=== PATIENT | male | born 1960 | race Caucasian/White ===

== ENCOUNTER 2022-06-30 08:18 | Outpatient (CLI) | payer MEDICARE, BC, SELFPAY ==
--- OUTSIDE RECORDS SUMMARY | 2022-06-30 08:23 | XMS_ITS | Clinical Summary ---
:1960 Author Organization [facility] [place] [address] Care Team Providers Name Role Phone Hang Carpenter Primary Care Provider Allergies Active Allergy Reactions Severity Noted Date Comments Venom-Honey Bee Angioedema High 02/28/2018 Penicillins *Unknown - Pt Doesn't Remember Medium 02/12/2018 Medications Medication Sig Dispensed Refills Start Date End Date Status lactulose 10 Take 10 g by mouth 0 02/12/2018 Active gram/15 mL once daily. Patient solutionIndications taking 1/2 doses 3-4 : constipation times per day Indications: constipation Catheter USE DIRECTED 0 07/22/2019 Act cecilio (SELF-CATHETER, FEMALE) 14 Fr multivitamin (MVI) Take 1 Tab by mouth. 0 Active tablet warfarin (COUMADIN) Take 1 tablet (5 mg) 0 9 Active 5 mg tablet PO daily on Mon, Wed, Fri; take 1/2 tablet (2.5 mg) on all other days and as directed by Anticoagulation clinic warfarin (COUMADIN) Take 2.5 mg by mouth. 0 Active 2.5 mg tablet oxyCODONE Take 1 tablet by 12 tablet 0 08/01/2019 Ac tive (ROXICODONE) 5 mg mouth every 6 hours immediate release if needed for Pain tabletIndications: Kidney stone oxybutynin Take 1 tablet by 30 tablet 0 08/01/2019 A ctive (DITROPAN) 5 mg mouth 3 times daily tabletIndications: if needed. Kidney stone citalopram (CELEXA) daily. Take 1/2 a day 0 08/11/20 19 Active 20 mg tablet for the first ten days and then one a day thereafter for depression Active Problems Not on file Social History Tobacco Use Types Packs/Day Years Used Date Former Smoker Quit: 07/31/19 89 Smokeless Tobacco: Current User Alcohol Use Standard Drinks/Week Comments No 0 (1 standard drink = 0.6 oz pure alcoho l) Sex Assigned at Date Recorded Not on file Obstetrics History Last Filed Vital Signs Vital Sign Reading Time Taken Comments Blood Pressure 110/70 09/11/2019 3:11 PM PIPE OR STEAM FITTER FURNACE INSTALLER Pulse 90 09/11/2019 3:11 PM PIPE OR STEAM FITTER FURNACE INSTALLER Temperature 36.1 ??C (97 ??F) 08/01/2019 2:02 PM CDT Respiratory Rate 15 09/11/2019 3:11 PM PIPE OR STEAM FITTER FURNACE INSTALLER Oxygen Saturation 95% 09/11/2019 3:11 PM PIPE OR STEAM FITTER FURNACE INSTALLER Inhaled Oxygen Concentration - - Weight 84.8 kg (187 lb) 09/11/2019 3:11 PM PIPE OR STEAM FITTER FURNACE INSTALLER hospital weight Height 180.3 cm (5' 11) 08/01/2019 9:30 AM CDT Body Mass Index 26.08 08/01/2019 9:30 AM CDT Plan of Treatment Health Maintenance Due Date Last Done Comments COVID-19 vaccine series (#1) 1960 Tdap 1969 Depression screening for age 12+ 1970 Hepatitis C screening for age 18-79 1976 Tetanus booster 1978 Colonoscopy through age 75 2003 Lipids for age 45-75 2003 Zoster (shingles) series for age 50+ (1 of 2) 2008 BMI (ht and wt on same day) for age 18+ 02/12/2019 02/13/20 18 Influenza for age 50-64 06/01/2022 Medical Devices Implanted Type Area Journal Clerk Device Shelf Model / Identifier Expiration Date Ser ial / Lot Stent Uret [id number] Percuflex Hydroplus - [id number] Right : [facility] 07/29/2020 [id number] / Implanted: Qty: 1 on 03/04/2018 by Jordi Piedra MD at [facility] Ureter / [id number] Stent Uret [id number] Percuflex Hydroplus - [id number] Right : [facility] 02/23/2022 [id number] / Implanted: Qty: 1 on 08/01/2019 by Jordi Piedra MD at [facility] / [id number] Results Not on filefrom Last 3 Months Insurance Payer Benefit Plan / Subscriber ID Effective Dates Phone Addre ss Type Group MEDICARE PART B MEDICARE PART B [id number] 2009-Present ATTN: CLAIMS - HB USE ONLY HB ONLY [address] [facility] [place] [address] MEDICARE PART A MEDICARE PART A [id number] 2009-Present ATTN: CLAIMS - HB USE ONLY HB ONLY [address] [facility] [place] [address] MEDICARE - PB MEDICARE PB ONLY [id number] 2018-Present ATTN: CLAIMS USE ONLY [address] [facility] [place] [address] BLUE CROSS BLUE CROSS OF [id number] 2020-Presen [address] [facility] [place] [address] Advance Directives Latest Code Status on File Code Status Date Activated Date Inactivated Comments Full Code 08/01/2019 9:15 AM 08/01/2019 5:21 PM Full Code 03/04/2018 5:50 AM 03/04/2018 1:54 PM Care Teams Press Operator Relationship Specialty Start Date End Date Hang Carpenter PCP - General Family Practice 09/01/[address] [place] [address]
--- OUTSIDE RECORDS SUMMARY | 2022-06-30 08:23 | XMS_ITS | Encounter Summary ---
:1960 Author Organization [facility] Address [address] [place] [address] Care Team Providers Name Role Phone Adarsh Carpenter MD Primary Care Provider Encounter Details Date Type Department Care Team Description 05/29/2022 Telephone SE Antico/Internal Medicine Adarsh Francis MD - Third Floor [address] [facility] [address] [address], [place] [address] [phone] (Wo rk) Social History Tobacco Use Types Packs/Day Years Used Date Never Smoker Smokeless Tobacco: Former User Alcohol Use Standard Drinks/Week Comments No 0 (1 standard drink = 0.6 oz pure alcoho l) Alcohol Habits Answer Date Recorded How often do you have a drink containing Never 04/24/2022 alcohol? How many drinks containing alcohol do you have Patient does not drink 04/24/2022 on a typical day when you are drinking? How often do you have six or more drinks on one Never 04/24/2022 occasion? Comment: Not asked Social Isolation Answer Date Recorded In a typical week, how many times do you More than three vianey es a week 04/24/2022 talk on the phone with family, friends, or neighbors? How often do you get together with friends Twice a week 04/24/2022 or relatives? How often do you attend jewish or 1 to 4 times per year 04/01 holiness services? Do you belong to any clubs or No 04/24/2022 organizations such as jewish groups, unions, fraternal or athletic groups, or school groups? How often do you attend meetings of the Never 04/24/2022 clubs or organizations you belong to? Are you now , , , 04/24/2022 , never or living with a partner? Physical Activity Answer Date Recorded On average, how many days per week do you engage in moderate to 0 days 04/24/2022 strenuous exercise (like walking fast, running, jogging, dancing, swimming, biking, or other activities that cause a light or heavy sweat)? On average, how many minutes do you engage in exercise at th is 0 min 04/24/2022 level? Stress Answer Date Recorded Do you feel stress - tense, restless, nervous, or anxious, N ot at all 04/24/2022 or unable to sleep at night because your mind is troubled all the time - these days? Financial Resource Strain Answer Date Recorded How hard is it for you to pay for the very basics like Not h brian at all 04/24/2022 food, housing, medical care, and heating? Intimate Partner Violence Answer Date Recorded Within the last year, have you been afraid of your partner o r No 04/24/2022 ex-partner? Within the last year, have you been humiliated or emotionall y No 04/24/2022 abused in other ways by your partner or ex-partner? Within the last year, have you been kicked, hit, slapped, or No 04/24/2022 otherwise physically hurt by your partner or ex-partner? Within the last year, have you been raped or forced to have any No 04/24/2022 kind of sexual activity by your partner or ex-partner? Food Insecurity Answer Date Recorded Within the past 12 months, you worried that your food would Never true 04/24/2022 run out before you got money to buy more. Within the past 12 months, the food you bought just didn't N ever true 04/24/2022 last and you didn't have money to get more. Transportation Needs Answer Date Recorded In the past 12 months, has lack of transportation kept you f rom No 04/24/2022 medical appointments or from getting medications? In the past 12 months, has lack of transportation kept you f rom No 04/24/2022 meetings, work, or getting things needed for daily living? Housing Stability Answer Date Recorded In the last 12 months, was there a time when you were not ab le No 04/24/2022 to pay the mortgage or rent on time? In the last 12 months, how many places have you lived? 1 04/24/2022 In the last 12 months, was there a time when you did not hav e a No 04/24/[address] or slept in a custodial (including now)? Sex Assigned at Date Recorded Not on file documented as of this encounter Miscellaneous Notes Telephone Encounter - Elli Campbell PA-C - 05/29/2022 2:57 PM CDT I agree with your plan including NOT bridging. Telephone Encounter - Esteban Plasencia RN - 05/29/2022 2:25 PM CDT Grace-procedural recommendations: Patient is anticoagulated with warfarin for, hx of PE (2018.) Patient is scheduled for a colonoscopyon 06/16/22 at [facility] which is considered a moderate to unknown bleed risk depending on the need for biopsy. 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 Anticoagulation can be resumed the evening of the procedure unless otherwise directed by surgeon. ACC will instruct patient to check INR day before or day of procedure. Last INR was 2.5 on 05/24/2022 Please approve/amend. Thank you. documented in this encounter Plan of Treatment Not on filedocumented as of this encounter Visit Diagnoses Not on filedocumented in this encounter Additional Health Concerns Infection Onset Date Last Indicated Resolved Time MSSA 10/04/2018 10/04/2018 06/28/2022 8:27 AM CDT documented as of this encounter Care Teams Food Service Worker Hospital Relationship Specialty Start Date End Date Adarsh Carpenter MD PCP - General 05/07/[address] [place] [address] documented as of this encounter
--- OUTSIDE RECORDS SUMMARY | 2022-06-30 08:23 | XMS_ITS | Encounter Summary ---
:1960 Author Organization [facility] Address [address] [place] [address] Care Team Providers Name Role Phone Adarsh Carpenter MD Primary Care Provider Reason for Visit Reason Comments Med Refill Encounter Details Date Type Department Care Team Description 05/08/2022 Refill [place] Adarsh Carpenter, Multiple sclerosis (HCC) [address] [place], [place] [address] [phone] [place] [address] Social History Tobacco Use Types Packs/Day Years [...] or relatives? How often do you attend restorationism or 1 to 4 times per year 04/01 islam services? Do you belong to any clubs or No 04/24/2022 organizations such as restorationism groups, unions, fraternal or athletic groups, or [...] place to sleep or slept in a fdc (including now)? Sex Assigned at Date Recorded Not on file documented as of this encounter Miscellaneous Notes Telephone Encounter - Alison Packer MA - 05/10/2022 6:13 AM CDT Last visit in provider department: 04/24/22 Last visit requested medication was discussed: 04/24/22 Last Rx: 12/01/20, #270, 3 refills Requested Prescriptions Pending Prescriptions Disp Refills ??? baclofen (LIORESAL) 10 MG tablet [Pharmacy Med Name: BACLOFEN 10MG TABS] 270 tablet 3 Sig: TAKE ONE TABLET BY MOUTH THREE TIMES A DAY FOR MULTIPLE SCLEROSIS Vitals: BP Readings from Last 2 Encounters: 04/24/22 114/78 04/24/22 114/78 Upcoming appointment with provider: Visit date not found documented in this encounter Plan of Treatment Not on filedocumented as of this encounter Visit Diagnoses Diagnosis Multiple sclerosis (HCC) Multiple sclerosis documented in this encounter Additional Health Concerns Infection Onset Date Last Indicated Resolved Time MSSA 10/04/2018 10/04/2018 06/28/2022 8:27 AM CDT documented as of this encounter Care Teams Trench Digger Helper Relationship Specialty Start Date End Date Adarsh Carpenter MD PCP - General 05/07/[address] [place] [address] documented as of this encounter
--- OUTSIDE RECORDS SUMMARY | 2022-06-30 08:23 | XMS_ITS | Encounter Summary ---
:1960 Author Organization [facility] Address [address] [place] [address] Care Team Providers Name Role Phone Adarsh Carpenter MD Primary Care Provider Reason for Visit Reason Onset Date Comments coumadin questions prior to colonoscopy 05/11/2022 Encounter Details Date Type Department Care Team Description 05/11/2022 Telephone [place] Adarsh Carpenter coumadin questions prior [address] MD Hang to colonoscopy [place], [place] [address] [address] [address] [place] [phone] [place] [address] Social History Tobacco Use Types Packs/Day Years [...] or relatives? How often do you attend congregational or 1 to 4 times per year 04/01 quaker services? Do you belong to any clubs or No 04/24/2022 organizations such as congregational groups, unions, fraternal or athletic groups, or [...] place to sleep or slept in a halfway (including now)? Sex Assigned at Date Recorded Not on file documented as of this encounter Miscellaneous Notes Telephone Encounter - Anna Betts RN - 05/12/2022 9:35 AM CDT ACC noted and thank you for the update. We will call with instructions closer to the hold date and have noted this in our procedure calendar. ANGEL Castillo RN Telephone Encounter - Sofia Densno RN - 05/12/2022 9:34 AM CDT Please see patient questions. Telephone Encounter - Adarsh Carpenter MD - 05/12/2022 7:57 AM CDT The patient is managed by [facility] should be managing his Coumadin. Please forward this message to them and let the patient's know that someone from [facility] should be contacting them or discussing with Coumadin management at the time of his colonoscopy. If they do not reach the patient then the should contact them for advice. Telephone Encounter - Sofia Denson RN - 05/11/2022 3:53 PM CDT Please advise on coumadin use for colonoscopy. Telephone Encounter - Lalitha Pathak - 05/11/2022 1:36 PM CDT , Nelia, stated pt has upcoming colonoscopy in Jun. Instructed to be off Coumadin x5 days prior to procedure, but to check w/PCP also for advice. [phone]. documented in this encounter Plan of Treatment Not on filedocumented as of this encounter Visit Diagnoses Not on filedocumented in this encounter Additional Health Concerns Infection Onset Date Last Indicated Resolved Time MSSA 10/04/2018 10/04/2018 06/28/2022 8:27 AM CDT documented as of this encounter Care Teams Moving Worker Relationship Specialty Start Date End Date Adarsh Carpenter MD PCP - General 05/07/[address] [place] [address] documented as of this encounter
--- OUTSIDE RECORDS SUMMARY | 2022-06-30 08:23 | XMS_ITS | Encounter Summary ---
:1960 Author Organization [facility] Address [address] [place] [address] Care Team Providers Name Role Phone Adarsh Carpenter MD Primary Care Provider Reason for Visit Reason Onset Date Comments Neurology Referral 05/25/2022 Encounter Details Date Type Department Care Team Description 05/25/2022 [place], Neurology Referral [address] [place], [place] [address] [phone] [place] [address] (Wo rk) Social History Tobacco Use Types [...] or relatives? How often do you attend baptist or 1 to 4 times per year 04/01 lutheran services? Do you belong to any clubs or No 04/24/2022 organizations such as baptist groups, unions, fraternal or athletic groups, or [...] place to sleep or slept in a care home (including now)? Sex Assigned at Date Recorded Not on file documented as of this encounter Miscellaneous Notes Telephone Encounter - Adarsh Carpenter MD - 05/29/2022 5:15 PM CDT I called and talked to the physical medicine department at [facility]. They are going to call the patient and schedule him. Hopefully this will move forward. Telephone Encounter - Corina Graham RN - 05/26/2022 3:40 PM CDT Nurse spoke with spouse, Nelia. Nelia was wondering why she hasn't heard from neurology so when she was getting something fixed on patient's wheelchair at [facility], they advised this: (PCP already knows this maybe?): [facility] has agreement with [facility] that [facility] PCP can directly order from [facility] PhysicalMedicine Department (not neurology) for power chair using diagnosis of Multiple Sclerosis and comments of Seating Clinic Only. Please advise. Telephone Encounter - Veronica Glez - 05/26/2022 12:02 PM CDT Pt's Nelia called back as she had not from anyone yet. Nelia wanted to correct the initial message. This a referral done through [facility] to [facility], Physical Medicine Dept. (not Neurology). The diagnosis is MS, and in the comment section she was told to say for seating clinic only. Nelia said thegal she talked with at [facility] was very specific about this. Pleas call Nelia at [phone] to advise. Telephone Encounter - Lalitha Pathak - 05/25/2022 10:47 AM CDT Spouse, Nelia, , inquiring about referral to [facility] regarding power chair. She made some calls to someone in [facility] and stated there is a [facility] in [facility] to create a referral, etc., and had some instructions; letter? Please advise. documented in this encounter Plan of Treatment Not on filedocumented as of this encounter Visit Diagnoses Not on filedocumented in this encounter Additional Health Concerns Infection Onset Date Last Indicated Resolved Time MSSA 10/04/2018 10/04/2018 06/28/2022 8:27 AM CDT documented as of this encounter Care Teams Machine Whitener Relationship Specialty Start Date End Date Adarsh Carpenter MD PCP - General 05/07/[address] [place] [address] documented as of this encounter
--- OUTSIDE RECORDS SUMMARY | 2022-06-30 08:23 | XMS_ITS | Encounter Summary ---
:1960 Author Organization [facility] Address [address] [place] [address] Care Team Providers Name Role Phone Adarsh Carpenter MD Primary Care Provider Encounter Details Date Type Department Care Team Description 05/24/2022 Anticoagulation - SE Esteban Plasencia, skilled nursing current use of anticoagulant (Primary Dx); Warfarin Visit Anticoag/Internal RN Other pulmonary embolism without acute c or pulmonale, unspecified chronicity (HCC) Medicine - Third [address] [place] [address] Social History Tobacco Use Types Packs/Day Years [...] or relatives? How often do you attend rastafari or 1 to 4 times per year 04/01 hindu services? Do you belong to any clubs or No 04/24/2022 organizations such as rastafari groups, unions, fraternal or athletic groups, or [...] place to sleep or slept in a mcc (including now)? Sex Assigned at Date Recorded Not on file documented as of this encounter Progress Notes Esteban Plasencia RN - 05/24/2022 11:56 AM CDT Anticoagulation Clinic INR RESULTS: INR (no units) Date Value 05/24/2022 2.50 (A) DOSE PLAN: 2 mg tuesdays and saturdays. 4 mg all other days DOSE CHANGE: No change NEXT INR: 06/07/22 INR results not reviewed with patient. INR is within patient's goal range and dosing instructions have not been changed. Pt is a home liz. documented in this encounter Plan of Treatment Not on filedocumented as of this encounter Procedures Procedure Name Priority Date/Time Associated Diagnosis Comme nts PROTIME-INR Routine 05/24/2022 Results for thi s procedure are in the resu lts section. documented in this encounter Results (ABNORMAL) Protime-INR (05/24/2022) P athologist Signature INR 2.50 (A) 0.9 - 1.1 [facility] [employer] Protime [facility] [employer] Specimen (Source) Anatomical Location Collection Method / Collectio n Time Received Time / Laterality Volume Blood (Blood, Venous) Historical Provider LAB BLOOD ORDERABLES Performing Organization Address City/State/ZIP Code Phon e Number [facility] [employer] [address] [place] [address] documented in this encounter Visit Diagnoses Diagnosis skilled nursing current use of anticoagulant - Primary Other pulmonary embolism without acute c or pulmonale, unspecified chronicity (HCC) documented in this encounter Additional Health Concerns Infection Onset Date Last Indicated Resolved Time MSSA 10/04/2018 10/04/2018 06/28/2022 8:27 AM CDT documented as of this encounter Care Teams Bilingual Office Assistant Relationship Specialty Start Date End Date Adarsh Carpenter MD PCP - General 05/07/[address] [place] [address] documented as of this encounter
--- OUTSIDE RECORDS SUMMARY | 2022-06-30 08:23 | XMS_ITS | Encounter Summary ---
:[address] [facility] Address [address] [place] [address] Care Team Providers Name Role Phone Adarsh Carpenter MD Primary Care Provider Encounter Details Date Type Department Care Team Description 06/27/2022 Orders Only [place] Adarsh Carpenter Multiple sclerosis [address] [place] ([facility]) (Primary Dx) [place], [place] [address] [facility] [address] [place] [address] Social History Tobacco Use Types Packs/Day Years [...] or relatives? How often do you attend synagogue or 1 to 4 times per year 04/01 christian services? Do you belong to any clubs or No 04/24/2022 organizations such as synagogue groups, unions, fraternal or athletic groups, or [...] place to sleep or slept in a long-term (including now)? Sex Assigned at Date Recorded Not on file documented as of this encounter Plan of Treatment Not on filedocumented as of this encounter Visit Diagnoses Diagnosis Multiple sclerosis (HCC) - Primary Multiple sclerosis documented in this encounter Additional Health Concerns Infection Onset Date Last Indicated Resolved Time MSSA 10/04/2018 10/04/2018 06/28/2022 8:27 AM CDT documented as of this encounter Care Teams Territory Sales Consultant Relationship Specialty Start Date End Date Adarsh Carpenter MD PCP - General 05/07/[address] [place] [address] documented as of this encounter
--- OUTSIDE RECORDS SUMMARY | 2022-06-30 08:23 | XMS_ITS | Encounter Summary ---
:[address] [facility] Address [address] [place] [address] Care Team Providers Name Role Phone Adarsh Carpenter MD Primary Care Provider Encounter Details Date Type Department Care Team Description 05/10/2022 Anticoagulation - [place], custodial current use of anticoagulant (Primary Dx); Warfarin Visit Anticoag/Gilberto Castillo RN Other pulmonary embolism without acute c or pulmonale, unspecified chronicity (HCC) Medicine - Third [address] [place] [id number] Social History Tobacco Use [...] or relatives? How often do you attend mandaeism or 1 to 4 times per year 04/01 denominational services? Do you belong to any clubs or No 04/24/2022 organizations such as mandaeism groups, unions, fraternal or athletic groups, or [...] documented as of this encounter Progress Notes Anna Betts RN - 05/10/2022 12:09 PM CDT Anticoagulation Clinic INR RESULTS: INR (no units) Date Value 05/10/2022 2.70 (A) DOSE PLAN: 2mg every Tue, Sat; 4mg all other days DOSE CHANGE: No change NEXT INR: 05/24/22 INR results not reviewed with patient. INR is within patient's goal range and dosing instructions have not been changed. Patient is a home liz. documented in this encounter Plan of Treatment Not on filedocumented as of this encounter Procedures Procedure Name Priority Date/Time Associated Diagnosis Comme nts PROTIME-INR Routine 05/10/2022 Results for thi s procedure are in the resu lts section. documented in this encounter Results (ABNORMAL) Protime-INR (05/10/2022) P athologist Signature INR 2.70 (A) 0.9 - 1.1 HOME HEALTH POINT OF CARE TESTING Protime HOME HEALTH POINT OF CARE TESTING Specimen (Source) Anatomical Location Collection Method / Collectio n Time Received Time / Laterality Volume Blood (Blood, Venous) Historical Provider LAB BLOOD ORDERABLES Performing Organization Address City/State/ZIP Code Phon e Number HOME HEALTH POINT OF CARE TESTING documented in this encounter Visit Diagnoses Diagnosis custodial current use of anticoagulant - Primary Other pulmonary embolism without acute c or pulmonale, unspecified chronicity (HCC) documented in this encounter Additional Health Concerns Infection Onset Date Last Indicated Resolved Time MSSA 10/04/2018 10/04/2018 06/28/2022 8:27 AM CDT documented as of this encounter Care Teams Audit Machine Operator Relationship Specialty Start Date End Date Adarsh Carpenter MD PCP - General 05/07/[address] [place] [address] documented as of this encounter
--- OUTSIDE RECORDS SUMMARY | 2022-06-30 08:23 | XMS_ITS | Encounter Summary ---
:1960 Author Organization [facility] Address [address] [place] [address] Care Team Providers Name Role Phone Adarsh Carpenter MD Primary Care Provider Encounter Details Date Type Department Care Team Description 06/27/2022 Orders Only [place] Adarsh Carpenter MD [address] [place], [place] [address] [place], [place] [phone] (Wo rk) Social History Tobacco Use Types [...] or relatives? How often do you attend anabaptism or 1 to 4 times per year 04/01 congregational services? Do you belong to any clubs or No 04/24/2022 organizations such as anabaptism groups, unions, fraternal or athletic groups, or [...] documented as of this encounter Care Teams Ski Edge Painter Relationship Specialty Start Date End Date Adarsh Carpenter MD PCP - General 05/07/[address] [place] [address] documented as of this encounter
--- OUTSIDE RECORDS SUMMARY | 2022-06-30 08:23 | XMS_ITS | Encounter Summary ---
:1960 Author Organization [facility] Address [address] [place] [address] Care Team Providers Name Role Phone Adarsh Carpneter MD Primary Care Provider Reason for Visit Reason Comments Pre-op Exam DOS 06-16-2022 Encounter Details Date Type Department Care Team Description 05/29/2022 Consult [place] Adarsh Carpenter, Preop examination [address] [facility] [address] (Primary Dx) [place], [place] [phone] [facility] [address] [place] [phone] [place] [address] Social History Tobacco Use Types Packs/Day Years [...] or relatives? How often do you attend gnosticism or 1 to 4 times per year 04/01 muslim services? Do you belong to any clubs or No 04/24/2022 organizations such as gnosticism groups, unions, fraternal or athletic groups, or [...] on file documented as of this encounter Last Filed Vital Signs Vital Sign Reading Time Taken Comments Blood Pressure 115/72 05/29/2022 10:41 AM CDT Pulse 93 05/29/2022 10:41 AM CDT Temperature 36.5 ??C (97.7 ??F) 05/29/2022 10:41 AM CDT Respiratory Rate 19 05/29/2022 10:41 AM CDT Oxygen Saturation 98% 05/29/2022 10:41 AM CDT Inhaled Oxygen Concentration - - Weight - - Height - - Body Mass Index - - documented in this encounter Progress Notes DLatanya Carpenter MD - 05/29/2022 10:40 AM CDT Subjective Patient ID: Dwain Hinds is a 62 y.o. male. HPI the patient is here today for a PREOPERATIVE EVALUATION prior to getting scheduled for colonoscopy evaluation. COVID-19 he has not contracted COVID-19 he has received the primary immunization and 1 booster shot. The patient otherwise has had no significant accidents injuries or illnesses in the last year or so.However he has contracted at least 2 different UTIs that have been treated. SMOKING quit more than 20+ years ago ALCOHOL quit more than 40 years ago ALLERGIES to penicillin as well as to bee stings. MEDICATIONS Lipitor 20 mg once daily Baclofen 10 mg tablet 3 times a day Ditropan 5 mg tablet twice daily Coumadin as adjusted per INR. MEDICAL HISTORY MULTIPLE SCLEROSIS for greater than 20 years. He became wheelchair dependent in 2015 after losing all motor function below the waist as well as some sensory changes. He has a neurogenic bladder needs to self catheterize 4 times per day. His upper trunk muscular core strength is significantly weakened. Left upper extremity has movement but With loss of muscle strength along with loss of staging technician strength and dexterity. Right upper extremity is the strongest between the 2 and is able to eat with his right upper extremity help assist with movement and dressing changes and he can operate a joystick on a motorized wheelchair without difficulty. He does have a hospital bed that goes up and down and the head of the bed can be raised as well. He has had a couple incidences of UTIs and sepsis requiring hospitalization. He has had episodes of bladder stones that required treatment. He has not had any significant pressure sores. He has not seen a neurologist for quite some time as his disease is basically a slowly progressive and medications previously were of minimal benefit. 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 Neurogenic bladder Family history of colon cancer Wheelchair dependent History of sepsis with recurrent UTIs History of kidney stone/bladder stones Some hearing loss History of depression not on current treatment History of previous pressure sores but not the last number of years Spastic paraparesis Paraplegia Risk factors for obstructive sleep apnea SURGICAL HISTORY Tonsils and adenoidectomy Left arm fracture requiring bone grafting History of colon polyps based on colonoscopy History of kidney stone bladder stone removal He has a torito in his left femur secondary to traumatic fracture SOCIAL HISTORY he has been since 1977 4 children 11 grandchildren. 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 FAMILY HISTORY his mother at age 89 COPD and there was a history of colon cancer. His father was age 69 from heart disease. 3 brothers 1 sister living COLON CANCER SCREENING is currently scheduled IMMUNIZATIONS he is up-to-date with Covid 19 vaccine and will get the next one when it is due. He gets the flu shots yearly and is encouraged to do so this year. His tetanus status and pneumonia vaccinations are up-to-date. They have declined currently the shingles vaccine because of cost related issues. PSA SCREENING is done routinely Eye examinations/dental checkups done routinely CHRONIC ANTICOAGULATION patient has a history of a DVT plus pulmonary embolus secondary to his immobilization. He has been on chronic anticoagulant therapy therapeutic INR is as home testing and is managed by [facility] coagulation clinic. We have contacted the clinic and they will manage his Coumadin pre and post colonoscopy procedure. OBSTRUCTIVE SLEEP APNEA patient is high risk for obstructive sleep apnea though he does not tend to snore because he is generally sleeps in about a 30 degree upright position. Still recommend being checked for sleep apnea at some point in the future. RECURRENT UTIS AND SEPSIS have been noted he has had at least 2 culture proven infections that were sensitive to medications within the last 6 months. I believe is been approximately 2 years since he is been hospitalized for sepsis. MOTORIZED WHEELCHAIR the patient is dependent upon a motorized wheelchair to help more with his independence move around his home as well as outside the home. He has been operating 1 for a good 6 years. He has had no accidents or any particular issues with operation of his wheelchair. However his current wheelchair seems to be probably having a mechanical problem he has been told that because of the clicking sensation or sound that is happening from one of the motors that it will need to be replacedin a short period of time With his diagnosis of MS and with his current ability to continue to operate a motorized wheelchair safely he should be able to qualify from Medicare for replacement motorized wheelchair. We will work with the patient in getting this hopefully qualified for him. Review of Systems his current review of systems shows is not having problems with significant medical issues other than his underlying diagnosis. His hearing is decreased but not significant that requires hearing aids at this time. He should get scheduled for an eye evaluation within the next period of time. No recent fevers chills coughs or colds no shortness of breath or chest pain no nausea or throwing up no appetite disturbance Does periodically have a history of constipation that is responsive to medical management. No significant aches or pains lumps or bumps or skin changes Objective Physical Exam is alert appears comfortable answers questions appropriately. Blood pressure 115/72 Pulse 90 regular rate and rhythm Temp is 97.9 Weight was not measured today his last weight was about 186 pounds O2 sats 98% Ears were clear free of erythema cerumen Pupils equal reactive conjunctiva clear Tongue is moist throat is clear dentition okay His oral cavity is somewhat obstructed by his tongue Neck no adenopathy or thyromegaly carotid bruits or masses Lungs are clear without any wheeze rales or rhonchi Cardiac is regular rate and rhythm without heart murmur Abdomen soft nontender bowel tones present no apparent masses Extremities have minimal edema at this time No labs are needed at this time. Assessment/Plan Diagnoses and all orders for this visit: Preop examination The overall assessment is preoperative evaluation prior to elective colonoscopy procedure. His colonoscopy team in [place] other ones were prescribing his preparation and the prep sheet has been given to him previously. [facility] has been contacted and they will manage his INR's his Coumadin and his Lovenox treatmentas he will need to come off his Coumadin prior to the procedure but resume postprocedure. PHYSICAL MEDICINE[facility] at [facility] contacted and they will work with the patient to get him set up for evaluation for a new wheelchair. The patient is given SURGICAL CLEARANCE to have his colonoscopy procedure done under anesthesia of choice. Corina Graham RN - 05/29/2022 10:40 AM CDT Please fax per PCP request to [facility]. Lalitha Pathak - 05/29/2022 10:40 AM CDT Faxed to [facility] referral line, pre-op evaluation for colonoscopy documented in this encounter Plan of Treatment Not on filedocumented as of this encounter Visit Diagnoses Diagnosis Preop examination - Primary Unspecified pre-operative examination documented in this encounter Additional Health Concerns Infection Onset Date Last Indicated Resolved Time MSSA 10/04/2018 10/04/2018 06/28/2022 8:27 AM CDT documented as of this encounter Care Teams Optometric Aide Relationship Specialty Start Date End Date Adarsh Carpenter MD PCP - General 05/07/[address] [place] [address] documented as of this encounter
--- OUTSIDE RECORDS SUMMARY | 2022-06-30 08:23 | XMS_ITS | Encounter Summary ---
:1960 Author Organization [facility] Address [address] [place] [address] Care Team Providers Name Role Phone Adarsh Carpenter MD Primary Care Provider Reason for Visit Reason Onset Date Comments uti protocol 05/01/2022 Encounter Details Date Type Department Care Team Description 05/01/2022 Telephone [place] Adarsh Carpenter MD uti protocol [address] [place], [place] [address] [place], [place] [phone] (Wo rk) Social History Tobacco Use Types [...] or relatives? How often do you attend confucianism or 1 to 4 times per year 04/01 yarsani services? Do you belong to any clubs or No 04/24/2022 organizations such as confucianism groups, unions, fraternal or athletic groups, or [...] this encounter Miscellaneous Notes Telephone Encounter - Lalitha Pathak - 05/01/2022 4:47 PM CDT Spouse called back; bringing in urine sample around 9:30 on 05.02.22; on lab schedule. Telephone Encounter - Laltiha Pathak - 05/01/2022 3:27 PM CDT LMTCB to make lab appt only. Telephone Encounter - Sofia Denson RN - 05/01/2022 3:07 PM CDT Please call to schedule lab only. Dr. Carpenter will call with results. Telephone Encounter - Adarsh Carpenter MD - 05/01/2022 2:53 PM CDT Orders have been placed for both a UC and UA. Telephone Encounter - Sofia Denson RN - 05/01/2022 2:07 PM CDT Patient is male and unable to do UTI protocol, please advise on symptoms. Telephone Encounter - Mabel Loomis - 05/01/2022 12:38 PM CDT Pt's Spouse Nelia is requesting to see if the pt could bring a sample in tomorrow. Pt is having a foulorder with his urine, and cloudiness. This has been going on for a few days. Please call her back [phone]. Thanks. documented in this encounter Plan of Treatment Not on filedocumented as of this encounter Results Urine culture (05/02/2022 9:16 AM CDT) SaltStack Method Time Signature Urine Culture Mixed 05/03/2022 [place], no 7:33 AM CDT [facility] further ID. LABORATORY Specimen Anatomical Collection Method Collection Time Receive d Time (Source) Location / / Volume Laterality Urine (Urine, 05/02/2022 9:16 AM 05/02/20 22 Clean Catch) CDT 12:34 PM CDT Comment: URINE Narrative [facility] - 11/2021 7:34 AM CDT Patient does not have an Amoxicillin or PCN allergy D. Hang Carpenter MD LAB MICROBIOLOGY - GENERAL O RDERABLES Performing Organization Address City/State/ZIP Code Phon e Number [facility] [address] [place] [phone] (ABNORMAL) Urinalysis with reflex microscopic (05/02/2022 9:16 AM CDT) SaltStack Method Time Signature Type CLEAN CATCH 05/02/2022 [facility] 9:53 AM CDT [place] Color, Urine YELLOW YELLOW 05/02/2022 [facility] 9:53 AM CDT [place] Clarity, CLOUDY (A) CLEAR 05/02/2022 [facility] Urine 9:53 AM CDT [place] Glucose, NEGATIVE NEGATIVE 05/02/2022 [facility] Urine mg/dL 9:53 AM CDT [place] Bilirubin, NEGATIVE NEGATIVE 05/02/2022 [facility] Urine 9:53 AM CDT [place] Ketones, NEGATIVE NEGATIVE 05/02/2022 [facility] Urine mg/dL 9:53 AM CDT [place] Specific 1.020 1.000 05/02/2022 [facility] [place], ->=1.030 9:53 AM CDT [place] Urine Blood, Urine TRACE (A) NEGATIVE 05/02/2022 [facility] 9:53 AM CDT [place] pH, Urine 7.0 5.0 - 7.0 05/02/2022 [facility] 9:53 AM CDT [place] Protein, NEGATIVE NEGATIVE-TRA 05/02/2022 [facility] Urine CE mg/dL 9:53 AM CDT [place] Urobilinogen, 1.0 0.2 - 1.0 05/02/2022 [facility] Urine E.U./dL 9:53 AM CDT [place] Nitrite, NEGATIVE NEGATIVE 05/02/2022 [facility] Urine 9:53 AM CDT [place] Leukocytes, SMALL (A) NEGATIVE 05/02/2022 [facility] Urine 9:53 AM CDT [place] Specimen Anatomical Collection Method Collection Time Receive d Time (Source) Location / / Volume Laterality Urine (Urine, 05/02/2022 9:16 AM 05/02/20 9:28 Clean Catch) CDT AM CDT D. Hang Carpenter MD LAB URINE ORDERABLES Performing Organization Address City/State/ZIP Code Phon e Number [facility] [address] [place] [id number] documented in this encounter Visit Diagnoses Diagnosis Neurogenic bladder - Primary Neurogenic bladder, NOS Foul smelling urine Neurogenic bladder Neurogenic bladder, NOS Foul smelling urine documented in this encounter Additional Health Concerns Infection Onset Date Last Indicated Resolved Time MSSA 10/04/2018 10/04/2018 06/28/2022 8:27 AM CDT documented as of this encounter Care Teams Etiquette Teacher Relationship Specialty Start Date End Date Adarsh Carpenter MD PCP - General 05/07/[address] [place] [address] documented as of this encounter
--- OUTSIDE RECORDS SUMMARY | 2022-06-30 08:23 | XMS_ITS | Encounter Summary ---
:1960 Author Organization [facility] Address [address] [place] [address] Care Team Providers Name Role Phone Adarsh Carpenter MD Primary Care Provider Reason for Visit Reason Onset Date Comments Cipro script not working 06/20/2022 Encounter Details Date Type Department Care Team Description 06/20/2022 Telephone [place] Adarsh Carpenter Cipro script not working [address] [place], [place] [address] [phone] [place] [address] Social History Tobacco Use Types Packs/Day Years [...] or relatives? How often do you attend jainism or 1 to 4 times per year 04/01 muslim services? Do you belong to any clubs or No 04/24/2022 organizations such as jainism groups, unions, fraternal or athletic groups, or [...] Telephone Encounter - Adarsh Carpenter MD - 06/20/2022 5:06 PM CDT Noted Telephone Encounter - Corina Graham RN - 06/20/2022 4:41 PM CDT Patient states she needs a [id number] with PCP due to Seating clinic request (they were there today). Will bring in old referral notes and the details need to be super specific for this next referral. Call transferred to front desk manager and appointment was made. Telephone Encounter - Adarsh Carpenter MD - 06/20/2022 1:42 PM CDT Let Nelia know that I have sent to [facility] [place] for the nystatin powder. Telephone Encounter - Alfa Schilling LPN - 06/20/2022 1:30 PM CDT Please advise Telephone Encounter - Lalitha Pathak - 06/20/2022 1:02 PM CDT Pt's stating Cipro recently prescribed is making groin area red and irritated. Could Nystatin Powder be prescribed through [facility]. [phone] or [phone]. documented in this encounter Plan of Treatment Not on filedocumented as of this encounter Visit Diagnoses Diagnosis Yeast infection - Primary documented in this encounter Additional Health Concerns Infection Onset Date Last Indicated Resolved Time MSSA 10/04/2018 10/04/2018 06/28/2022 8:27 AM CDT documented as of this encounter Care Teams Software Validation Technician Relationship Specialty Start Date End Date Adarsh Carpenter MD PCP - General 05/07/[address] [place] [address] documented as of this encounter
--- OUTSIDE RECORDS SUMMARY | 2022-06-30 08:23 | XMS_ITS | Clinical Summary ---
:1960 Author Organization [facility] Address [address] [place] [address] Care Team Providers Name Role Phone Adarsh Carpenter MD Primary Care Provider Allergies Active Allergy Reactions Severity Noted Date Comments Bee Venom Penicillin V Potassium Penicillins Medium 11/22/2016 Other reaction( s): *Unknown - Pt Doesn't Remembe r, Other (see comments) Delirium, quest ionable anaphylactic re action Medications Medication Sig Dispensed Refills Start End Status Date Date acetaminophen Take 500 mg by 0 A ctive (TYLENOL) 500 MG mouth if needed tablet Sennosides (SENNA May take one tab 180 each 3 10/16/19 Active LAXATIVE) 25 MG 1-2 times per day 20 tabletIndications: if needed for Constipation, constipation. unspecified constipation type Catheters USE DIRECTED 120 each 11 07/25/20 Acti ve (Self-Cath 21 Straight Tip) miscIndications: Neurogenic bladder atorvastatin Take 1 tablet (20 90 tablet 3 11/08/19 Active (Lipitor) 20 MG mg total) by mouth 22 023 tabletIndications: every night Start Mixed with 0.5 tab x8 hyperlipidemia days then 1 tab nightly oxybutynin TAKE ONE TABLET BY 180 tablet 3 02/14/20 Active (DITROPAN) 5 MG MOUTH TWICE A DAY 22 tabletIndications: Detrusor instability baclofen TAKE ONE TABLET BY 270 tablet 3 05/10/20 Active (LIORESAL) 10 MG MOUTH THREE TIMES 22 tabletIndications: A DAY FOR MULTIPLE Multiple sclerosis SCLEROSIS (HCC) nystatin Apply topically 2 15 g 0 06/20/20 Ac tive (MYCOSTATIN) (two) times a day 22 023 190552 UNIT/GM powderIndications: Yeast infection warfarin Take by mouth 154 tablet 3 06/21/20 Activ e (Coumadin) 2.5 MG 2.5mg (one tablet) 22 tabletIndications: every Tue, Sat; exterminator termite current 5mg (2 tablets) use of all other days and anticoagulant, as directed by Other pulmonary Anticoagulation embolism without Clinic. acute cor pulmonale, unspecified chronicity ([facility]) CIPROFLOXACIN HCL Take by mouth 0 Active PO Lactobacillus Take by mouth 0 Ac tive (Acidophilus Probiotic) tablet warfarin Take 1 tablet (5 60 tablet 3 06/03/20 Dis continued (COUMADIN) 5 MG mg) PO daily on (Dose tabletIndications: Mon, Wed, Sun; Adjustment) Other pulmonary take 1/2 tablet embolism without (2.5 mg) on all acute cor other days and as pulmonale, directed by unspecified Anticoagulation chronicity ([facility]) clinic warfarin Take by mouth 2 mg 155 tablet 3 10/28/19 Discontinued (COUMADIN) 2 MG Tue, Sat; 4 mg all (Dose tabletIndications: other days AND as Adjustment) Other pulmonary directed by embolism without Anticoag Clinic acute cor pulmonale, unspecified chronicity ([facility]) Active Problems Problem Noted Date Hyperlipidemia LDL goal <100 11/03/2021 Overview: 10yr ASCVD risk calculator 14.4%. Dry skin dermatitis 11/03/2021 Overview: Discussed use of cerave cream on moist s kin after showering. 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 Multiple sclerosis 10/19/2004 Encounters Date Type Specialty Care Team Description 06/29/2022 Telephone [facility] Adarsh Walker Wheelchair MD Hang Evaluation 06/27/2022 Orders Only [facility] Adarsh Walker MD 06/27/2022 Orders Only [facility] Adarsh Walker Multiple scl erosis MD Hang (HCC) (Primary Dx) 06/21/2022 Office Visit [facility] Adarsh Walker Multiple scl erosis (HCC) (Primary Dx); MD Hang Mobility impair ed; Frequency of mi cturition; Urinary retenti on; Neurogenic blad ruben 06/21/2022 Anticoagulation - Internal Medicine Anna Betts, Ot er pulmonary embolism without acute cor pulmonale, unspecified chronicity (HCC) (Primary Dx); Warfarin Visit RN exterminator termite cur rent use of anticoagulant 06/20/2022 Telephone [facility] Adarsh Carpenter Cipro script diaz Mauricio MD working 06/13/2022 Telephone [facility] Adarsh Carpenter needing cath job Mauricio MD size 12 06/07/2022 Anticoagulation - Internal Medicine Esteban Plasencia, exterminator termite current use of anticoagulant (Primary Dx); Warfarin Visit RN Other pulmona ry embolism without acute cor pulmonale, unspecified chronicity (HCC) 05/29/2022 Consult [facility] Adarsh Walker Preop kt Mauricio MD (Primary Dx) 05/29/2022 Anticoagulation - Internal Medicine Esteban Plasencia, exterminator termite current use of anticoagulant (Primary Dx); Warfarin Visit RN Other pulmona ry embolism without acute cor pulmonale, unspecified chronicity (HCC) 05/29/2022 Telephone Internal Medicine Adarsh Carpenter MD 05/25/2022 Telephone [facility] Adarsh Carpenter Neurology Re mickie Mauricio MD 05/24/2022 Anticoagulation - Internal Medicine Esteban Plasencia, [facility] current use of anticoagulant (Primary Dx); Warfarin Visit RN Other pulmona ry embolism without acute cor pulmonale, unspecified chronicity (HCC) 05/11/2022 Telephone [facility] Adarsh Walker coumadin suzanne Mauricio MD prior to colono scopy 05/10/2022 Anticoagulation - Internal Medicine Anna Betts Lon g term current use of anticoagulant (Primary Dx); Warfarin Visit RN Other pulmona ry embolism without acute cor pulmonale, unspecified chronicity ([facility]) 05/08/2022 Refill [facility] Adarsh Walker Multiple scl erosis MD Hang ([facility]) 05/02/2022 Lab [facility] Medicine Neurogenic b ladder; Foul smelling u rine 05/01/2022 Telephone [facility] Adarsh Walker uti protocol MD Hang 04/26/2022 Anticoagulation - Internal Medicine Anna Betts Lon g term current use of anticoagulant (Primary Dx); Warfarin Visit RN Other pulmona ry embolism without acute cor pulmonale, unspecified chronicity ([facility]) 04/25/2022 Telephone [facility] Adarsh Walker MD 04/24/2022 Clinical Support Family Medicine Medicare annual wellness visit, subsequent; Advanced direct amanda, counseling/discussion 04/24/2022 Office Visit [facility] Adarsh Walker Colon cancer screening (Primary Dx); MD Hang Multiple sclero sis ([facility]); Wheelchair depe ndent; Neurogenic blad ruben; Family history of colon cancer; History of pulm onary embolus (PE); [facility] curre nt use of anticoagulant 04/19/2022 Telephone [facility] Adarsh Walker High Risk AC O MD Hang 04/12/2022 Anticoagulation - Internal Medicine Dolores Cleary, [facility] current Warfarin Visit RN use of antico agulant (Primary Dx) 04/04/2022 Telephone [facility] Adarsh Walker update MD Hang 04/04/2022 Orders Only [facility] Adarsh Walker MD 04/02/2022 Orders Only Family Medicine Wade Donovan Cystitis MD Manpreet 04/02/2022 Orders Only Family Medicine Wade Donovan Frequency of micturition (Primary Dx); MD Manpreet Cystitis 04/02/2022 Orders Only [facility] Adarsh Walker MD from Last 3 Months Immunizations Name Administration Dates Next Due COVID-19, mRNA, LNP-S, PF, 30mcg/0.3mL 12/29/2020, 1 dose Pfizer Flu Vaccine 50-64yrs Flublok (Egg 07/12/2020 Free) Flu Vaccine High Dose 65yrs and Older 08/01/2017 IM INFLUENZA QUADRIVALENT MDV (IM) 07/29/2015 Influenza 6mo-49yrs Quad Preservative 06/24/2021, 08/27/2017 , 07/11/2016, Free IM 07/29/2015 Influenza Split 11/03/2009 Influenza TIV (IM) 08/06/2014 Influenza, Unspecified 08/01/2017, 07/11/2016, 07/29/2015, 01/31/2013 (Deferred: Patient Refused), 11/03/2009 Pneumococcal Conjugate 13-Valent 08/27/2017 Pneumococcal Polysaccharide 08/06/2014 Tdap 02/26/2014, 11/03/2002 Family History Medical History Relation Comments defects Brother 3 Mental retardation Heart attack Father COPD Mother Colon cancer Mother Pulmonary embolism Mother Depression Son 1 Hyperlipidemia Son 1 Depression Son 2 Relation Status Comments Brother 1 Alive Brother 2 Alive Brother 3 Daughter 1 Alive Daughter 2 Alive Father (Age 74) Mother (Age 89) Sister Alive Son 1 Alive Son 2 Alive Social History Tobacco Use Types Packs/Day Years [...] or relatives? How often do you attend faith or 1 to 4 times per year 04/01 adventism services? Do you belong to any clubs or No 04/24/2022 organizations such as faith groups, unions, fraternal or athletic groups, or [...] place to sleep or slept in a usp (including now)? Sex Assigned at Date Recorded Not on file Last Filed Vital Signs Vital Sign Reading Time Taken Comments Blood Pressure 102/70 06/21/2022 1:53 PM CDT Pulse 94 06/21/2022 1:53 PM CDT Temperature 36.4 ??C (97.5 ??F) 06/21/2022 1:53 PM CDT Respiratory Rate 20 06/21/2022 1:53 PM CDT Oxygen Saturation 94% 06/21/2022 1:53 PM CDT Inhaled Oxygen Concentration - - Weight 84.8 kg (186 lb 15.2 oz) 08/11/2019 3:23 PM ANIMAL TREATMENT INVESTIGATOR Height 185.4 cm (6' 0.99) 08/11/2019 3:23 PM ANIMAL TREATMENT INVESTIGATOR Body Mass Index 24.67 08/11/2019 3:23 PM ANIMAL TREATMENT INVESTIGATOR Plan of Treatment Health Maintenance Due Date Last Done Comments CT Colonography 1960 FIT-DNA 1960 Sigmoidoscopy 1960 iFOBT 1960 Zoster Vaccines (1 of 2) 1977 Pneumococcal Vaccine: 08/06/2019 08/27/2017, Pediatrics (0 to 5 Years) and 08/06/2014 At-Risk Patients (6 to 64 Years) (3 - PPSV23 or PCV20) Colonoscopy 11/22/2021 11/22/2016 Colorectal Cancer Screening 11/22/2021 COVID-19 Vaccine (4 - Booster 01/08/2022 09/09/2021, for Pfizer series) 12/29/2020, 12/08/2020 [facility] [place] Wellness 04/24/2023 04/24/2022, 08/11/2019, 03/06/2018 HPV Vaccines Aged Out No longer eligib le based on patient's age to complete this to pic Procedures Procedure Name Priority Date/Time Associated Comments Diagnosis PROTIME-INR Routine 06/21/2022 Results for thi s procedure are i n the results section. PROTIME-INR Routine 06/07/2022 Results for thi s procedure are i n the results section. PROTIME-INR Routine 05/24/2022 Results for thi s procedure are i n the results section. PROTIME-INR Routine 05/10/2022 Results for thi s procedure are i n the results section. URINALYSIS-MICROSCOPI Routine 05/02/2022 9:16 AM Neuroge madison bladder Results for this C EXAM (REFLEXED) CDT Foul smelling urine pro cedure are in the results section. URINALYSIS WITH Routine 05/02/2022 9:16 AM Neurogenic bl adder Results for this REFLEX MICROSCOPIC CDT Foul smelling urine pr ocedure are in the results section. URINE CULTURE Routine 05/02/2022 9:16 AM Neurogenic bl adder Results for this CDT Foul smelling urine procedur e are in the results section. PROTIME-INR Routine 04/26/2022 Results for thi s procedure are i n the results section. PROTIME-INR Routine 04/12/2022 Results for thi s procedure are i n the results section. from Last 3 Months Results (ABNORMAL) Protime-INR (06/21/2022)Only the most recent of6 resultswithin the time period is included. P athologist Signature INR 2.40 (A) 0.9 - 1.1 HOME HEALTH POINT OF CARE TESTING Protime HOME HEALTH POINT OF CARE TESTING Specimen (Source) Anatomical Location Collection Method / Collectio n Time Received Time / Laterality Volume Blood (Blood, Venous) Historical Provider LAB BLOOD ORDERABLES Performing Organization Address City/State/ZIP Code Phon e Number HOME HEALTH POINT OF CARE TESTING (ABNORMAL) Urinalysis-Microscopic Exam (05/02/2022 9:16 AM CDT) Patholo gist Method Time Signature Casts, urine NONE SEEN 0-2 Hyaline 05/02/2022 [place] /lpf 1:43 PM [facility] Significant NONE SEEN None Seen 05/02/2022 [place] casts, urine /lpf 1:43 PM [facility] RBC, Urine 0-3 0 - 3 /hpf 05/02/2022 [place] 1:43 PM [facility] WBC, Urine 4-10 (A) /hpf 05/02/2022 [place] 1:43 PM [facility] Comment: Male Ref Range ? 0-3/hpf Female Ref Range ?? 0-10/hpf Squamous Epithelial, FEW Few /lpf 05/02/2022 1:43 PM [facility] Trans Epithelial, NONE SEEN 0 - 3 /hpf 05/02/2022 1:43 PM [facility] Renal Tubular Cells, NONE SEEN 0 - 1 /hpf 05/02/2022 1:43 PM [facility] Bacteria, Urine 1+ (A) None Seen 05/02/2022 1:43 PM [facility] Miscellaneous, urine SEE BELOW 05/02/2022 1:43 PM [facility] Comment: 1+ ??Amorphous Urates. 1+ ??Calcium Oxalate Crystals Present. Specimen Anatomical Collection Method Collection Time Receive d Time (Source) Location / / Volume Laterality 05/02/2022 9:16 AM CDT 12:34 PM CDT D. Hang Carpenter MD LAB URINE ORDERABLES Performing Organization Address City/State/ZIP Code Phon e Number [facility] [address] [place] [id number] (ABNORMAL) Urinalysis with reflex microscopic (05/02/2022 9:16 AM CDT) [facility] Method Time Signature Type CLEAN CATCH 05/02/2022 [...] [place] Specific 1.020 1.000 05/02/2022 [facility] [place], ->=1.030 9:53 AM CDT [place] Urine Blood, Urine TRACE (A) NEGATIVE 05/02/2022 [facility] 9:53 AM CDT [place] pH, Urine 7.0 5.0 - 7.0 05/02/2022 [facility] 9:53 AM CDT [place] Protein, NEGATIVE NEGATIVE-TRA 05/02/2022 [facility] Urine CE mg/dL 9:53 AM CDT [place] Urobilinogen, 1.0 0.2 - 1.0 05/02/2022 [facility] Urine E.U./dL 9:53 AM CDT [place] Nitrite, NEGATIVE NEGATIVE 05/02/2022 [facility] Urine 9:53 AM CDT [place] Leukocytes, SMALL (A) NEGATIVE 05/02/2022 [facility] Urine 9:53 AM CDT [place] Specimen Anatomical Collection Method Collection Time Receive d Time (Source) Location / / Volume Laterality Urine (Urine, 05/02/2022 9:16 AM 05/02/20 9:28 Clean Catch) CDT AM CDT Adarsh Carpenter MD LAB URINE ORDERABLES Performing Organization Address City/State/ZIP Code Phon e Number [facility] [place] [address] [place] [address] Urine culture (05/02/2022 9:16 AM CDT) [facility] Method Time Signature Urine Culture Mixed 05/03/2022 [facility], no 7:33 AM CDT [facility] further ID. LABORATORY Specimen Anatomical Collection Method Collection Time Receive d Time (Source) Location / / Volume Laterality Urine (Urine, 05/02/2022 9:16 AM 05/02/20 22 Clean Catch) CDT 12:34 PM CDT Comment: URINE Narrative [facility] - 11/2021 7:34 AM CDT Patient does not have an Amoxicillin or PCN allergy Adarsh Carpenter MD LAB MICROBIOLOGY - GENERAL O RDERABLES Performing Organization Address City/State/ZIP Code Phon e Number [facility] [address] [place] [address] from Last 3 Months Insurance Payer Benefit Plan / Subscriber ID Effective Dates Phone Addre ss Type Group BCBS OF BCBS OF [id number] 2017-Presen [address] [address] [facility] [place] [address] MEDICARE MEDICARE [id number] 2009-Presen [address] [address] [place] [address] Advance Directives For more information, please contact: [phone] Documents on File Type Date Recorded Patient Visitor Information Assistant Explanati on POLST Order Form 11/14/2019 12:00 AM Care Teams Payroll Tax Analyst Relationship Specialty Start Date End Date Adarsh Carpenter MD PCP - General 05/07/[address] [place] [address]
--- OUTSIDE RECORDS SUMMARY | 2022-06-30 08:23 | XMS_ITS | Encounter Summary ---
:1960 Author Organization [facility] Address [address] [place] [address] Care Team Providers Name Role Phone Adarsh Carpenter MD Primary Care Provider Encounter Details Date Type Department Care Team Description 06/21/2022 Anticoagulation - [place], Other pulm onary embolism without acute cor pulmonale, unspecified chronicity (HCC) (Primary Dx); Warfarin Visit Anticoag/Gilberto Castillo RN intermodal customer service current use of anticoagulant Medicine - Third [address] [place] [id number] Social History Tobacco Use [...] or relatives? How often do you attend jehovah's witness or 1 to 4 times per year 04/01 temple services? Do you belong to any clubs or No 04/24/2022 organizations such as jehovah's witness groups, unions, fraternal or athletic groups, or [...] place to sleep or slept in a long term (including now)? Sex Assigned at Date Recorded Not on file documented as of this encounter Progress Notes Anna Betts RN - 06/21/2022 12:28 PM CDT Anticoagulation Clinic - RN INR RESULTS: INR (no units) Date Value 06/21/2022 2.40 (A) DOSE PLAN: Continue 2.5mg every Tue, Sat; 5mg all other days DOSE CHANGE: No change NEXT INR: 07/05/22 ACC received a fax from [facility] home [facility] and ACC noted change to dosing. ACC called and spoke to and she reported they were advised to take 2.5mg 3x/week but have been doing 2.5mg Tue, Sat; 5mgall other days. Being that patient is off ABX and has been taking this above dosing, ACC advised to c ontinue this dosing and recheck in 2 weeks. documented in this encounter Plan of Treatment Not on filedocumented as of this encounter Procedures Procedure Name Priority Date/Time Associated Diagnosis Comme nts PROTIME-INR Routine 06/21/2022 Results for thi s procedure are in the resu lts section. documented in this encounter Results (ABNORMAL) Protime-INR (06/21/2022) P athologist Signature INR 2.40 (A) 0.9 [...] documented in this encounter Visit Diagnoses Diagnosis Other pulmonary embolism without acute c or pulmonale, unspecified chronicity (HCC) - Primary intermodal customer service current use of anticoagulant documented in this encounter Additional Health Concerns Infection Onset Date Last Indicated Resolved Time MSSA 10/04/2018 10/04/2018 06/28/2022 8:27 AM CDT documented as of this encounter Care Teams Instrument Maker Relationship Specialty Start Date End Date Adarsh Carpenter MD PCP - General 05/07/[address] [place] [address] documented as of this encounter
--- OUTSIDE RECORDS SUMMARY | 2022-06-30 08:23 | XMS_ITS | Encounter Summary ---
:1960 Author Organization [facility] Address [address] [place] [address] Care Team Providers Name Role Phone Adarsh Carpenter MD Primary Care Provider Reason for Visit Reason Onset Date Comments Wheelchair Evaluation 06/29/2022 Encounter Details Date Type Department Care Team Description 06/29/2022 [place]phone [place], Wheelchair Evaluation [address] [place], [place] [address] [facility] [address] [phone] [place] [address] Social History Tobacco Use Types Packs/Day Years [...] or relatives? How often do you attend yarsanism or 1 to 4 times per year 04/01 anabaptism services? Do you belong to any clubs or No 04/24/2022 organizations such as yarsanism groups, unions, fraternal or athletic groups, or [...] place to sleep or slept in a chcf (including now)? Sex Assigned at Date Recorded Not on file documented as of this encounter Miscellaneous Notes Telephone Encounter - Adarsh Carpenter MD - 06/30/2022 7:52 AM CDT Noted Telephone Encounter - Corina Graham RN - 06/29/2022 5:59 PM CDT Spoke with Nelia to give her this information and she said she had gotten the same yesterday, that everything was in proper order. Wanted to let you know how much she appreciates you staying on top of all the paperwork. Much appreciated. Encouraged a call if something else is needed. Telephone Encounter - Corina Graham RN - 06/29/2022 2:15 PM CDT Spoke with Miriam Bal's counterpart at [facility], seating specialist. Mally reports her channel account manager looked at paperworked faxed to them two days ago and it appears to be in proper order. Nurse questioned the 7-element and Mally believes it will not need to be completed by PCP at this clinic. Telephone Encounter - Corina Graham RN - 06/29/2022 8:56 AM CDT Left message for Miriam, Seating and Plate Mill Hand at [facility] in [place] to return call to nurse in regards to the necessity of the 7-element order for DME, wheelchair for patient. PCP wants to know if order can be processed without. Very frustrated getting this completed. All other information and forms have been completed and faxed (06/27/22). documented in this encounter Plan of Treatment Not on filedocumented as of this encounter Visit Diagnoses Not on filedocumented in this encounter Care Teams Painter Aircraft Relationship Specialty Start Date End Date Adarsh Carpenter MD PCP - General 05/07/[address] [place] [address] documented as of this encounter
--- OUTSIDE RECORDS SUMMARY | 2022-06-30 08:23 | XMS_ITS | Encounter Summary ---
:[address] [facility] Address [address] [place] [address] Care Team Providers Name Role Phone Adarsh Carpenter MD Primary Care Provider Encounter Details Date Type Department Care Team Description 06/07/2022 Anticoagulation - SE Esteban Plasencia, equipment operator intermodal yard current use of anticoagulant (Primary Dx); Warfarin Visit Anticoag/Internal RN Other pulmonary embolism without acute c or pulmonale, unspecified chronicity (HCC) Medicine - Third [address] [place] [address] Social History Tobacco Use [...] or relatives? How often do you attend episcopalian or 1 to 4 times per year 04/01 holiness services? Do you belong to any clubs or No 04/24/2022 organizations such as episcopalian groups, unions, fraternal or athletic groups, or [...] encounter Progress Notes Esteban Plasencia RN - 06/07/2022 10:20 AM CDT Anticoagulation Clinic INR RESULTS: INR (no units) Date Value 06/07/2022 2.50 (A) DOSE PLAN: 2 mg tuesdays and saturdays. 4 mg all other days. DOSE CHANGE: Warfarin hold for upcoming colonscopy 06/11/22-06/15/22 NEXT INR: 06/15/22 INR results reviewed with the patient's , verbalized understanding of anticoagulation dose plan and date of next INR. AVS mailed to the patient. Esteban Plasencia RN - 06/07/2022 10:20 AM CDT Pt's called. Pt hospitalized in [place], [place]. states colonoscopy cancelled for 06/16/22. Ptwarfarin dosing per hospital : 2.5 mg tues/th/sat, 5 mg all other days. Pt returning to [place] and will home test on 06/21/22. documented in this encounter Plan of Treatment Not on filedocumented as of this encounter Procedures Procedure Name Priority Date/Time Associated Diagnosis Comme nts PROTIME-INR Routine 06/07/2022 Results for thi s procedure are in the resu lts section. documented in this encounter Results (ABNORMAL) Protime-INR (06/07/2022) P athologist Signature INR 2.50 (A) 0.9 - 1.1 [facility] Protime [facility] Specimen (Source) Anatomical Location Collection Method / Collectio n Time Received Time / Laterality Volume Blood (Blood, Venous) Historical Provider LAB BLOOD ORDERABLES Performing Organization Address City/State/ZIP Code Phon e Number [facility] [address] [place] [address] documented in this encounter Visit Diagnoses Diagnosis care home current use of anticoagulant - Primary Other pulmonary embolism without acute c or pulmonale, unspecified chronicity (HCC) documented in this encounter Additional Health Concerns Infection Onset Date Last Indicated Resolved Time MSSA 10/04/2018 10/04/2018 06/28/2022 8:27 AM CDT documented as of this encounter Care Teams Advisor To Command In Combat Relationship Specialty Start Date End Date Adarsh Carpenter MD PCP - General 05/07/[address] [place] [address] documented as of this encounter
--- OUTSIDE RECORDS SUMMARY | 2022-06-30 08:23 | XMS_ITS | Encounter Summary ---
:1960 Author Organization [facility] Address [address] [place] [address] Care Team Providers Name Role Phone Adarsh Carpenter MD Primary Care Provider Reason for Visit Reason Onset Date Comments needing catheters size 12 06/13/2022 Encounter Details Date Type Department Care Team Description 06/13/2022 Telephone [place]Adarsh Philip needing catheters size [address] MD [address] [place], [place] [address] [facility] [address] [place] [phone] [place] [address] Social History Tobacco Use Types Packs/Day Years [...] 1 to 4 times per year 04/01 hinduism services? Do you belong to any clubs [...] place to sleep or slept in a prison (including now)? Sex Assigned at Date Recorded Not on file documented as of this encounter Miscellaneous Notes Telephone Encounter - Corina Graham RN - 06/14/2022 12:53 PM CDT Noted. Telephone Encounter - Adarsh Carpenter MD - 06/14/2022 12:38 PM CDT I called and talked to Nelia. They were able to get some catheters from the hospital so they are okay for now. They will be starting to leave for home this afternoon. He will be taking Cipro for 10 days.After has been off Cipro for 3 to 5 days she will bring in a urine sample for culture orders have been placed. Telephone Encounter - Corina Graham RN - 06/13/2022 5:03 PM CDT Please advise. Name of pharmacy is [facility]. Would like at least 5 catheters. Telephone Encounter - Lalitha Pathak - 06/13/2022 4:51 PM CDT Pt's , Nelia, called, , stating pt was hospitalized in [place] where they are currently; will be discharged this afternoon. They are out of catheters and wanting to know if we could send a script to the [facility], fax [phone], for size 12 catheters. They would like to go home tomorrow; if don't have catheters, might have to wait another day. Advise. documented in this encounter Plan of Treatment Scheduled Orders Name Type Priority Associated Diagnoses Order S chedule Urine culture Microbiology Routine History of recur rent UTIs Expected: 06/14/2022, History of sepsis Expires: 0 06/14/2023 documented as of this encounter Visit Diagnoses Diagnosis History of recurrent UTIs - Primary History of sepsis Personal history of other infectious and parasitic disease documented in this encounter Additional Health Concerns Infection Onset Date Last Indicated Resolved Time MSSA 10/04/2018 10/04/2018 06/28/2022 8:27 AM CDT documented as of this encounter Care Teams Java Web Developer Relationship Specialty Start Date End Date Adarsh Carpenter MD PCP - General 05/07/[address] [place] [address] documented as of this encounter
--- OUTSIDE RECORDS SUMMARY | 2022-06-30 08:23 | XMS_ITS | Encounter Summary ---
:1960 Author Organization [facility] Address [address] [place] [address] Care Team Providers Name Role Phone Adarsh Carpenter MD Primary Care Provider Encounter Details Date Type Department Care Team Description 05/29/2022 Anticoagulation - SE Esteban Plasencia, care home current use of anticoagulant (Primary Dx); Warfarin Visit Anticoag/Internal RN Other pulmonary embolism without acute c or pulmonale, unspecified chronicity (HCC) Medicine - Third [address] [place] [id number] Social History Tobacco Use [...] or relatives? How often do you attend sabianism or 1 to 4 times per year 04/01 zoroastrian services? Do you belong to any clubs or No 04/24/2022 organizations such as sabianism groups, unions, fraternal or athletic groups, or [...] place to sleep or slept in a senior living (including now)? Sex Assigned at Date Recorded Not on file documented as of this encounter Progress Notes Esteban Plasencia RN - 05/29/2022 4:03 PM CDT Grace-procedural Instructions: WARFARIN Patient is having colonoscopy on 06/16/22 at [facility]. 1. Hold Warfarin for 5 days from 06/11/22 to 06/15/22. 2. Check INR the morning of procedure at [facility]. 3. Resume Warfarin the evening of 06/16/22 unless otherwise directed by proceduralist. Continue on maintenance dose 2 mg tuesdays and saturdays. 4 mg all other days. 4. Recheck INR again on 06/23/22 ( one week after resuming warfarin) 5. Call Anticoagulation clinic with any questions or concerns [phone]. Patient's Nelia verbalized understanding of above instruction and above information. 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
--- OUTSIDE RECORDS SUMMARY | 2022-06-30 08:23 | XMS_ITS | Encounter Summary ---
:1960 Author Organization [facility] Address [address] [place] [address] Care Team Providers Name Role Phone Adarsh Carpenter MD Primary Care Provider Encounter Details Date Type Department Care Team Description 05/02/2022 Lab [place] Neurogenic bladder; [address] Foul smelling urine [place], [place] [address] Social History Tobacco Use Types Packs/Day Years [...] or relatives? How often do you attend yazidism or 1 to 4 times per year 04/01 jew services? Do you belong to any clubs or No 04/24/2022 organizations such as yazidism groups, unions, fraternal or athletic groups, or [...] place to sleep or slept in a detention (including now)? Sex Assigned at Date Recorded Not on file documented as of this encounter Plan of Treatment Not on filedocumented as of this encounter Procedures Procedure Name Priority Date/Time Associated Comments Diagnosis URINALYSIS-MICROSCOPI Routine 05/02/2022 9:16 AM [facility] [...] procedur e are in the results section. documented in this encounter Results (ABNORMAL) Urinalysis-Microscopic Exam (05/02/2022 9:16 AM CDT) [facility] Method Time Signature Casts, urine NONE SEEN 0-2 Hyaline 05/02/2022 VIRGIL /lpf 1:43 PM [facility] Significant NONE SEEN None Seen 05/02/2022 VIRGIL casts, urine /lpf 1:43 PM [facility] RBC, Urine 0-3 0 - 3 /hpf 05/02/2022 SLATER 1:43 PM [facility] WBC, Urine 4-10 (A) /hpf 05/02/2022 [place]ATER 1:43 PM [facility] Comment: Male Ref Range ? 0-3/hpf Female Ref Range ?? 0-10/hpf Squamous Epithelial, FEW Few /lpf 05/02/2022 1:43 [facility] Trans Epithelial, NONE SEEN 0 - 3 /hpf 05/02/2022 1:43 PM [facility] Renal Tubular Cells, NONE SEEN 0 - 1 /hpf 05/02/2022 1:43 PM [facility] Bacteria, Urine 1+ (A) None Seen 05/02/2022 1:43 PM [facility] Miscellaneous, urine SEE BELOW 05/02/2022 1:43 PM [facility] Comment: 1+ ??Amorphous Urates. 1+ ??Calcium Oxalate Crystals Present. Specimen Anatomical Collection Method Collection Time Receive d Time (Source) Location / / Volume Laterality 05/02/2022 9:16 AM CDT 12:34 PM CDT Adarsh Carpenter MD LAB URINE ORDERABLES Performing Organization Address City/[facility]/ZIP Code Phon e Number [facility] [address] [place] [phone] Urine culture (05/02/2022 9:16 AM CDT) [email or web address] Method Time Signature Urine Culture Mixed 05/03/2022 SLATER Ambar, no 7:33 AM CDT [facility] further ID. LABORATORY Specimen Anatomical Collection Method Collection Time Receive d Time (Source) Location / / Volume Laterality Urine (Urine, 05/02/2022 9:16 AM 05/02/20 22 Clean Catch) CDT 12:34 PM CDT Comment: URINE Narrative [facility] - 11/2021 7:34 AM CDT Patient does not have an Amoxicillin or PCN allergy DLatanya Carpenter MD LAB MICROBIOLOGY - GENERAL O RDERABLES Performing Organization Address City/State/ZIP Code Phon e Number [facility] [address] [place] [phone] (ABNORMAL) Urinalysis with reflex microscopic (05/02/2022 9:16 AM CDT) [email or web address] Method Time Signature Type CLEAN CATCH 05/02/2022 [...] CDT [place] Ketones, NEGATIVE NEGATIVE 05/02/2022 [facility] Urine mg/dL 9:53 AM CDT [place] Specific 1.020 1.000 05/02/2022 [facility] [place], ->=1.030 9:53 AM CDT [place] Urine Blood, Urine TRACE (A) NEGATIVE 05/02/2022 [facility] 9:53 AM CDT [place] pH, Urine 7.0 5.0 - 7.0 05/02/2022 [facility] 9:53 AM CDT [place] Protein, NEGATIVE NEGATIVE-TRA 05/02/2022 [facility] Urine CE mg/dL 9:53 AM CDT [place] Urobilinogen, 1.0 0.2 - 1.0 05/02/2022 [facility] Urine E.U./dL 9:53 AM CDT [place] Nitrite, NEGATIVE NEGATIVE 05/02/2022 [facility] Urine 9:53 AM CDT [place] Leukocytes, SMALL (A) NEGATIVE 05/02/2022 [facility] Urine 9:53 AM CDT [place] Specimen Anatomical Collection Method Collection Time Receive d Time (Source) Location / / Volume Laterality Urine (Urine, 05/02/2022 9:16 AM 05/02/20 9:28 Clean Catch) CDT AM CDT Adarsh Carpenter MD LAB URINE ORDERABLES Performing Organization Address City/State/ZIP Code Phon e Number [facility] [address] [place] [address] documented in this encounter Visit Diagnoses Diagnosis Neurogenic bladder Neurogenic bladder, NOS Foul smelling urine documented in this encounter Additional Health Concerns Infection Onset Date Last Indicated Resolved Time MSSA 10/04/2018 10/04/2018 06/28/2022 8:27 AM CDT documented as of this encounter Care Teams Division Manager Relationship Specialty Start Date End Date Adarsh Carpenter MD PCP - General 05/07/[address] [place] [address] documented as of this encounter
--- OUTSIDE RECORDS SUMMARY | 2022-06-30 08:23 | XMS_ITS | Encounter Summary ---
:1960 Author Organization [facility] Address [address] [place] [address] Care Team Providers Name Role Phone Adarsh Carpenter MD Primary Care Provider Reason for Visit Reason Comments Follow-up [id number] for [facility] Encounter Details Date Type Department Care Team Description 06/21/2022 Office Visit Adarsh Weaver Multiple sclerosis (HCC) (Pr imary Dx); [address] MD Hang Mobility impaired; [place], [place] [address] Frequency of micturition; [phone] Joseph[place] Urinary retention; [place], [place] Neurogenic bladder [phone] Social History Tobacco Use Types Packs/Day Years [...] place to sleep or slept in a residential (including now)? Sex Assigned at Date Recorded [...] - documented in this encounter Progress Notes Adarsh Carpenter MD - 06/21/2022 2:00 PM CDT Subjective Patient ID: Dwain Hinds is a 62 y.o. male. HPI the patient is here today with his for A [id number] ASSESSMENT for his mobility impairment in order to qualify him for a new motorized wheelchair. The patient is our a 62-year-old gentleman who was diagnosed with MS in 2004. It gradually and slowly impaired his overall mobility essentially such that within the last 8+ years or so the patient has been dependent upon a motorized wheelchair to more efficiently help him move from room to room place to place. His current motorized wheelchair is probably close to 8+ years old and the motor is breaking down and its functional life is pretty short. As such he has been recently evaluated by the [facility] in [place] to get a new motorized wheelchair. The patient's impairments are multitude and include the following but are not limited to the following??? 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 He has actually no ability to stand on his own, no ability to move his legs no ability to walk with the help of any other device including??? He is unable to use a CANE because he has significant upper body weakness with pretty complete nonfunctioning use of left upper extremity. His right upper extremity is weak and impaired with strength mobility and client service coordinator and so forth however fortunately he is able to use his right upper extremity for manipulation of the joystick on a motorized wheelchair. He is unable to use CRUTCHES for the same reason because of impaired upper extremities and no use oflower extremities. HE IS UNABLE TO USE A WALKER secondary to the same impairment of both upper and lower extremities. He is unable to manipulate a STANDARD WHEELCHAIR because he has minimal use of his upper extremitiesand they are too weak to help function in moving a wheelchair. He is unable to use his legs to move a wheelchair because of the paralysis. As such the only means of good efficient personal transportation to assist both he and his is amotorized wheelchair. He has been fitted for this previously, he has been shown to be able to safelyuse a motorized wheelchair, he has sufficient right upper arm strength and dexterity to operate a joystick to self mobilize once he is in his motorized wheelchair. Review of Systems Objective Physical Exam is alert he appears comfortable and is currently sitting in his current motorized wheelchair. Blood pressure 112/78 pulse of 93 regular rate and rhythm temp is 36.4 current weight is approximately 186 pounds O2 sats 94% He is able to turn his head left right up and down but even that illustrates some weakness. He is able to shrug his shoulders though minimally right greater than left Left upper extremity shows minimal movement throughout the whole arm with just a little bit of ability to flex at the elbow but almost no ability for any functional use of the hand wrist finger area. Right upper extremity has a little better shoulder shrug he has ability to pick that arm up with an approximate 50% extension flexion at the elbow and shoulder area. He has reasonable good client service coordinator strength but certainly decreased. He can roll his forearm make a fist open his fingers such that he is able to operate a joystick. He is effectively completely paralyzed from the chest down. No use of either lower extremity at all Assessment/Plan Diagnoses and all orders for this visit: Multiple sclerosis (HCC) Mobility impaired Frequency of micturition - Urine culture; Future Urinary retention - Urine culture; Future Neurogenic bladder - Urine culture; Future The assessment is as stated and the plan at this time is to hopefully get him qualified for his new motorized wheelchair. documented in this encounter Plan of Treatment Scheduled Orders Name Type Priority Associated Diagnoses Order S chedule Urine culture Microbiology Routine Frequency of moe turition Expected: 06/22/2022, Urinary retentio n Expires: 06/22/2023 Neurogenic bladder documented as of this encounter Visit Diagnoses Diagnosis Multiple sclerosis (HCC) - Primary Multiple sclerosis Mobility impaired Other ill-defined conditions Frequency of micturition Urinary frequency Urinary retention Unspecified retention of urine Neurogenic bladder Neurogenic bladder, NOS documented in this encounter Additional Health Concerns Infection Onset Date Last Indicated Resolved Time MSSA 10/04/2018 10/04/2018 06/28/2022 8:27 AM CDT documented as of this encounter Care Teams Installer Soft Top Relationship Specialty Start Date End Date Adarsh Carpenter MD PCP - General 05/07/[address] [place] [address] documented as of this encounter
--- OUTSIDE RECORDS SUMMARY | 2022-06-30 08:24 | XMS_ITS | Encounter Summary ---
:[address] [facility] Address [address] [place] [address] Care Team Providers Name Role Phone Adarsh Carpenter MD Primary Care Provider Encounter Details Date Type Department Care Team Description 04/02/2022 Orders Only Thompson Wade Donovan MD Cystitis [address] [place], [place] [address] [place], [place] [phone] [address] (Wo rk) Social History Tobacco Use Types [...] or relatives? How often do you attend evangelical or 1 to 4 times per year 04/01 gnosticism services? Do you belong to any clubs or No 04/24/2022 organizations such as evangelical groups, unions, fraternal or athletic groups, or [...] place to sleep or slept in a fpc (including now)? Sex Assigned at Date Recorded Not on file documented as of this encounter Progress Notes Wade Donovan MD - 04/02/2022 1:59 PM CDT Diagnosis Plan 1. Cystitis nitrofurantoin, macrocrystal-monohydrate, (MACROBID) 100 MG capsule Resent to [facility] [place] per patient request. documented in this encounter Plan of Treatment Not on filedocumented as of this encounter Visit Diagnoses Diagnosis Cystitis Unspecified cystitis documented in this encounter Additional Health Concerns Infection Onset Date Last Indicated Resolved Time MSSA 10/04/2018 10/04/2018 06/28/2022 8:27 AM CDT documented as of this encounter Care Teams Cash Application Clerk Relationship Specialty Start Date End Date Adarsh Carpenter MD PCP - General 05/07/[address] [place] [address] documented as of this encounter
--- OUTSIDE RECORDS SUMMARY | 2022-06-30 08:24 | XMS_ITS | Encounter Summary ---
:[address] [facility] Address [address] [place] [address] Care Team Providers Name Role Phone Adarsh Carpenter MD Primary Care Provider Encounter Details Date Type Department Care Team Description 02/17/2022 [facility] Frequency of micturition [address] [place], [place] [address] Social History Tobacco Use [...] 1 to 4 times per year 04/01 methodist services? Do you belong to any clubs [...] place to sleep or slept in a assisted (including now)? Sex Assigned at Date Recorded Not on file documented as of this encounter Plan of Treatment Not on filedocumented as of this encounter Procedures Procedure Name Priority Date/Time Associated Diagnosis Comme nts URINALYSIS-MICROSCOP Routine 02/17/2022 1:55 PM Frequency of R esults for this IC EXAM (REFLEXED) CDT micturition procedure are in the results section. URINALYSIS WITH Routine 02/17/2022 1:55 PM Frequency of Result s for this REFLEX MICROSCOPIC CDT micturition procedure are in the results section. URINE CULTURE Routine 02/17/2022 1:55 PM Frequency of Results for this CDT micturition procedure are i n the results section. documented in this encounter Results (ABNORMAL) Urinalysis-Microscopic Exam (02/17/2022 1:55 PM CDT) [facility] gist Method Time Signature Casts, urine NONE SEEN 0-2 Hyaline 02/17/2022 VIRGIL /lpf 6:48 PM [facility] Significant NONE SEEN None Seen 02/17/2022 VIRGIL casts, urine /lpf 6:48 PM [facility] RBC, Urine NONE SEEN 0 - 3 /hpf 02/17/2022 [place] 6:48 PM [facility] WBC, Urine 11-20 (A) /hpf 02/17/2022 [place] 6:48 PM [facility] Comment: Male Ref Range ? 0-3/hpf Female Ref Range ?? 0-10/hpf Squamous Epithelial, FEW Few /lpf 02/17/2022 6:48 PM [facility] Urine T [facility]ENTER [facility] Trans Epithelial, 0-3 0 - 3 /hpf 02/17/2022 6:48 PM [facility] Urine CDT CENTER LAB[facility] Renal Tubular Cells, NONE SEEN 0 - 1 /hpf 02/17/2022 6:48 PM [facility] Urine T [facility]ENTER [facility] Bacteria, Urine FEW None Seen 02/17/2022 6:48 PM [facility] Miscellaneous, urine SEE BELOW 02/17/2022 6:[address] [facility] Comment: Rare Calcium Oxalate Crystals Present. Specimen Anatomical Collection Method Collection Time Receive d Time (Source) Location / / Volume Laterality 02/17/2022 1:55 PM 2 6:17 CDT PM CDT Adarsh Carpenter MD LAB URINE ORDERABLES Performing Organization Address [facility] Code Phon e Number [facility] [address] [place] [address] (ABNORMAL) Urine culture (02/17/2022 1:55 PM CDT) [facility] Method Time Signature Urine Culture Enterococcus faecalis 02/19/2022 OLM STED >100,000 cfu/ml 8:10 AM CDT MEDICAL Vancomycin ORLY = 2.0 ucg/ml CE NTER (A) LABORATORY Specimen Anatomical Collection Method Collection Time Receive d Time (Source) Location / / Volume Laterality Urine (Saenz 02/17/2022 1:55 PM 2 6:17 Out) CDT PM CDT Comment: URINE Narrative [facility] - 01/30 9:03 AM CDT Amoxicillin and PCN allergy Organism Antibiotic Method Susceptibility Enterococcus faecalis Ampicillin <=2 mcg/mL : Susceptible Enterococcus faecalis Ciprofloxacin <=1 mcg/mL : Susceptible Enterococcus faecalis Nitrofurantoin <=32 mcg/m L: Susceptible Enterococcus faecalis Penicillin 2 mcg/mL: Susceptible Enterococcus faecalis Vancomycin 2 mcg/mL: Susceptible Adarsh Carpenter MD LAB MICROBIOLOGY - GENERAL O RDERABLES Performing Organization Address City/[facility]/ZIP Code Phon e Number [facility] [address] [place] [address] (ABNORMAL) Urinalysis with reflex microscopic (02/17/2022 1:55 PM CDT) [facility] [employer] Method Time Signature Type CATH 02/17/2022 [facility] 2:03 PM CDT [place]S Color, Urine YELLOW YELLOW 02/17/2022 [facility] 2:03 PM CDT [place] Clarity, CLEAR CLEAR 02/17/2022 [facility] Urine 2:03 PM CDT [place] Glucose, NEGATIVE NEGATIVE 02/17/2022 [facility] Urine mg/dL 2:03 PM CDT [place] Bilirubin, NEGATIVE NEGATIVE 02/17/2022 [facility] Urine 2:03 PM CDT [place] Ketones, NEGATIVE NEGATIVE 02/17/2022 [facility] Urine mg/dL 2:03 PM CDT [place] Specific 1.020 1.000 02/17/2022 [facility] [place], ->=1.030 2:03 PM CDT [place] Urine Blood, Urine NEGATIVE NEGATIVE 02/17/2022 [facility] 2:03 PM CDT [place] pH, Urine 6.0 5.0 - 7.0 02/17/2022 [facility] 2:03 PM CDT [place] Protein, NEGATIVE NEGATIVE-TRA 02/17/2022 [facility] Urine CE mg/dL 2:03 PM CDT [place] Urobilinogen, 0.2 0.2 - 1.0 02/17/2022 [facility] Urine E.U./dL 2:03 PM CDT [place] Nitrite, NEGATIVE NEGATIVE 02/17/2022 C [facility] Urine 2:03 PM CDT [place] Leukocytes, MODERATE (A) NEGATIVE 02/17/2022 [facility] Urine 2:03 PM CDT [place] Specimen Anatomical Collection Method Collection Time Receive d Time (Source) Location / / Volume Laterality Urine (Urine, 02/17/2022 1:55 PM 02/18/20 1:56 Clean Catch) CDT PM CDT Adarsh Carpenter MD LAB URINE ORDERABLES Performing Organization Address City/State/ZIP Code Phon e Number [facility] [address] [place] [address] documented in this encounter Visit Diagnoses Diagnosis Frequency of micturition Urinary frequency documented in this encounter Additional Health Concerns Infection Onset Date Last Indicated Resolved Time MSSA 10/04/2018 10/04/2018 06/28/2022 8:27 AM CDT documented as of this encounter Care Teams Sheet Metal Assembler Relationship Specialty Start Date End Date Adarsh Carpenter MD PCP - General 05/07/[address] [place], [place] [address] documented as of this encounter
--- OUTSIDE RECORDS SUMMARY | 2022-06-30 08:24 | XMS_ITS | Encounter Summary ---
:1960 Author Organization [facility] Address [address] [place] [address] Care Team Providers Name Role Phone Adarsh Carpenter MD Primary Care Provider Encounter Details Date Type Department Care Team Description 11/10/2021 Anticoagulation - SE Terri Spivey 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 card tender current Warfarin Visit Anticoag/Internal J, RN use of anticoagulant Medicine - Third [address] ([address]x ) [address] [place] [address] [phone] Social History Tobacco Use Types Packs/Day Years [...] or relatives? How often do you attend buddhist or 1 to 4 times per year 04/01 congregation services? Do you belong to any clubs or No 04/24/2022 organizations such as buddhist groups, unions, fraternal or athletic groups, or [...] for the very basics like Not h brain at all 04/24/2022 food, housing, medical care, [...] documented as of this encounter Progress Notes Terri Spivey RN - 11/10/2021 1:57 PM CST Anticoagulation Clinic - RN Protocol Screening INR RESULTS: INR (no units) Date Value 11/10/2021 3.40 (A) DOSE PLAN: 2 mg every e, Sondra, Sat; 4 mg all other days DOSE CHANGE: Decreased by 8.3% (2 mg/week) NEXT INR: 11/24/21 VERIFY PREVIOUS DOSE PLAN Verified with the patient nurse Yates MISSED/EXTRA DOSES No MEDICATION CHANGES No DIET OR ALCOHOL CHANGES No RECENT ILLNESS/ HOSPITALIZATIONS No ABNORMAL BLEEDING OR BRUISING No, nurse Yates states that the patient has no signs or symptoms of abnormal bleeding or bruising andadvised to seek medical attention as warranted for abnormal bleeding and bruising. Nurse Yates will review Safety precaution with the patient. FALLS OR INJURIES No NEW PAIN SYMPTOMS No NEW SHORTNESS OF BREATH No NEW NEUROLOGICAL SYMPTOMS No INR results reviewed with the patient nurse Yates. She verbalized understanding of anticoagulation dose plan and date of next INR. AVS faxed to [facility]. 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 documented in this encounter Results (ABNORMAL) Protime-INR (11/10/2021) athologist Signature INR 3.40 (A) 0.9 - 1.1 [facility] [place] Comment: [facility] - POC Protime [facility] Specimen (Source) Anatomical Location Collection Method / Collectio n Time Received Time / Laterality Volume Blood (Blood, 11/10/2021 Venous) Historical Provider LAB BLOOD ORDERABLES Performing Organization Address City/State/ZIP Code Phon e Number [facility] [address] [place] [address] documented in this encounter Visit Diagnoses Diagnosis 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 card tender current use of anticoagulant - Primary documented in this encounter Additional Health Concerns Infection Onset Date Last Indicated Resolved Time MSSA 10/04/2018 10/04/2018 06/28/2022 8:27 AM CDT documented as of this encounter Care Teams Light Technician Relationship Specialty Start Date End Date Adarsh Carpenter MD PCP - General 05/07/[address] [place] [address] documented as of this encounter
--- OUTSIDE RECORDS SUMMARY | 2022-06-30 08:24 | XMS_ITS | Encounter Summary ---
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 How often do you attend zoroastrianism or 1 to 4 times per year 04/01 jainism services? Do you belong to any clubs or No 04/24/2022 organizations such as zoroastrianism groups, unions, fraternal or athletic groups, or [...] documented as of this encounter Progress Notes Dolores Cleary RN - 04/12/2022 12:35 PM CDT Anticoagulation Clinic INR RESULTS: INR (no units) Date Value 04/12/2022 2.30 (A) DOSE PLAN: 2 mg Tue, Sat; 4 mg all other days DOSE CHANGE: No change NEXT INR: 04/26/2022 INR results not reviewed with patient. INR is within patient's goal range and dosing instructions have not been changed. documented in this encounter Plan of Treatment Not on filedocumented as of this encounter Procedures Procedure Name Priority Date/Time Associated Diagnosis Comme nts PROTIME-INR Routine 04/12/2022 Results for thi s procedure are in the resu lts section. 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
--- OUTSIDE RECORDS SUMMARY | 2022-06-30 08:24 | XMS_ITS | Encounter Summary ---
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 How often do you attend latter day or 1 to 4 times per year 04/01 jew services? Do you belong to any clubs or No 04/24/2022 organizations such as latter day groups, unions, fraternal or athletic groups, or [...] encounter Progress Notes Anna Betts RN - 03/29/2022 1:56 PM CDT Anticoagulation Clinic INR RESULTS: INR (no units) Date Value 03/29/2022 3.00 (A) DOSE PLAN: 2mg every Tue, Sat; 4mg all other days DOSE CHANGE: No change NEXT INR: 04/12/22 INR results not reviewed with patient. INR is within patient's goal range and dosing instructions have not been changed. 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 documented in this encounter Plan of Treatment Not on filedocumented as of this encounter Procedures Procedure Name Priority Date/Time Associated Diagnosis Comme nts PROTIME-INR Routine 03/29/2022 Results for thi s procedure are in the resu lts section. 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 - Primary Other pulmonary embolism without acute c or pulmonale, unspecified chronicity (HCC) Pulmonary embolism, unspecified chronici ty, unspecified pulmonary embolism type, unspecified whether acute cor pulmonale present (HCC) documented in this encounter Additional Health Concerns Infection Onset Date Last Indicated Resolved Time MSSA 10/04/2018 10/04/2018 06/28/2022 8:27 AM CDT documented as of this encounter Care Teams Manager Outreach Relationship Specialty Start Date End Date Adarsh Carpenter MD PCP - General 05/07/[address] [place] [address] documented as of this encounter
--- OUTSIDE RECORDS SUMMARY | 2022-06-30 08:24 | XMS_ITS | Encounter Summary ---
:1960 Author Organization [facility] Address [address] [place] [address] Care Team Providers Name Role Phone Adarsh Carpenter MD Primary Care Provider Reason for Visit Reason Onset Date Comments UTI / antibiotic 02/17/2022 Encounter Details Date Type Department Care Team Description 02/17/2022 Telephone [place]arsh Philip, UTI / antibiotic [address] [place], [place] [address] [phone] [place] [address] (Wo rk) Social History Tobacco Use Types [...] or relatives? How often do you attend presybeterian or 1 to 4 times per year 04/01 worship services? Do you belong to any clubs or No 04/24/2022 organizations such as presybeterian groups, unions, fraternal or athletic groups, or [...] place to sleep or slept in a snf (including now)? Sex Assigned at Date Recorded Not on file documented as of this encounter Miscellaneous Notes Telephone Encounter - Sofia Denson RN - 02/20/2022 1:36 PM CDT Informed of result note. Telephone Encounter - Veronica Glez - 02/20/2022 12:35 PM CDT Pt's Nelia returned call to Sofia. Telephone Encounter - Sofia Denson RN - 02/17/2022 1:29 PM CDT Nelia informed, she was going to drop off the urine sample this afternoon and will picking belt operator the antibiotic. Telephone Encounter - Adarsh Carpenter MD - 02/17/2022 1:24 PM CDT I have placed orders for a UC and UA. [facility] also [facility] that shecan picking belt operator and he can start taking tonight. Once we get culture results back we will see what it might be sensitive to. Telephone Encounter - Sofia Denson RN - 02/17/2022 11:25 AM CDT Please advise. Telephone Encounter - Veronica Amaris - 02/17/2022 10:21 AM CDT Pt's Nelia stopped in with concerns of a UTI for Pt. She asked for and was given a urine cup. Sheis planning on bringing the sample back this afternoon. She is asking if an Rx could be sent to [facility]. Please call Pt at [phone] to advise. documented in this encounter Plan of Treatment Not on filedocumented as of this encounter Results (ABNORMAL) Urine culture (02/17/2022 1:55 PM CDT) [email or web address] Method Time Signature Urine Culture Enterococcus faecalis 02/19/2022 [facility] STED >100,000 cfu/ml 8:10 AM CDT MEDICAL Vancomycin ORLY = 2.0 ucg/ml [facility] (A) LABORATORY Specimen Anatomical Collection Method Collection Time Receive d Time (Source) Location / / Volume Laterality Urine (Saenz 02/17/2022 1:55 PM 6:17 Out) CDT PM CDT Comment: URINE Narrative [facility] - 01/30 9:03 AM CDT Amoxicillin [...] Organization Address City/State/ZIP Code Phon e Number [facility] [address] [place] [address] (ABNORMAL) Urinalysis with reflex microscopic (02/17/2022 1:55 PM CDT) [email or web address] Method Time Signature Type CATH 02/17/2022 [facility] [...] [place] Specific 1.020 1.000 02/17/2022 [facility] Blue, ->=1.030 2:03 PM CDT [place] Urine Blood, Urine NEGATIVE NEGATIVE 02/17/2022 [facility] 2:03 PM CDT [place] pH, Urine 6.0 5.0 - 7.0 02/17/2022 [facility] 2:03 PM CDT [place] Protein, NEGATIVE NEGATIVE-TRA 02/17/2022 [facility] Urine CE mg/dL 2:03 PM CDT [place] Urobilinogen, 0.2 0.2 - 1.0 02/17/2022 [facility] Urine E.U./dL 2:03 PM CDT [place] Nitrite, NEGATIVE NEGATIVE 02/17/2022 [facility] Urine 2:03 PM CDT [place] Leukocytes, MODERATE (A) NEGATIVE 02/17/2022 [facility] Urine 2:03 PM CDT [place] Specimen Anatomical Collection Method Collection Time Receive d Time (Source) Location / / Volume Laterality Urine (Urine, 02/17/2022 1:55 PM 02/18/20 1:56 Clean Catch) CDT PM CDT Adarsh Carpenter MD LAB URINE ORDERABLES Performing Organization Address City/State/ZIP Code Phon e Number [facility] [place] [address] [place] [address] documented in this encounter Visit Diagnoses Diagnosis Frequency of micturition - Primary Urinary frequency Frequency of micturition Urinary frequency documented in this encounter Additional Health Concerns Infection Onset Date Last Indicated Resolved Time MSSA 10/04/2018 10/04/2018 06/28/2022 8:27 AM CDT documented as of this encounter Care Teams Yarn Weight And Strength Tester Relationship Specialty Start Date End Date Adarsh Carpenter MD PCP - General 05/07/[address] [place] [address] documented as of this encounter
--- OUTSIDE RECORDS SUMMARY | 2022-06-30 08:24 | XMS_ITS | Encounter Summary ---
:1960 Author Organization [facility] Address [address] [place] [address] Care Team Providers Name Role Phone Adarsh Carpenter MD Primary Care Provider Encounter Details Date Type Department Care Team Description 04/25/2022 Telephone [place] Adarsh Carpenter MD [address] [place], [place] [address] [place], [place] [phone] [address] (Wo rk) Social History Tobacco Use Types [...] or relatives? How often do you attend jain or 1 to 4 times per year 04/01 restorationist services? Do you belong to any clubs or No 04/24/2022 organizations such as jain groups, unions, fraternal or athletic groups, or [...] place to sleep or slept in a alf (including now)? Sex Assigned at Date Recorded Not on file documented as of this encounter Miscellaneous Notes Telephone Encounter - Lalitha Pathak - 04/25/2022 11:21 AM CDT Faxed referral to [facility] referral line Telephone Encounter - Sofia Denson RN - 04/25/2022 11:14 AM CDT Please fax referral, prep instructions mailed to patients home. Telephone Encounter - Sofia Denson RN - 04/25/2022 11:13 AM CDT ----- Message from Adarsh Carpenter MD sent at 04/25/2022 11:08 AM CDT ----- I have placed a referral for the patient to get a colonoscopy at the [facility]. Please copy this referral and fax to them. I have called and talked to his so she knows that this referralwill be placed. I have sent the GoLytely prep to her pharmacy. However please contact the go over the instruction sheet and then have her either metal pickling equipment operator or mail the instruction sheet to them. documented in this encounter Plan of Treatment Not on filedocumented as of this encounter Visit Diagnoses Not on filedocumented in this encounter Additional Health Concerns Infection Onset Date Last Indicated Resolved Time MSSA 10/04/2018 10/04/2018 06/28/2022 8:27 AM CDT documented as of this encounter Care Teams Parts Department Supervisor Relationship Specialty Start Date End Date Adarsh Carpenter MD PCP - General 05/07/[address] [place] [address] documented as of this encounter
--- OUTSIDE RECORDS SUMMARY | 2022-06-30 08:24 | XMS_ITS | Encounter Summary ---
:1960 Author Organization [facility] Address [address] [place] [address] Care Team Providers Name Role Phone Adarsh Carpenter MD Primary Care Provider Encounter Details Date Type Department Care Team Description 11/24/2021 Anticoagulation - SE Gronert, FPC current use of anticoagulant (Primary Dx); Warfarin Visit Anticoag/Gilberto Castillo RN Other pulmonary embolism without acute c or pulmonale, unspecified chronicity (HCC) Medicine - Third [address] [place] [address] Social History Tobacco Use [...] or relatives? How often do you attend congregation or 1 to 4 times per year 04/01 adventist services? Do you belong to any clubs or No 04/24/2022 organizations such as congregation groups, unions, fraternal or athletic groups, or [...] place to sleep or slept in a 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 (including now)? Sex Assigned at Date Recorded Not on file documented as of this encounter Progress Notes Anna Betts RN - 11/24/2021 1:41 PM CST Anticoagulation Clinic - RN Protocol Screening INR RESULTS: INR (no units) Date Value 11/24/2021 1.80 (A) DOSE PLAN: 2mg every Tue, Sat; 4mg all other days DOSE CHANGE: Increased by 9.1% (2 mg/week) NEXT INR: 12/08/21 VERIFY PREVIOUS DOSE PLAN Verified MISSED/EXTRA DOSES No MEDICATION CHANGES No DIET OR ALCOHOL CHANGES No RECENT ILLNESS/ HOSPITALIZATIONS No ABNORMAL BLEEDING OR BRUISING No FALLS OR INJURIES No NEW PAIN SYMPTOMS No NEW SHORTNESS OF BREATH No NEW NEUROLOGICAL SYMPTOMS No INR results reviewed with the patient. Patient verbalized understanding of anticoagulation dose planand date of next INR. AVS mailed to patient. Questions asked to nurse and she reported she was not at his house at the time of ACC questions but reported He said no changes. ACC asked if patient still has 5mg tablets, nurse expressed I am not sure as his handles the medications but he has been doing 2's and 4's for a while now. ACC will monitor and reassess maintenance dose and tablet size at next INR. ID INTERN documented in this encounter Plan of Treatment Not on filedocumented as of this encounter Procedures Procedure Name Priority Date/Time Associated Diagnosis Comme nts PROTIME-INR Routine 11/24/2021 Results for thi s procedure are in the resu lts section. documented in this encounter Results (ABNORMAL) Protime-INR (11/24/2021) P athologist Signature INR 1.80 (A) 0.9 - 1.1 [facility] Protime [facility] CARE TEST[facility] Specimen (Source) Anatomical Location Collection Method / Collectio n Time Received Time / Laterality Volume Blood (Blood, Venous) Historical Provider LAB BLOOD ORDERABLES Performing Organization Address City/State/ZIP Code Phon e Number [facility] CARE TEST[facility] documented in this encounter Visit Diagnoses Diagnosis FPC current use of anticoagulant - Primary Other pulmonary embolism without acute c or pulmonale, unspecified chronicity (HCC) documented in this encounter Additional Health Concerns Infection Onset Date Last Indicated Resolved Time MSSA 10/04/2018 10/04/2018 06/28/2022 8:27 AM CDT documented as of this encounter Care Teams Tool Radial Drill Press Set Up Operator Relationship Specialty Start Date End Date Adarsh Carpenter MD PCP - General 05/07/[address] [place] [address] documented as of this encounter
--- OUTSIDE RECORDS SUMMARY | 2022-06-30 08:24 | XMS_ITS | Encounter Summary ---
:1960 Author Organization [facility] Address [address] [place] [address] Care Team Providers Name Role Phone Adarsh Carpenter MD Primary Care Provider Encounter Details Date Type Department Care Team Description 12/08/2021 Anticoagulation - SE Terri Spivey long-term current Warfarin Visit Anticoag/Internal J, RN use of anticoagulant Medicine - Third [address] (Primary Dx ) [address] [place] [address] [phone] Social History Tobacco Use Types Packs/Day Years [...] or relatives? How often do you attend orthodoxy or 1 to 4 times per year 04/01 anglican services? Do you belong to any clubs or No 04/24/2022 organizations such as orthodoxy groups, unions, fraternal or athletic groups, or [...] place to sleep or slept in a group home (including now)? Sex Assigned at Date Recorded Not on file documented as of this encounter Progress Notes Terri Spivey RN - 12/08/2021 3:41 PM CST Anticoagulation Clinic - RN INR RESULTS: INR (no units) Date Value 12/08/2021 2.70 (A) DOSE PLAN: 2 mg every Tue, Sat; 4 mg all other days DOSE CHANGE: No change NEXT INR: 12/22/21 ACC faxed INR results, instructions, and orders to [facility]. ON PICTURE SET GRIP documented in this encounter Plan of Treatment Not on filedocumented as of this encounter Procedures Procedure Name Priority Date/Time Associated Diagnosis Comme nts PROTIME-INR Routine 12/08/2021 Results for thi s procedure are in the resu lts section. documented in this encounter Results (ABNORMAL) Protime-INR (12/08/2021) P athologist Signature INR 2.70 (A) 0.9 - 1.1 [facility] Comment: [facility] - POC Protime [facility] Specimen (Source) Anatomical Location Collection Method / Collectio n Time Received Time / Laterality Volume Blood (Blood, 12/08/2021 Venous) Historical Provider LAB BLOOD ORDERABLES Performing Organization Address City/State/ZIP Code Phon e Number [facility] [address] [place], [place] [address] documented in this encounter Visit Diagnoses Diagnosis long-term current use of anticoagulant - Primary documented in this encounter Additional Health Concerns Infection Onset Date Last Indicated Resolved Time MSSA 10/04/2018 10/04/2018 06/28/2022 8:27 AM CDT documented as of this encounter Care Teams Lay Brother Relationship Specialty Start Date End Date Adarsh Carpenter MD PCP - General 05/07/[address] [place] [address] documented as of this encounter
--- OUTSIDE RECORDS SUMMARY | 2022-06-30 08:24 | XMS_ITS | Encounter Summary ---
:1960 Author Organization [facility] Address [address] [place] [address] Care Team Providers Name Role Phone Adarsh Carpenter MD Primary Care Provider Encounter Details Date Type Department Care Team Description 04/04/2022 Orders Only Dante Adarsh Carpenter MD [address] [place], [place] [address] [place], [place] [phone] (Wo rk) Social History Tobacco Use Types [...] 1 to 4 times per year 04/01 pentecostalism services? Do you belong to any clubs [...] place to sleep or slept in a skilled nursing (including now)? Sex Assigned at Date Recorded Not on file documented as of this encounter Plan of Treatment Not on filedocumented as of this encounter Visit Diagnoses Not on filedocumented in this encounter Additional Health Concerns Infection Onset Date Last Indicated Resolved Time MSSA 10/04/2018 10/04/2018 06/28/2022 8:27 AM CDT documented as of this encounter Care Teams Mail Carrier And Clerk Relationship Specialty Start Date End Date Adarsh Carpenter MD PCP - General 05/07/[address] [place] [address] documented as of this encounter
--- OUTSIDE RECORDS SUMMARY | 2022-06-30 08:24 | XMS_ITS | Encounter Summary ---
:1960 Author Organization [facility] Address [address] [place] [address] Care Team Providers Name Role Phone Adarsh Carpenter MD Primary Care Provider Encounter Details Date Type Department Care Team Description 03/28/2022 Telephone [place] Adarsh Carpenter MD [address] [place], [place] [address] [place], [place] [phone] (Wo rk) Social History Tobacco Use Types [...] or relatives? How often do you attend voodoo or 1 to 4 times per year 04/01 zoroastrianism services? Do you belong to any clubs or No 04/24/2022 organizations such as voodoo groups, unions, fraternal or athletic groups, or [...] Telephone Encounter - Adarsh Carpenter MD - 03/28/2022 11:28 AM CDT noted Telephone Encounter - Sofia Denson RN - 03/28/2022 10:33 AM CDT Urine sample was dropped off. UA results done and will be put in the chart. Patient's culture will be done tomorrow. documented in this encounter Plan of Treatment Not on filedocumented as of this encounter Visit Diagnoses Not on filedocumented in this encounter Additional Health Concerns Infection Onset Date Last Indicated Resolved Time MSSA 10/04/2018 10/04/2018 06/28/2022 8:27 AM CDT documented as of this encounter Care Teams Candy Maker Helper Relationship Specialty Start Date End Date Adarsh Carpenter MD PCP - General 05/07/[address] [place] [address] documented as of this encounter
--- OUTSIDE RECORDS SUMMARY | 2022-06-30 08:24 | XMS_ITS | Encounter Summary ---
:1960 Author Organization [facility] Address [address] [place] [address] Care Team Providers Name Role Phone Adarsh Carpenter MD Primary Care Provider Encounter Details Date Type Department Care Team Description 03/28/2022 Lab [place] Urinary frequency [address] [place], [place] [address] Social History Tobacco Use [...] or relatives? How often do you attend samaritan or 1 to 4 times per year 04/01 amish services? Do you belong to any clubs or No 04/24/2022 organizations such as samaritan groups, unions, fraternal or athletic groups, or [...] Priority Date/Time Associated Comments Diagnosis URINALYSIS-MICROSCOPI Routine 03/28/2022 6:30 AM Urinary frequ ency Results for this C EXAM (REFLEXED) CDT procedure are in the results section. URINALYSIS WITH Routine 03/28/2022 6:30 AM Urinary frequency R esults for this REFLEX MICROSCOPIC CDT procedure are in the results section. URINE CULTURE Routine 03/28/2022 6:30 AM Urinary frequency Res ults for this CDT procedure are i n the results section. documented in this encounter Results (ABNORMAL) Urinalysis-Microscopic Exam (03/28/2022 6:30 AM CDT) [facility] gist Method Time Signature Casts, urine NONE SEEN 0-2 Hyaline 03/29/2022 [place] /lpf 1:43 PM [facility] Significant NONE SEEN None Seen 03/29/2022 [place] casts, urine /lpf 1:43 PM [facility] RBC, Urine 0-3 0 - 3 /hpf 03/29/2022 [place] 1:43 PM [facility] WBC, Urine 21-50 (A) /hpf 03/29/2022 [place] 1:43 PM [facility] Comment: Male Ref Range ? 0-3/hpf Female Ref Range ?? 0-10/hpf Squamous Epithelial, NONE SEEN Few /lpf 03/29/2022 1:43 PM [facility] Urine T [facility] Trans Epithelial, NONE SEEN 0 - 3 /hpf 03/29/2022 1:43 PM [facility] Urine T [facility] Renal Tubular Cells, NONE SEEN 0 - 1 /hpf 03/29/2022 [facility] Bacteria, Urine 1+ (A) None Seen 03/29/2022 1:43 PM [facility] Miscellaneous, urine SEE BELOW 03/29/2022 1:43 PM [facility] Comment: 1+ ??Calcium Oxalate Crystals Present. Specimen Anatomical Collection Method Collection Time Receive d Time (Source) Location / / Volume Laterality 03/28/2022 6:30 AM CDT 12:12 PM CDT Wade Donovan MD LAB URINE ORDERABLES Performing Organization Address [facility]/ZIP Code Phon e Number [facility] [address] [place] [address] (ABNORMAL) Urine culture (03/28/2022 6:30 AM CDT) [facility] Time Signature Urine Culture Enterococcus faecalis 03/31/2022 [facility] ST[facility] >100,000 cfu/ml 10:06 AM MEDICAL Vancomycin ORLY = 2.0 ucg/ml CDT [facility] (A) LABORATORY Specimen Anatomical Collection Method Collection Time Receive d Time (Source) Location / / Volume Laterality Urine (Urine, 03/28/2022 6:30 AM 03/28/20 22 Clean Catch) CDT 10:00 AM CDT Comment: URINE Narrative [facility] - 07/0 10/2021 10:07 AM CDT Patient does not have an Amoxicillin or PCN allergy Organism Antibiotic Method Susceptibility Enterococcus faecalis Ampicillin <=2 mcg/mL : Susceptible Enterococcus faecalis Ciprofloxacin <=1 mcg/mL : Susceptible Enterococcus faecalis Nitrofurantoin <=32 mcg/m L: Susceptible Enterococcus faecalis Penicillin 2 mcg/mL: Susceptible Enterococcus faecalis Vancomycin 2 mcg/mL: Susceptible Wade Donovan MD LAB MICROBIOLOGY - GENERAL O RDERABLES Performing Organization Address City/State/ZIP Code Phon e Number [facility] [address] [address] (ABNORMAL) Urinalysis with reflex microscopic (03/28/2022 6:30 AM CDT) [employer] Method Time Signature Type CATH 03/28/2022 [facility] 10:37 AM CDT [place] Color, Urine YELLOW YELLOW 03/28/2022 [facility] 10:37 AM CDT [place] Clarity, CLEAR CLEAR 03/28/2022 [facility] Urine 10:37 AM CDT [place] Glucose, NEGATIVE NEGATIVE 03/28/2022 [facility] Urine mg/dL 10:37 AM CDT [place] Bilirubin, NEGATIVE NEGATIVE 03/28/2022 [facility] Urine 10:37 AM CDT [place] Ketones, NEGATIVE NEGATIVE 03/28/2022 [facility] Urine mg/dL 10:37 AM CDT [place] Specific 1.025 1.000 03/28/2022 [facility] Unity, ->=1.030 10:37 AM CDT [place] Urine Blood, Urine TRACE (A) NEGATIVE 03/28/2022 [facility] 10:37 AM CDT [place] pH, Urine 6.0 5.0 - 7.0 03/28/2022 [facility] 10:37 AM CDT [place] Protein, NEGATIVE NEGATIVE-TRA 03/28/2022 [facility] Urine CE mg/dL 10:37 AM CDT [place] Urobilinogen, 1.0 0.2 - 1.0 03/28/2022 [facility] Urine E.U./dL 10:37 AM CDT [place] Nitrite, NEGATIVE NEGATIVE 03/28/2022 [facility] Urine 10:37 AM CDT [place] Leukocytes, SMALL (A) NEGATIVE 03/28/2022 [facility] Urine 10:37 AM CDT [place] Specimen Anatomical Collection Method Collection Time Receive d Time (Source) Location / / Volume Laterality Urine (Urine, 03/28/2022 6:30 AM 03/28/20 22 Catheter) CDT 10:00 AM CDT Wade Donovan MD LAB URINE ORDERABLES Performing Organization Address City/State/ZIP Code Phon e Number [facility] [address] [place] [address] documented in this encounter Visit Diagnoses Diagnosis Urinary frequency documented in this encounter Additional Health Concerns Infection Onset Date Last Indicated Resolved Time MSSA 10/04/2018 10/04/2018 06/28/2022 8:27 AM CDT documented as of this encounter Care Teams Pre Press Proofer Relationship Specialty Start Date End Date Adarsh Carpenter MD PCP - General 05/07/[address] [place] [address] documented as of this encounter
--- OUTSIDE RECORDS SUMMARY | 2022-06-30 08:24 | XMS_ITS | Encounter Summary ---
:1960 Author Organization [facility] Address [address] [place] [address] Care Team Providers Name Role Phone Adarsh Carpenter MD Primary Care Provider Reason for Referral Consultation (Urgent) - Closed Specialty Diagnoses / Procedures Referred By Contact Refer red To Contact Family Medicine Diagnoses Hyperlipidemia LDL goal <100 Mixed hyperlipidemia half-way current use of anticoagulant Other pulmonary embolism without acute cor pulmonale, unspecified chronicity (HCC) Adarsh Carpenter MD Care Coordination [address] [facility] [address], [place] [phone] Referral ID Status Reason Start Date Expiration Date Visits V isits Requested Authorized [id number] Closed Specialty 04/19/2022 04/19/2023 99 99 Services Required Scheduling Instructions Staff from this department will contact the patient to schedule an appointment. Reason for Visit Reason Onset Date Comments High Risk ACO 04/19/2022 Encounter Details Date Type Department Care Team Description 04/19/2022 Telephone Care Coordination Adarsh Carpenter MD High Risk ACO [address] [facility] [address] [place] [address] [place], [place] [phone] (Wo rk) Social History Tobacco Use Types [...] 1 to 4 times per year 04/01 confucianism services? Do you belong to any clubs [...] place to sleep or slept in a penitentiary (including now)? Sex Assigned at Date Recorded Not on file documented as of this encounter Miscellaneous Notes Telephone Encounter - Yaneth Serrato LPN - 04/19/2022 3:04 PM CDT High Risk ACO Chart Review The patient has been identified by the ACO as a high risk patient. A referral has been placed to Chronic Care Management per [facility] guidelines. PCP: Adarsh Carpenter MD Orders Placed This Encounter Procedures ??? Ambulatory referral to Care Coordination ACO: High risk Medicare and BCBS: Benefits pending Referral Priority: Urgent Referral Type: Consultation Referral Reason: Specialty Services Required Number of Visits Requested: 99 Expiration Date: 04/19/2023 1. Hyperlipidemia LDL goal <100 2. Mixed hyperlipidemia 3. half-way current use of anticoagulant 4. Other pulmonary embolism without acute cor pulmonale, unspecified chronicity (HCC) documented in this encounter Plan of Treatment Scheduled Referrals Name Type Priority Associated Diagnoses Order S [facility] Ambulatory referral Outpatient Routine Hyperlipidemia LDL Or dered: to Care Coordination Referral goal <100 04/19/2022 Mixed hyperlipid [facility] long term care pharmacist current use of anticoagulant Other pulmonary embolism without acute cor pulmonale, unspecified chronicity (HCC) documented as of this encounter Visit Diagnoses Diagnosis Hyperlipidemia LDL goal <100 - Primary Other and unspecified hyperlipidemia Mixed hyperlipidemia long term care pharmacist current use of anticoagulant Other pulmonary embolism without acute c or pulmonale, unspecified chronicity (HCC) documented in this encounter Additional Health Concerns Infection Onset Date Last Indicated Resolved Time [facility] 10/04/2018 10/04/2018 06/28/2022 8:27 AM CDT documented as of this encounter Care Teams Etl Programmer Relationship Specialty Start Date End Date Adarsh Carpenter MD PCP - General 05/07/[address] [place] [address] documented as of this encounter
--- OUTSIDE RECORDS SUMMARY | 2022-06-30 08:24 | XMS_ITS | Encounter Summary ---
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 How often do you attend roman catholic or 1 to 4 times per year 04/01 spiritism services? Do you belong to any clubs or No 04/24/2022 organizations such as roman catholic groups, unions, fraternal or athletic groups, or [...] encounter Progress Notes Anna Betts RN - 04/26/2022 3:19 PM CDT Anticoagulation Clinic INR RESULTS: INR (no units) Date Value 04/26/2022 3.50 (A) DOSE PLAN: One time dose decreased of 2mg on 04/26/22; Then resume 2mg every e, Sat; 4mg all other day DOSE CHANGE: one time dose decrease NEXT INR: 05/10/22 INR results reviewed with the patient's spouse per preference. She stated they have not been eating the same foods and she asked about Vitamin K foods and INR meaning. ACC and spouse talked and spouse stated she would like to resume eating vegetables and to wait to reduce maintenance dose. Spouse verbalized understanding of anticoagulation dose plan and date of next INR. The patient's spouse denied signs/symptoms of bleeding. Please monitor for bleeding, utilize safety precautions and seek medical attention as warranted. documented in this encounter Plan of Treatment Not on filedocumented as of this encounter Procedures Procedure Name Priority Date/Time Associated Diagnosis Comme nts PROTIME-INR Routine 04/26/2022 Results for thi s procedure are in the resu lts section. 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
--- OUTSIDE RECORDS SUMMARY | 2022-06-30 08:24 | XMS_ITS | Encounter Summary ---
:1960 Author Organization [facility] Address [address] [place] [address] Care Team Providers Name Role Phone Adarsh Carpenter MD Primary Care Provider Reason for Referral Consultation (Routine) - Authorized Specialty Diagnoses / Procedures Referred By Contact Refer red To Contact Diagnoses Colon cancer screening Adarsh Carpenter MD [facility] [address] [place] [address] [place] [phone] Referral ID Status Reason Start Date Expiration Date Visits V isits Requested Authorized [id number] Authorized 04/25/2022 04/25/2023 1 1 Reason for Visit Reason Comments Needing referral For new wheelchair Encounter Details Date Type Department Care Team Description 04/24/2022 Office Visit Adarsh Weaver Colon cancer screening (Prim iain Dx); [address] MD Hang Multiple sclerosis (HCC); [place], [place] [address] Wheelchair dependent; [phone] [place] Neurogenic bladder; [place], [place] history [place] cancer; [place] [address] History of pulmonary embolus (PE); [phone] [facility] curre nt use of anticoagulant (Work) Social History Tobacco Use Types Packs/Day Years [...] 1 to 4 times per year 04/01 restoration services? Do you belong to any clubs [...] place to sleep or slept in a nursing home (including now)? Sex Assigned at Date Recorded Not on file documented as of this encounter Last Filed Vital Signs Vital Sign Reading Time Taken Comments Blood Pressure 114/78 04/24/2022 1:31 PM CDT Pulse 88 04/24/2022 1:31 PM CDT Temperature 36.7 ??C (98 ??F) 04/24/2022 1:31 PM CDT Respiratory Rate 20 04/24/2022 1:31 PM CDT Oxygen Saturation 95% 04/24/2022 1:31 PM CDT Inhaled Oxygen Concentration - - Weight - - Height - - Body Mass Index - - documented in this encounter Progress Notes Adarsh Carpenter MD - 04/24/2022 1:20 PM CDT Subjective Patient ID: Dwain Hinds is a 61 y.o. male. HPI the patient is here today because of a couple different reasons. WHEELCHAIR DEPENDENT secondary to a general lower body paralysis secondary to multiple sclerosis thepatient has been wheelchair dependent since 2016. He has a Motorized wheelchair is now 6+ years old and he is due to get an updated version that will continue to work well for him and the battery is having to be charged more frequently does not last long. He will need a referral first to PMR specialist in [place] who then can refer him to a seating clinic and then can prescribe him a new motorized wheelchair via [facility] in [place]. MS the patient has been diagnosed with multiple sclerosis for greater than 20 years. He became wheelchair dependent in 2016 and since that time he has lost all use of motor function below the waist there is some sensory changes but not that great. He has a neurogenic bladder requiring frequent catheterizations 4+ times per day. He continues to see well and without any significant visual disturbance he continues to be able to use his upper extremities though he is lost some of the fine motor functionand strength of both hands and forearms. He requires a Victoriano lift that his is able to manage him with to get into his wheelchair and to change positions for him. He does have a hospital type bed that goes up and down both horizontally and the head of the bed can be raised up. He has not had minimal issues with pressure sores. He has had no particular problems with swallowing no eating difficulties no weight changes BMs are reasonably well controlled though periodic use of suppositories. NEUROLOGIST the patient has not consulted with a neurologist for quite a few years. We discussed seeing a neurologist to get updated on possible any current therapeutic options for his MS. COLON CANCER SCREENING the patient has a history of polyps based upon a previous colonoscopy that I do not have the results of we will have to request this record from the [facility]. There isalso a family history of colon cancer in his mother who developed colon cancer at age 70 but from other causes. Once we get the last colonoscopy report will then schedule his colonoscopy.. 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 He has been on Coumadin therapy and checks his INR every 2 weeks and he has been maintained and is therapeutic. OBSTRUCTIVE SLEEP APNEA patient has risk factors for this though he apparently does not snore that much I believe he has been tested at least on 1 previous occasion and was told he was kind of borderline. We will not be testing at this time we will continue to address in the future. RECURRENT UTIS/SEPSIS Patient's had a history of sepsis but has not been hospitalized for approximately 2+ years since hislast episode. Whenever he has some concerns or issues they check a urine sample. COVID-19 the patient has not had this far as he knows. He has been boosted at least 1 occasion. SMOKING quit 20+ years ago ALCOHOL quit more than 40 years ago ALLERGIES to penicillin then some to bee stings does not need an EpiPen MEDICATIONS Lipitor 20 mg daily Baclofen 10 mg 4 times daily Ditropan 5 mg tablet twice daily Coumadin that that is adjusted according to his INR MEDICAL HISTORY Multiple sclerosis as discussed with all of his intended problems Hyperlipidemia Muscular spasms Coagulation issues with history of DVT and PE Chronic anticoagulant therapy Neurogenic bladder Long-term anticoagulation Family history of colon cancer Wheelchair dependent History of sepsis with recurrent UTIs History of kidney stones and bladder stones Some hearing loss Previous history of depression not current History of pressure ulcers small in the past but not current Spastic paraparesis Paraplegia Some risk factors for INEZ SURGICAL HISTORY Patient has a torito placed in his left leg secondary to traumatic fracture Tonsils and adenoidectomy History of left arm fracture requiring bone grafting History of colon polyps colonoscopy History of kidney stone/bladder stone removal SOCIAL HISTORY he has been since 1977 and 4 children and 11 grandchildren. 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 He has 3 brothers and 1 sister living COLON CANCER SCREENING he is due to have this scheduled again IMMUNIZATIONS he is in need of the next COVID-19 shot when it becomes available who we have discussed the value of the shingles vaccination. PSA SCREENING gets on a routine basis We have discussed the value of routine eye examinations and dental checkups. Review of Systems is current review of system other than as discussed above shows that he is having no significant issues HEENT or headaches No fever chills cough cold no shortness of breath chest pain palpitations no concerns regarding GI or systems at this time no pain concerns no skin lesions lumps or bumps Objective Physical Exam is alert he appears comfortable vital signs show the following Blood pressure 148/78 Pulse 88 regular rate and rhythm Temp 98 Weight is roughly 190 pounds O2 sat 95% Ears are clear except for little cerumen Pupils equal reactive conjunctiva clear Tongue is moist throat is clear dentition okay Neck no adenopathy no thyromegaly no carotid bruits no masses Lungs are reasonably clear without wheeze rales or rhonchi Cardiac is regular rate and rhythm no heart murmur Abdomen soft not distended no apparent masses 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 Will also get his colonoscopy report from the [facility] and make referral for him to get acolonoscopy. documented in this encounter Plan of Treatment Scheduled Referrals Name Type Priority Associated Order Schedule Diagnoses Ambulatory External Outpatient Referral Routine Colon cancer O rdered: Referral screening 04/25/2022 documented as of this encounter Visit Diagnoses Diagnosis Colon cancer screening - Primary Special screening for malignant neoplasm s, colon Multiple sclerosis (HCC) Multiple sclerosis Wheelchair dependent Wheelchair dependence Neurogenic bladder Neurogenic bladder, NOS Family history of colon cancer Family history of malignant neoplasm of gastrointestinal tract History of pulmonary embolus (PE) 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
--- OUTSIDE RECORDS SUMMARY | 2022-06-30 08:24 | XMS_ITS | Encounter Summary ---
:[address] [facility] Address [address] [place] [address] Care Team Providers Name Role Phone Adarsh Carpenter MD Primary Care Provider Encounter Details Date Type Department Care Team Description 12/20/2021 Telephone [place] Adarsh Carpenter MD [address] [place], [place] [address] [place], [place] [phone] (Wo rk) Social History Tobacco Use Types [...] or relatives? How often do you attend scientologist or 1 to 4 times per year 04/01 muslim services? Do you belong to any clubs or No 04/24/2022 organizations such as scientologist groups, unions, fraternal or athletic groups, or [...] place to sleep or slept in a half-way (including now)? Sex Assigned at Date Recorded Not on file documented as of this encounter Miscellaneous Notes Telephone Encounter - Veronica Glez - 01/10/2022 4:50 PM CDT Forms faxed 12/20/21 the scanned to Pt's chart. Telephone Encounter - Sofia Denson RN - 12/20/2021 4:45 PM CDT Please fax forms. Telephone Encounter - Adarsh Carpenter MD - 12/20/2021 4:06 PM CDT Done. Telephone Encounter - Sofia Denson RN - 12/20/2021 2:08 PM CDT Forms on providers desk. Telephone Encounter - Hannah Farris - 12/20/2021 1:16 PM CDT [facility] in [place] is faxing a Certificate of Medical Neccessity to be filled out for patients catheters. Original rx was sent to different pharmacy and they are unable to get supply for patient so it was transferred to different pharmacy and [facility] is unable to fill with out signature. CanDr [place] review and sign for patient? documented in this encounter Plan of Treatment Not on filedocumented as of this encounter Visit Diagnoses Not on filedocumented in this encounter Additional Health Concerns Infection Onset Date Last Indicated Resolved Time MSSA 10/04/2018 10/04/2018 06/28/2022 8:27 AM CDT documented as of this encounter Care Teams Daycare Teacher Relationship Specialty Start Date End Date Adarsh Carpenter MD PCP - General 05/07/[address] [place] [address] documented as of this encounter
--- OUTSIDE RECORDS SUMMARY | 2022-06-30 08:24 | XMS_ITS | Encounter Summary ---
:1960 Author Organization [facility] Address [address] [place] [address] Care Team Providers Name Role Phone Adarsh Carpenter MD Primary Care Provider Encounter Details Date Type Department Care Team Description 03/01/2022 Anticoagulation - SE Dolores Cleary, prison current Warfarin Visit Anticoag/Internal RN use of anticoagulant Medicine - Third [address] ([address] Dx ) [address] [place] [address] [phone] Social History Tobacco Use Types Packs/Day Years [...] place to sleep or slept in a [place] [facility] (including now)? Sex Assigned at Date Recorded Not on file documented as of this encounter Progress Notes Dolores Cleary RN - 03/01/2022 2:42 PM CDT Anticoagulation Clinic INR RESULTS: INR (no units) Date Value 03/01/2022 2.30 (A) DOSE PLAN: 2 mg Tue, Sat; 4 mg all other days DOSE CHANGE: No change NEXT INR: 03/15/2022 INR results not reviewed with patient. INR is within patient's goal range and dosing instructions have not been changed. AVS not mailed. Patient tests INR at home. documented in this encounter Plan of Treatment Not on filedocumented as of this encounter Procedures Procedure Name Priority Date/Time Associated Diagnosis Comme nts PROTIME-INR Routine 03/01/2022 Results for thi s procedure are in the resu lts section. documented in this encounter Results (ABNORMAL) Protime-INR (03/01/2022) P athologist Signature INR 2.30 (A) 0.9 [...] documented in this encounter Visit Diagnoses Diagnosis prison current use of anticoagulant - Primary documented in this encounter Additional Health Concerns Infection Onset Date Last Indicated Resolved Time MSSA 10/04/2018 10/04/2018 06/28/2022 8:27 AM CDT documented as of this encounter Care Teams Frog Farmer Relationship Specialty Start Date End Date Adarsh Carpenter MD PCP - General 05/07/[address] [place] [address] documented as of this encounter
--- OUTSIDE RECORDS SUMMARY | 2022-06-30 08:24 | XMS_ITS | Encounter Summary ---
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 How often do you attend hoahaoism or 1 to 4 times per year 04/01 uatsdin services? Do you belong to any clubs or No 04/24/2022 organizations such as hoahaoism groups, unions, fraternal or athletic groups, or [...] encounter Progress Notes Anna Betts RN - 03/15/2022 11:35 AM CDT Anticoagulation Clinic INR RESULTS: INR (no units) Date Value 03/15/2022 2.20 (A) DOSE PLAN: 2mg every Tue, Sat; 4mg all other days DOSE CHANGE: No change NEXT INR: 03/29/22 INR results not reviewed with patient. INR is within patient's goal range and dosing instructions have not been changed. Patient is a home liz. documented in this encounter Plan of Treatment Not on filedocumented as of this encounter Procedures Procedure Name Priority Date/Time Associated Diagnosis Comme nts PROTIME-INR Routine 03/15/2022 Results for thi s procedure are in the resu lts section. documented in this encounter Results (ABNORMAL) Protime-INR (03/15/2022) P athologist Signature INR 2.20 (A) 0.9 - 1.1 [facility] [...] prison current use of anticoagulant - Primary Other pulmonary embolism without acute c or pulmonale, unspecified chronicity (HCC) documented in this encounter Additional Health Concerns Infection Onset Date Last Indicated Resolved Time MSSA 10/04/2018 10/04/2018 06/28/2022 8:27 AM CDT documented as of this encounter Care Teams Mixing And Molding Machine Operator Relationship Specialty Start Date End Date Adarsh Carpenter MD PCP - General 05/07/[address] [place] [address] documented as of this encounter
--- OUTSIDE RECORDS SUMMARY | 2022-06-30 08:24 | XMS_ITS | Encounter Summary ---
:1960 Author Organization [facility] Address [address] [place] [address] Care Team Providers Name Role Phone Adarsh Carpenter MD Primary Care Provider Reason for Visit Reason Comments Med Refill Encounter Details Date Type Department Care Team Description 02/12/2022 Refill [place] Adarsh Carpenter, Detrusor instability [address] [place], [place] [address] [phone] [place] [address] (Wo rk) Social History Tobacco Use Types [...] Telephone Encounter - Alison Packer MA - 02/13/2022 12:17 PM CDT Last visit in provider department: 11/03/21 Last visit requested medication was discussed: 07/23/20 Last Rx: 02/15/21, #180, 3 refills Requested Prescriptions Pending Prescriptions Disp Refills ??? oxybutynin (DITROPAN) 5 MG tablet [Pharmacy Med Name: OXYBUTYNIN CHLORIDE 5MG TABS] 180 tablet 3 Sig: TAKE ONE TABLET BY MOUTH TWICE A DAY Vitals: BP Readings from Last 2 Encounters: 11/03/21 132/82 07/12/20 134/90 Upcoming appointment with provider: nonr Patient is due for an appointment. PSR/Nurse: Please contact patient to assist with scheduling. 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
--- OUTSIDE RECORDS SUMMARY | 2022-06-30 08:24 | XMS_ITS | Encounter Summary ---
:1960 Author Organization [facility] Address [address] [place] [address] Care Team Providers Name Role Phone Adarsh Carpenter MD Primary Care Provider Encounter Details Date Type Department Care Team Description 04/02/2022 Orders Only [place] Adarsh Carpenter MD [address] [place], [place] [address] [place], [place] [phone] (Wo rk) Social History Tobacco Use Types [...] or relatives? How often do you attend hinduism or 1 to 4 times per year 04/01 zoroastrianism services? Do you belong to any clubs or No 04/24/2022 organizations such as hinduism groups, unions, fraternal or athletic groups, or [...] as of this encounter Care Teams Ski Topper Relationship Specialty Start Date End Date Adarsh Carpenter MD PCP - General 05/07/[address] [place] [address] documented as of this encounter
--- OUTSIDE RECORDS SUMMARY | 2022-06-30 08:24 | XMS_ITS | Encounter Summary ---
:1960 Author Organization [facility] Address [address] [place] [address] Care Team Providers Name Role Phone Adarsh Carpenter MD Primary Care Provider Encounter Details Date Type Department Care Team Description 02/20/2022 Orders Only [place] Adarsh Carpenter MD [address] [place], [place] [address] [place], [place] [phone] (Wo rk) Social History Tobacco Use Types [...] 1 to 4 times per year 04/01 jewish services? Do you belong to any clubs [...] place to sleep or slept in a jail (including now)? Sex Assigned at Date Recorded Not on file documented as of this encounter Plan of Treatment Not on filedocumented as of this encounter Visit Diagnoses Not on filedocumented in this encounter Additional Health Concerns Infection Onset Date Last Indicated Resolved Time MSSA 10/04/2018 10/04/2018 06/28/2022 8:27 AM CDT documented as of this encounter Care Teams Vascular Manager Relationship Specialty Start Date End Date Adarsh Carpenter MD PCP - General 05/07/[address] [place] [address] documented as of this encounter
--- OUTSIDE RECORDS SUMMARY | 2022-06-30 08:24 | XMS_ITS | Encounter Summary ---
:1960 Author Organization [facility] Address [address] [place] [address] Care Team Providers Name Role Phone Adarsh Carpenter MD Primary Care Provider Encounter Details Date Type Department Care Team Description 03/28/2022 Orders Only [place] Wade Donovan, Urinary frequency [address] (Primary Dx) [place], [place] [address] [address] [place] [phone] [place] [address] Social History Tobacco Use Types Packs/Day Years [...] or relatives? How often do you attend restoration or 1 to 4 times per year 04/01 taoism services? Do you belong to any clubs or No 04/24/2022 organizations such as restoration groups, unions, fraternal or athletic groups, or [...] of this encounter Results (ABNORMAL) Urine culture (03/28/2022 6:30 AM CDT) [employer] Method Time Signature Urine Culture Enterococcus faecalis 03/31/2022 [facility] STED >100,000 cfu/ml 10:06 AM MEDICAL Vancomycin ORLY = 2.0 ucg/ml CDT CE NTER (A) LABORATORY Specimen Anatomical Collection Method Collection Time Receive d Time (Source) Location / / Volume Laterality Urine (Urine, 03/28/2022 6:30 AM 03/28/20 22 Clean Catch) CDT 10:00 AM CDT Comment: URINE Narrative [facility] - 10/2021 10:07 AM CDT Patient does not [...] Organization Address City/State/ZIP Code Phon e Number [facility] [address] [place] [address] (ABNORMAL) Urinalysis with reflex microscopic (03/28/2022 6:30 AM CDT) [employer] Method Time Signature Type CATH 03/28/2022 [facility] [...] [place] Specific 1.025 1.000 03/28/2022 [facility] Sully, ->=1.030 10:37 AM CDT [place] Urine Blood, Urine TRACE (A) NEGATIVE 03/28/2022 [facility] 10:37 AM CDT [place] pH, Urine 6.0 5.0 - 7.0 03/28/2022 [facility] 10:37 AM CDT [place] Protein, NEGATIVE NEGATIVE-TRA 03/28/2022 [facility] Urine CE mg/dL 10:37 AM CDT [place] Urobilinogen, 1.0 0.2 - 1.0 03/28/2022 [facility] K[facility] Urine E.U./dL 10:37 AM CDT [place] Nitrite, NEGATIVE NEGATIVE 03/28/2022 [facility] Urine 10:37 AM CDT [place] Leukocytes, SMALL (A) NEGATIVE 03/28/2022 [facility] Urine 10:37 AM CDT [place] Specimen Anatomical Collection Method Collection Time Receive d Time (Source) Location / / Volume Laterality Urine (Urine, 03/28/2022 6:30 AM 03/28/20 22 Catheter) CDT 10:00 AM CDT Wade Donovan MD LAB URINE ORDERABLES Performing Organization Address City/State/ZIP Code Phon e Number [facility] [address] [place] [address] documented in this encounter Visit Diagnoses Diagnosis Urinary frequency - Primary Urinary frequency documented in this encounter Additional Health Concerns Infection Onset Date Last Indicated Resolved Time MSSA 10/04/2018 10/04/2018 06/28/2022 8:27 AM CDT documented as of this encounter Care Teams Elastic Yarn Twister Relationship Specialty Start Date End Date Adarsh Carpenter MD PCP - General 05/07/[address] [place] [address] documented as of this encounter
--- OUTSIDE RECORDS SUMMARY | 2022-06-30 08:24 | XMS_ITS | Encounter Summary ---
:1960 Author Organization [facility] Address [address] [place] [address] Care Team Providers Name Role Phone Adarsh Carpenter MD Primary Care Provider Reason for Visit Reason Onset Date Comments Cath prices 11/08/2021 Encounter Details Date Type Department Care Team Description 11/08/2021 Telephone [place] Adarsh Carpenter MD Cath prices [address] [place], [place] [address] [place], [place] [phone] (Wo rk) Social History Tobacco Use Types [...] or relatives? How often do you attend oriental orthodox or 1 to 4 times per year 04/01 denominational services? Do you belong to any clubs or No 04/24/2022 organizations such as oriental orthodox groups, unions, fraternal or athletic groups, or [...] Telephone Encounter - Sofia Denson RN - 11/08/2021 1:37 PM CST Spoke to Nelia, informed of cost, see duplicate note. ONING SPRAYER Telephone Encounter - Sofia Denson RN - 11/08/2021 1:23 PM CST Straight tip $266.40/ for 4 boxes ; if insurance covers anything they would be reimbursed. ONING SPRAYER Telephone Encounter - Veronica Glez - 11/08/2021 12:53 PM CST Bia with [facility] called asking to talk with Sofia about cath pricing. Please call her at [phone]. ONING SPRAYER documented in this encounter Plan of Treatment Not on filedocumented as of this encounter Visit Diagnoses Not on filedocumented in this encounter Additional Health Concerns Infection Onset Date Last Indicated Resolved Time MSSA 10/04/2018 10/04/2018 06/28/2022 8:27 AM CDT documented as of this encounter Care Teams Double Cut Off Saw Operator Relationship Specialty Start Date End Date Adarsh Carpenter MD PCP - General 05/07/[address] [place] [address] documented as of this encounter
--- OUTSIDE RECORDS SUMMARY | 2022-06-30 08:24 | XMS_ITS | Encounter Summary ---
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 How often do you attend advent or 1 to 4 times per year 04/01 islam services? Do you belong to any clubs or No 04/24/2022 organizations such as advent groups, unions, fraternal or athletic groups, or [...] encounter Progress Notes Anna Betts RN - 02/15/2022 11:38 AM CDT Anticoagulation Clinic INR RESULTS: INR (no units) Date Value 02/15/2022 3.00 (A) DOSE PLAN: 2mg every Tue, Sat; 4mg all other days DOSE CHANGE: No change NEXT INR: 03/01/22 INR results reviewed with the patient's spouse as this was the first test with home testing. She verbalized understanding of anticoagulation dose plan and date of next INR. AVS not mailed to the patient. Patient is a home liz. documented in this encounter Plan of Treatment Not on filedocumented as of this encounter Procedures Procedure Name Priority Date/Time Associated Diagnosis Comme nts PROTIME-INR Routine 02/15/2022 Results for thi s procedure are in the resu lts section. documented in this encounter Results (ABNORMAL) Protime-INR (02/15/2022) P athologist Signature INR 3.00 (A) 0.9 [...] documented in this encounter Visit Diagnoses Diagnosis [facility] current use of anticoagulant - Primary Other pulmonary embolism without acute c or pulmonale, unspecified chronicity (HCC) documented in this encounter Additional Health Concerns Infection Onset Date Last Indicated Resolved Time MSSA 10/04/2018 10/04/2018 06/28/2022 8:27 AM CDT documented as of this encounter Care Teams Professional Advisor Relationship Specialty Start Date End Date Adarsh Carpenter MD PCP - General 05/07/[address] [place] [address] documented as of this encounter
--- OUTSIDE RECORDS SUMMARY | 2022-06-30 08:24 | XMS_ITS | Encounter Summary ---
:1960 Author Organization [facility] Address [address] [place] [address] Care Team Providers Name Role Phone Adarsh Carpenter MD Primary Care Provider Reason for Visit Reason Onset Date Comments update 04/04/2022 Encounter Details Date Type Department Care Team Description 04/04/2022 Telephone [place] Adarsh Carpenter MD update [address] [place], [place] [address] [place], [place] [phone] [address] (Wo rk) Social History Tobacco Use Types [...] or relatives? How often do you attend lutheran or 1 to 4 times per year 04/01 gnosticist services? Do you belong to any clubs or No 04/24/2022 organizations such as lutheran groups, unions, fraternal or athletic groups, or [...] Telephone Encounter - Sofia Denson RN - 04/04/2022 2:04 PM CDT Nelia informed. Telephone Encounter - Wade Donovan MD - 04/04/2022 12:47 PM CDT OK sounds good. I would recommend they increase water intake and track his urine output and record it. He should be taking at least 1.5 Liters of water daily and should be making urine volume of about 1 Liter per day (in 24 hours) if taking 1.5 Liters of water. If any new symptoms of fevers, altered mental status (sleeping a lot is not as concerning as fatigue, lethargy, delirium), needs to be seen right away. Telephone Encounter - Sofia Denson RN - 04/04/2022 11:50 AM CDT bhupendrai Telephone Encounter - Veronica Glez - 04/04/2022 11:25 AM CDT Pt's Nelia called with an update for Dr. Donovan. She said Pt's urine is quite dark, has an odor but not as bad before, and he only urinates in small amounts. Pt has been sleeping quite a bit. Nelia villalta reached at [phone] as necessary. documented in this encounter Plan of Treatment Not on filedocumented as of this encounter Visit Diagnoses Not on filedocumented in this encounter Additional Health Concerns Infection Onset Date Last Indicated Resolved Time MSSA 10/04/2018 10/04/2018 06/28/2022 8:27 AM CDT documented as of this encounter Care Teams Surgery Scheduler Relationship Specialty Start Date End Date Adarsh Carpenter MD PCP - General 05/07/[address] [place] [address] documented as of this encounter
--- OUTSIDE RECORDS SUMMARY | 2022-06-30 08:24 | XMS_ITS | Encounter Summary ---
:1960 Author Organization [facility] Address [address] [place] [address] Care Team Providers Name Role Phone Adarsh Carpenter MD Primary Care Provider Encounter Details Date Type Department Care Team Description 01/19/2022 Anticoagulation - SE [place], dessert cup machine feeder current use of anticoagulant (Primary Dx); Warfarin Visit Anticoag/Gilberto Castillo RN Other pulmonary embolism without acute c or pulmonale, unspecified chronicity (HCC) Medicine - Third [address] [place] [address] Social History Tobacco Use [...] or relatives? How often do you attend worship or 1 to 4 times per year 04/01 oriental orthodox services? Do you belong to any clubs or No 04/24/2022 organizations such as worship groups, unions, fraternal or athletic groups, or [...] place to sleep or slept in a [facility] (including now)? Sex Assigned at Date Recorded Not on file documented as of this encounter Progress Notes Anna Betts RN - 01/19/2022 11:21 AM CDT Anticoagulation Clinic - RN INR RESULTS: INR (no units) Date Value 01/19/2022 3.00 (A) DOSE PLAN: 2mg every Tue, Sat; 4mg all other days DOSE CHANGE: No change NEXT INR: 02/16/22 [facility] received a call from [facility] nurse with INR and no changes noted. [facility] faxed INR results, instructions, and orders to [facility]. Anna Betts RN - 01/19/2022 11:21 AM CDT When INR was called in by Home health nurse, she verbalized that home care would be ending soon and family was inquireing about home testing. [facility] verbalized that a referral would be sent in today and that patient would need to keep testing until they received a call from the home testing agency. [facility] also verbalized that patient would need to test every 1-2 weeks, even when stable per home testing guidelines, patient and spouse verbalized understanding. documented in this encounter Plan of Treatment Not on filedocumented as of this encounter Procedures Procedure Name Priority Date/Time Associated Diagnosis Comme nts PROTIME-INR Routine 01/19/2022 Results for thi s procedure are in the resu lts section. 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
--- OUTSIDE RECORDS SUMMARY | 2022-06-30 08:24 | XMS_ITS | Encounter Summary ---
:1960 Author Organization [facility] Address [address] [place] [address] Care Team Providers Name Role Phone Adarsh Carpenter MD Primary Care Provider Reason for Visit Reason Comments Medicare Annual Wellness Visit Subsequent Encounter Details Date Type Department Care Team Description 04/24/2022 Clinical Support [place] Medicare annual wellness vis it, subsequent; [address] Advanced directives, careers counsellor ing/discussion [place] [address] Social History Tobacco Use Types [...] or relatives? How often do you attend sikhism or 1 to 4 times per year 04/01 baptist services? Do you belong to any clubs or No 04/24/2022 organizations such as sikhism groups, unions, fraternal or athletic groups, or [...] Time Taken Comments Blood Pressure 114/78 04/24/2022 3:10 PM CDT Pulse 88 04/24/2022 3:10 PM CDT Temperature 36.7 ??C (98 ??F) 04/24/2022 3:10 PM CDT Respiratory Rate 20 04/24/2022 3:10 PM CDT Oxygen Saturation 95% 04/24/2022 3:10 PM CDT Inhaled Oxygen Concentration - - Weight - - Height - - Body Mass Index - - documented in this encounter Progress Notes Corina Graham RN - 04/24/2022 1:20 PM CDT Annual Wellness Visit CARE TEAM / RESOURCES: Patient Care Team: Adarsh Carpenter MD as PCP - General Eye Care: [facility] Dental Care: 2018 Pharmacy: [facility] - [address] [address] [facility] [address] [place] [phone] [id number] - [place] [address] [place] [facility] [address] [place] [address] [facility] [address] [facility] [address] [facility] [phone] [id number] - [place], [place] - [address] [facility] [phone] [place] [address] Other: [place] Visit Vitals BP 114/78 (BP Location: Right arm, Patient Position: Sitting) Pulse 88 Temp 36.7 ??C (98 ??F) (Temporal) Resp 20 SpO2 95% Smoking Status Never Smoker Allergies Allergen Reactions ??? Penicillins Other reaction(s): *Unknown - Pt Doesn't Remember, Other (see comments) Delirium, questionable anaphylactic reaction ??? Bee Venom ??? Penicillin V Potassium Outpatient Encounter Medications as of 04/24/2022 Medication Sig Dispense Refill ??? acetaminophen (TYLENOL) 500 MG tablet Take 500 mg by mouth if needed ??? atorvastatin (Lipitor) 20 MG tablet Take 1 tablet (20 mg total) by mouth every night Start with 0.5 tab x8 days then 1 tab nightly 90 tablet 3 ??? baclofen (LIORESAL) 10 MG tablet TAKE ONE TABLET BY MOUTH THREE TIMES A DAY FOR MULTIPLE SCLEROSIS 270 tablet 3 ??? Catheters (Self-Cath Straight Tip) misc USE DIRECTED 120 each 11 ??? multivitamin (THERAGRAN) tablet Take 1 tablet by mouth 1 (one) time each day (Patient not taking: No sig reported) ??? oxybutynin (DITROPAN) 5 MG tablet TAKE ONE TABLET BY MOUTH TWICE A DAY 180 tablet 3 ??? Sennosides (SENNA LAXATIVE) 25 MG tablet May take one tab 1-2 times per day if needed for constipation. 180 each 3 ??? warfarin (COUMADIN) 2 MG tablet Take by mouth 2 mg Sun, Sun; 4 mg all other days AND as directedby Anticoag Clinic 155 tablet 3 ??? warfarin (COUMADIN) 5 MG tablet Take 1 tablet (5 mg) PO daily on Mon, Wed, Fri; take 1/2 tablet (2.5 mg) on all other days and as directed by Anticoagulation clinic 60 tablet 3 No facility-administered encounter medications on file as of 04/24/2022. Immunization History Administered Date(s) Administered ??? COVID-19, mRNA, LNP-S, PF, 30mcg/0.3mL dose Pfizer 12/08/2020, 12/29/2020 ??? Flu Vaccine 50-64yrs Flublok (Egg Free) 07/12/2020 ??? Flu Vaccine High Dose 65yrs and Older IM 08/01/2017 ??? INFLUENZA QUADRIVALENT MDV (IM) 07/29/2015 ??? Influenza 6mo-49yrs Quad Preservative Free IM 07/29/2015, 07/11/2016, 08/27/2017, 06/24/2021 ??? Influenza Split 11/03/2009 ??? Influenza TIV (IM) 08/06/2014 ??? Influenza, Unspecified 11/03/2009, 07/29/2015, 07/11/2016, 08/01/2017 ??? Pneumococcal Conjugate 13-Valent 08/27/2017 ??? Pneumococcal Polysaccharide 08/06/2014 ??? Tdap 11/03/2002, 02/26/2014 Patient Active Problem List Diagnosis ??? Anemia ??? Family history of malignant neoplasm of gastrointestinal tract ??? alf current use of anticoagulant ??? Moderate episode of recurrent major depressive disorder (HCC) ??? Multiple sclerosis (HCC) ??? Neuromuscular dysfunction of bladder ??? Pulmonary embolism (HCC) ??? Paraplegia (HCC) ??? Sensorineural hearing loss ??? Spastic paraparesis ??? Other pulmonary embolism without acute cor pulmonale (HCC) ??? Pressure injury of buttock, stage 1 ? ? Hyperlipidemia LDL goal <100 ??? Dry skin dermatitis ??? Recurrent kidney stones Past Medical History: Diagnosis Date ??? Allergic rhinitis ??? Clotting disorder (HCC) ??? Depression ??? Neuromuscular disorder (HCC) MS ??? Pneumonia THREE ??? Sepsis (HCC) 08/2019 Hospitalized from UTI ??? Urinary tract infection THREE ??? Varicella ??? Visual impairment GLASSES Past Surgical History: Procedure Laterality Date ??? ACHILLES TENDON SURGERY ??? ADENOIDECTOMY ??? BONE GRAFT 1982 ??? FRACTURE SURGERY LEFT ARM, LEFT LEG - Left arm plate, Right leg torito ??? TOE SURGERY screw left toe ??? TONSILLECTOMY with adenoidectomy Social History Socioeconomic History ??? Marital status: Spouse name: nelia ??? Number of children: 4 Occupational History ??? Occupation: Disability Tobacco Use ??? Smoking status: Never Smoker ??? Smokeless tobacco: Former User Vaping Use ??? Vaping Use: Never used Substance and Sexual Activity ??? Alcohol use: No ??? Drug use: No ??? Sexual activity: Never Social Determinants of Health Financial Resource Strain: Low Risk ??? Difficulty of Paying Living Expenses: Not hard at all Food Insecurity: No Food Insecurity ??? Worried About Running Out of Food in the Last Year: Never true ??? Ran Out of Food in the Last Year: Never true Transportation Needs: No Transportation Needs ??? Lack of Transportation (Medical): No ??? Lack of Transportation (Non-Medical): No Physical Activity: Inactive ??? Days of Exercise per Week: 0 days ??? Minutes of Exercise per Session: 0 min Stress: No Stress Concern Present ??? Feeling of Stress : Not at all Social Connections: Moderately Integrated ??? Frequency of Communication with Friends and Family: More than three times a week ??? Frequency of Social Gatherings with Friends and Family: Twice a week ??? Attends Congregational Services: 1 to 4 times per year ??? Active Member of Clubs or Organizations: No ??? Attends Club or Organization Meetings: Never ??? Marital Status: Intimate Partner Violence: Not At Risk ??? Fear of Current or Ex-Partner: No ??? Emotionally Abused: No ??? Physically Abused: No ??? Sexually Abused: No Housing Stability: Low Risk ??? Unable to Pay for Housing in the Last Year: No ??? Number of Places Lived in the Last Year: 1 ??? Unstable Housing in the Last Year: No General Care Management Assessment completed with:: Patient Enrolled in care management program:: No Living arrangement:: Spouse Support system:: Family, Friends, Spouse Family conflict:: No Type of residence:: Private residence Home care services:: No Equipment used at home:: Wheelchair Communication device:: Yes Financial problems:: No Transportation issues:: No Transportation means:: Regular car, Family Bed or wheelchair confined:: Yes Diet:: Regular Inadequate nutrition:: No Exercise:: Unable to exercise Inadequate activity/exercise:: Yes Medication adherence problem:: No Experiencing side effects from current medications:: No History of falls in last 6 months:: No Difficulty keeping appointments:: No Family aware of the patient's advance care planning wishes:: Yes Congregational or spiritual beliefs that impact treatment:: No Chronic pain:: No Pain Assessment Scored: 0-No pain and location: Utilization / Navigation of Health Care Systems: Does not overuse the [facility], Acute Care, eVisits or Emergency Room. PHQ-9 mental health screening performed. Scored: STEVE-7 anxiety screening performed. Scored: 0 / Mini-Cog test performed. Scored: 0 / CAGE-AID test performed. BMI/weight management reviewed. BMI: There is no height or weight on file to calculate BMI. BMI less than 30 referral to nutrition education not applicable. Fall Risk Assessment performed. Scored: Tug time: 35 seconds Declines referral for Physical Therapy for fall risk. Colon Cancer Screening: Last done: 2016 Due: 2021 Breast Cancer Screening: Last done: NA Osteoporosis Screening: Last done: NA Prostate Cancer Screening: Lab Results Component Value Date PSA 1.9 11/03/2021 Hepatitis C Screening: Lab Results Component Value Date HEPCAB NON-REACTIVE 11/03/2021 Glaucoma Screening: Preformed at outside facility AAA Screening: Not indicated Lung Cancer Screening: Not indicated Findings: Patient in clinic accompanied by . Does not have advanced healthcare directive and left clinic without the paperwork. Will need to discuss at next visit. Wheelchair bound and unable to walk or stand. Visit to get paperwork for new wheelchair. The following referral(s) were created: None. What is an Annual Wellness Visit? Yearly appointment performed by another provider to create or update the personalized prevention plan. This plan helps prevent illness based on your current health and risk factors. ?? Medicare part B coverage the Annual Wellness Visit 100%. ?? Keep in mind that the annual wellness visit is not head to toe physical. ?? The service is similar to but separate from a one time a Welcome to Medicare Preventative Visit. The following information is regarding different screenings that will be discussed. Colon Cancer: ?? Age 50 and up (usually done until age 75) Breast Cancer: Medicare Part B (Medical Insurance) covers a Screening mammogram once every 12 months (11 full months must have passed since the last screening) ?? Women with Part B 40 or older are covered. Provider discretion beyond age 74 ?? Women with Part B between 35-39 can get one baseline mammogram Osteoporosis: Medicare Part B (Medical Insurance) covers this test once every 24 months for people who meet the criteria below: ?? A woman whose doctor determines both of these (based on her medical history and other findings): She's estrogen deficient AND She's at risk for osteoporosis ?? A person whose X-rays show possible osteoporosis, osteopenia, or vertebral fractures ?? A person taking prednisone or steroid-type drugs or is planning to begin this treatment ?? A person who has been diagnosed with primary hyperparathyroidism ?? A person who is being monitored to see if their osteoporosis drug therapy is working Prostate Cancer: Medicare Part B (Medical Insurance) covers: ?? Digital rectal exam: Once every 12 months ?? Prostate specific antigen (PSA) test: Once every 12 months ?? All men over 50 (beginning the day after your 50th birthday) with Part B are covered. Hepatitis C: Medicare covers one Hepatitis C screening test. Medicare also covers yearly repeat screening for certain people at high risk. ?? Those at high risk because they use or used illicit injection drugs. ?? Those who had a blood transfusion before 1991. ?? Those born between 1423-1020. Glaucoma: Medicare Part B (Medical Insurance) covers a glaucoma test once every 12 months for people at high risk for glaucoma. You're at high risk if one of these applies: ?? You have diabetes. ?? You have a family history of glaucoma. ?? You're and 50 or older. ?? You're and 65 or older. AAA: Medicare Part B (Medical Insurance) covers a one-time abdominal aortic aneurysm ultrasound for people who meet the criteria below: ?? You have a family history of abdominal aortic aneurysms. ?? You???re a man age 65 to 75 and have smoked at least 100 cigarettes in your lifetime. Lung Cancer: Medicare Part B (Medical Insurance) covers a lung cancer screening with Low Dose Computed Tomography(LDCT) once per year to those who meet ALL of these conditions: ?? They're 50-77. ?? They're asymptomatic (they don???t have signs or symptoms of lung cancer). ?? They're either a current smoker or have quit smoking within the last 15 years. ?? They have a tobacco smoking history of at least 20 ???pack years?? (an average of one pack a dayfor 20 years). documented in this encounter Plan of Treatment Not on filedocumented as of this encounter Visit Diagnoses Diagnosis Medicare annual wellness visit, subseque nt Advanced directives, counseling/discussi on Other specified counseling documented in this encounter Additional Health Concerns Infection Onset Date Last Indicated Resolved Time MSSA 10/04/2018 10/04/2018 06/28/2022 8:27 AM CDT documented as of this encounter Care Teams Strike On Machine Operator Relationship Specialty Start Date End Date Adarsh Carpenter MD PCP - General 05/07/[address] [place] [address] documented as of this encounter
--- OUTSIDE RECORDS SUMMARY | 2022-06-30 08:24 | XMS_ITS | Encounter Summary ---
:1960 Author Organization [facility] Address [address] [place] [address] Care Team Providers Name Role Phone Adarsh Carpenter MD Primary Care Provider Encounter Details Date Type Department Care Team Description 12/22/2021 Anticoagulation - SE Terri Spivey custodial current Warfarin Visit Anticoag/Internal J, RN use of anticoagulant Medicine - Third [address] [place] [address] [phone] Social History Tobacco Use Types Packs/Day Years [...] 1 to 4 times per year 04/01 synagogue services? Do you belong to any clubs [...] encounter Progress Notes Terri Spivey RN - 12/22/2021 2:20 PM CDT Anticoagulation Clinic - RN Protocol Screening INR RESULTS: INR (no units) Date Value 12/22/2021 2.20 (A) DOSE PLAN: 2 mg every Tue, Sat; 4 mg all other days DOSE CHANGE: No change NEXT INR: 01/19/22 VERIFY PREVIOUS DOSE PLAN Verified with the patient nurse Trudy MISSED/EXTRA DOSES No MEDICATION CHANGES No DIET OR ALCOHOL CHANGES No RECENT ILLNESS/ HOSPITALIZATIONS No ABNORMAL BLEEDING OR BRUISING N/A FALLS OR INJURIES No NEW PAIN SYMPTOMS No NEW SHORTNESS OF BREATH No NEW NEUROLOGICAL SYMPTOMS No [facility] Trudy nurse, indicated that the INR range goal is such limited and she states that she discussed this with previous [facility] nurse to check with PCP to have his INR range change to 2-3 because every 2 week we keep adjusting his dosing to meet the 2.5 - [address]. [address] Carpenter agreed to change his INR range goal to 2-3 then [facility] need to change his INR recheck date to 01/19/22. If Dr. Carpenter does not agree to have his INR recheck date then no changes needed magali made for the recheck date. INR results reviewed with the patient nurse Trudy. She verbalized understanding of anticoagulation dose plan and date of next INR. AVS faxed to [facility] Adarsh Carpenter MD - 12/22/2021 2:20 PM CDT I am not sure why is range is 2.5-3.0 or when this may have occurred. You may change this back to 2.0-3.0. Terri Spivey RN - 12/22/2021 2:20 PM CDT Noted and [facility] will update his INR range goal. Thank you Terri Spivey RN - 12/22/2021 2:20 PM CDT [facility] called and informed Trudy that patient new INR recheck date and new range goal. Sofia Denson RN - 12/22/2021 2:20 PM CDT Please review message regarding range. documented in this encounter Plan of Treatment Not on filedocumented as of this encounter Procedures Procedure Name Priority Date/Time Associated Diagnosis Comme nts PROTIME-INR Routine 12/22/2021 Results for thi s procedure are in the resu lts section. documented in this encounter Results (ABNORMAL) Protime-INR (12/22/2021) P athologist Signature INR 2.20 (A) 0.9 - 1.1 [facility] Comment: [facility] - POC Protime [facility] Specimen (Source) Anatomical Location Collection Method / Collectio n Time Received Time / Laterality Volume Blood (Blood, 12/22/2021 Venous) Historical Provider LAB BLOOD ORDERABLES Performing Organization Address City/State/ZIP Code Phon e Number [facility] [address] [place] [address] documented in this encounter Visit Diagnoses Diagnosis custodial current use of anticoagulant - Primary documented in this encounter Additional Health Concerns Infection Onset Date Last Indicated Resolved Time MSSA 10/04/2018 10/04/2018 06/28/2022 8:27 AM CDT documented as of this encounter Care Teams Pre K Special Education Teacher Relationship Specialty Start Date End Date Adarsh Carpenter MD PCP - General 05/07/[address] [place] [address] documented as of this encounter
--- OUTSIDE RECORDS SUMMARY | 2022-06-30 08:24 | XMS_ITS | Encounter Summary ---
:[address] [facility] Address [address] [place] [address] Care Team Providers Name Role Phone Adarsh Carpenter MD Primary Care Provider Encounter Details Date Type Department Care Team Description 02/14/2022 Orders Only [place] Adarsh Carpenter MD [address] [place], [place] [address] [place], [place] [phone] (Wo rk) Social History Tobacco Use Types [...] or relatives? How often do you attend yazdanism or 1 to 4 times per year 04/01 jewish services? Do you belong to any clubs or No 04/24/2022 organizations such as yazdanism groups, unions, fraternal or athletic groups, or [...] place to sleep or slept in a fci (including now)? Sex Assigned at Date Recorded Not on file documented as of this encounter Plan of Treatment Not on filedocumented as of this encounter Visit Diagnoses Not on filedocumented in this encounter Additional Health Concerns Infection Onset Date Last Indicated Resolved Time MSSA 10/04/2018 10/04/2018 06/28/2022 8:27 AM CDT documented as of this encounter Care Teams Patient Experience Coordinator Relationship Specialty Start Date End Date Adarsh Carpenter MD PCP - General 05/07/[address] [place] [address] documented as of this encounter
--- OUTSIDE RECORDS SUMMARY | 2022-06-30 08:24 | XMS_ITS | Encounter Summary ---
:1960 Author Organization [facility] Address [address] [place] [address] Care Team Providers Name Role Phone Adarsh Carpenter MD Primary Care Provider Encounter Details Date Type Department Care Team Description 04/02/2022 Orders Only [place] Wade Donovan, Frequency of micturition (Pr imary Dx); [address] [facility] [address] [place], [place] [address] [phone] [place] [address] Social History Tobacco Use Types Packs/Day Years [...] 1 to 4 times per year 04/01 evangelical services? Do you belong to any clubs [...] Progress Notes Wade Donovan MD - 04/02/2022 12:38 PM CDT Called and spoke to patient and Nelia about positive urine culture. Patient has very foul smelling urine and bits of white chunks in it. Overall though he is doing well. Maybe a little more increased frequency of urination. Using clean catheters. No blood or discomfort. Not a clear indication for treatment right now but after discussing they would like an antibiotic sent. They will call us later this week and give an update on his condition. Diagnosis Plan 1. Frequency of micturition 2. Cystitis nitrofurantoin, macrocrystal-monohydrate, (MACROBID) 100 MG capsule documented in this encounter Plan of Treatment Not on filedocumented as of this encounter Visit Diagnoses Diagnosis Frequency of micturition - Primary Urinary frequency Cystitis Unspecified cystitis documented in this encounter Additional Health Concerns Infection Onset Date Last Indicated Resolved Time MSSA 10/04/2018 10/04/2018 06/28/2022 8:27 AM CDT documented as of this encounter Care Teams Production Quality Manager Relationship Specialty Start Date End Date Adarsh Carpenter MD PCP - General 05/07/[address] [place] [address] documented as of this encounter
--- OUTSIDE RECORDS SUMMARY | 2022-06-30 08:24 | XMS_ITS | Encounter Summary ---
:1960 Author Organization [facility] Address [address] [place] [address] Care Team Providers Name Role Phone Adarsh Carpenter MD Primary Care Provider Reason for Visit Reason Onset Date Comments results 11/17/2021 Encounter Details Date Type Department Care Team Description 11/17/2021 Telephone [place] Carolina Miller, SECURITY PATROL DRIVER, GENERAL CAR SUPERVISOR YARD results [address] [place], [place] [address] [place] [address] [phone] (Wo rk) Social History Tobacco Use Types [...] 1 to 4 times per year 04/01 sabianist services? Do you belong to any clubs [...] this encounter Miscellaneous Notes Telephone Encounter - Vidhya Bain LPN - 11/17/2021 3:11 PM CST noted ING EQUIPMENT OPERATOR Telephone Encounter - Adarsh Carpenter MD - 11/17/2021 3:08 PM CST I called and talked to Maria Fernanda regarding his CT report. He has a 6 mm stone in his kidney but nonobstructing can be just watched for now. I suspect he is having more troubles caffeine himself or being catheterized secondary to potential stricture formation of the urethra. When to get the 12-gauge catheters they will test attempt to use those if he has problems or to let us know he may have to see a urologist. ING EQUIPMENT OPERATOR Telephone Encounter - Vidhya Bain LPN - 11/17/2021 1:45 PM CST Please advise in Hak's absence. ING EQUIPMENT OPERATOR Telephone Encounter - Helena Cruz - 11/17/2021 1:14 PM CST Pt had a CT scan done last week, calling for results. ING EQUIPMENT OPERATOR documented in this encounter Plan of Treatment Not on filedocumented as of this encounter Visit Diagnoses Not on filedocumented in this encounter Additional Health Concerns Infection Onset Date Last Indicated Resolved Time MSSA 10/04/2018 10/04/2018 06/28/2022 8:27 AM CDT documented as of this encounter Care Teams Manager Social Media Relationship Specialty Start Date End Date Adarsh Carpenter MD PCP - General 05/07/[address] [place] [address] documented as of this encounter
--- OUTSIDE RECORDS SUMMARY | 2022-06-30 08:25 | XMS_ITS | Encounter Summary ---
:1960 Author Organization [facility] Address [address] [place] [address] Care Team Providers Name Role Phone Adarsh Carpenter MD Primary Care Provider Reason for Visit Reason Comments Med Refill Encounter Details Date Type Department Care Team Description 11/03/2021 Refill SE Anticoag/Internal Ti [place], Oth er pulmonary embolism Medicine - Third Tre or AUTOMATIC DRY STARCH OPERATOR, AIRFIELD SERVICES OFFICER without acute cor [address] [place] pulmonale, [place] [address] [place] chronicity ([facility]) [phone] (Wo rk) Social History Tobacco Use Types [...] or relatives? How often do you attend cheondoism or 1 to 4 times per year 04/01 worship services? Do you belong to any clubs or No 04/24/2022 organizations such as cheondoism groups, unions, fraternal or athletic groups, or [...] this encounter Miscellaneous Notes Telephone Encounter - Glenys Munoz MA - 11/03/2021 8:34 AM CST RX sent on 10/28/2021 for 155 with 3 refills E-Prescribing Status: Receipt confirmed by pharmacy (10/28/2021 3:20 PM PEANUT SHELLER) UT SHELLER documented in this encounter Plan of Treatment Not on filedocumented as of this encounter Visit Diagnoses Diagnosis Other pulmonary embolism without acute c or pulmonale, unspecified chronicity (HCC) documented in this encounter Additional Health Concerns Infection Onset Date Last Indicated Resolved Time MSSA 10/04/2018 10/04/2018 06/28/2022 8:27 AM CDT documented as of this encounter Care Teams Zanjero Relationship Specialty Start Date End Date Adarsh Carpenter MD PCP - General 05/07/[address] [place] [address] documented as of this encounter
--- OUTSIDE RECORDS SUMMARY | 2022-06-30 08:25 | XMS_ITS | Encounter Summary ---
:1960 Author Organization [facility] Address [address] [place] [address] Care Team Providers Name Role Phone Adarsh Carpenter MD Primary Care Provider Encounter Details Date Type Department Care Team Description 09/15/2021 Anticoagulation - [place], senior care current use of anticoagulant (Primary Dx); Warfarin Visit Anticoag/Gilberto Castillo RN Other pulmonary embolism without acute c or pulmonale, unspecified chronicity (HCC) Medicine - Third [address] [place] [id number] Social History Tobacco Use [...] encounter Progress Notes Anna Betts RN - 09/15/2021 3:00 PM CST Anticoagulation Clinic - RN INR RESULTS: INR (no units) Date Value 09/15/2021 2.80 (A) DOSE PLAN: 2mg every e, Thur, Sat; 4mg all other days DOSE CHANGE: No change NEXT INR: 09/29/21 [facility] faxed INR results, instructions, and orders to [facility]. NSE EXAMINER documented in this encounter Plan of Treatment Not on filedocumented as of this encounter Procedures Procedure Name Priority Date/Time Associated Diagnosis Comme nts PROTIME-INR Routine 09/15/2021 Results for thi s procedure are in the resu lts section. documented in this encounter Results (ABNORMAL) Protime-INR (09/15/2021) P athologist Signature INR 2.80 (A) 0.9 - 1.1 HOME HEALTH POINT OF CARE TESTING Protime HOME HEALTH POINT OF CARE TESTING Specimen (Source) Anatomical Location Collection Method / Collectio n Time Received Time / Laterality Volume Blood (Blood, Venous) Historical Provider LAB BLOOD ORDERABLES Performing Organization Address City/State/ZIP Code Phon e Number HOME HEALTH POINT OF CARE TESTING documented in this encounter Visit Diagnoses Diagnosis senior care current use of anticoagulant - Primary Other pulmonary embolism without acute c or pulmonale, unspecified chronicity (HCC) documented in this encounter Additional Health Concerns Infection Onset Date Last Indicated Resolved Time MSSA 10/04/2018 10/04/2018 06/28/2022 8:27 AM CDT documented as of this encounter Care Teams Electroslag Welding Machine Operator Relationship Specialty Start Date End Date Adarsh Carpenter MD PCP - General 05/07/[address] [place] [address] documented as of this encounter
--- OUTSIDE RECORDS SUMMARY | 2022-06-30 08:25 | XMS_ITS | Encounter Summary ---
:1960 Author Organization [facility] Address [address] [place] [address] Care Team Providers Name Role Phone Adarsh Carpenter MD Primary Care Provider Encounter Details Date Type Department Care Team Description 08/18/2021 Anticoagulation - [place], residential current use of anticoagulant (Primary Dx); Warfarin Visit Anticoag/Gilberto Castillo RN Other pulmonary embolism without acute c or pulmonale, unspecified chronicity (HCC) Medicine - Third [address] [place] [id number] Social History Tobacco Use [...] or relatives? How often do you attend mu-ism or 1 to 4 times per year 04/01 quaker services? Do you belong to any clubs or No 04/24/2022 organizations such as mu-ism groups, unions, fraternal or athletic groups, or [...] place to sleep or slept in a longterm (including now)? Sex Assigned at Date Recorded Not on file documented as of this encounter Progress Notes Anna Betts RN - 08/18/2021 1:37 PM CST Anticoagulation Clinic - RN Protocol Screening INR RESULTS: INR (no units) Date Value 08/18/2021 2.40 (A) DOSE PLAN: 2mg every Sun, , Sat; 4mg all other days DOSE CHANGE: No change NEXT INR: 09/01/21 VERIFY PREVIOUS DOSE PLAN Verified with nurse MISSED/EXTRA DOSES No MEDICATION CHANGES No DIET OR ALCOHOL CHANGES No RECENT ILLNESS/ HOSPITALIZATIONS No ABNORMAL BLEEDING OR BRUISING No FALLS OR INJURIES No NEW PAIN SYMPTOMS No NEW SHORTNESS OF BREATH No NEW NEUROLOGICAL SYMPTOMS No INR results reviewed with the Home Health nurse and she reported no changes that she was aware of atthis time. Nurse verbalized understanding of anticoagulation dose plan and date of next INR. AVS mailed to patient. AVS sent through [facility]. [facility] faxed INR results, instructions, and orders to [facility] . CREAM VENDOR documented in this encounter Plan of Treatment Not on filedocumented as of this encounter Procedures Procedure Name Priority Date/Time Associated Diagnosis Comme nts PROTIME-INR Routine 08/18/2021 Results for thi s procedure are in the resu lts section. documented in this encounter Results (ABNORMAL) Protime-INR (08/18/2021) P athologist Signature INR 2.40 (A) 0.9 [...] documented in this encounter Visit Diagnoses Diagnosis residential current use of anticoagulant - Primary Other pulmonary embolism without acute c or pulmonale, unspecified chronicity (HCC) documented in this encounter Additional Health Concerns Infection Onset Date Last Indicated Resolved Time MSSA 10/04/2018 10/04/2018 06/28/2022 8:27 AM CDT documented as of this encounter Care Teams Block Hacker Relationship Specialty Start Date End Date Adarsh Carpenter MD PCP - General 05/07/[address] [place] [address] documented as of this encounter
--- OUTSIDE RECORDS SUMMARY | 2022-06-30 08:25 | XMS_ITS | Encounter Summary ---
:[address] [facility] Address [address] [place] [address] Care Team Providers Name Role Phone Adarsh Carpenter MD Primary Care Provider Reason for Visit Reason Onset Date Comments Catheter information 11/03/2021 Encounter Details Date Type Department Care Team Description 11/03/2021 Telephone [place] Philip, Catheter information [address] [place], [place] [address] [facility] [address] [place] [phone] [place] [address] Social History Tobacco Use Types Packs/Day Years [...] or relatives? How often do you attend mandaen or 1 to 4 times per year 04/01 holiness services? Do you belong to any clubs or No 04/24/2022 organizations such as mandaen groups, unions, fraternal or athletic groups, or [...] this encounter Miscellaneous Notes Telephone Encounter - Vidhay Bain LPN - 11/04/2021 4:28 PM CST Noted please fax T SERVICES ASSISTANT Telephone Encounter - Carolina Miller APRN, CNP - 11/04/2021 4:17 PM CST Will change ref number and reprint. T SERVICES ASSISTANT Telephone Encounter - Vidhya Bain LPN - 11/04/2021 4:06 PM CST Since the patient does not have a enlarged prostate we will need to use reference number [id number] Can you change the referral please. Also they stated that it needs to be signed because of Medicare. Are you able to print it where you are and fax to the number below so they get it today if possible? T SERVICES ASSISTANT Telephone Encounter - Carolina Miller APRN, CNP - 11/04/2021 3:00 PM CST Psa came back normal 1.9. Cholesterol high. A1C borderline. Need to work on his diet a bit more. Recommend statin therapy for cholesterol like lipitor but can discuss in detail at follow up. Will do regular catheter colombian 18 to see if this will help. Reference number [id number] added to DME printed to 1370. Can consider doing a medication to help with sphincter relaxation/bp. See if Dr. Donovan can sign on my behalf thanks. T SERVICES ASSISTANT Telephone Encounter - Vidhya Bain LPN - 11/04/2021 12:19 PM CST Labs still in process T SERVICES ASSISTANT Telephone Encounter - Carolina Miller APRN, CNP - 11/04/2021 11:18 AM CST We don't know if he has an enlarged prostate. Will wait on psa result first. Will update once labs back. T SERVICES ASSISTANT Telephone Encounter - Vidhya Bain LPN - 11/04/2021 11:06 AM CST Called the pharmacy and they need a clarification on the order then it faxed to them It needs to state that he has an enlarged prostate unable to straight cath without coude on the letter so that they can justify using the coude catheters. It also needs to include this reference number: [id number] [facility] [phone] RUBIA T SERVICES ASSISTANT Telephone Encounter - Veronica Glez - 11/03/2021 3:31 PM CST Referral and face sheet faxed to [facility] radiology. Order, face sheet and OV notes faxed to [facility]. T SERVICES ASSISTANT Telephone Encounter - Vidhya Bain LPN - 11/03/2021 2:51 PM CST Fax to below facility, DME, Prescription, and dictation with facesheet. T SERVICES ASSISTANT Telephone Encounter - Carolina Miller APRN, CNP - 11/03/2021 2:50 PM CST Printed Dme started for cath supply kit, 18 colombian coude. 1 yr supply. T SERVICES ASSISTANT Telephone Encounter - Vidhya Bain LPN - 11/03/2021 1:56 PM CST 14 colombian straight tip cath: currently They can get at [facility] 12 [place]omb[place] Could order: 16 colombian straight tip cath 18 is a short supply Please send the new prescription to the below: [facility] [phone] The patient pays up front for catheters out of pocket and the pharmacy takes care of paperwork and reimbursement process. T SERVICES ASSISTANT documented in this encounter Plan of Treatment Not on filedocumented as of this encounter Visit Diagnoses Not on filedocumented in this encounter Additional Health Concerns Infection Onset Date Last Indicated Resolved Time MSSA 10/04/2018 10/04/2018 06/28/2022 8:27 AM CDT documented as of this encounter Care Teams Entry Level Recruiter Relationship Specialty Start Date End Date Adarsh Carpenter MD PCP - General 05/07/[address] [place] [address] documented as of this encounter
--- OUTSIDE RECORDS SUMMARY | 2022-06-30 08:25 | XMS_ITS | Encounter Summary ---
:1960 Author Organization [facility] Address [address] [place] [address] Care Team Providers Name Role Phone Adarsh Carpenter MD Primary Care Provider Reason for Referral Consultation (Routine) - Authorized Specialty Diagnoses / Procedures Referred By Contact Refer red To Contact Diagnoses Multiple sclerosis (HCC) Recurrent kidney stones Neuromuscular dysfunction of bladder Carolina Mliler APRN, CNP [facility] [address] [facility] [address] [place] [address] [place] [address] Referral ID Status Reason Start Date Expiration Date Visits V isits Requested Authorized [id number] Authorized 11/04/2021 11/04/2022 1 1 NDENCY PROGRAM DIRECTOR Reason for Visit Reason Onset Date Comments referral arthur 11/04/2021 Encounter Details Date Type Department Care Team Description 11/04/2021 Telephone [place] Seg[place], referral arthur [address] [facility] [address] [place], [place] [address] [facility] [address] [place] [phone] [place] [address] (Wo rk) Social History Tobacco Use Types [...] 1 to 4 times per year 04/01 roman catholic services? Do you belong to any clubs or No 04/24/2022 organizations such as hoahaoism groups, unions, fraQualiLife or athletic groups, or school groups? How [...] this encounter Miscellaneous Notes Telephone Encounter - Carolina Miller APRN, CNP - 11/04/2021 2:48 PM CST Redid referral. NDENCY PROGRAM DIRECTOR Telephone Encounter - Vidhya Bain LPN - 11/04/2021 12:25 PM CST [facility]u called to clarify what test you would like done. Please replace referral with test requesting as soon as you are able. Thank you NDENCY PROGRAM DIRECTOR Telephone Encounter - Delonte Jara - 11/04/2021 12:13 PM CST malu called to report referral was sent but not clear on what needs to be done(ct of abdomin and pelvis was ordered by [facility]) fax number [phone] NDENCY PROGRAM DIRECTOR documented in this encounter Plan of Treatment Scheduled Referrals Name Type Priority Associated Diagnoses Order S chedule Ambulatory External Outpatient Referral Routine Multiple scler osis Ordered: Referral (HCC) 11/04/2021 Recurrent kidney stones Neuromuscular dysfunction of bladder documented as of this encounter Visit Diagnoses Diagnosis Multiple sclerosis (HCC) - Primary Multiple sclerosis Recurrent kidney stones Neuromuscular dysfunction of bladder documented in this encounter Additional Health Concerns Infection Onset Date Last Indicated Resolved Time MSSA 10/04/2018 10/04/2018 06/28/2022 8:27 AM CDT documented as of this encounter Care Teams Naphtha Washing System Operator Relationship Specialty Start Date End Date Adarsh Carpenter MD PCP - General 05/07/[address] [place] [address] documented as of this encounter
--- OUTSIDE RECORDS SUMMARY | 2022-06-30 08:25 | XMS_ITS | Encounter Summary ---
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 Neuromuscular dysfunction of bladder; [address] [place], [place] Encounter for hepatitis C sc reening test for low risk patient; [phone] [id number] Recurrent kidney stones; [phone] Dry skin dermat itis (Work) Social History Tobacco Use Types Packs/Day [...] Sign Reading Time Taken Comments Blood Pressure 132/82 11/03/2021 10:22 AM FIELD SERVICES DIRECTOR Pulse 80 11/03/2021 10:22 AM FIELD SERVICES DIRECTOR Temperature 36.4 ??C (97.5 ??F) 11/03/2021 10:22 AM FIELD SERVICES DIRECTOR Respiratory Rate 16 11/03/2021 10:22 AM FIELD SERVICES DIRECTOR Oxygen Saturation 94% 11/03/2021 10:22 AM FIELD SERVICES DIRECTOR Inhaled Oxygen Concentration - - Weight - - Height - - Body Mass Index - - documented in this encounter Patient Instructions Patient InstructionsTdarion Garcia APRN, CNP - 11/03/2021 10:20 AM CST Help with stool: citrucel daily or twice a day, or metamucil daily. See if we can have a BM twice a week. To help with the catheter insertion. Will look into different catheter size if this is an option. May look into apple cider vinegar. Push fluids if able. CT abd/pelvis mize. D SERVICES DIRECTOR documented in this encounter Progress Notes Nahomy Garcia APRN, CNP - 11/03/2021 10:20 AM CST Subjective Patient ID: Dwain Hinds is a 61 y.o. male. Chief Complaint Patient presents with ??? Prostate Check HPI The patient presents to the [facility] with his dad for concern of enlarged prostate. He has a history of MS, neuromuscular dysfunction of bladder, and paraplegia. He does self intermittent I&O cath and lately has been having trouble with catheter insertion, obstruction alf through as something is getting caught. Currently using 14 Mohawk size. He denies any hematuria. His notes that he is not drinking enough fluids. 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 They've been since age 17. The following portions of the patient's chart were reviewed in this encounter and updated as appropriate: Allergies Meds Med Hx Surg Hx Allergies Allergen Reactions ??? Penicillins Other reaction(s): *Unknown - Pt Doesn't Remember, Other (see comments) Delirium, questionable anaphylactic reaction ??? Bee Venom ??? Penicillin V Potassium Current Outpatient Medications: ??? acetaminophen (TYLENOL) 500 MG tablet, Take 500 mg by mouth if needed, Disp: , Rfl: ??? baclofen (LIORESAL) 10 MG tablet, TAKE ONE TABLET BY MOUTH THREE TIMES A DAY FOR MULTIPLE SCLEROSIS, Disp: 270 tablet, Rfl: 3 ??? Catheters (Self-Cath Straight Tip) [facility], USE DIRECTED, Disp: 120 each, Rfl: 11 ??? oxybutynin (DITROPAN) 5 MG tablet, TAKE ONE TABLET BY MOUTH TWICE A DAY, Disp: 180 tablet, Rfl: 3 ??? Sennosides (SENNA LAXATIVE) 25 MG tablet, May take one tab 1-2 times per day if needed for constipation., Disp: 180 each, Rfl: 3 ??? warfarin (COUMADIN) 2 MG tablet, Take by mouth 2 mg Sun, Sat; 4 mg all other days AND as directed by Anticoag Clinic, Disp: 155 tablet, Rfl: 3 ??? warfarin (COUMADIN) 5 MG tablet, Take 1 tablet (5 mg) PO daily on Mon, Wed, Fri; take 1/2 tablet(2.5 mg) on all other days and as directed by Anticoagulation clinic, Disp: 60 tablet, Rfl: 3 ??? multivitamin (THERAGRAN) tablet, Take 1 tablet by mouth 1 (one) time each day (Patient not taking: Reported on 11/03/2021), Disp: , Rfl: Review of Systems Gastrointestinal: Negative for constipation (States he use senna 50 mg nightly, has weekly soft bowel movements.) and diarrhea. All other systems negative except HPI Objective Visit Vitals BP 132/82 (BP Location: Left arm, Patient Position: Sitting, BP Cuff Size: Adult) Pulse 80 Temp 36.4 ??C (97.5 ??F) (Temporal) Resp 16 SpO2 94% Smoking Status Never Smoker Physical Exam General: Very alert, pleasant gentleman in no acute distress not ill-appearing. Neuro: Sitting in powered wheelchair, able to self manipulate the wheelchair on his own. He has goodright upper extremity function. Lungs: Clear to auscultation bilaterally, slight diminished lung sounds at bilateral lower lobes no cough breathing on room air without distress and speech is without pauses. Heart: RRR, S1-S2 GI: Distended abdomen, tympany present at upper quadrants, nontender, bowel sounds hyperactive x4. Lower legs: Trace edema bilaterally. Skin of lower legs appears shiny, mild brown venous discoloration. Skin: Folliculitis-like irritation at anterior trunk without any recent open areas. It is dry. Upperbody skin appears dry as well. The left axillary appears irritated and is covered with cornstarch and baby powder per Depo his . Denies need for other treatments at this time. Assessment/Plan Problem List Items Addressed This Visit Nervous Multiple sclerosis (HCC) - Primary Relevant Orders Comprehensive metabolic panel Hemoglobin A1c Ambulatory External Referral Genitourinary Neuromuscular dysfunction of bladder Relevant Orders PSA Ambulatory External Referral Recurrent kidney stones Relevant Orders Ambulatory External Referral Musculoskeletal Dry skin dermatitis Overview Discussed use of cerave cream on moist skin after showering. Endocrine/Metabolic Hyperlipidemia LDL goal <100 Relevant Orders Lipid panel Other Visit Diagnoses Encounter for hepatitis C screening test for low risk patient Relevant Orders Hepatitis C antibody Per patient and his he uses supply from [facility] [employer], catheter size Mohawk 14, [employer] brand. History of recurrent kidney stones request repeat of CT abdomen and pelvis to reassess. Last imagingthat is viewable on care everywhere was from 2019 at [facility]. Per Nelia they have had imaging morerecent than that at the [facility] however we do not have access to this. Patient is fasting today and was agreeable to update his lab checks. Last PSA was done about 5 yearsago and result was 1.8. Last GFR was from about 3 years ago greater than 60. We will order CT abdomen and pelvis without contrast to the [facility] per patient request.We will also look into getting him a smaller catheter size with a curve to see if this will help with catheter insertion. Follow-up in approximately 2 weeks or so after his CT result. Patient Instructions Help with stool: citrucel daily or twice a day, or metamucil daily. See if we can have a BM twice a week. To help with the catheter insertion. Will look into different catheter size if this is an option. May look into apple cider vinegar. Push fluids if able. CT abd/pelvis mize. D SERVICES DIRECTOR documented in this encounter Miscellaneous Notes Addendum Note - Nahomy Garcia APRN, CNP - 11/03/2021 10:20 AM FIELD SERVICES DIRECTOR Addended by: NAHOMY GARCIA on: 11/04/2021 03:10 PM Modules accepted: Orders D SERVICES DIRECTOR Addendum Note - Nahomy Garcia APRN, CNP - 11/03/2021 10:20 AM FIELD SERVICES DIRECTOR Addended by: NAHOMY GARCIA on: 11/04/2021 04:19 PM Modules accepted: Orders D SERVICES DIRECTOR Addendum Note - Nahomy Garcia APRN, CNP - 11/03/2021 10:20 AM FIELD SERVICES DIRECTOR Addended by: NAHOMY GARCIA on: 11/08/2021 09:37 AM Modules accepted: Orders D SERVICES DIRECTOR documented in this encounter Plan of Treatment Not on filedocumented as of this encounter Results (ABNORMAL) Lipid panel (11/03/2021 11:15 AM FIELD SERVICES DIRECTOR) P athologist Signature Cholesterol 215 (H) 0 - 199 11/04/2021 [facility] mg/dL 1:36 PM FIELD SERVICES DIRECTOR [facility] Comment: Recommended by National Cholesterol Education Program (ATP III) -------- Cholesterol Ranges -------- <200 ?Desirable 200-239 ? Borderline high >=240 ? High Triglycerides 124 0 - 149 mg/dL 11/04/2021 1:36 PM [facility] Comment: -------- TRIG Ranges -------- <150 ?Normal 150-199 ? Borderline high 200-499 ? High >=500 ? Very high HDL 38 (L) 40 - 250 mg/dL 11/04/2021 1:36 PM [facility] Comment: -------- HDL Ranges -------- <40 ?Low 40-59 ?Normal >=60 ? Optimal LDL Calculated 152 (H) 0 - 99 mg/dL 11/04/2021 1:36 PM [facility] Comment: -------- LDL Ranges -------- <100 ? Optimal 100-129 ?Near optimal/above op timal 130-159 ?Borderline high 160-189 ?High >=190 ?Very high Fasting? No 11/03/2021 11:21 AM FIELD SERVICES DIRECTOR [facility] Comment: Water enhancer flavoring Specimen Anatomical Collection Method Collection Time Receive d Time (Source) Location / / Volume Laterality Blood 11/03/2021 11:15 11/04/2021 AM FIELD SERVICES DIRECTOR 12:41 PM FIELD SERVICES DIRECTOR Nahomy Garcia APRN, AIR CONDITIONING SPECIALIST LAB BLOOD ORDERABLES Performing Organization Address City/State/ZIP Code Phon e Number [facility] [address] [place] [address] Hepatitis C antibody (11/03/2021 11:15 AM FIELD SERVICES DIRECTOR) [facility] Method Time Signature Hepatitis C NON-REACTI Non-Reacti 11/04/2021 [place] Antibody VE ve 4:15 PM [facility] Comment: The results from this or any other diagn ostic test should be used and interpreted only in the context of the overall clinical picture. Heterophilic antibodies in serum or plas ma samples may cause interference in immunoassays. ??Exposure to animal antigens, either in the environment or as part of treatment or imaging procedures, may have circulating anti-an imal antibodies present. These antibodies may interfere with the assay reagents to produce unreliable results. ??Results which are inconsistent with clinical observations indicate the need for additional testing. Specimen Anatomical Collection Method Collection Time Receive d Time (Source) Location / / Volume Laterality Blood (Blood, 11/03/2021 11:15 11/04/2021 Venous) AM FIELD SERVICES DIRECTOR 12:49 PM FIELD SERVICES DIRECTOR Nahomy Garcia APRN, CNP LAB BLOOD ORDERABLES Performing Organization Address [facility] Phon e Number [facility] [address] [place] [address] (ABNORMAL) Hemoglobin A1c (11/03/2021 11:15 AM FIELD SERVICES DIRECTOR) Analysis Performed At [facility] Time Signature Hemoglobin A1C 5.8 (H) 4.0 - 5.6 11/04/2021 [place] % A1C 1:16 PM [facility] Comment: Reference Range 4.0-5.6% is for non-preg nant adults >=18 yrs <5.6% ? Non-Diabetic 5.7-6.4% ??Increased risk of Diabetes >=6.5% ?Indicative of Diabetes <7.0% ? ADA goal for glycemic contro l Methodology may not detect all hemoglobi n variants which can affect A1c results. Method certified by National Glycohemoglobin Standardization Program. Specimen Anatomical Collection Method Collection Time Receive d Time (Source) Location / / Volume Laterality Blood 11/03/2021 11:15 11/04/2021 1:15 AM FIELD SERVICES DIRECTOR PM FIELD SERVICES DIRECTOR Nahomy Garcia APRN, CNP LAB BLOOD ORDERABLES Performing Organization Address [facility] Phon e Number [facility] [address] [place] [address] Comprehensive metabolic panel (11/03/2021 11:15 AM FIELD SERVICES DIRECTOR) athologist Signature Total Protein 7.9 6.3 - 8.2 11/04/2021 [place] g/dL 1:36 PM [facility] Albumin, Serum 4.1 3.5 - 5.0 11/04/2021 [place] g/dL 1:36 PM [facility] Total Bilirubin 0.9 0.1 - 1.0 11/04/2021 [place] mg/dL 1:36 PM [facility] AST 22 8 - 48 U/L 11/04/2021 [place] 1:36 PM [facility] Alkaline 90 38 - 128 11/04/2021 [place] Phosphatase U/L 1:36 PM [facility] ALT (SGPT) 21 0 - 49 U/L 11/04/2021 [place] 1:36 PM [facility] Sodium 137 135 - 145 11/04/2021 [place] mEq/L 1:36 PM [facility] Potassium 4.1 3.5 - 5.1 11/04/2021 [place] mEq/L 1:36 PM [facility] Chloride 103 98 - 107 11/04/2021 [place] mEq/L 1:36 PM [facility] CO2 29 22 - 31 11/04/2021 [place] mmol/L 1:36 PM [facility] BUN 11 5 - 25 11/04/2021 [place] mg/dL 1:36 PM [facility] Creatinine 0.8 0.6 - 1.4 11/04/2021 [place] mg/dL 1:36 PM [facility] Glucose 90 70 - 100 11/04/2021 [place] mg/dL 1:36 PM [facility] Calcium, Total,S 8.9 8.4 - 10.2 11/04/2021 [place] mg/dL 1:36 PM [facility] Specimen Anatomical Collection Method Collection Time Receive d Time (Source) Location / / Volume Laterality Blood 11/03/2021 11:15 11/04/2021 AM FIELD SERVICES DIRECTOR 12:41 PM FIELD SERVICES DIRECTOR Nahomy Garcia APRN, AIR CONDITIONING SPECIALIST LAB BLOOD ORDERABLES Performing Organization Address City/State/ZIP Code Phon e Number [facility] [address] [place] [id number] PSA (11/03/2021 11:15 AM FIELD SERVICES DIRECTOR) P athologist Signature Total PSA 1.9 0.0 - 5.1 11/04/2021 [facility] ng/mL 2:12 PM FIELD SERVICES DIRECTOR [facility] Comment: The results from this or any other diagn ostic test should be used and interpreted only in the context of the overall clinical picture. Biotin levels in serum remain elevated f or up to 24 hours after oral or intravenous biotin adminis tration and may interfere with this assay to produce unr eliable results. Heterophilic antibodies in serum or plas ma samples may cause interference in immunoassays. ??Exposure to animal antigens, either in the environment or as part of treatment or imaging procedures, may have circulating anti-an imal antibodies present. These antibodies may interfere with the assay reagents to produce unreliable results. ??Results which are inconsistent with clinical observations indicate the need for additional testing. Specimen Anatomical Collection Method Collection Time Receive d Time (Source) Location / / Volume Laterality Blood 11/03/2021 11:15 11/04/2021 AM FIELD SERVICES DIRECTOR 12:49 PM FIELD SERVICES DIRECTOR Nahomy Garcia APRN, AIR CONDITIONING SPECIALIST LAB BLOOD ORDERABLES Performing Organization Address City/State/ZIP Code Phon e Number [facility] [address] [place] [address] documented in this encounter Visit Diagnoses Diagnosis Multiple sclerosis (HCC) - Primary Multiple sclerosis Hyperlipidemia LDL goal <100 Other and unspecified hyperlipidemia Neuromuscular dysfunction of bladder Encounter for hepatitis C screening test for low risk patient Recurrent kidney stones Dry skin dermatitis Contact dermatitis and other eczema due to other specified agent documented in this encounter Additional Health Concerns Infection Onset Date Last Indicated Resolved Time MSSA 10/04/2018 10/04/2018 06/28/2022 8:27 AM CDT documented as of this encounter Care Teams Global Marketing Specialist Relationship Specialty Start Date End Date Adarsh Carpenter MD PCP - General 05/07/[address] [place] [address] documented as of this encounter
--- OUTSIDE RECORDS SUMMARY | 2022-06-30 08:25 | XMS_ITS | Encounter Summary ---
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 CBC BRANCH OFFICE Routine 11/03/2021 11:15 Result s for this W/DIFF AM NUCLEAR RADIOLOGIST procedure are i n the results section. HEPATITIS C ANTIBODY Routine 11/03/2021 11:15 Encounter for Re sults for this AM NUCLEAR RADIOLOGIST hepatitis C screening proced ure are in test for low risk the result s patient section. PROTIME-INR Routine 11/03/2021 11:15 USP current use Re sults for this AM NUCLEAR RADIOLOGIST of anticoagulant procedure a re in the results section. PSA Routine 11/03/2021 11:15 Neuromuscular Results fo r this AM NUCLEAR RADIOLOGIST dysfunction of bladder proce dure are in the results section. HEMOGLOBIN A1C Routine 11/03/2021 11:15 Multiple sclerosis Res ults for this AM NUCLEAR RADIOLOGIST (HCC) procedure are i n the results section. LIPID PANEL Routine 11/03/2021 11:15 Hyperlipidemia LDL Resul ts for this AM NUCLEAR RADIOLOGIST goal <100 procedure are i n the results section. COMPREHENSIVE Routine 11/03/2021 11:15 Multiple sclerosis Resu lts for this METABOLIC PANEL AM NUCLEAR RADIOLOGIST (HCC) procedure ar e in the results section. documented in this encounter Results Glomerular filtration rate (GFR) (11/03/2021 11:15 AM NUCLEAR RADIOLOGIST) P athologist Signature GFR >60 11/04/2021 [facility] 1:36 PM NUCLEAR RADIOLOGIST CENTER [facility] >60 11/04/2021 [facility] [place] GFR 1:36 PM NUCLEAR RADIOLOGIST [facility] Comment: GFR calculated from serum creatinine v alue Chronic Kidney Disease less than 60 mL/m in/1.73 m2 Kidney Failure less than 15 mL/min/1.73 m2 Note: effective 02/13/07 IDMS-Traceable MDRD Study Equation used. Specimen Anatomical Collection Method Collection Time Receive d Time (Source) Location / / Volume Laterality 11/03/2021 11:15 11/03/2021 AM NUCLEAR RADIOLOGIST 11:15 AM NUCLEAR RADIOLOGIST Carolina Miller APRN LBD TEACHER LAB BLOOD ORDERABLES Performing Organization Address City/State/ZIP Code Phon e Number [facility] [address] [place] [address] (ABNORMAL) CBC Branch Off w/Diff (11/03/2021 11:15 AM NUCLEAR RADIOLOGIST) [facility] gist Method Time Signature WBC 5.1 3.5 - 10.5 11/03/2021 [facility] K/uL 11:46 AM NUCLEAR RADIOLOGIST [place] RBC 5.75 (H) 4.30 - 11/03/2021 [facility] 5.70 M/uL 11:46 AM NUCLEAR RADIOLOGIST [place] Hemoglobin 17.0 13.5 - 11/03/2021 [facility] 17.5 g/dL 11:46 AM NUCLEAR RADIOLOGIST [place] Hematocrit 52.1 (H) 38.0 - 11/03/2021 [facility] 50.0 % 11:46 AM NUCLEAR RADIOLOGIST [place] Platelets 249 150 - 450 11/03/2021 [facility] K/uL 11:46 AM NUCLEAR RADIOLOGIST [place] MCV 90.6 81.2 - 11/03/2021 [facility] 95.1 fL 11:46 AM NUCLEAR RADIOLOGIST [place] MCH 29.6 26.0 - 11/03/2021 [facility] 32.0 pg 11:46 AM NUCLEAR RADIOLOGIST [place] MCHC 32.6 32.0 - 11/03/2021 [facility] 36.0 g/dL 11:46 AM NUCLEAR RADIOLOGIST [place] RDW 15.1 11.8 - 11/03/2021 [facility] 15.6 % 11:46 AM NUCLEAR RADIOLOGIST [place] Lymphocytes % 20.7 % 11/03/2021 [facility] 11:46 AM NUCLEAR RADIOLOGIST [place] Mid-size Cells 9.8 % 11/03/2021 [facility] 11:46 AM NUCLEAR RADIOLOGIST [place] Granulocytes/Mason 69.5 % 11/03/2021 [facility] trophils 11:46 AM NUCLEAR RADIOLOGIST [place] Lymphocytes 1.1 0.9 - 2.9 11/03/2021 [facility] Absolute K/uL 11:46 AM NUCLEAR RADIOLOGIST [place] MIDS Absolute 0.5 0.4 - 1.5 11/03/2021 [facility]AN K/uL 11:46 AM NUCLEAR RADIOLOGIST [place] Granulocytes/Mason 3.5 1.7 - 7.0 11/03/2021 [facility] BILL trophils K/uL 11:46 AM NUCLEAR RADIOLOGIST [place] Absolute Specimen Anatomical Collection Method Collection Time Receive d Time (Source) Location / / Volume Laterality 11/03/2021 11:15 11/03/2021 AM NUCLEAR RADIOLOGIST 11:21 AM NUCLEAR RADIOLOGIST Carolina Miller APRN LBD TEACHER LAB BLOOD ORDERABLES Performing Organization Address City/State/ZIP Code Phon e Number [facility] BILL [facility] [address] [place] [address] (ABNORMAL) Protime-INR (11/03/2021 11:15 AM NUCLEAR RADIOLOGIST) athologist Signature Protime 32.8 (H) 10.6 - 12.4 11/04/2021 [facility] 1:08 PM [facility] Comment: Note: Normal range change effective 10/19. INR 2.9 11/04/2021 1:08 PM [facility] Comment: Suggested INR Therapeutic Ranges* Intensity ?Standard ?Higher ? 2.0-3.0 ? 2.5-3.5 *Target INR should be individualized. Occasionally, INR range 3.0-4.5 may be appropriate. Higher intensity INR: Mechanical heart valve, etc. Specimen Anatomical Collection Method Collection Time Receive d Time (Source) Location / / Volume Laterality Blood (Blood, 11/03/2021 11:15 11/04/2021 Venous) AM NUCLEAR RADIOLOGIST 12:49 PM NUCLEAR RADIOLOGIST Elli Campbell PA-C LAB BLOOD ORDERABLES Performing Organization Address [facility]/ZIP [facility] Phon e Number [facility] [address] [place] [phone] PSA (11/03/2021 11:15 AM NUCLEAR RADIOLOGIST) athologist Signature Total PSA 1.9 0.0 - 5.1 11/04/2021 [facility] ng/mL 2:12 PM NUCLEAR RADIOLOGIST [facility]ENTER [facility] Comment: The results from this [...] Volume Laterality Blood 11/03/2021 11:15 11/04/2021 AM NUCLEAR RADIOLOGIST 12:49 PM NUCLEAR RADIOLOGIST Carolina Miller APRN, BONI LAB BLOOD ORDERABLES Performing Organization Address [facility] Phon e Number [facility] [address] [place] [phone] Comprehensive metabolic panel (11/03/2021 11:15 AM NUCLEAR RADIOLOGIST) athologist Signature Total Protein 7.9 6.3 - 8.2 11/04/2021 [facility] g/dL 1:36 PM [facility] Albumin, Serum 4.1 3.5 - 5.0 11/04/2021 [facility] g/dL 1:36 PM [facility] Total Bilirubin 0.9 0.1 - 1.0 11/04/2021 [facility] mg/dL 1:36 PM [facility] AST 22 8 - 48 U/L 11/04/2021 [facility] 1:36 PM [facility] Alkaline 90 38 - 128 11/04/2021 [facility] Phosphatase U/L 1:36 PM [facility] ALT (SGPT) 21 0 - 49 U/L 11/04/2021 [facility] 1:36 PM [facility] Sodium 137 135 - 145 11/04/2021 [facility] mEq/L 1:36 PM [facility] Potassium 4.1 3.5 - 5.1 11/04/2021 [facility] mEq/L 1:36 PM [facility] Chloride 103 98 - 107 11/04/2021 [facility] mEq/L 1:36 PM [facility] CO2 29 22 - 31 11/04/2021 [facility] mmol/L 1:36 PM [facility] BUN 11 5 - 25 11/04/2021 [facility] mg/dL 1:36 PM [facility] Creatinine 0.8 0.6 - 1.4 11/04/2021 [facility] mg/dL 1:36 PM [facility] Glucose 90 70 - 100 11/04/2021 [facility] mg/dL 1:36 PM [facility] Calcium, Total,S 8.9 8.4 - 10.2 11/04/2021 [facility] mg/dL 1:36 PM [facility] Specimen Anatomical Collection Method Collection Time Receive d Time (Source) Location / / Volume Laterality Blood 11/03/2021 11:15 11/04/2021 AM NUCLEAR RADIOLOGIST 12:41 PM NUCLEAR RADIOLOGIST Carolina Miller APRN, CNP LAB BLOOD ORDERABLES Performing Organization Address City/State/ZIP Code Phon e Number [facility] [address] [place] [address] (ABNORMAL) Hemoglobin A1c (11/03/2021 11:15 AM [facility]) Analysis Performed At Patho logist Time Signature Hemoglobin A1C 5.8 (H) 4.0 - 5.6 11/04/2021 [facility] % A1C 1:16 PM [facility] Comment: Reference Range 4.0-5.6% is for [...] Laterality Blood 11/03/2021 11:15 11/04/2021 1:15 AM NUCLEAR RADIOLOGIST PM NUCLEAR RADIOLOGIST Carolina Miller APRN, CNP LAB BLOOD ORDERABLES Performing Organization Address [facility] e Number [facility] [address] [place] [phone] Hepatitis C antibody (11/03/2021 11:15 AM NUCLEAR RADIOLOGIST) Patholo gist Method Time Signature Hepatitis C NON-REACTI Non-Reacti 11/04/2021 [facility] Antibody VE ve 4:15 PM [facility] Comment: The results from [...] Blood (Blood, 11/03/2021 11:15 11/04/2021 Venous) AM NUCLEAR RADIOLOGIST 12:49 PM NUCLEAR RADIOLOGIST Carolina Miller APRN, CNP LAB BLOOD ORDERABLES Performing Organization Address [facility] e Number [facility] [address] [place] [address] (ABNORMAL) Lipid panel (11/03/2021 11:15 AM NUCLEAR RADIOLOGIST) P athologist Signature Cholesterol 215 (H) 0 - 199 11/04/2021 [facility] mg/dL 1:36 PM NUCLEAR RADIOLOGIST [facility]ENTER [facility] Comment: Recommended by National Cholesterol Education Program (ATP III) -------- Cholesterol Ranges -------- <200 ?Desirable 200-239 ? Borderline high >=240 ? High Triglycerides 124 0 - 149 mg/dL 11/04/2021 1:36 PM [facility] Comment: -------- TRIG Ranges -------- <150 ?Normal 150-199 ? Borderline high 200-499 ? High >=500 ? Very high HDL 38 (L) 40 - 250 mg/dL 11/04/2021 1:36 PM [facility] Comment: -------- HDL Ranges -------- <40 ?Low 40-59 ?Normal >=60 ? Optimal LDL Calculated 152 (H) 0 - 99 mg/dL 11/04/2021 1:36 PM [facility] Comment: -------- LDL Ranges -------- <100 ? Optimal 100-129 ?Near optimal/above op timal 130-159 ?Borderline high 160-189 ?High >=190 ?Very high Fasting? No 11/03/2021 11:21 AM [facility] Comment: Water enhancer flavoring Specimen Anatomical Collection Method Collection Time Receive d Time (Source) Location / / Volume Laterality Blood 11/03/2021 11:15 11/04/2021 AM NUCLEAR RADIOLOGIST 12:41 PM NUCLEAR RADIOLOGIST Carolina Miller APRN LBD TEACHER LAB BLOOD ORDERABLES Performing Organization Address City/State/ZIP Code Phon e Number [facility] [address] [place] [address] documented in this encounter Visit Diagnoses Diagnosis Hyperlipidemia LDL goal <100 Other and unspecified hyperlipidemia Encounter for hepatitis C screening test for low risk patient Multiple sclerosis (HCC) Multiple sclerosis Neuromuscular dysfunction of bladder USP current use of anticoagulant documented in this encounter Additional Health Concerns Infection Onset Date Last Indicated Resolved Time MSSA 10/04/2018 10/04/2018 06/28/2022 8:27 AM CDT documented as of this encounter Care Teams Photographic Processor Relationship Specialty Start Date End Date Molenaar, D. Hang, MD PCP - General 05/07/[address] [place] [address] documented as of this encounter
--- OUTSIDE RECORDS SUMMARY | 2022-06-30 08:25 | XMS_ITS | Encounter Summary ---
:1960 Author Organization [facility] Address [address] [place] [address] Care Team Providers Name Role Phone Adarsh Carpenter MD Primary Care Provider Encounter Details Date Type Department Care Team Description 11/04/2021 Anticoagulation - SE Dolores Cleary, halfway current use of anticoagulant (Primary Dx); Warfarin Visit Anticoag/Internal RN Other pulmonary embolism without acute c or pulmonale, unspecified chronicity (HCC) Medicine - Third [address] [place] [address] Social History Tobacco Use [...] encounter Progress Notes Dolores Cleary RN - 11/04/2021 1:32 PM CST Anticoagulation Clinic - RN INR RESULTS: INR (no units) Date Value 11/03/2021 2.9 DOSE PLAN: 2 mg Tue, Sat; 4 mg all other days DOSE CHANGE: No change NEXT INR: 12/01/2021 [facility] faxed INR results, instructions, and orders to [facility]. NEERING DRAWINGS CHECKER documented in this encounter Plan of Treatment Not on filedocumented as of this encounter Visit Diagnoses Diagnosis halfway current use of anticoagulant - Primary Other pulmonary embolism without acute c or pulmonale, unspecified chronicity (HCC) documented in this encounter Additional Health Concerns Infection Onset Date Last Indicated Resolved Time MSSA 10/04/2018 10/04/2018 06/28/2022 8:27 AM CDT documented as of this encounter Care Teams Route Sales Driver Relationship Specialty Start Date End Date Adarsh Carpenter MD PCP - General 05/07/[address] [place] [address] documented as of this encounter
--- OUTSIDE RECORDS SUMMARY | 2022-06-30 08:25 | XMS_ITS | Encounter Summary ---
:1960 Author Organization [facility] Address [address] [place] [address] Care Team Providers Name Role Phone Adarsh Carpenter MD Primary Care Provider Encounter Details Date Type Department Care Team Description 10/03/2021 Anticoagulation - SE Dolores Cleary, [facility] current Warfarin Visit Anticoag/Internal RN use of anticoagulant Medicine - Third [address] (Primary Dx ) [address] [place] [address] [phone] Social History Tobacco Use Types Packs/Day Years [...] or relatives? How often do you attend sikh or 1 to 4 times per year 04/01 cheondoism services? Do you belong to any clubs or No 04/24/2022 organizations such as sikh groups, unions, fraternal or athletic groups, or [...] encounter Progress Notes Dolores Cleary RN - 10/03/2021 9:10 AM CST Anticoagulation Clinic - RN INR RESULTS: INR (no units) Date Value 09/29/2021 2.60 (A) DOSE PLAN: 2 mg Tue, Sondra, Sat; 4 mg all other days DOSE CHANGE: No change NEXT INR: 10/27/2021 [facility] faxed INR results, instructions, and orders to [facility]. INE CLOTHING WORKER documented in this encounter Plan of Treatment Not on filedocumented as of this encounter Procedures Procedure Name Priority Date/Time Associated Diagnosis Comme nts PROTIME-INR Routine 09/29/2021 Results for thi s procedure are in the resu lts section. documented in this encounter Results (ABNORMAL) Protime-INR (09/29/2021) P athologist Signature INR 2.60 (A) 0.9 - 1.1 HOME HEALTH POINT [...] documented as of this encounter Care Teams Polystyrene Bead Molder Relationship Specialty Start Date End Date Adarsh Carpenter MD PCP - General 05/07/[address] [place] [address] documented as of this encounter
--- OUTSIDE RECORDS SUMMARY | 2022-06-30 08:25 | XMS_ITS | Encounter Summary ---
:1960 Author Organization Address [address] [place] [address] Care Team Providers Name Role Phone Adarsh Carpenter MD Primary Care Provider Encounter Details Date Type Department Care Team Description 09/01/2021 Anticoagulation - SE [place], exterminator termite current use of anticoagulant (Primary Dx); Warfarin Visit Anticoag/Gilberto Castillo RN Other pulmonary embolism without acute c or pulmonale, unspecified chronicity (HCC) Medicine - Third [address] [place] [address] Social History Tobacco Use [...] encounter Progress Notes Anna Betts RN - 09/01/2021 12:52 PM CST Anticoagulation Clinic - RN Protocol Screening INR RESULTS: INR (no units) Date Value 09/01/2021 3.40 (A) DOSE PLAN: 2mg on 09/02; then resume 2mg every Sun, , Sun; 4mg all other days DOSE CHANGE: One dose reduction NEXT INR: 09/15/21 VERIFY PREVIOUS DOSE PLAN Verified MISSED/EXTRA DOSES No MEDICATION CHANGES No DIET OR ALCOHOL CHANGES Yes, Eating less salad RECENT ILLNESS/ HOSPITALIZATIONS No ABNORMAL BLEEDING OR BRUISING No; The patient denied signs/symptoms of bleeding. ACC advised patientto utilize safety precautions and seek medical attention as warranted for bleeding. FALLS OR INJURIES No NEW PAIN SYMPTOMS No NEW SHORTNESS OF BREATH No NEW NEUROLOGICAL SYMPTOMS No INR results reviewed with the patient. Patient verbalized understanding of anticoagulation dose planand date of next INR. AVS mailed to patient. AVS sent through [employer]. WAY TECHNICIAN documented in this encounter Plan of Treatment Not on filedocumented as of this encounter Procedures Procedure Name Priority Date/Time Associated Diagnosis Comme nts PROTIME-INR Routine 09/01/2021 Results for thi s procedure are in the resu lts section. 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
--- OUTSIDE RECORDS SUMMARY | 2022-06-30 08:25 | XMS_ITS | Encounter Summary ---
:1960 Author Organization [facility] Address [address] [place] [address] Care Team Providers Name Role Phone Adarsh Carpenter MD Primary Care Provider Reason for Visit Reason Onset Date Comments Med Refill Med Refill 11/08/2021 Encounter Details Date Type Department Care Team Description 10/28/2021 Refill [place] Adarsh Carpenter, Other pulmonary embolism [address] MD without acute cor [place], [place] [address] pulmonale, unspecified [phone] [place], [place] chronicity ([facility] [phone] Social History Tobacco Use Types Packs/Day Years [...] this encounter Miscellaneous Notes Telephone Encounter - Madison Ewing MA - 10/28/2021 2:13 PM CST Last visit in provider department: 07/23/2020 Last visit requested medication was discussed: 01/19/2020 Upcoming appointment with provider: none Last Anticoagulation visit: 10/27/2021 Last Rx: 11/11/2020 # [id number], 3 refill Requested Prescriptions Pending Prescriptions Disp Refills ??? warfarin (COUMADIN) 2 MG tablet [Pharmacy Med Name: WARFARIN SODIUM 2MG TABS] 185 tablet 3 Sig: TAKE TWO TABLETS (4 MG ) BY MOUTH EVERY DAY AND DIRECTED BY ANTICOAG CLINIC Component Latest Ref Rng & Units 10/27/2021 INR 0.9 - 1.1 2.40 (A) RNATIONAL PROJECT MANAGER documented in this encounter Plan of Treatment Not on filedocumented as of this encounter Visit Diagnoses Diagnosis Other pulmonary embolism without acute c or pulmonale, unspecified chronicity (HCC) documented in this encounter Additional Health Concerns Infection Onset Date Last Indicated Resolved Time MSSA 10/04/2018 10/04/2018 06/28/2022 8:27 AM CDT documented as of this encounter Care Teams Life Management Teacher Relationship Specialty Start Date End Date Adarsh Carpenter MD PCP - General 05/07/[address] [place] [address] documented as of this encounter
--- OUTSIDE RECORDS SUMMARY | 2022-06-30 08:25 | XMS_ITS | Encounter Summary ---
:1960 Author Organization [facility] Address [address] [place] [address] Care Team Providers Name Role Phone Adarsh Carpenter MD Primary Care Provider Encounter Details Date Type Department Care Team Description 10/27/2021 Anticoagulation - [place], retirement current Warfarin Visit Anticoag/Internal ROBERT Garsia use of anticoagulant Medicine - [address] (Primary Dx ) [place] [address] [address] [phone] Social History Tobacco Use Types Packs/Day Years [...] 1 to 4 times per year 04/01 confucianist services? Do you belong to any clubs [...] documented as of this encounter Progress Notes Ady Levine RN - 10/27/2021 3:08 PM CST Anticoagulation Clinic INR RESULTS: INR (no units) Date Value 10/27/2021 2.40 (A) DOSE PLAN: 2 mg Tues, Sat; 4 mg all other days DOSE CHANGE: Increased by 9.1% (2 mg/week) NEXT INR: 11/10/21 INR results reviewed with the patient's , Nelia. Patient verbalized understanding of anticoagulation dose plan and date of next INR. [facility] also left a message on the home health nurse's voicemail. [facility] faxed INR results, instructions, and orders to [facility]. This dosing plan and INR recheck date was reviewed and approved by Elli Campbell PA-C. ICAL NURSE OCCUPATIONAL MEDICINE documented in this encounter Plan of Treatment Not on filedocumented as of this encounter Procedures Procedure Name Priority Date/Time Associated Diagnosis Comme nts PROTIME-INR Routine 10/27/2021 Results for thi s procedure are in the resu lts section. documented in this encounter Results (ABNORMAL) Protime-INR (11/03/2021 11:15 AM CLINICAL NURSE OCCUPATIONAL MEDICINE) P athologist Signature Protime 32.8 (H) 10.6 - 12.4 11/04/2021 [facility] 1:08 PM [facility] Comment: Note: Normal range change effective 10/19. INR 2.9 11/04/2021 1:08 PM CLINICAL NURSE OCCUPATIONAL MEDICINE [facility] Comment: Suggested INR Therapeutic Ranges* Intensity ?Standard ?Higher ? 2.0-3.0 ? 2.5-3.5 *Target INR should be individualized. Occasionally, INR range 3.0-4.5 may be appropriate. Higher intensity INR: Mechanical heart valve, etc. Specimen Anatomical Collection Method Collection Time Receive d Time (Source) Location / / Volume Laterality Blood (Blood, 11/03/2021 11:15 11/04/2021 Venous) AM CLINICAL NURSE OCCUPATIONAL MEDICINE 12:49 PM CLINICAL NURSE OCCUPATIONAL MEDICINE Elli Campbell PA-C LAB BLOOD ORDERABLES Performing Organization Address City/State/ZIP Code Phon e Number [facility] [address] [place] [phone] (ABNORMAL) Protime-INR (10/27/2021) P athologist Signature INR 2.40 (A) 0.9 [...] documented in this encounter Visit Diagnoses Diagnosis retirement current use of anticoagulant - Primary documented in this encounter Additional Health Concerns Infection Onset Date Last Indicated Resolved Time [facility] 10/04/2018 10/04/2018 06/28/2022 8:27 AM CDT documented as of this encounter Care Teams Aircraft Assembler Relationship Specialty Start Date End Date Adarsh Carpenter MD PCP - General 05/07/[address] [place] [address] documented as of this encounter
--- OUTSIDE RECORDS SUMMARY | 2022-06-30 08:25 | XMS_ITS | Encounter Summary ---
:1960 Author Organization [facility] Address [address] [place] [address] Care Team Providers Name Role Phone Adarsh Carpenter MD Primary Care Provider Reason for Visit Reason Onset Date Comments Results 11/07/2021 Encounter Details Date Type Department Care Team Description 11/07/2021 Telephone [place] Adarsh Carpenter MD Results [address] [place], [place] [address] [place], [place] [phone] (Wo rk) Social History Tobacco Use Types [...] or relatives? How often do you attend scientology or 1 to 4 times per year 04/01 taoism services? Do you belong to any clubs or No 04/24/2022 organizations such as scientology groups, unions, fraternal or athletic groups, or [...] Telephone Encounter - Vidhya Bain LPN - 11/16/2021 10:59 AM CST Verified with [facility] to fill the 12 georgian. STONE CLEANER Addendum Note - Nahomy Garcia APRN, CNP - 11/08/2021 2:04 PM MILLSTONE CLEANER Addended by: NAHOMY GARCIA on: 11/08/2021 02:04 PM Modules accepted: Orders STONE CLEANER Telephone Encounter - Sofia Denson RN - 11/08/2021 1:28 PM CST Patient's informed of cost for Catheters, they will get them from [facility]. She would like an Rx for a statin sent to [facility]. Patient's with monitor his intake for now and let us knowif they would like to see a service delivery manager in the future. STONE CLEANER Telephone Encounter - Sofia Denson RN - 11/08/2021 11:55 AM CST Cost for [facility] is $120.00 for 4 boxes. Geoffrey'ssilverlakedrugwillcallusback with a white. STONE CLEANER Telephone Encounter - Nahomy Garcia APRN, BOIN - 11/08/2021 10:27 AM CST Most labs normal/neg. Cholesterol high recommend statin therapy to decrease risk, maintenance med for cholesterol. A1c borderline high. Recommend monitoring intake, less carbs/sugar if possible. Can refer to service delivery manager if they like. STONE CLEANER Telephone Encounter - Veronica Glez - 11/08/2021 10:21 AM CST Order also faxed to [place]. STONE CLEANER Telephone Encounter - Sofia Denson RN - 11/08/2021 10:19 AM CST RN spoke to [facility], will send Rx to [facility] also to get pricing on catheters from [facility]. STONE CLEANER Telephone Encounter - Sofia Denson RN - 11/08/2021 10:18 AM CST Please review patient labs and advise. STONE CLEANER Telephone Encounter - Veronica Glez - 11/08/2021 9:55 AM CST Order faxed to [facility] Maria G. STONE CLEANER Telephone Encounter - Sofia Denson RN - 11/08/2021 9:41 AM CST Please fax to [facility] maria g. STONE CLEANER Telephone Encounter - Sofia Denson RN - 11/08/2021 9:39 AM CST Rx at desk, please sign and give to nurses. STONE CLEANER Telephone Encounter - Sofia Denson RN - 11/08/2021 8:34 AM CST Rx pended for 12fr Catheter. STONE CLEANER Telephone Encounter - Vidhya Bain LPN - 11/07/2021 4:56 PM CST Nelia called and stated that we need a 10 or 12 which would be 2 or 1 size smaller. Nelia thinks that a 12 would work well. Nurse: call [facility] and get the reference number for the order for 12fr or 10fr Hak: please review his lab results and informed nurse of any changes moving forward as Nelia is questioning results. STONE CLEANER Telephone Encounter - Veronica Glez - 11/07/2021 4:46 PM CST Pt's Nelia returned hany to clinic. STONE CLEANER Telephone Encounter - Jaclyn Schmitt - 11/07/2021 1:06 PM CST Pt called and would like a return call from a nurse to discuss Dhruv's results from the blood test and the catheters talked about last week STONE CLEANER documented in this encounter Plan of Treatment Not on filedocumented as of this encounter Visit Diagnoses Diagnosis Mixed hyperlipidemia - Primary Neurogenic bladder Neurogenic bladder, NOS documented in this encounter Additional Health Concerns Infection Onset Date Last Indicated Resolved Time MSSA 10/04/2018 10/04/2018 06/28/2022 8:27 AM CDT documented as of this encounter Care Teams Hand Glass Cutter Relationship Specialty Start Date End Date Adarsh Carpenter MD PCP - General 05/07/[address] [place] [address] documented as of this encounter
--- OUTSIDE RECORDS SUMMARY | 2022-06-30 08:26 | XMS_ITS | Encounter Summary ---
:1960 Author Organization [facility] Address [address] [place] [address] Care Team Providers Name Role Phone Adarsh Carpenter MD Primary Care Provider Encounter Details Date Type Department Care Team Description 12/07/2020 Anticoagulation - SE Josh, Other pulm onary Warfarin Visit Anticoag/Internal ROBERT Cardenas embolism without Medicine - Third [address] pulmonale, [address] [place], [place] [address] chronicity (HCC) [address] Social History Tobacco Use Types Packs/Day [...] or relatives? How often do you attend rastafarian or 1 to 4 times per year 04/01 mosque services? Do you belong to any clubs or No 04/24/2022 organizations such as rastafarian groups, unions, fraternal or athletic groups, or [...] documented as of this encounter Progress Notes Theresa Moreno RN - 12/07/2020 12:08 PM CST Anticoagulation Clinic - RN INR RESULTS: INR (no units) Date Value 12/07/2020 2.60 (A) DOSE PLAN: 4 mg every day DOSE CHANGE: No change NEXT INR: 3 weeks - 12/28/2020 Spoke with nurse Yates she stated there were no changes to health or medications for Pt. Advisedto call [facility] if there are any changes to health or medications. [facility] faxed INR results, instructions, and orders to [facility]. ARCHITECT documented in this encounter Plan of Treatment Not on filedocumented as of this encounter Procedures Procedure Name Priority Date/Time Associated Diagnosis Comme nts PROTIME-INR Routine 12/07/2020 Results for thi s procedure are in the resu lts section. documented in this encounter Results (ABNORMAL) Protime-INR (12/07/2020) P athologist Signature INR 2.60 (A) 0.9 - 1.1 [facility] POINT OF CARE TESTING Protime [facility] POINT OF CARE TESTING Specimen (Source) Anatomical Location Collection Method / Collectio n Time Received Time / Laterality Volume Blood (Blood, 12/07/2020 Venous) Resulting Agency Comment INR POC called in by Nurse Trudy martins [facility] Historical Provider LAB BLOOD ORDERABLES Performing Organization [...] documented as of this encounter Care Teams Animal Physiology Teacher Relationship Specialty Start Date End Date Adarsh Carpenter MD PCP - General 05/07/[address] [place] [address] documented as of this encounter
--- OUTSIDE RECORDS SUMMARY | 2022-06-30 08:26 | XMS_ITS | Encounter Summary ---
:[address] [facility] Address [address] [place] [address] Care Team Providers Name Role Phone Adarsh Carpenter MD Primary Care Provider Encounter Details Date Type Department Care Team Description 01/25/2021 Anticoagulation - SE Terri Spivey Other pul monary Warfarin Visit Anticoag/Internal J, RN embolism without Medicine - Third [address] pulmonale, [address] [place], [place] [address] chronicity (HCC) [address] Social History Tobacco Use [...] 1 to 4 times per year 04/01 druze services? Do you belong to any clubs [...] encounter Progress Notes Terri Spivey RN - 01/25/2021 12:52 PM CDT Anticoagulation Clinic - RN INR RESULTS: INR (no units) Date Value 01/25/2021 2.90 (A) DOSE PLAN: 4 mg every day DOSE CHANGE: No change NEXT INR: 02/22/21 [facility] faxed INR results, instructions, and orders to [facility]. documented in this encounter Plan of Treatment Not on filedocumented as of this encounter Procedures Procedure Name Priority Date/Time Associated Diagnosis Comme nts PROTIME-INR Routine 01/25/2021 Results for thi s procedure are in the resu lts section. documented in this encounter Results (ABNORMAL) Protime-INR (01/25/2021) P athologist Signature INR 2.90 (A) 0.9 - 1.1 [facility] ELIAN Protime [facility] Specimen (Source) Anatomical Location Collection Method / Collectio n Time Received Time / Laterality Volume Blood (Blood, 01/25/2021 Venous) Resulting Agency Comment [facility] - POC Historical Provider LAB BLOOD ORDERABLES Performing Organization Address City/State/ZIP Code Phon e Number [facility] [address] [place] [address] documented in this encounter Visit Diagnoses Diagnosis Other pulmonary embolism without acute c or pulmonale, unspecified chronicity (HCC) documented in this encounter Additional Health Concerns Infection Onset Date Last Indicated Resolved Time MSSA 10/04/2018 10/04/2018 06/28/2022 8:27 AM CDT documented as of this encounter Care Teams Rotating Equipment Specialist Relationship Specialty Start Date End Date Adarsh Carpenter MD PCP - General 05/07/[address] [place] [address] documented as of this encounter
--- OUTSIDE RECORDS SUMMARY | 2022-06-30 08:26 | XMS_ITS | Encounter Summary ---
:1960 Author Organization [facility] Address [address] [place] [address] Care Team Providers Name Role Phone Adarsh Carpenter MD Primary Care Provider Encounter Details Date Type Department Care Team Description 02/22/2021 Anticoagulation - Warfarin SE Anticoag/Internal Terri Spivey, Visit Medicine - Third RN Floor [address] [place] [address] [place], [place] [phone] Social History Tobacco Use Types Packs/Day Years [...] or relatives? How often do you attend caodaism or 1 to 4 times per year 04/01 lutheran services? Do you belong to any clubs or No 04/24/2022 organizations such as caodaism groups, unions, fraternal or athletic groups, or [...] encounter Progress Notes Terri Spivey RN - 02/22/2021 10:29 AM CDT Anticoagulation Clinic - RN Protocol Screening INR RESULTS: INR (no units) Date Value 02/22/2021 3.60 (A) DOSE PLAN: 2 mg every Tue; 4 mg all other days DOSE CHANGE: Decreased by 7.1% (2 mg/week) NEXT INR: 03/08/21 VERIFY PREVIOUS DOSE PLAN Verified with the nurse from [facility] MISSED/EXTRA DOSES No MEDICATION CHANGES No DIET OR ALCOHOL CHANGES No RECENT ILLNESS/ HOSPITALIZATIONS No ABNORMAL BLEEDING OR BRUISING No, The nurse denies that the patient having any signs or symptoms of abnormal bleeding or bruising. Advised nurse to inform the patient to seek medical attention as warranted for abnormal bleeding and bruising. FALLS OR INJURIES No NEW PAIN SYMPTOMS No NEW SHORTNESS OF BREATH No NEW NEUROLOGICAL SYMPTOMS No INR results reviewed with the patient nurse. She verbalized understanding of anticoagulation dose plan and date of next INR. AVS faxed to [facility]. documented in this encounter Plan of Treatment Not on filedocumented as of this encounter Procedures Procedure Name Priority Date/Time Associated Diagnosis Comme nts PROTIME-INR Routine 02/22/2021 Results for thi s procedure are in the resu lts section. documented in this encounter Results (ABNORMAL) Protime-INR (02/22/2021) P athologist Signature INR 3.60 (A) 0.9 - 1.1 [facility] Epigami Comment: [facility] - POC Protime [facility] Epigami Specimen (Source) Anatomical Location Collection Method / Collectio n Time Received Time / Laterality Volume Blood (Blood, 02/22/2021 Venous) Historical Provider LAB BLOOD ORDERABLES Performing Organization Address City/State/ZIP Code Phon e Number [facility] [address] [place] [address] documented in this encounter Visit Diagnoses Not on filedocumented in this encounter Additional Health Concerns Infection Onset Date Last Indicated Resolved Time MSSA 10/04/2018 10/04/2018 06/28/2022 8:27 AM CDT documented as of this encounter Care Teams Solar Photovoltaic Systems Engineer Relationship Specialty Start Date End Date Adarsh Carpenter MD PCP - General 05/07/[address] [place] [address] documented as of this encounter
--- OUTSIDE RECORDS SUMMARY | 2022-06-30 08:26 | XMS_ITS | Encounter Summary ---
:1960 Author Organization [facility] Address [address] [place] [address] Care Team Providers Name Role Phone Adarsh Carpenter MD Primary Care Provider Encounter Details Date Type Department Care Team Description 08/10/2020 Anticoagulation - SE Josh, Other pulm onary Warfarin Visit Anticoag/Internal ROBERT Cardenas embolism without Medicine - Third [address] pul[place], [address] [place], [place] [address] chronicity (HCC) [address] Social History Tobacco Use [...] or relatives? How often do you attend jew or 1 to 4 times per year 04/01 jain services? Do you belong to any clubs or No 04/24/2022 organizations such as jew groups, unions, fraternal or athletic groups, or [...] encounter Progress Notes Theresa Moreno RN - 08/10/2020 12:35 PM CST Anticoagulation Clinic - RN INR RESULTS: INR (no units) Date Value 08/10/2020 2.70 (A) DOSE PLAN: 2.5 mg Tue, Sondra, Sat; 5 mg all other days DOSE CHANGE: No change NEXT INR: in 2 weeks on 08/24/2020 Spoke with nurse Caicedo she reports no changes to health or medications no upcoming procedures that nurse is aware of. No bleeding and no bruising. [facility] faxed INR results, instructions, and orders to [facility]. EL DRUM CUTTER documented in this encounter Plan of Treatment Not on filedocumented as of this encounter Procedures Procedure Name Priority Date/Time Associated Diagnosis Comme nts PROTIME-INR Routine 08/10/2020 Results for thi s procedure are in the resu lts section. documented in this encounter Results (ABNORMAL) Protime-INR (08/10/2020) P athologist Signature INR 2.70 (A) 0.9 - 1.1 [facility] POINT OF CARE TESTING Protime [facility] POINT OF CARE TESTING Specimen (Source) Anatomical Location Collection Method / Collectio n Time Received Time / Laterality Volume Blood (Blood, 08/10/2020 Venous) Resulting Agency Comment INR POC Results called in by Nurse Jose Luis street [facility] Historical Provider LAB BLOOD ORDERABLES Performing Organization [...] documented as of this encounter Care Teams Luggage Maker Relationship Specialty Start Date End Date Adarsh Carpenter MD PCP - General 05/07/[address] [place] [address] documented as of this encounter
--- OUTSIDE RECORDS SUMMARY | 2022-06-30 08:26 | XMS_ITS | Encounter Summary ---
:1960 Author Organization [facility] Address [address] [place] [address] Care Team Providers Name Role Phone Adarsh Carpenter MD Primary Care Provider Reason for Referral Consultation (Routine) - Closed Specialty Diagnoses / Procedures Referred By Contact Refer red To Contact Diagnoses Multiple sclerosis (HCC) Adarsh Carpenter MD [facility] [address] [phone] Referral ID Status Reason Start Date Expiration Date Visits Requ ested Visits Authorized [id number] Closed 04/15/2021 04/15/2022 1 1 Reason for Visit Reason Onset Date Comments OT 04/14/2021 Encounter Details Date Type Department Care Team Description 04/14/2021 [place]phone [place] [address] [facility] [address] [place], [place] [address] [place], [place] [phone] (Wo rk) Social History Tobacco Use Types [...] or relatives? How often do you attend gnosticist or 1 to 4 times per year 04/01 islam services? Do you belong to any clubs or No 04/24/2022 organizations such as gnosticist groups, unions, fraAnelletti [employer] or athletic groups, or school groups? How [...] this encounter Miscellaneous Notes Telephone Encounter - Patria Freeman - 04/15/2021 2:03 PM CDT Referral faxed. Telephone Encounter - Vidhya Bain LPN - 04/15/2021 1:46 PM CDT Please fax to the below number Telephone Encounter - Adarsh Carpenter MD - 04/15/2021 11:23 AM CDT I have placed a referral for Kathi to get further OT from [facility] and home health. Pleasefax to the number given at length can or his know that this is been done. Telephone Encounter - Vidhya Bain LPN - 04/15/2021 9:52 AM CDT Please print an order as I don't have a number for the Home and Hosp[facility], we just have their fax. Telephone Encounter - Adarsh Carpenter MD - 04/15/2021 9:44 AM CDT Do they need a written order ordered just a verbal order to continue to provide services for Dhruv? Ifyou have already given them verbal orders this is good. Telephone Encounter - Vidhya Bain LPN - 04/15/2021 8:25 AM CDT [facility] Occupational therapy. Telephone Encounter - Adarsh Carpenter MD - 04/14/2021 6:54 PM CDT I am assuming that OT is standing for occupational therapy. If this is the case find out which agency had been coming to his home for OT therapy call this agency and just see what we need to do to authorize a number of visits for them to come in to work with Dhruv again. Telephone Encounter - Sofia Denson RN - 04/14/2021 1:15 PM CDT Please review request. Telephone Encounter - Lilia Kerr - 04/14/2021 11:48 AM CDT Pt would like another OT visit. Please fax to [phone] documented in this encounter Plan of Treatment Scheduled Referrals Name Type Priority Associated Order Schedule Diagnoses Ambulatory External Outpatient Referral Routine Multiple scler osis Ordered: Referral (HCC) 04/15/2021 documented as of this encounter Visit Diagnoses Diagnosis Multiple sclerosis (HCC) - Primary Multiple sclerosis documented in this encounter Additional Health Concerns Infection Onset Date Last Indicated Resolved Time [facility] 10/04/2018 10/04/2018 06/28/2022 8:27 AM CDT documented as of this encounter Care Teams Blood Bank Order Control Clerk Relationship Specialty Start Date End Date Adarsh Carpenter MD PCP - General 05/07/[address] [place] [address] documented as of this encounter
--- OUTSIDE RECORDS SUMMARY | 2022-06-30 08:26 | XMS_ITS | Encounter Summary ---
:1960 Author Organization [facility] Address [address] [place] [address] Care Team Providers Name Role Phone Adarsh Carpenter MD Primary Care Provider Encounter Details Date Type Department Care Team Description 08/24/2020 Anticoagulation - SE Ena Erwin Other pu lmonary Warfarin Visit Anticoag/Internal L., RN embolism without Medicine - Third [address] pulmonale, [address] [place], [place] [address] chronicity (HCC) [address] Social History Tobacco Use [...] 1 to 4 times per year 04/01 rastafarian services? Do you belong to any clubs [...] documented as of this encounter Progress Notes Ena Erwin RN - 08/24/2020 3:36 PM CST Anticoagulation Clinic - RN INR RESULTS: INR (no units) Date Value 08/24/2020 3.30 (A) DOSE PLAN: 5 mg every Mon, Wed, Fri; 2.5 mg all other days DOSE CHANGE: Increased by 9.1% (2.5 mg/week) NEXT INR: 2 weeks; 09/07/20 [facility] faxed INR results, instructions, and orders to [facility]. UTIVE MANAGER documented in this encounter Plan of Treatment Not on filedocumented as of this encounter Procedures Procedure Name Priority Date/Time Associated Diagnosis Comme nts PROTIME-INR Routine 08/24/2020 Results for thi s procedure are in the resu lts section. documented in this encounter Results (ABNORMAL) Protime-INR (08/24/2020) P athologist Signature INR 3.30 (A) 0.9 - 1.1 Protime Specimen (Source) Anatomical Location Collection Method / Collectio n Time Received Time / Laterality Volume Blood (Blood, 08/24/2020 Venous) Resulting Agency Comment POC telephone call [facility] Historical Provider MD LAB BLOOD ORDERABLES documented in this encounter Visit Diagnoses Diagnosis Other pulmonary embolism without acute c or pulmonale, unspecified chronicity (HCC) documented in this encounter Additional Health Concerns Infection Onset Date Last Indicated Resolved Time MSSA 10/04/2018 10/04/2018 06/28/2022 8:27 AM CDT documented as of this encounter Care Teams Cargo Mate Relationship Specialty Start Date End Date Adarsh aCrpenter MD PCP - General 05/07/[address] [place] [address] documented as of this encounter
--- OUTSIDE RECORDS SUMMARY | 2022-06-30 08:26 | XMS_ITS | Encounter Summary ---
:1960 Author Organization [facility] Address [address] [place] [address] Care Team Providers Name Role Phone Adarsh Carpenter MD Primary Care Provider Reason for Visit Reason Onset Date Comments orders 04/26/2021 Encounter Details Date Type Department Care Team Description 04/26/2021 Telephone [place] Adarsh Carpenter MD orders [address] [place], [place] [address] [place], [place] [phone] (Wo rk) Social History Tobacco Use Types [...] Telephone Encounter - Vidhya Bain LPN - 04/26/2021 4:09 PM CDT Marie Ross Dispatcher Service Or Work: He is on Cipro oral tablets twice a day. She is wondering about his INR. His INR this morning was 1.75 at the hospital. She wants to recheck it on . Verbal orders given to recheck it . Disregard P.T. request at this time. Telephone Encounter - Vidhya Bain LPN - 04/26/2021 2:29 PM CDT Phone: : P.T. department Neli Ordonez [facility] We need clarification on what ordering they are wanting for Dhruv. Is it P.T. or O.T or both? What do they want the orders to be and ask if they can accept a verbal from the nurse as the primary is gone on vacation. Telephone Encounter - Patria Freeman - 04/26/2021 12:54 PM CDT Luisa from [facility] is needing orders for PT. Orders were sent for OT. You can reach her at [phone]. documented in this encounter Plan of Treatment Not on filedocumented as of this encounter Visit Diagnoses Not on filedocumented in this encounter Additional Health Concerns Infection Onset Date Last Indicated Resolved Time MSSA 10/04/2018 10/04/2018 06/28/2022 8:27 AM CDT documented as of this encounter Care Teams Coconut Boiler Relationship Specialty Start Date End Date Adarsh Carpenter MD PCP - General 05/07/[address] [place] [address] documented as of this encounter
--- OUTSIDE RECORDS SUMMARY | 2022-06-30 08:26 | XMS_ITS | Encounter Summary ---
:1960 Author Organization [facility] Address [address] [place] [address] Care Team Providers Name Role Phone Adarsh Carpenter MD Primary Care Provider Encounter Details Date Type Department Care Team Description 12/28/2020 Anticoagulation - SE Josh, Other pulm onary Warfarin Visit Anticoag/Internal ROBERT Cardenas embolism without Medicine - Third [address] pulmonale, [address] [place], [place] [address] chronicity (HCC) [address] Social History Tobacco Use [...] or relatives? How often do you attend druze or 1 to 4 times per year 04/01 hoahaoism services? Do you belong to any clubs or No 04/24/2022 organizations such as druze groups, unions, fraternal or athletic groups, or [...] encounter Progress Notes Theresa Moreno RN - 12/28/2020 12:40 PM CDT Anticoagulation Clinic - RN INR RESULTS: INR (no units) Date Value 12/28/2020 2.70 (A) DOSE PLAN: 4 mg every day DOSE CHANGE: No change NEXT INR: 4 weeks - 01/25/2021 Spoke with nurse Kent she stated Pt has had no changes to health or medications, no bruising orbleeding noted and no upcoming invasive procedures. [facility] faxed INR results, instructions, and orders to [facility] documented in this encounter Plan of Treatment Not on filedocumented as of this encounter Procedures Procedure Name Priority Date/Time Associated Diagnosis Comme nts PROTIME-INR Routine 12/28/2020 Results for thi s procedure are in the resu lts section. documented in this encounter Results (ABNORMAL) Protime-INR (12/28/2020) P athologist Signature INR 2.70 (A) 0.9 - 1.1 [facility] POINT OF CARE TESTING Protime [facility] POINT OF CARE TESTING Specimen (Source) Anatomical Location Collection Method / Collectio n Time Received Time / Laterality Volume Blood (Blood, 12/28/2020 Venous) Resulting Agency Comment INR POC result called in by Nurse Amado macias [facility] Historical Provider LAB BLOOD ORDERABLES Performing Organization [...] documented as of this encounter Care Teams Senior Product Analyst Relationship Specialty Start Date End Date Adarsh Carpenter MD PCP - General 05/07/[address] [place] [address] documented as of this encounter
--- OUTSIDE RECORDS SUMMARY | 2022-06-30 08:26 | XMS_ITS | Encounter Summary ---
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 How often do you attend pentecostalism or 1 to 4 times per year 04/01 yazdanism services? Do you belong to any clubs or No 04/24/2022 organizations such as pentecostalism groups, unions, fraternal or athletic groups, or [...] documented as of this encounter Progress Notes Ti Ellison APRN, CNP - 05/02/2021 2:37 PM CDT Anticoagulation Clinic INR RESULTS: INR (no units) Date Value 05/02/2021 1.90 (A) DOSE PLAN: 4 mg daily NEXT INR: 05/05/21 [facility] nurse called with patient's INR result. Above dosing instructions given to nurse and faxed to home care. documented in this encounter Plan of Treatment Not on filedocumented as of this encounter Procedures Procedure Name Priority Date/Time Associated Diagnosis Comme nts PROTIME-INR Routine 05/02/2021 Results for thi s procedure are in the resu lts section. documented in this encounter Results (ABNORMAL) Protime-INR (05/02/2021) P athologist Signature INR 1.90 (A) 0.9 - 1.1 [facility] [employer] Protime [facility] Specimen (Source) Anatomical Location Collection Method / Collectio n Time Received Time / Laterality Volume Blood (Blood, Venous) Resulting Agency Comment [facility] Historical Provider LAB BLOOD ORDERABLES Performing Organization Address City/State/ZIP Code Phon e Number [facility] [address] [place] [address] documented in this encounter 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
--- OUTSIDE RECORDS SUMMARY | 2022-06-30 08:26 | XMS_ITS | Encounter Summary ---
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 How often do you attend mormon or 1 to 4 times per year 04/01 judaism services? Do you belong to any clubs or No 04/24/2022 organizations such as mormon groups, unions, fraternal or athletic groups, or [...] encounter Progress Notes Anna Betts RN - 08/04/2021 1:01 PM CDT Anticoagulation Clinic - RN INR RESULTS: INR (no units) Date Value 08/04/2021 2.60 (A) DOSE PLAN: 2mg every e, Thur, Sat; 4mg all other days DOSE CHANGE: No change NEXT INR: 08/18/21 [facility] faxed INR results, instructions, and orders to [facility]. documented in this encounter Plan of Treatment Not on filedocumented as of this encounter Procedures Procedure Name Priority Date/Time Associated Diagnosis Comme nts PROTIME-INR Routine 08/04/2021 Results for thi s procedure are in the resu lts section. documented in this encounter Results (ABNORMAL) Protime-INR (08/04/2021) P athologist Signature INR 2.60 (A) 0.9 [...] documented in this encounter Visit Diagnoses Diagnosis [facility] current use of anticoagulant - Primary Other pulmonary embolism without acute c or pulmonale, unspecified chronicity (HCC) documented in this encounter Additional Health Concerns Infection Onset Date Last Indicated Resolved Time MSSA 10/04/2018 10/04/2018 06/28/2022 8:27 AM CDT documented as of this encounter Care Teams Foundation Engineer Relationship Specialty Start Date End Date Adarsh Carpenter MD PCP - General 05/07/[address] [place] [address] documented as of this encounter
--- OUTSIDE RECORDS SUMMARY | 2022-06-30 08:26 | XMS_ITS | Encounter Summary ---
:1960 Author Organization [facility] Address [address] [place] [address] Care Team Providers Name Role Phone Adarsh Carpenter MD Primary Care Provider Encounter Details Date Type Department Care Team Description 10/19/2020 Anticoagulation - SE Terri Spivey Other pul monary Warfarin Visit Anticoag/Internal J, RN embolism without Medicine - Third [address] pulmonale, [address] [place], [place] [address] chronicity (HCC) [address] Social History Tobacco Use [...] or relatives? How often do you attend baptism or 1 to 4 times per year 04/01 pentecostalism services? Do you belong to any clubs or No 04/24/2022 organizations such as baptism groups, unions, fraternal or athletic groups, or [...] encounter Progress Notes Terri Spivey RN - 10/19/2020 3:03 PM CST Anticoagulation Clinic - RN INR RESULTS: INR (no units) Date Value 10/19/2020 2.30 (A) DOSE PLAN: 2.5 mg every Sun, Sondra, Sat; 5 mg all other days DOSE CHANGE: Increased by 10% (2.5 mg/week) NEXT INR: 11/02/20 - 2 weeks Warfarin dosing and INR recheck reviewed and approved by [facility] provider, Carlin Gee CNP Also, informed nurse that if patient INR is labile in 2 weeks that we might need to change his warfarin tablet size. [facility] also informed nurse to check patient INR early if we need to change tablet size then patient can get the medication from the pharmacy. Nurse verbalized understanding. [facility] faxed INR results, instructions, and orders to [facility]. 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 documented in this encounter Results (ABNORMAL) Protime-INR (10/19/2020) P athologist Signature INR 2.30 (A) 0.9 - 1.1 [facility] [employer] Protime [facility] [employer] Specimen (Source) Anatomical Location Collection Method / Collectio n Time Received Time / Laterality Volume Blood (Blood, 10/19/2020 Venous) Resulting Agency Comment [facility] - POC Historical Provider MD LAB BLOOD ORDERABLES Performing Organization Address City/State/ZIP Code Phon e Number [facility] [address] [place] [address] documented in this encounter Visit Diagnoses Diagnosis Other pulmonary embolism without acute c or pulmonale, unspecified chronicity (HCC) documented in this encounter Additional Health Concerns Infection Onset Date Last Indicated Resolved Time MSSA 10/04/2018 10/04/2018 06/28/2022 8:27 AM CDT documented as of this encounter Care Teams Extension Professor Relationship Specialty Start Date End Date Adarsh Carpenter MD PCP - General 05/07/[address] [place] [address] documented as of this encounter
--- OUTSIDE RECORDS SUMMARY | 2022-06-30 08:26 | XMS_ITS | Encounter Summary ---
:[address] [facility] Address [address] [place] [address] Care Team Providers Name Role Phone Adarsh Carpenter MD Primary Care Provider Encounter Details Date Type Department Care Team Description 09/21/2020 Anticoagulation - SE Josh, Other pulm onary Warfarin Visit Anticoag/Internal ROBERT Cardenas embolism without Medicine - Third [address] pulmonale, [address] [place], [place] [address] chronicity (HCC) [address] Social History Tobacco Use [...] or relatives? How often do you attend confucianist or 1 to 4 times per year 04/01 adventist services? Do you belong to any clubs or No 04/24/2022 organizations such as confucianist groups, unions, fraternal or athletic groups, or [...] encounter Progress Notes Theresa Moreno RN - 09/21/2020 3:40 PM CST Anticoagulation Clinic - RN INR RESULTS: INR (no units) Date Value 09/21/2020 2.80 (A) DOSE PLAN: 2.5 mg Tue, Sondra, Sat; 5 mg all other days DOSE CHANGE: No change NEXT INR: in 2 weeks on 10/05/2020 Spoke with nurse Kent she stated there are no missed doses and no changes with Pt's health or medications. She also stated Pt has no bleeding or bruising. [facility] faxed INR results, instructions, and orders to [facility]. RUNNER documented in this encounter Plan of Treatment Not on filedocumented as of this encounter Procedures Procedure Name Priority Date/Time Associated Diagnosis Comme nts PROTIME-INR Routine 09/21/2020 Results for thi s procedure are in the resu lts section. documented in this encounter Results (ABNORMAL) Protime-INR (09/21/2020) P athologist Signature INR 2.80 (A) 0.9 - 1.1 [facility] POINT OF CARE TESTING Protime [facility] POINT OF CARE TESTING Specimen (Source) Anatomical Location Collection Method / Collectio n Time Received Time / Laterality Volume Blood (Blood, 09/21/2020 Venous) Resulting Agency Comment INR POC result called in by Nurse Amado macias ??[facility] Historical Provider LAB BLOOD ORDERABLES Performing [...] documented as of this encounter Care Teams Electronic Tech Relationship Specialty Start Date End Date Adarsh Carpenter MD PCP - General 05/07/[address] [place] [address] documented as of this encounter
--- OUTSIDE RECORDS SUMMARY | 2022-06-30 08:26 | XMS_ITS | Encounter Summary ---
:[address] 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 How often do you attend adventism or 1 to 4 times per year 04/01 moravian services? Do you belong to any clubs or No 04/24/2022 organizations such as adventism groups, unions, fraternal or athletic groups, or [...] encounter Progress Notes Theresa Moreno RN - 04/26/2021 1:40 PM CDT Anticoagulation Clinic - RN INR RESULTS: INR (no units) Date Value 04/26/2021 1.70 (A) DOSE PLAN: 4 mg Sun, Sun; 2 mg Sondra; Per discharge orders [facility] DOSE CHANGE: No maintenance plan NEXT INR: 04/29/2021 Pt Started Cipro class C med interaction. Hospitalized in [facility] 04/24-04/26/2021 [facility] faxed INR results, instructions, and orders to [facility] documented in this encounter Plan of Treatment Not on filedocumented as of this encounter Procedures Procedure Name Priority Date/Time Associated Diagnosis Comme nts PROTIME-INR Routine 04/26/2021 Results for thi s procedure are in the resu lts section. documented in this encounter Results (ABNORMAL) Protime-INR (04/26/2021) P athologist Signature INR 1.70 (A) 0.9 - 1.1 Protime Specimen (Source) Anatomical Location Collection Method / Collectio n Time Received Time / Laterality Volume Blood (Blood, 04/26/2021 Venous) Resulting Agency Comment INR called in by Pt's Nelia she state d it was tested at [facility]. 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
--- OUTSIDE RECORDS SUMMARY | 2022-06-30 08:26 | XMS_ITS | Encounter Summary ---
:1960 Author Organization [facility] Address [address] [place] [address] Care Team Providers Name Role Phone Adarsh Carpenter MD Primary Care Provider Encounter Details Date Type Department Care Team Description 11/02/2020 Anticoagulation - SE Ena Erwin Other pu lmonary Warfarin Visit Anticoag/Internal LLatanya, RN embolism without Medicine - Third [address] pulmonale, [address] [place], [place] [address] chronicity (HCC) [address] Social History Tobacco Use [...] or relatives? How often do you attend episcopal or 1 to 4 times per year 04/01 temple services? Do you belong to any clubs or No 04/24/2022 organizations such as episcopal groups, unions, fraternal or athletic groups, or [...] encounter Progress Notes Ena Erwin RN - 11/02/2020 2:17 PM CST Anticoagulation Clinic - RN INR RESULTS: INR (no units) Date Value 11/02/2020 2.10 (A) DOSE PLAN: 2.5 mg every Tue, Sat; 5 mg all other days DOSE CHANGE: Increased by 9.1% (2.5 mg/week) NEXT INR: 11/11/20 [facility] faxed INR results, instructions, and orders to [facility]. [employer] documented in this encounter Plan of Treatment Not on filedocumented as of this encounter Procedures Procedure Name Priority Date/Time Associated Diagnosis Comme nts PROTIME-INR Routine 11/02/2020 Results for thi s procedure are in the resu lts section. documented in this encounter Results (ABNORMAL) Protime-INR (11/02/2020) P athologist Signature INR 2.10 (A) 0.9 - 1.1 Protime Specimen (Source) Anatomical Location Collection Method / Collectio n Time Received Time / Laterality Volume Blood (Blood, 11/02/2020 Venous) Resulting Agency Comment POC telephone call [facility]: Yoli Munoz Historical Provider LAB BLOOD ORDERABLES documented in this encounter Visit Diagnoses Diagnosis Other pulmonary embolism without acute c or pulmonale, unspecified chronicity (HCC) documented in this encounter Additional Health Concerns Infection Onset Date Last Indicated Resolved Time MSSA 10/04/2018 10/04/201806/28/2022 8:27 AM CDT documented as of this encounter Care Teams Brick Maker Relationship Specialty Start Date End Date Adarsh Carpenter MD PCP - General 05/07/[address] [place] [address] documented as of this encounter
--- OUTSIDE RECORDS SUMMARY | 2022-06-30 08:26 | XMS_ITS | Encounter Summary ---
:1960 Author Organization [facility] Address [address] [place] [address] Care Team Providers Name Role Phone Adarsh Carpenter MD Primary Care Provider Encounter Details Date Type Department Care Team Description 11/11/2020 Anticoagulation - SE Ena Erwin Other pu lmonary Warfarin Visit Anticoag/Internal LLatanya, RN embolism without Medicine - Third [address] pulmonale, [address] [place], [place] [address] chronicity (HCC) [address] Social History Tobacco Use [...] or relatives? How often do you attend bahai or 1 to 4 times per year 04/01 restoration services? Do you belong to any clubs or No 04/24/2022 organizations such as bahai groups, unions, fraternal or athletic groups, or [...] encounter Progress Notes Ena Erwin RN - 11/11/2020 2:32 PM CST Anticoagulation Clinic - RN INR RESULTS: INR (no units) Date Value 11/11/2020 3.60 (A) DOSE PLAN: 4 mg daily DOSE CHANGE: Decreased by 6.7% (2 mg/week) NEXT INR: 11/23/20 [facility] spoke with Trudy Nurse from [facility] in regards to pt's INR: ACC reviewed safetyprecautions for s/s of bruising/bleeding. Trudy reported that there have been no changes with medications, no sicknesses, no diet changes, no s/s of bruising or bleeding and no extra doses at this time. [facility] also spoke with Trudy in regards to pt being labile and needing to change tablet size to 2 mg size tablets. Trudy stated, I will let the family know. ACC placed Rx for [facility] in [place] ACC faxed INR results, instructions, and orders to [facility] ACC provider Renetta Gee APRN, BONI consulted [employer]ERS SUPERVISOR documented in this encounter Plan of Treatment Not on filedocumented as of this encounter Procedures Procedure Name Priority Date/Time Associated Diagnosis Comme nts PROTIME-INR Routine 11/11/2020 Results for thi s procedure are in the resu lts section. documented in this encounter Results (ABNORMAL) Protime-INR (11/11/2020) P athologist Signature INR 3.60 (A) 0.9 - 1.1 Protime Specimen (Source) Anatomical Location Collection Method / Collectio n Time Received Time / Laterality Volume Blood (Blood, 11/11/2020 Venous) Resulting Agency Comment POC telephone call [facility]: Trudy Nurse Historical Provider LAB BLOOD ORDERABLES documented in this encounter Visit Diagnoses Diagnosis Other pulmonary embolism without acute c or pulmonale, unspecified chronicity (HCC) documented in this encounter Additional Health Concerns Infection Onset Date Last Indicated Resolved Time MSSA 10/04/2018 10/04/2018 06/28/2022 8:27 AM CDT documented as of this encounter Care Teams Director Hris Relationship Specialty Start Date End Date Adarsh Carpenter MD PCP - General 05/07/[address] [place] [address] documented as of this encounter
--- OUTSIDE RECORDS SUMMARY | 2022-06-30 08:26 | XMS_ITS | Encounter Summary ---
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 How often do you attend nondenominational or 1 to 4 times per year 04/01 advent services? Do you belong to any clubs or No 04/24/2022 organizations such as nondenominational groups, unions, fraternal or athletic groups, or [...] encounter Progress Notes Terri Spivey RN - 06/23/2021 1:03 PM CDT Anticoagulation Clinic - RN INR RESULTS: INR (no units) Date Value 06/23/2021 2.80 (A) DOSE PLAN: 2 mg every Tue, Sondra, Sat; 4 mg all other days DOSE CHANGE: No change NEXT INR: 07/21/21 [facility] faxed INR results, instructions, and orders to [facility]. documented in this encounter Plan of Treatment Not on filedocumented as of this encounter Procedures Procedure Name Priority Date/Time Associated Diagnosis Comme nts PROTIME-INR Routine 06/23/2021 Results for thi s procedure are in the resu lts section. documented in this encounter Results (ABNORMAL) Protime-INR (06/23/2021) P athologist Signature INR 2.80 (A) 0.9 - 1.1 [facility] [employer] Comment: [facility] - POC Protime [facility] Specimen (Source) Anatomical Location Collection Method / Collectio n Time Received Time / Laterality Volume Blood (Blood, 06/23/2021 Venous) Historical Provider LAB BLOOD ORDERABLES Performing Organization Address City/State/ZIP Code Phon e Number [facility] [address] [place] [address] documented in this encounter 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
--- OUTSIDE RECORDS SUMMARY | 2022-06-30 08:26 | XMS_ITS | Encounter Summary ---
:1960 Author Organization [facility] Address [address] [place] [address] Care Team Providers Name Role Phone Adarsh Carpenter MD Primary Care Provider Reason for Visit Reason Comments Med Refill Encounter Details Date Type Department Care Team Description 02/15/2021 Refill [place] Adarsh Carpenter, Detrusor instability [address] [place], [place] [address] [phone] [place] [address] (Wo rk) Social History Tobacco Use Types [...] to sleep or slept in a senior care (including now)? Sex Assigned at Date Recorded Not on file documented as of this encounter Miscellaneous Notes Telephone Encounter - Glenys Munoz MA - 02/15/2021 6:53 AM CDT Last visit in provider department: 07/23/2020 Last visit requested medication was discussed: 07/23/2020 Upcoming appointment with provider: None Last Rx: 03/08/2020- 180 with 3 refills Requested Prescriptions Pending Prescriptions Disp Refills ??? 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
--- OUTSIDE RECORDS SUMMARY | 2022-06-30 08:26 | XMS_ITS | Encounter Summary ---
:1960 Author Organization [facility] Address [address] [place] [address] Care Team Providers Name Role Phone Adarsh Carpenter MD Primary Care Provider Encounter Details Date Type Department Care Team Description 03/22/2021 Anticoagulation - Warfarin SE Anticoag/Internal SeeDolores RN Visit Medicine - [facility] [address] [facility] [place] [phone] Social History Tobacco Use Types Packs/Day Years [...] or relatives? How often do you attend alevism or 1 to 4 times per year 04/01 baptist services? Do you belong to any clubs or No 04/24/2022 organizations such as alevism groups, unions, fraternal or athletic groups, or [...] encounter Progress Notes Dolores Cleary RN - 03/22/2021 10:34 AM CDT Anticoagulation Clinic - RN INR RESULTS: INR (no units) Date Value 03/22/2021 3.40 (A) DOSE PLAN: 2 mg Tue, Sondra, Sat; 4 mg all other days DOSE CHANGE: Decreased by 8.3% (2 mg/week) NEXT INR: 04/05/21 [facility] faxed INR results, instructions, and orders to [facility]. documented in this encounter Plan of Treatment Not on filedocumented as of this encounter Procedures Procedure Name Priority Date/Time Associated Diagnosis Comme nts PROTIME-INR Routine 03/22/2021 Results for thi s procedure are in the resu lts section. documented in this encounter Results (ABNORMAL) Protime-INR (03/22/2021) P athologist Signature INR 3.40 (A) 0.9 [...] TESTING documented in this encounter Visit Diagnoses Not on filedocumented in this encounter Additional Health Concerns Infection Onset Date Last Indicated Resolved Time MSSA 10/04/2018 10/04/2018 06/28/2022 8:27 AM CDT documented as of this encounter Care Teams Assistant Analyst Relationship Specialty Start Date End Date Adarsh Carpenter MD PCP - General 05/07/[address] [place] [address] documented as of this encounter
--- OUTSIDE RECORDS SUMMARY | 2022-06-30 08:26 | XMS_ITS | Encounter Summary ---
:1960 Author Organization [facility] Address [address] [place] [address] Care Team Providers Name Role Phone Adarsh Carpenter MD Primary Care Provider Encounter Details Date Type Department Care Team Description 04/05/2021 Anticoagulation - SE Josh, Other acut e Warfarin Visit Anticoag/Internal ROBERT Cardenas pulmonary embolism Medicine - Third without acu te cor [address] pulmonale (HCC) [address] [place], [place] (Primary Dx) [place] [id number] Social History Tobacco Use Types Packs/Day Years [...] 1 to 4 times per year 04/01 yazidi services? Do you belong to any clubs [...] encounter Progress Notes Theresa Moreno RN - 04/05/2021 2:35 PM CDT Anticoagulation Clinic - RN INR RESULTS: INR (no units) Date Value 04/05/2021 3.00 (A) DOSE PLAN: 2 mg Tue, Sondra, Sat; 4 mg all other days. DOSE CHANGE: No change NEXT INR: 04/19/2021 Spoke with nurse Yates she stated there are no changes with Pt's Health or medications. [facility] faxed INR results, instructions, and orders to [facility]. documented in this encounter Plan of Treatment Not on filedocumented as of this encounter Procedures Procedure Name Priority Date/Time Associated Diagnosis Comme nts PROTIME-INR Routine 04/05/2021 Results for thi s procedure are in the resu lts section. documented in this encounter Results (ABNORMAL) Protime-INR (04/05/2021) P athologist Signature INR 3.00 (A) 0.9 - 1.1 HOME HEALTH POINT OF CARE TESTING Protime ORD HEALTH POINT OF CARE TESTING Specimen (Source) Anatomical Location Collection Method / Collectio n Time Received Time / Laterality Volume Blood (Blood, 04/05/2021 Venous) Resulting Agency Comment INR POC result called in by Nurse Cristian macias with [facility] Historical Provider LAB BLOOD ORDERABLES Performing Organization Address City/State/ZIP Code Phon e Number HOME HEALTH POINT OF CARE TESTING documented in this encounter Visit Diagnoses Diagnosis Other acute pulmonary embolism without a cute cor pulmonale (HCC) - Primary documented in this encounter Additional Health Concerns Infection Onset Date Last Indicated Resolved Time MSSA 10/04/2018 10/04/2018 06/28/2022 8:27 AM CDT documented as of this encounter Care Teams Mural Artist Relationship Specialty Start Date End Date Adarsh Carpenter MD PCP - General 05/07/[address] [place] [address] documented as of this encounter
--- OUTSIDE RECORDS SUMMARY | 2022-06-30 08:26 | XMS_ITS | Encounter Summary ---
:[address] [facility] Address [address] [place] [address] Care Team Providers Name Role Phone Adarsh Carpenter MD Primary Care Provider Reason for Visit Reason Comments Med Refill Encounter Details Date Type Department Care Team Description 11/29/2020 Refill [place] Adarsh Carpenter, Multiple sclerosis (HCC) [address] [place], [place] [address] [phone] [place] [address] Social History Tobacco Use Types Packs/Day Years [...] this encounter Miscellaneous Notes Telephone Encounter - Herlinda Gomez LPN - 12/01/2020 6:32 AM CST Last visit in provider department: 07/12/2020 Last visit requested medication was discussed: 01/19/2020 Upcoming appointment with provider: Visit date not found Last Rx: #90, 3 refills 08/13/2020 Requested Prescriptions Pending Prescriptions Disp Refills ??? 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
--- OUTSIDE RECORDS SUMMARY | 2022-06-30 08:26 | XMS_ITS | Encounter Summary ---
:1960 Author Organization [facility] Address [address] [place] [address] Care Team Providers Name Role Phone Adarsh Carpenter MD Primary Care Provider Encounter Details Date Type Department Care Team Description 05/05/2021 Anticoagulation - SE Terri Spivey [facility] current Warfarin Visit Anticoag/Internal J, RN use of anticoagulant Medicine - Third [address] (Primary Dx ) [address] [place] [address] [phone] Social History Tobacco Use Types Packs/Day Years [...] encounter Progress Notes Terri Spivey RN - 05/05/2021 2:28 PM CDT Anticoagulation Clinic - RN INR RESULTS: INR (no units) Date Value 05/05/2021 2.80 (A) DOSE PLAN: 2 mg every Tue, Sondra, Sat; 4 mg all other days DOSE CHANGE: Establishing maintenance dose. NEXT INR: 05/12/21 Warfarin dosing and INR recheck discussed and reviewed with [facility] provider, Christian Ellison CNP [facility] faxed INR results, instructions, and orders to [facility]. documented in this encounter Plan of Treatment Not on filedocumented as of this encounter Procedures Procedure Name Priority Date/Time Associated Diagnosis Comme nts PROTIME-INR Routine 05/05/2021 Results for thi s procedure are in the resu lts section. documented in this encounter Results (ABNORMAL) Protime-INR (05/05/2021) P athologist Signature INR 2.80 (A) 0.9 - 1.1 [facility]ILL [facility]MER Comment: [facility] - Lab Protime [facility] Specimen (Source) Anatomical Location Collection Method / Collectio n Time Received Time / Laterality Volume Blood (Blood, 05/05/2021 Venous) Historical Provider LAB BLOOD ORDERABLES Performing Organization Address City/State/ZIP Code Phon e Number [facility] [address] [place] [address] documented in this encounter 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
--- OUTSIDE RECORDS SUMMARY | 2022-06-30 08:26 | XMS_ITS | Encounter Summary ---
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 How often do you attend taoist or 1 to 4 times per year 04/01 anabaptism services? Do you belong to any clubs or No 04/24/2022 organizations such as taoist groups, unions, fraternal or athletic groups, or [...] encounter Progress Notes Dolores Cleary RN - 04/19/2021 1:24 PM CDT Anticoagulation Clinic - RN INR RESULTS: INR (no units) Date Value 04/19/2021 2.70 (A) DOSE PLAN: 2 mg Tue, Sondra, Sat; 4 mg all other days DOSE CHANGE: No change NEXT INR: 05/10/21 [facility] faxed INR results, instructions, and orders to [facility]. documented in this encounter Plan of Treatment Not on filedocumented as of this encounter Procedures Procedure Name Priority Date/Time Associated Diagnosis Comme nts PROTIME-INR Routine 04/19/2021 Results for thi s procedure are in the resu lts section. 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
--- OUTSIDE RECORDS SUMMARY | 2022-06-30 08:26 | XMS_ITS | Encounter Summary ---
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 Do you belong to any clubs [...] encounter Progress Notes Theresa Moreno RN - 04/28/2021 3:15 PM CDT Anticoagulation Clinic - RN INR RESULTS: INR (no units) Date Value 04/28/2021 1.50 (A) DOSE PLAN: 2 mg Tue, Sondra, Sat; 4 mg all other days DOSE CHANGE: No change NEXT INR: 05/02/2021 Spoke with nurse Yates she stated Pt did not miss any doses and is taking Cipro. Have Pt seen inthe ER for chest pain, shortness of breath or pain/swelling in an extremity. [facility] faxed INR results, instructions, and orders to [facility]. documented in this encounter Plan of Treatment Not on filedocumented as of this encounter Procedures Procedure Name Priority Date/Time Associated Diagnosis Comme nts PROTIME-INR Routine 04/28/2021 Results for thi s procedure are in the resu lts section. 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
--- OUTSIDE RECORDS SUMMARY | 2022-06-30 08:26 | XMS_ITS | Encounter Summary ---
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 Dosing plan and INR recheck discussed with PCP. [facility] faxed INR results, instructions, and orders to [facility]. documented in this encounter Plan of Treatment Not on filedocumented as of this encounter Procedures Procedure Name Priority Date/Time Associated Diagnosis Comme nts PROTIME-INR Routine 07/21/2021 Results for thi s procedure are in the resu lts section. documented in this encounter Results (ABNORMAL) Protime-INR (07/21/2021) P athologist Signature INR 2.30 (A) 0.9 [...] documented as of this encounter Care Teams Grocery Shopper Relationship Specialty Start Date End Date Adarsh Carpenter MD PCP - General 05/07/[address] [place] [address] documented as of this encounter
--- OUTSIDE RECORDS SUMMARY | 2022-06-30 08:26 | XMS_ITS | Encounter Summary ---
:1960 Author Organization [facility] Address [address] [place] [address] Care Team Providers Name Role Phone Adarsh Carpenter MD Primary Care Provider Encounter Details Date Type Department Care Team Description 05/26/2021 Anticoagulation - SE Terri Spivey [facility] current Warfarin Visit Anticoag/Internal J, RN use of anticoagulant Medicine - Third [address] (Primary Dx ) [address] [place] [address] [phone] Social History Tobacco Use Types Packs/Day Years [...] or relatives? How often do you attend shinto or 1 to 4 times per year 04/01 pentecostal services? Do you belong to any clubs or No 04/24/2022 organizations such as shinto groups, unions, fraternal or athletic groups, or [...] encounter Progress Notes Terri Spivey RN - 05/26/2021 1:46 PM CDT Anticoagulation Clinic - RN INR RESULTS: INR (no units) Date Value 05/26/2021 2.80 (A) DOSE PLAN: 2 mg every Tue, Sondra, Sat; 4 mg all other days DOSE CHANGE: No change NEXT INR: 06/23/21 [facility] faxed INR results, instructions, and orders to [facility]. documented in this encounter Plan of Treatment Not on filedocumented as of this encounter Procedures Procedure Name Priority Date/Time Associated Diagnosis Comme nts PROTIME-INR Routine 05/26/2021 Results for thi s procedure are in the resu lts section. documented in this encounter Results (ABNORMAL) Protime-INR (05/26/2021) P athologist Signature INR 2.80 (A) 0.9 - 1.1 [facility]ILL [facility]ER Comment: [facility] - POC Protime [facility] Specimen (Source) Anatomical Location Collection Method / Collectio n Time Received Time / Laterality Volume Blood (Blood, 05/26/2021 Venous) Historical Provider LAB BLOOD ORDERABLES Performing Organization Address City/State/ZIP Code Phon e Number [facility] [address] [place] [address] documented in this encounter Visit Diagnoses Diagnosis [facility] current use of anticoagulant - Primary documented in this encounter Additional Health Concerns Infection Onset Date Last Indicated Resolved Time MSSA 10/04/2018 10/04/2018 06/28/2022 8:27 AM CDT documented as of this encounter Care Teams Career Placement Specialist Relationship Specialty Start Date End Date Adarsh Carpenter MD PCP - General 05/07/[address] [place] [address] documented as of this encounter
--- OUTSIDE RECORDS SUMMARY | 2022-06-30 08:26 | XMS_ITS | Encounter Summary ---
:1960 Author Organization [facility] Address [address] [place] [address] Care Team Providers Name Role Phone Adarsh Carpenter MD Primary Care Provider Encounter Details Date Type Department Care Team Description 08/13/2020 Orders Only [place] Adarsh Carpenter Multiple sclerosis [address] MD Hang ([facility]) (Primary Dx) [place], [place] [address] [address] [facility] [address] [place] [address] Social History Tobacco Use Types Packs/Day Years [...] 1 to 4 times per year 04/01 tenriism services? Do you belong to any clubs [...] documented as of this encounter Care Teams Sales And Retail Management Recruiter Relationship Specialty Start Date End Date Adarsh Carpenter MD PCP - General 05/07/[address] [place] [address] documented as of this encounter
--- OUTSIDE RECORDS SUMMARY | 2022-06-30 08:26 | XMS_ITS | Encounter Summary ---
:1960 Author Organization [facility] Address [address] [place] [address] Care Team Providers Name Role Phone Adarsh Carpenter MD Primary Care Provider Encounter Details Date Type Department Care Team Description 11/23/2020 Anticoagulation - SE Josh, Other pulm onary Warfarin Visit Anticoag/Internal ROBERT Cardenas embolism without Medicine - Third [address] pulmonale, [address] [place], [place] [address] chronicity (HCC) [address] Social History Tobacco Use [...] or relatives? How often do you attend anabaptist or 1 to 4 times per year 04/01 religion services? Do you belong to any clubs or No 04/24/2022 organizations such as anabaptist groups, unions, fraternal or athletic groups, or [...] encounter Progress Notes Theresa Moreno RN - 11/23/2020 1:42 PM CST Anticoagulation Clinic - RN INR RESULTS: INR (no units) Date Value 11/23/2020 2.60 (A) DOSE PLAN: 4 mg every day DOSE CHANGE: No change NEXT INR: 12/07/2020 Spoke with nurse Kent she states no changes to Pt's health or medications. Instructed to call [facility] with any changes to Pt's health or medications. [facility] faxed INR results, instructions, and orders to [facility]. RDS MANAGEMENT ASSOCIATE documented in this encounter Plan of Treatment Not on filedocumented as of this encounter Procedures Procedure Name Priority Date/Time Associated Diagnosis Comme nts PROTIME-INR Routine 11/23/2020 Results for thi s procedure are in the resu lts section. documented in this encounter Results (ABNORMAL) Protime-INR (11/23/2020) P athologist Signature INR 2.60 (A) 0.9 - 1.1 HOME HEALTH POINT OF CARE TESTING Protime HOME HEALTH POINT OF CARE TESTING Specimen (Source) Anatomical Location Collection Method / Collectio n Time Received Time / Laterality Volume Blood (Blood, 11/23/2020 Venous) Resulting Agency Comment INR POC result called in by nurse roosevelt macias [facility] Historical Provider LAB BLOOD ORDERABLES Performing [...] documented as of this encounter Care Teams Hatch Tender Relationship Specialty Start Date End Date Adarsh Carpenter MD PCP - General 05/07/[address] [place] [address] documented as of this encounter
--- OUTSIDE RECORDS SUMMARY | 2022-06-30 08:26 | XMS_ITS | Encounter Summary ---
:1960 Author Organization [facility] Address [address] [place] [address] Care Team Providers Name Role Phone Adarsh Carpenter MD Primary Care Provider Reason for Visit Reason Comments Med Refill Encounter Details Date Type Department Care Team Description 07/20/2021 Refill [place] Adarsh Carpenter MD Neurogenic bladder [address] [place], [place] [address] [place], [place] [phone] [phone] (Wo rk) Social History Tobacco Use Types [...] Telephone Encounter - Sofia Denson RN - 07/25/2021 8:19 AM CDT Review request. Telephone Encounter - Alison Packer MA - 07/25/2021 7:46 AM CDT Last visit in provider department: 07/12/20 Last visit requested medication was discussed: 01/19/20 Upcoming appointment with provider: none Last Rx: 06/08/20, #120, 11 refills Requested Prescriptions Pending Prescriptions Disp Refills ??? Catheters (Self-Cath Straight Tip) misc [Pharmacy Med Name: SELF-CATH STRAIGHT TIPPED CA MISC] 120 each 11 Sig: USE DIRECTED Vitals: BP Readings from Last 2 Encounters: 07/12/20 134/90 08/11/19 112/72 Patient is due for an appointment. PSR/Nurse: Please contact patient to assist with scheduling. documented in this encounter Plan of Treatment Not on filedocumented as of this encounter Visit Diagnoses Diagnosis Neurogenic bladder Neurogenic bladder, NOS documented in this encounter Additional Health Concerns Infection Onset Date Last Indicated Resolved Time MSSA 10/04/2018 10/04/2018 06/28/2022 8:27 AM CDT documented as of this encounter Care Teams Internet Ecommerce Specialist Relationship Specialty Start Date End Date Adarsh Carpenter MD PCP - General 05/07/[address] [place] [address] documented as of this encounter
--- OUTSIDE RECORDS SUMMARY | 2022-06-30 08:26 | XMS_ITS | Encounter Summary ---
:1960 Author Organization [facility] Address [address] [place] [address] Care Team Providers Name Role Phone Adarsh Carpenter MD Primary Care Provider Encounter Details Date Type Department Care Team Description 05/12/2021 Anticoagulation - SE [place], residential current use of anticoagulant (Primary Dx); Warfarin Visit Anticoag/Gilberto Castillo RN Other pulmonary embolism without acute c or pulmonale, unspecified chronicity (HCC) Medicine - Third [address] [place] [id number] Social History Tobacco Use [...] encounter Progress Notes Anna Betts RN - 05/12/2021 3:10 PM CDT Anticoagulation Clinic INR RESULTS: INR (no units) Date Value 05/12/2021 2.90 (A) DOSE PLAN: 2mg Tue, Thur, Sat; 4mg all other days DOSE CHANGE: No change NEXT INR: 05/26/21 [facility] faxed INR results, instructions, and orders to [facility]. documented in this encounter Plan of Treatment Not on filedocumented as of this encounter Procedures Procedure Name Priority Date/Time Associated Diagnosis Comme nts PROTIME-INR Routine 05/12/2021 Results for thi s procedure are in the resu lts section. documented in this encounter Results (ABNORMAL) Protime-INR (05/12/2021) athologist Signature INR 2.90 (A) 0.9 - 1.1 [facility] [place] Comment: [place]-P[place] Protime [facility] Specimen (Source) Anatomical Location Collection Method / Collectio n Time Received Time / Laterality Volume Blood (Blood, 05/12/2021 Venous) Historical Provider LAB BLOOD ORDERABLES Performing Organization Address City/State/ZIP Code Phon e Number [facility] [address] [place] [address] documented in this encounter 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
--- OUTSIDE RECORDS SUMMARY | 2022-06-30 08:26 | XMS_ITS | Encounter Summary ---
:1960 Author Organization [facility] Address [address] [place] [address] Care Team Providers Name Role Phone Adarsh Carpenter MD Primary Care Provider Encounter Details Date Type Department Care Team Description 10/05/2020 Anticoagulation - SE Ena Erwin Other pu lmonary Warfarin Visit Anticoag/Internal LLatanya, RN embolism without Medicine - Third [address] pulmonale, [address] [place], [place] [address] chronicity (HCC) [address] Social History Tobacco Use [...] encounter Progress Notes Ena Erwin RN - 10/05/2020 12:53 PM CST Anticoagulation Clinic - RN INR RESULTS: INR (no units) Date Value 10/05/2020 3.30 (A) DOSE PLAN: 5 mg every Mon, Wed, Fri; 2.5 mg all other days DOSE CHANGE: Decreased by 9.1% (2.5 mg/week) NEXT INR: 2 weeks; 10/19/20 [facility] faxed INR results, instructions, and orders to [facility]. [facility] reviewed safety precautions for s/s bruising/ bleeding with Trudy Nurse caring for the patient, any blood in places we don't normally seeAny blood in places we don't normally see it patient needs to be seen right away. Any persistent bleeding after pressure applied 10 minutes patient needs to be seen right away. Trudy denies that the patient has any s/s of bruising/bleeding at this time. [facility] provider Renetta Gee APRN, DIRECTOR BUSINESS DEVELOPMENT consulted NG REPAIRER documented in this encounter Plan of Treatment Not on filedocumented as of this encounter Procedures Procedure Name Priority Date/Time Associated Diagnosis Comme nts PROTIME-INR Routine 10/05/2020 Results for thi s procedure are in the resu lts section. documented in this encounter Results (ABNORMAL) Protime-INR (10/05/2020) P athologist Signature INR 3.30 (A) 0.9 - 1.1 Protime Specimen (Source) Anatomical Location Collection Method / Collectio n Time Received Time / Laterality Volume Blood (Blood, 10/05/2020 Venous) Resulting Agency Comment POC telephone call [facility]: Trudy nurse Historical Provider LAB BLOOD ORDERABLES documented in this encounter Visit Diagnoses Diagnosis Other pulmonary embolism without acute c or pulmonale, unspecified chronicity (HCC) documented in this encounter Additional Health Concerns Infection Onset Date Last Indicated Resolved Time MSSA 10/04/2018 10/04/2018 06/28/2022 8:27 AM CDT documented as of this encounter Care Teams Senior Loan Officer Relationship Specialty Start Date End Date Adarsh Carpenter MD PCP - General 05/07/[address] [place] [address] documented as of this encounter
--- OUTSIDE RECORDS SUMMARY | 2022-06-30 08:26 | XMS_ITS | Encounter Summary ---
:1960 Author Organization [facility] Address [address] [place] [address] Care Team Providers Name Role Phone Adarsh Carpenter MD Primary Care Provider Encounter Details Date Type Department Care Team Description 03/08/2021 Anticoagulation - Warfarin SE Anticoag/Internal Terri Spivey, Visit Medicine - Third RN Floor [address] [place] [address] [place], [place] [phone] [address] Social History Tobacco Use Types Packs/Day [...] or relatives? How often do you attend anglican or 1 to 4 times per year 04/01 amish services? Do you belong to any clubs or No 04/24/2022 organizations such as anglican groups, unions, fraternal or athletic groups, or [...] encounter Progress Notes Terri Spivey RN - 03/08/2021 12:31 PM CDT Anticoagulation Clinic - RN Protocol Screening INR RESULTS: INR (no units) Date Value 03/08/2021 3.40 (A) DOSE PLAN: 2 mg every Sun, Sondra; 4 mg all other days DOSE CHANGE: Decreased by 7.7% (2 mg/week) NEXT INR: 03/22/21 VERIFY PREVIOUS DOSE PLAN Verified with the nurse from [facility] MISSED/EXTRA DOSES No MEDICATION CHANGES No DIET OR ALCOHOL CHANGES No RECENT ILLNESS/ HOSPITALIZATIONS No ABNORMAL BLEEDING OR BRUISING No,The nurse denies that the patient having any [...] dose planand date of next INR. AVS faxed to [facility]. documented in this encounter Plan of Treatment Not on filedocumented as of this encounter Procedures Procedure Name Priority Date/Time Associated Diagnosis Comme nts PROTIME-INR Routine 03/08/2021 Results for thi s procedure are in the resu lts section. documented in this encounter Results (ABNORMAL) Protime-INR (03/08/2021) P athologist Signature INR 3.40 (A) 0.9 - 1.1 [facility] [place] Comment: [facility] - POC Protime [facility] [place] [place] Specimen (Source) Anatomical Location Collection Method / Collectio n Time Received Time / Laterality Volume Blood (Blood, 03/08/2021 Venous) Historical Provider LAB BLOOD ORDERABLES Performing Organization Address City/State/ZIP Code Phon e Number [facility] [address] [place] [address] documented in this encounter Visit Diagnoses Not on filedocumented in this encounter Additional Health Concerns Infection Onset Date Last Indicated Resolved Time MSSA 10/04/2018 10/04/2018 06/28/2022 8:27 AM CDT documented as of this encounter Care Teams Assisted Living Administrator Relationship Specialty Start Date End Date Adarsh Carpenter MD PCP - General 05/07/[address] [place] [address] documented as of this encounter
--- OUTSIDE RECORDS SUMMARY | 2022-06-30 08:26 | XMS_ITS | Encounter Summary ---
:[address] [facility] Address [address] [place] [address] Care Team Providers Name Role Phone Adarsh Carpenter MD Primary Care Provider Encounter Details Date Type Department Care Team Description 09/07/2020 Anticoagulation - SE Ena Erwin Other pu lmonary Warfarin Visit Anticoag/Internal L., RN embolism without Medicine - Third [address] pulmonale, [address] [place], [place] [address] chronicity (HCC) [address] Social History Tobacco Use [...] or relatives? How often do you attend muslim or 1 to 4 times per year 04/01 amish services? Do you belong to any clubs or No 04/24/2022 organizations such as muslim groups, unions, fraternal or athletic groups, or [...] encounter Progress Notes Ena Erwin RN - 09/07/2020 4:51 PM CST Anticoagulation Clinic - RN INR RESULTS: INR (no units) Date Value 09/07/2020 2.00 (A) DOSE PLAN: 2.5 mg every e, Sondra, Sat; 5 mg all other days DOSE CHANGE: Increased by 10% (2.5 mg/week) NEXT INR: 2 weeks; 09/21/20 [facility] faxed INR results, instructions, and orders to [facility]. TUTOR documented in this encounter Plan of Treatment Not on filedocumented as of this encounter Procedures Procedure Name Priority Date/Time Associated Diagnosis Comme nts PROTIME-INR Routine 09/07/2020 Results for thi s procedure are in the resu lts section. documented in this encounter Results (ABNORMAL) Protime-INR (09/07/2020) P athologist Signature INR 2.00 (A) 0.9 - 1.1 Protime Specimen (Source) Anatomical Location Collection Method / Collectio n Time Received Time / Laterality Volume Blood (Blood, 09/07/2020 Venous) Resulting Agency Comment POC telephone call [facility]: Marifer Historical Provider LAB BLOOD ORDERABLES documented in this encounter Visit Diagnoses Diagnosis Other pulmonary embolism without acute c or pulmonale, unspecified chronicity (HCC) documented in this encounter Additional Health Concerns Infection Onset Date Last Indicated Resolved Time MSSA 10/04/2018 10/04/2018 06/28/2022 8:27 AM CDT documented as of this encounter Care Teams Work Study Student Relationship Specialty Start Date End Date Adarsh Carpenter MD PCP - General 05/07/[address] [place] [address] documented as of this encounter
--- OUTSIDE RECORDS SUMMARY | 2022-06-30 08:27 | XMS_ITS | Encounter Summary ---
:1960 Author Organization [facility] Address [address] [place] [address] Care Team Providers Name Role Phone Adarsh Carpenter MD Primary Care Provider Encounter Details Date Type Department Care Team Description 06/30/2020 Anticoagulation - SE Josh, Other pulm onary Warfarin Visit Anticoag/Internal ROBERT Cardenas embolism without Medicine - Third [address] pulmonale, [address] [place], [place] [address] chronicity (HCC) [address] Social History Tobacco Use [...] or relatives? How often do you attend protestant or 1 to 4 times per year 04/01 mormonism services? Do you belong to any clubs or No 04/24/2022 organizations such as protestant groups, unions, fraternal or athletic groups, or [...] encounter Progress Notes Theresa Moreno RN - 06/30/2020 12:09 PM CDT Anticoagulation Clinic - RN INR RESULTS: INR (no units) Date Value 06/15/2020 1.80 (A) DOSE PLAN: 2.5 mg Wed (06/30/20), Sondra(07/01); 5 mg Fri(07/02); 2.5 Sat (07/03),5 mg Sun(07/04), Mon (07/05); Retest INR Sun07/06/2020 DOSE CHANGE: No maintenance plan NEXT INR: in 1 week on Sun07/06/2020 Voicemail Left by Nurse Marifer at 11:37am; she stated Pt has no bleeding no bruising; eating greens 3 days a week according to Pt's . Marifer called [facility] back at 12:23p was given dosing plan and next INR test date, she stated could testnext Sun07/06/20. Marifer stated she would call Pt's Nelia to give her the dosing plan and next INR check date. Monitor Pt for S/S of bleeding blood in the Urine or the stool or uncontrolled bleeding; have Pt seen in ER if any of these occur. [facility] called Nelia's cell phone but was unable to leave a message. [facility] faxed INR results, instructions, and orders to [facility]. documented in this encounter Plan of Treatment Not on filedocumented as of this encounter Procedures Procedure Name Priority Date/Time Associated Diagnosis Comme nts PROTIME-INR Routine 06/30/2020 Results for thi s procedure are in the resu lts section. documented in this encounter Results (ABNORMAL) Protime-INR (06/30/2020) P athologist Signature INR 3.70 (A) 0.9 - 1.1 [facility] POINT OF CARE TESTING Protime [facility] POINT OF CARE TESTING Specimen (Source) Anatomical Location Collection Method / Collectio n Time Received Time / Laterality Volume Blood (Blood, 06/30/2020 Venous) Resulting Agency Comment INR POC called in by Nurse Marifer [facility] Historical Provider LAB BLOOD ORDERABLES Performing [...] documented as of this encounter Care Teams Dump Operator Relationship Specialty Start Date End Date Adarsh Carpenter MD PCP - General 05/07/[address] [place] [address] documented as of this encounter
--- OUTSIDE RECORDS SUMMARY | 2022-06-30 08:27 | XMS_ITS | Encounter Summary ---
:1960 Author Organization [facility] Address [address] [place] [address] Care Team Providers Name Role Phone Adarsh Carpenter MD Primary Care Provider Encounter Details Date Type Department Care Team Description 07/16/2020 Anticoagulation - SE Terri Spivey Other pul monary Warfarin Visit Anticoag/Internal J, RN embolism without Medicine - Third [address] pulmonale, [address] [place], [place] [address] chronicity (HCC) [address] Social History Tobacco Use [...] encounter Progress Notes Terri Spivey RN - 07/16/2020 1:32 PM CDT Anticoagulation Clinic - RN INR RESULTS: INR (no units) Date Value 07/16/2020 1.70 (A) DOSE PLAN: 5 mg Fri (07/16), Sun(07/18); 2.5 mg Sat (07/17), Mon (07/19) then recheck INR DOSE CHANGE: No maintenance dose at this time NEXT INR: 07/20/2020 - 4 days Warfarin dosing and INR recheck reviewed and approved by [facility] provider, Carlin Gee CNP Per Mercedes nurse, patient did not missed any dose, no new medication, not aware of any changes on his health or diet. [facility] faxed INR results, instructions, and orders to [facility]. documented in this encounter Plan of Treatment Not on filedocumented as of this encounter Procedures Procedure Name Priority Date/Time Associated Diagnosis Comme nts PROTIME-INR Routine 07/16/2020 Results for thi s procedure are in the resu lts section. documented in this encounter Results (ABNORMAL) Protime-INR (07/16/2020) P athologist Signature INR 1.70 (A) 0.9 - 1.1 [facility] [place] Protime [facility] [employer] Specimen (Source) Anatomical Location Collection Method / Collectio n Time Received Time / Laterality Volume Blood (Blood, 07/16/2020 Venous) Resulting Agency Comment [facility] lab Historical Provider LAB BLOOD ORDERABLES Performing Organization Address City/State/ZIP Code Phon e Number [facility] [address] [place] [address] documented in this encounter Visit Diagnoses Diagnosis Other pulmonary embolism without acute c or pulmonale, unspecified chronicity (HCC) documented in this encounter Additional Health Concerns Infection Onset Date Last Indicated Resolved Time MSSA 10/04/2018 10/04/2018 06/28/2022 8:27 AM CDT documented as of this encounter Care Teams Human Resources Safety Manager Relationship Specialty Start Date End Date Adarsh Carpenter MD PCP - General 05/07/[address] [place] [address] documented as of this encounter
--- OUTSIDE RECORDS SUMMARY | 2022-06-30 08:27 | XMS_ITS | Encounter Summary ---
:1960 Author Organization [facility] Address [address] [place] [address] Care Team Providers Name Role Phone Adarsh Carpenter MD Primary Care Provider Encounter Details Date Type Department Care Team Description 07/09/2020 Anticoagulation - SE Terri Spivey Other pul monary Warfarin Visit Anticoag/Internal J, RN embolism without Medicine - Third [address] pulmonale, [address] [place], [place] [address] chronicity (HCC) [address] Social History Tobacco Use [...] 1 to 4 times per year 04/01 scientologist services? Do you belong to any clubs [...] encounter Progress Notes Terri Spivey RN - 07/09/2020 12:42 PM CDT Anticoagulation Clinic - RN Protocol Screening INR RESULTS: INR (no units) Date Value 07/09/2020 2.10 (A) DOSE PLAN: 5 mg Fri (07/09), Sun (07/10); 2.5 mg Sat (07/11) then recheck INR DOSE CHANGE: No maintenance dose at this time NEXT INR: 07/12/2020 - 3 days Warfarin dosing and INR recheck reviewed and approved by [facility] provider, Christian Ellison CNP VERIFY PREVIOUS DOSE PLAN Verified - with patient nurse Mercedes - Mercedes state that per hospital discharged note that patient did not received a dose on 07/05/2020, and received 2.5 mg on 07/06; 07/07;07/08. MISSED/EXTRA DOSES No MEDICATION CHANGES Yes, patient was recently discharged from [facility] on 07/07/2020. Patient started on Levaquin and it will be on this medication until Sunday. DIET OR ALCOHOL CHANGES No RECENT ILLNESS/ HOSPITALIZATIONS Yes, discharged from [facility] ABNORMAL BLEEDING OR BRUISING No FALLS OR INJURIES No NEW PAIN SYMPTOMS No NEW SHORTNESS OF BREATH No NEW NEUROLOGICAL SYMPTOMS No INR results reviewed with the patient nurse Mercedes. She verbalized understanding of anticoagulationdose plan and date of next INR. AVS faxed to [facility]. documented in this encounter Plan of Treatment Not on filedocumented as of this encounter Procedures Procedure Name Priority Date/Time Associated Diagnosis Comme nts PROTIME-INR Routine 07/09/2020 Results for thi s procedure are in the resu lts section. PROTIME-INR Routine 07/07/2020 Results for thi s procedure are in the resu lts section. PROTIME-INR Routine 07/06/2020 Results for thi s procedure are in the resu lts section. PROTIME-INR Routine 07/05/2020 Results for thi s procedure are in the resu lts section. documented in this encounter Results (ABNORMAL) Protime-INR (07/12/2020 9:30 AM CDT) P athologist Signature Protime 37.2 (H) 10.6 - 12.9 07/12/2020 [facility] 12:59 PM CDT [facility] Comment: . INR 3.1 07/12/2020 12:59 PM CDT [facility] Comment: Suggested INR Therapeutic Ranges* Intensity ?Standard ?Higher ? 2.0-3.0 ? 2.5-3.5 *Target INR should be individualized. Occasionally, INR range 3.0-4.5 may be appropriate. Higher intensity INR: Mechanical heart valve, etc. Specimen Anatomical Collection Method Collection Time Receive d Time (Source) Location / / Volume Laterality Blood (Blood, 07/12/2020 9:30 AM 07/12/20 20 Venous) CDT 12:30 PM CDT Ti Ellison APRN, HOSPITALIST PHYSICIAN LAB BLOOD ORDERABLES Performing Organization Address City/State/ZIP Code Phon e Number [facility] [address] [place] [address] (ABNORMAL) Protime-INR (07/09/2020) P athologist Signature INR 2.10 (A) 0.9 - 1.1 [facility] [place] Protime [facility] [place] Specimen (Source) Anatomical Location Collection Method / Collectio n Time Received Time / Laterality Volume Blood (Blood, 07/09/2020 Venous) Resulting Agency Comment [facility] Historical Provider LAB BLOOD ORDERABLES Performing Organization Address [facility]/ZIP [facility] Phon e Number [facility] [place] [address] [place] [address] (ABNORMAL) Protime-INR (07/07/2020) P athologist Signature INR 2.00 (A) 0.9 - 1.1 [facility] [place] Protime [facility] [place] Specimen (Source) Anatomical Location Collection Method / Collectio n Time Received Time / Laterality Volume Blood (Blood, 07/07/2020 Venous) Resulting Agency Comment [facility] Lab Historical Provider LAB BLOOD ORDERABLES Performing Organization Address [facility] Phon e Number [facility] [place] [address] [place] [address] (ABNORMAL) Protime-INR (07/06/2020) P athologist Signature INR 2.70 (A) 0.9 - 1.1 [facility] [place] Protime [facility] [place] Specimen (Source) Anatomical Location Collection Method / Collectio n Time Received Time / Laterality Volume Blood (Blood, 07/06/2020 Venous) Resulting Agency Comment [facility] Historical Provider LAB BLOOD ORDERABLES Performing Organization Address [facility] Code Phon e Number [facility] [place] [address] [place] [address] (ABNORMAL) Protime-INR (07/05/2020) P athologist Signature INR 4.30 (A) 0.9 - 1.1 [facility] [place] Protime [facility] [place] Specimen (Source) Anatomical Location Collection Method / Collectio n Time Received Time / Laterality Volume Blood (Blood, 07/05/2020 Venous) Resulting Agency Comment [facility] Historical Provider LAB BLOOD ORDERABLES Performing Organization Address City/[facility]/ZIP [facility] Phon e Number [facility] [place] [address] [place] [address] documented in this encounter Visit Diagnoses Diagnosis Other pulmonary embolism without acute c or pulmonale, unspecified chronicity (HCC) documented in this encounter Additional Health Concerns Infection Onset Date Last Indicated Resolved Time MSSA 10/04/2018 10/04/2018 06/28/2022 8:27 AM CDT documented as of this encounter Care Teams Net Repairer Relationship Specialty Start Date End Date Adarsh Carpenter MD PCP - General 05/07/[address] [place] [address] documented as of this encounter
--- OUTSIDE RECORDS SUMMARY | 2022-06-30 08:27 | XMS_ITS | Encounter Summary ---
:1960 Author Organization [facility] Address [address] [place] [address] Care Team Providers Name Role Phone Adarsh Carpenter MD Primary Care Provider Reason for Visit Reason Onset Date Comments Cognitive concerns 06/30/2020 Encounter Details Date Type Department Care Team Description 06/30/2020 [place]phone [place], Cognitive concerns [address] [place], [place] [address] [phone] [place] [address] (Wo rk) Social History Tobacco Use Types [...] 1 to 4 times per year 04/01 jehovah's witness services? Do you belong to any clubs [...] Telephone Encounter - Sofia Denson RN - 07/01/2020 11:55 AM CDT Noted. Telephone Encounter - Adarsh Carpenter MD - 07/01/2020 10:11 AM CDT I called and talked to Nelia about this and for now no further evaluation. Telephone Encounter - Vidhya Bain LPN - 06/30/2020 4:46 PM CDT She was there yesterday. She stated Nelia pulled her outside and Nelia has noticed some cognitive issues. Nelia is wondering if Aricept or Namenda would be of any benefit? Telephone Encounter - Patria Freeman - 06/30/2020 10:00 AM CDT Mercedes from [facility] is requesting to speak to a nurse about congnitive issues. Please call her at [phone]. documented in this encounter Plan of Treatment Not on filedocumented as of this encounter Visit Diagnoses Not on filedocumented in this encounter Additional Health Concerns Infection Onset Date Last Indicated Resolved Time MSSA 10/04/2018 10/04/2018 06/28/2022 8:27 AM CDT documented as of this encounter Care Teams Damage Prevention Coordinator Relationship Specialty Start Date End Date Adarsh Carpenter MD PCP - General 05/07/[address] [place] [address] documented as of this encounter
--- OUTSIDE RECORDS SUMMARY | 2022-06-30 08:27 | XMS_ITS | Encounter Summary ---
:1960 Author Organization [facility] Address [address] [place] [address] Care Team Providers Name Role Phone Adarsh Carpenter MD Primary Care Provider Encounter Details Date Type Department Care Team Description 07/12/2020 Anticoagulation - SE Josh, Other pulm onary Warfarin Visit Anticoag/Internal ROBERT Cardenas embolism without Medicine - Third [address] pulmonale, [address] [place], [place] [address] chronicity (HCC) [address] Social History Tobacco Use [...] or relatives? How often do you attend methodist or 1 to 4 times per year 04/01 hoahaoism services? Do you belong to any clubs or No 04/24/2022 organizations such as methodist groups, unions, fraternal or athletic groups, or [...] encounter Progress Notes Theresa Moreno RN - 07/12/2020 2:22 PM CDT Anticoagulation Clinic - RN INR RESULTS: INR (no units) Date Value 07/12/2020 3.1 DOSE PLAN: 2.5 mg Mon(07/12), Tue(07/13); 5 mg Wed(07/14); 2.5 mg Sondra(07/15/20); Retest INR on Sun07/16/2020 DOSE CHANGE: No maintenance plan NEXT INR: in 4 days on Sun07/16/2020 Left voicemail message for Nurse Mraifer with dosing and next INR retest date. Called Venus human resources office assistant and gave her the INR retest date and the warfarin dosing. [facility] faxed INR results, instructions, and orders to [facility] documented in this encounter Plan of Treatment Not on filedocumented as of this encounter Visit Diagnoses Diagnosis Other pulmonary embolism without acute c or pulmonale, unspecified chronicity (HCC) documented in this encounter Additional Health Concerns Infection Onset Date Last Indicated Resolved Time MSSA 10/04/2018 10/04/2018 06/28/2022 8:27 AM CDT documented as of this encounter Care Teams Web Marketing Assistant Relationship Specialty Start Date End Date Adarsh Carpenter MD PCP - General 05/07/[address] [place] [address] documented as of this encounter
--- OUTSIDE RECORDS SUMMARY | 2022-06-30 08:27 | XMS_ITS | Encounter Summary ---
:1960 Author Organization [facility] Address [address] [place] [address] Care Team Providers Name Role Phone Adarsh Carpenter MD Primary Care Provider Encounter Details Date Type Department Care Team Description 08/03/2020 Anticoagulation - SE Ena Erwin Other pu lmonary Warfarin Visit Anticoag/Internal L., RN embolism without Medicine - Third [address] pulmonale, [address] [place], [place] [address] chronicity (HCC) [address] Social History Tobacco Use [...] encounter Progress Notes Ena Erwin RN - 08/03/2020 4:36 PM CST Anticoagulation Clinic - RN INR RESULTS: INR (no units) Date Value 08/03/2020 2.30 (A) DOSE PLAN: DOSE CHANGE: Increased by 10% (2.5 mg/week) NEXT INR: 1 week; 08/10/20 [facility] faxed INR results, instructions, and orders to [facility]. [facility] provider Jania Ellison APRN, CONTENT ARCHITECT consulted ER TEACHER documented in this encounter Plan of Treatment Not on filedocumented as of this encounter Procedures Procedure Name Priority Date/Time Associated Diagnosis Comme nts PROTIME-INR Routine 08/03/2020 Results for thi s procedure are in the resu lts section. documented in this encounter Results (ABNORMAL) Protime-INR (08/03/2020) P athologist Signature INR 2.30 (A) 0.9 - 1.1 Protime Specimen (Source) Anatomical Location Collection Method / Collectio n Time Received Time / Laterality Volume Blood (Blood, 08/03/2020 Venous) Resulting Agency Comment POC telephone call [facility]: Mar[place] Historical Provider LAB BLOOD ORDERABLES documented in this encounter Visit Diagnoses Diagnosis Other pulmonary embolism without acute c or pulmonale, unspecified chronicity (HCC) documented in this encounter Additional Health Concerns Infection Onset Date Last Indicated Resolved Time MSSA 10/04/2018 10/04/2018 06/28/2022 8:27 AM CDT documented as of this encounter Care Teams Wheel Of Fortune Dealer Relationship Specialty Start Date End Date Adarsh Carpenter MD PCP - General 05/07/[address] [place] [address] documented as of this encounter
--- OUTSIDE RECORDS SUMMARY | 2022-06-30 08:27 | XMS_ITS | Encounter Summary ---
:1960 Author Organization [facility] Address [address] [place] [address] Care Team Providers Name Role Phone Adarsh Carpenter MD Primary Care Provider Encounter Details Date Type Department Care Team Description 07/27/2020 Anticoagulation - SE Terri Spivey Other pul monary Warfarin Visit Anticoag/Internal J, RN embolism without Medicine - Third [address] pulmonale, [address] [place], [place] [address] chronicity (HCC) [address] Social History Tobacco Use [...] 1 to 4 times per year 04/01 latter-day services? Do you belong to any clubs [...] encounter Progress Notes Terri Spivey RN - 07/27/2020 4:53 PM CDT Anticoagulation Clinic - RN Protocol Screening INR RESULTS: INR (no units) Date Value 07/27/2020 2.30 (A) DOSE PLAN: 5 mg every Mon, Wed, Fri; 2.5 mg all other days DOSE CHANGE: Increased by 11.1% (2.5 mg/week) NEXT INR: 08/03/2020 - 1 week VERIFY PREVIOUS DOSE PLAN Verified with [facility] nurse Mercedes MISSED/EXTRA DOSES No MEDICATION CHANGES No DIET OR ALCOHOL CHANGES No, per nurse patient stated that they were consistent of eating greenswith Vit. K three times per week. Nurse state that this is not a new diet for the patient. RECENT ILLNESS/ HOSPITALIZATIONS No ABNORMAL BLEEDING OR BRUISING No FALLS OR INJURIES No NEW PAIN SYMPTOMS No NEW SHORTNESS OF BREATH No NEW NEUROLOGICAL SYMPTOMS No INR results reviewed with the patient nurse Mercedes. She verbalized understanding of anticoagulationdose plan and date of next INR. AVS faxed to [facility]. documented in this encounter Plan of Treatment Not on filedocumented as of this encounter Procedures Procedure Name Priority Date/Time Associated Diagnosis Comme nts PROTIME-INR Routine 07/27/2020 Results for thi s procedure are in the resu lts section. documented in this encounter Results (ABNORMAL) Protime-INR (07/27/2020) athologist Signature INR 2.30 (A) 0.9 - 1.1 [facility] [place] Protime [facility] Specimen (Source) Anatomical Location Collection Method / Collectio n Time Received Time / Laterality Volume Blood (Blood, 07/27/2020 Venous) Resulting Agency Comment [facility] lab Historical Provider LAB BLOOD ORDERABLES Performing Organization Address City/State/ZIP Code Phon e Number [facility] [address] [place] [address] documented in this encounter Visit Diagnoses Diagnosis Other pulmonary embolism without acute c or pulmonale, unspecified chronicity (HCC) documented in this encounter Additional Health Concerns Infection Onset Date Last Indicated Resolved Time MSSA 10/04/2018 10/04/2018 06/28/2022 8:27 AM CDT documented as of this encounter Care Teams Roll Forming Machine Set Up Operator Relationship Specialty Start Date End Date Adarsh Carpenter MD PCP - General 05/07/[address] [place] [address] documented as of this encounter
--- OUTSIDE RECORDS SUMMARY | 2022-06-30 08:27 | XMS_ITS | Encounter Summary ---
:1960 Author Organization [facility] Address [address] [place] [address] Care Team Providers Name Role Phone Adarsh Carpenter MD Primary Care Provider Encounter Details Date Type Department Care Team Description 07/28/2020 Telephone [place] Adarsh Carpenter MD [address] [place], [place] [address] [place], [place] [phone] [address] (Wo rk) Social History Tobacco Use Types [...] documented as of this encounter Care Teams Vertical Punch Operator Relationship Specialty Start Date End Date Adarsh Carpenter MD PCP - General 05/07/[address] [place] [address] documented as of this encounter
--- OUTSIDE RECORDS SUMMARY | 2022-06-30 08:27 | XMS_ITS | Encounter Summary ---
:1960 Author Organization [facility] Address [address] [place] [address] Care Team Providers Name Role Phone Adarsh Carpenter MD Primary Care Provider Reason for Visit Reason Comments [facility] D/C Encounter Details Date Type Department Care Team Description 07/12/2020 Office Visit Adarsh Weaver Generalized abdominal pain ( Primary Dx); [address] MD Hang Flu; [place], [place] [address] Immunization due [phone] [place] [address] Social History Tobacco Use Types Packs/Day Years [...] Sign Reading Time Taken Comments Blood Pressure 134/90 07/12/2020 9:09 AM CDT Pulse 98 07/12/2020 9:09 AM CDT Temperature 36.5 ??C (97.7 ??F) 07/12/2020 9:09 AM CDT Respiratory Rate 18 07/12/2020 9:09 AM CDT Oxygen Saturation 93% 07/12/2020 9:09 AM CDT Inhaled Oxygen Concentration - - Weight - - Height - - Body Mass Index - - documented in this encounter Progress Notes D. Hang Carpenter MD - 07/12/2020 9:20 AM CDT Estab Patient Visit Subjective Patient ID: Dwain Hinds is a 60 y.o. male. HPI the patient is here today for follow-up of recent hospitalization. The patient is our 61-year-old gentleman who has an outstanding history of MS for the previous 20 years or so. Is also had periodic problems with fevers chills and urinary sepsis. Is all improved approximately 2 years ago when he had a bladder stone removed which was felt to be a source of recurrent infections. However approximately 5 days or so ago he started running low-grade temps he went to the [facility] and was admitted for possible urosepsis. He recovered quite well after 2 days and was discharged home he was placed on antibiotic therapy that he is completed at this time. However the actual urine sample did not grow any bacteria there is no blood cultures that were positive source of infection is in question or source of fever is in question. At this point in time he is probably 50 to 75% back to normal he feels that overall he is doing okaymaybe just a little more fatigued than usual. He is not having any headaches no fevers no chills no sore throat no sinus congestion He is not short of breath not coughing no chest pain no palpitations. His appetite is good not thrown up he is probably he is having some problems with constipation decreased bowel movement sometimes every 3rd-4th day. Is also having periodic little cramps or little abdominal discomfort that could be related to being somewhat constipated. Is also leaking little more between catheterization events where his pull- ups/diapers seem to be getting wet maybe a little more than previous. He continues to cath approximately 3-4 times per day and getting 250 cc give her tachycardia with these catheterization procedure the rest of it seems to be just leaking out. There was some concern about decreased urination though he is drinking fluids at breath sounds like a reasonable gradient of 12 to 16 ounces 3 times plus per day. Review of Systems Objective Physical Exam he is alert he appears comfortable answers questions appropriately. Blood pressure 134/90 pulse 98 regular rate and rhythm temp 97.7 O2 sats a little bit low 93% Pupils equal conjunctiva clear Tongue is moist throat is clear Lungs are clear without wheeze rales or rhonchi Cardiac is regular rate and rhythm no heart murmur Abdomen soft not tender no obvious masses or hepatosplenomegaly no guarding no rigidity no rebound no tenderness The urine sample was acquired and was normal because of his history we will do a urine culture as well. Assessment/Plan Diagnoses and all orders for this visit: Generalized abdominal pain - Urine culture (catheter); Future - Urinalysis with reflex microscopic (catheter); Future - Urinalysis with reflex microscopic (catheter); Future - Urine culture (catheter); Future Flu Immunization due - Flu Vaccine 50-64yrs IM Flublok (Egg Free) The overall assessment is nonspecific abdominal pain probably related to or possibly related to constipation. Plan is any of the [id number] medications and initiation of stool softener Colace. documented in this encounter Plan of Treatment Scheduled Orders Name Type Priority Associated Diagnoses Order S chedule Urine culture Microbiology Routine Generalized abdominal 1 Occ urrences (catheter) pain starting 2019 until 1 Urinalysis with Lab Routine Generalized abdominal 1 O ccurrences reflex microscopic pain starting 07/12/2020 (catheter) until 1 documented as of this encounter Results Urine culture (catheter) (07/12/2020 10:45 AM CDT) [facility] Method Time Signature Urine Culture No Growth 07/13/2020 [facility] 12:54 PM CDT [facility] Specimen Anatomical Collection Method Collection Time Receive d Time (Source) Location / / Volume Laterality Urine (Urine, 07/12/2020 10:45 07/13/2020 Catheter) AM CDT 12:52 PM CDT Comment: URINE Narrative [facility] - 07/01 12:54 PM CDT PCN allergy Adarsh Carpenter MD LAB MICROBIOLOGY - GENERAL O RDERABLES Performing Organization Address City/State/ZIP Code Phon e Number [facility] [address] [place] [address] (ABNORMAL) Urinalysis with reflex microscopic (catheter) (07/12/2020 10:45 AM CDT) [facility] Method Time Signature Type CATH 07/12/2020 [facility] 11:13 AM CDT [place] Color, Urine YELLOW YELLOW 07/12/2020 [facility] 11:13 AM CDT [place] Clarity, Urine CLEAR CLEAR 07/12/2020 [facility] 11:13 AM CDT [place] Glucose, Urine NEGATIVE NEGATIVE 07/12/2020 [facility] mg/dL 11:13 AM CDT [place] Bilirubin, NEGATIVE NEGATIVE 07/12/2020 [facility] Urine 11:13 AM CDT [place] Ketones, Urine NEGATIVE NEGATIVE 07/12/2020 [facility] mg/dL 11:13 AM CDT [place] Specific 1.025 1.000 07/12/2020 [facility] [place], Urine ->=1.030 11:13 AM CDT [place] Blood, Urine NEGATIVE NEGATIVE 07/12/2020 [facility] 11:13 AM CDT [place] pH, Urine 6.0 5.0 - 7.0 07/12/2020 [facility] 11:13 AM CDT [place] Protein, Urine NEGATIVE NEGATIVE-TRA 07/12/2020 [facility] mg/dL 11:13 AM CDT [place] Urobilinogen, 2.0 (A) 0.2 - 1.0 07/12/2020 [facility] Urine E.U./dL 11:13 AM CDT [place] Nitrite, Urine NEGATIVE NEGATIVE 07/12/2020 [facility]13 AM [facility] [place] Leukocytes, NEGATIVE NEGATIVE 07/12/2020 [facility] Urine 11:13 AM CDT [place] Specimen Anatomical Collection Method Collection Time Receive d Time (Source) Location / / Volume Laterality Urine (Urine, 07/12/2020 10:45 07/12/2020 Catheter) AM CDT 10:46 AM CDT Adarsh Carpenter MD LAB URINE ORDERABLES Performing Organization Address City/State/ZIP Code Phon e Number [facility] [address] [place] [address] documented in this encounter Visit Diagnoses Diagnosis Generalized abdominal pain - Primary Abdominal pain, generalized Flu Influenza with other respiratory manifes tations Immunization due Other pulmonary embolism without acute c or pulmonale, unspecified chronicity (HCC) Generalized abdominal pain Abdominal pain, generalized documented in this encounter Additional Health Concerns Infection Onset Date Last Indicated Resolved Time MSSA 10/04/2018 10/04/2018 06/28/2022 8:27 AM CDT documented as of this encounter Care Teams Tack Maker Relationship Specialty Start Date End Date Adarsh Carpenter MD PCP - General 05/07/[address] [place] [address] documented as of this encounter
--- OUTSIDE RECORDS SUMMARY | 2022-06-30 08:27 | XMS_ITS | Encounter Summary ---
:1960 Author Organization [facility] Address [address] [place] [address] Care Team Providers Name Role Phone Adarsh Carpenter MD Primary Care Provider Encounter Details Date Type Department Care Team Description 07/23/2020 Telephone [place] Adarsh Carpenter MD [address] [place], [place] [address] [place], [place] [phone] (Wo rk) Social History Tobacco Use Types [...] Notes Telephone Encounter - Patria Freeman - 07/26/2020 7:45 AM CDT Faxed. Telephone Encounter - Sofia Denson RN - 07/23/2020 4:51 PM CDT Please fax paperwork. documented in this encounter Plan of Treatment Not on filedocumented as of this encounter Visit Diagnoses Not on filedocumented in this encounter Additional Health Concerns Infection Onset Date Last Indicated Resolved Time MSSA 10/04/2018 10/04/2018 06/28/2022 8:27 AM CDT documented as of this encounter Care Teams Test Engineer Relationship Specialty Start Date End Date Adarsh Carpenter MD PCP - General 05/07/[address] [place] [address] documented as of this encounter
--- OUTSIDE RECORDS SUMMARY | 2022-06-30 08:27 | XMS_ITS | Encounter Summary ---
:1960 Author Organization [facility] Address [address] [place] [address] Care Team Providers Name Role Phone Adarsh Carpenter MD Primary Care Provider Reason for Visit Reason Onset Date Comments DME 07/21/2020 Encounter Details Date Type Department Care Team Description 07/21/2020 Telephone [place] Adarsh Carpenter MD DME [address] [place], [place] [address] [place], [place] [phone] [address] (Wo rk) Social History Tobacco Use Types [...] 1 to 4 times per year 04/01 anabaptist services? Do you belong to any clubs [...] Telephone Encounter - Sofia Denson RN - 07/28/2020 9:26 AM CDT Miriam from [facility] called back and she said they received everything and they sent it onto [facility]. She will let us know if they need further information. Telephone Encounter - Sofia Denson RN - 07/27/2020 3:33 PM CDT LMTC Telephone Encounter - Sofia Denson RN - 07/26/2020 2:08 PM CDT LMTC with Miriam in [facility]. Telephone Encounter - Patria Freeman - 07/26/2020 9:00 AM CDT Faxed. Telephone Encounter - Sofia Denson RN - 07/26/2020 8:06 AM CDT Please fax the dictation and orders to [facility]. Telephone Encounter - Adarsh Carpenter MD - 07/23/2020 5:25 PM CDT Let me know if my recent dictation via telephone consult satisfies the criteria to get the DME equipment for [facility]v Telephone Encounter - Sofia Denson RN - 07/22/2020 1:29 PM CDT Miriam stated that an addendum would not suffice but a telephone visit discussing the need for these items would. Nelia scheduled a telephone visit for tomorrow at 3:00PM to discuss the needs for DME Telephone Encounter - Adarsh Carpenter MD - 07/21/2020 2:13 PM CDT I have signed the DME form. Put with the rest of Dhruv's paperwork to send once we get confirmation from Trudy Marcaon in regard to a Face to Face or just an addendum to my last note. Thanks. Telephone Encounter - Sofai Denson RN - 07/21/2020 1:[address] Carpenter would like us to call Trudy Marcano ([phone]) at the [facility] to see if thenote from 07/12/20 will suffice if he addends it to discuss his need for the DME supplies, or do they need to schedule him an additional face to face to have this completed. I did LM for Trudy to call us back. Rxs pended for review. documented in this encounter Plan of Treatment Not on filedocumented as of this encounter Visit Diagnoses Diagnosis Multiple sclerosis (HCC) - Primary Multiple sclerosis documented in this encounter Additional Health Concerns Infection Onset Date Last Indicated Resolved Time MSSA 10/04/2018 10/04/2018 06/28/2022 8:27 AM CDT documented as of this encounter Care Teams Construction Cost Estimator Relationship Specialty Start Date End Date Adarsh Carpenter MD PCP - General 05/07/[address] [place] [address] documented as of this encounter
--- OUTSIDE RECORDS SUMMARY | 2022-06-30 08:27 | XMS_ITS | Encounter Summary ---
:1960 Author Organization [facility] Address [address] [place] [address] Care Team Providers Name Role Phone Adarsh Carpenter MD Primary Care Provider Encounter Details Date Type Department Care Team Description 07/12/2020 Lab Bill [place] Other pulmonary embolism wit hout acute cor pulmonale, unspecified chronicity (HCC); [address] Generalized abdominal pain Bill [place] [address] Social History Tobacco Use Types [...] Name Priority Date/Time Associated Diagnosis Comme nts URINALYSIS WITH Routine 07/12/2020 10:45 Generalized Results for this REFLEX MICROSCOPIC AM CDT abdominal pain procedu re are in the results section. URINE CULTURE Routine 07/12/2020 10:45 Generalized Results fo r this AM CDT abdominal pain procedure are in the results section. PROTIME-INR Routine 07/12/2020 9:30 AM Other pulmonary Result s for this CDT embolism without procedure a re in acute cor pulmonale, the res ults unspecified section. chronicity (HCC) documented in this encounter Results Urine culture (catheter) (07/12/2020 10:45 AM CDT) [facility] [employer] Reservations Method Time Signature Urine Culture No Growth 07/13/2020 [place] 12:54 PM CDT [facility] Specimen Anatomical Collection Method Collection Time Receive d Time (Source) Location / / Volume Laterality Urine (Urine, 07/12/2020 10:45 07/13/2020 Catheter) AM CDT 12:52 PM CDT Comment: URINE Narrative [facility] - 07/01 12:54 PM CDT PCN allergy DLatanya Carpenter MD LAB MICROBIOLOGY - GENERAL O RDERABLES Performing Organization Address City/State/ZIP Code Phon e Number [facility] [address] [place] [address] (ABNORMAL) Urinalysis with reflex microscopic (catheter) (07/12/2020 10:45 AM CDT) [employer] Method Time Signature Type CATH 07/12/2020 [facility] 11:13 AM CDT [place] Color, Urine YELLOW YELLOW 07/12/2020 [facility] 11:13 AM CDT [place] Clarity, Urine CLEAR CLEAR 07/12/2020 [facility] 11:13 AM CDT [place] Glucose, Urine NEGATIVE NEGATIVE 07/12/2020 [facility] mg/dL 11:13 AM CDT [place] Bilirubin, NEGATIVE NEGATIVE 07/12/2020 [facility] Urine 11:13 AM CDT [place] Ketones, Urine NEGATIVE NEGATIVE 07/12/2020 [facility] mg/dL 11:13 AM CDT [place] Specific 1.025 1.000 07/12/2020 [facility] [place], Urine ->=1.030 11:13 AM CDT [place] Blood, Urine NEGATIVE NEGATIVE 07/12/2020 [facility] 11:13 AM CDT [place] pH, Urine 6.0 5.0 - 7.0 07/12/2020 [facility] 11:13 AM CDT [place] Protein, Urine NEGATIVE NEGATIVE-TRA 07/12/2020 [facility] CE mg/dL 11:13 AM CDT [place] Urobilinogen, 2.0 (A) 0.2 - 1.0 07/12/2020 [facility] Urine E.U./dL 11:13 AM CDT [place] Nitrite, Urine NEGATIVE NEGATIVE 07/12/2020 [facility] 11:13 AM CDT [place] Leukocytes, NEGATIVE NEGATIVE 07/12/2020 [facility] Urine 11:13 AM CDT [place] Specimen Anatomical Collection Method Collection Time Receive d Time (Source) Location / / Volume Laterality Urine (Urine, 07/12/2020 10:45 07/12/2020 Catheter) AM CDT 10:46 AM CDT D. Hang Carpenter MD LAB URINE ORDERABLES Performing Organization Address City/State/ZIP Code Phon e Number [facility] [address] [place] [address] (ABNORMAL) Protime-INR (07/12/2020 9:30 AM CDT) P athologist Signature Protime 37.2 (H) 10.6 - 12.9 07/12/2020 [facility] 12:59 PM CDT [facility] Comment: . INR 3.1 07/12/2020 12:59 PM CDT [facility] Comment: Suggested INR Therapeutic Ranges* Intensity ?Standard ?Higher ? 2.0-3.0 ? 2.5-3.5 *Target INR should be individualized. Occasionally, INR range 3.0-4.5 may be appropriate. Higher intensity INR: Mechanical heart valve, etc. Specimen Anatomical Collection Method Collection Time Receive d Time (Source) Location / / Volume Laterality Blood (Blood, 07/12/2020 9:30 AM 07/12/20 20 Venous) CDT 12:30 PM CDT Ti Ellison APRN, CNP LAB BLOOD ORDERABLES Performing Organization Address City/State/ZIP Code Phon e Number [facility] [address] [place] [phone] documented in this encounter Visit Diagnoses Diagnosis Other pulmonary embolism without acute c or pulmonale, unspecified chronicity (HCC) Generalized abdominal pain Abdominal pain, generalized documented in this encounter Additional Health Concerns Infection Onset Date Last Indicated Resolved Time MSSA 10/04/2018 10/04/2018 06/28/2022 8:27 AM CDT documented as of this encounter Care Teams Technical Services Coordinator Relationship Specialty Start Date End Date Adarsh Carpenter MD PCP - General 05/07/[address] [place] [address] documented as of this encounter
--- OUTSIDE RECORDS SUMMARY | 2022-06-30 08:27 | XMS_ITS | Encounter Summary ---
:1960 Author Organization [facility] Address [address] [place] [address] Care Team Providers Name Role Phone Adarsh Carpenter MD Primary Care Provider Reason for Visit Reason Comments DME SHOWERCHAIR Encounter Details Date Type Department Care Team Description 07/23/2020 Telemedicine [place] Adarsh Carpenter Multiple sclerosis (HCC) (Pr imary Dx); [address] MD Hang Quadriparesis (HCC) [place], [place] [address] [address] [facility] [address] [place] [address] Social History Tobacco Use Types Packs/Day Years [...] or relatives? How often do you attend christian or 1 to 4 times per year 04/01 yarsanism services? Do you belong to any clubs or No 04/24/2022 organizations such as christian groups, unions, fraternal or athletic groups, or [...] documented as of this encounter Progress Notes DLatanya Carpenter MD - 07/23/2020 3:00 PM CDT Estab Patient Visit Subjective Patient ID: Dwain Hinds is a 60 y.o. male. HPI this is a telephone consultation between myself the patient and the patient's . This consultation by phone was secondary to several reasons including the current COVID-19 pandemic as well as difficulty in transporting the patient secondary to quadriparesis/quadriplegia which is secondary to mul tiple sclerosis. Both the patient and the patient's have given consent for this visit both of them are in a secure position in their home environment no one else is present and they understand that they can be billed for this telephone consultation. The reason primarily for this consultation is that the patient needs to have a akyl-[id number] conversation that deals primarily in his request to have a number of different durable medical equipment to help him function and his to help him better in his daily life. Primarily this is to get him qualified for a ROLLING SHOWER CHAIR that the will be able to use their Victoriano lift to lift him into this rolling shower chair. Once he is in this shower chair she will be able to roll him into the shower area they already have a rubber ramp up and over the ridge or the edge of the shower to get him upand over into the shower. The patient has no use of his lower extremities minimal use of his upper ex tremities does not have any ability to recreational therapy aide or grab things he will not be turning on the shower at all. His will then be able to place him into the shower provides showers and bathing for him without having to be dependent upon an aide that has currently been coming into the home twice a week. This rolling shower chair has a padded seat padded arms and leg rests. Also has the ability to function as a rolling chair to be placed over a toilet such be easier for him to be placed and positioned on the toilet and then moved afterwards. This will add better functional status to his activities of daily living without as much back breaking work as has been previously required of his . This is a win-win situation for all parties involved. Apparently there is a backlog for this type ofshower chair and it may be several months before it delivered but we have to get him approved for sothe process can be started. I can stay quite frankly that all other durable medical equipment that can be acquired to help the patient and his care for him is appropriate for their use at this time. All of the patient's and 's questions were answered. Review of Systems Objective Physical Exam Assessment/Plan Diagnoses and all orders for this visit: Multiple sclerosis (HCC) Quadriparesis (HCC) The overall assessment is multiple sclerosis with quadriparesis/quadriplegia with this being a iqbc-rs-ligg conversation to get him qualified for a rolling shower chair with padded arm rest padded seatas well as foot rest. Any other durable medical equipment that is reasonable to help the patient andhis function and activities of daily living should also be approved by this dictation. Consult time was 15 minutes and all 15 minutes was spent in consultation regarding the above issue. documented in this encounter Plan of Treatment Not on filedocumented as of this encounter Visit Diagnoses Diagnosis Multiple sclerosis (HCC) - Primary Multiple sclerosis Quadriparesis (HCC) Unspecified quadriplegia documented in this encounter Additional Health Concerns Infection Onset Date Last Indicated Resolved Time MSSA 10/04/2018 10/04/2018 06/28/2022 8:27 AM CDT documented as of this encounter Care Teams Well Shooter Relationship Specialty Start Date End Date Adarsh Carpenter MD PCP - General 05/07/[address] [place] [address] documented as of this encounter
--- OUTSIDE RECORDS SUMMARY | 2022-06-30 08:27 | XMS_ITS | Encounter Summary ---
:1960 Author Organization [facility] Address [address] [place] [address] Care Team Providers Name Role Phone Adarsh Carpenter MD Primary Care Provider Encounter Details Date Type Department Care Team Description 07/20/2020 Anticoagulation - SE Ena Erwin Other pu lmonary Warfarin Visit Anticoag/Internal L., RN embolism without Medicine - Third [address] pulmonale, [address] [place], [place] [address] chronicity (HCC) [address] Social History Tobacco Use [...] or relatives? How often do you attend mormonism or 1 to 4 times per year 04/01 church services? Do you belong to any clubs or No 04/24/2022 organizations such as mormonism groups, unions, fraternal or athletic groups, or [...] encounter Progress Notes Ena Erwin RN - 07/20/2020 4:54 PM CDT Anticoagulation Clinic - RN INR RESULTS: INR (no units) Date Value 07/20/2020 2.70 (A) DOSE PLAN: 5 mg every Mon, Fri; 2.5 mg all other days DOSE CHANGE: [facility] unable to return same this week on 07/23/20, trying to establish adosing plan NEXT INR: 1 week; 07/27/20 [facility] faxed INR results, instructions, and orders to [facility]. ACC provider Renetta Watson APRN, BIOCHEMICAL DEVELOPMENT ENGINEER consulted documented in this encounter Plan of Treatment Not on filedocumented as of this encounter Procedures Procedure Name Priority Date/Time Associated Diagnosis Comme nts PROTIME-INR Routine 07/20/2020 Results for thi s procedure are in the resu lts section. documented in this encounter Results (ABNORMAL) Protime-INR (07/20/2020) P athologist Signature INR 2.70 (A) 0.9 - 1.1 Protime Specimen (Source) Anatomical Location Collection Method / Collectio n Time Received Time / Laterality Volume Blood (Blood, 07/20/2020 Venous) Resulting Agency Comment POC telephone call [facility]: Maritza Munoz Historical Provider LAB BLOOD ORDERABLES documented in this encounter Visit Diagnoses Diagnosis Other pulmonary embolism without acute c or pulmonale, unspecified chronicity (HCC) documented in this encounter Additional Health Concerns Infection Onset Date Last Indicated Resolved Time MSSA 10/04/2018 10/04/2018 06/28/2022 8:27 AM CDT documented as of this encounter Care Teams Supervisor Aluminum Boat Assembly Relationship Specialty Start Date End Date Adarsh Carpenter MD PCP - General 05/07/[address] [place] [address] documented as of this encounter
--- OUTSIDE RECORDS SUMMARY | 2022-06-30 08:28 | XMS_ITS | Encounter Summary ---
:1960 Author Organization [facility] Address [address] [place] [address] Care Team Providers Name Role Phone Adarsh Carpenter MD Primary Care Provider Reason for Visit Reason Onset Date Comments INR results 04/28/2020 Encounter Details Date Type Department Care Team Description 04/28/2020 Telephone [place] Adarsh Carpenter MD INR results [address] [place], [place] [address] [place], [place] [phone] (Wo rk) Social History Tobacco Use Types [...] Telephone Encounter - Adarsh Carpenter MD - 04/28/2020 12:38 PM CDT I called [facility] INR clinic and they will handle. Telephone Encounter - Veronica Glez - 04/28/2020 12:21 PM CDT Vannessa with [facility] called with an INR result of 3.2. Call Vannessa at [phone] as necessary. documented in this encounter Plan of Treatment Not on filedocumented as of this encounter Visit Diagnoses Not on filedocumented in this encounter Additional Health Concerns Infection Onset Date Last Indicated Resolved Time MSSA 10/04/2018 10/04/2018 06/28/2022 8:27 AM CDT documented as of this encounter Care Teams Kettle Operator Relationship Specialty Start Date End Date Adarsh Carpenter MD PCP - General 05/07/[address] [place] [address] documented as of this encounter
--- OUTSIDE RECORDS SUMMARY | 2022-06-30 08:28 | XMS_ITS | Encounter Summary ---
:1960 Author Organization [facility] Address [address] [place] [address] Care Team Providers Name Role Phone Adarsh Carpenter MD Primary Care Provider Encounter Details Date Type Department Care Team Description 12/17/2019 Anticoagulation - SE Yuki Gudino, Other pu lmonary Warfarin Visit Anticoag/Internal RN embolism without Medicine - Third [address] pulmonale, [address] [place], [place] [address] chronicity (HCC) [address] Social History Tobacco Use [...] Assigned at Date Recorded Not on file COVID-19 Exposure Response Date Recorded In the last month, have you been in contact with No / Unsure 12/17/2019 9:15 AM CDT someone who was confirmed or suspected to have Coronavirus / COVID-19? documented as of this encounter Progress Notes Yuki Gudino RN - 12/17/2019 1:54 PM CDT Anticoagulation Clinic - RN INR RESULTS: INR (no units) Date Value 12/17/2019 3.2 DOSE PLAN: 5 mg every MWF; 2.5 mg all other days DOSE CHANGE: No change NEXT INR: 12/31/19 Left detailed phone message regarding INR results, anticoagulation dose plan, and when to recheck INR. Instructions left to call with any questions or concerns. documented in this encounter Plan of Treatment Not on filedocumented as of this encounter Results (ABNORMAL) Protime-INR (12/31/2019 9:12 AM CDT) athologist Signature Protime 26.3 (H) 10.6 - 12.9 12/31/2019 [place] [facility] 1:33 PM CDT [facility] Comment: . INR 2.2 12/31/2019 1:33 PM CDT [facility] Comment: Suggested INR Therapeutic Ranges* Intensity ?Standard ?Higher ? 2.0-3.0 ? 2.5-3.5 *Target INR should be individualized. Occasionally, INR range 3.0-4.5 may be appropriate. Higher intensity INR: Mechanical heart valve, etc. Specimen Anatomical Collection Method Collection Time Receive d Time (Source) Location / / Volume Laterality Blood (Blood, 12/31/2019 9:12 AM 12/31/19 20 Venous) CDT 12:26 PM CDT Jodi Gee APRN, B[facility] LAB BLOOD ORDERABLES Performing Organization Address City/State/ZIP Code Phon e Number [facility] [address] [place] [phone] documented in this encounter Visit Diagnoses Diagnosis Other pulmonary embolism without acute c or pulmonale, unspecified chronicity (HCC) documented in this encounter Additional Health Concerns Infection Onset Date Last Indicated Resolved Time MSSA 10/04/2018 10/04/2018 06/28/2022 8:27 AM CDT documented as of this encounter Care Teams Heading Pinner Relationship Specialty Start Date End Date Adarsh Carpenter MD PCP - General 05/07/[address] [place] [address] documented as of this encounter
--- OUTSIDE RECORDS SUMMARY | 2022-06-30 08:28 | XMS_ITS | Encounter Summary ---
:1960 Author Organization [facility] Address [address] [place] [address] Care Team Providers Name Role Phone Adarsh Carpenter MD Primary Care Provider Encounter Details Date Type Department Care Team Description 05/11/2020 Anticoagulation - SE Terri Spivey Other pul monary Warfarin Visit Anticoag/Internal J, RN embolism without Medicine - Third [address] pulmonale, [address] [place], [place] [address] chronicity (HCC) [address] Social History Tobacco Use [...] encounter Progress Notes Terri Spivey RN - 05/11/2020 11:50 AM CDT Anticoagulation Clinic - RN Protocol Screening INR RESULTS: INR (no units) Date Value 05/11/2020 1.80 (A) DOSE PLAN: 2.5 mg every Sun, Sun, Sun; 5 mg all other days DOSE CHANGE: Increased by 10% (2.5 mg/week) NEXT INR: 05/18/2020 - 1 week VERIFY PREVIOUS DOSE PLAN Verified with Marifer MISSED/EXTRA DOSES No MEDICATION CHANGES No DIET OR ALCOHOL CHANGES Yes, per Marifer, pt. told her that he ate more green beans and other vegetables last week RECENT ILLNESS/ HOSPITALIZATIONS No ABNORMAL BLEEDING OR BRUISING No FALLS OR INJURIES No NEW PAIN SYMPTOMS No NEW SHORTNESS OF BREATH No NEW NEUROLOGICAL SYMPTOMS No INR results reviewed with Marifer. Verbalized understanding of anticoagulation dose plan and next INR. AVS faxed to [facility]. documented in this encounter Plan of Treatment Not on filedocumented as of this encounter Procedures Procedure Name Priority Date/Time Associated Diagnosis Comme nts PROTIME-INR Routine 05/11/2020 Results for thi s procedure are in the resu lts section. documented in this encounter Results (ABNORMAL) Protime-INR (05/11/2020) P athologist Signature INR 1.80 (A) 0.9 - 1.1 [facility] Protime [facility] Specimen (Source) Anatomical Location Collection Method / Collectio n Time Received Time / Laterality Volume Blood (Blood, 05/11/2020 Venous) Resulting Agency Comment [facility] - POC Historical Provider MD LAB BLOOD ORDERABLES Performing Organization Address City/State/ZIP Code Phon e Number [facility] [address] [place] [address] documented in this encounter Visit Diagnoses Diagnosis Other pulmonary embolism without acute c or pulmonale, unspecified chronicity (HCC) documented in this encounter Additional Health Concerns Infection Onset Date Last Indicated Resolved Time MSSA 10/04/2018 10/04/2018 06/28/2022 8:27 AM CDT documented as of this encounter Care Teams Calender Roll Press Operator Relationship Specialty Start Date End Date Adarsh Caprenter MD PCP - General 05/07/[address] [place] [address] documented as of this encounter
--- OUTSIDE RECORDS SUMMARY | 2022-06-30 08:28 | XMS_ITS | Encounter Summary ---
:1960 Author Organization [facility] Address [address] [place] [address] Care Team Providers Name Role Phone Adarsh Carpenter MD Primary Care Provider Encounter Details Date Type Department Care Team Description 12/31/2019 Travel Social History Tobacco Use Types Packs/Day Years [...] been in contact with No / Unsure 12/31/2019 9:07 AM CDT someone who was confirmed or suspected to have Coronavirus / COVID-19? documented as of this encounter Plan of Treatment Not on filedocumented as of this encounter Visit Diagnoses Not on filedocumented in this encounter Additional Health Concerns Infection Onset Date Last Indicated Resolved Time MSSA 10/04/2018 10/04/2018 06/28/2022 8:27 AM CDT documented as of this encounter Care Teams Ferruler Relationship Specialty Start Date End Date Adarsh Carpenter MD PCP - General 05/07/[address] [place] [address] documented as of this encounter
--- OUTSIDE RECORDS SUMMARY | 2022-06-30 08:28 | XMS_ITS | Encounter Summary ---
:1960 Author Organization [facility] Address [address] [place] [address] Care Team Providers Name Role Phone Adarsh Carpenter MD Primary Care Provider Encounter Details Date Type Department Care Team Description 03/30/2020 Anticoagulation - SE Ena Erwin Other pu lmonary Warfarin Visit Anticoag/Internal L., RN embolism without Medicine - Third [address] pulmonale, [address] [place], [place] [address] chronicity (HCC) [address] Social History Tobacco Use [...] encounter Progress Notes Ena Erwin RN - 03/30/2020 11:10 AM CDT Anticoagulation Clinic - RN INR RESULTS: INR (no units) Date Value 03/30/2020 2.10 (A) DOSE PLAN: 2.5 mg every e, Sondra, Sat; 5 mg all other days DOSE CHANGE: Decreased by 10% (2.5 mg/week) NEXT INR: 2 weeks; 04/13/20 [facility] faxed INR results, instructions, and orders to [facility]. documented in this encounter Plan of Treatment Not on filedocumented as of this encounter Procedures Procedure Name Priority Date/Time Associated Diagnosis Comme nts PROTIME-INR Routine 03/30/2020 Results for thi s procedure are in the resu lts section. documented in this encounter Results (ABNORMAL) Protime-INR (03/30/2020) P athologist Signature INR 2.10 (A) 0.9 - 1.1 Protime Specimen (Source) Anatomical Location Collection Method / Collectio n Time Received Time / Laterality Volume Blood (Blood, 03/30/2020 Venous) Resulting Agency Comment Telephone call [facility]: Harsha lerner Historical Provider MD LAB BLOOD ORDERABLES documented in this encounter Visit Diagnoses Diagnosis Other pulmonary embolism without acute c or pulmonale, unspecified chronicity (HCC) documented in this encounter Additional Health Concerns Infection Onset Date Last Indicated Resolved Time MSSA 10/04/2018 10/04/2018 06/28/2022 8:27 AM CDT documented as of this encounter Care Teams Solar Pool Heating Installer Relationship Specialty Start Date End Date Adarsh Carpenter MD PCP - General 05/07/[address] [place] [address] documented as of this encounter
--- OUTSIDE RECORDS SUMMARY | 2022-06-30 08:28 | XMS_ITS | Encounter Summary ---
:1960 Author Organization [facility] Address [address] [place] [address] Care Team Providers Name Role Phone Adarsh Carpenter MD Primary Care Provider Encounter Details Date Type Department Care Team Description 06/01/2020 Anticoagulation - SE Ena Erwin Other pu lmonary Warfarin Visit Anticoag/Internal L., RN embolism without Medicine - Third [address] pulmonale, [address] [place], [place] [address] chronicity (HCC) [address] Social History Tobacco Use [...] encounter Progress Notes Ena Erwin RN - 06/01/2020 2:08 PM CDT Anticoagulation Clinic - RN INR RESULTS: INR (no units) Date Value 06/01/2020 2.70 (A) DOSE PLAN: 5 mg Mon, Wed, Fri; 2.5 mg all other days DOSE CHANGE: No change NEXT INR: 2 weeks; 06/15/20 [facility] faxed INR results, instructions, and orders to [facility]. documented in this encounter Plan of Treatment Not on filedocumented as of this encounter Procedures Procedure Name Priority Date/Time Associated Diagnosis Comme nts PROTIME-INR Routine 06/01/2020 Results for thi s procedure are in the resu lts section. documented in this encounter Results (ABNORMAL) Protime-INR (06/01/2020) P athologist Signature INR 2.70 (A) 0.9 - 1.1 Protime Specimen (Source) Anatomical Location Collection Method / Collectio n Time Received Time / Laterality Volume Blood (Blood, 06/01/2020 Venous) Resulting Agency Comment POC telephone call [facility]: Marifer eaton Historical Provider LAB BLOOD ORDERABLES documented in this encounter Visit Diagnoses Diagnosis Other pulmonary embolism without acute c or pulmonale, unspecified chronicity (HCC) documented in this encounter Additional Health Concerns Infection Onset Date Last Indicated Resolved Time MSSA 10/04/2018 10/04/2018 06/28/2022 8:27 AM CDT documented as of this encounter Care Teams Maintenance Pipefitter Relationship Specialty Start Date End Date Adarsh Carpenter MD PCP - General 05/07/[address] [place] [address] documented as of this encounter
--- OUTSIDE RECORDS SUMMARY | 2022-06-30 08:28 | XMS_ITS | Encounter Summary ---
:1960 Author Organization [facility] Address [address] [place] [address] Care Team Providers Name Role Phone Adarsh Carpenter MD Primary Care Provider Reason for Visit Reason Onset Date Comments Rx for new wheelchair cushion 03/19/2020 Encounter Details Date Type Department Care Team Description 03/19/2020 [place]phone [place] Rx for new wheelchair [address] MD Hang cushion [place], [place] [address] [address] [place] [phone] [place] [address] Social History Tobacco Use Types Packs/Day Years [...] Telephone Encounter - Sofia Denson RN - 03/22/2020 9:01 AM CDT Nelia informed. Telephone Encounter - Veronica Glez - 03/19/2020 4:56 PM CDT Rx faxed to [facility] in [place] as requested. Telephone Encounter - Sofia Denson RN - 03/19/2020 4:40 PM CDT Please fax order along with face sheet to the number provided. Telephone Encounter - Adarsh Carpenter MD - 03/19/2020 4:31 PM CDT I have printed and signed the order you may fax. Telephone Encounter - Sofia Denson RN - 03/19/2020 3:22 PM CDT [facility] stated that insurance may only pay for one every 5 years, his last cushion was in 2018. Nelia stated that this is worn. [facility] suggested that we send a new Rx and they will see if insurance will cover it. Nelia aware he may need a new face to face as his last visit was 08/2019. Please sign order and we will fax to [facility] at [phone] Telephone Encounter - Veronica Amaris - 03/19/2020 11:51 AM CDT Pt's Nelia called stating a prescription for a new wheelchair cushion needs to be faxed to [facility] in [place] at [phone]. Please call Nelia at [phone] with any questions. documented in this encounter Plan of Treatment Not on filedocumented as of this encounter Visit Diagnoses Diagnosis MS (multiple sclerosis) (HCC) - Primary Multiple sclerosis documented in this encounter Additional Health Concerns Infection Onset Date Last Indicated Resolved Time MSSA 10/04/2018 10/04/2018 06/28/2022 8:27 AM CDT documented as of this encounter Care Teams Laborer Livestock Relationship Specialty Start Date End Date Adarsh Carpenter MD PCP - General 05/07/[address] [place] [address] documented as of this encounter
--- OUTSIDE RECORDS SUMMARY | 2022-06-30 08:28 | XMS_ITS | Encounter Summary ---
:1960 Author Organization [facility] Address [address] [place] [address] Care Team Providers Name Role Phone Adarsh Carpenter MD Primary Care Provider Encounter Details Date Type Department Care Team Description 06/15/2020 Anticoagulation - SE Terri Spivey Other pul monary Warfarin Visit Anticoag/Internal J, RN embolism without Medicine - Third [address] pulmonale, [address] [place], [place] [address] chronicity (HCC) [address] Social History Tobacco Use [...] encounter Progress Notes Terri Spivey RN - 06/15/2020 1:23 PM CDT Anticoagulation Clinic - RN Protocol Screening INR RESULTS: INR (no units) Date Value 06/15/2020 1.80 (A) DOSE PLAN: DOSE CHANGE: Increased by 10% (2.5 mg/week) NEXT INR: 06/29/2020 - 2 weeks VERIFY PREVIOUS DOSE PLAN Verified with patient nurse Zak MISSED/EXTRA DOSES No MEDICATION CHANGES No DIET OR ALCOHOL CHANGES No RECENT ILLNESS/ HOSPITALIZATIONS No ABNORMAL BLEEDING OR BRUISING No FALLS OR INJURIES No NEW PAIN SYMPTOMS No NEW SHORTNESS OF BREATH No NEW NEUROLOGICAL SYMPTOMS No INR results reviewed with the patient. Patient verbalized understanding of anticoagulation dose planand date of next INR. AVS faxed to [facility]. documented in this encounter Plan of Treatment Not on filedocumented as of this encounter Procedures Procedure Name Priority Date/Time Associated Diagnosis Comme nts PROTIME-INR Routine 06/15/2020 Results for thi s procedure are in the resu lts section. documented in this encounter Results (ABNORMAL) Protime-INR (06/15/2020) P athologist Signature INR 1.80 (A) 0.9 - 1.1 [facility] adRise Protime [facility] adRise Specimen (Source) Anatomical Location Collection Method / Collectio n Time Received Time / Laterality Volume Blood (Blood, 06/15/2020 Venous) Resulting Agency Comment [facility] - POC Historical Provider LAB BLOOD ORDERABLES Performing Organization Address City/State/ZIP Code Phon e Number [facility]ILL [facility] [address] [place] [address] documented in this encounter Visit Diagnoses Diagnosis Other pulmonary embolism without acute c or pulmonale, unspecified chronicity (HCC) documented in this encounter Additional Health Concerns Infection Onset Date Last Indicated Resolved Time MSSA 10/04/2018 10/04/2018 06/28/2022 8:27 AM CDT documented as of this encounter Care Teams Rubber Engraver Relationship Specialty Start Date End Date Adarsh Carpenter MD PCP - General 05/07/[address] [place] [address] documented as of this encounter
--- OUTSIDE RECORDS SUMMARY | 2022-06-30 08:28 | XMS_ITS | Encounter Summary ---
:[address] [facility] Address [address] [place] [address] Care Team Providers Name Role Phone Adarsh Carpenter MD Primary Care Provider Encounter Details Date Type Department Care Team Description 12/05/2019 Anticoagulation - SE Jodi Gee Other p ulmonary Warfarin Visit Anticoag/Internal N., BLOCKER AND POLISHER GOLD WHEEL, BLOW TORCH BURNER embolism without Medicine - Third [address] pulmonale, [address] [place], [place] [address] chronicity ([facility]) [facility] [phone] Social History Tobacco Use Types Packs/Day Years [...] documented as of this encounter Progress Notes Jodi Gee APRN, CNP - 12/05/2019 6:39 PM CST INR: 2.0 Dose: 5 mg every Mon, Wed, Fri; 2.5 mg all other days (increase 11.1%) Recheck date: 12/16/19 ACC spoke with patient and Nelia regarding INR results. Patient denied missed doses, changes in medications, health or diet. Instructions given for patient to increase warfarin as described above and recheck INR on 12/16/19. Patient and verbalized understanding. AVS mailed. T MAKER documented in this encounter Plan of Treatment Not on filedocumented as of this encounter Results (ABNORMAL) Protime-INR (12/17/2019 9:23 AM CDT) athologist Signature Protime 38.2 (H) 10.6 - 12.9 12/17/2019 [facility] 1:37 PM CDT [facility] Comment: . INR 3.2 12/17/2019 1:37 PM CDT [facility] Comment: Suggested INR Therapeutic Ranges* Intensity ?Standard ?Higher ? 2.0-3.0 ? 2.5-3.5 *Target INR should be individualized. Occasionally, INR range 3.0-4.5 may be appropriate. Higher intensity INR: Mechanical heart valve, etc. Specimen Anatomical Collection Method Collection Time Receive d Time (Source) Location / / Volume Laterality Blood (Blood, 12/17/2019 9:23 AM 12/17/19 20 Venous) CDT 12:44 PM CDT Jodi Gee APRN, BLOW TORCH BURNER LAB BLOOD ORDERABLES Performing Organization Address City/State/ZIP Code Phon e Number [facility] [address] [place] [address] documented in this encounter Visit Diagnoses Diagnosis Other pulmonary embolism without acute c or pulmonale, unspecified chronicity (HCC) documented in this encounter Additional Health Concerns Infection Onset Date Last Indicated Resolved Time MSSA 10/04/2018 10/04/2018 06/28/2022 8:27 AM CDT documented as of this encounter Care Teams Director Metabolism Relationship Specialty Start Date End Date Adarsh Carpenter MD PCP - General 05/07/[address] [place] [address] documented as of this encounter
--- OUTSIDE RECORDS SUMMARY | 2022-06-30 08:28 | XMS_ITS | Encounter Summary ---
:1960 Author Organization [facility] Address [address] [place] [address] Care Team Providers Name Role Phone Adarsh Carpenter MD Primary Care Provider Reason for Visit Reason Comments Home Care Services Evaluation [facility] Encounter Details Date Type Department Care Team Description 01/19/2020 Telemedicine [place] Adarsh Carpenter MS (multiple sclerosis) (HCC ) (Primary Dx); [address] MD Hang Coagulation disorder (HCC) [place], [place] [phone] [facility] [address] [place] [address] Social History Tobacco Use Types Packs/Day Years [...] place to sleep or slept in a retirement (including now)? Sex Assigned at Date Recorded Not on file COVID-19 Exposure Response Date Recorded In the last month, have you been in contact with No / Unsure 12/31/2019 9:07 AM CDT someone who was confirmed or suspected to have Coronavirus / COVID-19? documented as of this encounter Progress Notes Adarsh Carpenter MD - 01/19/2020 9:20 AM CDT Telephone Visit Subjective Patient ID: Dwain Hinds is a 59 y.o. male. HPI this is a telephone consult between myself the patient and the patient's . The patient and his understand that this is a telephone consultation without direct visualization on either libertarian. There are no vital signs no direct interaction other than by voice and no [id number] testing or assessments could be done. This is all due secondary to the pandemic. Both the patient and his feel that they are in a secure location and agreed to this consultation by phone. The reason for the consultation is that the patient needs to be qualified for home health to come into basically do his INR testing during this current pandemic. The reason for the testing at home is to help decrease his risk for contacting coronavirus given this current set of circumstances. Becauseof his underlying multiple sclerosis he is at significant risk if he were to catch this virus. The patient last had home health last year after a surgical procedure done in June. Home healthcame out through the end of August and then there was nothing further for them to do. 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 To help keep him from being exposed to the coronavirus having him get INR testing in the home setting would be safer for him at this time. The reason for the INR testing is he is on long-term Coumadin therapy secondary to a history ofDVT and pulmonary embolus which is secondary to his immobility secondary to his multiple sclerosis. The appropriate contact numbers are as follows Home health agency [facility] Mercedes is the automotive parts counter person at her office number is [phone] and her cell phone number is [phone]. We will contact [facility] coagulation team and have them contact Mercedes to have them go ahead and get set up for at home INR testing. Once the pandemic has passed the patient will probably resume getting his INRs taken at our clinic but we do not know precisely when that will be. Review of Systems Objective Physical Exam Assessment/Plan Diagnoses and all orders for this visit: MS (multiple sclerosis) (HCC) Coagulation disorder (HCC) The assessment is as stated below for combination of MS anticoagulation disorder. Consult time was 15 minutes and all 15 minutes was spent in discussion with the patient and his wifethe current pandemic his current needs and coordination of cares. documented in this encounter Plan of Treatment Not on filedocumented as of this encounter Visit Diagnoses Diagnosis MS (multiple sclerosis) (HCC) - Primary Multiple sclerosis Coagulation disorder (HCC) Other and unspecified coagulation defect s documented in this encounter Additional Health Concerns Infection Onset Date Last Indicated Resolved Time MSSA 10/04/2018 10/04/2018 06/28/2022 8:27 AM CDT documented as of this encounter Care Teams Mathematics Department Chair Relationship Specialty Start Date End Date Adarsh Carpenter MD PCP - General 05/07/[address] [place] [address] documented as of this encounter
--- OUTSIDE RECORDS SUMMARY | 2022-06-30 08:28 | XMS_ITS | Encounter Summary ---
:1960 Author Organization [facility] Address [address] [place] [address] Care Team Providers Name Role Phone Adarsh Carpenter MD Primary Care Provider Encounter Details Date Type Department Care Team Description 03/02/2020 Anticoagulation - SE Agrimson, Other pulm onary Warfarin Visit Anticoag/Internal Salina Strong RN embolism without Medicine - Third [address] pulmonale, [address] [place], [place] [address] chronicity (HCC) [address] Social History Tobacco Use [...] documented as of this encounter Progress Notes Salina Pratt RN - 03/02/2020 3:53 PM CDT Anticoagulation Clinic - RN INR RESULTS: INR (no units) Date Value 03/02/2020 2.80 (A) DOSE PLAN: 5 mg every MWF, 2.5 mg all other days DOSE CHANGE: No change NEXT INR: 4 weeks, 03/30/2020 ACC faxed INR results, instructions, and orders to [facility]. documented in this encounter Plan of Treatment Not on filedocumented as of this encounter Procedures Procedure Name Priority Date/Time Associated Diagnosis Comme nts PROTIME-INR Routine 03/02/2020 Results for thi s procedure are in the resu lts section. documented in this encounter Results (ABNORMAL) Protime-INR (03/02/2020) P athologist Signature INR 2.80 (A) 0.9 - 1.1 [facility] Foodyn Protime [facility] DrinkSendo Specimen (Source) Anatomical Location Collection Method / Collectio n Time Received Time / Laterality Volume Blood (Blood, 03/02/2020 Venous) Resulting Agency Comment INR-POC results called to ACC by pt's No [facility] nurse Historical Provider LAB BLOOD ORDERABLES Performing Organization Address City/State/ZIP Code Phon e Number [facility] [employer] [address] [place] [address] documented in this encounter Visit Diagnoses Diagnosis Other pulmonary embolism without acute c or pulmonale, unspecified chronicity (HCC) documented in this encounter Additional Health Concerns Infection Onset Date Last Indicated Resolved Time MSSA 10/04/2018 10/04/2018 06/28/2022 8:27 AM CDT documented as of this encounter Care Teams Real Estate Consultant Relationship Specialty Start Date End Date Adarsh Carpenter MD PCP - General 05/07/[address] [place] [address] documented as of this encounter
--- OUTSIDE RECORDS SUMMARY | 2022-06-30 08:28 | XMS_ITS | Encounter Summary ---
:1960 Author Organization [facility] Address [address] [place] [address] Care Team Providers Name Role Phone Adarsh Carpenter MD Primary Care Provider Reason for Visit Reason Onset Date Comments dme hand grabber 12/31/2019 Encounter Details Date Type Department Care Team Description 12/31/2019 Telephone [place] Leah Mitchell dme hand grabber [address] [place], [place] [address] [place], [place] [phone] [address] Social History Tobacco Use Types Packs/Day Years [...] / COVID-19? documented as of this encounter Miscellaneous Notes Telephone Encounter - Patria Freeman - 12/31/2019 10:43 AM CDT Faxed. Telephone Encounter - Vidhya Bain LPN - 12/31/2019 10:24 AM CDT Please fax DME Telephone Encounter - Adarsh Carpenter MD - 12/31/2019 9:43 AM CDT Form printed and signed Telephone Encounter - Leah Mitchell - 12/31/2019 9:16 AM CDT DME pending for [facility] for patient to receive a reach slip sheeter, Please sign and return to nurse documented in this encounter Plan of Treatment Not on filedocumented as of this encounter Visit Diagnoses Diagnosis Paraplegia (HCC) - Primary Paraplegia Multiple sclerosis (HCC) Multiple sclerosis documented in this encounter Additional Health Concerns Infection Onset Date Last Indicated Resolved Time MSSA 10/04/2018 10/04/2018 06/28/2022 8:27 AM CDT documented as of this encounter Care Teams Electrical Timing Device Calibrator Relationship Specialty Start Date End Date Adarsh Carpenter MD PCP - General 05/07/[address] [place] [address] documented as of this encounter
--- OUTSIDE RECORDS SUMMARY | 2022-06-30 08:28 | XMS_ITS | Encounter Summary ---
:1960 Author Organization [facility] Address [address] [place] [address] Care Team Providers Name Role Phone Adarsh Carpenter MD Primary Care Provider Encounter Details Date Type Department Care Team Description 05/25/2020 Anticoagulation - SE Josh, Other pulm onary Warfarin Visit Anticoag/Internal ROBERT Cardenas embolism without Medicine - Third [address] pulmonale, [address] [place], [place] [address] chronicity (HCC) [address] Social History Tobacco Use [...] or relatives? How often do you attend holiness or 1 to 4 times per year 04/01 christian services? Do you belong to any clubs or No 04/24/2022 organizations such as holiness groups, unions, fraternal or athletic groups, or [...] encounter Progress Notes Theresa Moreno RN - 05/25/2020 11:55 AM CDT Anticoagulation Clinic - RN INR RESULTS: INR (no units) Date Value 05/18/2020 3.30 (A) DOSE PLAN: 5 mg Mon, Wed, Fri; 2.5 mg all other days DOSE CHANGE: Decreased by 9.1% (2.5 mg/week) NEXT INR: in 1 week on Sun06/01/2020 Spoke to nurse Boss instructed her to monitor Pt for bleeding/bruising and to call ACC with questions Instructed to eat greens ACC faxed INR results, instructions, and orders to [facility]. documented in this encounter Plan of Treatment Not on filedocumented as of this encounter Procedures Procedure Name Priority Date/Time Associated Diagnosis Comme nts PROTIME-INR Routine 05/25/2020 Results for thi s procedure are in the resu lts section. documented in this encounter Results (ABNORMAL) Protime-INR (05/25/2020) P athologist Signature INR 3.30 (A) 0.9 - 1.1 [facility] POINT OF CARE TESTING Protime [facility] POINT OF CARE TESTING Specimen (Source) Anatomical Location Collection Method / Collectio n Time Received Time / Laterality Volume Blood (Blood, 05/25/2020 Venous) Resulting Agency Comment INR POC [facility] Karyn Nurse called Historical Provider LAB BLOOD ORDERABLES Performing Organization [...] documented as of this encounter Care Teams Histology Teacher Relationship Specialty Start Date End Date Adarsh Carpenter MD PCP - General 05/07/[address] [place] [address] documented as of this encounter
--- OUTSIDE RECORDS SUMMARY | 2022-06-30 08:28 | XMS_ITS | Encounter Summary ---
:[address] [facility] Address [address] [place] [address] Care Team Providers Name Role Phone Adarsh Carpenter MD Primary Care Provider Reason for Visit Reason Comments Med Refill Encounter Details Date Type Department Care Team Description 03/04/2020 Refill [place] Adarsh Carepnter, Detrusor instability [address] [place], [place] [address] [phone] [place] [address] (Wo rk) Social History Tobacco Use Types [...] or relatives? How often do you attend orthodox or 1 to 4 times per year 04/01 faith services? Do you belong to any clubs or No 04/24/2022 organizations such as orthodox groups, unions, fraternal or athletic groups, [...] this encounter Miscellaneous Notes Telephone Encounter - Carmen Parry RN - 03/08/2020 4:34 PM CDT Please advise on refill Telephone Encounter - Audra Loo LPN - 03/08/2020 3:44 PM CDT Last visit in provider department: 01/19/2020 Last visit requested medication was discussed: not discussed in the last year Upcoming appointment with provider: Visit date not found Last Rx: 01/08/2019 # 180, 3 refills Requested Prescriptions Pending Prescriptions Disp Refills ??? oxybutynin (DITROPAN) 5 MG tablet [Pharmacy Med Name: OXYBUTYNIN CHLORIDE 5MG TABS] 180 tablet 3 Sig: TAKE ONE TABLET BY MOUTH TWICE A DAY Telephone Encounter - Viri Crenshaw - 03/08/2020 3:32 PM CDT Nelia () called to see if patient's Oxybutynin was sent to the pharmacy. states that patient is out of medication. Please send to [facility] pharmacy. If have questions call [phone]. 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
--- OUTSIDE RECORDS SUMMARY | 2022-06-30 08:28 | XMS_ITS | Encounter Summary ---
:1960 Author Organization [facility] Address [address] [place] [address] Care Team Providers Name Role Phone Adarsh Carpenter MD Primary Care Provider Encounter Details Date Type Department Care Team Description 05/18/2020 Anticoagulation - SE Ena Erwin Other pu lmonary Warfarin Visit Anticoag/Internal L., RN embolism without Medicine - Third [address] pulmonale, [address] [place], [place] [address] chronicity (HCC) [address] Social History Tobacco Use [...] encounter Progress Notes Ena Erwin RN - 05/18/2020 11:31 AM CDT Anticoagulation Clinic - RN INR RESULTS: INR (no units) Date Value 05/18/2020 3.30 (A) DOSE PLAN: 2.5 mg every Sun, Sun, Sun; 5 mg all other days DOSE CHANGE: No change NEXT INR: 1 week; 05/25/20 Marifer Nurse from [facility] reported that patient is not consistent in his diet with greens intake. This week he ate less greens and last week he ate more. These were the only findings that changed with the patient. [facility] recommended to increase greens this week a little bit and to be consistent on greens intake. ACCmailing a copy of Vitamin K rich food guide to patient. [facility] faxed INR results, instructions, and orders to [facility]. documented in this encounter Plan of Treatment Not on filedocumented as of this encounter Procedures Procedure Name Priority Date/Time Associated Diagnosis Comme nts PROTIME-INR Routine 05/18/2020 Results for thi s procedure are in the resu lts section. documented in this encounter Results (ABNORMAL) Protime-INR (05/18/2020) P athologist Signature INR 3.30 (A) 0.9 - 1.1 Protime Specimen (Source) Anatomical Location Collection Method / Collectio n Time Received Time / Laterality Volume Blood (Blood, 05/18/2020 Venous) Resulting Agency Comment [facility] LAB BLOOD ORDERABLES documented in this encounter Visit Diagnoses Diagnosis Other pulmonary embolism without acute c or pulmonale, unspecified chronicity (HCC) documented in this encounter Additional Health Concerns Infection Onset Date Last Indicated Resolved Time MSSA 10/04/2018 10/04/2018 06/28/2022 8:27 AM CDT documented as of this encounter Care Teams Paint Spray Inspector Relationship Specialty Start Date End Date Adarsh Carpenter MD PCP - General 05/07/[address] [place] [address] documented as of this encounter
--- OUTSIDE RECORDS SUMMARY | 2022-06-30 08:28 | XMS_ITS | Encounter Summary ---
:1960 Author Organization [facility] Address [address] [place] [address] Care Team Providers Name Role Phone Adarsh Carpenter MD Primary Care Provider Encounter Details Date Type Department Care Team Description 02/02/2020 Anticoagulation - SE [place], Other pulm onary Warfarin Visit Anticoag/Internal Salina Strong RN embolism without Medicine - Third [address] pulmonale, [address] [place], [place] [address] chronicity (HCC) [address] Social History Tobacco Use [...] 1 to 4 times per year 04/01 samaritan services? Do you belong to any clubs [...] encounter Progress Notes Salina Pratt RN - 02/02/2020 12:30 PM CDT Anticoagulation Clinic - RN INR RESULTS: INR (no units) Date Value 02/02/2020 2.70 (A) DOSE PLAN: 5 mg every MWF, 2.5 mg all other days DOSE CHANGE: No change NEXT INR: 4 weeks, 03/01/2020 ACC faxed INR results, instructions, and orders to [facility]. documented in this encounter Plan of Treatment Not on filedocumented as of this encounter Procedures Procedure Name Priority Date/Time Associated Diagnosis Comme nts PROTIME-INR Routine 02/02/2020 Results for thi s procedure are in the resu lts section. documented in this encounter Results (ABNORMAL) Protime-INR (02/02/2020) P athologist Signature INR 2.70 (A) 0.9 - 1.1 [facility] Contacts Protime [facility] Specimen (Source) Anatomical Location Collection Method / Collectio n Time Received Time / Laterality Volume Blood (Blood, 02/02/2020 Venous) Resulting Agency Comment INR-POC called to [facility] by [facility] nurse Historical Provider LAB BLOOD ORDERABLES Performing Organization Address City/State/ZIP Code Phon e Number [facility] [address] [place] [address] documented in this encounter Visit Diagnoses Diagnosis Other pulmonary embolism without acute c or pulmonale, unspecified chronicity (HCC) documented in this encounter Additional Health Concerns Infection Onset Date Last Indicated Resolved Time MSSA 10/04/2018 10/04/2018 06/28/2022 8:27 AM CDT documented as of this encounter Care Teams Packager Hand Relationship Specialty Start Date End Date Adarsh Carpenter MD PCP - General 05/07/[address] [place] [address] documented as of this encounter
--- OUTSIDE RECORDS SUMMARY | 2022-06-30 08:28 | XMS_ITS | Encounter Summary ---
:[address] [facility] Address [address] [place] [address] Care Team Providers Name Role Phone Adarsh Carpenter MD Primary Care Provider Encounter Details Date Type Department Care Team Description 12/17/2019 Lab [place] Other pulmonary embolism [address] without acute cor pulmonale, [place], [place] [address] unspecified chronicity (HCC) [phone] Social History Tobacco Use Types Packs/Day Years [...] Date/Time Associated Diagnosis Comme nts PROTIME-INR Routine 12/17/2019 9:23 AM Other pulmonary Result s for this CDT embolism without acute proce dure are in cor pulmonale, the results unspecified chronicity secti on. (HCC) documented in this encounter Results (ABNORMAL) Protime-INR (12/17/2019 9:23 AM CDT) athologist Signature Protime 38.2 (H) 10.6 - 12.9 12/17/2019 [facility] 1:37 PM CDT [facility] Comment: . INR 3.2 12/17/2019 1:37 PM CDT [facility] Comment: Suggested INR Therapeutic Ranges* Intensity ?Standard ?Higher ? 2.0-3.0 ? 2.5-3.5 *Target INR should be individualized. Occasionally, INR range 3.0-4.5 may be appropriate. Higher intensity INR: Mechanical heart valve, etc. Specimen Anatomical Collection Method Collection Time Receive d Time (Source) Location / / Volume Laterality Blood (Blood, 12/17/2019 9:23 AM 12/17/19 20 Venous) CDT 12:44 PM CDT Jodi Gee APRN, LASER/ELECTRO OPTICS TECHNICIAN LAB BLOOD ORDERABLES Performing Organization Address City/State/ZIP Code Phon e Number [facility] [address] [place] [address] documented in this encounter Visit Diagnoses Diagnosis Other pulmonary embolism without acute c or pulmonale, unspecified chronicity (HCC) documented in this encounter Additional Health Concerns Infection Onset Date Last Indicated Resolved Time MSSA 10/04/2018 10/04/2018 06/28/2022 8:27 AM CDT documented as of this encounter Care Teams Sustainability Coach Relationship Specialty Start Date End Date Adarsh Carpenter MD PCP - General 05/07/[address] [place] [address] documented as of this encounter
--- OUTSIDE RECORDS SUMMARY | 2022-06-30 08:28 | XMS_ITS | Encounter Summary ---
:1960 Author Organization [facility] Address [address] [place] [address] Care Team Providers Name Role Phone Adarsh Carpenter MD Primary Care Provider Encounter Details Date Type Department Care Team Description 12/17/2019 Travel Social History Tobacco Use Types Packs/Day [...] or relatives? How often do you attend religion or 1 to 4 times per year 04/01 jain services? Do you belong to any clubs or No 04/24/2022 organizations such as religion groups, unions, fraternal or athletic groups, or [...] documented as of this encounter Care Teams Wire Straightening Machine Operator Relationship Specialty Start Date End Date Adarsh Carpenter MD PCP - General 05/07/[address] [place] [address] documented as of this encounter
--- OUTSIDE RECORDS SUMMARY | 2022-06-30 08:28 | XMS_ITS | Encounter Summary ---
:1960 Author Organization [facility] Address [address] [place] [address] Care Team Providers Name Role Phone Adarsh Carpenter MD Primary Care Provider Reason for Visit Reason Onset Date Comments Med Refill 06/08/2020 Encounter Details Date Type Department Care Team Description 06/08/2020 Refill [place] Adarsh Carpenter MD Neurogenic bladder [address] [place], [place] [address] [place], [place] [phone] [address] (Wo rk) Social History Tobacco Use Types [...] or relatives? How often do you attend uatsdin or 1 to 4 times per year 04/01 temple services? Do you belong to any clubs or No 04/24/2022 organizations such as uatsdin groups, unions, fraternal or athletic groups, or [...] encounter Miscellaneous Notes Telephone Encounter - Carmen Ríos MA - 06/08/2020 8:02 AM CDT Last visit in provider department: 01/19/2020 Last visit requested medication was discussed: 01/19/2020 Upcoming appointment with provider: none Last Rx: 07/22/19 #120, 11 refills Requested Prescriptions Pending Prescriptions Disp Refills ??? Catheters (SELF-CATH STRAIGHT TIP) misc 120 each 11 Sig: USE DIRECTED documented in this encounter Plan of Treatment Not on filedocumented as of this encounter Visit Diagnoses Diagnosis Neurogenic bladder Neurogenic bladder, NOS documented in this encounter Additional Health Concerns Infection Onset Date Last Indicated Resolved Time MSSA 10/04/2018 10/04/2018 06/28/2022 8:27 AM CDT documented as of this encounter Care Teams Chemistry Technologist Relationship Specialty Start Date End Date Adarsh Carpenter MD PCP - General 05/07/[address] [place] [address] documented as of this encounter
--- OUTSIDE RECORDS SUMMARY | 2022-06-30 08:28 | XMS_ITS | Encounter Summary ---
:[address] [facility] Address [address] [place] [address] Care Team Providers Name Role Phone Adarsh Carpenter MD Primary Care Provider Encounter Details Date Type Department Care Team Description 12/31/2019 Anticoagulation - SE Yuki Gudino, Other pu lmonary Warfarin Visit Anticoag/Internal RN embolism without Medicine - Third [address] pul[place], [address] [place], [place] [address] chronicity (HCC) [address] Social History Tobacco Use [...] or relatives? How often do you attend judaism or 1 to 4 times per year 04/01 anabaptist services? Do you belong to any clubs or No 04/24/2022 organizations such as judaism groups, unions, fraternal or athletic groups, or [...] encounter Progress Notes Yuki Gudino RN - 12/31/2019 1:36 PM CDT Anticoagulation Clinic - RN INR RESULTS: INR (no units) Date Value 12/31/2019 2.2 DOSE PLAN: 5 mg every MWF; 2.5 mg all other days DOSE CHANGE: No change NEXT INR: 01/14/20 Left detailed phone message regarding INR results, anticoagulation dose plan, and when to recheck INR. Instructions left to call with any questions or concerns. Jodi Gee APRN, CNP - 12/31/2019 1:36 PM CDT ACC spoke to patient's Nelia regarding INR recheck date change due to COVID- 19 pandemic. Patient would like to extend INR recheck 1 additional week. Instructions given for patient to continue current warfarin dose and recheck INR on 01/21/20 (3 weeks from previous INR). Nelia verbalized understanding. documented in this encounter Plan of Treatment Not on filedocumented as of this encounter Visit Diagnoses Diagnosis Other pulmonary embolism without acute c or pulmonale, unspecified chronicity (HCC) documented in this encounter Additional Health Concerns Infection Onset Date Last Indicated Resolved Time MSSA 10/04/2018 10/04/2018 06/28/2022 8:27 AM CDT documented as of this encounter Care Teams Ornamental Plasterer Helper Relationship Specialty Start Date End Date Adarsh Carpenter MD PCP - General 05/07/[address] [place] [address] documented as of this encounter
--- OUTSIDE RECORDS SUMMARY | 2022-06-30 08:28 | XMS_ITS | Encounter Summary ---
:1960 Author Organization [facility] Address [address] [place] [address] Care Team Providers Name Role Phone Adarsh Carpenter MD Primary Care Provider Encounter Details Date Type Department Care Team Description 04/13/2020 Anticoagulation - SE Ena Erwin Other pu lmonary Warfarin Visit Anticoag/Internal L., RN embolism without Medicine - Third [address] pulmon[place], [address] [place], [place] [address] chronicity (HCC) [address] Social History Tobacco Use [...] or relatives? How often do you attend yarsani or 1 to 4 times per year 04/01 holiness services? Do you belong to any clubs or No 04/24/2022 organizations such as yarsani groups, unions, fraternal or athletic groups, or [...] encounter Progress Notes Ena Erwin RN - 04/13/2020 11:33 AM CDT Anticoagulation Clinic - RN INR RESULTS: INR (no units) Date Value 04/13/2020 3.10 (A) DOSE PLAN: 2.5 mg every e, Sondra, Sat; 5 mg all other days DOSE CHANGE: No change NEXT INR: 1 week; 04/20/20 ACC faxed INR results, instructions, and orders to [facility]. documented in this encounter Plan of Treatment Not on filedocumented as of this encounter Procedures Procedure Name Priority Date/Time Associated Diagnosis Comme nts PROTIME-INR Routine 04/13/2020 Results for thi s procedure are in the resu lts section. documented in this encounter Results (ABNORMAL) Protime-INR (04/13/2020) P athologist Signature INR 3.10 (A) 0.9 - 1.1 Protime Specimen (Source) Anatomical Location Collection Method / Collectio n Time Received Time / Laterality Volume Blood (Blood, 04/13/2020 Venous) Resulting Agency Comment Telephone call [facility]: Harsha lerner nurse Historical Provider LAB BLOOD ORDERABLES documented in this encounter Visit Diagnoses Diagnosis Other pulmonary embolism without acute c or pulmonale, unspecified chronicity (HCC) documented in this encounter Additional Health Concerns Infection Onset Date Last Indicated Resolved Time MSSA 10/04/2018 10/04/2018 06/28/2022 8:27 AM CDT documented as of this encounter Care Teams Retail Pos Specialist Relationship Specialty Start Date End Date Adarsh Carpenter MD PCP - General 05/07/[address] [place] [address] documented as of this encounter
--- OUTSIDE RECORDS SUMMARY | 2022-06-30 08:28 | XMS_ITS | Encounter Summary ---
:1960 Author Organization [facility] Address [address] [place] [address] Care Team Providers Name Role Phone Adarsh Carpenter MD Primary Care Provider Reason for Visit Reason Onset Date Comments Wheelchair cushion 06/15/2020 Encounter Details Date Type Department Care Team Description 06/15/2020 [place]phone [place], Wheelchair cushion [address] [place], [place] [address] [facility] [address] [place] [phone] [place] [address] (Wo rk) Social History Tobacco Use Types [...] 1 to 4 times per year 04/01 latter day services? Do you belong to any clubs [...] Notes Telephone Encounter - Patria Freeman - 06/15/2020 11:59 AM CDT RX faxed. Telephone Encounter - Sofia Denson RN - 06/15/2020 11:36 AM CDT Please fax. Telephone Encounter - Veronica Glez - 06/15/2020 11:20 AM CDT Pt's Nelia called stating Pt's insurance company, [employer], is needing a copy of the Rx for his wheelchair cushion for them to pay for it. Please fax copy of Rx to [phone] attn: Claims Dept. Nelia can be reached at [phone] as necessary. documented in this encounter Plan of Treatment Not on filedocumented as of this encounter Visit Diagnoses Not on filedocumented in this encounter Additional Health Concerns Infection Onset Date Last Indicated Resolved Time MSSA 10/04/2018 10/04/2018 06/28/2022 8:27 AM CDT documented as of this encounter Care Teams Provider Network Analyst Relationship Specialty Start Date End Date Adarsh Carpenter MD PCP - General 05/07/[address] [place] [phone] documented as of this encounter
--- OUTSIDE RECORDS SUMMARY | 2022-06-30 08:28 | XMS_ITS | Encounter Summary ---
:1960 Author Organization [facility] Address [address] [place] [address] Care Team Providers Name Role Phone Adarsh Carpenter MD Primary Care Provider Encounter Details Date Type Department Care Team Description 01/20/2020 Anticoagulation - SE Ena Erwin Other pu lmonary Warfarin Visit Anticoag/Internal L., RN embolism without Medicine - Third [address] pulmon[place], [address] [place], [place] [address] chronicity (HCC) [address] Social History Tobacco Use [...] 1 to 4 times per year 04/01 christianity services? Do you belong to any clubs [...] encounter Progress Notes Ena Erwin RN - 01/20/2020 4:53 PM CDT Anticoagulation Clinic - RN Protocol Screening INR RESULTS: INR (no units) Date Value 01/20/2020 2.40 (A) DOSE PLAN: 5 mg every Mon, Wed, Fri; 2.5 mg all other days DOSE CHANGE: No change NEXT INR: 2 weeks; 02/03/20 VERIFY PREVIOUS DOSE PLAN Verified MISSED/EXTRA DOSES No MEDICATION CHANGES No DIET OR ALCOHOL CHANGES No RECENT ILLNESS/ HOSPITALIZATIONS No ABNORMAL BLEEDING OR BRUISING No FALLS OR INJURIES No NEW PAIN SYMPTOMS N/A NEW SHORTNESS OF BREATH No NEW NEUROLOGICAL SYMPTOMS N/A INR results reviewed. Verbalized understanding of anticoagulation dose plan and next INR. documented in this encounter Plan of Treatment Not on filedocumented as of this encounter Procedures Procedure Name Priority Date/Time Associated Diagnosis Comme nts PROTIME-INR Routine 01/20/2020 Results for thi s procedure are in the resu lts section. documented in this encounter Results (ABNORMAL) Protime-INR (01/20/2020) P athologist Signature INR 2.40 (A) 0.9 - 1.1 [facility] POINT OF CARE TESTING Protime [facility] POINT OF CARE TESTING Specimen (Source) Anatomical Location Collection Method / Collectio n Time Received Time / Laterality Volume Blood (Blood, 01/20/2020 Venous) Resulting Agency Comment [facility]: Marifer nurse Historical Provider LAB BLOOD ORDERABLES Performing [...] as of this encounter Care Teams Manager Leasing Relationship Specialty Start Date End Date Adarsh Carpenter MD PCP - General 05/07/[address] [place] [address] documented as of this encounter
--- OUTSIDE RECORDS SUMMARY | 2022-06-30 08:28 | XMS_ITS | Encounter Summary ---
:1960 Author Organization [facility] Address [address] [place] [address] Care Team Providers Name Role Phone Adarsh Carpenter MD Primary Care Provider Reason for Visit Reason Onset Date Comments inr 01/08/2020 Encounter Details Date Type Department Care Team Description 01/08/2020 Telephone [place] Adarsh Carpenter MD inr [address] [place], [place] [address] [place], [place] [phone] [address] (Wo rk) Social History Tobacco Use Types [...] 1 to 4 times per year 04/01 episcopalian services? Do you belong to any clubs [...] Telephone Encounter - Sofia Denson RN - 01/08/2020 3:03 PM CDT Noted. Telephone Encounter - Adarsh Carpenter MD - 01/08/2020 3:01 PM CDT I talked to Dhruv and Nelia and gave them a number of different options and for now they will continue to come into the office for his INR checks. Telephone Encounter - Sofia Denson RN - 01/08/2020 2:09 PM CDT Spoke to Nelia, they are interested in getting an at home INR machine so they can do this from their home during the COVID pandemic. [facility] [place] [facility] what [facility] requirements are for ordering. Please review and advise if patient would be a candidate for at home monitoring? Telephone Encounter - Ciera Alvarez - 01/08/2020 12:00 PM CDT Marifer called about home inr testing. They are not able to go and do that but there is home testing ability maybe through [facility] [place]. documented in this encounter Plan of Treatment Not on filedocumented as of this encounter Visit Diagnoses Not on filedocumented in this encounter Additional Health Concerns Infection Onset Date Last Indicated Resolved Time MSSA 10/04/2018 10/04/2018 06/28/2022 8:27 AM CDT documented as of this encounter Care Teams Cartridge Gauger Relationship Specialty Start Date End Date Adarsh Carpenter MD PCP - General 05/07/[address] [place] [address] documented as of this encounter
--- OUTSIDE RECORDS SUMMARY | 2022-06-30 08:28 | XMS_ITS | Encounter Summary ---
:1960 Author Organization [facility] Address [address] [place] [address] Care Team Providers Name Role Phone Adarsh Carpenter MD Primary Care Provider Encounter Details Date Type Department Care Team Description 12/31/2019 Lab [place] Other pulmonary embolism [address] without acute cor pulmonale, [place], [place] [address] unspecified chronicity (HCC) [phone] Social History Tobacco Use Types Packs/Day Years [...] or relatives? How often do you attend tenriism or 1 to 4 times per year 04/01 restorationism services? Do you belong to any clubs or No 04/24/2022 organizations such as tenriism groups, unions, fraternal or athletic groups, or [...] Date/Time Associated Diagnosis Comme nts PROTIME-INR Routine 12/31/2019 9:12 AM Other pulmonary Result s for this CDT embolism without acute proce dure are in cor pulmonale, the results unspecified chronicity secti on. (HCC) documented in this encounter Results (ABNORMAL) Protime-INR (12/31/2019 9:12 AM CDT) athologist Signature Protime 26.3 (H) 10.6 - 12.9 12/31/2019 [facility] 1:33 PM CDT [facility] Comment: . INR 2.2 12/31/2019 1:33 PM CDT [facility] Comment: Suggested INR Therapeutic Ranges* Intensity ?Standard ?Higher ? 2.0-3.0 ? 2.5-3.5 *Target INR should be individualized. Occasionally, INR range 3.0-4.5 may be appropriate. Higher intensity INR: Mechanical heart valve, etc. Specimen Anatomical Collection Method Collection Time Receive d Time (Source) Location / / Volume Laterality Blood (Blood, 12/31/2019 9:12 AM 12/31/19 20 Venous) CDT 12:26 PM CDT Jodi Gee APRN, CARE ASSISTANT LAB BLOOD ORDERABLES Performing Organization Address City/State/ZIP Code Phon e Number [facility] [address] [place] [address] documented in this encounter Visit Diagnoses Diagnosis Other pulmonary embolism without acute c or pulmonale, unspecified chronicity (HCC) documented in this encounter Additional Health Concerns Infection Onset Date Last Indicated Resolved Time MSSA 10/04/2018 10/04/2018 06/28/2022 8:27 AM CDT documented as of this encounter Care Teams Recruitment Officer Relationship Specialty Start Date End Date Adarsh Carpenter MD PCP - General 05/07/[address] [place] [address] documented as of this encounter
--- OUTSIDE RECORDS SUMMARY | 2022-06-30 08:28 | XMS_ITS | Encounter Summary ---
:1960 Author Organization [facility] Address [address] [place] [address] Care Team Providers Name Role Phone Adarsh Carpenter MD Primary Care Provider Encounter Details Date Type Department Care Team Description 01/14/2020 Telephone [place] Adarsh Carpenter MD [address] [place] [address] [place], [place] [phone] (Wo rk) Social History Tobacco Use Types [...] this encounter Miscellaneous Notes Telephone Encounter - Salina Pratt RN - 01/20/2020 3:45 PM CDT ACC nurse called ROBERT Long from [facility], and left a detailed phone message to return the call regarding doing INRs in the patient's home. He is due for an INR tomorrow, 01/20/2020 Telephone Encounter - Vidhya Bain LPN - 01/19/2020 10:00 AM CDT The patient is having a telephone call visit today with Dr. Mauricio. This will be discussed at today's visit. Telephone Encounter - Carmen Parry RN - 01/15/2020 3:39 PM CDT Face to face form received via fax. I did speak with nurse and Dr Carpenter regarding this telephone visit and this is ok'd due to covid 19 situation and pt high risk factors to come in. Telephone Encounter - Carmen Parry RN - 01/15/2020 7:52 AM CDT Phone order given. Mercedes RN will need notes from Sunday, a list of current medications and allergies, and face to face form which she will be faxing to me today for mondays visit. Telephone Encounter - Adarsh Carpenter MD - 01/14/2020 6:06 PM CDT You can give Mercedes the phone order to start in home services. If she needs me to call her I can dothis or we can fax the order Sunday after the over the phone consult with Dhruv. Let me know what works best for all parties. Telephone Encounter - Caremn Parry RN - 01/14/2020 5:00 PM CDT I spoke with Mercedes from [facility]: They are wanting an order to restart home care services. Pt needs a face to face visit-due to the Covid 19 precautions and pt high risk I set up a telephone visit for Sunday at 9:20am. Mercedes is wondering if she can get an order to start home care services, she would also be doing patient's INR testing. She would do an in home assessment Sunday. If order received from you they would like list of medications and note. Please advise Telephone Encounter - Carmen Parry RN - 01/14/2020 4:43 PM CDT [email or web address] Telephone Encounter - Viri Crenshaw - 01/14/2020 8:35 AM CDT Mercedes has discussed starting home health care with patient's . Mercedes states that she can draw the patient's INR blood work but needs a face to face order from Dr. Carpenter. Would this be possible to do? Please call [phone] after 1pm today to disscuss. documented in this encounter Plan of Treatment Not on filedocumented as of this encounter Visit Diagnoses Not on filedocumented in this encounter Additional Health Concerns Infection Onset Date Last Indicated Resolved Time MSSA 10/04/2018 10/04/2018 06/28/2022 8:27 AM CDT documented as of this encounter Care Teams Heavy Forger Relationship Specialty Start Date End Date Adarsh Carpenter MD PCP - General 05/07/[address] [place] [address] documented as of this encounter
--- OUTSIDE RECORDS SUMMARY | 2022-06-30 08:28 | XMS_ITS | Encounter Summary ---
:1960 Author Organization [facility] Address [address] [place] [address] Care Team Providers Name Role Phone Adarsh Carpenter MD Primary Care Provider Encounter Details Date Type Department Care Team Description 2020 Anticoagulation - SE Terri Spivey Other pul monary Warfarin Visit Anticoag/Internal J, RN embolism without Medicine - Third [address] pulmonale, [address] [place], [place] [address] chronicity (HCC) [address] Social History Tobacco Use [...] 1 to 4 times per year 04/01 nondenominational services? Do you belong to any clubs [...] encounter Progress Notes Terri Spivey RN - 2020 11:27 AM CDT Anticoagulation Clinic - RN Protocol Screening INR RESULTS: INR (no units) Date Value 2020 2.30 (A) DOSE PLAN: 5 mg every Mon, Wed, Fri; 2.5 mg all other days DOSE CHANGE: No change; pt was just recently adjusted from 04/28 NEXT INR: 05/11/2020 - 1 week VERIFY PREVIOUS DOSE PLAN Verified - with [facility] nurse MISSED/EXTRA DOSES No MEDICATION CHANGES No DIET OR ALCOHOL CHANGES No RECENT ILLNESS/ HOSPITALIZATIONS No ABNORMAL BLEEDING OR BRUISING No FALLS OR INJURIES No NEW PAIN SYMPTOMS No NEW SHORTNESS OF BREATH No NEW NEUROLOGICAL SYMPTOMS No INR results reviewed. Verbalized understanding of anticoagulation dose plan and next INR. AVS faxed to [facility] documented in this encounter Plan of Treatment Not on filedocumented as of this encounter Procedures Procedure Name Priority Date/Time Associated Diagnosis Comme nts PROTIME-INR Routine 2020 Results for thi s procedure are in the resu lts section. documented in this encounter Results (ABNORMAL) Protime-INR (2020) P athologist Signature INR 2.30 (A) 0.9 - 1.1 [place] Protime [place] Specimen (Source) Anatomical Location Collection Method / Collectio n Time Received Time / Laterality Volume Blood (Blood, 2020 Venous) Resulting Agency Comment [facility] ??- POC Historical Provider LAB BLOOD ORDERABLES Performing Organization Address City/State/ZIP Code Phon e Number [place] [address] [place] [address] documented in this encounter Visit Diagnoses Diagnosis Other pulmonary embolism without acute c or pulmonale, unspecified chronicity (HCC) documented in this encounter Additional Health Concerns Infection Onset Date Last Indicated Resolved Time MSSA 10/04/2018 10/04/2018 06/28/2022 8:27 AM CDT documented as of this encounter Care Teams Stitching Machine Feeder Or Offbearer Relationship Specialty Start Date End Date Adarsh Carpenter MD PCP - General 05/07/[address] [place] [address] documented as of this encounter
--- OUTSIDE RECORDS SUMMARY | 2022-06-30 08:28 | XMS_ITS | Encounter Summary ---
:1960 Author Organization [facility] Address [address] [place] [address] Care Team Providers Name Role Phone Adarsh Carpenter MD Primary Care Provider Encounter Details Date Type Department Care Team Description 04/28/2020 Anticoagulation - SE Ena Erwin Other pu lmonary Warfarin Visit Anticoag/Internal L., RN embolism without Medicine - Third [address] pulmonale, [address] [place], [place] [address] chronicity (HCC) [address] Social History Tobacco Use [...] 1 to 4 times per year 04/01 rastafari services? Do you belong to any clubs [...] encounter Progress Notes Ena Erwin RN - 04/28/2020 12:39 PM CDT Anticoagulation Clinic - RN INR RESULTS: INR (no units) Date Value 04/28/2020 3.20 (A) DOSE PLAN: 5 mg every Mon, Wed, Fri; 2.5 mg all other days DOSE CHANGE: Decreased by 9.1% (2.5 mg/week) NEXT INR: 1 week; 05/04/20 [facility] faxed INR results, instructions, and orders to [facility]. documented in this encounter Plan of Treatment Not on filedocumented as of this encounter Procedures Procedure Name Priority Date/Time Associated Diagnosis Comme nts PROTIME-INR Routine 04/28/2020 Results for thi s procedure are in the resu lts section. documented in this encounter Results (ABNORMAL) Protime-INR (04/28/2020) P athologist Signature INR 3.20 (A) 0.9 - 1.1 Protime Specimen (Source) Anatomical Location Collection Method / Collectio n Time Received Time / Laterality Volume Blood (Blood, 04/28/2020 Venous) Resulting Agency Comment POC telephone call [facility]: [place] Nurse to Dr Jayden HERCULES Historical Provider LAB BLOOD ORDERABLES documented in this encounter Visit Diagnoses Diagnosis Other pulmonary embolism without acute c or pulmonale, unspecified chronicity (HCC) documented in this encounter Additional Health Concerns Infection Onset Date Last Indicated Resolved Time MSSA 10/04/2018 10/04/2018 06/28/2022 8:27 AM CDT documented as of this encounter Care Teams Page Makeup System Operator Relationship Specialty Start Date End Date Adarsh Carpenter MD PCP - General 05/07/[address] [place] [address] documented as of this encounter
--- OUTSIDE RECORDS SUMMARY | 2022-06-30 08:28 | XMS_ITS | Encounter Summary ---
:1960 Author Organization [facility] Address [address] [place] [address] Care Team Providers Name Role Phone Adarsh Carpenter MD Primary Care Provider Encounter Details Date Type Department Care Team Description 12/05/2019 Travel Social History Tobacco Use Types Packs/Day [...] documented as of this encounter Care Teams Composition Instructor Relationship Specialty Start Date End Date Adarsh Carpenter MD PCP - General 05/07/[address] [place] [address] documented as of this encounter
--- OUTSIDE RECORDS SUMMARY | 2022-06-30 08:28 | XMS_ITS | Encounter Summary ---
:1960 Author Organization [facility] Address [address] [place] [address] Care Team Providers Name Role Phone Adarsh Carpenter MD Primary Care Provider Encounter Details Date Type Department Care Team Description 04/20/2020 Anticoagulation - SE Ena Erwin Other pu lmonary Warfarin Visit Anticoag/Internal L., RN embolism without Medicine - Third [address] pulmonale, [address] [place], [place] [address] chronicity (HCC) [address] Social History Tobacco Use [...] or relatives? How often do you attend sabianist or 1 to 4 times per year 04/01 muslim services? Do you belong to any clubs or No 04/24/2022 organizations such as sabianist groups, unions, fraternal or athletic groups, or [...] encounter Progress Notes Ena Erwin RN - 04/20/2020 1:53 PM CDT Anticoagulation Clinic - RN INR RESULTS: INR (no units) Date Value 04/20/2020 2.70 (A) DOSE PLAN: 2.5 mg every e, Sondra, Sat; 5 mg all other days DOSE CHANGE: No change NEXT INR: 1 week; 04/27/20 [facility] faxed INR results, instructions, and orders to [facility] [place] [facility]. documented in this encounter Plan of Treatment Not on filedocumented as of this encounter Procedures Procedure Name Priority Date/Time Associated Diagnosis Comme nts PROTIME-INR Routine 04/20/2020 Results for thi s procedure are in the resu lts section. documented in this encounter Results (ABNORMAL) Protime-INR (04/20/2020) P athologist Signature INR 2.70 (A) 0.9 - 1.1 Protime Specimen (Source) Anatomical Location Collection Method / Collectio n Time Received Time / Laterality Volume Blood (Blood, 04/20/2020 Venous) Resulting Agency Comment POC telephone call [facility] [place] [facility]: Maritza Munoz Historical Provider LAB BLOOD ORDERABLES documented in this encounter Visit Diagnoses Diagnosis Other pulmonary embolism without acute c or pulmonale, unspecified chronicity (HCC) documented in this encounter Additional Health Concerns Infection Onset Date Last Indicated Resolved Time MSSA 10/04/2018 10/04/2018 06/28/2022 8:27 AM CDT documented as of this encounter Care Teams Roads Supervisor Relationship Specialty Start Date End Date Adarsh Carpenter MD PCP - General 05/07/[address] [place] [address] documented as of this encounter
--- OUTSIDE RECORDS SUMMARY | 2022-06-30 08:28 | XMS_ITS | Encounter Summary ---
:1960 Author Organization [facility] Address [address] [place] [address] Care Team Providers Name Role Phone Adarsh Carpenter MD Primary Care Provider Reason for Visit Reason Onset Date Comments Med Refill 06/03/2020 Encounter Details Date Type Department Care Team Description 06/03/2020 Refill [place] Adarsh Carpenter, Other pulmonary embolism [address] [place] without acute cor [place], [place] [address] pulmonale, unspecified [phone] [place], [place] chronicity ([facility]) [id number] Social History Tobacco Use Types Packs/Day Years [...] Telephone Encounter - Carmen Ríos MA - 06/03/2020 3:06 PM CDT Last visit in provider department: 01/19/2020 Last visit requested medication was discussed: 06/01/2020 anticoag Upcoming appointment with provider: none Last Rx: 04/08/19 #64, 3 refills Requested Prescriptions Pending Prescriptions Disp Refills ??? warfarin (COUMADIN) 5 MG tablet 64 tablet 3 Sig: Take 1 tablet (5 mg) PO daily on Mon, Wed, Fri; take 1/2 tablet (2.5 mg) on all other days andas directed by Anticoagulation clinic Labs: Component Latest Ref Rng & Units 06/01/2020 INR 0.9 - 1.1 2.70 (A) documented in this encounter Plan of Treatment Not on filedocumented as of this encounter Visit Diagnoses Diagnosis Other pulmonary embolism without acute c or pulmonale, unspecified chronicity (HCC) documented in this encounter Additional Health Concerns Infection Onset Date Last Indicated Resolved Time MSSA 10/04/2018 10/04/2018 06/28/2022 8:27 AM CDT documented as of this encounter Care Teams Road Boss Relationship Specialty Start Date End Date Adarsh Carpenter MD PCP - General 05/07/[address] [place] [address] documented as of this encounter
--- OUTSIDE RECORDS SUMMARY | 2022-06-30 08:28 | XMS_ITS | Encounter Summary ---
:1960 Author Organization [facility] Address [address] [place] [address] Care Team Providers Name Role Phone Adarsh Carpenter MD Primary Care Provider Encounter Details Date Type Department Care Team Description 05/25/2020 Telephone Antico/Internal Medicine Mo Adarsh conn MD - Third Floor [address] [facility] [address] [address], [place] [address] [phone] (Wo rk) Social History Tobacco Use Types [...] this encounter Miscellaneous Notes Telephone Encounter - Theresa Moreno RN - 05/25/2020 12:27 PM CDT 05/25/2020 - Nurse called in INR and Report Faxed to [facility]. documented in this encounter Plan of Treatment Not on filedocumented as of this encounter Visit Diagnoses Not on filedocumented in this encounter Additional Health Concerns Infection Onset Date Last Indicated Resolved Time MSSA 10/04/2018 10/04/2018 06/28/2022 8:27 AM CDT documented as of this encounter Care Teams Fountain Pen Turner Relationship Specialty Start Date End Date Adarsh Carpenter MD PCP - General 05/07/[address] [place] [address] documented as of this encounter
--- OUTSIDE RECORDS SUMMARY | 2022-06-30 08:29 | XMS_ITS | Encounter Summary ---
:1960 Author Organization [facility] Address [address] [place] [address] Care Team Providers Name Role Phone Adarsh Carpenter MD Primary Care Provider Encounter Details Date Type Department Care Team Description 11/28/2019 Lab [place] Other pulmonary embolism [address] without acute cor pulmonale, [place], [place] [address] unspecified chronicity (HCC) [phone] Social History Tobacco Use Types Packs/Day Years [...] 1 to 4 times per year 04/01 yazidism services? Do you belong to any clubs [...] Date/Time Associated Diagnosis Comme nts PROTIME-INR Routine 11/28/2019 9:49 AM Other pulmonary Result s for this SUPERVISOR [employer] FABRICATION embolism without acute proce dure are in cor pulmonale, the results unspecified chronicity secti on. (HCC) documented in this encounter Results (ABNORMAL) Protime-INR (11/28/2019 9:49 AM SUPERVISOR [employer]UM[employer] FABRICATION) P athologist Signature Protime 27.2 (H) 10.6 - 12.9 11/28/2019 [facility] 1:08 PM SUPERVISOR ALUMINUM FABRICATION [facility] Comment: . INR 2.3 11/28/2019 1:08 PM SUPERVISOR ALUMINUM FABRICATION [facility] Comment: Suggested INR Therapeutic Ranges* Intensity ?Standard ?Higher ? 2.0-3.0 ? 2.5-3.5 *Target INR should be individualized. Occasionally, INR range 3.0-4.5 may be appropriate. Higher intensity INR: Mechanical heart valve, etc. Specimen Anatomical Collection Method Collection Time Receive d Time (Source) Location / / Volume Laterality Blood (Blood, 11/28/2019 9:49 AM 11/28/19 20 Venous) [employer] 12:51 PM SUPERVISOR [employer]UMIN[employer] FABRICATION Ti Ellison APRN, TIMBER POISONER LAB BLOOD ORDERABLES Performing Organization Address City/State/ZIP Code Phon e Number [facility] [address] [place] [address] documented in this encounter Visit Diagnoses Diagnosis Other pulmonary embolism without acute c or pulmonale, unspecified chronicity (HCC) documented in this encounter Additional Health Concerns Infection Onset Date Last Indicated Resolved Time MSSA 10/04/2018 10/04/2018 06/28/2022 8:27 AM CDT documented as of this encounter Care Teams Housekeeping/Laundry Relationship Specialty Start Date End Date Adarsh Carpenter MD PCP - General 05/07/[address] [place] [address] documented as of this encounter
--- OUTSIDE RECORDS SUMMARY | 2022-06-30 08:29 | XMS_ITS | Encounter Summary ---
:1960 Author Organization [facility] Address [address] [place] [address] Care Team Providers Name Role Phone Adarsh Carpenter MD Primary Care Provider Encounter Details Date Type Department Care Team Description 11/18/2019 Anticoagulation - SE Yuki Gudino, Other pu lmonary Warfarin Visit Anticoag/Internal RN embolism without Medicine - Third [address] pulmonale, [address] [place], [place] [address] chronicity (HCC) [address] Social History Tobacco Use [...] 1 to 4 times per year 04/01 voodoo services? Do you belong to any clubs [...] encounter Progress Notes Yuki Gudino RN - 11/18/2019 1:00 PM CST Anticoagulation Clinic - RN INR RESULTS: INR (no units) Date Value 11/18/2019 2.2 DOSE PLAN: 5 mg Sun, Sun; 2.5 mg all other days DOSE CHANGE: Decreased by 2.5 mg a week NEXT INR: 11/25/2019 Left detailed phone message regarding INR results, anticoagulation dose plan, and when to recheck INR. Instructions left to call with any questions or concerns. TUBER HAND documented in this encounter Plan of Treatment Not on filedocumented as of this encounter Results (ABNORMAL) Protime-INR (11/25/2019 9:42 AM CELL TUBER HAND) P athologist Signature Protime 20.0 (H) 10.6 - 12.9 11/25/2019 [facility] 12:40 PM [facility] Comment: . INR 1.7 11/25/2019 12:40 PM [facility] Comment: Suggested INR Therapeutic Ranges* Intensity ?Standard ?Higher ? 2.0-3.0 ? 2.5-3.5 *Target INR should be individualized. Occasionally, INR range 3.0-4.5 may be appropriate. Higher intensity INR: Mechanical heart valve, etc. Specimen Anatomical Collection Method Collection Time Receive d Time (Source) Location / / Volume Laterality Blood (Blood, 11/25/2019 9:42 AM 11/25/19 20 Venous) CELL TUBER HAND 12:09 PM CELL TUBER HAND Chalinogwyn Scot JIMENEZ, CLINICAL SOCIAL WORK THERAPIST LAB BLOOD ORDERABLES Performing Organization Address City/State/ZIP Code Phon e Number [facility] [address] [place] [address] documented in this encounter Visit Diagnoses Diagnosis Other pulmonary embolism without acute c or pulmonale, unspecified chronicity (HCC) documented in this encounter Additional Health Concerns Infection Onset Date Last Indicated Resolved Time MSSA 10/04/2018 10/04/2018 06/28/2022 8:27 AM CDT documented as of this encounter Care Teams Saw Maker Relationship Specialty Start Date End Date Adarsh Carpenter MD PCP - General 05/07/[address] [place] [address] documented as of this encounter
--- OUTSIDE RECORDS SUMMARY | 2022-06-30 08:29 | XMS_ITS | Encounter Summary ---
:1960 Author Organization [facility] Address [address] [place] [address] Care Team Providers Name Role Phone Adarsh Carpenter MD Primary Care Provider Encounter Details Date Type Department Care Team Description 11/17/2019 Lab [place] Other pulmonary embolism [address] without acute cor pulmonale, [place], [place] [address] unspecified chronicity (HCC) [phone] Social History Tobacco Use Types Packs/Day Years [...] 1 to 4 times per year 04/01 bahai services? Do you belong to any clubs [...] Date/Time Associated Diagnosis Comme nts PROTIME-INR Routine 11/17/2019 9:15 AM Other pulmonary Result s for this DIRECTOR SOFTWARE QUALITY ASSURANCE embolism without acute proce dure are in cor pulmonale, the results unspecified chronicity secti on. (HCC) documented in this encounter Results (ABNORMAL) Protime-INR (11/17/2019 9:15 AM DIRECTOR SOFTWARE QUALITY ASSURANCE) P athologist Signature Protime 47.4 (H) 10.6 - 12.9 11/17/2019 [facility] 12:45 PM DIRECTOR SOFTWARE QUALITY ASSURANCE [facility] Comment: . INR 4.0 11/17/2019 12:45 PM DIRECTOR SOFTWARE QUALITY ASSURANCE [facility] Comment: Suggested INR Therapeutic Ranges* Intensity ?Standard ?Higher ? 2.0-3.0 ? 2.5-3.5 *Target INR should be individualized. Occasionally, INR range 3.0-4.5 may be appropriate. Higher intensity INR: Mechanical heart valve, etc. Specimen Anatomical Collection Method Collection Time Receive d Time (Source) Location / / Volume Laterality Blood (Blood, 11/17/2019 9:15 AM 11/17/19 20 Venous) [employer]AL[employer]URANCE 12:15 PM DIRECTOR SOFTWARE QUALITY ASSURANCE Ti Ellison APRN, SUPPORT SERVICE TECH LAB BLOOD ORDERABLES Performing Organization Address City/State/ZIP Code Phon e Number [facility] [address] [place] [address] documented in this encounter Visit Diagnoses Diagnosis Other pulmonary embolism without acute c or pulmonale, unspecified chronicity (HCC) documented in this encounter Additional Health Concerns Infection Onset Date Last Indicated Resolved Time MSSA 10/04/2018 10/04/2018 06/28/2022 8:27 AM CDT documented as of this encounter Care Teams Dinkey Engine Mechanic Relationship Specialty Start Date End Date Adarsh Carpenter MD PCP - General 05/07/[address] [place] [address] documented as of this encounter
--- OUTSIDE RECORDS SUMMARY | 2022-06-30 08:29 | XMS_ITS | Encounter Summary ---
:1960 Author Organization [facility] Address [address] [place] [address] Care Team Providers Name Role Phone Adarsh Carpenter MD Primary Care Provider Reason for Visit Reason Onset Date Comments [facility] 11/10/2019 Encounter Details Date Type Department Care Team Description 11/10/2019 Telephone [place] Adarsh Carpenter, [facility] [address] [place], [place] [address] [phone] [place] [address] (Wo rk) Social History Tobacco Use Types [...] Telephone Encounter - Vidhya Bain LPN - 11/10/2019 10:38 AM CST Noted [employer] Telephone Encounter - Veronica Glez - 11/10/2019 10:27 AM CST Paperwork faxed. Copy placed in hanging date file and original sent to scanning. [employer] Telephone Encounter - Vidhya Bain LPN - 11/10/2019 10:15 AM CST Please fax [employer] Telephone Encounter - Sofia Denson RN - 11/10/2019 7:47 AM CST ----- Message from Adarsh Carpenter MD sent at 11/09/2019 2:28 PM [employer] ----- Please copy my H and P from 07/23/2019 as well as an updated med list and FAX to [facility] along with my signature and date. Also call Nelia let her know this has been sent to [facility]. Also ask herwhether the Celexa anti-depressant has been of any benefit and if so should we stay on the same doseor increase it. Let me know. [employer] documented in this encounter Plan of Treatment Not on filedocumented as of this encounter Visit Diagnoses Not on filedocumented in this encounter Additional Health Concerns Infection Onset Date Last Indicated Resolved Time MSSA 10/04/2018 10/04/2018 06/28/2022 8:27 AM CDT documented as of this encounter Care Teams Cna Gna Relationship Specialty Start Date End Date Adarsh Carpenter MD PCP - General 05/07/[address] [place] [address] documented as of this encounter
--- OUTSIDE RECORDS SUMMARY | 2022-06-30 08:29 | XMS_ITS | Encounter Summary ---
:1960 Author Organization [facility] Address [address] [place] [address] Care Team Providers Name Role Phone Adarsh Carpenter MD Primary Care Provider Encounter Details Date Type Department Care Team Description 11/09/2019 Orders Only [place] Adarsh Carpenter MD [address] [place], [place] [address] [place], [place] [phone] [phone] (Wo rk) Social History Tobacco Use Types [...] as of this encounter Care Teams Composition Teacher Relationship Specialty Start Date End Date Adarsh Carpenter MD PCP - General 05/07/[address] [place] [address] documented as of this encounter
--- OUTSIDE RECORDS SUMMARY | 2022-06-30 08:29 | XMS_ITS | Encounter Summary ---
:1960 Author Organization [facility] Address [address] [place] [address] Care Team Providers Name Role Phone Adarsh Carpenter MD Primary Care Provider Reason for Visit Reason Onset Date Comments Fax number: [phone] 11/10/2019 Encounter Details Date Type Department Care Team Description 11/10/2019 Telephone [place] Fax number: [phone] [address] [address] MD [place], [place] [address] [phone] [place] [address] Social History Tobacco Use Types Packs/Day Years [...] LPN - 11/10/2019 10:38 AM CST Noted RESS TRUCKER Telephone Encounter - Veronica Glez - 11/10/2019 10:31 AM CST Paperwork faxed, copy in dated hanging file and original sent to scanning. RESS TRUCKER Telephone Encounter - Vidhya Bain LPN - 11/10/2019 10:07 AM CST Please fax the information back to [facility] per the paperwork. RESS TRUCKER documented in this encounter Plan of Treatment Not on filedocumented as of this encounter Visit Diagnoses Not on filedocumented in this encounter Additional Health Concerns Infection Onset Date Last Indicated Resolved Time MSSA 10/04/2018 10/04/2018 06/28/2022 8:27 AM CDT documented as of this encounter Care Teams Reheater Helper Relationship Specialty Start Date End Date Adarsh Carpenter MD PCP - General 05/07/[address] [place] [address] documented as of this encounter
--- OUTSIDE RECORDS SUMMARY | 2022-06-30 08:29 | XMS_ITS | Encounter Summary ---
:1960 Author Organization [facility] Address [address] [place] [address] Care Team Providers Name Role Phone Adarsh Carpenter MD Primary Care Provider Encounter Details Date Type Department Care Team Description 12/05/2019 Lab [place] Other pulmonary embolism [address] without acute cor pulmonale, [place], [place] [address] unspecified chronicity (HCC) [phone] Social History Tobacco Use Types Packs/Day Years [...] Date/Time Associated Diagnosis Comme nts PROTIME-INR Routine 12/05/2019 9:14 AM Other pulmonary Result s for this PRE PLANNING ADVISOR embolism without acute proce dure are in cor pulmonale, the results unspecified chronicity secti on. (HCC) documented in this encounter Results (ABNORMAL) Protime-INR (12/05/2019 9:14 AM PRE PLANNING ADVISOR) P athologist Signature Protime 23.0 (H) 10.6 - 12.9 12/05/2019 [facility] 1:36 PM PRE PLANNING ADVISOR [facility] Comment: . INR 2.0 12/05/2019 1:36 PM PRE PLANNING ADVISOR [facility] Comment: Suggested INR Therapeutic Ranges* Intensity ?Standard ?Higher ? 2.0-3.0 ? 2.5-3.5 *Target INR should be individualized. Occasionally, INR range 3.0-4.5 may be appropriate. Higher intensity INR: Mechanical heart valve, etc. Specimen Anatomical Collection Method Collection Time Receive d Time (Source) Location / / Volume Laterality Blood (Blood, 12/05/2019 9:14 AM 12/05/19 20 1:03 Venous) PRE PLANNING ADVISOR PM PRE PLANNING ADVISOR Jodi Gee APRN, FUR GRADER LAB BLOOD ORDERABLES Performing Organization Address City/State/ZIP Code Phon e Number [facility] [address] [place] [address] documented in this encounter Visit Diagnoses Diagnosis Other pulmonary embolism without acute c or pulmonale, unspecified chronicity (HCC) documented in this encounter Additional Health Concerns Infection Onset Date Last Indicated Resolved Time MSSA 10/04/2018 10/04/2018 06/28/2022 8:27 AM CDT documented as of this encounter Care Teams Geodetic Engineer Relationship Specialty Start Date End Date Adarsh Carpenter MD PCP - General 05/07/[address] [place] [address] documented as of this encounter
--- OUTSIDE RECORDS SUMMARY | 2022-06-30 08:29 | XMS_ITS | Encounter Summary ---
:1960 Author Organization [facility] Address [address] [place] [address] Care Team Providers Name Role Phone Adarsh Carpenter MD Primary Care Provider Encounter Details Date Type Department Care Team Description 11/18/2019 Lab [place] Other pulmonary embolism [address] without acute cor pulmonale, [place], [place] [address] unspecified chronicity (HCC) [phone] Social History Tobacco Use Types Packs/Day Years [...] Date/Time Associated Diagnosis Comme nts PROTIME-INR Routine 11/18/2019 9:23 AM Other pulmonary Result s for this COPY TECHNICIAN embolism without acute proce dure are in cor pulmonale, the results unspecified chronicity secti on. (HCC) documented in this encounter Results (ABNORMAL) Protime-INR (11/18/2019 9:23 AM COPY TECHNICIAN) P athologist Signature Protime 25.9 (H) 10.6 - 12.9 11/18/2019 [facility] 12:25 PM COPY TECHNICIAN [facility] Comment: . INR 2.2 11/18/2019 12:25 PM COPY TECHNICIAN [facility] Comment: Suggested INR Therapeutic Ranges* Intensity ?Standard ?Higher ? 2.0-3.0 ? 2.5-3.5 *Target INR should be individualized. Occasionally, INR range 3.0-4.5 may be appropriate. Higher intensity INR: Mechanical heart valve, etc. Specimen Anatomical Collection Method Collection Time Receive d Time (Source) Location / / Volume Laterality Blood (Blood, 11/18/2019 9:23 AM 11/18/19 20 Venous) COPY TECHNICIAN 12:05 PM COPY TECHNICIAN D. Hang Carpenter MD LAB BLOOD ORDERABLES Performing Organization Address City/State/ZIP Code Phon e Number [facility] [address] [place] [address] documented in this encounter Visit Diagnoses Diagnosis Other pulmonary embolism without acute c or pulmonale, unspecified chronicity (HCC) documented in this encounter Additional Health Concerns Infection Onset Date Last Indicated Resolved Time MSSA 10/04/2018 10/04/2018 06/28/2022 8:27 AM CDT documented as of this encounter Care Teams Hard Metals Engraver Hand Relationship Specialty Start Date End Date Adarsh Carpenter MD PCP - General 05/07/[address] [place] [address] documented as of this encounter
--- OUTSIDE RECORDS SUMMARY | 2022-06-30 08:29 | XMS_ITS | Encounter Summary ---
:1960 Author Organization [facility] Address [address] [place] [address] Care Team Providers Name Role Phone Adarsh Carpenter MD Primary Care Provider Reason for Visit Reason Onset Date Comments Constipation Rx 10/16/2019 Encounter Details Date Type Department Care Team Description 10/16/2019 Telephone [place] Adarsh Carpenter MD Constipation Rx [address] [place], [place] [address] [place], [place] [phone] (Wo rk) Social History Tobacco Use Types [...] Telephone Encounter - Sofia Denson RN - 10/16/2019 12:18 PM CST Patients said they are using a Senna 25mg tablet PO 1-2 times daily PRN for constipation. Rx pended for review. OR PROPERTY MANAGER Telephone Encounter - Veronica Glez - 10/16/2019 11:44 AM CST Pt's Nelia called stating an 8.6ml of the Senna was at [facility] pharmacy and he is needing the 25ml Senna for his constipation. Please call Nelia at [phone] to advise. OR PROPERTY MANAGER documented in this encounter Plan of Treatment Not on filedocumented as of this encounter Visit Diagnoses Diagnosis Constipation, unspecified constipation t ype - Primary documented in this encounter Additional Health Concerns Infection Onset Date Last Indicated Resolved Time MSSA 10/04/2018 10/04/2018 06/28/2022 8:27 AM CDT documented as of this encounter Care Teams Formstone Fitter Relationship Specialty Start Date End Date Adarsh Carpenter MD PCP - General 05/07/[address] [place] [address] documented as of this encounter
--- OUTSIDE RECORDS SUMMARY | 2022-06-30 08:29 | XMS_ITS | Encounter Summary ---
:1960 Author Organization [facility] Address [address] [place] [address] Care Team Providers Name Role Phone Adarsh Carpenter MD Primary Care Provider Encounter Details Date Type Department Care Team Description 11/17/2019 Anticoagulation - [place] Ena Erwin Other pu lmonary Warfarin Visit Anticoag/Internal L., RN embolism without Medicine - Third [address] pulmonale, [address] [place], [place] [address] chronicity (HCC) [address] Social History Tobacco Use [...] 1 to 4 times per year 04/01 sabianism services? Do you belong to any clubs [...] as of this encounter Progress Notes Ena Erwni RN - 11/17/2019 4:05 PM CST Anticoagulation Clinic - RN Protocol Screening INR RESULTS: INR (no units) Date Value 11/17/2019 4.0 DOSE PLAN: No Maintenance Plan, Hold 11/17/19, Recheck 11/18/19. DOSE CHANGE: HOLD 11/17/19 Recheck 11/18/19 NEXT INR: 1 day; 11/18/19. VERIFY PREVIOUS DOSE PLAN Verified MISSED/EXTRA DOSES No MEDICATION CHANGES Yes, taking 1 or 2 Tylenol a day over the last few days DIET OR ALCOHOL CHANGES No RECENT ILLNESS/ HOSPITALIZATIONS No ABNORMAL BLEEDING OR BRUISING No FALLS OR INJURIES No NEW PAIN SYMPTOMS No NEW SHORTNESS OF BREATH No NEW NEUROLOGICAL SYMPTOMS No INR results reviewed. Verbalized understanding of anticoagulation dose plan and next INR. Instructed to call with any questions or concerns. [facility] faxed INR results, instructions, and orders to [facility]. YSIS MANAGER documented in this encounter Plan of Treatment Not on filedocumented as of this encounter Visit Diagnoses Diagnosis Other pulmonary embolism without acute c or pulmonale, unspecified chronicity (HCC) documented in this encounter Additional Health Concerns Infection Onset Date Last Indicated Resolved Time MSSA 10/04/2018 10/04/2018 06/28/2022 8:27 AM CDT documented as of this encounter Care Teams Professor Of Theater Relationship Specialty Start Date End Date Adarsh Carpenter MD PCP - General 05/07/[address] [place] [address] documented as of this encounter
--- OUTSIDE RECORDS SUMMARY | 2022-06-30 08:29 | XMS_ITS | Encounter Summary ---
:1960 Author Organization [facility] Address [address] [place] [address] Care Team Providers Name Role Phone Adarsh Carpenter MD Primary Care Provider Encounter Details Date Type Department Care Team Description 11/28/2019 Anticoagulation - [facility] AnticoTerri Denis Other pulmonary Warfarin Visit [address] [facility] Felecia RN embolism without [place], [place] [address] [address] [facility] pulmonale, [place] unspecified [address] chronicity (HCC) Social History Tobacco Use Types Packs/Day Years [...] encounter Progress Notes Terri Spivey RN - 11/28/2019 3:14 PM CST Anticoagulation Clinic - RN Protocol Screening INR RESULTS: INR (no units) Date Value 11/28/2019 2.3 DOSE PLAN: 5 mg every Mon, Fri; 2.5 mg all other days DOSE CHANGE: Maintenance dose was not establish NEXT INR: 12/05/2019 Plan reviewed and approved by [facility] provider Carlin Gee CNP VERIFY PREVIOUS DOSE PLAN Verified MISSED/EXTRA DOSES No MEDICATION CHANGES No DIET OR ALCOHOL CHANGES No RECENT ILLNESS/ HOSPITALIZATIONS No ABNORMAL BLEEDING OR BRUISING No FALLS OR INJURIES No NEW PAIN SYMPTOMS No NEW SHORTNESS OF BREATH No NEW NEUROLOGICAL SYMPTOMS No INR results reviewed. Verbalized understanding of anticoagulation dose plan and next INR. Instructed to call with any questions or concerns. ENT PRODUCTION SPECIALIST documented in this encounter Plan of Treatment Not on filedocumented as of this encounter Results (ABNORMAL) Protime-INR (12/05/2019 9:14 AM CONTENT PRODUCTION SPECIALIST) athologist Signature Protime 23.0 (H) 10.6 - 12.9 12/05/2019 [facility] 1:36 PM [facility] Comment: . INR 2.0 12/05/2019 1:36 PM CONTENT PRODUCTION SPECIALIST [facility] Comment: Suggested INR Therapeutic Ranges* Intensity ?Standard ?Higher ? 2.0-3.0 ? 2.5-3.5 *Target INR should be individualized. Occasionally, INR range 3.0-4.5 may be appropriate. Higher intensity INR: Mechanical heart valve, etc. Specimen Anatomical Collection Method Collection Time Receive d Time (Source) Location / / Volume Laterality Blood (Blood, 12/05/2019 9:14 AM 12/05/19 20 1:03 Venous) CONTENT PRODUCTION SPECIALIST PM CONTENT PRODUCTION SPECIALIST Jodi Gee APRN, CUPOLA TENDER HELPER LAB BLOOD ORDERABLES Performing Organization Address City/State/ZIP Code Phon e Number [facility] [address] [place] [phone] documented in this encounter Visit Diagnoses Diagnosis Other pulmonary embolism without acute c or pulmonale, unspecified chronicity (HCC) documented in this encounter Additional Health Concerns Infection Onset Date Last Indicated Resolved Time MSSA 10/04/2018 10/04/2018 06/28/2022 8:27 AM CDT documented as of this encounter Care Teams Food Operations Manager Relationship Specialty Start Date End Date Adarsh Carpenter MD PCP - General 05/07/[address] [place] [address] documented as of this encounter
--- OUTSIDE RECORDS SUMMARY | 2022-06-30 08:29 | XMS_ITS | Encounter Summary ---
:1960 Author Organization [facility] Address [address] [place] [address] Care Team Providers Name Role Phone Adarsh Carpenter MD Primary Care Provider Encounter Details Date Type Department Care Team Description 11/04/2019 Anticoagulation - SE Ena Erwin Other pu lmonary Warfarin Visit Anticoag/Internal L., RN embolism without Medicine - Third [address] pulmonale, [address] [place], [place] [address] chronicity (HCC) [address] Social History Tobacco Use [...] encounter Progress Notes Ena Erwin RN - 11/04/2019 3:31 PM CST Anticoagulation Clinic - RN Protocol Screening INR RESULTS: INR (no units) Date Value 11/04/2019 3.10 (A) DOSE PLAN: Unchanged; 5 mg every Mon, Wed, Fri; 2.,5 mg all other days. NEXT INR: 2 weeks; 11/18/2019. VERIFY PREVIOUS DOSE PLAN Verified MISSED DOSES No MEDICATION CHANGES No DIET OR ALCOHOL CHANGES No RECENT ILLNESS No ABNORMAL BLEEDING OR BRUISING No FALLS OR INJURIES No NEW PAIN SYMPTOMS No NEW SHORTNESS OF BREATH No NEW NEUROLOGICAL SYMPTOMS No INR results reviewed. Verbalized understanding of anticoagulation dose plan and next INR. NCING MACHINE SET UP WORKER documented in this encounter Plan of Treatment Not on filedocumented as of this encounter Procedures Procedure Name Priority Date/Time Associated Diagnosis Comme nts PROTIME-INR Routine 11/04/2019 Results for thi s procedure are in the resu lts section. documented in this encounter Results (ABNORMAL) Protime-INR (11/17/2019 9:15 AM BALANCING MACHINE SET UP WORKER) P athologist Signature Protime 47.4 (H) 10.6 - 12.9 11/17/2019 [facility] 12:45 PM [facility] Comment: . INR 4.0 11/17/2019 12:45 PM [facility] Comment: Suggested INR Therapeutic Ranges* Intensity ?Standard ?Higher ? 2.0-3.0 ? 2.5-3.5 *Target INR should be individualized. Occasionally, INR range 3.0-4.5 may be appropriate. Higher intensity INR: Mechanical heart valve, etc. Specimen Anatomical Collection Method Collection Time Receive d Time (Source) Location / / Volume Laterality Blood (Blood, 11/17/2019 9:15 AM 11/17/19 20 Venous) BALANCING MACHINE SET UP WORKER 12:15 PM BALANCING MACHINE SET UP WORKER Ti Ellison APRN, CNP LAB BLOOD ORDERABLES Performing Organization Address City/[facility]/ZIP Code Phon e Number [facility] [address] [place] [address] (ABNORMAL) Protime-INR (11/04/2019) athologist Signature INR 3.10 (A) 0.9 - 1.1 [facility] K[facility]AN [employer] Protime [facility] BILL F[facility]CHER Specimen (Source) Anatomical Location Collection Method / Collectio n Time Received Time / Laterality Volume Blood (Blood, Venous) Resulting Agency Comment [facility] nurse Adarsh Carpenter MD LAB BLOOD ORDERABLES Performing Organization Address City/[facility]/ZIP Code Phon e Number [facility] BILL F[facility]ER [address] [place] [address] documented in this encounter Visit Diagnoses Diagnosis Other pulmonary embolism without acute c or pulmonale, unspecified chronicity (HCC) documented in this encounter Additional Health Concerns Infection Onset Date Last Indicated Resolved Time MSSA 10/04/2018 10/04/2018 06/28/2022 8:27 AM CDT documented as of this encounter Care Teams Construction Rigger Relationship Specialty Start Date End Date Adarsh Carpenter MD PCP - General 05/07/[address] [place] [address] documented as of this encounter
--- OUTSIDE RECORDS SUMMARY | 2022-06-30 08:29 | XMS_ITS | Encounter Summary ---
:1960 Author Organization [facility] Address [address] [place] [address] Care Team Providers Name Role Phone Adarsh Carpenter MD Primary Care Provider Encounter Details Date Type Department Care Team Description 10/21/2019 Anticoagulation - [facility] Anticoag Ena Erwin Other pulmonary Warfarin Visit [address] [facility] Dayne RN embolism without [place], [place] [address] [address] [facility] pulmonale, [place], [place] unspecified [address] chronicity (HCC) Social History Tobacco Use Types [...] encounter Progress Notes Ena Erwin RN - 10/21/2019 11:25 AM CST INR: 3.2 per [facility] nurse call Dose: Unchanged; 5 mg every Mon, Wed, Fri; 2.5 mg all other days Recheck date: 2 weeks; 11/04/2019 Patient's nurse instructed to remain on current warfarin dose and recheck INR in 2 weeks. Patient's nurse verbalized understanding. Report FAXed.. 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 documented in this encounter Results (ABNORMAL) Protime-INR (10/21/2019) P athologist Signature INR 3.20 (A) 0.9 - 1.1 [facility] [employer] Protime [facility] BILL F[facility]CHER Specimen (Source) Anatomical Location Collection Method / Collectio n Time Received Time / Laterality Volume Blood (Blood, Venous) Resulting Agency Comment [facility] phone call Historical Provider LAB BLOOD ORDERABLES Performing Organization Address City/State/ZIP Code Phon e Number [facility]ILL [facility] [address] [place] [address] documented in this encounter Visit Diagnoses Diagnosis Other pulmonary embolism without acute c or pulmonale, unspecified chronicity (HCC) documented in this encounter Additional Health Concerns Infection Onset Date Last Indicated Resolved Time MSSA 10/04/2018 10/04/2018 06/28/2022 8:27 AM CDT documented as of this encounter Care Teams Water Leak Repairer Relationship Specialty Start Date End Date Adarsh Carpenter MD PCP - General 05/07/[address] [place] [address] documented as of this encounter
--- OUTSIDE RECORDS SUMMARY | 2022-06-30 08:29 | XMS_ITS | Encounter Summary ---
:1960 Author Organization [facility] Address [address] [place] [address] Care Team Providers Name Role Phone Adarsh Carpenter MD Primary Care Provider Encounter Details Date Type Department Care Team Description 11/25/2019 Lab [place] Other pulmonary embolism [address] without acute cor pulmonale, [place], [place] [address] unspecified chronicity (HCC) [phone] Social History Tobacco Use Types Packs/Day Years [...] Date/Time Associated Diagnosis Comme nts PROTIME-INR Routine 11/25/2019 9:42 AM Other pulmonary Result s for this QI SPECIALIST embolism without acute proce dure are in cor pulmonale, the results unspecified chronicity secti on. (HCC) documented in this encounter Results (ABNORMAL) Protime-INR (11/25/2019 9:42 AM QI SPECIALIST) P athologist Signature Protime 20.0 (H) 10.6 - 12.9 11/25/2019 [facility] 12:40 PM QI SPECIALIST [facility]ENTER [facility] Comment: . INR 1.7 11/25/2019 12:40 PM QI SPECIALIST [facility] Comment: Suggested INR Therapeutic Ranges* Intensity ?Standard ?Higher ? 2.0-3.0 ? 2.5-3.5 *Target INR should be individualized. Occasionally, INR range 3.0-4.5 may be appropriate. Higher intensity INR: Mechanical heart valve, etc. Specimen Anatomical Collection Method Collection Time Receive d Time (Source) Location / / Volume Laterality Blood (Blood, 11/25/2019 9:42 AM 11/25/19 20 Venous) QI SPECIALIST 12:09 PM QI SPECIALIST Ti Ellison APRN, PRODUCTION LINE WELDER LAB BLOOD ORDERABLES Performing Organization Address City/State/ZIP Code Phon e Number [facility] [address] [place] [address] documented in this encounter Visit Diagnoses Diagnosis Other pulmonary embolism without acute c or pulmonale, unspecified chronicity (HCC) documented in this encounter Additional Health Concerns Infection Onset Date Last Indicated Resolved Time MSSA 10/04/2018 10/04/2018 06/28/2022 8:27 AM CDT documented as of this encounter Care Teams Stave Hewer Relationship Specialty Start Date End Date Adarsh Carpenter MD PCP - General 05/07/[address] [place] [address] documented as of this encounter
--- OUTSIDE RECORDS SUMMARY | 2022-06-30 08:29 | XMS_ITS | Encounter Summary ---
:1960 Author Organization [facility] Address [address] [place] [address] Care Team Providers Name Role Phone Adarsh Carpenter MD Primary Care Provider Encounter Details Date Type Department Care Team Description 11/25/2019 Travel Social History Tobacco Use Types Packs/Day [...] or relatives? How often do you attend adventist or 1 to 4 times per year 04/01 roman catholic services? Do you belong to any clubs or No 04/24/2022 organizations such as adventist groups, unions, fraternal or athletic groups, or [...] documented as of this encounter Care Teams Telephone Directory Deliverer Relationship Specialty Start Date End Date Adarsh Carpenter MD PCP - General 05/07/[address] [place] [address] documented as of this encounter
--- OUTSIDE RECORDS SUMMARY | 2022-06-30 08:29 | XMS_ITS | Encounter Summary ---
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 Do you belong to any clubs [...] Progress Notes Ti Ellison APRN, CNP - 11/25/2019 5:52 PM CST INR: 1.7 Dose: 5 mg 11/25 and 11/26, 2.5 mg 11/27 Recheck date: 11/28/2019 Patient given above dosing instructions. His was also on the phone during conversation. Patientdenied any missed doses, but stated he only took half pill (2.5 mg) last night instead of 5 mg. Patient and verbalized understanding. BURNER documented in this encounter Plan of Treatment Not on filedocumented as of this encounter Results (ABNORMAL) Protime-INR (11/28/2019 9:49 AM CLAY BURNER) athologist Signature Protime 27.2 (H) 10.6 - 12.9 11/28/2019 [facility] 1:08 PM CLAY BURNER [facility] Comment: . INR 2.3 11/28/2019 1:08 PM CLAY BURNER [facility] Comment: Suggested INR Therapeutic Ranges* Intensity ?Standard ?Higher ? 2.0-3.0 ? 2.5-3.5 *Target INR should be individualized. Occasionally, INR range 3.0-4.5 may be appropriate. Higher intensity INR: Mechanical heart valve, etc. Specimen Anatomical Collection Method Collection Time Receive d Time (Source) Location / / Volume Laterality Blood (Blood, 11/28/2019 9:49 AM 11/28/19 20 Venous) CLAY BURNER 12:51 PM CLAY BURNER Ti Ellison APRN, BUDDER LAB BLOOD ORDERABLES Performing Organization Address City/State/ZIP Code Phon e Number [facility] [address] [place] [address] documented in this encounter Visit Diagnoses Diagnosis Other pulmonary embolism without acute c or pulmonale, unspecified chronicity (HCC) documented in this encounter Additional Health Concerns Infection Onset Date Last Indicated Resolved Time MSSA 10/04/2018 10/04/2018 06/28/2022 8:27 AM CDT documented as of this encounter Care Teams Mechanical Test Engineer Relationship Specialty Start Date End Date Adarsh Carpenter MD PCP - General 05/07/[address] [place] [address] documented as of this encounter
--- OUTSIDE RECORDS SUMMARY | 2022-06-30 08:30 | XMS_ITS | Encounter Summary ---
:1960 Author Organization [facility] Address [address] [place] [address] Care Team Providers Name Role Phone Adarsh Carpenter MD Primary Care Provider Encounter Details Date Type Department Care Team Description 09/02/2019 Telephone [place] Adarsh Carpenter MD [address] [place], [place] [address] [place], [place] [phone] [address] (Wo rk) Social History Tobacco Use Types [...] place to sleep or slept in a correction (including now)? Sex Assigned at Date Recorded Not on file documented as of this encounter Plan of Treatment Not on filedocumented as of this encounter Visit Diagnoses Not on filedocumented in this encounter Additional Health Concerns Infection Onset Date Last Indicated Resolved Time MSSA 10/04/2018 10/04/2018 06/28/2022 8:27 AM CDT documented as of this encounter Care Teams Ultrasound Tech Relationship Specialty Start Date End Date Adarsh Carpenter MD PCP - General 05/07/[address] [place] [address] documented as of this encounter
--- OUTSIDE RECORDS SUMMARY | 2022-06-30 08:30 | XMS_ITS | Encounter Summary ---
:1960 Author Organization [facility] Address [address] [place] [address] Care Team Providers Name Role Phone Adarsh Carpenter MD Primary Care Provider Encounter Details Date Type Department Care Team Description 08/08/2019 Anticoagulation - [facility] Anticoag [place], Other pulmonary Warfarin Visit [address] [facility] Salina Strong RN embolism without [place], [place] [address] acute [place] [address] [facility] pulmonale, [place], [place] unspecified [phone] chronicity ([facility]) Social History Tobacco Use Types Packs/Day Years [...] or relatives? How often do you attend islam or 1 to 4 times per year 04/01 confucianism services? Do you belong to any clubs or No 04/24/2022 organizations such as islam groups, unions, fraternal or athletic groups, or [...] documented as of this encounter Progress Notes Sailna Pratt RN - 08/08/2019 3:48 PM CST Pt's called in for pt's INR results today of 3.1. ACC gave instructions for the pt to stop Lovenox injections, take warfarin 5 mg every MWF, 2.5 mg all other days, add in greens to his diet consistently, and recheck his INR in 1 week. AVS mailed. TOP SUPPORT ASSOCIATE documented in this encounter Plan of Treatment Not on filedocumented as of this encounter Results (ABNORMAL) Protime-INR (08/15/2019 9:00 AM DESKTOP SUPPORT ASSOCIATE) P athologist Signature Protime 64.0 (H) 10.6 - 12.9 08/15/2019 [facility] 12:42 PM [facility] Comment: . INR 5.4 08/15/2019 12:42 PM [facility] Comment: Suggested INR Therapeutic Ranges* Intensity ?Standard ?Higher ? 2.0-3.0 ? 2.5-3.5 *Target INR should be individualized. Occasionally, INR range 3.0-4.5 may be appropriate. Higher intensity INR: Mechanical heart valve, etc. Specimen Anatomical Collection Method Collection Time Receive d Time (Source) Location / / Volume Laterality Blood (Blood, 08/15/2019 9:00 AM 08/15/20 19 Venous) DESKTOP SUPPORT ASSOCIATE 12:17 PM DESKTOP SUPPORT ASSOCIATE Adarsh Carpenter MD LAB BLOOD ORDERABLES Performing Organization Address City/State/ZIP Code Phon e Number [facility] [address] [place] [address] documented in this encounter Visit Diagnoses Diagnosis Other pulmonary embolism without acute c or pulmonale, unspecified chronicity (HCC) documented in this encounter Additional Health Concerns Infection Onset Date Last Indicated Resolved Time MSSA 10/04/2018 10/04/2018 06/28/2022 8:27 AM CDT documented as of this encounter Care Teams Hydrographical Technical Officer Relationship Specialty Start Date End Date Adarsh Carpenter MD PCP - General 05/07/[address] [place] [address] documented as of this encounter
--- OUTSIDE RECORDS SUMMARY | 2022-06-30 08:30 | XMS_ITS | Encounter Summary ---
:[address] [facility] Address [address] [place] [address] Care Team Providers Name Role Phone Adarsh Carpenter MD Primary Care Provider Encounter Details Date Type Department Care Team Description 08/25/2019 Lab [place] Other pulmonary embolism [address] without acute cor pulmonale, [place], [place] [address] unspecified chronicity (HCC) [phone] Social History Tobacco Use Types Packs/Day Years [...] or relatives? How often do you attend amish or 1 to 4 times per year 04/01 voodoo services? Do you belong to any clubs or No 04/24/2022 organizations such as amish groups, unions, fraternal or athletic groups, or [...] Date/Time Associated Diagnosis Comme nts PROTIME-INR Routine 08/25/2019 9:13 AM Other pulmonary Result s for this SYSTEM PROGRAMMER embolism without acute proce dure are in cor pulmonale, the results unspecified chronicity secti on. (HCC) documented in this encounter Results (ABNORMAL) Protime-INR (08/25/2019 9:13 AM SYSTEM PROGRAMMER) P athologist Signature Protime 32.1 (H) 10.6 - 12.9 08/25/2019 [facility] 12:50 PM SYSTEM PROGRAMMER [facility] Comment: . INR 2.7 08/25/2019 12:50 PM SYSTEM PROGRAMMER [facility] Comment: Suggested INR Therapeutic Ranges* Intensity ?Standard ?Higher ? 2.0-3.0 ? 2.5-3.5 *Target INR should be individualized. Occasionally, INR range 3.0-4.5 may be appropriate. Higher intensity INR: Mechanical heart valve, etc. Specimen Anatomical Collection Method Collection Time Receive d Time (Source) Location / / Volume Laterality Blood (Blood, 08/25/2019 9:13 AM 08/25/20 19 Venous) SYSTEM PROGRAMMER 12:10 PM SYSTEM PROGRAMMER D. Hang Carpenter MD LAB BLOOD ORDERABLES Performing Organization Address City/State/ZIP Code Phon e Number [facility] [address] [place] [address] documented in this encounter Visit Diagnoses Diagnosis Other pulmonary embolism without acute c or pulmonale, unspecified chronicity (HCC) documented in this encounter Additional Health Concerns Infection Onset Date Last Indicated Resolved Time MSSA 10/04/2018 10/04/2018 06/28/2022 8:27 AM CDT documented as of this encounter Care Teams Docent Coordinator Relationship Specialty Start Date End Date Adarsh Carpenter MD PCP - General 05/07/[address] [place] [address] documented as of this encounter
--- OUTSIDE RECORDS SUMMARY | 2022-06-30 08:30 | XMS_ITS | Encounter Summary ---
:1960 Author Organization [facility] Address [address] [place] [address] Care Team Providers Name Role Phone Adarsh Carpenter MD Primary Care Provider Reason for Visit Reason Onset Date Comments Status update 08/29/2019 Encounter Details Date Type Department Care Team Description 08/29/2019 Telephone [place] Adarsh Carpenter MD Status update [address] [place], [place] [address] [place], [place] [phone] (Wo rk) Social History Tobacco Use Types [...] Telephone Encounter - Sofia Denson RN - 09/03/2019 9:13 AM CST Patient informed. UCE WEIGHER Telephone Encounter - Adarsh Carpenter MD - 09/02/2019 4:58 PM CST Just a bit difficult to say what would cause all the change in his stool pattern. As long as he is currently feeling good and things are getting somewhat back to normal then I would do any thing different at the moment. UCE WEIGHER Telephone Encounter - Vidhya Bain LPN - 09/02/2019 4:30 PM CST Nelia stated that the last day that he had the cottage cheese BM was August 30. Since than he has been having liquid BM's and all weekend they have been diarrhea. Today they are stiffening up. He has not had the cottage cheese BM again. No odor during the white / cottage cheese BM's. Nelia is wondering what it could be related too. Overall he is feeling really good. His appetite has been a little less. Just had a little bit of lunch today. UCE WEIGHER Telephone Encounter - Jacqueline Rodriguez APRN, SOLAR ENERGY SPECIALIST - 08/30/2019 9:02 AM PRODUCE WEIGHER The patient reports he had a bowel movement last night with the lactulose. UCE WEIGHER Telephone Encounter - Vidhya Bain LPN - 08/29/2019 4:10 PM CST Rectal clear discharge. Its cottage cheese looking and clear water. She gave him colace last night. Lactulose 3 hours ago. Getting ready to give him Milk of Magnesium. Its been at least a week since he has had a BM. Spoke to Nelia and she is going to get a bottle of Magnesium Citrate to try on Dhruv. If anything changes or symptoms of fever, abdominal pain, abdominal distention, nausea or vomiting, they will take Dhruv straight to the nearest ER. Please advise on clear rectal fluid discharge on Sunday. UCE WEIGHER Telephone Encounter - Veronica Glez - 08/29/2019 3:39 PM CST Pt's Nelia called stating he had another passing of the same clear, white stuff she had talked with Bon Rodriguez about at her appt on Sunday (Bon told Nelia she was going to talk with Dr. Carpenter about it) and he has not had a bowel movement in about week now. Please call Nelia at [phone]. UCE WEIGHER documented in this encounter Plan of Treatment Not on filedocumented as of this encounter Visit Diagnoses Not on filedocumented in this encounter Additional Health Concerns Infection Onset Date Last Indicated Resolved Time MSSA 10/04/2018 10/04/2018 06/28/2022 8:27 AM CDT documented as of this encounter Care Teams Wastewater Technician Relationship Specialty Start Date End Date Adarsh Carpenter MD PCP - General 05/07/[address] [place] [address] documented as of this encounter
--- OUTSIDE RECORDS SUMMARY | 2022-06-30 08:30 | XMS_ITS | Encounter Summary ---
:1960 Author Organization [facility] Address [address] [place] [address] Care Team Providers Name Role Phone Adarsh Carpenter MD Primary Care Provider Encounter Details Date Type Department Care Team Description 09/16/2019 Anticoagulation - [facility] Anticoag [place], Other pulmonary Warfarin Visit [address] [facility] Beatriz Dykes RN embolism without [place], [place] [address] acute [address] pulmonale, [place], [place] unspecified [phone] chronicity (HCC) Social History Tobacco Use Types [...] 1 to 4 times per year 04/01 taoist services? Do you belong to any clubs [...] documented as of this encounter Progress Notes Beatriz Ochoa RN - 09/16/2019 1:48 PM CST INR=4.3 Warfarin dose: HOLD 09/16; 5 mg Sun; 2.5 mg the rest of the days Recheck INR on 09/22/19. Patient and his were on speaker phone and notified of INR results, warfarin dosing and INR recheck instructions per phone call. No sign of bleeding. They verbalized understanding of instructions. AVS mailed. RANCE LICENSING SUPERVISOR documented in this encounter Plan of Treatment Not on filedocumented as of this encounter Procedures Procedure Name Priority Date/Time Associated Diagnosis Comme nts PROTIME-INR Routine 09/16/2019 Results for thi s procedure are in the resu lts section. documented in this encounter Results (ABNORMAL) Protime-INR (09/16/2019) P athologist Signature INR 4.30 (A) 0.9 - 1.1 [facility] Protime [facility] Specimen (Source) Anatomical Location Collection Method / Collectio n Time Received Time / Laterality Volume Blood (Blood, Venous) Resulting Agency Comment [facility] lab fax Historical Provider LAB BLOOD ORDERABLES Performing Organization Address City/State/ZIP Code Phon e Number [facility] [address] [place] [address] documented in this encounter Visit Diagnoses Diagnosis Other pulmonary embolism without acute c or pulmonale, unspecified chronicity (HCC) documented in this encounter Additional Health Concerns Infection Onset Date Last Indicated Resolved Time MSSA 10/04/2018 10/04/2018 06/28/2022 8:27 AM CDT documented as of this encounter Care Teams Open Hearth Worker Relationship Specialty Start Date End Date Adarsh Carpenter MD PCP - General 05/07/[address] [place] [address] documented as of this encounter
--- OUTSIDE RECORDS SUMMARY | 2022-06-30 08:30 | XMS_ITS | Encounter Summary ---
:1960 Author Organization [facility] Address [address] [place] [address] Care Team Providers Name Role Phone Adarsh Alfonso MD Primary Care Provider Reason for Visit Reason Onset Date Comments RX 10/09/2019 Encounter Details Date Type Department Care Team Description 10/09/2019 Telephone [place] Adarsh Alfonso MD RX [address] [place], [place] [address] [place], [place] [phone] (Wo rk) Social History Tobacco Use Types [...] this encounter Miscellaneous Notes Telephone Encounter - Xin Main RN - 10/10/2019 1:04 PM CST Left a detailed message for mercedes. IDING JUDGE Telephone Encounter - Adarsh Alfonso MD - 10/10/2019 11:52 AM CST Done let patient know that we stopped the Rx for Sennakot and just ordered for Senna IDING JUDGE Addendum Note - Adarsh Alfonso MD - 10/10/2019 11:52 AM PRESIDING JUDGE Addended by: Adarsh ALFONSO on: 10/10/2019 11:52 AM Modules accepted: Orders IDING JUDGE Telephone Encounter - Vidhya Bain LPN - 10/10/2019 11:04 AM CST Please write for a prescription for: PER MERCEDES AND Senna 25mg once PO daily, may increase to BID PRN due to constipation. Pharmacy: [facility] [place] IDING JUDGE Telephone Encounter - Xin Main RN - 10/10/2019 10:27 AM CST LMTCB IDING JUDGE Telephone Encounter - Adarsh Alfonso MD - 10/09/2019 3:01 PM CST Let Mercedes know that I sent to [facility] for Sennakot which is both senna and colace together. The instructions are for one a day though it can be increased to twice a day if needed. If this is too much and they wish to go to just plain senna without the stool softener we could do this and she could let us know. IDING JUDGE Telephone Encounter - Sofia Denson RN - 10/09/2019 10:56 AM CST Please advise. IDING JUDGE Telephone Encounter - Patria Freeman - 10/09/2019 10:50 AM CST Mercedes from [facility] is wondering if RX for Senna 25mg can be sent to [facility]. You can reach her at [phone]. IDING JUDGE documented in this encounter Plan of Treatment Not on filedocumented as of this encounter Visit Diagnoses Diagnosis Chronic idiopathic constipation - Primar y Unspecified constipation documented in this encounter Additional Health Concerns Infection Onset Date Last Indicated Resolved Time MSSA 10/04/2018 10/04/2018 06/28/2022 8:27 AM CDT documented as of this encounter Care Teams Life Scientist Relationship Specialty Start Date End Date Adarsh Alfonso MD PCP - General 05/07/[address] [place] [address] documented as of this encounter
--- OUTSIDE RECORDS SUMMARY | 2022-06-30 08:30 | XMS_ITS | Encounter Summary ---
:1960 Author Organization [facility] Address [address] [place] [address] Care Team Providers Name Role Phone Adarsh Carpenter MD Primary Care Provider Encounter Details Date Type Department Care Team Description 09/10/2019 Orders Only [place] Adarsh Carpenter Frequency of [address] MD Hang micturition (Primary [place], [place] [address] Dx) [phone] [place] [address] Social History Tobacco Use Types Packs/Day Years [...] of this encounter Results (ABNORMAL) Urine culture (clean catch) (09/10/2019 11:[address] RECORDER) [facility] Method Time Signature Urine Culture Enterobacter cloacae 09/12/2019 [facility] >100,000 cfu/ml 9:[address] RECORDER [facility] Specimen Anatomical Collection Method Collection Time Receive d Time (Source) Location / / Volume Laterality Saenz Insert 09/10/2019 11:24 09/11/2019 2:[address] COURT RECORDER Narrative [facility] - 08/31 9:[address] RECORDER Patient does not have an Amoxicillin or PCN allergy Organism Antibiotic Method Susceptibility Enterobacter cloacae Ampicillin >16 mcg/mL: Resistant Enterobacter cloacae Ampicillin/Sulbactam >16/8 mcg/mL: Resistant Enterobacter cloacae Cefazolin >16 mcg/mL: Resistant Enterobacter cloacae Cefotaxime <=2 mcg/mL: Susceptible Enterobacter cloacae Ceftriaxone 8 mcg/mL: R esistant Enterobacter cloacae Cefuroxime 8 mcg/mL: R esistant Enterobacter cloacae Ciprofloxacin <=1 mcg/mL: Susceptible Enterobacter cloacae Gentamicin <=4 mcg/mL: Susceptible Enterobacter cloacae Levofloxacin <=2 mcg/mL: Susceptible Enterobacter cloacae Nitrofurantoin 64 mcg/mL: Intermediate Enterobacter cloacae Piperacillin/Tazobactam <=1 6 mcg/mL: Susceptible Enterobacter cloacae Tetracycline <=4 mcg/mL: Susceptible Enterobacter cloacae Trimeth/Sulfa <=2/38 mcg/ mL: Susceptible Adarsh Carpenter MD LAB MICROBIOLOGY - GENERAL O RDERABLES Performing Organization Address City/State/ZIP Code Phon e Number [facility] [address] [place] [address] (ABNORMAL) Urinalysis with reflex microscopic (09/10/2019 11:[address] RECORDER) [facility] Method Time Signature Type CLEAN CATCH 09/10/2019 [facility] 11:[address] [place] [place] Color, Urine TEE (A) YELLOW 09/10/2019 [facility] 11:[address] [place] Clarity, HAZY (A) CLEAR 09/10/2019 [facility] Urine 11:[address] [place] Glucose, NEGATIVE NEGATIVE 09/10/2019 [facility] Urine mg/dL 11:[address] [place] Bilirubin, NEGATIVE NEGATIVE 09/10/2019 [facility] Urine 11:[address] [place] Ketones, NEGATIVE NEGATIVE 09/10/2019 [facility] Urine mg/dL 11:[address] [place] Specific 1.025 1.000 09/10/2019 [facility] [place], ->=1.030 11:[address] [place] [place] Urine Blood, Urine SMALL (A) NEGATIVE 09/10/2019 [facility] 11:[address] [place] pH, Urine 6.0 5.0 - 7.0 09/10/2019 [facility] 11:[address] [place] Protein, NEGATIVE NEGATIVE-TRA 09/10/2019 [facility] Urine CE mg/dL 11:[address] [place] Urobilinogen, 0.2 0.2 - 1.0 09/10/2019 [facility] Urine E.U./dL 11:[address] [place] [place] Nitrite, POSITIVE (A) NEGATIVE 09/10/2019 [facility] Urine 11:[address] [place] Leukocytes, MODERATE (A) NEGATIVE 09/10/2019 [facility] Urine 11:[address] [place]ORDER [place] Specimen Anatomical Collection Method Collection Time Receive d Time (Source) Location / / Volume Laterality Urine (Urine, 09/10/2019 11:24 09/10/2019 Clean Catch) AM COURT RECORDER 11:[address] RECORDER DLatanya Carpenter MD LAB URINE ORDERABLES Performing Organization Address City/State/ZIP Code Phon e Number [facility] [place] [address] [place] [address] documented in this encounter Visit Diagnoses Diagnosis Frequency of micturition Urinary frequency Frequency of micturition - Primary Urinary frequency documented in this encounter Additional Health Concerns Infection Onset Date Last Indicated Resolved Time MSSA 10/04/2018 10/04/2018 06/28/2022 8:27 AM CDT documented as of this encounter Care Teams Wood Pole Treater Relationship Specialty Start Date End Date Adarsh Carpenter MD PCP - General 05/07/[address] [place] [address] documented as of this encounter
--- OUTSIDE RECORDS SUMMARY | 2022-06-30 08:30 | XMS_ITS | Encounter Summary ---
:1960 Author Organization [facility] Address [address] [place] [address] Care Team Providers Name Role Phone Adarsh Carpenter MD Primary Care Provider Reason for Visit Reason Onset Date Comments Antibiotic change 09/12/2019 Encounter Details Date Type Department Care Team Description 09/12/2019 Telephone OM Deanna Shelley RN Antibiotic change [address] [place] [address] [place] [address] Social History Tobacco Use Types Packs/Day Years [...] this encounter Miscellaneous Notes Telephone Encounter - Deanna Lincoln RN - 09/12/2019 11:[address] Carpenter called to let us know that he had to change Dwain's antibiotic from Macrobid to Cipro r/t sensitivities. He is already scheduled for an INR check on Sunday09/15/19, which is when we would have wanted one done after starting this antibiotic. IAL EDUCATION PROFESSIONAL documented in this encounter Plan of Treatment Not on filedocumented as of this encounter Visit Diagnoses Not on filedocumented in this encounter Additional Health Concerns Infection Onset Date Last Indicated Resolved Time MSSA 10/04/2018 10/04/2018 06/28/2022 8:27 AM CDT documented as of this encounter Care Teams Credentialing Assistant Relationship Specialty Start Date End Date Adarsh Carpenter MD PCP - General 05/07/[address] [place] [address] documented as of this encounter
--- OUTSIDE RECORDS SUMMARY | 2022-06-30 08:30 | XMS_ITS | Encounter Summary ---
:1960 Author Organization [facility] Address [address] [place] [address] Care Team Providers Name Role Phone Adarsh Carpenter MD Primary Care Provider Encounter Details Date Type Department Care Team Description 09/10/2019 Orders Only [place] Adarsh Carpenter Cystitis (Primary Dx) [address] MD Hang [place], [place] [address] [address] [address] [place] [phone] [place] [address] Social History Tobacco Use Types Packs/Day Years [...] 1 to 4 times per year 04/01 baptism services? Do you belong to any clubs [...] of this encounter Visit Diagnoses Diagnosis Cystitis - Primary Unspecified cystitis documented in this encounter Additional Health Concerns Infection Onset Date Last Indicated Resolved Time MSSA 10/04/2018 10/04/2018 06/28/2022 8:27 AM CDT documented as of this encounter Care Teams Head Bucker Relationship Specialty Start Date End Date Adarsh Carpenter MD PCP - General 05/07/[address] [place] [address] documented as of this encounter
--- OUTSIDE RECORDS SUMMARY | 2022-06-30 08:30 | XMS_ITS | Encounter Summary ---
:1960 Author Organization [facility] Address [address] [place] [address] Care Team Providers Name Role Phone Adarsh Carpenter MD Primary Care Provider Encounter Details Date Type Department Care Team Description 08/15/2019 Lab [place] Other pulmonary embolism [address] without acute cor pulmonale, [place], [place] [address] unspecified chronicity (HCC) [phone] Social History Tobacco Use Types Packs/Day Years [...] Date/Time Associated Diagnosis Comme nts PROTIME-INR Routine 08/15/2019 9:00 AM Other pulmonary Result s for this ENVIRONMENTAL ENGINEERING AIDE embolism without acute proce dure are in cor pulmonale, the results unspecified chronicity secti on. (HCC) documented in this encounter Results (ABNORMAL) Protime-INR (08/15/2019 9:00 AM ENVIRONMENTAL ENGINEERING AIDE) P athologist Signature Protime 64.0 (H) 10.6 - 12.9 08/15/2019 [facility] 12:42 PM ENVIRONMENTAL ENGINEERING AIDE [facility] Comment: . INR 5.4 08/15/2019 12:42 PM ENVIRONMENTAL ENGINEERING AIDE [facility] Comment: Suggested INR Therapeutic Ranges* Intensity ?Standard ?Higher ? 2.0-3.0 ? 2.5-3.5 *Target INR should be individualized. Occasionally, INR range 3.0-4.5 may be appropriate. Higher intensity INR: Mechanical heart valve, etc. Specimen Anatomical Collection Method Collection Time Receive d Time (Source) Location / / Volume Laterality Blood (Blood, 08/15/2019 9:00 AM 08/15/20 19 Venous) ENVIRONMENTAL ENGINEERING AIDE 12:17 PM ENVIRONMENTAL ENGINEERING AIDE D. Hang Carpenter MD LAB BLOOD ORDERABLES Performing Organization Address City/State/ZIP Code Phon e Number [facility] [address] [place] [address] documented in this encounter Visit Diagnoses Diagnosis Other pulmonary embolism without acute c or pulmonale, unspecified chronicity (HCC) documented in this encounter Additional Health Concerns Infection Onset Date Last Indicated Resolved Time MSSA 10/04/2018 10/04/2018 06/28/2022 8:27 AM CDT documented as of this encounter Care Teams Motorcycle Police Relationship Specialty Start Date End Date Adarsh Carpenter MD PCP - General 05/07/[address] [place] [address] documented as of this encounter
--- OUTSIDE RECORDS SUMMARY | 2022-06-30 08:30 | XMS_ITS | Encounter Summary ---
:1960 Author Organization [facility] Address [address] [place] [address] Care Team Providers Name Role Phone Adarsh Carpenter MD Primary Care Provider Reason for Visit Reason Onset Date Comments BP 08/08/2019 Encounter Details Date Type Department Care Team Description 08/08/2019 Telephone [place] Adarsh Carpenter MD BP [address] [place], [place] [address] [place], [place] [phone] (Wo rk) Social History Tobacco Use Types [...] or relatives? How often do you attend moravian or 1 to 4 times per year 04/01 restoration services? Do you belong to any clubs or No 04/24/2022 organizations such as moravian groups, unions, fraternal or athletic groups, or [...] Telephone Encounter - Sofia Denson RN - 08/08/2019 9:25 AM CST FYI ING MAN Telephone Encounter - Patria Freeman - 08/08/2019 9:22 AM CST Patients wanted to let Dr. Hang Carpenter know that [facility] blood pressure is back to normal. No return call necessary. ING MAN documented in this encounter Plan of Treatment Not on filedocumented as of this encounter Visit Diagnoses Not on filedocumented in this encounter Additional Health Concerns Infection Onset Date Last Indicated Resolved Time MSSA 10/04/2018 10/04/2018 06/28/2022 8:27 AM CDT documented as of this encounter Care Teams Public Health Informatician Relationship Specialty Start Date End Date Adarsh Carpenter MD PCP - General 05/07/[address] [place] [address] documented as of this encounter
--- OUTSIDE RECORDS SUMMARY | 2022-06-30 08:30 | XMS_ITS | Encounter Summary ---
:1960 Author Organization [facility] Address [address] [place] [address] Care Team Providers Name Role Phone Adarsh Carpenter MD Primary Care Provider Encounter Details Date Type Department Care Team Description 08/15/2019 Anticoagulation - [facility] Anticoag [place], Other pulmonary Warfarin Visit [address] [facility] Beatriz Dykes RN embolism without [place], [place] [address] pulmonale, [place], [place] unspecified [address] chronicity (HCC) Social History Tobacco Use Types [...] encounter Progress Notes Beatriz Ochoa RN - 08/15/2019 12:54 PM CST INR=5.4 Warfarin dose: HOLD 08/15-; 2.5 mg on 08/17. Recheck INR on 08/18. Patient's notified of INR results, warfarin dosing and INR recheck instructions per phone call.Patient was unavailable. She states he has had loose stools for the past few days. He is eating and staying hydrated. Safety precautions discussed. No bleeding. She verbalized understanding of instructi ons. CCO STRIPPING MACHINE OPERATOR documented in this encounter Plan of Treatment Not on filedocumented as of this encounter Results (ABNORMAL) Protime-INR (08/18/2019 9:29 AM TOBACCO STRIPPING MACHINE OPERATOR) P athologist Signature Protime 32.1 (H) 10.6 - 12.9 08/18/2019 [facility] 1:[address] [facility] Comment: . INR 2.7 08/18/2019 1:04 PM [facility] Comment: Suggested INR Therapeutic Ranges* Intensity ?Standard ?Higher ? 2.0-3.0 ? 2.5-3.5 *Target INR should be individualized. Occasionally, INR range 3.0-4.5 may be appropriate. Higher intensity INR: Mechanical heart valve, etc. Specimen Anatomical Collection Method Collection Time Receive d Time (Source) Location / / Volume Laterality Blood (Blood, 08/18/2019 9:29 AM 08/18/20 19 Venous) TOBACCO STRIPPING MACHINE OPERATOR 12:03 PM TOBACCO STRIPPING MACHINE OPERATOR D. Hang Carpenter MD LAB BLOOD ORDERABLES Performing Organization Address City/State/ZIP Code Phon e Number [facility] [address] [place] [address] documented in this encounter Visit Diagnoses Diagnosis Other pulmonary embolism without acute c or pulmonale, unspecified chronicity (HCC) documented in this encounter Additional Health Concerns Infection Onset Date Last Indicated Resolved Time MSSA 10/04/2018 10/04/2018 06/28/2022 8:27 AM CDT documented as of this encounter Care Teams Welding Machine Operator/Tender Relationship Specialty Start Date End Date Adarsh Carpenter MD PCP - General 05/07/[address] [place] [address] documented as of this encounter
--- OUTSIDE RECORDS SUMMARY | 2022-06-30 08:30 | XMS_ITS | Encounter Summary ---
:1960 Author Organization [facility] Address [address] [place] [address] Care Team Providers Name Role Phone Adarsh Carpenter MD Primary Care Provider Encounter Details Date Type Department Care Team Description 09/10/2019 [facility] Frequency of micturition [address] [place], [place] [address] Social History Tobacco Use [...] Date/Time Associated Diagnosis Comme nts URINALYSIS-MICROSCOP Routine 09/10/2019 11:24 Frequency of Res ults for this IC EXAM (REFLEXED) AM EARTHMOVING PLANT OPERATOR micturition procedure are in the results section. URINALYSIS WITH Routine 09/10/2019 11:24 Frequency of Results for this REFLEX MICROSCOPIC AM EARTHMOVING PLANT OPERATOR micturition procedure are in the results section. URINE CULTURE Routine 09/10/2019 11:24 Frequency of Results fo r this AM EARTHMOVING PLANT OPERATOR micturition procedure are i n the results section. documented in this encounter Results (ABNORMAL) Urinalysis-Microscopic Exam (09/10/2019 11:24 AM EARTHMOVING PLANT OPERATOR) Patholo gist Method Time Signature Casts, urine NONE SEEN 0-2 Hyaline 09/11/2019 VIRGIL /lpf 1:54 PM [facility] Significant NONE SEEN None Seen 09/11/2019 VIRGIL casts, urine /lpf 1:54 PM [facility] RBC, Urine 0-3 0 - 3 /hpf 09/11/2019 [facility] 1:54 PM [facility] WBC, Urine 51-100 /hpf 09/11/2019 VIR[facility] (A) 1:54 PM [facility] Comment: Male Ref Range ? 0-3/hpf Female Ref Range ?? 0-10/hpf Squamous Epithelial, NONE SEEN Few /lpf 09/11/2019 1:54 PM [facility] Urine [facility] Trans Epithelial, NONE SEEN 0 - 3 /hpf 09/11/2019 1:54 PM [facility] Urine [facility] Renal Tubular Cells, NONE SEEN 0 - 1 /hpf 09/11/2019 1:54 PM [facility] Urine [facility] Bacteria, Urine 2+ (A) None Seen 09/11/2019 1:54 PM [facility] /hpf [facility] Specimen Anatomical Collection Method Collection Time Receive d Time (Source) Location / / Volume Laterality 09/10/2019 11:24 09/11/2019 AM EARTHMOVING PLANT OPERATOR 12:09 PM EARTHMOVING PLANT OPERATOR Adarsh Carpenter MD LAB URINE ORDERABLES Performing Organization Address [facility] [place]/[facility]/ZIP Code Phon e Number [facility] [address] [place] [address] (ABNORMAL) Urine culture (clean catch) (09/10/2019 11:24 AM EARTHMOVING PLANT OPERATOR) [facility] Method Time Signature Urine Culture Enterobacter cloacae 09/12/2019 [facility] JOSE ELIAS >100,000 cfu/ml 9:12 AM EARTHMOVING PLANT OPERATOR [facility] (A) [facility] Specimen Anatomical Collection Method Collection Time Receive d Time (Source) Location / / Volume Laterality Saenz Insert 09/10/2019 11:24 09/11/2019 2:06 AM EARTHMOVING PLANT OPERATOR PM EARTHMOVING PLANT OPERATOR Narrative [facility] - 08/31 9:13 AM EARTHMOVING PLANT OPERATOR Patient does not have an Amoxicillin or [...] - GENERAL O RDERABLES Performing Organization Address City/[facility]/ZIP Code Phon e Number [facility] [address] [place] [address] (ABNORMAL) Urinalysis with reflex microscopic (09/10/2019 11:24 AM EARTHMOVING PLANT OPERATOR) [facility] Method Time Signature Type CLEAN CATCH 09/10/2019 [facility] 11:35 AM EARTHMOVING PLANT OPERATOR [place] Color, Urine TEE (A) YELLOW 09/10/2019 [facility] 11:35 AM EARTHMOVING PLANT OPERATOR [place] Clarity, HAZY (A) CLEAR 09/10/2019 [facility] Urine 11:35 AM EARTHMOVING PLANT OPERATOR [place] Glucose, NEGATIVE NEGATIVE 09/10/2019 [facility] Urine mg/dL 11:35 AM EARTHMOVING PLANT OPERATOR [place] Bilirubin, NEGATIVE NEGATIVE 09/10/2019 [facility] Urine 11:35 AM EARTHMOVING PLANT OPERATOR [place] Ketones, NEGATIVE NEGATIVE 09/10/2019 [facility] Urine mg/dL 11:35 AM EARTHMOVING PLANT OPERATOR [place] Specific 1.025 1.000 09/10/2019 [facility] [place], ->=1.030 11:35 AM EARTHMOVING PLANT OPERATOR [place] Urine Blood, Urine SMALL (A) NEGATIVE 09/10/2019 [facility] 11:35 AM EARTHMOVING PLANT OPERATOR [place] pH, Urine 6.0 5.0 - 7.0 09/10/2019 [facility] 11:35 AM EARTHMOVING PLANT OPERATOR [place] Protein, NEGATIVE NEGATIVE-TRA 09/10/2019 [facility] Urine CE mg/dL 11:35 AM EARTHMOVING PLANT OPERATOR [place] Urobilinogen, 0.2 0.2 - 1.0 09/10/2019 [facility] Urine E.U./dL 11:35 AM EARTHMOVING PLANT OPERATOR [place] Nitrite, POSITIVE (A) NEGATIVE 09/10/2019 [facility] Urine 11:35 AM EARTHMOVING PLANT OPERATOR [place] Leukocytes, MODERATE (A) NEGATIVE 09/10/2019 [facility] Urine 11:35 AM EARTHMOVING PLANT OPERATOR [place] Specimen Anatomical Collection Method Collection Time Receive d Time (Source) Location / / Volume Laterality Urine (Urine, 09/10/2019 11:24 09/10/2019 Clean Catch) AM EARTHMOVING PLANT OPERATOR 11:26 AM EARTHMOVING PLANT OPERATOR Adarsh Carpenter MD LAB URINE ORDERABLES Performing Organization Address City/State/ZIP Code Phon e Number [facility] [place] [address] [place] [address] documented in this encounter Visit Diagnoses Diagnosis Frequency of micturition Urinary frequency documented in this encounter Additional Health Concerns Infection Onset Date Last Indicated Resolved Time MSSA 10/04/2018 10/04/2018 06/28/2022 8:27 AM CDT documented as of this encounter Care Teams Help Desk Representative Relationship Specialty Start Date End Date Adarsh Carpenter MD PCP - General 05/07/[address] [place] [address] documented as of this encounter
--- OUTSIDE RECORDS SUMMARY | 2022-06-30 08:30 | XMS_ITS | Encounter Summary ---
:1960 Author Organization [facility] Address [address] [place] [address] Care Team Providers Name Role Phone Adarsh Carpenter MD Primary Care Provider Encounter Details Date Type Department Care Team Description 08/07/2019 Telephone [place] Adarsh Carpenter MD [address] [place], [place] [address] [place], [place] [phone] (Wo rk) Social History Tobacco Use Types [...] Telephone Encounter - Sofia Denson RN - 08/07/2019 3:54 PM CST Home care nurse called patient is 80/60. Not dizzy, skin warm and dry. He has been eating at drinking as usualTachycardic but she said this is not unusual for him. He has a mitchell catheter in with 1000cc output at 0900, 500cc output at 1100 and 100cc output now. Nurse reports that his urine is a dark marlene color, reports more yellow urine this am. Nurse said he said he doesn't feel quite like himselfyet. Patient was discharged from the hospital yesterday, he was in for sepsis and cystitis. Patient is currently on Ceftdinir 300mg BID. [phone] -[place] [facility] nurse. D RADIO TECHNICIAN documented in this encounter Plan of Treatment Not on filedocumented as of this encounter Visit Diagnoses Not on filedocumented in this encounter Additional Health Concerns Infection Onset Date Last Indicated Resolved Time MSSA 10/04/2018 10/04/2018 06/28/2022 8:27 AM CDT documented as of this encounter Care Teams Quarry Boss Relationship Specialty Start Date End Date Adarsh Carpenter MD PCP - General 05/07/[address] [place] [address] documented as of this encounter
--- OUTSIDE RECORDS SUMMARY | 2022-06-30 08:30 | XMS_ITS | Encounter Summary ---
:1960 Author Organization [facility] Address [address] [place] [address] Care Team Providers Name Role Phone Adarsh Carpenter MD Primary Care Provider Encounter Details Date Type Department Care Team Description 08/25/2019 Anticoagulation - [facility] AnticoTerri Denis Other pulmonary Warfarin Visit [address] [facility] Felecia RN embolism without [place], [place] [address] [address] [facility] pulmonale, [place], [place] unspecified [phone] chronicity (HCC) Social History Tobacco Use Types [...] 04/24/2022 organizations such as gnosticist groups, unions, fraternal or athletic groups, or [...] encounter Progress Notes Terri Spivey RN - 08/25/2019 2:23 PM CST Today's INR = 2.7 No change on dosing; 5 mg Mon, Wed, Fri; 2.5 mg all the other days Next INR recheck on 09/01/19 91 week) Spoke with patient, given his INR results, detailed instructions of his dosing, and next INR recheck. Patient verbalized understanding and AVS mailed to patient. ER SECURITY ADMINISTRATOR documented in this encounter Plan of Treatment Not on filedocumented as of this encounter Results (ABNORMAL) Protime-INR (11/18/2019 9:23 AM SERVER SECURITY ADMINISTRATOR) P athologist Signature Protime 25.9 (H) 10.6 - 12.9 11/18/2019 [facility] 12:25 PM [facility] Comment: . INR 2.2 11/18/2019 12:25 PM [facility] Comment: Suggested INR Therapeutic Ranges* Intensity ?Standard ?Higher ? 2.0-3.0 ? 2.5-3.5 *Target INR should be individualized. Occasionally, INR range 3.0-4.5 may be appropriate. Higher intensity INR: Mechanical heart valve, etc. Specimen Anatomical Collection Method Collection Time Receive d Time (Source) Location / / Volume Laterality Blood (Blood, 11/18/2019 9:23 AM 11/18/19 20 Venous) SERVER SECURITY ADMINISTRATOR 12:05 PM SERVER SECURITY ADMINISTRATOR DLatanya Carpenter MD LAB BLOOD ORDERABLES Performing Organization Address City/State/ZIP Code Phon e Number [facility] [address] [place] [address] documented in this encounter Visit Diagnoses Diagnosis Other pulmonary embolism without acute c or pulmonale, unspecified chronicity (HCC) documented in this encounter Additional Health Concerns Infection Onset Date Last Indicated Resolved Time MSSA 10/04/2018 10/04/2018 06/28/2022 8:27 AM CDT documented as of this encounter Care Teams Sieve Maker Relationship Specialty Start Date End Date Adarsh Carpenter MD PCP - General 05/07/[address] [place] [address] documented as of this encounter
--- OUTSIDE RECORDS SUMMARY | 2022-06-30 08:30 | XMS_ITS | Encounter Summary ---
:1960 Author Organization [facility] Address [address] [place] [address] Care Team Providers Name Role Phone Adarsh Carpenter MD Primary Care Provider Encounter Details Date Type Department Care Team Description 09/15/2019 Anticoagulation - [facility] Anticoag [place], Other pulmonary Warfarin Visit [address] [facility] Beatriz Dykes RN embolism without [place], [place] [address] pulmonale, [place], [place] unspecified [address] chronicity (HCC) Social History Tobacco Use Types [...] encounter Progress Notes Beatriz Ochoa RN - 09/15/2019 2:14 PM CST INR =7.3/ [facility] nurse Kathi call/POC. Agency faxed with warfarin dosing and INR recheck instructions. Warfarin dose: HOLD 09/15. Recheck 09/16. Nurse called and stated pt started Cipro bid x 7 days on 09/12. No signs of bleeding or bruising. Safety precautions discussed. She will do a venous draw tomorrow, 09/16 for results. COORDINATOR documented in this encounter Plan of Treatment Not on filedocumented as of this encounter Procedures Procedure Name Priority Date/Time Associated Diagnosis Comme nts PROTIME-INR Routine 09/15/2019 Results for thi s procedure are in the resu lts section. documented in this encounter Results (ABNORMAL) Protime-INR (09/15/2019) P athologist Signature INR 7.30 (A) 0.9 - 1.1 [facility] Protime [facility] Specimen (Source) Anatomical Location Collection Method / Collectio n Time Received Time / Laterality Volume Blood (Blood, Venous) Resulting Agency Comment [facility] nurse call Historical Provider LAB BLOOD ORDERABLES Performing Organization Address City/State/ZIP Code Phon e Number [facility] [address] [place] [address] documented in this encounter Visit Diagnoses Diagnosis Other pulmonary embolism without acute c or pulmonale, unspecified chronicity (HCC) documented in this encounter Additional Health Concerns Infection Onset Date Last Indicated Resolved Time MSSA 10/04/2018 10/04/2018 06/28/2022 8:27 AM CDT documented as of this encounter Care Teams Masonry Teacher Relationship Specialty Start Date End Date Adarsh Carpenter MD PCP - General 05/07/[address] [place] [address] documented as of this encounter
--- OUTSIDE RECORDS SUMMARY | 2022-06-30 08:30 | XMS_ITS | Encounter Summary ---
:1960 Author Organization [facility] Address [address] [place] [address] Care Team Providers Name Role Phone Adarsh Carpenter MD Primary Care Provider Encounter Details Date Type Department Care Team Description 09/29/2019 Anticoagulation - [facility] Anticoag [place], Other pulmonary Warfarin Visit [address] [facility] Salina Strong RN embolism without [place], [place] [address] [address] [facility] pulmonale, [place], [place] unspecified [phone] chronicity ([facility]) Social History Tobacco Use Types Packs/Day Years [...] 1 to 4 times per year 04/01 presybeterian services? Do you belong to any clubs [...] encounter Progress Notes Salina Pratt RN - 09/29/2019 2:55 PM CST INR: 3.2 Date: 09/29/19 Dose: 5 mg every MWF, 2.5 mg all other days Warfarin dose to remain the same Recheck date: 2 weeks, 10/13/19 [facility] faxed orders to [facility] with instructions for the patient to take warfarin as aboveand recheck an INR in 2 weeks. Pt's nurse was instructed to tell the patient to add in more greens to his diet consistently. BBER OPERATOR documented in this encounter Plan of Treatment Not on filedocumented as of this encounter Procedures Procedure Name Priority Date/Time Associated Diagnosis Comme nts PROTIME-INR Routine 09/29/2019 Results for thi s procedure are in the resu lts section. documented in this encounter Results (ABNORMAL) Protime-INR (09/29/2019) P athologist Signature INR 3.20 (A) 0.9 - 1.1 [facility] Protime [facility] Specimen (Source) Anatomical Location Collection Method / Collectio n Time Received Time / Laterality Volume Blood (Blood, 09/29/2019 Venous) Resulting Agency Comment INR-POC results called to [facility] by pt's No [facility] RN Historical Provider LAB BLOOD ORDERABLES Performing Organization Address City/State/ZIP Code Phon e Number [facility] [address] [place] [address] documented in this encounter Visit Diagnoses Diagnosis Other pulmonary embolism without acute c or pulmonale, unspecified chronicity (HCC) documented in this encounter Additional Health Concerns Infection Onset Date Last Indicated Resolved Time MSSA 10/04/2018 10/04/2018 06/28/2022 8:27 AM CDT documented as of this encounter Care Teams Telecom Sales Consultant Relationship Specialty Start Date End Date Adarsh Carpenter MD PCP - General 05/07/[address] [place] [address] documented as of this encounter
--- OUTSIDE RECORDS SUMMARY | 2022-06-30 08:30 | XMS_ITS | Encounter Summary ---
:1960 Author Organization [facility] Address [address] [place] [address] Care Team Providers Name Role Phone Adarsh Carpenter MD Primary Care Provider Encounter Details Date Type Department Care Team Description 09/10/2019 Telephone [place] Adarsh Carpenter MD [address] [place], [place] [address] [place], [place] [phone] (Wo rk) Social History Tobacco Use Types [...] Telephone Encounter - Sofia Denson RN - 09/10/2019 12:08 PM CST Nelia Informed. ET FLAP CREASING MACHINE OPERATOR Telephone Encounter - Sofia Denson RN - 09/10/2019 12:06 PM CST ----- Message from Adarsh Carpenter MD sent at 09/10/2019 12:06 PM POCKET FLAP CREASING MACHINE OPERATOR ----- Let Nelia know that it appears that Dhruv has another UTI infection. We will be culturing his urine but she can nut picker the antibiotic from [facility] that I have send in for him. If the culture shows anyresistent bacteria we will then need to change his meds but take the Macrobid one twice a day for now. ET FLAP CREASING MACHINE OPERATOR documented in this encounter Plan of Treatment Not on filedocumented as of this encounter Visit Diagnoses Not on filedocumented in this encounter Additional Health Concerns Infection Onset Date Last Indicated Resolved Time MSSA 10/04/2018 10/04/2018 06/28/2022 8:27 AM CDT documented as of this encounter Care Teams Assembly Machine Operator Relationship Specialty Start Date End Date Adarsh Carpenter MD PCP - General 05/07/[address] [place] [address] documented as of this encounter
--- OUTSIDE RECORDS SUMMARY | 2022-06-30 08:30 | XMS_ITS | Encounter Summary ---
:1960 Author Organization [facility] Address [address] [place] [address] Care Team Providers Name Role Phone Adarsh Carpenter MD Primary Care Provider Encounter Details Date Type Department Care Team Description 08/18/2019 Anticoagulation - [facility] Anticoag Shahid, Marley Condon, Other pulmonary Warfarin Visit [address] [facility] PharmD embolism without [place], [place] [address] [address] [facility] pulmonale, [place], [place] unspecified [address] chronicity (HCC) Social History Tobacco Use Types [...] or relatives? How often do you attend latter-day or 1 to 4 times per year 04/01 moravian services? Do you belong to any clubs or No 04/24/2022 organizations such as latter-day groups, unions, fraternal or athletic groups, or [...] documented as of this encounter Progress Notes Marley Key PharmD - 08/18/2019 1:28 PM CST INR: 2.7 Dose: Take 2.5 mg on 08/18, then resume 5 mg MWF; 2.5 mg all other days Recheck date: 08/25/19 Communicated above instructions with patient. Patient verbalized understanding. AVS mailed. ERY FACTORY WORKER documented in this encounter Plan of Treatment Not on filedocumented as of this encounter Results (ABNORMAL) Protime-INR (08/25/2019 9:13 AM JOINERY FACTORY WORKER) athologist Signature Protime 32.1 (H) 10.6 - 12.9 08/25/2019 [facility] 12:50 PM [facility] Comment: . INR 2.7 08/25/2019 12:50 PM [facility] Comment: Suggested INR Therapeutic Ranges* Intensity ?Standard ?Higher ? 2.0-3.0 ? 2.5-3.5 *Target INR should be individualized. Occasionally, INR range 3.0-4.5 may be appropriate. Higher intensity INR: Mechanical heart valve, etc. Specimen Anatomical Collection Method Collection Time Receive d Time (Source) Location / / Volume Laterality Blood (Blood, 08/25/2019 9:13 AM 08/25/20 19 Venous) JOINERY FACTORY WORKER 12:10 PM JOINERY FACTORY WORKER Adrash Carpenter MD LAB BLOOD ORDERABLES Performing Organization Address City/State/ZIP Code Phon e Number [facility] [address] [place] [address] documented in this encounter Visit Diagnoses Diagnosis Other pulmonary embolism without acute c or pulmonale, unspecified chronicity (HCC) documented in this encounter Additional Health Concerns Infection Onset Date Last Indicated Resolved Time MSSA 10/04/2018 10/04/2018 06/28/2022 8:27 AM CDT documented as of this encounter Care Teams Trim Setter Helper Relationship Specialty Start Date End Date Adarsh Carpenter MD PCP - General 05/07/[address] [place] [address] documented as of this encounter
--- OUTSIDE RECORDS SUMMARY | 2022-06-30 08:30 | XMS_ITS | Encounter Summary ---
:[address] [facility] Address [address] [place] [address] Care Team Providers Name Role Phone Adarsh Carpenter MD Primary Care Provider Reason for Visit Reason Comments Medicare Annual Wellness Visit Subsequent Encounter Details Date Type Department Care Team Description 08/11/2019 Office Visit [place] Medicare annual wellness [address] visit, subsequent (Primary [place], [place] [address] Dx) [phone] Social History Tobacco Use Types Packs/Day Years [...] Sign Reading Time Taken Comments Blood Pressure 112/72 08/11/2019 3:23 PM PLANT CONTROLLER Pulse 112 08/11/2019 3:23 PM PLANT CONTROLLER Temperature 36.8 ??C (98.2 ??F) 08/11/2019 3:23 PM PLANT CONTROLLER Respiratory Rate 16 08/11/2019 3:23 PM PLANT CONTROLLER Oxygen Saturation 94% 08/11/2019 3:23 PM PLANT CONTROLLER Inhaled Oxygen Concentration - - Weight 84.8 kg (186 lb 15.2 oz) 08/11/2019 3:23 PM PLANT CONTROLLER Height 185.4 cm (6' 0.99) 08/11/2019 3:23 PM PLANT CONTROLLER Body Mass Index 24.67 08/11/2019 3:23 PM PLANT CONTROLLER documented in this encounter Progress Notes Sandy Greco RN - 08/11/2019 2:00 PM CST Annual Wellness Visit CARE TEAM / RESOURCES: Patient Care Team: Adarsh Carpenter MD as PCP - General Eye Care: Several Years Dental Care: 2018 Pharmacy: [facility] - [place], [place] - [address] [address] [id number] - [place], [place] - [address] [facility] [address] [id number] - [address] [facility] [address] [place] [address] Other: [place] and other outside facilities as needed Visit Vitals BP 112/72 (BP Location: Left arm, Patient Position: Sitting) Pulse (!) 112 Temp 36.8 ??C (98.2 ??F) (Temporal) Resp 16 Ht 1.854 m (6' 0.99) Wt 84.8 kg (186 lb 15.2 oz) SpO2 94% BMI 24.67 kg/m?? Smoking Status Never Smoker BSA 2.09 m?? Allergies Allergen Reactions ??? Penicillins Other reaction(s): *Unknown - Pt Doesn't Remember, Other (see comments) Delirium, questionable anaphylactic reaction ??? Bee Venom ??? Penicillin V Potassium Outpatient Encounter Medications as of 08/11/2019 Medication Sig Dispense Refill ??? acetaminophen (TYLENOL) 500 MG tablet Take 500 mg by mouth if needed ??? Catheters (SELF-CATH STRAIGHT TIP) misc USE DIRECTED 120 each 11 ??? Ciprofloxacin (CIPRO PO) Take 1 tablet by mouth 2 (two) times a day ??? citalopram (CeleXA) 20 MG tablet Take 1/2 a day for the first ten days and then one a day thereafter for depression 30 tablet 2 ??? lactulose (CHRONULAC) 10 GM/15ML solution Take 15-30 ml up to three times per day or as directedor needed for constipation 1892 mL 10 ??? Menthol-Zinc Oxide (CALMOSEPTINE) 0.44-20.6 % ointment Apply to groin/buttocks daily prn rash (Patient not taking: Reported on 07/23/2019) 113 g 11 ??? multivitamin (THERAGRAN) tablet Take 1 tablet by mouth 1 (one) time each day ??? oxybutynin (DITROPAN) 5 MG tablet TAKE ONE TABLET BY MOUTH TWICE A DAY. PLEASE NOTE THE INCREASEIN DOSE 180 tablet 3 ??? warfarin (COUMADIN) 2.5 MG tablet Take 2.5 mg by mouth T, TH, S, S ??? warfarin (COUMADIN) 5 MG tablet Take 1 tablet (5 mg) PO daily on Mon, Wed, Fri; take 1/2 tablet (2.5 mg) on all other days and as directed by Anticoagulation clinic 64 tablet 3 No facility-administered encounter medications on file as of 08/11/2019. Immunization History Administered Date(s) Administered ??? Flu Vaccine High Dose 65yrs and Older IM 08/01/2017 ??? Influenza 6mo-49yrs Quad Preservative Free IM 07/29/2015, 07/11/2016, 08/27/2017 ??? Influenza Split 11/03/2009 ??? Influenza TIV (IM) 08/06/2014 ??? Influenza, Unspecified 11/03/2009, 07/29/2015, 07/11/2016, 08/01/2017 ??? Pneumococcal Conjugate 13-Valent 08/27/2017 ??? Pneumococcal Polysaccharide 08/06/2014 ??? Tdap 11/03/2002, 02/26/2014 Patient Active Problem List Diagnosis ??? Anemia ??? Family history of malignant neoplasm of gastrointestinal tract ??? 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 Moderate episode of recurrent major depressive disorder (HCC) ??? Multiple sclerosis (HCC) ??? Neuromuscular dysfunction of bladder ??? Pulmonary embolism (HCC) ??? Paraplegia (HCC) ??? Sensorineural hearing loss ??? Spastic paraparesis ??? Other pulmonary embolism without acute cor pulmonale (HCC) ??? Pressure injury of buttock, stage 1 Past Medical History: Diagnosis Date ??? Allergic [...] name: nelia ??? Number of children: 4 ??? Years of education: None ??? Highest education level: None Occupational History ??? Occupation: Disability Social Needs ??? Financial resource strain: Not hard at all ??? Food insecurity: Worry: Never true Inability: Never true ??? Transportation needs: Medical: No Non-medical: No Tobacco Use ??? Smoking status: Never Smoker ??? Smokeless tobacco: Former User Substance and Sexual Activity ??? Alcohol use: No Frequency: Never ??? Drug use: No ??? Sexual activity: Never Lifestyle ??? Physical activity: Days per week: 0 days Minutes per session: 0 min ??? Stress: To some extent Relationships ??? Social connections: Talks on phone: Three times a week Gets together: Three times a week Attends yarsani service: Never Active member of club or organization: No Attends meetings of clubs or organizations: Never Relationship status: ??? Intimate partner violence: Fear of current or ex partner: No Emotionally abused: No Physically abused: No Forced sexual activity: No Other Topics Concern ??? None Social History Narrative ??? None General Care Management Assessment completed with:: Patient, Spouse or significant other Enrolled in care management program:: No Living arrangement:: Spouse Support system:: Family, Friends, Neighbors, Spouse Family conflict:: No Type of residence:: Private residence Home care services:: Yes(Weekly Home Health Nurse Visits ) Equipment used at home:: Wheelchair Communication device:: No Financial problems:: No Transportation issues:: No Transportation means:: Accessible car Diet:: Regular Inadequate nutrition:: No Exercise:: Currently not exercising Inadequate activity/exercise:: Yes Medication adherence problem:: No Experiencing side effects from current medications:: No History of falls in last 6 months:: No Difficulty keeping appointments:: No Family aware of the patient's advance care planning wishes:: No Episcopalian or spiritual beliefs that impact treatment:: No Chronic pain:: No Pain Assessment Scored: 0-No pain and location: Utilization / Navigation of Health Care Systems: Frequent emergency room use (3+ / year). Referral to CCM (Care coordination management). PHQ-9 mental health screening performed. Scored: STEVE-7 anxiety screening performed. Scored: Mini-Cog test performed. Scored: CAGE-AID test performed. BMI/weight management reviewed. BMI: Body mass index is 24.67 kg/m??. Declined referral to nutrition education for BMI greater than 30. Fall Risk Assessment performed. Scored: Tug time: Unable to perform Fall Risk; Patient is wheelchair bound Declines referral for Physical Therapy for fall risk. Colon Cancer Screening: Last done: 2016 Due: 2021 Breast Cancer Screening: Last done: NA Osteoporosis Screening: Last done: NA/Patient declined Prostate Cancer Screening: Last done: Lab Results Component Value Date PSA 1.8 10/17/2016 Hepatitis C Screening: No results found for: HEPCAB Glaucoma Screening: Indicated AAA Screening: Not indicated Lung Cancer Screening: Not indicated Findings: Patient presents to clinic, accompanied by his , for subsequent Medicare Annual Wellness Visit. Patient was recently hospitalized for sepsis related to UTI. Patient is wheelchair bound and unable to walk. He has a home health care nurse visit his home each week to monitor vital signs. Patient doesin/out catheterizations which are managed well. At this time the patient declines referrals as he isdeconditioned from recent hospitalization and illness. Patient aware he can contact the clinic as needed for referrals. The following referral(s) were created: None. What [...] transfusion before 1991. ?? Those born between 1478-0950. Glaucoma: Medicare Part B (Medical Insurance) covers [...] meet ALL of these conditions: ?? They're 55-77. ?? They're asymptomatic (they don???t have signs or symptoms of lung cancer). ?? They're either a current smoker or have quit smoking within the last 15 years. ?? They have a tobacco smoking history of at least 30 ???pack years?? (an average of one pack a dayfor 30 years). T CONTROLLER documented in this encounter Plan of Treatment Not on filedocumented as of this encounter Visit Diagnoses Diagnosis Medicare annual wellness visit, subseque nt - Primary documented in this encounter Additional Health Concerns Infection Onset Date Last Indicated Resolved Time MSSA 10/04/2018 10/04/2018 06/28/2022 8:27 AM CDT documented as of this encounter Care Teams Pain Medicine Physician Relationship Specialty Start Date End Date Adarsh Carpenter MD PCP - General 05/07/[address] [place] [address] documented as of this encounter
--- OUTSIDE RECORDS SUMMARY | 2022-06-30 08:30 | XMS_ITS | Encounter Summary ---
:1960 Author Organization [facility] Address [address] [place] [address] Care Team Providers Name Role Phone Adarsh Carpenter MD Primary Care Provider Reason for Visit Reason Comments Follow-up Hospital follow up for latoya s Encounter Details Date Type Department Care Team Description 08/11/2019 [place] (multiple [place]) (HCC ) (Primary Dx); [address] MD Hang Kidney stones; [place], [place] [address] Depression, unspecified depr ession type [phone] [place] [address] Social History Tobacco Use Types Packs/Day Years [...] or relatives? How often do you attend catholic or 1 to 4 times per year 04/01 taoist services? Do you belong to any clubs or No 04/24/2022 organizations such as catholic groups, unions, fraternal or athletic groups, [...] Time Taken Comments Blood Pressure 112/72 08/11/2019 1:54 PM BABBITTER Pulse 112 08/11/2019 1:54 PM BABBITTER Temperature 36.8 ??C (98.2 ??F) 08/11/2019 1:54 PM BABBITTER Respiratory Rate 16 08/11/2019 1:54 PM BABBITTER Oxygen Saturation 94% 08/11/2019 1:54 PM BABBITTER Inhaled Oxygen Concentration - - Weight 84.8 kg (187 lb) 08/11/2019 1:54 PM BABBITTER Height 185.4 cm (6' 0.99) 08/11/2019 1:54 PM BABBITTER Body Mass Index 24.68 08/11/2019 1:54 PM BABBITTER documented in this encounter Progress Notes Adarsh Carpenter MD - 08/11/2019 2:00 PM CST Estab Patient Visit Subjective Patient ID: Dwain Hinds is a 59 y.o. male. HPI the patient is here today for follow-up of recent procedure and events in the last couple weeks plus a couple of new issues. The patient is our a 59-year-old individual who has had multiple sclerosis for greater than 15 years. In the last couple weeks he has had a couple of issues. Patient had a urosepsis event that was secondary to retained kidney stones. He was subsequently seen by his urologist and he had a procedure with the kidney stones being removed. Apparently there was a multitude of many many tiny and larger stones in his right kidney pelvis. The stones have been removed he still has a stent up in place that his will remove in a few days. Postprocedure he did have a febrile event but was short-lived lasted for maybe 24 hours and then hasnot returned. The patient and his brought up out if there is anything he could do to help prevent recurrent urinary tract infections and we stated that this is something that could be considered but would be best discussed with his urologist. The patient has had MS for 15+ years is not been seen by neurology for probably for 5 years because his disease course has been relatively stable. However there are potential new developments that could have taken place in the last couple years and as such they did bring up the thought that they wouldlike to reestablish a relationship with a neurologist. He was originally diagnosed and treated at [facility] in [place] as such he will be referred back there for that and to evaluate and consider for MRI scans of his head and neck and compared to previous ones to look for disease progression. All of this has been quite hard on the patient. He has not been on antidepressants previously or if he has this been many many years. But he does seem to have had some progression of his disease he is a little weaker in his upper body strength his mentation is just not quite back to where he was before this last episode of sepsis he is feeling more down and then more lethargic and just a little more depressed about everything and he like to be started on an antidepressant. We discussed regarding antidepressants which ones that he is we discussed having to titrate up slowly over time we discussed the fact that may take a couple of months to get a stable dose for him and we discussed the fact we may have to switch to a different categories to find some that works best forhim. Therefore we did elect to start him on Celexa 20 mg pill he will take half a pill once a day for 10 days and a full pill thereafter he has any problems he will let us know 1 month was given 2 refills and during that time either he or his will have to call to let us know how he is doing and whether we will move him up to the next higher dose. Ideally would like to go all the way up to 40 mg dailyif needed if there is positive response but titration up as indicated. If this 1 does not work I would then switch him to another SSRI within the same category of medications if that does not work thenwill try Wellbutrin. Review of Systems Objective Physical Exam Assessment/Plan Diagnoses and all orders for this visit: MS (multiple sclerosis) (HCC) Kidney stones Depression, unspecified depression type - citalopram (CeleXA) 20 MG tablet; Take 1/2 a day for the first ten days and then one a day thereafter for depression The assessment is as stated above and the plan is referral to [facility] neurology department for MS and to initiate on antidepressant therapy Consult time was 25 minutes and all 25 minutes was spent in review of his history review of his medications discussion of depression treatment of depression and coordination of cares. We will treat ITTER documented in this encounter Plan of Treatment Not on filedocumented as of this encounter Visit Diagnoses Diagnosis MS (multiple sclerosis) (HCC) - Primary Multiple sclerosis Kidney stones Calculus of kidney Depression, unspecified depression type documented in this encounter Additional Health Concerns Infection Onset Date Last Indicated Resolved Time [facility] 10/04/2018 10/04/2018 06/28/2022 8:27 AM CDT documented as of this encounter Care Teams Circuit Court Magistrate Relationship Specialty Start Date End Date Adarsh Carpenter MD PCP - General 05/07/[address] [place] [address] documented as of this encounter
--- OUTSIDE RECORDS SUMMARY | 2022-06-30 08:30 | XMS_ITS | Encounter Summary ---
:[address] [facility] Address [address] [place] [address] Care Team Providers Name Role Phone Adarsh Carpenter MD Primary Care Provider Reason for Visit Reason Onset Date Comments advanced analytics associate with questions 08/26/2019 Encounter Details Date Type Department Care Team Description [facility] advanced analytics associate with [address] [place] [address] [place] [address] [place] [phone] [place] [address] Social History Tobacco Use Types Packs/Day Years [...] Telephone Encounter - Salina Pratt RN - 08/26/2019 3:31 PM CST [facility] returned Mercedes's call regarding providing home INR-POC testing with this patient. [facility] called Mercedes's phone at [phone] and left a message for her to call [facility] back. HOP documented in this encounter Plan of Treatment Not on filedocumented as of this encounter Visit Diagnoses Not on filedocumented in this encounter Additional Health Concerns Infection Onset Date Last Indicated Resolved Time MSSA 10/04/2018 10/04/2018 06/28/2022 8:27 AM CDT documented as of this encounter Care Teams Director Smb Sales Relationship Specialty Start Date End Date Adasrh Carpenter MD PCP - General 05/07/[address] [place] [address] documented as of this encounter
--- OUTSIDE RECORDS SUMMARY | 2022-06-30 08:30 | XMS_ITS | Encounter Summary ---
:1960 Author Organization [facility] Address [address] [place] [address] Care Team Providers Name Role Phone Adarsh Carpenter MD Primary Care Provider Encounter Details Date Type Department Care Team Description 10/07/2019 Anticoagulation - [facility] Anticoag [place], Other pulmonary Warfarin Visit [address] [facility] Salina Strong RN embolism without [place], [place] [address] [address] [facility] pulmonale, [place] unspecified [address] chronicity ([facility]) Social History Tobacco Use Types [...] 1 to 4 times per year 04/01 mu-ism services? Do you belong to any clubs [...] encounter Progress Notes Salina Pratt RN - 10/07/2019 11:12 AM CST INR: 3.0 Date: 10/07/2019 Dose: 5 mg every MWF, 2.5 mg all other days Warfarin dose to remain the same Recheck date: 10/20/2019 Pt's sales and in home delivery specialist called [facility] with pt's INR today as above; dosing and next recheck date given to pt's nurse over the phone, and faxed to [facility]. ET RESEARCH CONSULTANT Beatriz Ochoa RN - 10/07/2019 11:12 AM CST Mercedes [facility]heeraj [facility] called and stated that she will not be able to go to patient's home today, but will check INR tomorrow, 10/21/2019 ET RESEARCH CONSULTANT documented in this encounter Plan of Treatment Not on filedocumented as of this encounter Procedures Procedure Name Priority Date/Time Associated Diagnosis Comme nts PROTIME-INR Routine 10/06/2019 Results for thi s procedure are in the resu lts section. documented in this encounter Results (ABNORMAL) Protime-INR (10/06/2019) P athologist Signature INR 3.00 (A) 0.9 - 1.1 [facility] amiando Protime [facility] amiando Specimen (Source) Anatomical Location Collection Method / Collectio n Time Received Time / Laterality Volume Blood (Blood, 10/06/2019 Venous) Resulting Agency Comment INR called to [facility] by pt's [facility] Historical Provider LAB BLOOD ORDERABLES Performing Organization Address City/State/ZIP Code Phon e Number [facility] [address] [place] [address] documented in this encounter Visit Diagnoses Diagnosis Other pulmonary embolism without acute c or pulmonale, unspecified chronicity (HCC) documented in this encounter Additional Health Concerns Infection Onset Date Last Indicated Resolved Time MSSA 10/04/2018 10/04/2018 06/28/2022 8:27 AM CDT documented as of this encounter Care Teams Algebraist Relationship Specialty Start Date End Date Adarsh Carpenter MD PCP - General 05/07/[address] [place] [address] documented as of this encounter
--- OUTSIDE RECORDS SUMMARY | 2022-06-30 08:30 | XMS_ITS | Encounter Summary ---
:1960 Author Organization [facility] Address [address] [place] [address] Care Team Providers Name Role Phone Adarsh Carpenter MD Primary Care Provider Encounter Details Date Type Department Care Team Description 09/22/2019 Anticoagulation - [facility] Anticoag Deanna Lincoln, Other pulmonary Warfarin Visit [address] [facility] RN embolism without [place], [place] [address] pulmonale, [place], [place] unspecified [id number] chronicity (HCC ) Social History Tobacco Use Types Packs/Day Years [...] documented as of this encounter Progress Notes Deanna Lincoln RN - 09/22/2019 4:36 PM CST INR: 2.3 DOSE: Change dosing to 5mg every Mon, Wed, Fri; 2.5mg all other days RECHECK DATE: 1 week 09/29/19 Communicated above instructions and faxed orders to [facility]. E LINER HELPER documented in this encounter Plan of Treatment Not on filedocumented as of this encounter Procedures Procedure Name Priority Date/Time Associated Diagnosis Comme nts PROTIME-INR Routine 09/22/2019 Results for thi s procedure are in the resu lts section. documented in this encounter Results (ABNORMAL) Protime-INR (09/22/2019) P athologist Signature INR 2.30 (A) 0.9 - 1.1 [facility] [place] Protime [facility] KHAN ELIAN Specimen (Source) Anatomical Location Collection Method / Collectio n Time Received Time / Laterality Volume Blood (Blood, 09/22/2019 Venous) Resulting Agency Comment [facility] (peripheral draw) p lissy call Historical Provider LAB BLOOD ORDERABLES Performing Organization Address City/State/ZIP Code Phon e Number [facility] [address] [place] [address] documented in this encounter Visit Diagnoses Diagnosis Other pulmonary embolism without acute c or pulmonale, unspecified chronicity (HCC) documented in this encounter Additional Health Concerns Infection Onset Date Last Indicated Resolved Time MSSA 10/04/2018 10/04/2018 06/28/2022 8:27 AM CDT documented as of this encounter Care Teams Manager Career Relationship Specialty Start Date End Date Adarsh Carpenter MD PCP - General 05/07/[address] [place] [address] documented as of this encounter
--- OUTSIDE RECORDS SUMMARY | 2022-06-30 08:30 | XMS_ITS | Encounter Summary ---
:1960 Author Organization [facility] Address [address] [place] [address] Care Team Providers Name Role Phone Adarsh Carpenter MD Primary Care Provider Reason for Referral Consultation (Routine) - Closed Specialty Diagnoses / Procedures Referred By Contact Refer red To Contact Diagnoses MS (multiple sclerosis) ([facility]) Adarsh Carpenter MD [facility] - Referrals [address] [place] [address], [place] [phone] Referral ID Status Reason Start Date Expiration Date Visits Requ ested Visits Authorized [id number] Closed 08/12/2019 08/12/2020 1 1 TY FIRE BOSS Encounter Details Date Type Department Care Team Description 08/12/2019 Telephone Adarsh Weaver MD [address] [place], [place] [address] [place], [place] [phone] (Wo rk) Social History Tobacco Use Types [...] 04/24/2022 organizations such as religion groups, unions, fraHoozOn or athletic groups, or school groups? How [...] Telephone Encounter - Sofia Denson RN - 08/15/2019 9:05 AM CST Spoke to patient, he was contacted by the neurology department to start the triage process. They should be contacting them to set up an appointment if able. TY FIRE BOSS Telephone Encounter - Sofia Denson RN - 08/13/2019 9:30 AM CST Hold. Will contact patient in a few days to ensure they have heard from [facility]. TY FIRE BOSS Telephone Encounter - Adarsh Carpenter MD - 08/12/2019 5:42 PM CST I have called Nelia to let her know the expect a phone call from [facility]. TY FIRE BOSS Telephone Encounter - Sofia Denson RN - 08/12/2019 11:38 AM CST Spoke to the neurology department scheduling and gave them your name for the referral. They will contact the patient to complete their triage process and then send this to their providers for review tosee if they can offer him an appointment. They do not require testing to be done prior to evaluationby their providers. They will contact the patient. Nothing further for us to at this time. Please place referral into epic for [facility] neurology for documentation purposes. TY FIRE BOSS Telephone Encounter - Sofia Denson RN - 08/12/2019 8:27 AM CST ----- Message from Adarsh Carpenter MD sent at 08/12/2019 8:24 AM SAFETY FIRE BOSS ----- Dhruv has previously been seen by [facility] Neurology Department for his MS. He hasn't been seen for manyyears and would like to be referred back to re- establish cares. First contact [facility] Neurology department and see if they would be willing to accept him as a patient again. If so, then ask them if theywould like him to have an MRI scan of his Brain and Cervical spine or just the first one. Then ask are they OK with his having the MRI scans done in either [facility] or would they want them done in [facility]. Then, do they want me to order these MRI scans or would they want to order these tests or have him see the Neurologist first. Let me know. TY FIRE BOSS documented in this encounter Plan of Treatment Scheduled Referrals Name Type Priority Associated Order Schedule Diagnoses Ambulatory External Outpatient Referral Routine MS (multiple O rdered: Referral sclerosis) (HCC) 08/12/2019 documented as of this encounter Visit Diagnoses Diagnosis MS (multiple sclerosis) (HCC) - Primary Multiple sclerosis documented in this encounter Additional Health Concerns Infection Onset Date Last Indicated Resolved Time MSSA 10/04/2018 10/04/2018 06/28/2022 8:27 AM CDT documented as of this encounter Care Teams Copyright Clerk Relationship Specialty Start Date End Date Adarsh Carpenter MD PCP - General 05/07/[address] [place] [address] documented as of this encounter
--- OUTSIDE RECORDS SUMMARY | 2022-06-30 08:30 | XMS_ITS | Encounter Summary ---
:1960 Author Organization [facility] Address [address] [place] [address] Care Team Providers Name Role Phone Adarsh Carpenter MD Primary Care Provider Encounter Details Date Type Department Care Team Description 08/18/2019 Lab [place] Other pulmonary embolism [address] without acute cor pulmonale, [place], [place] [address] unspecified chronicity (HCC) [phone] Social History Tobacco Use Types Packs/Day Years [...] Date/Time Associated Diagnosis Comme nts PROTIME-INR Routine 08/18/2019 9:29 AM Other pulmonary Result s for this STRATEGY DIRECTOR embolism without acute proce dure are in cor pulmonale, the results unspecified chronicity secti on. (HCC) documented in this encounter Results (ABNORMAL) Protime-INR (08/18/2019 9:29 AM STRATEGY DIRECTOR) P athologist Signature Protime 32.1 (H) 10.6 - 12.9 08/18/2019 [facility] 1:04 PM STRATEGY DIRECTOR CENTER LABORATORY Comment: . INR 2.7 08/18/2019 1:04 PM STRATEGY DIRECTOR [facility] Comment: Suggested INR Therapeutic Ranges* Intensity ?Standard ?Higher ? 2.0-3.0 ? 2.5-3.5 *Target INR should be individualized. Occasionally, INR range 3.0-4.5 may be appropriate. Higher intensity INR: Mechanical heart valve, etc. Specimen Anatomical Collection Method Collection Time Receive d Time (Source) Location / / Volume Laterality Blood (Blood, 08/18/2019 9:29 AM 08/18/20 19 Venous) STRATEGY DIRECTOR 12:03 PM STRATEGY DIRECTOR D. Hang Carpenter MD LAB BLOOD ORDERABLES Performing Organization Address City/State/ZIP Code Phon e Number [facility] [address] [place] [phone] documented in this encounter Visit Diagnoses Diagnosis Other pulmonary embolism without acute c or pulmonale, unspecified chronicity (HCC) documented in this encounter Additional Health Concerns Infection Onset Date Last Indicated Resolved Time MSSA 10/04/2018 10/04/2018 06/28/2022 8:27 AM CDT documented as of this encounter Care Teams Golf Manager Relationship Specialty Start Date End Date Adarsh Carpenter MD PCP - General 05/07/[address] [place] [address] documented as of this encounter
--- OUTSIDE RECORDS SUMMARY | 2022-06-30 08:30 | XMS_ITS | Encounter Summary ---
:1960 Author Organization [facility] Address [address] [place] [address] Care Team Providers Name Role Phone Adarsh Carpenter MD Primary Care Provider Encounter Details Date Type Department Care Team Description 09/12/2019 Orders Only [place] Urinary tract infection [address] [place] associated [place] [address] catheteriza tion of urinary [address] [place] tract, unspecified [phone] Rudy Fischer, [place] [address] catheter type, initial [phone] encounter ([facility]) (Primary (Work) Dx) Social History Tobacco Use Types Packs/Day Years [...] 1 to 4 times per year 04/01 sikh services? Do you belong to any clubs [...] as of this encounter Visit Diagnoses Diagnosis Urinary tract infection associated with catheterization of urinary tract, unspecified indwelling urinary catheter type, initia l encounter (HCC) - Primary documented in this encounter Additional Health Concerns Infection Onset Date Last Indicated Resolved Time MSSA 10/04/2018 10/04/2018 06/28/2022 8:27 AM CDT documented as of this encounter Care Teams Training Technician Relationship Specialty Start Date End Date Adarsh Carpenter MD PCP - General 05/07/[address] [place] [address] documented as of this encounter
--- OUTSIDE RECORDS SUMMARY | 2022-06-30 08:30 | XMS_ITS | Encounter Summary ---
:1960 Author Organization [facility] Address [address] [place] [address] Care Team Providers Name Role Phone Adarsh Carpenter MD Primary Care Provider Encounter Details Date Type Department Care Team Description 09/01/2019 Anticoagulation - [facility] Anticoag Deanna Lincoln, Other pulmonary Warfarin Visit [address] [facility] RN embolism without [place], [place] [address] [place] [address] pul[address], [place], [place] unspecified [address] chronicity (HCC ) Social History Tobacco Use [...] or relatives? How often do you attend pentecostal or 1 to 4 times per year 04/01 temple services? Do you belong to any clubs or No 04/24/2022 organizations such as pentecostal groups, unions, fraternal or athletic groups, or [...] encounter Progress Notes Deanna Lincoln RN - 09/01/2019 4:53 PM CST INR: 2.7 per phone call Marifer [facility] DOSE: Continue 5mg every Mon, Wed, Fri; 2.5mg all other days RECHECK DATE: 09/15/19 Communicated above instructions with Marifer from [facility] she verbalized understanding. FAXED orders to [facility]. [facility] took over Dhruv's INR draws on 08/26/19 and have been contacting Dr Carpenter directly for orders. Will FAX orders from [facility] to [facility] office FAX [phone] starting today. Office [phone], Marifer [phone]. NDING SUPERVISOR documented in this encounter Plan of Treatment Not on filedocumented as of this encounter Procedures Procedure Name Priority Date/Time Associated Diagnosis Comme nts PROTIME-INR Routine 09/01/2019 Results for thi s procedure are in the resu lts section. documented in this encounter Results (ABNORMAL) Protime-INR (09/01/2019) P athologist Signature INR 2.70 (A) 0.9 - 1.1 BuildMyMove Protime [email or web address] [facility] Specimen (Source) Anatomical Location Collection Method / Collectio n Time Received Time / Laterality Volume Blood (Blood, 09/01/2019 Venous) Resulting Agency Comment [facility] Phone Call Marifer Historical Provider LAB BLOOD ORDERABLES Performing Organization Address City/State/ZIP Code Phon e Number [email or web address] [address] [place] [address] documented in this encounter Visit Diagnoses Diagnosis Other pulmonary embolism without acute c or pulmonale, unspecified chronicity (HCC) documented in this encounter Additional Health Concerns Infection Onset Date Last Indicated Resolved Time MSSA 10/04/2018 10/04/2018 06/28/2022 8:27 AM CDT documented as of this encounter Care Teams Sharepoint Net Developer Relationship Specialty Start Date End Date Adarsh Carpenter MD PCP - General 05/07/[address] [place] [address] documented as of this encounter
--- OUTSIDE RECORDS SUMMARY | 2022-06-30 08:30 | XMS_ITS | Encounter Summary ---
:1960 Author Organization [facility] Address [address] [place] [address] Care Team Providers Name Role Phone Adarsh Carpenter MD Primary Care Provider Encounter Details Date Type Department Care Team Description 08/08/2019 Lab [place] Other pulmonary embolism [address] without acute cor pulmonale, [place], [place] [address] unspecified chronicity (HCC) [phone] Social History Tobacco Use Types Packs/Day Years [...] Date/Time Associated Diagnosis Comme nts PROTIME-INR Routine 08/08/2019 9:18 AM Other pulmonary Result s for this ORACLE WEBCENTER CONSULTANT embolism without acute proce dure are in cor pulmonale, the results unspecified chronicity secti on. (HCC) documented in this encounter Results (ABNORMAL) Protime-INR (08/08/2019 9:18 AM ORACLE WEBCENTER CONSULTANT) P athologist Signature Protime 37.2 (H) 10.6 - 12.9 08/08/2019 [facility] 1:58 PM ORACLE WEBCENTER CONSULTANT CENTER LABORATORY Comment: . INR 3.1 08/08/2019 1:58 [address] ORACLE WEBCENTER CONSULTANT [facility] Comment: Suggested INR Therapeutic Ranges* Intensity ?Standard ?Higher ? 2.0-3.0 ? 2.5-3.5 *Target INR should be individualized. Occasionally, INR range 3.0-4.5 may be appropriate. Higher intensity INR: Mechanical heart valve, etc. Specimen Anatomical Collection Method Collection Time Receive d Time (Source) Location / / Volume Laterality Blood (Blood, 08/08/2019 9:18 AM 08/08/20 19 Venous) ORACLE WEBCENTER CONSULTANT 12:18 PM ORACLE WEBCENTER CONSULTANT Ti Ellison APRN, [employer] LAB BLOOD ORDERABLES Performing Organization Address City/State/ZIP Code Phon e Number [facility] [address] [place] [address] documented in this encounter Visit Diagnoses Diagnosis Other pulmonary embolism without acute c or pulmonale, unspecified chronicity (HCC) documented in this encounter Additional Health Concerns Infection Onset Date Last Indicated Resolved Time MSSA 10/04/2018 10/04/2018 06/28/2022 8:27 AM CDT documented as of this encounter Care Teams Health Education Coordinator Relationship Specialty Start Date End Date Adarsh Carpenter MD PCP - General 05/07/[address] [place] [address] documented as of this encounter
--- OUTSIDE RECORDS SUMMARY | 2022-06-30 08:30 | XMS_ITS | Encounter Summary ---
:[address] [facility] Address [address] [place] [address] Care Team Providers Name Role Phone Adarsh Carpenter MD Primary Care Provider Reason for Visit Reason Onset Date Comments Return call 10/10/2019 Encounter Details Date Type Department Care Team Description 10/10/2019 Telephone [place] Adarsh Carpenter MD Return call [address] [place], [place] [address] [place], [place] [phone] (Wo rk) Social History Tobacco Use Types [...] or relatives? How often do you attend yazidi or 1 to 4 times per year 04/01 mormon services? Do you belong to any clubs or No 04/24/2022 organizations such as yazidi groups, unions, fraternal or athletic groups, or [...] Encounter - Vidhya Bain LPN - 10/10/2019 11:05 AM CST See other note RECONDITIONER Telephone Encounter - Patria Freeman - 10/10/2019 8:05 AM CST Mercedes from [facility] is returning call to nurse from yesterday. You can reach her at [phone]. RECONDITIONER documented in this encounter Plan of Treatment Not on filedocumented as of this encounter Visit Diagnoses Not on filedocumented in this encounter Additional Health Concerns Infection Onset Date Last Indicated Resolved Time MSSA 10/04/2018 10/04/2018 06/28/2022 8:27 AM CDT documented as of this encounter Care Teams Assessor Relationship Specialty Start Date End Date Adarsh Carpenter MD PCP - General 05/07/[address] [place] [address] documented as of this encounter
--- OUTSIDE RECORDS SUMMARY | 2022-06-30 08:31 | XMS_ITS | Encounter Summary ---
:[address] [facility] Address [address] [place] [address] Care Team Providers Name Role Phone Adarsh Carpenter MD Primary Care Provider Reason for Visit Reason Comments Med Refill Encounter Details Date Type Department Care Team Description 06/04/2019 Refill [place] Adarsh Carpenter, Neurogenic bladder [address] (Primary Dx) [place], [place] [address] [phone] [place] [address] Social History Tobacco Use Types Packs/Day Years Used Date Never Smoker Smokeless Tobacco: Current User Alcohol Use Standard [...] this encounter Miscellaneous Notes Telephone Encounter - Camryn Paul MA - 06/06/2019 1:55 PM CDT Last visit in Provider Department: 05/07/2019 Upcoming appointment with Provider: Visit date not found Last Rx: Requested Prescriptions Pending Prescriptions Disp Refills ??? Catheters (SELF-CATH STRAIGHT TIP) misc [Pharmacy Med Name: SELF-CATH STRAIGHT TIPPED CA MISC] 120 each 11 Sig: USE DIRECTED documented in this encounter Plan of Treatment Not on filedocumented as of this encounter Visit Diagnoses Diagnosis Neurogenic bladder - Primary Neurogenic bladder, NOS documented in this encounter Additional Health Concerns Infection Onset Date Last Indicated Resolved Time MSSA 10/04/2018 10/04/2018 06/28/2022 8:27 AM CDT documented as of this encounter Care Teams Scientific Informatics Project Leader Relationship Specialty Start Date End Date Adarsh Carpenter MD PCP - General 05/07/[address] [place] [address] documented as of this encounter
--- OUTSIDE RECORDS SUMMARY | 2022-06-30 08:31 | XMS_ITS | Encounter Summary ---
:1960 Author Organization [facility] Address [address] [place] [address] Care Team Providers Name Role Phone Adarsh Carpenter MD Primary Care Provider Reason for Visit Reason Onset Date Comments Overnight oximetry 07/25/2019 Encounter Details Date Type Department Care Team Description 07/25/2019 Telephone [place] Adarsh Carpenter, Overnight oximetry [address] [place], [place] [address] [facility] 20 [place] [phone] [place] [address] (Wo rk) Social History Tobacco Use Types [...] Notes Telephone Encounter - Veronica Glez - 08/06/2019 8:27 AM CST Paperwork and face sheet faxed to [facility]. Original sent to scanning, copy kept in dated file drawerper Sofia guidry. ACCOUNTING MANAGER Telephone Encounter - Sofia Denson RN - 08/06/2019 8:17 AM CST Please fax paperwork to [facility] and send to scanning. ACCOUNTING MANAGER Telephone Encounter - Adarsh Carpenter MD - 08/05/2019 4:19 PM CST Paper work filled out and signed and in your box. ACCOUNTING MANAGER Telephone Encounter - Sofia Denson RN - 08/05/2019 3:19 PM CST Do you still have this paperwork? ACCOUNTING MANAGER Telephone Encounter - Vidhya Bain LPN - 08/01/2019 2:13 PM CDT Paperwork at providers desk again. Telephone Encounter - Patria Freeman - 07/30/2019 8:35 AM CDT Paperwork not at the front office attendant. Has this been taken care of? Telephone Encounter - Vidhya Bain LPN - 07/25/2019 3:10 PM CDT Please fax overnight documented in this encounter Plan of Treatment Not on filedocumented as of this encounter Visit Diagnoses Not on filedocumented in this encounter Additional Health Concerns Infection Onset Date Last Indicated Resolved Time MSSA 10/04/2018 10/04/2018 06/28/2022 8:27 AM CDT documented as of this encounter Care Teams Analytical Data Miner Relationship Specialty Start Date End Date Adarsh Carpenter MD PCP - General 05/07/[address] [place] [address] documented as of this encounter
--- OUTSIDE RECORDS SUMMARY | 2022-06-30 08:31 | XMS_ITS | Encounter Summary ---
:1960 Author Organization [facility] Address [address] [place] [address] Care Team Providers Name Role Phone Adarsh Carpenter MD Primary Care Provider Encounter Details Date Type Department Care Team Description 07/31/2019 Lab [place] Other pulmonary embolism [address] without acute cor pulmonale, [place], [place] [address] unspecified chronicity (HCC) [phone] Social History Tobacco Use Types Packs/Day Years [...] 1 to 4 times per year 04/01 orthodoxy services? Do you belong to any clubs [...] Date/Time Associated Diagnosis Comme nts PROTIME-INR Routine 07/31/2019 9:12 AM Other pulmonary Result s for this CDT embolism without acute proce dure are in cor pulmonale, the results unspecified chronicity secti on. (HCC) documented in this encounter Results (ABNORMAL) Protime-INR (07/31/2019 9:12 AM CDT) P athologist Signature Protime 13.3 (H) 10.6 - 12.9 07/31/2019 [facility] 12:52 PM CDT CENTER LABORATORY Comment: . INR 1.1 07/31/2019 12:52 PM CDT [facility] Comment: Suggested INR Therapeutic Ranges* Intensity ?Standard ?Higher ? 2.0-3.0 ? 2.5-3.5 *Target INR should be individualized. Occasionally, INR range 3.0-4.5 may be appropriate. Higher intensity INR: Mechanical heart valve, etc. Specimen Anatomical Collection Method Collection Time Receive d Time (Source) Location / / Volume Laterality Blood (Blood, 07/31/2019 9:12 AM 07/31/20 19 Venous) CDT 12:17 PM CDT Jodi Gee APRN, FOREIGN DIPLOMAT LAB BLOOD ORDERABLES Performing Organization Address City/State/ZIP Code Phon e Number [facility] [address] [place] [address] documented in this encounter Visit Diagnoses Diagnosis Other pulmonary embolism without acute c or pulmonale, unspecified chronicity (HCC) documented in this encounter Additional Health Concerns Infection Onset Date Last Indicated Resolved Time MSSA 10/04/2018 10/04/2018 06/28/2022 8:27 AM CDT documented as of this encounter Care Teams Sharepoint Application Architect Relationship Specialty Start Date End Date Adarsh Carpenter MD PCP - General 05/07/[address] [place] [address] documented as of this encounter
--- OUTSIDE RECORDS SUMMARY | 2022-06-30 08:31 | XMS_ITS | Encounter Summary ---
:1960 Author Organization [facility] Address [address] [place] [address] Care Team Providers Name Role Phone Adarsh Carpenter MD Primary Care Provider Encounter Details Date Type Department Care Team Description 06/13/2019 Lab [place] Other pulmonary embolism [address] without acute cor pulmonale, [place], [place] [address] unspecified chronicity (HCC) [phone] Social History Tobacco Use Types Packs/Day Years [...] Date/Time Associated Diagnosis Comme nts PROTIME-INR Routine 06/13/2019 9:10 AM Other pulmonary Result s for this CDT embolism without acute proce dure are in cor pulmonale, the results unspecified chronicity secti on. (HCC) documented in this encounter Results (ABNORMAL) Protime-INR (06/13/2019 9:10 AM CDT) P athologist Signature Protime 51.8 (H) 10.6 - 12.9 06/13/2019 [facility] 6:54 PM CDT CENTER LABORATORY Comment: . INR 4.4 06/13/2019 6:54 PM CDT [facility] Comment: Suggested INR Therapeutic Ranges* Intensity ?Standard ?Higher ? 2.0-3.0 ? 2.5-3.5 *Target INR should be individualized. Occasionally, INR range 3.0-4.5 may be appropriate. Higher intensity INR: Mechanical heart valve, etc. Specimen Anatomical Collection Method Collection Time Receive d Time (Source) Location / / Volume Laterality Blood (Blood, 06/13/2019 9:10 AM 06/13/20 19 6:21 Venous) CDT PM CDT D. Hang Carpenter MD LAB BLOOD ORDERABLES Performing Organization Address City/State/ZIP Code Phon e Number [facility] [address] [place] [address] documented in this encounter Visit Diagnoses Diagnosis Other pulmonary embolism without acute c or pulmonale, unspecified chronicity (HCC) documented in this encounter Additional Health Concerns Infection Onset Date Last Indicated Resolved Time MSSA 10/04/2018 10/04/2018 06/28/2022 8:27 AM CDT documented as of this encounter Care Teams Sr Risk Management Consultant Relationship Specialty Start Date End Date Adarsh Carpenter MD PCP - General 05/07/[address] [place] [address] documented as of this encounter
--- OUTSIDE RECORDS SUMMARY | 2022-06-30 08:31 | XMS_ITS | Encounter Summary ---
:1960 Author Organization [facility] Address [address] [place] [address] Care Team Providers Name Role Phone Adarsh Carpenter MD Primary Care Provider Encounter Details Date Type Department Care Team Description 08/07/2019 Telephone [place] Adarsh Carpenter MD [address] [place], [place] [address] [place], [place] [phone] [address] (Wo rk) Social History Tobacco Use Types [...] documented as of this encounter Care Teams Hr Business Partner Consultant Relationship Specialty Start Date End Date Adarsh Carpenter MD PCP - General 05/07/[address] [place] [address] documented as of this encounter
--- OUTSIDE RECORDS SUMMARY | 2022-06-30 08:31 | XMS_ITS | Encounter Summary ---
:1960 Author Organization [facility] Address [address] [place] [address] Care Team Providers Name Role Phone Adarsh Carpenter MD Primary Care Provider Reason for Visit Reason Onset Date Comments Pre op 07/25/2019 Encounter Details Date Type Department Care Team Description 07/25/2019 Telephone [place] Adarsh Carpenter MD Pre op [address] [place], [place] [address] [place], [place] [phone] (Wo rk) Social History Tobacco Use Types [...] Encounter - Vidhya Bain LPN - 07/25/2019 1:00 PM CDT Noted Telephone Encounter - Veronica Glez - 07/25/2019 12:43 PM CDT Pre-op faxed to [place] as requested. Telephone Encounter - Vidhya Bain LPN - 07/25/2019 12:34 PM CDT Please fax Telephone Encounter - Patria Freeman - 07/25/2019 12:13 PM CDT Patients called and would like pre op faxed to [facility] at [phone] as they have notreceived it yet. documented in this encounter Plan of Treatment Not on filedocumented as of this encounter Visit Diagnoses Not on filedocumented in this encounter Additional Health Concerns Infection Onset Date Last Indicated Resolved Time MSSA 10/04/2018 10/04/2018 06/28/2022 8:27 AM CDT documented as of this encounter Care Teams Automotive Service Assistant Relationship Specialty Start Date End Date Adarsh Carpenter MD PCP - General 05/07/[address] [place] [address] documented as of this encounter
--- OUTSIDE RECORDS SUMMARY | 2022-06-30 08:31 | XMS_ITS | Encounter Summary ---
:1960 Author Organization [facility] Address [address] [place] [address] Care Team Providers Name Role Phone Adarsh Carpenter MD Primary Care Provider Encounter Details Date Type Department Care Team Description 07/27/2019 Orders Only ArthurAdarsh Philip Pre-op examination [address] MD Hang (Primary Dx) [place], [place] [address] [facility] [address] [place] [address] Social History Tobacco Use Types Packs/Day Years [...] Name Priority Date/Time Associated Diagnosis Comme nts ECG 12-LEAD Routine 07/29/2019 12:00 AM CDT Pre-op examinatio n documented in this encounter Results (ABNORMAL) Basic metabolic panel (07/29/2019 11:06 AM CDT) P athologist Signature Sodium 140 135 - 145 07/29/2019 [facility] mmol/L 11:22 AM CDT [place] Potassium 3.9 3.5 - 5.1 07/29/2019 [facility] mmol/L 11:22 AM CDT [place] Comment: . Chloride 108 (H) 98 - 107 mmol/L 07/29/2019 11:22 AM CDT [facility] [place] Comment: . CO2 28 22 - 31 mmol/L 07/29/2019 11:22 AM CDT [place] [facility] Comment: . Creatinine 0.7 0.6 - 1.4 mg/dL 07/29/2019 11:22 AM CDT [facility] [place] Comment: . BUN 10 5 - 25 mg/dL 07/29/2019 11:22 AM CDT [facility] [place] [place] Comment: . Glucose 95 70 - 100 mg/dL 07/29/2019 11:22 AM CDT [place] Calcium, Total,S 9.0 8.4 - 10.2 mg/dL 07/29/2019 11:22 AM CDT [facility] [place] Comment: . Fasting? Unknown 07/29/2019 11:06 AM CDT [facility] [place] Specimen Anatomical Collection Method Collection Time Receive d Time (Source) Location / / Volume Laterality Blood 07/29/2019 11:06 07/29/2019 AM CDT 11:06 AM CDT Adarsh Carpenter MD LAB BLOOD ORDERABLES Performing Organization Address City/State/ZIP Code Phon e Number [facility] [place] [address] [place] [address] ECG 12 lead (07/29/2019 12:00 AM CDT) Narrative This result has an attachment that is no t available. Adarsh Carpenter MD ECG ORDERABLES documented in this encounter Visit Diagnoses Diagnosis Pre-op examination - Primary documented in this encounter Additional Health Concerns Infection Onset Date Last Indicated Resolved Time MSSA 10/04/2018 10/04/2018 06/28/2022 8:27 AM CDT documented as of this encounter Care Teams Field Specialist Relationship Specialty Start Date End Date Adarsh Carpenter MD PCP - General 05/07/[address] [place] [address] documented as of this encounter
--- OUTSIDE RECORDS SUMMARY | 2022-06-30 08:31 | XMS_ITS | Encounter Summary ---
:[address] [facility] Address [address] [place] [address] Care Team Providers Name Role Phone Adarsh Carpenter MD Primary Care Provider Encounter Details Date Type Department Care Team Description 07/23/2019 Office Visit [place] Adarsh Carpenter Kidney stones (Primary Dx); [address] MD Hang Kidney infection; [place], [place] [address] Cystitis [phone] [place] [address] Social History Tobacco Use Types Packs/Day Years [...] many times do you More than three vinaey es a week 04/24/2022 talk on the [...] encounter Progress Notes Adarsh Carpenter MD - 07/23/2019 2:00 PM CDT Estab Patient Visit Subjective Patient ID: Dwain Hinds is a 59 y.o. male. HPI patient is here today for follow-up of recent hospitalization secondary to sepsis which was secondary to urosepsis which was secondary to recurrent kidney stones. Patient is our 59-year-old gentleman long outstanding history of multiple sclerosis with general paralysis from the chest down. He has a neurogenic bladder and has to be chronically catheterized 3-4 times per day. He has had a history recurrent UTI infections that has had a secondary cause of chronic k idney stones and bladder stones. Once he had the kidney and bladder stones removed about a year and a half ago he has had less problems with urinary tract infections. Unfortunately he did develop some fevers and chills within the last week was hospitalized at the [facility] for 2 or 3 days for sepsis currently is on Cipro antibiotic has recovered from the acute event and they did note that he had recurrent kidney stones and now he will be having a procedure to remove these kidney stones again with his urologist. Currently however he feels good no fevers no chills appetite is good no shortness of breath or chestpain or palpitations his bowel patterns are regular and he continues to be catheterize up to 3-4 times per day by his . Review of Systems Objective Physical Exam he is alert he appears comfortable his vital signs show stable vital signs no fever current temp 97.4 His mentation is intact and he says he feels good Pupils equal conjunctiva clear Tongue is moist throat is clear Lungs are clear without wheeze rales or rhonchi Cardiac is regular rate and rhythm without heart murmur Abdomen is soft not tender no apparent masses Extremities have some dependent edema but nothing out of the ordinary With all of his recent laboratory test we did not need to repeat anything at this time he is still on antibiotic therapy and will complete his course and then he will have his surgical procedure on August 01 at [facility] we will try to remove this kidney stone. Assessment/Plan Diagnoses and all orders for this visit: Kidney stones Kidney infection Cystitis Again the assessment he has Follow-up of recent uroseptic event secondary to kidney stones and pyelonephritis/bladder infection. Plan at this time is to continue his antibiotics currently and to have his procedure done as scheduled. documented in this encounter Plan of Treatment Not on filedocumented as of this encounter Visit Diagnoses Diagnosis Kidney stones - Primary Calculus of kidney Kidney infection Unspecified infection of kidney Cystitis Unspecified cystitis documented in this encounter Additional Health Concerns Infection Onset Date Last Indicated Resolved Time MSSA 10/04/2018 10/04/2018 06/28/2022 8:27 AM CDT documented as of this encounter Care Teams Comber Operator Relationship Specialty Start Date End Date Adarsh Carpenter MD PCP - General 05/07/[address] [place] [address] documented as of this encounter
--- OUTSIDE RECORDS SUMMARY | 2022-06-30 08:31 | XMS_ITS | Encounter Summary ---
:1960 Author Organization [facility] Address [address] [place] [address] Care Team Providers Name Role Phone Adarsh Carpenter MD Primary Care Provider Reason for Visit Reason Comments Med Refill Encounter Details Date Type Department Care Team Description 07/21/2019 Refill [place] Adarsh Carpenter MD Neurogenic bladder [address] [place], [place] [address] [place], [place] [phone] (Wo rk) Social History Tobacco Use Types [...] Telephone Encounter - Sofia Denson RN - 07/22/2019 9:15 AM CDT Please advise on refill. Telephone Encounter - Patria Freeman - 07/22/2019 9:03 AM CDT Patient is needing this today please. documented in this encounter Plan of Treatment Not on filedocumented as of this encounter Visit Diagnoses Diagnosis Neurogenic bladder Neurogenic bladder, NOS documented in this encounter Additional Health Concerns Infection Onset Date Last Indicated Resolved Time MSSA 10/04/2018 10/04/2018 06/28/2022 8:27 AM CDT documented as of this encounter Care Teams Card Table Attendant Relationship Specialty Start Date End Date Adarsh Carpenter MD PCP - General 05/07/[address] [place] [address] documented as of this encounter
--- OUTSIDE RECORDS SUMMARY | 2022-06-30 08:31 | XMS_ITS | Encounter Summary ---
:1960 Author Organization [facility] Address [address] [place] [address] Care Team Providers Name Role Phone Adarsh Carpenter MD Primary Care Provider Encounter Details Date Type Department Care Team Description 06/24/2019 Lab [place] Other pulmonary embolism [address] without acute cor pulmonale, [place], [place] [address] unspecified chronicity (HCC) [phone] Social History Tobacco Use Types Packs/Day Years [...] Date/Time Associated Diagnosis Comme nts PROTIME-INR Routine 06/24/2019 9:10 AM Other pulmonary Result s for this CDT embolism without acute proce dure are in cor pulmonale, the results unspecified chronicity secti on. (HCC) documented in this encounter Results (ABNORMAL) Protime-INR (06/24/2019 9:10 AM CDT) P athologist Signature Protime 29.2 (H) 10.6 - 12.9 06/25/2019 [facility] 1:27 PM CDT [facility] Comment: . INR 2.5 06/25/2019 1:27 PM CDT [facility] Comment: Suggested INR Therapeutic Ranges* Intensity ?Standard ?Higher ? 2.0-3.0 ? 2.5-3.5 *Target INR should be individualized. Occasionally, INR range 3.0-4.5 may be appropriate. Higher intensity INR: Mechanical heart valve, etc. Specimen Anatomical Collection Method Collection Time Receive d Time (Source) Location / / Volume Laterality Blood (Blood, 06/24/2019 9:10 AM 06/25/20 19 Venous) CDT 12:56 PM CDT D. Hang Carpenter MD LAB BLOOD ORDERABLES Performing Organization Address City/State/ZIP Code Phon e Number [facility] [address] [place], [place] [id number] documented in this encounter Visit Diagnoses Diagnosis Other pulmonary embolism without acute c or pulmonale, unspecified chronicity (HCC) documented in this encounter Additional Health Concerns Infection Onset Date Last Indicated Resolved Time MSSA 10/04/2018 10/04/2018 06/28/2022 8:27 AM CDT documented as of this encounter Care Teams Ore Charger Relationship Specialty Start Date End Date Adarsh Carpenter MD PCP - General 05/07/[address] [place] [address] documented as of this encounter
--- OUTSIDE RECORDS SUMMARY | 2022-06-30 08:31 | XMS_ITS | Encounter Summary ---
:1960 Author Organization [facility] Address [address] [place] [address] Care Team Providers Name Role Phone Adarsh Carpenter MD Primary Care Provider Reason for Visit Reason Onset Date Comments Status update. 06/23/2019 Encounter Details Date Type Department Care Team Description 06/23/2019 Telephone [place] Adarsh Carpenter MD Status update. [address] [place], [place] [address] [place], [place] [phone] (Wo rk) Social History Tobacco Use Types [...] Telephone Encounter - Vidhya Bain LPN - 06/23/2019 1:09 PM CDT Just an FYI, from Sepsis. Telephone Encounter - Veronica Glez - 06/23/2019 12:48 PM CDT Pt's Anyi called to let Dr. Mauricio know Pt is out of the hospital. Call Nelia at [phone] as necessary. documented in this encounter Plan of Treatment Not on filedocumented as of this encounter Visit Diagnoses Not on filedocumented in this encounter Additional Health Concerns Infection Onset Date Last Indicated Resolved Time MSSA 10/04/2018 10/04/2018 06/28/2022 8:27 AM CDT documented as of this encounter Care Teams Nitroglycerin Distributor Relationship Specialty Start Date End Date Adarsh Carpenter MD PCP - General 05/07/[address] [place] [address] documented as of this encounter
--- OUTSIDE RECORDS SUMMARY | 2022-06-30 08:31 | XMS_ITS | Encounter Summary ---
:1960 Author Organization [facility] Address [address] [place] [address] Care Team Providers Name Role Phone Adarsh Carpenter MD Primary Care Provider Reason for Visit Reason Onset Date Comments PRESCRIPTION 06/27/2019 Encounter Details Date Type Department Care Team Description 06/27/2019 Telephone [place] Adarsh Carpenter MD PRESCRIPTION [address] [place], [place] [address] [place], [place] [phone] (Wo rk) Social History Tobacco Use Types [...] Telephone Encounter - Sofia Denson RN - 06/27/2019 12:24 PM CDT Please verify dose and send updated Rx to Pharmacy. Telephone Encounter - Taylor Last - 06/27/2019 12:06 PM CDT PT NEEDS A RENEWAL OF THE PRESCRIPTION FOR LACTULOSE. WHEN THEY SPOKE TO THE PHARMACIST THERE WAS MENTION OF A DOSAGE CHANGE. PLEASE VERIFY documented in this encounter Plan of Treatment Not on filedocumented as of this encounter Visit Diagnoses Diagnosis Constipation, unspecified constipation t ype documented in this encounter Additional Health Concerns Infection Onset Date Last Indicated Resolved Time MSSA 10/04/2018 10/04/2018 06/28/2022 8:27 AM CDT documented as of this encounter Care Teams Network Coordinator Relationship Specialty Start Date End Date Adarsh Carpenter MD PCP - General 05/07/[address] [place] [address] documented as of this encounter
--- OUTSIDE RECORDS SUMMARY | 2022-06-30 08:31 | XMS_ITS | Encounter Summary ---
:1960 Author Organization [facility] Address [address] [place] [address] Care Team Providers Name Role Phone Adarsh Carpenter MD Primary Care Provider Encounter Details Date Type Department Care Team Description 06/19/2019 Anticoagulation - [facility] Anticoag [place], Other pulmonary Warfarin Visit [address] [facility] [place], MANAGER APPLE, embolism without [place], [place] DERMATOLOGICAL SURGEON [place] [phone] [facility] pulmonale, [facility] unspecified [place], [place] chronicity (HC C) [address] Social History Tobacco Use Types Packs/Day [...] Progress Notes Ti Ellison APRN, CNP - 06/19/2019 1:19 PM CDT Patient's daughter calls and states patient has been hospitalized at [facility] since yesterday. She will call [facility] when he is discharged. Salina Pratt RN - 06/19/2019 1:19 PM CDT Pt's called [facility] stating pt is out of the hospital; his INR was 2.8 yesterday and she resumed his warfarin 2.5 mg last night, and will give him 5 mg tonight, and will recheck an INR tomorrow. Thereis a lab order in for 06/20 that can be used. Nelia (pt's ) verbalized understanding. documented in this encounter Plan of Treatment Not on filedocumented as of this encounter Visit Diagnoses Diagnosis Other pulmonary embolism without acute c or pulmonale, unspecified chronicity (HCC) documented in this encounter Additional Health Concerns Infection Onset Date Last Indicated Resolved Time MSSA 10/04/2018 10/04/2018 06/28/2022 8:27 AM CDT documented as of this encounter Care Teams Fuller Brush Man Relationship Specialty Start Date End Date Adarsh Carpenter MD PCP - General 05/07/[address] [place] [address] documented as of this encounter
--- OUTSIDE RECORDS SUMMARY | 2022-06-30 08:31 | XMS_ITS | Encounter Summary ---
:1960 Author Organization [facility] Address [address] [place] [address] Care Team Providers Name Role Phone Adarsh Carpenter MD Primary Care Provider Reason for Visit Reason Onset Date Comments Fever 06/18/2019 Encounter Details Date Type Department Care Team Description 06/18/2019 Telephone [place] Adarsh Carpenter MD Fever [address] [place], [place] [address] [place], [place] [phone] (Wo rk) Social History Tobacco Use Types [...] Telephone Encounter - Vidhya Bain LPN - 06/19/2019 12:39 PM CDT He is in patient in [place]. Sepsis again. Assuming it is from the UTI. They are using a broad spectrum antibiotic for now till the culture is back. They will call when he gets out. Telephone Encounter - Patria Freeman - 06/19/2019 11:22 AM CDT Nelia returned call. Telephone Encounter - Vidhya Bain LPN - 06/19/2019 11:13 AM CDT Left message on Hans's phone and Nelia's phone Telephone Encounter - Vidhya Bain LPN - 06/19/2019 8:26 AM CDT Will call later this afternoon to check on Hans. Telephone Encounter - Vidhya Bain LPN - 06/18/2019 4:49 PM CDT Nelia called and stated that Hans spiked a temperature of 101.3 and she wanted to know if she should take him to the [place] ER. The nurse encouraged that due to his history. They are going to call us tomorrow with an update of what is happening. documented in this encounter Plan of Treatment Not on filedocumented as of this encounter Visit Diagnoses Not on filedocumented in this encounter Additional Health Concerns Infection Onset Date Last Indicated Resolved Time MSSA 10/04/2018 10/04/2018 06/28/2022 8:27 AM CDT documented as of this encounter Care Teams Vamp Maker Relationship Specialty Start Date End Date Adarsh Carpenter MD PCP - General 05/07/[address] [place] [address] documented as of this encounter
--- OUTSIDE RECORDS SUMMARY | 2022-06-30 08:31 | XMS_ITS | Encounter Summary ---
:[address] 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 How often do you attend zoroastrian or 1 to 4 times per year 04/01 taoist services? Do you belong to any clubs or No 04/24/2022 organizations such as zoroastrian groups, unions, fraternal or athletic groups, or [...] Progress Notes Ti Ellison APRN, CNP - 07/31/2019 1:33 PM CDT -Continue to hold warfarin tonight 07/31/19 -Resume warfarin in evening at prior maintenance dose of 5 mg every Mon, Fri; 2.5 mg all other days on 08/01/19 with provider approval - Resume Lovenox 135 mg subcutaneous every 24 hours until INR > 2.5 on 08/02/19 - Recheck INR 08/04/19 [facility] instructed patient and his Nelia to keep following the bridging schedule that was given to them. Above instructions reviewed with them on the phone. Both verbalized understanding. documented in this encounter Plan of Treatment Not on filedocumented as of this encounter Results (ABNORMAL) Protime-INR (08/08/2019 9:18 AM [facility]) athologist Signature Protime 37.2 (H) 10.6 - 12.9 08/08/2019 [facility] 1:58 PM [facility] Comment: . INR 3.1 08/08/2019 1:58 PM [facility] Comment: Suggested INR Therapeutic Ranges* Intensity ?Standard ?Higher ? 2.0-3.0 ? 2.5-3.5 *Target INR should be individualized. Occasionally, INR range 3.0-4.5 may be appropriate. Higher intensity INR: Mechanical heart valve, etc. Specimen Anatomical Collection Method Collection Time Receive d Time (Source) Location / / Volume Laterality Blood (Blood, 08/08/2019 9:18 AM 08/08/20 19 Venous) [employer] 12:18 PM [employer] Ti Ellison APRN, RADIATION ONCOLOGY NURSE LAB BLOOD ORDERABLES Performing Organization Address City/State/ZIP Code Phon e Number [facility] [address] [place] [phone] documented in this encounter Visit Diagnoses Diagnosis Other pulmonary embolism without acute c or pulmonale, unspecified chronicity (HCC) documented in this encounter Additional Health Concerns Infection Onset Date Last Indicated Resolved Time MSSA 10/04/2018 10/04/2018 06/28/2022 8:27 AM CDT documented as of this encounter Care Teams Radio Equipment Repairer Relationship Specialty Start Date End Date Adarsh Carpenter MD PCP - General 05/07/[address] [place] [address] documented as of this encounter
--- OUTSIDE RECORDS SUMMARY | 2022-06-30 08:31 | XMS_ITS | Encounter Summary ---
:1960 Author Organization [facility] Address [address] [place] [address] Care Team Providers Name Role Phone Adarsh Carpenter MD Primary Care Provider Encounter Details Date Type Department Care Team Description 07/08/2019 Lab [place] Other pulmonary embolism [address] without acute cor pulmonale, [place], [place] [address] unspecified chronicity (HCC) [phone] Social History Tobacco Use Types Packs/Day Years [...] Date/Time Associated Diagnosis Comme nts PROTIME-INR Routine 07/08/2019 9:21 AM Other pulmonary Result s for this CDT embolism without acute proce dure are in cor pulmonale, the results unspecified chronicity secti on. (HCC) documented in this encounter Results (ABNORMAL) Protime-INR (07/08/2019 9:21 AM CDT) P athologist Signature Protime 41.0 (H) 10.6 - 12.9 07/08/2019 [facility] 12:55 PM CDT [facility] Comment: . INR 3.5 07/08/2019 12:55 PM CDT [facility] Comment: Suggested INR Therapeutic Ranges* Intensity ?Standard ?Higher ? 2.0-3.0 ? 2.5-3.5 *Target INR should be individualized. Occasionally, INR range 3.0-4.5 may be appropriate. Higher intensity INR: Mechanical heart valve, etc. Specimen Anatomical Collection Method Collection Time Receive d Time (Source) Location / / Volume Laterality Blood (Blood, 07/08/2019 9:21 AM 07/08/20 19 Venous) CDT 12:30 PM CDT D. Hang Carpenter MD LAB BLOOD ORDERABLES Performing Organization Address City/State/ZIP Code Phon e Number [facility] [address] [place] [address] documented in this encounter Visit Diagnoses Diagnosis Other pulmonary embolism without acute c or pulmonale, unspecified chronicity (HCC) documented in this encounter Additional Health Concerns Infection Onset Date Last Indicated Resolved Time MSSA 10/04/2018 10/04/2018 06/28/2022 8:27 AM CDT documented as of this encounter Care Teams Aerial Applicator Pilot Relationship Specialty Start Date End Date Adarsh Carpenter MD PCP - General 05/07/[address] [place] [address] documented as of this encounter
--- OUTSIDE RECORDS SUMMARY | 2022-06-30 08:31 | XMS_ITS | Encounter Summary ---
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 How often do you attend denominational or 1 to 4 times per year 04/01 episcopalian services? Do you belong to any clubs or No 04/24/2022 organizations such as denominational groups, unions, fraternal or athletic groups, or [...] Progress Notes Jodi Gee APRN, CNP - 08/06/2019 11:03 AM CST INR: No new INR Dose: No instruction given Recheck date: 08/08/19 Patient currently admitted at [facility]. Patient stated he will likely get discharged today. Patient will have INR drawn 08/08/19. Patient verbalized understanding. AVS not mailed due to timeframe of return. 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
--- OUTSIDE RECORDS SUMMARY | 2022-06-30 08:31 | XMS_ITS | Encounter Summary ---
:1960 Author Organization [facility] Address [address] [place] [address] Care Team Providers Name Role Phone Adarsh Carpenter MD Primary Care Provider Encounter Details Date Type Department Care Team Description 07/29/2019 [facility] Pre-op examination [address] [place], [place] [address] Social History Tobacco Use [...] or relatives? How often do you attend hindu or 1 to 4 times per year 04/01 religion services? Do you belong to any clubs or No 04/24/2022 organizations such as hindu groups, unions, fraternal or athletic groups, or [...] Priority Date/Time Associated Diagnosis Comme nts GLOMERULAR Routine 07/29/2019 11:06 Pre-op examination Resul ts for this FILTRATION RATE AM CDT procedure ar e in the results section. CBC BRANCH OFFICE Routine 07/29/2019 11:06 Result s for this W/DIFF AM CDT procedure are i n the results section. BASIC METABOLIC Routine 07/29/2019 11:06 Pre-op examination Re sults for this PANEL AM CDT procedure are i n the results section. documented in this encounter Results Glomerular filtration rate (GFR) (07/29/2019 11:06 AM CDT) athologist Signature GFR >60 07/29/2019 [facility] 11:22 AM CDT [facility] >60 07/29/2019 [facility] Cameroonian GFR 11:22 AM CDT [facility] Comment: GFR calculated from serum creatinine v alue Chronic Kidney Disease less than 60 mL/m in/1.73 m2 Kidney Failure less than 15 mL/min/1.73 m2 Note: effective 02/13/07 IDMS-Traceable MDRD Study Equation used. Specimen Anatomical Collection Method Collection Time Receive d Time (Source) Location / / Volume Laterality 07/29/2019 11:06 07/29/2019 AM CDT 11:06 AM CDT D. Hang Carpenter MD LAB BLOOD ORDERABLES Performing Organization Address City/State/ZIP Code Phon e Number [facility] [address] [place] [phone] (ABNORMAL) CBC Branch Off w/Diff (07/29/2019 11:06 AM CDT) Analysis Performed At Patho logist Time Signature WBC 6.2 3.5 - 10.5 07/29/2019 [facility] K/uL 11:22 AM CDT [place] RBC 5.06 4.30 - 07/29/2019 [facility] [place] 5.70 M/uL 11:22 AM CDT [place] Hemoglobin 15.2 13.5 - 07/29/2019 [facility] [place] 17.5 g/dL 11:22 AM CDT [place] Hematocrit 46.6 38.0 - 07/29/2019 [facility] [place] [place] [facility] 50.0 % 11:22 AM CDT [place] Platelets 455 (H) 150 - 450 07/29/2019 [facility] [place] [facility] K/uL 11:22 AM CDT [place] MCV 92.1 81.2 - 07/29/2019 [facility] [place] [facility] 95.1 fL 11:22 AM CDT [place] MCH 30.0 26.0 - 07/29/2019 [facility] [place] [facility] 32.0 pg 11:22 AM CDT [place] MCHC 32.6 32.0 - 07/29/2019 [facility] [place] [facility] 36.0 g/dL 11:22 AM CDT [place] RDW 14.5 11.8 - 07/29/2019 [facility] [place] [facility] 15.6 % 11:22 AM CDT [place] Lymphocytes % 22.4 18.0 - 07/29/2019 [facility] [place] [facility] 45.0 % 11:22 AM CDT [place] Mid-size Cells 9.8 3.3 - 10.1 07/29/2019 [facility] [place] [facility] % 11:22 AM CDT [place] Granulocytes/Mason 67.8 45.8 - 07/29/2019 [facility] [place] [facility] trophils 73.7 % 11:22 AM CDT [place] Lymphocytes 1.4 0.9 - 2.9 07/29/2019 [facility] [place] [facility] Absolute K/uL 11:22 AM CDT [place] MIDS Absolute 0.6 0.2 - 0.8 07/29/2019 [facility] [place] [facility] K/uL 11:22 AM CDT [place] Granulocytes/Mason 4.2 2.1 - 8.7 07/29/2019 [facility] [place] [facility] trophils K/uL 11:22 AM CDT [place] Absolute Specimen Anatomical Collection Method Collection Time Receive d Time (Source) Location / / Volume Laterality 07/29/2019 11:06 07/29/2019 AM CDT 11:06 AM CDT DLatanya Carpenter MD LAB BLOOD ORDERABLES Performing Organization Address City/State/ZIP Code Phon e Number [facility] [place] [place] [address] [place] [address] (ABNORMAL) Basic metabolic panel (07/29/2019 11:06 AM CDT) P athologist Signature Sodium 140 135 - 145 07/29/2019 [facility] [place] [facility] mmol/L 11:22 AM CDT [place] Potassium 3.9 3.5 - 5.1 07/29/2019 [facility] [place] [facility] mmol/L 11:22 AM CDT [place] Comment: . Chloride 108 (H) 98 - 107 mmol/L 07/29/2019 11:22 AM CDT [facility] [place] [facility] Comment: . CO2 28 22 - 31 mmol/L 07/29/2019 11:22 AM CDT O BILL [facility]UMMER Comment: . Creatinine 0.7 0.6 - 1.4 mg/dL 07/29/2019 11:22 AM CDT [facility] [place] [facility] Comment: . BUN 10 5 - 25 mg/dL 07/29/2019 11:22 AM CDT [facility] [place] [facility] Comment: . Glucose 95 70 - 100 mg/dL 07/29/2019 11:22 AM CDT O BILL [facility]UM[facility] Calcium, Total,S 9.0 8.4 - 10.2 mg/dL 07/29/2019 11:22 AM CDT [facility] [place] [facility] Comment: . Fasting? Unknown 07/29/2019 11:06 AM CDT [facility] [place] [facility] PLUMMER Specimen Anatomical Collection Method Collection Time Receive d Time (Source) Location / / Volume Laterality Blood 07/29/2019 11:06 07/29/2019 AM CDT 11:06 AM CDT Adarsh Carpenter MD LAB BLOOD ORDERABLES Performing Organization Address City/State/ZIP Code Phon e Number [facility] [place] [facility] [address] [place] [address] documented in this encounter Visit Diagnoses Diagnosis Pre-op examination documented in this encounter Additional Health Concerns Infection Onset Date Last Indicated Resolved Time MSSA 10/04/2018 10/04/2018 06/28/2022 8:27 AM CDT documented as of this encounter Care Teams Wash Mill Operator Relationship Specialty Start Date End Date Adarsh Carpenter MD PCP - General 05/07/[address] [place] [address] documented as of this encounter
--- OUTSIDE RECORDS SUMMARY | 2022-06-30 08:31 | XMS_ITS | Encounter Summary ---
:[address] [facility] Address [address] [place] [address] Care Team Providers Name Role Phone Adarsh Carpenter MD Primary Care Provider Encounter Details Date Type Department Care Team Description 05/16/2019 Anticoagulation - [facility] Anticoag Shahid, Marley Condon, Other pulmonary Warfarin Visit [address] [facility] PharmD embolism without [place], [place] [address] [address] [facility] pulmonale, [place], [place] unspecified [phone] chronicity ([facility]) Social History Tobacco Use Types Packs/Day Years [...] 1 to 4 times per year 04/01 mandaen services? Do you belong to any clubs [...] encounter Progress Notes Marley Key PharmD - 05/16/2019 1:35 PM CDT INR: 2.6 Dose: 5 mg MWF, 2.5 mg all other days Recheck date: 06/13/19 Left detailed voice message with above instructions. AVS mailed. documented in this encounter Plan of Treatment Not on filedocumented as of this encounter Results (ABNORMAL) Protime-INR (06/13/2019 9:10 AM CDT) P athologist Signature Protime 51.8 (H) 10.6 - 12.9 06/13/2019 [facility] 6:54 PM CDT [facility] Comment: . INR 4.4 06/13/2019 6:54 PM CDT [facility] Comment: Suggested INR Therapeutic Ranges* Intensity ?Standard ?Higher ? 2.0-3.0 ? 2.5-3.5 *Target INR should be individualized. Occasionally, INR range 3.0-4.5 may be appropriate. Higher intensity INR: Mechanical heart valve, etc. Specimen Anatomical Collection Method Collection Time Receive d Time (Source) Location / / Volume Laterality Blood (Blood, 06/13/2019 9:10 AM 06/13/20 19 6:21 Venous) CDT PM CDT Adarsh Carpenter MD LAB BLOOD ORDERABLES Performing Organization Address City/State/ZIP Code Phon e Number [facility] [address] [place] [address] documented in this encounter Visit Diagnoses Diagnosis Other pulmonary embolism without acute c or pulmonale, unspecified chronicity (HCC) documented in this encounter Additional Health Concerns Infection Onset Date Last Indicated Resolved Time MSSA 10/04/2018 10/04/2018 06/28/2022 8:27 AM CDT documented as of this encounter Care Teams Historic Sites Supervisor Relationship Specialty Start Date End Date Adarsh Carpenter MD PCP - General 05/07/[address] [place] [address] documented as of this encounter
--- OUTSIDE RECORDS SUMMARY | 2022-06-30 08:31 | XMS_ITS | Encounter Summary ---
:1960 Author Organization [facility] Address [address] [place] [address] Care Team Providers Name Role Phone Adarsh Carpenter MD Primary Care Provider Encounter Details Date Type Department Care Team Description 07/08/2019 Orders Only Ruth Adarsh Carpenter Constipation, [address] [place] unspecified constipation [place], [place] [address] type [phone] [place] [address] Social History Tobacco Use Types Packs/Day Years [...] or relatives? How often do you attend taoism or 1 to 4 times per year 04/01 sikh services? Do you belong to any clubs or No 04/24/2022 organizations such as taoism groups, unions, fraternal or athletic groups, or [...] documented as of this encounter Care Teams Staffing Executive Relationship Specialty Start Date End Date Adarsh Carpenter MD PCP - General 05/07/[address] [place] [address] documented as of this encounter
--- OUTSIDE RECORDS SUMMARY | 2022-06-30 08:31 | XMS_ITS | Encounter Summary ---
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 [phone] [place] [address] Social History Tobacco Use Types Packs/Day [...] on file documented as of this encounter Patient Instructions Patient InstructionsJodi Petty APRN, BONI - 07/23/2019 4:48 PM CDT Date Days Before/After Anti-coagulation Management INR Blood Testing/ Notes Sunday07/26/19 6 Last day of warfarin Sunday07/27/19 5 No warfarin No Lovenox Sunday07/28/19 4 No warfarin Lovenox 135 mg (0.9 ml) at 8 am Sunday07/29/19 3 No warfarin Lovenox 135 mg (0.9 ml) at 8 am Sunday07/30/19 2 No warfarin Lovenox 135 mg (0.9 ml) at 8 am 07/31/19 1 No warfarin Lovenox 67.5 mg (0.45 ml) at 8 am Check INR today Sunday08/01/19 Day of procedure No Lovenox Warfarin 5 mg in evening per surgeon's approval Sunday08/02/19 1 Lovenox 135 mg (0.9 ml) at 8 am Warfarin 2.5 mg in evening Sunday08/03/19 2 Lovenox 135 mg (0.9 ml) at 8 am Warfarin 2.5 mg in evening Sunday08/04/19 3 Lovenox 135 mg (0.9 ml) at 8 am Warfarin dosing instructions per INR results Check INR today documented in this encounter Progress Notes Jodi Petty APRN, BONI - 07/23/2019 4:48 PM CDT INR: 3.7 Dose: Hold tonight 07/23/19 [facility] spoke with patient and Nelia regarding INR results and grace-procedural instructions. Patient denies signs/symptoms of bleeding. Patient started Cipro on 06/19/19. Patient instructed to hold warfarin tonight and await further instruction 07/24/19. Nelia verbalized understanding. AVS not mailed. Jodi Petty APRN, CNP - 07/23/2019 4:48 PM CDT Grace-Procedural Anticoagulation The following information was provided through in-depth chart review and phone conversation with patient's Nelia. Requesting Provider: Jordi Piedra MD Primary Care Provider Adarsh Carpenter MD Subjective Reason for Consult: Grace-procedural warfarin management History of Present Illness: Dwain Hinds is a 59 y.o. male who is currently anticoagulated with warfarin for history of unprovoked acute saddle and main pulmonary embolism with right heart strain in 2018. Procedure planned: Cystoscopy, right retrograde pyelogram, right ureteroscopy, Holimum laser lithrotripsy, stone basket extraction, right stent placement Date of Procedure: 08/01/19 Referring Provider preferences: Normalized INR Procedure bleeding risk: Moderate Indication for anticoagulation: Pulmonary embolism Current anticoagulant: Warfarin Past grace-procedural anticoagulation: Yes, warfarin 5 day with bridging Past major bleeding events: None Past Medical History He has a past medical history of Allergic rhinitis, Clotting disorder (HCC), Depression, Neuromuscular disorder (HCC), Pneumonia, Urinary tract infection, Varicella, and Visual impairment. Surgical History He has a past surgical history that includes Adenoidectomy; Tonsillectomy; Fracture surgery; Bone graft; Achilles tendon surgery; and Toe Surgery. Allergies Penicillins; Bee venom; and Penicillin v potassium Medications Current Outpatient Medications: ??? acetaminophen (TYLENOL) 500 MG tablet, Take 500 mg by mouth if needed, Disp: , Rfl: ??? Catheters (SELF-CATH STRAIGHT TIP) misc, USE DIRECTED, Disp: 120 each, Rfl: 11 ??? Ciprofloxacin (CIPRO PO), Take 1 tablet by mouth 2 (two) times a day, Disp: , Rfl: ??? enoxaparin (LOVENOX) 150 MG/ML injection, Inject 135 mg (0.9 ml) under skin in abdomen every 24 hours at 8 am as directed by Anticoagulation Clinic. First dose: 07/28/19, Disp: 10 mL, Rfl: 1 ??? lactulose (CHRONULAC) 10 GM/15ML solution, Take 15-30 ml up to three times per day or as directed or needed for constipation, Disp: 1892 mL, Rfl: 10 ??? Menthol-Zinc Oxide (CALMOSEPTINE) 0.44-20.6 % ointment, Apply to groin/buttocks daily prn rash (Patient not taking: Reported on 07/23/2019), Disp: 113 g, Rfl: 11 ??? multivitamin (THERAGRAN) tablet, Take 1 tablet by mouth 1 (one) time each day , Disp: , Rfl: ??? oxybutynin (DITROPAN) 5 MG tablet, TAKE ONE TABLET BY MOUTH TWICE A DAY. PLEASE NOTE THE INCREASE IN DOSE, Disp: 180 tablet, Rfl: 3 ??? warfarin (COUMADIN) 2.5 MG tablet, Take 2.5 mg by mouth T, TH, S, S, Disp: , Rfl: ??? warfarin (COUMADIN) 5 MG tablet, Take 1 tablet (5 mg) PO daily on Mon, Wed, Fri; take 1/2 tablet(2.5 mg) on all other days and as directed by Anticoagulation clinic, Disp: 64 tablet, Rfl: 3 Objective Relevant Results INR- 3.7 07/22/19 GFR- To be drawn 07/25/19 Wt- 86.2 kg Assessment/Plan 1. Other pulmonary embolism without acute cor pulmonale, unspecified chronicity (HCC) - enoxaparin (LOVENOX) 150 MG/ML injection; Inject 135 mg (0.9 ml) under skin in abdomen every 24 hours at 8 am as directed by Anticoagulation Clinic. First dose: 07/28/19 Dispense: 10 mL; Refill: 1 - Creatinine, Serum; Future - Protime-INR; Future 2. prison current use of anticoagulant Mr. Hinds is a 59 year old gentleman with medical history significant for unprovoked acute saddle and main pulmonary embolism with right heart strain (2018), multiple sclerosis, and paraplegia. Patientis scheduled for cystoscopy procedure at [facility] on 08/01/19. Recommendations from patient's PCP are to bridge with low molecular weight heparin while temporarily holding warfarin prior to invasive procedures. Discussed risks and benefits of warfarin 5 day hold with bridging with patient's Nelia.Nelia stated the patient has received Lovenox injections prior and they are comfortable with the self injections. Plan for warfarin 5 day hold with bridging. Grace-procedural recommendations: 1.) Continue warfarin 2.5 mg daily through 07/26/19 2.) Warfarin 5 day hold 07/27/19 - 07/31/19 3.) Lovenox 135 mg subcutaneous every 24 hours at 8 am 07/28/19 - 07/30/19 4.) Lovenox 67.5 mg (1/2 dose) subcutaneous at 8 am on 07/31/19 5.) Resume warfarin in evening at prior maintenance dose of 5 mg every Mon, Fri; 2.5 mg all other days on 08/01/19 with provider approval 6.) Resume Lovenox 135 mg subcutaneous every 24 hours until INR > 2.5 7.) Recheck INR 08/04/19 8.) Call [facility] with any questions or concerns at [phone] Patient's Nelia verbalized understanding. Patient and Nelia are in agreement with plan. AVS printedand [facility]ed to [facility] to be picked up on 07/25/19. Telephone encounter - 10 minutes was spent counseling regarding grace-procedural management of anticoagulant medication, medication changes, risk/benefits of prescribed medications, and answering questions to the patient's satisfaction. Jodi Petty APRN, CNP - 07/23/2019 4:48 PM CDT Recent Results Creatinine, Serum Collection Time: 07/25/19 9:00 AM Result Value Ref Range Creatinine 0.8 0.6 - 1.4 mg/dL Glomerular filtration rate (GFR) Collection Time: 07/25/19 9:00 AM Result Value Ref Range GFR >60 GFR >60 Patient and notified of results. Juliann Monsalve MD - 07/23/2019 4:48 PM CDT Thank you for your note. I have reviewed it. documented in this encounter Miscellaneous Notes Addendum Note - Jodi Petty APRN, CNP - 07/23/2019 4:48 PM CDT Addended by: JODI PETTY on: 07/24/2019 04:47 PM Modules accepted: Orders documented in this encounter Plan of Treatment Not on filedocumented as of this encounter Results (ABNORMAL) Protime-INR (07/31/2019 9:12 AM CDT) athologist Signature Protime 13.3 (H) 10.6 - 12.9 07/31/2019 [facility] 12:52 PM CDT [facility] Comment: . INR 1.1 07/31/2019 12:52 PM CDT [facility] Comment: Suggested INR Therapeutic Ranges* Intensity ?Standard ?Higher ? 2.0-3.0 ? 2.5-3.5 *Target INR should be individualized. Occasionally, INR range 3.0-4.5 may be appropriate. Higher intensity INR: Mechanical heart valve, etc. Specimen Anatomical Collection Method Collection Time Receive d Time (Source) Location / / Volume Laterality Blood (Blood, 07/31/2019 9:12 AM 07/31/20 19 Venous) CDT 12:17 PM CDT Jodi Petty APRN, CNP LAB BLOOD ORDERABLES Performing Organization Address City/State/ZIP Code Phon e Number [facility] [address] [place] [address] Creatinine, Serum (07/25/2019 9:00 AM CDT) P athologist Signature Creatinine 0.8 0.6 - 1.4 07/25/2019 [facility] 9:25 AM CDT [facility] Comment: . 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
--- OUTSIDE RECORDS SUMMARY | 2022-06-30 08:31 | XMS_ITS | Encounter Summary ---
:1960 Author Organization [facility] Address [address] [place] [address] Care Team Providers Name Role Phone Adarsh Carpenter MD Primary Care Provider Encounter Details Date Type Department Care Team Description 07/22/2019 Lab Geff Other pulmonary embolism [address] without acute cor pulmonale, [place], [place] [address] unspecified chronicity (HCC) [phone] Social History Tobacco Use Types Packs/Day Years [...] Date/Time Associated Diagnosis Comme nts PROTIME-INR Routine 07/22/2019 9:35 AM Other pulmonary Result s for this CDT embolism without acute proce dure are in cor pulmonale, the results unspecified chronicity secti on. (HCC) documented in this encounter Results (ABNORMAL) Protime-INR (07/22/2019 9:35 AM CDT) P athologist Signature Protime 44.2 (H) 10.6 - 12.9 07/23/2019 [facility] 1:41 PM CDT [facility] Comment: . INR 3.7 07/23/2019 1:41 PM CDT [facility] Comment: Suggested INR Therapeutic Ranges* Intensity ?Standard ?Higher ? 2.0-3.0 ? 2.5-3.5 *Target INR should be individualized. Occasionally, INR range 3.0-4.5 may be appropriate. Higher intensity INR: Mechanical heart valve, etc. Specimen Anatomical Collection Method Collection Time Receive d Time (Source) Location / / Volume Laterality Blood (Blood, 07/22/2019 9:35 AM 07/23/20 19 Venous) CDT 12:59 PM CDT D. Hang Carpenter MD LAB BLOOD ORDERABLES Performing Organization Address City/State/ZIP Code Phon e Number [facility] [address] [place] [phone] documented in this encounter Visit Diagnoses Diagnosis Other pulmonary embolism without acute c or pulmonale, unspecified chronicity (HCC) documented in this encounter Additional Health Concerns Infection Onset Date Last Indicated Resolved Time MSSA 10/04/2018 10/04/2018 06/28/2022 8:27 AM CDT documented as of this encounter Care Teams Peer Support Specialist Relationship Specialty Start Date End Date Adarsh Carpenter MD PCP - General 05/07/[address] [place] [address] documented as of this encounter
--- OUTSIDE RECORDS SUMMARY | 2022-06-30 08:31 | XMS_ITS | Encounter Summary ---
:[address] [facility] Address [address] [place] [address] Care Team Providers Name Role Phone Adarsh Carpenter MD Primary Care Provider Reason for Visit Reason Onset Date Comments [facility] records 07/24/2019 Encounter Details Date Type Department Care Team Description 07/24/2019 Telephone [place] Adarsh Carpenter [facility] records [address] [place], [place] [address] [facility] [address] [place] [phone] [place] [address] (Wo rk) Social History Tobacco Use Types [...] Telephone Encounter - Vidhya Bain LPN - 07/24/2019 9:42 AM CDT Requested records from [facility] Sent this message to the anticoagulation team at [facility] Overnight at the providers desk. Telephone Encounter - Sofia Denson RN - 07/24/2019 9:28 AM CDT ----- Message from Adarsh Carpenter MD sent at 07/23/2019 7:15 PM CDT ----- Dhruv was recently in the [facility]. I tried to locate labs, etc and could not. Please see if you can find CBC, chem 8, chest x-ray and any EKG and then let me know what he has had done. What ever he hasn't had done above then we will need to do. Also make sure that [facility]'s Coag team knows that Dhruv will be having surgery on Aug 01 and he will need to come of Coumadin and placed on Lovenox and then restarted on coumadin after the procedure. Also, I would like to get an overnight Oximetry on Dhruv. Jerry's form on my desk please. Also put Dhruv on our [employer] list. Also Dhruv says he had a colonoscopy at [facility] in [place]. I could not find this. Please locate and update his chart. documented in this encounter Plan of Treatment Not on filedocumented as of this encounter Visit Diagnoses Not on filedocumented in this encounter Additional Health Concerns Infection Onset Date Last Indicated Resolved Time MSSA 10/04/2018 10/04/2018 06/28/2022 8:27 AM CDT documented as of this encounter Care Teams Residential Subcontractor Relationship Specialty Start Date End Date Adarsh Carpenter MD PCP - General 05/07/[address] [place] [address] documented as of this encounter
--- OUTSIDE RECORDS SUMMARY | 2022-06-30 08:31 | XMS_ITS | Encounter Summary ---
:1960 Author Organization [facility] Address [address] [place] [address] Care Team Providers Name Role Phone Adarsh Carpenter MD Primary Care Provider Reason for Visit Reason Onset Date Comments Homebound letter status 06/09/2019 Encounter Details Date Type Department Care Team Description 06/09/2019 Telephone Adarsh Weaver Homebound letter status [address] [place], [place] [address] [phone] [place] [address] Social History Tobacco Use Types Packs/Day Years [...] Telephone Encounter - Vidhya Bain LPN - 06/09/2019 2:50 PM CDT Patient informed Telephone Encounter - Veronica Gelz - 06/09/2019 1:11 PM CDT Letter faxed to [facility] as requested. Telephone Encounter - Vidhya Bain LPN - 06/09/2019 9:51 AM CDT desk attendant, please fax again to [facility] [place] Nurse: is mailing a copy as well right now to home address. Telephone Encounter - Veronica Glez - 06/09/2019 8:47 AM CDT Pt's Nelia called wondering about the status of the homebound letter. She thought she was goingto get a copy of it, and she has not, and she has not heard anything from [facility] either. Please call Nelia at [phone] after 2:00 as she has her mother's this morning. documented in this encounter Plan of Treatment Not on filedocumented as of this encounter Visit Diagnoses Not on filedocumented in this encounter Additional Health Concerns Infection Onset Date Last Indicated Resolved Time MSSA 10/04/2018 10/04/2018 06/28/2022 8:27 AM CDT documented as of this encounter Care Teams Waterproofer Relationship Specialty Start Date End Date Adarsh Carpenter MD PCP - General 05/07/[address] [place] [address] documented as of this encounter
--- OUTSIDE RECORDS SUMMARY | 2022-06-30 08:31 | XMS_ITS | Encounter Summary ---
:[address] [facility] Address [address] [place] [address] Care Team Providers Name Role Phone Adarsh Carpenter MD Primary Care Provider Encounter Details Date Type Department Care Team Description 07/08/2019 Anticoagulation - [facility] Anticoag Shah[place], Marley Condon, Other pulmonary Warfarin Visit [address] [facility] PharmD embolism without [place], [place] [address] [place] [address] [facility] pulmonale, [place], [place] unspecified [address] chronicity ([facility]) Social History Tobacco Use Types Packs/Day Years [...] or relatives? How often do you attend restorationist or 1 to 4 times per year 04/01 buddhist services? Do you belong to any clubs or No 04/24/2022 organizations such as restorationist groups, unions, fraternal or athletic groups, or [...] of this encounter Progress Notes Marley Key PharmElizabeth - 07/08/2019 1:24 PM CDT INR: 3.5 Dose: 5 mg Mon, Sun; 2.5 mg all other days Recheck date: 07/22/19 Left detailed voice message with above instructions. AVS mailed. documented in this encounter Plan of Treatment Not on filedocumented as of this encounter Results (ABNORMAL) Protime-INR (07/22/2019 9:35 AM CDT) P athologist Signature Protime 44.2 (H) 10.6 - 12.9 07/23/2019 [facility] 1:41 PM CDT [facility] Comment: . INR 3.7 07/23/2019 1:41 PM CDT [facility] Comment: Suggested INR Therapeutic Ranges* Intensity ?Standard ?Higher ? 2.0-3.0 ? 2.5-3.5 *Target INR should be individualized. Occasionally, INR range 3.0-4.5 may be appropriate. Higher intensity INR: Mechanical heart valve, etc. Specimen Anatomical Collection Method Collection Time Receive d Time (Source) Location / / Volume Laterality Blood (Blood, 07/22/2019 9:35 AM 07/23/20 19 Venous) CDT 12:59 PM CDT Adarsh Carpenter MD LAB BLOOD ORDERABLES Performing Organization Address City/State/ZIP Code Phon e Number [facility] [address] [place] [address] documented in this encounter Visit Diagnoses Diagnosis Other pulmonary embolism without acute c or pulmonale, unspecified chronicity (HCC) documented in this encounter Additional Health Concerns Infection Onset Date Last Indicated Resolved Time MSSA 10/04/2018 10/04/2018 06/28/2022 8:27 AM CDT documented as of this encounter Care Teams Church Official Relationship Specialty Start Date End Date Adarsh Carpenter MD PCP - General 05/07/[address] [place] [address] documented as of this encounter
--- OUTSIDE RECORDS SUMMARY | 2022-06-30 08:31 | XMS_ITS | Encounter Summary ---
:1960 Author Organization [facility] Address [address] [place] [address] Care Team Providers Name Role Phone Adarsh Alfonso MD Primary Care Provider Reason for Visit Reason Onset Date Comments Update 07/28/2019 Encounter Details Date Type Department Care Team Description 07/28/2019 Telephone [place] Adarsh Alfonso MD Update [address] [place], [place] [address] [place], [place] [phone] (Wo rk) Social History Tobacco Use Types [...] Telephone Encounter - Vidhya Bain LPN - 07/28/2019 2:52 PM CDT Noted Addendum Note - Adarsh Alfonso MD - 07/28/2019 2:39 PM CDT Addended by: Adarsh ALFONSO on: 07/28/2019 02:39 PM Modules accepted: Orders Telephone Encounter - Vidhya Bain LPN - 07/28/2019 1:43 PM CDT Nelia informed Telephone Encounter - Sofia Denson RN - 07/28/2019 1:34 PM CDT Spoke to [place] [facility] for ayaz. Telephone Encounter - Sofia Denson RN - 07/28/2019 1:30 PM CDT Xray not ordered. Telephone Encounter - Adarsh Alfonso MD - 07/28/2019 1:08 PM CDT Ayaz will be coming in tomorrow for labs/EKG and I believe a chest x-ray. If x- ray hasn't been ordered let me know and I will do so. Telephone Encounter - Patria Lydia - 07/28/2019 12:47 PM CDT Mercedes with [facility] called to say that patient has crackles in his lung on RT side andno fever. You can reach Mercedes at [phone]. documented in this encounter Plan of Treatment Not on filedocumented as of this encounter Procedures Procedure Name Priority Date/Time Associated Diagnosis Comme nts XR CHEST 2 VIEWS Routine 07/29/2019 11:40 AM Pre-op examinatio n Results for this CDT procedure are i n the results section. documented in this encounter Results X-ray Chest 2 Views (07/29/2019 11:40 AM CDT) Anatomical Region Laterality Modality Body Radiographic Imaging Specimen (Source) Anatomical Collection Method Collection Time Re ceived Time Location / / Volume Laterality 07/29/2019 11:40 AM CDT Impressions 07/29/2019 11:57 AM CDT IMPRESSION: No acute abnormality. Narrative 07/29/2019 11:57 AM CDT INDICATION: pre-op evaluation COMPARISON: None available FINDINGS: CHEST 2 VIEWS No pulmonary vascular cephalization. Hea rt size is within normal limits. ?? There is mild descending aortic tortuosi ty. ??There is mild linear scarring in the right mid upper lung. ??The lungs show no acute infiltrate. ??No pneumothorax or pleural effusion. Procedure Note Kellie Valdovinso MD - 07/29/2019 INDICATION: pre-op evaluation COMPARISON: None available FINDINGS: CHEST 2 VIEWS No pulmonary vascular cephalization. Hea rt size is within normal limits. There is mild descending aortic tortuosi ty. There is mild linear scarring in the right mid upper lung. The lungs s how no acute infiltrate. No pneumothorax or pleural effusion. IMPRESSION: No acute abnormality. Adarsh Alfonso MD IMG XR PROCEDURES documented in this encounter Visit Diagnoses Diagnosis Pre-op examination - Primary documented in this encounter Additional Health Concerns Infection Onset Date Last Indicated Resolved Time MSSA 10/04/2018 10/04/2018 06/28/2022 8:27 AM CDT documented as of this encounter Care Teams Automotive Designer Relationship Specialty Start Date End Date Adarsh Alofnso MD PCP - General 05/07/[address] [place] [address] documented as of this encounter
--- OUTSIDE RECORDS SUMMARY | 2022-06-30 08:31 | XMS_ITS | Encounter Summary ---
:1960 Author Organization [facility] Address [address] [place] [address] Care Team Providers Name Role Phone Adarsh Carpenter MD Primary Care Provider Encounter Details Date Type Department Care Team Description 06/25/2019 Anticoagulation - [facility] Anticoag [place], Other pulmonary Warfarin Visit [address] [facility] Salina Strong RN embolism without [place], [place] [address] [address] [place] [address] [facility] pulmonale, [place], [place] unspecified [phone] chronicity ([facility]) Social History Tobacco Use Types Packs/Day [...] encounter Progress Notes Salina Pratt RN - 06/25/2019 2:26 PM CDT [facility] called patient and left a detailed phone message instructing the patient to continue current warfarin dose of 5 mg every MWF, 2.5 mg all other days and recheck an INR in 2 weeks. There are a few days of unknown dosing, Fri, Sat, Sun, Mon and Tu and if pt had taken dosing as current, then he doesn't have to call [facility] back. If he took different dosing, then [facility] asked that he call us back to document what he took. AVS mailed. documented in this encounter Plan of Treatment Not on filedocumented as of this encounter Results (ABNORMAL) Protime-INR (07/08/2019 9:21 AM CDT) P athologist Signature Protime 41.0 (H) 10.6 - 12.9 07/08/2019 [facility] 12:55 PM CDT [facility] Comment: . INR 3.5 07/08/2019 12:55 PM CDT [facility] Comment: Suggested INR [...] Number [facility] [address] [place] [address] documented in this encounter Visit Diagnoses Diagnosis Other pulmonary embolism without acute c or pulmonale, unspecified chronicity (HCC) documented in this encounter Additional Health Concerns Infection Onset Date Last Indicated Resolved Time MSSA 10/04/2018 10/04/2018 06/28/2022 8:27 AM CDT documented as of this encounter Care Teams Change Control Specialist Relationship Specialty Start Date End Date Adarsh Carpenter MD PCP - General 05/07/[address] [place] [address] documented as of this encounter
--- OUTSIDE RECORDS SUMMARY | 2022-06-30 08:31 | XMS_ITS | Encounter Summary ---
:1960 Author Organization [facility] Address [address] [place] [address] Care Team Providers Name Role Phone Adarsh Carpenter MD Primary Care Provider Encounter Details Date Type Department Care Team Description 07/28/2019 Telephone [place] Adarsh Carpenter MD [address] [place], [place] [address] [place], [place] [phone] [address] (Wo rk) Social History Tobacco Use Types [...] Encounter - Sofia Denson RN - 07/28/2019 8:59 AM CDT Patient scheduled to come in tomorrow at 11:00 for labs and EKG. Telephone Encounter - Sofia Denson RN - 07/28/2019 8:04 AM CDT ----- Message from Adarsh Carpenter MD sent at 07/27/2019 11:43 AM CDT ----- After reviewing Dhruv's recent hospital admission he will need the following pre- op tests. . . CBC, Chem 8 and EKG. Call Dhruv's , Nelia, let her know that the above test need to be done after I reviewedhis hospital tests. The orders are in the computer. Once he has these done then fax everything to the appropriate hospital [facility] Telephone Encounter - Sofia Denson RN - 07/28/2019 8:03 AM CDT ----- Message from Adarsh Carpenter MD sent at 07/27/2019 11:44 AM CDT ----- When the EKG is done I should look at it while Dhruv is here to review before he leaves documented in this encounter Plan of Treatment Not on filedocumented as of this encounter Visit Diagnoses Not on filedocumented in this encounter Additional Health Concerns Infection Onset Date Last Indicated Resolved Time MSSA 10/04/2018 10/04/2018 06/28/2022 8:27 AM CDT documented as of this encounter Care Teams Saloonkeeper Relationship Specialty Start Date End Date Adarsh Carpenter MD PCP - General 05/07/[address] [place] [address] documented as of this encounter
--- OUTSIDE RECORDS SUMMARY | 2022-06-30 08:31 | XMS_ITS | Encounter Summary ---
:1960 Author Organization [facility] Address [address] [place] [address] Care Team Providers Name Role Phone Adarsh Carpenter MD Primary Care Provider Encounter Details Date Type Department Care Team Description 07/25/2019 Lab [place] Other pulmonary embolism [address] without acute cor pulmonale, [place], [place] [address] unspecified chronicity (HCC) [phone] Social History Tobacco Use Types Packs/Day Years [...] Date/Time Associated Diagnosis Comme nts GLOMERULAR Routine 07/25/2019 9:00 AM Other pulmonary Result s for this FILTRATION RATE CDT embolism without procedur e are in acute cor pulmonale, the res ults unspecified section. chronicity (HCC) CREATININE, SERUM Routine 07/25/2019 9:00 AM Other pulmonary R esults for this CDT embolism without procedure a re in acute cor pulmonale, the res ults unspecified section. chronicity (HCC) documented in this encounter Results Glomerular filtration rate (GFR) (07/25/2019 9:00 AM CDT) athologist Signature GFR >60 07/25/2019 [facility] 9:25 AM CDT [facility] >60 07/25/2019 [facility] [place] GFR 9:25 AM T [facility] Comment: GFR calculated from serum creatinine v alue Chronic Kidney Disease less than 60 mL/m in/1.73 m2 Kidney Failure less than 15 mL/min/1.73 m2 Note: effective 02/13/07 IDCT-Traceable MDRD Study Equation used. Specimen Anatomical Collection Method Collection Time Receive d Time (Source) Location / / Volume Laterality 07/25/2019 9:00 AM 9 9:00 CDT AM CDT Jodi Gee APRN, CNP LAB BLOOD ORDERABLES Performing Organization Address City/State/ZIP Code Phon e Number [facility] [address] [place] [address] Creatinine, Serum (07/25/2019 9:00 AM CDT) athologist Signature Creatinine 0.8 0.6 - 1.4 07/25/2019 [facility] mg/dL 9:25 AM CDT [place] Comment: . Specimen Anatomical Collection Method Collection Time Receive d Time (Source) Location / / Volume Laterality Blood 07/25/2019 9:00 AM 9 9:00 CDT AM CDT Jodi Gee APRN, [facility] LAB BLOOD ORDERABLES Performing Organization Address City/State/ZIP Code Phon e Number [facility] [address] [place] [address] documented in this encounter Visit Diagnoses Diagnosis Other pulmonary embolism without acute c or pulmonale, unspecified chronicity (HCC) documented in this encounter Additional Health Concerns Infection Onset Date Last Indicated Resolved Time MSSA 10/04/2018 10/04/2018 06/28/2022 8:27 AM CDT documented as of this encounter Care Teams Senior Peoplesoft Developer Relationship Specialty Start Date End Date Adarsh Carpenter MD PCP - General 05/07/[address] [place] [address] documented as of this encounter
--- OUTSIDE RECORDS SUMMARY | 2022-06-30 08:31 | XMS_ITS | Encounter Summary ---
:1960 Author Organization [facility] Address [address] [place] [address] Care Team Providers Name Role Phone Adarsh Carpenter MD Primary Care Provider Encounter Details Date Type Department Care Team Description 06/16/2019 Anticoagulation - [facility] Anticoag [place], Other pulmonary Warfarin Visit [address] [facility] [place], SOCIAL MEDIA CONTENT SPECIALIST, embolism without [place], [place] MANAGER TRANSPLANT [place] [id number] [facility] pulmonale, [facility] unspecified [place], [place] chronicity (HC C) [phone] Social History [...] of this encounter Progress Notes Ti Ellison RN - 06/16/2019 9:24 AM CDT INR: 4.4 from 06/13/19 Dose: hold 06/16, 2.5 mg 06/17-06/19 Recheck date: 06/20 Patient given above dosing instructions. She states patient took his scheduled dose over the weekend. states patient has not had any changes with medications, no illness, no alcohol use. Denies any s/s of bleeding. Safety precautions reviewed. She verbalized understanding. documented in this encounter Plan of Treatment Not on filedocumented as of this encounter Results (ABNORMAL) Protime-INR (06/24/2019 9:10 AM CDT) athologist Signature Protime 29.2 (H) 10.6 - 12.9 06/25/2019 [facility] 1:27 PM CDT [facility] Comment: . INR 2.5 06/25/2019 1:[address] [facility] Comment: Suggested INR Therapeutic Ranges* [...] Address City/State/ZIP Code Phon e Number [facility] [address] [place] [address] documented in this encounter Visit Diagnoses Diagnosis Other pulmonary embolism without acute c or pulmonale, unspecified chronicity (HCC) documented in this encounter Additional Health Concerns Infection Onset Date Last Indicated Resolved Time MSSA 10/04/2018 10/04/2018 06/28/2022 8:27 AM CDT documented as of this encounter Care Teams Metal Temperer Relationship Specialty Start Date End Date Adarsh Carpenter MD PCP - General 05/07/[address] [place] [address] documented as of this encounter
--- OUTSIDE RECORDS SUMMARY | 2022-06-30 08:31 | XMS_ITS | Encounter Summary ---
:[address] [facility] Address [address] [place] [address] Care Team Providers Name Role Phone Adarsh Carpenter MD Primary Care Provider Reason for Visit Reason Comments Pre-op Exam dos 08/01/2019, [place] Encounter Details Date Type Department Care Team Description 07/23/2019 Consult [place] Adarsh Carpenter, Pre-op evaluation [address] [address] (Primary Dx) [place], [place] [address] [phone] [place] [address] Social History Tobacco Use Types Packs/Day Years [...] Sign Reading Time Taken Comments Blood Pressure 118/82 07/23/2019 1:43 PM CDT Pulse 94 07/23/2019 1:43 PM CDT Temperature 36.3 ??C (97.4 ??F) 07/23/2019 1:43 PM CDT Respiratory Rate 16 07/23/2019 1:43 PM CDT Oxygen Saturation 93% 07/23/2019 1:43 PM CDT Inhaled Oxygen Concentration - - Weight 86.2 kg (190 lb) 07/23/2019 1:43 PM patient repo rted CDT Height 185.4 cm (6' 1) 07/23/2019 1:43 PM patient repo rted CDT Body Mass Index 25.07 07/23/2019 1:43 PM CDT documented in this encounter Progress Notes Sofia Denson RN - 07/23/2019 1:40 PM CDT 16.5 neck circumference. Adarsh Carpenter MD - 07/23/2019 1:40 PM CDT Subjective Patient ID: Dwain Hinds is a 59 y.o. male. HPI the patient is here today for preoperative evaluation prior to a scheduled surgical procedure that will take place on 08/01/2019 up at [facility] in the [facility]. The procedure is to removekidney stone and bladder stone burden from the right renal tract system. The patient's pertinent medical history in regard to this upcoming procedure is that he has a history of recurrent urosepsis that is felt to be complicated from recurrent kidney stones and bladder stones. 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 Approximately 1-1/2 years ago the patient underwent a similar procedure with removal of kidney stoneand bladder stone and patient subsequently did not have any further significant uroseptic events until more recently when he was hospitalized at the [facility] for urosepsis. It has however been noted based upon CT scans dating back to October 2018 the patient has had a history of recurrent stones noted. The patient is currently taking Cipro for his recent infection. He is recovered from the hospitalization as returned home and is currently feeling well. Another complicating feature of his medical history is of pulmonary embolus that occurred more than a year ago and because of his inactivity and immobility he will be on Coumadin lifelong. The patient's other medical history is as follows SMOKING quit more than 30 years ago ALCOHOL none ALLERGIES listed to penicillin and bee stings. PAST SURGICAL HISTORY includes the following Tonsillectomy Surgical procedures to reduce fractures to left arm right leg. He had a screw placed in the fractured left big toe Achilles tendon repair on the left Prior surgical procedure to remove kidney stones and bladder stones a year and a half ago Other PAST HOSPITALIZATIONS primarily for sepsis and surgical procedures Current MEDICATIONS include the following Cipro 500 1 twice a day for I believe a total of 10 days Lactulose once or twice a day for constipation Oxybutynin 5 mg twice a day Coumadin 5 mg on Sunday and Sunday 2.5 mg all other days he is followed by [facility] clinic. 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 It should be noted that his takes careof him in their home environment. FAMILY HISTORY his mother at age 89 from Colon cancer and complications of COPD father at age 74 heart disease 3 brothers and one sister healthy He is up-to-date with a colonoscopy states he was done at [facility] in [place] I do not have the precise date we will have to look for that. Immunization status is up-to-date except he should get the new shingles vaccination. It should be noted that the patient has had a cardiac echogram that showed an ejection fraction of approximately 40% though there is no history of cardiac atherosclerotic disease or heart attacks that we are aware of or the patient is aware of. Review of Systems The patient currently states that he is having no fevers or chills No shortness of breath or chest pain or palpitations No particular GI issues appetite is good no nausea no throwing up he does have some problems with constipation but generally speaking lactulose or other means is beneficial. No blood in stool no hemorrhoids Urination urination problem is related to neurogenic bladder He is otherwise not currently having any particular issues with pain or discomfort no history of skin lesions or unusual lumps or bumps. Patient has no use of his lower extremities or from the chest down. Minimal use of upper extremities. His speech is generally good and not significantly currently affected by his MS. The patient does have some risk factors for possible obstructive sleep apnea he is never necessarilyhad a sleep study he may have had an overnight oximetry at one time and I think it is appropriate for us to recheck an overnight oximetry as he does have some risk factors in the form of obesity body habitus and somewhat enlarged tongue or partially obstructing tongue. Objective Physical Exam He is alert he appears comfortable currently sitting in his motorized wheelchair. Blood pressure 118/82 Pulse 94 regular rate and rhythm Temp 97.4 Current weight approximately 190 pounds Respirations 16 not labored O2 sats 93% on room air Ears are clear with a little bit of cerumen Pupils equal and reactive conjunctiva clear Tongue is moist throat is clear dentition could be in better shape. Neck no adenopathy no thyromegaly no carotid bruits Lungs are generally clear though little decreased and expiratory uptake. No wheeze rales or rhonchi Cardiac is regular rate and rhythm without heart murmur Abdomen is soft not tender he does have skin sensation in the chest and abdomen areas Extremities have some dependent edema and are otherwise immobile. Patient has minimal use of upper extremities. Patient was recently hospitalized I believe he had a full set of complimentary labs including CBC chemistries chest x-rays and possible EKG. We will try to find those results include them with this report if these results are not available we will have the patient return and get appropriate laboratorytesting. Assessment/Plan Diagnoses and all orders for this visit: Pre-op evaluation The overall assessment is a preoperative evaluation prior to elective surgical procedure to remove renal stone and bladder stone burden. Primary secondary diagnosis would be recurrent history of sepsis secondary to neurogenic bladder frequent catheterization and complicated by kidney and bladder stone burden. Multiple sclerosis as discussed with paralysis from the chest down him in partial paralysis of upperextremities. History of pulmonary embolus on chronic Coumadin therapy The PLAN at this time is to give him the surgical okay for his procedure to be done under anesthesiaof choice. We will acquire appropriate laboratory testing and update chest x-ray and/or EKG may havehave not been done recently. [facility] his Coumadin therapy during this transition phase he will come off Coumadin he will be placed on Lovenox therapy his last Lovenox shot before the procedure will be approximately 12 hours after the procedure he can restart the Lovenox as well as Coumadin per coagulation clinic input. documented in this encounter Plan of Treatment Not on filedocumented as of this encounter Visit Diagnoses Diagnosis Pre-op evaluation - Primary documented in this encounter Additional Health Concerns Infection Onset Date Last Indicated Resolved Time MSSA 10/04/2018 10/04/2018 06/28/2022 8:27 AM CDT documented as of this encounter Care Teams Business Services Sales Agent Relationship Specialty Start Date End Date Adarsh Carpenter MD PCP - General 05/07/[address] [place] [address] documented as of this encounter
--- OUTSIDE RECORDS SUMMARY | 2022-06-30 08:32 | XMS_ITS | Encounter Summary ---
:1960 Author Organization [facility] Address [address] [place] [address] Care Team Providers Name Role Phone Adarsh Carpenter MD Primary Care Provider Encounter Details Date Type Department Care Team Description 03/24/2019 Anticoagulation - [facility] Anticoag [place], Other pulmonary Warfarin Visit [address] [facility] Shannan Viveros PA-C embolism without [place], [place] acute [place] [id number] pulmonale, unspecified chronicity (HCC ) Social History Tobacco Use [...] documented as of this encounter Progress Notes Shannan Castro PA-C - 03/24/2019 1:36 PM CDT INR: 2.4 (goal 2.5-3.0). Patient states he might have eaten just a few more greens the past few weeks (asparagus) but he tries to watch his greens intake. He has previously been stable on current maintenance dose. Dose: No change. 5 mg on Mon, Wed, Fri; 2.5 mg all other days. Recheck date: 4 weeks, 04/18/19 Communicated above instructions with patient. Patient verbalized understanding. AVS mailed. documented in this encounter Plan of Treatment Not on filedocumented as of this encounter Results (ABNORMAL) Protime-INR (04/18/2019 9:20 AM CDT) P athologist Signature Protime 32.6 (H) 10.6 - 12.9 04/18/2019 [facility] 12:47 PM CDT [facility] Comment: . INR 2.8 04/18/2019 12:47 PM CDT [facility] Comment: Suggested INR Therapeutic Ranges* Intensity ?Standard ?Higher ? 2.0-3.0 ? 2.5-3.5 *Target INR should be individualized. Occasionally, INR range 3.0-4.5 may be appropriate. Higher intensity INR: Mechanical heart valve, etc. Specimen Anatomical Collection Method Collection Time Receive d Time (Source) Location / / Volume Laterality Blood 04/18/2019 9:20 AM 9 CDT 12:09 PM CDT Shannan Castro PA-C LAB BLOOD ORDERABLES Performing Organization Address City/State/[facility] Code Phon e Number [facility] [address] [place] [address] documented in this encounter Visit Diagnoses Diagnosis Other pulmonary embolism without acute c or pulmonale, unspecified chronicity (HCC) documented in this encounter Additional Health Concerns Infection Onset Date Last Indicated Resolved Time MSSA 10/04/2018 10/04/2018 06/28/2022 8:27 AM CDT documented as of this encounter Care Teams Freezing Room Worker Relationship Specialty Start Date End Date Adarsh Carpenter MD PCP - General 05/07/[address] [place] [address] documented as of this encounter
--- OUTSIDE RECORDS SUMMARY | 2022-06-30 08:32 | XMS_ITS | Encounter Summary ---
:1960 Author Organization [facility] Address [address] [place] [address] Care Team Providers Name Role Phone Adarsh Carpenter MD Primary Care Provider Encounter Details Date Type Department Care Team Description 02/17/2019 Lab [place] Other pulmonary embolism [address] without acute cor pulmonale, [place], [place] [address] unspecified chronicity (HCC) [phone] Social History Tobacco Use Types Packs/Day Years [...] or relatives? How often do you attend quaker or 1 to 4 times per year 04/01 episcopal services? Do you belong to any clubs or No 04/24/2022 organizations such as quaker groups, unions, fraternal or athletic groups, or [...] Date/Time Associated Diagnosis Comme nts PROTIME-INR Routine 02/17/2019 9:17 AM Other pulmonary Result s for this CDT embolism without acute proce dure are in cor pulmonale, the results unspecified chronicity secti on. (HCC) documented in this encounter Results (ABNORMAL) Protime-INR (02/17/2019 9:17 AM CDT) P athologist Signature Protime 38.7 (H) 10.6 - 12.9 02/17/2019 [facility] 1:14 PM CDT [facility] Comment: . INR 3.4 02/17/2019 1:14 PM CDT [facility] Comment: Suggested INR Therapeutic Ranges* Intensity ?Standard ?Higher ? 2.0-3.0 ? 2.5-3.5 *Target INR should be individualized. Occasionally, INR range 3.0-4.5 may be appropriate. Higher intensity INR: Mechanical heart valve, etc. Specimen Anatomical Collection Method Collection Time Receive d Time (Source) Location / / Volume Laterality Blood (Blood, 02/17/2019 9:17 AM 02/18/20 19 Venous) CDT 12:53 PM CDT Jodi Gee APRN, [employer] BLOCKMAKER LAB BLOOD ORDERABLES Performing Organization Address City/State/ZIP Code Phon e Number [facility] [address] [place] [address] documented in this encounter Visit Diagnoses Diagnosis Other pulmonary embolism without acute c or pulmonale, unspecified chronicity (HCC) documented in this encounter Additional Health Concerns Infection Onset Date Last Indicated Resolved Time MSSA 10/04/2018 10/04/2018 06/28/2022 8:27 AM CDT documented as of this encounter Care Teams Automatic Mold Sander Relationship Specialty Start Date End Date Adarsh Carpenter MD PCP - General 05/07/[address] [place] [address] documented as of this encounter
--- OUTSIDE RECORDS SUMMARY | 2022-06-30 08:32 | XMS_ITS | Encounter Summary ---
:1960 Author Organization [facility] Address [address] [place] [address] Care Team Providers Name Role Phone Adarsh Carpenter MD Primary Care Provider Encounter Details Date Type Department Care Team Description 10/02/2018 Orders Only [place] Adarsh Carpenter Frequency of [address] MD Hang micturition (Primary [place], [place] [address] Dx) [phone] [place] [address] Social History Tobacco Use Types Packs/Day Years [...] filedocumented as of this encounter Results (ABNORMAL) Urinalysis with reflex microscopic (catheter) (10/02/2018 10:00 AM LATHE SCALPER OPERATOR) [facility] Method Time Signature Type Saenz Insert 10/02/2018 [facility] 3:02 PM LATHE SCALPER OPERATOR [place] Color, Urine TEE (A) YELLOW 10/02/2018 [facility] 3:02 PM LATHE SCALPER OPERATOR [place] Clarity, CLEAR CLEAR 10/02/2018 [facility] Urine 3:02 PM LATHE SCALPER OPERATOR [place] Glucose, NEGATIVE NEGATIVE 10/02/2018 [facility] Urine mg/dL 3:02 PM LATHE SCALPER OPERATOR [place] Bilirubin, NEGATIVE NEGATIVE 10/02/2018 [facility] Urine 3:02 PM LATHE SCALPER OPERATOR [place] Ketones, NEGATIVE NEGATIVE 10/02/2018 [facility] Urine mg/dL 3:02 PM LATHE SCALPER OPERATOR [place] Specific 1.025 1.000 10/02/2018 [facility] [place], ->=1.030 3:02 PM LATHE SCALPER OPERATOR [place] Urine Blood, Urine TRACE (A) NEGATIVE 10/02/2018 [facility] 3:02 PM LATHE SCALPER OPERATOR [place] pH, Urine 7.0 5.0 - 7.0 10/02/2018 [facility] 3:02 PM LATHE SCALPER OPERATOR [place] Protein, 30 (A) NEGATIVE-TRA 10/02/2018 [facility] Urine CE mg/dL 3:02 PM LATHE SCALPER OPERATOR [place] Urobilinogen, 1.0 0.2 - 1.0 10/02/2018 [facility] Urine E.U./dL 3:02 PM LATHE SCALPER OPERATOR [place] Nitrite, POSITIVE (A) NEGATIVE 10/02/2018 [facility] Urine 3:02 PM LATHE SCALPER OPERATOR [place] Leukocytes, LARGE (A) NEGATIVE 10/02/2018 [facility] Urine 3:02 PM LATHE SCALPER OPERATOR [place] Specimen Anatomical Collection Method Collection Time Receive d Time (Source) Location / / Volume Laterality Urine (Saenz 10/02/2018 10:00 10/02/2018 2:53 Insert) AM LATHE SCALPER OPERATOR PM LATHE SCALPER OPERATOR Adarsh Carpenter MD LAB URINE ORDERABLES Performing Organization Address City/State/ZIP Code Phon e Number [facility] [address] [place] [address] documented in this encounter Visit Diagnoses Diagnosis Frequency of micturition - Primary Urinary frequency documented in this encounter Care Teams Religion Professor Relationship Specialty Start Date End Date Adarsh Carpenter MD PCP - General 05/07/[address] [place] [address] documented as of this encounter
--- OUTSIDE RECORDS SUMMARY | 2022-06-30 08:32 | XMS_ITS | Encounter Summary ---
:[address] [facility] Address [address] [place] [address] Care Team Providers Name Role Phone Adarsh Carpenter MD Primary Care Provider Encounter Details Date Type Department Care Team Description 11/14/2018 Lab [place] Other pulmonary embolism [address] without acute cor pulmonale, [place], [place] [address] unspecified chronicity (HCC) [phone] Social History Tobacco Use Types Packs/Day Years [...] Date/Time Associated Diagnosis Comme nts PROTIME-INR Routine 11/14/2018 8:58 AM Other pulmonary Result s for this GUEST SERVICE TEAM LEADER embolism without acute proce dure are in cor pulmonale, the results unspecified chronicity secti on. (HCC) documented in this encounter Results (ABNORMAL) Protime-INR (11/14/2018 8:58 AM GUEST SERVICE TEAM LEADER) P athologist Signature Protime 29.0 (H) 10.6 - 12.9 11/14/2018 [facility] 1:01 PM GUEST SERVICE TEAM LEADER [facility] Comment: . INR 2.5 11/14/2018 1:01 PM GUEST SERVICE TEAM LEADER [facility] Comment: Suggested INR Therapeutic Ranges* Intensity ?Standard ?Higher ? 2.0-3.0 ? 2.5-3.5 *Target INR should be individualized. Occasionally, INR range 3.0-4.5 may be appropriate. Higher intensity INR: Mechanical heart valve, etc. Specimen Anatomical Collection Method Collection Time Receive d Time (Source) Location / / Volume Laterality Blood (Blood, 11/14/2018 8:58 AM 11/14/19 19 Venous) GUEST SERVICE TEAM LEADER 12:14 PM GUEST SERVICE TEAM LEADER D. Hang Carpenter MD LAB BLOOD ORDERABLES Performing Organization Address City/State/ZIP Code Phon e Number [facility] [address] [place] [address] documented in this encounter Visit Diagnoses Diagnosis Other pulmonary embolism without acute c or pulmonale, unspecified chronicity (HCC) documented in this encounter Additional Health Concerns Infection Onset Date Last Indicated Resolved Time MSSA 10/04/2018 10/04/2018 06/28/2022 8:27 AM CDT documented as of this encounter Care Teams Website Programmer Relationship Specialty Start Date End Date Adarsh Carpenter MD PCP - General 05/07/[address] [place] [address] documented as of this encounter
--- OUTSIDE RECORDS SUMMARY | 2022-06-30 08:32 | XMS_ITS | Encounter Summary ---
:1960 Author Organization [facility] Address [address] [place] [address] Care Team Providers Name Role Phone Adarsh Carpenter MD Primary Care Provider Reason for Visit Reason Comments paper work Encounter Details Date Type Department Care Team Description 05/07/2019 Office Visit Adarsh Weaver Multiple sclerosis (HCC) (Pr imary Dx); [address] MD [place] Constipation, [place] [address] [place] [address] Social History Tobacco Use Types Packs/Day Years [...] 1 to 4 times per year 04/01 buddhism services? Do you belong to any clubs [...] Sign Reading Time Taken Comments Blood Pressure 104/60 05/07/2019 10:02 AM CDT Pulse 86 05/07/2019 10:02 AM CDT Temperature 36.3 ??C (97.4 ??F) 05/07/2019 10:02 AM CDT Respiratory Rate 16 05/07/2019 10:02 AM CDT Oxygen Saturation 90% 05/07/2019 10:02 AM CDT Inhaled Oxygen Concentration - - Weight - - Height - - Body Mass Index - - documented in this encounter Patient Instructions Patient InstructionsD. Hang Carpenter MD - 05/07/2019 10:00 AM CDT You can stop taking the Metoprolol at this time. Just make sure you get your blood pressure and pulse checked each time you come in for your INR blood test. We will write a letter to qualify you for HOMEBOUND STATUS. Increase your Lactulose to twice a day and this doesn't help then increase to three times per day and if this doesn't work let me know. documented in this encounter Progress Notes Adarsh Carpenter MD - 05/07/2019 10:00 AM CDT Estab Patient Visit Subjective Patient ID: Dwain Hinds is a 59 y.o. male. HPI The patient is here today to be certified as being home bound such that they can qualify for services that then would be covered for by Medicare. The patient is our 59-year-old individual who has had a diagnosis of multiple sclerosis that was first diagnosed in 2004. He probably had it for several years before the diagnosis. There was a period of time where he was in the accelerating phase of multiple sclerosis but in the last number of years he has been relatively stable. He is currently not taking any specific medications for multiple sclerosis as they were of little benefit for him in the past. His current most prominent deficit from his MS is his paralysis basically from the chest down. He has actually no motor function of either lower extremity though he does have fairly good use of both upper extremities. His vision has not been dramatically affected his mentation and mental status are stable and he has fairly good sensation from the upper part of the chest on through the shoulder arm head and neck area. However he requires the assistance of 1 occasionally 2 individuals to help with his daily needs. He is not left at home for any period of time on his own because of potential needs. However once he is up in his motorized wheelchair he is able to move and get around independently in the home environment at that time. He does require catheterizations 4 times a day which his does for him. He has had periods of frequent urinary tract infections and sepsis. However last year he had some kidney stones and/or bladder stones removed and that was beneficial for him and that he has not had recurrent infections since. He follows with a urologist for the above and he is due for another CT scan in the near future as there is apparently some stones growing again that they are watching and he may require another procedure again. He does have significant issues with constipation where he may not have a BM for 5 or 6 days and then when he has when it may not be a very good BM but just more solid pebble-like stool. A question arose as to whether or not he would be a candidate for an elective colostomy. This is usually reserved for individuals that are having chronic diarrhea uncontrolled bowel habits and/or issues with sacral decubiti and poor healing and osteomyelitis. The patient in those respects has none of those features. He is currently taking lactulose just 15 mL or half an ounce once a day and for now they are going up to twice a day and then up to 3 times a day if needed if that does not work they are to call me andwe can then make other recommendations at that time. We will also check with [facility] general surgery department to see if they know what qualifying conditions the patient needs to have to potentiallyget an elective colostomy. We also reviewed his medication list he is no longer taking any antidepressants he does not need anybarrier cream to the perirectal area as a small decubiti ulcer has healed. He was placed on metoprolol once a day a year ago when he had rapid pulse secondary to the pulmonary embolus. However his pulse and blood pressure doing very well and there is no reason to continue on this medication at this time so that would be discontinued. The patient will continue on Coumadin lifelong secondary to a pulmonary embolus that he had about a year ago. At this point in time we can certainly certify the patient for homebound status and we will send a copy of that letter to his home health agency [facility] as well as to the patient's . Review of Systems Objective Physical Exam Assessment/Plan Diagnoses and all orders for this visit: Multiple sclerosis (HCC) Constipation, unspecified constipation type - lactulose (CHRONULAC) 10 GM/15ML solution; Take 15 mL (10 g total) by mouth 3 (three) times a day Consult time was 25 minutes and all 25 minutes was spent on reviewing his medical history and reviewing his current disabilities and then coordination of cares qualifying for homebound status. documented in this encounter Plan of Treatment Not on filedocumented as of this encounter Visit Diagnoses Diagnosis Multiple sclerosis (HCC) - Primary Multiple sclerosis Constipation, unspecified constipation t ype documented in this encounter Additional Health Concerns Infection Onset Date Last Indicated Resolved Time MSSA 10/04/2018 10/04/2018 06/28/2022 8:27 AM CDT documented as of this encounter Care Teams Visitor Services Associate Relationship Specialty Start Date End Date Adarsh Carpenter MD PCP - General 05/07/[address] [place] [address] documented as of this encounter
--- OUTSIDE RECORDS SUMMARY | 2022-06-30 08:32 | XMS_ITS | Encounter Summary ---
:1960 Author Organization [facility] Address [address] [place] [address] Care Team Providers Name Role Phone Adarsh Carpenter MD Primary Care Provider Encounter Details Date Type Department Care Team Description 02/17/2019 Anticoagulation - SE Jodi Gee Other p ulmonary Warfarin Visit Anticoag/Internal N., CHOPPED STRAND OPERATOR, ACCOUNTING MACHINE SERVICER embolism without Medicine - Third [address] pulmonale, [address] [place], [place] [address] chronicity ([facility]) [facility] [phone] Social History Tobacco Use Types Packs/Day Years [...] this encounter Progress Notes Jodi Gee APRN, BONI - 02/17/2019 1:30 PM CDT INR: 3.4 Dose: 2.5 mg tonight 02/17/19; then resume 5 mg every Mon, Wed, Fri; 2.5 mg all other days Recheck date: 03/03/19 ACC spoke with patient's Nelia regarding INR results. She stated the patient has increased his Tylenol use of the past three days and he typically does not take any. Denies any other medication changes. She stated he would like to increase his green intake. Patient instructed to take warfarin 2.5 mg tonight; then resume 5 mg every Mon, Wed, Fri; 2.5 all other days and recheck in 2 weeks. Nelia verbalized understanding. AVS mailed. documented in this encounter Plan of Treatment Not on filedocumented as of this encounter Results (ABNORMAL) Protime-INR (02/28/2019 9:00 AM CDT) P athologist Signature Protime 28.4 (H) 10.6 - 12.9 02/28/2019 [facility] 1:01 PM CDT [facility] Comment: . INR 2.5 02/28/2019 1:01 PM CDT [facility] Comment: Suggested INR Therapeutic Ranges* Intensity ?Standard ?Higher ? 2.0-3.0 ? 2.5-3.5 *Target INR should be individualized. Occasionally, INR range 3.0-4.5 may be appropriate. Higher intensity INR: Mechanical heart valve, etc. Specimen Anatomical Collection Method Collection Time Receive d Time (Source) Location / / Volume Laterality Blood (Blood, 02/28/2019 9:00 AM 02/29/20 19 Venous) CDT 12:29 PM CDT Jodi Gee APRN, CNP LAB BLOOD ORDERABLES Performing Organization Address City/State/ZIP Code Phon e Number [facility] [address] [place] [phone] documented in this encounter Visit Diagnoses Diagnosis Other pulmonary embolism without acute c or pulmonale, unspecified chronicity (HCC) documented in this encounter Additional Health Concerns Infection Onset Date Last Indicated Resolved Time MSSA 10/04/2018 10/04/2018 06/28/2022 8:27 AM CDT documented as of this encounter Care Teams [place] Relationship Specialty Start Date End Date Adarsh Carpenter MD PCP - General 05/07/[address] [place] [address] documented as of this encounter
--- OUTSIDE RECORDS SUMMARY | 2022-06-30 08:32 | XMS_ITS | Encounter Summary ---
:1960 Author Organization [facility] Address [address] [place] [address] Care Team Providers Name Role Phone Adarsh Carpenter MD Primary Care Provider Encounter Details Date Type Department Care Team Description 12/27/2018 Lab [place] Other pulmonary embolism [address] without acute cor pulmonale, [place], [place] [address] unspecified chronicity (HCC) [phone] Social History Tobacco Use Types Packs/Day Years [...] Date/Time Associated Diagnosis Comme nts PROTIME-INR Routine 12/27/2018 9:10 AM Other pulmonary Result s for this CDT embolism without acute proce dure are in cor pulmonale, the results unspecified chronicity secti on. (HCC) documented in this encounter Results (ABNORMAL) Protime-INR (12/27/2018 9:10 AM CDT) P athologist Signature Protime 28.4 (H) 10.6 - 12.9 12/27/2018 [facility] 12:41 PM CDT [facility] Comment: . INR 2.5 12/27/2018 12:41 PM CDT [facility] Comment: Suggested INR Therapeutic Ranges* Intensity ?Standard ?Higher ? 2.0-3.0 ? 2.5-3.5 *Target INR should be individualized. Occasionally, INR range 3.0-4.5 may be appropriate. Higher intensity INR: Mechanical heart valve, etc. Specimen Anatomical Collection Method Collection Time Receive d Time (Source) Location / / Volume Laterality Blood (Blood, 12/27/2018 9:10 AM 12/28/19 19 Venous) CDT 12:23 PM CDT D. Hang Carpenter MD LAB BLOOD ORDERABLES Performing Organization Address City/State/ZIP Code Phon e Number [facility] [address] [place] [address] documented in this encounter Visit Diagnoses Diagnosis Other pulmonary embolism without acute c or pulmonale, unspecified chronicity (HCC) documented in this encounter Additional Health Concerns Infection Onset Date Last Indicated Resolved Time MSSA 10/04/2018 10/04/2018 06/28/2022 8:27 AM CDT documented as of this encounter Care Teams Logistics Tech Relationship Specialty Start Date End Date Adarsh Carpenter MD PCP - General 05/07/[address] [place] [address] documented as of this encounter
--- OUTSIDE RECORDS SUMMARY | 2022-06-30 08:32 | XMS_ITS | Encounter Summary ---
:1960 Author Organization [facility] Address [address] [place] [address] Care Team Providers Name Role Phone Adarsh Carpenter MD Primary Care Provider Reason for Visit Reason Comments Med Refill Encounter Details Date Type Department Care Team Description 01/07/2019 Refill [place] Adarsh Carpenter, Detrusor instability [address] (Primary Dx) [place], [place] [address] [phone] [place] [address] Social History Tobacco Use Types Packs/Day Years [...] Telephone Encounter - Carmen Ríos MA - 01/08/2019 8:27 AM CDT Oxybutynin 5mg last rx 01/23/18 #180, 3 refills Last date med(s) reviewed: 01/11/18 No Appt scheduled Please advise if patient is in need of an appointment and/or any pre-visit labs, and if necessary, please work with your nurses and PSR's to assist in this process. 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
--- OUTSIDE RECORDS SUMMARY | 2022-06-30 08:32 | XMS_ITS | Encounter Summary ---
:1960 Author Organization [facility] Address [address] [place] [address] Care Team Providers Name Role Phone Adarsh Carpenter MD Primary Care Provider Encounter Details Date Type Department Care Team Description 11/14/2018 Anticoagulation - SE Mikayla Tenorio p ulmonary Warfarin Visit Anticoag/Internal M, PharmD embolism without Medicine - Third [address] [place] [address] Street acute cor [address] pulmonale, [address] [place], [place] [address] chronicity (HCC) [address] [phone] Social History Tobacco Use Types Packs/Day Years [...] documented as of this encounter Progress Notes Mikayla Tenorio PharmD - 11/14/2018 1:55 PM CST INR: 2.5 Dose: 5mg Sun/Sun/Sun; 2.5mg all other days Recheck date: 12/12 Patient instructed to remain on current warfarin dose and recheck INR in 4 weeks. Patient verbalizedunderstanding. Report mailed. ROAD CAR CLEANER documented in this encounter Plan of Treatment Not on filedocumented as of this encounter Results (ABNORMAL) Protime-INR (12/27/2018 9:10 AM CDT) P athologist Signature Protime 28.4 (H) 10.6 - 12.9 12/27/2018 [facility] 12:41 PM T [facility] Comment: . INR 2.5 12/27/2018 12:41 PM CDT [facility] Comment: Suggested INR Therapeutic Ranges* Intensity ?Standard ?Higher ? 2.0-3.0 ? 2.5-3.5 *Target INR should be individualized. Occasionally, INR range 3.0-4.5 may be appropriate. Higher intensity INR: Mechanical heart valve, etc. Specimen Anatomical Collection Method Collection Time Receive d Time (Source) Location / / Volume Laterality Blood (Blood, 12/27/2018 9:10 AM 12/28/19 19 Venous) CDT 12:23 PM CDT Adarsh Carpenter MD LAB BLOOD ORDERABLES Performing Organization Address City/State/ZIP Code Phon e Number [facility] [address] [place] [address] documented in this encounter Visit Diagnoses Diagnosis Other pulmonary embolism without acute c or pulmonale, unspecified chronicity (HCC) documented in this encounter Additional Health Concerns Infection Onset Date Last Indicated Resolved Time MSSA 10/04/2018 10/04/2018 06/28/2022 8:27 AM CDT documented as of this encounter Care Teams Mail Processing Clerk Relationship Specialty Start Date End Date Adarsh Carpenter MD PCP - General 05/07/[address] [place] [address] documented as of this encounter
--- OUTSIDE RECORDS SUMMARY | 2022-06-30 08:32 | XMS_ITS | Encounter Summary ---
:1960 Author Organization [facility] Address [address] [place] [address] Care Team Providers Name Role Phone Adarsh Carpenter MD Primary Care Provider Encounter Details Date Type Department Care Team Description 10/06/2018 Orders Only [place] Adarsh Carpenter Acute cystitis without [address] MD Hang hematuria (Primary Dx) [place], [place] [address] [facility] [address] [place] [address] Social History Tobacco Use Types Packs/Day Years [...] as of this encounter Visit Diagnoses Diagnosis Acute cystitis without hematuria - Prima ry documented in this encounter Additional Health Concerns Infection Onset Date Last Indicated Resolved Time MSSA 10/04/2018 10/04/2018 06/28/2022 8:27 AM CDT documented as of this encounter Care Teams Oyster Worker Relationship Specialty Start Date End Date Adarsh Carpenter MD PCP - General 05/07/[address] [place] [address] documented as of this encounter
--- OUTSIDE RECORDS SUMMARY | 2022-06-30 08:32 | XMS_ITS | Encounter Summary ---
:1960 Author Organization [facility] Address [address] [place] [address] Care Team Providers Name Role Phone Adarsh Alfonso MD Primary Care Provider Reason for Visit Reason Comments Med Refill Encounter Details Date Type Department Care Team Description 02/07/2019 Refill [place] Adarsh Alfonso, Essential hypertension [address] [facility] [address] (Primary Dx) [place], [place] [address] [phone] [place] [address] Social History Tobacco Use Types Packs/Day Years [...] documented as of this encounter Miscellaneous Notes Addendum Note - Adarsh Alfonso MD - 02/10/2019 9:22 AM CDT Addended by: Adarsh ALFONSO on: 02/10/2019 09:22 AM Modules accepted: Orders Telephone Encounter - Sofia Denson RN - 02/10/2019 8:19 AM CDT Please review Rx request Telephone Encounter - Glenys Galvin MA - 02/09/2019 12:55 PM CDT METOPROLOL SUCCINATE ER 25MG TB24, #90 x 3 refills 02/28/2018 BP: 116/62 - 03/06/2018 Component Latest Ref Rng & Units 02/22/2018 Fasting? Yes Sodium 135 - 145 mmol/L 141 Potassium 3.5 - 5.1 mmol/L 3.9 Chloride 98 - 107 mmol/L 103 CO2 22 - 31 mmol/L 30 BUN 5 - 25 mg/dL 6 Creatinine 0.6 - 1.4 mg/dL 0.8 Glucose 70 - 100 mg/dL 88 Calcium, Total,S 8.4 - 10.2 mg/dL 8.8 No pending lab found. Med not reviewed within the last year. There is no upcoming appointment scheduled for pt at this time. -----Please advise if patient needs an appointment and/or any pre-visit labs, and if necessary please work with your nurses or PSRs to assist in this process. Thank you. documented in this encounter Plan of Treatment Not on filedocumented as of this encounter Visit Diagnoses Diagnosis Essential hypertension - Primary Unspecified essential hypertension documented in this encounter Additional Health Concerns Infection Onset Date Last Indicated Resolved Time MSSA 10/04/2018 10/04/2018 06/28/2022 8:27 AM CDT documented as of this encounter Care Teams Environmental Service Aide Relationship Specialty Start Date End Date Adarsh Alfonso MD PCP - General 05/07/[address] [place] [address] documented as of this encounter
--- OUTSIDE RECORDS SUMMARY | 2022-06-30 08:32 | XMS_ITS | Encounter Summary ---
:1960 Author Organization [facility] Address [address] [place] [address] Care Team Providers Name Role Phone Adarsh Carpenter MD Primary Care Provider Reason for Visit Reason Onset Date Comments Med Dose Change 10/03/2018 Encounter Details Date Type Department Care Team Description 10/03/2018 Telephone [place] Adarsh Carpenter MD Med Dose Change [address] [place], [place] [address] [place], [place] [phone] [address] (Wo rk) Social History Tobacco Use Types [...] this encounter Miscellaneous Notes Telephone Encounter - Ti Ellison RN - 10/03/2018 9:17 AM CST ACC noted. Patient coming in on 10/07/18 for an INR. Thank you. IQUE SEWER Telephone Encounter - Sofia Denson RN - 10/03/2018 7:55 AM CST UA completed. Anticoag team, please note that the patient was started on Cipro as this may change his INR value and Coumadin dosing. IQUE SEWER Telephone Encounter - Sofia Denson RN - 10/03/2018 7:54 AM CST ----- Message from Adarsh Carpenter MD sent at 10/02/2018 6:06 PM APPLIQUE SEWER ----- I have ordered a UC on Dhruv's urine brought in yesterday. If you can't do it let me know. Also, please call the Coag team and let them know that I have started Cipro 500 twice a day for Dhruv so that theycan adjust his meds or bring him back for another INR while he is on the antibiotic. IQUE SEWER documented in this encounter Plan of Treatment Not on filedocumented as of this encounter Visit Diagnoses Not on filedocumented in this encounter Additional Health Concerns Infection Onset Date Last Indicated Resolved Time MSSA 10/04/2018 10/04/2018 06/28/2022 8:27 AM CDT documented as of this encounter Care Teams Missile Facilities Repairer Relationship Specialty Start Date End Date Adarsh Carpenter MD PCP - General 05/07/[address] [place] [address] documented as of this encounter
--- OUTSIDE RECORDS SUMMARY | 2022-06-30 08:32 | XMS_ITS | Encounter Summary ---
:1960 Author Organization [facility] Address [address] [place] [address] Care Team Providers Name Role Phone Adarsh Carpenter MD Primary Care Provider Encounter Details Date Type Department Care Team Description 02/04/2019 Lab [place] Other pulmonary embolism [address] without acute cor pulmonale, [place], [place] [address] unspecified chronicity (HCC) [phone] Social History Tobacco Use Types Packs/Day Years [...] Date/Time Associated Diagnosis Comme nts PROTIME-INR Routine 02/04/2019 9:11 AM Other pulmonary Result s for this CDT embolism without acute proce dure are in cor pulmonale, the results unspecified chronicity secti on. (HCC) documented in this encounter Results (ABNORMAL) Protime-INR (02/04/2019 9:11 AM CDT) P athologist Signature Protime 26.3 (H) 10.6 - 12.9 02/04/2019 [facility] 12:36 PM CDT [facility] Comment: . INR 2.3 02/04/2019 12:36 PM CDT [facility] Comment: Suggested INR Therapeutic Ranges* Intensity ?Standard ?Higher ? 2.0-3.0 ? 2.5-3.5 *Target INR should be individualized. Occasionally, INR range 3.0-4.5 may be appropriate. Higher intensity INR: Mechanical heart valve, etc. Specimen Anatomical Collection Method Collection Time Receive d Time (Source) Location / / Volume Laterality Blood (Blood, 02/04/2019 9:11 AM 02/05/20 19 Venous) CDT 12:05 PM CDT D. Hang Carpenter MD LAB BLOOD ORDERABLES Performing Organization Address City/State/ZIP Code Phon e Number [facility] [address] [place] [address] documented in this encounter Visit Diagnoses Diagnosis Other pulmonary embolism without acute c or pulmonale, unspecified chronicity (HCC) documented in this encounter Additional Health Concerns Infection Onset Date Last Indicated Resolved Time MSSA 10/04/2018 10/04/2018 06/28/2022 8:27 AM CDT documented as of this encounter Care Teams Handy Worker Relationship Specialty Start Date End Date Adarsh Carpenter MD PCP - General 05/07/[address] [place] [address] documented as of this encounter
--- OUTSIDE RECORDS SUMMARY | 2022-06-30 08:32 | XMS_ITS | Encounter Summary ---
:1960 Author Organization [facility] Address [address] [place] [address] Care Team Providers Name Role Phone Adarsh Carpenter MD Primary Care Provider Encounter Details Date Type Department Care Team Description 10/02/2018 [facility] Frequency of micturition [address] [place], [place] [address] Social History Tobacco Use [...] Date/Time Associated Diagnosis Comme nts URINALYSIS-MICROSCOP Routine 10/02/2018 10:00 Frequency of Res ults for this IC EXAM (REFLEXED) AM MACHINE LOADER micturition procedure are in the results section. URINALYSIS WITH Routine 10/02/2018 10:00 Frequency of Results for this REFLEX MICROSCOPIC AM MACHINE LOADER micturition procedure are in the results section. documented in this encounter Results (ABNORMAL) Urinalysis-Microscopic Exam (10/02/2018 10:00 AM MACHINE LOADER) Patholo gist Method Time Signature Casts, urine NONE SEEN 0-2 Hyaline 10/03/2018 [place] /lpf 1:21 PM [facility] Significant NONE SEEN None Seen 10/03/2018 [place] casts, urine /lpf 1:21 PM [facility] RBC, Urine 0-3 0 - 3 /hpf 10/03/2018 [place] 1:21 PM [facility] WBC, Urine 21-50 (A) /hpf 10/03/2018 [place] 1:21 PM [facility] Comment: Male Ref Range ? 0-3/hpf Female Ref Range ?? 0-10/hpf Squamous Epithelial, NONE SEEN Few /lpf 10/03/2018 1:21 PM [facility] Urine [facility] Trans Epithelial, NONE SEEN 0 - 3 /hpf 10/03/2018 1:21 PM [facility] Urine [facility] Renal Tubular Cells, NONE SEEN 0 - 1 /hpf 10/03/2018 1:21 PM [facility] Urine [facility] Bacteria, Urine 3+ (A) None Seen 10/03/2018 1:[address] [facility] /hpf [facility] Miscellaneous, urine SEE BELOW 10/03/2018 1:21 PM [facility] Comment: 1+ Calcium Oxalate Crystals Present. Specimen Anatomical Collection Method Collection Time Receive d Time (Source) Location / / Volume Laterality 10/02/2018 10:00 10/03/2018 AM MACHINE LOADER 12:16 PM MACHINE LOADER Adarsh Carpenter MD LAB URINE ORDERABLES Performing Organization Address City/State/ZIP Code Phon e Number [facility] [address] [place] [address] (ABNORMAL) Urinalysis with reflex microscopic (catheter) (10/02/2018 10:00 AM MACHINE LOADER) [facility] Method Time Signature Type Saenz Insert 10/02/2018 [facility] 3:02 PM MACHINE LOAD[place] Color, Urine TEE (A) YELLOW 10/02/2018 [facility] 3:02 PM MACHINE [place] Clarity, CLEAR CLEAR 10/02/2018 [facility] Urine 3:02 PM MACHINE [place]AD[place] Glucose, NEGATIVE NEGATIVE 10/02/2018 [facility] Urine mg/dL 3:02 PM [place]ACHINE [place]AD[place] Bilirubin, NEGATIVE NEGATIVE 10/02/2018 [facility] Urine 3:02 PM [place]ACHINE [place] Ketones, NEGATIVE NEGATIVE 10/02/2018 [facility] Urine mg/dL 3:02 PM MACHINE LOAD[place] Specific 1.025 1.000 10/02/2018 [facility] [place], ->=1.030 3:02 PM MACHINE LOADER [place] Urine Blood, Urine TRACE (A) NEGATIVE 10/02/2018 [facility] 3:02 PM MACHINE LOAD[place] pH, Urine 7.0 5.0 - 7.0 10/02/2018 [facility] 3:02 PM MACHINE LOAD[place] Protein, 30 (A) NEGATIVE-TRA 10/02/2018 [facility] Urine CE mg/dL 3:02 PM MACHINE LOADER [place] Urobilinogen, 1.0 0.2 - 1.0 10/02/2018 [facility] Urine E.U./dL 3:02 PM MACHINE LOADER [place] Nitrite, POSITIVE (A) NEGATIVE 10/02/2018 [facility] Urine 3:02 PM MACHINE LOAD[place] Leukocytes, LARGE (A) NEGATIVE 10/02/2018 [facility] Urine 3:02 PM MACHINE LOAD[place] Specimen Anatomical Collection Method Collection Time Receive d Time (Source) Location / / Volume Laterality Urine (Saenz 10/02/2018 10:00 10/02/2018 2:53 Insert) AM MACHINE LOADER PM MACHINE LOADER Adarsh Carpenter MD LAB URINE ORDERABLES Performing Organization Address City/State/ZIP Code Phon e Number [facility] [place] [address] [place] [address] documented in this encounter Visit Diagnoses Diagnosis Frequency of micturition Urinary frequency documented in this encounter Care Teams Statistical Engineer Relationship Specialty Start Date End Date Adarsh Carpenter MD PCP - General 05/07/[address] [place] [address] documented as of this encounter
--- OUTSIDE RECORDS SUMMARY | 2022-06-30 08:32 | XMS_ITS | Encounter Summary ---
:1960 Author Organization [facility] Address [address] [place] [address] Care Team Providers Name Role Phone Adarsh Carpenter MD Primary Care Provider Encounter Details Date Type Department Care Team Description 02/28/2019 Anticoagulation - SE Jodi Gee Other p ulmonary Warfarin Visit Anticoag/Internal N., PETROLEUM ENGINEERING PROFESSOR, SLEEP MEDICINE PHYSICIAN embolism without Medicine - Third [address] pulmonale, [address] [place], [place] [address] chronicity ([facility]) [facility] [phone] Social History Tobacco Use Types Packs/Day Years [...] Progress Notes Jodi Gee APRN, CNP - 02/28/2019 1:20 PM CDT INR: 2.5 Dose: 5 mg every Mon, Wed, Fri; 2.5 mg all other days Recheck date: 03/21/19 [facility] spoke with patient regarding INR results. Patient instructed to remain on current warfarin dose and recheck INR in 3 weeks. Patient verbalized understanding. Report mailed. documented in this encounter Plan of Treatment Not on filedocumented as of this encounter Results (ABNORMAL) Protime-INR (03/24/2019 9:14 AM CDT) P athologist Signature Protime 28.1 (H) 10.6 - 12.9 03/24/2019 [facility] 12:56 PM CDT [facility] Comment: . INR 2.4 03/24/2019 12:56 PM CDT [facility] Comment: Suggested INR Therapeutic Ranges* Intensity ?Standard ?Higher ? 2.0-3.0 ? 2.5-3.5 *Target INR should be individualized. Occasionally, INR range 3.0-4.5 may be appropriate. Higher intensity INR: Mechanical heart valve, etc. Specimen Anatomical Collection Method Collection Time Receive d Time (Source) Location / / Volume Laterality Blood (Blood, 03/24/2019 9:14 AM 03/24/20 19 Venous) CDT 12:39 PM CDT Jodi Gee APRN, CNP LAB BLOOD ORDERABLES Performing Organization Address City/State/ZIP Code Phon e Number [facility] [address] [place] [address] documented in this encounter Visit Diagnoses Diagnosis Other pulmonary embolism without acute c or pulmonale, unspecified chronicity (HCC) documented in this encounter Additional Health Concerns Infection Onset Date Last Indicated Resolved Time MSSA 10/04/2018 10/04/2018 06/28/2022 8:27 AM CDT documented as of this encounter Care Teams Fixed Income Manager Relationship Specialty Start Date End Date Adarsh Carpenter MD PCP - General 05/07/[address] [place] [address] documented as of this encounter
--- OUTSIDE RECORDS SUMMARY | 2022-06-30 08:32 | XMS_ITS | Encounter Summary ---
:1960 Author Organization [facility] Address [address] [place] [address] Care Team Providers Name Role Phone Adarsh Carpenter MD Primary Care Provider Encounter Details Date Type Department Care Team Description 03/24/2019 Lab [place] Other pulmonary embolism [address] without acute cor pulmonale, [place], [place] [address] unspecified chronicity (HCC) [phone] Social History Tobacco Use Types Packs/Day Years [...] Date/Time Associated Diagnosis Comme nts PROTIME-INR Routine 03/24/2019 9:14 AM Other pulmonary Result s for this CDT embolism without acute proce dure are in cor pulmonale, the results unspecified chronicity secti on. (HCC) documented in this encounter Results (ABNORMAL) Protime-INR (03/24/2019 9:14 AM CDT) P athologist Signature Protime 28.1 (H) 10.6 - 12.9 03/24/2019 [facility] 12:56 PM CDT [facility] Comment: . INR 2.4 03/24/2019 12:56 PM CDT [facility] Comment: Suggested INR Therapeutic [...] CDT 12:39 PM CDT Jodi Gee APRN, DUPLEX TRIMMER LAB BLOOD ORDERABLES Performing Organization Address City/State/ZIP Code Phon e Number [facility] [address] [place] [address] documented in this encounter Visit Diagnoses Diagnosis Other pulmonary embolism without acute c or pulmonale, unspecified chronicity (HCC) documented in this encounter Additional Health Concerns Infection Onset Date Last Indicated Resolved Time MSSA 10/04/2018 10/04/2018 06/28/2022 8:27 AM CDT documented as of this encounter Care Teams Senior Field Service Engineer Relationship Specialty Start Date End Date Adarsh Carpenter MD PCP - General 05/07/[address] [place] [address] documented as of this encounter
--- OUTSIDE RECORDS SUMMARY | 2022-06-30 08:32 | XMS_ITS | Encounter Summary ---
:1960 Author Organization [facility] Address [address] [place] [address] Care Team Providers Name Role Phone Adarsh Carpenter MD Primary Care Provider Encounter Details Date Type Department Care Team Description 10/02/2018 Orders Only [place] Adarsh Carpenter Acute cystitis without [address] MD Hang hematuria (Primary Dx) [place], [place] [address] [facility] [address] [place] [address] Social History Tobacco Use Types Packs/Day Years [...] or relatives? How often do you attend mosque or 1 to 4 times per year 04/01 quaker services? Do you belong to any clubs or No 04/24/2022 organizations such as mosque groups, unions, fraternal or athletic groups, or [...] documented as of this encounter Progress Notes Raven Degroot MA - 10/02/2018 5:59 PM CST Alejandra from [facility] notified regarding antibiotic and urine plated and will be sent today. ST PRODUCTS TEACHER documented in this encounter Plan of Treatment Not on filedocumented as of this encounter Results (ABNORMAL) Urine culture (10/04/2018 3:30 PM FOREST PRODUCTS TEACHER) Component Value Ref Test Analysis Performed At [facility] Range Method Time Signature Urine Culture Staphylococcus aureus 10/06/2018 [facility] STED >100,000 cfu/ml 7:45 AM FOREST PRODUCTS TEACHER MEDICAL Oxacillin: CENTER Use oxacillin interpretation L ABORATORY to predict results for anti-staphylococcal beta-lactam antibiotics (except ceftaroline). (A) Specimen Anatomical Collection Method Collection Time Receive d Time (Source) Location / / Volume Laterality Saenz Insert 10/04/2018 3:30 PM 9 6:08 FOREST PRODUCTS TEACHER PM FOREST PRODUCTS TEACHER Narrative [facility] - 03/2019 8:28 AM FOREST PRODUCTS TEACHER Patient does not have an Amoxicillin or PCN allergy Organism Antibiotic Method Susceptibility Staphylococcus aureus Nitrofurantoin <=32 mcg/m L: Susceptible Staphylococcus aureus Oxacillin 0.5 mcg/mL : Susceptible Staphylococcus aureus Tetracycline <=4 mcg/mL : Susceptible Staphylococcus aureus Trimeth/Sulfa <=0.5/9.5 mcg/mL: Susceptible D. Hang Carpenter MD LAB MICROBIOLOGY - GENERAL O RDERABLES Performing Organization Address City/State/ZIP Code Phon e Number [facility] [address] [place] [address] documented in this encounter Visit Diagnoses Diagnosis Other pulmonary embolism without acute c or pulmonale, unspecified chronicity (HCC) Acute cystitis without hematuria Acute cystitis without hematuria - Prima ry documented in this encounter Care Teams Supply Chain Engineer Relationship Specialty Start Date End Date Adarsh Carpenter MD PCP - General 05/07/[address] [place] [address] documented as of this encounter
--- OUTSIDE RECORDS SUMMARY | 2022-06-30 08:32 | XMS_ITS | Encounter Summary ---
:1960 Author Organization [facility] Address [address] [place] [address] Care Team Providers Name Role Phone Adarsh Carpenter MD Primary Care Provider Encounter Details Date Type Department Care Team Description 02/28/2019 Lab [place] Other pulmonary embolism [address] without acute cor pulmonale, [place], [place] [address] unspecified chronicity (HCC) [phone] Social History Tobacco Use Types Packs/Day Years [...] Date/Time Associated Diagnosis Comme nts PROTIME-INR Routine 02/28/2019 9:00 AM Other pulmonary Result s for this CDT embolism without acute proce dure are in cor pulmonale, the results unspecified chronicity secti on. (HCC) documented in this encounter Results (ABNORMAL) Protime-INR (02/28/2019 9:00 AM CDT) P athologist Signature Protime 28.4 (H) 10.6 - 12.9 02/28/2019 [facility] 1:01 PM CDT [facility] Comment: . INR 2.5 02/28/2019 1:01 PM CDT [facility] Comment: Suggested [...] CDT 12:29 PM CDT Jodi Gee APRN, GIANT TIRE REPAIRER LAB BLOOD ORDERABLES Performing Organization Address City/State/ZIP Code Phon e Number [facility] [address] [place] [address] documented in this encounter Visit Diagnoses Diagnosis Other pulmonary embolism without acute c or pulmonale, unspecified chronicity (HCC) documented in this encounter Additional Health Concerns Infection Onset Date Last Indicated Resolved Time MSSA 10/04/2018 10/04/2018 06/28/2022 8:27 AM CDT documented as of this encounter Care Teams Brush Clearing Laborer Relationship Specialty Start Date End Date Adarsh Carpenter MD PCP - General 05/07/[address] [place] [address] documented as of this encounter
--- OUTSIDE RECORDS SUMMARY | 2022-06-30 08:32 | XMS_ITS | Encounter Summary ---
:1960 Author Organization [facility] Address [address] [place] [address] Care Team Providers Name Role Phone Adarsh Carpenter MD Primary Care Provider Reason for Visit Reason Onset Date Comments 2nd overdue letter sent; pt called 12/26/2018 Encounter Details Date Type Department Care Team Description 12/26/2018 Telephone SE Anticoag/Internal Adarsh Carpenter 2nd ove rdue letter sent; Medicine - Third [facility] or MD Hang pt called [phone] [facility] [address] [place] [address] [place], [place] [phone] Social History Tobacco Use Types Packs/Day Years [...] Telephone Encounter - Salina Pratt RN - 12/26/2018 8:40 AM CDT [facility] called pt in reminder of overdue INR - he thought he was due on 01/12; [facility] reviewed with him he was last drawn on 11/14 and was due in 4 weeks, on 12/12/18. Pt states he'll come in for an INR. 2nd overdue letter sent today also. documented in this encounter Plan of Treatment Not on filedocumented as of this encounter Visit Diagnoses Not on filedocumented in this encounter Additional Health Concerns Infection Onset Date Last Indicated Resolved Time MSSA 10/04/2018 10/04/2018 06/28/2022 8:27 AM CDT documented as of this encounter Care Teams Dental Laboratory Assistant Relationship Specialty Start Date End Date Adarsh Carpenter MD PCP - General 05/07/[address] [place] [address] documented as of this encounter
--- OUTSIDE RECORDS SUMMARY | 2022-06-30 08:32 | XMS_ITS | Encounter Summary ---
:1960 Author Organization [facility] Address [address] [place] [address] Care Team Providers Name Role Phone Adarsh Carpenter MD Primary Care Provider Encounter Details Date Type Department Care Team Description 04/18/2019 Lab [place] Other pulmonary embolism [address] without acute cor pulmonale, [place], [place] [address] unspecified chronicity (HCC) [phone] Social History Tobacco Use Types Packs/Day Years [...] Date/Time Associated Diagnosis Comme nts PROTIME-INR Routine 04/18/2019 9:20 AM Other pulmonary Result s for this CDT embolism without acute proce dure are in cor pulmonale, the results unspecified chronicity secti on. (HCC) documented in this encounter Results (ABNORMAL) Protime-INR (04/18/2019 9:20 AM CDT) P athologist Signature Protime 32.6 (H) 10.6 - 12.9 04/18/2019 [facility] 12:47 PM CDT [facility] Comment: . INR 2.8 04/18/2019 12:47 PM CDT [facility] Comment: Suggested INR Therapeutic Ranges* [...] Address City/State/ZIP Code Phon e Number [facility] [address] [place] [address] documented in this encounter Visit Diagnoses Diagnosis Other pulmonary embolism without acute c or pulmonale, unspecified chronicity (HCC) documented in this encounter Additional Health Concerns Infection Onset Date Last Indicated Resolved Time MSSA 10/04/2018 10/04/2018 06/28/2022 8:27 AM CDT documented as of this encounter Care Teams Sanitation Worker Cleaning Machinery Relationship Specialty Start Date End Date Adarsh Carpenter MD PCP - General 05/07/[address] [place] [address] documented as of this encounter
--- OUTSIDE RECORDS SUMMARY | 2022-06-30 08:32 | XMS_ITS | Encounter Summary ---
:1960 Author Organization [facility] Address [address] [place] [address] Care Team Providers Name Role Phone Adarsh Carpenter MD Primary Care Provider Encounter Details Date Type Department Care Team Description 05/12/2019 Telephone [place] Adarsh Carpenter MD [address] [place], [place] [address] [place], [place] [phone] (Wo rk) Social History Tobacco Use Types [...] Notes Telephone Encounter - Patria Freeman - 05/13/2019 8:37 AM CDT Faxed. Telephone Encounter - Vidhya Bain LPN - 05/12/2019 3:00 PM CDT Please fax to [facility]. Telephone Encounter - Sofia Denson RN - 05/12/2019 8:39 AM CDT ----- Message from Adarsh Carpenter MD sent at 05/10/2019 7:08 PM CDT ----- I have printed a letter that certifies that Dhruv is Homebound. Call Nelia and read it to her and be sure that she is OK with the content. If not we can modify. Then she would like a copy and I believe that she would like a copy faxed to [facility]. Confirm this with her. Also, Let Nelia know that I talked to [facility]'s General Surgeon and he would defer the issue of a colostomy to [place] or other higher institution. A consult could be arranged but he did not feel that at the present time that Dhruv would currentlyqualify for a colostomy secondary to just constipation at this time. Make sure that Nelia has increased Dhruv's Lactulose to three times per day and if needed she can double the amount given if this does not work. documented in this encounter Plan of Treatment Not on filedocumented as of this encounter Visit Diagnoses Not on filedocumented in this encounter Additional Health Concerns Infection Onset Date Last Indicated Resolved Time MSSA 10/04/2018 10/04/2018 06/28/2022 8:27 AM CDT documented as of this encounter Care Teams Electronic Die Maker Relationship Specialty Start Date End Date Adarsh Carpenter MD PCP - General 05/07/[address] [place] [address] documented as of this encounter
--- OUTSIDE RECORDS SUMMARY | 2022-06-30 08:32 | XMS_ITS | Encounter Summary ---
:1960 Author Organization [facility] Address [address] [place] [address] Care Team Providers Name Role Phone Adarsh Carpenter MD Primary Care Provider Encounter Details Date Type Department Care Team Description 10/07/2018 Anticoagulation - SE [place], Other pulm onary Warfarin Visit Anticoag/Internal Beatriz Dykes RN embolism without Medicine - Third [address] pulmonale, [address] [place], [place] [address] chronicity (HCC) [phone] Social History Tobacco Use [...] encounter Progress Notes Beatriz Ochoa RN - 10/07/2018 2:00 PM CST Patient's notified of INR results and warfarin dosing instructions per phone call. No change inwarfarin dose. Recheck INR in 3 weeks. Patient verbalized understanding of instructions. AVS mailed. DETECTION ENGINEER documented in this encounter Plan of Treatment Not on filedocumented as of this encounter Results (ABNORMAL) Protime-INR (11/14/2018 8:58 AM LEAK DETECTION ENGINEER) P athologist Signature Protime 29.0 (H) 10.6 - 12.9 11/14/2018 [facility] 1:01 PM [facility] Comment: . INR 2.5 11/14/2018 1:01 PM [facility] Comment: Suggested INR Therapeutic Ranges* Intensity ?Standard ?Higher ? 2.0-3.0 ? 2.5-3.5 *Target INR should be individualized. Occasionally, INR range 3.0-4.5 may be appropriate. Higher intensity INR: Mechanical heart valve, etc. Specimen Anatomical Collection Method Collection Time Receive d Time (Source) Location / / Volume Laterality Blood (Blood, 11/14/2018 8:58 AM 11/14/19 19 Venous) LEAK DETECTION ENGINEER 12:14 PM LEAK DETECTION ENGINEER Adarsh Carpenter MD LAB BLOOD ORDERABLES Performing Organization Address City/State/ZIP Code Phon e Number [facility] [address] [place] [address] documented in this encounter Visit Diagnoses Diagnosis Other pulmonary embolism without acute c or pulmonale, unspecified chronicity (HCC) documented in this encounter Additional Health Concerns Infection Onset Date Last Indicated Resolved Time MSSA 10/04/2018 10/04/2018 06/28/2022 8:27 AM CDT documented as of this encounter Care Teams Kindergarten Prep Teacher Relationship Specialty Start Date End Date Adarsh Carpenter MD PCP - General 05/07/[address] [place] [address] documented as of this encounter
--- OUTSIDE RECORDS SUMMARY | 2022-06-30 08:32 | XMS_ITS | Encounter Summary ---
:1960 Author Organization [facility] Address [address] [place] [address] Care Team Providers Name Role Phone Adarsh Carpenter MD Primary Care Provider Encounter Details Date Type Department Care Team Description 05/16/2019 Lab [place] Other pulmonary embolism [address] without acute cor pulmonale, [place], [place] [address] unspecified chronicity (HCC) [phone] Social History Tobacco Use Types Packs/Day Years [...] Date/Time Associated Diagnosis Comme nts PROTIME-INR Routine 05/16/2019 9:08 AM Other pulmonary Result s for this CDT embolism without acute proce dure are in cor pulmonale, the results unspecified chronicity secti on. (HCC) documented in this encounter Results (ABNORMAL) Protime-INR (05/16/2019 9:08 AM CDT) P athologist Signature Protime 29.6 (H) 10.6 - 12.9 05/16/2019 [facility] 12:52 PM CDT [facility] Comment: . INR 2.6 05/16/2019 12:52 PM CDT [facility] Comment: Suggested INR Therapeutic Ranges* Intensity ?Standard ?Higher ? 2.0-3.0 ? 2.5-3.5 *Target INR should be individualized. Occasionally, INR range 3.0-4.5 may be appropriate. Higher intensity INR: Mechanical heart valve, etc. Specimen Anatomical Collection Method Collection Time Receive d Time (Source) Location / / Volume Laterality Blood (Blood, 05/16/2019 9:08 AM 05/16/20 19 Venous) CDT 12:12 PM CDT D. Hang Carpenter MD LAB BLOOD ORDERABLES Performing Organization Address City/State/ZIP Code Phon e Number [facility] [address] [place] [address] documented in this encounter Visit Diagnoses Diagnosis Other pulmonary embolism without acute c or pulmonale, unspecified chronicity (HCC) documented in this encounter Additional Health Concerns Infection Onset Date Last Indicated Resolved Time MSSA 10/04/2018 10/04/2018 06/28/2022 8:27 AM CDT documented as of this encounter Care Teams Fire And Safety Helper Relationship Specialty Start Date End Date Adarsh Carpenter MD PCP - General 05/07/[address] [place] [address] documented as of this encounter
--- OUTSIDE RECORDS SUMMARY | 2022-06-30 08:32 | XMS_ITS | Encounter Summary ---
:1960 Author Organization [facility] Address [address] [place] [address] Care Team Providers Name Role Phone Adarsh Carpenter MD Primary Care Provider Encounter Details Date Type Department Care Team Description 10/03/2018 Anticoagulation - SE [place], Other pulm onary Warfarin Visit Anticoag/Internal [place], MANUFACTURING SUPPORT ENGINEER, emboli sm without Medicine - Third [facility] acute cor Floor [address]ale, [address] unspecified [place], [place] chronicity (H CC) [id number] Social History Tobacco Use Types Packs/Day [...] encounter Progress Notes Ti Ellison RN - 10/03/2018 9:15 AM CST Patient started on Cipro yesterday. took the message for patient to check INR on 10/07/18. She verbalized understanding. HASING ANALYST documented in this encounter Plan of Treatment Not on filedocumented as of this encounter Results (ABNORMAL) Protime-INR (10/07/2018 9:43 AM PURCHASING ANALYST) athologist Signature Protime 33.4 (H) 10.6 - 12.9 10/07/2018 [facility] 12:59 PM [facility] Comment: . INR 2.9 10/07/2018 12:59 PM [facility] Comment: Suggested INR Therapeutic Ranges* Intensity ?Standard ?Higher ? 2.0-3.0 ? 2.5-3.5 *Target INR should be individualized. Occasionally, INR range 3.0-4.5 may be appropriate. Higher intensity INR: Mechanical heart valve, etc. Specimen Anatomical Collection Method Collection Time Receive d Time (Source) Location / / Volume Laterality Blood (Blood, 10/07/2018 9:43 AM 10/07/19 19 Venous) PURCHASING ANALYST 12:26 PM PURCHASING ANALYST Adarsh Carpenter MD LAB BLOOD ORDERABLES Performing Organization Address City/State/ZIP Code Phon e Number [facility] [address] [place] [address] documented in this encounter Visit Diagnoses Diagnosis Other pulmonary embolism without acute c or pulmonale, unspecified chronicity (HCC) documented in this encounter Care Teams General Expeditor Relationship Specialty Start Date End Date Adarsh Carpenter MD PCP - General 05/07/[address] [place] [address] documented as of this encounter
--- OUTSIDE RECORDS SUMMARY | 2022-06-30 08:32 | XMS_ITS | Encounter Summary ---
:1960 Author Organization [facility] Address [address] [place] [address] Care Team Providers Name Role Phone Adarsh Carpenter MD Primary Care Provider Reason for Visit Reason Onset Date Comments 2nd overdue letter sent; pt called 11/11/2018 Encounter Details Date Type Department Care Team Description 11/11/2018 Telephone SE Anticoag/Internal Adarsh Carpenter 2nd ove rdue letter sent; Medicine - Third [facility] or MD Hang pt called [phone] [facility] [address] [place] [address] [place], [place] [phone] Social History Tobacco Use Types Packs/Day Years [...] Telephone Encounter - Salina Pratt RN - 11/11/2018 8:46 AM CST [facility] called pt and left a detailed message in regards to overdue INR and to get it checked this week. P SALES REPRESENTATIVE documented in this encounter Plan of Treatment Not on filedocumented as of this encounter Visit Diagnoses Not on filedocumented in this encounter Additional Health Concerns Infection Onset Date Last Indicated Resolved Time MSSA 10/04/2018 10/04/2018 06/28/2022 8:27 AM CDT documented as of this encounter Care Teams Rehab Trainer Relationship Specialty Start Date End Date Adarsh Carpenter MD PCP - General 05/07/[address] [place] [address] documented as of this encounter
--- OUTSIDE RECORDS SUMMARY | 2022-06-30 08:32 | XMS_ITS | Encounter Summary ---
:1960 Author Organization [facility] Address [address] [place] [address] Care Team Providers Name Role Phone Adarsh Carpenter MD Primary Care Provider Encounter Details Date Type Department Care Team Description 12/27/2018 Anticoagulation - SE [place], Other pulm onary Warfarin Visit Anticoag/Internal Salina Strong RN embolism without Medicine - Third [address] pulmonale, [address] [place], [place] [address] chronicity (HCC) [id number] Social History Tobacco Use [...] encounter Progress Notes Salina Pratt RN - 12/27/2018 3:02 PM CDT ACC called the patient with instructions to continue current warfarin dose of 5 mg MWF, 2.5 mg all other days and recheck an INR in 4 weeks. Patient verbalized understanding. AVS mailed. documented in this encounter Plan of Treatment Not on filedocumented as of this encounter Results (ABNORMAL) Protime-INR (02/04/2019 9:11 AM CDT) P athologist Signature Protime 26.3 (H) 10.6 - 12.9 02/04/2019 [facility] 12:36 PM CDT [facility] Comment: . INR 2.3 02/04/2019 12:36 PM CDT [facility] [...] 02/05/20 19 Venous) CDT 12:05 PM CDT Adarsh Carpenter MD LAB BLOOD ORDERABLES Performing Organization Address City/State/ZIP Code Phon e Number [facility] [address] [place] [address] documented in this encounter Visit Diagnoses Diagnosis Other pulmonary embolism without acute c or pulmonale, unspecified chronicity (HCC) documented in this encounter Additional Health Concerns Infection Onset Date Last Indicated Resolved Time MSSA 10/04/2018 10/04/2018 06/28/2022 8:27 AM CDT documented as of this encounter Care Teams Dental Assisting Instructor Relationship Specialty Start Date End Date Adarsh Carpenter MD PCP - General 05/07/[address] [place] [address] documented as of this encounter
--- OUTSIDE RECORDS SUMMARY | 2022-06-30 08:32 | XMS_ITS | Encounter Summary ---
:1960 Author Organization [facility] Address [address] [place] [address] Care Team Providers Name Role Phone Adarsh Carpenter MD Primary Care Provider Encounter Details Date Type Department Care Team Description 10/07/2018 Lab [place] Other pulmonary embolism [address] without acute cor pulmonale, [place], [place] [address] unspecified chronicity (HCC) [phone] Social History Tobacco Use Types Packs/Day Years [...] Date/Time Associated Diagnosis Comme nts PROTIME-INR Routine 10/07/2018 9:43 AM Other pulmonary Result s for this NURSING TEACHER embolism without acute proce dure are in cor pulmonale, the results unspecified chronicity secti on. (HCC) documented in this encounter Results (ABNORMAL) Protime-INR (10/07/2018 9:43 AM NURSING TEACHER) P athologist Signature Protime 33.4 (H) 10.6 - 12.9 10/07/2018 [facility] 12:59 PM NURSING TEACHER [facility] Comment: . INR 2.9 10/07/2018 12:59 PM NURSING TEACHER [facility] Comment: Suggested INR Therapeutic Ranges* Intensity ?Standard ?Higher ? 2.0-3.0 ? 2.5-3.5 *Target INR should be individualized. Occasionally, INR range 3.0-4.5 may be appropriate. Higher intensity INR: Mechanical heart valve, etc. Specimen Anatomical Collection Method Collection Time Receive d Time (Source) Location / / Volume Laterality Blood (Blood, 10/07/2018 9:43 AM 10/07/19 19 Venous) NURSING TEACHER 12:26 PM NURSING TEACHER D. Hang Carpenter MD LAB BLOOD ORDERABLES Performing Organization Address City/State/ZIP Code Phon e Number [facility] [address] [place] [id number] documented in this encounter Visit Diagnoses Diagnosis Other pulmonary embolism without acute c or pulmonale, unspecified chronicity (HCC) documented in this encounter Additional Health Concerns Infection Onset Date Last Indicated Resolved Time MSSA 10/04/2018 10/04/2018 06/28/2022 8:27 AM CDT documented as of this encounter Care Teams Impregnator Relationship Specialty Start Date End Date Adarsh Carpenter MD PCP - General 05/07/[address] [place] [address] documented as of this encounter
--- OUTSIDE RECORDS SUMMARY | 2022-06-30 08:32 | XMS_ITS | Encounter Summary ---
:1960 Author Organization [facility] Address [address] [place] [address] Care Team Providers Name Role Phone Adarsh Carpenter MD Primary Care Provider Reason for Visit Reason Comments Med Refill Encounter Details Date Type Department Care Team Description 04/06/2019 Refill [place] Adarsh Carpenter, Other pulmonary embolism [address] [place] without acute cor [place], [place] [address] pulmonale, unspecified [phone] [place], [place] chronicity (HCC) (Primary [id number] Dx) Social History Tobacco Use Types Packs/Day [...] Telephone Encounter - Herlinda Gomez LPN - 04/08/2019 1:25 PM CDT Last Rx warfarin (COUMADIN) 5 MG tablet Instructions: M, w, f #100, 3 refills 04/19/18 Last annual exam 03/06/18 No future appointment scheduled Patient is due for well adult exam. Please contact to schedule. Results for DWAIN HINDS ( ) as of 04/08/2019 13:31 Ref. Range 02/17/2019 09:17 02/28/2019 09:00 03/24/2019 09:14 Protime Latest Ref Range: 10.6 - 12.9 seconds 38.7 (H) 28.4 (H) 28.1 (H) INR Unknown 3.4 2.5 2.4 documented in this encounter Plan of Treatment Not on filedocumented as of this encounter Visit Diagnoses Diagnosis Other pulmonary embolism without acute c or pulmonale, unspecified chronicity (HCC) - Primary documented in this encounter Additional Health Concerns Infection Onset Date Last Indicated Resolved Time MSSA 10/04/2018 10/04/2018 06/28/2022 8:27 AM CDT documented as of this encounter Care Teams Computer Customer Support Specialist Relationship Specialty Start Date End Date Adarsh Carpenter MD PCP - General 05/07/[address] [place] [address] documented as of this encounter
--- OUTSIDE RECORDS SUMMARY | 2022-06-30 08:32 | XMS_ITS | Encounter Summary ---
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 Patient instructed to take 5 mg 02/04/19 then continue current warfarin maintenance plan of 5 mg every Mon, Wed, Fri; 2.5 mg all other days and recheck INR in 2 weeks. Patient verbalized understanding. Report mailed. documented in this encounter Plan of Treatment Not on filedocumented as of this encounter Results (ABNORMAL) Protime-INR (02/17/2019 9:17 AM CDT) P athologist Signature Protime 38.7 (H) 10.6 - 12.9 02/17/2019 [facility] 1:14 PM CDT [facility] Comment: . INR 3.4 02/17/2019 1:14 PM CDT [facility] Comment: Suggested INR Therapeutic [...] CDT 12:53 PM CDT Jodi Gee APRN, ELECTRIC WHEELCHAIR REPAIRER LAB BLOOD ORDERABLES Performing Organization Address City/State/ZIP Code Phon e Number [facility] [address] [place] [phone] documented in this encounter Visit Diagnoses Diagnosis Other pulmonary embolism without acute c or pulmonale, unspecified chronicity (HCC) documented in this encounter Additional Health Concerns Infection Onset Date Last Indicated Resolved Time MSSA 10/04/2018 10/04/2018 06/28/2022 8:27 AM CDT documented as of this encounter Care Teams Delivery Nurse Relationship Specialty Start Date End Date Adarsh Carpenter MD PCP - General 05/07/[address] [place] [address] documented as of this encounter
--- OUTSIDE RECORDS SUMMARY | 2022-06-30 08:32 | XMS_ITS | Encounter Summary ---
:[address] [facility] Address [address] [place] [address] Care Team Providers Name Role Phone Adarsh Carpenter MD Primary Care Provider Reason for Visit Reason Onset Date Comments RX CLARIFICATION 02/10/2019 Encounter Details Date Type Department Care Team Description 02/10/2019 Telephone [place], RX CLARIFICATION [address] [place], [place] [address] [phone] [place] [address] (Wo rk) Social History Tobacco Use Types [...] Encounter - Sofia Denson RN - 02/10/2019 2:03 PM CDT Pharmacy called questioning if he was supposed to be on the succinate or tartrate of Metoprolol. Shereport he's been on the Succinate. Reviewed with Dr. Carpenter who would like him to remain on the succinate. Yoly informed. Telephone Encounter - Neli Aggie - 02/10/2019 1:12 PM CDT Yoly from [facility]-questions on an Rx from Dr. Carpenter. documented in this encounter Plan of Treatment Not on filedocumented as of this encounter Visit Diagnoses Not on filedocumented in this encounter Additional Health Concerns Infection Onset Date Last Indicated Resolved Time MSSA 10/04/2018 10/04/2018 06/28/2022 8:27 AM CDT documented as of this encounter Care Teams Clinical Professor Relationship Specialty Start Date End Date Adarsh Carpenter MD PCP - General 05/07/[address] [place] [address] documented as of this encounter
--- OUTSIDE RECORDS SUMMARY | 2022-06-30 08:32 | XMS_ITS | Encounter Summary ---
:1960 Author Organization [facility] Address [address] [place] [address] Care Team Providers Name Role Phone Adarsh Carpenter MD Primary Care Provider Encounter Details Date Type Department Care Team Description 04/18/2019 Anticoagulation - [facility] Anticoag [place], Other pulmonary Warfarin Visit [address] [facility] Beatriz Dykes RN embolism without [place], [place] [address] pulmonale, [place], [place] unspecified [phone] chronicity (HCC) Social History Tobacco Use Types [...] encounter Progress Notes Beatriz Ochoa RN - 04/18/2019 1:59 PM CDT Patient notified of INR results= 2.8 and warfarin dosing instructions per phone call. No change in warfarin dose: 5 mg every Mon, Wed, Fri; 2.5 mg all other day. Recheck INR in 4 weeks, 05/16/19. Patient verbalized understanding of instructions. AVS mailed. documented in this encounter Plan of Treatment Not on filedocumented as of this encounter Results (ABNORMAL) Protime-INR (05/16/2019 9:08 AM CDT) P athologist Signature Protime 29.6 (H) 10.6 - 12.9 05/16/2019 [facility] 12:52 PM CDT [facility] Comment: . INR 2.6 05/16/2019 12:52 PM CDT [facility] Comment: Suggested INR Therapeutic Ranges* Intensity ?Standard ?Higher ? 2.0-3.0 ? 2.5-3.5 *Target INR should be individualized. Occasionally, INR range 3.0-4.5 may be appropriate. Higher intensity INR: Mechanical heart valve, etc. Specimen Anatomical Collection Method Collection Time Receive d Time (Source) Location / / Volume Laterality Blood (Blood, 05/16/2019 9:08 AM 05/16/20 19 Venous) CDT 12:12 PM CDT Adarsh Carpenter MD LAB BLOOD ORDERABLES Performing Organization Address City/State/ZIP Code Phon e Number [facility] [address] [place] [address] documented in this encounter Visit Diagnoses Diagnosis Other pulmonary embolism without acute c or pulmonale, unspecified chronicity (HCC) documented in this encounter Additional Health Concerns Infection Onset Date Last Indicated Resolved Time MSSA 10/04/2018 10/04/2018 06/28/2022 8:27 AM CDT documented as of this encounter Care Teams Product Test Specialist Relationship Specialty Start Date End Date Adarsh Carpenter MD PCP - General 05/07/[address] [place] [address] documented as of this encounter
--- OUTSIDE RECORDS SUMMARY | 2022-06-30 08:32 | XMS_ITS | Encounter Summary ---
:1960 Author Organization [facility] Address [address] [place] [address] Care Team Providers Name Role Phone Adarsh Carpenter MD Primary Care Provider Encounter Details Date Type Department Care Team Description 05/10/2019 Orders Only [place] Adarsh Carpenter MD [address] [place], [place] [address] [place], [place] [phone] (Wo rk) Social History Tobacco Use Types [...] as of this encounter Care Teams Sales Review Clerk Relationship Specialty Start Date End Date Adarsh Carpenter MD PCP - General 05/07/[address] [place] [address] documented as of this encounter
--- OUTSIDE RECORDS SUMMARY | 2022-06-30 08:33 | XMS_ITS | Encounter Summary ---
:1960 Author Organization [facility] Address [address] [place] [address] Care Team Providers Name Role Phone Adarsh Carpenter MD Primary Care Provider Encounter Details Date Type Department Care Team Description 09/30/2018 Lab [place] Other pulmonary embolism wit hout acute cor pulmonale, unspecified chronicity (HCC); [address] Acute cystitis without hemat uria [place], [place] [address] Social History Tobacco Use [...] or relatives? How often do you attend spiritism or 1 to 4 times per year 04/01 jehovah's witness services? Do you belong to any clubs or No 04/24/2022 organizations such as spiritism groups, unions, fraternal or athletic groups, or [...] this encounter Miscellaneous Notes Addendum Note - Raven Degroot MA - 09/30/2018 9:20 AM MEN'S SWIM COACH Addended by: RAVEN AGARWAL on: 10/04/2018 03:30 PM Modules accepted: Orders 'S SWIM COACH documented in this encounter Plan of Treatment Not on filedocumented as of this encounter Procedures Procedure Name Priority Date/Time Associated Diagnosis Comme nts URINE CULTURE Routine 10/04/2018 3:30 PM Acute cystitis withou t Results for this MEN'S SWIM COACH hematuria procedure are i n the results section. PROTIME-INR Routine 09/30/2018 9:36 AM Other pulmonary Result s for this MEN'S SWIM COACH embolism without acute proce dure are in cor pulmonale, the results unspecified chronicity secti on. (HCC) documented in this encounter Results (ABNORMAL) Urine culture (10/04/2018 3:30 PM MEN'S SWIM COACH) Component Value Ref Test Analysis Performed At [facility] gist Range Method Time Signature Urine Culture Staphylococcus aureus 10/06/2018 [facility] STED >100,000 cfu/ml 7:45 AM MEN'S SWIM COACH MEDICAL Oxacillin: CENTER Use oxacillin interpretation L ABORATORY to predict results for anti-staphylococcal beta-lactam antibiotics (except ceftaroline). (A) Specimen Anatomical Collection Method Collection Time Receive d Time (Source) Location / / Volume Laterality Sa[place] Insert 10/04/2018 3:30 PM 9 6:08 MEN'S SWIM COACH PM MEN'S SWIM COACH Narrative [facility] - 03/2019 8:28 AM MEN'S SWIM COACH Patient does not have an Amoxicillin or PCN allergy Organism Antibiotic Method Susceptibility Staphylococcus aureus Nitrofurantoin <=32 mcg/m L: Susceptible Staphylococcus aureus Oxacillin 0.5 mcg/mL : Susceptible Staphylococcus aureus Tetracycline <=4 mcg/mL : Susceptible Staphylococcus aureus Trimeth/Sulfa <=0.5/9.5 mcg/mL: Susceptible Adarsh Carpenter MD LAB MICROBIOLOGY - GENERAL O RDERABLES Performing Organization Address City/Va Hospital/ZIP Code Phon e Number [facility] [address] [place] [phone] (ABNORMAL) Protime-INR (09/30/2018 9:36 AM MEN'S SWIM COACH) athologist Signature Protime 35.2 (H) 10.6 - 12.9 09/30/2018 [facility] 1:18 PM MEN'S SWIM COACH [facility] Comment: . INR 3.1 09/30/2018 1:18 PM MEN'S SWIM COACH [facility] Comment: Suggested INR Therapeutic Ranges* Intensity ?Standard ?Higher ? 2.0-3.0 ? 2.5-3.5 *Target INR should be individualized. Occasionally, INR range 3.0-4.5 may be appropriate. Higher intensity INR: Mechanical heart valve, etc. Specimen Anatomical Collection Method Collection Time Receive d Time (Source) Location / / Volume Laterality Blood (Blood, 09/30/2018 9:36 AM 09/30/20 18 Venous) MEN'S SWIM COACH 12:39 PM MEN'S SWIM COACH Adarsh Carpenter MD LAB BLOOD ORDERABLES Performing Organization Address City/Va Hospital/ZIP Code Phon e Number [facility] [address] [place] [phone] documented in this encounter Visit Diagnoses Diagnosis Other pulmonary embolism without acute c or pulmonale, unspecified chronicity (HCC) Acute cystitis without hematuria documented in this encounter Care Teams Retail Security Professional Relationship Specialty Start Date End Date Adarsh Carpenter MD PCP - General 05/07/[address] [place] [address] documented as of this encounter
--- OUTSIDE RECORDS SUMMARY | 2022-06-30 08:33 | XMS_ITS | Encounter Summary ---
:1960 Author Organization [facility] Address [address] [place] [address] Care Team Providers Name Role Phone Adarsh Carpenter MD Primary Care Provider Encounter Details Date Type Department Care Team Description 07/22/2018 Lab [place] Pulmonary infarction (HCC) [address] [place], [place] [address] Social History Tobacco Use [...] Date/Time Associated Diagnosis Comme nts PROTIME-INR Routine 07/22/2018 9:06 AM Pulmonary infarction R esults for this CDT (HCC) procedure are i n the results section . documented in this encounter Results (ABNORMAL) Protime-INR (07/22/2018 9:06 AM CDT) P athologist Signature Protime 27.4 (H) 10.6 - 12.9 07/22/2018 [facility] seconds 2:54 PM CDT [facility] INR 2.4 07/22/2018 [facility] 2:54 PM CDT [facility] Comment: Suggested INR Therapeutic Ranges* Intensity ?Standard ?Higher ? 2.0-3.0 ? 2.5-3.5 *Target INR should be individualized. Occasionally, INR range 3.0-4.5 may be appropriate. Higher intensity INR: Mechanical heart valve, etc. Specimen Anatomical Collection Method Collection Time Receive d Time (Source) Location / / Volume Laterality Blood (Blood, 07/22/2018 9:06 AM 07/22/20 18 2:44 Venous) CDT PM CDT Adarsh Carpenter MD LAB BLOOD ORDERABLES Performing Organization Address City/State/ZIP Code Phon e Number [facility] [address] [place] [address] documented in this encounter Visit Diagnoses Diagnosis Pulmonary infarction (HCC) Other pulmonary embolism and infarction documented in this encounter Care Teams Food And Beverage Service Manager Relationship Specialty Start Date End Date Adarsh Carpenter MD PCP - General 05/07/[address] [place] [address] documented as of this encounter
--- OUTSIDE RECORDS SUMMARY | 2022-06-30 08:33 | XMS_ITS | Encounter Summary ---
:1960 Author Organization [facility] Address [address] [place] [address] Care Team Providers Name Role Phone Adarsh Carpenter MD Primary Care Provider Reason for Referral Consultation (Routine) - Closed Specialty Diagnoses / Procedures Referred By Contact Refer red To Contact Wound Care Diagnoses Pressure injury of buttock, stage 1, unspecified laterality Adarsh Carpenter MD [address] [place] [address] Referral ID Status Reason Start Date Expiration Date Visits V isits Requested Authorized [id number] Closed Specialty 07/16/2018 01/12/2019 1 1 Services Required Scheduling Instructions I am referring Mr. Hinds for evaluation of what appears to be Stage I pressure ulcers beginning to develop on the upper portio ns of both buttocks approximately 1 by 2 cm in size. Asking not just for evaluation but also advice in how he and his can help prevent these from getting worse. A ny and all adaptive devices including better cushions for his wheelchair, inflatable air mattress (or other?) for his bed. . . PLEASE call the patient/ Nelia to set up an appointment to come in as soon as able to assess, evaluate, and treat. Appreciate your expertise. Reason for Visit Reason Comments Abscess BED SORES Encounter Details Date Type Department Care Team Description 07/16/2018 Office Visit Adarsh Weaver Pressure injury of [address] MD Hang buttock, stage 1, [place] [address] unspecified laterality [phone] [place] (Primary Dx) [place] [address] Social History Tobacco Use Types Packs/Day Years [...] Sign Reading Time Taken Comments Blood Pressure 102/80 07/16/2018 10:50 AM CDT Pulse 87 07/16/2018 10:50 AM CDT Temperature 36.1 ??C (96.9 ??F) 07/16/2018 10:50 AM CDT Respiratory Rate 14 07/16/2018 10:50 AM CDT Oxygen Saturation 91% 07/16/2018 10:50 AM CDT Inhaled Oxygen Concentration - - Weight - - Height - - Body Mass Index - - documented in this encounter Progress Notes Adarsh Carpenter MD - 07/16/2018 11:00 AM CDT Estab Patient Visit Subjective Patient ID: Dwain Hinds is a 58 y.o. male. HPI The patient is here today to evaluate pressure ulcers on his buttock region. The patient is our 58-year-old patient has had multiple sclerosis for more than 15+ years. 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 He has some sensation from the chest down but minimal use of any muscles. The patient has had lots of problems and issues recently with urinary tract infections and sepsis and recently actually had kidney stones removed surgically and hopefully that will decrease risk for infection in the future He is also had a history of DVT and blood clot pulmonary embolus for which she will be on anticoagulant therapy indefinitely. He spends most of this time in his motorized wheelchair which actually allows him to change positionbut he usually does not. He also has a fairly reasonable good cushion on his wheelchair. When he is in bed he is not able to turn over by himself so he usually lays in one position pretty much all the time. Within the last 1 week period of time the who does all of his care has noticed that he has developed some sores on the cheeks of the upper portion of both buttocks and we had recommended today to be evaluated. He had no fevers no chills he has not felt anything there is been no specific drainage and the has been using barrier cream and dressing over this appropriately. He has never had pressure ulcers or pressure sores before and this is something that obviously should like to try to prevent in the future. Review of Systems Review of systems is as stated in the HPI Objective Physical Exam Objective he is alert he is cooperative appears to be in no acute distress or discomfort vital signsare stable showing a temp of 96.9 After we were able to position him in his wheelchair up close to the exam table with help of my nurse and the patient's were able to lean him over onto the exam table and then we were able to lookat both buttock areas. He has no obvious open areas or just some contused-looking areas little deeper bruised areas that look like certainly they may be the beginning of pressure ulcers I called about a stage I. On both buttock areas there is no surrounding redness or erythema because he does not feel tenderness but there is an area about a 1 x 2 cm area in the right cheek and a little bit smaller on the left cheek. Assessment/Plan Diagnoses and all orders for this visit: Pressure injury of buttock, stage 1, unspecified laterality The overall assessment he has pressure ulcer on the upper portion of both buttocks stage I. Plan at this time is for the to continue doing what she is doing for general cares the patient and he needs to change his position in his wheelchair much more frequently and in fact if he can moveit up and down and change it position at least every hour to try to change the weight distribution of the buttock area that this would be important. We have also discussed changing positions him movingup onto his side more when he is in bed and that should be done frequently throughout the daytime heshould get out of the wheelchair get into the bed she should position him on a little bit of one side and on the other side by prompting pillows underneath his upper chest and buttock. We also refer him down to the wound care team Liz to be evaluated him to see whether there are further devices we can use that will help minimize his risk for bedsores as time goes on. That could be basically an air mattress on his bed he can be possibly getting a trapeze is located over his head when he is in bed to allow him to shift his positions better himself he could be a better seat for his wheelchair that may offer less pressures and so forth. documented in this encounter Plan of Treatment Scheduled Referrals Name Type Priority Associated Diagnoses Order S chedule Ambulatory referral Outpatient Referral Routine Pressure Injur y Of Expected: to Wound Clinic Buttock, Stage 1, 018, Unspecified Expires: Laterality 01/14/2019 documented as of this encounter Visit Diagnoses Diagnosis Pressure injury of buttock, stage 1, uns pecified laterality - Primary documented in this encounter Care Teams Traffic Worker Relationship Specialty Start Date End Date Adarsh Carpenter MD PCP - General 05/07/[address] [place] [address] documented as of this encounter
--- OUTSIDE RECORDS SUMMARY | 2022-06-30 08:33 | XMS_ITS | Encounter Summary ---
:1960 Author Organization [facility] Address [address] [place] [address] Care Team Providers Name Role Phone Adarsh Carpenter MD Primary Care Provider Encounter Details Date Type Department Care Team Description 07/22/2018 Anticoagulation - SE Gracy Mejia, Other pu lmonary Warfarin Visit Anticoag/Internal RN embolism without Medicine - Third [address] pulmonale, [address] [place], [place] [address] chronicity (HCC) [address] Social History Tobacco Use [...] documented as of this encounter Progress Notes Gracy Mejia RN - 07/22/2018 3:03 PM CDT Patient was instructed to remain on his current dose of warfarin, routine INR recheck in 4 weeks. Report mailed. documented in this encounter Plan of Treatment Not on filedocumented as of this encounter Results (ABNORMAL) Protime-INR (08/26/2018 9:05 AM DECORATING AND ASSEMBLY SUPERVISOR) P athologist Signature Protime 32.1 (H) 10.6 - 12.9 08/26/2018 [facility] seconds 12:56 PM DECORATING AND ASSEMBLY SUPERVISOR CENTER LAB[facility]ATORY INR 2.8 08/26/2018 [facility] 12:56 PM [facility] CENTER LABORATORY Comment: Suggested INR Therapeutic Ranges* Intensity ?Standard ?Higher ? 2.0-3.0 ? 2.5-3.5 *Target INR should be individualized. Occasionally, INR range 3.0-4.5 may be appropriate. Higher intensity INR: Mechanical heart valve, etc. Specimen Anatomical Collection Method Collection Time Receive d Time (Source) Location / / Volume Laterality Blood (Blood, 08/26/2018 9:05 AM 08/26/20 18 Venous) DECORATING AND ASSEMBLY SUPERVISOR 12:41 PM DECORATING AND ASSEMBLY SUPERVISOR Adarsh Carpenter MD LAB BLOOD ORDERABLES Performing Organization Address City/State/ZIP Code Phon e Number [facility] [address] [place] [address] documented in this encounter Visit Diagnoses Diagnosis Other pulmonary embolism without acute c or pulmonale, unspecified chronicity (HCC) documented in this encounter Care Teams Senior Statistician Relationship Specialty Start Date End Date Aadrsh Carpenter MD PCP - General 05/07/[address] [place] [address] documented as of this encounter
--- OUTSIDE RECORDS SUMMARY | 2022-06-30 08:33 | XMS_ITS | Encounter Summary ---
:1960 Author Organization [facility] Address [address] [place] [address] Care Team Providers Name Role Phone Adarsh Carpenter MD Primary Care Provider Reason for Visit Reason Onset Date Comments Bed Sores 07/15/2018 Encounter Details Date Type Department Care Team Description 07/15/2018 Telephone [place] Adarsh Carpenter MD Bed Sores [address] [place], [place] [address] [place], [place] [phone] (Wo rk) Social History Tobacco Use Types Packs/Day Years Used Date Never Assessed Alcohol Habits Answer Date Recorded How often [...] Telephone Encounter - Sofia Denson RN - 07/18/2018 9:37 AM CDT Patient scheduled for wound clinic. Telephone Encounter - Jamie Lawton - 07/18/2018 9:12 AM CDT I spoke to patient the other day and he is scheduled in the wound clinic. Patient requested appointment on 07/25/2018. Telephone Encounter - Sofia Denson RN - 07/18/2018 8:54 AM CDT Patient had a referral placed to be seen by the wound clinic. The clinician wanted us to check and assure that this was received by your staff. Please let us know. Telephone Encounter - Nataly Torres - 07/17/2018 12:43 PM CDT I believe this needs to be routed to Wound clinic, not neurology. Please redirect Telephone Encounter - Sofia Denson RN - 07/17/2018 8:25 AM CDT Patient had a referral placed to be seen by the wound clinic. The clinician wanted us to check and assure that this was received by your staff. Please let us know. Telephone Encounter - Sofia Denson RN - 07/17/2018 8:24 AM CDT ----- Message from Adarsh Carpenter MD sent at 07/16/2018 8:28 PM CDT ----- I sent a referral to [facility]'s Wound Team for Dhruv to be seen. For my peace of mind can you call the Wound Team at [facility] and set if they received the referral. Telephone Encounter - Vidhya Bain LPN - 07/15/2018 3:10 PM CDT Let Nelia know Telephone Encounter - Adarsh Carpenter MD - 07/15/2018 2:39 PM CDT I believe that we can just either have him lean forward in his wheel chair or if needed place on thex-ray table when it is in the low position to just look at the wound, maybe take a photo to assess. Telephone Encounter - Sofia Denson RN - 07/15/2018 11:48 AM CDT We do not have a moon lift, are we able to properly assess his wounds or should this be done by wound care who as the necessary equipment to transfer the patient? Telephone Encounter - Veronica Glez - 07/15/2018 11:21 AM CDT Pt is scheduled to be seen tomorrow with Dr. Carpenter. Nelia just wants to make sure Pt can be transferred to the exam table. She mentioned a moon lift, but them also said his wheelchair can get up pretty high and he might be able to kind of slide over. Please let Nelia know if this appt needs to change. Telephone Encounter - Tika Sibley MA - 07/15/2018 11:01 AM CDT Please get patient scheduled for an appt this week. Telephone Encounter - Adarsh Carpenter MD - 07/15/2018 10:18 AM CDT We should look at this first in the office and then decide which direction we may need to go. Call patient and have him set up a time this week. Telephone Encounter - Tika Sibley MA - 07/15/2018 10:00 AM CDT Would you like the patient to be seen for this or have them start with the [facility] nurse? Or possibly the wound care nurse at [facility]? Telephone Encounter - Neli Marcial - 07/15/2018 8:52 AM CDT Nelia states the patient has been fighting bed sores. Sunday morning, a big one opened up overnight. This one looks different. Can he have someone here look at or should she call the nurse from [facility]? Please advise. documented in this encounter Plan of Treatment Not on filedocumented as of this encounter Visit Diagnoses Not on filedocumented in this encounter Care Teams Basketball Commentator Relationship Specialty Start Date End Date Adarsh Carpenter MD PCP - General 05/07/[address] [place] [address] documented as of this encounter
--- OUTSIDE RECORDS SUMMARY | 2022-06-30 08:33 | XMS_ITS | Encounter Summary ---
:1960 Author Organization [facility] Address [address] [place] [address] Care Team Providers Name Role Phone Adarsh Carpenter MD Primary Care Provider Encounter Details Date Type Department Care Team Description 08/26/2018 Anticoagulation - SE [place], Other pulm onary Warfarin Visit Anticoag/Internal [place], DEVULCANIZER CHARGER, emboli sm without Medicine - Third [facility] acute cor [address], [address] unspecified [place], [place] chronicity (H CC) [id number] [id number] Social History Tobacco Use Types Packs/Day [...] encounter Progress Notes Ti Ellison RN - 08/26/2018 1:14 PM CST Patient instructed to remain on current dose 5 mg Mon, Wed, Fri; 2.5 mg the other days and recheck INR in 5 weeks. Report mailed. He verbalized understanding. EL CLEANER documented in this encounter Plan of Treatment Not on filedocumented as of this encounter Results (ABNORMAL) Protime-INR (09/30/2018 9:36 AM BARREL CLEANER) athologist Signature Protime 35.2 (H) 10.6 - 12.9 09/30/2018 [facility] 1:18 PM [facility] Comment: . INR 3.1 09/30/2018 1:[address] [facility] Comment: Suggested INR Therapeutic Ranges* Intensity ?Standard ?Higher ? 2.0-3.0 ? 2.5-3.5 *Target INR should be individualized. Occasionally, INR range 3.0-4.5 may be appropriate. Higher intensity INR: Mechanical heart valve, etc. Specimen Anatomical Collection Method Collection Time Receive d Time (Source) Location / / Volume Laterality Blood (Blood, 09/30/2018 9:36 AM 09/30/20 18 Venous) BARREL CLEANER 12:39 PM BARREL CLEANER Adarsh Carpenter MD LAB BLOOD ORDERABLES Performing Organization Address City/State/ZIP Code Phon e Number [facility] [address] [place] [address] documented in this encounter Visit Diagnoses Diagnosis Other pulmonary embolism without acute c or pulmonale, unspecified chronicity (HCC) documented in this encounter Care Teams Yeast Pumper Relationship Specialty Start Date End Date Adarsh Carpenter MD PCP - General 05/07/[address] [place] [address] documented as of this encounter
--- OUTSIDE RECORDS SUMMARY | 2022-06-30 08:33 | XMS_ITS | Encounter Summary ---
:1960 Author Organization [facility] Address [address] [place] [address] Care Team Providers Name Role Phone Adarsh Carpenter MD Primary Care Provider Reason for Visit Reason Comments Wound Check Consultation (Routine) - Closed Specialty Diagnoses / Procedures Referred By Contact Refer red To Contact Wound Care Diagnoses Pressure injury of buttock, stage 1, unspecified laterality Adarsh Carpenter MD [address] [place] [address] Referral ID Status Reason Start Date Expiration Date Visits V isits Requested Authorized [id number] Closed Specialty 07/16/2018 01/12/2019 1 1 Services Required Encounter Details Date Type Department Care Team Description 07/25/2018 Office Visit [facility] Wound Garrick, Camila B, Mult iple sclerosis (HCC) (Primary Dx); Care Pressure injury of buttock, stage 1, uns pecified laterality; [address] Paraplegia (HCC) [address] [phone] [place] [address] Social History Tobacco Use Types [...] Sign Reading Time Taken Comments Blood Pressure 124/87 07/25/2018 10:30 AM CDT Pulse 79 07/25/2018 10:30 AM CDT Temperature 36.6 ??C (97.9 ??F) 07/25/2018 10:30 AM CDT Respiratory Rate 18 07/25/2018 10:30 AM CDT Oxygen Saturation - - Inhaled Oxygen Concentration - - Weight - - Height - - Body Mass Index - - documented in this encounter Patient Instructions Patient InstructionsAdelia Moreno LPN - 07/25/2018 10:00 AM CDT Keep dressing clean and dry, call wound clinic with any concerns documented in this encounter Progress Notes Camila Mccauley MD - 07/25/2018 10:00 AM CDT Advanced Wound Healing Visit Type: New Patient Subjective Dwain Hinds is a 58 y.o. male who presents today for wound check. He is being referred by Dr. Carpenter for the evaluation of a gluteal stage I pressure injury. Pt was been confined to a wheelchair for the past 5 years for advanced MS. His is his caregiver and does a wonderful job working withhim to prevent skin breakdown. They recently started him in a new gel cushion. Pt says he did not like the Roho cushion because the motion made him feel unsteady. He is otherwise doing well with self catheterizations and has no issue with bowel care on lactulose, incontinence denied. No F/C. The following portions of the patient's history were reviewed by a provider in this encounter and updated as appropriate: Allergies Meds Problems Med Hx Surg Hx Fam Hx Review of Systems Constitutional: Negative for chills, fatigue and fever. HENT: Negative. Negative for postnasal drip, sinus pressure and sinus pain. Eyes: Negative. Respiratory: Negative for shortness of breath and wheezing. PMH of PE Cardiovascular: Negative. Negative for chest pain and leg swelling. Gastrointestinal: Negative. Negative for abdominal distention, abdominal pain, constipation and diarrhea. Endocrine: Negative. Genitourinary: Negative for flank pain, hematuria and scrotal swelling. Musculoskeletal: BLE atrophy Skin: Positive for wound. Pressure injury R gluteal / sacral skin Allergic/Immunologic: Negative. Neurological: Chronic muscle spasms Paraplegia MS Hematological: Bruises/bleeds easily. Chronic anticoagulation due to PE All other systems reviewed and are negative. Objective Visit Vitals BP 124/87 (BP Location: Right arm, Patient Position: Sitting) Pulse 79 Temp 36.6 ??C (97.9 ??F) Resp 18 Smoking Status Never Smoker Wound: R gluteal skin partial skin breakdown with abdullahi wound redness, no deep tissue involvement Physical Exam Constitutional: He is oriented to person, place, and time. He appears well- developed and well-nourished. HENT: Head: Normocephalic and atraumatic. Right Ear: External ear normal. Left Ear: External ear normal. Nose: Nose normal. Mouth/Throat: Oropharynx is clear and moist. Eyes: Conjunctivae and EOM are normal. Pupils are equal, round, and reactive to light. Neck: Normal range of motion. Neck supple. Cardiovascular: Normal rate and regular rhythm. Pulmonary/Chest: Effort normal and breath sounds normal. Abdominal: Soft. Bowel sounds are normal. Musculoskeletal: BLE muscle wasting Neurological: He is alert and oriented to person, place, and time. Paraplegia BLE atrophy Skin: Skin is warm and dry. Capillary refill takes less than 2 seconds. Psychiatric: He has a normal mood and affect. Procedure Note: None Assessment/Plan Diagnoses and all orders for this visit: Multiple sclerosis Pressure injury of buttock, stage 1, unspecified laterality - Ambulatory referral to Wound Clinic - Menthol-Zinc Oxide (CALMOSEPTINE) 0.44-20.6 % ointment; Apply to groin/buttocks daily prn rash - triple butt paste; Apply to groin/buttocks daily prn rash Paraplegia Wound / Level of debridement: none Dressing: as documented in nursing notes Off-loading: long discussion regarding off-loading. Waffle cushion given for when he is not using the new gel seat Compression: n/a Antibiotics: none needed Nutritional optimization: Advised pt to increase protein intake via diet supplementation to accelerate wound healing Glucose optimization: n/a Rehab services on board? Mapping discussed however pressure points are known and pt/ will continue to work on this Special considerations: recommended he f/u with neurologist as he has not seen one is a year for MS med options which can be infused at [facility] Further testing/studies needed: none Referrals: no new referrals. Discussed possible pelvic rehab for any incontinence but pt does not have any incontinence issues at this time Regarding pressure injuries: The goal of treatment for ulcers is to properly debride (when indicated) and dress the wound cavity, create or maintain moisture for optimal healing, and protect the wound from infection. Pt was given Rx for Calmoseptine which was applied today and samples as well as Rx for triple butt paste. The goal of properly unloading pressure from the area still applies. Emphasis isplaced on proper nutrition and hydration to support wound healing. If the extent of the pressure ulcer or other factors prohibit it from healing properly, surgery may be necessary to close the wound ifthere is failure to progress. The following precautions can help minimize the risk of developing pressure ulcers in at-risk patients and to minimize complications in patients already exhibiting symptoms: Turn patients every two hours. Keep the skin clean and dry. Avoid massaging bony prominences. Provide adequate intake of protein and calories. Maintain current levels of activity, mobility and range of motion. Use positioning devices to prevent prolonged pressure bony prominences. Keep the head of the bed as low as possible to reduce risk of shearing. Keep sheets dry and wrinkle free. Details of today???s visit was discussed in detail as well as plan moving forward. The patient agrees with the proposed plan. Any and all questions and concerns regarding wound management were addressed at the conclusion of the visit. Patient was seen for 60 min, 45 min of which was spent counseling the patient on the above RTC: PRN Appreciate wound care referral and opportunity to participate in pt's wound healing. Camila Mccauley MD documented in this encounter Plan of Treatment Not on filedocumented as of this encounter Visit Diagnoses Diagnosis Multiple sclerosis (HCC) - Primary Multiple sclerosis Pressure injury of buttock, stage 1, uns pecified laterality Paraplegia (HCC) Paraplegia documented in this encounter Care Teams Tanning Consultant Relationship Specialty Start Date End Date Adarsh Carpenter MD PCP - General 05/07/[address] [place] [address] documented as of this encounter
--- OUTSIDE RECORDS SUMMARY | 2022-06-30 08:33 | XMS_ITS | Encounter Summary ---
:1960 Author Organization [facility] Address [address] [place] [address] Care Team Providers Name Role Phone Adarsh Carpenter MD Primary Care Provider Encounter Details Date Type Department Care Team Description 06/28/2018 Abstract [place] Adarsh Carpenter MD [address] [facility] [address] [place], [place] [address] [place], [place] [phone] (Wo rk) Social History Tobacco Use Types [...] on filedocumented in this encounter Care Teams Gis Administrator Relationship Specialty Start Date End Date Adarsh Carpenter MD PCP - General 05/07/[address] [place] [address] documented as of this encounter
--- OUTSIDE RECORDS SUMMARY | 2022-06-30 08:33 | XMS_ITS | Encounter Summary ---
:1960 Author Organization [facility] Address [address] [place] [address] Care Team Providers Name Role Phone Adarsh Carpenter MD Primary Care Provider Encounter Details Date Type Department Care Team Description 09/30/2018 Anticoagulation - [place], Other pulm onary Warfarin Visit Anticoag/Internal Salina Strong RN embolism without Medicine - Third [address] pulmonale, [address] [place], [place] [address] chronicity (HCC) [address] Social History Tobacco Use [...] encounter Progress Notes Salina Pratt RN - 09/30/2018 5:23 PM CST [facility] not able to call pt due to [employer] phone outage; [facility] will mail report for the patient to continue current warfarin dose of 5 mg MWF, 2.5 mg all other days and recheck an INR in 4 weeks. TRANSFER WORKER documented in this encounter Plan of Treatment Not on filedocumented as of this encounter Visit Diagnoses Diagnosis Other pulmonary embolism without acute c or pulmonale, unspecified chronicity (HCC) documented in this encounter Care Teams Equine Pharmacology Technician Relationship Specialty Start Date End Date Adarsh Carpenter MD PCP - General 05/07/[address] [place] [address] documented as of this encounter
--- OUTSIDE RECORDS SUMMARY | 2022-06-30 08:33 | XMS_ITS | Encounter Summary ---
:1960 Author Organization [facility] Address [address] [place] [address] Care Team Providers Name Role Phone Adarsh Carpenter MD Primary Care Provider Encounter Details Date Type Department Care Team Description 02/26/2018 - Hospital Encounter [facility] Adarsh Carpentert iple sclerosis 05/14/2018 Services MD Hang ([facility]) [address] [place] [address] [place] [address] Social History Tobacco Use Types Packs/Day Years [...] for the very basics like Not h biran at all 04/24/2022 food, housing, medical care, [...] on file documented as of this encounter Medications at Time of Discharge Medication Sig Dispensed Refills Start Date End Date escitalopram (LEXAPRO) 5 Take 5 mg by mouth 0 05/07/2019 MG tablet lactulose (CHRONULAC) 10 Take 10 g by mouth 0 05/07/2019 GM/15ML solution daily oxybutynin (DITROPAN) 5 MG Take 1 tablet by 0 01/07/2019 tablet mouth warfarin (COUMADIN) 5 MG M, W, F 0 04/19/2018 04/06/2019 tablet documented as of this encounter Plan of Treatment Not on filedocumented as of this encounter Visit Diagnoses Diagnosis Multiple sclerosis (HCC) Multiple sclerosis documented in this encounter Care Teams Machine Feeder Relationship Specialty Start Date End Date Adarsh Carpenter MD PCP - General 05/07/[address] [place] [address] documented as of this encounter
--- OUTSIDE RECORDS SUMMARY | 2022-06-30 08:33 | XMS_ITS | Encounter Summary ---
:[address] [facility] Address [address] [place] [address] Care Team Providers Name Role Phone Adarsh Carpenter MD Primary Care Provider Reason for Visit Reason Onset Date Comments medication prior auth. 07/31/2018 Nystatin OIntment [id number]/gm Encounter Details Date Type Department Care Team Description 07/31/2018 Telephone [facility] Wound [facility] are Camila Mccauley, medication prior auth. [address] [facility] ([place] [address] [address] [facility] [id number]/gm) [phone] [place] [phone] Social History Tobacco Use Types Packs/Day Years [...] this encounter Miscellaneous Notes Telephone Encounter - Camila Mccauley MD - 08/04/2018 4:54 PM CST Rx's for triple butt paste and Calmoseptine faxed to pharmacy--he can use either depending on coverage. Thanks AL BINDER Telephone Encounter - Leah Bustamante MA - 08/02/2018 10:16 AM CDT This is denied, this medication is not approved by FDA for dx. and therefor it is denied. Appeal form was faxed to [facility] at [phone]. Telephone Encounter - Leah Bustamante MA - 07/31/2018 1:27 PM CDT Nystatin OIntment [id number]/gm BIN: PCN: GROUP: PLAN: Michael PDF PHONE: [phone] ID: [id number] PA completed sent to ins. Along with trans. Note from 07/31/2018. documented in this encounter Plan of Treatment Not on filedocumented as of this encounter Visit Diagnoses Not on filedocumented in this encounter Care Teams Beef Cattle Specialist Relationship Specialty Start Date End Date Adarsh Carpenter MD PCP - General 05/07/[address] [place] [address] documented as of this encounter
--- OUTSIDE RECORDS SUMMARY | 2022-06-30 08:33 | XMS_ITS | Encounter Summary ---
:1960 Author Organization [facility] Address [address] [place] [address] Care Team Providers Name Role Phone Adarsh Carpenter MD Primary Care Provider Encounter Details Date Type Department Care Team Description 08/26/2018 Lab [place] Other pulmonary embolism [address] without acute cor pulmonale, [place], [place] [address] unspecified chronicity (HCC) [phone] Social History Tobacco Use Types Packs/Day Years [...] Date/Time Associated Diagnosis Comme nts PROTIME-INR Routine 08/26/2018 9:05 AM Other pulmonary Result s for this RADAR TECHNICIAN embolism without acute proce dure are in cor pulmonale, the results unspecified chronicity secti on. (HCC) documented in this encounter Results (ABNORMAL) Protime-INR (08/26/2018 9:05 AM RADAR TECHNICIAN) P athologist Signature Protime 32.1 (H) 10.6 - 12.9 08/26/2018 [facility] seconds 12:56 PM RADAR TECHNICIAN [facility] INR 2.8 08/26/2018 [facility] 12:56 PM RADAR TECHNICIAN [facility] Comment: Suggested INR Therapeutic Ranges* Intensity ?Standard ?Higher ? 2.0-3.0 ? 2.5-3.5 *Target INR should be individualized. Occasionally, INR range 3.0-4.5 may be appropriate. Higher intensity INR: Mechanical heart valve, etc. Specimen Anatomical Collection Method Collection Time Receive d Time (Source) Location / / Volume Laterality Blood (Blood, 08/26/2018 9:05 AM 08/26/20 18 Venous) RADAR TECHNICIAN 12:41 PM RADAR TECHNICIAN D. Hang Carpenter MD LAB BLOOD ORDERABLES Performing Organization Address City/State/ZIP Code Phon e Number [facility] [address] [place] [phone] documented in this encounter Visit Diagnoses Diagnosis Other pulmonary embolism without acute c or pulmonale, unspecified chronicity (HCC) documented in this encounter Care Teams Chin Strap Sewer Relationship Specialty Start Date End Date Adarsh Carpenter MD PCP - General 05/07/[address] [place] [address] documented as of this encounter
--- OUTSIDE RECORDS SUMMARY | 2022-06-30 08:33 | XMS_ITS | Encounter Summary ---
:1960 Author Organization [facility] Address [address] [place] [address] Care Team Providers Name Role Phone Adarsh Carpenter MD Primary Care Provider Encounter Details Date Type Department Care Team Description 06/23/2018 Orders Only [place] Adarsh Carpenter Pulmonary infarction [address] MD Hang ([facility]) (Primary Dx) [place], [place] [address] [facility] [address] [place] [address] Social History Tobacco Use Types Packs/Day Years [...] as of this encounter Results (ABNORMAL) Protime-INR (07/22/2018 9:06 AM CDT) athologist Signature Protime 27.4 (H) 10.6 - 12.9 07/22/2018 [facility] seconds 2:54 PM CDT CENTER LAB[facility]ATORY INR 2.4 07/22/2018 [facility] 2:54 PM CDT [facility] Comment: Suggested INR Therapeutic Ranges* Intensity [...] e Number [facility] [address] [place] [address] documented in this encounter Visit Diagnoses Diagnosis Pulmonary infarction (HCC) - Primary Other pulmonary embolism and infarction documented in this encounter Care Teams Amusement Or Recreation Card Checker Relationship Specialty Start Date End Date Adarsh Carpenter MD PCP - General 05/07/[address] [place] [address] documented as of this encounter
--- OUTSIDE RECORDS SUMMARY | 2022-06-30 08:33 | XMS_ITS | Encounter Summary ---
:1960 Author Organization [facility] Address [address] [place] [address] Care Team Providers Name Role Phone Adarsh Carpenter MD Primary Care Provider Encounter Details Date Type Department Care Team Description 07/22/2018 Anticoagulation - [place], Other pulm onary Warfarin Visit Anticoag/Internal Beatriz Dykes RN embolism without Medicine - Third [address] [place], [address] [place], [place] [address] chronicity (HCC) [address] Social History Tobacco Use [...] 1 to 4 times per year 04/01 mandaeism services? Do you belong to any clubs [...] encounter Progress Notes Beatriz Ochoa RN - 07/22/2018 9:32 AM CDT Abstraction documented in this encounter Plan of Treatment Not on filedocumented as of this encounter Visit Diagnoses Diagnosis Other pulmonary embolism without acute c or pulmonale, unspecified chronicity (HCC) documented in this encounter Care Teams Social Sciences Department Chair Relationship Specialty Start Date End Date Adarsh Carpenter MD PCP - General 05/07/[address] [place] [address] documented as of this encounter
--- OUTSIDE RECORDS SUMMARY | 2022-06-30 08:33 | XMS_ITS | Encounter Summary ---
:1960 Author Organization [facility] Address [address] [place] [address] Care Team Providers Name Role Phone Adarsh Carpenter MD Primary Care Provider Reason for Visit Reason Onset Date Comments Med Refill 08/05/2018 Encounter Details Date Type Department Care Team Description 08/05/2018 Refill [place] Adarsh Carpenter MD [address] [place], [place] [address] [place], [place] [phone] (Wo rk) Social History Tobacco Use Types [...] 1 to 4 times per year 04/01 sikhism services? Do you belong to any clubs [...] documented as of this encounter Care Teams Process Project Engineer Relationship Specialty Start Date End Date Adarsh Carpenter MD PCP - General 05/07/[address] [place] [address] documented as of this encounter
[2022-06-30 09:09] LABS: SARS PCR* Negative SARS-CoV-2 (Negative)
--- NOTE | 2022-06-30 09:58 | W.ANESCHARGE ---
Anesthesia Charges Start Date/Time Anesthesia Start Date: 06/30/22 Anesthesia Start Time: 09:16 Stop Date/Time Anesthesia Stop Date: 06/30/22 Anesthesia Stop Time: 09:55 Summary Emergency: No
--- NOTE | 2022-06-30 10:23 | W.ANESCHARGE ---
Anesthesia Charges Start Date/Time Anesthesia Start Date: 06/30/22 Anesthesia Start Time: 09:16 Stop Date/Time Anesthesia Stop Date: 06/30/22 Anesthesia Stop Time: 09:55 Summary Emergency: No
== END 2022-06-30 08:19 | disposition home or self-care (01) ==
PROVIDERS: PCP Family Medicine; Visit Provider Internal Medicine
DX: Z12.11 Encounter for screening for malignant neoplasm of colon (principal); K63.5 Polyp of colon; K64.9 Unspecified hemorrhoids; K57.30 Diverticulosis of large intestine without perforation or abscess without bleeding
CPT/HCPCS: 00811; 45380; 45385; 87635; 88305; J2704

== ENCOUNTER 2022-10-03 10:34 | Emergency (ER) | payer MEDICARE, BC, SELFPAY ==
[2022-10-03 10:39] VITALS: BP 121/88; PULSE 116; RESP 16; TEMP 36.3; O2SAT 93; BMI 24.4
--- NOTE | 2022-10-03 11:02 | CRLHL7_ITS ---
For Patients: As a result of the Cures Act, medical imaging exams and procedure reports are released immediately into your electronic medical record. You may view this report before your referring provider. If you have questions, please contact your health care provider. INDICATION: Fever; weakness. COMPARISON: Portable AP chest July 05, 2020 and April 24, 2021. TECHNIQUE: Two-view chest. FINDINGS: Normal size cardiac silhouette. Low lung volumes secondary to poor inspiratory effort. No acute pneumonic infiltrates or CHF. No pneumothorax or pleural effusion. IMPRESSION: 1. Low lung volumes secondary to poor inspiratory effort. 2. No acute pathology. Dictated by Bib Bashir MD @ 10/03/2022 11:51:06 AM (Electronically Signed)
--- NOTE | 2022-10-03 11:04 | ED_ITS ---
HPI - Weakness General Chief complaint: Weakness Stated complaint: Weakness/fever up and down Time Seen by Provider: 10/03/22 10:39 Source: patient and family Mode of arrival: wheelchair Limitations: no limitations History of Present Illness HPI Narrative: 62-year-old gentleman who suffers from MS and is wheelchair confined presents here with his ambulatory for evaluation of a fever and weakness, low-grade fever for the last couple days, up to 99 at home. The have been taking this temporally, he has some loose stools also but this is an atypical for him, he also has had some cognitive issues which again is not atypical for him their primary concern is a history of sepsis, usually from a urinary tract source. They also have been exposed to COVID in the last 2 weeks, family member who they had over for [place] did come down with COVID, he is fully immunized except for his booster and has received the influenza vaccine. No vomiting, no nausea, denies sore throat, headache, coughing, abdominal pain, rashes anywhere. I have not given him any Tylenol or any other medication MD Complaint: generalized weakness Onset (ago): day(s) Location: generalized Migration: none Severity: moderate Relieving factors: none Associated symptoms: denies other symptoms Related Data Home Medications Medication Instructions Recorded Confirmed atorvastatin 20 mg tablet 20 mg PO QHS 10/03/22 10/03/22 baclofen 10 mg oral granules in 10 mg PO BID 10/03/22 10/03/22 packet oxybutin 5 mg PO BID 10/03/22 10/03/22 sennosides 8.6 mg capsule (senna) 8.6 mg PO DAILY 10/03/22 10/03/22 warfarin 2 mg tablet 2 mg PO 2XW 10/03/22 10/03/22 warfarin 4 mg tablet 4 mg PO 5XW 10/03/22 10/03/22 Previous Rx's Medication Instructions Recorded peg 3350-electrolytes 236 240 ml PO Q10M #2 mL 06/14/22 gram-22.74 gram-6.74 gram-5.86 gram solution (Golytely) Allergies Allergy/AdvReac Type Severity Reaction Status Date / Time bee venom protein (honey bee) Allergy Verified 10/03/22 10:45 Penicillins Allergy Uncoded 06/30/22 09:47 Review of Systems Status of ROS: Reports: 10 or more systems reviewed and unremarkable except as noted in History and below [facility] Social History Smoking Status: Never smoker Do you use any of these nicotine containing products: None Second hand tobacco smoke exposure: No How often do you have a drink containing alcohol: monthly or less How many standard drinks containing alcohol do you have on a typical day: 1 or 2 How often do you have six or more drinks on one occasion: Never AUDIT-C Alcohol total score: 1 Non-prescribed substance use: denies use service: No Exam Narrative: Exam Narrative: Patient is seen in room 5 in no apparent distress, with his present, he is in a wheelchair, and examined there. Pupils are equal round reactive to light oropharynx is otherwise normal, TMs are normal bilaterally with little bit excessive amount of cerumen. Neck is supple there is no tenderness to palpation, no meningismus, chest is good air entry bilaterally with no wheezing crackles noted, heart sounds are normal, no clicks murmurs or gallops his abdomen is soft and pot belly, there is no guarding no organomegaly no tenderness noted. Skin reveals no petechiae rashes no swelling of his lower ext remities. Any moves all extremities within his normal norms. Const: Vital Signs, click to edit/add: Vital Signs - 24 hr 10/03/22 10:39 10/03/22 12:35 10/03/22 12:02 Temperature 97.4 F L Pulse Rate 105 H Pulse Rate [Right Pulse Oximeter] 116 H Respiratory Rate 16 Blood Pressure 115/79 Blood Pressure [Ri ght Upper Arm] 121/88 Pulse Oximetry 93 93 Oxygen Delivery Me thod Room Air Room Air 10/03/22 12:03 10/03/22 12:15 Temperature Pulse Rate 100 103 H Pulse Rate [Right Pulse Oximeter] Respiratory Rate Blood Pressure Blood Pressure [Ri ght Upper Arm] Pulse Oximetry 94 89 Oxygen Delivery Me thod Documenting provider has reviewed patient's vital signs: yes Course Course Hospital Course: Discussed with the patient, the testing was very reassuring, with normal procalcitonin, normal lactate, normal white blood cell count there was some e vidence of a UTI with increased number white cells on the urine, given his past history of sepsis I think treatment would be indicated, chest x-ray was otherwise normal, his pressures continue to be a little bit saw for him, but I explained to him I am not that worried about this, it probably is reflection of decreased fluids, I would recommend that back to normal eating, and normal fluids would be appropriate, he was comfortable with this plan. I discussed this with his also. Vital Signs Vital signs: Initial Vital Signs Temperature 97.4 F L 10/03/22 10:39 Temperature Source Temporal Artery Scan 10/03/22 10:39 Pulse Rate 116 H 10/03/22 10:39 Respiratory Rate 16 10/03/22 10:39 Blood Pressure 121/88 10/03/22 10:39 Blood Pressure Mean 99 10/03/22 10:39 Blood Pressure Position Sitting 10/03/22 10:39 Pulse Oximetry 93 10/03/22 10:39 Oxygen Delivery Method 10/03/22 10:39 Vital Signs Temperature 97.4 F L 10/03/22 10:39 Pulse Rate 116 H 10/03/22 10:39 Respiratory Rate 16 10/03/22 10:39 Blood Pressure 121/88 10/03/22 10:39 Pulse Oximetry 93 10/03/22 10:39 Oxygen Delivery Method 10/03/22 10:39 Temperature 97.4 F L 10/03/22 10:39 Pulse Rate 103 H 10/03/22 12:15 Respiratory Rate 16 10/03/22 10:39 Blood Pressure 115/79 10/03/22 12:02 Pulse Oximetry 89 10/03/22 12:15 Oxygen Delivery Method 10/03/22 12:35 MDM - Weakness MDM Narrative Medical decision making narrative: Life-threatening differential diagnosis considered include stroke, coronary artery disease, pneumonia, and heart failure. Other differential diagnosis include but are not limited to electrolyte imbalances, anemia, medication reactions, and urinary tract infection Differential Diagnosis Differential diagnosis: Likely acute myocardial infarction, anemia, hypoglycemia, hypothyroidism, rhabdomyolysis, sepsis and dehydration Medical Records Attestation: I reviewed the patient's medical records. Lab Data Attestation: I reviewed the patient's lab results. Labs: Lab Results 10/03/22 10/03/22 10/03/22 Range/Units 11:35 11:35 11:35 WBC 10.84 (4.50-11.00) K/uL RBC 5.82 (4.30-5.90) m/uL Hgb 17.5 (13.5-17.5) gm/dL Hct 52.7 (37.0-53.0) % MCV 91 (80-100) fL MCH 30 (26-34) pg MCHC 33 (32-36) gm/dL RDW Coeff of Nas 14.5 (11.5-15.5) % Plt Count 246 (140-440) K/uL Neut % (Auto) 75.5 H (42.0-72.0) % Lymph % (Auto) 11.0 L (20-44) % [place] % (Auto) 12.8 H (0.0-11.0) % Eos % (Auto) 0.2 (0.0-7.0) % Baso % (Auto) 0.1 (0.0-3.0) % Neut # (Auto) 8.20 H (1.7-7.0) K/uL Lymph # (Auto) 1.20 (0.90-2.90) K/uL [place] # (Auto) 1.40 H (0.00-0.90) K/UL Eos # (Auto) 0.02 (0.00-0.50) K/uL Baso # (Auto) 0.01 (0.00-0.30) K/uL Sodium 135 (135-149) mmol/L Potassium 3.5 L (3.6-5.1) mmol/L Chloride 105 (96-114) mmol/L Carbon Dioxide 21 (20-32) mmol/L BUN 16 (7-30) mg/dL Creatinine 1.0 (0.5-1.5) mg/dL Estimated Creat Clear 67.03 Estimated GFR 84 ml/min Glucose 113 (60-115) mg/dL Lactate 1.7 (0.5-1.9) mmol/L Calcium 8.6 (8.4-10.6) mg/dL C-Reactive Protein 7.7 H (0.5-1.0) mg/dL Urine Color (Yellow) Urine Appearance (Clear) Urine pH (5.0-8.5) Ur Specific [place] (1.000-1.030) Urine Protein (Negative) Urine Glucose (UA) (Negative) Urine Ketones (Negative) Urine Blood (Negative) Urine Nitrite (Negative) Urine Bilirubin (Negative) Urine Urobilinogen (0.2-1.0) Ur Leukocyte Esterase (Negative) Urine RBC (0-2) Urine WBC (0-5) Ur Squamous Epith Cells (None-Few) Other Sediment (None) Urine Bacteria (None) SARS-CoV-2 (PCR) (Negative) Influenza Type A (PCR) (Negative) Influenza Type B (PCR) (Negative) RSV (PCR) (Negative) POC Troponin I (0.01-0.04) ng/ml 10/03/22 10/03/22 10/03/22 Range/Units 11:35 11:50 12:05 WBC (4.50-11.00) K/uL RBC (4.30-5.90) m/uL Hgb (13.5-17.5) gm/dL Hct (37.0-53.0) % MCV (80-100) fL MCH (26-34) pg MCHC (32-36) gm/dL RDW Coeff of Nas (11.5-15.5) % Plt Count (140-440) K/uL Neut % (Auto) (42.0-72.0) % Lymph % (Auto) (20-44) % [place] % (Auto) (0.0-11.0) % Eos % (Auto) (0.0-7.0) % Baso % (Auto) (0.0-3.0) % Neut # (Auto) (1.7-7.0) K/uL Lymph # (Auto) (0.90-2.90) K/uL [place] # (Auto) (0.00-0.90) K/UL Eos # (Auto) (0.00-0.50) K/uL Baso # (Auto) (0.00-0.30) K/uL Sodium (135-149) mmol/L Potassium (3.6-5.1) mmol/L Chloride (96-114) mmol/L Carbon Dioxide (20-32) mmol/L BUN (7-30) mg/dL Creatinine (0.5-1.5) mg/dL Estimated Creat Clear Estimated GFR ml/min Glucose (60-115) mg/dL Lactate (0.5-1.9) mmol/L Calcium (8.4-10.6) mg/dL C-Reactive Protein (0.5-1.0) mg/dL Urine Color Yellow (Yellow) Urine Appearance Clear (Clear) Urine pH 5.5 (5.0-8.5) Ur Specific [place] >= 1.030 (1.000-1.030) Urine Protein Trace A (Negative) Urine Glucose (UA) Negative (Negative) Urine Ketones 2+ A (Negative) Urine Blood 2+ A (Negative) Urine Nitrite Negative (Negative) Urine Bilirubin Negative (Negative) Urine Urobilinogen 0.2 (0.2-1.0) Ur Leukocyte Esterase 1+ A (Negative) Urine RBC 5-10 A (0-2) Urine WBC 10-25 A (0-5) Ur Squamous Epith Cells Few (None-Few) Other Sediment Few A (None) Urine Bacteria Few A (None) SARS-CoV-2 (PCR) Negative SARS-CoV-2 (Negative) Influenza Type A (PCR) Negative PCR FLU A (Negative) Influenza Type B (PCR) Negative PCR FLU B (Negative) RSV (PCR) Negative PCR RSV (Negative) POC Troponin I 0.01 (0.01-0.04) ng/ml Imaging Data Chest x-ray: Attestation: I have reviewed the pertinent imaging results. My impression: X-ray shows no acute finding Radiologist's impression: Patient: ISA ERVIN Facility:?[facility] Patient ID:?[id number] Site Patient ID:?[id number]. Site :?[id number] Study:?XRay Chest 2v-10/03/2022 11:47:52 AM Ordering Physician:Shyanne Murphy Final Report: INDICATION: Fever; weakness. COMPARISON: Portable AP chest July 05, 2020 and April 24, 2021. TECHNIQUE: Two-view chest. FINDINGS: Normal size cardiac silhouette. Low lung volumes secondary to poor inspiratory effort. No acute pneumonic infiltrates or CHF. No pneumothorax or pleural effusion. IMPRESSION: 1. Low lung volumes secondary to poor inspiratory effort. 2. No acute pathology. Dictated by Bib Bashir MD @ 10/03/2022 11:51:06 AM (Electronic Signature) Discharge Plan Discharge Clinical Impression: Urinary tract infection, History of fever, Weakness, Hx of multiple sclerosis Patient Disposition: Home w/ Parent or Adult Condition: Stable Instructions: Weakness (ED), Urinary Tract Infection in Older Adults (ED) Additional Instructions: Home rest antibiotics as directed, return here if increasing weakness fevers chills or signs of sepsis which are well-versed with. Take the antibiotics for the full course, we talked about worsening signs and symptoms they should return if this occurs, as he is at high risk given his history. Activity Level: Activity as Tolerated Discharge Diet: Regular Prescriptions: No Action oxybutin 5 mg PO BID baclofen 10 mg granules in packet 10 mg PO BID atorvastatin 20 mg tablet 20 mg PO QHS warfarin 2 mg tablet 2 mg PO 2XW warfarin 4 mg tablet 4 mg PO 5XW senna 8.6 mg capsule 8.6 mg PO DAILY peg 3350-electrolytes [Golytely] 236-22.74-6.74 -5.86 gram recon soln 240 ml PO Q10M Qty: 2 0RF Rx Instructions: until fecal effluent is clear Follow Up/Referrals: Hang Carpenter MD [Primary Care Provider] - Stand Alone Forms: [employer] Info Instructions
[2022-10-03] MEDS: ACETAMINOPHEN 500 MG TABLET 1000 MG PO (11:22)
[2022-10-03 11:47] LABS: Lactate* 1.7 mmol/L (0.5-1.9)
[2022-10-03 11:48] LABS: Basophils Absolute Auto 0.01 K/uL (0.00-0.30); Basophils Percent Auto 0.1 % (0.0-3.0); Eosinophils Absolute Auto 0.02 K/uL (0.00-0.50); Eosinophils Percent Auto 0.2 % (0.0-7.0); Hematocrit 52.7 % (37.0-53.0); Hemoglobin* 17.5 gm/dL (13.5-17.5); Immature Granulocytes Abs Auto 0.04 K/uL (0.00-0.30); Immature Granulocytes Pct Auto 0.4 %; Mean Corpuscular HGB Conc 33 gm/dL (32-36); Mean Corpuscular Hemoglobin 30 pg (26-34); Mean Corpuscular Volume 91 fL (80-100); Monocytes Percent Auto 12.8 % (0.0-11.0); Neutrophils Percent Auto 75.5 % (42.0-72.0); Platelet Count* 246 K/uL (140-440); RDW Coefficient of Variation % 14.5 % (11.5-15.5); Red Blood Count 5.82 m/uL (4.30-5.90); White Blood Count* 10.84 K/uL (4.50-11.00)
[2022-10-03 11:53] LABS: Slide Review Reflex No
[2022-10-03 11:58] LABS: Troponin, Point-of-Care* 0.01 ng/ml (0.01-0.04)
[2022-10-03 12:02] VITALS: BP 115/79; PULSE 105; O2SAT 93
[2022-10-03 12:03] VITALS: PULSE 100; O2SAT 94
[2022-10-03 12:15] VITALS: PULSE 103; O2SAT 89
[2022-10-03 12:27] LABS: Appearance Urine Clear (Clear); Bilirubin Urine Negative (Negative); Blood Urine 2+ (Negative); Color Urine Yellow (Yellow); Glucose Urine Negative (Negative); Ketones Urine 2+ (Negative); Leukocyte Esterase Urine 1+ (Negative); Nitrite Urine Negative (Negative); Protein Urine Trace (Negative); Specific Gravity Urine >= 1.030 (1.000-1.030); Urobilinogen Urine 0.2 (0.2-1.0); pH Urine 5.5 (5.0-8.5)
[2022-10-03 12:43] LABS: PCR FLU A Negative PCR FLU A (Negative); PCR FLU B Negative PCR FLU B (Negative); PCR RSV Negative PCR RSV (Negative)
[2022-10-03 12:45] LABS: SARS PCR* Negative SARS-CoV-2 (Negative)
[2022-10-03 12:46] LABS: Chloride* 105 mmol/L (96-114); Sodium* 135 mmol/L (135-149)
[2022-10-03 12:47] LABS: Potassium* 3.5 mmol/L (3.6-5.1)
[2022-10-03 12:49] LABS: Est. Creatinine Clearance* 67.03; Estimated Glomerular Filt Rate 84 ml/min
[2022-10-03 12:50] LABS: Blood Urea Nitrogen* 16 mg/dL (7-30); Calcium* 8.6 mg/dL (8.4-10.6); Carbon Dioxide* 21 mmol/L (20-32); Glucose* 113 mg/dL (60-115)
[2022-10-03 12:53] LABS: C Reactive Protein* 7.7 mg/dL (0.5-1.0)
[2022-10-03 13:10] LABS: Bacteria Urine Few; Squamous Epithelial Cell Urine Few (None-Few)
[2022-10-03 13:13] LABS: Other Sediment Urine Few
== END 2022-10-03 14:47 | disposition home or self-care (01) ==
PROVIDERS: Emergency Provider Family Medicine; PCP Family Medicine
DX: N39.0 Urinary tract infection, site not specified (principal)
CPT/HCPCS: 36415; 71046; 80048; 81001; 83605; 84484; 85025; 86140; 87040; 87086; 87186; 87502; 87634; 87635; 99284; A9270

== ENCOUNTER 2022-10-15 05:44 | Emergency (ER) | payer MEDICARE, BC, SELFPAY ==
[2022-10-15] VITALS (82 sets, daily range): BP systolic 71–138; BP diastolic 48–88; PULSE 80–127; RESP 28; TEMP 36.4–37.3; O2SAT 89–98
--- NOTE | 2022-10-15 06:04 | ED.AMS ---
HPI - Altered Mental Status General Chief Complaint: Altered Mental Status Stated Complaint: Possible UTI Time Seen by Provider: 10/15/22 06:05 History of Present Illness HPI narrative: 62-year-old man brought by to the emergency department with concern not being himself, being out of it. This has been accompanied by fever overnight. 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 Does have a history of MS and self caths. History of urinary tract infections and sepsis. Was treated for suspected UTI through this emergency department about 2 weeks ago with Cipro. INR is remained high per spouse. Fever measured this morning over 101. No cough or cold symptoms. No pain. No diarrhea. No shortness of breath though noted to be tachypneic. Over last couple of days notes that he has been leaking urine but they are not getting much with catheterizations. No noted rashes or headache. Related Data Home Medications Medication Instructions Recorded Confirmed atorvastatin 20 mg tablet 20 mg PO QHS 10/03/22 10/03/22 baclofen 10 mg oral granules in 10 mg PO BID 10/03/22 10/03/22 packet oxybutin 5 mg PO BID 10/03/22 10/03/22 sennosides 8.6 mg capsule (senna) 8.6 mg PO DAILY 10/03/22 10/03/22 warfarin 2 mg tablet 2 mg PO 2XW 10/03/22 10/03/22 warfarin 4 mg tablet 4 mg PO 5XW 10/03/22 10/03/22 Previous Rx's Medication Instructions Recorded peg 3350-electrolytes 236 240 ml PO Q10M #2 mL 06/14/22 gram-22.74 gram-6.74 gram-5.86 gram solution (Golytely) Allergies Allergy/AdvReac Type Severity Reaction Status Date / Time bee venom protein (honey bee) Allergy Verified 10/03/22 10:45 Penicillins Allergy Uncoded 06/30/22 09:47 Review of Systems Status of ROS: Reports: 10 or more systems reviewed and unremarkable except as noted in History and below PFSH PFSH Social History Smoking Status: Never smoker Do you use any of these nicotine containing products: None Second hand tobacco smoke exposure: No How often do you have a drink containing alcohol: monthly or less How many standard drinks containing alcohol do you have on a typical day: 1 or 2 How often do you have six or more drinks on one occasion: Never AUDIT-C Alcohol total score: 1 Non-prescribed substance use: denies use service: No Exam Narrative: Exam Narrative: Looks flushed. Rolling head from side to side. Able to answer questions briefly but does appear confused. Winks at me at 1 point. Oropharynx is sticky. Thought i caught smell of ketones but that seemed to have faded. Lungs appear to be clear but again tachypneic. Cardiovascular is tachycardic. Noted blood pressure to be somewhat low on arrival. Abdomen is overweight soft and nontender. Lower extremities with trace pretibial pitting edema. Skin is warm and dry. Seems somewhat flushed in his face in particular. Cranial nerves 2-12 to be intact. Const: Vital Signs, click to edit/add: Vital Signs - 24 hr 10/15/22 05:58 10/15/22 06:26 10/15/22 06:27 Temperature 99.1 F Pulse Rate 108 H 105 H Pulse Rate [Left P ulse Oximeter] 127 H Respiratory Rate 28 H Blood Pressure 83/53 L Blood Pressure [Ri ght Upper Arm] 89/61 L Pulse Oximetry 89 94 93 Oxygen Delivery Me thod Room Air Nasal Cannula Oxygen Flow Rate 2.5 10/15/22 06:30 10/15/22 06:32 10/15/22 06:41 Temperature Pulse Rate 100 112 H Pulse Rate [Left P ulse Oximeter] Respiratory Rate Blood Pressure 81/48 L 87/50 L Blood Pressure [Ri ght Upper Arm] Pulse Oximetry 93 93 Oxygen Delivery Me thod Nasal Cannula Nasal Cannula Oxygen Flow Rate 2.5 2.5 10/15/22 06:50 10/15/22 06:51 10/15/22 07:00 Temperature Pulse Rate 106 H 93 104 H Pulse Rate [Left P ulse Oximeter] Respiratory Rate Blood Pressure 71/52 L Blood Pressure [Ri ght Upper Arm] Pulse Oximetry 94 95 95 Oxygen Delivery Me thod Nasal Cannula Oxygen Flow Rate 2.5 10/15/22 07:01 10/15/22 07:10 10/15/22 07:11 Temperature Pulse Rate 100 99 Pulse Rate [Left P ulse Oximeter] Respiratory Rate Blood Pressure 79/51 L 79/53 L Blood Pressure [Ri ght Upper Arm] Pulse Oximetry 95 96 Oxygen Delivery Me thod Oxygen Flow Rate 10/15/22 07:12 10/15/22 07:20 10/15/22 07:22 Temperature 97.5 F L Pulse Rate 91 89 93 Pulse Rate [Left P ulse Oximeter] Respiratory Rate Blood Pressure 78/56 L Blood Pressure [Ri ght Upper Arm] Pulse Oximetry 96 96 96 Oxygen Delivery Me thod Oxygen Flow Rate 10/15/22 07:30 10/15/22 07:32 10/15/22 07:40 Temperature Pulse Rate 97 93 92 Pulse Rate [Left P ulse Oximeter] Respiratory Rate Blood Pressure 79/49 L Blood Pressure [Ri ght Upper Arm] Pulse Oximetry 96 96 96 Oxygen Delivery Me thod Oxygen Flow Rate 10/15/22 07:41 Temperature Pulse Rate 94 Pulse Rate [Left P ulse Oximeter] Respiratory Rate Blood Pressure 81/49 L Blood Pressure [Ri ght Upper Arm] Pulse Oximetry 94 Oxygen Delivery Me thod Oxygen Flow Rate Documenting provider has reviewed patient's vital signs: yes Course Vital Signs Vital signs: Initial Vital Signs Temperature 99.1 F 10/15/22 05:58 Temperature Source Temporal Artery Scan 10/15/22 05:58 Pulse Rate 127 H 10/15/22 05:58 Pulse Rhythm 10/15/22 05:58 Respiratory Rate 28 H 10/15/22 05:58 Blood Pressure 89/61 L 10/15/22 05:58 Blood Pressure Mean 70 10/15/22 05:58 Blood Pressure Position Sitting 10/15/22 05:58 Pulse Oximetry 89 10/15/22 05:58 Oxygen Delivery Method 10/15/22 05:58 Vital Signs Temperature 99.1 F 10/15/22 05:58 Pulse Rate 127 H 10/15/22 05:58 Respiratory Rate 28 H 10/15/22 05:58 Blood Pressure 89/61 L 10/15/22 05:58 Pulse Oximetry 89 10/15/22 05:58 Oxygen Delivery Method 10/15/22 05:58 Temperature 97.5 F L 10/15/22 07:12 Pulse Rate 94 10/15/22 07:41 Respiratory Rate 28 H 10/15/22 05:58 Blood Pressure 81/49 L 10/15/22 07:41 Pulse Oximetry 94 10/15/22 07:41 Oxygen Delivery Method 10/15/22 06:50 Oxygen Flow Rate 2.5 10/15/22 06:50 MDM - Altered Mental Status MDM Narrative Medical decision making narrative: Will be receiving fluid boluses initially with normal saline. Primary concern is sepsis here in this picture. Labs are pending. Blood cultures. source likely urine but will look elsewhere as well. After initial L does seem to be of better energy and mentation. Map at 62 Review of record shows urine culture from 04/20 growing Enterobacter. This was with some cephalosporin resistance as well as to nitrofurantoin. Blood pressure still rather low. Map as low as 53. Has received 2 L of normal saline. Will be initiating a 3rd L of fluids. Pending urine and concern of sepsis we have initiated Zosyn dosing. Cultures have been collected. Chest x-ray by my read does not show clear infiltrate but appears to be some interstitial congestion perihilar fullness those similar to prior chest x-ray. Urine looks to be grossly positive for infection. White count is nearly 15,000. Initial lactate though is 1 Have discussed this case with our hospitalist initially unfortunately did not have any bed availability. Have been looking elsewhere. May still be able to be admitted at this facility. Pending this disposition at handoff at change of shift. Medical Records Attestation: I reviewed the patient's medical records. Lab Data Attestation: I reviewed the patient's lab results. Labs: Lab Results 10/15/22 10/15/22 10/15/22 Range/Units 06:08 06:08 06:08 WBC 14.46 H (4.50-11.00) K/uL RBC 5.51 (4.30-5.90) m/uL Hgb 16.4 (13.5-17.5) gm/dL Hct 49.6 (37.0-53.0) % MCV 90 (80-100) fL MCH 30 (26-34) pg MCHC 33 (32-36) gm/dL RDW Coeff of Nas 14.0 (11.5-15.5) % Plt Count 416 (140-440) K/uL Neut % (Auto) 89.0 H (42.0-72.0) % Lymph % (Auto) 4.1 L (20-44) % [place] % (Auto) 5.7 (0.0-11.0) % Eos % (Auto) 0.1 (0.0-7.0) % Baso % (Auto) 0.1 (0.0-3.0) % Neut # (Auto) 12.90 H (1.7-7.0) K/uL Lymph # (Auto) 0.60 L (0.90-2.90) K/uL [place] # (Auto) 0.80 (0.00-0.90) K/UL Eos # (Auto) 0.00 (0.00-0.50) K/uL Baso # (Auto) 0.00 (0.00-0.30) K/uL INR (0.91-1.10) Sodium 137 (135-149) mmol/L Potassium 4.5 (3.6-5.1) mmol/L Chloride 108 (96-114) mmol/L Carbon Dioxide 22 (20-32) mmol/L BUN 13 (7-30) mg/dL Creatinine 0.8 (0.5-1.5) mg/dL Estimated GFR 99 ml/min Glucose 125 H (60-115) mg/dL Venous Lactic Acid (Serial Order) Calcium 8.8 (8.4-10.6) mg/dL Total Bilirubin 1.4 (0.1-1.5) mg/dL Direct Bilirubin 0.4 (0.0-0.5) mg/dL AST 29 (12-35) U/L ALT 31 (4-50) U/L Alkaline Phosphatase 109 (40-150) U/L C-Reactive Protein 4.8 H (0.5-1.0) mg/dL Total Protein 8.0 (6.0-8.3) g/dL Albumin 4.0 (3.3-5.0) g/dL Procalcitonin 0.11 (<0.50) ng/mL Urine Color (Yellow) Urine Appearance (Clear) Urine pH (5.0-8.5) Ur Specific [place] (1.000-1.030) Urine Protein (Negative) Urine Glucose (UA) (Negative) Urine Ketones (Negative) Urine Blood (Negative) Urine Nitrite (Negative) Urine Bilirubin (Negative) Urine Urobilinogen (0.2-1.0) Ur Leukocyte Esterase (Negative) Urine RBC (0-2) Urine WBC (0-5) Ur Squamous Epith Cells (None-Few) Urine Bacteria (None) SARS-CoV-2 (PCR) Negative SARS-CoV-2 (Negative) Influenza Type A (PCR) Negative PCR FLU A (Negative) Influenza Type B (PCR) Negative PCR FLU B (Negative) RSV (PCR) Negative PCR RSV (Negative) 10/15/22 10/15/22 10/15/22 Range/Units 06:08 06:08 06:22 WBC (4.50-11.00) K/uL RBC (4.30-5.90) m/uL Hgb (13.5-17.5) gm/dL Hct (37.0-53.0) % MCV (80-100) fL MCH (26-34) pg MCHC (32-36) gm/dL RDW Coeff of Nas (11.5-15.5) % Plt Count (140-440) K/uL Neut % (Auto) (42.0-72.0) % Lymph % (Auto) (20-44) % [place] % (Auto) (0.0-11.0) % Eos % (Auto) (0.0-7.0) % Baso % (Auto) (0.0-3.0) % Neut # (Auto) (1.7-7.0) K/uL Lymph # (Auto) (0.90-2.90) K/uL [place] # (Auto) (0.00-0.90) K/UL Eos # (Auto) (0.00-0.50) K/uL Baso # (Auto) (0.00-0.30) K/uL INR 2.81 H (0.91-1.10) Sodium (135-149) mmol/L Potassium (3.6-5.1) mmol/L Chloride (96-114) mmol/L Carbon Dioxide (20-32) mmol/L BUN (7-30) mg/dL Creatinine (0.5-1.5) mg/dL Estimated GFR ml/min Glucose (60-115) mg/dL Venous Lactic Acid (Serial Order) Calcium (8.4-10.6) mg/dL Total Bilirubin (0.1-1.5) mg/dL Direct Bilirubin (0.0-0.5) mg/dL AST (12-35) U/L ALT (4-50) U/L Alkaline Phosphatase (40-150) U/L C-Reactive Protein (0.5-1.0) mg/dL Total Protein (6.0-8.3) g/dL Albumin (3.3-5.0) g/dL Procalcitonin (<0.50) ng/mL Urine Color Yellow (Yellow) Urine Appearance Cloudy A (Clear) Urine pH 7.0 (5.0-8.5) Ur Specific [place] 1.020 (1.000-1.030) Urine Protein Trace A (Negative) Urine Glucose (UA) Negative (Negative) Urine Ketones Negative (Negative) Urine Blood 2+ A (Negative) Urine Nitrite Positive A (Negative) Urine Bilirubin Negative (Negative) Urine Urobilinogen 0.2 (0.2-1.0) Ur Leukocyte Esterase 1+ A (Negative) Urine RBC 2-5 A (0-2) Urine WBC 25-50 A (0-5) Ur Squamous Epith Cells Few (None-Few) Urine Bacteria Many A (None) SARS-CoV-2 (PCR) (Negative) Influenza Type A (PCR) (Negative) Influenza Type B (PCR) (Negative) RSV (PCR) (Negative) Critical Care Time Critical Care Time Total Critical Care Time in Minutes: 70 Discharge Plan Discharge Clinical Impression: Urinary tract infection, Sepsis Patient Disposition: Admitted As Inpatient Condition: Stable
[2022-10-15] MEDS: 0.9 % SODIUM CHLORIDE 1000 ml 1,000 ML IV ×3 (06:28→08:39)
--- NOTE | 2022-10-15 06:31 | CRLHL7_ITS ---
For Patients: As a result of the Century Cures Act, medical imaging exams and procedure reports are released immediately into your electronic medical record. You may view this report before your referring provider. If you have questions, please contact your health care provider. Indication: Hypoxia. Technique: Chest 1 view. Comparison: 10/03/2022. Findings/Impression: Cardiovascular and mediastinum: Heart size and vasculature are normal in caliber and appearance. Lungs and pleural space: Central congestive changes and interstitial prominence are unchanged if not worsened compared to the recent prior exam. Fluid overload or CHF could have this appearance. Central bronchitis is also consideration. Remainder of the lungs and pleural spaces are clear. No pneumothorax. Bones and soft tissues: No acute findings. Dictated by Tin Maharaj MD @ 10/15/2022 7:21:36 AM (Electronically Signed)
--- NOTE | 2022-10-15 06:31 | ED.NURSE ---
Blood sugar 117.
[2022-10-15 06:34] LABS: Basophils Percent Auto 0.1 % (0.0-3.0); Eosinophils Percent Auto 0.1 % (0.0-7.0); Hematocrit 49.6 % (37.0-53.0); Hemoglobin* 16.4 gm/dL (13.5-17.5); Lymphocytes Percent Auto 4.1 % (20-44); Mean Corpuscular HGB Conc 33 gm/dL (32-36); Mean Corpuscular Hemoglobin 30 pg (26-34); Mean Corpuscular Volume 90 fL (80-100); Monocytes Percent Auto 5.7 % (0.0-11.0); Platelet Count* 416 K/uL (140-440); Red Blood Count 5.51 m/uL (4.30-5.90); Slide Review Reflex No; White Blood Count* 14.46 K/uL (4.50-11.00)
[2022-10-15 06:36] LABS: Chloride* 108 mmol/L (96-114)
[2022-10-15 06:37] LABS: Potassium* 4.5 mmol/L (3.6-5.1); Sodium* 137 mmol/L (135-149)
[2022-10-15 06:39] LABS: Creatinine* 0.8 mg/dL (0.5-1.5); Estimated Glomerular Filt Rate 99 ml/min
[2022-10-15 06:40] LABS: Alanine Aminotransferase* 31 U/L (4-50); Alkaline Phosphatase* 109 U/L (40-150); Aspartate Amino Transferase* 29 U/L (12-35); Bilirubin Direct* 0.4 mg/dL (0.0-0.5); Bilirubin Total* 1.4 mg/dL (0.1-1.5); Blood Urea Nitrogen* 13 mg/dL (7-30); Calcium* 8.8 mg/dL (8.4-10.6); Carbon Dioxide* 22 mmol/L (20-32); Glucose* 125 mg/dL (60-115)
[2022-10-15 06:43] LABS: C Reactive Protein* 4.8 mg/dL (0.5-1.0)
[2022-10-15 06:44] LABS: INR 2.81 (0.91-1.10); Prothrombin Time 30.9 Seconds
[2022-10-15 06:57] LABS: Procalcitonin* 0.11 ng/mL (<0.50)
[2022-10-15 07:13] LABS: PCR FLU A Negative PCR FLU A (Negative); PCR FLU B Negative PCR FLU B (Negative); PCR RSV Negative PCR RSV (Negative)
[2022-10-15 07:29] LABS: Appearance Urine Cloudy (Clear); Bilirubin Urine Negative (Negative); Blood Urine 2+ (Negative); Color Urine Yellow (Yellow); Glucose Urine Negative (Negative); Ketones Urine Negative (Negative); Leukocyte Esterase Urine 1+ (Negative); Nitrite Urine Positive (Negative); Protein Urine Trace (Negative); Urobilinogen Urine 0.2 (0.2-1.0)
[2022-10-15 07:29] LABS: SARS PCR* Negative SARS-CoV-2 (Negative)
[2022-10-15] MEDS: PIPERACILLIN/TAZOBACTAM 3.375 GM in 0.9 % SODIUM CHLORIDE Mini-bag 100 ML IVPB (07:43)
[2022-10-15 07:51] LABS: Bacteria Urine Many; Squamous Epithelial Cell Urine Few (None-Few); WBC Urine 25-50 (0-5)
[2022-10-15 08:37] LABS: Lactate Sepsis 2 Hour 0.5 mmol/L (0.5-1.9)
[2022-10-15] MEDS: LACTATED RINGERS 1000 ML 1,000 ML 200 ML IV (09:27)
--- NOTE | 2022-10-15 10:20 | PC.NURSE ---
pt used call light as pt had told her he needed to void, pt self caths at home, spoke to MD and verbal order for mitchell given, mitchell placed to straight drainage with assist of 2, urine straw colored
== END 2022-10-15 13:15 | disposition admitted as inpatient to this hospital (09) ==
PROVIDERS: Family Medicine; Emergency Provider Family Medicine; PCP Family Medicine
DX: N39.0 Urinary tract infection, site not specified (principal); A41.9 Sepsis, unspecified organism
CPT/HCPCS: 36415; 71045; 80048; 80076; 81001; 84145; 85025; 85610; 86140; 87040; 87086; 87186; 87502; 87634; 87635; 94761; 96365; 99285; 99291; J2543; J7030; J7120

== ENCOUNTER 2022-10-15 13:09 | Outpatient (CLI) | payer MEDICARE, BC, SELFPAY | END 2022-10-15 13:10 | disposition home or self-care (01) | LOC: AMB 10-16 00:44 | PROVIDERS: PCP Family Medicine; Visit Provider Family Medicine | DX: A41.9 Sepsis, unspecified organism (principal) | CPT/HCPCS: A0425; A0434 ==

== ENCOUNTER 2023-02-05 17:58 | Inpatient (IN) | payer MEDICARE, BC, SELFPAY ==
[2023-02-05] VITALS (20 sets, daily range): BP systolic 111–149; BP diastolic 85–104; PULSE 103–128; RESP 16–20; TEMP 36.7–37.4; O2SAT 89–97
--- NOTE | 2023-02-05 18:34 | ED_ITS ---
HPI - Altered Mental Status General Chief Complaint: Altered Mental Status Stated Complaint: Altered mental status Time Seen by Provider: 02/05/23 18:05 History of Present Illness HPI narrative: This 62-year-old male comes in with his who reports increased confusion and has suspicion for urinary tract infection. The patient has multiple sclerosis and does self-catheterize daily. His states that his urine output has been less recently. There is no report of any fevers. He does arrive with tachycardia but otherwise has normal vital signs. The patient states that he feels fine. Related Data Home Medications Medication Instructions Recorded Confirmed atorvastatin 20 mg tablet 20 mg PO QHS 10/03/22 10/03/22 baclofen 10 mg oral granules in 10 mg PO BID 10/03/22 10/03/22 packet oxybutin 5 mg PO BID 10/03/22 10/03/22 sennosides 8.6 mg capsule (senna) 8.6 mg PO DAILY 10/03/22 10/03/22 warfarin 2 mg tablet 2 mg PO 2XW 10/03/22 10/03/22 warfarin 4 mg tablet 4 mg PO 5XW 10/03/22 10/03/22 Previous Rx's Medication Instructions Recorded peg 3350-electrolytes 236 240 ml PO Q10M #2 mL 06/14/22 gram-22.74 gram-6.74 gram-5.86 gram solution (Golytely) Allergies Allergy/AdvReac Type Severity Reaction Status Date / Time bee venom protein (honey bee) Allergy Verified 10/03/22 10:45 Penicillins Allergy Uncoded 06/30/22 09:47 Review of Systems Status of ROS: Reports: 10 or more systems reviewed and unremarkable except as noted in History and below Narrative: Constitutional: No fevers, no weight gain or loss. Eyes: No discharge. No vision changes. HENT: No congestion, no sore throat, no ear pain. Cardiovascular: No chest pain, no palpitations. Respiratory: No shortness of breath, no wheezes, no cough. Gastrointestinal: No abdominal pain, no vomiting, no diarrhea. Genitourinary: Self catheterization. Decreased urine output recently. Musculoskeletal: Normal range of motion. Skin: No rashes, no pruritis. Neurological: No dizziness, weakness, sensory change, speech change. Endo/Heme/Allergies: No bruising or bleeding. No polydipsia. Pysch: no suicidality, no anxiety, no insomnia. All other systems reviewed and are negative. [facility] Social History Smoking Status: Never smoker Do you use any of these nicotine containing products: None Second hand tobacco smoke exposure: No How often do you have a drink containing alcohol: monthly or less How many standard drinks containing alcohol do you have on a typical day: 1 or 2 How often do you have six or more drinks on one occasion: Never AUDIT-C Alcohol total score: 1 Non-prescribed substance use: denies use service: No Exam Narrative: Exam Narrative: Constitutional: Well-developed, well-nourished, no acute distress. HEENT: Normocephalic, atraumatic. Neck: Normal range of motion. Nontender. Supple. Heart: Regular. No murmurs. Tachycardia. Intact distal pulses. Lungs: Clear to auscultation. No chest discomfort. No wheezes, rhonchi, or rales. Abdomen: Normal bowel sounds. Nontender. No rebound tenderness. Genitalia: Deferred. Back: No midline tenderness. Normal range of motion. Extremities: Normal range of motion. No injury. Skin: Intact. No rash. Warm. No erythema or pallor. Neurologic: No altered sensation. No weakness. Alert and oriented. Psychiatric: No suicidality. No anxiety or depression. No insomnia. Nursing notes and vitals signs are reviewed. Const: Vital Signs, click to edit/add: Vital Signs - 24 hr 02/05/23 18:18 02/05/23 18:21 02/05/23 19:39 Temperature 99 F Pulse Rate 120 H Pulse Rate [Pulse Oximeter] 128 H Respiratory Rate 20 Blood Pressure Blood Pressure [Ri ght Upper Arm] 149/104 H Pulse Oximetry 89 94 95 Oxygen Delivery Me thod Room Air Nasal Cannula Oxygen Flow Rate 3 02/05/23 19:45 02/05/23 19:46 02/05/23 20:00 Temperature Pulse Rate 118 H 118 H 117 H Pulse Rate [Pulse Oximeter] Respiratory Rate Blood Pressure 144/93 H Blood Pressure [Ri ght Upper Arm] Pulse Oximetry 95 95 95 Oxygen Delivery Me thod Oxygen Flow Rate 02/05/23 20:02 02/05/23 20:15 02/05/23 20:17 Temperature Pulse Rate 118 H 116 H 115 H Pulse Rate [Pulse Oximeter] Respiratory Rate Blood Pressure 144/91 H 133/91 H Blood Pressure [Ri ght Upper Arm] Pulse Oximetry 97 95 94 Oxygen Delivery Me thod Oxygen Flow Rate Course Vital Signs Vital signs: Initial Vital Signs Temperature 99 F 02/05/23 18:18 Temperature Source Temporal Artery Scan 02/05/23 18:18 Pulse Rate 128 H 02/05/23 18:18 Pulse Rhythm Regular 02/05/23 18:18 Respiratory Rate 20 02/05/23 18:18 Blood Pressure 149/104 H 02/05/23 18:18 Blood Pressure Mean 119 H 02/05/23 18:18 Blood Pressure Position Supine 02/05/23 18:18 Pulse Oximetry 89 02/05/23 18:18 Oxygen Delivery Method Room Air 02/05/23 18:18 Vital Signs Temperature 99 F 02/05/23 18:18 Pulse Rate 128 H 02/05/23 18:18 Respiratory Rate 20 02/05/23 18:18 Blood Pressure 149/104 H 02/05/23 18:18 Pulse Oximetry 89 02/05/23 18:18 Oxygen Delivery Method Room Air 02/05/23 18:18 Temperature 99 F 02/05/23 18:18 Pulse Rate 115 H 02/05/23 20:17 Respiratory Rate 20 02/05/23 18:18 Blood Pressure 133/91 H 02/05/23 20:17 Pulse Oximetry 94 02/05/23 20:17 Oxygen Delivery Method Nasal Cannula 02/05/23 18:21 Oxygen Flow Rate 3 02/05/23 18:21 MDM - Altered Mental Status MDM Narrative Medical decision making narrative: This patient comes in with suspicion of urinary tract infection as he regularly self catheterizes and has had such infections in the past. He has also had sepsis related to urinary tract infection in the past. He does arrive with t achycardia but is not tripping any other SIRS criteria for sepsis workup nevertheless blood cultures were drawn an IV was established and lactate level returns normal. After blood cultures were drawn the patient did receive a g of Rocephin intravenously. I did discuss these matters with the patient and his . His is concerned about his history and would feel better about him staying overnight in the hospital. I did speak with the hospitalist loan operations specialist who agrees to this plan. Lab Data Labs: Lab Results 02/05/23 02/05/23 Range/Units 18:35 19:20 WBC 13.52 H (4.50-11.00) K/uL RBC 5.81 (4.30-5.90) m/uL Hgb 17.2 (13.5-17.5) gm/dL Hct 53.0 (37.0-53.0) % MCV 91 (80-100) fL MCH 30 (26-34) pg MCHC 33 (32-36) gm/dL RDW Coeff of Nas 14.9 (11.5-15.5) % Plt Count 247 (140-440) K/uL Neut % (Auto) 87.9 H (42.0-72.0) % Lymph % (Auto) 5.0 L (20-44) % [place] % (Auto) 6.8 (0.0-11.0) % Eos % (Auto) 0.1 (0.0-7.0) % Baso % (Auto) 0.1 (0.0-3.0) % Neut # (Auto) 11.90 H (1.7-7.0) K/uL Lymph # (Auto) 0.70 L (0.90-2.90) K/uL [place] # (Auto) 0.90 (0.00-0.90) K/UL Eos # (Auto) 0.00 (0.00-0.50) K/uL Baso # (Auto) 0.00 (0.00-0.30) K/uL Sodium 138 (135-149) mmol/L Potassium 4.0 (3.6-5.1) mmol/L Chloride 106 (96-114) mmol/L Carbon Dioxide 26 (20-32) mmol/L BUN 11 (7-30) mg/dL Creatinine 0.7 (0.5-1.5) mg/dL Estimated GFR 103 ml/min Glucose 98 (60-115) mg/dL Lactate 1.6 (0.5-1.9) mmol/L Calcium 8.7 (8.4-10.6) mg/dL Urine Color Yellow (Yellow) Urine Appearance Clear (Clear) Urine pH 5.5 (5.0-8.5) Ur Specific [place] 1.025 (1.000-1.030) Urine Protein 1+ A (Negative) Urine Glucose (UA) Negative (Negative) Urine Ketones Negative (Negative) Urine Blood 2+ A (Negative) Urine Nitrite Positive A (Negative) Urine Bilirubin Negative (Negative) Urine Urobilinogen 0.2 (0.2-1.0) Ur Leukocyte Esterase 1+ A (Negative) Urine RBC 10-25 A (0-2) Urine WBC 5-10 A (0-5) Ur Squamous Epith Cells None (None-Few) Urine Bacteria Many A (None) Discharge Plan Discharge Clinical Impression: Urinary tract infection Patient Disposition: Admitted As Inpatient Condition: Unchanged Prescriptions: No Action oxybutin 5 mg PO BID baclofen 10 mg granules in packet 10 mg PO BID atorvastatin 20 mg tablet 20 mg PO QHS warfarin 2 mg tablet 2 mg PO 2XW warfarin 4 mg tablet 4 mg PO 5XW senna 8.6 mg capsule 8.6 mg PO DAILY peg 3350-electrolytes [Golytely] 236-22.74-6.74 -5.86 gram recon soln 240 ml PO Q10M Qty: 2 0RF Rx Instructions: until fecal effluent is clear Follow Up/Referrals: Hang Carpenter MD [Primary Care Provider] - Stand Alone Forms: [employer] Info Instructions
[2023-02-05 18:47] LABS: Lactate* 1.6 mmol/L (0.5-1.9)
[2023-02-05 18:50] LABS: Basophils Percent Auto 0.1 % (0.0-3.0); Eosinophils Percent Auto 0.1 % (0.0-7.0); Hemoglobin* 17.2 gm/dL (13.5-17.5); Immature Granulocytes Pct Auto 0.1 %; Mean Corpuscular HGB Conc 33 gm/dL (32-36); Mean Corpuscular Hemoglobin 30 pg (26-34); Mean Corpuscular Volume 91 fL (80-100); Monocytes Percent Auto 6.8 % (0.0-11.0); Neutrophils Percent Auto 87.9 % (42.0-72.0); Platelet Count* 247 K/uL (140-440); RDW Coefficient of Variation % 14.9 % (11.5-15.5); Red Blood Count 5.81 m/uL (4.30-5.90); White Blood Count* 13.52 K/uL (4.50-11.00)
[2023-02-05] MEDS: 0.9 % SODIUM CHLORIDE 1000 ml 1,000 ML IV (18:50)
[2023-02-05 18:51] LABS: Slide Review Reflex No
[2023-02-05 19:03] LABS: Chloride* 106 mmol/L (96-114); Sodium* 138 mmol/L (135-149)
[2023-02-05 19:06] LABS: Blood Urea Nitrogen* 11 mg/dL (7-30); Calcium* 8.7 mg/dL (8.4-10.6); Carbon Dioxide* 26 mmol/L (20-32); Creatinine* 0.7 mg/dL (0.5-1.5); Estimated Glomerular Filt Rate 103 ml/min; Glucose* 98 mg/dL (60-115)
[2023-02-05 19:28] LABS: Appearance Urine Clear (Clear); Bilirubin Urine Negative (Negative); Blood Urine 2+ (Negative); Color Urine Yellow (Yellow); Glucose Urine Negative (Negative); Ketones Urine Negative (Negative); Leukocyte Esterase Urine 1+ (Negative); Nitrite Urine Positive (Negative); Protein Urine 1+ (Negative); Specific Gravity Urine 1.025 (1.000-1.030); Urobilinogen Urine 0.2 (0.2-1.0); pH Urine 5.5 (5.0-8.5)
[2023-02-05 19:43] LABS: Bacteria Urine Many
[2023-02-05] MEDS: cefTRIAXone 1 GM in 0.9 % SODIUM CHLORIDE Mini-bag 100 ML IVPB (20:08)
--- NOTE | 2023-02-05 20:57 | ED.NURSE ---
Report to [facility] on Med Surg. Patient transport via stretcher to room 251.
--- NOTE | 2023-02-05 21:55 | P.IMHP_ITS ---
Hospitalist- H&P: HPI History of Present Illness Date Seen: 02/05/23 Chief complaint: Altered mental status Narrative: Dwain Hinds is a 62 year old male who presented to the ER with his for concerns of a UTI. provides much of the history; notes that Dhruv started having decreased urine output yesterday and today she noted malodorous, particulate urine. Dhruv did not have a fever, but is much more tired than usual. has not noticed confusion today. Patient has a history of UTIs and self catheterizes 2/2 neurogenic bladder. ER course and findings: - white blood count 13, normal lactate - UA+, blood and urine cultures collected and pending - Given ceftriaxone and IV fluid bolus - tachycardia, hypoxic requiring supplemental oxygen, normal blood pressure and afebrile Patient's history updated below, PCP is Dr. Carpenter at [facility] in [place]. Notably, patient has a history of MS and is nonambulatory. 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 Last INR was 2.5 at the outpatient clinic 5 days ago. Review of Systems Status of ROS: Reports: 10 or more systems reviewed and unremarkable except as noted in History and below Narrative: - no fevers - no skin changes; specifically denies any sacral skin breakdown or ulcers - no gross hematuria - no chest pain or dyspnea - has noted some eye dryness and itching, good relief with Pataday eyedrops [facility] Medical History (Updated 02/05/23 @ 22:21 by Aisha Merrill MD) Femur fracture ?S72.90XA - Unspecified fracture of unspecified femur, initial encounter for closed fracture (ICD-10) Nephrolithiasis ?N20.0 - Calculus of kidney (ICD-10) Multiple sclerosis ?G35 - Multiple sclerosis (ICD-10) Anticoagulated on Coumadin ?Z79.01 - [facility] (current) use of anticoagulants (ICD-10) History of pulmonary embolism ?Z86.711 - Personal history of pulmonary embolism (ICD-10) Hyperlipidemia ?E78.5 - Hyperlipidemia, unspecified (ICD-10) Neurogenic bladder ?N31.9 - Neuromuscular dysfunction of bladder, unspecified (ICD-10) Surgical History (Updated 02/05/23 @ 22:16 by Aisha Merrill MD) History of tonsillectomy and adenoidectomy ?Z90.89 - Acquired absence of other organs (ICD-10) Family History (Updated 02/05/23 @ 22:18 by Aisha Merrill MD) Mother Colon cancer COPD (chronic obstructive pulmonary disease) Father Heart disease Social History (Updated 02/05/23 @ 22:20 by Aisha Merrill MD) Narrative: Lives with Maida in [place]; 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 Adult children. 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 Former smoker. Smoking Status: Never smoker Do you use any of these nicotine containing products: None Second hand tobacco smoke exposure: No How often do you have a drink containing alcohol: monthly or less How many standard drinks containing alcohol do you have on a typical day: 1 or 2 How often do you have six or more drinks on one occasion: Never AUDIT-C Alcohol total score: 1 Non-prescribed substance use: denies use service: No Meds Home Medications and Allergies Home Medications Medication Instructions Recorded Confirmed Type atorvastatin 20 mg tablet 20 mg PO QHS 10/03/22 02/05/23 History baclofen 10 mg oral granules in 10 mg PO BID 10/03/22 02/05/23 History packet oxybutin 5 mg PO BID 10/03/22 02/05/23 History sennosides 8.6 mg capsule (senna) 8.6 mg PO DAILY 10/03/22 02/05/23 History warfarin 2 mg tablet 2 mg PO 2XW 10/03/22 02/05/23 History warfarin 4 mg tablet 4 mg PO 5XW 10/03/22 02/05/23 History olopatadine 0.2 % eye drops (Eye 2 drp ophthalmic (eye) DAILY 02/05/23 02/05/23 History Allergy Itch Relief) Allergies Allergy/AdvReac Type Severity Reaction Status Date / Time bee venom protein (honey bee) Allergy Verified 10/03/22 10:45 Exam Narrative: Exam Narrative: GEN: Alert and nontoxic, laying comfortably in bed HEENT: EOMIs bilaterally, no scleral icterus. No significant conjunctival injection, mild bilateral drainage noted CV: Sinus tachycardia with heart rate in the 100 range during my exam, no concerning murmurs R: LCTA bilaterally without concerning wheezing, air movement adequate Abdomen: Soft, nontender, nondistended Ext: wwp, no concerning edema Skin: No concerning skin lesions or rashes on exposed skin Neuro: Patient moves upper extremities spontaneously, he has no resting tremor. No focal deficits of cranial nerves Psych: Appropriate Const: Vital Signs, click to edit/add: Vital Signs - 24 hr 02/05/23 18:18 02/05/23 18:21 02/05/23 19:00 Temperature 99 F 99.3 F Pulse Rate Pulse Rate [Pulse Oximeter] 128 H 122 H Respiratory Rate 20 16 Blood Pressure Blood Pressure [Ri ght Upper Arm] 149/104 H Pulse Oximetry 89 94 94 Oxygen Delivery Me thod Room Air Nasal Cannula Nasal Cannula Oxygen Flow Rate 3 3 02/05/23 19:39 02/05/23 19:45 02/05/23 19:46 Temperature Pulse Rate 120 H 118 H 118 H Pulse Rate [Pulse Oximeter] Respiratory Rate Blood Pressure 144/93 H Blood Pressure [Ri ght Upper Arm] Pulse Oximetry 95 95 95 Oxygen Delivery Me thod Nasal Cannula Oxygen Flow Rate 3 02/05/23 20:00 02/05/23 20:02 02/05/23 20:15 Temperature Pulse Rate 117 H 118 H 116 H Pulse Rate [Pulse Oximeter] Respiratory Rate Blood Pressure 144/91 H Blood Pressure [Ri ght Upper Arm] Pulse Oximetry 95 97 95 Oxygen Delivery Me thod Oxygen Flow Rate 02/05/23 20:17 02/05/23 20:18 02/05/23 20:30 Temperature Pulse Rate 115 H 116 H 116 H Pulse Rate [Pulse Oximeter] Respiratory Rate Blood Pressure 133/91 H Blood Pressure [Ri ght Upper Arm] Pulse Oximetry 94 95 94 Oxygen Delivery Me thod Oxygen Flow Rate 02/05/23 20:32 02/05/23 20:42 02/05/23 20:45 Temperature Pulse Rate 116 H 113 H 103 H Pulse Rate [Pulse Oximeter] Respiratory Rate Blood Pressure 132/86 124/91 H Blood Pressure [Ri ght Upper Arm] Pulse Oximetry 94 95 94 Oxygen Delivery Me thod Oxygen Flow Rate 02/05/23 20:47 02/05/23 20:48 Temperature Pulse Rate 109 H 115 H Pulse Rate [Pulse Oximeter] Respiratory Rate Blood Pressure 127/85 Blood Pressure [Ri ght Upper Arm] Pulse Oximetry 94 94 Oxygen Delivery Me thod Oxygen Flow Rate Hospitalist - H&P: Result Labs Labs: Short CBC 02/05/23 Range/Units 18:35 WBC 13.52 H (4.50-11.00) K/uL Hgb 17.2 (13.5-17.5) gm/dL Hct 53.0 (37.0-53.0) % Plt Count 247 (140-440) K/uL BMP 02/05/23 18:35 Sodium 138 Potassium 4.0 Chloride 106 Carbon Dioxide 26 BUN 11 Creatinine 0.7 Glucose 98 Calcium 8.7 Urine 02/05/23 Range/Units 19:20 Urine Color Yellow (Yellow) Urine Appearance Clear (Clear) Urine pH 5.5 (5.0-8.5) Ur Specific [place] 1.025 (1.000-1.030) Urine Protein 1+ A (Negative) Urine Glucose (UA) Negative (Negative) Assessment and Plan Assessment and plan (1) Sepsis: Problem comment: - As evidenced by + UTI, leukocytosis, hypoxia, and tachycardia - continue IV fluids, broaden UTI coverage to Zosyn (02/05) Status: Acute (2) Urinary tract infection: Problem comment: - culture pending Status: Acute (3) Neurogenic bladder: Problem comment: - continue straight catheterizations Status: Acute (4) Multiple sclerosis: Problem comment: - nonambulatory, on Baclofen for symptoms Status: Acute Plan - antibiotics per above - await culture results - IVF resuscitation, follow VS closely - Coumadin for ppx - Full Code status requested - updated at bedside, questions answered
[2023-02-05] MEDS: 0.9 % SODIUM CHLORIDE 1000 ml 1,000 ML 500 ML IV (22:36)
[2023-02-05] MEDS: 0.9 % SODIUM CHLORIDE 1000 ml 1,000 ML 150 ML IV (23:25)
[2023-02-05] MEDS: PIPERACILLIN/TAZOBACTAM 3.375 GM in 0.9 % SODIUM CHLORIDE Mini-bag 100 ML IVPB (23:25)
[2023-02-05] MEDS: ATORVASTATIN 10 MG TABLET 20 MG PO (23:25)
[2023-02-06] VITALS (10 sets, daily range): BP systolic 97–141; BP diastolic 70–93; PULSE 83–114; RESP 16–28; TEMP 36.6–37.4; O2SAT 91–94
[2023-02-06] MEDS: PIPERACILLIN/TAZOBACTAM 3.375 GM in 0.9 % SODIUM CHLORIDE Mini-bag 100 ML IVPB ×4 (04:43→22:43)
[2023-02-06] MEDS: ACETAMINOPHEN 325 MG TABLET 975 MG PO (05:43)
[2023-02-06] MEDS: MORPHINE 4 MG/ML INJ IVP (05:43)
[2023-02-06] MEDS: SODIUM CHLORIDE 0.9 % (FLUSH) 10 ML SYRINGE 5 ML IVF ×2 (05:43→22:43)
--- NOTE | 2023-02-06 06:46 | PC.NURSE ---
pleasant and cooperative. Ceiling lift, T&R. Right extremity tremor noted with repos, no tremor at rest. 1x bladder scan ? 169mL.?1x large wet brief, post void bladder scan 179mL. stated that they use 12F straight caths at home when needed. No BM since 02/03, senna to begin at 0900. ? Tele ? Sinus Tach, HR 110-121. Tachypneic RR22-28. Titrated pt to 1L O2 NC.?Highest Temp 99.2, PRN Tylenol given. Pt c/o feeling miserable, PRN 2mg morphine given. ?
[2023-02-06 07:11] LABS: Lactate* 1.2 mmol/L (0.5-1.9)
[2023-02-06 07:19] LABS: Basophils Percent Auto 0.1 % (0.0-3.0); Eosinophils Percent Auto 0.1 % (0.0-7.0); Hematocrit 49.9 % (37.0-53.0); Hemoglobin* 16.1 gm/dL (13.5-17.5); Immature Granulocytes Pct Auto 0.3 %; Lymphocytes Percent Auto 3.6 % (20-44); Mean Corpuscular HGB Conc 32 gm/dL (32-36); Mean Corpuscular Hemoglobin 30 pg (26-34); Mean Corpuscular Volume 92 fL (80-100); Monocytes Percent Auto 5.3 % (0.0-11.0); Neutrophils Percent Auto 90.6 % (42.0-72.0); Platelet Count* 216 K/uL (140-440); RDW Coefficient of Variation % 14.9 % (11.5-15.5); Red Blood Count 5.42 m/uL (4.30-5.90); White Blood Count* 12.06 K/uL (4.50-11.00)
[2023-02-06 07:21] LABS: Slide Review Reflex No
[2023-02-06 07:42] LABS: Chloride* 108 mmol/L (96-114); Potassium* 4.5 mmol/L (3.6-5.1); Sodium* 137 mmol/L (135-149)
[2023-02-06 07:45] LABS: Blood Urea Nitrogen* 10 mg/dL (7-30); Carbon Dioxide* 21 mmol/L (20-32); Creatinine* 0.7 mg/dL (0.5-1.5); Est. Creatinine Clearance* 77.06; Estimated Glomerular Filt Rate 103 ml/min; Glucose* 108 mg/dL (60-115)
[2023-02-06 07:46] LABS: Calcium* 7.8 mg/dL (8.4-10.6); Magnesium* 1.7 mg/dL (1.5-2.6)
[2023-02-06] MEDS: 0.9 % SODIUM CHLORIDE 1000 ml 1,000 ML 150 ML IV (07:49)
[2023-02-06 08:16] LABS: INR 2.31 (0.91-1.10); Prothrombin Time 26.5 Seconds
[2023-02-06] MEDS: BACLOFEN 10 MG TABLET PO ×2 (09:59→20:36)
[2023-02-06] MEDS: SENNOSIDES 1 TAB TABLET PO (10:00)
[2023-02-06] MEDS: oxyBUTYnin chloride 5 MG TABLET PO ×2 (10:00→20:36)
--- NOTE | 2023-02-06 10:27 | CRLHL7_ITS ---
For Patients: As a result of the Century Cures Act, medical imaging exams and procedure reports are released immediately into your electronic medical record. You may view this report before your referring provider. If you have questions, please contact your health care provider. Indication: UTI, evaluate for bladder and kidney stones Technique: Volumetric multidetector CT images of the abdomen and pelvis were without the administration of intravenous contrast. Comparison: CT abdomen and pelvis November 14, 2021 Findings: There is bibasilar atelectasis and parenchymal scar with central bronchial thickening. The liver is normal in attenuation without intrahepatic biliary ductal dilatation. The gallbladder is unremarkable without evidence of radiopaque calculus. There is no significant common biliary ductal dilatation or abrupt cut off. The spleen is normal in attenuation and size. The stomach and duodenum are grossly unremarkable. There is mild pancreatic atrophy. The adrenal glands are unremarkable. There are cystic changes of the kidneys with nonspecific perinephric stranding. There is demonstration of a calculus in the vicinity of the right ureteral vesicular junction measuring 4 millimeters on series 2, image 133 without significant right-sided hydronephrosis or hydroureter. There are additional calculi within the bladder. There is demonstration of mild pelviectasis with a 1.3 centimeter calculus just before the ureteropelvic junction. There is moderate stool seen throughout the colon with minimal distal colonic diverticulosis. There is no evidence of diverticulitis. The appendix is unremarkable. There is no significant mesenteric, retroperitoneal, or pelvic sidewall lymph nodes. The aorta is nonaneurysmal. There is no significant atherosclerotic disease appreciated. There is demonstration of marked thickening of the bladder wall with minimal pericystic inflammatory changes. There is no free fluid or free air. The anterior abdominal wall is intact without significant hernias. The lumbar vertebral body heights are grossly maintained with minimal endplate Schmorl`s defects. There is mild straightening of the normal lumbar lordosis without evidence of significant spondylolisthesis. Impression: Demonstration of a 1.3 centimeter calculus within the right renal pelvis with mild pelviectasis. There is an additional calculus near the vicinity of the right ureterovesicular junction measuring 4 millimeters. There is no other significant hydronephrosis or hydroureter. Nonspecific thickening of the bladder and pericystic inflammatory changes are appreciated which may represent sequela of cystitis. Please note that all CT scans at this facility use dose modulation, iterative reconstruction, and/or weight-based dosing when appropriate to reduce radiation dose to as low as reasonably achievable. Dictated by Abdoulaye Chan MD @ 02/06/2023 11:41:18 AM (Electronically Signed)
--- NOTE | 2023-02-06 10:47 | P.IMPN_ITS ---
Progress Note: A&P Assessment and plan (1) Sepsis: Problem details: - As evidenced by + UTI, leukocytosis, hypoxia, and tachycardia - on Zosyn (02/05), blood and urine cultures NGTD - TTE ordered 02/06 Status: Acute (2) Urinary tract infection: Problem details: - culture pending - no hydronephrosis on CT ab/pelvis 02/06 Status: Acute (3) Neurogenic bladder: Problem details: - continue straight catheterizations Status: Acute (4) Elevated bilirubin: Problem details: - unclear source, no history of this and asymptomatic - RUQ ultrasound Status: Acute (5) Multiple sclerosis: Problem details: - nonambulatory, on Baclofen for symptoms Status: Acute (6) Left arm swelling: Problem details: - ddx: atypical DVT (unlikely given therapeutic INR), muscle spasm, positional - OT referral, CXR, continue to monitor Status: Acute Plan - continue IV abx - followup results from TTE and CXR - Coumadin for ppx - updated at bedside, questions answered Subjective Date Seen: 02/06/23 Interval history: No acute events overnight, Tmax 99.3 Transitioned off of supplemental oxygen to RA. BP stable, HR 100-110. Blood and urine cultures currently NGTD. has noted mild scleral icterus today. Patient has no concerns for hospitalist team this morning, specifically denies itching. Exam Narrative: Exam Narrative: GEN: Alert HEENT: EOMIs bilaterally, mild scleral icterus noted CV: Sinus tachycardia with heart rate 100 during my exam R: LCTA bilaterally without concerning wheezing, air movement adequate Abdomen: Soft, nontender, no masses Ext: There is nonpitting edema and firmness in LUE near deltoid, one specific area that is ttp, full ROM at L shoulder and L elbow Skin: Scattered discreet small skin lesions with eschar noted BLE (unchanged from admission), no evidence of cellulitis, no drainage Psych: Appropriate Const: Vital Signs, click to edit/add: Vital Signs - 24 hr 02/05/23 18:18 02/05/23 18:21 02/05/23 19:00 Temperature 99 F 99.3 F Pulse Rate Pulse Rate [Pulse Oximeter] 128 H 122 H Respiratory Rate 20 16 Blood Pressure Blood Pressure [Ri ght Arm] Blood Pressure [Ri ght Upper Arm] 149/104 H Pulse Oximetry 89 94 94 Oxygen Delivery Me thod Room Air Nasal Cannula Nasal Cannula Oxygen Flow Rate 3 3 02/05/23 19:39 02/05/23 19:45 02/05/23 19:46 Temperature Pulse Rate 120 H 118 H 118 H Pulse Rate [Pulse Oximeter] Respiratory Rate Blood Pressure 144/93 H Blood Pressure [Ri ght Arm] Blood Pressure [Ri ght Upper Arm] Pulse Oximetry 95 95 95 Oxygen Delivery Me thod Nasal Cannula Oxygen Flow Rate 3 02/05/23 20:00 02/05/23 20:02 02/05/23 20:15 Temperature Pulse Rate 117 H 118 H 116 H Pulse Rate [Pulse Oximeter] Respiratory Rate Blood Pressure 144/91 H Blood Pressure [Ri ght Arm] Blood Pressure [Ri ght Upper Arm] Pulse Oximetry 95 97 95 Oxygen Delivery Me thod Oxygen Flow Rate 02/05/23 20:17 02/05/23 20:18 02/05/23 20:30 Temperature Pulse Rate 115 H 116 H 116 H Pulse Rate [Pulse Oximeter] Respiratory Rate Blood Pressure 133/91 H Blood Pressure [Ri ght Arm] Blood Pressure [Ri ght Upper Arm] Pulse Oximetry 94 95 94 Oxygen Delivery Me thod Oxygen Flow Rate 02/05/23 20:32 02/05/23 20:42 02/05/23 20:45 Temperature Pulse Rate 116 H 113 H 103 H Pulse Rate [Pulse Oximeter] Respiratory Rate Blood Pressure 132/86 124/91 H Blood Pressure [Ri ght Arm] Blood Pressure [Ri ght Upper Arm] Pulse Oximetry 94 95 94 Oxygen Delivery Me thod Oxygen Flow Rate 02/05/23 20:47 02/05/23 20:48 02/05/23 21:24 Temperature 98.4 F Pulse Rate 109 H 115 H Pulse Rate [Pulse Oximeter] 111 H Respiratory Rate 20 Blood Pressure 127/85 Blood Pressure [Ri ght Arm] 118/88 Blood Pressure [Ri ght Upper Arm] Pulse Oximetry 94 94 94 Oxygen Delivery Me thod Nasal Cannula Oxygen Flow Rate 2 02/05/23 21:24 02/05/23 21:51 02/05/23 23:00 Temperature Pulse Rate 104 H Pulse Rate [Pulse Oximeter] 110 H Respiratory Rate 20 20 Blood Pressure Blood Pressure [Ri ght Arm] Blood Pressure [Ri ght Upper Arm] Pulse Oximetry 93 Oxygen Delivery Me thod Nasal Cannula Oxygen Flow Rate 2 02/05/23 23:00 02/05/23 23:00 02/06/23 03:00 Temperature 98.1 F 99.2 F Pulse Rate Pulse Rate [Pulse Oximeter] 110 H 113 H Respiratory Rate 20 20 28 H Blood Pressure Blood Pressure [Ri ght Arm] 111/91 H 141/93 H Blood Pressure [Ri ght Upper Arm] Pulse Oximetry 93 93 94 Oxygen Delivery Me thod Nasal Cannula Nasal Cannula Nasal Cannula Oxygen Flow Rate 2 2 1 02/06/23 05:43 02/06/23 06:32 02/06/23 06:45 Temperature 99.2 F 98.3 F 98.3 F Pulse Rate Pulse Rate [Pulse Oximeter] 114 H Respiratory Rate 28 H Blood Pressure Blood Pressure [Ri ght Arm] 125/82 Blood Pressure [Ri ght Upper Arm] Pulse Oximetry 91 Oxygen Delivery Me thod Nasal Cannula Oxygen Flow Rate 1 02/06/23 07:00 02/06/23 07:00 Temperature 99.3 F Pulse Rate Pulse Rate [Pulse Oximeter] 106 H Respiratory Rate 18 18 Blood Pressure Blood Pressure [Ri ght Arm] 101/70 Blood Pressure [Ri ght Upper Arm] Pulse Oximetry 92 92 Oxygen Delivery Me thod Room Air Room Air Oxygen Flow Rate Labs Labs: Laboratory Results - last 24 hr 02/05/23 02/05/23 02/06/23 18:35 19:20 06:00 WBC 13.52 H 12.06 H RBC 5.81 5.42 Hgb 17.2 16.1 Hct 53.0 49.9 MCV 91 92 MCH 30 30 MCHC 33 32 RDW Coeff of Nas 14.9 14.9 Plt Count 247 216 Neut % (Auto) 87.9 H 90.6 H Lymph % (Auto) 5.0 L 3.6 L [place] % (Auto) 6.8 5.3 Eos % (Auto) 0.1 0.1 Baso % (Auto) 0.1 0.1 Neut # (Auto) 11.90 H 10.90 H Lymph # (Auto) 0.70 L 0.40 L [place] # (Auto) 0.90 0.60 Eos # (Auto) 0.00 0.00 Baso # (Auto) 0.00 0.00 INR 2.31 H Sodium 138 137 Potassium 4.0 4.5 Chloride 106 108 Carbon Dioxide 26 21 BUN 11 10 Creatinine 0.7 0.7 Estimated Creat Clear 77.06 Estimated GFR 103 103 Glucose 98 108 Lactate 1.6 1.2 Calcium 8.7 7.8 L Magnesium 1.7 Urine Color Yellow Urine Appearance Clear Urine pH 5.5 Ur Specific [place] 1.025 Urine Protein 1+ A Urine Glucose (UA) Negative Urine Ketones Negative Urine Blood 2+ A Urine Nitrite Positive A Urine Bilirubin Negative Urine Urobilinogen 0.2 Ur Leukocyte Esterase 1+ A Urine RBC 10-25 A Urine WBC 5-10 A Ur Squamous Epith Cells None Urine Bacteria Many A
[2023-02-06 11:02] LABS: Albumin* 3.7 g/dL (3.3-5.0)
[2023-02-06 11:04] LABS: Bilirubin Direct* 0.8 mg/dL (0.0-0.5); Bilirubin Total* 2.4 mg/dL (0.1-1.5)
[2023-02-06 11:05] LABS: Alanine Aminotransferase* 19 U/L (4-50); Alkaline Phosphatase* 91 U/L (40-150); Aspartate Amino Transferase* 27 U/L (12-35); Total Protein* 7.3 g/dL (6.0-8.3)
--- NOTE | 2023-02-06 12:48 | CRLHL7_ITS ---
For Patients: As a result of the Cures Act, medical imaging exams and procedure reports are released immediately into your electronic medical record. You may view this report before your referring provider. If you have questions, please contact your health care provider. INDICATION: TACHYCARDIA / HYPOXIA TECHNIQUE: Chest 1 view COMPARISON: 10/15/2022 FINDINGS: Fullness of the central pulmonary vasculature is again noted. Mild prominence of the interstitial markings in the lower lung zones. No pleural effusion or pneumothorax. Cardiac silhouette is upper limits of normal. Similar appearance of the pulmonary arteries. IMPRESSION: Mild fluid overload suspected. There may be an underlying component of bronchiolitis. No dense infiltrate. Dictated by Osito Apodaca MD @ 02/06/2023 4:07:00 PM (Electronically Signed)
--- NOTE | 2023-02-06 15:30 | CRLHL7_ITS ---
For Patients: As a result of the Century Cures Act, medical imaging exams and procedure reports are released immediately into your electronic medical record. You may view this report before your referring provider. If you have questions, please contact your health care provider. INDICATION: Elevated bilirubin. COMPARISON: CT of the abdomen and pelvis 02/06/2023. TECHNIQUE: Real time meza scale imaging and color Doppler analysis was performed of the right upper quadrant. FINDINGS: Liver: Portions of the liver were suboptimally visualized. The liver measures approximately 16 cm in length. Normal echogenicity. No focal liver lesions identified. Gallbladder: No stones or sludge. No wall thickening or pericholecystic fluid. Negative sonographic Brito sign. Bile ducts: The common bile duct was not well seen. Pancreas: Not well seen. Right kidney: The right kidney measures 10.7 cm in length. No hydronephrosis, calculus, or mass. There is a 3.0 cm anechoic cyst in the lateral right kidney. IMPRESSION: 1. Suboptimal visualization of the liver, pancreas, and common bile duct. 2. Unremarkable sonographic appearance of the gallbladder. 3. Simple right renal cyst. Dictated by Georgie Goldberg MD @ 02/06/2023 4:42:42 PM (Electronically Signed)
[2023-02-06] MEDS: WARFARIN 2 MG TABLET PO (17:46)
--- NOTE | 2023-02-06 18:36 | PC.NURSE ---
shift note: pt up in recliner for meals by ceiling lift. No BM. vss stable. pt had slight temp 99.3 this a.m. LS clr. tele in place 90's-110's SR. Pt states this afternoon he has lt upper arm tenderness with palpation. Lt upper arm sl swollen and warm. IV x2 patent. pt cath x3 with minimal returns. pt had 2 lg incont voids.
[2023-02-06] MEDS: ATORVASTATIN 10 MG TABLET 20 MG PO (20:36)
[2023-02-07 03:20] VITALS: BP 116/78; PULSE 100; RESP 18; TEMP 36.8; O2SAT 95
[2023-02-07] MEDS: PIPERACILLIN/TAZOBACTAM 3.375 GM in 0.9 % SODIUM CHLORIDE Mini-bag 100 ML IVPB ×2 (04:40→13:32)
[2023-02-07 06:13] LABS: Lactate* 0.5 mmol/L (0.5-1.9)
--- NOTE | 2023-02-07 06:13 | PC.NURSE ---
Pt alert and oriented x3 but forgetful at times, some repetitive statements. Afebrile. Pt denies pain, SOB, chest pain, and N/V. Pt was straight cathed x3 overnight with a total of 400 output. Pt is up with ceiling lift, tolerating regular diet with assistance feeding. Pt slept throughout most of night.?
[2023-02-07 06:18] LABS: Basophils Absolute Auto 0.01 K/uL (0.00-0.30); Basophils Percent Auto 0.1 % (0.0-3.0); Eosinophils Absolute Auto 0.04 K/uL (0.00-0.50); Eosinophils Percent Auto 0.5 % (0.0-7.0); Hematocrit 43.4 % (37.0-53.0); Hemoglobin* 14.3 gm/dL (13.5-17.5); Immature Granulocytes Abs Auto 0.08 K/uL (0.00-0.30); Immature Granulocytes Pct Auto 0.9 %; Lymphocytes Percent Auto 12.3 % (20-44); Mean Corpuscular HGB Conc 33 gm/dL (32-36); Mean Corpuscular Hemoglobin 30 pg (26-34); Mean Corpuscular Volume 92 fL (80-100); Neutrophils Percent Auto 75.2 % (42.0-72.0); Platelet Count* 215 K/uL (140-440); RDW Coefficient of Variation % 14.7 % (11.5-15.5); Red Blood Count 4.74 m/uL (4.30-5.90); White Blood Count* 8.45 K/uL (4.50-11.00)
[2023-02-07 06:23] LABS: Slide Review Reflex No
[2023-02-07 06:30] LABS: Albumin* 3.2 g/dL (3.3-5.0); Chloride* 108 mmol/L (96-114); Sodium* 137 mmol/L (135-149)
[2023-02-07 06:31] LABS: Potassium* 3.6 mmol/L (3.6-5.1)
[2023-02-07 06:32] LABS: INR 1.85 (0.91-1.10); Prothrombin Time 22.3 Seconds
[2023-02-07 06:33] LABS: Alanine Aminotransferase* 23 U/L (4-50); Alkaline Phosphatase* 82 U/L (40-150); Aspartate Amino Transferase* 21 U/L (12-35); Bilirubin Direct* 0.3 mg/dL (0.0-0.5); Bilirubin Total* 1.3 mg/dL (0.1-1.5); Blood Urea Nitrogen* 11 mg/dL (7-30); Calcium* 7.9 mg/dL (8.4-10.6); Carbon Dioxide* 24 mmol/L (20-32); Creatinine* 0.7 mg/dL (0.5-1.5); Est. Creatinine Clearance* 77.06; Estimated Glomerular Filt Rate 103 ml/min; Glucose* 102 mg/dL (60-115); Total Protein* 6.4 g/dL (6.0-8.3)
[2023-02-07 07:00] VITALS: BP 113/80; PULSE 98; RESP 20; TEMP 37; O2SAT 92
[2023-02-07] MEDS: oxyBUTYnin chloride 5 MG TABLET PO (09:34)
[2023-02-07] MEDS: SODIUM CHLORIDE 0.9 % (FLUSH) 10 ML SYRINGE 5 ML IVF (09:35)
[2023-02-07] MEDS: SENNOSIDES 1 TAB TABLET PO (09:35)
--- NOTE | 2023-02-07 09:35 | P.DS_ITS ---
DS: Providers Provider Date Seen: 02/07/23 Date of admission: 02/05/23 21:51 Primary care physician: Hang Carpenter MD Admitting Clinician: Aisha Merrill MD Consults: OT Attending Physician on discharge: Aisha Merrill MD Date of Discharge: 02/07/23 DS: Diagnosis Discharge Diagnosis (1) Sepsis: Status: Acute Problem details: - As evidenced by + UTI, leukocytosis, hypoxia, and tachycardia - Zosyn initiated 02/05, urine culture + for Klebsiella, Blood cx NGTD - TTE 02/06: Final Impressions: 1. Normal LV size, normal wall thickness, normal global systolic function with an estimated EF of 65 - 70%. 2. Right ventricular cavity size is normal, global systolic RV function is norm al. 3. No significant functional valve disease detected. (2) Urinary tract infection: Status: Acute Problem details: - Klebsiella (3) Nephrolithiasis: Status: Acute Problem details: - nonobstructive (see CT results below) - reviewed by phone with Urology on 02/07; outpatient follow-up in 1-2 weeks recommended, sooner with any concerning symptoms. Patient and aware Impression: Demonstration of a 1.3 centimeter calculus within the right renal pelvis with mild pelviectasis. There is an additional calculus near the vicinity of the right ureterovesicular junction measuring 4 millimeters. There is no other significant hydronephrosis or hydroureter. Nonspecific thickening of the bladder and pericystic inflammatory changes are appreciated which may represent sequela of cystitis. Please note that all CT scans at this facility use dose modulation, iterative reconstruction, and/or weight-based dosing when appropriate to reduce radiation dose to as low as reasonably achievable. Dictated by Abdoulaye Chan MD @ 02/06/2023 11:41:18 AM (4) Neurogenic bladder: Status: Acute Problem details: - continue straight catheterizations (5) Elevated bilirubin: Status: Acute Problem details: - spontaneously resolved, no acute findings on CT A/P and RUQ ultrasound - patient remained asymptomatic (6) Multiple sclerosis: Status: Acute Problem details: - nonambulatory, on Baclofen for symptoms (7) Left arm swelling: Status: Acute Problem details: - ddx: atypical DVT (unlikely given therapeutic INR), muscle spasm, positional - OT followed during stay, no concerning findings on CXR - routine outpatient f/u DS: Summary Hospital Course Hospital Course: Dhruv is a very pleasant 62-year-old male with a history of multiple sclerosis and neurogenic bladder requiring straight catheterization, admitted 02/05 for illness and presumed UTI. On admission, patient was hypoxic and tachycardic with leukocytosis. He remained afebrile during stay and was treated with Zosyn. White blood count and inflammatory markers improved, as did heart rate. Hypoxia resolved on hospital Day 1 and patient remained stable on room air. Urine culture positive for Klebsiella, blood cultures negative. He will be discharged home on Ciprofloxacin based on sensitivities. Other notable findings during stay (elevated bilirubin, left upper extremity edema, nephrolithasis) with details above. Patient improved and medically appropriate for discharge with oral antibiotics and close PCP f/u, will see Urology in 1-2 weeks. Status at Discharge Functional status at discharge: wheelchair bound Overall status at discharge: patient is progressing back to baseline Time Spent with Patient Time attestation: Total time spent providing and/or coordinating discharge services: Time spent: Greater than 30 minutes Specific discharge activities: Medication reconciliation, care coordination with multidisciplinary team Exam Narrative: Exam Narrative: GEN: Alert and nontoxic, sitting up in bed and answering questions appropriately HEENT: EOMIs bilaterally, no scleral icterus CV: RRR, No concerning murmurs, rubs, or gallops R: LCTA bilaterally without concerning wheezing, air movement adequate Abdomen: Soft and nontender Ext: No concerning edema Neuro: Limited range of motion of left upper extremity and bilateral lower extremities per baseline, no acute focal deficits Psych: Appropriate Const: Vital Signs, click to edit/add: Vital Signs - 24 hr 02/06/23 11:00 02/06/23 15:00 02/06/23 15:00 Temperature 97.9 F 98.1 F Pulse Rate Pulse Rate [Pulse Oximeter] 102 H 83 Respiratory Rate 18 18 18 Blood Pressure [Ri ght Arm] 97/78 132/78 Pulse Oximetry 94 93 93 Oxygen Delivery Me thod Room Air Room Air Room Air Oxygen Flow Rate 02/06/23 20:25 02/06/23 23:00 02/06/23 23:00 Temperature 98.3 F Pulse Rate Pulse Rate [Pulse Oximeter] 100 100 Respiratory Rate 18 16 16 Blood Pressure [Ri ght Arm] 132/84 Pulse Oximetry 92 93 Oxygen Delivery Me thod Room Air Room Air Oxygen Flow Rate 02/06/23 23:00 02/06/23 23:12 02/06/23 23:12 Temperature 98.3 F Pulse Rate 100 100 Pulse Rate [Pulse Oximeter] 100 Respiratory Rate 16 [facility] 132/84 Pulse Oximetry 92 Oxygen Delivery Me thod Room Air Oxygen Flow Rate 02/07/23 03:20 02/07/23 07:00 02/07/23 07:00 Temperature 98.3 F 98.6 F Pulse Rate Pulse Rate [Pulse Oximeter] 100 98 Respiratory Rate 18 20 Blood Pressure [facility]] 116/78 113/80 Pulse Oximetry 95 92 92 Oxygen Delivery Me thod Nasal Cannula Room Air Room Air Oxygen Flow Rate 1 DS: Data Data Completed and Pending Labs on day of discharge: Labs from last 24 hours 02/07/23 02/06/23 05:49 06:00 WBC 8.45 RBC 4.74 Hgb 14.3 Hct 43.4 MCV 92 MCH 30 MCHC 33 RDW Coeff of Nas 14.7 Plt Count 215 Neut % (Auto) 75.2 H Lymph % (Auto) 12.3 L [place] % (Auto) 11.0 Eos % (Auto) 0.5 Baso % (Auto) 0.1 Neut # (Auto) 6.40 Lymph # (Auto) 1.00 [place] # (Auto) 0.90 Eos # (Auto) 0.04 Baso # (Auto) 0.01 INR 1.85 H Sodium 137 Potassium 3.6 Chloride 108 Carbon Dioxide 24 BUN 11 Creatinine 0.7 Estimated Creat Clear 77.06 Estimated GFR 103 Glucose 102 Lactate 0.5 Calcium 7.9 L Total Bilirubin 1.3 2.4 H Direct Bilirubin 0.3 0.8 H AST 21 27 ALT 23 19 Alkaline Phosphatase 82 91 Total Protein 6.4 7.3 Albumin 3.2 L 3.7 Preliminary micro results at discharge 02/05/23 18:50 Blood Culture - Preliminary Blood NO GROWTH AFTER 24 HOURS 02/05/23 18:35 Blood Culture - Preliminary Blood NO GROWTH AFTER 24 HOURS Discharge Plan Discharge Disposition: Home, Self-Care Date of Admission: 02/05/23 21:51 Attending Provider on Discharge: Aisha Merrill Primary Care Provider: Hang Carpenter Condition: Improved Anticipated Discharge Date/Time: 02/07/23 13:00 Discharge Medications: New ciprofloxacin HCl 500 mg tablet 500 mg PO BID 7 Days Qty: 14 0RF Continued atorvastatin 20 mg tablet 20 mg PO QHS warfarin 2 mg tablet 2 mg PO 3XW Rx Instructions: E, ALFONSO, SAT warfarin 4 mg tablet 4 mg PO 4XW Rx Instructions: SUN, MON, WED, SUN senna 8.6 mg capsule 8.6 mg PO DAILY olopatadine [Eye Allergy Itch Relief] 0.2 % drops 2 drp ophthalmic (eye) DAILY PRN oxybutynin chloride 5 mg tablet 5 mg PO BID baclofen 10 mg tablet 10 mg PO 3XD Discharge Orders: Discharge Order (Routine); Ordered 02/07/23 Ordered By: Aisha Merrill Patient Education: Ciprofloxacin (By mouth), Urinary Tract Infection in Men (DC) Additional Instructions: Antibiotics sent to pharmacy - take twice/day with food. See Dr. Mauricio Sunday or Sunday (as scheduled) with an INR. You should still see the Urologist in followup. Activity Level: Activity as Tolerated Activity Detail: Continue wearing [employer] on left upper arm Discharge Diet: Regular Follow Up Appointments: Hang Carpenter MD [Primary Care Provider] - 02/12/23 2:30 pm (at [facility] in [place] on 02/09 or 02/12 with INR) Forms: [employer] Info Instructions
[2023-02-07] MEDS: BACLOFEN 10 MG TABLET PO (09:36)
[2023-02-07 10:20] VITALS: PULSE 100
[2023-02-07 10:37] VITALS: BP 127/85; PULSE 100; RESP 20; TEMP 37
[2023-02-07 11:45] VITALS: BP 113/74; PULSE 97; RESP 18; TEMP 36.6; O2SAT 92
--- NOTE | 2023-02-07 14:52 | PC.NURSE ---
Straight cath at 1140 for 500 cc, str. cath with #12 georgian for 250 cc at 1440. No dysphagia with meds. Up in recliner. Pt and verbalized understanding of d/c diagnosis, home meds, new prescription for Ciprofloxacin, sx of UTI, f/up appt and sx to report urgently to physician. Awaiting availability of their van from the repair shop for d/c transportation. will assist with dressing patient once he is back in bed per ceiling lift. Tele discontinued. Two IV sites remain in right hand and left hand. Report will be provided to oncoming shift.
[2023-02-07 16:00] VITALS: PULSE 84; RESP 18; TEMP 36.9; O2SAT 92; O2SAT 93
--- NOTE | 2023-02-07 16:13 | PC.NURSE ---
TELEMETRY on day shift Sinus tachycardia.
== END 2023-02-07 16:15 | disposition home or self-care (01) | DRG 872 ==
LOC: ED 20:20 → MEDSURG 20:59
PROVIDERS: Admitting Provider Family Medicine; Emergency Provider Emergency Medicine Emergency Medical Services; PCP Family Medicine; Visit Provider Family Medicine
DX: A41.9 Sepsis, unspecified organism (principal); N39.0 Urinary tract infection, site not specified; B96.1 Klebsiella pneumoniae [K. pneumoniae] as the cause of diseases classified elsewhere; Z87.440 Personal history of urinary (tract) infections; N31.9 Neuromuscular dysfunction of bladder, unspecified; G35 Multiple sclerosis; R09.02 Hypoxemia; R22.32 Localized swelling, mass and lump, left upper limb; N20.0 Calculus of kidney; E78.5 Hyperlipidemia, unspecified; Z86.718 Personal history of other venous thrombosis and embolism; Z86.711 Personal history of pulmonary embolism; Z79.01 Long term (current) use of anticoagulants
CPT/HCPCS: 36415; 51702; 51798; 71045; 74176; 76705; 80048; 80076; 81001; 83605; 83735; 85025; 85610; 87040; 87086; 87186; 93306; 97165; 97530; 97535; 99284; 99285; A9270; J0696; J2270; J2543; J7030

== ENCOUNTER 2023-02-07 16:06 | Outpatient (CLI) | payer MEDICARE, BC, SELFPAY | END 2023-02-07 16:07 | disposition home or self-care (01) | PROVIDERS: PCP Family Medicine; Visit Provider Family Medicine | DX: Z99.3 Dependence on wheelchair (principal) | CPT/HCPCS: A0425; A0428 ==

== ENCOUNTER 2023-08-21 09:43 | Outpatient (CLI) | payer MEDICARE, BC, SELFPAY ==
--- NOTE | 2023-08-21 09:45 | CRLHL7_ITS ---
For Patients: As a result of the Century Cures Act, medical imaging exams and procedure reports are released immediately into your electronic medical record. You may view this report before your referring provider. If you have questions, please contact your health care provider. CLINICAL HISTORY: Right renal cyst COMPARISON: CT 02/06/2023 TECHNIQUE: Pina scale and color Doppler images were acquired of the kidneys and urinary bladder. FINDINGS: Simple cyst right kidney measures 2.3 x 2.0 x 3.4 cm. Additional simple right renal cyst measures 2.2 x 2.1 x 2.3 cm. The right kidney measures 10.6cm in length and the left kidney measures 11.8cm in length. The renal cortex appears of normal thickness. Layering stone within the bladder measures 1.1 cm. Color Doppler images reveal a normal appearance of both ureteral jets. IMPRESSION: Simple right renal cysts. No suspicious renal mass. 1.1 cm bladder stone. The known stone in the right renal pelvis is not appreciated on ultrasound. Dictated by Osito Apodaca MD @ 08/21/2023 11:13:42 AM (Electronically Signed)
--- NOTE | 2023-08-21 10:30 | CRLHL7_ITS ---
For Patients: As a result of the Century Cures Act, medical imaging exams and procedure reports are released immediately into your electronic medical record. You may view this report before your referring provider. If you have questions, please contact your health care provider. Indication: KIDNEY STONE, CYST Technique: Noncontrast CT abdomen and pelvis Please note that all CT scans at this facility use dose modulation, iterative reconstruction, and/or weight-based dosing when appropriate to reduce radiation dose to as low as reasonably achievable. Comparison: 02/06/2023 Findings: Dependent areas of atelectasis/scarring noted in the lung bases. No free intraperitoneal air. The noncontrast enhanced liver is normal. Normal gallbladder. No gallstones. Pancreatic atrophy. Calcified splenic granuloma. Adrenal glands are normal. Left kidney unremarkable. Simple exophytic right renal cysts. Ovoid stone in the right renal pelvis measuring 1.6 cm. There are 2 stones within the left posterior lateral bladder measuring up to 5 millimeters. The bladder wall is somewhat prominent. No hydroureter. Stable calcification associated with the anterior bladder wall. Increased stool is present within the distal colon. Appendix is normal. No bowel obstruction. No inflammatory changes regarding the bowel. No adenopathy. Vascular calcifications. Degenerative changes. No acute fracture. Impression: Chronic lobular/ovoid stone in the right renal pelvis measuring 1.6 cm with right renal pelviectasis, similar to the prior examination. Two stones are now present within the left posterior lateral bladder. No hydroureter. Chronic constipation with chronic atrophy of the sigmoid mucosa. Simple exophytic right renal cysts. Please note that all CT scans at this facility use dose modulation, iterative reconstruction, and/or weight-based dosing when appropriate to reduce radiation dose to as low as reasonably achievable. Dictated by Osito Apodaca MD @ 08/22/2023 11:39:25 AM (Electronically Signed)
== END 2023-08-21 09:44 | disposition home or self-care (01) ==
PROVIDERS: PCP Family Medicine; Visit Provider Urology
DX: N20.0 Calculus of kidney; N21.0 Calculus in bladder
CPT/HCPCS: 74176; 76775

== ENCOUNTER 2023-09-26 12:32 | Outpatient (CLI) | payer MEDICARE, BC, SELFPAY ==
--- NOTE | 2023-09-26 13:00 | CRLHL7_ITS ---
For Patients: As a result of the Century Cures Act, medical imaging exams and procedure reports are released immediately into your electronic medical record. You may view this report before your referring provider. If you have questions, please contact your health care provider. Indication: SCALP LUMP Technique: Skull four views IMPRESSION: There is a osseous protuberance arising from the frontal bone in the midline measuring 2.4 cm in AP dimension and 5 millimeters in craniocaudad dimension. Overlying soft tissue swelling is present. No associated cortical lucency. No fracture. Sinuses clear. Normal mastoid air cells and sella turcica. Findings could represent benign osteoma although intraosseous meningioma not excluded. CT head recommended for further evaluation. Dictated by Osito Apodaca MD @ 09/27/2023 9:40:44 AM (Electronically Signed)
== END 2023-09-26 12:33 | disposition home or self-care (01) ==
PROVIDERS: PCP Family Medicine; Visit Provider Family Medicine
DX: R22.0 Localized swelling, mass and lump, head (principal)
CPT/HCPCS: 70250

== ENCOUNTER 2023-10-28 11:47 | Inpatient (IN) | payer MEDICARE, BC, SELFPAY ==
[2023-10-28] VITALS (31 sets, daily range): BP systolic 87–148; BP diastolic 61–99; PULSE 92–133; RESP 16–28; TEMP 36.4–38.2; O2SAT 91–95; BMI 25.8; BMI 26.6
[2023-10-28 12:24] LABS: Appearance Urine Turbid (Clear); Bilirubin Urine Negative (Negative); Blood Urine 1+ (Negative); Color Urine Yellow (Yellow); Glucose Urine Negative (Negative); Ketones Urine Negative (Negative); Leukocyte Esterase Urine 3+ (Negative); Nitrite Urine Positive (Negative); Protein Urine 1+ (Negative); Urobilinogen Urine 0.2 (0.2-1.0)
[2023-10-28 12:33] LABS: Bacteria Urine Many; Squamous Epithelial Cell Urine Few (None-Few); WBC Urine >100 (0-5)
--- NOTE | 2023-10-28 13:02 | ED_ITS ---
HPI - Male Genitourinary General Time Seen by Provider: 13:02 Date Seen: 10/28/23 Chief complaint: Urogenital Problems, Male Stated complaint: UTI Time Seen by Provider: 10/28/23 12:36 Source: patient and RN notes reviewed Mode of arrival: ambulatory Limitations: no limitations History of Present Illness HPI Narrative: This 63-year-old male is brought in by his who is his primary care provider with concern of fever, weakness/sleepiness. Double his noted a low-grade temperature this morning which responded to Tylenol. He did seem more sleepy although she feels he is doing better. He is anticoagulated with Coumadin. He is straight cathed, does not have a chronic indwelling Saenz. He had recent urologic surgery to move kidney and bladder stones per dab. He has had a history of sepsis from UTIs. Looking in our records he had Klebsiella in January and E coli back in October of last year, both looked to be sensitive to Rocephin. Nelia notes that he did have a bladder infection before his surgery in the beginning of August, was given Cipro, infection came back in he was maintained on Cipro until his surgery. She thinks that he has been slurring his words a bit, maybe having some word-finding difficulty. We did review that this certainly could be associated with infection, with his presenting vitals in the urinalysis that they did bring in, he does have infected urine and think he is septic. Nelia did collect a sterile urine prior to coming in. Unfortunately due to the volume and acuity in the ED, they were not able to be brought back immediately. I was able to see is urinalysis results by the time he was roomed. He has a neurogenic bladder from his MS. He is denying any pain at this time, is obviously ill with tachycardia, hypotension and a positive urinalysis, have reviewed with them that I believe him to be septic. He has a history of nephrolithiasis, multiple sclerosis, history of pulmonary embolism on chronic anticoagulation with Coumadin, hyperlipidemia, neurogenic bladder for which they do in and out catheterization. Related Data Home Medications Medication Instructions Recorded Confirmed atorvastatin 20 mg tablet 20 mg PO QHS 10/03/22 10/28/23 sennosides 8.6 mg capsule (senna) 8.6 mg PO DAILY 10/03/22 02/05/23 warfarin 2 mg tablet 2 mg PO 3XW 10/03/22 02/06/23 warfarin 4 mg tablet 4 mg PO 4XW 10/03/22 02/06/23 olopatadine 0.2 % eye drops (Eye 2 drp ophthalmic (eye) DAILY PRN 02/05/23 02/06/23 Allergy Itch Relief) oxybutynin chloride 5 mg tablet 5 mg PO BID 02/05/23 02/05/23 baclofen 10 mg tablet 10 mg PO 3XD 02/06/23 02/06/23 Previous Rx's Medication Instructions Recorded ciprofloxacin HCl 500 mg tablet 500 mg PO BID 7 days #14 tabs 02/07/23 Allergies Allergy/AdvReac Type Severity Reaction Status Date / Time bee venom protein (honey bee) Allergy Verified 10/03/22 10:45 Review of Systems Status of ROS: Reports: unobtainable due to medical condition (ill, hypotensive) Narrative: Most of history provided by his Nelia at this time. [facility] Medical History (Updated 10/28/23 @ 16:08 by Elvira Shabazz MD) Multiple sclerosis ?G35 - Multiple sclerosis (ICD-10) Neurogenic bladder ?N31.9 - Neuromuscular dysfunction of bladder, unspecified (ICD-10) Femur fracture ?S72.90XA - Unspecified fracture of unspecified femur, initial encounter for closed fracture (ICD-10) Nephrolithiasis ?N20.0 - Calculus of kidney (ICD-10) Anticoagulated on Coumadin ?Z79.01 - knife cutter (current) use of anticoagulants (ICD-10) History of pulmonary embolism ?Z86.711 - Personal history of pulmonary embolism (ICD-10) Hyperlipidemia ?E78.5 - Hyperlipidemia, unspecified (ICD-10) Surgical History (Updated 10/28/23 @ 15:18 by Elvira Shabazz MD) S/P ORIF (open reduction internal fixation) fracture ?Z98.890 - Other specified postprocedural states (ICD-10) ?Z87.81 - Personal history of (healed) traumatic fracture (ICD-10) History of genitourinary surgery ?Z98.890 - Other specified postprocedural states (ICD-10) History of tonsillectomy and adenoidectomy ?Z90.89 - Acquired absence of other organs (ICD-10) Family History Mother Colon cancer COPD (chronic obstructive pulmonary disease) Father Heart disease Social History Narrative: Lives with Maida in [place]; she is primary mathematics instructor and would be medical decision maker if needed. Adult children. 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 Former smoker. Smoking Status: Never smoker Do you use any of these nicotine containing products: None Second hand tobacco smoke exposure: No How often do you have a drink containing alcohol: monthly or less How many standard drinks containing alcohol do you have on a typical day: 1 or 2 How often do you have six or more drinks on one occasion: Never AUDIT-C Alcohol total score: 1 Non-prescribed substance use: denies use Caffeine: No service: No Exam Const: Vital Signs, click to edit/add: Vital Signs - 24 hr 10/28/23 12:44 10/28/23 13:20 10/28/23 13:59 Temperature 97.6 F Pulse Rate 94 Pulse Rate [Pulse Oximeter] 124 H Respiratory Rate 16 Blood Pressure Blood Pressure [Ri ght Upper Arm] 87/61 L Pulse Oximetry 93 95 95 Oxygen Delivery Me thod Room Air 10/28/23 14:00 10/28/23 14:01 10/28/23 14:02 Temperature Pulse Rate 94 92 99 Pulse Rate [Pulse Oximeter] Respiratory Rate Blood Pressure 119/89 Blood Pressure [Ri ght Upper Arm] Pulse Oximetry 94 94 94 Oxygen Delivery Me thod 10/28/23 14:10 10/28/23 14:20 10/28/23 14:30 Temperature Pulse Rate Pulse Rate [Pulse Oximeter] Respiratory Rate Blood Pressure Blood Pressure [Ri ght Upper Arm] Pulse Oximetry 94 94 95 Oxygen Delivery Me thod 10/28/23 14:32 10/28/23 14:33 10/28/23 14:40 Temperature Pulse Rate 105 H Pulse Rate [Pulse Oximeter] Respiratory Rate Blood Pressure Blood Pressure [Ri ght Upper Arm] Pulse Oximetry 94 92 93 Oxygen Delivery Me thod 10/28/23 14:50 10/28/23 15:00 10/28/23 15:02 Temperature Pulse Rate 104 H 105 H 105 H Pulse Rate [Pulse Oximeter] Respiratory Rate Blood Pressure 136/88 Blood Pressure [Ri ght Upper Arm] Pulse Oximetry 92 94 93 Oxygen Delivery Me thod 10/28/23 15:10 10/28/23 15:20 10/28/23 15:30 Temperature Pulse Rate 107 H 102 H 107 H Pulse Rate [Pulse Oximeter] Respiratory Rate Blood Pressure Blood Pressure [Ri ght Upper Arm] Pulse Oximetry 94 95 94 Oxygen Delivery Me thod 10/28/23 15:32 Temperature Pulse Rate 109 H Pulse Rate [Pulse Oximeter] Respiratory Rate Blood Pressure 142/86 H Blood Pressure [Ri ght Upper Arm] Pulse Oximetry 94 Oxygen Delivery Me thod Can use currently see afebrile but cheeks are flushed. Pupils are equal round reactive, sclera clear, conjugate gaze does seem to have symmetrical facial function but at times his words do seem a little slurred. He is hypotensive, tachycardic. Neck is supple, no masses, lungs are clear anteriorly, no wheezing or crackles noted. CV fast irregular, do not hear murmur, normal S1-S2, no S3- S4. Abdomen is soft, nontender, nondistended, no organomegaly or masses noted. Documenting provider has reviewed patient's vital signs: yes Course Course ED Course: Reviewed with Nelia that he certainly is septic, will initiate IV fluids, IV antibiotics with Rocephin given his history of most recent organisms. Will get blood cultures, full complement of labs. Will do a head CT just to ensure no concomitantly brain bleed or significant acute intracranial pathology. Will see how he responds to the IV fluids and if this improves his baseline sense of being off and his verbal changes. Nelia his is here and will certainly be able to help us monitor if he is getting back to baseline or not. We will obviously get blood cultures. He is going to need hospitalization, will see how response and see if he is safe for staying at our organization, make sure that we do not find any other etiology. Will also get a portable chest x-ray as well as the triple swab. Reevaluation(s) Time of Reevaluation #1: 14:55 Reevaluation #1: Have reviewed with Nelia and Hans that his head CT showing a possible meningioma. She did complain later to me that he is developing a protuberance on the top of his head. This was x-rayed with his primary care provider with just a plain x- ray and look to just be a bony protuberance. He is not known to have a meningioma in his brain. Discussed that an MRI could be done, possibly outpatient. That can be followed up on but did want to talk about the CT finding of a possible meningioma. His white blood count is elevated in the 20,000 range. He has responded nicely to fluids with his pulse coming down and blood pressure back up. He is more alert and conversive, seems better to Nelia. She notes he just seemed off yesterday. I will talk to the hospitalist next about hospitalization for him as he does meet criteria for sepsis. Consultations Consultation #1: Did review this case with Dr. Shabazz, she will accept the patient. I do note when I was talking to her that I have not seen an EKG on him which was ordered on arrival here. Time: 14:58 Vital Signs Vital signs: Initial Vital Signs Temperature 97.6 F 10/28/23 12:44 Temperature Source Temporal Artery Scan 10/28/23 12:44 Pulse Rate 124 H 10/28/23 12:44 Respiratory Rate 16 10/28/23 12:44 Blood Pressure 87/61 L 10/28/23 12:44 Blood Pressure Mean 69 L 10/28/23 12:44 Pulse Oximetry 93 10/28/23 12:44 Oxygen Delivery Method Room Air 10/28/23 12:44 Vital Signs Temperature 97.6 F 10/28/23 12:44 Pulse Rate 124 H 10/28/23 12:44 Respiratory Rate 16 10/28/23 12:44 Blood Pressure 87/61 L 10/28/23 12:44 Pulse Oximetry 93 10/28/23 12:44 Oxygen Delivery Method Room Air 10/28/23 12:44 Temperature 98.8 F 10/28/23 15:57 Pulse Rate 108 H 10/28/23 15:57 Respiratory Rate 24 10/28/23 15:57 Blood Pressure 124/99 H 10/28/23 15:57 Pulse Oximetry 93 10/28/23 15:57 Oxygen Delivery Method Room Air 10/28/23 15:57 Medications Administered Medications: Discontinued Medications Generic Name Dose Route Start Last Admin Trade Name Freq PRN Reason Stop Dose Admin Sodium Chloride 1,000 mls @ 1,000 mls/hr 10/28/23 13:10 10/28/23 14:33 0.9 % Sodium Chloride 1000 Ml IV 10/28/23 14:09 Infused .Q1H JUAN MIGUEL Infusion Ceftriaxone Sodium 2 gm/ 100 mls @ 200 mls/hr 10/28/23 13:10 10/28/23 13:57 Sodium Chloride IVPB 10/28/23 13:11 Infused ONCE ONE Infusion Sodium Chloride 1,000 mls @ 1,000 mls/hr 10/28/23 13:35 10/28/23 14:33 0.9 % Sodium Chloride 1000 Ml IV 10/28/23 14:34 Infused .Q1H JUAN MIGUEL Infusion Sodium Chloride 500 mls @ 500 mls/hr 10/28/23 13:44 10/28/23 14:58 0.9 % Sodium Chloride 500 Ml IV 10/28/23 14:43 Infused .Q1H ONE Infusion MDM - Male Genitourinary Lab Data Attestation: I reviewed the patient's lab results. Labs: Lab Results 10/28/23 10/28/23 Range/Units 12:00 13:21 WBC 20.51 H (4.50-11.00) K/uL RBC 5.73 (4.30-5.90) m/uL Hgb 16.5 (13.5-17.5) gm/dL Hct 51.9 (37.0-53.0) % MCV 91 (80-100) fL MCH 29 (26-34) pg MCHC 32 (32-36) gm/dL RDW Coeff of Nas 14.9 (11.5-15.5) % Plt Count 299 (140-440) K/uL Neut % (Auto) 89.8 H (42.0-72.0) % Lymph % (Auto) 3.6 L (20-44) % [place] % (Auto) 6.4 (0.0-11.0) % Eos % (Auto) 0.0 (0.0-7.0) % Baso % (Auto) 0.0 (0.0-3.0) % Neut # (Auto) 18.40 H (1.7-7.0) K/uL Lymph # (Auto) 0.70 L (0.90-2.90) K/uL [place] # (Auto) 1.30 H (0.00-0.90) K/UL Eos # (Auto) 0.00 (0.00-0.50) K/uL Baso # (Auto) 0.00 (0.00-0.30) K/uL Abs Immat Gran (auto) 0.00 (0.00-0.30) K/uL Imm/Tot Granulo (auto) 0.2 % INR 1.53 H (0.91-1.10) Sodium 136 (135-149) mmol/L Potassium 4.6 (3.6-5.1) mmol/L Chloride 104 (96-114) mmol/L Carbon Dioxide 21 (20-32) mmol/L Anion Gap 11 (7-15) mEq/L BUN 14 (7-30) mg/dL Creatinine 1.0 (0.5-1.5) mg/dL Estimated Creat Clear 80.83 Estimated GFR 84 ml/min Glucose 111 (60-115) mg/dL Lactate 1.2 (0.5-1.9) mmol/L Calcium 9.1 (8.4-10.6) mg/dL Total Bilirubin 1.6 H (0.1-1.5) mg/dL AST 22 (12-35) U/L ALT 25 (4-50) U/L Alkaline Phosphatase 117 (40-150) U/L Troponin I < 0.01 L (0.01-0.04) ng/mL C-Reactive Protein 7.0 H (0.5-1.0) mg/dL NT-Pro-B Natriuret Pep 194 pg/mL Total Protein 8.4 H (6.0-8.3) g/dL Albumin 4.3 (3.3-5.0) g/dL Procalcitonin 0.15 (<0.50) ng/mL Urine Color Yellow (Yellow) Urine Appearance Turbid A (Clear) Urine pH 7.0 (5.0-8.5) Ur Specific [place] 1.020 (1.000-1.030) Urine Protein 1+ A (Negative) Urine Glucose (UA) Negative (Negative) Urine Ketones Negative (Negative) Urine Blood 1+ A (Negative) Urine Nitrite Positive A (Negative) Urine Bilirubin Negative (Negative) Urine Urobilinogen 0.2 (0.2-1.0) Ur Leukocyte Esterase 3+ A (Negative) Urine RBC 5-10 A (0-2) Urine WBC >100 A (0-5) Ur Squamous Epith Cells Few (None-Few) Urine Bacteria Many A (None) SARS-CoV-2 (PCR) Negative SARS-CoV-2 (Negative) Influenza Type A (PCR) Negative PCR FLU A (Negative) Influenza Type B (PCR) Negative PCR FLU B (Negative) RSV (PCR) Negative PCR RSV (Negative) Imaging Data CT scan - head: Attestation: I have reviewed the pertinent imaging results. Radiologist's impression: Patient: ISA ERVIN Facility:?[facility] Patient ID:?[id number] Site Patient [id number]:?[id number] Site :?[id number] Study:?CT Head WITHOUT-10/28/2023 2:12:32 PM Ordering Physician:Mark Salas Final Report: INDICATION: Altered mental status. TECHNIQUE: Noncontrast CT images of the brain. COMPARISON: None. FINDINGS: Tynd-ci-hyhtnrgh diffuse cerebral volume loss. No midline shift. The meza-white differentiation is maintained. Large encephalomalacia within the anteroinferior left frontal lobe. Patchy hypoattenuation in the supratentorial white matter, suggestive of moderate chronic microvascular ischemic changes. No acute intracranial hemorrhage or pathologic extra-axial fluid collection. Lentiform, extra-axial isoattenuation overlying the anteromedial left frontal lobe measuring up to 2.4 cm (series 2, image 39), favored to represent a meningioma. There is mild local mass effect without parenchymal edema. The globes are symmetric. The calvarium is intact. Hyperostosis frontalis interna. Edux-wu-hhokwnjv ethmoid sinus opacification. The mastoid air cells are clear. IMPRESSION: 1. No acute intracranial hemorrhage. 2. Lentiform isoattenuation overlying the anteromedial left frontal lobe, favored to represent meningioma though incompletely characterized. There is local mass effect without evidence for parenchymal edema. Contrast-enhanced MRI is offered for further evaluation on a nonemergent basis. 3. Large encephalomalacia within the anteroinferior left frontal lobe. Please note that all CT scans at this facility use dose modulation, iterative reconstruction, and/or weight-based dosing when appropriate to reduce radiation dose to as low as reasonably achievable. Dictated by Pietro Morales MD @ 10/28/2023 2:37:44 PM (Electronic Signature) Chest x-ray: Attestation: I have reviewed the pertinent imaging results. Radiologist's impression: Patient: ISA ERVIN Facility:?[facility] Patient ID:?[id number] Site Patient ID:?[id number] Site :?[id number] Study:?XRay Chest 1V XRAY-10/28/2023 2:03:26 PM Ordering Physician:Mark Salas Final Report: INDICATION: Fever and sepsis. COMPARISON: Portable AP chest February 06, 2023. TECHNIQUE: Single AP chest radiograph. FINDINGS: Normal size cardiac silhouette. Prominent interstitial pulmonary markings both lungs ;stable over a period of time. No acute pneumonic infiltrates or CHF. No pneumothorax or pleural effusion. IMPRESSION: No acute pathology. Dictated by Bib Bashir MD @ 10/28/2023 3:02:44 PM (Electronic Signature) ECG Data Attestation: I personally reviewed and interpreted this ECG as follows: (Sinus tachycardia, 107 beats per minute. Premature supraventricular contraction. QT corrected 480 millisecond. No evidence for any acute [place] or active ski me appear) ECG interpretation date: 10/28/23 ECG interpretation time: 16:00 Prior ECG tracings: not available for review Discharge Plan Discharge Clinical Impression: Urinary tract infection, Sepsis Patient Disposition: Admitted As Observation Discharge Location: [facility] Activity Level: No Restrictions Discharge Diet: Regular
--- NOTE | 2023-10-28 13:09 | CRLHL7_ITS ---
For Patients: As a result of the Cures Act, medical imaging exams and procedure reports are released immediately into your electronic medical record. You may view this report before your referring provider. If you have questions, please contact your health care provider. INDICATION: Fever and sepsis. COMPARISON: Portable AP chest February 06, 2023. TECHNIQUE: Single AP chest radiograph. FINDINGS: Normal size cardiac silhouette. Prominent interstitial pulmonary markings both lungs ;stable over a period of time. No acute pneumonic infiltrates or CHF. No pneumothorax or pleural effusion. IMPRESSION: No acute pathology. Dictated by Bib Bashir MD @ 10/28/2023 3:02:44 PM (Electronically Signed)
--- NOTE | 2023-10-28 13:20 | CRLHL7_ITS ---
For Patients: As a result of the Century Cures Act, medical imaging exams and procedure reports are released immediately into your electronic medical record. You may view this report before your referring provider. If you have questions, please contact your health care provider. INDICATION: Altered mental status. TECHNIQUE: Noncontrast CT images of the brain. COMPARISON: None. FINDINGS: Uhub-qw-fdaiczdy diffuse cerebral volume loss. No midline shift. The meza-white differentiation is maintained. Large encephalomalacia within the anteroinferior left frontal lobe. Patchy hypoattenuation in the supratentorial white matter, suggestive of moderate chronic microvascular ischemic changes. No acute intracranial hemorrhage or pathologic extra-axial fluid collection. Lentiform, extra-axial isoattenuation overlying the anteromedial left frontal lobe measuring up to 2.4 cm (series 2, image 39), favored to represent a meningioma. There is mild local mass effect without parenchymal edema. The globes are symmetric. The calvarium is intact. Hyperostosis frontalis interna. Gtqr-ce-gcmwqikb ethmoid sinus opacification. The mastoid air cells are clear. IMPRESSION: 1. No acute intracranial hemorrhage. 2. Lentiform isoattenuation overlying the anteromedial left frontal lobe, favored to represent meningioma though incompletely characterized. There is local mass effect without evidence for parenchymal edema. Contrast-enhanced MRI is offered for further evaluation on a nonemergent basis. 3. Large encephalomalacia within the anteroinferior left frontal lobe. Please note that all CT scans at this facility use dose modulation, iterative reconstruction, and/or weight-based dosing when appropriate to reduce radiation dose to as low as reasonably achievable. Dictated by Pietro Morales MD @ 10/28/2023 2:37:44 PM (Electronically Signed)
[2023-10-28 13:32] LABS: Lactate* 1.2 mmol/L (0.5-1.9)
[2023-10-28 13:35] LABS: Hematocrit 51.9 % (37.0-53.0); Hemoglobin* 16.5 gm/dL (13.5-17.5); Immature Granulocytes Pct Auto 0.2 %; Lymphocytes Percent Auto 3.6 % (20-44); Mean Corpuscular HGB Conc 32 gm/dL (32-36); Mean Corpuscular Hemoglobin 29 pg (26-34); Mean Corpuscular Volume 91 fL (80-100); Monocytes Percent Auto 6.4 % (0.0-11.0); Neutrophils Percent Auto 89.8 % (42.0-72.0); Platelet Count* 299 K/uL (140-440); RDW Coefficient of Variation % 14.9 % (11.5-15.5); Red Blood Count 5.73 m/uL (4.30-5.90); White Blood Count* 20.51 K/uL (4.50-11.00)
[2023-10-28] MEDS: 0.9 % SODIUM CHLORIDE 1000 ml 1,000 ML IV ×2 (13:38)
[2023-10-28] MEDS: cefTRIAXone 2 GM in 0.9 % SODIUM CHLORIDE Mini-bag 100 ML IVPB (13:38)
[2023-10-28 13:40] LABS: Slide Review Reflex No
--- OUTSIDE RECORDS SUMMARY | 2023-10-28 13:40 | XMS_ITS | Continuity of Care Document ---
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 Plan of Treatment Reminders Order Date Submit Date Provider Last Modified By Organization Details Last Modified Time Details Appointments ESTABLISH ED VIDEO VISIT 20 2023 01:40P M Neli Shoemaker PA-C Not available Not available Not available ESTABLISH ED 15 2023 01:45P M Osito Pate MD Not available Not available Not available Lab None recorded. Referral None recorded. Procedures None recorded. Surgeries None recorded. Imaging CT, abdomen + pelvis, w/o contrast - kidney stones, please contact pt to schedule . thanks 2022 023 [facility], [address] [place], [address], 08/22/2023 12:42:58 US, renal - right renal cyst please contact pt to schedule . thanks 2022 023 [facility], [address] [place], [address], 08/21/2023 12:15:37 Medication Orders None recorded. Patient TargetsNo targets recorded. Patient Instructions Encounter Date Encounter Id Patient Instructions Last Modified By Organization Details Last Modified Time 08/15/2023 [id number] ureteroscopy: wh at to expect at home Not available 08/15/2023 11:18:46 learning about ureteral stents Not available 08/15/2023 11:18:46 ureteral stent placement: what to expect at home Not available 08/15/2023 11:18:46 Kidney stones/bladder stones: Will repeat a CT scan at this point. I suspect he'll need surgery to remove stones but will determine this once I get the CT scan back. Likely he'll need URS ( ureteroscopy and laser lithotripsy) to treat renal/ureteral stones, and cystolithalopaxy to treat his bladder stones. Risks and benefits were discussed in detail. Ureteroscopy Risks We discussed the risks benefits and alternatives for treatment of the stone. The patient was informed the risks of bleeding, pain and infection as well as ureteral injury. The patient was told that if a ureteral stent is placed, it would likely result in urinary frequency, urgency, and dysuria, as well as flank pain with voiding. The stent would be removed at a later date as an office based procedure. In addition, there is an approximately 10% risk that I cannot get my instruments to the level of the stone. If this happens, I will leave an ureteral stent and will need to try again one to two weeks later. The patient was given the opportunity to ask any questions. Right renal cyst: Will get a renal ultrasound to assess the lesions seen on the right kidney back in October 2022. Neurogenic bladder/retention: Suggested that he pass the catheter in a timed fashion before he feels the urge to void to try to help decrease incontinence. Could consider passing the catheter every 4 hours while awake. Discussed that if straight catheterization is something that he wants to stop or is becoming burdensome, then I'd recommend placement a suprapubic catheter. Retention is permanent. Not available 08/15/2023 11:23:22 Reason for Referral None Reported. Results Created Date Observation Date Name Description Value Unit Range Abnormal Flag LastModifiedBy Organization Detail LastModifiedTime 08/21/2008/21/2023 US, renal No observ ation record ed. [facility] [address], [place], [address], 08/22/2023 09:39:35 08/22/2008/21/2023 CT, abdom en + pelvi s, w/o contr ast No observ ation record ed. [facility] [address], [place], [address], 08/27/2023 12:46:25 10/16/19 24 10/16/2023 XR, pyelo gram No observ ation record ed. [facility] [address] [facility], [place], [address], 10/16/2023 15:04:11 Result Notes None recorded. Problems Name Status Onset Date Resolution Date Notes Provider Name and Address Organization Details Recorded Time Screening for malignant neoplasm of prostate Active 019 Z12.5 : Screening for malignant neoplasm of prostate Not Available [facility] 0 23:47:30 Clinical finding Active 018 N20.0 : Staghorn calculus Not Available [facility] 0 23:47:30 Neurogenic dysfunction of the urinary bladder Active 018 N31.9 : Neurogenic dysfunction of the urinary bladder Not Available [facility] 0 23:47:30 History of urinary stone Active 018 Z87.442 : History of urinary stone Not Available [facility] 0 23:47:30 Cyst of kidney Active 023 Osito Pate MD [address] [place] [address],[address], [address], [facility] 3 11:17:54 Calculus of kidney and ureter Active 023 Osito Pate MD [address] [place] [address],[address], [address], [facility] 3 11:17:55 Urinary bladder stone Active 023 Osito Pate MD [address] [place] [address],[address], [address], [facility] 3 11:19:12 Neurogenic bladder Active 023 Osito Pate MD [address] [place] [address],[address] [place] [address], [address], [facility] 3 11:19:28 Retention of urine Active 023 Osito Pate MD [address] [place] [address],[address], [place], [address], [facility] 3 11:19:33 Kidney stone Active 024 Osito Pate MD [address] [place] [address],[address], [place], [address], [facility] 4 11:00:19 Problem Notes None recorded. Procedures Surgical History Date Name Laterality Status Provider Name and Address Organization Details Recorded Time 10/24/19 24 Cystoscopy with foreign body/stent removal completed Osito Pate MD [address] [place] [address],[facility] [address], [place], [address], [facility] 10/23/2023 10:59:43 10/05/19 24 Urine Culture completed Jonna saldivar [facility] 10/05/2023 16:23:47 08/01/20 19 Cysto/uretero w/lithotripsy completed Not Available [facility] 03/11/2020 14:45:31 03/28/20 18 Cystoscopy and treatment completed Not Available [facility] 03/11/2020 14:45:30 03/04/20 18 Remove bladder stone completed Not Available [facility] 03/11/2020 14:45:31 10/01/19 18 Colonoscopy thru stoma spx completed Not Available [facility] 03/11/2020 14:45:31 Imaging Results None recorded. Procedure Notes None recorded. Medical Equipment None Reported. Allergies Allergen ID Allergen Name Allergen Category Reaction Reaction Severity Criticality Documentation Date Start Date Code Code System Note Provider Name and Address Organization Details Recorded Time 333974 Medicinal product containin g penicilli n and acting as antibacte rial agent (product) medicatio n Not available Not available unabletoasse ss 10/08/2023 09695 05 SNOMED sympt oms or sever ity unkno wn. Updat ed per call with [facility]. This aller gy was on file with them since 2014. Rach saldivar [facility] 4 10:37:47 Medications Name Sig Start Date Stop Date Status Note LastModified by Organization Details LastModified Time warfarin 10 mg tablet Take 1 tablet every day by oral route. active Not Available Not Available No t Available doxycycline monohydrate 100 mg tablet Take 1 tablet twice a day by oral route for 10 days. 2023 active Not Available Not Available Not Avai lable amoxicillin 500 mg tablet Take 1 tablet twice a day by oral route for 10 days. 10/08 completed Not Available Not Available Not Available atorvastatin active Not Available Not Available Not Available oxybutynin active Not Available Not Av ailable Not Available Vitals Date Recorded Body height Body mass index (BMI) Body weight Provider Name and Address Organization Details Last Updated DateTime 08/15/2023 182.88 cm 25.8 kg/m2 09451.55 g Laura saldivar [facility] 08/15/2023 11:01:26 Social History Question Answer Notes LastModified by Organizat ion Details LastModified Time Tobacco Smoking Status Former Smoker Laura saldivar [facility] 08/15/2023 11:04:33 What Is Your Level Of Alcohol Consumption? None [email or web address] Information not available 08/15/2023 What Is Your Level Of Caffeine Consumption? None [email or web address] Information not available 08/15/2023 When Did You Quit Smoking? 16+yearssinc elastcigaret te [email or web address] Information not available 08/15/2023 Race White Information n ot available 03/11/2020 Marital Status Informati on not available 03/11/2020 What Was The Date Of Your Most Recent Tobacco Screening? 10/24/2023 [email or web address] Information not available 10/24/2023 Do You Use Any Illicit Or Recreational Drugs? No [email or web address] Information not available 08/15/2023 Has Tobacco Cessation Counseling Been Provided? No [email or web address] Information not available 08/15/2023 Do You Or Have You Ever Used Any Other Forms Of Tobacco Or Nicotine? No [email or web address] Information not available 08/15/2023 Sex: Male Functional Status None recorded. Mental Status None recorded. Family History Relationship Description Onset Age of this Age Resolved Age Notes Notes:Heart disease:Father Medical History Condition Response Other N High Blood Pressure Y Kidney Stones Y Depression N Lung Disease N GERD/Acid Reflux N Diabetes N Sexually Transmitted Infection N Bleeding Disorder N Cancer N High Cholesterol N Heart Disease N Past Encounters Encounter ID Performer Location Encounter Start Date Encounter Closed Date Diagnosis/Indication [id number] Osito Pate MD [facility] [address] [place] [address],[address] [place] [address] 08/15/2023 10:49:45 08/15/2023 11:27:52 Calculus of kidney and ureter Cyst of kidney Urinary bladder stone Neurogenic bladder Retention of urine Health Concerns Section Related Observation LastModified by Organization Detai ls LastModified Time None Recorded Concern Status LastModified by Organization Details LastModified Time None Recorded Payers Encounter Date Sequence Insurance Name Policy Number Policy Fiore Covered Member ID Fiore Member ID Guarantor Name 08/15/2023 2 [place] [id number] Dhruv A Gappa [id number] Dwain A Gappa 08/15/2023 1 [place] [employer] Dwain A Gappa [id number] Dwain A Gappa Notes Date Note Type Note Provider Name and Address Organization Details Recorded Time 08/15/2023 text/html HPI Notes: 08/15: Multiple sclerosis, NGB (does straight catheterization), kidney/bladder stones (history of struvite and calcium oxalate), HLD, PE. On warfarin. S/p bladder stone removal and right URS with Dr. Piedra on 08/01/19. On warfarin. PSA 11/03/21 = 1.9 ng/mL. Was at [facility] 10/15/22 to 10/17/[address] stone study 10/15/22 ([facility]) = IMPRESSION: 1. A 3 mm obstructing calculus in the left distal ureter, just above the ureterovesicular junction, with moderate left hydroureteronephrosis. 2. An 8 mm nonobstructing right intrarenal calculus. Few calcifications in/along the urinary bladder, favored to be within the lumen of the decompressed bladder. 3. A 30 mm indeterminate lesion in the right kidney is probably a simple cyst although evaluation is limited by streak artifact on CT. Nonemergent renal ultrasound can be considered to confirm its cystic nature. Cr 10/16/22 = 0.79 (GFR >60). Patient was supposed to follow shortly after discharge to discuss stone management. Here with his , Nelia. He's in a power wheelchair. Nelia provides most of the history. He's had three UTIs in the last 6 weeks. He hasn't had any imaging or seen an urologist since the hospitalization in October 2022. His does straight catheterization 4 to 5 times a day. However, there will be times that he leaks from the time he feels the need to empty his bladder to the time that the catheter can be passed. Osito Pate MD [address] [place] [address],[address], [place], [address], [facility] 08/15/2023 11:24:00
--- OUTSIDE RECORDS SUMMARY | 2023-10-28 13:40 | XMS_ITS | Continuity of Care Document ---
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 Procedures None recorded. Surgeries None recorded. Imaging None recorded. Medication Orders None recorded. Patient TargetsNo targets recorded. Patient InstructionsNo instructions recorded. Reason for Referral None Reported. Results Created Date Observation Date Name Description Value Unit Range Abnormal Flag LastModifiedBy Organization Detail LastModifiedTime 10/16/19 24 10/16/2023 XR, pyelo gram No observ ation record ed. [facility] [address] [place], [address], 10/16/2023 15:04:11 Result Notes None recorded. Problems Name Status Onset Date Resolution Date Notes Provider Name and Address Organization Details Recorded Time Screening for malignant neoplasm of prostate Active 019 Z12.5 : Screening for malignant neoplasm of prostate Not Available [facility] 0 23:47:30 Clinical finding Active 018 N20.0 : Staghorn calculus Not Available [facility] 0 23:47:30 Neurogenic dysfunction of the urinary bladder Active 018 N31.9 : Neurogenic dysfunction of the urinary bladder Not Available [facility] 0 23:47:30 History of urinary stone Active 018 Z87.442 : History of urinary stone Not Available [facility] 0 23:47:30 Cyst of kidney Active 023 Osito Pate MD [address] [place] [address],[address], [address], [facility] 3 11:17:54 Calculus of kidney and ureter Active 023 Osito Pate MD [address] [place] [address],[address], [address], [facility] 3 11:17:55 Urinary bladder stone Active 023 Osito Pate MD [address] [place] [address],[address] [place] [address], [address], [facility] 3 11:19:12 Neurogenic bladder Active 023 Osito Pate MD [address] [place] [address],[address] [place] [address], [address], [facility] 3 11:19:28 Retention of urine Active 023 Osito Pate MD [address] [place] [address],[address], [address], [facility] 3 11:19:33 Kidney stone Active 024 Osito Pate MD [address] [place] [address],[address], [address], [facility] 4 11:00:19 Problem Notes None recorded. Procedures Surgical History Date Name Laterality Status Provider Name and Address Organization Details Recorded Time 10/24/19 24 Cystoscopy with foreign body/stent removal completed Osito Pate MD [address] [place] [address],[address], [address], [facility] 10/23/2023 10:59:43 10/05/19 24 [facility]23 16:23:47 08/01/20 19 Cysto/uretero w/lithotripsy completed Not Available [facility] 03/11/2020 14:45:31 03/28/20 18 Cystoscopy and treatment completed Not Available [facility] 03/11/2020 14:45:30 03/04/20 18 Remove bladder stone completed Not Available [facility] 03/11/2020 14:45:31 10/01/19 18 Colonoscopy thru stoma spx completed Not Available [facility] 03/11/2020 14:45:31 Imaging Results None recorded. Procedure Notes None recorded. Medical Equipment None Reported. Allergies Allergen ID Allergen Name Allergen Category Reaction Reaction Severity Criticality Documentation Date Start Date Code Code System Note Provider Name and Address Organization Details Recorded Time 355718 Medicinal product containin g penicilli n and acting as antibacte rial agent (product) medicatio n Not available Not available unabletoasse ss 10/08/2023 73243 05 SNOMED sympt oms or sever ity unkno wn. Updat ed per call with [facility]y 024. This aller gy was on file with them since 2014. [facility] 10:[facility]47 Medications Name Sig Start Date Stop [...] Available Not Av ailable Not Available Vitals None Recorded Social History Question Answer Notes LastModified by Organizat ion Details LastModified Time Tobacco Smoking Status [facility] 08/15/2023 11:04:33 What Is Your Level Of Alcohol Consumption? None [email or web address] Information not available 08/15/2023 What Is Your Level Of Caffeine Consumption? None [email or web address] Information not available 08/15/2023 When Did You Quit Smoking? 16+yearssinc elastcigaret te [email or web address] Information not available 08/15/2023 Race White [email or web address] Information n ot available 03/11/2020 Marital Status [email or web address] Informati on not available 03/11/2020 What Was The Date Of Your Most Recent Tobacco Screening? 10/24/2023 [email or web address] Information not available 10/24/2023 Do You Use Any Illicit Or Recreational Drugs? No [email or web address] Information not available 08/15/2023 Has Tobacco Cessation Counseling Been Provided? No [email or web address] Information not available 08/15/2023 Do You Or Have You Ever Used Any Other Forms Of Tobacco Or Nicotine? No [email or web address] Information not available 08/15/2023 Sex: Male Functional Status None recorded. Mental Status None recorded. Family History Relationship Description Onset Age of this Age Resolved Age Notes Notes:Heart disease:Father Medical History Condition Response Sexually Transmitted Infection N Diabetes N Other N Bleeding Disorder N High Blood Pressure Y Kidney Stones Y High Cholesterol N GERD/Acid Reflux N Heart Disease N Cancer N Depression N Lung Disease N Past Encounters Encounter ID Performer Location Encounter Start Date Encounter Closed Date Diagnosis/Indication [id number] J[facility] [address] [place] [id number] 10/05/2023 15:55:15 10/05/2023 16:25:42 Slowing of urinary stream Health Concerns Section Related Observation LastModified by Organization Detai ls LastModified Time None Recorded Concern Status LastModified by Organization Details LastModified Time None Recorded Payers Encounter Date Sequence Insurance Name Policy Number Policy Fiore Covered Member ID Fiore Member ID Guarantor Name 10/05/2023 2 [place] [id number] Dhruv Condon Gappa [id number] Dwain Condon Gappa 10/05/2023 1 [place] [employer] Dwain Condon Gappa [id number] Dwain A Gappa Notes None Recorded
--- OUTSIDE RECORDS SUMMARY | 2023-10-28 13:40 | XMS_ITS | Data Portability ---
Author Name Unknown Address [address] [place] [address] Phone [phone] Organization [facility], [facility] Address [address] [place] [address] Care Team Providers Care Stapler Coil Unit Name Role Phone NATY SHARI Primary Care Provider [phone] Assessment No assessment recorded. Plan of Treatment Reminders Order Date Submit Date Provider Last Modified By Organization Details Last Modified Time Details Appointments ESTABLISH ED VIDEO VISIT 20 2023 01:40P Meir Shoemaker PA-C Not available Not available Not available ESTABLISH ED 15 2023 01:45P Meir Pate MD Not available Not available Not available Lab culture, urine 2023 024 [facility], [address], [address], [place], [address], 10/07/2023 11:40:13 Referral None recorded. Procedures None recorded. Surgeries None recorded. Imaging US, renal - kidney stones, please do 1 month from 10/24/23, thanks. 2023 024 [facility], [address] [place], [address], 10/24/2023 15:45:25 CT, abdomen + pelvis, w/o contrast - kidney stones, please contact pt to schedule . thanks 2022 023 [facility], [address] [place], [address], 08/22/2023 12:42:58 US, renal - right renal cyst please contact pt to schedule . thanks 2022 023 [facility], [address] [place], [address], 08/21/2023 12:15:37 Medication Orders None recorded. Patient TargetsNo targets recorded. Patient Instructions Encounter Date Encounter Id Patient Instructions Last Modified By Organization Details Last Modified Time 10/24/2023 [id number] Right kidney stone/bladder stones: Right ureteral stent was removed today. Renal U/S in 1 month. Stone prevention 6 weeks. Should drink enough fluids to keep the urine colorless. Stones = 80% calcium oxalate, 20% calcium phosphate (apatite). Not available 10/24/2023 15:28:27 08/15/2023 [id number] ureteroscopy: wh at to expect at home [...] Range Abnormal Flag LastModifiedBy Organization Detail LastModifiedTime 10/05/19 24 10/05/2023 URINE CULTU RE final report microb iology result s abnormal Not Available [facility] [address], [place], [address], 10/07/2023 11:40:12 08/21/20 23 08/21/2023 US, renal No observ ation record ed. [facility] [address], [place], [address], 08/22/2023 09:39:35 08/22/20 23 08/21/2023 CT, abdom en + pelvi s, w/o contr ast No observ ation record ed. [facility] [address], [place], [address], 08/27/2023 12:46:25 10/16/19 24 10/16/2023 XR, pyelo gram No observ ation record ed. [facility] [address] [place], [address], 10/16/2023 15:04:11 Result Notes None recorded. Problems Name Status Onset Date Resolution Date Notes Provider Name and Address Organization Details Recorded Time Screening for malignant neoplasm of prostate Active 019 Z12.5 : Screening for malignant neoplasm of prostate Not Available [facility] 0 23:47:30 Clinical finding Active 018 N20.0 : Staghorn calculus Not Available [facility] 0 23:47:30 Neurogenic dysfunction of the urinary bladder Active 018 N31.9 : Neurogenic dysfunction of the urinary bladder Not Available [facility] 0 23:47:30 History of urinary stone Active 018 Z87.442 : History of urinary stone Not Available [facility] 0 23:47:30 Cyst of kidney Active 023 Osito Pate MD [address] [place] [address],[address], [address], [facility] 3 11:17:54 Calculus of kidney and ureter Active 023 Osito Pate MD [address] [place] [address],[address], [address], [facility] 3 11:17:55 Urinary bladder stone Active 023 Osito Pate MD [address] [place] [address],[address] [place] [address], [address], [facility] 3 11:19:12 Neurogenic bladder Active 023 Osito Pate MD [address] [place] [address],[address], [address], [facility] 3 11:19:28 Retention of urine Active 023 Osito Pate MD [address] [place] [address],[address], [address], [facility] 3 11:19:33 Kidney stone Active 024 Osito Pate MD [address] [place] [address],[address], [address], [facility] 4 11:00:19 Problem Notes None recorded. Procedures Surgical History Date Name Laterality Status Provider Name and Address Organization Details Recorded Time 10/24/19 24 Cystoscopy with foreign body/stent removal completed Osito Pate MD [address] [place] [address],[address], [address], [facility] 10/23/2023 10:59:43 10/05/19 24 Urine Culture completed Jonna saldivar [facility] 10/05/2023 16:23:47 08/01/20 19 Cysto/uretero w/lithotripsy completed Not Available [facility] 03/11/2020 14:45:31 03/28/20 18 Cystoscopy and treatment completed Not Available [facility] 03/11/2020 14:45:30 03/04/20 18 Remove bladder stone completed Not Available [facility] 03/11/2020 14:45:31 10/01/19 18 Colonoscopy thru stoma spx completed Not Available [facility] 03/11/2020 14:45:31 Imaging Results Imaging Date Name Status LastModified by Organiz ation Details LastModified Time 08/21/2023 US, renal completed [facility] [address], [place], [address], 08/22/2023 09:39:35 08/21/2023 CT, abdomen + pelvis, w/o contrast completed [facility] [address], [place], [address], 08/27/2023 12:46:25 10/16/2023 XR, pyelogram completed [address] [place], [address], 10/16/2023 15:04:11 Procedure Notes None recorded. Medical Equipment None Reported. Allergies Allergen ID Allergen Name Allergen Category Reaction Reaction Severity Criticality Documentation Date Start Date Code Code System Note Provider Name and Address Organization Details Recorded Time 747654 Medicinal product containin g penicilli n and acting as antibacte rial agent (product) medicatio n Not available Not available unabletoasse ss 10/08/2023 00081 05 SNOMED sympt oms or sever ity unkno wn. Updat ed per call with [facility]. This aller gy was on file with them since 2014. FRANSISCO Trevino - [facility] 4 10:37:47 Medications Name Sig Start Date [...] Updated DateTime 08/15/2023 182.88 cm 25.8 kg/m2 78415.55 g Laura Santos [facility] 08/15/2023 11:01:26 Date Recorded Body height Body mass index (BMI) Body weight Provider Name and Address Organization Details Last Updated DateTime 10/24/2023 182.88 cm 24.4 kg/m2 70071.63 g Gema Roach [facility] 10/24/2023 15:00:20 Social History Question Answer Notes LastModified by Organizat ion Details LastModified Time Tobacco Smoking Status Former Smoker Laura Santos [facility] 08/15/2023 11:04:33 What Is Your Level Of Alcohol Consumption? None [email or web address] Information not available 08/15/2023 What Is Your Level Of Caffeine Consumption? None [email or web address] Information not available 08/15/2023 When Did You Quit Smoking? 16+yearssinc elastcigaret te [email or web address] Information not available 08/15/2023 Race White Information n ot available 03/11/2020 Marital Status Informati on not available 03/11/2020 What Was The Date Of Your Most Recent Tobacco Screening? 10/24/2023 [email or web address] Information not available 10/24/2023 Do You Use Any Illicit Or Recreational Drugs? No [email or web address] Information not available 08/15/2023 Has Tobacco Cessation Counseling Been Provided? No [email or web address] Information not available 08/15/2023 Do You Or Have You Ever Used Any Other Forms Of Tobacco Or Nicotine? No [email or web address] Information not available 08/15/2023 Sex: Male Functional Status None recorded. Mental Status None recorded. Family History Relationship Description Onset Age of this Age Resolved Age Notes Notes:Heart disease:Father Medical History Condition Response Diabetes N Sexually Transmitted Infection N Other N Bleeding Disorder N High Blood Pressure Y Kidney Stones Y High Cholesterol N GERD/Acid Reflux N Heart Disease N Cancer N Lung Disease N Depression N Past Encounters Encounter ID Performer Location Encounter Start Date Encounter Closed Date Diagnosis/Indication [id number] [facility] [address] [place] [address] 08/15/2023 10:49:45 08/15/2023 11:27:52 Calculus of kidney and ureter Cyst of kidney Urinary bladder stone Neurogenic bladder Retention of urine [id number] Jonna Nava [address] [address] 10/05/2023 15:55:15 10/05/2023 16:25:42 Slowing of urinary stream [id number] [facility] [address] 10/24/2023 14:54:34 10/24/2023 15:30:45 Kidney stone Urinary bladder stone Foreign body in ureter Health Concerns Section Related Observation LastModified by Organization Detai ls LastModified Time None Recorded Concern Status LastModified by Organization Details LastModified Time None Recorded Advance Directives Directive None Recorded Payers Encounter Date Sequence Insurance Name Policy Number Policy Fiore Covered Member ID Fiore Member ID Guarantor Name 10/24/2023 2 [place] [id number] Dhruv A Gappa [id number] Dwain A Gappa 10/24/2023 1 [place] [employer] [facility] Dwain A Gappa [id number] Dwain A Gappa 10/05/2023 2 [place] [id number] Dhruv A Gappa [id number] Dwain A Gappa 10/05/2023 1 [place] [employer] [facility] Dwain A Gappa [id number] Dwain A Gappa 08/15/2023 2 [place] [id number] Dhruv A Gappa [id number] Dwain A Gappa 08/15/2023 1 [place] [employer] [facility] Dwain A Gappa [id number] Dwain Condon [facility] Notes Date Note Type Note Provider Name and Address Organization Details Recorded Time 08/15/2023 text/html HPI Notes: 08/15: Multiple sclerosis, NGB (does straight catheterization), kidney/bladder stones (history of struvite and calcium oxalate), HLD, PE. On warfarin. S/p bladder stone removal and right URS with Dr. Piedra on 08/01/19. On warfarin. PSA 11/03/21 = 1.9 ng/mL. Was at [facility] 10/15/22 to 10/17/[address] stone study 10/15/22 ([place]) = IMPRESSION: 1. A 3 mm obstructing [...] catheter can be passed. Osito Pate MD [address], [place], [address], [facility] 08/15/2023 11:24:00 10/24/2023 text/html HPI Notes: 08/15: Multiple sclerosis, NGB (does straight catheterization), kidney/bladder stones (history of struvite and calcium oxalate), HLD, PE. On warfarin. S/p bladder stone removal and right URS with Dr. Piedra on 08/01/19. On warfarin. PSA 11/03/21 = 1.9 ng/mL. Was at [facility] 10/15/22 to 10/17/[address] stone study 10/15/22 ([place]) = IMPRESSION: 1. A 3 mm obstructing [...] time that the catheter can be passed. 10/24/23: Renal U/S 08/21/23 ([place]) = simple right renal cysts without masses, 1.[address] stone study 08/21/23 ([place]) = 1.6 cm right renal pelvis stone, two stones in left posterior bladder, no hydronephrosis. S/p cystolitholapaxy (two 5 mm stones removed) and right URS with HLL dusting and right ureteral stent placement 10/16/23 -> bladder neck felt tight and somewhat fixed, severe trabeculation with many cellulae, single bladder stone (V shaped so it looked like two on CT scan), vast majority of renal stone dusted and removed 6 to 7 fragments, all stones = 80% calcium oxalate, 20% calcium phosphate (apatite). Here for stent removal. Here with his . He's doing well and not having any pain. Osito Pate MD [address], [place], [address], [facility] 10/24/2023 15:29:52
--- OUTSIDE RECORDS SUMMARY | 2023-10-28 13:40 | XMS_ITS | Continuity of Care Document ---
Author Name Unknown Address [address] [place] [address] Phone [phone] Organization [facility], [facility] Address [address] [place] [address] Care Team Providers Care Finish Mender Name Role Phone SHARI ALFONSO Primary Care [...] 1 month from 10/24/23, thanks. 2023 024 [facility], [address] [place], [address], 10/24/2023 15:45:25 Medication Orders None recorded. Patient TargetsNo targets recorded. Patient Instructions Encounter Date Encounter Id Patient Instructions Last Modified By Organization Details Last Modified Time 10/24/2023 [id number] Right kidney stone/bladder stones: Right ureteral stent was removed today. Renal U/S in 1 month. Stone prevention 6 weeks. Should drink enough fluids to keep the urine colorless. Stones = 80% calcium oxalate, 20% calcium phosphate (apatite). Not available 10/24/2023 15:28:27 Reason for Referral None Reported. Results Created Date Observation Date Name Description Value Unit Range Abnormal Flag LastModifiedBy Organization Detail LastModifiedTime 10/16/1910/16/2023 XR, pyelo gram No observ ation record ed. [facility] [address], [place], [address], 10/16/2023 15:04:11 Result Notes None recorded. Problems Name Status Onset Date Resolution Date Notes Provider Name and Address Organization Details Recorded Time Screening for malignant neoplasm of prostate Active 019 Z12.5 : Screening for malignant neoplasm of prostate Not Available [facility] 0 23:47:30 Clinical finding Active 018 N20.0 : Staghorn calculus Not Available [facility] 0 23:47:30 Neurogenic dysfunction of the urinary bladder Active 018 N31.9 : Neurogenic dysfunction of the urinary bladder Not Available [facility] 0 23:47:30 History of urinary stone Active 018 Z87.442 : History of urinary stone Not Available [facility] 0 23:47:30 Cyst of kidney Active 023 Osito Pate MD [address] [place] [address],[address], [address], [facility] 3 11:17:54 Calculus of kidney and ureter Active 023 Osito Pate MD [address] [place] [address],[address], [address], [facility] 3 11:17:55 Urinary bladder stone Active 023 Osito Pate MD [address] [place] [address],[address], [address], [facility] 3 11:19:12 Neurogenic bladder Active 023 Osito Pate MD [address] [place] [address],[address], [address], [facility] 3 11:19:28 Retention of urine Active 023 Osito Pate MD [address] [place] [address],[address], [address], [facility] 3 11:19:33 Kidney stone Active 024 Osito Pate MD [address], [place], [address], [facility] 4 11:00:19 Problem Notes None recorded. Procedures Surgical History Date Name Laterality Status Provider Name and Address Organization Details Recorded Time 10/24/19 24 Cystoscopy with foreign body/stent removal completed Osito Pate MD [address] [place] [address],[address], [place], [address], [facility] 10/23/2023 10:59:43 10/05/19 24 Urine Culture completed Jonna saldivar [facility] 10/05/2023 16:23:47 08/01/20 19 Cysto/uretero w/lithotripsy completed Not Available [facility] 03/11/2020 14:45:31 03/28/20 18 Cystoscopy and treatment completed Not Available [facility] 03/11/2020 14:45:30 03/04/20 18 Remove bladder stone completed Not Available [facility] 03/11/2020 14:45:31 10/01/19 18 Colonoscopy thru stoma spx completed Not Available [facility] 03/11/2020 14:45:31 Imaging Results None recorded. Procedure Notes None recorded. Medical Equipment None Reported. Allergies Allergen ID Allergen Name Allergen Category Reaction Reaction Severity Criticality Documentation Date Start Date Code Code System Note Provider Name and Address Organization Details Recorded Time 260062 Medicinal product containin g penicilli n and acting as antibacte rial agent (product) medicatio n Not available Not available unabletoasse ss 10/08/2023 14084 05 SNOMED sympt oms or sever ity unkno wn. Updat ed per call with [facility] 024. This aller gy was on file with them since 2014. Rach saldivar [facility] 4 10:37:47 Medications Name Sig [...] Updated DateTime 10/24/2023 182.88 cm 24.4 kg/m2 08159.63 g Dewayneu Avinash Doc saldivar [facility] 10/24/2023 15:00:20 Social History Question Answer Notes LastModified by Organizat ion Details LastModified Time Tobacco Smoking Status Former Smoker Laura Felipemario saldivar [facility] 08/15/2023 11:04:33 What Is Your Level Of Alcohol Consumption? None [email or web address] Information not available 08/15/2023 What Is Your Level Of Caffeine Consumption? None Information not available 08/15/2023 When Did You Quit Smoking? 16+yearssinc elastcigaret te [email or web address] Information not available 08/15/2023 Race White Information n ot available 03/11/2020 Marital Status Informati on not available 03/11/2020 What Was The Date Of Your Most Recent Tobacco Screening? 10/24/2023 [email or web address] Information not available 10/24/2023 Do You Use Any Illicit Or Recreational Drugs? No Information not available 08/15/2023 Has Tobacco Cessation Counseling Been Provided? No [email or web address] Information not available 08/15/2023 Do You Or Have You Ever Used Any Other Forms Of Tobacco Or Nicotine? No Information not available 08/15/2023 Sex: Male Functional Status None recorded. Mental Status None recorded. Family History Relationship Description Onset Age of this Age Resolved Age Notes Notes:Heart disease:Father Medical History Condition Response Other N High Blood Pressure Y Kidney Stones Y Lung Disease N Depression N GERD/Acid Reflux N Sexually Transmitted Infection N Diabetes N Bleeding Disorder N Cancer N High Cholesterol N Heart Disease N Past Encounters Encounter ID Performer Location Encounter Start Date Encounter Closed Date Diagnosis/Indication [id number] Jonna Nava [facility] [address] [place] [address],[address] [place] [address] 10/05/2023 15:55:15 10/05/2023 16:25:42 Slowing of urinary stream [id number] Osito Pate MD [facility] ry [address] [place] [address],[address] [place] [address] 10/24/2023 14:54:34 10/24/2023 15:30:45 Kidney stone Urinary bladder stone Foreign body in ureter Health Concerns Section Related Observation LastModified by Organization Detai ls LastModified Time None Recorded Concern Status LastModified by Organization Details LastModified Time None Recorded Payers Encounter Date Sequence Insurance Name Policy Number Policy Fiore Covered Member ID Fiore Member ID Guarantor Name 10/24/2023 2 [place] [id number] Dhruv A Gappa [id number] Dwain A Gappa 10/24/2023 1 [place] [email or web address] Dwain A Gappa [id number] Dwain A Gappa Notes Date Note Type Note Provider Name and Address Organization Details Recorded Time 10/24/2023 text/html HPI Notes: 08/15: Multiple sclerosis, NGB (does straight catheterization), kidney/bladder stones (history of struvite and calcium oxalate), HLD, PE. On warfarin. S/p bladder stone removal and right URS with Dr. Piedra on 08/01/19. On warfarin. PSA 11/03/21 = 1.9 ng/mL. Was at [facility] 10/15/22 to 10/17/[address] stone study 10/15/22 ([place]) = IMPRESSION: 1. A 3 mm obstructing [...] can be passed. 10/24/23: Renal U/S 08/21/23 ([place]) = simple right renal cysts without masses, 1.[address] stone study 08/21/23 ([place]) = 1.6 cm right renal pelvis stone, [...] not having any pain. Osito Pate MD [address], [place], [address], [facility] 10/24/2023 15:29:52
--- OUTSIDE RECORDS SUMMARY | 2023-10-28 13:41 | XMS_ITS | Clinical Summary ---
Author Name Unknown Organization [facility] Address [place], [place] [address] Care Team Providers Care Auto Air Conditioning Installer Name Role Phone Hang Carpenter Primary Care Provider [phone] Allergies Active Allergy Reactions Criticality Noted Date Comments Venom-Honey Bee Angioedema High 02/28/2018 Penicillins *Unknown - Pt Doesn't Remember Medium 01/29 Medications Medication Sig Dispensed Refills Start Date End Date Status Catheter (SELF-CATHETER, FEMALE) 14 Fr USE DIRECTED 0 07/22/2019 Active doxycycline (ADOXA) 100 mg tablet Take 1 tablet twice a day by oral route for 10 days. 0 10/08/2023 Active baclofen (LIORESAL) 10 mg tablet TAKE ONE TABLET BY MOUTH THREE TIMES A DAY FOR MULTIPLE SCLEROSIS 0 04/25/2023 Active atorvastatin (LIPITOR) 20 mg tablet Take 20 mg by mouth at bedtime. 0 10/30/2022 Active warfarin (COUMADIN) 2 mg tablet Take 2 mg by mouth once daily. 0 Active sennosides (SENNA ORAL) Take by mouth once daily. 0 Active oxybutynin (DITROPAN) 5 mg tablet Take 5 mg by mouth two times daily. 0 Active olopatadine HCl (PATADAY OPHT) Place into the eye(s). 0 Active HYDROcodone-dianne taminophen (5-325 mg/tablet)Indic ations:Calculus , kidney Take 1 to 2 Tablets by mouth every 4 hours if needed for Pain. Max acetaminophen dose: 4000 mg in 24 hrs. 10 Tablet 0 10/16/2023 Active lactulose 10 gram/15 mL solutionIndicat ions:constipati on Take 10 g by mouth once daily. Patient taking 1/2 doses 3-4 times per day Indications: constipation 0 02/12/2018 4 Discontinue d(*Patient states no longer taking) multivitamin (MVI) tablet Take 1 Tab by mouth. 0 02 4 Discontinue d(*Patient states no longer taking) warfarin (COUMADIN) 5 mg tablet Take 1 tablet (5 mg) PO daily on Mon, Wed, Fri; take 1/2 tablet (2.5 mg) on all other days and as directed by Anticoagulation clinic 0 04/08/2019 4 Discontinue d(*Patient states no longer taking) warfarin (COUMADIN) 2.5 mg tablet Take 2 mg by mouth once daily. 0 4 Discontinue d(*Patient states no longer taking) oxyCODONE (ROXICODONE) 5 mg immediate release tabletIndicatio ns:Kidney stone Take 1 tablet by mouth every 6 hours if needed for Pain 12 tablet 0 08/01/2019 4 Discontinue d(*Patient states no longer taking) oxybutynin (DITROPAN) 5 mg tabletIndicatio ns:Kidney stone Take 1 tablet by mouth 3 times daily if needed. 30 tablet 0 08/01/2019 4 Discontinue d(*Patient states no longer taking) citalopram (CELEXA) 20 mg tablet daily. Take 1/2 a day for the first ten days and then one a day thereafter for depression 0 08/11/2019 4 Discontinue d(*Patient states no longer taking) NITROFURANTOIN ORAL Take 100 mg by mouth two times daily. 0 4 Discontinue d(*Patient states no longer taking) enoxaparin sodium (LOVENOX SUBQ) Inject subcutaneous two times daily. 0 4 Discontinue d(*Patient states no longer taking) Encounters Date Type Department Care Team Description 10/16/2023 12:16 PM SOFTWARE PRODUCT MANAGER - 10/16/2023 2:42 PM SOFTWARE PRODUCT MANAGER Surgery [address] [address] Osito Pate MD CYSTOSCOPY, CYSTOLITHALOPAXY, RIGHT RETROGRADE PYELOGRAM, RIGHT URETEROSCOPY WITH LASER LITHOTRIPSY, RIGHT URETERAL STENT PLACEMENT 10/16/2023 11:58 AM SOFTWARE PRODUCT MANAGER Anesthesia Event [facility] [address] [place] [address] Bhanu Delgado MD Koenig, Lisa Fredkove, MD 10/16/2023 10:40 AM SOFTWARE PRODUCT MANAGER - 10/16/2023 4:45 PM SOFTWARE PRODUCT MANAGER Hospital Encounter [address] [address] Osito Pate MD Calculus, kidney (Primary Dx) Discharge Disposition: Home Self Care 10/15/2023 Travel from Last 3 Months Social History Tobacco Use Types Packs/Day Years Used Date Smoking Tobacco: Former Cigarettes Q uit: 07/31/1989 Smokeless Tobacco: Current Chew Tobacco Cessation:Ready to Q uit: Not Asked; Counseling Given: Not Answered Alcohol Use Standard Drinks/Week Comments No 0 (1 standard drink = 0.6 oz pur e alcohol) Sex and Gender Information Value Date Recorded Sex Assigned at Not on file Gender Identity Not on file Sexual Orientation Not on file Obstetrics History Last Filed Vital Signs Vital Sign Reading Time Taken Comments Blood Pressure 119/69 10/16/2023 4:29 PM SOFTWARE PRODUCT MANAGER Pulse 93 10/16/2023 4:29 PM SOFTWARE PRODUCT MANAGER Temperature 36.3 ??C (97.3 ??F) 10/16/2023 3:50 PM CS T Respiratory Rate 16 10/16/2023 4:10 PM SOFTWARE PRODUCT MANAGER Oxygen Saturation 94% 10/16/2023 4:29 PM SOFTWARE PRODUCT MANAGER Inhaled Oxygen Concentration - - Weight 86.8 kg (191 lb 6.4 oz) 10/16/2023 11:27 AM SOFTWARE PRODUCT MANAGER Height 182.9 cm (6') 10/16/2023 11:27 AM SOFTWARE PRODUCT MANAGER Body Mass Index 25.96 10/16/2023 11:27 AM SOFTWARE PRODUCT MANAGER Plan of Treatment Health Maintenance Due Date Last Done Comments Tdap 1969 Depression screening for age 12+ 1970 HIV for age 15-65 1973 Hepatitis C screening for age 18-79 1976 Tetanus booster 1978 Colonoscopy through age 75 2003 Lipids for age 45-75 2003 Zoster (shingles) series for age 50+ (1 of 2) 2008 BMI (ht and wt on same day) for age 18+ 02/12/2019 02/12/2018 AAA screening age 65-74 2023 Pneumococcal series for age 65+ (1 of 1 - PCV) 2023 COVID-19 vaccine series (4 - 2022-24 season) 2023 09/09/2021, 12/29/2020, 12/08/2020 Influenza for age 65+ 06/01/2023 Medical Devices Implanted Type Area Filter Changing Technician Device Identifier Shelf Expiration Date Model / Serial / Lot Stent Uret [id number] Percuflex Hydroplus - [id number] Implanted:Qty: 1 on 03/04/2018 by Jordi Piedra MD at [facility] Right: Ureter [facility] 07/29/2020 [id number]# / / [id number] Stent Uret [id number] Percuflex Hydroplus - [id number] Implanted:Qty: 1 on 08/01/2019 by Jordi Piedra MD at [facility] Right: Ureter [facility] 02/23/2022 [id number]# / / [id number] Stent Uret [id number] Percuflex Hydroplus - [id number] Implanted:Qty: 1 on 10/16/2023 by Osito Pate MD at [facility] Right: Ureter [facility] 03/23/2026 [id number] / / [id number] Procedures Procedure Name Priority Date/Time Associated Diagnosis Comments XR RETROGRADE PYELOGRAM W/WO KUB GREATER 1 HOUR Routine 10/16/2023 1:39 PM SOFTWARE PRODUCT MANAGER STONE ANALYSIS Today 10/16/2023 1:28 PM SOFTWARE PRODUCT MANAGER STONE ANALYSIS Today 10/16/2023 12:38 PM SOFTWARE PRODUCT MANAGER ENDOTRACHEAL TUBE Routine 10/16/2023 12:23 PM SOFTWARE PRODUCT MANAGER ENDOTRACHEAL TUBE Routine 10/16/2023 12:23 PM SOFTWARE PRODUCT MANAGER CYSTOSCOPY URETEROSCOPY STONE ABLATION LASER 10/16/2023 11:48 AM SOFTWARE PRODUCT MANAGER RIGHT KIDNEY STONE Case Notes 120 MINS - T/FFLUOROSCOPYLASER Special Needs Ht wt neededParaplegicLift room dosWarfarin Last dose 1-10-24Self CathsDelayed EmeregnceHOH PROTIME-INR Preop 10/16/2023 11:17 AM SOFTWARE PRODUCT MANAGER SCAN-CARDIAC STRIP 10/16/2023 12:00 AM SOFTWARE PRODUCT MANAGER from Last 3 Months Results * XR RETROGRADE PYELOGRAM W/WO KUB GREATER 1 HOUR (10/16/2023 1:39 PM SOFTWARE PRODUCT MANAGER) Anatomical Region Laterality Modality KIDNEYS, Abdomen Computed Radiog tracy 10/16/2023 1:39 PM SOFTWARE PRODUCT MANAGER Narrative 10/16/2023 1:51 PM SOFTWARE PRODUCT MANAGER For Patients: As a result of the Cures Act, medical imaging exams and procedure reports are released immediately into your electronic medical record. You may view this report before your referring provider. If you have questions, please contact your health care provider. EXAM: XR RETROGRADE PYELOGRAM W/WO KUB GREATER 1 HOUR LOCATION: [facility] MEDICAL IMAGING DATE: 10/16/2023 INDICATION: Stones COMPARISON: None. TECHNIQUE: Exam performed by urologist. RADIATION DOSE: MIC 42.14 mGy FINDINGS: Intraoperative fluoroscopy demonstrates retrograde opacification of the ureter with a normal caliber. Moderate dilatation of the renal collecting system with a double-J ureteral catheter placed with the proximal and distal pigtails in appropriate position. Procedure Note Americo Ash MD - 10/16/2023 For Patients: As a result of the Cures Act, medical imagingexams and procedure reports are released immediately into your electronicmedical record. You may view this report before your referring provider.If you have questions, please contact your health care provider. EXAM: XR RETROGRADE PYELOGRAM W/WO KUB GREATER 1 HOUR LOCATION: [facility] MEDICAL IMAGING DATE: 10/16/2023 INDICATION: Stones COMPARISON: None. TECHNIQUE: Exam performed by urologist. RADIATION DOSE: MIC 42.14 mGy FINDINGS: Intraoperative fluoroscopy demonstrates retrograde opacificationof the ureter with a normal caliber. Moderate dilatation of the renalcollecting system with a double-J ureteral catheter placed with theproximal and distal pigtails in appropriate position. Osito Pate MD GENERAL IMAGING * STONE ANALYSIS (10/16/2023 1:28 PM SOFTWARE PRODUCT MANAGER) Only the most recent of2 resultswithin the time period is included. Source Comment 10/22/2023 6:07 PM [facility] Comment:Right Kidney Color Brown 10/22/2023 6:07 PM [facility] Size 4x3 mm 10/22/2023 6:[address] [facility] ([facility]) Comment: Multiple pieces received. ??Dimensions of the largest piece reported. Weight 52.0 mg 10/22/2023 6:[address] [facility] ([facility]) Composition Comment 10/22/2023 6:[address] [facility] ([facility]) Comment:Percentage (Represen ts the % composition) Calcium Oxalate Monoh 60 % 10/22/2023 6:[address] [facility] ([facility]) Calcium Oxalate Dihyd 20 % 10/22/2023 6:[address] [facility] ([facility]) Hydroxyapatite 20 % 10/22/2023 6:[address] [facility] ([facility]) Comment Comment 10/22/2023 6:[address] [facility] ([facility]) Comment: Calcium phosphate (hydroxyl form) includes hydroxyapatite, amorphous calcium phosphate, and whitlockite. Hydroxyapatite is the most common of the calcium phosphate salts found in human kidney stones. Comment Comment 10/22/2023 6:[address] [facility] ([facility]) Comment: Calculus received wet. Wet calculi must be dried before analysis, which delays reporting of results. Leaving calculi wet (such as water, saline, blood, urine) may lead to changes in composition. Photo Comment 10/22/2023 6:07 PM [facility] Comment:Photograph will foll ow under a separate cover Comment: Comment 10/22/2023 6:[address] [facility] ([facility]) Comment: Physician questions regarding Calculi Analysis contact [facility] at: [phone]. Please note: Comment 10/22/2023 6:[address] [facility] ([facility]) Comment: Calculi report will follow via computer, mail or vp global delivery. Disclaimer: Comment 10/22/2023 6:[address] [facility] ([facility]) Comment: This test was developed and [facility] ??It has not been cleared or approved by the Food and Drug Administration. Calculi (stone) (Right Kidney Stone) Non-Blood / Unknown 10/16/2023 1:28 PM SOFTWARE PRODUCT MANAGER 10/16/2023 2:00 PM SOFTWARE PRODUCT MANAGER Narrative [facility] ([facility] - 10/22/2023 6:07 PM [facility] Performed at: ??01 - [facility] [place] ??[id number] Client Support Administrator: Marvel Moses PhD, Phone: ??[phone] Osito Pate MD SEND OUTS [facility] ([facility]) [facility] [place] [address], * HCHG TUBE PR1, HCHG MOUTHPIECE PR1 (10/16/2023 12:23 PM SOFTWARE PRODUCT MANAGER) Narrative Guanakito Garrison CRNA - 10/16/2023 12:23 PM SOFTWARE PRODUCT MANAGER Guanakito Garrison CRNA ? 10/16/2023 12:23 PM Procedure: ETT Patient location during procedure: OR ETT Properties Mask Ventilation: oral airway Final Technique: direct laryngoscopy Type: straight Location: oral Cuffed: yes Tube Size: 8.0 mm Laryngoscope Blade: Torres Blade Size: 2 Cormack-Lehane Grade View: 1 Insertion Attempts: 1 Placement Verification: auscultation, end tidal CO2 and symmetrical chest wall movement Assessment: pharynx clear, atraumatic and dentition unchanged Secured at: 24 Measured From: lips Tooth guard used and removed: yes Bite Block: soft Difficulty: 0 (not difficult) Bhanu Delgado MD ANESTHESIA PX NOTE ORDERABLES * (ABNORMAL) PROTIME-INR (10/16/2023 11:17 AM SOFTWARE PRODUCT MANAGER) INR 1.2 <1.3 10/16/2023 11:44 [address] SOFTWARE PR[address] MA[address]GER [facility] PROTIME 13.1(H) 10.3 - 12.3 sec 10/16/2023 11:44 [address] [facility] Blood BLOOD SPECIMEN / Unknown Non-Lab Venipuncture / Unknown 10/16/2023 11:17 AM SOFTWARE PRODUCT MANAGER 10/16/2023 11:26 AM SOFTWARE PRODUCT MANAGER Narrative [facility] - 10/16/2023 11:44 AM SOFTWARE PRODUCT MANAGER ?Therapeutic Range 2.0-3.0 for most anticoagulated patients 2.5-3.5 or 4.0 for high risk patients The INR is only used for patients on stable oral anticoagulant therapy. It makes no significant contribution to the diagnosis or treatment of patients whose Protime is prolonged for other reasons. INR results are increased when heparin levels exceed 1.0 U/mL, which corresponds to an aPTT >125 seconds if the patient is on UFH. Osito Pate MD HEMATOLOGY [facility] SENDOUT INTERNAL [facility] [id number] [place] [id number] * SCAN-CARDIAC STRIP (10/16/2023 12:00 AM SOFTWARE PRODUCT MANAGER) Narrative 10/16/2023 12:00 AM SOFTWARE PRODUCT MANAGER Ordered by an unspecified provider. Other Clinical Staff OTHER from Last 3 Months Advance Directives Latest Code Status on File Code Status Date Activated Date Inactivated Comments Full Code 10/16/2023 10:37 AM 10/16/2023 6:57 PM Shou ld be discussed pre operatively with anesthesia or surgeon Question Answer Comments Code Status Discussion: Not Discussed Code Status History Code Status Date Activated Date Inactivated Comments Full Code 08/01/2019 9:15 AM 08/01/2019 5:21 PM Full Code 03/04/2018 5:50 AM 03/04/2018 1:54 PM Care Teams Auto Air Conditioning Installer Relationship Specialty Start Date End Date Hang Carpenter [address] [place] [address] PCP - General Family Practice 09/01/15
--- OUTSIDE RECORDS SUMMARY | 2023-10-28 13:41 | XMS_ITS ---
Author Name Unknown Organization [facility] Address [address] [place] [address] Care Team Providers Care Mobile Nurse Name Role Phone Unavailable Unavailable Unavailable Surgery Details Not on file Complications Check Surgery Details section. Procedure Estimated Blood Loss Check Surgery Details section. Procedure Findings Check Surgery Details section. Procedure Specimens Taken Check Surgery Details section.
--- OUTSIDE RECORDS SUMMARY | 2023-10-28 13:41 | XMS_ITS | Encounter Summary ---
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 No 09/19/2023 Within the last year, have y ou been humiliated or emotionally abused in other ways by your partner or ex-partner? No Within the last year, have y ou been kicked, hit, slapped, or otherwise physically hurt by your partner or ex-partner? No 09/19/2023 Within the last year, have y ou been raped or forced to have any kind of sexual activity by your partner or ex-partner? No 09/19/2023 Social Connection and Isolation Panel [NHANES] A nswer Date Recorded In a typical week, how many times do you talk on the phone with family, friends, or neighbors? Once a week 09/19/20 How often do you get togethe r with friends or relatives? Once a week 09/19/2023 How often do you attend chur ch or zoroastrianism services? 1 to 4 times per year 09/19/2023 Do you belong to any clubs o r organizations such as jain groups, unions, fraternal or athletic groups, or school groups? No 09/19/2023 How often do you attend meet ings of the clubs or organizations you belong to? Never 09/19/2023 Are you , , di vorced, , never , or living with a partner? 09/19/2023 AUDIT-C Answer Date Recorded Q1: How often do you have a drink containing alcohol? Never 09/19/2023 Q2: How many drinks containi ng alcohol do you have on a typical day when you are drinking? Patient does not drink Q3: How often do you have si x or more drinks on one occasion? Never 09/19/2023 Overall Financial Resource Strain (CARDIA) Answe r Date Recorded How hard is it for you to pa y for the very basics like food, housing, medical care, and heating? Not very hard 09/19/2023 PHQ-2 Answer Date Recorded PHQ-9 Total Score 2 09/19/2023 [facility] Occupational Stress Questionnaire Answer Date Recorded Do you feel stress - tense, restless, nervous, or anxious, or unable to sleep at night because your mind is troubled all the time - these days? Not at all 09/19/2023 Exercise Vital Sign Answer Date Recorde d On average, how many days pe r week do you engage in moderate to strenuous exercise (like a brisk walk)? 0 days 09/19/2023 On average, how many minutes do you engage in exercise at this level? 0 min 09/19/2023 Hunger Vital Sign Answer Date Recorded Within the past 12 months, y ou worried that your food would run out before you got the money to buy more. Never true 09/19/20 23 Within the past 12 months, t he food you bought just didn't last and you didn't have money to get more. Never true 09/19/2023 PRAPARE - Transportation Answer Date Re corded In the past 12 months, has l ack of transportation kept you from medical appointments or from getting medications? No 09/01 In the past 12 months, has l ack of transportation kept you from meetings, work, or from getting things needed for daily living? No 09/19/2023 Housing Stability Vital Sign Answer Jose e Recorded In the last 12 months, was t here a time when you were not able to pay the mortgage or rent on time? No 09/19/2023 In the last 12 months, how many places have you lived? 1 09/19/2023 In the last 12 months, was t here a time when you did not have a steady place to sleep or slept in a longterm (including now)? No 09/19/2023 Sex and Gender Information Value Date Recorded Sex Assigned at Not on file Gender Identity Not on file Sexual Orientation Not on file documented as of this encounter Progress Notes * Dolores Cleary RN - 10/10/2023 1:07 PM CST Anticoagulation Clinic INR RESULTS: INR (no units) Date Value 10/10/2023 2.70 (A) DOSE PLAN: 4 mg on 10/10. HOLDING 10/11-10/15. Then resume 4 mg Mon, Wed, Fri; 2 mg all other days DOSE CHANGE: No change NEXT INR: 10/23/2023 INR results not reviewed with patient. INR is within patient's goal range and dosing instructions have not been changed. AVS not mailed due to timeframe of return. ENTIONS RESERVATIONIST documented in this encounter Plan of Treatment Upcoming Encounters Date Type Department Care Team (Late st Contact Info) Description 10/31/2023 11:00 AM CONVENTIONS RESERVATIONIST Office Visit [place] [address] [place] [address] Hali Soriano, WEIGH AND CHARGE WORKER [address] [place] [address] documented as of this encounter Procedures Procedure Name Priority Date/Time Associated Diagnosis Comments PROTIME-INR Routine 10/10/2023 documented in this encounter Results * (ABNORMAL) Protime-INR (10/10/2023) INR 2.70(A) 0.9 - 1.1 HOME HEALT H POINT OF CARE TESTING Protime HOME HEALT H POINT OF CARE TESTING Blood (Blood, Venous) Narrative Resulting Agency Comment [facility] fax Historical Provider LAB BLOOD ORDERAB LES HOME HEALTH POINT OF CARE TESTING documented in this encounter Visit Diagnoses Diagnosis 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
--- OUTSIDE RECORDS SUMMARY | 2023-10-28 13:41 | XMS_ITS | Clinical Summary ---
Author Name Unknown Organization [facility] Address [address] [place] [address] Care Team Providers Care Heavy Duty Diesel Mechanic Name Role Phone Elsewhere, Pcp Primary Care Provider Unavailabl e Source Comments Patient records contain information from all sites at [facility]. For routine questions regarding patient records, call [phone] during business hours, M-F 8:00 AM - 5:00 PM Central Time. Record requests for emergency care only can be directed to [phone] at any time.[facility] Allergies Active Allergy Reactions Criticality Noted Date Comments Bee Venom Protein (Honey Bee) Other (see comments) High 10/12/2004 No reaction noted Penicillins Other (see comments) High 11/22/2016 Delirium, questionable anaphylactic reaction Other reaction(s): *Unknown - Pt Doesn't Remember, Other (see comments) Delirium, questionable anaphylactic reaction Medications Medication Sig Dispensed Refills Start Date End Date Status oxybutynin (for_DITROPAN) 5 mg tablet Take 1 tablet by mouth 3 (three) times a day. 0 11/19/2016 Active lactulose (for_CHRONULAC) 10 gram/15 mL (15 mL) solution Take 10 g by mouth 3 (three) times a day. 0 11/19/2016 Active acetaminophen (for_TYLENOL) 500 mg tablet Take 1,000 mg by mouth every 6 (six) hours as needed for pain or fever. Do not exceed acetaminophen 4000 mg per day. 0 Active metoprolol tartrate (LOPRESSOR) 25 mg tablet Take 25 mg by mouth daily. 0 Active warfarin (COUMADIN) 2.5 mg tablet Take 2.5 mg by mouth. Take as directed per After Visit Summary. 2.25-5mg 0 Active multivitamin (multivitamin) tablet Take 1 tablet by mouth daily. 0 Active citalopram (CeleXA) 20 mg tablet daily. Take 1/2 a day for the first ten days and then one a day thereafter for depression 0 08/11/2019 Active Active Problems Problem Noted Date Diagnosed Date Contusion Arm Initial Left 12/25/2017 Anemia 12/25/2017 Depression/Mindy/Bipolar NOS 12/25/2017 Confusion 12/24/2017 Pneumonia 12/24/2017 Sepsis NOS 12/24/2017 Acute Respiratory Failure With Hypoxia 8 Tachycardia Sinus 12/24/2017 Alkalosis Respiratory 12/24/2017 Hypokalemia 12/24/2017 Edema Upper Extremity 12/24/2017 Urinary Tract Infection Site Not Specified 12/23 Urinary Tract Infection Site Not Specified 12/23 Thrombosis Deep Vein Family History 12/10/2017 Thrombosis Deep Vein Family History 12/10/2017 Embolus Pulmonary 11/20/2017 Depression Major Recurrent Moderate 08/11/2015 Overview: Depression Major Recurrent Moderate Paraparesis Spastic 01/31/2013 Multiple Sclerosis 10/19/2004 Immunizations Name Administration Dates Next Due Influenza Split 11/03/2009 Influenza, Unspecified 07/11/2016,07/29/2015 SARS-COV-2 (COVID-19) - PFIZER (12 years or olde r) 12/29/2020,12/08/2020 Tdap 11/03/2002 influenza high dose (65 years or older) (PF) 10/2016 Family History Medical History Relation Name Comments Coronary artery disease Father Aaron Hinds Hypertension Mother Cornell Hinds Relation Name Status Comments Father Aaron Hinds Mother Cornell Hinds Social History Tobacco Use Types Packs/Day Years Used Date Smoking Tobacco: Former Cigarettes 0 Smokeless Tobacco: Former Chew Alcohol Use Standard Drinks/Week Comments No 0 (1 standard drink = 0.6 oz pur e alcohol) Social Connection and Isolation Panel [NHANES] A nswer Date Recorded Frequency of Communication with Friends and Fami ly Not on file 08/26/2019 Frequency of Social Gatherings with Friends and Family Once a week 08/26/2019 Attends Mosque Services Never 08/26 Active Member of Clubs or Organizations No 08/26/2019 Attends Club or Organization Meetings Not on acacia e 08/26/2019 Marital Status 08/26/2019 AUDIT-C Answer Date Recorded Frequency of Alcohol Consumption Never 08/26/2019 Average Number of Drinks Not on file 019 Frequency of Binge Drinking Not on file 08/02 Overall Financial Resource Strain (CARDIA) Answe r Date Recorded Difficulty of Paying Living Expenses Not very sc[address] 08/26/2019 [facility] - Occupational Stress Questionnaire Answer Date Recorded Feeling of Stress Only a little 08/26/2019 Hunger Vital Sign Answer Date Recorded Worried About Running Out of Food in the Last Ye ar Never true 08/26/2019 Ran Out of Food in the Last Year Never true 08/26/2019 PRAPARE - Transportation Answer Date Re corded Lack of Transportation (Medical) No 08/26/2019 Lack of Transportation (Non-Medical) No 08/26/2019 Nutrition Answer Date Recorded Nutrition: EVOO Fat Source Unknown 11/29 Nutrition: Servings of Fruits/Vegetables per Day Not on file 11/29/2020 Dental Answer Date Recorded Dental: Regular Dentist Unknown 11/30/19 21 Education Answer Date Recorded What is the highest level of school you have completed or the highest degree you have received? 12th grade 08/26/2019 Sex and Gender Information Value Date Recorded Sex Assigned at Not on file Gender Identity Not on file Sexual Orientation Not on file Last Filed Vital Signs Vital Sign Reading Time Taken Comments Blood Pressure 112/83 08/26/2019 10:06 AM FURNACE OPERATOR Pulse 90 08/26/2019 10:06 AM FURNACE OPERATOR Temperature 36.2 ??C (97.2 ??F) 01/03/2018 5:35 PM CD T Respiratory Rate 18 01/03/2018 7:37 PM CDT Oxygen Saturation 95% 01/03/2018 7:37 PM CDT Inhaled Oxygen Concentration - - Weight 85 kg (187 lb 6.3 oz) 08/26/2019 10:06 AM FURNACE OPERATOR Height 182 cm (5' 11.65) 08/26/2019 10:06 AM CS T Body Mass Index 25.66 08/26/2019 10:06 AM FURNACE OPERATOR Plan of Treatment Health Maintenance Due Date Last Done Comments CT Colonography 1960 Cologuard 1960 Depression Monitoring (PHQ-9) 1960 HIV Screening 1960 Hepatitis C Screening 1960 Zoster Vaccines (1 of 2) 2008 Colonoscopy 11/22/2021 11/22/2016, 01/2009 (Performed elsewhere) Colorectal Cancer Surveillance 11/22/2021 Pneumococcal vaccine (65+ ye ars) (3 of 3 - PPSV23 or PCV20) 2023 08/27/2017, 08/06/2014 COVID-19 Vaccine (4 - 2022-2 4 season) 2023 09/09/2021, 12/29/2020, 12/08/2020 Influenza Vaccine (#1) 2023 , 06/24/2021, 07/12/2020, Additional history exists Fall Risk Screen (Annual) 10/01/2023 DTaP,Tdap,and Td Vaccines (4 - Td or Tdap) 02/27/2024 02/26/2014, 04/21/2007, 11/03/2002 Fasting Glucose for Diabetes Screening 12/27/2025 12/27/2022, 11/03/2021, 01/03/2018, Additional history exists Medical Devices Implanted Type Area Barrel Roller Operator Device Identifier Shelf Expiration Date Model / Serial / Lot Synthes Nail-[place] Lock 4.9x 40 - [place] [id number] Implanted:Qty: 1 on 10/12/2000 Hardware e.g. pins/screws/ rods Depuy Synthes Description:Device Manufactu rer - Synthes. Device Status Text - [id number]. Biomet-Screw Luz Maria Part Thrd 4.0x46m - [place] [id number] Implanted:Qty: 1 on 06/11/2002 Hardware e.g. pins/screws/ rods BioMet Description:Device Manufactu rer - [employer] Device Status Text - [id number]. Advance Directives For more information, please contact: [phone] Latest Code Status on File Code Status Date Activated Date Inactivated Comments Full Code 12/23/2017 7:03 PM 12/27/2017 3:41 PM Question Answer Comments Full Code: Not Discussed Due to: Patient not available Care Teams Heavy Duty Diesel Mechanic Relationship Specialty Start Date End Date Elsewhere, Pcp PCP - General Family Medicine 09/06/17
--- OUTSIDE RECORDS SUMMARY | 2023-10-28 13:41 | XMS_ITS | Referral Summary ---
Author Name Unknown Organization [facility] Address [address] [place] [address] Care Team Providers Care Vp Organizational Development Name Role Phone Elsewhere, Pcp Primary Care Provider Unavailabl e Source Comments Patient records contain information from all sites at [facility]. For routine questions regarding patient records, call [phone] during business hours, M-F 8:00 AM - 5:00 PM Central Time. Record requests for emergency care only can be directed to [phone] at any time.[facility] Allergies Active Allergy Reactions Criticality Noted Date [...] dose (65 years or older) (PF) 10/2016 Social History Tobacco Use Types Packs/Day Years [...] and Family Once a week 08/26/2019 Attends [facility] Never 08/26 Active Member of Clubs [...] Living Expenses Not very sc[address] 08/26/2019 [facility] of Occupat ional Health - Occupational Stress [...] Comments Blood Pressure 112/83 08/26/2019 10:06 AM WIND TURBINE ERECTOR Pulse 90 08/26/2019 10:06 AM WIND TURBINE ERECTOR Temperature 36.2 ??C (97.2 ??F) 01/03/2018 5:35 PM CD T Respiratory Rate 18 01/03/2018 7:37 PM CDT Oxygen Saturation 95% 01/03/2018 7:37 PM CDT Inhaled Oxygen Concentration - - Weight 85 kg (187 lb 6.3 oz) 08/26/2019 10:06 AM WIND TURBINE ERECTOR Height 182 cm (5' 11.65) 08/26/2019 10:06 AM CS T Body Mass Index 25.66 08/26/2019 10:06 AM WIND TURBINE ERECTOR Plan of Treatment Not on file Medical Devices Implanted Type Area Dining Room Hostess Device Identifier Shelf Expiration Date Model / Serial / Lot Synthes Nail-[place] Lock 4.9x 40 - [place] [id number] Implanted:Qty: 1 on 10/12/2000 Hardware e.g. pins/screws/ rods Depuy [email or web address] Description:Device Manufactu rer - Synthes. Device Status Text - [id number]. Biomet-Screw Luz Maria Part Thrd 4.0x46m - [place] [id number] Implanted:Qty: 1 on 06/11/2002 Hardware e.g. pins/screws/ rods BioMet Description:Device Manufactu rer - [employer] Device Status Text - [id number]. Advance Directives For more information, please contact: [phone] Latest Code Status on File Code Status Date Activated Date Inactivated Comments Full Code 12/23/2017 7:03 PM 12/27/2017 3:41 PM Question Answer Comments Full Code: Not Discussed Due to: Patient not available Care Teams Vp Organizational Development Relationship Specialty Start Date End Date Elsewhere, Pcp PCP - General Family Medicine 09/06/17
--- OUTSIDE RECORDS SUMMARY | 2023-10-28 13:41 | XMS_ITS | Encounter Summary ---
Author Name Unknown Organization [facility] er Address [address] [place] [address] Care Team Providers Care Tanning Salon Attendant Name Role Phone Hali Soriano APRN Primary Care Provider Reason for Visit * Reason Onset Date Comments Lab orders needs 10/22/2023 Encounter Details Date Type Department Care Team (Late st Contact Info) Description 10/22/2023 Telephone [place] [address] [place] [address] Hali Soriano APRN [address] [place] [address] [id number] Lab orders needs Social History Tobacco Use Types Packs/Day Years [...] often do you attend chur ch or rastafarian services? 1 to 4 times per year 09/19/2023 Do you belong to any clubs o r organizations such as jew groups, unions, fraternal [...] Date Recorded PHQ-9 Total Score 2 09/19/2023 [facility] - [facility] Questionnaire Answer Date Recorded [...] slept in a care home (including now)? No 09/19/2023 Sex and Gender Information Value Date Recorded Sex Assigned at Not on file Gender Identity Not on file Sexual Orientation Not on file documented as of this encounter Miscellaneous Notes * Telephone Encounter - Vidhya Bain LPN - 10/22/2023 4:16 PM CST Noted [facility] * Telephone Encounter - Vidhya Bain LPN - 10/22/2023 9:27 AM CST The patient is on their way in and there are no orders for the patient. Please advise. [facility] documented in this encounter Plan of Treatment Upcoming Encounters Date Type Department Care Team (Late st Contact Info) Description 10/31/2023 11:00 AM [facility] Office Visit [place] [address] [facility] [address] [place] [address] Hali Soriano, APPLICATION ANALYST [address] [place] [address] documented as of this encounter Results * (ABNORMAL) PSA (10/23/2023 10:11 AM [facility]) Total PSA 5.9(H) 0.0 - 5.1 ng/mL 10/24/2023 3:[address] [facility] Comment: The results from this or any other diagnostic test should be used and interpreted only in the context of the overall clinical picture. Test results cannot be interpreted as absolute evidence for the presence or absence of malignant disease. Values obtained with different assay methods or kits may be different and cannot be used interchangeably. The testing method is an immunometric assay manufactured by [employer] and performed on the iPinYou0 system. Biotin levels in serum remain elevated for up to 24 hours after oral or intravenous biotin administration and may interfere with this assay to produce unreliable results. Heterophilic antibodies in serum or plasma samples may cause interference in immunoassays. ??Exposure to animal antigens, either in the environment or as part of treatment or imaging procedures, may have circulating anti-animal antibodies present. These antibodies may interfere with the assay reagents to produce unreliable results. ??Results which are inconsistent with clinical observations indicate the need for additional testing. Blood (Blood, Venous) 10/23/2023 10:11 AM [facility] 10/24/2023 12:40 PM [facility] Wade Donovan MD LAB BLOOD ORDERABLES [facility] [address] [place] [address] * Basic metabolic panel (10/23/2023 10:11 AM [facility]) Sodium 140 135 - 145 mEq/L 10/24/2023 1:[address] [facility] Potassium 4.0 3.5 - 5.1 mEq/L 10/24/2023 1:[address] [facility] Chloride 107 98 - 107 mEq/L 10/24/2023 1:[address] [facility] CO2 28 22 - 31 mmol/L 10/24/2023 1:[address] [facility] Creatinine 0.80 0.60 - 1.40 mg/dL 10/24/2023 1:[address] [facility] BUN 10 5 - 25 mg/dL 10/24/2023 1:[address] [facility] Glucose 94 70 - 100 mg/dL 10/24/2023 1:[address] [facility] Calcium, Total,S 8.9 8.4 - 10.2 mg/dL 10/24/2023 1:[address] [facility] Anion Gap 5 4 - 13 10/24/2023 1:[address] [facility] Comment: The anion gap is calculated with the following formula: AGAP = Na ? (Cl + CO2). Fasting? Yes 10/23/2023 10:11 AM [facility] Blood (Blood, Venous) 10/23/2023 10:11 AM [facility] 10/24/2023 12:40 PM [facility] Wade Donovan MD LAB BLOOD ORDERABLES Performing Organization Address City/State/[facility] Co de Phone Number [facility] [address] [place] [address] [facility] [address] [place] [id number] * (ABNORMAL) CBC ([employer]) (10/23/2023 10:11 AM [facility]) WBC 6.5 3.5 - 10.5 K/uL 10/23/2023 10:19 AM [facility] RBC 5.35 4.30 - 5.70 M/uL 10/23/2023 10:19 AM [facility] Hemoglobin 15.2 13.5 - 17.5 g/dL 10/23/2023 10:19 AM [facility] Hematocrit 48.2 38.0 - 50.0 % 10/23/2023 10:19 AM [facility] Platelets 292 150 - 450 K/uL 10/23/2023 10:19 AM [facility] MCV 90.1 81.2 - 95.1 fL 10/23/2023 10:19 AM [facility] MCH 28.4 26.0 - 32.0 pg 10/23/2023 10:19 AM [facility] MCHC 31.5(L) 32.0 - 36.0 g/dL 10/23/2023 10:19 AM [facility] RDW 15.3 11.8 - 15.6 % 10/23/2023 10:19 AM [facility] Blood (Blood, Venous) 10/23/2023 10:11 AM [facility] 10/23/2023 10:11 AM [facility] aWde Donovan MD LAB BLOOD ORDERABLES [facility] [address] [place] [address] * (ABNORMAL) Lipid panel (10/23/2023 10:11 AM [facility]) Cholesterol 135 0 - 199 mg/dL 10/24/2023 1:[address] [facility] Comment: Recommended by National Cholesterol Education Program (ATP III) -------- Cholesterol Ranges -------- <200 ?Desirable 200-239 ? Borderline high >=240 ? High Triglycerides 95 0 - 149 mg/dL 10/24/2023 1:[address] [facility] Comment: -------- TRIG Ranges -------- <150 ?Normal 150-199 ? Borderline high 200-499 ? High >=500 ? Very high HDL 30(L) 40 - 250 mg/dL 10/24/2023 1:[address] [facility] Comment: -------- HDL Ranges -------- <40 ?Low 40-59 ?Normal >=60 ? Optimal LDL Calculated 86 0 - 99 mg/dL 10/24/2023 1:[address] [facility] Comment: -------- LDL Ranges -------- <100 ? Optimal 100-129 ?Near optimal/above optimal 130-159 ?Borderline high 160-189 ?High >=190 ?Very high Blood (Blood, Venous) 10/23/2023 10:11 AM [facility] 10/24/2023 12:40 PM [facility] Wade Donovan MD LAB BLOOD ORDERABLES [facility] [address] [place] [address] documented in this encounter Visit Diagnoses Diagnosis Hyperlipidemia LDL goal <100- Primary Other and unspecified hyperlipidemia delivery director current use of anticoagulant Retention of urine Unspecified retention of urine Prostate cancer screening Special screening for malignant neoplasm of prostate documented in this encounter Additional Health Concerns Infection Onset Date Last Indicated Resolved Time MSSA 08/02/2023 08/02/2023 documented as of this encounter Care Teams Tanning Salon Attendant Relationship Specialty Start Date End Date Hali Soriano, APPLICATION ANALYST [address] [place] [address] PCP - General Family Medicine 08/02/23 documented as of this encounter
--- OUTSIDE RECORDS SUMMARY | 2023-10-28 13:41 | XMS_ITS | Clinical Summary ---
Author Name Unknown Organization [facility] er Address [address] [place] [address] Care Team Providers Care Security Chief [employer] Name Role Phone Hali Soriano APRN Primary Care Provider Allergies Active Allergy Reactions Criticality Noted Date Comments Bee Venom Penicillin V Potassium Penicillins Medium 11/22/2016 Other reaction(s): *Unknown - Pt Doesn't Remember, Other (see comments) Delirium, questionable anaphylactic reaction Medications Medication Sig Dispensed Refills Start Date End Date Status acetaminophen (TYLENOL) 500 MG tablet Take 1 tablet (500 mg total) by mouth if needed 0 Active Sennosides (SENNA LAXATIVE) 25 MG tabletIndications: Constipation, unspecified constipation type May take one tab 1-2 times per day if needed for constipation. 180 each 3 10/16/19 20 Active Catheters (Self-Cath Straight Tip) miscIndications:Ne urogenic bladder USE DIRECTED 120 each 11 07/25/20 21 Active atorvastatin (LIPITOR) 20 MG tabletIndications: Mixed hyperlipidemia TAKE ONE TABLET BY MOUTH AT BEDTIME, START WITH ONE-HALF TABLET BY MOUTH FOR 8 DAYS THEN TAKE ONE TABLET NIGHTLY 90 tablet 3 10/30/19 23 Active olopatadine (PATADAY) 0.2 % ophthalmic solution Administer 1 drop into both eyes daily 0 Active oxybutynin (DITROPAN) 5 MG tabletIndications: Detrusor instability Take 1 tablet (5 mg total) by mouth 2 (two) times a day 180 tablet 3 12/28/19 23 Active baclofen (LIORESAL) 10 MG tabletIndications: Multiple sclerosis (HCC) TAKE ONE TABLET BY MOUTH THREE TIMES A DAY FOR MULTIPLE SCLEROSIS 270 tablet 3 07/26/20 23 Active nitrofurantoin, macrocrystal-monoh ydrate, (Macrobid) 100 MG capsuleIndications :Cystitis Take one pill twice a day for ten days 20 capsule 0 08/02/20 23 Active nitrofurantoin, macrocrystal-monoh ydrate, (Macrobid) 100 MG capsuleIndications :Cystitis Take one capsule twice a day for ten days or as directed 20 capsule 2 09/19/20 23 Active triamcinolone (Triderm) 0.1 % creamIndications:S eborrheic dermatitis of scalp May apply a small amount to affected area 1-2 times daily as needed. Avoid face and groin. 30 g 2 09/20/20 23 024 Active nitrofurantoin, macrocrystal-monoh ydrate, (Macrobid) 100 MG capsuleIndications :Cystitis Take one pill ONCE a day to help prevent a UTI 30 capsule 0 09/26/20 23 Active warfarin (COUMADIN) 2 MG tabletIndications: roasterman current use of anticoagulant,Othe r pulmonary embolism without acute cor pulmonale, unspecified chronicity (HCC) TAKE ONE TABLET BY MOUTH EVERY SUNDAY AND SUNDAY, AND TWO TABLETS BY MOUTH ALL OTHER DAYS AND DIRECTED BY ANTICOAGULATION CLINIC. 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 Dry skin dermatitis 11/03/2021 Overview: Discussed use of cerave cream on moist skin after showering. 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 Paraplegia 10/04/2015 Moderate episode of recurrent major depressive d isorder 08/11/2015 Overview: Overview: Depression Major Recurrent Moderate Family history of malignant neoplasm of gastrointestinal tract 02/26/2014 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 Multiple sclerosis 10/19/2004 Encounters Date Type Department Care Team Description 10/23/2023 10:00 AM TOLL TICKET CLERK Lab [place] [address] [address] Prostate cancer screening; Retention of urine; roasterman current use of anticoagulant; Hyperlipidemia LDL goal <100 10/22/2023 Anticoagulation - Warfarin Visit Anticoag/Interna l [facility] [address] [place] [phone] Iliana Doyle RN roasterman current use of anticoagulant (Primary Dx); Other pulmonary embolism without acute cor pulmonale, unspecified chronicity (HCC) 10/22/2023 Telephone [place] [address] [address] Hali Soriano, FOOTWEAR MACHINERY INSTRUCTOR Lab orders needs 10/17/2023 Telephone [place] [address] [address] Hali Soriano, FOOTWEAR MACHINERY INSTRUCTOR OTHER 10/15/2023 Refill [place] [address] [address] Adarsh Carpenter MD Mixed hyperlipidemia 10/10/2023 Anticoagulation - Warfarin Visit Anticoag/Interna l [facility] Third [facility] [address] [place] [address] Dolores Cleary RN roasterman current use of anticoagulant (Primary Dx); Other pulmonary embolism without acute cor pulmonale, unspecified chronicity (HCC) 10/08/2023 Anticoagulation - Warfarin Visit [facility] - Third Floor [address] [place], [place] [phone] Iliana Doyle, RN 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 current use of anticoagulant (Primary Dx); Other pulmonary embolism without acute cor pulmonale, unspecified chronicity (HCC) 10/08/2023 Telephone [facility] - Third Floor [address], [place] [phone] Elli Campbell PA-C periprocedural recommendations 10/08/2023 Refill [facility] - Third Floor [address], [place] [address] Elli Campbell PA-C roasterman current use of anticoagulant; Other pulmonary embolism without acute cor pulmonale, unspecified chronicity (HCC) 10/03/2023 Anticoagulation - Warfarin Visit [facility] - Third Floor [address], [place] [address] Anna Betts RN 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 current use of anticoagulant (Primary Dx); Other pulmonary embolism without acute cor pulmonale, unspecified chronicity (HCC) 10/03/2023 Telephone [facility] - Third Floor [address], [place] [address] Elli Campbell PA-C 10/03/2023 Telephone [facility] [address] [facility] 20 [place] [address] Adarsh Carpenter MD 09/23/2023 Refill [place] [address] [facility] 20 [place] [address] Adarsh Carpenter MD Cystitis 09/20/2023 Telephone [facility] [address] [facility] [address] [place] [address] Adarsh Carpenter MD 09/19/2023 4:30 PM TOLL TICKET CLERK Lab [place] [address] [facility] [address] [place] [address] 09/19/2023 3:00 PM TOLL TICKET CLERK Consult [facility] [address] [facility] [address] [place] [address] Adarsh Carpenter MD Scalp lump (Primary Dx); Preop examination; Cystitis; Kidney stone; Bladder stone; Neurogenic bladder; Multiple sclerosis (HCC); History of pulmonary embolism; Current use of skilled nursing anticoagulation; Quadriparesis (HCC); Seborrheic dermatitis of scalp 09/19/2023 Anticoagulation - Warfarin Visit Anticoag/Interna l [facility] - Third Floor [address] [place] [address] Iliana Doyle RN roasterman current use of anticoagulant (Primary Dx); Other pulmonary embolism without acute cor pulmonale, unspecified chronicity (HCC) 09/05/2023 Anticoagulation - Warfarin Visit [facility]/Interna l [facility] - Third Floor [address] [place] [address] Anna Betts RN roasterman current use of anticoagulant (Primary Dx); Other pulmonary embolism without acute cor pulmonale, unspecified chronicity (HCC) 08/24/2023 Orders Only [address] [address] Adarsh Carpenter MD Cystitis (Primary Dx) 08/24/2023 Anticoagulation - Warfarin Visit [facility]/Interna l [facility] - Third Floor [address] [place] [address] Dolores Cleary RN roasterman current use of anticoagulant (Primary Dx); Other pulmonary embolism without acute cor pulmonale, unspecified chronicity (HCC) 08/21/2023 Telephone [place] [address] [address] Adarsh Carpenter MD 08/17/2023 Telephone [place] [address] [address] Adarsh Carpenter MD UA results 08/16/2023 1:00 PM TOLL TICKET CLERK Lab [place] [address] [address] Frequency of micturition 08/08/2023 Anticoagulation - Warfarin Visit [facility]/Interna l [facility] - Third Floor [address] [place] [address] Gregoria Bustamante RN roasterman current use of anticoagulant (Primary Dx) 08/04/2023 Orders Only [place] [address] [facility] 20 [place] [address] Adarsh Carpenter MD 08/02/2023 10:30 AM CDT Lab [place] [address] [address] Frequency of micturition (Primary Dx); Abnormal urine odor; History of UTI 08/02/2023 Orders Only [place] [address] [facility] 20 [place] [address] Adarsh Carpenter MD Cystitis (Primary Dx); Frequency of micturition 08/02/2023 Telephone [place] [address] [facility] 20 [place] [address] Adarsh Carpenter MD from Last 3 Months Immunizations Name Administration Dates Next Due COVID-19, mRNA, LNP-S, PF, 3 0mcg/0.3mL dose Pfizer 12/29/2020,12/08/2020 Flu Vaccine 50-64yrs Flublok (Egg Free) 07/12/2020 Flu Vaccine High Dose 65yrs and Older IM 08/01/2017 INFLUENZA QUADRIVALENT MDV (IM) 07/29/2015 Influenza 6mo-64yrs Quad Pre servative Free IM 08/30/2022,06/24/2021,08/27/2017,07/11,07/29/2015 Influenza Split 11/03/2009 Influenza TIV (IM) 08/06/2014 Influenza, Unspecified 08/01/2017,2015,07/29/2015,01/31(Deferred: Patient Refused),11/03/2009 Pneumococcal Conjugate 13-Valent 08/27/2017 Pneumococcal Polysaccharide 08/06/2014 Tdap 02/26/2014,11/03/2002 Family History Medical History Relation Comments defects Brother 3 Mental retardati on Heart attack Father COPD Mother Colon cancer [...] 09/19/2023 How often do you attend chur or moravian services? 1 to 4 times per year 09/19/2023 Do you belong to any clubs o r organizations such as orthodoxy groups, unions, fraternal [...] Date Recorded PHQ-9 Total Score 2 09/19/2023 [facility] - Occupational [...] or slept in a correction (including now)? No 09/19/2023 Sex and Gender Information Value Date Recorded Sex Assigned at Not on file Gender Identity Not on file Sexual Orientation Not on file Last Filed Vital Signs Vital Sign Reading Time Taken Comments Blood Pressure 122/89 09/19/2023 2:58 PM TOLL TICKET CLERK Pulse 86 09/19/2023 2:48 PM TOLL TICKET CLERK Temperature 37 ??C (98.6 ??F) 09/19/2023 2:48 PM TOLL TICKET CLERK Respiratory Rate 16 09/19/2023 2:48 PM TOLL TICKET CLERK Oxygen Saturation 92% 09/19/2023 2:48 PM TOLL TICKET CLERK Inhaled Oxygen Concentration - - Weight 84.8 kg (186 lb 15.2 oz) 08/11/2019 3:23 PM TOLL TICKET CLERK Height 185.4 cm (6' 0.99) 08/11/2019 3:23 PM CS T Body Mass Index 24.67 08/11/2019 3:23 PM TOLL TICKET CLERK Plan of Treatment Upcoming Encounters Date Type Department Care Team (Late st Contact Info) Description 10/31/2023 11:00 AM TOLL TICKET CLERK Office Visit [place] [address] [facility] 20 [place] [address] Hali Soriano, FOOTWEAR MACHINERY INSTRUCTOR [address] [place] [phone] Health Maintenance Due Date Last Done Comments CT Colonography 1958 FIT-DNA 1958 Sigmoidoscopy 1960 iFOBT 1958 Zoster Vaccines (1 of 2) 2008 Medicare Annual Wellness Visit (AWV) 04/24/2023 04/24/2022, 08/11/2019, 03/06/2018 Pneumococcal Vaccine: 65+ Years (3 of 3 - PPSV23 or PCV20) 2023 08/27/2017, 08/06/2014 COVID-19 Vaccine (4 - season) 2023 09/09/2021, 12/29/2020, 12/08/2020 Influenza Vaccine (#1) 2023 2, 06/24/2021, 07/12/2020, Additional history exists DTaP,Tdap,and Td Vaccines (3 - Td or Tdap) 02/27/2024 02/26/2014, 11/03/2002 Fall Risk Performed 09/19/2024 09/19/2023 Colonoscopy 06/30/2025 09/30/2017, 11/22/2016 Colorectal Cancer Screening 06/30/2025 HPV Vaccines Aged Out No longer eligi ble based on patient's age to complete this topic Procedures Procedure Name Priority Date/Time Associated Diagnosis Comments ESTIMATED GLOMERULAR FILTRATION RATE (EGFR) Routine 10/23/2023 10:11 AM TOLL TICKET CLERK Retention of urine LIPID PANEL Routine 10/23/2023 10:11 AM TOLL TICKET CLERK Hyperlipidemia LDL goal <100 CBC Routine 10/23/2023 10:11 AM TOLL TICKET CLERK 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 current use of anticoagulant BASIC METABOLIC PANEL Routine 10/23/2023 10:11 AM TOLL TICKET CLERK Retention of urine PSA Routine 10/23/2023 10:11 AM TOLL TICKET CLERK Prostate cancer screening PROTIME-INR Routine 10/22/2023 PROTIME-INR Routine 10/10/2023 PROTIME-INR Routine 10/03/2023 ESTIMATED GLOMERULAR FILTRATION RATE (EGFR) Routine 09/19/2023 3:57 PM TOLL TICKET CLERK Preop examination CBC BRANCH OFFICE W/DIFF Routine 09/19/2023 3:57 PM TOLL TICKET CLERK Preop examination BASIC METABOLIC PANEL Routine 09/19/2023 3:57 PM TOLL TICKET CLERK Preop examination PROTIME-INR Routine 09/19/2023 PROTIME-INR Routine 09/05/2023 PROTIME-INR Routine 08/22/2023 URINALYSIS-MICROSCOP IC EXAM (REFLEXED) Routine 08/16/2023 1:09 PM TOLL TICKET CLERK Frequency of micturition URINALYSIS WITH REFLEX MICROSCOPIC Routine 08/16/2023 1:09 PM TOLL TICKET CLERK Frequency of micturition URINE CULTURE Routine 08/16/2023 1:09 PM TOLL TICKET CLERK Frequency of micturition PROTIME-INR Routine 08/08/2023 URINALYSIS-MICROSCOP IC EXAM (REFLEXED) Routine 08/02/2023 10:38 AM CDT Frequency of micturition Abnormal urine odor URINALYSIS WITH REFLEX MICROSCOPIC Routine 08/02/2023 10:38 AM CDT Frequency of micturition Abnormal urine odor URINE CULTURE Routine 08/02/2023 10:34 AM CDT Frequency of micturition History of UTI from Last 3 Months Results * Estimated Glomerular Filtration Rate (eGFR) (10/23/2023 10:11 AM TOLL TICKET CLERK) Only the most recent of2 resultswithin the time period is included. Estimated Glomerular Filtration Rate (eGFR) >60 10/24/2023 1:56 PM TOLL TICKET CLERK [facility] Comment: GFR calculated from serum creatinine value Chronic Kidney Disease less than 60 mL/min/1.73 m2 Kidney Failure less than 15 mL/min/1.73 m2 Note: effective 09/27/2022: 2020 CKD-EPI Equation used 10/23/2023 10:1 1 AM TOLL TICKET CLERK 10/23/2023 10:11 AM TOLL TICKET CLERK Wade Donovan MD LAB BLOOD ORDERABLES [facility] [address] [place] [phone] * (ABNORMAL) CBC ([employer]) (10/23/2023 10:11 AM TOLL TICKET CLERK) WBC 6.5 3.5 - 10.5 K/uL 10/23/2023 10:19 AM TOLL TICKET CLERK [facility] RBC 5.35 4.30 - 5.70 M/uL 10/23/2023 10:19 AM TOLL TICKET CLERK [facility] Hemoglobin 15.2 13.5 - 17.5 g/dL 10/23/2023 10:19 AM TOLL TICKET CLERK [facility] Hematocrit 48.2 38.0 - 50.0 % 10/23/2023 10:19 AM [facility] Platelets 292 150 - 450 K/uL 10/23/2023 10:19 AM [facility] [place] MCV 90.1 81.2 - 95.1 fL 10/23/2023 10:19 AM [facility] [place] MCH 28.4 26.0 - 32.0 pg 10/23/2023 10:19 AM [facility] [place] MCHC 31.5(L) 32.0 - 36.0 g/dL 10/23/2023 10:19 AM [facility] [place] RDW 15.3 11.8 - 15.6 % 10/23/2023 10:19 AM [facility] [place] Blood (Blood, Venous) 10/23/2023 10:11 AM TOLL TICKET CLERK 10/23/2023 10:11 AM TOLL TICKET CLERK Wade Donovan MD LAB BLOOD ORDERABLES [facility] BILL [facility] [address] [place] [address] * (ABNORMAL) PSA (10/23/2023 10:11 AM TOLL TICKET CLERK) Total PSA 5.9(H) 0.0 - 5.1 ng/mL 10/24/2023 3:46 PM TOLL TICKET CLERK [facility] Comment: The results from this or [...] method is an immunometric assay manufactured by [employer] and performed on the [employer] 5600 system. Biotin levels in serum remain elevated [...] testing. Blood (Blood, Venous) 10/23/2023 10:11 AM TOLL TICKET CLERK 10/24/2023 12:40 PM TOLL TICKET CLERK Wade Donovan MD LAB BLOOD ORDERABLES [facility] [address] [place] [address] * (ABNORMAL) Lipid panel (10/23/2023 10:11 AM TOLL TICKET CLERK) Cholesterol 135 0 - 199 mg/dL 10/24/2023 1:56 PM [facility] Comment: Recommended by National Cholesterol Education Program (ATP III) -------- Cholesterol Ranges -------- <200 ?Desirable 200-239 ? Borderline high >=240 ? High Triglycerides 95 0 - 149 mg/dL 10/24/2023 1:56 PM [facility] Comment: -------- TRIG Ranges -------- <150 ?Normal 150-199 ? Borderline high 200-499 ? High >=500 ? Very high HDL 30(L) 40 - 250 mg/dL 10/24/2023 1:56 PM [facility] Comment: -------- HDL Ranges -------- <40 ?Low 40-59 ?Normal >=60 ? Optimal LDL Calculated 86 0 - 99 mg/dL 10/24/2023 1:56 PM [facility] Comment: -------- LDL Ranges -------- <100 ? Optimal 100-129 ?Near optimal/above optimal 130-159 ?Borderline high 160-189 ?High >=190 ?Very high Blood (Blood, Venous) 10/23/2023 10:11 AM TOLL TICKET CLERK 10/24/2023 12:40 PM TOLL TICKET CLERK Wade Donovan MD LAB BLOOD ORDERABLES Performing Organization Address [facility]/ZIP Co de Phone Number [facility] [address] [place] [address] * Basic metabolic panel (10/23/2023 10:11 AM TOLL TICKET CLERK) Only the most recent of2 resultswithin the time period is included. Sodium 140 135 - 145 mEq/L 10/24/2023 1:56 PM [facility] Potassium 4.0 3.5 - 5.1 mEq/L 10/24/2023 1:56 PM [facility] Chloride 107 98 - 107 mEq/L 10/24/2023 1:56 PM [facility] CO2 28 22 - 31 mmol/L 10/24/2023 1:56 PM [facility] Creatinine 0.80 0.60 - 1.40 mg/dL 10/24/2023 1:56 PM [facility] BUN 10 5 - 25 mg/dL 10/24/2023 1:56 PM [facility] Glucose 94 70 - 100 mg/dL 10/24/2023 1:56 PM [facility] Calcium, Total,S 8.9 8.4 - 10.2 mg/dL 10/24/2023 1:56 PM [facility] Anion Gap 5 4 - 13 10/24/2023 1:56 PM [facility] Comment: The anion gap is calculated with the following formula: AGAP = Na ? (Cl + CO2). Fasting? Yes 10/23/2023 10:11 AM [facility] BILL [employer] Blood (Blood, Venous) 10/23/2023 10:11 AM TOLL TICKET CLERK 10/24/2023 12:40 PM TOLL TICKET CLERK Wade Donovan MD LAB BLOOD ORDERABLES Performing Organization Address [facility]/ZIP Co de Phone Number [facility] [address] [place] [address] [facility] [address] [place] [address] * (ABNORMAL) Protime-INR (10/22/2023) Only the most recent of7 resultswithin the time period is included. INR 1.80(A) 0.9 - 1.1 HOME HEALT H POINT OF CARE TESTING Protime HOME HEALT H POINT OF CARE TESTING Blood (Blood, Venous) Historical Provider LAB BLOOD ORDERAB LES HOME HEALTH POINT OF CARE TESTING * (ABNORMAL) CBC Branch Off w/Diff (09/19/2023 3:57 PM TOLL TICKET CLERK) WBC 5.1 3.5 - 10.5 K/uL 09/19/2023 4:14 PM TOLL TICKET CLERK [facility] RBC 5.73(H) 4.30 - 5.70 M/uL 09/19/2023 4:14 PM TOLL TICKET CLERK [facility] Hemoglobin 16.1 13.5 - 17.5 g/dL 09/19/2023 4:14 PM TOLL TICKET CLERK [facility] Hematocrit 51.5(H) 38.0 - 50.0 % 09/19/2023 4:14 PM TOLL TICKET CLERK [facility] Platelets 231 150 - 450 K/uL 09/19/2023 4:14 PM TOLL TICKET CLERK [facility] MCV 89.9 81.2 - 95.1 fL 09/19/2023 4:14 PM TOLL TICKET CLERK [facility] MCH 28.1 26.0 - 32.0 pg 09/19/2023 4:14 PM TOLL TICKET CLERK [facility] MCHC 31.3(L) 32.0 - 36.0 g/dL 09/19/2023 4:14 PM TOLL TICKET CLERK [facility] RDW 15.7(H) 11.8 - 15.6 % 09/19/2023 4:14 PM TOLL TICKET CLERK [facility] Lymphocytes % 21.9 % 09/19/2023 4:14 PM TOLL TICKET CLERK [facility] Mid-size Cells 13.5 % 09/19/2023 4:14 PM TOLL TICKET CLERK [facility] B[facility] Granulocytes/Mason trophils 64.6 % 09/19/2023 4:14 PM TOLL TICKET CLERK [facility] B[facility] Lymphocytes Absolute 1.1 0.9 - 2.9 K/uL 09/19/2023 4:14 PM TOLL TICKET CLERK [facility] B[facility] MIDS Absolute 0.7 0.4 - 1.5 K/uL 09/19/2023 4:14 PM TOLL TICKET CLERK [facility] B[facility] Granulocytes/Mason trophils Absolute 3.3 1.7 - 7.0 K/uL 09/19/2023 4:14 PM TOLL TICKET CLERK [facility] BILL [facility] Blood (Blood, Venous) 09/19/2023 3:57 PM TOLL TICKET CLERK 09/19/2023 3:57 PM TOLL TICKET CLERK Adarsh Carpenter MD LAB BLOOD ORDERABLES [facility] B[facility] [address] [place] [address] * (ABNORMAL) Urinalysis-Microscopic Exam (08/16/2023 1:09 PM TOLL TICKET CLERK) Only the most recent of2 resultswithin the time period is included. Casts, urine NONE SEEN 0-2 Hyaline /lpf 08/17/2023 1:43 PM [facility] Significant casts, urine NONE SEEN None Seen /lpf 08/17/2023 1:43 PM [facility] RBC, Urine 4-10(A) 0 - 3 /hpf 08/17/2023 1:43 PM [facility] WBC, Urine >100(A) /hpf 08/17/2023 1:43 PM [facility] Comment: Male: ?? 0-3/hpf Female: 0-10/hpf Squamous Epithelial, Urine NONE SEEN Few /lpf 08/17/2023 1:43 PM [facility] Trans Epithelial, Urine NONE SEEN 0 - 3 /hpf 08/17/2023 1:43 PM [facility] Renal Tubular Cells, Urine NONE SEEN 0 - 1 /hpf 08/17/2023 1:43 PM [facility] Bacteria, Urine 2+(A) None Seen - Few /hpf 08/17/2023 1:43 PM TOLL TICKET CLERK [facility] 08/16/2023 1:09 PM TOLL TICKET CLERK 08/17/2023 12:13 PM TOLL TICKET CLERK Adarsh Carpenter MD LAB URINE ORDERABLES [facility] [address] [place] [address] * (ABNORMAL) Urinalysis with reflex microscopic (08/16/2023 1:09 PM TOLL TICKET CLERK) Only the most recent of2 resultswithin the time period is included. Type CLEAN CATCH 08/16/2023 1:18 PM TOLL TICKET CLERK [facility] Color, Urine YELLOW YELLOW 08/16/2023 1:18 PM TOLL TICKET CLERK [facility] Clarity, Urine CLEAR CLEAR 08/16/2023 1:18 PM TOLL TICKET CLERK [facility] Glucose, Urine NEGATIVE NEGATIVE mg/dL 08/16/2023 1:18 PM TOLL TICKET CLERK [facility] Bilirubin, Urine NEGATIVE NEGATIVE 08/16/2023 1:18 PM TOLL TICKET CLERK [facility] Ketones, Urine TRACE(A) NEGATIVE mg/dL 08/16/2023 1:18 PM TOLL TICKET CLERK [facility] Specific [place], Urine 1.025 1.000 ->=1.030 08/16/2023 1:18 PM TOLL TICKET CLERK [facility] Blood, Urine SMALL(A) NEGATIVE 08/16/2023 1:18 PM TOLL TICKET CLERK [facility] pH, Urine 5.5 5.0 - 7.0 08/16/2023 1:18 PM TOLL TICKET CLERK [facility] Protein, Urine 30(A) NEGATIVE-TRA CE mg/dL 08/16/2023 1:18 PM TOLL TICKET CLERK [facility] Urobilinogen, Urine 1.0 0.2 - 1.0 E.U./dL 08/16/2023 1:18 PM TOLL TICKET CLERK [facility] Nitrite, Urine NEGATIVE NEGATIVE 08/16/2023 1:18 PM TOLL TICKET CLERK [facility] Leukocytes, Urine SMALL(A) NEGATIVE 08/16/2023 1:18 PM TOLL TICKET CLERK [facility] Urine (Saenz Insert) 08/16/2023 1:09 PM TOLL TICKET CLERK 08/16/2023 1:10 PM TOLL TICKET CLERK Adarsh Carpenter MD LAB URINE ORDERABLES Performing Organization Address [facility] Co de Phone Number [facility] B[facility] [address] [place] [address] * (ABNORMAL) Urine culture (08/16/2023 1:09 PM TOLL TICKET CLERK) Only the most recent of2 resultswithin the time period is included. Urine Culture Enterococcus faecalis >100,000 cfu/ml (A) 08/19/2023 9:49 AM TOLL TICKET CLERK [facility] Urine (Saenz Insert) 08/16/2023 1:09 PM TOLL TICKET CLERK 08/17/2023 12:13 PM TOLL TICKET CLERK Comment:Urine Culture Narrative Organism Antibiotic Method Susceptibility Enterococcus faecalis Ampicillin <=2 mcg/mL: Susceptible Enterococcus faecalis Ciprofloxacin 2 mcg/mL: Intermediate Enterococcus faecalis Nitrofurantoin <=32 mcg/mL: Susceptible Enterococcus faecalis Penicillin 2 mcg/mL: Susceptible Enterococcus faecalis Vancomycin 2 mcg/mL: Susceptible Adarsh Carpenter MD LAB MICROBIOLOGY - G ENERAL ORDERABLES Performing Organization Address City/[facility]/ZIP Co de Phone Number [facility] [address] [place] [address] from Last 3 Months Additional Health Concerns Infection Onset Date Last Indicated MSSA 08/02/2023 08/02/2023 Advance Directives For more information, please contact: [phone] Documents on File Type Date Recorded Patient Compression Molding Machine Operator Expl anation POLST Order Form 11/14/2019 12:00 AM Care Teams Security Chief Museum Relationship Specialty Start Date End Date Hali Soriano, FOOTWEAR MACHINERY INSTRUCTOR [address] [place] [address] PCP - General Family Medicine 08/02/23
--- OUTSIDE RECORDS SUMMARY | 2023-10-28 13:41 | XMS_ITS | Encounter Summary ---
Author Name Unknown Organization [facility] er Address [address] [place] [address] Care Team Providers Care Commodity Supervisor Name Role Phone Hali Soriano APRN Primary Care Provider Reason for Visit * Reason Comments Med Refill Encounter Details Date Type Department Care Team (Late st Contact Info) Description 10/15/2023 Refill [place] [address] [place] [id number] Adarsh Carpenter MD [address] [place] [address] Mixed hyperlipidemia Social History Tobacco Use Types Packs/Day Years [...] often do you attend chur ch or episcopalian services? 1 to 4 times per year 09/19/2023 Do you belong to any clubs o r organizations such as gnosticism groups, unions, fraternal [...] you are drinking? Patient does not drink 3 Q3: How often do you have si x or more drinks on one occasion? Never 09/19/2023 Overall Financial Resource Strain (CARDIA) Answe r Date Recorded How hard is it for you to pa y for the very basics like food, housing, medical care, and heating? Not very hard 09/19/2023 PHQ-2 Answer Date Recorded PHQ-9 Total Score 2 09/19/2023 [facility] - Occupational [...] or slept in a penitentiary (including now)? No 09/19/2023 Sex and Gender Information Value Date Recorded Sex Assigned at Not on file Gender Identity Not on file Sexual Orientation Not on file documented as of this encounter Miscellaneous Notes * Telephone Encounter - Sofia Denson RN - 10/26/2023 10:58 PM CST Please review in PCP absence. ER MECHANIC * Telephone Encounter - Georgie Case - 10/17/2023 9:17 AM CST Have patient scheduled for Physical ER MECHANIC * Telephone Encounter - Samantha Viveros LPN - 10/17/2023 6:49 AM CST Patient is due for Annual CP appointment (around 12/28/2023). PSR: Please contact patient to assist with scheduling. Upcoming appointment with provider: Visit date not found Last visit in provider department: 09/19/2023 Last visit requested medication was discussed: 11/03/2021 Last Rx: #90 with 3 refills 10/30/2022 Requested Prescriptions Pending Prescriptions Disp Refills atorvastatin (LIPITOR) 20 MG tablet [Pharmacy Med Name: ATORVASTATIN CALCIUM 20MG TABS] 90 tablet 3 Sig: START WITH TAKE ONE-HALF TABLET BY MOUTH AT BEDTIME FOR 8 DAYS, THEN TAKE ONE TABLET BY MOUTH AT BEDTIME Labs: Component Latest Ref Rng 12/27/2022 Cholesterol 0 - 199 mg/dL 148 Triglycerides 0 - 149 mg/dL 95 HDL 40 - 250 mg/dL 37 (L) LDL Calculated 0 - 99 mg/dL 92 Fasting? Yes Legend: (L) Low Vitals: BP Readings from Last 2 Encounters: 09/19/23 122/89 12/27/22 127/88 ER MECHANIC documented in this encounter Plan of Treatment Upcoming Encounters Date Type Department Care Team (Late st Contact Info) Description 10/31/2023 11:00 AM HEATER MECHANIC Office Visit [place] [address] [place] [address] Hali Soriano APRN [address] [place] [address] documented as of this encounter Visit Diagnoses Diagnosis Mixed hyperlipidemia documented in this encounter Additional Health Concerns Infection Onset Date Last Indicated Resolved Time MSSA 08/02/2023 08/02/2023 documented as of this encounter Care Teams Commodity Supervisor Relationship Specialty Start Date End Date Hali Soriano APRN [address] [place] [address] PCP - General Family Medicine 08/02/23 documented as of this encounter
--- OUTSIDE RECORDS SUMMARY | 2023-10-28 13:41 | XMS_ITS | Encounter Summary ---
Author Name Unknown Organization [facility] er Address [address] [place] [address] Care Team Providers Care Slug Press Operator Name Role Phone Hali Soriano APRN Primary Care Provider Encounter Details Date Type Department Care Team (Late st Contact Info) Description 10/23/2023 10:00 AM INDEPENDENT JEWELER Lab [place] [address] [place] [address] Prostate cancer screening; Retention of urine; continuous churn buttermaker current use of anticoagulant; Hyperlipidemia LDL goal <100 Social History Tobacco Use Types Packs/Day Years [...] How often do you attend chur or latter day services? 1 to 4 times per year 09/19/2023 Do you belong to any clubs o r organizations such as mormon groups, unions, fraternal [...] Date Recorded PHQ-9 Total Score 2 09/19/2023 [facility] - Occupational [...] money to buy more. Never true 09/19/20 Within the past 12 months, t he [...] or slept in a fdc (including now)? No 09/19/2023 Sex and Gender Information Value Date Recorded Sex Assigned at Not on file Gender Identity Not on file Sexual Orientation Not on file documented as of this encounter Plan of Treatment Upcoming Encounters Date Type Department Care Team (Late st Contact Info) Description 10/31/2023 11:00 AM INDEPENDENT JEWELER Office Visit [address] [place] [address] Hali Soriano, SKID WORKER [address] [place] [address] documented as of this encounter Procedures Procedure Name Priority Date/Time Associated Diagnosis Comments ESTIMATED GLOMERULAR FILTRATION RATE (EGFR) Routine 10/23/2023 10:11 AM INDEPENDENT JEWELER Retention of urine CBC Routine 10/23/2023 10:11 AM INDEPENDENT JEWELER correction current use of anticoagulant PSA Routine 10/23/2023 10:11 AM INDEPENDENT JEWELER Prostate cancer screening LIPID PANEL Routine 10/23/2023 10:11 AM INDEPENDENT JEWELER Hyperlipidemia LDL goal <100 BASIC METABOLIC PANEL Routine 10/23/2023 10:11 AM INDEPENDENT JEWELER Retention of urine documented in this encounter Results * Estimated Glomerular Filtration Rate (eGFR) (10/23/2023 10:11 AM INDEPENDENT JEWELER) Estimated Glomerular Filtration Rate (eGFR) >60 10/24/2023 1:56 PM [facility] Comment: GFR calculated from serum creatinine value Chronic Kidney Disease less than 60 mL/min/1.73 m2 Kidney Failure less than 15 mL/min/1.73 m2 Note: effective 09/27/2022: 2020 CKD-EPI Equation used 10/23/2023 10:1 1 AM INDEPENDENT JEWELER 10/23/2023 10:11 AM [facility] Wade Donovan MD LAB BLOOD ORDERABLES [facility] [address] [place] [address] * (ABNORMAL) Lipid panel (10/23/2023 10:11 AM [facility]) Pathologist [facility] Cholesterol 135 0 - 199 mg/dL 10/24/2023 1:56 PM [facility] Comment: Recommended by National Cholesterol Education Program (ATP III) -------- Cholesterol Ranges -------- <200 ?Desirable 200-239 ? Borderline high >=240 ? High Triglycerides 95 0 - 149 mg/dL 10/24/2023 1:56 PM [facility] Comment: -------- TRIG Ranges -------- <150 ?Normal 150-199 ? Borderline high 200-499 ? High >=500 ? Very high HDL 30(L) 40 - 250 mg/dL 10/24/2023 1:56 PM [facility] Comment: -------- HDL Ranges -------- <40 ?Low 40-59 ?Normal >=60 ? Optimal LDL Calculated 86 0 - 99 mg/dL 10/24/2023 1:56 PM [facility] Comment: -------- LDL Ranges -------- <100 ? Optimal 100-129 ?Near optimal/above optimal 130-159 ?Borderline high 160-189 ?High >=190 ?Very high Blood (Blood, Venous) 10/23/2023 10:11 AM INDEPENDENT JEWELER 10/24/2023 12:40 PM INDEPENDENT JEWELER Wade Donovan MD LAB BLOOD ORDERABLES [facility] [address] [place] [address] * (ABNORMAL) CBC (Heme Group) (10/23/2023 10:11 AM INDEPENDENT JEWELER) WBC 6.5 3.5 - 10.5 K/uL 10/23/2023 10:19 AM INDEPENDENT JEWELER [facility] RBC 5.35 4.30 - 5.70 M/uL 10/23/2023 10:19 AM INDEPENDENT JEWELER [facility] Hemoglobin 15.2 13.5 - 17.5 g/dL 10/23/2023 10:19 AM INDEPENDENT JEWELER [facility] Hematocrit 48.2 38.0 - 50.0 % 10/23/2023 10:19 AM INDEPENDENT JEWELER [facility] Platelets 292 150 - 450 K/uL 10/23/2023 10:19 AM INDEPENDENT JEWELER [facility] MCV 90.1 81.2 - 95.1 fL 10/23/2023 10:19 AM INDEPENDENT JEWELER [facility] MCH 28.4 26.0 - 32.0 pg 10/23/2023 10:19 AM INDEPENDENT JEWELER [facility] MCHC 31.5(L) 32.0 - 36.0 g/dL 10/23/2023 10:19 AM INDEPENDENT JEWELER [facility] RDW 15.3 11.8 - 15.6 % 10/23/2023 10:19 AM INDEPENDENT JEWELER [facility] Blood (Blood, Venous) 10/23/2023 10:11 AM INDEPENDENT JEWELER 10/23/2023 10:11 AM INDEPENDENT JEWELER Wade Donovan MD LAB BLOOD ORDERABLES Performing Organization Address City/[facility]/ZIP Co de Phone Number [facility] [address] [place] [address] * Basic metabolic panel (10/23/2023 10:11 AM INDEPENDENT JEWELER) Pathologist [facility] Sodium 140 135 - 145 mEq/L 10/24/2023 1:56 PM [facility] Potassium 4.0 3.5 - 5.1 mEq/L 10/24/2023 1:56 PM [facility] Chloride 107 98 - 107 mEq/L 10/24/2023 1:56 PM [facility] CO2 28 22 - 31 mmol/L 10/24/2023 1:56 PM [facility] Creatinine 0.80 0.60 - 1.40 mg/dL 10/24/2023 1:56 PM [facility] BUN 10 5 - 25 mg/dL 10/24/2023 1:56 PM [facility] Glucose 94 70 - 100 mg/dL 10/24/2023 1:56 PM [facility] Calcium, Total,S 8.9 8.4 - 10.2 mg/dL 10/24/2023 1:56 PM [facility] Anion Gap 5 4 - 13 10/24/2023 1:56 PM [facility] Comment: The anion gap is calculated with the following formula: AGAP = Na ? (Cl + CO2). Fasting? Yes 10/23/2023 10:11 AM [facility] Blood (Blood, Venous) 10/23/2023 10:11 AM INDEPENDENT JEWELER 10/24/2023 12:40 PM INDEPENDENT JEWELER Wade Donovan MD LAB BLOOD ORDERABLES Performing Organization Address City/[facility]/ZIP Co de Phone Number [facility] [address] [place] [address] [facility] [address] [place] [address] * (ABNORMAL) PSA (10/23/2023 10:11 AM INDEPENDENT JEWELER) Total PSA 5.9(H) 0.0 - 5.1 ng/mL 10/24/2023 3:46 PM INDEPENDENT JEWELER [facility] Comment: The results from this or [...] method is an immunometric assay manufactured by [employer] and performed on the Keepstream0 system. Biotin levels in serum remain elevated [...] testing. 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
--- OUTSIDE RECORDS SUMMARY | 2023-10-28 13:41 | XMS_ITS | Encounter Summary ---
Author Name Unknown Organization [facility] er Address [address] [place] [address] Care Team Providers Care U.S. Commissioner Name Role Phone Hali Soriano APRN Primary Care Provider Reason for Visit * Reason Onset Date Comments OTHER 10/17/2023 Encounter Details Date Type Department Care Team (Late st Contact Info) Description 10/17/2023 Telephone [place] [address] [place] [address] Hali Soriano APRN [address] [place], [place] [phone] OTHER Social History Tobacco Use Types Packs/Day Years [...] any clubs o r organizations such as oriental orthodox groups, unions, [...] Date Recorded PHQ-9 Total Score 2 09/19/2023 [facility] - Occupational Stress Questionnaire Answer Date Recorded [...] or slept in a residential (including now)? No 09/19/2023 Sex and Gender Information Value Date Recorded Sex Assigned at Not on file Gender Identity Not on file Sexual Orientation Not on file documented as of this encounter Miscellaneous Notes * Telephone Encounter - Lakisha Rucker RN - 10/17/2023 9:49 AM CST Please advise on lab order packer or packager request below. CASE ASSEMBLER * Telephone Encounter - Georgie Case - 10/17/2023 9:10 AM CST Please order Pre Visit Labs. Scheduled annual 10/26, lab scheduled for 10/22 CASE ASSEMBLER documented in this encounter Plan of Treatment Upcoming Encounters Date Type Department Care Team (Late st Contact Info) Description 10/31/2023 11:00 AM TOP CASE ASSEMBLER Office Visit [place] [address] [facility] [address] [place] [address] Hali Soriano, OBGYN HOSPITALIST PHYSICIAN [address] [place] [address] documented as of this encounter Visit Diagnoses Not on filedocumented in this encounter Additional Health Concerns Infection Onset Date Last Indicated Resolved Time MSSA 08/02/2023 08/02/2023 documented as of this encounter Care Teams U.S. Commissioner Relationship Specialty Start Date End Date Hali Soriano APRN [address] [place] [phone] PCP - General Family Medicine 08/02/23 documented as of this encounter
--- OUTSIDE RECORDS SUMMARY | 2023-10-28 13:41 | XMS_ITS | Encounter Summary ---
Author Name Unknown Organization [facility] er Address [address] [place] [address] Care Team Providers Care Journeyman Painter Name Role Phone Hali Soriano APRN Primary Care Provider Encounter Details Date Type Department Care Team (Latest Contact Info) Description 10/22/2023 Anticoagulation - Warfarin Visit [facility]/Internal Medicine - Third Floor [address] [place] [address] [id number] Iliana Doyle, RN [address] [place] [address] FPC current use of anticoagulant (Primary Dx); Other [...] often do you attend chur ch or congregation services? 1 to 4 times per year 09/19/2023 Do you belong to any clubs o r organizations such as lutheran groups, unions, fraternal [...] Date Recorded PHQ-9 Total Score 2 09/19/2023 [facility] Questionnaire Answer Date [...] or slept in a detention (including now)? No 09/19/2023 Sex and Gender Information Value Date Recorded Sex Assigned at Not on file Gender Identity Not on file Sexual Orientation Not on file documented as of this encounter Progress Notes * Iliana Doyle, RN - 10/22/2023 4:37 PM CST Anticoagulation Clinic INR RESULTS: INR (no units) Date Value 10/22/2023 1.80 (A) DOSE PLAN: 4 mg every Mon, Wed, Fri; 2 mg all other days DOSE CHANGE: No change NEXT INR: 11/05/23 INR results not reviewed with patient. INR is within patient's goal range and dosing instructions have not been changed. Patient is a home liz. AVS mailed to patient. K WAGON DRIVER documented in this encounter Plan of Treatment Upcoming Encounters Date Type Department Care Team (Late st Contact Info) Description 10/31/2023 11:00 AM CHUCK WAGON DRIVER Office Visit [place] [address] [place] [address] Hali Soriano, HOSPITAL MONITOR [address] [place] [address] documented as of this encounter Procedures Procedure Name Priority Date/Time Associated Diagnosis Comments PROTIME-INR Routine 10/22/2023 documented in this encounter Results * (ABNORMAL) Protime-INR (10/22/2023) INR 1.80(A) 0.9 - 1.1 HOME HEALT H POINT OF CARE TESTING Protime HOME HEALT H POINT OF CARE TESTING Blood (Blood, Venous) Historical Provider LAB BLOOD ORDERAB LES HOME HEALTH POINT OF CARE TESTING documented in this encounter Visit Diagnoses Diagnosis oysterman current use of anticoagulant- Primary Other pulmonary embolism without acute cor pulmonale, unspecified chronicity (HCC) documented in this encounter Additional Health Concerns Infection Onset Date Last Indicated Resolved Time MSSA 08/02/2023 08/02/2023 documented as of this encounter Care Teams Journeyman Painter Relationship Specialty Start Date End Date Hali Soriano APRN [address] [place] [id number] PCP - General Family Medicine 08/02/23 documented as of this encounter
--- OUTSIDE RECORDS SUMMARY | 2023-10-28 13:42 | XMS_ITS | Encounter Summary ---
Author Name Unknown Organization [facility] er Address [address] [place] [address] Care Team Providers Care Deputy Harbormaster Name Role Phone Hali Soriano APRN Primary Care Provider Encounter Details Date Type Department Care Team (Latest Contact Info) Description 08/24/2023 Anticoagulation - Warfarin Visit [facility]/Internal Medicine - Third Floor [address] [place] [address] Dolores Cleary RN [address] [place] [address] superintendent marine oil terminal current use of anticoagulant (Primary Dx); Other [...] afraid of your partner or ex-partner? No 04/24/2022 Within the last year, have y ou been humiliated or emotionally abused in other ways by your partner or ex-partner? No Within the last year, have y ou been kicked, hit, slapped, or otherwise physically hurt by your partner or ex-partner? No 04/24/2022 Within the last year, have y ou been raped or forced to have any kind of sexual activity by your partner or ex-partner? No 04/24/2022 Social Connection and Isolat ion Panel [NHANES] Answer Date Recorded In a typical week, how many times do you talk on the phone with family, friends, or neighbors? More than three times a week 04/24/2022 How often do you get togethe r with friends or relatives? Twice a week 04/24/2022 How often do you attend chur ch or uatsdin services? 1 to 4 times per year 04/24/2022 Do you belong to any clubs o r organizations such as anglican groups, unions, fraternal or athletic groups, or school groups? No 04/24/2022 How often do you attend meet ings of the clubs or organizations you belong to? Never 04/24/2022 Are you , , di vorced, , never , or living with a partner? 04/24/2022 AUDIT-C Answer Date Recorded Q1: How often do you have a drink containing alcohol? Never 04/24/2022 Q2: How many drinks containi ng alcohol do you have on a typical day when you are drinking? Patient does not drink Q3: How often do you have si x or more drinks on one occasion? Never 04/24/2022 Overall Financial Resource Strain (CARDIA) Answe r Date Recorded How hard is it for you to pa y for the very basics like food, housing, medical care, and heating? Not hard at all 04/24/2022 PHQ-2 Answer Date Recorded PHQ-9 Total Score 1 04/24/2022 [facility] Answer Date Recorded Do you feel stress - tense, restless, nervous, or anxious, or unable to sleep at night because your mind is troubled all the time - these days? Not at all 04/24/2022 Exercise Vital Sign Answer Date Recorde d On average, how many days pe r week do you engage in moderate to strenuous exercise (like a brisk walk)? 0 days 04/24/2022 On average, how many minutes do you engage in exercise at this level? 0 min 04/24/2022 Hunger Vital Sign Answer Date Recorded Within the past 12 months, y ou worried that your food would run out before you got the money to buy more. Never true 04/24/20 22 Within the past 12 months, t he food you bought just didn't last and you didn't have money to get more. Never true 04/24/2022 PRAPARE - Transportation Answer Date Re corded In the past 12 months, has l ack of transportation kept you from medical appointments or from getting medications? No 04/01 In the past 12 months, has l ack of transportation kept you from meetings, work, or from getting things needed for daily living? No 04/24/2022 Housing Stability Vital Sign Answer Jose e Recorded In the last 12 months, was t here a time when you were not able to pay the mortgage or rent on time? No 04/24/2022 In the last 12 months, how many places have you lived? 1 04/24/2022 In the last 12 months, was t here a time when you did not have a steady place to sleep or slept in a fdc (including now)? No 04/24/2022 Sex and Gender Information Value Date Recorded Sex Assigned at Not on file Gender Identity Not on file Sexual Orientation Not on file documented as of this encounter Progress Notes * Dolores Cleary RN - 08/24/2023 9:46 AM CST Anticoagulation Clinic INR RESULTS: INR (no units) Date Value 08/22/2023 3.10 (A) DOSE PLAN: 4 mg Mon, Wed, Fri; 2 mg all other days DOSE CHANGE: Decreased by 9.1% (2 mg/week) NEXT INR: 09/05/2023 INR results reviewed with the patient's , Nelia. She verbalized understanding of anticoagulation dose plan and date of next INR. AVS mailed to the patient. INSPECTOR AND CENTER MARKER documented in this encounter Plan of Treatment Upcoming Encounters Date Type Department Care Team (Late st Contact Info) Description 10/31/2023 11:00 AM HEAD INSPECTOR AND CENTER MARKER Office Visit [place] [address] [place] [address] Hali Soriano, MANAGER ENGAGEMENT [address] [place] [address] documented as of this encounter Procedures Procedure Name Priority Date/Time Associated Diagnosis Comments PROTIME-INR Routine 08/22/2023 documented in this encounter Results * (ABNORMAL) Protime-INR (08/22/2023) INR 3.10(A) 0.9 - 1.1 HOME HEALT H POINT OF CARE TESTING Protime HOME HEALT H POINT OF CARE TESTING Blood (Blood, Venous) Historical Provider LAB BLOOD ORDERAB LES HOME HEALTH POINT OF CARE TESTING documented in this encounter Visit Diagnoses Diagnosis 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
--- OUTSIDE RECORDS SUMMARY | 2023-10-28 13:42 | XMS_ITS | Encounter Summary ---
Author Name Unknown Organization [facility] er Address [address] [place] [address] Care Team Providers Care Probate Paralegal Name Role Phone Hali Soriano APRN Primary Care Provider Reason for Visit * Reason Comments Med Refill Encounter Details Date Type Department Care Team (Late st Contact Info) Description 09/23/2023 Refill [place] [address] [place] [phone] Adarsh Carpenter MD [address] [place] [address] Cystitis Social History Tobacco Use Types Packs/Day Years [...] often do you attend chur ch or cheondoism services? 1 to 4 times per year 09/19/2023 Do you belong to any clubs o r organizations such as nondenominational groups, unions, fraternal [...] Date Recorded PHQ-9 Total Score 2 09/19/2023 [facility] - Occupational Stress [...] or slept in a fci (including now)? No 09/19/2023 Sex and Gender Information Value Date Recorded Sex Assigned at Not on file Gender Identity Not on file Sexual Orientation Not on file documented as of this encounter Miscellaneous Notes * Telephone Encounter - Lakisha Rucker RN - 09/26/2023 8:37 AM CST Called patient's and informed her that the prescription for Macrobid can be picked up. OLOGY PROFESSOR * Telephone Encounter - Adarsh Carpenter MD - 09/26/2023 8:14 AM CST I have sent a new prescription for Macrobid to his pharmacy. They can pick that up anytime this afternoon. OLOGY PROFESSOR * Telephone Encounter - Monique Epstein - 09/25/2023 4:35 PM CST Patient's spouse called regarding this request. Patient is taking this daily to get him by until his surgery on 10/16/22. Please advise if he can get an additional refill to get him through until his surgical date. OLOGY PROFESSOR * Telephone Encounter - Annie Phillips LPN - 09/25/2023 2:17 PM CST No fill at this time Last Rx: 09/19/23 #20 x2 refills Quantity: 20 capsule Refills: 2 Requested Prescriptions Pending Prescriptions Disp Refills nitrofurantoin, macrocrystal-monohydrate, (MACROBID) 100 MG capsule [Pharmacy Med Name: NITROFURANTOIN MONOHYD MAC 100 CAPS] 30 capsule 0 Sig: TAKE 1 CAPSULE BY MOUTH ONCE A DAY TO HELP PREVENT A UTI OLOGY PROFESSOR documented in this encounter Plan of Treatment Upcoming Encounters Date Type Department Care Team (Late st Contact Info) Description 10/31/2023 11:00 AM PALEOLOGY PROFESSOR Office Visit [address] [facility] [address] [place] [address] Hali Soriano APRN [address] [place] [address] documented as of this encounter Visit Diagnoses Diagnosis Cystitis Unspecified cystitis documented in this encounter Additional Health Concerns Infection Onset Date Last Indicated Resolved Time MSSA 08/02/2023 08/02/2023 documented as of this encounter Care Teams Probate Paralegal Relationship Specialty Start Date End Date Hali Soriano APRN [address] [place] [address] PCP - General Family Medicine 08/02/23 documented as of this encounter
--- OUTSIDE RECORDS SUMMARY | 2023-10-28 13:42 | XMS_ITS | Encounter Summary ---
Author Name Unknown Organization [facility] er Address [address] [place] [address] Care Team Providers Care Hardware Developer Name Role Phone Hali Soriano APRN Primary Care Provider Reason for Referral * Consultation (Routine) - Authorized Specialty Diagnoses / Procedures Referred By Contac t Referred To Contact Diagnoses Scalp lump Adarsh Carpenter MD [address] [phone] [address] Referral ID Status Reason Start Date Expiration Date V isits Requested Visits Authorized [id number] Authorized 09/20/2023 09/20/2024 1 1 TECHNICIAN Reason for Visit * Reason Comments DOS: 10/16/2022 Dr. Pate, [place] [facility] Pre-op Exam Encounter Details Date Type Department Care Team (Late st Contact Info) Description 09/19/2023 3:00 PM HVAC TECHNICIAN Consult [place] [address] [place] [phone] Adarsh Carpenter MD [address] [phone] Scalp lump (Primary Dx); Preop examination; Cystitis; Kidney stone; Bladder stone; Neurogenic bladder; Multiple sclerosis (HCC); History of pulmonary embolism; Current use of skilled nursing anticoagulation; Quadriparesis (HCC); Seborrheic dermatitis of scalp Social History Tobacco Use Types Packs/Day Years [...] week 09/19/2023 How often do you attend [facility] or denominational services? 1 to 4 times per year [...] Date Recorded PHQ-9 Total Score 2 09/19/2023 [facility] ional [facility] - Occupational [...] slept in a skilled nursing (including now)? No 09/19/2023 Sex and Gender Information Value Date Recorded Sex Assigned at Not on file Gender Identity Not on file Sexual Orientation Not on file documented as of this encounter Last Filed Vital Signs Vital Sign Reading Time Taken Comments Blood Pressure 122/89 09/19/2023 2:58 PM HVAC TECHNICIAN Pulse 86 09/19/2023 2:48 PM HVAC TECHNICIAN Temperature 37 ??C (98.6 ??F) 09/19/2023 2:48 PM HVAC TECHNICIAN Respiratory Rate 16 09/19/2023 2:48 PM HVAC TECHNICIAN Oxygen Saturation 92% 09/19/2023 2:48 PM HVAC TECHNICIAN Inhaled Oxygen Concentration - - Weight - - Height - - Body Mass Index - - documented in this encounter Progress Notes * Lakisha Rucker RN - 09/19/2023 3:00 PM CST EKG performed in clinic today. Scanned to cardiology for interpretation. TECHNICIAN * Adarsh Carpenter MD - 09/19/2023 3:00 PM CST Subjective Patient ID: Dwain Hinds is a 63 y.o. male. HPI the patient is here today for a PREOPERATIVE EVALUATION prior to elective procedure that will take place on October 16, 2023 at [facility]. The procedure is removal of a retained bladder stone as well as a kidney stone. The procedure will take place at [facility] and the surgeon's name is Dr. Arciniega. THE MEDICAL HISTORY IT PERTAINS TO HIS SURGICAL PROCEDURE is that the patient has had a history of multiple sclerosis for greater than 25 years. As a result he has developed a neurogenic bladder and has to catheterize himself up to 4 times a day. As a result of his MS and neurogenic bladder he has periodically developed both bladder stones and kidney stones. Though he is relatively asymptomatic from his stone disease he unfortunately gets recurrent urinary tract infections as well as sepsis as a result of his stone disease. Previously when he had a bladder stone removed he actually went a couple of years without a bladder infection or sepsis. In the last year he has approximately 4 documented bladder infections and I believe 1 admission for sepsis. MULTIPLE SCLEROSIS he has had multiple sclerosis for greater than 25 years. He became wheelchair dependent in 2016 and lost most motor functions from the chest down. He has minimal use but some use of his right upper extremity. He is able to control a motorized wheelchair. INCONTINENCE he has to be catheterize roughly 4 times a day secondary to neurogenic bladder. He hasdeveloped some fecal incontinence as well. SLEEP APNEA he has some risk factors for sleep apnea has been checked in his past and did not have evidence for significant sleep apnea at that time. He does usually sleep upright at about 30 degreesat night as this is his position of comfort. CHRONIC ANTICOAGULATION patient has had a history of pulmonary embolus and is chronically anticoagulated and does home monitoring with input from [facility] anticoagulation team. SMOKING quit greater than 20 years ago ALCOHOL quit more than 40 years ago ALLERGIES to penicillin and bee stings MEDICAL HISTORY listed below not necessarily inclusive... Multiple sclerosis Spastic quadriparesis PE/DVT Chronic anticoagulant therapy Neurogenic bladder Incontinence of both urine and stool Family history of colon cancer Periodic spontaneous muscle spasms Wheelchair dependent Hyperlipidemia History of recurrent UTIs with sepsis History of both bladder and kidney stones Hearing loss History of depression History of pressure sores Risk factors for obstructive sleep apnea History of prediabetes MEDICATIONS Lipitor 20 mg daily Baclofen 10 mg 3 times daily Nitrofurantoin daily for the last two+ weeks to help suppress a recent intercurrent infection Pataday eyedrops Ditropan 5 mg twice daily Senna Coumadin 2 mg tablet daily monitored weekly at home SURGICAL HISTORY Tonsils and adenoids Left arm fracture requiring bone grafting History of both kidney and bladder stone removal Left femur fracture History of colon polyps SOCIAL HISTORY he has been since 1977. Four children and 12 grandchildren. 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 FAMILY HISTORY his mother age 89 COPD and history of colon cancer. His father age 69 heart disease. 2 brothers 1 sister living. COLON CANCER SCREENING next due 2024 PSA testing done routinely IMMUNIZATIONS we have discussed with the patient and his flu, COVID, RSV, shingles vaccine that he should receive through his pharmacy. Review of Systems he currently does not have any significant issues regarding fevers chills coughs colds no shortness of breath chest pain palpitations no weight changes no particular changes in GI or issues. No unusual aches or pains lumps or bumps fluid retention. SKIN he has developed skin dermatitis no intercurrent infections SCALP LUMP his noticed a small bump at the anterior midline of his scalp. Objective Physical Exam is alert he appears comfortable stable currently sitting in his motorized wheelchair. Blood pressure 122/89 Pulse 86 regular rate and rhythm Temp 98.6 Weight obtained today Last recorded weight 186 pounds O2 sats 92% room air Ears are clear Pupils equal Tongue is moist throat is clear Neck no adenopathy thyromegaly carotid bruits masses Lungs are clear without wheeze rales or rhonchi Cardiac is regular rate and rhythm without heart murmur Abdomen soft not distended no apparent masses Extremities no significant edema there can be some spontaneous flexion of his lower legs secondary to light touch SCALP on the top and back of his scalp along the left temporal area there is certainly some flaky skin irritated skin secondary to a scalp dermatitis SCALP BUMP on the anterior portion of his skull towards the front he has an approximate 1 cm hard firm lump that is consistent with a probable benign ostosis. CBC chemistry panels acquired EKG done Assessment/Plan Diagnoses and all orders for this visit: Preop examination - CBC Branch Off w/Diff; Future - Basic metabolic panel; Future - ECG 12 lead; Future - Estimated Glomerular Filtration Rate (eGFR) Cystitis - nitrofurantoin, macrocrystal-monohydrate, (Macrobid) 100 MG capsule; Take one capsule twice a dayfor ten days or as directed Kidney stone Bladder stone Neurogenic bladder Multiple sclerosis (HCC) History of pulmonary embolism Current use of terminal superintendent anticoagulation Quadriparesis (HCC) The overall assessment is as discussed. The plan at this time is He is given SURGICAL CLEARANCE to have his procedure done under general anesthesia We have contacted [facility] anticoagulation team and they will manage his coagulation status. He will go off Coumadin a week before the procedure and will be bridged with Lovenox. After his procedurehe will continue to be bridged while he reinitiates his Coumadin. We will prescribe a topical cortisone cream for his scalp dermatitis We will acquire a skull x-ray to initiate evaluation of his scalp bump. We would recommend rechecking for possible sleep apnea in the future. He will be n.p.o. for at least 8 hours prior to the procedure. TECHNICIAN documented in this encounter Plan of Treatment Upcoming Encounters Date Type Department Care Team (Late st Contact Info) Description 10/31/2023 11:00 AM HVAC TECHNICIAN Office Visit [place] [address] [facility] 20 [place] [address] Hali Soriano, MANAGER MERCHANDISE [address] [place] [address] Scheduled Orders Name Type Priority Associated Diagnoses Orde r Schedule ECG 12 lead ECG Routine Preop examination 1 Occurrences starting 09/19/2023 until 09/19/2024 Scheduled Referrals Name Type Priority Associated Diagnoses Order Schedule Ambulatory External Referral [facility]; Radiology Outpatient Referral Routine Scalp lump Ordered: 09/20/2023 documented as of this encounter Procedures Procedure Name Priority Date/Time Associated Diagnosis Comments ESTIMATED GLOMERULAR FILTRATION RATE (EGFR) Routine 09/19/2023 3:57 PM HVAC TECHNICIAN Preop examination CBC BRANCH OFFICE W/DIFF Routine 09/19/2023 3:57 PM HVAC TECHNICIAN Preop examination BASIC METABOLIC PANEL Routine 09/19/2023 3:57 PM HVAC TECHNICIAN Preop examination documented in this encounter Results * Estimated Glomerular Filtration Rate (eGFR) (09/19/2023 3:57 PM HVAC TECHNICIAN) Estimated Glomerular Filtration Rate (eGFR) >60 09/19/2023 4:14 PM HVAC TECHNICIAN [facility] Comment: GFR calculated from serum creatinine value Chronic Kidney Disease less than 60 mL/min/1.73 m2 Kidney Failure less than 15 mL/min/1.73 m2 Note: effective 09/27/2022: 2020 CKD-EPI Equation used 09/19/2023 3:57 PM HVAC TECHNICIAN 09/19/2023 3:57 PM HVAC TECHNICIAN Adarsh Carpenter MD LAB BLOOD ORDERABLES [facility] [address] [place] [address] * (ABNORMAL) Basic metabolic panel (09/19/2023 3:57 PM HVAC TECHNICIAN) Sodium 139 135 - 145 mmol/L 09/19/2023 4:14 PM HVAC TECHNICIAN [facility] [place] Potassium 3.6 3.5 - 5.1 mmol/L 09/19/2023 4:14 PM HVAC TECHNICIAN [facility] [place] Chloride 105 98 - 107 mmol/L 09/19/2023 4:14 PM HVAC TECHNICIAN [facility] [place] CO2 33(H) 22 - 31 mmol/L 09/19/2023 4:14 PM HVAC TECHNICIAN [facility] [place] Creatinine 0.8 0.6 - 1.4 mg/dL 09/19/2023 4:14 PM HVAC TECHNICIAN [facility] [place] BUN 8 5 - 25 mg/dL 09/19/2023 4:14 PM HVAC TECHNICIAN [facility] [place] Glucose 91 70 - 100 mg/dL 09/19/2023 4:14 PM HVAC TECHNICIAN [facility] [place] Calcium, Total,S 9.0 8.4 - 10.2 mg/dL 09/19/2023 4:14 PM HVAC TECHNICIAN [facility] [place] Anion Gap 1(L) 4 - 13 09/19/2023 4:14 PM HVAC TECHNICIAN [facility] [place] Comment: The anion gap is calculated with the following formula: AGAP = Na ? (Cl + CO2). Fasting? No 09/19/2023 3:58 PM HVAC TECHNICIAN [facility] [place] Blood 09/19/2023 3:57 PM HVAC TECHNICIAN 09/19/2023 3:57 PM HVAC TECHNICIAN Adarsh Carpenter MD LAB BLOOD ORDERABLES [facility] [address] [place] [address] * (ABNORMAL) CBC Branch Off w/Diff (09/19/2023 3:57 PM HVAC TECHNICIAN) WBC 5.1 3.5 - 10.5 K/uL 09/19/2023 4:14 PM HVAC TECHNICIAN [facility] [place] RBC 5.73(H) 4.30 - 5.70 M/uL 09/19/2023 4:14 PM HVAC TECHNICIAN [facility] [place] Hemoglobin 16.1 13.5 - 17.5 g/dL 09/19/2023 4:14 PM HVAC TECHNICIAN [facility] [place] Hematocrit 51.5(H) 38.0 - 50.0 % 09/19/2023 4:14 PM HVAC TECHNICIAN [facility] [place] Platelets 231 150 - 450 K/uL 09/19/2023 4:14 PM HVAC TECHNICIAN [facility] [place] MCV 89.9 81.2 - 95.1 fL 09/19/2023 4:14 PM HVAC TECHNICIAN [facility] [place] MCH 28.1 26.0 - 32.0 pg 09/19/2023 4:14 PM HVAC TECHNICIAN [facility] [place] MCHC 31.3(L) 32.0 - 36.0 g/dL 09/19/2023 4:14 PM HVAC TECHNICIAN [facility] [place] RDW 15.7(H) 11.8 - 15.6 % 09/19/2023 4:14 PM HVAC TECHNICIAN [facility] [place] Lymphocytes % 21.9 % 09/19/2023 4:14 PM HVAC TECHNICIAN [facility] [place] Mid-size Cells 13.5 % 09/19/2023 4:14 PM HVAC TECHNICIAN [facility] [place] Granulocytes/Mason trophils 64.6 % 09/19/2023 4:14 PM HVAC TECHNICIAN [facility] [place] Lymphocytes Absolute 1.1 0.9 - 2.9 K/uL 09/19/2023 4:14 PM HVAC TECHNICIAN [facility] [place] MIDS Absolute 0.7 0.4 - 1.5 K/uL 09/19/2023 4:14 PM HVAC TECHNICIAN [facility] [place] Granulocytes/Mason trophils Absolute 3.3 1.7 - 7.0 K/uL 09/19/2023 4:14 PM HVAC TECHNICIAN [facility] [place] Blood (Blood, Venous) 09/19/2023 3:57 PM HVAC TECHNICIAN 09/19/2023 3:57 PM HVAC TECHNICIAN Adarsh Carpenter MD LAB BLOOD ORDERABLES [facility] [address] [place] [address] documented in this encounter Visit Diagnoses Diagnosis Scalp lump- Primary Preop examination Unspecified pre-operative examination Cystitis Unspecified cystitis Kidney stone Calculus of kidney Bladder stone Other calculus in bladder Neurogenic bladder Neurogenic bladder, NOS Multiple sclerosis (HCC) Multiple sclerosis History of pulmonary embolism Personal history of venous thrombosis and embolism Current use of skilled nursing anticoagulation Quadriparesis (HCC) Unspecified quadriplegia Seborrheic dermatitis of scalp Other seborrheic dermatitis documented in this encounter Additional Health Concerns Infection Onset Date Last Indicated Resolved Time MSSA 08/02/2023 08/02/2023 documented as of this encounter Care Teams Hardware Developer Relationship Specialty Start Date End Date Hali Soriano, MANAGER MERCHANDISE [address] [place] [address] PCP - General Family Medicine 08/02/23 documented as of this encounter
--- OUTSIDE RECORDS SUMMARY | 2023-10-28 13:42 | XMS_ITS | Encounter Summary ---
Author Name Unknown Organization [facility] er Address [address] [place] [address] Care Team Providers Care Aging Department Supervisor Name Role Phone Hali Soriano APRN Primary Care Provider Encounter Details Date Type Department Care Team (Latest Contact Info) Description 10/08/2023 Anticoagulation - Warfarin Visit [facility]/Internal Medicine - Third Floor [address] [place] [id number] Iliana Doyle, RN [address] [place] [address] half-way current use of anticoagulant (Primary Dx); Other [...] often do you attend chur ch or adventism services? 1 to 4 times per year [...] Date Recorded PHQ-9 Total Score 2 09/19/2023 [facility] Questionnaire Answer Date [...] or slept in a chcf (including now)? No 09/19/2023 Sex and Gender Information Value Date Recorded Sex Assigned at Not on file Gender Identity Not on file Sexual Orientation Not on file documented as of this encounter Progress Notes * Iliana Doyle, RN - 10/08/2023 1:48 PM CST Grace-procedural Instructions: WARFARIN Patient is having CYSTOSCOPY, CYSTOLITHALOPAXY, RIGHT RETROGRADE PYELOGRAM, RIGHT URETEROSCOPY WITHLASER LITHOTRIPSY, RIGHT URETERAL STENT PLACEMENT on 10/16/23. 1. Hold Warfarin for 5 days from 10/11/23 to 10/15/23 2. Check INR as previously instructed on 10/10/23, then again the day before or morning of procedure 3. Resume Warfarin the evening of 10/16/23 unless otherwise directed by surgeon. Continue on maintenance dose 4 mg every Mon, Wed, Fri; 2 mg all other days (or as instructed based on INR result 10/10/22) 4. Recheck INR again on 10/23/23 (one week after resuming warfarin) 5. Call Anticoagulation clinic with any questions or concerns [phone]. Patient's , Nelia (ROB), verbalized understanding of above instruction and above information. Risks and benefits of Warfarin hold discussed with patient without concern. ACC advised patient if she/he develops any signs or symptoms of shortness of breath, difficulty breathing, chest pain, neurological symptoms, redness, warmth, swelling or pain in an extremity, to seek medical attention as warranted. Plan approved by Elli [place] PA-C ICAL FORCEPS FABRICATOR documented in this encounter Plan of Treatment Upcoming Encounters Date Type Department Care Team (Late st Contact Info) Description 10/31/2023 11:00 AM SURGICAL FORCEPS FABRICATOR Office Visit [place] [address] [facility] [address] [place] [address] Hali Soriano, CORRECTIONS SERGEANT [address] [place] [address] documented as of this encounter Visit Diagnoses Diagnosis town administrator current use of anticoagulant- Primary Other pulmonary embolism without acute cor pulmonale, unspecified chronicity (HCC) documented in this encounter Additional Health Concerns Infection Onset Date Last Indicated Resolved Time MSSA 08/02/2023 08/02/2023 documented as of this encounter Care Teams Aging Department Supervisor Relationship Specialty Start Date End Date Hali Soriano, CORRECTIONS SERGEANT [address] [place] [address] PCP - General Family Medicine 08/02/23 documented as of this encounter
--- OUTSIDE RECORDS SUMMARY | 2023-10-28 13:42 | XMS_ITS | Encounter Summary ---
Author Name Unknown Organization [facility] er Address [address] [place] [address] Care Team Providers Care Sampler Ovens Name Role Phone Hali Soriano APRN Primary Care Provider Encounter Details Date Type Department Care Team (Late st Contact Info) Description 09/20/2023 Telephone [place] [address] [place] [address] Adarsh Carpenter MD [address] [place] [address] Social History Tobacco Use Types Packs/Day Years [...] How often do you attend chur or hinduism services? 1 to 4 times per year 09/19/2023 Do you belong to any clubs o r organizations such as zoroastrianism groups, unions, fraternal [...] Date Recorded PHQ-9 Total Score 2 09/19/2023 [facility]at ional Health - [...] slept in a long term (including now)? No 09/19/2023 Sex and Gender Information Value Date Recorded Sex Assigned at Not on file Gender Identity Not on file Sexual Orientation Not on file documented as of this encounter Miscellaneous Notes * Telephone Encounter - Lalitha Pathak - 09/20/2023 10:24 AM CST Pre-op, labs, EKG faxed to [facility]; fax [phone]. ORT RAMP SUPERVISOR * Telephone Encounter - Sofia Denson RN - 09/20/2023 9:40 AM CST Please fax referral to [facility] for xray with face sheet. Please fax preop, labs & EKG to [facility] with face sheet. ORT RAMP SUPERVISOR documented in this encounter Plan of Treatment Upcoming Encounters Date Type Department Care Team (Late st Contact Info) Description 10/31/2023 11:00 AM AIRPORT RAMP SUPERVISOR Office Visit [place] [address] [place] [address] Hali Soriano, PARI MUTUEL TICKET CASHIER [address] [place] [address] documented as of this encounter Visit Diagnoses Not on filedocumented in this encounter Additional Health Concerns Infection Onset Date Last Indicated Resolved Time MSSA 08/02/2023 08/02/2023 documented as of this encounter Care Teams Sampler Ovens Relationship Specialty Start Date End Date Hali Soriano APRN [address] [place] [phone] PCP - General Family Medicine 08/02/23 documented as of this encounter
--- OUTSIDE RECORDS SUMMARY | 2023-10-28 13:42 | XMS_ITS | Encounter Summary ---
Author Name Unknown Organization [facility] er Address [address] [place] [address] Care Team Providers Care Sourcer Name Role Phone Hali Soriano APRN Primary Care Provider Encounter Details Date Type Department Care Team (Late st Contact Info) Description 09/19/2023 4:30 PM OFFICE SUPPORT CLERK Lab [place] [address] [place] [address] Social History Tobacco Use Types Packs/Day Years [...] often do you attend chur ch or presybeterian services? 1 to 4 times per year 09/19/2023 Do you belong to any clubs o r organizations such as restorationism groups, unions, fraternal [...] Recorded PHQ-9 Total Score 2 09/19/2023 [facility] - Occupational Stress Questionnaire Answer Date [...] slept in a nursing home (including now)? No 09/19/2023 Sex and Gender Information Value Date Recorded Sex Assigned at Not on file Gender Identity Not on file Sexual Orientation Not on file documented as of this encounter Plan of Treatment Upcoming Encounters Date Type Department Care Team (Late st Contact Info) Description 10/31/2023 11:00 AM OFFICE SUPPORT CLERK Office Visit [address] [place] [address] Hali Soriano APRN [address] [place] [address] documented as of this encounter Visit Diagnoses Not on filedocumented in this encounter Additional Health Concerns Infection Onset Date Last Indicated Resolved Time MSSA 08/02/2023 08/02/2023 documented as of this encounter Care Teams Sourcer Relationship Specialty Start Date End Date Hali Soriano APRN [address] [place] [address] PCP - General Family Medicine 08/02/23 documented as of this encounter
--- OUTSIDE RECORDS SUMMARY | 2023-10-28 13:42 | XMS_ITS | Encounter Summary ---
Author Name Unknown Organization [facility] er Address [address] [place] [address] Care Team Providers Care Sqe Name Role Phone Hali Soriano APRN Primary Care Provider Encounter Details Date Type Department Care Team (Latest Contact Info) Description 09/19/2023 Anticoagulation - Warfarin Visit SE [facility]/Internal Medicine - Third Floor [address] [place] [address] [id number] Iliana Doyle, RN 210 [place] [address] shelter current use of anticoagulant (Primary Dx); Other [...] often do you attend chur ch or jain services? 1 to 4 times per year 09/19/2023 Do you belong to any clubs o r organizations such as confucianist groups, unions, fraternal [...] Date Recorded PHQ-9 Total Score 2 09/19/2023 [facility] - Occupational Stress Questionnaire Answer Date Recorded [...] Progress Notes * Iliana Doyle, RN - 09/19/2023 12:58 PM CST Anticoagulation Clinic INR RESULTS: INR (no units) Date Value 09/19/2023 3.00 (A) DOSE PLAN: 4 mg every Mon, Wed, Fri; 2 mg all other days DOSE CHANGE: No change NEXT INR: 10/03/23 INR results not reviewed with patient. INR is within patient's goal range and dosing instructions have not been changed. Patient is a home liz. AVS mailed to patient. AL MECHANIC documented in this encounter Plan of Treatment Upcoming Encounters Date Type Department Care Team (Late st Contact Info) Description 10/31/2023 11:00 AM SIGNAL MECHANIC Office Visit [place] [address] [place] [address] Hali Soriano, PRECISION MACHINE OPERATOR [address] [place] [address] documented as of this encounter Procedures Procedure Name Priority Date/Time Associated Diagnosis Comments PROTIME-INR Routine 09/19/2023 documented in this encounter Results * (ABNORMAL) Protime-INR (09/19/2023) INR 3.00(A) 0.9 - 1.1 HOME HEALT H POINT OF CARE TESTING Protime HOME HEALT H POINT OF CARE TESTING Blood (Blood, Venous) Historical Provider LAB BLOOD ORDERAB LES HOME HEALTH POINT OF CARE TESTING documented in this encounter Visit Diagnoses Diagnosis shelter current use of anticoagulant- Primary Other pulmonary embolism without acute cor pulmonale, unspecified chronicity (HCC) documented in this encounter Additional Health Concerns Infection Onset Date Last Indicated Resolved Time MSSA 08/02/2023 08/02/2023 documented as of this encounter Care Teams Sqe Relationship Specialty Start Date End Date Hali Soriano APRN [address] [place] [address] PCP - General Family Medicine 08/02/23 documented as of this encounter
--- OUTSIDE RECORDS SUMMARY | 2023-10-28 13:42 | XMS_ITS | Encounter Summary ---
Author Name Unknown Organization [facility] er Address [address] [place] [address] Care Team Providers Care Traffic Assistant Name Role Phone Hali Soriano APRN Primary Care Provider Reason for Visit * Reason Comments Med Refill Encounter Details Date Type Department Care Team (Late st Contact Info) Description 10/08/2023 Refill SE Anticoag/Internal Medicine - Third Floor [address] [place] [address] [phone] Elli Campbell PA-C 210 [place] [address] shelter current use of anticoagulant; Other pulmonary embolism [...] How often do you attend chur or episcopal services? 1 to 4 times per year 09/19/2023 Do you belong to any clubs o r organizations such as tenriism groups, unions, fraternal [...] Date Recorded PHQ-9 Total Score 2 09/19/2023 [facility] - Occupational Stress Questionnaire Answer [...] slept in a senior living (including now)? No 09/19/2023 Sex and Gender Information Value Date Recorded Sex Assigned at Not on file Gender Identity Not on file Sexual Orientation Not on file documented as of this encounter Miscellaneous Notes * Telephone Encounter - Hali Soriano APRN - 10/10/2023 8:34 AM OPERATING SYSTEM DESIGNER RX sent to pharmacy ATING SYSTEM DESIGNER * Telephone Encounter - Glenys Munoz MA - 10/10/2023 8:24 AM CST Upcoming appointment with provider: none Last visit in provider department: 09/19/2023- Pre-op Last visit requested medication was discussed: 12/27/2022 Last Rx: 129 with 3 refills Requested Prescriptions Pending Prescriptions Disp Refills warfarin (COUMADIN) 2 MG tablet [Pharmacy Med Name: WARFARIN SODIUM 2MG TABS] 155 tablet 3 Sig: TAKE ONE TABLET BY MOUTH EVERY SUNDAY AND SUNDAY, AND TWO TABLETS BY MOUTH ALL OTHER DAYS AND DIRECTED BY ANTICOAGULATION CLINIC. Labs: Component Latest Ref Rng 10/03/2023 INR 0.9 - 1.1 4.20 ! (E) Legend: ! Abnormal (E) External lab result Vitals: BP Readings from Last 2 Encounters: 09/19/23 122/89 12/27/22 127/88 Last Controlled Substance Agreement (CSA): Last Random Urine Drug Screen (RUDS): ATING SYSTEM DESIGNER documented in this encounter Plan of Treatment Upcoming Encounters Date Type Department Care Team (Late st Contact Info) Description 10/31/2023 11:00 AM OPERATING SYSTEM DESIGNER Office Visit [place] 1705 [facility] 20 [place] [address] Hali Soriano, QUALITY CONTROL COORDINATOR 217 [place] [address] documented as of this encounter Visit Diagnoses Diagnosis shelter current use of anticoagulant Other pulmonary embolism without acute cor pulmonale, unspecified chronicity (HCC) documented in this encounter Additional Health Concerns Infection Onset Date Last Indicated Resolved Time MSSA 08/02/2023 08/02/2023 documented as of this encounter Care Teams Traffic Assistant Relationship Specialty Start Date End Date Hali Soriano, QUALITY CONTROL COORDINATOR [address] [place] [address] PCP - General Family Medicine 08/02/23 documented as of this encounter
--- OUTSIDE RECORDS SUMMARY | 2023-10-28 13:42 | XMS_ITS | Encounter Summary ---
Author Name Unknown Organization [facility] er Address [address] [place] [address] Care Team Providers Care Treating Plant Operator Name Role Phone Hali Soriano APRN Primary Care Provider Encounter Details Date Type Department Care Team (Late st Contact Info) Description 10/03/2023 Telephone SE Antico/Internal Medicine - Third Floor [address] [place] [address] Elli Campbell PA-C 210 [place] [address] Social History Tobacco Use Types Packs/Day [...] How often do you attend chur or caodaism services? 1 to 4 times per year 09/19/2023 Do you belong to any clubs o r organizations such as sabianist groups, unions, fraternal [...] Date Recorded PHQ-9 Total Score 2 09/19/2023 [facility] - Occupational Stress Questionnaire Answer Date [...] or slept in a snf (including now)? No 09/19/2023 Sex and Gender Information Value Date Recorded Sex Assigned at Not on file Gender Identity Not on file Sexual Orientation Not on file documented as of this encounter Miscellaneous Notes * Telephone Encounter - Anna Betts RN - 10/05/2023 3:51 PM CST DENISE Sanchez for Dr. Pate called and verbalized to have patient off Warfarin (<1.5 INR) for this procedure if that was ok. ACC verbalized understanding for patient to be off Warfarin for this procedure. ESS DEVELOPER * Telephone Encounter - Iliana Doyle RN - 10/03/2023 11:31 AM PROCESS DEVELOPER Patient noted to be having the following procedures at [facility] with Osito Pate MD, on 10/16/23: CYSTOSCOPY, CYSTOLITHALOPAXY, RIGHT RETROGRADE PYELOGRAM, RIGHT URETEROSCOPY WITH LASER LITHOTRIPSY, RIGHT URETERAL STENT PLACEMENT ACC contacted Dr. Pate's office requesting advice on if patient needs to hold warfarin for these procedures. Message left with office, will await call back. ESS DEVELOPER documented in this encounter Plan of Treatment Upcoming Encounters Date Type Department Care Team (Late st Contact Info) Description 10/31/2023 11:00 AM PROCESS DEVELOPER Office Visit [place] [address] [place] [address] Hali Soriano APRN [address] [place] [address] documented as of this encounter Visit Diagnoses Not on filedocumented in this encounter Additional Health Concerns Infection Onset Date Last Indicated Resolved Time MSSA 08/02/2023 08/02/2023 documented as of this encounter Care Teams Treating Plant Operator Relationship Specialty Start Date End Date Hali Soriano, LOAN CLOSER [address] [place] [address] PCP - General Family Medicine 08/02/23 documented as of this encounter
--- OUTSIDE RECORDS SUMMARY | 2023-10-28 13:42 | XMS_ITS | Encounter Summary ---
Author Name Unknown Organization [facility] er Address [address] [place] [address] Care Team Providers Care Leadlighter Name Role Phone Hali Soriano APRN Primary Care Provider Encounter Details Date Type Department Care Team (Latest Contact Info) Description 10/03/2023 Anticoagulation - Warfarin Visit SE [facility]/Internal Medicine - Third Floor [address] [place] [address] Anna Betts, ROBERT 210 [facility] [place] [address] long-term current use of anticoagulant (Primary Dx); Other [...] any clubs o r organizations such as latter-day groups, unions, fraternal [...] Date Recorded PHQ-9 Total Score 2 09/19/2023 [facility] - Occupational Stress Questionnaire Answer [...] or slept in a assisted (including now)? No 09/19/2023 Sex and Gender Information Value Date Recorded Sex Assigned at Not on file Gender Identity Not on file Sexual Orientation Not on file documented as of this encounter Progress Notes * Anna Betts, RN - 10/03/2023 1:16 PM CST Anticoagulation Clinic INR RESULTS: INR (no units) Date Value 10/03/2023 4.20 (A) DOSE PLAN: Hold 10/03/23; then resume 4mg every Mon, Wed, Fri; 2mg all other days DOSE CHANGE: one day hold NEXT INR: 10/10/23 INR results reviewed with the patient's spouse, Nelia. She verbalized he has been more tired, having a procedure coming up to deal with kidney stones and holiday eating not the same as typical. ACC verbalized we would call when we have his abdullahi-procedure instructions ready. She verbalized understanding of anticoagulation dose plan and date of next INR. Spouse denied signs/symptoms of bleeding. ACC advised to monitor patient for bleeding, utilize safety precautions and seek medical attention as warranted. Patient is a home liz, AVS not mailed due to time of return. MOTIVE EXHAUST EMISSIONS TECHNICIAN * Dolores Cleary RN - 10/03/2023 1:16 PM CST Patient's called to report that Dhruv's macrobid was stopped and he will start doxycycline ( class C interaction) x 14 days. Patient was instructed to check INR 10/11/23. MOTIVE EXHAUST EMISSIONS TECHNICIAN documented in this encounter Plan of Treatment Upcoming Encounters Date Type Department Care Team (Late st Contact Info) Description 10/31/2023 11:00 AM AUTOMOTIVE EXHAUST EMISSIONS TECHNICIAN Office Visit [place] 1705 [facility] 20 [place] [address] Hali Soriano, WHEAT INSPECTOR [address] [place] [address] documented as of this encounter Procedures Procedure Name Priority Date/Time Associated Diagnosis Comments PROTIME-INR Routine 10/03/2023 documented in this encounter Results * (ABNORMAL) Protime-INR (10/03/2023) INR 4.20(A) 0.9 - 1.1 HOME HEALT H POINT OF CARE TESTING Protime HOME HEALT H POINT OF CARE TESTING Blood (Blood, Venous) Historical Provider LAB BLOOD ORDERAB LES HOME HEALTH POINT OF CARE TESTING documented in this encounter Visit Diagnoses Diagnosis long-term current use of anticoagulant- Primary Other pulmonary embolism without acute cor pulmonale, unspecified chronicity (HCC) documented in this encounter Additional Health Concerns Infection Onset Date Last Indicated Resolved Time MSSA 08/02/2023 08/02/2023 documented as of this encounter Care Teams Leadlighter Relationship Specialty Start Date End Date Hali Soriano, TONY [address] [place] [address] PCP - General Family Medicine 08/02/23 documented as of this encounter
--- OUTSIDE RECORDS SUMMARY | 2023-10-28 13:42 | XMS_ITS | Encounter Summary ---
Author Name Unknown Organization [facility] er Address [address] [place] [address] Care Team Providers Care Web Operations Lead Name Role Phone Hali Soriano APRN Primary Care Provider Encounter Details Date Type Department Care Team (Late st Contact Info) Description 08/21/2023 Telephone [place] [address] [place] [address] Adarsh Carpenter MD [address] [place] [address] Social History Tobacco Use Types Packs/Day Years [...] 04/24/2022 How often do you attend chur or presybeterian services? 1 to 4 times per year 04/24/2022 Do you belong to any clubs o r organizations such as hindu groups, unions, fraternal [...] Date Recorded PHQ-9 Total Score 1 04/24/2022 [facility] - [facility]ational Stress Questionnaire Answer Date [...] slept in a snf (including now)? No 04/24/2022 Sex and Gender Information Value Date Recorded Sex Assigned at Not on file Gender Identity Not on file Sexual Orientation Not on file documented as of this encounter Miscellaneous Notes * Telephone Encounter - Vidhya Bain LPN - 08/22/2023 11:19 AM CST The facility was called and Dr. Carpenter's cell phone number was given. NE MARKETING ANALYST documented in this encounter Plan of Treatment Upcoming Encounters Date Type Department Care Team (Late st Contact Info) Description 10/31/2023 11:00 AM ONLINE MARKETING ANALYST Office Visit [address] [facility] [address] [place] [address] Hali Soriano APRN [address] [place] [address] documented as of this encounter Visit Diagnoses Not on filedocumented in this encounter Additional Health Concerns Infection Onset Date Last Indicated Resolved Time MSSA 08/02/2023 08/02/2023 documented as of this encounter Care Teams Web Operations Lead Relationship Specialty Start Date End Date Hali Soriano APRN [address] [place] [address] PCP - General Family Medicine 08/02/23 documented as of this encounter
--- OUTSIDE RECORDS SUMMARY | 2023-10-28 13:42 | XMS_ITS | Encounter Summary ---
Author Name Unknown Organization [facility] er Address [address] [place] [address] Care Team Providers Care Vehicle Delivery Worker Name Role Phone Hali Soriano APRN Primary Care Provider Encounter Details Date Type Department Care Team (Latest Contact Info) Description 09/05/2023 Anticoagulation - Warfarin Visit SE [facility]/Internal Medicine - Third Floor 210 th [place], [place] [phone] Anna Betts, ROBERT 210 [facility] [place] [address] assisted current use of anticoagulant (Primary Dx); Other [...] often do you attend chur ch or yazidi services? 1 to 4 times per year 04/24/2022 Do you belong to any clubs o r organizations such as uatsdin groups, unions, fraternal [...] Date Recorded PHQ-9 Total Score 1 04/24/2022 [facility] Questionnaire Answer Date [...] slept in a assisted (including now)? No 04/24/2022 Sex and Gender Information Value Date Recorded Sex Assigned at Not on file Gender Identity Not on file Sexual Orientation Not on file documented as of this encounter Progress Notes * Anna Betts RN - 09/05/2023 4:42 PM CST Anticoagulation Clinic INR RESULTS: INR (no units) Date Value 09/05/2023 2.30 (A) DOSE PLAN: 4mg every Mon, Wed, Fri; 2mg all other days DOSE CHANGE: No change NEXT INR: 09/19/23 INR results not reviewed with patient. INR is within patient's goal range and dosing instructions have not been changed. Patient is a home liz CTOR CHEMISTRY documented in this encounter Plan of Treatment Upcoming Encounters Date Type Department Care Team (Late st Contact Info) Description 10/31/2023 11:00 AM DIRECTOR CHEMISTRY Office Visit [place] [address] [place] [address] Hali Soriano, BOX ATTACHER [address] [place] [address] documented as of this encounter Procedures Procedure Name Priority Date/Time Associated Diagnosis Comments PROTIME-INR Routine 09/05/2023 documented in this encounter Results * (ABNORMAL) Protime-INR (09/05/2023) INR 2.30(A) 0.9 - 1.1 HOME HEALT H POINT [...] documented as of this encounter Care Teams Vehicle Delivery Worker Relationship Specialty Start Date End Date Hali Soriano APRN [address] [place] [address] PCP - General Family Medicine 08/02/23 documented as of this encounter
--- OUTSIDE RECORDS SUMMARY | 2023-10-28 13:42 | XMS_ITS | Encounter Summary ---
Author Name Unknown Organization [facility] er Address [address] [place] [address] Care Team Providers Care Mine Captain Name Role Phone Hali Soriano APRN Primary Care Provider Encounter Details Date Type Department Care Team (Late st Contact Info) Description 10/03/2023 Telephone [place] [address] [place] [id number] Adarsh Carpenter MD [address] [place] [address] Social History Tobacco Use Types Packs/Day Years [...] How often do you attend chur or rastafarian services? 1 to 4 times per year 09/19/2023 Do you belong to any clubs o r organizations such as protestant groups, unions, fraternal [...] Date Recorded PHQ-9 Total Score 2 09/19/2023 [facility] of Occupat ional Health - [...] Telephone Encounter - Lakisha Rucker RN - 10/04/2023 3:56 PM CST Noted. ITIES MANAGER * Telephone Encounter - Adarsh Carpenter MD - 10/04/2023 3:51 PM CST The patient recently had skull x-rays done to evaluate what turned up to be most likely a benign bony osseous lesion on the front of his scalp. The CT scan would further define this lesion but probably likely not change coordinator. It is appropriate for the patient to decline at this time. ITIES MANAGER * Telephone Encounter - Sofia Denson RN - 10/04/2023 10:38 AM CST FYI only. ITIES MANAGER * Telephone Encounter - Lalitha Pathak - 10/04/2023 10:28 AM CST Spouse called regarding possible CT scan. Pt not interested at this time. Requested that Dr. Carpenter know this as well. Advise. [phone]. ITIES MANAGER * Telephone Encounter - Sofia Denson RN - 10/03/2023 11:25 AM CST Noted will await return call. ITIES MANAGER documented in this encounter Plan of Treatment Upcoming Encounters Date Type Department Care Team (Late st Contact Info) Description 10/31/2023 11:00 AM UTILITIES MANAGER Office Visit [address] [address] Hali Soriano APRN [address] [place] [address] documented as of this encounter Visit Diagnoses Not on filedocumented in this encounter Additional Health Concerns Infection Onset Date Last Indicated Resolved Time MSSA 08/02/2023 08/02/2023 documented as of this encounter Care Teams Mine Captain Relationship Specialty Start Date End Date Hali Soriano APRN [address] [place] [address] PCP - General Family Medicine 08/02/23 documented as of this encounter
--- OUTSIDE RECORDS SUMMARY | 2023-10-28 13:42 | XMS_ITS | Encounter Summary ---
Author Name Unknown Organization [facility] er Address [address] [place] [address] Care Team Providers Care Branch Specialist Name Role Phone Hali Soriano APRN Primary Care Provider Reason for Visit * Reason Onset Date Comments periprocedural recommendations 10/08/2023 Encounter Details Date Type Department Care Team (Late st Contact Info) Description 10/08/2023 Telephone SE Antico/Internal Medicine - Third Floor [address] [place] [address] Elli Campbell PA-C 210 [place] [address] periprocedural recommendations Social History Tobacco Use Types Packs/Day Years [...] often do you attend chur ch or restorationism services? 1 to 4 times per year 09/19/2023 Do you belong to any clubs o r organizations such as rastafarian groups, unions, fraternal [...] Recorded PHQ-9 Total Score 2 09/19/2023 [facility] - Occupational Stress Questionnaire Answer Date [...] or slept in a usp (including now)? No 09/19/2023 Sex and Gender Information Value Date Recorded Sex Assigned at Not on file Gender Identity Not on file Sexual Orientation Not on file documented as of this encounter Miscellaneous Notes * Telephone Encounter - Iliana Doyle RN - 10/08/2023 1:08 PM CST Grace-procedural recommendations: Patient is anticoagulated with warfarin for pulmonary embolism without acute cor pulmonale. Patientis scheduled for CYSTOSCOPY, CYSTOLITHALOPAXY, RIGHT RETROGRADE PYELOGRAM, RIGHT URETEROSCOPY WITH LASER LITHOTRIPSY, RIGHT URETERAL STENT PLACEMENT which is low to unknown bleed risk, on 10/16/23. Confirmed with office of proceduralist Osito Pate MD that patient will need INR <1.5 for the procedures. 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 Patient's HAS-BLED score of 2: age 63, labile INR Current recommendations advise to hold Warfarin x 5 days starting 10/11/23 and not to bridge with LMWH in this risk group. Anticoagulation can be resumed the evening of the procedure unless otherwise directed by surgeon. ACC will instruct patient to check INR day before or day of procedure. Please approve/amend. Thank you. EXTINGUISHER REPAIRER documented in this encounter Plan of Treatment Upcoming Encounters Date Type Department Care Team (Late st Contact Info) Description 10/31/2023 11:00 AM FIRE EXTINGUISHER REPAIRER Office Visit [place] [address] [place] [address] Hali Soriano, LIVESTOCK FARMWORKER [address] [place] [address] documented as of this encounter Visit Diagnoses Not on filedocumented in this encounter Additional Health Concerns Infection Onset Date Last Indicated Resolved Time MSSA 08/02/2023 08/02/2023 documented as of this encounter Care Teams Branch Specialist Relationship Specialty Start Date End Date Hali Soriano, LIVESTOCK FARMWORKER [address] [place] [address] PCP - General Family Medicine 08/02/23 documented as of this encounter
--- OUTSIDE RECORDS SUMMARY | 2023-10-28 13:42 | XMS_ITS | Encounter Summary ---
Author Name Unknown Organization [facility] er Address [address] [place] [address] Care Team Providers Care Assembling Machine Operator Name Role Phone Hali Soriano APRN Primary Care Provider Encounter Details Date Type Department Care Team (Late st Contact Info) Description 08/24/2023 Orders Only [place] [address] [place] [address] Adarsh Carpenter MD [address] [place] [address] Cystitis (Primary Dx) Social History Tobacco Use Types Packs/Day [...] often do you attend chur ch or gnosticist services? 1 to 4 times per year [...] Recorded PHQ-9 Total Score 1 04/24/2022 [facility] - Occupational Stress [...] or slept in a custodial (including now)? No 04/24/2022 Sex and Gender Information Value Date Recorded Sex Assigned at Not on file Gender Identity Not on file Sexual Orientation Not on file documented as of this encounter Plan of Treatment Upcoming Encounters Date Type Department Care Team (Late st Contact Info) Description 10/31/2023 11:00 AM DIRECTOR MEDICAL SAFETY Office Visit [place] [facility] [address] [place] [address] Hali Soriano APRN [address] [place] [address] Scheduled Orders Name Type Priority Associated Diagnoses Orde r Schedule Urine culture Microbiology Routine Cystitis 1 Occurrences starting 08/24/2023 until 08/24/2024 Urinalysis with reflex microscopic Lab Routine Cystitis Expected: 10/23/2023, Expires: 08/24/2024 documented as of this encounter Visit Diagnoses Diagnosis Cystitis- Primary Unspecified cystitis documented in this encounter Additional Health Concerns Infection Onset Date Last Indicated Resolved Time MSSA 08/02/2023 08/02/2023 documented as of this encounter Care Teams Assembling Machine Operator Relationship Specialty Start Date End Date Hali Soriano APRN [address] [place] [address] PCP - General Family Medicine 08/02/23 documented as of this encounter
--- OUTSIDE RECORDS SUMMARY | 2023-10-28 13:42 | XMS_ITS | Encounter Summary ---
Author Name Unknown Organization [facility] er Address [address] [place] [address] Care Team Providers Care Salesperson Books Name Role Phone Hali Soriano APRN Primary Care Provider Reason for Visit * Reason Onset Date Comments UA results 08/17/2023 Encounter Details Date Type Department Care Team (Late st Contact Info) Description 08/17/2023 Telephone [place] [address] [place] [address] Adarsh Carpenter MD [address] [place] [address] UA results Social History Tobacco Use Types Packs/Day Years [...] often do you attend chur ch or mormonism services? 1 to 4 times per year [...] Date Recorded PHQ-9 Total Score 1 04/24/2022 [facility] Answer Date [...] or slept in a prison (including now)? No 04/24/2022 Sex and Gender Information Value Date Recorded Sex Assigned at Not on file Gender Identity Not on file Sexual Orientation Not on file documented as of this encounter Miscellaneous Notes * Telephone Encounter - Adarsh Carpenter MD - 08/17/2023 5:10 PM CST I called Nelia and we decided to put can antibiotic pending the urine culture when it comes back. LE MACHINE OPERATOR * Telephone Encounter - Makeda Montoya - 08/17/2023 4:41 PM CST Labs are back, please call pt to discuss. LE MACHINE OPERATOR * Telephone Encounter - Lalitha Pathak - 08/17/2023 4:00 PM CST Spouse, Nelia, , inquiring about status of UA, culture, results PSR informed culture is still in process. Still wanted to speak w/nursing. Advise. LE MACHINE OPERATOR documented in this encounter Plan of Treatment Upcoming Encounters Date Type Department Care Team (Late st Contact Info) Description 10/31/2023 11:00 AM WAFFLE MACHINE OPERATOR Office Visit [place] [address] [facility] [address] [place] [address] Hlai Soriano APRN [address] [place] [address] documented as of this encounter Visit Diagnoses Diagnosis Cystitis- Primary Unspecified cystitis documented in this encounter Additional Health Concerns Infection Onset Date Last Indicated Resolved Time MSSA 08/02/2023 08/02/2023 documented as of this encounter Care Teams Salesperson Books Relationship Specialty Start Date End Date Hali Soriano, LOAD OUT PERSON [address] [place] [address] PCP - General Family Medicine 08/02/23 documented as of this encounter
--- OUTSIDE RECORDS SUMMARY | 2023-10-28 13:42 | XMS_ITS | Encounter Summary ---
Author Name Unknown Organization [facility] er Address [address] [place] [address] Care Team Providers Care Elect Equip Maint Eng Name Role Phone Hali Soriano APRN Primary Care Provider Encounter Details Date Type Department Care Team (Late st Contact Info) Description 08/16/2023 1:00 PM CUSTOMER SERVICER Lab [place] [address] [place] [address] Frequency of micturition Social History Tobacco Use Types Packs/Day Years [...] often do you attend chur ch or evangelical services? 1 to 4 times per year 04/24/2022 Do you belong to any clubs o r organizations such as shinto groups, unions, fraternal [...] Date Recorded PHQ-9 Total Score 1 04/24/2022 [facility] Occupat ional Health - Occupational Stress [...] slept in a chcf (including now)? No 04/24/2022 Sex and Gender Information Value Date Recorded Sex Assigned at Not on file Gender Identity Not on file Sexual Orientation Not on file documented as of this encounter Plan of Treatment Upcoming Encounters Date Type Department Care Team (Late st Contact Info) Description 10/31/2023 11:00 AM CUSTOMER SERVICER Office Visit [address] [facility] [address] [place] [address] Hali Soriano, DIALS INSPECTOR [address] [place] [address] documented as of this encounter Procedures Procedure Name Priority Date/Time Associated Diagnosis Comments URINALYSIS-MICROSCOP IC EXAM (REFLEXED) Routine 08/16/2023 1:09 PM CUSTOMER SERVICER Frequency of micturition URINALYSIS WITH REFLEX MICROSCOPIC Routine 08/16/2023 1:09 PM CUSTOMER SERVICER Frequency of micturition URINE CULTURE Routine 08/16/2023 1:09 PM CUSTOMER SERVICER Frequency of micturition documented in this encounter Results * (ABNORMAL) Urinalysis-Microscopic Exam (08/16/2023 1:09 PM CUSTOMER SERVICER) Casts, urine NONE SEEN 0-2 Hyaline /lpf 08/17/2023 1:43 PM CUSTOMER SERVICER [facility] Significant casts, urine NONE SEEN None Seen /lpf 08/17/2023 1:43 PM CUSTOMER SERVICER [facility] RBC, Urine 4-10(A) 0 - 3 /hpf 08/17/2023 1:43 PM CUSTOMER SERVICER [facility] WBC, Urine >100(A) /hpf 08/17/2023 1:43 PM CUSTOMER SERVICER [facility] Comment: Male: ?? 0-3/hpf Female: 0-10/hpf Squamous Epithelial, Urine NONE SEEN Few /lpf 08/17/2023 1:43 PM CUSTOMER SERVICER [facility] Trans Epithelial, Urine NONE SEEN 0 - 3 /hpf 08/17/2023 1:43 PM CUSTOMER SERVICER [facility] Renal Tubular Cells, Urine NONE SEEN 0 - 1 /hpf 08/17/2023 1:43 PM CUSTOMER SERVICER [facility] Bacteria, Urine 2+(A) None Seen - Few /hpf 08/17/2023 1:43 PM CUSTOMER SERVICER [facility] 08/16/2023 1:09 PM CUSTOMER SERVICER 08/17/2023 12:13 PM CUSTOMER SERVICER Adarsh Carpenter MD LAB URINE ORDERABLES Performing Organization Address [facility]/ZIP Co de Phone Number [facility] [address] [place], [place] [phone] * (ABNORMAL) Urine culture (08/16/2023 1:09 PM CUSTOMER SERVICER) Urine Culture Enterococcus faecalis >100,000 cfu/ml (A) 08/19/2023 9:49 AM CUSTOMER SERVICER [facility] Urine (Saenz Insert) 08/16/2023 1:09 PM CUSTOMER SERVICER 08/17/2023 12:13 PM CUSTOMER SERVICER Comment:Urine Culture Narrative Organism Antibiotic Method Susceptibility Enterococcus faecalis Ampicillin <=2 mcg/mL: Susceptible Enterococcus faecalis Ciprofloxacin 2 mcg/mL: Intermediate Enterococcus faecalis Nitrofurantoin <=32 mcg/mL: Susceptible Enterococcus faecalis Penicillin 2 mcg/mL: Susceptible Enterococcus faecalis Vancomycin 2 mcg/mL: Susceptible Adarsh Carpenter MD LAB MICROBIOLOGY - G ENERAL ORDERABLES Performing Organization Address City/[facility]/ZIP Co de Phone Number [facility] [address] [place], [place] [phone] * (ABNORMAL) Urinalysis with reflex microscopic (08/16/2023 1:09 PM CUSTOMER SERVICER) Type CLEAN CATCH 08/16/2023 1:18 PM CUSTOMER SERVICER [facility] Color, Urine YELLOW YELLOW 08/16/2023 1:18 PM CUSTOMER SERVICER [place] Clarity, Urine CLEAR CLEAR 08/16/2023 1:18 PM CUSTOMER SERVICER [place] Glucose, Urine NEGATIVE NEGATIVE mg/dL 08/16/2023 1:18 PM CUSTOMER SERVICER [place] Bilirubin, Urine NEGATIVE NEGATIVE 08/16/2023 1:18 PM CUSTOMER SERVICER [place] Ketones, Urine TRACE(A) NEGATIVE mg/dL 08/16/2023 1:18 PM CUSTOMER SERVICER [place] Specific [place], Urine 1.025 1.000 ->=1.030 08/16/2023 1:18 PM CUSTOMER SERVICER [place] Blood, Urine SMALL(A) NEGATIVE 08/16/2023 1:18 PM CUSTOMER SERVICER [place] pH, Urine 5.5 5.0 - 7.0 08/16/2023 1:18 PM CUSTOMER SERVICER [place] Protein, Urine 30(A) NEGATIVE-TRA CE mg/dL 08/16/2023 1:18 PM CUSTOMER SERVICER [facility] Urobilinogen, Urine 1.0 0.2 - 1.0 E.U./dL 08/16/2023 1:18 PM CUSTOMER SERVICER [place] Nitrite, Urine NEGATIVE NEGATIVE 08/16/2023 1:18 PM CUSTOMER SERVICER [facility] Leukocytes, Urine SMALL(A) NEGATIVE 08/16/2023 1:18 PM CUSTOMER SERVICER [facility] Urine (Saenz Insert) 08/16/2023 1:09 PM CUSTOMER SERVICER 08/16/2023 1:10 PM CUSTOMER SERVICER Adarsh Carpenter MD LAB URINE ORDERABLES [facility] [address] [place] [address] documented in this encounter Visit Diagnoses Diagnosis Frequency of micturition Urinary frequency documented in this encounter Additional Health Concerns Infection Onset Date Last Indicated Resolved Time MSSA 08/02/2023 08/02/2023 documented as of this encounter Care Teams Elect Equip Maint Eng Relationship Specialty Start Date End Date Hali Soriano, DIALS INSPECTOR [address] [place] [address] PCP - General Family Medicine 08/02/23 documented as of this encounter
--- OUTSIDE RECORDS SUMMARY | 2023-10-28 13:43 | XMS_ITS | Encounter Summary ---
Author Name Unknown Organization [facility] er Address [address] [place] [address] Care Team Providers Care Hand Hardener Name Role Phone Adarsh Carpenter MD Primary Care Provider [phone] Encounter Details Date Type Department Care Team (Late st Contact Info) Description 07/06/2023 Orders Only [place] [address] [place] [address] Hali Soriano, SECURITY FLEX OFFICER [address] [place] [address] Acute cystitis with hematuria (Primary Dx) Social History Tobacco Use Types [...] often do you attend chur ch or catholic services? 1 to 4 times per year 04/24/2022 Do you belong to any clubs o r organizations such as moravian groups, unions, fraternal [...] Date Recorded PHQ-9 Total Score 1 04/24/2022 [facility] - Occupational [...] in a nursing home (including now)? No 04/24/2022 Sex and Gender Information Value Date Recorded Sex Assigned at Not on file Gender Identity Not on file Sexual Orientation Not on file documented as of this encounter Plan of Treatment Upcoming Encounters Date Type Department Care Team (Late st Contact Info) Description 10/31/2023 11:00 AM ELECTRICAL HIGH TENSION TESTER Office Visit [place] [address] [place] [address] Hali Soriano, SECURITY FLEX OFFICER [address] [place] [address] documented as of this encounter Visit Diagnoses Diagnosis Acute cystitis with hematuria- Primary documented in this encounter Additional Health Concerns Infection Onset Date Last Indicated Resolved Time MSSA 06/19/2023 07/04/2023 07/17/2023 2:29 PM CDT documented as of this encounter Care Teams Hand Hardener Relationship Specialty Start Date End Date Adarsh Carpenter MD [address] [place] [phone] PCP - General 05/07/18 07/18/23 documented as of this encounter
--- OUTSIDE RECORDS SUMMARY | 2023-10-28 13:43 | XMS_ITS | Encounter Summary ---
Author Name Unknown Organization [facility] er Address [address] [place] [address] Care Team Providers Care Kitchen Designer Name Role Phone Wade Donovan MD Primary Care Provider [phone] Encounter Details Date Type Department Care Team (Latest Contact Info) Description 07/25/2023 Anticoagulation - Warfarin Visit [facility]/Internal Medicine - Third Floor [address] [place] [address] Anna Betts, RN [address] [facility] [place] [address] terminal makeup operator current use of anticoagulant (Primary Dx); Other [...] often do you attend chur ch or taoism services? 1 to 4 times per year 04/24/2022 Do you belong to any clubs o r organizations such as episcopal groups, unions, fraternal [...] Date Recorded PHQ-9 Total Score 1 04/24/2022 [facility] Questionnaire Answer Date Recorded [...] Progress Notes * Anna Betts RN - 07/25/2023 10:04 AM CDT Anticoagulation Clinic INR RESULTS: INR (no units) Date Value 07/25/2023 2.30 (A) DOSE PLAN: 2mg every e, , Sat; 4mg all other days DOSE CHANGE: No change NEXT INR: 08/08/23 INR results not reviewed with patient. INR is within patient's goal range and dosing instructions have not been changed. AVS mailed to patient. Patient is a home liz. documented in this encounter Plan of Treatment Upcoming Encounters Date Type Department Care Team (Late st Contact Info) Description 10/31/2023 11:00 AM PASSENGER SERVICE AGENT Office Visit [place] [address] [place] [address] Hali Soriano, PRODUCTION TEAM MANAGER [address] [place] [address] documented as of this encounter Procedures Procedure Name Priority Date/Time Associated Diagnosis Comments PROTIME-INR Routine 07/25/2023 documented in this encounter Results * (ABNORMAL) Protime-INR (07/25/2023) INR 2.30(A) 0.9 - 1.1 HOME HEALT H POINT OF CARE TESTING Protime HOME HEALT H POINT OF CARE TESTING Blood (Blood, Venous) Historical Provider LAB BLOOD ORDERAB LES HOME HEALTH POINT OF CARE TESTING documented in this encounter Visit Diagnoses Diagnosis group home current use of anticoagulant- Primary Other pulmonary embolism without acute cor pulmonale, unspecified chronicity (HCC) documented in this encounter Care Teams Kitchen Designer Relationship Specialty Start Date End Date Wade Donovan MD [address] [place] [address] PCP - General 07/19/23 08/01/23 documented as of this encounter
--- OUTSIDE RECORDS SUMMARY | 2023-10-28 13:43 | XMS_ITS | Encounter Summary ---
Author Name Unknown Organization [facility] er Address [address] [place] [address] Care Team Providers Care Patcher Name Role Phone Hali Soriano APRN Primary Care Provider Encounter Details Date Type Department Care Team (Latest Contact Info) Description 08/08/2023 Anticoagulation - Warfarin Visit [facility]/Internal Medicine - Third Floor [address] [place] [id number] Gregoria Bustamante, ROBERT [address] [facility] [place] [address] ad terminal makeup operator current use of anticoagulant (Primary Dx) Social History Tobacco Use Types [...] often do you attend chur ch or mandaen services? 1 to 4 times per year 04/24/2022 Do you belong to any clubs o r organizations such as jewish groups, unions, fraternal [...] Date Recorded PHQ-9 Total Score 1 04/24/2022 [facility] - Occupational [...] or slept in a alf (including now)? No 04/24/2022 Sex and Gender Information Value Date Recorded Sex Assigned at Not on file Gender Identity Not on file Sexual Orientation Not on file documented as of this encounter Progress Notes * Gregoria Bustamante RN - 08/08/2023 11:13 AM CST Anticoagulation Clinic INR RESULTS: INR (no units) Date Value 08/08/2023 3.50 (A) DOSE PLAN: One time dose reduction to 2 mg 08/08/23, then resume 2 mg every e, Sondra, Sat; 4 mg all other days NEXT INR: 08/22/23 INR results reviewed with the patient's spouse Nelia. She reported that patient is taking Macrobid for a UTI however Macrobid does not have a know interaction with warfarin. Nelia also reported that patient's diet has been different the last week and he hasn't been sleeping well. She verbalized understanding of anticoagulation dose plan and date of next INR. AVS mailed to the patient. R THERMAL TECHNICIAN documented in this encounter Plan of Treatment Upcoming Encounters Date Type Department Care Team (Late st Contact Info) Description 10/31/2023 11:00 AM SOLAR THERMAL TECHNICIAN Office Visit [place] [address] [facility] 20 [place] [address] Hali Soriano, REINFORCED IRONWORKER [address] [place] [address] documented as of this encounter Procedures Procedure Name Priority Date/Time Associated Diagnosis Comments PROTIME-INR Routine 08/08/2023 documented in this encounter Results * (ABNORMAL) Protime-INR (08/08/2023) INR 3.50(A) 0.9 - 1.1 HOME HEALT H POINT OF CARE TESTING Protime HOME HEALT H POINT OF CARE TESTING Blood (Blood, Venous) Narrative Resulting Agency Comment [facility] fax. 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
--- OUTSIDE RECORDS SUMMARY | 2023-10-28 13:43 | XMS_ITS | Encounter Summary ---
Author Name Unknown Organization [facility] er Address [address] [place] [address] Care Team Providers Care Federal Java Developer Name Role Phone Adarsh Carpenter MD Primary Care Provider [phone] Encounter Details Date Type Department Care Team (Late st Contact Info) Description 07/08/2023 Orders Only [place] [address] [place] [address] Adarsh Carpenter MD [address] [place] [address] Frequency of micturition (Primary Dx); History of UTI Social History Tobacco Use Types Packs/Day Years [...] any clubs o r organizations such as islam groups, unions, fraternal [...] Date Recorded PHQ-9 Total Score 1 04/24/2022 [facility] - Occupational Stress Questionnaire Answer Date [...] st Contact Info) Description 10/31/2023 11:00 AM RISK MANAGEMENT INTERNSHIP Office Visit [place] [address] [facility] 20 [place] [address] Hali Soriano, MEDICAL AIDES TEACHER [address] [place] [address] documented as of this encounter Results * (ABNORMAL) Urine culture (08/02/2023 10:34 AM CDT) Urine Culture Staphylococcus aureus >100,000 cfu/ml Use oxacillin interpretation to predict results for anti-staphylococc al beta-lactam antibiotics (except ceftaroline). (A) 08/04/2023 8:50 AM CDT [facility] Urine (Saenz Insert) 08/02/2023 10:34 AM CDT 08/03/2023 12:05 PM CDT Comment:Urine Culture Narrative Organism Antibiotic Method Susceptibility Staphylococcus aureus Nitrofurantoin <=32 mcg/mL: Susceptible Staphylococcus aureus Oxacillin <=0.25 mcg/mL: Susceptible Staphylococcus aureus Tetracycline <=4 mcg/mL: Susceptible Staphylococcus aureus Trimeth/Sulfa <=0.5/9.5 mcg/mL: Susceptible Adarsh Carpenter MD LAB MICROBIOLOGY - [facility] ORDERABLES [facility] [address] [place] [address] documented in this encounter Visit Diagnoses Diagnosis Frequency of micturition- Primary Urinary frequency History of UTI documented in this encounter Additional Health Concerns Infection Onset Date Last Indicated Resolved Time MSSA 06/19/2023 07/04/2023 07/17/2023 2:29 PM CDT documented as of this encounter Care Teams Federal Java Developer Relationship Specialty Start Date End Date Adarsh Carpenter MD [address] [facility] 20 [place] [address] PCP - General 05/07/18 07/18/23 documented as of this encounter
--- OUTSIDE RECORDS SUMMARY | 2023-10-28 13:43 | XMS_ITS | Encounter Summary ---
Author Name Unknown Organization [facility] er Address [address] [place] [address] Care Team Providers Care Automotive Parts Counterperson Name Role Phone Hali Soriano APRN Primary Care Provider Encounter Details Date Type Department Care Team (Late st Contact Info) Description 08/02/2023 Telephone [place] [address] [place] [address] Adarsh Carpenter MD [address] [place] [address] Social History Tobacco Use Types Packs/Day Years [...] How often do you attend chur or latter-day services? 1 to 4 times per year [...] [facility] - Occupational Stress Questionnaire Answer Date [...] slept in a detention (including now)? No 04/24/2022 Sex and Gender Information Value Date Recorded Sex Assigned at Not on file Gender Identity Not on file Sexual Orientation Not on file documented as of this encounter Miscellaneous Notes * Telephone Encounter - Adarsh Carpenter MD - 08/07/2023 3:27 PM CST Noted ING TANK WORKER * Telephone Encounter - Sofia Denson RN - 08/07/2023 3:24 PM CST Patient's informed, he does have an appointment with urology on 08/15/23. ING TANK WORKER * Telephone Encounter - Adarsh Carpenter MD - 08/07/2023 3:02 PM CST I have placed an order for both a UA and UC to be done in approximately 3 days after he is off antibiotics should be good. Did Dhruv get a Urology consult set up? ING TANK WORKER * Telephone Encounter - Sofia Denson RN - 08/07/2023 11:47 AM CST They stopped in today wanting info on his most recent Urine culture. RN reviewed and it looks like it is the same bacteria that was present in his last urine culture. Patients wanted to know if you want her to drop off another urine sample 3 days after stopping the antibiotic? ING TANK WORKER * Telephone Encounter - Sofia Denson RN - 08/02/2023 1:13 PM CDT Please let Dr. Carpenter know the urology clinic information when she calls back. * Telephone Encounter - Vidhya Bain LPN - 08/02/2023 11:14 AM CDT When Anyi stopped in to drop off Hans's urine today she pulled the HEMODIALYSIS CHARGE NURSE to explain it. She statedthat she would like to get Hans started on an antibiotic today (deon). She feels that he currentlyhas a UTI and would like to have a broad spectrum sent in. She stated he has been off antibiotics since last Sunday now. She wanted to make sure Dr. Carpenter got this message. Family Darien Fischer documented in this encounter Plan of Treatment Upcoming Encounters Date Type Department Care Team (Late st Contact Info) Description 10/31/2023 11:00 AM SOAKING TANK WORKER Office Visit [place] [address] [place] [address] Hali Soriano, WASTEWATER DESIGN ENGINEER [address] [place] [address] documented as of this encounter Results * (ABNORMAL) Urine culture (08/16/2023 1:09 PM SOAKING TANK WORKER) Urine Culture Enterococcus faecalis >100,000 cfu/ml (A) 08/19/2023 9:49 AM SOAKING TANK WORKER [facility] Urine (Saenz Insert) 08/16/2023 1:09 PM SOAKING TANK WORKER 08/17/2023 12:13 PM SOAKING TANK WORKER Comment:Urine Culture Narrative Organism Antibiotic Method Susceptibility Enterococcus faecalis Ampicillin <=2 mcg/mL: Susceptible Enterococcus faecalis Ciprofloxacin 2 mcg/mL: Intermediate Enterococcus faecalis Nitrofurantoin <=32 mcg/mL: Susceptible Enterococcus faecalis Penicillin 2 mcg/mL: Susceptible Enterococcus faecalis Vancomycin 2 mcg/mL: Susceptible Adarsh Carpenter MD LAB MICROBIOLOGY - G ENERAL ORDERABLES [facility] [address] [place] [address] * (ABNORMAL) Urinalysis with reflex microscopic (08/16/2023 1:09 PM SOAKING TANK WORKER) Type CLEAN CATCH 08/16/2023 1:18 PM SOAKING TANK WORKER [facility] Color, Urine YELLOW YELLOW 08/16/2023 1:18 PM SOAKING TANK WORKER [facility] Clarity, Urine CLEAR CLEAR 08/16/2023 1:18 PM SOAKING TANK WORKER [facility] Glucose, Urine NEGATIVE NEGATIVE mg/dL 08/16/2023 1:18 PM SOAKING TANK WORKER [facility] Bilirubin, Urine NEGATIVE NEGATIVE 08/16/2023 1:18 PM SOAKING TANK WORKER [facility] Ketones, Urine TRACE(A) NEGATIVE mg/dL 08/16/2023 1:18 PM SOAKING TANK WORKER [facility] Specific [place], Urine 1.025 1.000 ->=1.030 08/16/2023 1:18 PM SOAKING TANK WORKER [facility] Blood, Urine SMALL(A) NEGATIVE 08/16/2023 1:18 PM SOAKING TANK WORKER [facility] pH, Urine 5.5 5.0 - 7.0 08/16/2023 1:18 PM SOAKING TANK WORKER [facility] Protein, Urine 30(A) NEGATIVE-TRA CE mg/dL 08/16/2023 1:18 PM SOAKING TANK WORKER [facility] Urobilinogen, Urine 1.0 0.2 - 1.0 E.U./dL 08/16/2023 1:18 PM SOAKING TANK WORKER [facility] Nitrite, Urine NEGATIVE NEGATIVE 08/16/2023 1:18 PM SOAKING TANK WORKER [facility] Leukocytes, Urine SMALL(A) NEGATIVE 08/16/2023 1:18 PM SOAKING TANK WORKER [facility] Urine (Saenz Insert) 08/16/2023 1:09 PM SOAKING TANK WORKER 08/16/2023 1:10 PM SOAKING TANK WORKER Adarsh Carpenter MD LAB URINE ORDERABLES [facility] [address] [place] [address] documented in this encounter Visit Diagnoses Diagnosis Frequency of micturition- Primary Urinary frequency documented in this encounter Additional Health Concerns Infection Onset Date Last Indicated Resolved Time MSSA 08/02/2023 08/02/2023 documented as of this encounter Care Teams Automotive Parts Counterperson Relationship Specialty Start Date End Date Hali Soriano APRN [address] [place] [id number] PCP - General Family Medicine 08/02/23 documented as of this encounter
--- OUTSIDE RECORDS SUMMARY | 2023-10-28 13:43 | XMS_ITS | Encounter Summary ---
Author Name Unknown Organization [facility] er Address [address] [place] [address] Care Team Providers Care Region Manager Name Role Phone Wade Donovan MD Primary Care Provider [phone] Encounter Details Date Type Department Care Team (Late st Contact Info) Description 07/18/2023 Orders Only [place] [address] [place] [address] Adarsh Carpenter MD [address] [place] [address] Social History Tobacco Use Types Packs/Day Years [...] How often do you attend chur or quaker services? 1 to 4 times per year 04/24/2022 Do you belong to any clubs o r organizations such as religious groups, unions, fraternal or athletic groups, or [...] Recorded PHQ-9 Total Score 1 04/24/2022 [facility] - Occupational Stress Questionnaire Answer Date [...] slept in a fci (including now)? No 04/24/2022 Sex and Gender Information Value Date Recorded Sex Assigned at Not on file Gender Identity Not on file Sexual Orientation Not on file documented as of this encounter Plan of Treatment Upcoming Encounters Date Type Department Care Team (Late st Contact Info) Description 10/31/2023 11:00 AM MANAGER PSYCHIATRY Office Visit [address] [address] Hali Soriano, GARLAND MAKER [address] [place] [address] documented as of this encounter Visit Diagnoses Not on filedocumented in this encounter Care Teams Region Manager Relationship Specialty Start Date End Date aWde Donovan MD [address] [place] [phone] PCP - General 07/19/23 08/01/23 documented as of this encounter
--- OUTSIDE RECORDS SUMMARY | 2023-10-28 13:43 | XMS_ITS | Encounter Summary ---
Author Name Unknown Organization [facility] er Address [address] [place] [address] Care Team Providers Care Cone Sewer Name Role Phone Adarsh Carpenter MD Primary Care Provider [phone] Encounter Details Date Type Department Care Team (Late st Contact Info) Description 07/06/2023 Orders Only [place] [address] [place] [address] Hali Soriano, SENIOR SALES OPERATIONS ANALYST [address] [place] [address] Social History Tobacco Use Types Packs/Day Years [...] How often do you attend chur or zoroastrian services? 1 to 4 times per year 04/24/2022 Do you belong to any clubs o r organizations such as yazidi groups, unions, fraternal [...] Date Recorded PHQ-9 Total Score 1 04/24/2022 [facility] - Occupational Stress Questionnaire Answer Date [...] in a care home (including now)? No 04/24/2022 Sex and Gender Information Value Date Recorded Sex Assigned at Not on file Gender Identity Not on file Sexual Orientation Not on file documented as of this encounter Plan of Treatment Upcoming Encounters Date Type Department Care Team (Late st Contact Info) Description 10/31/2023 11:00 AM STUDENT LIFE ADVISOR Office Visit [address] [address] Hali Soriano, SENIOR SALES OPERATIONS ANALYST [address] [place] [address] documented as of this encounter Visit Diagnoses Not on filedocumented in this encounter Additional Health Concerns Infection Onset Date Last Indicated Resolved Time MSSA 06/19/2023 07/04/2023 07/17/2023 2:29 PM CDT documented as of this encounter Care Teams Cone Sewer Relationship Specialty Start Date End Date Adarsh Carpenter MD [address] [place] [phone] PCP - General 05/07/18 07/18/23 documented as of this encounter
--- OUTSIDE RECORDS SUMMARY | 2023-10-28 13:43 | XMS_ITS | Encounter Summary ---
Author Name Unknown Organization [facility] er Address [address] [place] [address] Care Team Providers Care Sexual Assault Counselor Name Role Phone Adarsh Carpenter MD Primary Care Provider [phone] Encounter Details Date Type Department Care Team (Late st Contact Info) Description 07/06/2023 Orders Only [place] [address] [place] [address] Hali Soriano, MAST MAKER [address] [place] [address] Acute cystitis with hematuria (Primary Dx) Social [...] often do you attend chur ch or samaritan services? 1 to 4 times per year 04/24/2022 Do you belong to any clubs o r organizations such as anabaptism groups, unions, fraternal [...] Date Recorded PHQ-9 Total Score 1 04/24/2022 [facility] - Occupational Stress [...] st Contact Info) Description 10/31/2023 11:00 AM GRINDER AND PLATER Office Visit [place] [address] [place] [address] Hali Soriano, MAST MAKER [address] [place] [address] documented as of this encounter Visit Diagnoses Diagnosis Acute cystitis with hematuria- Primary documented in this encounter Additional Health Concerns Infection Onset Date Last Indicated Resolved Time MSSA 06/19/2023 07/04/2023 07/17/2023 2:29 PM CDT documented as of this encounter Care Teams Sexual Assault Counselor Relationship Specialty Start Date End Date Adarsh Carpenter MD [address] [place] [phone] PCP - General 05/07/18 07/18/23 documented as of this encounter
--- OUTSIDE RECORDS SUMMARY | 2023-10-28 13:43 | XMS_ITS | Encounter Summary ---
Author Name Unknown Organization [facility] er Address [address] [place] [address] Care Team Providers Care Reel And Rewinder Operator Name Role Phone Adarsh Carpenter MD Primary Care Provider [phone] Encounter Details Date Type Department Care Team (Latest Contact Info) Description 07/18/2023 Anticoagulation - Warfarin Visit [facility] Antico/Internal Medicine - Third Floor [address] [place] [phone] Gregoria Bustamante, ROBERT [address] [place] [address] bed bug exterminator current use of anticoagulant (Primary Dx) Social [...] How often do you attend chur or congregation services? 1 to 4 times per year 04/24/2022 Do you belong to any clubs o r organizations such as holiness groups, unions, fraternal [...] Date Recorded PHQ-9 Total Score 1 04/24/2022 [facility] - Occupational Stress Questionnaire Answer Date [...] Progress Notes * Gregoria Bustamante RN - 07/18/2023 11:44 AM CDT Anticoagulation Clinic - RN Protocol Screening INR RESULTS: INR (no units) Date Value 07/18/2023 4.00 (A) DOSE PLAN: Hold 07/18/23, then resume 2 mg every e, Sondra, Sat; 4 mg all other days NEXT INR: 07/25/23 VERIFY PREVIOUS DOSE PLAN Verified MISSED/EXTRA DOSES No MEDICATION CHANGES No DIET OR ALCOHOL CHANGES Yes, Has been eating less vitamin K foods, plans to resume previous intake. RECENT ILLNESS/ HOSPITALIZATIONS No ABNORMAL BLEEDING OR BRUISING Yes, minimal bleeding with catheter insertion FALLS OR INJURIES No NEW PAIN SYMPTOMS No NEW SHORTNESS OF BREATH No NEW NEUROLOGICAL SYMPTOMS No INR results reviewed with the patient's spouse Nelia. She verbalized understanding of anticoagulationdose plan and date of next INR. Patient is a home liz. AVS sent through [employer]. documented in this encounter Plan of Treatment Upcoming Encounters Date Type Department Care Team (Late st Contact Info) Description 10/31/2023 11:00 AM OUTSIDE PROPERTY AGENT Office Visit [place] [address] [address] NomiHali tarangoLatanya, PUBLIC ADDRESS ANNOUNCER [address] [place] [address] documented as of this encounter Procedures Procedure Name Priority Date/Time Associated Diagnosis Comments PROTIME-INR Routine 07/18/2023 documented in this encounter Results * (ABNORMAL) Protime-INR (07/18/2023) INR 4.00(A) 0.9 - 1.1 HOME HEALT H POINT OF CARE TESTING Protime HOME HEALT H POINT OF CARE TESTING Blood (Blood, Venous) Narrative Resulting Agency Comment [employer] fax. Historical Provider LAB BLOOD ORDERAB LES HOME HEALTH POINT OF CARE TESTING documented in this encounter Visit Diagnoses Diagnosis skilled nursing current use of anticoagulant- Primary documented in this encounter Care Teams Reel And Rewinder Operator Relationship Specialty Start Date End Date Adarsh Carpenter MD [address] [phone] PCP - General 05/07/18 07/18/23 documented as of this encounter
--- OUTSIDE RECORDS SUMMARY | 2023-10-28 13:43 | XMS_ITS | Encounter Summary ---
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 1 to 4 times [...] Date Recorded PHQ-9 Total Score 1 04/24/2022 [facility] - Occupational Stress Questionnaire Answer Date [...] Progress Notes * Gregoria Bustamante RN - 07/09/2023 4:00 PM CDT Anticoagulation Clinic INR RESULTS: INR (no units) Date Value 07/09/2023 3.30 (A) DOSE PLAN: One time dose reduction to 2 mg 07/09/23, then resume 2 mg every e, Sondra, Sat; 4 mg all other days NEXT INR: 07/23/23 INR results reviewed with the patient's spouse Nelia. She verbalized understanding of anticoagulationdose plan and date of next INR. Patient is a home liz. documented in this encounter Plan of Treatment Upcoming Encounters Date Type Department Care Team (Late st Contact Info) Description 10/31/2023 11:00 AM STATIONARY ENGINEER SUPERVISOR Office Visit [place] [address] [place], [place] [phone] Hali Soriano, CONTRACTING SPECIALIST [address] [place] [address] documented as of this encounter Procedures Procedure Name Priority Date/Time Associated Diagnosis Comments PROTIME-INR Routine 07/09/2023 documented in this encounter Results * (ABNORMAL) Protime-INR (07/09/2023) INR 3.30(A) 0.9 - 1.1 HOME HEALT H POINT OF CARE TESTING Protime HOME HEALT H POINT OF CARE TESTING Blood (Blood, Venous) Narrative Resulting Agency Comment [employer] fax. 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
--- OUTSIDE RECORDS SUMMARY | 2023-10-28 13:43 | XMS_ITS | Encounter Summary ---
Author Name Unknown Organization [facility] er Address [address] [place] [address] Care Team Providers Care Fws Faculty Assistant Name Role Phone Adarsh Carpenter MD Primary Care Provider [phone] Reason for Visit * Reason Onset Date Comments Meds 07/09/2023 Encounter Details Date Type Department Care Team (Late st Contact Info) Description 07/09/2023 Telephone [place] [address] [place] [address] Adarsh Carpenter MD [address] [place] [address] Meds Social History Tobacco Use Types Packs/Day Years [...] often do you attend chur ch or baptism services? 1 to 4 times per year 04/24/2022 Do you belong to any clubs o r organizations such as voodoo groups, unions, fraternal [...] Date Recorded PHQ-9 Total Score 1 04/24/2022 [facility]ational [facility] Questionnaire Answer [...] in a skilled nursing (including now)? No 04/24/2022 Sex and Gender Information Value Date Recorded Sex Assigned at Not on file Gender Identity Not on file Sexual Orientation Not on file documented as of this encounter Miscellaneous Notes * Telephone Encounter - Sofia Denson RN - 07/09/2023 9:51 AM CDT RN informed Nelia, patient was given Nitrofurantoin first but Nelia informed RN that he just finsihed acourse of the Nitrofurantoin and so the provider changes it to the Bactrim. * Telephone Encounter - Taylor Last - 07/09/2023 9:24 AM CDT Pt has been taking the Bactrim since the appointment last week. Was unsure of what the Nitrofurantoin was for. Has not been taking. Please advise documented in this encounter Plan of Treatment Upcoming Encounters Date Type Department Care Team (Late st Contact Info) Description 10/31/2023 11:00 AM MOUNTER SAXOPHONES Office Visit [place] [address] [facility] [address] [place] [address] Hali Soriano, NUT ROASTER [address] [place] [address] documented as of this encounter Visit Diagnoses Not on filedocumented in this encounter Additional Health Concerns Infection Onset Date Last Indicated Resolved Time MSSA 06/19/2023 07/04/2023 07/17/2023 2:29 PM CDT documented as of this encounter Care Teams Fws Faculty Assistant Relationship Specialty Start Date End Date Adarsh Carpenter MD [address] [facility] [address] [place] [address] PCP - General 05/07/18 07/18/23 documented as of this encounter
--- OUTSIDE RECORDS SUMMARY | 2023-10-28 13:43 | XMS_ITS | Encounter Summary ---
Author Name Unknown Organization [facility] er Address [address] [place] [address] Care Team Providers Care Molder Meat Name Role Phone Hali Soriano APRN Primary Care Provider Encounter Details Date Type Department Care Team (Late st Contact Info) Description 08/04/2023 Orders Only [place] [address] [place] [address] Adarsh Carpenter MD [address] [place] [address] Social History Tobacco Use Types Packs/Day Years [...] How often do you attend chur or zoroastrianism services? 1 to 4 times per year 04/24/2022 Do you belong to any clubs o r organizations such as baptism groups, unions, fraternal [...] Score 1 04/24/2022 [facility] - Occupational Stress Questionnaire Answer [...] slept in a group home (including now)? No 04/24/2022 Sex and Gender Information Value Date Recorded Sex Assigned at Not on file Gender Identity Not on file Sexual Orientation Not on file documented as of this encounter Plan of Treatment Upcoming Encounters Date Type Department Care Team (Late st Contact Info) Description 10/31/2023 11:00 AM VISION TEACHER Office Visit [address] [place] [address] Hali Soriano APRN [address] [place] [address] documented as of this encounter Visit Diagnoses Not on filedocumented in this encounter Additional Health Concerns Infection Onset Date Last Indicated Resolved Time MSSA 08/02/2023 08/02/2023 documented as of this encounter Care Teams Molder Meat Relationship Specialty Start Date End Date Hali Soriano APRN [address] [place] [address] PCP - General Family Medicine 08/02/23 documented as of this encounter
--- OUTSIDE RECORDS SUMMARY | 2023-10-28 13:43 | XMS_ITS | Encounter Summary ---
Author Name Unknown Organization [facility] er Address [address] [place] [address] Care Team Providers Care Clerk General Office Name Role Phone Hali Soriano APRN Primary Care Provider Encounter Details Date Type Department Care Team (Late st Contact Info) Description 08/02/2023 Orders Only [place] [address] [place] [address] Adarsh Carpenter MD [address] [place] [address] Cystitis (Primary Dx); Frequency of micturition Social History Tobacco Use [...] Date Recorded PHQ-9 Total Score 1 04/24/2022 [facility] - Occupational Stress Questionnaire Answer [...] st Contact Info) Description 10/31/2023 11:00 AM JACK SETTER Office Visit [address] [place] [address] Hali Soriano APRN [address] [place] [address] Scheduled Orders Name Type Priority Associated Diagnoses Orde r Schedule Urinalysis with reflex microscopic Lab Routine Frequency of micturition Expected: 08/02/2023, Expires: 08/02/2024 Urine culture Microbiology Routine Frequency of micturition Expected: 08/02/2023, Expires: 08/02/2024 documented as of this encounter Visit Diagnoses Diagnosis Cystitis- Primary Unspecified cystitis Frequency of micturition Urinary frequency documented in this encounter Care Teams Clerk General Office Relationship Specialty Start Date End Date Hali Soriano APRN [address] [place] [address] PCP - General Family Medicine 08/02/23 documented as of this encounter
--- OUTSIDE RECORDS SUMMARY | 2023-10-28 13:43 | XMS_ITS | Encounter Summary ---
Author Name Unknown Organization [facility] er Address [address] [place] [address] Care Team Providers Care Process Analyst Name Role Phone Hali Soriano APRN Primary Care Provider Encounter Details Date Type Department Care Team (Late st Contact Info) Description 08/02/2023 10:30 AM CDT Lab [place] [address] [place] [address] Frequency of micturition (Primary Dx); Abnormal urine odor; History of UTI Social History Tobacco Use [...] often do you attend chur ch or jainism services? 1 to 4 times per year [...] Date Recorded PHQ-9 Total Score 1 04/24/2022 [facility] - Occupational Stress Questionnaire Answer Date [...] st Contact Info) Description 10/31/2023 11:00 AM JAVA MANAGER Office Visit [address] [place] [address] Hali Soriano, SOLE LEVELER MACHINE [address] [place] [address] documented as of this encounter Procedures Procedure Name Priority Date/Time Associated Diagnosis Comments URINALYSIS-MICROSCOP IC EXAM (REFLEXED) Routine 08/02/2023 10:38 AM CDT Frequency of micturition Abnormal urine odor URINALYSIS WITH REFLEX MICROSCOPIC Routine 08/02/2023 10:38 AM CDT Frequency of micturition Abnormal urine odor URINE CULTURE Routine 08/02/2023 10:34 AM CDT Frequency of micturition History of UTI documented in this encounter Results * (ABNORMAL) Urinalysis-Microscopic Exam (08/02/2023 10:38 AM CDT) Casts, urine NONE SEEN 0-2 Hyaline /lpf 08/03/2023 2:14 PM CDT [facility] Significant casts, urine NONE SEEN None Seen /lpf 08/03/2023 2:14 PM T [facility] RBC, Urine 0-3 0 - 3 /hpf 08/03/2023 2:14 PM [facility] WBC, Urine 51-100(A) /hpf 08/03/2023 2:14 PM T [facility] Comment: Male: ?? 0-3/hpf Female: 0-10/hpf Squamous Epithelial, Urine FEW Few /lpf 08/03/2023 2:14 PM T [facility] Trans Epithelial, Urine NONE SEEN 0 - 3 /hpf 08/03/2023 2:14 PM [facility] Renal Tubular Cells, Urine NONE SEEN 0 - 1 /hpf 08/03/2023 2:14 PM [facility] Bacteria, Urine 1+(A) None Seen - Few /hpf 08/03/2023 2:14 PM [facility] Miscellaneous, urine SEE BELOW 08/03/2023 2:14 PM [facility] Comment: Rare Calcium Oxalate Crystals Present. 08/02/2023 10:3 8 AM CDT 08/03/2023 12:28 PM CDT Adarsh Carpenter MD LAB URINE ORDERABLES [facility] [address] [place] [address] * (ABNORMAL) Urinalysis with reflex microscopic (lab staff release/collect) (08/02/2023 10:38 AM CDT) Type CATH 08/02/2023 10:42 AM CDT [facility] [place] Color, Urine YELLOW YELLOW 08/02/2023 10:42 AM CDT [facility] [place] Clarity, Urine CLEAR CLEAR 08/02/2023 10:42 AM CDT [facility] [place] Glucose, Urine NEGATIVE NEGATIVE mg/dL 08/02/2023 10:42 AM CDT [facility] [place] Bilirubin, Urine NEGATIVE NEGATIVE 08/02/2023 10:42 AM CDT [facility] [place] Ketones, Urine NEGATIVE NEGATIVE mg/dL 08/02/2023 10:42 AM CDT [facility] [place] [place] Specific [place], Urine 1.025 1.000 ->=1.030 08/02/2023 10:42 AM CDT [facility] [place] Blood, Urine LARGE(A) NEGATIVE 08/02/2023 10:42 AM CDT [facility] [place] pH, Urine 5.5 5.0 - 7.0 08/02/2023 10:42 AM CDT [facility] [place] [place] Protein, Urine 100(A) NEGATIVE-TRA CE mg/dL 08/02/2023 10:42 AM CDT [facility] Urobilinogen, Urine 0.2 0.2 - 1.0 E.U./dL 08/02/2023 10:42 AM CDT [facility] Nitrite, Urine POSITIVE(A) NEGATIVE 08/02/2023 10:42 AM CDT [facility] [place] Leukocytes, Urine LARGE(A) NEGATIVE 08/02/2023 10:42 AM CDT [facility] [place] Urine (Urine, Catheter) 08/02/2023 10:38 AM CDT 08/02/2023 10:39 AM CDT Adarsh Carpenter MD LAB URINE ORDERABLES [facility] [address] [place] [address] * (ABNORMAL) Urine culture (08/02/2023 10:34 AM CDT) Urine Culture Staphylococcus aureus >100,000 cfu/ml Use oxacillin interpretation to predict results for anti-staphylococc al beta-lactam antibiotics (except ceftaroline). (A) 08/04/2023 8:50 AM CDT [facility] Urine (Saenz Insert) 08/02/2023 10:34 AM CDT 08/03/2023 12:05 PM CDT Comment:Urine Culture Narrative Organism Antibiotic Method Susceptibility Staphylococcus aureus Nitrofurantoin <=32 mcg/mL: Susceptible Staphylococcus aureus Oxacillin <=0.25 mcg/mL: Susceptible Staphylococcus aureus Tetracycline <=4 mcg/mL: Susceptible Staphylococcus aureus Trimeth/Sulfa <=0.5/9.5 mcg/mL: Susceptible Adarsh Carpenter MD LAB MICROBIOLOGY - G ENERAL ORDERABLES [facility] [address] [place] [address] documented in this encounter Visit Diagnoses Diagnosis Frequency of micturition- Primary Urinary frequency Abnormal urine odor Other nonspecific finding on examination of urine History of UTI documented in this encounter Care Teams Process Analyst Relationship Specialty Start Date End Date Hali Soriano, SOLE LEVELER MACHINE [address] [place] [phone] PCP - General Family Medicine 08/02/23 documented as of this encounter
--- OUTSIDE RECORDS SUMMARY | 2023-10-28 13:43 | XMS_ITS | Encounter Summary ---
Author Name Unknown Organization [facility] er Address [address] [place] [address] Care Team Providers Care Patient Day Coordinator Name Role Phone Adarsh Carpenter MD Primary Care Provider [phone] Encounter Details Date Type Department Care Team (Latest Contact Info) Description 07/04/2023 Anticoagulation - Warfarin Visit [facility]/Internal Medicine - Third Floor [address] [place] [address] Iliana Doyle, RN [address] [place] [address] antenna installer current use of anticoagulant (Primary Dx); Other [...] often do you attend chur ch or christianity services? 1 to 4 times per year [...] Date Recorded PHQ-9 Total Score 1 04/24/2022 [facility] [...] of this encounter Progress Notes * Iliana Doyle RN - 07/04/2023 11:26 AM CDT Anticoagulation Clinic INR RESULTS: INR (no units) Date Value 07/04/2023 2.80 (A) DOSE PLAN: 2 mg every e, Sondra, Sat; 4 mg all other days DOSE CHANGE: No change NEXT INR: 07/18/23 INR results not reviewed with patient. INR is within patient's goal range and dosing instructions have not been changed. Patient is a home liz. * Dolores Cleary RN - 07/04/2023 11:26 AM CDT [facility] noted that patient started Bactrim ( class D interaction) 07/06/23 x 7 days. Nelia is aware that this medication has the potential to interact with warfarin. Patient will check INR 07/09/23. documented in this encounter Plan of Treatment Upcoming Encounters Date Type Department Care Team (Late st Contact Info) Description 10/31/2023 11:00 AM LIFE TRAINER Office Visit [place] [address] [address] Hali Soriano, ANIMAL CARE TAKER [address] [place] [address] documented as of this encounter Procedures Procedure Name Priority Date/Time Associated Diagnosis Comments PROTIME-INR Routine 07/04/2023 documented in this encounter Results * (ABNORMAL) Protime-INR (07/04/2023) INR 2.80(A) 0.9 - 1.1 HOME HEALT H POINT OF CARE TESTING Protime HOME HEALT H POINT OF CARE TESTING Blood (Blood, Venous) Historical Provider LAB BLOOD ORDERAB LES HOME HEALTH POINT OF CARE TESTING documented in this encounter Visit Diagnoses Diagnosis 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 current use of anticoagulant- Primary Other pulmonary embolism without acute cor pulmonale, unspecified chronicity (HCC) documented in this encounter Additional Health Concerns Infection Onset Date Last Indicated Resolved Time MSSA 06/19/2023 07/04/2023 07/17/2023 2:29 PM CDT documented as of this encounter Care Teams Patient Day Coordinator Relationship Specialty Start Date End Date Adarsh Carpenter MD [address] [place] [phone] PCP - General 05/07/18 07/18/23 documented as of this encounter
--- OUTSIDE RECORDS SUMMARY | 2023-10-28 13:43 | XMS_ITS | Encounter Summary ---
Author Name Unknown Organization [facility] er Address [address] [place] [address] Care Team Providers Care Gas Pumper Name Role Phone Adarsh Carpenter MD Primary Care Provider [phone] Encounter Details Date Type Department Care Team (Late st Contact Info) Description 07/06/2023 Telephone [place] [address] [place] [address] Adarsh Carpenter MD [address] [place] [address] Social History Tobacco Use Types Packs/Day Years [...] How often do you attend chur or sabianism services? 1 to 4 times per year [...] Score 1 04/24/2022 [facility]ational Stress Questionnaire Answer [...] Telephone Encounter - Sofia Denson RN - 07/06/2023 4:44 PM CDT Left generic message for Nelia that the antibiotic was changed and sent to [facility]. Requested a call back if there are questions. * Telephone Encounter - Hali Soriano APRN - 07/06/2023 4:41 PM CDT Bactrim sent to pharmacy * Telephone Encounter - Sofia Denson RN - 07/06/2023 4:15 PM CDT Patient's stated that he just finished a prescription of Macrobid and it did not resolve the UTI. She would like to know if there is something else that you could send to [facility]? * Telephone Encounter - Hali Soriano APRN - 07/06/2023 4:13 PM CDT RX sent to pharmacy * Telephone Encounter - Hali Soriano APRN - 07/06/2023 4:13 PM CDT Urine dipstick came back positive for UTI. Antibiotic sent to pharmacy * Telephone Encounter - Sofia Denson RN - 07/06/2023 4:08 PM CDT Can you please review patients urine results from 07/04/[address] Carpenter's absence and advise on treatment plans. documented in this encounter Plan of Treatment Upcoming Encounters Date Type Department Care Team (Late st Contact Info) Description 10/31/2023 11:00 AM TWILL CUTTER Office Visit [address] [address] Hali Soriano APRN [address] [place] [address] documented as of this encounter Visit Diagnoses Not on filedocumented in this encounter Additional Health Concerns Infection Onset Date Last Indicated Resolved Time MSSA 06/19/2023 07/04/2023 07/17/2023 2:29 PM CDT documented as of this encounter Care Teams Gas Pumper Relationship Specialty Start Date End Date Adarsh Carpenter MD [address] [place] [phone] PCP - General 05/07/18 07/18/23 documented as of this encounter
--- OUTSIDE RECORDS SUMMARY | 2023-10-28 13:44 | XMS_ITS | Encounter Summary ---
Author Name Unknown Organization [facility] er Address [address] [place] [address] Care Team Providers Care Finance Advisor Name Role Phone Adarsh Carpenter MD Primary Care Provider [phone] Encounter Details Date Type Department Care Team (Late st Contact Info) Description 06/19/2023 Orders Only [place] [address] [place] [address] Adarsh Carpenter MD [address] [place] [address] Frequency of micturition (Primary Dx) Social History Tobacco Use Types [...] How often do you attend chur or restorationist services? 1 to 4 times per year [...] Date Recorded PHQ-9 Total Score 1 04/24/2022 [facility] - Occupational [...] or slept in a jail (including now)? No 04/24/2022 Sex and Gender Information Value Date Recorded Sex Assigned at Not on file Gender Identity Not on file Sexual Orientation Not on file documented as of this encounter Plan of Treatment Upcoming Encounters Date Type Department Care Team (Late st Contact Info) Description 10/31/2023 11:00 AM MOTORCYCLE FABRICATOR Office Visit [address] [address] Hali Soriano, CROZE CUTTER [address] [place] [address] documented as of this encounter Visit Diagnoses Diagnosis Frequency of micturition- Primary Urinary frequency documented in this encounter Additional Health Concerns Infection Onset Date Last Indicated Resolved Time MSSA 06/19/2023 07/04/2023 07/17/2023 2:29 PM CDT documented as of this encounter Care Teams Finance Advisor Relationship Specialty Start Date End Date Adarsh Carpenter MD [address] [place] [phone] PCP - General 05/07/18 07/18/23 documented as of this encounter
--- OUTSIDE RECORDS SUMMARY | 2023-10-28 13:44 | XMS_ITS | Encounter Summary ---
Author Name Unknown Organization [facility] er Address [address] [place] [address] Care Team Providers Care Stevedore Dock Name Role Phone Adarsh Carpenter MD Primary Care Provider [phone] Encounter Details Date Type Department Care Team (Latest Contact Info) Description 04/18/2023 Anticoagulation - Warfarin Visit [facility]/Internal Medicine - Third Floor [address] [place] [address] Anna Betts, RN [address] [place] [address] supervisor 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s current use of anticoagulant (Primary Dx); Other [...] often do you attend chur ch or episcopal services? 1 to 4 times per year 04/24/2022 Do you belong to any clubs o r organizations such as buddhism groups, unions, fraternal or athletic groups, or [...] Date Recorded PHQ-9 Total Score 1 04/24/2022 [facility]ational [facility] Questionnaire Answer Date Recorded [...] Progress Notes * Anna Betts RN - 04/18/2023 10:21 AM CDT Anticoagulation Clinic INR RESULTS: INR (no units) Date Value 04/18/2023 2.30 (A) DOSE PLAN: 2mg every e, Thur, Sat; 4mg all other days DOSE CHANGE: No change NEXT INR: 05/02/23 INR results not reviewed with patient. INR is within patient's goal range and dosing instructions have not been changed. Patient is a home liz. documented in this encounter Plan of Treatment Upcoming Encounters Date Type Department Care Team (Late st Contact Info) Description 10/31/2023 11:00 AM RECEP Office Visit [place] [address] [place] [address] Hali Soriano, GENERAL FARM HAND [address] [place] [address] documented as of this encounter Procedures Procedure Name Priority Date/Time Associated Diagnosis Comments PROTIME-INR Routine 04/18/2023 documented in this encounter Results * (ABNORMAL) Protime-INR (04/18/2023) INR 2.30(A) 0.9 - 1.1 HOME HEALT H POINT OF CARE TESTING Protime HOME HEALT H POINT OF CARE TESTING Blood (Blood, Venous) Historical Provider LAB BLOOD ORDERAB LES HOME HEALTH POINT OF CARE TESTING documented in this encounter Visit Diagnoses Diagnosis senior living current use of anticoagulant- Primary Other pulmonary embolism without acute cor pulmonale, unspecified chronicity (HCC) documented in this encounter Care Teams Stevedore Dock Relationship Specialty Start Date End Date Adarsh Carpenter MD [address] [place] [address] PCP - General 05/07/18 07/18/23 documented as of this encounter
--- OUTSIDE RECORDS SUMMARY | 2023-10-28 13:44 | XMS_ITS | Encounter Summary ---
Author Name Unknown Organization [facility] er Address [address] [place] [address] Care Team Providers Care Extractions Technician Name Role Phone Adarsh Carpenter MD Primary Care Provider [phone] Reason for Visit * Reason Onset Date Comments Urinary symptoms 06/18/2023 Encounter Details Date Type Department Care Team (Late st Contact Info) Description 06/18/2023 Telephone [place] [address] [place] [address] Adarsh Carpenter MD [address] [place] [address] Urinary symptoms Social History Tobacco Use Types Packs/Day Years [...] often do you attend chur ch or caodaism services? 1 to 4 times [...] Date Recorded PHQ-9 Total Score 1 04/24/2022 [facility]ational [facility] Questionnaire Answer Date [...] or slept in a 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 (including now)? No 04/24/2022 Sex and Gender Information Value Date Recorded Sex Assigned at Not on file Gender Identity Not on file Sexual Orientation Not on file documented as of this encounter Miscellaneous Notes * Telephone Encounter - Sofia Denson RN - 06/18/2023 3:38 PM CDT Patient's Nelia informed. * Telephone Encounter - Adarsh Carpenter MD - 06/18/2023 3:31 PM CDT The pain with catheterization would tend not to indicate an infection itself but could indicate some urethral irritation or irritation at the level of the prostate secondary to the catheterization process. Hopefully this does not continue to bother him or at least improves over time but she should just keep us informed. If it continues to be a significant issue then we would want to consider to have a urologist scoped him and look at the urethra and prostate to see if there is a possible sourcefor the irritation. * Telephone Encounter - Sofia Denson RN - 06/18/2023 2:48 PM CDT RN spoke to patients , she will get a urine sample. She said unless she gets too concerned she will wait for the culture before starting any antibiotics. Any concern regarding previously mentioned pain with cathing? * Telephone Encounter - Sofia Denson RN - 06/18/2023 12:58 PM CDT No answer, mailbox full. * Telephone Encounter - Adarsh Carpenter MD - 06/18/2023 12:44 PM CDT I have placed an order for a UA and UC. Called let her know she can collect a sample and return to the office and we will run a UA and culture. It does take 2 or 3 days to get the culture results back so if she is concerned and would like us to start an antibiotic before culture results get back wecan do so. My first choice is something called Macrobid however if there is a different antibiotic he has usually had it works better for him let me know. Also let me know what she would like to do. * Telephone Encounter - Sofia Denson RN - 06/18/2023 11:39 AM CDT Patient's picked up a cup for a urine specimen. She noted about 4 days ago with catheter insertion there was some blood. Patient is having pain with insertion and Nelia noted he has been urinatingmore frequently and through his depends at night. She would like your guidance on how to proceed. * Telephone Encounter - Lucian Monique - 06/18/2023 11:36 AM CDT Nelia stopped in requesting a specimen cup due to Dhruv's urinary symptoms. Nelia noted that he has had concerns with increased frequency, and pain with catheter insertion. Looking for some guidance on how to proceed. documented in this encounter Plan of Treatment Upcoming Encounters Date Type Department Care Team (Late st Contact Info) Description 10/31/2023 11:00 AM LENDING ADVISOR Office Visit [place] [address] [facility] [address] [place] [address] Hali Soriano, OENOLOGIST [address] [place] [phone] documented as of this encounter Results * (ABNORMAL) Urine culture (06/19/2023 10:51 AM CDT) Urine Culture Staphylococcus aureus >100,000 cfu/ml Oxacillin: _ Use oxacillin interpretation to predict results for anti-staphylococc al beta-lactam antibiotics (except ceftaroline). (A) 06/21/2023 8:25 AM CDT [facility] Urine (Cooper Insert) 06/19/2023 10:51 AM CDT 06/20/2023 12:51 PM CDT Comment:URINE Narrative [facility] - 06/21/2023 8:28 AM CDT Patient does not have an Amoxicillin or PCN allergy Organism Antibiotic Method Susceptibility Staphylococcus aureus Nitrofurantoin <=32 mcg/mL: Susceptible Staphylococcus aureus Oxacillin <=0.25 mcg/mL: Susceptible Staphylococcus aureus Tetracycline <=4 mcg/mL: Susceptible Staphylococcus aureus Trimeth/Sulfa <=0.5/9.5 mcg/mL: Susceptible Adarsh Carpenter MD [facility] [address] [place] [address] * (ABNORMAL) Urinalysis with reflex microscopic (06/19/2023 10:51 AM CDT) Type COOPER INSERT 06/19/2023 11:01 AM CDT [facility] [place] Color, Urine TEE(A) YELLOW 06/19/2023 11:01 AM CDT [facility] [place] Clarity, Urine TURBID(A) CLEAR 06/19/2023 11:01 AM CDT [facility] Glucose, Urine NEGATIVE NEGATIVE mg/dL 06/19/2023 11:01 AM CDT [facility] Bilirubin, Urine NEGATIVE NEGATIVE 06/19/2023 11:01 AM CDT [facility] Ketones, Urine NEGATIVE NEGATIVE mg/dL 06/19/2023 11:01 AM CDT [facility] Specific [place], Urine 1.020 1.000 ->=1.030 06/19/2023 11:01 AM CDT [facility] Blood, Urine MODERATE(A) NEGATIVE 06/19/2023 11:01 AM CDT [facility] pH, Urine 6.5 5.0 - 7.0 06/19/2023 11:01 AM CDT [facility] Protein, Urine 100(A) NEGATIVE-TRA CE mg/dL 06/19/2023 11:01 AM CDT [facility] Urobilinogen, Urine 0.2 0.2 - 1.0 E.U./dL 06/19/2023 11:01 AM T [facility] Nitrite, Urine POSITIVE(A) NEGATIVE 06/19/2023 11:01 AM CDT [facility] Leukocytes, Urine LARGE(A) NEGATIVE 06/19/2023 11:01 AM T [facility] Urine (Cooper Insert) 06/19/2023 10:51 AM CDT 06/19/2023 10:52 AM CDT Adarsh Carpenter MD LAB URINE ORDERABLES [facility] [address] [place] [address] documented in this encounter Visit Diagnoses Diagnosis Frequency of micturition- Primary Urinary frequency Frequency of micturition Urinary frequency Urinary retention Unspecified retention of urine Neurogenic bladder Neurogenic bladder, NOS documented in this encounter Care Teams Extractions Technician Relationship Specialty Start Date End Date Adarsh Carpenter MD [address] [place] [address] PCP - General 05/07/18 07/18/23 documented as of this encounter
--- OUTSIDE RECORDS SUMMARY | 2023-10-28 13:44 | XMS_ITS | Encounter Summary ---
Author Name Unknown Organization [facility] er Address [address] [place] [address] Care Team Providers Care Warehouse Picker Name Role Phone Adarsh Carpenter MD Primary Care Provider [phone] Encounter Details Date Type Department Care Team (Latest Contact Info) Description 06/20/2023 Anticoagulation - Warfarin Visit [facility]/Internal Medicine - Third Floor [address] [place] [address] Iliana Doyle, RN 210 [place] [address] supervisor 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s current use of [...] often do you attend chur ch or jehovah's witness services? 1 to 4 times per year [...] Date Recorded PHQ-9 Total Score 1 04/24/2022 [facility] Answer [...] slept in a senior care (including now)? No 04/24/2022 Sex and Gender Information Value Date Recorded Sex Assigned at Not on file Gender Identity Not on file Sexual Orientation Not on file documented as of this encounter Progress Notes * Iliana Doyle, RN - 06/20/2023 1:12 PM CDT Anticoagulation Clinic INR RESULTS: INR (no units) Date Value 06/20/2023 1.90 (A) DOSE PLAN: 2 mg every e, Sondra, Sat; 4 mg all other days DOSE CHANGE: No change NEXT INR: 07/04/23 INR results not reviewed with patient. INR is considered within patient's goal range and dosing instructions have not been changed. Patient is a home liz. AVS sent through [facility]. documented in this encounter Plan of Treatment Upcoming Encounters Date Type Department Care Team (Late st Contact Info) Description 10/31/2023 11:00 AM AMPHIBIOUS OPERATIONS OFFICER Office Visit [place] [address] [place] [address] Hali Soriano, ELECTRIC CELL TENDER [address] [place] [address] documented as of this encounter Procedures Procedure Name Priority Date/Time Associated Diagnosis Comments PROTIME-INR Routine 06/20/2023 documented in this encounter Results * (ABNORMAL) Protime-INR (06/20/2023) INR 1.90(A) 0.9 - 1.1 HOME HEALT H POINT OF CARE TESTING Protime HOME HEALT H POINT OF CARE TESTING Blood (Blood, Venous) Historical Provider LAB BLOOD ORDERAB LES HOME HEALTH POINT OF CARE TESTING documented in this encounter Visit Diagnoses Diagnosis [facility] current use of anticoagulant- Primary Other pulmonary embolism without acute cor pulmonale, unspecified chronicity (HCC) documented in this encounter Care Teams Warehouse Picker Relationship Specialty Start Date End Date Adarsh Carpenter MD [address] [place] [address] PCP - General 05/07/18 07/18/23 documented as of this encounter
--- OUTSIDE RECORDS SUMMARY | 2023-10-28 13:44 | XMS_ITS | Encounter Summary ---
Author Name Unknown Organization [facility] er Address [address] [place] [address] Care Team Providers Care Welfare Eligibility Interviewer Name Role Phone Adarsh Carpenter MD Primary Care Provider [phone] Reason for Visit * Reason Onset Date Comments requesting a letter to be written and faxed 06/01 Encounter Details Date Type Department Care Team (Late st Contact Info) Description 06/11/2023 Telephone [place] [address] [place] [address] Adarsh Carpenter MD [address] [place] [address] requesting a letter to be written and faxed Social History Tobacco Use Types Packs/Day Years [...] 1 04/24/2022 [facility] - Occupational Stress Questionnaire Answer Date [...] * Telephone Encounter - Lalitha Pathak - 06/13/2023 12:36 PM CDT Letter, as requested, faxed, attention to Yoly, , fax [phone]. * Telephone Encounter - Sofia Denson RN - 06/13/2023 11:14 AM CDT Please fax. * Telephone Encounter - dAarsh Carpenter MD - 06/13/2023 9:57 AM CDT I have reprinted the letter. Run it past Nelia and if she is okay with this revised letter then go ahead and fax. * Telephone Encounter - Sofia Denson RN - 06/13/2023 9:18 AM CDT RN spoke to Nelia. She stated the letter doesn't need to state the diagnosis itself but she would like to say diagnosed in 2004 as opposed to more than 25 years ago. After this adjustment she said itcan be faxed. * Telephone Encounter - Adarsh Carpenter MD - 06/13/2023 8:25 AM CDT I have printed and signed a letter for the patient. First contact Nelia and read it to her and see ifshe like to have anything modified or anything added which can certainly be done. If she is okay with how it reads then please fax to the number indicated. * Telephone Encounter - Sofia Denson RN - 06/11/2023 1:58 PM CDT See request. * Telephone Encounter - Mabel Loomis - 06/11/2023 1:17 PM CDT Pt's Spouse Nelia is requesting to see if Dr. Carpenter could write a generic letter on [facility] Letterhead. In the letter, it needs to state when the date that the pt was diagnosed with MS. Also, that Dwain is unable to travel because of his condition. (Nelia said that we don't need to list specific reasons why he can't travel in the letter). This can be faxed to attn: Yoly with the case #- [id number] and fax #- [phone]. Nelia would like a call back to let her know when this has been faxed. Thanks. documented in this encounter Plan of Treatment Upcoming Encounters Date Type Department Care Team (Late st Contact Info) Description 10/31/2023 11:00 AM CORPORATE ADMINISTRATIVE ASSISTANT Office Visit [place] [address] [address] Hali Soriano, DESIGN EDITOR [address] [place] [address] documented as of this encounter Visit Diagnoses Not on filedocumented in this encounter Care Teams Welfare Eligibility Interviewer Relationship Specialty [place] [address] [place] [phone] PCP - General 05/07/18 07/18/23 documented as of this encounter
--- OUTSIDE RECORDS SUMMARY | 2023-10-28 13:44 | XMS_ITS | Encounter Summary ---
Author Name Unknown Organization [facility] er Address [address] [place] [address] Care Team Providers Care Dynamo Repairer Name Role Phone Adarsh Carpenter MD Primary Care Provider [phone] Encounter Details Date Type Department Care Team (Late st Contact Info) Description 07/04/2023 10:30 AM CDT Lab [place] [address] [place] [address] Frequency of urination (Primary Dx); Frequency of micturition Social History [...] often do you attend chur ch or tenriism services? 1 to 4 times per year [...] Date Recorded PHQ-9 Total Score 1 04/24/2022 [facility] of Occupat ional Health - [...] st Contact Info) Description 10/31/2023 11:00 AM GLASS CURVATURE GAUGER Office Visit [place] [address] [place] [address] Hali Soriano, LEAD INFRASTRUCTURE ARCHITECT [address] [place] [address] documented as of this encounter Procedures Procedure Name Priority Date/Time Associated Diagnosis Comments URINALYSIS-MICROSCOP IC EXAM (REFLEXED) Routine 07/04/2023 10:44 AM CDT Frequency of urination URINALYSIS WITH REFLEX MICROSCOPIC Routine 07/04/2023 10:44 AM CDT Frequency of urination URINE CULTURE Routine 07/04/2023 10:43 AM CDT Frequency of micturition documented in this encounter Results * (ABNORMAL) Urinalysis-Microscopic Exam (07/04/2023 10:44 AM CDT) Casts, urine NONE SEEN 0-2 Hyaline /lpf 07/05/2023 3:43 PM CDT [facility] Significant casts, urine NONE SEEN None Seen /lpf 07/05/2023 3:43 PM CDT [facility] RBC, Urine 4-10(A) 0 - 3 /hpf 07/05/2023 3:43 PM T [facility] WBC, Urine >100(A) /hpf 07/05/2023 3:43 PM T [facility] Comment: Male: ?? 0-3/hpf Female: 0-10/hpf Squamous Epithelial, Urine NONE SEEN Few /lpf 07/05/2023 3:43 PM T [facility] Trans Epithelial, Urine NONE SEEN 0 - 3 /hpf 07/05/2023 3:43 PM T [facility] Renal Tubular Cells, Urine NONE SEEN 0 - 1 /hpf 07/05/2023 3:43 PM [facility] Bacteria, Urine 1+(A) None Seen - Few /hpf 07/05/2023 3:43 PM [facility] Miscellaneous, urine SEE BELOW 07/05/2023 3:43 PM [facility] Comment: 1+ Calcium Oxalate Crystals Present. 07/04/2023 10:4 4 AM CDT 07/05/2023 3:41 PM CDT Adarsh Carpenter MD LAB URINE ORDERABLES [facility] [address] [place] [address] * (ABNORMAL) Urinalysis with reflex microscopic (lab staff release/collect) (07/04/2023 10:44 AM CDT) Type CATH 07/04/2023 11:09 AM CDT [facility] Color, Urine YELLOW YELLOW 07/04/2023 11:09 AM CDT [facility] Clarity, Urine TURBID(A) CLEAR 07/04/2023 11:09 AM CDT [facility] Glucose, Urine NEGATIVE NEGATIVE mg/dL 07/04/2023 11:09 AM CDT [facility] Bilirubin, Urine NEGATIVE NEGATIVE 07/04/2023 11:09 AM CDT [facility] Ketones, Urine NEGATIVE NEGATIVE mg/dL 07/04/2023 11:09 AM CDT [facility] Specific [place], Urine 1.025 1.000 ->=1.030 07/04/2023 11:09 AM CDT [facility] Blood, Urine MODERATE(A) NEGATIVE 07/04/2023 11:09 AM CDT [facility] pH, Urine 6.0 5.0 - 7.0 07/04/2023 11:09 AM CDT [facility] Protein, Urine 30(A) NEGATIVE-TRA CE mg/dL 07/04/2023 11:09 AM CDT [facility] Urobilinogen, Urine 0.2 0.2 - 1.0 E.U./dL 07/04/2023 11:09 AM CDT [facility] Nitrite, Urine POSITIVE(A) NEGATIVE 07/04/2023 11:09 AM CDT [facility] Leukocytes, Urine LARGE(A) NEGATIVE 07/04/2023 11:09 AM CDT [facility] Urine (Urine, Catheter) 07/04/2023 10:44 AM CDT 07/04/2023 10:44 AM CDT Adarsh Carpenter MD LAB URINE ORDERABLES [facility] [address] [place] [address] * (ABNORMAL) Urine culture (07/04/2023 10:43 AM CDT) Urine Culture Staphylococcus aureus >100,000 cfu/ml Use oxacillin interpretation to predict results for anti-staphylococc al beta-lactam antibiotics (except ceftaroline). (A) 07/06/2023 8:07 AM CDT [facility] Urine (Saenz Insert) 07/04/2023 10:43 AM CDT 07/05/2023 1:23 PM CDT Comment:Urine Culture Narrative Organism Antibiotic Method Susceptibility Staphylococcus aureus Nitrofurantoin <=32 mcg/mL: Susceptible Staphylococcus aureus Oxacillin <=0.25 mcg/mL: Susceptible Staphylococcus aureus Tetracycline <=4 mcg/mL: Susceptible Staphylococcus aureus Trimeth/Sulfa <=0.5/9.5 mcg/mL: Susceptible Adarsh Carpenter MD LAB MICROBIOLOGY - G ENERAL ORDERABLES [facility] [address] [place] [address] documented in this encounter Visit Diagnoses Diagnosis Frequency of urination- Primary Urinary frequency Frequency of micturition Urinary frequency documented in this encounter Additional Health Concerns Infection Onset Date Last Indicated Resolved Time MSSA 06/19/2023 07/04/2023 07/17/2023 2:29 PM CDT documented as of this encounter Care Teams Dynamo Repairer Relationship Specialty Start Date End Date Adarsh Carpenter MD [address] [facility] 20 [place] [address] PCP - General 05/07/18 07/18/23 documented as of this encounter
--- OUTSIDE RECORDS SUMMARY | 2023-10-28 13:44 | XMS_ITS | Encounter Summary ---
Author Name Unknown Organization [facility] er Address [address] [place] [address] Care Team Providers Care Blood Bank Custodian Name Role Phone Adarsh Carpenter MD Primary Care Provider [phone] Encounter Details Date Type Department Care Team (Late st Contact Info) Description 06/13/2023 Orders Only [place] [address] [place] [address] Adarsh Carpenter MD [address] [place] [address] Social History Tobacco Use Types Packs/Day Years [...] any clubs o r organizations such as roman catholic groups, unions, [...] Date Recorded PHQ-9 Total Score 1 04/24/2022 [facility] - Occupational Stress Questionnaire Answer [...] st Contact Info) Description 10/31/2023 11:00 AM FOOD SERVICE SUBSTITUTE Office Visit [address] [address] Hali Soriano, UNDERGROUND HEAVY EQUIPMENT OPERATOR [address] [place] [address] documented as of this encounter Visit Diagnoses Not on filedocumented in this encounter Care Teams Blood Bank Custodian Relationship Specialty Start Date End Date Adarsh Carpenter MD [address] [place] [phone] PCP - General 05/07/18 07/18/23 documented as of this encounter
--- OUTSIDE RECORDS SUMMARY | 2023-10-28 13:44 | XMS_ITS | Encounter Summary ---
Author Name Unknown Organization [facility] er Address [address] [place] [address] Care Team Providers Care Forex Trader Name Role Phone Adarsh Carpenter MD Primary Care Provider [phone] Reason for Visit * Reason Comments Med Refill Encounter Details Date Type Department Care Team (Late st Contact Info) Description 04/22/2023 Refill [place] [address] [place] [address] Adarsh Carpenter MD [address] [place] [address] Multiple sclerosis (HCC) Social History Tobacco Use Types Packs/Day [...] often do you attend chur ch or voodoo services? 1 to 4 times per year 04/24/2022 Do you belong to any clubs o r organizations such as caodaism groups, unions, fraternal [...] PHQ-9 Total Score 1 04/24/2022 [facility] Questionnaire Answer Date Recorded [...] slept in a usp (including now)? No 04/24/2022 Sex and Gender Information Value Date Recorded Sex Assigned at Not on file Gender Identity Not on file Sexual Orientation Not on file documented as of this encounter Miscellaneous Notes * Telephone Encounter - Lana Gallardo MA - 04/25/2023 9:25 AM CDT Upcoming appointment with provider: Visit date not found Last visit in provider department: 12/27/2022 Last visit requested medication was discussed: 12/27/2022 WAE Last Rx: 270 +3 refills 05/10/2022 Requested Prescriptions Pending Prescriptions Disp Refills baclofen (LIORESAL) 10 MG tablet [Pharmacy Med Name: BACLOFEN 10MG TABS] 270 tablet 3 Sig: TAKE ONE TABLET BY MOUTH THREE TIMES A DAY FOR MULTIPLE SCLEROSIS Vitals: BP Readings from Last 2 Encounters: 12/27/22 127/88 06/21/22 102/70 documented in this encounter Plan of Treatment Upcoming Encounters Date Type Department Care Team (Late st Contact Info) Description 10/31/2023 11:00 AM OFFICE ANALYST Office Visit [place] [address] [place] [address] Hali Soriano, DREDGE PUMPER [address] [place] [address] documented as of this encounter Visit Diagnoses Diagnosis Multiple sclerosis (HCC) Multiple sclerosis documented in this encounter Care Teams Forex Trader Relationship Specialty Start Date End Date Adarsh Carpenter MD [address] [place] [address] PCP - General 05/07/18 07/18/23 documented as of this encounter
--- OUTSIDE RECORDS SUMMARY | 2023-10-28 13:44 | XMS_ITS | Encounter Summary ---
Author Name Unknown Organization [facility] er Address [address] [place] [address] Care Team Providers Care Cornice Upholsterer Name Role Phone Adarsh Carpenter MD Primary Care Provider [phone] Encounter Details Date Type Department Care Team (Late st Contact Info) Description 06/19/2023 Telephone [place] [address] [place] [address] Adarsh Carpenter MD [address] [place] [address] Social History Tobacco Use Types Packs/Day Years [...] How often do you attend chur or mormonism services? 1 to 4 times per year 04/24/2022 Do you belong to any clubs o r organizations such as sabianism groups, unions, fraternal [...] Date Recorded PHQ-9 Total Score 1 04/24/2022 [facility] - Occupational Stress Questionnaire Answer [...] Telephone Encounter - Vidhya Bain LPN - 07/09/2023 2:26 PM CDT Nelia informed * Telephone Encounter - Adarsh Carpenter MD - 07/09/2023 12:55 PM CDT I would wait until they get back from their trip. However while they are on the trip if you were todevelop fevers or chills or other concerns about a recurrent significant infection that should certainly be seen in an emergency room down there. When they get back lets get another urine sample to run the culture. * Telephone Encounter - Sofia Denson RN - 07/09/2023 9:52 AM CDT Nelia stated Dhruv has 4 days left of the Bactrim. She mentioned they are leaving in a couple days for [facility]. They will be gone 12 days. Do you want her to take a urine sample to an urgent care in [place] or should he recheck the urine when he returns. She stated she still has a prescription for Macrobid and will take that with her in case she has concerns of another UTI while they are out of town. She has one sterile urine cup left. * Telephone Encounter - Jocelin Christian RN - 06/22/2023 9:06 AM CDT Nelia states that patient is somewhat better and will continue to monitor and call us back if the symptoms do not resolve. * Telephone Encounter - Sofia Denson RN - 06/19/2023 11:34 AM CDT Nelia called back and informed. * Telephone Encounter - Sofia Denson RN - 06/19/2023 11:22 AM CDT LMTC for Nelia. documented in this encounter Plan of Treatment Upcoming Encounters Date Type Department Care Team (Late st Contact Info) Description 10/31/2023 11:00 AM PAPER FOLDING MACHINE OPERATOR Office Visit [address] [address] Hali Soriano, BOAT GARNISHER [address] [place] [address] documented as of this encounter Visit Diagnoses Not on filedocumented in this encounter Additional Health Concerns Infection Onset Date Last Indicated Resolved Time MSSA 06/19/2023 07/04/2023 07/17/2023 2:29 PM CDT documented as of this encounter Care Teams Cornice Upholsterer Relationship Specialty Start Date End Date Adarsh Carpenter MD [address] [place] [phone] PCP - General 05/07/18 07/18/23 documented as of this encounter
--- OUTSIDE RECORDS SUMMARY | 2023-10-28 13:44 | XMS_ITS | Encounter Summary ---
Author Name Unknown Organization [facility] er Address [address] [place] [address] Care Team Providers Care Vice President Mission Integration Name Role Phone Adarsh Carpenter MD Primary Care Provider [phone] Encounter Details Date Type Department Care Team (Latest Contact Info) Description 05/23/2023 Anticoagulation - Warfarin Visit [facility] Antico/Internal Medicine - Third Floor [address] [place] [phone] Gregoria Bustamante, ROBERT 210 [place] [address] terminal carman current use of anticoagulant (Primary Dx) Social [...] How often do you attend chur or buddhist services? 1 to 4 times per year 04/24/2022 Do you belong to any clubs o r organizations such as adventist groups, unions, fraternal [...] Date Recorded PHQ-9 Total Score 1 04/24/2022 [facility] - Occupational Stress Questionnaire Answer Date [...] in a long term (including now)? No 04/24/2022 Sex and Gender Information Value Date Recorded Sex Assigned at Not on file Gender Identity Not on file Sexual Orientation Not on file documented as of this encounter Progress Notes * Gregoria Bustamante, ROBERT - 05/23/2023 9:59 AM CDT Anticoagulation Clinic INR RESULTS: INR (no units) Date Value 05/23/2023 2.30 (A) DOSE PLAN: 2 mg every Sun, Sondra, Sat; 4 mg all other days DOSE CHANGE: No change NEXT INR: 06/06/23 INR results not reviewed with patient. INR is within patient's goal range and dosing instructions have not been changed. Patient is a home liz. documented in this encounter Plan of Treatment Upcoming Encounters Date Type Department Care Team (Late st Contact Info) Description 10/31/2023 11:00 AM ENTERPRISE SOFTWARE DEVELOPER Office Visit [place] [address] [place] [address] Hali Soriano, ACTUARIAL CONSULTANT [address] [place] [address] documented as of this encounter Procedures Procedure Name Priority Date/Time Associated Diagnosis Comments PROTIME-INR Routine 05/23/2023 documented in this encounter Results * (ABNORMAL) Protime-INR (05/23/2023) INR 2.30(A) 0.9 - 1.1 HOME HEALT H POINT OF CARE TESTING Protime HOME HEALT H POINT OF CARE TESTING Blood (Blood, Venous) Narrative Resulting Agency Comment [facility] fax Historical Provider LAB BLOOD ORDERAB LES HOME HEALTH POINT OF CARE TESTING documented in this encounter Visit Diagnoses Diagnosis [facility] current use of anticoagulant- Primary documented in this encounter Care Teams Vice President Mission Integration Relationship Specialty Start Date End Date Adarsh Carpenter MD [address] [place] [address] PCP - General 05/07/18 07/18/23 documented as of this encounter
--- OUTSIDE RECORDS SUMMARY | 2023-10-28 13:44 | XMS_ITS | Encounter Summary ---
Author Name Unknown Organization [facility] er Address [address] [place] [address] Care Team Providers Care Supervisor Costuming Name Role Phone Adarsh Carpenter MD Primary Care Provider [phone] Encounter Details Date Type Department Care Team (Latest Contact Info) Description 06/06/2023 Anticoagulation - Warfarin Visit SE Antico/Internal Medicine - Third Floor [address] [place] [phone] Gregoria Bustamante, ROBERT [address] [place] [address] intermission coordinator current use of anticoagulant (Primary Dx) Social [...] How often do you attend chur or denominational services? 1 to 4 times [...] Date Recorded PHQ-9 Total Score 1 04/24/2022 [facility] - Occupational Stress Questionnaire Answer Date Recorded [...] Progress Notes * Gregoria Bustamante, ROBERT - 06/06/2023 11:05 AM CDT Anticoagulation Clinic INR RESULTS: INR (no units) Date Value 06/06/2023 2.10 (A) DOSE PLAN: 2 mg every e, Sondra, Sat; 4 mg all other days DOSE CHANGE: No change NEXT INR: 06/20/23 INR results not reviewed with patient. INR is within patient's goal range and dosing instructions have not been changed. Patient is a home liz. documented in this encounter Plan of Treatment Upcoming Encounters Date Type Department Care Team (Late st Contact Info) Description 10/31/2023 11:00 AM COOK MAYONNAISE Office Visit [place] [address] [place] [address] Hali Soriano, SCHOOL CHILD CARE ATTENDANT [address] [place] [address] documented as of this encounter Procedures Procedure Name Priority Date/Time Associated Diagnosis Comments PROTIME-INR Routine 06/06/2023 documented in this encounter Results * (ABNORMAL) Protime-INR (06/06/2023) INR 2.10(A) 0.9 - 1.1 HOME HEALT H POINT OF CARE TESTING Protime HOME HEALT H POINT OF CARE TESTING Blood (Blood, Venous) Narrative Resulting Agency Comment [facility] fax Historical Provider LAB BLOOD ORDERAB LES HOME HEALTH POINT OF CARE TESTING documented in this encounter Visit Diagnoses Diagnosis intermission coordinator current use of anticoagulant- Primary documented in this encounter Care Teams Supervisor Costuming Relationship Specialty Start Date End Date Adarsh Carpenter MD [address] [place] [address] PCP - General 05/07/18 07/18/23 documented as of this encounter
--- OUTSIDE RECORDS SUMMARY | 2023-10-28 13:44 | XMS_ITS | Encounter Summary ---
Author Name Unknown Organization [facility] er Address [address] [place] [address] Care Team Providers Care Lithography Contact Worker Name Role Phone Adarsh Carpenter MD Primary Care Provider [phone] Encounter Details Date Type Department Care Team (Latest Contact Info) Description 05/02/2023 Anticoagulation - Warfarin Visit [facility] Antico/Internal Medicine - Third Floor [address] [place] [address] [id number] Gregoria Bustamante, ROBERT [address] [place] [address] 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 designer current use of anticoagulant (Primary Dx) Social [...] Date Recorded PHQ-9 Total Score 1 04/24/2022 [facility] - Occupational Stress Questionnaire Answer Date [...] or slept in a mcc (including now)? No 04/24/2022 Sex and Gender Information Value Date Recorded Sex Assigned at Not on file Gender Identity Not on file Sexual Orientation Not on file documented as of this encounter Progress Notes * Gregoria Bustamante, ROBERT - 05/02/2023 2:58 PM CDT Anticoagulation Clinic INR RESULTS: INR (no units) Date Value 05/02/2023 2.60 (A) DOSE PLAN: 2 mg every Sun, Sondra, Sat; 4 mg all other days DOSE CHANGE: No change NEXT INR: 05/16/23 INR results not reviewed with patient. INR is within patient's goal range and dosing instructions have not been changed. Patient is a home liz. documented in this encounter Plan of Treatment Upcoming Encounters Date Type Department Care Team (Late st Contact Info) Description 10/31/2023 11:00 AM FORMING PROCESS LINE WORKER Office Visit [place] [address] [place] [address] Hali Soriano, SAFETY PROFESSIONAL [address] [place] [address] documented as of this encounter Procedures Procedure Name Priority Date/Time Associated Diagnosis Comments PROTIME-INR Routine 05/02/2023 documented in this encounter Results * (ABNORMAL) Protime-INR (05/02/2023) INR 2.60(A) 0.9 - 1.1 HOME HEALT H POINT OF CARE TESTING Protime HOME HEALT H POINT OF CARE TESTING Blood (Blood, Venous) Narrative Resulting Agency Comment [facility] fax. Historical Provider LAB BLOOD ORDERAB LES HOME HEALTH POINT OF CARE TESTING documented in this encounter Visit Diagnoses Diagnosis 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 designer current use of anticoagulant- Primary documented in this encounter Care Teams Lithography Contact Worker Relationship Specialty Start Date End Date Adarsh Carpenter MD [address] [place] [address] PCP - General 05/07/18 07/18/23 documented as of this encounter
--- OUTSIDE RECORDS SUMMARY | 2023-10-28 13:44 | XMS_ITS | Encounter Summary ---
Author Name Unknown Organization [facility] er Address [address] [place] [address] Care Team Providers Care Logging Supervisor Name Role Phone Adarsh Carpenter MD Primary Care Provider [phone] Encounter Details Date Type Department Care Team (Late st Contact Info) Description 06/19/2023 10:45 AM CDT Lab [place] [address] [place] [address] Frequency of micturition; Urinary retention; Neurogenic bladder Social History Tobacco Use Types Packs/Day Years [...] often do you attend chur ch or roman catholic services? 1 to 4 times per [...] Date Recorded PHQ-9 Total Score 1 04/24/2022 [facility] - Occupational [...] st Contact Info) Description 10/31/2023 11:00 AM FINANCIAL ASSISTANT Office Visit [place] [address] [place] [address] Hali Soriano, BONBON CREAM WARMER [address] [place] [address] documented as of this encounter Procedures Procedure Name Priority Date/Time Associated Diagnosis Comments URINALYSIS-MICROSCOP IC EXAM (REFLEXED) Routine 06/19/2023 10:51 AM CDT Frequency of micturition URINALYSIS WITH REFLEX MICROSCOPIC Routine 06/19/2023 10:51 AM CDT Frequency of micturition URINE CULTURE Routine 06/19/2023 10:51 AM CDT Frequency of micturition documented in this encounter Results * (ABNORMAL) Urinalysis-Microscopic Exam (06/19/2023 10:51 AM CDT) Casts, urine NONE SEEN 0-2 Hyaline /lpf 06/20/2023 1:41 PM CDT [facility] Significant casts, urine NONE SEEN None Seen /lpf 06/20/2023 1:41 PM CDT [facility] RBC, Urine 4-10(A) 0 - 3 /hpf 06/20/2023 1:41 PM CDT [facility] WBC, Urine >100(A) /hpf 06/20/2023 1:41 PM T [facility] Comment: Male Ref Range ? 0-3/hpf Female Ref Range ?? 0-10/hpf Squamous Epithelial, Urine FEW Few /lpf 06/20/2023 1:41 PM CDT [facility] Trans Epithelial, Urine NONE SEEN 0 - 3 /hpf 06/20/2023 1:41 PM T [facility] Renal Tubular Cells, Urine NONE SEEN 0 - 1 /hpf 06/20/2023 1:41 PM T [facility] Bacteria, Urine 2+(A) None Seen - Few /hpf 06/20/2023 1:41 PM T [facility] 06/19/2023 10:5 1 AM CDT 06/20/2023 12:26 PM CDT Adarsh Carpenter MD LAB URINE ORDERABLES [facility] [address] [place], [place] [id number] * (ABNORMAL) Urine culture (06/19/2023 10:51 AM CDT) Urine Culture Staphylococcus aureus >100,000 cfu/ml Oxacillin: _ Use oxacillin interpretation to predict results for anti-staphylococc al beta-lactam antibiotics (except ceftaroline). (A) 06/21/2023 8:25 AM CDT [facility] Urine (Cooper Insert) 06/19/2023 10:51 AM CDT 06/20/2023 12:51 PM CDT Comment:URINE Narrative [facility] - 06/21/2023 8:28 AM CDT Patient does not have an Amoxicillin or PCN allergy Organism Antibiotic Method Susceptibility Staphylococcus aureus Nitrofurantoin <=32 mcg/mL: Susceptible Staphylococcus aureus Oxacillin <=0.25 mcg/mL: Susceptible Staphylococcus aureus Tetracycline <=4 mcg/mL: Susceptible Staphylococcus aureus Trimeth/Sulfa <=0.5/9.5 mcg/mL: Susceptible Adarsh Carpenter MD LAB [facility] [address] [place] [address] * (ABNORMAL) Urinalysis with reflex microscopic (06/19/2023 10:51 AM CDT) Type COOPER INSERT 06/19/2023 11:01 AM CDT [facility] [place] Color, Urine TEE(A) YELLOW 06/19/2023 11:01 AM CDT [facility] [place] Clarity, Urine TURBID(A) CLEAR 06/19/2023 11:01 AM CDT [facility] [place] Glucose, Urine NEGATIVE NEGATIVE mg/dL 06/19/2023 11:01 AM CDT [facility] [place] Bilirubin, Urine NEGATIVE NEGATIVE 06/19/2023 11:01 AM CDT [facility] [place] Ketones, Urine NEGATIVE NEGATIVE mg/dL 06/19/2023 11:01 AM CDT [facility] [place] Specific [place], Urine 1.020 1.000 ->=1.030 06/19/2023 11:01 AM CDT [facility] [place] Blood, Urine MODERATE(A) NEGATIVE 06/19/2023 11:01 AM CDT [facility] [place] pH, Urine 6.5 5.0 - 7.0 06/19/2023 11:01 AM CDT [facility] [place] Protein, Urine 100(A) NEGATIVE-TRA CE mg/dL 06/19/2023 11:01 AM CDT [facility] [place] Urobilinogen, Urine 0.2 0.2 - 1.0 E.U./dL 06/19/2023 11:01 AM CDT [facility] [place] Nitrite, Urine POSITIVE(A) NEGATIVE 06/19/2023 11:01 AM CDT [facility] [place] Leukocytes, Urine LARGE(A) NEGATIVE 06/19/2023 11:01 AM CDT [facility] [place] Urine (Cooper Insert) 06/19/2023 10:51 AM CDT 06/19/2023 10:52 AM CDT Adarsh Carpenter MD LAB URINE ORDERABLES [facility] [address] [place] [address] documented in this encounter Visit Diagnoses Diagnosis Frequency of micturition Urinary frequency Urinary retention Unspecified retention of urine Neurogenic bladder Neurogenic bladder, NOS documented in this encounter Care Teams Logging Supervisor Relationship Specialty Start Date End Date Adarsh Carpenter MD [address] [place] [address] PCP - General 05/07/18 07/18/23 documented as of this encounter
--- OUTSIDE RECORDS SUMMARY | 2023-10-28 13:44 | XMS_ITS | Encounter Summary ---
Author Name Unknown Organization [facility] er Address [address] [place] [address] Care Team Providers Care Senior Rd Engineer Name Role Phone Adarsh Carpenter MD Primary Care Provider Reason for Referral * Consultation (Routine) - Authorized Specialty Diagnoses / Procedures Referred By Contac t Referred To Contact [facility] Care Diagnoses Mixed hyperlipidemia Adarsh Carpenter MD [address] [place] [address] [facility] Remote Monitoring [address] [place] [address] Referral ID Status Reason Start Date Expiration Date V isits Requested Visits Authorized [id number] Authorized 05/02/2023 05/02/2024 1 1 Encounter Details Date Type Department Care Team (Late st Contact Info) Description 05/02/2023 Orders Only SE Internal Medicine [address] [place] [address] Adarsh Carpenter MD [address] [place] [address] Mixed hyperlipidemia Social History Tobacco Use Types [...] week 04/24/2022 How often do you attend [facility] [facility] or confucianist services? 1 to 4 times per year 04/24/2022 Do you belong to any clubs o r organizations such as mandaeism groups, unions, fraternal [...] Date Recorded PHQ-9 Total Score 1 04/24/2022 [facility] - Occupational Stress [...] st Contact Info) Description 10/31/2023 11:00 AM HCC CODERS Office Visit [place] [address] [place] [address] Hali Soriano, NEUROLOGY TECHNICIAN [address] [place] [address] Scheduled Referrals Name Type Priority Associated Diagnoses Orde r Schedule Ambulatory Referral for Remote Monitoring Outpatient Referral Routine Mixed hyperlipidemia Ordered: 05/02/2023 documented as of this encounter Visit Diagnoses Diagnosis Mixed hyperlipidemia documented in this encounter Care Teams Senior Rd Engineer Relationship Specialty Start Date End Date Adarsh Carpenter MD [address] [facility] [address] [place] [address] PCP - General 05/07/18 07/18/23 documented as of this encounter
--- OUTSIDE RECORDS SUMMARY | 2023-10-28 13:44 | XMS_ITS | Encounter Summary ---
Author Name Unknown Organization [facility] er Address [address] [place] [address] Care Team Providers Care Metals Sales Representative Name Role Phone Adarsh Carpenter MD Primary Care Provider [phone] Encounter Details Date Type Department Care Team (Latest Contact Info) Description 04/04/2023 Anticoagulation - Warfarin Visit [facility]/Internal Medicine - Third Floor [address] [place] [address] Dolores Cleary, RN [address] [place] [address] director long term care current use of anticoagulant (Primary Dx); Other [...] any clubs o r organizations such as taoism groups, unions, fraternal [...] Date Recorded PHQ-9 Total Score 1 04/24/2022 [facility] Questionnaire Answer Date [...] slept in a correction (including now)? No 04/24/2022 Sex and Gender Information Value Date Recorded Sex Assigned at Not on file Gender Identity Not on file Sexual Orientation Not on file documented as of this encounter Progress Notes * Dolores Cleary RN - 04/04/2023 11:00 AM CDT Anticoagulation Clinic INR RESULTS: INR (no units) Date Value 04/04/2023 3.10 (A) DOSE PLAN: 2 mg Tue, Sondra, Sat; 4 mg all other days DOSE CHANGE: No change NEXT INR: 04/18/2023 INR results reviewed with the patient's , Nelia. She verbalized understanding of anticoagulation dose plan and date of next INR. AVS not mailed. documented in this encounter Plan of Treatment Upcoming Encounters Date Type Department Care Team (Late st Contact Info) Description 10/31/2023 11:00 AM DATA CENTER OPERATOR Office Visit [place] [address] [place], [place] [phone] Hali Soriano, EXAMINATION GRADER [address] [place] [address] documented as of this encounter Procedures Procedure Name Priority Date/Time Associated Diagnosis Comments PROTIME-INR Routine 04/04/2023 documented in this encounter Results * (ABNORMAL) Protime-INR (04/04/2023) INR 3.10(A) 0.9 - 1.1 HOME HEALT H POINT OF CARE TESTING Protime HOME HEALT H POINT OF CARE TESTING Blood (Blood, Venous) Narrative Resulting Agency Comment [employer] fax Historical Provider LAB BLOOD ORDERAB LES HOME HEALTH POINT OF CARE TESTING documented in this encounter Visit Diagnoses Diagnosis director long term care current use of anticoagulant- Primary Other pulmonary embolism without acute cor pulmonale, unspecified chronicity (HCC) documented in this encounter Care Teams Metals Sales Representative Relationship Specialty Start Date End Date Adarsh Carpenter MD [address] [place] [address] PCP - General 05/07/18 07/18/23 documented as of this encounter
--- OUTSIDE RECORDS SUMMARY | 2023-10-28 13:44 | XMS_ITS | Encounter Summary ---
Author Name Unknown Organization [facility] er Address [address] [place] [address] Care Team Providers Care Regional Project Manager Name Role Phone Adarsh Carpenter MD Primary Care Provider [phone] Encounter Details Date Type Department Care Team (Latest Contact Info) Description 03/21/2023 Anticoagulation - Warfarin Visit SE [facility]/Internal Medicine - Third Floor [address] [place] [address] Iliana Doyle, RN [address] [place] [address] terminal manager current use of anticoagulant (Primary Dx); Other [...] Date Recorded PHQ-9 Total Score 1 04/24/2022 [facility]ational [facility] Questionnaire Answer [...] Progress Notes * Iliana Doyle, RN - 03/21/2023 1:50 PM CDT Anticoagulation Clinic INR RESULTS: INR (no units) Date Value 03/21/2023 2.50 (A) DOSE PLAN: 2 mg every e, Sondra, Sat; 4 mg all other days DOSE CHANGE: No change NEXT INR: 04/04/23 INR results not reviewed with patient. INR is within patient's goal range and dosing instructions have not been changed. AVS not mailed, patient is a home liz. documented in this encounter Plan of Treatment Upcoming Encounters Date Type Department Care Team (Late st Contact Info) Description 10/31/2023 11:00 AM MODEL BUILDER DISPLAY Office Visit [place] [address] [place] [address] Hali Soriano, UNDERGROUND PRODUCTION FOREPERSON [address] [place] [address] documented as of this encounter Procedures Procedure Name Priority Date/Time Associated Diagnosis Comments PROTIME-INR Routine 03/21/2023 documented in this encounter Results * (ABNORMAL) Protime-INR (03/21/2023) INR 2.50(A) 0.9 - 1.1 HOME HEALT H POINT OF CARE TESTING Protime HOME HEALT H POINT OF CARE TESTING Blood (Blood, Venous) Historical Provider LAB BLOOD ORDERAB LES HOME HEALTH POINT OF CARE TESTING documented in this encounter Visit Diagnoses Diagnosis terminal manager current use of anticoagulant- Primary Other pulmonary embolism without acute cor pulmonale, unspecified chronicity (HCC) documented in this encounter Care Teams Regional Project Manager Relationship Specialty Start Date End Date Adarsh Carpenter MD [address] [place] [address] PCP - General 05/07/18 07/18/23 documented as of this encounter
--- OUTSIDE RECORDS SUMMARY | 2023-10-28 13:44 | XMS_ITS | Encounter Summary ---
Author Name Unknown Organization [facility] er Address [address] [place] [address] Care Team Providers Care Hitcher Name Role Phone Adarsh Carpenter MD Primary Care Provider [phone] Reason for Visit * Reason Onset Date Comments letter for timeshare 06/29/2023 Encounter Details Date Type Department Care Team (Late st Contact Info) Description 06/29/2023 Telephone [place] [address] [place] [address] Adarsh Carpenter MD [address] [place] [address] letter for [employer] Social History Tobacco Use Types Packs/Day Years [...] often do you attend chur ch or muslim services? 1 to 4 times per year [...] Date Recorded PHQ-9 Total Score 1 04/24/2022 [facility] Questionnaire Answer Date [...] Telephone Encounter - Vidhya Bain LPN - 07/02/2023 10:02 AM CDT Noted * Telephone Encounter - Lalitha Pathak - 07/02/2023 9:45 AM CDT Letter faxed to [facility] as requested; fax [phone]. * Telephone Encounter - Sofia Denson RN - 07/02/2023 9:33 AM CDT Patient informed, she will have them send another form. Please fax letter for patient. * Telephone Encounter - Adarsh Carpenter MD - 07/02/2023 8:54 AM CDT Let Nelia know that I have reprinted and signed a letter. Please read to her and if she is okay with how it reads you may fax. I have also placed an order for the patient to get another urine culture if she would like this to be done at some point in the future. I would not necessarily do it just fora cloudy urine necessarily but if he is having other symptoms to suggest such as change of behaviormore irritable and obviously fevers chills and so forth. But again she can bring another specimen in if she is concerned. If she needs more sterile containers please supply her with these. In regard to [employer] I do not think I ever saw a form so have her drop off another form atthe office. Let her know I would be out of the office after today for the rest of the week but can certainly fill out when I get back next week * Telephone Encounter - Sofia Denson RN - 06/29/2023 11:18 AM CDT Nelia stated the previous letter that you wrote for their [employer] made it sound like it was a preexhisting condition, they need the letter to be rewritten to mention something like do to an unrelated change in health he is not longer able to travel. Also, Nelia wanted to know if you received a form to fill out from [employer]? She stated they sent it over but haven't gotten it back yet. If you have it please complete. If you do not we will request the send it again. Finally, Dhruv caballero is antibiotic Sunday for a UTI. Nelia mentioned that he is still peeing a lot and not very much at a time, and his urine seems cloudy. Do you want him to go on another antibiotic or wait? * Telephone Encounter - Lalitha Pathak - 06/29/2023 11:06 AM CDT Spouse, Nelia, , requesting information be added to prior letter sent for their timeshareas the company is asking for more. Advise. documented in this encounter Plan of Treatment Upcoming Encounters Date Type Department Care Team (Late st Contact Info) Description 10/31/2023 11:00 AM CHUCK BONER Office Visit [place] [address] [address] Hali Soriano, LIME SLUDGE KILN OPERATOR [address] [place] [address] documented as of this encounter Results * (ABNORMAL) Urine culture (07/04/2023 10:43 AM CDT) Urine Culture Staphylococcus aureus >100,000 cfu/ml Use oxacillin interpretation to predict results for anti-staphylococc al beta-lactam antibiotics (except ceftaroline). (A) 07/06/2023 8:07 AM CDT [facility] Urine (Saenz Insert) 07/04/2023 10:43 AM CDT 07/05/2023 1:23 PM CDT Comment:Urine Culture Narrative Organism Antibiotic Method Susceptibility Staphylococcus aureus Nitrofurantoin <=32 mcg/mL: Susceptible Staphylococcus aureus Oxacillin <=0.25 mcg/mL: Susceptible Staphylococcus aureus Tetracycline <=4 mcg/mL: Susceptible Staphylococcus aureus Trimeth/Sulfa <=0.5/9.5 mcg/mL: Susceptible Adarsh Carpenter MD LAB MICROBIOLOGY - G ENERAL ORDERABLES [facility] [address] [place] [address] documented in this encounter Visit Diagnoses Diagnosis Frequency of micturition- Primary Urinary frequency documented in this encounter Additional Health Concerns Infection Onset Date Last Indicated Resolved Time MSSA 06/19/2023 07/04/2023 07/17/2023 2:29 PM CDT documented as of this encounter Care Teams Hitcher Relationship Specialty Start Date End Date Adarsh Carpenter MD [address] [place] [phone] PCP - General 05/07/18 07/18/23 documented as of this encounter
--- OUTSIDE RECORDS SUMMARY | 2023-10-28 13:45 | XMS_ITS | Encounter Summary ---
Author Name Unknown Organization [facility] er Address [address] [place] [address] Care Team Providers Care Survey Operations Director Name Role Phone Adarsh Carpenter MD Primary Care Provider [phone] Reason for Visit * Reason Comments Medication Visit Encounter Details Date Type Department Care Team (Late st Contact Info) Description 12/27/2022 10:00 AM CDT Office Visit [place] [address] [place] [address] Adarsh Carpenter MD [address] [place] [address] Encounter for wellness examination in adult (Primary Dx); Multiple sclerosis (HCC); Screening for deficiency anemia; Prediabetes; Screening cholesterol level; Prostate cancer screening; History of pulmonary embolism; Current use of skilled nursing anticoagulation; Neurogenic bladder; Incontinence of feces, unspecified fecal incontinence type; Recurrent urinary tract infection; Bladder stones; Detrusor instability Social History Tobacco Use Types Packs/Day Years [...] Date Recorded PHQ-9 Total Score 1 04/24/2022 [facility] - Occupational Stress Questionnaire Answer Date [...] Sign Reading Time Taken Comments Blood Pressure 127/88 12/27/2022 9:41 AM CDT Pulse 94 12/27/2022 9:41 AM CDT Temperature 37 ??C (98.6 ??F) 12/27/2022 9:41 AM CDT Respiratory Rate 16 12/27/2022 9:41 AM CDT Oxygen Saturation 91% 12/27/2022 9:41 AM CDT Inhaled Oxygen Concentration - - Weight - - Height - - Body Mass Index - - documented in this encounter Progress Notes * Adarsh Carpenter MD - 12/27/2022 10:00 AM CDT Subjective Patient ID: Dwain Hinds is a 62 y.o. male. HPI the patient is here today for his annual review appropriate laboratory testing medication renewal and so forth. RECENT HOSPITALIZATIONS patient has recently been seen in the [place] emergency room on 2 occasions this winter time for a UTI is treated as an outpatient. On the last occasion he was admitted because of the systemic symptoms he was having. He had a CT scan done which shows that he has recurrent bladder stones. Previously once he had his bladder stones removed he did not have another UTI for quite a few years. I have asked the who is his caregiver to contact the urology department wherehe was previously at and schedule a follow-up visit at this time. MULTIPLE SCLEROSIS he has had for greater than 25 years or so. He became wheelchair dependent 2016 having lost all motor functions from the chest down to in particular from the waist on down. He has a reasonable use of his right upper extremity being able to feed himself and control his motorized wheelchair left upper extremity less so. He has lost control of his bladder and bowels He has some specialized equipment including hospital bed that can be adjusted for height motorized wheelchair other than that his will take care of him. NEUROGENIC BLADDER he has had a neurogenic bladder from his MS for many years has been catheterizing himself via his for many years. 4 times a day. They do use sterile technique. FECAL INCONTINENCE in the last number of months he has been having increased frequency of fecal incontinence since he does not have a any sensation from the chest and down he is not even aware that he has had loss of control of his bowel movements. The has used previously adult diapers and find that they were real beneficial because they always seem to seep stool quite a bit however maybe new products have been developed and we will send a request into [facility] for DME equipment. SLEEP APNEA patient has risk factors for sleep apnea he was checked previously and told he was negative. He does not snore and he sleeps upright at about 30 degrees at night. NEW WHEELCHAIR patient fell he acquired a brand-new updated motorized wheelchair that is working very well for him. COUMADIN DOSING he does at home INR is once weekly has monitored by our coag clinic. SMOKING quit > 20 years ago ALCOHOL quit more than 40 years ago ALLERGIES to penicillin and bee stings MEDICATIONS Lipitor 20 mg daily Baclofen 10 mg daily Pataday eyedrops if needed for allergies Ditropan 5 mg twice daily Coumadin 2 mg tablet per INR reports MEDICAL HISTORY Multiple sclerosis Hyperlipidemia Periodic muscular spasms PE/DVT chronic anticoagulant therapy Neurogenic bladder Rectal incontinence Family history of colon cancer Wheelchair dependent History of sepsis with recurrent UTIs History of both kidney stones and bladder stones Mild hearing loss History of depression not needing treatment currently History of pressure sores but not the last number of years Spastic paraparesis Paraplegia Risk factors for obstructive sleep apnea Prediabetic with an A1c of 5.8 one-year ago SURGICAL HISTORY Tonsils and adenoidectomy Left arm fracture requiring bone grafting History of colon polyps History of kidney stone and bladder stone removal Madi in his left femur secondary to traumatic fracture SOCIAL HISTORY he has been since 1977 has 4 children and 12 grandchildren. 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 FAMILY HISTORY his mother age 89 COPD history of colon cancer. Father age 69 of heart disease. 2 brothers 1 sister living COLON CANCER SCREENING next due 2024 PSA testing done routinely Have encouraged him to make an eye doctor appointment as he has not done so for quite some time. Discussed dental visits Review of Systems current review of systems shows she looks well no fever chills coughs or colds noshortness of breath chest pain palpitation no GI or concerns that the patient expresses other than what we discussed. No unusual aches or pains lumps or bumps fluid retention skin lesions or skin sores. Objective Physical Exam he is alert he appears comfortable vital signs show the following Blood pressure 127/88 Pulse 94 regular rate and rhythm Temp 98.6 Weight undetermined since he is in a wheelchair is unable to be weighed O2 sats 92% Ears are clear Pupils equal Tongue is moist throat is clear small oral airway noted Neck no adenopathy no thyromegaly no carotid bruits no masses Lungs are reasonably clear reasonable inspiratory and expiratory uptake Cardiac regular rate and rhythm without heart murmur Abdomen soft nontender no obvious masses or hernias no hepatosplenomegaly Extremities without edema Laboratory test were acquired Assessment/Plan Diagnoses and all orders for this visit: Encounter for wellness examination in adult Multiple sclerosis (HCC) Screening for deficiency anemia - CBC Branch Off w/Diff; Future Prediabetes - Basic metabolic panel; Future - Hemoglobin A1c; Future Screening cholesterol level - Lipid panel; Future Prostate cancer screening - PSA; Future History of pulmonary embolism Current use of skilled nursing anticoagulation Neurogenic bladder Incontinence of feces, unspecified fecal incontinence type Recurrent urinary tract infection Bladder stones The assessment is as discussed above and the plan at this time is appropriate laboratory test renewal of medications try to find his old sleep study report and DME products for stool incontinence. Patient's to contact his Urologist to schedule consultation Recommend eye examination documented in this encounter Plan of Treatment Upcoming Encounters Date Type Department Care Team (Late st Contact Info) Description 10/31/2023 11:00 AM TEST ANALYST Office Visit [place] [address] [place] [address] Hali Soriano, CRYOGENIC TRANSPORT DRIVER [address] [place] [address] documented as of this encounter Results * PSA (12/27/2022 10:54 AM CDT) Total PSA 2.0 0.0 - 5.1 ng/mL 12/28/2022 1:46 PM CDT [facility] Comment: The results from this [...] method is an immunometric assay manufactured by [employer] and performed on the Hatsize 5600 system. Biotin levels in serum remain [...] indicate the need for additional testing. Blood 12/27/2022 10:5 4 AM CDT 12/28/2022 12:39 PM CDT Adarsh Carpenter MD LAB BLOOD ORDERABLES [facility] [address] [place] [address] * Hemoglobin A1c (12/27/2022 10:54 AM CDT) Hemoglobin A1C 5.5 4.0 - 5.6 % A1C 12/28/2022 7:31 PM CDT [facility] Comment: Reference Range 4.0-5.6% is for non- adults >=18 yrs <5.6% ? Non-Diabetic 5.7-6.4% ??Increased risk of Diabetes >=6.5% ?Indicative of Diabetes <7.0% ? ADA goal for glycemic control Methodology may not detect all hemoglobin variants which can affect A1c results. Method certified by National Glycohemoglobin Standardization Program. Blood 12/27/2022 10:5 4 AM CDT 12/28/2022 12:35 PM CDT DLatanya Carpenter MD LAB BLOOD ORDERABLES [facility] [address] [place] [id number] * (ABNORMAL) Lipid panel (12/27/2022 10:54 AM CDT) Cholesterol 148 0 - 199 mg/dL 12/28/2022 1:30 PM T [facility] Comment: Recommended by National Cholesterol Education Program (ATP III) -------- Cholesterol Ranges -------- <200 ?Desirable 200-239 ? Borderline high >=240 ? High Triglycerides 95 0 - 149 mg/dL 12/28/2022 1:30 PM CDT [facility] Comment: -------- TRIG Ranges -------- <150 ?Normal 150-199 ? Borderline high 200-499 ? High >=500 ? Very high HDL 37(L) 40 - 250 mg/dL 12/28/2022 1:30 PM CDT [facility] Comment: -------- HDL Ranges -------- <40 ?Low 40-59 ?Normal >=60 ? Optimal LDL Calculated 92 0 - 99 mg/dL 12/28/2022 1:30 PM CDT [facility] Comment: -------- LDL Ranges -------- <100 ? Optimal 100-129 ?Near optimal/above optimal 130-159 ?Borderline high 160-189 ?High >=190 ?Very high Fasting? Yes 12/27/2022 10:54 AM CDT [facility] Blood 12/27/2022 10:5 4 AM CDT 12/28/2022 12:35 PM CDT DLatanya Carpenter MD LAB BLOOD ORDERABLES [facility] [address] [place] [id number] * (ABNORMAL) Basic metabolic panel (12/27/2022 10:54 AM CDT) Sodium 140 135 - 145 mmol/L 12/27/2022 11:34 AM CDT [facility] [employer] [facility] Potassium 4.5 3.5 - 5.1 mmol/L 12/27/2022 11:34 AM CDT [facility] Comment: . Chloride 108(H) 98 - 107 mmol/L 12/27/2022 11:34 AM CDT [facility] [employer] Comment: . CO2 32(H) 22 - 31 mmol/L 12/27/2022 11:34 AM CDT [facility] [employer] Comment: . Creatinine 0.8 0.6 - 1.4 mg/dL 12/27/2022 11:34 AM CDT [facility] [employer] Comment: . BUN 13 5 - 25 mg/dL 12/27/2022 11:34 AM CDT [facility] Comment: . Glucose 94 70 - 100 mg/dL 12/27/2022 11:34 AM CDT [facility] Calcium, Total,S 9.5 8.4 - 10.2 mg/dL 12/27/2022 11:34 AM CDT [facility] Comment: . Blood 12/27/2022 10:5 4 AM CDT 12/27/2022 10:54 AM CDT Adarsh Carpenter MD LAB BLOOD ORDERABLES [facility] [address] [place] [address] * (ABNORMAL) CBC Branch Off w/Diff (12/27/2022 10:54 AM CDT) WBC 6.0 3.5 - 10.5 K/uL 12/27/2022 11:34 AM CDT [facility] RBC 5.65 4.30 - 5.70 M/uL 12/27/2022 11:34 AM CDT [facility] Hemoglobin 16.7 13.5 - 17.5 g/dL 12/27/2022 11:34 AM CDT [facility] Hematocrit 52.4(H) 38.0 - 50.0 % 12/27/2022 11:34 AM CDT [facility] Platelets 271 150 - 450 K/uL 12/27/2022 11:34 AM CDT [facility] MCV 92.7 81.2 - 95.1 fL 12/27/2022 11:34 AM CDT [facility] MCH 29.6 26.0 - 32.0 pg 12/27/2022 11:34 AM CDT [facility] MCHC 31.9(L) 32.0 - 36.0 g/dL 12/27/2022 11:34 AM CDT [facility] RDW 15.5 11.8 - 15.6 % 12/27/2022 11:34 AM CDT [facility] Lymphocytes % 18.7 % 12/27/2022 11:34 AM CDT [facility] Mid-size Cells 6.6 % 12/27/2022 11:34 AM CDT [facility] Granulocytes/Mason trophils 74.7 % 12/27/2022 11:34 AM CDT [facility] Lymphocytes Absolute 1.1 0.9 - 2.9 K/uL 12/27/2022 11:34 AM CDT [facility] MIDS Absolute 0.4 0.4 - 1.5 K/uL 12/27/2022 11:34 AM CDT [facility] Granulocytes/Mason trophils Absolute 4.5 1.7 - 7.0 K/uL 12/27/2022 11:34 AM CDT [facility] Blood (Blood, Venous) 12/27/2022 10:54 AM CDT 12/27/2022 10:54 AM CDT Adarsh Carpenter MD LAB BLOOD ORDERABLES [facility] [address] [place] [address] documented in this encounter Visit Diagnoses Diagnosis Encounter for wellness examination in adult- Primary Multiple sclerosis (HCC) Multiple sclerosis Screening for deficiency anemia Screening for other and unspecified deficiency anemia Prediabetes Other abnormal glucose Screening cholesterol level Screening for lipoid disorders Prostate cancer screening Special screening for malignant neoplasm of prostate History of pulmonary embolism Personal history of venous thrombosis and embolism Current use of skilled nursing anticoagulation Neurogenic bladder Neurogenic bladder, NOS Incontinence of feces, unspecified fecal incontinence type Recurrent urinary tract infection Urinary tract infection, site not specified Bladder stones Other calculus in bladder Detrusor instability Other functional disorder of bladder documented in this encounter Care Teams Survey Operations Director Relationship Specialty Start Date End Date Adarsh Carpenter MD [address] [place] [address] PCP - General 05/07/18 07/18/23 documented as of this encounter
--- OUTSIDE RECORDS SUMMARY | 2023-10-28 13:45 | XMS_ITS | Encounter Summary ---
Author Name Unknown Organization [facility] er Address [address] [place] [address] Care Team Providers Care Copy Lathe Operator Name Role Phone Adarsh Carpenter MD Primary Care Provider [phone] Encounter Details Date Type Department Care Team (Latest Contact Info) Description 11/15/2022 Anticoagulation - Warfarin Visit [facility]/Internal Medicine - Third Floor [address] [place] [address] Dolores Cleary, RN [address] [place] [address] terminal superintendent current use of anticoagulant (Primary Dx); Other [...] any clubs o r organizations such as jehovah's witness groups, unions, [...] PHQ-9 Total Score 1 04/24/2022 [facility] Answer Date [...] or slept in a retirement (including now)? No 04/24/2022 Sex and Gender Information Value Date Recorded Sex Assigned at Not on file Gender Identity Not on file Sexual Orientation Not on file documented as of this encounter Progress Notes * Dolores Cleary RN - 11/15/2022 10:52 AM CST Anticoagulation Clinic INR RESULTS: INR (no units) Date Value 11/15/2022 2.10 (A) DOSE PLAN: 4 mg Mon, Wed, Fri; 2 mg all other days DOSE CHANGE: No change NEXT INR: 11/29/2022 INR results not reviewed with patient. INR is within patient's goal range and dosing instructions have not been changed. AVS not mailed. ISITIONS ASSISTANT documented in this encounter Plan of Treatment Upcoming Encounters Date Type Department Care Team (Late st Contact Info) Description 10/31/2023 11:00 AM ACQUISITIONS ASSISTANT Office Visit [place] [address] [place] [address] Hali Soriano, EVENT TECHNICIAN [address] [place] [address] documented as of this encounter Procedures Procedure Name Priority Date/Time Associated Diagnosis Comments PROTIME-INR Routine 11/15/2022 documented in this encounter Results * (ABNORMAL) Protime-INR (11/15/2022) INR 2.10(A) 0.9 - 1.1 HOME HEALT H POINT OF CARE TESTING Protime HOME HEALT H POINT OF CARE TESTING Blood (Blood, Venous) Narrative Resulting Agency Comment [employer] fax Historical Provider LAB BLOOD ORDERAB LES HOME HEALTH POINT OF CARE TESTING documented in this encounter Visit Diagnoses Diagnosis 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
--- OUTSIDE RECORDS SUMMARY | 2023-10-28 13:45 | XMS_ITS | Encounter Summary ---
Author Name Unknown Organization [facility] er Address [address] [place] [address] Care Team Providers Care Space Control Supervisor Name Role Phone Adarsh Carpenter MD Primary Care Provider [phone] Encounter Details Date Type Department Care Team (Latest Contact Info) Description 12/27/2022 Anticoagulation - Warfarin Visit [facility]/Internal Medicine - Third Floor [address] [place] [address] Anna Betts, RN [address] [facility] [place] [address] terminal manager current use of [...] often do you attend chur ch or orthodoxy services? 1 to 4 times per year 04/24/2022 Do you belong to any clubs o r organizations such as spiritism groups, unions, fraternal [...] Date Recorded PHQ-9 Total Score 1 04/24/2022 [facility] Answer Date [...] Progress Notes * Anna Betts RN - 12/27/2022 8:43 AM CDT Anticoagulation Clinic INR RESULTS: INR (no units) Date Value 12/27/2022 1.90 (A) DOSE PLAN: 2mg every Sun, , Sat; 4mg all other days DOSE CHANGE: Increased by 10% (2 mg/week) NEXT INR: 01/10/23 INR results reviewed with the patient's spouse. Patient's spouse verbalized understanding of anticoagulation dose plan and date of next INR. Patient is a home liz and has been subtherapeutic for 6 weeks now, therefore, one dose increase to maintenance plan provided, 10% after changing one day from 2mg to 4mg documented in this encounter Plan of Treatment Upcoming Encounters Date Type Department Care Team (Late st Contact Info) Description 10/31/2023 11:00 AM PUBLICATIONS EDITOR Office Visit [place] [address] [place] [address] Hali Soriano, GELATIN POWDER MIXER [address] [place] [address] documented as of this encounter Procedures Procedure Name Priority Date/Time Associated Diagnosis Comments PROTIME-INR Routine 12/27/2022 documented in this encounter Results * (ABNORMAL) Protime-INR (12/27/2022) INR 1.90(A) 0.9 - 1.1 HOME HEALT [...] (HCC) documented in this encounter Care Teams Space Control Supervisor Relationship Specialty Start Date End Date Adarsh Carpenter MD [address] [phone] PCP - General 05/07/18 07/18/23 documented as of this encounter
--- OUTSIDE RECORDS SUMMARY | 2023-10-28 13:45 | XMS_ITS | Encounter Summary ---
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 1 to 4 times per year 04/24/2022 Do you belong to any clubs o r organizations such as sikh groups, unions, fraternal [...] Date Recorded PHQ-9 Total Score 1 04/24/2022 [facility] - Occupational Stress Questionnaire Answer Date [...] Progress Notes * Gregoria Bustamante RN - 02/12/2023 12:42 PM CDT Anticoagulation Clinic INR RESULTS: INR (no units) Date Value 02/12/2023 1.80 (A) DOSE PLAN: 2 mg every Sun, Sondra, Sat; 4 mg all other days DOSE CHANGE: No change NEXT INR: 02/27/23 INR results not reviewed with patient. INR is within patient's goal range and dosing instructions have not been changed. Patient is a home liz, checks at least every 2 weeks. AVS not mailed. documented in this encounter Plan of Treatment Upcoming Encounters Date Type Department Care Team (Late st Contact Info) Description 10/31/2023 11:00 AM DIRECTOR TRADING Office Visit [place] [address] [place] [address] Hali Soriano, JUDICIAL ASSISTANT [address] [place] [address] documented as of this encounter Procedures Procedure Name Priority Date/Time Associated Diagnosis Comments PROTIME-INR Routine 02/12/2023 documented in this encounter Results * (ABNORMAL) Protime-INR (02/12/2023) INR 1.80(A) 0.9 - 1.1 HOME HEALT H POINT OF CARE TESTING Protime HOME HEALT H POINT OF CARE TESTING Blood (Blood, Venous) Narrative Resulting Agency Comment [employer] fax Historical Provider LAB BLOOD ORDERAB LES HOME HEALTH POINT OF CARE TESTING documented in this encounter 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
--- OUTSIDE RECORDS SUMMARY | 2023-10-28 13:45 | XMS_ITS | Encounter Summary ---
Author Name Unknown Organization [facility] er Address [address] [place] [address] Care Team Providers Care Erp Programmer Name Role Phone Adarsh [place] MD Primary Care Provider [phone] Reason for Visit * Reason Onset Date Comments Update from Dr. South 02/07/2023 Encounter Details Date Type Department Care Team (Late st Contact Info) Description 02/07/2023 Telephone [place] [address] [place] [address] Adarsh [place] MD [address] [facility] 20 [place] [address] South Social History Tobacco Use Types Packs/Day Years [...] often do you attend chur ch or lutheran services? 1 to 4 times per year 04/24/2022 Do you belong to any clubs o r organizations such as zoroastrian groups, unions, fraternal [...] Date Recorded PHQ-9 Total Score 1 04/24/2022 [facility] [...] the money to buy more. Never true 07/25/20 22 Within the past 12 months, t [...] Telephone Encounter - Vidhya Bain LPN - 02/07/2023 2:36 PM CDT noted * Telephone Encounter - Lalitha Pathak - 02/07/2023 2:33 PM CDT [facility] nurse called and scheduled hospital discharge F/U appt w/Dr. [place] for 02.12.23 and INR. * Telephone Encounter - Vidhya Bain LPN - 02/07/2023 2:23 PM CDT Can you call Hans and get him an appointment with Dr. [place] Sunday or Sunday and an INR. * Telephone Encounter - Adarsh [place] MD - 02/07/2023 9:53 AM CDT Seeing Dhruv either this coming Sunday or Sunday would be okay. * Telephone Encounter - Vidhya Bain LPN - 02/07/2023 9:[address] South Sending Dhruv home today, he came in with a UTI. Blood culture negative for sepsis. Sending him home on Cypro due to UTI. Stones are acute, one in kidney and a couple in bladder, she is going to encourage him see Urology but will leave it up to the family. Lab: INR Sunday or Sunday. Office: Would prefer him see you Sunday or Sunday. Notes from the hospitalist: Bilirubin went up but came back down during his stay which she thought she should mention due to her feeling it was weird. Spasm in the left upper arm, she did not U/S it due to his INR being within range. She wanted to mention this as it was also weird. She said she did NOT need a call back but in case you had questions after the notes arrived here from [place] (after reviewing) you could call her. documented in this encounter Plan of Treatment Upcoming Encounters Date Type Department Care Team (Late st Contact Info) Description 10/31/2023 11:00 AM TRACK ANNOUNCER Office Visit [place] [address] [address] Hali Soriano, REAL ESTATE PARALEGAL [address] [place] [address] documented as of this encounter Visit Diagnoses Not on filedocumented in this encounter Care Teams Erp Programmer Relationship Specialty Start Date End Date Adarsh [place] MD [facility] [address] [place] [address] PCP - General 05/07/18 07/18/23 documented as of this encounter
--- OUTSIDE RECORDS SUMMARY | 2023-10-28 13:45 | XMS_ITS | Encounter Summary ---
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 1 to 4 times per year 04/24/2022 Do you belong to any clubs o r organizations such as denominational groups, unions, fraternal [...] Total Score 1 04/24/2022 [facility] Questionnaire Answer Date [...] Progress Notes * Dolores Cleary RN - 02/21/2023 3:27 PM CDT Anticoagulation Clinic INR RESULTS: INR (no units) Date Value 02/21/2023 3.10 (A) DOSE PLAN: 2 mg Tue, Sondra, Sat; 4 mg all other days DOSE CHANGE: No change NEXT INR: 03/07/2023 INR results not reviewed with patient. INR is considered within patient's goal range and dosing instructions have not been changed. AVS not mailed. Patient is a home liz. documented in this encounter Plan of Treatment Upcoming Encounters Date Type Department Care Team (Late st Contact Info) Description 10/31/2023 11:00 AM AUTO CLAIM REPRESENTATIVE Office Visit [place] [address] [place] [address] Hali Soriano, CONCRETE POURER [address] [place] [address] documented as of this encounter Procedures Procedure Name Priority Date/Time Associated Diagnosis Comments PROTIME-INR Routine 02/21/2023 documented in this encounter Results * (ABNORMAL) Protime-INR (02/21/2023) INR 3.10(A) 0.9 - 1.1 HOME HEALT H POINT OF CARE TESTING Protime HOME HEALT H POINT OF CARE TESTING Blood (Blood, Venous) Narrative Resulting Agency Comment [employer] fax Historical Provider LAB BLOOD ORDERAB LES HOME HEALTH POINT OF CARE TESTING documented in this encounter Visit Diagnoses Diagnosis longterm current use of anticoagulant- Primary Other pulmonary embolism without acute cor pulmonale, unspecified chronicity (HCC) documented in this encounter Care Teams Industrial Methods Consultant Relationship Specialty Start Date End Date Adarsh [place] MD [address] [place] [address] PCP - General 05/07/18 07/18/23 documented as of this encounter
--- OUTSIDE RECORDS SUMMARY | 2023-10-28 13:45 | XMS_ITS | Encounter Summary ---
Author Name Unknown Organization [facility] er Address [address] [place] [address] Care Team Providers Care Lumber Yard Worker Name Role Phone Adarsh [place] MD Primary Care Provider [phone] Encounter Details Date Type Department Care Team (Late st Contact Info) Description 12/08/2022 Telephone [place] [address] [place] [address] Adarsh [place] MD [address] [place] [address] Social History Tobacco Use Types Packs/Day Years [...] Date Recorded PHQ-9 Total Score 1 04/24/2022 [facility] - Occupational Stress Questionnaire Answer Date [...] Telephone Encounter - Vidhya Bain LPN - 12/08/2022 1:55 PM CST Noted ICAL SECURITY SPECIALIST * Telephone Encounter - Lalitha Pathak - 12/08/2022 1:07 PM CST Durable Medical Equipment order faxed to [facility]. ICAL SECURITY SPECIALIST * Telephone Encounter - Sofia Denson RN - 12/08/2022 12:13 PM CST Please fax to [facility]. ICAL SECURITY SPECIALIST * Telephone Encounter - Adarsh [place] MD - 12/08/2022 11:48 AM PHYSICAL SECURITY SPECIALIST Order printed and signed. ICAL SECURITY SPECIALIST * Telephone Encounter - Sofia Denson RN - 12/08/2022 9:33 AM CST Please see pended Rx for catheter supplies. Josuelarissa Doefield requesting this. ICAL SECURITY SPECIALIST documented in this encounter Plan of Treatment Upcoming Encounters Date Type Department Care Team (Late st Contact Info) Description 10/31/2023 11:00 AM PHYSICAL SECURITY SPECIALIST Office Visit [address] [address] Hali Soriano, TRIMMER AND REINFORCER [address] [place] [address] documented as of this encounter Visit Diagnoses Diagnosis Neurogenic bladder- Primary Neurogenic bladder, NOS documented in this encounter Care Teams Lumber Yard Worker Relationship Specialty Start Date End Date Adarsh [place] MD [address] [place] [phone] PCP - General 05/07/18 07/18/23 documented as of this encounter
--- OUTSIDE RECORDS SUMMARY | 2023-10-28 13:45 | XMS_ITS | Encounter Summary ---
Author Name Unknown Organization [facility] er Address [address] [place] [address] Care Team Providers Care Tongue Lining Stitcher Name Role Phone Adarsh [place] MD Primary Care Provider [phone] Encounter Details Date Type Department Care Team (Latest Contact Info) Description 12/13/2022 Anticoagulation - Warfarin Visit 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 Today his INR is still slightly low, and a dose adjustment would be too much at 10%, so another one time booster dose is advised to get him back in goal range. Left detailed phone message regarding INR results, anticoagulation dose plan, and when to recheck INR for patient's , Nelia. Instructions left to call with any questions or concerns. Patient is a home liz. documented in this encounter Plan of Treatment Upcoming Encounters Date Type Department Care Team (Late st Contact Info) Description 10/31/2023 11:00 AM AEROSPACE CONTROL AND WARNING SYSTEMS Office Visit [place] [address] [address] Christie Hali M., OFFICE SERVICES REPRESENTATIVE [address] [place] [address] documented as of this encounter Procedures Procedure Name Priority Date/Time Associated Diagnosis Comments PROTIME-INR Routine 12/13/2022 documented in this encounter Results * (ABNORMAL) Protime-INR (12/13/2022) INR 1.90(A) 0.9 - 1.1 HOME HEALT H POINT OF CARE TESTING Protime HOME HEALT H POINT OF CARE TESTING Blood (Blood, Venous) Historical Provider LAB BLOOD ORDERAB LES HOME HEALTH POINT OF CARE TESTING documented in this encounter 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
--- OUTSIDE RECORDS SUMMARY | 2023-10-28 13:45 | XMS_ITS | Encounter Summary ---
Author Name Unknown Organization [facility] er Address [address] [place] [address] Care Team Providers Care Operations Director Name Role Phone Adarsh [place] MD Primary Care Provider [phone] Encounter Details Date Type Department Care Team (Late st Contact Info) Description 12/28/2022 Telephone [place] [address] [place] [address] Adarsh [place] MD [address] [place] [address] Social History Tobacco Use Types Packs/Day Years [...] any clubs o r organizations such as scientologist groups, unions, fraternal [...] Date Recorded PHQ-9 Total Score 1 04/24/2022 [facility] Occupational Stress Questionnaire Answer [...] Telephone Encounter - Adarsh [place] MD - 12/29/2022 11:59 AM CDT Noted * Telephone Encounter - Sofia Denson RN - 12/29/2022 10:12 AM CDT Spoke to Nelia, she mentioned that she spoke to Dhruv about this last night also and that he isn't veryinterested at this time. However, she is going to talk to him again and let us know what they decide. * Telephone Encounter - Sofia Denson RN - 12/28/2022 3:[address] [place] would like us to call tomorrow and talk to Nelia regarding sleep study. * Telephone Encounter - Sofia Denson RN - 12/28/2022 3:23 PM CDT Noted. * Telephone Encounter - Adarsh [place] MD - 12/28/2022 3:20 PM CDT Called and specifically talked to Nelia. People can certainly have sleep apnea and they can still sleep perfectly okay. The oximeter readings from 4 years ago indicated fairly significant concerns for sleep apnea and I do feel it is worth the effort to be evaluated as it could lead to future medical issues primarily related to the pulmonary and cardiac systems. * Telephone Encounter - Sofia Denson RN - 12/28/2022 2:04 PM CDT RN spoke to patient, he stated that he would talk to Nelia about it when she returned home and call us back if they decide to move forward with this. Patient stated that he doesn't think he has any issues because he sleeps a lot and falls asleep easily. * Telephone Encounter - Herlinda Phillips - 12/28/2022 12:08 PM CDT Nelia called back * Telephone Encounter - Sofia Denson RN - 12/28/2022 8:55 AM CDT LMTC * Telephone Encounter - Adarsh [place] MD - 12/28/2022 8:47 AM CDT Call Nelia and let her know that Dhruv did not actually have a sleep study done but he did have an overnight oximetry done August 2019. This did show or highly suggest that he does have sleep apnea even if he does not snore. I would recommend that we refer him to our sleep medicine team at [place] for further evaluation. I would be unable to refer him to [place] or other places because they generally would require the patient to see one of their seo specialist or providers first and thenthey would be able to help order further testing. The simplest thing is just to refer to [facility] to consult with the sleep medicine team. As discussed the actual sleep test might be ableto be performed in the home which would be more convenient. However some patients and particularly Medicare patients may still require an in the hospital sleep study evaluation in order to maximize reimbursement. Again I would recommend this and if she is willing to have this scheduled for Dhrvu let me know and we will place the orders. * Telephone Encounter - Sofia Denson RN - 12/28/2022 8:16 AM CDT I do not see a sleep study in care everywhere or his legacy chart. Patient had an oximetry study on08/26/2019. * Telephone Encounter - Sofia Denson RN - 12/28/2022 7:58 AM CDT ----- Message from Adarsh [place] MD sent at 12/27/2022 5:24 PM CDT ----- I believe Dhruv had a sleep study done possibly even through [facility]. See if he can find a copy of the report either on [place]'s charts or care everywhere. Let me know what you come up with documented in this encounter Plan of Treatment Upcoming Encounters Date Type Department Care Team (Late st Contact Info) Description 10/31/2023 11:00 AM SOLAR SYSTEM DESIGNER Office Visit [place] [address] [facility] [place], [place] [phone] Hali Soriano, DRIER OPERATOR [address] [place] [address] documented as of this encounter Visit Diagnoses Not on filedocumented in this encounter Care Teams Operations Director Relationship Specialty Start Date End Date Adarsh [place] MD [address] [place] [address] PCP - General 05/07/18 07/18/23 documented as of this encounter
--- OUTSIDE RECORDS SUMMARY | 2023-10-28 13:45 | XMS_ITS | Encounter Summary ---
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 1 to 4 times per year 04/24/2022 Do you belong to any clubs o r organizations such as mandaen groups, unions, fraternal [...] Date Recorded PHQ-9 Total Score 1 04/24/2022 [facility]ational [facility] Questionnaire Answer Date [...] Progress Notes * Dolores Cleary RN - 03/07/2023 11:35 AM CDT Anticoagulation Clinic INR RESULTS: INR (no units) Date Value 03/07/2023 2.60 (A) DOSE PLAN: 2 mg Tue, Sondra, Sat; 4 mg all other days DOSE CHANGE: No change NEXT INR: 03/21/2023 INR results not reviewed with patient. INR is within patient's goal range and dosing instructions have not been changed. AVS not mailed. Patient is a home liz. documented in this encounter Plan of Treatment Upcoming Encounters Date Type Department Care Team (Late st Contact Info) Description 10/31/2023 11:00 AM TRAY WORKER Office Visit [place] [address] [place] [address] Hali Soriano, PROJECT EXECUTIVE [address] [place] [address] documented as of this encounter Procedures Procedure Name Priority Date/Time Associated Diagnosis Comments PROTIME-INR Routine 03/07/2023 documented in this encounter Results * (ABNORMAL) Protime-INR (03/07/2023) INR 2.60(A) 0.9 - 1.1 HOME HEALT H POINT OF CARE TESTING Protime HOME HEALT H POINT OF CARE TESTING Blood (Blood, Venous) Narrative Resulting Agency Comment [employer] fax Historical Provider LAB BLOOD ORDERAB LES HOME HEALTH POINT OF CARE TESTING documented in this encounter Visit Diagnoses Diagnosis 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
--- OUTSIDE RECORDS SUMMARY | 2023-10-28 13:45 | XMS_ITS | Encounter Summary ---
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 1 to 4 times per year 04/24/2022 Do you belong to any clubs o r organizations such as yarsani groups, unions, fraternal [...] PHQ-9 Total Score 1 04/24/2022 [facility]ational [facility] Questionnaire Answer Date Recorded [...] Progress Notes * Iliana [place], RN - 01/24/2023 12:20 PM CDT Anticoagulation Clinic INR RESULTS: INR (no units) Date Value 01/24/2023 2.50 (A) DOSE PLAN: 2 mg every e, Sondra, Sat; 4 mg all other days DOSE CHANGE: No change NEXT INR: 02/07/23 INR results not reviewed with patient. INR is within patient's goal range and dosing instructions have not been changed. Patient is a home liz, checks at least every 2 weeks. AVS not mailed. documented in this encounter Plan of Treatment Upcoming Encounters Date Type Department Care Team (Late st Contact Info) Description 10/31/2023 11:00 AM PRIVATE BRANCH EXCHANGE SERVICE ADVISOR Office Visit [place] [address] [place] [address] Hali Soriano, SENIOR MASTER SCHEDULER [address] [place] [address] documented as of this encounter Procedures Procedure Name Priority Date/Time Associated Diagnosis Comments PROTIME-INR Routine 01/24/2023 documented in this encounter Results * (ABNORMAL) Protime-INR (01/24/2023) INR 2.50(A) 0.9 - 1.1 HOME HEALT H POINT OF CARE TESTING Protime HOME HEALT H POINT OF CARE TESTING Blood (Blood, Venous) Historical Provider LAB BLOOD ORDERAB LES HOME HEALTH POINT OF CARE TESTING documented in this encounter 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
--- OUTSIDE RECORDS SUMMARY | 2023-10-28 13:45 | XMS_ITS | Encounter Summary ---
Author Name Unknown Organization [facility] er Address [address] [place] [address] Care Team Providers Care Disaster Director Name Role Phone Adarsh Carpenter MD Primary Care Provider [phone] Encounter Details Date Type Department Care Team (Late st Contact Info) Description 12/27/2022 11:15 AM CDT Lab [place] [address] [place] [address] Prostate cancer screening; Prediabetes; Screening cholesterol level; Screening for deficiency anemia Social History Tobacco Use Types Packs/Day Years [...] any clubs o r organizations such as gnosticist groups, unions, fraternal [...] Date Recorded PHQ-9 Total Score 1 04/24/2022 [facility] - Occupational [...] or slept in a half-way (including now)? No 04/24/2022 Sex and Gender Information Value Date Recorded Sex Assigned at Not on file Gender Identity Not on file Sexual Orientation Not on file documented as of this encounter Plan of Treatment Upcoming Encounters Date Type Department Care Team (Late st Contact Info) Description 10/31/2023 11:00 AM SEAM SEWER Office Visit [address] [place] [address] Hali Soriano, TRACER LATHE SET UP OPERATOR [address] [place] [address] documented as of this encounter Procedures Procedure Name Priority Date/Time Associated Diagnosis Comments ESTIMATED GLOMERULAR FILTRATION RATE (EGFR) Routine 12/27/2022 10:54 AM CDT Prediabetes CBC BRANCH OFFICE W/DIFF Routine 12/27/2022 10:54 AM CDT Screening for deficiency anemia PSA Routine 12/27/2022 10:54 AM CDT Prostate cancer screening HEMOGLOBIN A1C Routine 12/27/2022 10:54 AM CDT Prediabetes LIPID PANEL Routine 12/27/2022 10:54 AM CDT Screening cholesterol level BASIC METABOLIC PANEL Routine 12/27/2022 10:54 AM CDT Prediabetes documented in this encounter Results * Estimated Glomerular Filtration Rate (eGFR) (12/27/2022 10:54 AM CDT) Estimated Glomerular Filtration Rate (eGFR) >60 12/27/2022 11:34 AM CDT [facility] Comment: GFR calculated from serum creatinine value Chronic Kidney Disease less than 60 mL/min/1.73 m2 Kidney Failure less than 15 mL/min/1.73 m2 Note: effective 09/27/2022: 2020 CKD-EPI Equation used 12/27/2022 10:5 4 AM CDT 12/27/2022 10:54 AM CDT Adarsh Carpenter MD LAB BLOOD ORDERABLES [facility] [address] [place] [address] * (ABNORMAL) CBC Branch Off w/Diff (12/27/2022 10:54 AM CDT) Pathologist [facility] WBC 6.0 3.5 - 10.5 K/uL 12/27/2022 11:34 AM CDT [facility] RBC 5.65 4.30 - 5.70 M/uL 12/27/2022 11:34 AM CDT [facility] Hemoglobin 16.7 13.5 - 17.5 g/dL 12/27/2022 11:34 AM CDT [facility] Hematocrit 52.4(H) 38.0 - 50.0 % 12/27/2022 11:34 AM CDT [facility] Platelets 271 150 - 450 K/uL 12/27/2022 11:34 AM CDT [facility] MCV 92.7 81.2 - 95.1 fL 12/27/2022 11:34 AM CDT [facility] MCH 29.6 26.0 - 32.0 pg 12/27/2022 11:34 AM CDT [facility] MCHC 31.9(L) 32.0 - 36.0 g/dL 12/27/2022 11:34 AM CDT [facility] RDW 15.5 11.8 - 15.6 % 12/27/2022 11:34 AM CDT [facility] Lymphocytes % 18.7 % 12/27/2022 11:34 AM CDT [facility] Mid-size Cells 6.6 % 12/27/2022 11:34 AM CDT [facility] Granulocytes/Mason trophils 74.7 % 12/27/2022 11:34 AM CDT [facility] Lymphocytes Absolute 1.1 0.9 - 2.9 K/uL 12/27/2022 11:34 AM CDT [facility] MIDS Absolute 0.4 0.4 - 1.5 K/uL 12/27/2022 11:34 AM CDT [facility] Granulocytes/Mason trophils Absolute 4.5 1.7 - 7.0 K/uL 12/27/2022 11:34 AM CDT [facility] Blood (Blood, Venous) 12/27/2022 10:54 AM CDT 12/27/2022 10:54 AM CDT Adarsh Carpenter MD LAB BLOOD ORDERABLES [facility] [place] [address] [place] [address] * (ABNORMAL) Basic metabolic panel (12/27/2022 10:54 AM CDT) Sodium 140 135 - 145 mmol/L 12/27/2022 11:34 AM CDT [facility] [facility] Potassium 4.5 3.5 - 5.1 mmol/L 12/27/2022 11:34 AM CDT [facility] Comment: . Chloride 108(H) 98 - 107 mmol/L 12/27/2022 11:34 AM CDT [facility] Comment: . CO2 32(H) 22 - 31 mmol/L 12/27/2022 11:34 AM CDT [facility] Comment: . Creatinine 0.8 0.6 - 1.4 mg/dL 12/27/2022 11:34 AM CDT [facility] Comment: . BUN 13 5 - 25 mg/dL 12/27/2022 11:34 AM CDT [facility] Comment: . Glucose 94 70 - 100 mg/dL 12/27/2022 11:34 AM CDT [facility] Calcium, Total,S 9.5 8.4 - 10.2 mg/dL 12/27/2022 11:34 AM CDT [facility] Comment: . Blood 12/27/2022 10:5 4 AM CDT 12/27/2022 10:54 AM CDT Adarsh Carpenter MD LAB BLOOD ORDERABLES [facility] [address] [place] [address] * (ABNORMAL) Lipid panel (12/27/2022 10:54 AM CDT) Cholesterol 148 0 - 199 mg/dL 12/28/2022 1:30 PM [facility] Comment: Recommended by National Cholesterol Education Program (ATP III) -------- Cholesterol Ranges -------- <200 ?Desirable 200-239 ? Borderline high >=240 ? High Triglycerides 95 0 - 149 mg/dL 12/28/2022 1:30 PM [facility] Comment: -------- TRIG Ranges -------- <150 ?Normal 150-199 ? Borderline high 200-499 ? High >=500 ? Very high HDL 37(L) 40 - 250 mg/dL 12/28/2022 1:30 PM [facility] Comment: -------- HDL Ranges -------- <40 ?Low 40-59 ?Normal >=60 ? Optimal LDL Calculated 92 0 - 99 mg/dL 12/28/2022 1:30 PM [facility] Comment: -------- LDL Ranges -------- <100 ? Optimal 100-129 ?Near optimal/above optimal 130-159 ?Borderline high 160-189 ?High >=190 ?Very high Fasting? Yes 12/27/2022 10:54 AM CDT [facility] Blood 12/27/2022 10:5 4 AM CDT 12/28/2022 12:35 PM CDT Adarsh Carpenter MD LAB BLOOD ORDERABLES Performing Organization Address [facility] Co de Phone Number [facility] [address] [place] [address] * Hemoglobin A1c (12/27/2022 10:54 AM CDT) Hemoglobin A1C 5.5 4.0 - 5.6 % A1C 12/28/2022 7:31 PM CDT [facility] Comment: Reference Range 4.0-5.6% is for non- adults >=18 yrs <5.6% ? Non-Diabetic 5.7-6.4% ??Increased risk of Diabetes >=6.5% ?Indicative of Diabetes <7.0% ? ADA goal for glycemic control Methodology may not detect all hemoglobin variants which can affect A1c results. Method certified by National Glycohemoglobin Standardization Program. Blood 12/27/2022 10:5 4 AM CDT 12/28/2022 12:35 PM CDT Adarsh Carpenter MD LAB BLOOD ORDERABLES Performing Organization Address [facility] Co de Phone Number [facility] [address] [place] [address] * PSA (12/27/2022 10:54 AM CDT) Total PSA 2.0 0.0 - 5.1 ng/mL 12/28/2022 1:46 PM CDT [facility] Comment: The results from this or [...] method is an immunometric assay manufactured by [employer] and performed on the [employer] 5600 system. Biotin levels in serum remain [...] CDT Adarsh Carpenter MD LAB BLOOD ORDERABLES [facility] [address] [place] [address] documented in this encounter Visit Diagnoses Diagnosis Prostate cancer screening Special screening for malignant neoplasm of prostate Prediabetes Other abnormal glucose Screening cholesterol level Screening for lipoid disorders Screening for deficiency anemia Screening for other and unspecified deficiency anemia documented in this encounter Care Teams Disaster Director Relationship Specialty Start Date End Date Adarsh Carpenter MD [address] [facility] [address] [place] [address] PCP - General 05/07/18 07/18/23 documented as of this encounter
--- OUTSIDE RECORDS SUMMARY | 2023-10-28 13:45 | XMS_ITS | Encounter Summary ---
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 1 to 4 times per year [...] PHQ-9 Total Score 1 04/24/2022 [facility] Answer Date [...] slept in a longterm (including now)? No 04/24/2022 Sex and Gender Information Value Date Recorded Sex Assigned at Not on file Gender Identity Not on file Sexual Orientation Not on file documented as of this encounter Progress Notes * Dolores Cleary RN - 11/29/2022 1:09 PM CST Anticoagulation Clinic - RN Protocol Screening INR RESULTS: INR (no units) Date Value 11/29/2022 1.70 (A) DOSE PLAN: one time booster dose to 6 mg on 11/29/22; then resume 4 mg Mon, Wed, Fri; 2 mg all other days NEXT INR: 12/13/2022 VERIFY PREVIOUS DOSE PLAN Verified MISSED/EXTRA DOSES Yes, missed 2 mg MEDICATION CHANGES No DIET OR ALCOHOL CHANGES No RECENT ILLNESS/ HOSPITALIZATIONS No ABNORMAL BLEEDING OR BRUISING No FALLS OR INJURIES No NEW PAIN SYMPTOMS No NEW SHORTNESS OF BREATH No NEW NEUROLOGICAL SYMPTOMS No INR results reviewed with the patient's , Nelia. She verbalized understanding of anticoagulation dose plan and date of next INR. AVS mailed to patient. EMS ADMINISTRATION ANALYST documented in this encounter Plan of Treatment Upcoming Encounters Date Type Department Care Team (Late st Contact Info) Description 10/31/2023 11:00 AM SYSTEMS ADMINISTRATION ANALYST Office Visit [place] [address] [place] [address] Hali Soriano, FAT PURIFICATION WORKER [address] [place] [address] documented as of this encounter Procedures Procedure Name Priority Date/Time Associated Diagnosis Comments PROTIME-INR Routine 11/29/2022 documented in this encounter Results * (ABNORMAL) Protime-INR (11/29/2022) INR 1.70(A) 0.9 - 1.1 HOME HEALT H POINT OF CARE TESTING Protime HOME HEALT H POINT OF CARE TESTING Blood (Blood, Venous) Narrative Resulting Agency Comment [facility] fax Historical Provider LAB BLOOD ORDERAB LES [facility] POINT OF CARE TESTING documented in this encounter Visit Diagnoses Diagnosis detention current use of anticoagulant- Primary Other pulmonary embolism without acute cor pulmonale, unspecified chronicity (HCC) documented in this encounter Care Teams Rodding Machine Tender Relationship Specialty Start Date End Date Adarsh Carpenter MD [address] [place] [address] PCP - General 05/07/18 07/18/23 documented as of this encounter
--- OUTSIDE RECORDS SUMMARY | 2023-10-28 13:45 | XMS_ITS | Encounter Summary ---
Author Name Unknown Organization [facility] er Address [address] [place] [address] Care Team Providers Care Steel Pan Form Placing Supervisor Name Role Phone Adarsh Carpenter MD Primary Care Provider [phone] Reason for Visit * Reason Onset Date Comments UTI 02/05/2023 Encounter Details Date Type Department Care Team (Late st Contact Info) Description 02/05/2023 Telephone [place] [address] [place] [address] Adarsh Carpenter MD [address] [place] [address] UTI Social History Tobacco Use Types Packs/Day [...] often do you attend chur ch or moravian services? 1 to 4 times per year 04/24/2022 Do you belong to any clubs o r organizations such as pentecostal groups, unions, fraternal [...] PHQ-9 Total Score 1 04/24/2022 [facility] Answer Date Recorded [...] Telephone Encounter - Adarsh Carpenter MD - 02/05/2023 5:01 PM CDT noted * Telephone Encounter - Sofia Ibrahim - 02/05/2023 4:40 PM CDT Disregard message- pt is going into the ER * Telephone Encounter - Sofia Denson RN - 02/05/2023 3:23 PM CDT Please review request for medication. * Telephone Encounter - Hannah Farris - 02/05/2023 3:12 PM CDT Patients Nelia called stating Dwain has the symptoms of another uti. Nelia would like prescription sent to pharmacy today and will bring in a urine sample tomorrow if ok. Please call Nelia @ [phone] to discuss. documented in this encounter Plan of Treatment Upcoming Encounters Date Type Department Care Team (Late st Contact Info) Description 10/31/2023 11:00 AM BARREL BRIDGE ASSEMBLER Office Visit [address] [address] Hali Soriano, CLIP BAKER [address] [place] [address] documented as of this encounter Visit Diagnoses Not on filedocumented in this encounter Care Teams Steel Pan Form Placing Supervisor Relationship Specialty Start Date End Date Adarsh Carpenter MD [address] [place] [phone] PCP - General 05/07/18 07/18/23 documented as of this encounter
--- OUTSIDE RECORDS SUMMARY | 2023-10-28 13:45 | XMS_ITS | Encounter Summary ---
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 1 to 4 times per year 04/24/2022 Do you belong to any clubs o r organizations such as restorationist groups, unions, fraternal [...] Recorded PHQ-9 Total Score 1 04/24/2022 [facility] Answer [...] Progress Notes * Iliana Doyle, RN - 01/11/2023 10:01 AM CDT Anticoagulation Clinic INR RESULTS: INR (no units) Date Value 01/10/2023 2.50 (A) DOSE PLAN: 2 mg every e, Sondra, Sat; 4 mf all other days DOSE CHANGE: No change NEXT INR: 01/24/23 INR results not reviewed with patient. INR is within patient's goal range and dosing instructions have not been changed. AVS not mailed; patient is a home liz. documented in this encounter Plan of Treatment Upcoming Encounters Date Type Department Care Team (Late st Contact Info) Description 10/31/2023 11:00 AM DATA COLLECTION TECHNICIAN Office Visit [place] [address] [place] [address] Hali Soriano, FIRER TUNNEL KILN [address] [place] [address] documented as of this encounter Procedures Procedure Name Priority Date/Time Associated Diagnosis Comments PROTIME-INR Routine 01/10/2023 documented in this encounter Results * (ABNORMAL) Protime-INR (01/10/2023) INR 2.50(A) 0.9 - 1.1 HOME HEALT H POINT OF CARE TESTING Protime HOME HEALT H POINT OF CARE TESTING Blood (Blood, Venous) Historical Provider LAB BLOOD ORDERAB LES HOME HEALTH POINT OF CARE TESTING documented in this encounter 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
--- OUTSIDE RECORDS SUMMARY | 2023-10-28 13:46 | XMS_ITS | Encounter Summary ---
Author Name Unknown Organization [facility] er Address [address] [place] [address] Care Team Providers Care Applied Psychology Professor Name Role Phone Adarsh Carpenter MD Primary Care Provider [phone] Encounter Details Date Type Department Care Team (Latest Contact Info) Description 11/01/2022 Anticoagulation - Warfarin Visit [facility]/Internal Medicine - Third Floor [address] [place] [address] Dolores Cleary, RN [address] [place] [address] manager long term care current use of anticoagulant [...] PHQ-9 Total Score 1 04/24/2022 [facility]ational Stress Questionnaire Answer Date [...] Progress Notes * Dolores Cleary RN - 11/01/2022 11:36 AM CST Anticoagulation Clinic INR RESULTS: INR (no units) Date Value 11/01/2022 2.40 (A) DOSE PLAN: 4 mg Mon, Wed, Fri; 2 mg all other days DOSE CHANGE: No change NEXT INR: 11/15/2022 INR results not reviewed with patient. INR is within patient's goal range and dosing instructions have not been changed. AVS not mailed. SMISSION ENGINEER documented in this encounter Plan of Treatment Upcoming Encounters Date Type Department Care Team (Late st Contact Info) Description 10/31/2023 11:00 AM TRANSMISSION ENGINEER Office Visit [place] [address] [place] [address] Hali Soriano, BILLBOARD POSTER [address] [place] [address] documented as of this encounter Procedures Procedure Name Priority Date/Time Associated Diagnosis Comments PROTIME-INR Routine 11/01/2022 documented in this encounter Results * (ABNORMAL) Protime-INR (11/01/2022) INR 2.40(A) 0.9 - 1.1 HOME HEALT H POINT OF CARE TESTING Protime HOME HEALT H POINT OF CARE TESTING Blood (Blood, Venous) Narrative Resulting Agency Comment [employer] fax Historical Provider LAB BLOOD ORDERAB LES HOME HEALTH POINT OF CARE TESTING documented in this encounter Visit Diagnoses Diagnosis assisted current use of anticoagulant- Primary Other pulmonary embolism without acute cor pulmonale, unspecified chronicity (HCC) documented in this encounter Care Teams Applied Psychology Professor Relationship Specialty Start Date End Date Adarsh Carpenter MD [address] [place] [address] PCP - General 05/07/18 07/18/23 documented as of this encounter
--- OUTSIDE RECORDS SUMMARY | 2023-10-28 13:46 | XMS_ITS | Encounter Summary ---
Author Name Unknown Organization [facility] er Address [address] [place] [address] Care Team Providers Care Functional Manager Name Role Phone aHli Soriano APRN Primary Care Provider Reason for Visit * Reason Comments Med Refill Encounter Details Date Type Department Care Team (Late st Contact Info) Description 04/06/2019 Refill [place] [address] [place] [address] Adarsh Carpenter MD [address] [facility] [address] [place] [address] Other pulmonary embolism without acute cor pulmonale, unspecified chronicity (HCC) (Primary Dx) Social History Tobacco Use Types Packs/Day Years Used Date Smoking Tobacco: Never Smokeless Tobacco: Current Alcohol Use Standard Drinks/Week Comments No 0 (1 standard drink = 0.6 oz pur e alcohol) AUDIT-C Answer Date Recorded Frequency of Alcohol Consumption Never 07/16/2018 Average Number of Drinks Not on file 018 Frequency of Binge Drinking Not on file 07/01 PHQ-2 Answer Date Recorded PHQ-2 Score 0 01/29/2019 Sex and Gender Information Value Date Recorded Sex Assigned at Not on file Gender Identity Not on file Sexual Orientation Not on file documented as of this encounter Miscellaneous Notes * Telephone Encounter - Herlinda Gomez LPN - 04/08/2019 1:25 PM CDT Last Rx warfarin (COUMADIN) 5 MG tablet Instructions: M, w, f #100, 3 refills 04/19/18 Last annual exam 03/06/18 No future appointment scheduled Patient is due for well adult exam. Please contact to schedule. Results for DWAIN ERVIN ( ) as of 04/08/2019 13:31 Ref. Range 02/17/2019 09:17 02/28/2019 09:00 03/24/2019 09:14 Protime Latest Ref Range: 10.6 - 12.9 seconds 38.7 (H) 28.4 (H) 28.1 (H) INR Unknown 3.4 2.5 2.4 documented in this encounter Plan of Treatment Upcoming Encounters Date Type Department Care Team (Late st Contact Info) Description 10/31/2023 11:00 AM PHARMACY RETAIL SUPPORT SPECIALIST Office Visit [place] [address] [facility] [address] [place] [address] Hali Soriano, WAVE GUIDE ASSEMBLER [address] [place] [address] documented as of this encounter Visit Diagnoses Diagnosis Other pulmonary embolism without acute cor pulmonale, unspecified chronicity (HCC)- Primary documented in this encounter Additional Health Concerns Infection Onset Date Last Indicated Resolved Time MSSA 10/04/2018 10/04/2018 06/28/2022 8:27 AM CDT [facility] 06/19/2023 07/04/2023 07/17/2023 2:29 PM CDT [facility] 08/02/2023 08/02/2023 documented as of this encounter Care Teams Functional Manager Relationship Specialty Start Date End Date Hali Soriano, WAVE GUIDE ASSEMBLER [address] [place] [address] PCP - General Family Medicine 08/02/23 documented as of this encounter
--- OUTSIDE RECORDS SUMMARY | 2023-10-28 13:46 | XMS_ITS | Encounter Summary ---
Author Name Unknown Organization [facility] er Address [address] [place] [address] Care Team Providers Care Dust Mixer Name Role Phone Hali Soriano APRN Primary Care Provider Reason for Visit * Reason Onset Date Comments Med Refill 08/05/2018 Encounter Details Date Type Department Care Team (Late Contact Info) Description 08/05/[address] [address] Adarsh Carpenter MD [address] [facility] 20 [place] [address] Social History Tobacco Use Types Packs/Day Years Used Date Smoking Tobacco: Never Smokeless Tobacco: Current Alcohol Use Standard Drinks/Week Comments No 0 (1 standard drink = 0.6 oz pur e alcohol) AUDIT-C Answer Date Recorded Frequency of Alcohol Consumption Never 07/16/2018 Average Number of Drinks Not on file 018 Frequency of Binge Drinking Not on file 07/01 Sex and Gender Information Value Date Recorded Sex Assigned at Not on file Gender Identity Not on file Sexual Orientation Not on file documented as of this encounter Plan of Treatment Upcoming Encounters Date Type Department Care Team (Late Contact Info) Description 10/31/2023 11:00 AM RESOURCE MANAGEMENT SPECIALIST Office Visit [address] [address] Hali Soriano APRN [address] [place] [address] documented as of this encounter Visit Diagnoses Not on filedocumented in this encounter Additional Health Concerns Infection Onset Date Last Indicated Resolved Time MSSA 10/04/2018 10/04/2018 06/28/2022 8:27 AM CDT [facility] 06/19/2023 07/04/2023 07/17/2023 2:29 PM CDT [facility] 08/02/2023 08/02/2023 documented as of this encounter Care Teams Dust Mixer Relationship Specialty Start Date End Date Hali Soriano, VP STRATEGIC PARTNERSHIPS [address] [place] [address] PCP - General Family Medicine 08/02/23 documented as of this encounter
--- OUTSIDE RECORDS SUMMARY | 2023-10-28 13:46 | XMS_ITS | Encounter Summary ---
Author Name Unknown Organization [facility] er Address [address] [place] [address] Care Team Providers Care Graduate Rn Name Role Phone Adarsh Carpenter MD Primary Care Provider [phone] Reason for Visit * Reason Comments Med Refill Encounter Details Date Type Department Care Team (Late st Contact Info) Description 10/27/2022 Refill [place] [address] [place] [phone] Adarsh Carpenter MD [address] [place] [address] Mixed hyperlipidemia Social History Tobacco Use Types [...] any clubs o r organizations such as orthodox groups, unions, fraternal [...] Date Recorded PHQ-9 Total Score 1 04/24/2022 [facility] - Occupational [...] * Telephone Encounter - Lalitha Pathak - 12/22/2022 9:10 AM CDT Scheduled 3. hannah't w/Dr. Carpenter. * Telephone Encounter - Veronica Glez - 10/30/2022 9:53 AM CST Spoke with Pt's Nelia. She will look at Pt's schedule and call us back to schedule a med review with Dr Mauricio. HANDLER * Telephone Encounter - Audra Loo LPN - 10/30/2022 6:30 AM CST Patient is due for well adult appointment. PSR: Please contact patient to assist with scheduling. Upcoming appointment with provider: Visit date not found Last visit in provider department: 06/21/2022 Last visit requested medication was discussed: 11/03/2021 Last Rx: atorvastatin (Lipitor) 20 MG 11/08/2021 # 90, 3 refills Requested Prescriptions Pending Prescriptions Disp Refills ??? atorvastatin (LIPITOR) 20 MG tablet [Pharmacy Med Name: ATORVASTATIN CALCIUM 20MG TABS] 90 tablet 3 Sig: TAKE ONE TABLET BY MOUTH AT BEDTIME, START WITH ONE-HALF TABLET BY MOUTH FOR 8 DAYS THEN TAKE ONE TABLET NIGHTLY Labs: Component Latest Ref Rng & Units 11/03/2021 Cholesterol 0 - 199 mg/dL 215 (H) Triglycerides 0 - 149 mg/dL 124 HDL 40 - 250 mg/dL 38 (L) LDL Calculated 0 - 99 mg/dL 152 (H) Fasting? No Vitals: BP Readings from Last 2 Encounters: 06/21/22 102/70 05/29/22 115/72 HANDLER documented in this encounter Plan of Treatment Upcoming Encounters Date Type Department Care Team (Late st Contact Info) Description 10/31/2023 11:00 AM CAN HANDLER Office Visit [address] [address] Hali Soriano, DOWEL SANDER OPERATOR [address] [place] [address] documented as of this encounter Visit Diagnoses Diagnosis Mixed hyperlipidemia documented in this encounter Care Teams Graduate Rn Relationship Specialty Start Date End Date Adarsh Carpenter MD [address] [place] [phone] PCP - General 05/07/18 07/18/23 documented as of this encounter
--- OUTSIDE RECORDS SUMMARY | 2023-10-28 13:46 | XMS_ITS | Encounter Summary ---
Author Name Unknown Organization [facility] er Address [address] [place] [address] Care Team Providers Care Ironworker Apprentice Shop Name Role Phone Hali Soriano APRN Primary Care Provider Reason for Visit * Reason Onset Date Comments Med Refill Med Refill 11/08/2021 Encounter Details Date Type Department Care Team (Late st Contact Info) Description 10/28/2021 Refill [place] [address] [place] [phone] Adarsh Carpenter MD [address] [facility] 20 [place] [address] Other pulmonary embolism without acute cor pulmonale, unspecified chronicity (HCC) Social History Tobacco Use Types Packs/Day Years Used Date Smoking Tobacco: Never Smokeless Tobacco: Former Alcohol Use Standard Drinks/Week Comments No 0 (1 standard drink = 0.6 oz pur e alcohol) Humiliation, Afraid, Rape, and Kick questionnair e Answer Date Recorded Fear of Current or Ex-Partner No Emotionally Abused No 08/11/2019 Physically Abused No 08/11/2019 Sexually Abused No 08/11/2019 Social Connection and Isolation Panel [NHANES] A nswer Date Recorded Frequency of Communication with Friends and Fami ly Three times a week 08/11/2019 Frequency of Social Gatherin gs with Friends and Family Three times a week 08/11/2019 Attends Yazdanism Services Never 08/11 Active Member of Clubs or Organizations No 08/11/2019 Attends Club or Organization Meetings Never 08/11/2019 Marital Status 08/11/2019 AUDIT-C Answer Date Recorded Frequency of Alcohol Consumption Never 07/16/2018 Average Number of Drinks Not on file 018 Frequency of Binge Drinking Not on file 07/01 Overall Financial Resource Strain (CARDIA) Answe r Date Recorded Difficulty of Paying Living Expenses Not hard at all 05/07/2019 PHQ-2 Answer Date Recorded PHQ-9 Total Score 0 07/23/2020 [facility] of Occupat ional Health - Occupational Stress Questionnaire Answer Date Recorded Feeling of Stress To some extent 08/11/2019 Exercise Vital Sign Answer Date Recorde d Days of Exercise per Week 0 days 2018 Minutes of Exercise per Session 0 min 08/11/2019 Hunger Vital Sign Answer Date Recorded Worried About Running Out of Food in the Last Ye ar Never true 05/07/2019 Ran Out of Food in the Last Year Never true 05/07/2019 PRAPARE - Transportation Answer Date Re corded Lack of Transportation (Medical) No 05/07/2019 Lack of Transportation (Non-Medical) No 05/07/2019 Sex and Gender Information Value Date Recorded Sex Assigned at Not on file Gender Identity Not on file Sexual Orientation Not on file documented as of this encounter Miscellaneous Notes * Telephone Encounter - Madison Ewing MA - [...] 10/27/2021 INR 0.9 - 1.1 2.40 (A) R OPERATOR documented in this encounter Plan of Treatment Upcoming Encounters Date Type Department Care Team (Late st Contact Info) Description 10/31/2023 11:00 AM RADAR OPERATOR Office Visit [place] [address] [facility] 20 [place] [address] Hali Soriano, CHASER TAR [address] [place] [address] documented as of this encounter Visit Diagnoses Diagnosis Other pulmonary embolism without acute cor pulmonale, unspecified chronicity (HCC) documented in this encounter Additional Health Concerns Infection Onset Date Last Indicated Resolved Time MSSA 10/04/2018 10/04/2018 06/28/2022 8:27 AM CDT MSSA 06/19/2023 07/04/2023 07/17/2023 2:[address] [facility] 08/02/2023 08/02/2023 documented as of this encounter Care Teams Ironworker Apprentice Shop Relationship Specialty Start Date End Date Hali Soriano, CHASER TAR [address] [place] [address] PCP - General Family Medicine 08/02/23 documented as of this encounter
--- OUTSIDE RECORDS SUMMARY | 2023-10-28 13:46 | XMS_ITS | Encounter Summary ---
Author Name Unknown Organization [facility] er Address [address] [place] [address] Care Team Providers Care Doper Name Role Phone Hali Soriano APRN Primary Care Provider Encounter Details Date Type Department Care Team ([facility] st Contact Info) Description 08/07/2019 Telephone [place] [address] [place] [phone] Adarsh Carpenter MD [address] [place] [address] Social History Tobacco Use Types Packs/Day Years [...] Family Three times a week 08/11/2019 Attends Baptism Services Never 08/11 Active Member of Clubs [...] at all 05/07/2019 PHQ-2 Answer Date Recorded PHQ-2 Score 9 08/11/2019 [facility] [place] of Occupat ional Health - Occupational Stress [...] st Contact Info) Description 10/31/2023 11:00 AM DYE AND CHEMICAL COORDINATOR Office Visit [place] [address] [facility] 20 [place] [address] Hali Sorinao APRN [address] [place] [address] documented as of this encounter Visit Diagnoses Not on filedocumented in this encounter Additional Health Concerns Infection Onset Date Last Indicated Resolved Time MSSA 10/04/2018 10/04/2018 06/28/2022 8:27 AM CDT MSSA 06/19/2023 07/04/2023 07/17/2023 2:29 PM CDT MSSA 08/02/2023 08/02/2023 documented as of this encounter Care Teams Doper Relationship Specialty Start Date End Date Hali Soriano, CHIEF DEPUTY SHERIFF [address] [place] [address] PCP - General Family Medicine 08/02/23 documented as of this encounter
--- OUTSIDE RECORDS SUMMARY | 2023-10-28 13:46 | XMS_ITS | Encounter Summary ---
Author Name Unknown Organization [facility] er Address [address] [place] [address] Care Team Providers Care Solid Die Cutter Name Role Phone Hali Soriano APRN Primary Care Provider Encounter Details Date Type Department Care Team (Late st Contact Info) Description 09/02/2019 Telephone [place] [address] [place] [phone] Adarsh Carpenter MD [address] [place] [address] Social History Tobacco Use Types Packs/Day Years [...] Family Three times a week 08/11/2019 Attends Spiritism Services Never 08/11 Active Member of Clubs [...] Answer Date Recorded PHQ-2 Score 9 08/11/2019 [facility] of Occupat ional Health - Occupational Stress [...] st Contact Info) Description 10/31/2023 11:00 AM PIANO BUILDER Office Visit [place] [address] [facility] 20 [place] [address] Hali Soriano APRN [address] [place] [address] documented as of this encounter Visit Diagnoses Not on filedocumented in this encounter Additional Health Concerns Infection Onset Date Last Indicated Resolved Time MSSA 10/04/2018 10/04/2018 06/28/2022 8:27 AM CDT MSSA 06/19/2023 07/04/2023 07/17/2023 2:29 PM CDT MSSA 08/02/2023 08/02/2023 documented as of this encounter Care Teams Solid Die Cutter Relationship Specialty Start Date End Date Hali Soriano, LIVESTOCK HANDLER [address] [place] [address] PCP - General Family Medicine 08/02/23 documented as of this encounter
--- OUTSIDE RECORDS SUMMARY | 2023-10-28 13:46 | XMS_ITS | Encounter Summary ---
Author Name Unknown Organization [facility] er Address [address] [place] [address] Care Team Providers Care Licensed Marine Engineer Name Role Phone Hali Soriano APRN Primary Care Provider Encounter Details Date Type Department Care Team (Late st Contact Info) Description 07/28/2020 Telephone [place] [address] [place] [phone] Adarsh Carpenter MD [address] [place] [address] Social History Tobacco Use Types Packs/Day Years [...] Family Three times a week 08/11/2019 Attends Church Services Never 08/11 Active Member of Clubs [...] Date Recorded PHQ-9 Total Score 0 07/23/2020 [facility] of Occupat ional Health [...] st Contact Info) Description 10/31/2023 11:00 AM RESEARCH INSTRUCTOR Office Visit [place] [address] [facility] 20 [place] [address] Hali Soriano, SUPERVISOR MONEY ROOM [address] [place] [address] documented as of this encounter Visit Diagnoses Not on filedocumented in this encounter Additional Health Concerns Infection Onset Date Last Indicated Resolved Time MSSA 10/04/2018 10/04/2018 06/28/2022 8:27 AM CDT MSSA 06/19/2023 07/04/2023 07/17/2023 2:29 PM CDT MSSA 08/02/2023 08/02/2023 documented as of this encounter Care Teams Licensed Marine Engineer Relationship Specialty Start Date End Date Hali Soriano, SUPERVISOR MONEY ROOM [address] [place] [address] PCP - General Family Medicine 08/02/23 documented as of this encounter
--- OUTSIDE RECORDS SUMMARY | 2023-10-28 13:46 | XMS_ITS | Encounter Summary ---
Author Name Unknown Organization [facility] er Address [address] [place] [address] Care Team Providers Care Collections Director Name Role Phone Hali Soriano APRN Primary Care Provider Reason for Visit * Reason Onset Date Comments Med Refill 06/03/2020 Encounter Details Date Type Department Care Team (Late st Contact Info) Description 06/03/2020 Refill [place] [address] [place] [phone] Adarsh Carpenter MD 1705 [facility] 20 [place] [address] Other pulmonary embolism without acute cor pulmonale, [...] Family Three times a week 08/11/2019 Attends Islam Services Never 08/11 Active Member of Clubs [...] 05/07/2019 PHQ-2 Answer Date Recorded PHQ-2 Score 0 01/19/2020 [facility] [place] of Occupat ional Health - Occupational Stress [...] encounter Miscellaneous Notes * Telephone Encounter - Carmen Ríos MA - [...] st Contact Info) Description 10/31/2023 11:00 AM CLIP ON SUNGLASSES INSPECTOR Office Visit [place] [address] [facility] 20 [place] [address] Hali Soriano, COVER STITCH MACHINE OPERATOR [address] [place] [address] documented as of this encounter Visit Diagnoses Diagnosis Other pulmonary embolism without acute cor pulmonale, unspecified chronicity (HCC) documented in this encounter Additional Health Concerns Infection Onset Date Last Indicated Resolved Time MSSA 10/04/2018 10/04/2018 06/28/2022 8:27 AM CDT MSSA 06/19/2023 07/04/2023 07/17/2023 2:29 PM CDT MSSA 08/02/2023 08/02/2023 documented as of this encounter Care Teams Collections Director Relationship Specialty Start Date End Date Hali Soriano, COVER STITCH MACHINE OPERATOR [address] [place] [address] PCP - General Family Medicine 08/02/23 documented as of this encounter
[2023-10-28 13:56] LABS: Albumin* 4.3 g/dL (3.3-5.0); Chloride* 104 mmol/L (96-114); Sodium* 136 mmol/L (135-149)
[2023-10-28 13:57] LABS: Potassium* 4.6 mmol/L (3.6-5.1)
[2023-10-28 13:59] LABS: Alanine Aminotransferase* 25 U/L (4-50); Alkaline Phosphatase* 117 U/L (40-150); Anion Gap 11 mEq/L (7-15); Aspartate Amino Transferase* 22 U/L (12-35); Bilirubin Total* 1.6 mg/dL (0.1-1.5); Blood Urea Nitrogen* 14 mg/dL (7-30); Carbon Dioxide* 21 mmol/L (20-32); Est. Creatinine Clearance* 80.83; Estimated Glomerular Filt Rate 84 ml/min; INR 1.53 (0.91-1.10); Prothrombin Time 19.4 Seconds; Total Protein* 8.4 g/dL (6.0-8.3)
[2023-10-28 14:00] LABS: Calcium* 9.1 mg/dL (8.4-10.6); Glucose* 111 mg/dL (60-115)
[2023-10-28 14:07] LABS: NT Pro B Type NatriureticPept* 194 pg/mL
[2023-10-28 14:14] LABS: Procalcitonin* 0.15 ng/mL (<0.50)
[2023-10-28 14:26] LABS: Troponin I* < 0.01 ng/mL (0.01-0.04)
[2023-10-28] MEDS: 0.9 % SODIUM CHLORIDE 500 ML 500 ML IV (14:26)
[2023-10-28 14:54] LABS: PCR FLU A Negative PCR FLU A (Negative); PCR FLU B Negative PCR FLU B (Negative); PCR RSV Negative PCR RSV (Negative); SARS PCR* Negative SARS-CoV-2 (Negative)
--- NOTE | 2023-10-28 15:09 | PM.IMHP1 ---
Hospitalist- H&P: HPI History of Present Illness Date Seen: 10/28/23 Chief complaint: UTI Narrative: 10/16/23: CYSTOSCOPY, CYSTOLITHALOPAXY, RIGHT RETROGRADE PYELOGRAM, RIGHT URETEROSCOPY WITH LASER LITHOTRIPSY, RIGHT URETERAL STENT PLACEMENT Indication: 63 y.o. male with multiple sclerosis, neurogenic bladder (does straight catheterization), and history of kidney/bladder stones. He was found to have two bladder stones (~ 5 mm each) and a large 1.6 cm right renal stone. Given his multiple sclerosis, I recommended ureteroscopy instead of a PCNL to treat the right renal stone. Follow up on 10/24/23 for stent removal in the office. 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 Hans just had a cystoscopy, laser lithotripsy and ureteral stent placement on October 16. He had his stent removed on October 24. His symptoms started yesterday, October 27. He seemed more fatigued and less coherent. No fever. Today he had a small bump in his fever and remained listless and thus Nelia collected a urine presented to our ED. he has had multiple recurrent complicated UTIs. Two in the last 12 months. During a clinic encounter in August, Nelia pointed out a nodule/growth on his scalp. An x-ray that day showed osseous protuberance arising from the frontal bone in the midline measuring about 2.5 cm. ER COURSE: Chest x-ray which was clear, labs, IV fluids and 2 g of Rocephin were initiated in the ED. for completeness sake a head CT was completed secondary to the above concern noted in clinic of this growth on his his skull. The CT head, non con, showed Lentiform isoattenuation overlying the anteromedial left frontal lobe, favored to represent meningioma. MRI was recommended. Incidentally, as well, a large region of encephalomalacia was noted in the anterior inferior left frontal lobe. CODE STATUS: FULL CODE EMERGENCY CONTACT PLAN: Maida Hinds? ?Rel to Pat? [phone]?Cell Phone? I've updated the PFSH, medications and allergies in the Expanse tabs. INVESTIGATIONS: LABS/MICRO/ECG/IMAGING WBC is 20.5 with 89% neutrophils Normal hemoglobin, normal platelets INR is only 1.5, on warfarin Electrolytes are normal. Renal function is normal. Troponin is undetectable. Small bump in bilirubin at 1.6 CRP 7 Procalcitonin is reassuring at 0.15 Urine is turbid, 1+ protein, 1+ blood, positive nitrites, 3+ leukocyte esterase, greater than 100 white blood cells and many bacteria. Negative quad respiratory screen UC and BC pending Imaging to include chest x-ray, head CT reviewed. REVIEW OF SYSTEMS: 12-point ROS completed with patient and negative unless otherwise stated in HPI or below. PHYSICAL EXAM: CONSTITUTIONAL: alert. non labored breathing, making conversation. VITAL SIGNS: see record. HEENT: Normocephalic, atraumatic. PERRL, EOMI, conjunctivae pink, no scleral icterus. Ears and nose externally normal. Pharynx normal. Skull: small walnut size protuberance frontal midline - no edema,erythema. nontender. NECK: No JVD. No carotid bruit, no thyromegaly, no adenopathy. CHEST: Clear to auscultation bilaterally HEART: S1 and S2 normal. No harsh murmurs. MUSCULOSKELETAL: No gross joint deformity or swelling. NEURO: Cranial nerves intact. Grossly intact. No asymmetric findings. SKIN: No rashes, petechiae, concerning changes PSYCHIATRIC: Euthymic. ADMIT TO MEDSURG: FLOOR CARE DVT: continue warfarin GI: PO intake Time spent: Today I spent 75 minutes seeing the patient, discussing the patient with ER staff, reviewing Expanse and EPIC notes/diagnostics, discussing the care plan with our care time that includes social work, PT/OT, pharmacy, RT, fci and documenting my impressions and plan in the medical record. [facility] Medical History (Updated 10/28/23 @ 16:34 by Elvira Shabazz MD) Multiple sclerosis ?G35 - Multiple sclerosis (ICD-10) Neurogenic bladder ?N31.9 - Neuromuscular dysfunction of bladder, unspecified (ICD-10) Femur fracture ?S72.90XA - Unspecified fracture of unspecified femur, initial encounter for closed fracture (ICD-10) Nephrolithiasis ?N20.0 - Calculus of kidney (ICD-10) Anticoagulated on Coumadin ?Z79.01 - terminal make up operator (current) use of anticoagulants (ICD-10) History of pulmonary embolism ?Z86.711 - Personal history of pulmonary embolism (ICD-10) Hyperlipidemia ?E78.5 - Hyperlipidemia, unspecified (ICD-10) Surgical History (Updated 10/28/23 @ 15:18 by Elvira Shabazz MD) S/P ORIF (open reduction internal fixation) fracture ?Z98.890 - Other specified postprocedural states (ICD-10) ?Z87.81 - Personal history of (healed) traumatic fracture (ICD-10) History of genitourinary surgery ?Z98.890 - Other specified postprocedural states (ICD-10) History of tonsillectomy and adenoidectomy ?Z90.89 - Acquired absence of other organs (ICD-10) Family History Mother Colon cancer COPD (chronic obstructive pulmonary disease) Father Heart disease Social History Narrative: Lives with Maida in [place]; she is primary fire support man and would be medical decision maker if needed. Adult children. 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 Former smoker. What is your current living situation?: I presently have a place to live Problems where you live: no known problems Problems where you live details: N/A In the past 12 months, utilities in danger of being shut off: no In past 12 months, lack of transportation kept you from medical appts, meetings, work, or getting things needed for daily living: no In the past 12 mos, have been you worried that your food would run out before you had money to buy more?: never true In the past 12 mos, the food you bought just didn't last and you didn't have money to buy more?: never true Highest level of school completed/degree received: high school graduate Smoking Status: Never smoker Do you use any of these nicotine containing products: None Second hand tobacco smoke exposure: No How often do you have a drink containing alcohol: never How many standard drinks containing alcohol do you have on a typical day: 1 or 2 How often do you have six or more drinks on one occasion: Never AUDIT-C Alcohol total score: 0 Non-prescribed substance use: denies use Caffeine: No How often does anyone, including family, friends and others, physically hurt you: never How often does anyone, including family, friends and others, insult or talk down to you: never How often does anyone, including family, friends and others, threaten you with harm: never How often does anyone, including family, friends and others, scream or curse at you: never service: No Meds Home Medications and Allergies Home Medications Medication Instructions Recorded Confirmed Type atorvastatin 20 mg tablet 20 mg PO QHS 10/03/22 10/28/23 History warfarin 2 mg tablet 2 mg PO SUTUTHSA@10/03/22 10/28/23 History warfarin 4 mg tablet 4 mg PO MOWEFR@10/03/22 10/28/23 History olopatadine 0.2 % eye drops (Eye 1 drp ophthalmic (eye) DAILY 02/05/23 10/28/23 History Allergy Itch Relief) oxybutynin chloride 5 mg tablet 5 mg PO BID 02/05/23 10/28/23 History baclofen 10 mg tablet 10 - 20 mg PO BID 02/06/23 10/28/23 History sennosides 25 mg tablet 25 mg PO HS 10/28/23 10/28/23 History Allergies Allergy/AdvReac Type Severity Reaction Status Date / Time bee venom protein (honey bee) Allergy Verified 10/03/22 10:45 Exam Const: Vital Signs, click to edit/add: Vital Signs - 24 hr 10/28/23 12:44 10/28/23 13:20 10/28/23 13:59 Temperature 97.6 F Pulse Rate 94 Pulse Rate [Pulse Oximeter] 124 H Respiratory Rate 16 Blood Pressure Blood Pressure [Ri ght Upper Arm] 87/61 L Pulse Oximetry 93 95 95 Oxygen Delivery Me thod Room Air 10/28/23 14:00 10/28/23 14:01 10/28/23 14:10 Temperature Pulse Rate 94 92 Pulse Rate [Pulse Oximeter] Respiratory Rate Blood Pressure 119/89 Blood Pressure [Ri ght Upper Arm] Pulse Oximetry 94 94 94 Oxygen Delivery Me thod 10/28/23 14:20 10/28/23 14:30 10/28/23 14:32 Temperature Pulse Rate Pulse Rate [Pulse Oximeter] Respiratory Rate Blood Pressure Blood Pressure [Ri ght Upper Arm] Pulse Oximetry 94 95 94 Oxygen Delivery [facility] 10/28/23 14:33 Temperature Pulse Rate Pulse Rate [Pulse Oximeter] Respiratory Rate Blood Pressure Blood Pressure [[facility] Upper Arm] Pulse Oximetry 92 Oxygen Delivery [facility] Hospitalist - H&P: Result Labs Labs: Short CBC 10/28/23 Range/Units 13:21 WBC 20.51 H (4.50-11.00) K/uL Hgb 16.5 (13.5-17.5) gm/dL Hct 51.9 (37.0-53.0) % Plt Count 299 (140-440) K/uL BMP 10/28/23 13:21 Sodium 136 Potassium 4.6 Chloride 104 Carbon Dioxide 21 BUN 14 Creatinine 1.0 Glucose 111 Calcium 9.1 Cardiac Enzymes 10/28/23 Range/Units 13:21 Troponin I < 0.01 L (0.01-0.04) ng/mL Liver Function 10/28/23 Range/Units 13:21 Total Bilirubin 1.6 H (0.1-1.5) mg/dL AST 22 (12-35) U/L ALT 25 (4-50) U/L Alkaline Phosphatase 117 (40-150) U/L Albumin 4.3 (3.3-5.0) g/dL Urine 10/28/23 Range/Units 12:00 Urine Color Yellow (Yellow) Urine Appearance Turbid A (Clear) Urine pH 7.0 (5.0-8.5) Ur Specific [place] 1.020 (1.000-1.030) Urine Protein 1+ A (Negative) Urine Glucose (UA) Negative (Negative) Assessment and Plan Assessment and plan (1) Severe sepsis: Problem comment: -meets criteria with HR >90 an WBC >12K with a SBP less than 90 at presentation -genital urinary source + a recent procedure -complicated UTI. Fluids and antibiotics started in the ED -lactate normal. Blood pressure stable. -hemodynamically stable upon arrival to the floor Status: Acute (2) Complicated UTI (urinary tract infection): Problem comment: source. Recent procedure. Continue Rocephin 2 g Q 24 - cultures pending. Trend labs. Status: Acute (3) Urinary tract infection following procedure: Problem comment: October 16 = procedure. October 24 stent removed. Status: Acute (4) Meningioma: Problem comment: Will schedule MRI either as an inpatient or outpatient Status: Acute (5) Encephalomalacia on imaging study: Problem comment: MR to clarify -without previous imaging - etiology is unclear. thinks she has been told about this in the past and is likely related to previous trauma. Status: Acute (6) Multiple sclerosis: Problem comment: - Spastic quadriparesis, wheelchair dependent - neurogenic bladder - incontinent of stool - baclofen scheduled for muscle spasms Status: Acute (7) Neurogenic bladder: Problem comment: - , Anyi, catherizes Status: Acute (8) History of pulmonary embolism: Problem comment: On chronic warfarin therapy. Subtherapeutic upon admission Status: Acute (9) Anticoagulated on Coumadin: Problem comment: Entered pharmacy consult, daily INR. Status: Acute
[2023-10-28] MEDS: ACETAMINOPHEN 325 MG TABLET PO (16:54)
[2023-10-28] MEDS: 0.9 % SODIUM CHLORIDE 1000 ml 1,000 ML 125 ML IV (16:55)
--- NOTE | 2023-10-28 19:15 | PC.NURSE ---
End of shift-- Very pleasant and cooperative, alert and oriented patient was admitted to med-surg via cart. Alert and oriented, but at times difficult to understand. Speech is at times slow and slurred. VSS, though tachycardic with HR 120-130s, tachypneic with RR 24-28, and highest temp this shift 100.8F. Telemetry shows sinus tachycardia. Pt did flag sepsis protocol and MD was notified. Straight cath inserted for 200ml of light marlene urine. was at bedside this evening and appears loving and supportive. Report to ROBERT Ayala.
[2023-10-28] MEDS: BACLOFEN 10 MG TABLET PO (21:35)
[2023-10-28] MEDS: oxyBUTYnin chloride 5 MG TABLET PO (21:36)
[2023-10-28] MEDS: WARFARIN 5 MG TABLET PO (21:36)
--- NOTE | 2023-10-28 22:15 | PC.NURSE ---
Shift note: Increased temp to 100.6F, treated with Tylenol for patient comfort. HR in 120ies, MD was notified, instructions to continue to monitor, pt is resting comfortably, denies pain.
[2023-10-29] VITALS (7 sets, daily range): BP systolic 112–132; BP diastolic 71–92; PULSE 91–118; RESP 18–26; TEMP 36.7–38.8; O2SAT 91–93
[2023-10-29] MEDS: 0.9 % SODIUM CHLORIDE 1000 ml 1,000 ML 125 ML IV ×3 (00:46→20:21)
[2023-10-29 06:34] LABS: HCO3 VBG 22 mmol/L (21-28); PCO2 VBG 33 mmHG (40-50); PO2 VBG 64.1 mmHG (25-47); pH VBG 7.438 (7.32-7.43)
[2023-10-29 06:40] LABS: Hematocrit 43.5 % (37.0-53.0); Mean Corpuscular HGB Conc 32 gm/dL (32-36); Mean Corpuscular Hemoglobin 29 pg (26-34); Mean Corpuscular Volume 91 fL (80-100); Platelet Count* 258 K/uL (140-440); Red Blood Count 4.79 m/uL (4.30-5.90); White Blood Count* 18.11 K/uL (4.50-11.00)
[2023-10-29 06:49] LABS: Slide Review Reflex No
[2023-10-29 07:01] LABS: INR 1.91 (0.91-1.10); Prothrombin Time 23.2 Seconds
[2023-10-29 07:03] LABS: Chloride* 108 mmol/L (96-114); Potassium* 3.9 mmol/L (3.6-5.1); Sodium* 136 mmol/L (135-149)
[2023-10-29 07:06] LABS: Creatinine* 0.6 mg/dL (0.5-1.5); Est. Creatinine Clearance* 80.83; Estimated Glomerular Filt Rate 107 ml/min
[2023-10-29 07:07] LABS: Anion Gap 8 mEq/L (7-15); Blood Urea Nitrogen* 8 mg/dL (7-30); Calcium* 8.2 mg/dL (8.4-10.6); Carbon Dioxide* 20 mmol/L (20-32); Glucose* 106 mg/dL (60-115)
[2023-10-29 07:23] LABS: C Reactive Protein* 16.7 mg/dL (0.5-1.0)
[2023-10-29] MEDS: ACETAMINOPHEN 325 MG TABLET PO ×2 (07:52→14:05)
--- NOTE | 2023-10-29 07:55 | PC.NURSE ---
Pt is alert and oriented to self. Afebrile. Pt denies pain, chest pain, SOB, and N/V. Pt is noted to have tachypnea and tachycardia MD Shabazz aware continuing to monitor. Telemonitor on showing sinus tachycardia. Pt tested positive for blood cultures, lost charge card clerk updated, MD Mishra no change in orders.?Pt was turned and repositioned throughout night.?Pt slept intermittently throughout night. Night uneventful.??
--- NOTE | 2023-10-29 08:00 | CRLHL7_ITS ---
For Patients: As a result of the Century Cures Act, medical imaging exams and procedure reports are released immediately into your electronic medical record. You may view this report before your referring provider. If you have questions, please contact your health care provider. INDICATION: Altered mental status. History of multiple sclerosis. TECHNIQUE: Brain MRI with contrast. The following sequences were obtained: Sagittal T1 weighted sequence. DWI and ADC mapping sequences. Axial FLAIR and WM T2 weighted sequences. Susceptibility weighted or GRE sequence. T1 weighted post-contrast sequence(s). 15 cc of Dotarem gadolinium based contrast agent was used. COMPARISON: Head CT from 10/28/2023. FINDINGS: No evidence of acute ischemia. No evidence of acute or chronic intracranial blood products. Oval enhancing extra-axial mass along the left high frontal convexity with abutment of the falx and possible localized extension into the anterior aspect of the superior sagittal sinus. It measures 31 millimeters in AP dimension, 25 millimeters in TR dimension, and 16 millimeters in CC dimension. There is contiguous abnormal T1 hypointense bone marrow signal as well as contiguous subtle subgaleal thickening. The lesion exhibits internal susceptibility artifact, likely reflecting mineralization. There is subjacent sulcal/cortical hemosiderin staining. There is a large region of encephalomalacia within the left anterior inferior frontal lobe. Patchy and confluent FLAIR hyperintensities throughout the supratentorial white matter, accompanied by multiple locules of superimposed encephalomalacia, compatible with advanced chronic demyelination with likely superimposed chronic small vessel ischemic/lacunar change. There are also multiple oblong FLAIR hyperintensities within the bilateral cerebellar hemispheres, likely reflecting a combination of chronic demyelination and chronic cerebellar infarcts. There is patchy FLAIR hyperintensity within the brainstem, compatible with any combination of chronic demyelination and chronic microvascular ischemic change. No hydrocephalus or extra-axial collections. The pituitary gland, parasellar structures and optic chiasm are normal. All the major intracranial vascular structures demonstrate normal flow-related signal. The orbital contents are normal. Mild to moderate ethmoid air cell mucosal thickening with superimposed right ethmoidal polyp or retention cyst.. IMPRESSION: 1. 31 millimeter oblong extra-axial mass along the left high frontal convexity and falx with localized invasion of the superior sagittal sinus and contiguous bone marrow/subgaleal infiltration and/or reaction. Most likely a meningioma, although a dural-based metastasis could also have this appearance in the appropriate clinical setting. Adjacent chronic subarachnoid hemosiderin staining, which may be related. 2. No evidence of acute ischemia. 3. Left anterior frontal encephalomalacia/gliosis, likely sequela of prior infarct or trauma. 4. Advanced stigmata of chronic demyelination with some superimposed chronic small vessel ischemic/lacunar changes within the supratentorial/infratentorial brain. No enhancing white matter lesions to suggest active demyelination. Dictated by Efrain Dueñas MD @ 10/29/2023 10:45:57 AM (Electronically Signed)
--- NOTE | 2023-10-29 08:26 | P.IMPN_ITS ---
Progress Note: A&P Assessment and plan (1) Severe sepsis: Problem details: - meets criteria with HR >90 an WBC >12K with a SBP less than 90 at presentation, also febrile - Ceftriaxone broadened to Zosyn and Vancomycin on 10/29 - BCX + for GPR, Urine culture + for GNR (risk factors: recent Urological procedure, recent dental cleaning, abnormal head CT) - lactate normal - hemodynamically stable on admission, noted to have fever and tachycardia on 10/29 Status: Acute (2) Complicated UTI (urinary tract infection): Problem details: - source, risk given recent procedure - Rocephin broadened to Vanco and Zosyn on 10/29 given fever, tachycardia, + cultures Status: Acute (3) Urinary tract infection following procedure: Problem details: - for h/o nephrolithiasis. October 16 = procedure. October 24 stent removed Status: Acute (4) Meningioma: Problem details: - MRI recommended by radiologist, will obtain inpatient given patient's illness, + BCx, and recent dental visit, need to rule out infectious process Status: Acute (5) Encephalomalacia on imaging study: Problem details: - MRI to clarify given no previous imaging and unclear etiology. thinks she has been told about this in the past and is likely related to previous trauma Status: Acute (6) Multiple sclerosis: Problem details: - Spastic quadriparesis, wheelchair dependent - neurogenic bladder - incontinent of stool - baclofen scheduled for muscle spasms Status: Acute (7) Neurogenic bladder: Problem details: - Anyi catherizes at home Status: Acute (8) History of pulmonary embolism: Problem details: - on chronic warfarin therapy. Subtherapeutic INR upon admission, pharmacy consult placed to dose Warfarin during stay Status: Acute Plan - per above (broaden abx, await MRI results, TTE ordered) - Warfarin for ppx - Anyi updated at bedside, questions answered Subjective Date Seen: 10/29/23 Interval history: Dhruv was admitted to the hospital last night for fever and weakness. History includes MS, neurogenic bladder with recurrent UTIs, nephrolithiasis with recent Urological procedure/stent placement. This morning, patient has temperature of 101.8. He has a mild associated headache, no other concerns for hospitalist team. Blood culture + for GPR, Urine culture + for GNR. Ceftriaxone has been broadened to Vancomycin and Zosyn. Exam Narrative: Exam Narrative: GEN: Awake and alert, sitting comfortably in bed. Appears flushed but nontoxic, smiling and interactive HEENT: EOMIs bilaterally, no scleral icterus CV: Sinus tachycardia, soft systolic murmur without concerning features R: LCTA bilaterally, no wheezing, mildly decreased bibasilar breath sounds Ext: wwp, no concerning edema Skin: No concerning skin lesions or rashes on exposed skin Neuro: Baseline given comorbidities Psych: Appropriate Const: Vital Signs, click to edit/add: Vital Signs - 24 hr 10/28/23 12:44 10/28/23 13:20 10/28/23 13:59 Temperature 97.6 F Pulse Rate 94 Pulse Rate [Pulse Oximeter] 124 H Respiratory Rate 16 Blood Pressure Blood Pressure [Le ft Radial Artery] Blood Pressure [Ri ght Arm] Blood Pressure [Ri ght Upper Arm] 87/61 L Pulse Oximetry 93 95 95 [facility] 10/28/23 14:00 10/28/23 14:01 10/28/23 14:02 Temperature Pulse Rate 94 92 99 Pulse Rate [Pulse Oximeter] Respiratory Rate Blood Pressure 119/89 Blood Pressure [Le ft Radial Artery] Blood Pressure [Ri ght Arm] Blood Pressure [Ri ght Upper Arm] Pulse Oximetry 94 94 94 Oxygen Delivery Me od 10/28/23 14:10 10/28/23 14:20 10/28/23 14:30 Temperature Pulse Rate Pulse Rate [Pulse Oximeter] Respiratory Rate Blood Pressure Blood Pressure [Le ft Radial Artery] Blood Pressure [Ri ght Arm] Blood Pressure [Ri ght Upper Arm] Pulse Oximetry 94 94 95 Oxygen Delivery Me thod 10/28/23 14:32 10/28/23 14:33 10/28/23 14:40 Temperature Pulse Rate 105 H Pulse Rate [Pulse Oximeter] Respiratory Rate Blood Pressure Blood Pressure [Le ft Radial Artery] Blood Pressure [Ri ght Arm] Blood Pressure [Ri ght Upper Arm] Pulse Oximetry 94 92 93 Oxygen Delivery Me thod 10/28/23 14:50 10/28/23 15:00 10/28/23 15:02 Temperature Pulse Rate 104 H 105 H 105 H Pulse Rate [Pulse Oximeter] Respiratory Rate Blood Pressure 136/88 Blood Pressure [Le ft Radial Artery] Blood Pressure [Ri ght Arm] Blood Pressure [Ri ght Upper Arm] Pulse Oximetry 92 94 93 Oxygen Delivery Me thod 10/28/23 15:10 10/28/23 15:20 10/28/23 15:30 Temperature Pulse Rate 107 H 102 H 107 H Pulse Rate [Pulse Oximeter] Respiratory Rate Blood Pressure Blood Pressure [Le ft Radial Artery] Blood Pressure [Ri ght Arm] Blood Pressure [Ri ght Upper Arm] Pulse Oximetry 94 95 94 Oxygen Delivery Me thod 10/28/23 15:32 10/28/23 15:57 10/28/23 16:52 Temperature 98.8 F Pulse Rate 109 H Pulse Rate [Pulse Oximeter] 108 H Respiratory Rate 24 28 H Blood Pressure 142/86 H Blood Pressure [Le ft Radial Artery] Blood Pressure [Ri ght Arm] 124/99 H Blood Pressure [Ri ght Upper Arm] Pulse Oximetry 94 93 91 Oxygen Delivery Me thod Room Air Room Air 10/28/23 16:53 10/28/23 16:54 10/28/23 17:15 Temperature 99.0 F 99.0 F Pulse Rate 133 H Pulse Rate [Pulse Oximeter] 128 H Respiratory Rate 28 H Blood Pressure Blood Pressure [Le ft Radial Artery] Blood Pressure [Ri ght Arm] 148/98 H Blood Pressure [Ri ght Upper Arm] Pulse Oximetry 91 Oxygen Delivery Me thod Room Air 10/28/23 18:17 10/28/23 19:00 10/28/23 19:27 Temperature 100.8 F H 100.6 F H 100.6 F H Pulse Rate Pulse Rate [Pulse Oximeter] 125 H Respiratory Rate 22 Blood Pressure Blood Pressure [Le ft Radial Artery] 130/84 Blood Pressure [Ri ght Arm] Blood Pressure [Ri ght Upper Arm] Pulse Oximetry 92 Oxygen Delivery Me thod Room Air 10/28/23 19:56 10/28/23 21:08 10/28/23 23:04 Temperature 99.8 F H Pulse Rate 122 H Pulse Rate [Pulse Oximeter] Respiratory Rate 28 H Blood Pressure Blood Pressure [Le ft Radial Artery] Blood Pressure [Ri ght Arm] Blood Pressure [Ri ght Upper Arm] Pulse Oximetry 92 Oxygen Delivery Me thod Room Air 10/28/23 23:30 10/28/23 23:30 10/29/23 03:30 Temperature 97.6 F 98.2 F Pulse Rate Pulse Rate [Pulse Oximeter] 120 H 118 H Respiratory Rate 28 H 28 H 26 H Blood Pressure Blood Pressure [Le ft Radial Artery] Blood Pressure [Ri ght Arm] 131/83 120/81 Blood Pressure [Ri ght Upper Arm] Pulse Oximetry 91 91 Oxygen Delivery Me thod Room Air Room Air 10/29/23 07:58 Temperature 101.8 F H Pulse Rate Pulse Rate [Pulse Oximeter] 118 H Respiratory Rate 18 Blood Pressure Blood Pressure [Le ft Radial Artery] 131/82 Blood Pressure [Ri ght Arm] Blood Pressure [Ri ght Upper Arm] Pulse Oximetry 91 Oxygen Delivery Me thod Room Air Labs Labs: Laboratory Results - last 24 hr 10/28/23 10/28/23 10/29/23 12:00 13:21 05:50 WBC 20.51 H 18.11 H RBC 5.73 4.79 Hgb 16.5 14.0 Hct 51.9 43.5 MCV 91 91 MCH 29 29 MCHC 32 32 RDW Coeff of Nas 14.9 Plt Count 299 258 Neut % (Auto) 89.8 H Lymph % (Auto) 3.6 L [place] % (Auto) 6.4 Eos % (Auto) 0.0 Baso % (Auto) 0.0 Neut # (Auto) 18.40 H Lymph # (Auto) 0.70 L [place] # (Auto) 1.30 H Eos # (Auto) 0.00 Baso # (Auto) 0.00 Abs Immat Gran (auto) 0.00 Imm/Tot Granulo (auto) 0.2 INR 1.53 H 1.91 H VBG pH 7.438 H VBG pCO2 33 L VBG pO2 64.1 H VBG HCO3 22 Sodium 136 136 Potassium 4.6 3.9 Chloride 104 108 Carbon Dioxide 21 20 Anion Gap 11 8 BUN 14 8 Creatinine 1.0 0.6 Estimated Creat Clear 80.83 80.83 Estimated GFR 84 107 Glucose 111 106 Lactate 1.2 Calcium 9.1 8.2 L Total Bilirubin 1.6 H AST 22 ALT 25 Alkaline Phosphatase 117 Troponin I < 0.01 L C-Reactive Protein 7.0 H 16.7 H NT-Pro-B Natriuret Pep 194 Total Protein 8.4 H Albumin 4.3 Procalcitonin 0.15 Urine Color Yellow Urine Appearance Turbid A Urine pH 7.0 Ur Specific [place] 1.020 Urine Protein 1+ A Urine Glucose (UA) Negative Urine Ketones Negative Urine Blood 1+ A Urine Nitrite Positive A Urine Bilirubin Negative Urine Urobilinogen 0.2 Ur Leukocyte Esterase 3+ A Urine RBC 5-10 A Urine WBC >100 A Ur Squamous Epith Cells Few Urine Bacteria Many A SARS-CoV-2 (PCR) Negative SARS-CoV-2 Influenza Type A (PCR) Negative PCR FLU A Influenza Type B (PCR) Negative PCR FLU B RSV (PCR) Negative PCR RSV
[2023-10-29] MEDS: BACLOFEN 10 MG TABLET 20 MG PO (09:31)
[2023-10-29] MEDS: oxyBUTYnin chloride 5 MG TABLET PO ×2 (09:31→20:25)
[2023-10-29] MEDS: PIPERACILLIN/TAZOBACTAM 3.375 GM in 0.9 % SODIUM CHLORIDE Mini-bag 100 ML IVPB ×3 (09:36→20:21)
--- NOTE | 2023-10-29 15:14 | REH.PT ---
Orders for PT Eval & Treat received. Chart Reviewed. Pt seen this pm with spouse present. Pt is dependent on spouse to assist with all transfers at home. Has a lift and electric w/c. No PT needs at this time. D/C PT
--- NOTE | 2023-10-29 16:06 | PC.SOCIAL ---
Per therapy, pt's Maida is requesting information on adult daycare/respite care to get pt out of the home and social interaction. Phone call to pt's to discuss request. Pt's asked if [facility] has adult daycare/respite and this worker informed they do not. Resources have been limited since the Covid pandemic. Offered to complete senior linkage line referral to get resources. Pt's accepted. Suggested that pt's check with the [facility] to see if there are any opportunities for social interaction for pt. Discussed in home baby sitter care, but informed that workers would come into the home. Pt's will think about this option and will let this worker know if she would like a resource list for in home baby sitter care. Completed senior linkage line referral. Confirmation #[id number]. Social work will follow up as needed.
[2023-10-29] MEDS: WARFARIN 2 MG TABLET 4 MG PO (16:55)
--- NOTE | 2023-10-29 19:50 | PC.NURSE ---
shift note: pt had 101.8 this a.m. pt received tylenol with temp recheck 1 hr after med 100.8. Ice and cool cloths used to assist with helping to decrease temp. Pt cath x4 today. IV patent. LS clr,. tele in place reading s.tach. Pt denies pain. pt had 2 moderate soft BM's.
[2023-10-29] MEDS: BACLOFEN 10 MG TABLET PO (20:25)
[2023-10-29] MEDS: SODIUM CHLORIDE 0.9 % (FLUSH) 10 ML SYRINGE 5 ML IVF (20:26)
[2023-10-29] MEDS: ATORVASTATIN 10 MG TABLET 20 MG PO (20:26)
[2023-10-30] VITALS (7 sets, daily range): BP systolic 101–137; BP diastolic 67–96; PULSE 78–92; RESP 18; TEMP 36.3–37.1; O2SAT 92–96
[2023-10-30] MEDS: CARBOXYMETHYLCELLULOSE (REFRESH PLUS) TEARS 1 DROP EYE-BOTH (00:38)
[2023-10-30] MEDS: PIPERACILLIN/TAZOBACTAM 3.375 GM in 0.9 % SODIUM CHLORIDE Mini-bag 100 ML IVPB ×4 (02:21→20:05)
[2023-10-30 06:15] LABS: HCO3 VBG 24 mmol/L (21-28); Lactate* 0.6 mmol/L (0.5-1.9); PCO2 VBG 36 mmHG (40-50); PO2 VBG 62.7 mmHG (25-47); pH VBG 7.421 (7.32-7.43)
[2023-10-30 06:36] LABS: Basophils Percent Auto 0.1 % (0.0-3.0); Eosinophils Percent Auto 0.6 % (0.0-7.0); Hematocrit 41.7 % (37.0-53.0); Hemoglobin* 13.6 gm/dL (13.5-17.5); Immature Granulocytes Pct Auto 0.2 %; Lymphocytes Percent Auto 8.3 % (20-44); Mean Corpuscular HGB Conc 33 gm/dL (32-36); Mean Corpuscular Hemoglobin 30 pg (26-34); Mean Corpuscular Volume 91 fL (80-100); Monocytes Percent Auto 6.6 % (0.0-11.0); Neutrophils Percent Auto 84.2 % (42.0-72.0); Platelet Count* 225 K/uL (140-440); RDW Coefficient of Variation % 15.6 % (11.5-15.5); White Blood Count* 11.99 K/uL (4.50-11.00)
[2023-10-30 06:40] LABS: Slide Review Reflex No
--- NOTE | 2023-10-30 06:47 | PC.NURSE ---
SHIFT NOTE 23-07: Pt A&O. T-max 99.5. Denies pain, CP, N/V, and SOB. Pt turned and repositioned with a 2 assist. incontinent of stool x2, abdullahi care provided. Straight cath x2, pt tolerated well.
[2023-10-30 06:50] LABS: Albumin* 3.1 g/dL (3.3-5.0); Chloride* 112 mmol/L (96-114); Sodium* 140 mmol/L (135-149)
[2023-10-30 06:51] LABS: Potassium* 3.7 mmol/L (3.6-5.1)
[2023-10-30 06:53] LABS: Alanine Aminotransferase* 16 U/L (4-50); Alkaline Phosphatase* 83 U/L (40-150); Anion Gap 5 mEq/L (7-15); Aspartate Amino Transferase* 19 U/L (12-35); Bilirubin Total* 0.9 mg/dL (0.1-1.5); Blood Urea Nitrogen* 6 mg/dL (7-30); Carbon Dioxide* 23 mmol/L (20-32); Creatinine* 0.6 mg/dL (0.5-1.5); Est. Creatinine Clearance* 80.83; Estimated Glomerular Filt Rate 107 ml/min; Total Protein* 6.6 g/dL (6.0-8.3)
[2023-10-30 06:54] LABS: Calcium* 8.1 mg/dL (8.4-10.6); Glucose* 97 mg/dL (60-115)
[2023-10-30 07:23] LABS: INR 2.23 (0.91-1.10); Prothrombin Time 26.4 Seconds
[2023-10-30 07:36] LABS: C Reactive Protein* 13.4 mg/dL (0.5-1.0)
--- NOTE | 2023-10-30 09:46 | PM.IMPN1 ---
Progress Note: A&P Assessment and plan (1) Severe sepsis: Problem details: - meets criteria with HR >90 and WBC >12K with a SBP less than 90 at presentation, in addition to fever - Ceftriaxone broadened to Zosyn and Vancomycin on 10/29, Vancomycin d/c'd on 10/30 - BCX + for GPR (in one bottle, f/u cultures NGTD), Urine culture + for pansensitive E Coli - lactate normal - reassuring brain MRI (no infectious process), reassuring TTE on 10/29: hyperdynamic SFx with EF 70-75%, normal global systolic RV fxn, no valvular disease Status: Acute (2) Complicated UTI (urinary tract infection): Problem details: - source, risk given recent procedure - Rocephin broadened to Vanco and Zosyn on 10/29 given fever, tachycardia, + cultures (Vancomycin d/c'd on 10/30) Status: Acute (3) Urinary tract infection following procedure: Problem details: - for h/o nephrolithiasis. October 16 = procedure. October 24 stent removed Status: Acute (4) Meningioma: Problem details: - MRI recommended by radiologist, will obtain inpatient given patient's illness, + BCx, and recent dental visit, need to rule out infectious process - findings reassuring on 10/29 MRI Status: Acute (5) Encephalomalacia on imaging study: Problem details: - MRI to clarify given no previous imaging and unclear etiology. thinks she has been told about this in the past and is likely related to previous trauma Status: Acute (6) Multiple sclerosis: Problem details: - Spastic quadriparesis, wheelchair dependent - neurogenic bladder - incontinent of stool - baclofen scheduled for muscle spasms Status: Acute (7) Neurogenic bladder: Problem details: - Anyi catherizes at home Status: Acute (8) History of pulmonary embolism: Problem details: - on chronic warfarin therapy. Subtherapeutic INR upon admission, pharmacy consult placed to dose Warfarin during stay Status: Acute Plan - per above - Warfarin for ppx - possibly home as early as tomorrow if remains hemodynamically stable - Anyi updated at bedside, questions answered Subjective Date Seen: 10/30/23 Interval history: Dhruv was admitted to the hospital on 10/28 for fever and weakness. History includes MS, neurogenic bladder with recurrent UTIs, nephrolithiasis with recent Urological procedure/stent placement. He has not had a fever since yesterday morning, and is feeling better. WBC has improved, VS stable/reassuring. One blood culture from admission + for Bacillus species, subsequent blood cultures negative. Urine culture + for pansensitive E Coli. TTE obtained 10/29 and reassuring. Exam Narrative: Exam Narrative: GEN: Alert and oriented, sitting up in bedside chair and eating breakfast, appears much brighter today HEENT: EOMIs bilaterally, no scleral icterus CV: RRR, No concerning murmurs R: LCTA bilaterally without concerning wheezing Ext: wwp, no concerning edema Skin: No concerning skin lesions or rashes on exposed skin Neuro: Baseline for comorbidities Psych: Appropriate Const: Vital Signs, click to edit/add: Vital Signs - 24 hr 10/29/23 11:00 10/29/23 11:00 10/29/23 15:00 Temperature 100.8 F H 99.5 F 98.1 F Pulse Rate Pulse Rate [Pulse Oximeter] 106 H 102 H Respiratory Rate 20 20 Blood Pressure [Le ft Radial Artery] 124/78 112/71 Blood Pressure [Ri ght Arm] Pulse Oximetry 93 92 Oxygen Delivery Me thod Room Air Room Air 10/29/23 15:00 10/29/23 15:00 10/29/23 20:00 Temperature 99.4 F Pulse Rate 106 H Pulse Rate [Pulse Oximeter] 102 H 91 Respiratory Rate 20 20 Blood Pressure [Le ft Radial Artery] Blood Pressure [Ri ght Arm] 132/84 Pulse Oximetry 92 Oxygen Delivery Me thod Room Air 10/29/23 23:00 10/29/23 23:00 10/29/23 23:00 Temperature 99.5 F Pulse Rate 95 Pulse Rate [Pulse Oximeter] 94 94 Respiratory Rate 18 18 Blood Pressure [Le ft Radial Artery] Blood Pressure [Ri ght Arm] 125/92 H Pulse Oximetry 93 Oxygen Delivery Me thod Room Air 10/30/23 02:30 Temperature 98.7 F Pulse Rate Pulse Rate [Pulse Oximeter] 88 Respiratory Rate 18 Blood Pressure [Le ft Radial Artery] Blood Pressure [Ri ght Arm] 134/90 H Pulse Oximetry 96 Oxygen Delivery Me thod Room Air Labs Labs: Laboratory Results - last 24 hr 10/30/23 05:49 WBC 11.99 H RBC 4.60 Hgb 13.6 Hct 41.7 MCV 91 MCH 30 MCHC 33 RDW Coeff of Nas 15.6 H Plt Count 225 Neut % (Auto) 84.2 H Lymph % (Auto) 8.3 L [place] % (Auto) 6.6 Eos % (Auto) 0.6 Baso % (Auto) 0.1 Neut # (Auto) 10.10 H Lymph # (Auto) 1.00 [place] # (Auto) 0.80 Eos # (Auto) 0.10 Baso # (Auto) 0.00 Abs Immat Gran (auto) 0.00 Imm/Tot Granulo (auto) 0.2 INR 2.23 H VBG pH 7.421 VBG pCO2 36 L VBG pO2 62.7 H VBG HCO3 24 Sodium 140 Potassium 3.7 Chloride 112 Carbon Dioxide 23 Anion Gap 5 L BUN 6 L Creatinine 0.6 Estimated Creat Clear 80.83 Estimated GFR 107 Glucose 97 Lactate 0.6 Calcium 8.1 L Total Bilirubin 0.9 AST 19 ALT 16 Alkaline Phosphatase 83 C-Reactive Protein 13.4 H Total Protein 6.6 Albumin 3.1 L
[2023-10-30] MEDS: BACLOFEN 10 MG TABLET 20 MG PO (09:47)
[2023-10-30] MEDS: oxyBUTYnin chloride 5 MG TABLET PO ×2 (09:48→20:05)
[2023-10-30] MEDS: ACETAMINOPHEN 325 MG TABLET PO (09:48)
[2023-10-30] MEDS: WARFARIN 2 MG TABLET PO (17:02)
--- NOTE | 2023-10-30 19:43 | PC.NURSE ---
shift note: vss stable. pt afeb. ls clr. IV patent.
[2023-10-30] MEDS: ATORVASTATIN 10 MG TABLET 20 MG PO (20:05)
[2023-10-30] MEDS: BACLOFEN 10 MG TABLET PO (20:05)
[2023-10-30] MEDS: NYSTATIN CREAM 30 GM 1 APPLIC TOPICAL (20:06)
[2023-10-30] MEDS: SODIUM CHLORIDE 0.9 % (FLUSH) 10 ML SYRINGE 5 ML IVF (20:06)
[2023-10-31] MEDS: PIPERACILLIN/TAZOBACTAM 3.375 GM in 0.9 % SODIUM CHLORIDE Mini-bag 100 ML IVPB ×2 (02:15→08:30)
[2023-10-31 03:00] VITALS: BP 139/95; PULSE 86; RESP 18; TEMP 36.6; O2SAT 94
--- NOTE | 2023-10-31 06:44 | PC.NURSE ---
SHIFT NOTE: Pt pleasant. Afebrile. Incontinent of urine x3, straight cath done x3. Pt denies pain, SOB, CP, and N/V. Repositioned with a 2A. Pt hopeful to d/c home today.
[2023-10-31 07:06] LABS: HCO3 VBG 26 mmol/L (21-28); PCO2 VBG 35 mmHG (40-50); pH VBG 7.476 (7.32-7.43)
[2023-10-31 07:18] LABS: Basophils Absolute Auto 0.01 K/uL (0.00-0.30); Basophils Percent Auto 0.1 % (0.0-3.0); Eosinophils Percent Auto 1.3 % (0.0-7.0); Hemoglobin* 13.6 gm/dL (13.5-17.5); Immature Granulocytes Abs Auto 0.02 K/uL (0.00-0.30); Immature Granulocytes Pct Auto 0.3 %; Lymphocytes Percent Auto 13.8 % (20-44); Mean Corpuscular HGB Conc 32 gm/dL (32-36); Mean Corpuscular Hemoglobin 29 pg (26-34); Mean Corpuscular Volume 89 fL (80-100); Monocytes Percent Auto 8.2 % (0.0-11.0); Neutrophils Percent Auto 76.3 % (42.0-72.0); Platelet Count* 254 K/uL (140-440); RDW Coefficient of Variation % 15.2 % (11.5-15.5); White Blood Count* 7.52 K/uL (4.50-11.00)
[2023-10-31 07:22] LABS: Chloride* 110 mmol/L (96-114); Slide Review Reflex No; Sodium* 140 mmol/L (135-149)
[2023-10-31 07:25] LABS: Creatinine* 0.6 mg/dL (0.5-1.5); Est. Creatinine Clearance* 80.83; Estimated Glomerular Filt Rate 107 ml/min; Potassium* 3.8 mmol/L (3.6-5.1)
[2023-10-31 07:26] LABS: Anion Gap 6 mEq/L (7-15); Blood Urea Nitrogen* 5 mg/dL (7-30); Calcium* 8.4 mg/dL (8.4-10.6); Carbon Dioxide* 24 mmol/L (20-32); Glucose* 95 mg/dL (60-115)
[2023-10-31 07:28] LABS: C Reactive Protein* 5.3 mg/dL (0.5-1.0)
[2023-10-31 07:35] LABS: INR 2.43 (0.91-1.10); Prothrombin Time 28.2 Seconds
[2023-10-31 08:20] VITALS: BP 139/95; PULSE 80; PULSE 86; RESP 18; TEMP 36.6; O2SAT 94
[2023-10-31] MEDS: BACLOFEN 10 MG TABLET 20 MG PO (08:41)
[2023-10-31] MEDS: oxyBUTYnin chloride 5 MG TABLET PO (08:42)
[2023-10-31] MEDS: CARBOXYMETHYLCELLULOSE (REFRESH PLUS) TEARS 1 DROP EYE-BOTH (08:42)
[2023-10-31] MEDS: NYSTATIN CREAM 30 GM 1 APPLIC TOPICAL (08:43)
[2023-10-31] MEDS: SODIUM CHLORIDE 0.9 % (FLUSH) 10 ML SYRINGE 5 ML IVF (08:45)
--- NOTE | 2023-10-31 11:55 | PC.NURSE ---
Pt had no complaints, denied pain, afebrile. IV DC'd, cath tip intact. Education on DC instructions given to pt and , all questions answered. Follow up appointment and need to follow up with [facility] understood and phone number given in paperwork. DC to home with @[phone].
--- NOTE | 2023-10-31 15:30 | PM.DS1 ---
DS: Providers Provider Date Seen: 10/31/23 Date of admission: 10/28/23 15:50 Primary care physician: Hang Carpenter MD Admitting Clinician: Elvira Shabazz MD Consults: OT, PT, SW Attending Physician on discharge: Aisha Merrill MD Date of Discharge: 10/31/23 DS: Diagnosis Discharge Diagnosis (1) Severe sepsis: Status: Acute Problem details: - meets criteria with HR >90, WBC >12K, SBP< 90, fever upon presentation - Ceftriaxone broadened to Zosyn and Vancomycin on 10/29, Vancomycin d/c'd on 10/30 - BCX + for GPR (Bacillus in one bottle with concern for contamination, f/u cultures NGTD), Urine culture + for pansensitive E Coli - lactate normal during stay - reassuring brain MRI (no infectious process), reassuring TTE on 10/29: hyperdynamic SFx with EF 70-75%, normal global systolic RV fxn, no valvular disease (2) Complicated UTI (urinary tract infection): Status: Acute Problem details: - source, risk given recent procedure - Rocephin broadened to Vanco and Zosyn on 10/29 given fever, tachycardia, + cultures (Vancomycin d/c'd on 10/30) - discharge home on Amoxicillin (3) Meningioma: Status: Acute Problem details: - MRI recommended by radiologist, will obtain inpatient given patient's illness, + BCx, and recent dental visit, need to rule out infectious process - findings reassuring on 10/29 MRI, outpatient Neurosurgery f/u recommended (4) Urinary tract infection following procedure: Status: Acute Problem details: - for h/o nephrolithiasis. October 16 = procedure. October 24 stent removed (5) Neurogenic bladder: Status: Acute Problem details: - Anyi catherizes at home (6) History of pulmonary embolism: Status: Acute Problem details: - on chronic warfarin therapy. Subtherapeutic INR upon admission, pharmacy consult placed to dose Warfarin during stay (7) Multiple sclerosis: Status: Acute Problem details: - Spastic quadriparesis, wheelchair dependent - neurogenic bladder - incontinent of stool - baclofen scheduled for muscle spasms DS: Summary Hospital Course Hospital Course: Dhruv Hinds is a very pleasant 63-year-old male who presented to the hospital with fever and weakness, initial presentation consistent with sepsis secondary to UTI. Urine culture ultimately grew out pansensitive E coli. 1/2 of initial blood cultures positive for Bacillus, likely contaminant given negative repeat blood cultures. He was treated with IV Zosyn. Patient improved with resolution of leukocytosis, fever, and tachycardia. Comorbidities noted above with details, all remained stable during stay. Patient will follow-up with PCP to discuss neurosurgery follow-up given new diagnosis of meningioma on MRI. Dhruv was back to baseline and ready for discharge home with on 10/31. Status at Discharge Functional status at discharge: wheelchair bound Overall status at discharge: patient is back to baseline Time Spent with Patient Time attestation: Total time spent providing and/or coordinating discharge services: Time spent: Greater than 30 minutes Specific discharge activities: Medication reconciliation, discharge planning f/u Exam Narrative: Exam Narrative: GEN: Alert and oriented, sitting comfortably in bed HEENT: EOMIs bilaterally, no scleral icterus CV: RRR, No concerning murmurs R: LCTA bilaterally without concerning wheezing, air movement adequate Ext: wwp, no concerning edema Skin: No concerning skin lesions or rashes on exposed skin Neuro: Baseline per [place] Psych: Appropriate Const: Vital Signs, click to edit/add: Vital Signs - 24 hr 10/30/23 20:00 10/30/23 23:00 10/30/23 23:00 Temperature 97.7 F Pulse Rate 85 Pulse Rate [Pulse Oximeter] 78 78 Respiratory Rate 18 18 Blood Pressure [Le ft Radial Artery] 124/94 H Pulse Oximetry 93 Oxygen Delivery Me thod Room Air 10/30/23 23:00 10/31/23 03:00 10/31/23 08:20 Temperature 97.8 F 97.9 F Pulse Rate 80 Pulse Rate [Pulse Oximeter] 78 86 Respiratory Rate 18 18 Blood Pressure [Le ft Radial Artery] 134/90 H 139/95 H Pulse Oximetry 96 94 Oxygen Delivery Me thod Room Air Room Air 10/31/23 08:20 10/31/23 08:20 Temperature 97.9 F Pulse Rate Pulse Rate [Pulse Oximeter] 86 86 Respiratory Rate 18 18 Blood Pressure [Le ft Radial Artery] 139/95 H Pulse Oximetry [address] thod Room Air DS: Data Data Completed and Pending Labs on day of discharge: Labs from last 24 hours 10/31/23 05:53 WBC 7.52 RBC 4.70 Hgb 13.6 Hct 42.0 MCV 89 MCH 29 MCHC 32 RDW Coeff of Nas 15.2 Plt Count 254 Neut % (Auto) 76.3 H Lymph % (Auto) 13.8 L [place] % (Auto) 8.2 Eos % (Auto) 1.3 Baso % (Auto) 0.1 Neut # (Auto) 5.70 Lymph # (Auto) 1.00 [place] # (Auto) 0.60 Eos # (Auto) 0.10 Baso # (Auto) 0.01 Abs Immat Gran (auto) 0.02 Imm/Tot Granulo (auto) 0.3 INR 2.43 H VBG pH 7.476 H VBG pCO2 35 L VBG pO2 120.0 H VBG HCO3 26 Sodium 140 Potassium 3.8 Chloride 110 Carbon Dioxide 24 Anion Gap 6 L BUN 5 L Creatinine 0.6 Estimated Creat Clear 80.83 Estimated GFR 107 Glucose 95 Calcium 8.4 C-Reactive Protein 5.3 H Preliminary micro results at discharge 10/28/23 13:30 Blood Culture - Preliminary Blood NO GROWTH AFTER 72 HOURS 10/30/23 05:49 Blood Culture - Preliminary Blood NO GROWTH AFTER 24 HOURS Discharge Plan Discharge Disposition: Home, Self-Care Date of Admission: 10/28/23 15:50 Attending Provider on Discharge: Aisha Merrill Primary Care Provider: Hang Carpenter Condition: Improved Anticipated Discharge Date/Time: 10/31/23 09:46 Discharge Medications: New amoxicillin 875 mg tablet 875 mg PO Q12H Qty: 10 0RF Continued atorvastatin 20 mg tablet 20 mg PO QHS warfarin 2 mg tablet 2 mg PO SUTUTHSA@21 warfarin 4 mg tablet 4 mg PO MOWEFR@21 oxybutynin chloride 5 mg tablet 5 mg PO BID baclofen 10 mg tablet 10 - 20 mg PO BID Rx Instructions: TAKES 20 MG IN AM AND 10 MG AT BEDTIME sennosides 25 mg tablet 25 mg PO HS Naphcon-A 0.025-0.3 % drops 1 drp ophthalmic (eye) DAILY Discharge Orders: Discharge Order (Routine); Ordered 10/31/23 Ordered By: Aisha Merrill Patient Education: Amoxicillin/Clavulanate Potassium (By mouth), Urinary Tract Infection in Men (DC), Sepsis (DC) Additional Instructions: 5 more days of antibiotics sent to [facility]. We'll make an appt with Dr. Donovan for followup. For the meningioma: Dr. Jevon Trejo is a Neurosurgeon through [facility] His clinic # is [phone]. Make an appointment as soon as able for plan of care and next steps. Information has been faxed to the clinic. They should be calling you with an appointment time. Activity Level: No Restrictions Activity Detail: per previous Discharge Diet: Regular Follow Up Appointments: Wade Donovan MD [Referring] - 11/07/23 10:30 am ([facility] in [place] for follow-up appt.) Hang Carpenter MD [Primary Care Provider] - None ([facility] in [place] for follow-up appt.) Forms: [email or web address] Info Instructions
--- OUTSIDE RECORDS SUMMARY | 2023-11-01 12:17 | XMS_ITS | Data Portability ---
Author Name Unknown Address [address] [place] [address] Phone [phone] Organization [facility], [facility] Address [address] [place] [address] Care Team Providers Care Sailing Instructor Name Role Phone NATY SHARI Primary Care Provider Assessment No assessment recorded. Plan of Treatment Reminders Order Date Submit Date Provider Last Modified By Organization Details Last Modified Time Details Appointments ESTABLISH ED VIDEO VISIT 20 2023 01:40P Meir Shoemaker PA-C Not available Not available Not available ESTABLISH ED 15 2023 01:45P Meir Pate MD Not available Not available Not available Lab culture, urine 2023 024 [facility], [address], [place], [address], 10/07/2023 11:40:13 Referral None recorded. Procedures None recorded. Surgeries None recorded. Imaging US, renal - kidney stones, please do 1 month from 10/24/23, thanks. [address] [facility], [address] [place], [address], 10/24/2023 15:45:25 CT, abdomen + pelvis, w/o contrast - kidney stones, please contact pt to schedule . thanks 2022 023 [facility], [address] [place], [address], 08/22/2023 12:42:58 US, renal - right renal cyst please contact pt to schedule . thanks 2022 023 [facility], [address] [place], [address], 08/21/2023 12:15:37 Medication Orders None recorded. Patient TargetsNo targets recorded. Patient Instructions Encounter Date Encounter Id Patient Instructions Last Modified By Organization Details Last Modified Time 10/24/2023 [id number] Right kidney stone/bladder stones: Right ureteral stent was removed today. Renal U/S in 1 month. Stone prevention 6 weeks. Should drink enough fluids to keep the urine colorless. Stones = 80% calcium oxalate, 20% calcium phosphate (apatite). Not available 10/24/2023 15:28:27 08/15/2023 [id number] ureteroscopy: wh at to expect at home [...] microb iology result s abnormal Not Available [facility] [address], [place], [address], 10/07/2023 11:40:12 08/21/20 23 08/21/2023 US, renal No observ ation record ed. [facility] [address], [place], [address], 08/22/2023 09:39:35 08/22/20 23 08/21/2023 CT, abdom en + pelvi s, w/o contr ast No observ ation record ed. [facility] [address], [place], [address], 08/27/2023 12:46:25 10/16/19 24 10/16/2023 XR, pyelo gram No observ ation record ed. [facility] [address] [place], [address], 10/16/2023 15:04:11 Result Notes None recorded. Problems Name Status Onset Date Resolution Date Notes Provider Name and Address Organization Details Recorded Time Screening for malignant neoplasm of prostate Active 019 Z12.5 : Screening for malignant neoplasm of prostate Not Available [facility] 0 23:47:30 Clinical finding Active 018 N20.0 : Staghorn calculus Not Available [facility] 0 23:47:30 Neurogenic dysfunction of the urinary bladder Active 018 N31.9 : Neurogenic dysfunction of the urinary bladder Not Available [facility] 0 23:47:30 History of urinary stone Active 018 Z87.442 : History of urinary stone Not Available [facility] 0 23:47:30 Cyst of kidney Active 023 Osito Pate MD [address] [place] [address],[address], [address], [facility] 3 11:17:54 Calculus of kidney and ureter Active 023 Osito Pate MD [address] [place] [address],[address], [address], [facility] 3 11:17:55 Urinary bladder stone Active 023 Osito Pate MD [address] [place] [address],[address] [place] [address], [phone], [facility] 3 11:19:12 Neurogenic bladder Active 023 Osito Pate MD [address] [place] [address],[address], [address], [facility] 3 11:19:28 Retention of urine Active 023 Osito Pate MD [address] [place] [address],[address], [address], [facility] 3 11:19:33 Kidney stone Active 024 Osito Pate MD [address] [place] [address],[address], [address], [facility] 4 11:00:19 Problem Notes None recorded. Procedures Surgical History Date Name Laterality Status Provider Name and Address Organization Details Recorded Time 10/24/19 24 Cystoscopy with foreign body/stent removal completed Osito Pate MD [address] [place] [address],[address], [address], [facility] 10/23/2023 10:59:43 10/05/19 24 Urine Culture completed Jonna saldivar [facility] 10/05/2023 16:23:47 08/01/20 19 Cysto/uretero w/lithotripsy completed Not Available [facility] 03/11/2020 14:45:31 03/28/20 18 Cystoscopy and treatment completed Not Available [facility] 03/11/2020 14:45:30 03/04/20 18 Remove bladder stone completed Not Available [facility] 03/11/2020 14:45:31 10/01/19 18 Colonoscopy thru stoma spx completed Not Available [facility] 03/11/2020 14:45:31 Imaging Results Imaging Date Name Status LastModified by Organiz ation Details LastModified Time 08/21/2023 US, renal completed [facility] [address], [place], [address], 08/22/2023 09:39:35 08/21/2023 CT, abdomen + pelvis, w/o contrast completed [facility] [address], [place], [address], 08/27/2023 12:46:25 10/16/2023 XR, pyelogram completed [address] [place], [address], 10/16/2023 15:04:11 Procedure Notes None recorded. Medical Equipment None Reported. Allergies Allergen ID Allergen Name Allergen Category Reaction Reaction Severity Criticality Documentation Date Start Date Code Code System Note Provider Name and Address Organization Details Recorded Time 377715 Medicinal product containin g penicilli n and acting as antibacte rial agent (product) medicatio n Not available Not available unabletoasse ss 10/08/2023 20183 05 SNOMED sympt oms or sever ity unkno wn. Updat ed per call with [facility]. This aller gy was on file with them since 2014. FRANSISCO Trevino - [facility] 4 10:37:47 Medications Name Sig Start [...] Updated DateTime 08/15/2023 182.88 cm 25.8 kg/m2 78075.55 g Laura Santos [facility] 08/15/2023 11:01:26 Date Recorded Body height Body mass index (BMI) Body weight Provider Name and Address Organization Details Last Updated DateTime 10/24/2023 182.88 cm 24.4 kg/m2 33522.63 g Gema Roach [facility] 10/24/2023 15:00:20 Social History Question Answer Notes LastModified by Organizat ion Details LastModified Time Tobacco Smoking Status Former Smoker Laura Santos [facility] 08/15/2023 11:04:33 What Is Your Level Of Alcohol Consumption? None [email or web address] Information not available 08/15/2023 What Is Your Level Of Caffeine Consumption? None [email or web address] Information not available 08/15/2023 When Did You Quit Smoking? 16+yearssinc elastcigaret te [email or web address] Information not available 08/15/2023 Race White Information n ot available 03/11/2020 Marital Status Informati on not available 03/11/2020 What Was The Date Of Your Most Recent Tobacco Screening? 10/24/2023 [email or web address] Information not available 10/24/2023 Do You Use Any Illicit Or Recreational Drugs? No [email or web address] Information not available 08/15/2023 Has Tobacco Cessation Counseling Been Provided? No [email or web address] Information not available 08/15/2023 Do You Or Have You Ever Used Any Other Forms Of Tobacco Or Nicotine? No [email or web address] Information not available 08/15/2023 Sex: Male Functional [...] Encounter Start Date Encounter Closed Date Diagnosis/Indication [id number] [facility] [address] [place] [phone] 08/15/2023 10:49:45 08/15/2023 11:27:52 Calculus of kidney and ureter Cyst of kidney Urinary bladder stone Neurogenic bladder Retention of urine [id number] Jonna Nava [address] [address] 10/05/2023 15:55:15 10/05/2023 16:25:42 Slowing of urinary stream [id number] [facility] [address] 10/24/2023 14:54:34 10/24/2023 15:30:45 Kidney stone Urinary [...] Name 10/24/2023 2 [place] [id number] Dhruv A Gappa [id number] Dwain A Gappa 10/24/2023 1 [place] [employer] [facility] Dwain A Gappa [id number] Dwain A Gappa 10/05/2023 2 [place] [id number] Dhruv A Gappa [id number] Dwain A Gappa 10/05/2023 1 [place] [employer] [facility] Dwain A Gappa [id number] 6 Dwain A Gappa 08/15/2023 2 [place] [id number] Dhruv A Gappa [id number] Dwain A Gappa 08/15/2023 1 [place] [employer] [facility] Dwain A Gappa [id number] Dwain Condon [facility] Notes Date Note Type Note Provider Name and Address Organization Details Recorded Time 08/15/2023 text/html HPI Notes: 08/15: Multiple sclerosis, NGB (does straight catheterization), kidney/bladder stones (history of struvite and calcium oxalate), HLD, PE. On warfarin. S/p bladder stone removal and right URS with Dr. Piedra on 08/01/19. On warfarin. PSA 11/03/21 = 1.9 ng/mL. Was at [facility] 10/15/22 to 10/17/[address] stone study 10/15/22 ([place]) = IMPRESSION: 1. A 3 mm obstructing [...] can be passed. Osito Pate MD [address], [place], [address], [facility] 08/15/2023 11:24:00 10/24/2023 text/html HPI Notes: 08/15: Multiple sclerosis, NGB (does straight catheterization), kidney/bladder stones (history of struvite and calcium oxalate), HLD, PE. On warfarin. S/p bladder stone removal and right URS with Dr. Piedra on 08/01/19. On warfarin. PSA 11/03/21 = 1.9 ng/mL. Was at [facility] 10/15/22 to 10/17/[address] stone study 10/15/22 ([place]) = IMPRESSION: 1. A 3 mm obstructing [...] can be passed. 10/24/23: Renal U/S 08/21/23 ([place]) = simple right renal cysts without masses, 1.[address] stone study 08/21/23 ([place]) = 1.6 cm right renal pelvis stone, [...] not having any pain. Osito Pate MD [address], [place], [address], [facility] 10/24/2023 15:29:52
--- OUTSIDE RECORDS SUMMARY | 2023-11-01 12:17 | XMS_ITS | Continuity of Care Document ---
Author Name Unknown Address [address] [place] [address] Phone [phone] Organization [facility], [facility] Address [address] [place] [address] Care Team Providers Care Aegis Operations Specialist Name Role Phone SHARI ALFONSO Primary Care [...] Not available Lab culture, urine 2023 024 [facility], [address] [place] [address], [address], [place], [address], 10/07/2023 11:40:13 Referral None recorded. Procedures None recorded. Surgeries None recorded. Imaging None recorded. Medication Orders None recorded. Patient TargetsNo targets recorded. Patient InstructionsNo instructions recorded. Reason for Referral None Reported. Results Created Date Observation Date Name Description Value Unit Range Abnormal Flag LastModifiedBy Organization Detail LastModifiedTime 10/16/19 24 10/16/2023 XR, pyelo gram No observ ation record ed. [facility] [address] [place], [address], 10/16/2023 15:04:11 Result Notes None recorded. Problems Name Status Onset Date Resolution Date Notes Provider Name and Address Organization Details Recorded Time Screening for malignant neoplasm of prostate Active 019 Z12.5 : Screening for malignant neoplasm of prostate Not Available [facility] 0 23:47:30 Clinical finding Active 018 N20.0 : Staghorn calculus Not Available [facility] 0 23:47:30 Neurogenic dysfunction of the urinary bladder Active 018 N31.9 : Neurogenic dysfunction of the urinary bladder Not Available [facility] 0 23:47:30 History of urinary stone Active 018 Z87.442 : History of urinary stone Not Available [facility] 0 23:47:30 Cyst of kidney Active 023 Osito Pate MD [address] [place] [address],[address], [address], [facility] 3 11:17:54 Calculus of kidney and ureter Active 023 Osito Pate MD [address] [place] [address],[address], [address], [facility] 3 11:17:55 Urinary bladder stone Active 023 Osito Pate MD [address] [place] [address],[address] [place] [address], [address], [facility] 3 11:19:12 Neurogenic bladder Active 023 Osito Pate MD [address] [place] [address],[address] [place] [address], [address], [facility] 3 11:19:28 Retention of urine Active 023 Osito Pate MD [address] [place] [address],[address], [address], [facility] 3 11:19:33 Kidney stone Active 024 Osito Pate MD [address] [place] [address],[address], [address], [facility] 4 11:00:19 Problem Notes None recorded. Procedures Surgical History Date Name Laterality Status Provider Name and Address Organization Details Recorded Time 10/24/19 24 Cystoscopy with foreign body/stent removal completed Osito Pate MD [address] [place] [address],[address], [address], [facility] 10/23/2023 10:59:43 10/05/19 24 [facility] 10/05/2023 16:23:47 08/01/20 19 Cysto/uretero w/lithotripsy completed Not Available [facility] 03/11/2020 14:45:31 03/28/20 18 Cystoscopy and treatment completed Not Available [facility] 03/11/2020 14:45:30 03/04/20 18 Remove bladder stone completed Not Available [facility] 03/11/2020 14:45:31 10/01/19 18 Colonoscopy thru stoma spx completed Not Available [facility] 03/11/2020 14:45:31 Imaging Results None recorded. Procedure Notes None recorded. Medical Equipment None Reported. Allergies Allergen ID Allergen Name Allergen Category Reaction Reaction Severity Criticality Documentation Date Start Date Code Code System Note Provider Name and Address Organization Details Recorded Time 478999 Medicinal product containin g penicilli n and acting as antibacte rial agent (product) medicatio n Not available Not available unabletoasse ss 10/08/2023 50361 05 SNOMED sympt oms or sever ity unkno wn. Updat ed per call with [facility]. This aller gy was on file with them since 2014. [facility] 10:37:47 Medications Name Sig Start Date [...] Time Tobacco Smoking Status Former Smoker [facility] 08/15/2023 11:04:33 What Is Your Level Of Alcohol Consumption? None Information not available 08/15/2023 What Is Your Level Of Caffeine Consumption? None [email or web address] Information not available 08/15/2023 When Did You Quit Smoking? 16+yearssinc elastcigaret te [email or web address] Information not available 08/15/2023 Race White [email or web address] Information n ot available 03/11/2020 Marital Status [email or web address] Informati on not available 03/11/2020 What Was The Date Of Your Most Recent Tobacco Screening? 10/24/2023 [email or web address] Information not available 10/24/2023 Do You Use Any Illicit Or Recreational Drugs? No [email or web address] Information not available 08/15/2023 Has Tobacco Cessation Counseling Been Provided? No [email or web address] Information not available 08/15/2023 Do You Or Have You Ever Used Any Other Forms Of Tobacco Or Nicotine? No [email or web address] Information not available 08/15/2023 Sex: Male Functional Status None recorded. Mental Status None recorded. Family History Relationship Description Onset Age of this Age Resolved Age Notes Notes:Heart disease:Father Medical History Condition Response Diabetes N Sexually Transmitted Infection N Bleeding Disorder N Other N High Blood Pressure Y Kidney Stones Y High Cholesterol N GERD/Acid Reflux N Heart Disease N Cancer N Depression N Lung Disease N Past Encounters Encounter ID Performer Location Encounter Start Date Encounter Closed Date Diagnosis/Indication [id number] Jonna [facility] [address] [place] [phone] 10/05/2023 15:55:15 10/05/2023 16:25:42 Slowing of urinary stream Health Concerns Section Related Observation LastModified by Organization Detai ls LastModified Time None Recorded Concern Status LastModified by Organization Details LastModified Time None Recorded Payers Encounter Date Sequence Insurance Name Policy Number Policy Fiore Covered Member ID Ifore Member ID Guarantor Name 10/05/2023 2 [place] [id number] Dhruv Condon Gappa [id number] Dwain Condon Gappa 10/05/2023 1 [place] [employer] Dwain Condon Gappa [id number] Dwain A Gappa Notes None Recorded
--- OUTSIDE RECORDS SUMMARY | 2023-11-01 12:17 | XMS_ITS | Continuity of Care Document ---
Author Name Unknown Address [address] [place] [address] Phone [phone] Organization [facility], [facility] Address [address] [place] [address] Care Team Providers Care Court Liaison Name Role Phone SHARI ALFONSO Primary Care Provider [phone] Assessment No assessment recorded. Plan of Treatment [...] pt to schedule . thanks 2022 023 [facility], [address] [place], [address], 08/22/2023 12:42:58 US, renal - right renal cyst please contact pt to schedule . thanks 2022 023 [facility], [address] [place], [address], 08/21/2023 12:15:37 Medication Orders None recorded. Patient TargetsNo targets recorded. Patient Instructions Encounter Date Encounter Id Patient Instructions Last Modified By Organization Details Last Modified Time 08/15/2023 [id number] ureteroscopy: wh at to expect at home [...] US, renal No observ ation record ed. [facility] [address], [place], [address], 08/22/2023 09:39:35 08/22/2008/21/2023 CT, abdom en + pelvi s, w/o contr ast No observ ation record ed. [facility] [address], [place], [address], 08/27/2023 12:46:25 10/16/19 24 10/16/2023 XR, pyelo gram No observ ation record ed. [facility] [address], [place], [address], 10/16/2023 15:04:11 Result Notes None recorded. Problems Name Status Onset Date Resolution Date Notes Provider Name and Address Organization Details Recorded Time Screening for malignant neoplasm of prostate Active 019 Z12.5 : Screening for malignant neoplasm of prostate Not Available [facility] 0 23:47:30 Clinical finding Active 018 N20.0 : Staghorn calculus Not Available [facility] 0 23:47:30 Neurogenic dysfunction of the urinary bladder Active 018 N31.9 : Neurogenic dysfunction of the urinary bladder Not Available [facility] 0 23:47:30 History of urinary stone Active 018 Z87.442 : History of urinary stone Not Available [facility] 0 23:47:30 Cyst of kidney Active 023 Osito Pate MD [address] [place] [address],[address], [address], [facility] 3 11:17:54 Calculus of kidney and ureter Active 023 Osito Pate MD [address] [place] [address],[address], [address], [facility] 3 11:17:55 Urinary bladder stone Active 023 Osito Pate MD [address] [place] [address],[address], [address], [facility] 3 11:19:12 Neurogenic bladder Active 023 Osito Pate MD [address] [place] [address],[address] [place] [address], [address], [facility] 3 11:19:28 Retention of urine Active 023 Osito Pate MD [address] [place] [address],[address], [place], [address], [facility] 3 11:19:33 Kidney stone Active 024 Osito Pate MD [address] [place] [address],[address], [place], [address], [facility] 4 11:00:19 Problem Notes None recorded. Procedures Surgical History Date Name Laterality Status Provider Name and Address Organization Details Recorded Time 10/24/19 24 Cystoscopy with foreign body/stent removal completed Osito Pate MD [address] [place] [address],[facility] [address], [place], [address], [facility] 10/23/2023 10:59:43 10/05/19 24 Urine Culture completed Jonna saldivar [facility] 10/05/2023 16:23:47 08/01/20 19 Cysto/uretero w/lithotripsy completed Not Available [facility] 03/11/2020 14:45:31 03/28/20 18 Cystoscopy and treatment completed Not Available [facility] 03/11/2020 14:45:30 03/04/20 18 Remove bladder stone completed Not Available [facility] 03/11/2020 14:45:31 10/01/19 18 Colonoscopy thru stoma spx completed Not Available [facility] 03/11/2020 14:45:31 Imaging Results None recorded. Procedure Notes None recorded. Medical Equipment None Reported. Allergies Allergen ID Allergen Name Allergen Category Reaction Reaction Severity Criticality Documentation Date Start Date Code Code System Note Provider Name and Address Organization Details Recorded Time 373213 Medicinal product containin g penicilli n and acting as antibacte rial agent (product) medicatio n Not available Not available unabletoasse ss 10/08/2023 87114 05 SNOMED sympt oms or sever ity unkno wn. Updat ed per call with [facility] 024. This aller gy was on file with them since 2014. Rach saldivar [facility] 4 10:37:47 Medications Name Sig [...] Updated DateTime 08/15/2023 182.88 cm 25.8 kg/m2 02977.[address] [facility] 08/15/2023 11:01:26 Social History Question Answer Notes LastModified by Organizat ion Details LastModified Time Tobacco Smoking Status Former Smoker Laura saldivar [facility] 08/15/2023 11:04:33 What Is Your Level Of Alcohol Consumption? None [email or web address] Information not available 08/15/2023 What Is Your Level Of Caffeine Consumption? None [email or web address] Information not available 08/15/2023 When Did You Quit Smoking? 16+yearssinc elastcigaret te [email or web address] Information not available 08/15/2023 Race White Information n ot available 03/11/2020 Marital Status Informati on not available 03/11/2020 What Was The Date Of Your Most Recent Tobacco Screening? 10/24/2023 [email or web address] Information not available 10/24/2023 Do You Use Any Illicit Or Recreational Drugs? No [email or web address] Information not available 08/15/2023 Has Tobacco Cessation Counseling Been Provided? No [email or web address] Information not available 08/15/2023 Do You Or Have You Ever Used Any Other Forms Of Tobacco Or Nicotine? No [email or web address] Information not available 08/15/2023 Sex: Male Functional [...] Encounter Start Date Encounter Closed Date Diagnosis/Indication [id number] Osito Pate MD [facility] [address] [place] [address],[address] [place] [address] 08/15/2023 10:49:45 08/15/2023 11:27:52 Calculus of kidney [...] Name 08/15/2023 2 [place] [id number] Dhruv A Gappa [id number] Dwain A Gappa 08/15/2023 1 [place] [employer] Dwain A Gappa [id number] 6 Dwain A Gappa Notes Date Note Type Note Provider Name and Address Organization Details Recorded Time 08/15/2023 text/html HPI Notes: 08/15: Multiple sclerosis, NGB (does straight catheterization), kidney/bladder stones (history of struvite and calcium oxalate), HLD, PE. On warfarin. S/p bladder stone removal and right URS with Dr. Piedra on 08/01/19. On warfarin. PSA 11/03/21 = 1.9 ng/mL. Was at [facility] 10/15/22 to 10/17/[address] stone study 10/15/22 ([place]) = IMPRESSION: 1. A 3 mm obstructing [...] catheter can be passed. Osito Pate MD [address] [place] [address],[address], [place], [address], [facility] 08/15/2023 11:24:00
--- OUTSIDE RECORDS SUMMARY | 2023-11-01 12:17 | XMS_ITS | Continuity of Care Document ---
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 2023 024 [facility], [address] [place], [address], 10/24/2023 15:45:25 Medication Orders None recorded. Patient TargetsNo targets recorded. Patient Instructions Encounter Date Encounter Id Patient Instructions Last Modified By Organization Details Last Modified Time 10/24/2023 [id number] Right kidney stone/bladder stones: Right ureteral stent [...] pyelo gram No observ ation record ed. [facility] [address] [facility], [place], [address], 10/16/2023 15:04:11 Result Notes None recorded. Problems Name Status Onset Date Resolution Date Notes Provider Name and Address Organization Details Recorded Time Screening for malignant neoplasm of prostate Active 019 Z12.5 : Screening for malignant neoplasm of prostate Not Available [facility] 0 23:47:30 Clinical finding Active 018 N20.0 : Staghorn calculus Not Available [facility] 0 23:47:30 Neurogenic dysfunction of the urinary bladder Active 018 N31.9 : Neurogenic dysfunction of the urinary bladder Not Available [facility] 0 23:47:30 History of urinary stone Active 018 Z87.442 : History of urinary stone Not Available [facility] 0 23:47:30 Cyst of kidney Active 023 Osito Pate MD [address] [place] [address],[address], [address], [facility] 3 11:17:54 Calculus of kidney and ureter Active 023 Osito Pate MD [address] [place] [address],[address], [address], [facility] 3 11:17:55 Urinary bladder stone Active 023 Osito Pate MD [address] [place] [address],[address], [address], [facility] 3 11:19:12 Neurogenic bladder Active 023 Osito Pate MD [address] [place] [address],[address], [address], [facility] 3 11:19:28 Retention of urine Active 023 Osito Pate MD [address] [place] [address],[address], [address], [facility] 3 11:19:33 Kidney stone Active 024 Osito Pate MD [address], [place], [address], [facility] 4 11:00:19 Problem Notes None recorded. Procedures Surgical History Date Name Laterality Status Provider Name and Address Organization Details Recorded Time 10/24/19 24 Cystoscopy with foreign body/stent removal completed Osito Pate MD [address] [place] [address],[address], [place], [address], [facility] 10/23/2023 10:59:43 10/05/19 24 Urine Culture completed Jonna saldivar [facility] 10/05/2023 16:23:47 08/01/20 19 Cysto/uretero w/lithotripsy completed Not Available [facility] 03/11/2020 14:45:31 03/28/20 18 Cystoscopy and treatment completed Not Available [facility] 03/11/2020 14:45:30 03/04/20 18 Remove bladder stone completed Not Available [facility] 03/11/2020 14:45:31 10/01/19 18 Colonoscopy thru stoma spx completed Not Available [facility] 03/11/2020 14:45:31 Imaging Results None recorded. Procedure Notes None recorded. Medical Equipment None Reported. Allergies Allergen ID Allergen Name Allergen Category Reaction Reaction Severity Criticality Documentation Date Start Date Code Code System Note Provider Name and Address Organization Details Recorded Time 739112 Medicinal product containin g penicilli n and acting as antibacte rial agent (product) medicatio n Not available Not available unabletoasse ss 10/08/2023 07275 05 SNOMED sympt oms or sever ity unkno wn. Updat ed per call with [facility] acy 024. This aller gy was on file with them since 2014. Rach saldivar [facility] 4 10:37:47 Medications Name Sig Start [...] Updated DateTime 10/24/2023 182.88 cm 24.4 kg/m2 63388.63 g Dewayneu Avinash Doc saldivar [facility] 10/24/2023 15:00:20 Social History Question Answer Notes LastModified by Organizat ion Details LastModified Time Tobacco Smoking Status Former Smoker Laura Felipemario saldivar [facility] 08/15/2023 11:04:33 What Is Your Level Of Alcohol Consumption? None [email or web address] Information not available 08/15/2023 What Is Your Level Of Caffeine Consumption? None [email or web address] Information not available 08/15/2023 When Did You Quit Smoking? 16+yearssinc elastcigaret te [email or web address] Information not available 08/15/2023 Race White Information n ot available 03/11/2020 Marital Status Informati on not available 03/11/2020 What Was The Date Of Your Most Recent Tobacco Screening? 10/24/2023 [email or web address] Information not available 10/24/2023 Do You Use Any Illicit Or Recreational Drugs? No [email or web address] Information not available 08/15/2023 Has Tobacco Cessation Counseling Been Provided? No [email or web address] Information not available 08/15/2023 Do You Or Have You Ever Used Any Other Forms Of Tobacco Or Nicotine? No [email or web address] Information not available 08/15/2023 Sex: Male Functional Status None recorded. Mental Status None recorded. Family History Relationship Description Onset Age of this Age Resolved Age Notes Notes:Heart disease:Father Medical History Condition Response Diabetes N Sexually Transmitted Infection N Bleeding Disorder N Other N High Blood Pressure Y Kidney Stones Y Cancer N Depression N Lung Disease N High Cholesterol N GERD/Acid Reflux N Heart Disease N Past Encounters Encounter ID Performer Location Encounter Start Date Encounter Closed Date Diagnosis/Indication [id number] Jonna Nava [facility] [address] [place] [address],[address] [place] [address] 10/05/2023 15:55:15 10/05/2023 16:25:42 Slowing of urinary stream [id number] Osito Pate MD [facility] [address] [place] [address],[address] [place] [address] 10/24/2023 14:54:34 10/24/2023 15:30:45 Kidney stone Urinary bladder stone Foreign body in ureter Health Concerns Section Related Observation LastModified by Organization Detai ls LastModified Time None Recorded Concern Status LastModified by Organization Details LastModified Time None Recorded Payers Encounter Date Sequence Insurance Name Policy Number Policy Fiore Covered Member ID Fiore Member ID Guarantor Name 10/24/2023 2 [place] [id number] Dhruv A Gappa [id number] Dwain A Gappa 10/24/2023 1 [place] [employer] Dwain A Gappa [id number] Dwain A Gappa Notes Date Note Type Note Provider Name and Address Organization Details Recorded Time 10/24/2023 text/html HPI Notes: 08/15: Multiple sclerosis, NGB (does straight catheterization), kidney/bladder stones (history of struvite and calcium oxalate), HLD, PE. On warfarin. S/p bladder stone removal and right URS with Dr. Piedra on 08/01/19. On warfarin. PSA 11/03/21 = 1.9 ng/mL. Was at [facility] 10/15/22 to 10/17/[address] stone study 10/15/22 ([place]) = IMPRESSION: 1. A 3 mm obstructing [...] can be passed. 10/24/23: Renal U/S 08/21/23 ([place]) = simple right renal cysts without masses, 1.[address] stone study 08/21/23 ([place]) = 1.6 cm right renal pelvis stone, [...] having any pain. Osito Pate MD [address], [place], [address], [facility] 10/24/2023 15:29:52
--- OUTSIDE RECORDS SUMMARY | 2023-11-01 12:18 | XMS_ITS | Clinical Summary ---
Author Name Unknown Organization [facility] er Address [address] [place] [address] Care Team Providers Care Land Appraiser Name Role Phone Hali Soriano APRN Primary [...] DIRECTED 120 each 11 07/25/20 21 Active olopatadine (PATADAY) 0.2 % ophthalmic solution [...] DAY FOR MULTIPLE SCLEROSIS 270 tablet 3 04/25/20 23 Active nitrofurantoin, macrocrystal-monoh ydrate, (Macrobid) 100 [...] 23 Active warfarin (COUMADIN) 2 MG tabletIndications: 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,Othe r pulmonary embolism without acute cor pulmonale, unspecified chronicity (HCC) TAKE ONE TABLET BY MOUTH EVERY SUNDAY AND SUNDAY, AND TWO TABLETS BY MOUTH ALL OTHER DAYS AND DIRECTED BY ANTICOAGULATION CLINIC. 155 tablet 3 10/10/19 24 Active atorvastatin (LIPITOR) 20 MG tabletIndications: Mixed hyperlipidemia START WITH TAKE ONE-HALF TABLET BY MOUTH AT BEDTIME FOR 8 DAYS, THEN TAKE ONE TABLET BY MOUTH AT BEDTIME 90 tablet 3 10/29/19 24 Active atorvastatin (LIPITOR) 20 MG tabletIndications: Mixed hyperlipidemia TAKE ONE TABLET BY MOUTH AT BEDTIME, START WITH ONE-HALF TABLET BY MOUTH FOR 8 DAYS THEN TAKE ONE TABLET NIGHTLY 90 tablet 3 10/30/19 23 024 Discontinued warfarin (Coumadin) 2 MG tabletIndications: 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,Othe r pulmonary embolism without acute cor pulmonale, unspecified chronicity (HCC) Take 4 mg Mon, Wed, Fri; 2 mg all other days OR as directed by Anticoagulation 129 tablet 3 08/24/20 23 024 Discontinued Active Problems Problem Noted Date Diagnosed Date Meningioma 11/01/2023 Sepsis secondary to UTI 11/01/2023 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/2023 Urinary bladder stone [...] : Neurogenic dysfunction of the urinary bladder 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 8 Anemia 12/25/2017 Pulmonary embolism 11/20/2017 Sensorineural hearing loss 08/27/2017 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 Paraplegia 10/04/2015 Moderate episode of recurrent major depressive d isorder 08/11/2015 Overview: Overview: Depression Major Recurrent Moderate Family history of malignant neoplasm of gastrointestinal tract 02/26/2014 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 Multiple sclerosis 10/19/2004 Encounters Date Type Department Care Team Description 10/30/2023 Refill [facility] [address] [address] Adarsh Carpenter MD Cystitis 10/23/2023 10:00 AM MOTORCYCLE SERVICE TECHNICIAN Lab [facility] [place] [phone] Prostate cancer screening; Retention of urine; penitentiary current use of anticoagulant; Hyperlipidemia LDL goal <100 10/22/2023 Anticoagulation - Warfarin Visit Anticoag/Interna l Medicine - Third Floor [address] [place] [address] Iliana Doyle RN 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 (Primary Dx); Other pulmonary embolism without acute cor pulmonale, unspecified chronicity (HCC) 10/22/2023 Telephone [facility] [address] [address] Hali Soriano APRN Lab orders needs 10/17/2023 Telephone [facility] [address] [address] Hali Soriano APRN OTHER 10/15/2023 [address]ill [facility] [address] [place] [address] Adarsh Carpenter MD Mixed hyperlipidemia 10/10/2023 Anticoagulation - Warfarin Visit [facility] Anticoag/Interna l Medicine - Third Floor [address], [place] [phone] Dolores Cleary RN 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 (Primary Dx); Other pulmonary embolism without acute cor pulmonale, unspecified chronicity (HCC) 10/08/2023 Anticoagulation - Warfarin Visit [facility] - Third Floor [address] [place], [place] [address] Iliana Doyle RN 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 (Primary Dx); Other pulmonary embolism without acute cor pulmonale, unspecified chronicity (HCC) 10/08/2023 Telephone [facility] - Third Floor [address], [place] [phone] Elli Campbell PA-C periprocedural recommendations 10/08/2023 Refill [facility]ag[facility]Intern[facility] Medicine - Third Floor [address] [place], [place] [address] Elli Campbell PA-C penitentiary current use of anticoagulant; Other pulmonary embolism without acute cor pulmonale, unspecified chronicity (HCC) 10/03/2023 Anticoagulation - Warfarin Visit [facility]ag[facility]Intern[facility] l Medicine - Third Floor [address], [place] [address] Anna Betts RN 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 (Primary Dx); Other pulmonary embolism without acute cor pulmonale, unspecified chronicity (HCC) 10/03/2023 Telephone [facility] - Third Floor [address], [place] [address] Elli Campbell PA-C 10/03/2023 Telephone [facility] [address] [address] Adarsh Carpenter MD 09/23/2023 Refill [facility] [address] [place] [address] Adarsh Carpenter MD Cystitis 09/20/2023 Telephone [facility] [address] [facility] 20 [place] [address] Adarsh Carpenter MD 09/19/2023 4:30 PM MOTORCYCLE SERVICE TECHNICIAN Lab [place] [address] [facility] 20 [place] [address] 09/19/2023 3:00 PM MOTORCYCLE SERVICE TECHNICIAN Consult [facility] [address] [address] Adarsh Carpenter MD Scalp lump (Primary Dx); Preop examination; Cystitis; Kidney stone; Bladder stone; Neurogenic bladder; Multiple sclerosis (HCC); History of pulmonary embolism; Current use of longterm anticoagulation; Quadriparesis (HCC); Seborrheic dermatitis of scalp 09/19/2023 Anticoagulation - Warfarin Visit SE Anticoag/Interna l [facility] - Third Floor [address] [place] [phone] Iliana Doyle RN 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 (Primary Dx); Other pulmonary embolism without acute cor pulmonale, unspecified chronicity (HCC) 09/05/2023 Anticoagulation - Warfarin Visit SE Anticoag/Interna l [facility] - Third Floor [address] [place] [phone] Anna Betts RN penitentiary current use of anticoagulant (Primary Dx); Other pulmonary embolism without acute cor pulmonale, unspecified chronicity (HCC) 08/24/2023 Orders Only [facility] [address] [address] Adarsh Carpenter MD Cystitis (Primary Dx) 08/24/2023 Anticoagulation - Warfarin Visit SE Anticoag/Interna l [facility] - Third Floor [address] [place] [address] [phone] Dolores Cleary RN 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 (Primary Dx); Other pulmonary embolism without acute cor pulmonale, unspecified chronicity (HCC) 08/21/2023 Telephone [facility] [address] [facility] 20 [place] [address] Adarsh Carpenter MD 08/17/2023 Telephone [facility] [address] [address] Adarsh Carpenter MD UA results 08/16/2023 1:00 PM MOTORCYCLE SERVICE TECHNICIAN Lab [place] [address] [place] [address] Frequency of micturition 08/08/2023 Anticoagulation - Warfarin Visit Anticoag/Interna l Medicine - Third Floor [address] [place] [address] Gregoria Bustamante RN 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 (Primary Dx) 08/04/2023 Orders Only [address] [address] Adarsh Carpenter MD 08/02/2023 10:30 AM CDT Lab [place] [address] [place] [address] Frequency of micturition (Primary Dx); Abnormal urine odor; History of UTI 08/02/2023 Orders Only [facility] [address] Adarsh Carpenter MD Cystitis (Primary Dx); Frequency of micturition 08/02/2023 Telephone [facility] [address] Adarsh Carpenter MD from Last 3 Months [...] often do you attend chur ch or nondenominational services? 1 to 4 times per year [...] Recorded PHQ-9 Total Score 2 09/19/2023 [facility] - Occupational [...] Comments Blood Pressure 122/89 09/19/2023 2:58 PM MOTORCYCLE SERVICE TECHNICIAN Pulse 86 09/19/2023 2:48 PM MOTORCYCLE SERVICE TECHNICIAN Temperature 37 ??C (98.6 ??F) 09/19/2023 2:48 PM MOTORCYCLE SERVICE TECHNICIAN Respiratory Rate 16 09/19/2023 2:48 PM MOTORCYCLE SERVICE TECHNICIAN Oxygen Saturation 92% 09/19/2023 2:48 PM MOTORCYCLE SERVICE TECHNICIAN Inhaled Oxygen Concentration - - Weight 84.8 kg (186 lb 15.2 oz) 08/11/2019 3:23 PM MOTORCYCLE SERVICE TECHNICIAN Height 185.4 cm (6' 0.99) 08/11/2019 3:23 PM CS T Body Mass Index 24.67 08/11/2019 3:23 PM MOTORCYCLE SERVICE TECHNICIAN Plan of Treatment Upcoming Encounters Date Type Department Care Team (Late st Contact Info) Description 11/07/2023 10:40 AM MOTORCYCLE SERVICE TECHNICIAN Office Visit [address] [address] Wade Donovan MD [address] [place] [phone] Health Maintenance Due Date Last Done Comments [...] FILTRATION RATE (EGFR) Routine 10/23/2023 10:11 AM MOTORCYCLE SERVICE TECHNICIAN Retention of urine LIPID PANEL Routine 10/23/2023 10:11 AM MOTORCYCLE SERVICE TECHNICIAN Hyperlipidemia LDL goal <100 CBC Routine 10/23/2023 10:11 AM MOTORCYCLE SERVICE TECHNICIAN penitentiary current use of anticoagulant BASIC METABOLIC PANEL Routine 10/23/2023 10:11 AM MOTORCYCLE SERVICE TECHNICIAN Retention of urine PSA Routine 10/23/2023 10:11 AM MOTORCYCLE SERVICE TECHNICIAN Prostate cancer screening PROTIME-INR Routine 10/22/2023 PROTIME-INR Routine 10/10/2023 PROTIME-INR Routine 10/03/2023 ESTIMATED GLOMERULAR FILTRATION RATE (EGFR) Routine 09/19/2023 3:57 PM MOTORCYCLE SERVICE TECHNICIAN Preop examination CBC BRANCH OFFICE W/DIFF Routine 09/19/2023 3:57 PM MOTORCYCLE SERVICE TECHNICIAN Preop examination BASIC METABOLIC PANEL Routine 09/19/2023 3:57 PM MOTORCYCLE SERVICE TECHNICIAN Preop examination PROTIME-INR Routine 09/19/2023 PROTIME-INR Routine 09/05/2023 PROTIME-INR Routine 08/22/2023 URINALYSIS-MICROSCOP IC EXAM (REFLEXED) Routine 08/16/2023 1:09 PM MOTORCYCLE SERVICE TECHNICIAN Frequency of micturition URINALYSIS WITH REFLEX MICROSCOPIC Routine 08/16/2023 1:09 PM MOTORCYCLE SERVICE TECHNICIAN Frequency of micturition URINE CULTURE Routine 08/16/2023 1:09 PM MOTORCYCLE SERVICE TECHNICIAN Frequency of micturition PROTIME-INR Routine 08/08/2023 URINALYSIS-MICROSCOP IC EXAM (REFLEXED) Routine 08/02/2023 10:38 AM CDT Frequency of micturition Abnormal urine odor URINALYSIS WITH REFLEX MICROSCOPIC Routine 08/02/2023 10:38 AM CDT Frequency of micturition Abnormal urine odor URINE CULTURE Routine 08/02/2023 10:34 AM CDT Frequency of micturition History of UTI from Last 3 Months Results * Estimated Glomerular Filtration Rate (eGFR) (10/23/2023 10:11 AM MOTORCYCLE SERVICE TECHNICIAN) Only the most recent of2 resultswithin the time period is included. Estimated Glomerular Filtration Rate (eGFR) >60 10/24/2023 1:56 PM MOTORCYCLE SERVICE TECHNICIAN [facility] Comment: GFR calculated from serum creatinine value Chronic Kidney Disease less than 60 mL/min/1.73 m2 Kidney Failure less than 15 mL/min/1.73 m2 Note: effective 09/27/2022: 2020 CKD-EPI Equation used 10/23/2023 10:1 1 AM MOTORCYCLE SERVICE TECHNICIAN 10/23/2023 10:11 AM MOTORCYCLE SERVICE TECHNICIAN Wade Donovan MD LAB BLOOD ORDERABLES [facility] [address] [place] [address] * (ABNORMAL) CBC ([employer]) (10/23/2023 10:11 AM MOTORCYCLE SERVICE TECHNICIAN) WBC 6.5 3.5 - 10.5 K/uL 10/23/2023 10:19 AM [facility] RBC 5.35 4.30 - 5.70 M/uL 10/23/2023 10:19 AM [facility] Hemoglobin 15.2 13.5 - 17.5 g/dL 10/23/2023 10:19 AM [facility] Hematocrit 48.2 38.0 - 50.0 % 10/23/2023 10:19 AM [facility] Platelets 292 150 - 450 K/uL 10/23/2023 10:19 AM [facility] MCV 90.1 81.2 - 95.1 fL 10/23/2023 10:19 AM [facility] MCH 28.4 26.0 - 32.0 pg 10/23/2023 10:19 AM [facility] MCHC 31.5(L) 32.0 - 36.0 g/dL 10/23/2023 10:19 AM [facility] RDW 15.3 11.8 - 15.6 % 10/23/2023 10:19 AM [facility] Blood (Blood, Venous) 10/23/2023 10:11 AM MOTORCYCLE SERVICE TECHNICIAN 10/23/2023 10:11 AM [facility] Wade Donovan MD LAB BLOOD ORDERABLES [facility] [address] [place] [address] * (ABNORMAL) PSA (10/23/2023 10:11 AM [facility]) Total PSA 5.9(H) 0.0 - 5.1 ng/mL 10/24/2023 3:46 PM MOTORCYCLE SERVICE TECHNICIAN [facility] Comment: The results from [...] method is an immunometric assay manufactured by [employer] and performed on the [employer] system. Biotin levels in serum remain elevated [...] testing. Blood (Blood, Venous) 10/23/2023 10:11 AM MOTORCYCLE SERVICE TECHNICIAN 10/24/2023 12:40 PM MOTORCYCLE SERVICE TECHNICIAN Wade Donovan MD LAB BLOOD ORDERABLES [facility] [address] [place] [address] * (ABNORMAL) Lipid panel (10/23/2023 10:11 AM MOTORCYCLE SERVICE TECHNICIAN) Cholesterol 135 0 - 199 mg/dL 10/24/2023 1:56 PM [facility] Comment: Recommended by National Cholesterol Education Program (ATP III) -------- Cholesterol Ranges -------- <200 ?Desirable 200-239 ? Borderline high >=240 ? High Triglycerides 95 0 - 149 mg/dL 10/24/2023 1:56 PM [facility] Comment: -------- TRIG Ranges -------- <150 ?Normal 150-199 ? Borderline high 200-499 ? High >=500 ? Very high HDL 30(L) 40 - 250 mg/dL 10/24/2023 1:56 PM [facility] Comment: -------- HDL Ranges -------- <40 ?Low 40-59 ?Normal >=60 ? Optimal LDL Calculated 86 0 - 99 mg/dL 10/24/2023 1:56 PM [facility] Comment: -------- LDL Ranges -------- <100 ? Optimal 100-129 ?Near optimal/above optimal 130-159 ?Borderline high 160-189 ?High >=190 ?Very high Blood (Blood, Venous) 10/23/2023 10:11 AM MOTORCYCLE SERVICE TECHNICIAN 10/24/2023 12:40 PM MOTORCYCLE SERVICE TECHNICIAN Wade Donovan MD LAB BLOOD ORDERABLES [facility] [address] [place] [address] * Basic metabolic panel (10/23/2023 10:11 AM MOTORCYCLE SERVICE TECHNICIAN) Only the most recent of2 resultswithin the time period is included. Sodium 140 135 - 145 mEq/L 10/24/2023 1:56 PM [facility] Potassium 4.0 3.5 - 5.1 mEq/L 10/24/2023 1:56 PM [facility] Chloride 107 98 - 107 mEq/L 10/24/2023 1:56 PM [facility] CO2 28 22 - 31 mmol/L 10/24/2023 1:56 PM [facility] Creatinine 0.80 0.60 - 1.40 mg/dL 10/24/2023 1:56 PM [facility] BUN 10 5 - 25 mg/dL 10/24/2023 1:56 PM [facility] Glucose 94 70 - 100 mg/dL 10/24/2023 1:56 PM [facility] Calcium, Total,S 8.9 8.4 - 10.2 mg/dL 10/24/2023 1:56 PM [facility] Anion Gap 5 4 - 13 10/24/2023 1:56 PM [facility] Comment: The anion gap is calculated with the following formula: AGAP = Na ? (Cl + CO2). Fasting? Yes 10/23/2023 10:11 AM MOTORCYCLE SERVICE TECHNICIAN [facility] Blood (Blood, Venous) 10/23/2023 10:11 AM MOTORCYCLE SERVICE TECHNICIAN 10/24/2023 12:40 PM MOTORCYCLE SERVICE TECHNICIAN Wade Donovan MD LAB BLOOD ORDERABLES [facility] [address] [place] [address] [facility] [address] [place] [address] * (ABNORMAL) Protime-INR (10/22/2023) Only the most recent of7 resultswithin the time period is included. INR 1.80(A) 0.9 - 1.1 HOME HEALT H POINT OF CARE TESTING Protime HOME HEALT H POINT OF CARE TESTING Blood (Blood, Venous) Historical Provider LAB BLOOD ORDERAB LES HOME HEALTH POINT OF CARE TESTING * (ABNORMAL) CBC Branch Off w/Diff (09/19/2023 3:57 PM MOTORCYCLE SERVICE TECHNICIAN) WBC 5.1 3.5 - 10.5 K/uL 09/19/2023 4:14 PM MOTORCYCLE SERVICE TECHNICIAN [facility] [place] RBC 5.73(H) 4.30 - 5.70 M/uL 09/19/2023 4:14 PM MOTORCYCLE SERVICE TECHNICIAN [facility] [place] Hemoglobin 16.1 13.5 - 17.5 g/dL 09/19/2023 4:14 PM MOTORCYCLE SERVICE TECHNICIAN [facility] [place] Hematocrit 51.5(H) 38.0 - 50.0 % 09/19/2023 4:14 PM MOTORCYCLE SERVICE TECHNICIAN [facility] [place] Platelets 231 150 - 450 K/uL 09/19/2023 4:14 PM MOTORCYCLE SERVICE TECHNICIAN [facility] [place] MCV 89.9 81.2 - 95.1 fL 09/19/2023 4:14 PM MOTORCYCLE SERVICE TECHNICIAN [facility] [place] MCH 28.1 26.0 - 32.0 pg 09/19/2023 4:14 PM MOTORCYCLE SERVICE TECHNICIAN [facility] MCHC 31.3(L) 32.0 - 36.0 g/dL 09/19/2023 4:14 PM MOTORCYCLE SERVICE TECHNICIAN [facility] RDW 15.7(H) 11.8 - 15.6 % 09/19/2023 4:14 PM MOTORCYCLE SERVICE TECHNICIAN [facility] Lymphocytes % 21.9 % 09/19/2023 4:14 PM MOTORCYCLE SERVICE TECHNICIAN [facility] [place] Mid-size Cells 13.5 % 09/19/2023 4:14 PM MOTORCYCLE SERVICE TECHNICIAN [facility] [place] Granulocytes/Mason trophils 64.6 % 09/19/2023 4:14 PM MOTORCYCLE SERVICE TECHNICIAN [facility] [place] Lymphocytes Absolute 1.1 0.9 - 2.9 K/uL 09/19/2023 4:14 PM MOTORCYCLE SERVICE TECHNICIAN [facility] MIDS Absolute 0.7 0.4 - 1.5 K/uL 09/19/2023 4:14 PM [facility] Granulocytes/Mason trophils Absolute 3.3 1.7 - 7.0 K/uL 09/19/2023 4:14 PM [facility] Blood (Blood, Venous) 09/19/2023 3:57 PM MOTORCYCLE SERVICE TECHNICIAN 09/19/2023 3:57 PM MOTORCYCLE SERVICE TECHNICIAN Adarsh Carpenter MD LAB BLOOD ORDERABLES [facility] [address] [place] [address] * (ABNORMAL) Urinalysis-Microscopic Exam (08/16/2023 1:09 PM MOTORCYCLE SERVICE TECHNICIAN) Only the most recent of2 resultswithin the time period is included. Casts, urine NONE SEEN 0-2 Hyaline /lpf 08/17/2023 1:43 PM [facility] Significant casts, urine NONE SEEN None Seen /lpf 08/17/2023 1:43 PM [facility] RBC, Urine 4-10(A) 0 - 3 /hpf 08/17/2023 1:43 PM [facility] WBC, Urine >100(A) /hpf 08/17/2023 1:43 PM [facility] Comment: Male: ?? 0-3/hpf Female: 0-10/hpf Squamous Epithelial, Urine NONE SEEN Few /lpf 08/17/2023 1:43 PM MOTORCYCLE SERVICE TECHNICIAN [facility] Trans Epithelial, Urine NONE SEEN 0 - 3 /hpf 08/17/2023 1:43 PM MOTORCYCLE SERVICE TECHNICIAN [facility] Renal Tubular Cells, Urine NONE SEEN 0 - 1 /hpf 08/17/2023 1:43 PM MOTORCYCLE SERVICE TECHNICIAN [facility] Bacteria, Urine 2+(A) None Seen - Few /hpf 08/17/2023 1:43 PM MOTORCYCLE SERVICE TECHNICIAN [facility] 08/16/2023 1:09 PM MOTORCYCLE SERVICE TECHNICIAN 08/17/2023 12:13 PM MOTORCYCLE SERVICE TECHNICIAN Adarsh Carpenter MD LAB URINE ORDERABLES [facility] [address] [place] [address] * (ABNORMAL) Urinalysis with reflex microscopic (08/16/2023 1:09 PM MOTORCYCLE SERVICE TECHNICIAN) Only the most recent of2 resultswithin the time period is included. Type CLEAN CATCH 08/16/2023 1:18 PM MOTORCYCLE SERVICE TECHNICIAN [facility] [place] Color, Urine YELLOW YELLOW 08/16/2023 1:18 PM MOTORCYCLE SERVICE TECHNICIAN [facility] [place] Clarity, Urine CLEAR CLEAR 08/16/2023 1:18 PM MOTORCYCLE SERVICE TECHNICIAN [facility] [place] Glucose, Urine NEGATIVE NEGATIVE mg/dL 08/16/2023 1:18 PM MOTORCYCLE SERVICE TECHNICIAN [facility] [place] Bilirubin, Urine NEGATIVE NEGATIVE 08/16/2023 1:18 PM MOTORCYCLE SERVICE TECHNICIAN [facility] [place] Ketones, Urine TRACE(A) NEGATIVE mg/dL 08/16/2023 1:18 PM MOTORCYCLE SERVICE TECHNICIAN [facility] [place] Specific [place], Urine 1.025 1.000 ->=1.030 08/16/2023 1:18 PM MOTORCYCLE SERVICE TECHNICIAN [facility] [place] Blood, Urine SMALL(A) NEGATIVE 08/16/2023 1:18 PM MOTORCYCLE SERVICE TECHNICIAN [facility] [place] pH, Urine 5.5 5.0 - 7.0 08/16/2023 1:18 PM MOTORCYCLE SERVICE TECHNICIAN [facility] [place] Protein, Urine 30(A) NEGATIVE-TRA CE mg/dL 08/16/2023 1:18 PM MOTORCYCLE SERVICE TECHNICIAN [facility] Urobilinogen, Urine 1.0 0.2 - 1.0 E.U./dL 08/16/2023 1:18 PM MOTORCYCLE SERVICE TECHNICIAN [facility] Nitrite, Urine NEGATIVE NEGATIVE 08/16/2023 1:18 PM MOTORCYCLE SERVICE TECHNICIAN [facility] Leukocytes, Urine SMALL(A) NEGATIVE 08/16/2023 1:18 PM MOTORCYCLE SERVICE TECHNICIAN [facility] Urine (Saenz Insert) 08/16/2023 1:09 PM MOTORCYCLE SERVICE TECHNICIAN 08/16/2023 1:10 PM MOTORCYCLE SERVICE TECHNICIAN Adarsh Carpenter MD LAB URINE ORDERABLES Performing Organization Address [facility] Co de Phone Number [facility] [address] [place] [address] * (ABNORMAL) Urine culture (08/16/2023 1:09 PM MOTORCYCLE SERVICE TECHNICIAN) Only the most recent of2 resultswithin the time period is included. Urine Culture Enterococcus faecalis >100,000 cfu/ml (A) 08/19/2023 9:49 AM MOTORCYCLE SERVICE TECHNICIAN [facility] Urine (Saenz Insert) 08/16/2023 1:09 PM MOTORCYCLE SERVICE TECHNICIAN 08/17/2023 12:13 PM MOTORCYCLE SERVICE TECHNICIAN Comment:Urine Culture Narrative Organism Antibiotic Method Susceptibility Enterococcus faecalis Ampicillin <=2 mcg/mL: Susceptible Enterococcus faecalis Ciprofloxacin 2 mcg/mL: Intermediate Enterococcus faecalis Nitrofurantoin <=32 mcg/mL: Susceptible Enterococcus faecalis Penicillin 2 mcg/mL: Susceptible Enterococcus faecalis Vancomycin 2 mcg/mL: Susceptible Adarsh Carpenter MD LAB MICROBIOLOGY - G ENERAL ORDERABLES [facility] [address] [place] [id number] from Last 3 Months Additional Health Concerns Infection Onset Date Last Indicated MSSA 08/02/2023 08/02/2023 Advance Directives For more information, please contact: [phone] Documents on File Type Date Recorded Patient Structural Test Engineer Expl anation POLST Order Form 11/14/2019 12:00 AM Care Teams Land Appraiser Relationship Specialty Start Date End Date Hali Soriano, SENIOR ASSOCIATE [address] [place] [id number] PCP - General Family Medicine 08/02/23
--- OUTSIDE RECORDS SUMMARY | 2023-11-01 12:18 | XMS_ITS | Referral Summary ---
Author Name Unknown Organization [facility] Address [address] [place] [address] Care Team Providers Care Furniture Sprayer Name Role Phone Elsewhere, Pcp Primary Care Provider Unavailabl e Source Comments Patient records contain information from all sites at [facility]. For routine questions regarding patient records, call [phone] during business hours, M-F 8:00 AM - 5:00 PM Central Time. Record requests for emergency care only can be directed to [phone] at any time.[facility] Allergies Active Allergy Reactions Criticality Noted Date [...] 11/03/2009 Influenza, Unspecified 07/11/2016,07/29/2015 SARS-COV-2 (COVID-19) - PFIZ ER (Discontinued)(12 years or older) 12/29/2020,12/08/2020 Tdap 11/03/2002 influenza high dose (65 [...] and Family Once a week 08/26/2019 Attends [employer] Never 08/26 Active Member of Clubs [...] Living Expenses Not very [address] 08/26/2019 [facility] [place] of Occupat ional Health - Occupational Stress [...] Comments Blood Pressure 112/83 08/26/2019 10:06 AM PIECE MARKER SMALL ARMS Pulse 90 08/26/2019 10:06 AM PIECE MARKER SMALL ARMS Temperature 36.2 ??C (97.2 ??F) 01/03/2018 5:35 PM CD T Respiratory Rate 18 01/03/2018 7:37 PM CDT Oxygen Saturation 95% 01/03/2018 7:37 PM CDT Inhaled Oxygen Concentration - - Weight 85 kg (187 lb 6.3 oz) 08/26/2019 10:06 AM PIECE MARKER SMALL ARMS Height 182 cm (5' 11.65) 08/26/2019 10:06 AM CS T Body Mass Index 25.66 08/26/2019 10:06 AM PIECE MARKER SMALL ARMS Plan of Treatment Not on file Medical Devices Implanted Type Area Cherry Picker Operator Device Identifier Shelf Expiration Date Model / Serial / Lot Synthes Nail-[place] Lock 4.9x 40 - [place] [id number] Implanted:Qty: 1 on 10/12/2000 Hardware e.g. pins/screws/ rods Depuy Oasys Water Description:Device Manufactu rer - Synthes. Device Status Text - [id number]. Biomet-Screw Luz Maria Part Thrd 4.0x46m - [place] [id number] Implanted:Qty: 1 on 06/11/2002 Hardware e.g. pins/screws/ rods BioMet Description:Device Manufactu rer - [employer]. Device Status Text - [id number]. Guarantor Name Account Type Relation to Patient Date of Phone Billing Address Dwain Hinds Personal/Family Self [address] [address] Advance Directives For more information, please contact: [phone] Latest Code Status on File Code Status Date Activated Date Inactivated Comments Full Code 12/23/2017 7:03 PM 12/27/2017 3:41 PM Question Answer Comments Full Code: Not Discussed Due to: Patient not available Care Teams Furniture Sprayer Relationship Specialty Start Date End Date Elsewhere, Pcp PCP - General Family Medicine 09/06/17
--- OUTSIDE RECORDS SUMMARY | 2023-11-01 12:18 | XMS_ITS ---
Author Name Unknown Organization [facility] Address [address] [place] [address] Care Team Providers Care Boat Oar Maker Name Role Phone Unavailable Unavailable Unavailable Surgery Details Not on file Complications Check Surgery Details section. Procedure Estimated Blood Loss Check Surgery Details section. Procedure Findings Check Surgery Details section. Procedure Specimens Taken Check Surgery Details section.
--- OUTSIDE RECORDS SUMMARY | 2023-11-01 12:18 | XMS_ITS | Encounter Summary ---
Author Name Unknown Organization [facility] er Address [address] [place] [address] Care Team Providers Care Trans Router Name Role Phone Hali Soriano APRN Primary Care Provider Encounter Details Date Type Department Care Team (Latest Contact Info) Description 10/22/2023 Anticoagulation - Warfarin Visit [facility]/Internal Medicine - Third Floor [address] [place] [address] [phone] Iliana Doyle, RN [address] [place] [phone] group home current use of anticoagulant (Primary Dx); Other [...] Date Recorded PHQ-9 Total Score 2 09/19/2023 [facility] Questionnaire Answer [...] a home liz. AVS mailed to patient. RTING LEAD documented in this encounter Plan of Treatment Upcoming Encounters Date Type Department Care Team (Late st Contact Info) Description 11/07/2023 10:40 AM REPORTING LEAD Office Visit [address] [address] [place] [address] [place] [phone] documented as of this encounter Procedures Procedure [...] documented as of this encounter Care Teams Trans Router Relationship Specialty Start Date End Date Hali Soriano APRN [address] [place] [phone] PCP - General Family Medicine 08/02/23 documented as of this encounter
--- OUTSIDE RECORDS SUMMARY | 2023-11-01 12:18 | XMS_ITS | Encounter Summary ---
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 1 to 4 times per year [...] Date Recorded PHQ-9 Total Score 2 09/19/2023 [facility] of Occupat ional Health - [...] st Contact Info) Description 11/07/2023 10:40 AM TELECOMMUNICATIONS CABLE JOINTER Office Visit [address] [address] [place] [address] [place] [phone] documented as of this encounter Procedures Procedure Name Priority Date/Time Associated Diagnosis Comments ESTIMATED GLOMERULAR FILTRATION RATE (EGFR) Routine 10/23/2023 10:11 AM TELECOMMUNICATIONS CABLE JOINTER Retention of urine CBC Routine 10/23/2023 10:11 AM TELECOMMUNICATIONS CABLE JOINTER long-term current use of anticoagulant PSA Routine 10/23/2023 10:11 AM TELECOMMUNICATIONS CABLE JOINTER Prostate cancer screening LIPID PANEL Routine 10/23/2023 10:11 AM TELECOMMUNICATIONS CABLE JOINTER Hyperlipidemia LDL goal <100 BASIC METABOLIC PANEL Routine 10/23/2023 10:11 AM TELECOMMUNICATIONS CABLE JOINTER Retention of urine documented in this encounter Results * Estimated Glomerular Filtration Rate (eGFR) (10/23/2023 10:11 AM TELECOMMUNICATIONS CABLE JOINTER) Estimated Glomerular Filtration Rate (eGFR) >60 10/24/2023 1:56 PM [facility] Comment: GFR calculated from serum creatinine value Chronic Kidney Disease less than 60 mL/min/1.73 m2 Kidney Failure less than 15 mL/min/1.73 m2 Note: effective 09/27/2022: 2020 CKD-EPI Equation used 10/23/2023 10:1 1 AM TELECOMMUNICATIONS CABLE JOINTER 10/23/2023 10:11 AM [facility] Wade Donovan MD LAB BLOOD ORDERABLES [facility] [address] [place] [address] * (ABNORMAL) Lipid panel (10/23/2023 10:11 AM [facility]) Cholesterol 135 0 - 199 mg/dL 10/24/2023 1:56 PM [facility] Comment: Recommended by National Cholesterol Education Program (ATP III) -------- Cholesterol Ranges -------- <200 ?Desirable 200-239 ? Borderline high >=240 ? High Triglycerides 95 0 - 149 mg/dL 10/24/2023 1:56 PM [facility] Comment: -------- TRIG Ranges -------- <150 ?Normal 150-199 ? Borderline high 200-499 ? High >=500 ? Very high HDL 30(L) 40 - 250 mg/dL 10/24/2023 1:56 PM [facility] Comment: -------- HDL Ranges -------- <40 ?Low 40-59 ?Normal >=60 ? Optimal LDL Calculated 86 0 - 99 mg/dL 10/24/2023 1:56 PM [facility] Comment: -------- LDL Ranges -------- <100 ? Optimal 100-129 ?Near optimal/above optimal 130-159 ?Borderline high 160-189 ?High >=190 ?Very high Blood (Blood, Venous) 10/23/2023 10:11 AM TELECOMMUNICATIONS CABLE JOINTER 10/24/2023 12:40 PM TELECOMMUNICATIONS CABLE JOINTER Wade Donovan MD LAB BLOOD ORDERABLES [facility] [address] [place] [address] * (ABNORMAL) CBC (Heme [facility]) (10/23/2023 10:11 AM TELECOMMUNICATIONS CABLE JOINTER) WBC 6.5 3.5 - 10.5 K/uL 10/23/2023 10:19 AM TELECOMMUNICATIONS CABLE JOINTER [facility] RBC 5.35 4.30 - 5.70 M/uL 10/23/2023 10:19 AM TELECOMMUNICATIONS CABLE JOINTER [facility] Hemoglobin 15.2 13.5 - 17.5 g/dL 10/23/2023 10:19 AM TELECOMMUNICATIONS CABLE JOINTER [facility] Hematocrit 48.2 38.0 - 50.0 % 10/23/2023 10:19 AM TELECOMMUNICATIONS CABLE JOINTER [facility] Platelets 292 150 - 450 K/uL 10/23/2023 10:19 AM TELECOMMUNICATIONS CABLE JOINTER [facility] MCV 90.1 81.2 - 95.1 fL 10/23/2023 10:19 AM TELECOMMUNICATIONS CABLE JOINTER [facility] MCH 28.4 26.0 - 32.0 pg 10/23/2023 10:19 AM TELECOMMUNICATIONS CABLE JOINTER [facility] MCHC 31.5(L) 32.0 - 36.0 g/dL 10/23/2023 10:19 AM TELECOMMUNICATIONS CABLE JOINTER [facility] RDW 15.3 11.8 - 15.6 % 10/23/2023 10:19 AM TELECOMMUNICATIONS CABLE JOINTER [facility] Blood (Blood, Venous) 10/23/2023 10:11 AM TELECOMMUNICATIONS CABLE JOINTER 10/23/2023 10:11 AM TELECOMMUNICATIONS CABLE JOINTER Wade Donovan MD LAB BLOOD ORDERABLES [facility] [address] [place] [address] * Basic metabolic panel (10/23/2023 10:11 AM TELECOMMUNICATIONS CABLE JOINTER) Sodium 140 135 - 145 mEq/L 10/24/2023 1:56 PM [facility] Potassium 4.0 3.5 - 5.1 mEq/L 10/24/2023 1:56 PM [facility] Chloride 107 98 - 107 mEq/L 10/24/2023 1:56 PM [facility] CO2 28 22 - 31 mmol/L 10/24/2023 1:56 PM [facility] Creatinine 0.80 0.60 - 1.40 mg/dL 10/24/2023 1:56 PM [facility] BUN 10 5 - 25 mg/dL 10/24/2023 1:56 PM [facility] Glucose 94 70 - 100 mg/dL 10/24/2023 1:56 PM [facility] Calcium, Total,S 8.9 8.4 - 10.2 mg/dL 10/24/2023 1:56 PM [facility] Anion Gap 5 4 - 13 10/24/2023 1:56 PM [facility] Comment: The anion gap is calculated with the following formula: AGAP = Na ? (Cl + CO2). Fasting? Yes 10/23/2023 10:11 AM TELECOMMUNICATIONS CABLE JOINTER [facility] [place] Blood (Blood, Venous) 10/23/2023 10:11 AM TELECOMMUNICATIONS CABLE JOINTER 10/24/2023 12:40 PM TELECOMMUNICATIONS CABLE JOINTER Waed Donovan MD LAB BLOOD ORDERABLES [facility] [address] [place] [address] [facility] [address] [place] [address] * (ABNORMAL) PSA (10/23/2023 10:11 AM TELECOMMUNICATIONS CABLE JOINTER) Total PSA 5.9(H) 0.0 - 5.1 ng/mL 10/24/2023 3:46 PM TELECOMMUNICATIONS CABLE JOINTER [facility] Comment: The results [...] method is an immunometric assay manufactured by [employer] and performed on the [employer] system. Biotin levels in serum remain elevated [...] testing. 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
--- OUTSIDE RECORDS SUMMARY | 2023-11-01 12:18 | XMS_ITS | Encounter Summary ---
Author Name Unknown Organization [facility] er Address [address] [place] [address] Care Team Providers Care Biomedical Instrument Technician Name Role Phone Hali Soriano APRN Primary Care Provider Reason for Visit * Reason Onset Date Comments Lab orders needs 10/22/2023 Encounter Details Date Type Department Care Team (Late st Contact Info) Description 10/22/2023 Telephone [place] [address] [place] [address] Hali Soriano APRN [address] [place] [address] [id number] Lab orders needs Social History Tobacco Use [...] often do you attend chur ch or jewish services? 1 to 4 times per year [...] Date Recorded PHQ-9 Total Score 2 09/19/2023 [facility] - Occupational Stress Questionnaire Answer Date [...] LPN - 10/22/2023 4:16 PM CST Noted OR INFORMATION SECURITY ARCHITECT * Telephone Encounter - Vidhya Bain LPN - 10/22/2023 9:27 AM CST The patient is on their way in and there are no orders for the patient. Please advise. OR INFORMATION SECURITY ARCHITECT documented in this encounter Plan of Treatment Upcoming Encounters Date Type Department Care Team (Late st Contact Info) Description 11/07/2023 10:40 AM SENIOR INFORMATION SECURITY ARCHITECT Office Visit [address] [address] [place] [address] [place] [phone] documented as of this encounter Results * (ABNORMAL) PSA (10/23/2023 10:11 AM SENIOR INFORMATION SECURITY ARCHITECT) Total PSA 5.9(H) 0.0 - 5.1 ng/mL 10/24/2023 3:46 PM SENIOR INFORMATION SECURITY ARCHITECT [facility] Comment: The results from [...] method is an immunometric assay manufactured by [employer] and performed on the [employer] system. Biotin levels in serum remain elevated [...] testing. Blood (Blood, Venous) 10/23/2023 10:11 AM SENIOR INFORMATION SECURITY ARCHITECT 10/24/2023 12:40 PM SENIOR INFORMATION SECURITY ARCHITECT Wade Donovan MD LAB BLOOD ORDERABLES [facility] [address] [place] [address] * Basic metabolic panel (10/23/2023 10:11 AM SENIOR INFORMATION SECURITY ARCHITECT) Sodium 140 135 - 145 mEq/L 10/24/2023 1:56 PM [facility] Potassium 4.0 3.5 - 5.1 mEq/L 10/24/2023 1:56 PM [facility] Chloride 107 98 - 107 mEq/L 10/24/2023 1:56 PM [facility] CO2 28 22 - 31 mmol/L 10/24/2023 1:56 PM [facility] Creatinine 0.80 0.60 - 1.40 mg/dL 10/24/2023 1:56 PM [facility] BUN 10 5 - 25 mg/dL 10/24/2023 1:56 PM [facility] Glucose 94 70 - 100 mg/dL 10/24/2023 1:56 PM [facility] Calcium, Total,S 8.9 8.4 - 10.2 mg/dL 10/24/2023 1:56 PM [facility] Anion Gap 5 4 - 13 10/24/2023 1:56 PM [facility] Comment: The anion gap is calculated with the following formula: AGAP = Na ? (Cl + CO2). Fasting? Yes 10/23/2023 10:11 AM [facility] Blood (Blood, Venous) 10/23/2023 10:11 AM [facility] 10/24/2023 12:40 PM [facility] Wade Donovan MD LAB BLOOD ORDERABLES [facility] [address] [facility] [address] [place] [address] [facility] [address] [place] [phone] * (ABNORMAL) CBC (Heme Group) (10/23/2023 10:11 AM [facility]) WBC 6.5 3.5 - 10.5 K/uL 10/23/2023 10:19 AM [facility] RBC 5.35 4.30 - 5.70 M/uL 10/23/2023 10:19 AM [facility] [place] Hemoglobin 15.2 13.5 - 17.5 g/dL 10/23/2023 10:19 AM [facility] [place] Hematocrit 48.2 38.0 - 50.0 % 10/23/2023 10:19 AM [facility] [place] Platelets 292 150 - 450 K/uL 10/23/2023 10:19 AM [facility] [place] MCV 90.1 81.2 - 95.1 fL 10/23/2023 10:19 AM [facility] MCH 28.4 26.0 - 32.0 pg 10/23/2023 10:19 AM [facility] MCHC 31.5(L) 32.0 - 36.0 g/dL 10/23/2023 10:19 AM [facility] RDW 15.3 11.8 - 15.6 % 10/23/2023 10:19 AM [facility] Blood (Blood, Venous) 10/23/2023 10:11 AM SENIOR INFORMATION SECURITY ARCHITECT 10/23/2023 10:11 AM SENIOR INFORMATION SECURITY ARCHITECT Wade Donovan MD LAB BLOOD ORDERABLES [facility] [address] [place] [address] * (ABNORMAL) Lipid panel (10/23/2023 10:11 AM SENIOR INFORMATION SECURITY ARCHITECT) Cholesterol 135 0 - 199 mg/dL 10/24/2023 1:56 PM [facility] Comment: Recommended by National Cholesterol Education Program (ATP III) -------- Cholesterol Ranges -------- <200 ?Desirable 200-239 ? Borderline high >=240 ? High Triglycerides 95 0 - 149 mg/dL 10/24/2023 1:56 PM [facility] Comment: -------- TRIG Ranges -------- <150 ?Normal 150-199 ? Borderline high 200-499 ? High >=500 ? Very high HDL 30(L) 40 - 250 mg/dL 10/24/2023 1:56 PM [facility] Comment: -------- HDL Ranges -------- <40 ?Low 40-59 ?Normal >=60 ? Optimal LDL Calculated 86 0 - 99 mg/dL 10/24/2023 1:56 PM [facility] Comment: -------- LDL Ranges -------- <100 ? 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
--- OUTSIDE RECORDS SUMMARY | 2023-11-01 12:18 | XMS_ITS | Clinical Summary ---
Author Name Unknown Organization [facility] Address [address] [place] [address] Care Team Providers Care Flash Developer Name Role Phone Elsewhere, Pcp Primary Care Provider Unavailabl e Source Comments Patient records contain information from all sites at [facility]. For routine questions regarding patient records, call [phone] during business hours, M-F 8:00 AM - 5:00 PM Central Time. Record requests for emergency care only can be directed to [phone] at any time.[facility] Allergies Active Allergy Reactions Criticality Noted Date [...] and Family Once a week 08/26/2019 Attends [employer] Never 08/26 Active Member of Clubs [...] Living Expenses Not very [address] 08/26/2019 [facility] Occupat ional Health - Occupational [...] Comments Blood Pressure 112/83 08/26/2019 10:06 AM TOOL AND MACHINE MAINTAINER Pulse 90 08/26/2019 10:06 AM TOOL AND MACHINE MAINTAINER Temperature 36.2 ??C (97.2 ??F) 01/03/2018 5:35 PM CD T Respiratory Rate 18 01/03/2018 7:37 PM CDT Oxygen Saturation 95% 01/03/2018 7:37 PM CDT Inhaled Oxygen Concentration - - Weight 85 kg (187 lb 6.3 oz) 08/26/2019 10:06 AM TOOL AND MACHINE MAINTAINER Height 182 cm (5' 11.65) 08/26/2019 10:06 AM CS T Body Mass Index 25.66 08/26/2019 10:06 AM TOOL AND MACHINE MAINTAINER Plan of Treatment Health Maintenance Due Date [...] history exists Medical Devices Implanted Type Area Senior Medical Technologist Device Identifier Shelf Expiration Date Model / Serial / Lot Synthes Nail-[place] Lock 4.9x 40 - [place] [id number] Implanted:Qty: 1 on 10/12/2000 Hardware e.g. pins/screws/ rods Depuy Synthes Description:Device Manufactu rer - Synthes. Device Status Text - [id number]. Biomet-Screw Luz Maria Part Thrd 4.0x46m - [place] [id number] Implanted:Qty: 1 on 06/11/2002 Hardware e.g. pins/screws/ rods BioMet Description:Device Manufactu rer - [employer] Device Status Text - [id number]. Advance Directives For more information, please contact: [phone] Latest Code Status on File Code Status Date Activated Date Inactivated Comments Full Code 12/23/2017 7:03 PM 12/27/2017 3:41 PM Question Answer Comments Full Code: Not Discussed Due to: Patient not available Care Teams Flash Developer Relationship Specialty Start Date End Date Elsewhere, Pcp PCP - General Family Medicine 09/06/17
--- OUTSIDE RECORDS SUMMARY | 2023-11-01 12:18 | XMS_ITS | Clinical Summary ---
Author Name Unknown Organization [employer] [facility] [employer] Address [place], [place] [address] Care Team Providers Care Durability Technician Name Role Phone Hang Carpenter Primary Care Provider [phone] Allergies Active Allergy Reactions Criticality Noted Date [...] Encounters Date Type Department Care Team Description 10/29/2023 11:00 AM POST DOC FELLOWSHIP Ancillary Procedure [facility] [place] [facility] [address] [place] [address] Arrived 10/16/2023 12:16 PM POST DOC FELLOWSHIP - 10/16/2023 2:42 PM POST DOC FELLOWSHIP Surgery [address] [address] Osito Pate MD CYSTOSCOPY, CYSTOLITHALOPAXY, RIGHT RETROGRADE PYELOGRAM, RIGHT URETEROSCOPY WITH LASER LITHOTRIPSY, RIGHT URETERAL STENT PLACEMENT 10/16/2023 11:58 AM POST DOC FELLOWSHIP Anesthesia Event [address] [address] Bhanu Delgado MD Koenig, Lisa Fredkove, MD 10/16/2023 10:40 AM POST DOC FELLOWSHIP - 10/16/2023 4:45 PM POST DOC FELLOWSHIP Hospital Encounter [address] [address] Osito Pate MD Calculus, kidney (Primary Dx) [...] Comments Blood Pressure 119/69 10/16/2023 4:29 PM POST DOC FELLOWSHIP Pulse 93 10/16/2023 4:29 PM POST DOC FELLOWSHIP Temperature 36.3 ??C (97.3 ??F) 10/16/2023 3:50 PM CS T Respiratory Rate 16 10/16/2023 4:10 PM POST DOC FELLOWSHIP Oxygen Saturation 94% 10/16/2023 4:29 PM POST DOC FELLOWSHIP Inhaled Oxygen Concentration - - Weight 86.8 kg (191 lb 6.4 oz) 10/16/2023 11:27 AM POST DOC FELLOWSHIP Height 182.9 cm (6') 10/16/2023 11:27 AM POST DOC FELLOWSHIP Body Mass Index 25.96 10/16/2023 11:27 AM POST DOC FELLOWSHIP Plan of Treatment Upcoming Encounters Date Type Department Care Team (Late st Contact Info) Description 11/05/2023 2:00 PM POST DOC FELLOWSHIP [facility] [address] [address] Jevon Trejo MD [address] [address] Health Maintenance Due Date Last Done Comments [...] 1 - PCV) 2023 COVID-19 vaccine series (2022- season) 2023 09/09/2021, 12/29/2020, 12/08/2020 Influenza for age 65+ 06/01/2023 Medical Devices Implanted Type Area Shuttle Bus Driver Device Identifier Shelf Expiration Date Model / Serial / Lot Stent Uret [id number] Percuflex Hydroplus - [id number] Implanted:Qty: 1 on 03/04/2018 by Jordi Piedra MD at [facility] Right: Ureter [facility] 07/29/2020 [id number]# / / [id number] Stent Uret [id number] Percuflex Hydroplus - [id number] Implanted:Qty: 1 on 08/01/2019 by Jordi Piedra MD at [facility] Right: Ureter [facility] 02/23/2022 [id number]# / / [id number] Stent Uret [id number] Percuflex Hydroplus - [id number] Implanted:Qty: 1 on 10/16/2023 by Osito Pate MD at [facility] Right: Ureter [facility] 03/23/2026 [id number] / / [id number] Procedures Procedure Name Priority Date/Time Associated Diagnosis Comments ECHO TTE COMPLETE WO CONTRAST Routine 10/29/2023 12:06 PM POST DOC FELLOWSHIP Tachycardia XR RETROGRADE PYELOGRAM W/WO KUB GREATER 1 HOUR Routine 10/16/2023 1:39 PM POST DOC FELLOWSHIP STONE ANALYSIS Today 10/16/2023 1:28 PM POST DOC FELLOWSHIP STONE ANALYSIS Today 10/16/2023 12:38 PM POST DOC FELLOWSHIP ENDOTRACHEAL TUBE Routine 10/16/2023 12:23 PM POST DOC FELLOWSHIP ENDOTRACHEAL TUBE Routine 10/16/2023 12:23 PM POST DOC FELLOWSHIP CYSTOSCOPY URETEROSCOPY STONE ABLATION LASER 10/16/2023 11:48 AM POST DOC FELLOWSHIP RIGHT KIDNEY STONE Case Notes 120 MINS - T/FFLUOROSCOPYLASER Special Needs Ht wt neededParaplegicLift room dosWarfarin Last dose 24Self CathsDelayed EmeregnceHOH PROTIME-INR Preop 10/16/2023 11:17 AM POST DOC FELLOWSHIP SCAN-CARDIAC STRIP 10/16/2023 12:00 AM POST DOC FELLOWSHIP from Last 3 Months Results * ECHO TTE COMPLETE WO CONTRAST (10/29/2023 12:06 PM POST DOC FELLOWSHIP) AORTIC VALVE MEAN PG 3 mmHg LVEDD 4.2 cm EJECTION FRACTION 70 - 75% Anatomical Region Laterality Modality Ultrasound 10/29/2023 11:3 1 AM POST DOC FELLOWSHIP Narrative 10/29/2023 12:57 PM POST DOC FELLOWSHIP ECHOCARDIOGRAM ISA MOHANDENISE ?Accession#: ?? [id number] : ?1960 63 years Study Date: ?? 10/29/2023 11:31:10 AM Gender: M ? BP: ? 131/82 mmHg Height: 183.00 cm ? BSA: ?2.12 m? ? ? Weight: 90.00 kg ?Tech: ? MCK ?Referring MD: AISHA YU Site: ? [facility] Reading Location: [facility] Patient Location: Outpatient. Procedure: 2D, Color Doppler and Spectral Doppler. Indication for study: Fever, positive blood cultures, tachycardia Cardiac Rhythm: Irregular.Study quality: Technically limited. Imaging limitations: This study was subject to imaging limitations due to body habitus and a prominent lung artifact. Final Impressions: 1. Technically limited exam with poor acoustic windows. 2. Normal LV size, mildly increased wall thickness, hyperdynamic global systolic function with an estimated EF of 70 - 75%. 3. Right ventricular cavity size is normal, global systolic RV function is normal. 4. No significant valve disease detected though study quality limited. Should IE remain a concern, consider ALVA as more definitive evaluation. Chamber Sizes and Function Normal left ventricular size, mildly increased wall thickness, hyperdynamic global systolic function with an estimated EF of 70 - 75%. Left atrial size is normal. Right ventricular cavity size is normal, global systolic RV function is normal. RV wall thickness is normal. The right atrium is normal. The pulmonary artery is of normal size and origin. The sinus of Valsalva is normal sized. The ascending aorta is normal sized. Valves, RV Pressures and Diastolic Function The aortic valve is normal in structure and trileaflet, no stenosis and no regurgitation. The mitral valve is normal in structure, no mitral regurgitation. Indeterminate pattern of LV diastolic filling. The tricuspid valve is normal in structure. Tricuspid regurgitation is trace regurgitation. The pulmonic valve is normal. Trace pulmonary regurgitation. Masses, Effusion, Shunts There is no pericardial effusion. The inferior vena cava is not well visualized, respiratory size variation not well visualized. Interatrial septum is not well visualized. MEASUREMENTS AND CALCULATIONS 2-D Measurements and LV Function: LVID (d) 4.2 cm LV FS% (2D) ?? 52 % LVID (s) 2.0 cm LVOT diameter 2.7 cm IVS (d) ??1.3 cm HR ?93 bpm LVPW (d) 1.5 cm RV Max 4C (d) 3.7 cm Ao Sinus 4.0 cm Asc Ao ?? 3.6 cm LA ? 2.8 cm Aortic Valve: Vmax ? 1.3 m/s ??ANTHONY (V) ?? 4.83 cm? ? ? VTI ?0.21 m ?? ANTHONY (I) ?? 5.41 cm? ? ? LVOT V max 1.1 m/s ??Max PG ?7 mmHg LVOT VTI ?? 0.20 m ?? Mean PG ?? 3 mmHg SV ? 112 ml ?? Dim Index 0.98 SV index ?? 53 ml/m? ? ? CO ?10.4 l/min ?CI ?4.9 l/min/m? ? ? . This study was interpreted by an [facility] accredited facility. CC: HIM (med records) [facility], Med/Surg - IP [facility]. ??Final ?? Procedure Note Jevon Boles MD - 10/29/2023 ECHOCARDIOGRAM ISA HINDS : 1960 63 years Study Date: 10/29/2023 11:31:10 AM Gender: M BP: 131/82 mmHg Height: 183.00 cm BSA: 2.12 m? ? ? Weight: 90.00 kg Tech: [facility] Referring MD: AISHA YU Site: [facility] Reading Location: [facility] Patient Location: Outpatient. Procedure: 2D, Color Doppler and Spectral Doppler. Indication for study: Fever, positive blood cultures, tachycardia Cardiac Rhythm: Irregular.Study quality: Technically limited. Imaging limitations: This study was subject to imaging limitations due tobody habitus and a prominent lung artifact. Final Impressions: 1. Technically limited exam with poor acoustic windows. 2. Normal LV size, mildly increased wall thickness, hyperdynamic globalsystolic function with an estimated EF of 70 - 75%. 3. Right ventricular cavity size is normal, global systolic RV functionis normal. 4. No significant valve disease detected though study quality limited.Should IE remain a concern, consider ALVA as more definitive evaluation. Chamber Sizes and Function Normal left ventricular size, mildly increased wall thickness,hyperdynamic global systolic function with an estimated EF of 70 - 75%.Left atrial size is normal. Right ventricular cavity size is normal,global systolic RV function is normal. RV wall thickness is normal. Theright atrium is normal. The pulmonary artery is of normal size and origin.The sinus of Valsalva is normal sized. The ascending aorta is normalsized. Valves, RV Pressures and Diastolic Function The aortic valve is normal in structure and trileaflet, no stenosis and noregurgitation. The mitral valve is normal in structure, no mitralregurgitation. Indeterminate pattern of LV diastolic filling. Thetricuspid valve is normal in structure. Tricuspid regurgitation is traceregurgitation. The pulmonic valve is normal. Trace pulmonaryregurgitation. Masses, Effusion, Shunts There is no pericardial effusion. The inferior vena cava is not wellvisualized, respiratory size variation not well visualized. Interatrialseptum is not well visualized. MEASUREMENTS AND CALCULATIONS 2-D Measurements and LV Function: LVID (d) 4.2 cm LV FS% (2D) 52 % LVID (s) 2.0 cm LVOT diameter 2.7 cm IVS (d) 1.3 cm HR 93 bpm LVPW (d) 1.5 cm RV Max 4C (d) 3.7 cm Ao Sinus 4.0 cm Asc Ao 3.6 cm LA 2.8 cm Aortic Valve: Vmax 1.3 m/s ANTHONY (V) 4.83 cm? ? ? VTI 0.21 m ANTHONY (I) 5.41 cm? ? ? LVOT V max 1.1 m/s Max PG 7 mmHg LVOT VTI 0.20 m Mean PG 3 mmHg SV 112 ml Dim Index 0.98 SV index 53 ml/m? ? ? CO 10.4 l/min CI 4.9 l/min/m? ? ? . This study was interpreted by an [facility] accredited facility. CC: HIM (med records) [facility], Med/Surg - IP [facility]. Final Aisha Yu MD ECHO ORD * XR RETROGRADE PYELOGRAM W/WO KUB GREATER 1 HOUR (10/16/2023 1:39 PM POST DOC FELLOWSHIP) Anatomical Region Laterality Modality KIDNEYS, Abdomen Computed Radiog tracy 10/16/2023 1:39 PM POST DOC FELLOWSHIP Narrative 10/16/2023 1:51 PM POST DOC FELLOWSHIP For Patients: As a result of the Cures Act, medical imaging exams and procedure reports are released immediately into your electronic medical record. You may view this report before your referring provider. If you have questions, please contact your health care provider. EXAM: XR RETROGRADE PYELOGRAM W/WO KUB GREATER 1 HOUR LOCATION: [facility] DATE: 10/16/2023 INDICATION: Stones COMPARISON: [...] PYELOGRAM W/WO KUB GREATER 1 HOUR LOCATION: [facility] DATE: 10/16/2023 INDICATION: Stones COMPARISON: None. TECHNIQUE: Exam performed by urologist. RADIATION DOSE: MIC 42.14 mGy FINDINGS: Intraoperative fluoroscopy demonstrates retrograde opacificationof the ureter with a normal caliber. Moderate dilatation of the renalcollecting system with a double-J ureteral catheter placed with theproximal and distal pigtails in appropriate position. Osito Pate MD GENERAL IMAGING * STONE ANALYSIS (10/16/2023 1:28 PM POST DOC FELLOWSHIP) Only the most recent of2 resultswithin the time period is included. Source Comment 10/22/2023 6:07 PM [facility] ([facility]) Comment:Right Kidney Color Brown 10/22/2023 6:07 PM [facility] ([facility]) Size 4x3 mm 10/22/2023 6:07 PM [facility] ([facility]) Comment: Multiple pieces received. ??Dimensions of the largest piece reported. Weight 52.0 mg 10/22/2023 6:07 PM [facility] ([facility]) Composition Comment 10/22/2023 6:07 PM [facility] ([facility]) Comment:Percentage (Represen ts the % composition) Calcium Oxalate Monoh 60 % 10/22/2023 6:07 PM [facility] ([facility]) Calcium Oxalate Dihyd 20 % 10/22/2023 6:07 PM [facility] ([facility]) Hydroxyapatite 20 % 10/22/2023 6:07 PM [facility] ([facility]) Comment Comment 10/22/2023 6:07 PM [facility] ([facility]) Comment: Calcium phosphate (hydroxyl form) includes hydroxyapatite, amorphous calcium phosphate, and whitlockite. Hydroxyapatite is the most common of the calcium phosphate salts found in human kidney stones. Comment Comment 10/22/2023 6:07 PM [facility] ([facility]) Comment: Calculus received wet. Wet calculi must be dried before analysis, which delays reporting of results. Leaving calculi wet (such as water, saline, blood, urine) may lead to changes in composition. Photo Comment 10/22/2023 6:07 PM [facility] ([facility]) Comment:Photograph will foll ow under a separate cover Comment: Comment 10/22/2023 6:07 PM [facility] ([facility]) Comment: Physician questions regarding Calculi Analysis contact [facility] at: [phone]. Please note: Comment 10/22/2023 6:07 PM [facility] ([facility]) Comment: Calculi report will follow via computer, mail or slat pickler delivery. Disclaimer: Comment 10/22/2023 6:07 PM [facility] ([facility]) Comment: This test was developed and its performance characteristics determined by [facility]. ??It has not been cleared or approved by the Food and Drug Administration. Calculi (stone) (Right Kidney Stone) Non-Blood / Unknown 10/16/2023 1:28 PM POST DOC FELLOWSHIP 10/16/2023 2:00 PM [facility] Narrative [facility] ([facility] - 10/22/2023 6:07 PM [facility] Performed at: ??[address] ??[id number] Fishing Rod Marker: Marvel Moses PhD, Phone: ??[phone] Osito Pate MD SEND OUTS [facility] ([facility]) [facility] [place] [address], * HCHG TUBE PR1, HCHG MOUTHPIECE PR1 (10/16/2023 12:23 PM POST DOC FELLOWSHIP) Narrative Guanakito Garrison CRNA - 10/16/2023 12:23 PM POST DOC FELLOWSHIP Guanakito Garrison CRNA ? 10/16/2023 12:23 PM [...] ORDERABLES * (ABNORMAL) PROTIME-INR (10/16/2023 11:17 AM POST DOC FELLOWSHIP) INR 1.2 <1.3 10/16/2023 11:44 AM POST DOC FELLOWSHIP [facility] PROTIME 13.1(H) 10.3 - 12.3 sec 10/16/2023 11:44 AM POST DOC FELLOWSHIP [facility] Blood BLOOD SPECIMEN / Unknown Non-Lab Venipuncture / Unknown 10/16/2023 11:17 AM POST DOC FELLOWSHIP 10/16/2023 11:26 AM POST DOC FELLOWSHIP Narrative [facility] - 10/16/2023 11:44 AM POST DOC FELLOWSHIP ?Therapeutic Range 2.0-3.0 for most anticoagulated patients [...] is on UFH. Osito Pate MD HEMATOLOGY [facility] SENDOUT [place] [address]IP [id number] [address] [place] [address] * SCAN-CARDIAC STRIP (10/16/2023 12:00 AM POST DOC FELLOWSHIP) Narrative 10/16/2023 12:00 AM POST DOC FELLOWSHIP Ordered by an unspecified provider. Other Clinical [...] 5:50 AM 03/04/2018 1:54 PM Care Teams Durability Technician Relationship Specialty Start Date End Date Hang Carpenter [address] [place] [address] PCP - General Family Practice 09/01/15
--- OUTSIDE RECORDS SUMMARY | 2023-11-01 12:18 | XMS_ITS | Encounter Summary ---
Author Name Unknown Organization [facility] er Address [address] [place] [address] Care Team Providers Care Communications Department Chairperson Name Role Phone Hali Soriano APRN Primary Care Provider Reason for Visit * Reason Comments Med Refill Encounter Details Date Type Department Care Team (Late st Contact Info) Description 10/30/2023 Refill [place] [address] [place] [address] Adarsh Carpenter MD [address] [place] [address] Cystitis Social History Tobacco Use Types Packs/Day [...] any clubs o r organizations such as adventism groups, unions, fraternal [...] Score 2 09/19/2023 [facility] - Occupational [...] st Contact Info) Description 11/07/2023 10:40 AM WELLNESS PROGRAM MANAGER Office Visit [facility] [address] [place] [address] Wade Donovan MD [address] [place] [phone] documented as of this encounter Visit Diagnoses Diagnosis Cystitis Unspecified cystitis documented in this encounter Additional Health Concerns Infection Onset Date Last Indicated Resolved Time MSSA 08/02/2023 08/02/2023 documented as of this encounter Care Teams Communications Department Chairperson Relationship Specialty Start Date End Date Hali Soriano APRN [address] [place] [phone] PCP - General Family Medicine 08/02/23 documented as of this encounter
--- OUTSIDE RECORDS SUMMARY | 2023-11-01 12:19 | XMS_ITS | Encounter Summary ---
Author Name Unknown Organization [facility] er Address [address] [place] [address] Care Team Providers Care Manager Programming Name Role Phone Hali Soriano APRN Primary Care Provider Encounter Details Date Type Department Care Team (Late st Contact Info) Description 10/03/2023 Telephone SE Antico/Internal Medicine - Third Floor [address] [place] [phone] Elli Campbell PA-C [address] [place] [address] Social History Tobacco Use Types [...] How often do you attend chur or tenriism services? 1 to 4 times [...] Date Recorded PHQ-9 Total Score 2 09/19/2023 [facility]ational Stress Questionnaire Answer [...] slept in a jail (including now)? No 09/19/2023 Sex and Gender [...] to be off Warfarin for this procedure. CLE LEASING AND RENTAL MANAGER * Telephone Encounter - Iliana Doyle RN - 10/03/2023 11:31 AM VEHICLE LEASING AND RENTAL MANAGER Patient noted to be having the following procedures at [facility] with Osito Pate MD, on 10/16/23: CYSTOSCOPY, CYSTOLITHALOPAXY, RIGHT RETROGRADE PYELOGRAM, RIGHT URETEROSCOPY WITH LASER LITHOTRIPSY, RIGHT URETERAL STENT PLACEMENT ACC contacted Dr. Pate's office requesting advice on if patient needs to hold warfarin for these procedures. Message left with office, will await call back. CLE LEASING AND RENTAL MANAGER documented in this encounter Plan of Treatment Upcoming Encounters Date Type Department Care Team (Late st Contact Info) Description 11/07/2023 10:40 AM VEHICLE LEASING AND RENTAL MANAGER Office Visit [place] [address] [address] Wade Donovan MD [address] [facility] [address] [place] [address] documented as of this encounter Visit Diagnoses Not on filedocumented in this encounter Additional Health Concerns Infection Onset Date Last Indicated Resolved Time MSSA 08/02/2023 08/02/2023 documented as of this encounter Care Teams Manager Programming Relationship Specialty Start Date End Date Hali Soriano APRN [address] [place] [phone] PCP - General Family Medicine 08/02/23 documented as of this encounter
--- OUTSIDE RECORDS SUMMARY | 2023-11-01 12:19 | XMS_ITS | Encounter Summary ---
Author Name Unknown Organization [facility] er Address [address] [place] [address] Care Team Providers Care Magazine Hand Name Role Phone Hali Soriano APRN Primary Care Provider Reason for Visit * Reason Comments Med Refill Encounter Details Date Type Department Care Team (Late st Contact Info) Description 10/08/2023 Refill SE Anticoag/Internal Medicine - Third Floor [address] [place] [phone] Elli Campbell PA-C [address] [place] [address] [facility] current use of anticoagulant; Other pulmonary embolism [...] How often do you attend chur or roman catholic services? 1 to 4 times per year 09/19/2023 Do you belong to any clubs o r organizations such as restoration groups, unions, fraternal [...] Date Recorded PHQ-9 Total Score 2 09/19/2023 [facility] - Occupational Stress Questionnaire Answer Date [...] Hali Soriano APRN - 10/10/2023 8:34 AM COMMUNITY HEALTH DIRECTOR RX sent to pharmacy [facility] * Telephone Encounter - Glenys Munoz MA [...] (CSA): Last Random Urine Drug Screen (RUDS): [facility] documented in this encounter Plan of Treatment Upcoming Encounters Date Type Department Care Team (Late st Contact Info) Description 11/07/2023 10:40 AM COMMUNITY HEALTH DIRECTOR Office Visit [address] [address] Wade Donovan MD [address] [place] [phone] documented as of this encounter 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
--- OUTSIDE RECORDS SUMMARY | 2023-11-01 12:19 | XMS_ITS | Encounter Summary ---
Author Name Unknown Organization [facility] er Address [address] [place] [address] Care Team Providers Care Real Time Operator Name Role Phone Hali Soriano APRN Primary Care Provider Reason for Referral * Consultation (Routine) - Authorized Specialty Diagnoses / Procedures Referred By Contac t Referred To Contact Diagnoses Scalp lump Adarsh Carpenter MD [address] [phone] [address] Referral ID Status Reason Start Date Expiration Date V isits Requested Visits Authorized [id number] Authorized 09/20/2023 09/20/2024 1 1 ND HOST/HOSTESS Reason for Visit * Reason Comments DOS: 10/16/2022 Dr. Pate, [facility] Pre-op Exam Encounter Details Date Type Department Care Team (Late st Contact Info) Description 09/19/2023 3:00 PM GROUND HOST/HOSTESS Consult [place] [address] [place] [phone] Adarsh Carpenter MD [address] [phone] Scalp lump (Primary Dx); Preop examination; Cystitis; Kidney stone; Bladder stone; Neurogenic bladder; Multiple sclerosis (HCC); History of pulmonary embolism; Current use of detention anticoagulation; Quadriparesis (HCC); Seborrheic dermatitis of scalp [...] week 09/19/2023 How often do you attend [facility] or pentecostal services? 1 to 4 times per year [...] Date Recorded PHQ-9 Total Score 2 09/19/2023 [facility] - Occupational [...] Comments Blood Pressure 122/89 09/19/2023 2:58 PM GROUND HOST/HOSTESS Pulse 86 09/19/2023 2:48 PM GROUND HOST/HOSTESS Temperature 37 ??C (98.6 ??F) 09/19/2023 2:48 PM GROUND HOST/HOSTESS Respiratory Rate 16 09/19/2023 2:48 PM GROUND HOST/HOSTESS Oxygen Saturation 92% 09/19/2023 2:48 PM GROUND HOST/HOSTESS Inhaled Oxygen Concentration - - Weight - - Height - - Body Mass Index - - documented in this encounter Progress Notes * Lakisha Rucker RN - 09/19/2023 3:00 PM CST EKG performed in clinic today. Scanned to cardiology for interpretation. ND HOST/HOSTESS * Adarsh Carpenter MD - 09/19/2023 3:00 PM CST Subjective Patient ID: Dwain Hinds is a 63 y.o. male. HPI the patient is here today for a PREOPERATIVE EVALUATION prior to elective procedure that will take place on October 16, 2023 at [facility]. The procedure is removal of a retained bladder stone as well as a kidney stone. The procedure will take place at [facility] and the surgeon's name is Dr. [...] and does home monitoring with input from [facility]'s anticoagulation team. SMOKING quit greater than 20 [...] History of pulmonary embolism Current use of intermodal customer service anticoagulation Quadriparesis (HCC) The overall assessment is as discussed. The plan at this time is He is given SURGICAL CLEARANCE to have his procedure done under general anesthesia We have contacted [facility]'s anticoagulation team and they will manage his [...] least 8 hours prior to the procedure. ND HOST/HOSTESS documented in this encounter Plan of Treatment Upcoming Encounters Date Type Department Care Team (Late st Contact Info) Description 11/07/2023 10:40 AM GROUND HOST/HOSTESS Office Visit [address] [address] Wade Donovan MD [address] [place] [phone] Scheduled Orders Name Type Priority Associated Diagnoses Orde r Schedule ECG 12 lead ECG Routine Preop examination 1 Occurrences starting 09/19/2023 until 09/19/2024 Scheduled Referrals Name Type Priority Associated Diagnoses Order Schedule Ambulatory External Referral [facility]; Radiology Outpatient Referral Routine Scalp lump Ordered: 09/20/2023 documented as of this encounter Procedures Procedure Name Priority Date/Time Associated Diagnosis Comments ESTIMATED GLOMERULAR FILTRATION RATE (EGFR) Routine 09/19/2023 3:57 PM GROUND HOST/HOSTESS Preop examination CBC BRANCH OFFICE W/DIFF Routine 09/19/2023 3:57 PM GROUND HOST/HOSTESS Preop examination BASIC METABOLIC PANEL Routine 09/19/2023 3:57 PM GROUND HOST/HOSTESS Preop examination documented in this encounter Results * Estimated Glomerular Filtration Rate (eGFR) (09/19/2023 3:57 PM GROUND HOST/HOSTESS) Estimated Glomerular Filtration Rate (eGFR) >60 09/19/2023 4:14 PM GROUND HOST/HOSTESS [facility] Comment: GFR calculated from serum creatinine value Chronic Kidney Disease less than 60 mL/min/1.73 m2 Kidney Failure less than 15 mL/min/1.73 m2 Note: effective 09/27/2022: 2020 CKD-EPI Equation used 09/19/2023 3:57 PM GROUND HOST/HOSTESS 09/19/2023 3:57 PM GROUND HOST/HOSTESS Adarsh Carpenter MD LAB BLOOD ORDERABLES [facility] [address] [place] [address] * (ABNORMAL) Basic metabolic panel (09/19/2023 3:57 PM GROUND HOST/HOSTESS) Sodium 139 135 - 145 mmol/L 09/19/2023 4:14 PM GROUND HOST/HOSTESS [facility] [facility] Potassium 3.6 3.5 - 5.1 mmol/L 09/19/2023 4:14 PM GROUND HOST/HOSTESS [facility] [place] Chloride 105 98 - 107 mmol/L 09/19/2023 4:14 PM GROUND HOST/HOSTESS [facility] [place] CO2 33(H) 22 - 31 mmol/L 09/19/2023 4:14 PM GROUND HOST/HOSTESS [facility] [place] Creatinine 0.8 0.6 - 1.4 mg/dL 09/19/2023 4:14 PM GROUND HOST/HOSTESS [facility] [place] [place] BUN 8 5 - 25 mg/dL 09/19/2023 4:14 PM GROUND HOST/HOSTESS [facility] [place] Glucose 91 70 - 100 mg/dL 09/19/2023 4:14 PM GROUND HOST/HOSTESS [facility] [place] Calcium, Total,S 9.0 8.4 - 10.2 mg/dL 09/19/2023 4:14 PM GROUND HOST/HOSTESS [facility] [place] Anion Gap 1(L) 4 - 13 09/19/2023 4:14 PM GROUND HOST/HOSTESS [facility] Comment: The anion gap is calculated with the following formula: AGAP = Na ? (Cl + CO2). Fasting? No 09/19/2023 3:58 PM GROUND HOST/HOSTESS [facility] [place] Blood 09/19/2023 3:57 PM GROUND HOST/HOSTESS 09/19/2023 3:57 PM GROUND HOST/HOSTESS DLatanya Carpenter MD LAB BLOOD ORDERABLES [facility] [place] [address] [place] [address] * (ABNORMAL) CBC Branch Off w/Diff (09/19/2023 3:57 PM GROUND HOST/HOSTESS) WBC 5.1 3.5 - 10.5 K/uL 09/19/2023 4:14 PM GROUND HOST/HOSTESS [facility] [place] RBC 5.73(H) 4.30 - 5.70 M/uL 09/19/2023 4:14 PM GROUND HOST/HOSTESS [facility] [place] Hemoglobin 16.1 13.5 - 17.5 g/dL 09/19/2023 4:14 PM GROUND HOST/HOSTESS [facility] [place] Hematocrit 51.5(H) 38.0 - 50.0 % 09/19/2023 4:14 PM GROUND HOST/HOSTESS [facility] [place] Platelets 231 150 - 450 K/uL 09/19/2023 4:14 PM GROUND HOST/HOSTESS C [place] MCV 89.9 81.2 - 95.1 fL 09/19/2023 4:14 PM GROUND HOST/HOSTESS C [place] MCH 28.1 26.0 - 32.0 pg 09/19/2023 4:14 PM GROUND HOST/HOSTESS [facility] [place] MCHC 31.3(L) 32.0 - 36.0 g/dL 09/19/2023 4:14 PM GROUND HOST/HOSTESS C [place] RDW 15.7(H) 11.8 - 15.6 % 09/19/2023 4:14 PM GROUND HOST/HOSTESS [facility] [place] Lymphocytes % 21.9 % 09/19/2023 4:14 PM GROUND HOST/HOSTESS C [place] Mid-size Cells 13.5 % 09/19/2023 4:14 PM GROUND HOST/HOSTESS [facility] [place] Granulocytes/Mason trophils 64.6 % 09/19/2023 4:14 PM GROUND HOST/HOSTESS [facility] [place] Lymphocytes Absolute 1.1 0.9 - 2.9 K/uL 09/19/2023 4:14 PM GROUND HOST/HOSTESS [facility] [place] MIDS Absolute 0.7 0.4 - 1.5 K/uL 09/19/2023 4:14 PM GROUND HOST/HOSTESS [facility] [place] Granulocytes/Mason trophils Absolute 3.3 1.7 - 7.0 K/uL 09/19/2023 4:14 PM GROUND HOST/HOSTESS [facility] [place] Blood (Blood, Venous) 09/19/2023 3:57 PM GROUND HOST/HOSTESS 09/19/2023 3:57 PM GROUND HOST/HOSTESS Adarsh Carpenter MD LAB BLOOD ORDERABLES Performing Organization Address City/State/[facility] Co de Phone Number [facility] [address] [place] [address] documented in this encounter Visit Diagnoses Diagnosis Scalp lump- Primary Preop examination Unspecified pre-operative examination Cystitis Unspecified cystitis Kidney stone Calculus of kidney Bladder stone Other calculus in bladder Neurogenic bladder Neurogenic bladder, NOS Multiple sclerosis (HCC) Multiple sclerosis History of pulmonary embolism Personal history of venous thrombosis and embolism Current use of detention anticoagulation Quadriparesis (HCC) Unspecified quadriplegia Seborrheic dermatitis of scalp Other seborrheic dermatitis documented in this encounter Additional Health Concerns Infection Onset Date Last Indicated Resolved Time MSSA 08/02/2023 08/02/2023 documented as of this encounter Care Teams Real Time Operator Relationship Specialty Start Date End Date Hali Soriano, MALTER OPERATOR [address] [place] [address] PCP - General Family Medicine 08/02/23 documented as of this encounter
--- OUTSIDE RECORDS SUMMARY | 2023-11-01 12:19 | XMS_ITS | Encounter Summary ---
Author Name Unknown Organization [facility] er Address [address] [place] [address] Care Team Providers Care Order Entry Specialist Name Role Phone Hali Soriano APRN Primary Care Provider Encounter Details Date Type Department Care Team (Latest Contact Info) Description 09/05/2023 Anticoagulation - Warfarin Visit [facility]/Internal Medicine - Third Floor [address] [place], [place] [address] Anna Betts, ROBERT [address] [facility] [place] [address] 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 current use of anticoagulant (Primary Dx); [...] often do you attend chur ch or taoist services? 1 to 4 times per year [...] Date Recorded PHQ-9 Total Score 1 04/24/2022 [facility] Answer [...] been changed. 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 documented in this encounter Plan of Treatment Upcoming Encounters Date Type Department Care Team (Late st Contact Info) Description 11/07/2023 10:40 AM COACH TOUR DRIVER Office Visit [place] [address] [address] Wade Donovan MD [address] [phone] documented as of this encounter Procedures Procedure [...] documented in this encounter Visit Diagnoses Diagnosis long term care administrator current use of anticoagulant- Primary Other pulmonary embolism without acute cor pulmonale, unspecified chronicity (HCC) documented in this encounter Additional Health Concerns Infection Onset Date Last Indicated Resolved Time MSSA 08/02/2023 08/02/2023 documented as of this encounter Care Teams Order Entry Specialist Relationship Specialty Start Date End Date Hali Soriano APRN [address] [place] [address] PCP - General Family Medicine 08/02/23 documented as of this encounter
--- OUTSIDE RECORDS SUMMARY | 2023-11-01 12:19 | XMS_ITS | Encounter Summary ---
Author Name Unknown Organization [facility] er Address [address] [place] [address] Care Team Providers Care Branch Associate Teller Name Role Phone Hali Soriano APRN Primary Care Provider Encounter Details Date Type Department Care Team (Latest Contact Info) Description 10/10/2023 Anticoagulation - Warfarin Visit SE [facility]/Internal Medicine - Third Floor [address] [place] [address] Dolores Cleary RN [address] [facility] [place] [address] bed bug exterminator current use of anticoagulant (Primary Dx); Other [...] often do you attend chur ch or mosque services? 1 to 4 times per year 09/19/2023 Do you belong to any clubs o r organizations such as worship groups, unions, fraternal [...] Date Recorded PHQ-9 Total Score 2 09/19/2023 [facility] - Occupational Stress Questionnaire [...] not mailed due to timeframe of return. EFACTION PLANT OPERATOR documented in this encounter Plan of Treatment Upcoming Encounters Date Type Department Care Team (Late st Contact Info) Description 11/07/2023 10:40 AM LIQUEFACTION PLANT OPERATOR Office Visit [place] [address] [address] [place] [address] [place] [phone] documented as of this encounter Procedures Procedure [...] documented in this encounter Visit Diagnoses Diagnosis FDC current use of anticoagulant- Primary Other pulmonary embolism without acute cor pulmonale, unspecified chronicity (HCC) documented in this encounter Additional Health Concerns Infection Onset Date Last Indicated Resolved Time MSSA 08/02/2023 08/02/2023 documented as of this encounter Care Teams Branch Associate Teller Relationship Specialty Start Date End Date Hali Soriano, WELT SEWER [address] [place] [phone] PCP - General Family Medicine 08/02/23 documented as of this encounter
--- OUTSIDE RECORDS SUMMARY | 2023-11-01 12:19 | XMS_ITS | Encounter Summary ---
Author Name Unknown Organization [facility] er Address [address] [place] [address] Care Team Providers Care Employee Development Specialist Name Role Phone Hali Soriano APRN Primary Care Provider Encounter Details Date Type Department Care Team (Latest Contact Info) Description 10/08/2023 Anticoagulation - Warfarin Visit [facility]/Internal Medicine - Third Floor [address] [place] [phone] Iliana Doyle, RN [address] [place] [address] [facility] current use of anticoagulant (Primary Dx); Other [...] often do you attend chur ch or adventist services? 1 to 4 times per year [...] PHQ-9 Total Score 2 09/19/2023 [facility] - Occupational Stress [...] Anticoagulation clinic with any questions or concerns [phone]. Patient's , Nelia (ROB), verbalized understanding of above instruction and above information. Risks and benefits of Warfarin hold discussed with patient without concern. ACC advised patient if she/he develops any signs or symptoms of shortness of breath, difficulty breathing, chest pain, neurological symptoms, redness, warmth, swelling or pain in an extremity, to seek medical attention as warranted. Plan approved by Elli Campbell PA-C COOKING OPERATOR documented in this encounter Plan of Treatment Upcoming Encounters Date Type Department Care Team (Late st Contact Info) Description 11/07/2023 10:40 AM HIDE COOKING OPERATOR Office Visit [address] [address] [place] [address] [place] [phone] documented as of this encounter Visit Diagnoses Diagnosis [facility] current use of anticoagulant- Primary Other pulmonary embolism without acute cor pulmonale, unspecified chronicity (HCC) documented in this encounter Additional Health Concerns Infection Onset Date Last Indicated Resolved Time MSSA 08/02/2023 08/02/2023 documented as of this encounter Care Teams Employee Development Specialist Relationship Specialty Start Date End Date Hali Soriano, MEDICINE TECHNOLOGIST [address] [place] [phone] PCP - General Family Medicine 08/02/23 documented as of this encounter
--- OUTSIDE RECORDS SUMMARY | 2023-11-01 12:19 | XMS_ITS | Encounter Summary ---
Author Name Unknown Organization [facility] er Address [address] [place] [address] Care Team Providers Care Assignment Clerk Name Role Phone Hali Soriano APRN Primary Care Provider Reason for Visit * Reason Onset Date Comments periprocedural recommendations 10/08/2023 Encounter Details Date Type Department Care Team (Late st Contact Info) Description 10/08/2023 Telephone [facility]/Internal Medicine - Third Floor [address] [place] [address] Elli Campbell PA-C 210 [place] [address] periprocedural recommendations Social History Tobacco [...] often do you attend chur ch or yarsanism services? 1 to 4 times per year 09/19/2023 Do you belong to any clubs o r organizations such as yarsanism groups, unions, fraternal [...] Date Recorded PHQ-9 Total Score 2 09/19/2023 [facility] - Occupational Stress Questionnaire Answer Date [...] slept in a 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 (including now)? No 09/19/2023 Sex and Gender [...] day of procedure. Please approve/amend. Thank you. LLMENT COORDINATOR documented in this encounter Plan of Treatment Upcoming Encounters Date Type Department Care Team (Late st Contact Info) Description 11/07/2023 10:40 AM ENROLLMENT COORDINATOR Office Visit [place] [address] [address] Wade Donovan MD [address] [phone] documented as of this encounter Visit Diagnoses Not on filedocumented in this encounter Additional Health Concerns Infection Onset Date Last Indicated Resolved Time MSSA 08/02/2023 08/02/2023 documented as of this encounter Care Teams Assignment Clerk Relationship Specialty Start Date End Date Hali Soriano APRN [address] [place] [phone] PCP - General Family Medicine 08/02/23 documented as of this encounter
--- OUTSIDE RECORDS SUMMARY | 2023-11-01 12:19 | XMS_ITS | Encounter Summary ---
Author Name Unknown Organization [facility] er Address [address] [place] [address] Care Team Providers Care Fire Protection Engineering Technician Name Role Phone Hali Soriano APRN Primary Care Provider Reason for Visit * Reason Comments Med Refill Encounter Details Date Type Department Care Team (Late st Contact Info) Description 09/23/2023 Refill [place] [address] [place] [address] Adarsh Carpenter MD [address] [place] [address] Cystitis Social History Tobacco Use Types Packs/Day [...] any clubs o r organizations such as religion groups, unions, fraternal [...] Date Recorded PHQ-9 Total Score 2 09/19/2023 [facility] Occupat ional Health - [...] prescription for Macrobid can be picked up. C PASTOR * Telephone Encounter - Adarsh Carpenter MD - 09/26/2023 8:14 AM CST I have sent a new prescription for Macrobid to his pharmacy. They can pick that up anytime this afternoon. C PASTOR * Telephone Encounter - Monique Epstein - 09/25/2023 4:35 PM CST Patient's spouse called regarding this request. Patient is taking this daily to get him by until his surgery on 10/16/22. Please advise if he can get an additional refill to get him through until his surgical date. C PASTOR * Telephone Encounter - Annie Phillips LPN [...] A DAY TO HELP PREVENT A UTI C PASTOR documented in this encounter Plan of Treatment Upcoming Encounters Date Type Department Care Team (Late st Contact Info) Description 11/07/2023 10:40 AM MUSIC PASTOR Office Visit [address] [address] Wade Donovan MD [address] [place] [phone] documented as of this encounter Visit Diagnoses Diagnosis Cystitis Unspecified cystitis documented in this encounter Additional Health Concerns Infection Onset Date Last Indicated Resolved Time MSSA 08/02/2023 08/02/2023 documented as of this encounter Care Teams Fire Protection Engineering Technician Relationship Specialty Start Date End Date Hali Soriano APRN [address] [place] [phone] PCP - General Family Medicine 08/02/23 documented as of this encounter
--- OUTSIDE RECORDS SUMMARY | 2023-11-01 12:19 | XMS_ITS | Encounter Summary ---
Author Name Unknown Organization [facility] er Address [address] [place] [address] Care Team Providers Care Sap Basis Administrator Name Role Phone Hali Soriano APRN Primary Care Provider Encounter Details Date Type Department Care Team (Latest Contact Info) Description 10/03/2023 Anticoagulation - Warfarin Visit SE [facility]/Internal Medicine - Third Floor [address] [place] [address] Anna Betts, ROBERT 210 [facility] [place] [address] 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 current use of anticoagulant [...] any clubs o r organizations such as muslim groups, unions, fraternal [...] Date Recorded PHQ-9 Total Score 2 09/19/2023 [facility] - Occupational Stress Questionnaire Answer Date [...] or slept in a long-term (including now)? No 09/19/2023 Sex and Gender [...] not mailed due to time of return. H TRUCK OPERATOR * Dolores Cleary RN - 10/03/2023 1:16 PM CST Patient's called to report that Dhruv's macrobid was stopped and he will start doxycycline ( class C interaction) x 14 days. Patient was instructed to check INR 10/11/23. H TRUCK OPERATOR documented in this encounter Plan of Treatment Upcoming Encounters Date Type Department Care Team (Late st Contact Info) Description 11/07/2023 10:40 AM LUNCH TRUCK OPERATOR Office Visit [place] [address] [place] [address] Wade Donovan MD 1705 [facility] 20 [place] [address] documented as of this encounter Procedures Procedure [...] in this encounter Visit Diagnoses Diagnosis exterminator helper current use of anticoagulant- Primary Other pulmonary embolism without acute cor pulmonale, unspecified chronicity (HCC) documented in this encounter Additional Health Concerns Infection Onset Date Last Indicated Resolved Time MSSA 08/02/2023 08/02/2023 documented as of this encounter Care Teams Sap Basis Administrator Relationship Specialty Start Date End Date Hali Soriano APRN [address] [place] [address] PCP - General Family Medicine 08/02/23 documented as of this encounter
--- OUTSIDE RECORDS SUMMARY | 2023-11-01 12:19 | XMS_ITS | Encounter Summary ---
Author Name Unknown Organization [facility] er Address [address] [place] [address] Care Team Providers Care Field Artillery Operations Specialist Name Role Phone Hali Soriano APRN Primary Care Provider Reason for Visit * Reason Comments Med Refill Encounter Details Date Type Department Care Team (Late st Contact Info) Description 10/15/2023 Refill [place] [address] [place] [phone] Adarsh Carpenter MD [address] [place] [address] Mixed hyperlipidemia Social History Tobacco Use Types [...] Recorded PHQ-9 Total Score 2 09/19/2023 [facility] of Occupat ional Health - [...] CST Please review in PCP absence. ER FILLER * Telephone Encounter - Georgie Case - 10/17/2023 9:17 AM CST Have patient scheduled for Physical ER FILLER * Telephone Encounter - Samantha Viveros LPN [...] 2 Encounters: 09/19/23 122/89 12/27/22 127/88 ER FILLER documented in this encounter Plan of Treatment Upcoming Encounters Date Type Department Care Team (Late st Contact Info) Description 11/07/2023 10:40 AM FILTER FILLER Office Visit [address] [address] Wade Donovan MD [address] [place] [phone] documented as of this encounter Visit Diagnoses Diagnosis Mixed hyperlipidemia documented in this encounter Additional Health Concerns Infection Onset Date Last Indicated Resolved Time MSSA 08/02/2023 08/02/2023 documented as of this encounter Care Teams Field Artillery Operations Specialist Relationship Specialty Start Date End Date Hali Soriano APRN [address] [place] [address] PCP - General Family Medicine 08/02/23 documented as of this encounter
--- OUTSIDE RECORDS SUMMARY | 2023-11-01 12:19 | XMS_ITS | Encounter Summary ---
Author Name Unknown Organization [facility] er Address [address] [place] [address] Care Team Providers Care Welt Slasher Name Role Phone Hali Soriano APRN Primary Care Provider Encounter Details Date Type Department Care Team (Late st Contact Info) Description 10/03/2023 Telephone [place] [address] [place] [address] Adarsh Carpenter MD [address] [place] [address] Social History Tobacco Use Types Packs/Day Years [...] How often do you attend chur or religion services? 1 to 4 times per year [...] Date Recorded PHQ-9 Total Score 2 09/19/2023 [facility] of Occupat ional Health - Occupational Stress [...] RN - 10/04/2023 3:56 PM CST Noted. ER MEAT * Telephone Encounter - Adarsh Carpenter MD - 10/04/2023 3:51 PM CST The patient recently had skull x-rays done to evaluate what turned up to be most likely a benign bony osseous lesion on the front of his scalp. The CT scan would further define this lesion but probably likely not change management specialist. It is appropriate for the patient to decline at this time. ER MEAT * Telephone Encounter - Sofia Denson RN - 10/04/2023 10:38 AM CST FYI only. ER MEAT * Telephone Encounter - Lalitha Pathak - 10/04/2023 10:28 AM CST Spouse called regarding possible CT scan. Pt not interested at this time. Requested that Dr. Carpenter know this as well. Advise. [phone]. ER MEAT * Telephone Encounter - Sofia Denson RN - 10/03/2023 11:25 AM CST Noted will await return call. ER MEAT documented in this encounter Plan of Treatment Upcoming Encounters Date Type Department Care Team (Late st Contact Info) Description 11/07/2023 10:40 AM GRADER MEAT Office Visit [address] [address] Wade Donovan MD [address] [place] [phone] documented as of this encounter Visit Diagnoses Not on filedocumented in this encounter Additional Health Concerns Infection Onset Date Last Indicated Resolved Time MSSA 08/02/2023 08/02/2023 documented as of this encounter Care Teams Welt Slasher Relationship Specialty Start Date End Date Hali Soriano APRN [address] [place] [address] PCP - General Family Medicine 08/02/23 documented as of this encounter
--- OUTSIDE RECORDS SUMMARY | 2023-11-01 12:19 | XMS_ITS | Encounter Summary ---
Author Name Unknown Organization [facility] er Address [address] [place] [address] Care Team Providers Care Botany Laboratory Assistant Name Role Phone Hali Soriano APRN Primary Care Provider Encounter Details Date Type Department Care Team (Late st Contact Info) Description 09/19/2023 4:30 PM COURIER Lab [place] [address] [place] [address] Social History Tobacco Use Types Packs/Day Years [...] any clubs o r organizations such as latter day groups, unions, [...] Date Recorded PHQ-9 Total Score 2 09/19/2023 [facility] of Occupat ional [facility] - Occupational Stress Questionnaire Answer [...] in a senior care (including now)? No 09/19/2023 Sex and Gender Information Value Date Recorded Sex Assigned at Not on file Gender Identity Not on file Sexual Orientation Not on file documented as of this encounter Plan of Treatment Upcoming Encounters Date Type Department Care Team (Late st Contact Info) Description 11/07/2023 10:40 AM COURIER Office Visit [address] [address] Wade Donovan MD [address] [place] [phone] documented as of this encounter Visit Diagnoses Not on filedocumented in this encounter Additional Health Concerns Infection Onset Date Last Indicated Resolved Time MSSA 08/02/2023 08/02/2023 documented as of this encounter Care Teams Botany Laboratory Assistant Relationship Specialty Start Date End Date Hali Soriano APRN [address] [place] [phone] PCP - General Family Medicine 08/02/23 documented as of this encounter
--- OUTSIDE RECORDS SUMMARY | 2023-11-01 12:19 | XMS_ITS | Encounter Summary ---
Author Name Unknown Organization [facility] er Address [address] [place] [address] Care Team Providers Care Remote Sensing Technologist Name Role Phone Hali Soriano APRN Primary Care Provider Reason for Visit * Reason Onset Date Comments OTHER 10/17/2023 Encounter Details Date Type Department Care Team (Late st Contact Info) Description 10/17/2023 Telephone [place] [address] [place] [address] Hali Soriano APRN [address] [place], [place] [phone] OTHER Social History Tobacco Use Types Packs/Day [...] often do you attend chur ch or religion services? 1 to 4 times [...] Date Recorded PHQ-9 Total Score 2 09/19/2023 [facility] of Occupat ional [facility] - Occupational Stress Questionnaire Answer Date [...] 9:49 AM CST Please advise on lab service order dispatcher request below. DULE CHECKER * Telephone Encounter - Georgie Case - 10/17/2023 9:10 AM CST Please order Pre Visit Labs. Scheduled annual 10/26, lab scheduled for 10/22 DULE CHECKER documented in this encounter Plan of Treatment Upcoming Encounters Date Type Department Care Team (Late st Contact Info) Description 11/07/2023 10:40 AM SCHEDULE CHECKER Office Visit [place] [address] [address] [place] [address] [place] [phone] documented as of this encounter Visit Diagnoses Not on filedocumented in this encounter Additional Health Concerns Infection Onset Date Last Indicated Resolved Time MSSA 08/02/2023 08/02/2023 documented as of this encounter Care Teams Remote Sensing Technologist Relationship Specialty Start Date End Date Hali Soriano, MONOTYPE SETTER [address] [place] [address] PCP - General Family Medicine 08/02/23 documented as of this encounter
--- OUTSIDE RECORDS SUMMARY | 2023-11-01 12:19 | XMS_ITS | Encounter Summary ---
Author Name Unknown Organization [facility] er Address [address] [place] [address] Care Team Providers Care Deli Cutter Slicer Name Role Phone Hali Soriano APRN Primary Care Provider Encounter Details Date Type Department Care Team (Late st Contact Info) Description 09/20/2023 Telephone [place] [address] [place] [address] Adarsh Carpenter MD [address] [place] [address] Social History Tobacco Use Types Packs/Day Years [...] How often do you attend chur or druze services? 1 to 4 times per year [...] Date Recorded PHQ-9 Total Score 2 09/19/2023 [facility] of Occupat ional Health - Occupational Stress [...] AM CST Pre-op, labs, EKG faxed to [facility]iology; fax [phone]. TY LIBRARY DIRECTOR * Telephone Encounter - Sofia Denson RN - 09/20/2023 9:40 AM CST Please fax referral to [facility] for xray with face sheet. Please fax preop, labs & EKG to [facility] with face sheet. TY LIBRARY DIRECTOR documented in this encounter Plan of Treatment Upcoming Encounters Date Type Department Care Team (Late st Contact Info) Description 11/07/2023 10:40 AM COUNTY LIBRARY DIRECTOR Office Visit [place] [address] [address] Wade Donovan MD 1705 [facility] 20 [place] [address] documented as of this encounter Visit Diagnoses Not on filedocumented in this encounter Additional Health Concerns Infection Onset Date Last Indicated Resolved Time MSSA 08/02/2023 08/02/2023 documented as of this encounter Care Teams Deli Cutter Slicer Relationship Specialty Start Date End Date Hali Soriano, WOUND CARE SPECIALIST [address] [place] [address] PCP - General Family Medicine 08/02/23 documented as of this encounter
--- OUTSIDE RECORDS SUMMARY | 2023-11-01 12:19 | XMS_ITS | Encounter Summary ---
Author Name Unknown Organization [facility] er Address [address] [place] [address] Care Team Providers Care Raw Finish Mill Operator Name Role Phone Hali Soriano APRN Primary Care Provider Encounter Details Date Type Department Care Team (Latest Contact Info) Description 09/19/2023 Anticoagulation - Warfarin Visit [facility]/Internal Medicine - Third Floor [address] [place] [phone] Iliana Doyle, RN [address] [place] [address] MCFP current use of anticoagulant (Primary Dx); Other [...] Recorded PHQ-9 Total Score 2 09/19/2023 [facility] - Occupational Stress Questionnaire Answer [...] or slept in a halfway (including now)? No 09/19/2023 Sex and Gender [...] a home liz. AVS mailed to patient. 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
--- OUTSIDE RECORDS SUMMARY | 2023-11-01 12:20 | XMS_ITS | Encounter Summary ---
Author Name Unknown Organization [facility] er Address [address] [place] [address] Care Team Providers Care Apprentice Pattern Maker Name Role Phone Hali Soriano APRN Primary Care Provider Encounter Details Date Type Department Care Team (Late st Contact Info) Description 08/24/2023 Orders Only [place] [address] [place] [address] Adarsh Carpenter MD [address] [place] [address] Cystitis (Primary Dx) Social History Tobacco Use [...] often do you attend chur ch or latter day services? 1 to 4 times per year 04/24/2022 Do you belong to any clubs o r organizations such as christian groups, unions, fraternal [...] Date Recorded PHQ-9 Total Score 1 04/24/2022 [facility] of Occupat ional Health - Occupational [...] in a senior living (including now)? No 04/24/2022 Sex and Gender Information Value Date Recorded Sex Assigned at Not on file Gender Identity Not on file Sexual Orientation Not on file documented as of this encounter Plan of Treatment Upcoming Encounters Date Type Department Care Team (Late st Contact Info) Description 11/07/2023 10:40 AM BUN ICER Office Visit [address] [address] Wade Donovan MD [address] [place] [phone] Scheduled Orders Name Type Priority Associated Diagnoses [...] documented as of this encounter Care Teams Apprentice Pattern Maker Relationship Specialty Start Date End Date Hali Soriano APRN [address] [place] [address] PCP - General Family Medicine 08/02/23 documented as of this encounter
--- OUTSIDE RECORDS SUMMARY | 2023-11-01 12:20 | XMS_ITS | Encounter Summary ---
Author Name Unknown Organization [facility] er Address [address] [place] [address] Care Team Providers Care Retail Sales Clerk Name Role Phone Hali Soriano APRN Primary Care Provider Encounter Details Date Type Department Care Team (Late st Contact Info) Description 08/04/2023 Orders Only [place] [address] [place] [address] Adarsh Carpenter MD [address] [place] [address] Social History Tobacco Use Types Packs/Day Years [...] any clubs o r organizations such as yazidism groups, unions, fraternal [...] Score 1 04/24/2022 [facility] - Occupational Stress Questionnaire Answer [...] st Contact Info) Description 11/07/2023 10:40 AM PICK PULLING MACHINE TENDER Office Visit [address] [address] Wade Donovan MD [address] [place] [phone] documented as of this encounter Visit Diagnoses Not on filedocumented in this encounter Additional Health Concerns Infection Onset Date Last Indicated Resolved Time MSSA 08/02/2023 08/02/2023 documented as of this encounter Care Teams Retail Sales Clerk Relationship Specialty Start Date End Date Hali Soriano APRN [address] [place] [address] PCP - General Family Medicine 08/02/23 documented as of this encounter
--- OUTSIDE RECORDS SUMMARY | 2023-11-01 12:20 | XMS_ITS | Encounter Summary ---
Author Name Unknown Organization [facility] er Address [address] [place] [address] Care Team Providers Care Skin Care Consultant Name Role Phone Hali Soriano APRN Primary Care Provider Encounter Details Date Type Department Care Team (Late st Contact Info) Description 08/16/2023 1:00 PM FUR REMODELER Lab [place] [address] [place] [address] Frequency of micturition Social History Tobacco Use [...] Date Recorded PHQ-9 Total Score 1 04/24/2022 [facility] of Occupat ional Health - [...] slept in a penitentiary (including now)? No 04/24/2022 Sex and Gender Information Value Date Recorded Sex Assigned at Not on file Gender Identity Not on file Sexual Orientation Not on file documented as of this encounter Plan of Treatment Upcoming Encounters Date Type Department Care Team (Late st Contact Info) Description 11/07/2023 10:40 AM FUR REMODELER Office Visit [address] [address] Wade Donovan MD [address] [place] [phone] documented as of this encounter Procedures Procedure Name Priority Date/Time Associated Diagnosis Comments URINALYSIS-MICROSCOP IC EXAM (REFLEXED) Routine 08/16/2023 1:09 PM FUR REMODELER Frequency of micturition URINALYSIS WITH REFLEX MICROSCOPIC Routine 08/16/2023 1:09 PM FUR REMODELER Frequency of micturition URINE CULTURE Routine 08/16/2023 1:09 PM FUR REMODELER Frequency of micturition documented in this encounter Results * (ABNORMAL) Urinalysis-Microscopic Exam (08/16/2023 1:09 PM FUR REMODELER) Casts, urine NONE SEEN 0-2 Hyaline /lpf 08/17/2023 1:43 PM FUR REMODELER [facility] Significant casts, urine NONE SEEN None Seen /lpf 08/17/2023 1:43 PM FUR REMODELER [facility] RBC, Urine 4-10(A) 0 - 3 /hpf 08/17/2023 1:43 PM FUR REMODELER [facility] WBC, Urine >100(A) /hpf 08/17/2023 1:43 PM FUR REMODELER [facility] Comment: Male: ?? 0-3/hpf Female: 0-10/hpf Squamous Epithelial, Urine NONE SEEN Few /lpf 08/17/2023 1:43 PM FUR REMODELER [facility] Trans Epithelial, Urine NONE SEEN 0 - 3 /hpf 08/17/2023 1:43 PM FUR REMODELER [facility] Renal Tubular Cells, Urine NONE SEEN 0 - 1 /hpf 08/17/2023 1:43 PM FUR REMODELER [facility] Bacteria, Urine 2+(A) None Seen - Few /hpf 08/17/2023 1:43 PM FUR REMODELER [facility] 08/16/2023 1:09 PM FUR REMODELER 08/17/2023 12:13 PM FUR REMODELER Adarsh Carpenter MD LAB URINE ORDERABLES Performing Organization Address [facility]/ZIP Co de Phone Number [facility] [address] [place] [address] * (ABNORMAL) Urine culture (08/16/2023 1:09 PM FUR REMODELER) Urine Culture Enterococcus faecalis >100,000 cfu/ml (A) 08/19/2023 9:49 AM FUR REMODELER [facility] Urine (Saenz Insert) 08/16/2023 1:09 PM FUR REMODELER 08/17/2023 12:13 PM FUR REMODELER Comment:Urine Culture Narrative Organism Antibiotic Method Susceptibility Enterococcus faecalis Ampicillin <=2 mcg/mL: Susceptible Enterococcus faecalis Ciprofloxacin 2 mcg/mL: Intermediate Enterococcus faecalis Nitrofurantoin <=32 mcg/mL: Susceptible Enterococcus faecalis Penicillin 2 mcg/mL: Susceptible Enterococcus faecalis Vancomycin 2 mcg/mL: Susceptible Adarsh Carpenter MD LAB MICROBIOLOGY - G ENERAL ORDERABLES Performing Organization Address [facility]/ZIP Co de Phone Number [facility] [address] [place] [address] * (ABNORMAL) Urinalysis with reflex microscopic (08/16/2023 1:09 PM FUR REMODELER) Type CLEAN CATCH 08/16/2023 1:18 PM FUR REMODELER [facility] Color, Urine YELLOW YELLOW 08/16/2023 1:18 PM FUR REMODELER [facility] [place] Clarity, Urine CLEAR CLEAR 08/16/2023 1:18 PM FUR REMODELER [facility] [place] Glucose, Urine NEGATIVE NEGATIVE mg/dL 08/16/2023 1:18 PM FUR REMODELER [facility] [place] Bilirubin, Urine NEGATIVE NEGATIVE 08/16/2023 1:18 PM FUR REMODELER [facility] [place] Ketones, Urine TRACE(A) NEGATIVE mg/dL 08/16/2023 1:18 PM FUR REMODELER [facility] [place] Specific [place], Urine 1.025 1.000 ->=1.030 08/16/2023 1:18 PM FUR REMODELER [facility] [place] Blood, Urine SMALL(A) NEGATIVE 08/16/2023 1:18 PM FUR REMODELER [facility] [place] pH, Urine 5.5 5.0 - 7.0 08/16/2023 1:18 PM FUR REMODELER C [place] Protein, Urine 30(A) NEGATIVE-TRA CE mg/dL 08/16/2023 1:18 PM FUR REMODELER [facility] Urobilinogen, Urine 1.0 0.2 - 1.0 E.U./dL 08/16/2023 1:18 PM FUR REMODELER [facility] [place] Nitrite, Urine NEGATIVE NEGATIVE 08/16/2023 1:18 PM FUR REMODELER [facility] Leukocytes, Urine SMALL(A) NEGATIVE 08/16/2023 1:18 PM FUR REMODELER [facility] Urine (Saenz Insert) 08/16/2023 1:09 PM FUR REMODELER 08/16/2023 1:10 PM FUR REMODELER Adarsh Carpenter MD LAB URINE ORDERABLES [facility] [address] [place] [address] documented in this encounter Visit Diagnoses Diagnosis Frequency of micturition Urinary frequency documented in this encounter Additional Health Concerns Infection Onset Date Last Indicated Resolved Time MSSA 08/02/2023 08/02/2023 documented as of this encounter Care Teams Skin Care Consultant Relationship Specialty Start Date End Date Hali Soriano, DESIGN COORDINATOR [address] [place] [phone] PCP - General Family Medicine 08/02/23 documented as of this encounter
--- OUTSIDE RECORDS SUMMARY | 2023-11-01 12:20 | XMS_ITS | Encounter Summary ---
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 1 to 4 times per year [...] Date Recorded PHQ-9 Total Score 1 04/24/2022 [facility] Questionnaire Answer [...] st Contact Info) Description 11/07/2023 10:40 AM REGIONAL MERCHANDISING MANAGER Office Visit [place] [address] [address] Wade Donovan MD [address] [place] [phone] documented as of this encounter Procedures Procedure [...] in this encounter Visit Diagnoses Diagnosis exterminator current use of anticoagulant- Primary Other pulmonary embolism without acute cor pulmonale, unspecified chronicity (HCC) documented in this encounter Care Teams Failure Analysis Technician Relationship Specialty Start Date End Date Wade Donovan MD [address] [place] [address] PCP - General 07/19/23 08/01/23 documented as of this encounter
--- OUTSIDE RECORDS SUMMARY | 2023-11-01 12:20 | XMS_ITS | Encounter Summary ---
Author Name Unknown Organization [facility] er Address [address] [place] [address] Care Team Providers Care Orchid Worker Name Role Phone Hali Soriano APRN Primary Care Provider Encounter Details Date Type Department Care Team (Latest Contact Info) Description 08/24/2023 Anticoagulation - Warfarin Visit [facility]/Internal Medicine - Third Floor [address] [place] [address] Dolores Cleary RN 210 [place] [address] salvage determiner current use of anticoagulant (Primary Dx); Other [...] often do you attend chur ch or yazdanism services? 1 to 4 times per year 04/24/2022 Do you belong to any clubs o r organizations such as baptist groups, unions, fraternal [...] 04/24/2022 [facility] Questionnaire Answer Date [...] next INR. AVS mailed to the patient. MARKER documented in this encounter Plan of Treatment Upcoming Encounters Date Type Department Care Team (Late st Contact Info) Description 11/07/2023 10:40 AM LENS MARKER Office Visit [place] [address] [address] Wade Donovan MD [address] [phone] documented as of this encounter Procedures Procedure [...] documented in this encounter Visit Diagnoses Diagnosis salvage determiner current use of anticoagulant- Primary Other pulmonary embolism without acute cor pulmonale, unspecified chronicity (HCC) documented in this encounter Additional Health Concerns Infection Onset Date Last Indicated Resolved Time MSSA 08/02/2023 08/02/2023 documented as of this encounter Care Teams Orchid Worker Relationship Specialty Start Date End Date Hali Soriano APRN [address] [place] [address] PCP - General Family Medicine 08/02/23 documented as of this encounter
--- OUTSIDE RECORDS SUMMARY | 2023-11-01 12:20 | XMS_ITS | Encounter Summary ---
Author Name Unknown Organization [facility] er Address [address] [place] [address] Care Team Providers Care Cushion Filler Name Role Phone Hali Soriano APRN Primary Care Provider Encounter Details Date Type Department Care Team (Latest Contact Info) Description 08/08/2023 Anticoagulation - Warfarin Visit [facility]/Internal Medicine - Third Floor [address] [place] [phone] Gregoria Bustamante, ROBERT [address] [facility] [place] [address] terminal operations supervisor current use of anticoagulant (Primary Dx) Social [...] often do you attend chur ch or denominational services? 1 to 4 times [...] Date Recorded PHQ-9 Total Score 1 04/24/2022 [facility] of Occupat ional [...] slept in a long-term (including now)? No 04/24/2022 Sex and Gender [...] next INR. AVS mailed to the patient. Y DRIER OPERATOR documented in this encounter Plan of Treatment Upcoming Encounters Date Type Department Care Team (Late st Contact Info) Description 11/07/2023 10:40 AM SPRAY DRIER OPERATOR Office Visit [address] [address] Wade Donovan MD [address] [place] [phone] documented as of this encounter Procedures Procedure [...] this encounter Visit Diagnoses Diagnosis terminal operations supervisor current use of anticoagulant- Primary documented in this encounter Additional Health Concerns Infection Onset Date Last Indicated Resolved Time MSSA 08/02/2023 08/02/2023 documented as of this encounter Care Teams Cushion Filler Relationship Specialty Start Date End Date Hali Soriano APRN [address] [place] [phone] PCP - General Family Medicine 08/02/23 documented as of this encounter
--- OUTSIDE RECORDS SUMMARY | 2023-11-01 12:20 | XMS_ITS | Encounter Summary ---
Author Name Unknown Organization [facility] er Address [address] [place] [address] Care Team Providers Care Senior Sql Dba Name Role Phone Hali Soriano APRN Primary Care Provider Encounter Details Date Type Department Care Team (Late st Contact Info) Description 08/02/2023 Telephone [place] [address] [place] [address] Adarsh Carpenter MD [address] [place] [address] Social History Tobacco Use Types Packs/Day Years [...] How often do you attend chur or shinto services? 1 to 4 times per year [...] Date Recorded PHQ-9 Total Score 1 04/24/2022 [facility] - Occupational Stress Questionnaire Answer Date [...] a [place] health care facility (including now)? No 04/24/2022 Sex and Gender Information Value Date Recorded Sex Assigned at Not on file Gender Identity Not on file Sexual Orientation Not on file documented as of this encounter Miscellaneous Notes * Telephone Encounter - Adarsh Carpenter MD - 08/07/2023 3:27 PM CST Noted PATIENT SERVICES * Telephone Encounter - Sofia Denson RN - 08/07/2023 3:24 PM CST Patient's informed, he does have an appointment with urology on 08/15/23. PATIENT SERVICES * Telephone Encounter - Adarsh Carpenter MD - 08/07/2023 3:02 PM CST I have placed an order for both a UA and UC to be done in approximately 3 days after he is off antibiotics should be good. Did Dhruv get a Urology consult set up? PATIENT SERVICES * Telephone Encounter - Sofia Denson RN - 08/07/2023 11:47 AM CST They stopped in today wanting info on his most recent Urine culture. RN reviewed and it looks like it is the same bacteria that was present in his last urine culture. Patients wanted to know if you want her to drop off another urine sample 3 days after stopping the antibiotic? PATIENT SERVICES * Telephone Encounter - Sofia Denson RN - 08/02/2023 1:13 PM CDT Please let Dr. Carpenter know the urology clinic information when she calls back. * Telephone Encounter - Vidhya Bain LPN - 08/02/2023 11:14 AM CDT When Anyi stopped in to drop off Hans's urine today she pulled the TYPE MAPPER to explain it. She statedthat she would [...] st Contact Info) Description 11/07/2023 10:40 AM RN PATIENT SERVICES Office Visit [place] [address] [address] Wade Donovan MD [address] [phone] documented as of this encounter Results * (ABNORMAL) Urine culture (08/16/2023 1:09 PM RN PATIENT SERVICES) Urine Culture Enterococcus faecalis >100,000 cfu/ml (A) 08/19/2023 9:49 AM RN PATIENT SERVICES [facility] Urine (Saenz Insert) 08/16/2023 1:09 PM RN PATIENT SERVICES 08/17/2023 12:13 PM RN PATIENT SERVICES Comment:Urine Culture Narrative Organism Antibiotic Method Susceptibility Enterococcus faecalis Ampicillin <=2 mcg/mL: Susceptible Enterococcus faecalis Ciprofloxacin 2 mcg/mL: Intermediate Enterococcus faecalis Nitrofurantoin <=32 mcg/mL: Susceptible Enterococcus faecalis Penicillin 2 mcg/mL: Susceptible Enterococcus faecalis Vancomycin 2 mcg/mL: Susceptible Adarsh Carpenter MD LAB MICROBIOLOGY - [facility] ORDERABLES [facility] [address] [place] [phone] * (ABNORMAL) Urinalysis with reflex microscopic (08/16/2023 1:09 PM RN PATIENT SERVICES) Type CLEAN CATCH 08/16/2023 1:18 PM RN PATIENT SERVICES [facility] Color, Urine YELLOW YELLOW 08/16/2023 1:18 PM RN PATIENT SERVICES [facility] Clarity, Urine CLEAR CLEAR 08/16/2023 1:18 PM RN PATIENT SERVICES [facility] Glucose, Urine NEGATIVE NEGATIVE mg/dL 08/16/2023 1:18 PM RN PATIENT SERVICES [facility] Bilirubin, Urine NEGATIVE NEGATIVE 08/16/2023 1:18 PM RN PATIENT SERVICES [facility] Ketones, Urine TRACE(A) NEGATIVE mg/dL 08/16/2023 1:18 PM RN PATIENT SERVICES [facility] Specific [place], Urine 1.025 1.000 ->=1.030 08/16/2023 1:18 PM RN PATIENT SERVICES [facility] Blood, Urine SMALL(A) NEGATIVE 08/16/2023 1:18 PM RN PATIENT SERVICES [facility] pH, Urine 5.5 5.0 - 7.0 08/16/2023 1:18 PM RN PATIENT SERVICES [facility] Protein, Urine 30(A) NEGATIVE-TRA CE mg/dL 08/16/2023 1:18 PM RN PATIENT SERVICES [facility] Urobilinogen, Urine 1.0 0.2 - 1.0 E.U./dL 08/16/2023 1:18 PM RN PATIENT SERVICES [facility] Nitrite, Urine NEGATIVE NEGATIVE 08/16/2023 1:18 PM RN PATIENT SERVICES [facility] Leukocytes, Urine SMALL(A) NEGATIVE 08/16/2023 1:18 PM RN PATIENT SERVICES [facility] Urine (Saenz Insert) 08/16/2023 1:09 PM RN PATIENT SERVICES 08/16/2023 1:10 PM RN PATIENT SERVICES Adarsh Carpenter MD LAB URINE ORDERABLES [facility] [address] [place] [address] documented in this encounter Visit Diagnoses Diagnosis Frequency of micturition- Primary Urinary frequency documented in this encounter Additional Health Concerns Infection Onset Date Last Indicated Resolved Time MSSA 08/02/2023 08/02/2023 documented as of this encounter Care Teams Senior Sql Dba Relationship Specialty Start Date End Date Hali Soriano, LITHOGRAPHIC GENERAL WORKER [address] [place] [address] PCP - General Family Medicine 08/02/23 documented as of this encounter
--- OUTSIDE RECORDS SUMMARY | 2023-11-01 12:20 | XMS_ITS | Encounter Summary ---
Author Name Unknown Organization [facility] er Address [address] [place] [address] Care Team Providers Care Asw/Asuw Tactical Air Controller Name Role Phone Hali Soriano APRN Primary Care Provider Reason for Visit * Reason Onset Date Comments UA results 08/17/2023 Encounter Details Date Type Department Care Team (Late st Contact Info) Description 08/17/2023 Telephone [place] [address] [place] [address] Adarsh Carpenter MD [address] [place] [address] UA results Social History Tobacco Use Types [...] any clubs o r organizations such as taoist groups, unions, fraternal [...] Date Recorded PHQ-9 Total Score 1 04/24/2022 [facility] Occupational Stress Questionnaire [...] slept in a residential (including now)? No 04/24/2022 Sex and Gender [...] the urine culture when it comes back. RANCE LICENSING SUPERVISOR * Telephone Encounter - Makeda Montoya - 08/17/2023 4:41 PM CST Labs are back, please call pt to discuss. RANCE LICENSING SUPERVISOR * Telephone Encounter - Lalitha Pathak - 08/17/2023 4:00 PM CST Spouse, Nelia, , inquiring about status of UA, culture, results PSR informed culture is still in process. Still wanted to speak w/nursing. Advise. RANCE LICENSING SUPERVISOR documented in this encounter Plan of Treatment Upcoming Encounters Date Type Department Care Team (Late st Contact Info) Description 11/07/2023 10:40 AM INSURANCE LICENSING SUPERVISOR Office Visit [place] [address] [address] Wade Donovan MD 1705 [facility] 20 [place] [address] documented as of this encounter Visit Diagnoses Diagnosis Cystitis- Primary Unspecified cystitis documented in this encounter Additional Health Concerns Infection Onset Date Last Indicated Resolved Time MSSA 08/02/2023 08/02/2023 documented as of this encounter Care Teams Asw/Asuw Tactical Air Controller Relationship Specialty Start Date End Date Hali Soriano APRN [address] [place] [address] PCP - General Family Medicine 08/02/23 documented as of this encounter
--- OUTSIDE RECORDS SUMMARY | 2023-11-01 12:20 | XMS_ITS | Encounter Summary ---
Author Name Unknown Organization [facility] er Address [address] [place] [address] Care Team Providers Care Ink Maker Name Role Phone Hali Soriano APRN Primary Care Provider Encounter Details Date Type Department Care Team (Late st Contact Info) Description 08/21/2023 Telephone [place] [address] [place] [address] Adarsh Carpenter MD [address] [place] [address] Social History Tobacco Use Types Packs/Day Years [...] How often do you attend chur or christianity services? 1 to 4 times [...] Date Recorded PHQ-9 Total Score 1 04/24/2022 [facility] - Occupational Stress Questionnaire [...] or slept in a fpc (including now)? No 04/24/2022 Sex and Gender Information Value Date Recorded Sex Assigned at Not on file Gender Identity Not on file Sexual Orientation Not on file documented as of this encounter Miscellaneous Notes * Telephone Encounter - Vidhya Bain LPN - 08/22/2023 11:19 AM CST The facility was called and Dr. Carpenter's cell phone number was given. STRY OPERATIONS INVESTIGATOR documented in this encounter Plan of Treatment Upcoming Encounters Date Type Department Care Team (Late st Contact Info) Description 11/07/2023 10:40 AM INDUSTRY OPERATIONS INVESTIGATOR Office Visit [address] [address] Wade Donovan MD [address] [place] [phone] documented as of this encounter Visit Diagnoses Not on filedocumented in this encounter Additional Health Concerns Infection Onset Date Last Indicated Resolved Time MSSA 08/02/2023 08/02/2023 documented as of this encounter Care Teams Ink Maker Relationship Specialty Start Date End Date Hali Soriano APRN [address] [place] [phone] PCP - General Family Medicine 08/02/23 documented as of this encounter
--- OUTSIDE RECORDS SUMMARY | 2023-11-01 12:20 | XMS_ITS | Encounter Summary ---
Author Name Unknown Organization [facility] er Address [address] [place] [address] Care Team Providers Care Fish Protector Name Role Phone Hali Soriano APRN Primary Care Provider Encounter Details Date Type Department Care Team (Late st Contact Info) Description 08/02/2023 10:30 AM CDT Lab [place] [address] [place] [address] Frequency of micturition (Primary Dx); Abnormal urine [...] Total Score 1 04/24/2022 [facility] - Occupational Stress Questionnaire Answer Date [...] st Contact Info) Description 11/07/2023 10:40 AM EXECUTIVE VICE PRESIDENT AND CHIEF OPERATING OFFICER Office Visit [address] [address] Wade Donovan MD [address] [place] [phone] documented as of this encounter Procedures Procedure [...] 0-2 Hyaline /lpf 08/03/2023 2:[address] [facility] Significant casts, urine NONE SEEN None Seen /lpf 08/03/2023 2:[address] [facility] RBC, Urine 0-3 0 - 3 /hpf 08/03/2023 2:14 PM [facility] WBC, Urine 51-100(A) /hpf 08/03/2023 2:14 PM [facility] Comment: Male: ?? 0-3/hpf Female: 0-10/hpf Squamous Epithelial, Urine FEW Few /lpf 08/03/2023 2:[address] [facility] Trans Epithelial, Urine NONE SEEN 0 - 3 /hpf 08/03/2023 2:14 PM [facility] Renal Tubular Cells, Urine NONE SEEN 0 - 1 /hpf 08/03/2023 2:14 PM [facility] Bacteria, Urine 1+(A) None Seen - Few /hpf 08/03/2023 2:14 PM [facility] Miscellaneous, urine SEE BELOW 08/03/2023 2:14 PM [facility] Comment: Rare Calcium Oxalate Crystals Present. 08/02/2023 10:3 8 AM CDT 08/03/2023 12:28 PM CDT Adarsh Carpenter MD LAB URINE ORDERABLES [facility] [address] [place] [id number] * (ABNORMAL) Urinalysis with reflex microscopic (lab staff release/collect) (08/02/2023 10:38 AM CDT) Type CATH 08/02/2023 10:42 AM CDT [facility] Color, Urine YELLOW YELLOW 08/02/2023 10:42 AM CDT [facility] Clarity, Urine CLEAR CLEAR 08/02/2023 10:42 AM CDT [facility] Glucose, Urine NEGATIVE NEGATIVE mg/dL 08/02/2023 10:42 AM CDT [facility] Bilirubin, Urine NEGATIVE NEGATIVE 08/02/2023 10:42 AM CDT [facility] Ketones, Urine NEGATIVE NEGATIVE mg/dL 08/02/2023 10:42 AM CDT [facility] Specific [place], Urine 1.025 1.000 ->=1.030 08/02/2023 10:42 AM CDT [facility] Blood, Urine LARGE(A) NEGATIVE 08/02/2023 10:42 AM CDT [facility] pH, Urine 5.5 5.0 - 7.0 08/02/2023 10:42 AM CDT [facility] Protein, Urine 100(A) NEGATIVE-TRA CE mg/dL 08/02/2023 10:42 AM CDT [facility] Urobilinogen, Urine 0.2 0.2 - 1.0 E.U./dL 08/02/2023 10:42 AM CDT [facility] Nitrite, Urine POSITIVE(A) NEGATIVE 08/02/2023 10:42 AM CDT [facility] Leukocytes, Urine LARGE(A) NEGATIVE 08/02/2023 10:42 AM CDT [facility] Urine (Urine, Catheter) 08/02/2023 10:38 AM CDT 08/02/2023 10:39 AM CDT Adarsh Carpenter MD LAB URINE ORDERABLES [facility] [address] [place] [address] * (ABNORMAL) Urine culture (08/02/2023 10:34 AM CDT) Urine Culture Staphylococcus aureus >100,000 cfu/ml Use oxacillin interpretation to predict results for anti-staphylococc al beta-lactam antibiotics (except ceftaroline). (A) 08/04/2023 8:[address] [facility] Urine (Saenz Insert) 08/02/2023 10:34 AM CDT 08/03/2023 12:05 PM CDT Comment:Urine Culture Narrative Organism Antibiotic Method Susceptibility Staphylococcus aureus Nitrofurantoin <=32 mcg/mL: Susceptible Staphylococcus aureus Oxacillin <=0.25 mcg/mL: Susceptible Staphylococcus aureus Tetracycline <=4 mcg/mL: Susceptible Staphylococcus aureus Trimeth/Sulfa <=0.5/9.5 mcg/mL: Susceptible Adarsh Carpenter MD LAB MICROBIOLOGY - G ENERAL ORDERABLES [facility] [address] [place] [address] documented in this encounter Visit Diagnoses Diagnosis Frequency of micturition- Primary Urinary frequency Abnormal urine odor Other nonspecific finding on examination of urine History of UTI documented in this encounter Care Teams Fish Protector Relationship Specialty Start Date End Date Hali Soriano, C 13 CATAPULT OPERATOR [address] [place] [address] PCP - General Family Medicine 08/02/23 documented as of this encounter
--- OUTSIDE RECORDS SUMMARY | 2023-11-01 12:20 | XMS_ITS | Encounter Summary ---
Author Name Unknown Organization [facility] er Address [address] [place] [address] Care Team Providers Care Analytical Chemistry Teacher Name Role Phone Hali Soriano APRN Primary Care Provider Encounter Details Date Type Department Care Team (Late st Contact Info) Description 08/02/2023 Orders Only [place] [address] [place] [address] Adarsh Carpenter MD [address] [place] [address] Cystitis (Primary Dx); Frequency of micturition Social [...] often do you attend chur ch or christian services? 1 to 4 times per year [...] PHQ-9 Total Score 1 04/24/2022 [facility] - Occupational Stress Questionnaire Answer [...] st Contact Info) Description 11/07/2023 10:40 AM MODERATE NEEDS TEACHER Office Visit [address] [address] Wade Donovan MD [address] [place] [phone] Scheduled Orders Name Type Priority Associated Diagnoses Orde r Schedule Urinalysis with reflex microscopic Lab Routine Frequency of micturition Expected: 08/02/2023, Expires: 08/02/2024 Urine culture Microbiology Routine Frequency of micturition Expected: 08/02/2023, Expires: 08/02/2024 documented as of this encounter Visit Diagnoses Diagnosis Cystitis- Primary Unspecified cystitis Frequency of micturition Urinary frequency documented in this encounter Care Teams Analytical Chemistry Teacher Relationship Specialty Start Date End Date Hali Soriano APRN [address] [place] [phone] PCP - General Family Medicine 08/02/23 documented as of this encounter
--- OUTSIDE RECORDS SUMMARY | 2023-11-01 12:20 | XMS_ITS | Encounter Summary ---
Author Name Unknown Organization [facility] er Address [address] [place] [address] Care Team Providers Care Physical Therapy Instructor Name Role Phone Adarsh Carpenter MD Primary Care Provider [phone] Encounter Details Date Type Department Care Team (Latest Contact Info) Description 07/18/2023 Anticoagulation - Warfarin Visit [facility]/Internal Medicine - Third Floor [address] [place] [phone] Gregoria Bustamante, ROBERT [address] [place] [address] terminal gauger current use of anticoagulant (Primary Dx) Social [...] How often do you attend chur or worship services? 1 to 4 times per year [...] Date Recorded PHQ-9 Total Score 1 04/24/2022 [facility] - Occupational Stress Questionnaire Answer Date [...] or slept in a mcfp (including now)? No 04/24/2022 Sex and Gender [...] is a home liz. AVS sent through [employer]. documented in this encounter Plan of Treatment Upcoming Encounters Date Type Department Care Team (Late st Contact Info) Description 11/07/2023 10:40 AM IMPORT/EXPORT CLERK Office Visit [place] [address] [address] Wade Donovan MD [address] [phone] documented as of this encounter Procedures Procedure [...] Diagnosis longterm current use of anticoagulant- Primary documented in this encounter Care Teams Physical Therapy Instructor Relationship Specialty Start Date End Date Adarsh Carpenter MD [address] [phone] PCP - General 05/07/18 07/18/23 documented as of this encounter
--- OUTSIDE RECORDS SUMMARY | 2023-11-01 12:21 | XMS_ITS | Encounter Summary ---
Author Name Unknown Organization [facility] er Address [address] [place] [address] Care Team Providers Care Pipefitter Welder Name Role Phone Adarsh Carpenter MD Primary Care Provider [phone] Encounter Details Date Type Department Care Team (Latest Contact Info) Description 07/04/2023 Anticoagulation - Warfarin Visit [facility]/Internal Medicine - Third Floor [address] [place] [address] Iliana Doyle, RN [address] [place] [address] manager terminal current use of anticoagulant (Primary Dx); [...] Date Recorded PHQ-9 Total Score 1 04/24/2022 [facility] - Occupational Stress Questionnaire Answer [...] st Contact Info) Description 11/07/2023 10:40 AM SOLAR SYSTEMS DESIGNER Office Visit [place] [address] [address] Wade Donovan MD [address] [phone] documented as of this encounter Procedures Procedure [...] documented in this encounter Visit Diagnoses Diagnosis snf current use of anticoagulant- Primary Other pulmonary embolism without acute cor pulmonale, unspecified chronicity (HCC) documented in this encounter Additional Health Concerns Infection Onset Date Last Indicated Resolved Time MSSA 06/19/2023 07/04/2023 07/17/2023 2:29 PM CDT documented as of this encounter Care Teams Pipefitter Welder Relationship Specialty [place] [address] [place] [phone] PCP - General 05/07/18 07/18/23 documented as of this encounter
--- OUTSIDE RECORDS SUMMARY | 2023-11-01 12:21 | XMS_ITS | Encounter Summary ---
Author Name Unknown Organization [facility] er Address [address] [place] [address] Care Team Providers Care Assembler And Tester Electronics Name Role Phone Adarsh Carpenter MD Primary Care Provider [phone] Encounter Details Date Type Department Care Team (Late st Contact Info) Description 07/06/2023 Orders Only [place] [address] [place] [address] aHli Soriano, PATIENT RESOURCE COORDINATOR [address] [place] [address] Acute cystitis with hematuria (Primary Dx) Social [...] often do you attend chur ch or quaker services? 1 to 4 times per year 04/24/2022 Do you belong to any clubs o r organizations such as rastafari groups, unions, fraternal [...] 1 04/24/2022 [facility] [...] st Contact Info) Description 11/07/2023 10:40 AM BOX COVERER HAND Office Visit [address] [address] Wade Donovan MD 1705 [facility] 20 [place] [address] documented as of this encounter Visit Diagnoses Diagnosis Acute cystitis with hematuria- Primary documented in this encounter Additional Health Concerns Infection Onset Date Last Indicated Resolved Time MSSA 06/19/2023 07/04/2023 07/17/2023 2:29 PM CDT documented as of this encounter Care Teams Assembler And Tester Electronics Relationship Specialty Start Date End Date Adarsh Carpenter MD [address] [place] [address] PCP - General 05/07/18 07/18/23 documented as of this encounter
--- OUTSIDE RECORDS SUMMARY | 2023-11-01 12:21 | XMS_ITS | Encounter Summary ---
Author Name Unknown Organization [facility] er Address [address] [place] [address] Care Team Providers Care Manufacturing Technology Analyst Name Role Phone Adarsh Carpenter MD Primary Care Provider [phone] Reason for Visit * Reason Onset Date Comments letter for timeshare 06/29/2023 Encounter Details Date Type Department Care Team (Late st Contact Info) Description 06/29/2023 Telephone [place] [address] [place] [address] Adarsh Carpenter MD [address] [place] [address] letter for timeschristiano Social History Tobacco Use [...] often do you attend chur ch or sabianist services? 1 to 4 times per year 04/24/2022 Do you belong to any clubs o r organizations such as presybeterian groups, unions, fraternal [...] Date Recorded PHQ-9 Total Score 1 04/24/2022 [facility] - Occupational Stress Questionnaire Answer Date Recorded [...] No 04/24/2022 Housing Stability Vital Sign Answer Joes e Recorded In the last 12 months, [...] 07/02/2023 9:45 AM CDT Letter faxed to [facility] as requested; fax [phone]. * Telephone Encounter - Sofia Denson RN [...] st Contact Info) Description 11/07/2023 10:40 AM CARBON CLEANER Office Visit [place] [address] [address] Wade Donovan MD 1705 [facility] 20 [place] [address] documented as of this encounter Results * (ABNORMAL) Urine culture (07/04/2023 10:43 AM CDT) Urine Culture Staphylococcus aureus >100,000 cfu/ml Use oxacillin interpretation to predict results for anti-staphylococc al beta-lactam antibiotics (except ceftaroline). (A) 07/06/2023 8:07 AM CDT [facility] Urine (Saenz Insert) 07/04/2023 10:43 AM CDT 07/05/2023 1:23 PM CDT Comment:Urine Culture Narrative Organism Antibiotic Method Susceptibility Staphylococcus aureus Nitrofurantoin <=32 mcg/mL: Susceptible Staphylococcus aureus Oxacillin <=0.25 mcg/mL: Susceptible Staphylococcus aureus Tetracycline <=4 mcg/mL: Susceptible Staphylococcus aureus Trimeth/Sulfa <=0.5/9.5 mcg/mL: Susceptible Adarsh Carpenter MD LAB [facility] [address] [place] [address] documented in this encounter Visit Diagnoses Diagnosis Frequency of micturition- Primary Urinary frequency documented in this encounter Additional Health Concerns Infection Onset Date Last Indicated Resolved Time MSSA 06/19/2023 07/04/2023 07/17/2023 2:29 PM CDT documented as of this encounter Care Teams Manufacturing Technology Analyst Relationship Specialty Start Date End Date Adarsh Carpenter MD 1705 [facility] 20 [place] [phone] PCP - General 05/07/18 07/18/23 documented as of this encounter
--- OUTSIDE RECORDS SUMMARY | 2023-11-01 12:21 | XMS_ITS | Encounter Summary ---
Author Name Unknown Organization [facility] er Address [address] [place] [address] Care Team Providers Care Nutrition Services Worker Name Role Phone Wade Donovan MD Primary Care Provider [phone] Encounter Details Date Type Department Care Team (Late st Contact Info) Description 07/18/2023 Orders Only [place] [address] [place] [address] Adarsh Carpenter MD [address] [place] [address] Social History Tobacco Use Types Packs/Day Years [...] Date Recorded PHQ-9 Total Score 1 04/24/2022 [facility] - Occupational Stress Questionnaire Answer [...] st Contact Info) Description 11/07/2023 10:40 AM GENERATOR ASSEMBLER Office Visit [address] [address] Wade Donovan MD [address] [place] [phone] documented as of this encounter Visit Diagnoses Not on filedocumented in this encounter Care Teams Nutrition Services Worker Relationship Specialty Start Date End Date Wade Donovan MD [address] [place] [phone] PCP - General 07/19/23 08/01/23 documented as of this encounter
--- OUTSIDE RECORDS SUMMARY | 2023-11-01 12:21 | XMS_ITS | Encounter Summary ---
Author Name Unknown Organization [facility] er Address [address] [place] [address] Care Team Providers Care Traffic Observer Name Role Phone Adarsh Carpenter MD Primary Care Provider [phone] Encounter Details Date Type Department Care Team (Late st Contact Info) Description 07/08/2023 Orders Only [place] [address] [place] [address] Adarsh Carpenter MD [address] [place] [address] Frequency of micturition (Primary Dx); History of [...] any clubs o r organizations such as congregational groups, unions, fraternal [...] 04/24/2022 [facility] - Occupational Stress Questionnaire Answer Date [...] st Contact Info) Description 11/07/2023 10:40 AM PROMOTIONAL DEMONSTRATOR Office Visit [place] [address] [place] [address] Wade Donovan MD [address] [place] [phone] documented as of this encounter Results * (ABNORMAL) Urine culture (08/02/2023 10:34 AM CDT) Urine Culture Staphylococcus aureus >100,000 cfu/ml Use oxacillin interpretation to predict results for anti-staphylococc al beta-lactam antibiotics (except ceftaroline). (A) 08/04/2023 8:50 AM CDT [facility] Urine (Saenz Insert) 08/02/2023 10:34 AM CDT 08/03/2023 12:05 PM CDT Comment:Urine Culture Narrative Organism Antibiotic Method Susceptibility Staphylococcus aureus Nitrofurantoin <=32 mcg/mL: Susceptible Staphylococcus aureus Oxacillin <=0.25 mcg/mL: Susceptible Staphylococcus aureus Tetracycline <=4 mcg/mL: Susceptible Staphylococcus aureus Trimeth/Sulfa <=0.5/9.5 mcg/mL: Susceptible Adarsh Carpenter MD LAB MICROBIOLOGY - G ENERAL ORDERABLES [facility] [address] [place] [address] documented in this encounter Visit Diagnoses Diagnosis Frequency of micturition- Primary Urinary frequency History of UTI documented in this encounter Additional Health Concerns Infection Onset Date Last Indicated Resolved Time MSSA 06/19/2023 07/04/2023 07/17/2023 2:29 PM CDT documented as of this encounter Care Teams Traffic Observer Relationship Specialty Start Date End Date Adarsh Carpenter MD [address] [place] [address] PCP - General 05/07/18 07/18/23 documented as of this encounter
--- OUTSIDE RECORDS SUMMARY | 2023-11-01 12:21 | XMS_ITS | Encounter Summary ---
Author Name Unknown Organization [facility] er Address [address] [place] [address] Care Team Providers Care Marketing Planning Manager Name Role Phone Adarsh Carpenter MD Primary Care Provider [phone] Reason for Visit * Reason Onset Date Comments Meds 07/09/2023 Encounter Details Date Type Department Care Team (Late st Contact Info) Description 07/09/2023 Telephone [place] [address] [place] [address] Adarsh Carpenter MD [address] [place] [address] Meds Social History Tobacco Use Types Packs/Day [...] PHQ-9 Total Score 1 04/24/2022 [facility]ational Stress Questionnaire Answer Date [...] st Contact Info) Description 11/07/2023 10:40 AM LIME BOILER Office Visit [address] [address] Wade Donovan MD [address] [place] [address] [place] [phone] documented as of this encounter Visit Diagnoses Not on filedocumented in this encounter Additional Health Concerns Infection Onset Date Last Indicated Resolved Time MSSA 06/19/2023 07/04/2023 07/17/2023 2:29 PM CDT documented as of this encounter Care Teams Marketing Planning Manager Relationship Specialty Start Date End Date Adarsh Carpenter MD [address] [place] [address] PCP - General 05/07/18 07/18/23 documented as of this encounter
--- OUTSIDE RECORDS SUMMARY | 2023-11-01 12:21 | XMS_ITS | Encounter Summary ---
Author Name Unknown Organization [facility] er Address [address] [place] [address] Care Team Providers Care Slackline Operator Name Role Phone Adarsh Carpenter MD Primary Care Provider [phone] Encounter Details Date Type Department Care Team (Late st Contact Info) Description 07/06/2023 Telephone [place] [address] [place] [address] Adarsh Carpenter MD [address] [place] [address] Social History Tobacco Use Types Packs/Day Years [...] How often do you attend chur or restoration services? 1 to 4 times per year 04/24/2022 Do you belong to any clubs o r organizations such as druze groups, unions, fraternal [...] Date Recorded PHQ-9 Total Score 1 04/24/2022 [facility] - Occupational Stress Questionnaire Answer [...] the antibiotic was changed and sent to [facility]. Requested a call back if there are [...] something else that you could send to [facility]? * Telephone Encounter - Hali Soriano APRN [...] st Contact Info) Description 11/07/2023 10:40 AM VEGETABLE PACKER Office Visit [place] [address] [place] [address] Wade Donovan MD [address] [phone] documented as of this encounter Visit Diagnoses Not on filedocumented in this encounter Additional Health Concerns Infection Onset Date Last Indicated Resolved Time MSSA 06/19/2023 07/04/2023 07/17/2023 2:29 PM CDT documented as of this encounter Care Teams Slackline Operator Relationship Specialty Start Date End Date Adarsh Carpenter MD [address] [place] [address] PCP - General 05/07/18 07/18/23 documented as of this encounter
--- OUTSIDE RECORDS SUMMARY | 2023-11-01 12:21 | XMS_ITS | Encounter Summary ---
Author Name Unknown Organization [facility] er Address [address] [place] [address] Care Team Providers Care Sqe Name Role Phone Adarsh Carpenter MD Primary Care Provider [phone] Encounter Details Date Type Department Care Team (Late st Contact Info) Description 06/19/2023 Orders Only [place] [address] [place] [address] Adarsh Carpenter MD [address] [place] [address] Frequency of micturition (Primary Dx) Social History [...] How often do you attend chur or mandaeism services? 1 to 4 times per year 04/24/2022 Do you belong to any clubs o r organizations such as sikhism groups, unions, fraternal [...] Date Recorded PHQ-9 Total Score 1 04/24/2022 [facility] of Occupat [...] st Contact Info) Description 11/07/2023 10:40 AM PAID SEARCH ANALYST Office Visit [address] [address] Wade Donovan MD [address] [facility] 20 [place] [address] documented as of this encounter Visit Diagnoses Diagnosis Frequency of micturition- Primary Urinary frequency documented in this encounter Additional Health Concerns Infection Onset Date Last Indicated Resolved Time MSSA 06/19/2023 07/04/2023 07/17/2023 2:29 PM CDT documented as of this encounter Care Teams Sqe Relationship Specialty Start Date End Date Adarsh Carpenter MD [address] [place] [address] PCP - General 05/07/18 07/18/23 documented as of this encounter
--- OUTSIDE RECORDS SUMMARY | 2023-11-01 12:21 | XMS_ITS | Encounter Summary ---
Author Name Unknown Organization [facility] er Address [address] [place] [address] Care Team Providers Care English Composition Teacher Name Role Phone Adarsh Carpenter MD Primary Care Provider [phone] Encounter Details Date Type Department Care Team (Late st Contact Info) Description 06/19/2023 Telephone [place] [address] [place] [address] Adarsh Carpenter MD [address] [place] [address] Social History Tobacco Use Types Packs/Day Years [...] How often do you attend chur or orthodoxy services? 1 to 4 times [...] 1 04/24/2022 [facility] - Occupational Stress Questionnaire Answer [...] are leaving in a couple days for [facility]. They will be gone 12 days. Do [...] st Contact Info) Description 11/07/2023 10:40 AM INSPECTOR SCALES Office Visit [address] [address] Wade Donovan MD [address] [facility] 20 [place] [address] documented as of this encounter Visit Diagnoses Not on filedocumented in this encounter Additional Health Concerns Infection Onset Date Last Indicated Resolved Time MSSA 06/19/2023 07/04/2023 07/17/2023 2:29 PM CDT documented as of this encounter Care Teams English Composition Teacher Relationship Specialty Start Date End Date Adarsh Carpenter MD [address] [facility] 20 [place] [address] PCP - General 05/07/18 07/18/23 documented as of this encounter
--- OUTSIDE RECORDS SUMMARY | 2023-11-01 12:21 | XMS_ITS | Encounter Summary ---
Author Name Unknown Organization [facility] er Address [address] [place] [address] Care Team Providers Care Underwriting Intern Name Role Phone Adarsh Carpenter MD Primary Care Provider [phone] Encounter Details Date Type Department Care Team (Late st Contact Info) Description 07/04/2023 10:30 AM CDT Lab [place] [address] [place] [address] Frequency of urination (Primary Dx); Frequency of [...] any clubs o r organizations such as confucianism groups, unions, fraternal [...] Date Recorded PHQ-9 Total Score 1 04/24/2022 [facility] - Occupational [...] st Contact Info) Description 11/07/2023 10:40 AM MACHINE STONE POLISHER APPRENTICE Office Visit [address] [address] Wade Donovan MD [address] [place] [phone] documented as of this encounter Procedures Procedure [...] 0-2 Hyaline /lpf 07/05/2023 3:43 PM CDT [facility] Significant casts, urine NONE SEEN None Seen /lpf 07/05/2023 3:43 PM CDT [facility] RBC, Urine 4-10(A) 0 - 3 /hpf 07/05/2023 3:43 PM T [facility] WBC, Urine >100(A) /hpf 07/05/2023 3:43 PM T [facility] Comment: Male: ?? 0-3/hpf Female: 0-10/hpf Squamous Epithelial, Urine NONE SEEN Few /lpf 07/05/2023 3:43 PM [facility] Trans Epithelial, Urine NONE SEEN 0 - 3 /hpf 07/05/2023 3:43 PM T [facility] Renal Tubular Cells, Urine NONE SEEN 0 - 1 /hpf 07/05/2023 3:43 PM [facility] Bacteria, Urine 1+(A) None Seen - Few /hpf 07/05/2023 3:43 PM [facility] Miscellaneous, urine SEE BELOW 07/05/2023 3:43 PM [facility] Comment: 1+ Calcium Oxalate Crystals Present. 07/04/2023 10:4 4 AM CDT 07/05/2023 3:41 PM CDT Adarsh Carpenter MD LAB URINE ORDERABLES [facility] [address] [place] [phone] * (ABNORMAL) Urinalysis with reflex microscopic (lab staff release/collect) (07/04/2023 10:44 AM CDT) Type CATH 07/04/2023 11:09 AM CDT [facility] [place] [facility] Color, Urine YELLOW YELLOW 07/04/2023 11:09 AM CDT [facility] Clarity, Urine TURBID(A) CLEAR 07/04/2023 11:09 AM CDT [facility] Glucose, Urine NEGATIVE NEGATIVE mg/dL 07/04/2023 11:09 AM CDT [facility] Bilirubin, Urine NEGATIVE NEGATIVE 07/04/2023 11:09 AM CDT [facility] Ketones, Urine NEGATIVE NEGATIVE mg/dL 07/04/2023 11:09 AM CDT [facility] Specific Joice, Urine 1.025 1.000 ->=1.030 07/04/2023 11:09 AM CDT [facility] [place] Blood, Urine MODERATE(A) NEGATIVE 07/04/2023 11:09 AM CDT [facility] pH, Urine 6.0 5.0 - 7.0 07/04/2023 11:09 AM CDT [facility] [place] Protein, Urine 30(A) NEGATIVE-TRA CE mg/dL 07/04/2023 11:09 AM CDT [facility] [place] Urobilinogen, Urine 0.2 0.2 - 1.0 E.U./dL 07/04/2023 11:09 AM CDT [facility] [place] Nitrite, Urine POSITIVE(A) NEGATIVE 07/04/2023 11:09 AM CDT [facility] [place] Leukocytes, Urine LARGE(A) NEGATIVE 07/04/2023 11:09 AM CDT [facility] [place] Urine (Urine, Catheter) 07/04/2023 10:44 AM CDT 07/04/2023 10:44 AM CDT Adarsh Carpenter MD LAB URINE ORDERABLES [facility] [address] [place] [address] * (ABNORMAL) Urine culture (07/04/2023 10:43 AM CDT) Urine Culture Staphylococcus aureus >100,000 cfu/ml Use oxacillin interpretation to predict results for anti-staphylococc al beta-lactam antibiotics (except ceftaroline). (A) 07/06/2023 8:07 AM CDT [facility] Urine (Saenz Insert) 07/04/2023 10:43 AM CDT 07/05/2023 1:23 PM CDT Comment:Urine Culture Narrative Organism Antibiotic Method Susceptibility Staphylococcus aureus Nitrofurantoin <=32 mcg/mL: Susceptible Staphylococcus aureus Oxacillin <=0.25 mcg/mL: Susceptible Staphylococcus aureus Tetracycline <=4 mcg/mL: Susceptible Staphylococcus aureus Trimeth/Sulfa <=0.5/9.5 mcg/mL: Susceptible DLatanya Carpenter MD LAB MICROBIOLOGY - G ENERAL ORDERABLES [facility] [address] [place] [address] documented in this encounter Visit Diagnoses Diagnosis Frequency of urination- Primary Urinary frequency Frequency of micturition Urinary frequency documented in this encounter Additional Health Concerns Infection Onset Date Last Indicated Resolved Time MSSA 06/19/2023 07/04/2023 07/17/2023 2:29 PM CDT documented as of this encounter Care Teams Underwriting Intern Relationship Specialty Start Date End Date Adarsh Carpenter MD [address] [place] [address] PCP - General 05/07/18 07/18/23 documented as of this encounter
--- OUTSIDE RECORDS SUMMARY | 2023-11-01 12:21 | XMS_ITS | Encounter Summary ---
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 (Primary Dx) [...] Total Score 1 04/24/2022 [facility] - Occupational Stress Questionnaire Answer Date [...] st Contact Info) Description 11/07/2023 10:40 AM MONOMER PURIFICATION OPERATOR Office Visit [place] [address] [address] Wade Donovan MD [address] [place] [phone] documented as of this encounter Procedures Procedure [...] in this encounter Visit Diagnoses Diagnosis 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
--- OUTSIDE RECORDS SUMMARY | 2023-11-01 12:21 | XMS_ITS | Encounter Summary ---
Author Name Unknown Organization [facility] er Address [address] [place] [address] Care Team Providers Care Aircraft Stress Analyst Name Role Phone Adarsh Carpenter MD Primary Care Provider [phone] Encounter Details Date Type Department Care Team (Late st Contact Info) Description 07/06/2023 Orders Only [place] [address] [place] [address] Hali Soriano, COUNTY SURVEYOR [address] [place] [address] Social History Tobacco Use Types Packs/Day Years [...] How often do you attend chur or orthodox services? 1 to 4 times per year [...] Date Recorded PHQ-9 Total Score 1 04/24/2022 [facility] - Occupational Stress Questionnaire Answer [...] Contact Info) Description 11/07/2023 10:40 AM REGIONAL CLIMATE CHANGE ANALYST Office Visit [address] [address] Wade Donovan MD 17[address] [facility] 20 [place] [address] documented as of this encounter Visit Diagnoses Not on filedocumented in this encounter Additional Health Concerns Infection Onset Date Last Indicated Resolved Time MSSA 06/19/2023 07/04/2023 07/17/2023 2:29 PM CDT documented as of this encounter Care Teams Aircraft Stress Analyst Relationship Specialty Start Date End Date Adarsh Carpenter MD [address] [place] [address] PCP - General 05/07/18 07/18/23 documented as of this encounter
--- OUTSIDE RECORDS SUMMARY | 2023-11-01 12:21 | XMS_ITS | Encounter Summary ---
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 AVS sent through [employer]. 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
--- OUTSIDE RECORDS SUMMARY | 2023-11-01 12:21 | XMS_ITS | Encounter Summary ---
Author Name Unknown Organization [facility] er Address [address] [place] [address] Care Team Providers Care Electric Deicer Inspector Name Role Phone Adarsh Carpenter MD Primary Care Provider [phone] Encounter Details Date Type Department Care Team (Late st Contact Info) Description 07/06/2023 Orders Only [place] [address] [place] [address] Hali Soriano, BILLPOSTER [address] [place] [address] Acute cystitis with hematuria (Primary Dx) Social [...] Date Recorded PHQ-9 Total Score 1 04/24/2022 [facility] of Occupat ional Health - [...] st Contact Info) Description 11/07/2023 10:40 AM AGRICULTURE TEACHER Office Visit [address] [address] Wade Donovan MD 1705 [facility] 20 [place] [address] documented as of this encounter Visit Diagnoses Diagnosis Acute cystitis with hematuria- Primary documented in this encounter Additional Health Concerns Infection Onset Date Last Indicated Resolved Time MSSA 06/19/2023 07/04/2023 07/17/2023 2:29 PM CDT documented as of this encounter Care Teams Electric Deicer Inspector Relationship Specialty Start Date End Date Adarsh Carpenter MD [address] [place] [address] PCP - General 05/07/18 07/18/23 documented as of this encounter
--- OUTSIDE RECORDS SUMMARY | 2023-11-01 12:22 | XMS_ITS | Encounter Summary ---
Author Name Unknown Organization 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 1 to 4 times per year [...] PHQ-9 Total Score 1 04/24/2022 [facility] Questionnaire Answer Date [...] st Contact Info) Description 11/07/2023 10:40 AM PERFORMANCE TEST ENGINEER Office Visit [place] [address] [place] [address] [place] [address] [place] [phone] documented as of this encounter Procedures Procedure [...] in this encounter Visit Diagnoses Diagnosis termite helper current use of anticoagulant- Primary Other pulmonary embolism without acute cor pulmonale, unspecified chronicity (HCC) documented in this encounter Care Teams Dumb Waiter Operator Relationship Specialty Start Date End Date Adarsh Carpenter MD [address] [place] [address] PCP - General 05/07/18 07/18/23 documented as of this encounter
--- OUTSIDE RECORDS SUMMARY | 2023-11-01 12:22 | XMS_ITS | Encounter Summary ---
Author Name Unknown Organization [facility] er Address [address] [place] [address] Care Team Providers Care Journeyman Painter Name Role Phone Adarsh Carpenter MD Primary Care Provider [phone] Reason for Visit * Reason Onset Date Comments Urinary symptoms 06/18/2023 Encounter Details Date Type Department Care Team (Late st Contact Info) Description 06/18/2023 Telephone [place] [address] [place] [address] Adarsh Carpenter MD [address] [place] [address] Urinary symptoms Social History Tobacco Use Types [...] Score 1 04/24/2022 [facility] - Occupational Stress Questionnaire Answer Date Recorded [...] st Contact Info) Description 11/07/2023 10:40 AM COMPRESSOR STATION CHIEF ENGINEER Office Visit [place] [address] [address] [place] [address] [place] [phone] documented as of this encounter Results * (ABNORMAL) Urine culture (06/19/2023 10:51 AM CDT) Urine Culture Staphylococcus aureus >100,000 cfu/ml Oxacillin: _ Use oxacillin interpretation to predict results for anti-staphylococc al beta-lactam antibiotics (except ceftaroline). (A) 06/21/2023 8:25 AM CDT [facility] Urine (Cooper Insert) 06/19/2023 10:51 AM CDT 06/20/2023 12:51 PM CDT Comment:URINE Narrative [facility] - 06/21/2023 8:28 AM CDT Patient does not have an Amoxicillin or PCN allergy Organism Antibiotic Method Susceptibility Staphylococcus aureus Nitrofurantoin <=32 mcg/mL: Susceptible Staphylococcus aureus Oxacillin <=0.25 mcg/mL: Susceptible Staphylococcus aureus Tetracycline <=4 mcg/mL: Susceptible Staphylococcus aureus Trimeth/Sulfa <=0.5/9.5 mcg/mL: Susceptible Adarsh Carpenter MD LAB [facility]OLOG[facility] - [facility] ORDERABLES [facility] [address] [place] [address] * (ABNORMAL) Urinalysis with reflex microscopic (06/19/2023 10:51 AM CDT) Type COOPER INSERT 06/19/2023 11:01 AM CDT [facility] Color, Urine TEE(A) YELLOW 06/19/2023 11:01 AM CDT [facility] Clarity, Urine TURBID(A) CLEAR 06/19/2023 11:01 AM CDT [facility] Glucose, Urine NEGATIVE NEGATIVE mg/dL 06/19/2023 11:01 AM CDT [facility] [place] [place] Bilirubin, Urine NEGATIVE NEGATIVE 06/19/2023 11:01 AM CDT [facility] [place] [place] Ketones, Urine NEGATIVE NEGATIVE mg/dL 06/19/2023 11:01 AM T [facility] [place] Specific [place], Urine 1.020 1.000 ->=1.030 06/19/2023 11:01 AM T [facility] [place] [place] Blood, Urine MODERATE(A) NEGATIVE 06/19/2023 11:01 AM T [facility] [place] pH, Urine 6.5 5.0 - 7.0 06/19/2023 11:01 AM CDT [facility] [place] [place] Protein, Urine 100(A) NEGATIVE-TRA CE mg/dL 06/19/2023 11:01 AM T [facility] Urobilinogen, Urine 0.2 0.2 - 1.0 E.U./dL 06/19/2023 11:01 AM T [facility] [place] [place] Nitrite, Urine POSITIVE(A) NEGATIVE 06/19/2023 11:01 AM T [facility] [place] [facility] Leukocytes, Urine LARGE(A) NEGATIVE 06/19/2023 11:01 AM T [facility] [place] Urine (Cooper Insert) 06/19/2023 10:51 AM CDT 06/19/2023 10:52 AM CDT Adarsh Carpenter MD LAB URINE ORDERABLES [facility] [place] [facility] [address] [place] [address] documented in this encounter Visit Diagnoses Diagnosis Frequency of micturition- Primary Urinary frequency Frequency of micturition Urinary frequency Urinary retention Unspecified retention of urine Neurogenic bladder Neurogenic bladder, NOS documented in this encounter Care Teams Journeyman Painter Relationship Specialty Start Date End Date Adarsh Carpenter MD [address] [place] [address] PCP - General 05/07/18 07/18/23 documented as of this encounter
--- OUTSIDE RECORDS SUMMARY | 2023-11-01 12:22 | XMS_ITS | Encounter Summary ---
Author Name Unknown Organization [facility] er Address [address] [place] [address] Care Team Providers Care Priming Mixture Carrier Name Role Phone Adarsh Carpenter MD Primary Care Provider [phone] Encounter Details Date Type Department Care Team (Latest Contact Info) Description 05/23/2023 Anticoagulation - Warfarin Visit [facility]/Internal Medicine - Third Floor [address] [place] [phone] Gregoria Bustamante, ROBERT 210 [place] [address] terminal make up operator current [...] How often do you attend chur or anglican services? 1 to 4 times per year [...] Date Recorded PHQ-9 Total Score 1 04/24/2022 [facility] - Occupational Stress Questionnaire Answer Date Recorded [...] Progress Notes * Gregoria Bustamante RN - 05/23/2023 9:59 AM CDT Anticoagulation Clinic [...] st Contact Info) Description 11/07/2023 10:40 AM MANUFACTURING MAINTENANCE MANAGER Office Visit [place] [address] [address] [place] [address] [place] [phone] documented as of this encounter Procedures Procedure [...] documented in this encounter Visit Diagnoses Diagnosis MCFP current use of anticoagulant- Primary documented in this encounter Care Teams Priming Mixture Carrier Relationship Specialty Start Date End Date Adarsh Carpenter MD 1705 [facility] 20 [place] [address] PCP - General 05/07/18 07/18/23 documented as of this encounter
--- OUTSIDE RECORDS SUMMARY | 2023-11-01 12:22 | XMS_ITS | Encounter Summary ---
Author Name Unknown Organization [facility] er Address [address] [place] [address] Care Team Providers Care Ornament Stitcher Name Role Phone Adarsh Carpenter MD Primary Care Provider [phone] Encounter Details Date Type Department Care Team (Latest Contact Info) Description 02/12/2023 Anticoagulation - Warfarin Visit [facility] Antico/Internal Medicine - Third Floor [address] [place] [phone] Gregoria Bustamante, ROBERT 210 [place] [address] bed bug exterminator current use [...] How often do you attend chur or jain services? 1 to 4 times [...] Score 1 04/24/2022 [facility] - Occupational Stress Questionnaire Answer Date [...] Contact Info) Description 11/07/2023 10:40 AM INSURANCE CLAIMS CLERK Office Visit [place] [address] [address] [place] [address] [place] [phone] documented as of this encounter Procedures Procedure [...] Diagnosis snf current use of anticoagulant- Primary documented in this encounter Care Teams Ornament Stitcher Relationship Specialty Start Date End Date Adarsh Carpenter MD [address] [place] [address] PCP - General 05/07/18 07/18/23 documented as of this encounter
--- OUTSIDE RECORDS SUMMARY | 2023-11-01 12:22 | XMS_ITS | Encounter Summary ---
Author Name Unknown Organization [facility] er Address [address] [place] [address] Care Team Providers Care Nursery Nurse Name Role Phone Adarsh Carpenter MD Primary Care Provider [phone] Encounter Details Date Type Department Care Team (Late st Contact Info) Description 06/19/2023 10:45 AM CDT Lab [place] [address] [place] [address] Frequency of micturition; Urinary retention; Neurogenic bladder [...] often do you attend chur ch or congregational services? 1 to 4 times per year 04/24/2022 Do you belong to any clubs o r organizations such as mosque groups, unions, fraternal [...] Date Recorded PHQ-9 Total Score 1 04/24/2022 [facility] of Occupat ional Health [...] st Contact Info) Description 11/07/2023 10:40 AM TOW MATE Office Visit [address] [address] [place] [address] [place] [phone] documented as of this encounter Procedures Procedure [...] 0-2 Hyaline /lpf 06/20/2023 1:41 PM CDT [facility] Significant casts, urine NONE SEEN None Seen /lpf 06/20/2023 1:41 PM CDT [facility] RBC, Urine 4-10(A) 0 - 3 /hpf 06/20/2023 1:41 PM CDT [facility] WBC, Urine >100(A) /hpf 06/20/2023 1:41 PM CDT [facility] Comment: Male Ref Range ? 0-3/hpf Female Ref Range ?? 0-10/hpf Squamous Epithelial, Urine FEW Few /lpf 06/20/2023 1:41 PM CDT [facility] Trans Epithelial, Urine NONE SEEN 0 - 3 /hpf 06/20/2023 1:41 PM T [facility] Renal Tubular Cells, Urine NONE SEEN 0 - 1 /hpf 06/20/2023 1:41 PM T [facility] Bacteria, Urine 2+(A) None Seen - Few /hpf 06/20/2023 1:41 PM T [facility] 06/19/2023 10:5 1 AM CDT 06/20/2023 12:26 PM CDT Adarsh Carpenter MD LAB URINE ORDERABLES [facility] [address] [place] [address] * (ABNORMAL) Urine culture (06/19/2023 10:51 AM CDT) Urine Culture Staphylococcus aureus >100,000 cfu/ml Oxacillin: _ Use oxacillin interpretation to predict results for anti-staphylococc al beta-lactam antibiotics (except ceftaroline). (A) 06/21/2023 8:25 AM CDT [facility] Urine (Cooper Insert) 06/19/2023 10:51 AM CDT 06/20/2023 12:51 PM CDT Comment:URINE Narrative [facility] - 06/21/2023 8:28 AM CDT Patient does not have an Amoxicillin or PCN allergy Organism Antibiotic Method Susceptibility Staphylococcus aureus Nitrofurantoin <=32 mcg/mL: Susceptible Staphylococcus aureus Oxacillin <=0.25 mcg/mL: Susceptible Staphylococcus aureus Tetracycline <=4 mcg/mL: Susceptible Staphylococcus aureus Trimeth/Sulfa <=0.5/9.5 mcg/mL: Susceptible Adarsh Carpenter MD LAB [facility]OLOGY - [facility] ORDERABLES [facility] [address] [place] [address] * (ABNORMAL) Urinalysis with reflex microscopic (06/19/2023 10:51 AM CDT) Type COOPER INSERT 06/19/2023 11:01 AM CDT [facility] [place] Color, Urine TEE(A) YELLOW 06/19/2023 11:01 AM CDT [facility] [place] Clarity, Urine TURBID(A) CLEAR 06/19/2023 11:01 AM CDT [place] Glucose, Urine NEGATIVE NEGATIVE mg/dL 06/19/2023 11:01 AM CDT [facility] [place] Bilirubin, Urine NEGATIVE NEGATIVE 06/19/2023 11:01 AM CDT [facility] [place] Ketones, Urine NEGATIVE NEGATIVE mg/dL 06/19/2023 11:01 AM CDT [facility] [place] Specific [place], Urine 1.020 1.000 ->=1.030 06/19/2023 11:01 AM CDT [place] Blood, Urine MODERATE(A) NEGATIVE 06/19/2023 11:01 AM CDT [place] pH, Urine 6.5 5.0 - 7.0 06/19/2023 11:01 AM CDT [place] Protein, Urine 100(A) NEGATIVE-TRA CE mg/dL 06/19/2023 11:01 AM CDT [facility] [place] Urobilinogen, Urine 0.2 0.2 - 1.0 E.U./dL 06/19/2023 11:01 AM CDT [place] Nitrite, Urine POSITIVE(A) NEGATIVE 06/19/2023 11:01 AM CDT [facility] [place] Leukocytes, Urine LARGE(A) NEGATIVE 06/19/2023 11:01 AM CDT [facility] [place] Urine (Cooper Insert) 06/19/2023 10:51 AM CDT 06/19/2023 10:52 AM CDT Adarsh Carpenter MD LAB URINE ORDERABLES [facility] [place] [address] [place] [address] documented in this encounter Visit Diagnoses Diagnosis Frequency of micturition Urinary frequency Urinary retention Unspecified retention of urine Neurogenic bladder Neurogenic bladder, NOS documented in this encounter Care Teams Nursery Nurse Relationship Specialty Start Date End Date Adarsh Carpenter MD [address] [place] [address] PCP - General 05/07/18 07/18/23 documented as of this encounter
--- OUTSIDE RECORDS SUMMARY | 2023-11-01 12:22 | XMS_ITS | Encounter Summary ---
Author Name Unknown Organization [facility] er Address [address] [place] [address] Care Team Providers Care Real Time Analyst Name Role Phone Adarsh Carpenter MD Primary Care Provider [phone] Encounter Details Date Type Department Care Team (Late st Contact Info) Description 06/13/2023 Orders Only [place] [address] [place] [address] Adarsh Carpenter MD [address] [place] [address] Social History Tobacco Use Types Packs/Day Years [...] How often do you attend chur or pentecostalism services? 1 to 4 times [...] Date Recorded PHQ-9 Total Score 1 04/24/2022 [facility] - Occupational Stress Questionnaire Answer Date Recorded [...] st Contact Info) Description 11/07/2023 10:40 AM HOSPITALITY INTERNSHIP Office Visit [address] [address] Wade Donovan MD [address] [place] [phone] documented as of this encounter Visit Diagnoses Not on filedocumented in this encounter Care Teams Real Time Analyst Relationship Specialty Start Date End Date Adarsh Carpenter MD [address] [place] [phone] PCP - General 05/07/18 07/18/23 documented as of this encounter
--- OUTSIDE RECORDS SUMMARY | 2023-11-01 12:22 | XMS_ITS | Encounter Summary ---
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
--- OUTSIDE RECORDS SUMMARY | 2023-11-01 12:22 | XMS_ITS | Encounter Summary ---
Author Name Unknown Organization [facility] er Address [address] [place] [address] Care Team Providers Care Screen And Cyclone Repairer Name Role Phone Adarsh Carpenter MD Primary Care Provider [phone] Encounter Details Date Type Department Care Team (Latest Contact Info) Description 05/02/2023 Anticoagulation - Warfarin Visit [facility] Antico/Internal Medicine - Third Floor [address] [place] [phone] Gregoria Bustamante, ROBERT 210 [place] [address] 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 card tender current use of anticoagulant (Primary Dx) Social [...] How often do you attend chur or scientology services? 1 to 4 times [...] Date Recorded PHQ-9 Total Score 1 04/24/2022 [facility] - Occupational Stress Questionnaire Answer Date [...] Progress Notes * Gregoria Bustamante RN - 05/02/2023 2:58 PM CDT Anticoagulation Clinic [...] st Contact Info) Description 11/07/2023 10:40 AM MANAGER MED SURG Office Visit [place] [address] [address] [place] [address] [place] [phone] documented as of this encounter Procedures Procedure [...] Diagnosis 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 card tender current use of anticoagulant- Primary documented in this encounter Care Teams Screen And Cyclone Repairer Relationship Specialty Start Date End Date Adarsh Carpenter MD [address] [phone] PCP - General 05/07/18 07/18/23 documented as of this encounter
--- OUTSIDE RECORDS SUMMARY | 2023-11-01 12:22 | XMS_ITS | Encounter Summary ---
Author Name Unknown Organization [facility] er Address [address] [place] [address] Care Team Providers Care Cw Operator Name Role Phone Adarsh Carpenter MD Primary Care Provider [phone] Reason for Visit * Reason Onset Date Comments requesting a letter to be written and faxed 06/01 Encounter Details Date Type Department Care Team (Late st Contact Info) Description 06/11/2023 Telephone [place] [address] [place] [address] Adarsh Carpenter MD [address] [place] [address] requesting a letter to be written and [...] Date Recorded PHQ-9 Total Score 1 04/24/2022 [facility] - Occupational Stress Questionnaire Answer Date Recorded [...] requested, faxed, attention to Yoly, , fax [phone]. * Telephone Encounter - Sofia Denson RN - 06/13/2023 11:14 AM CDT Please fax. * Telephone Encounter - Adarsh Carpenter MD - 06/13/2023 9:57 AM CDT [...] Carpenter could write a generic letter on [facility] [place]. In the letter, it needs to state when the date that the pt was diagnosed with MS. Also, that Dwain is unable to travel because of his condition. (Nelia said that we don't need to list specific reasons why he can't travel in the letter). This can be faxed to attn: Yoly with the case #- [id number] and fax #- [phone]. Nelia would like a call back to let her know when this has been faxed. Thanks. documented in this encounter Plan of Treatment Upcoming Encounters Date Type Department Care Team (Late st Contact Info) Description 11/07/2023 10:40 AM FIELD MARKETING REPRESENTATIVE Office Visit [place] [address] [facility] 20 [place] [address] Wade Donovan MD 1705 [facility] 20 [place] [address] documented as of this encounter Visit Diagnoses Not on filedocumented in this encounter Care Teams Cw Operator Relationship Specialty Start Date End Date Adarsh Carpenter MD 1705 [facility] 20 [place] [address] PCP - General 05/07/18 07/18/23 documented as of this encounter
--- OUTSIDE RECORDS SUMMARY | 2023-11-01 12:22 | XMS_ITS | Encounter Summary ---
Author Name Unknown Organization [facility] er Address [address] [place] [address] Care Team Providers Care Mold Car Pusher Name Role Phone Adarsh Carpenter MD Primary Care Provider [phone] Encounter Details Date Type Department Care Team (Latest Contact Info) Description 06/06/2023 Anticoagulation - Warfarin Visit [facility] Antico/Internal Medicine - Third Floor [address] [place] [phone] Gregoria Bustamante, ROBERT 210 [place] [address] termination clerk current use of anticoagulant (Primary Dx) Social [...] How often do you attend chur or adventism services? 1 to 4 times [...] 1 04/24/2022 [facility] - Occupational Stress Questionnaire Answer Date Recorded [...] Progress Notes * Gregoria Bustamante RN - 06/06/2023 11:05 AM CDT Anticoagulation Clinic INR RESULTS: INR (no units) Date Value 06/06/2023 2.10 (A) DOSE PLAN: 2 mg every Sun, [...] st Contact Info) Description 11/07/2023 10:40 AM SUPERVISOR SPECIAL EDUCATION Office Visit [place] [address] [address] [place] [address] [place] [phone] documented as of this encounter Procedures Procedure [...] Primary documented in this encounter Care Teams Mold Car Pusher Relationship Specialty Start Date End Date Adarsh Carpenter MD 1705 [facility] 20 [place] [address] PCP - General 05/07/18 07/18/23 documented as of this encounter
--- OUTSIDE RECORDS SUMMARY | 2023-11-01 12:22 | XMS_ITS | Encounter Summary ---
Author Name Unknown Organization [facility] er Address [address] [place] [address] Care Team Providers Care Formulation Scientist Name Role Phone Adarsh Carpenter MD Primary Care Provider [phone] Encounter Details Date Type Department Care Team (Latest Contact Info) Description 04/18/2023 Anticoagulation - Warfarin Visit [place] [facility]/Internal Medicine - Third Floor [address] [place] [address] Anna Betts, RN 210 [place] [address] terminal gauger current use of anticoagulant (Primary Dx); Other [...] often do you attend chur ch or sikhism services? 1 to 4 times per year 04/24/2022 Do you belong to any clubs o r organizations such as alevism groups, unions, fraternal [...] Date Recorded PHQ-9 Total Score 1 04/24/2022 [facility] - Occupational Stress Questionnaire Answer Date Recorded [...] st Contact Info) Description 11/07/2023 10:40 AM HELPER TEACHER Office Visit [place] [address] [address] Wade Donovan MD [address] [phone] documented as of this encounter Procedures Procedure [...] in this encounter Visit Diagnoses Diagnosis terminal gauger current use of anticoagulant- Primary Other pulmonary embolism without acute cor pulmonale, unspecified chronicity (HCC) documented in this encounter Care Teams Formulation Scientist Relationship Specialty Start Date End Date Adarsh Carpenter MD [address] [place] [address] PCP - General 05/07/18 07/18/23 documented as of this encounter
--- OUTSIDE RECORDS SUMMARY | 2023-11-01 12:22 | XMS_ITS | Encounter Summary ---
Author Name Unknown Organization [facility] er Address [address] [place] [address] Care Team Providers Care Automobile Assembly Supervisor Name Role Phone Adarsh Carpenter MD Primary Care Provider [phone] Reason for Visit * Reason Comments Med Refill Encounter Details Date Type Department Care Team (Late st Contact Info) Description 04/22/2023 Refill [place] [address] [place] [address] Adarsh Carpenter MD [address] [place] [address] Multiple sclerosis (HCC) Social History Tobacco Use [...] 1 04/24/2022 [facility] - Occupational Stress Questionnaire Answer Date [...] st Contact Info) Description 11/07/2023 10:40 AM COMB SETTER Office Visit [place] [address] [place] [address] Wade Donovan MD [address] [place] [phone] documented as of this encounter Visit Diagnoses Diagnosis Multiple sclerosis (HCC) Multiple sclerosis documented in this encounter Care Teams Automobile Assembly Supervisor Relationship Specialty Start Date End Date Adarsh Carpenter MD [address] [place] [address] PCP - General 05/07/18 07/18/23 documented as of this encounter
--- OUTSIDE RECORDS SUMMARY | 2023-11-01 12:22 | XMS_ITS | Encounter Summary ---
Author Name Unknown Organization [facility] er Address [address] [place] [address] Care Team Providers Care Cooperative Manager Name Role Phone Adarsh Carpenter MD Primary Care Provider [phone] Encounter Details Date Type Department Care Team (Latest Contact Info) Description 03/21/2023 Anticoagulation - Warfarin Visit [facility]/Internal Medicine - Third Floor [address] [place] [address] Iliana Doyle, RN 210 [place] [address] emt 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 current use of [...] often do you attend chur ch or mormon services? 1 to 4 times per year [...] Date Recorded PHQ-9 Total Score 1 04/24/2022 [facility] Questionnaire Answer Date [...] st Contact Info) Description 11/07/2023 10:40 AM MANUFACTURE SPECIALIST Office Visit [place] [address] [place] [address] Wade Donovan MD [address] [phone] documented as of this encounter Procedures Procedure [...] documented in this encounter Visit Diagnoses Diagnosis emt 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 current use of anticoagulant- Primary Other pulmonary embolism without acute cor pulmonale, unspecified chronicity (HCC) documented in this encounter Care Teams Cooperative Manager Relationship Specialty Start Date End Date Adarsh Carpenter MD [address] [place] [address] PCP - General 05/07/18 07/18/23 documented as of this encounter
--- OUTSIDE RECORDS SUMMARY | 2023-11-01 12:22 | XMS_ITS | Encounter Summary ---
Author Name Unknown Organization [facility] er Address [address] [place] [address] Care Team Providers Care Strip Cutting Machine Operator Name Role Phone Adarsh Carpenter MD Primary Care Provider [phone] Reason for Referral * Consultation (Routine) - Authorized Specialty Diagnoses / Procedures Referred By Contac t Referred To Contact [facility] Care Diagnoses Mixed hyperlipidemia Adarsh Carpenter MD [address] [place] [address] [facility] Remote Monitoring [address] [place] [address] Referral ID Status Reason Start Date Expiration Date V isits Requested Visits Authorized [id number] Authorized 05/02/2023 05/02/2024 1 1 Encounter Details Date Type Department Care Team (Late st Contact Info) Description 05/02/2023 Orders Only SE Internal Medicine [address] [place] [address] Adarsh Carpenter MD [address] [place] [address] Mixed hyperlipidemia Social History Tobacco Use Types [...] week 04/24/2022 How often do you attend [facility] or roman catholic services? 1 to 4 [...] Total Score 1 04/24/2022 [facility] [place] [facility] - [...] st Contact Info) Description 11/07/2023 10:40 AM FLOUR MIXER HELPER Office Visit [place] [address] [address] Wade Donovan MD [address] [phone] Scheduled Referrals Name Type Priority Associated Diagnoses Orde r Schedule Ambulatory Referral for Remote Monitoring Outpatient Referral Routine Mixed hyperlipidemia Ordered: 05/02/2023 documented as of this encounter Visit Diagnoses Diagnosis Mixed hyperlipidemia documented in this encounter Care Teams Strip Cutting Machine Operator Relationship Specialty Start Date End Date Adarsh Carpenter MD 1705 [facility] 20 [place] [address] PCP - General 05/07/18 07/18/23 documented as of this encounter
--- OUTSIDE RECORDS SUMMARY | 2023-11-01 12:22 | XMS_ITS | Encounter Summary ---
Author Name Unknown Organization [facility] er Address [address] [place] [address] Care Team Providers Care Energy Specialist Name Role Phone Adarsh Carpenter MD Primary Care Provider [phone] Encounter Details Date Type Department Care Team (Latest Contact Info) Description 03/07/2023 Anticoagulation - Warfarin Visit SE [facility]/Internal Medicine - Third Floor [address] [place] [address] Dolores Cleary, RN 210 [place] [address] terminal gauger current use of [...] often do you attend chur ch or latter-day services? 1 to 4 times [...] Date Recorded PHQ-9 Total Score 1 04/24/2022 [facility] Questionnaire Answer Date [...] st Contact Info) Description 11/07/2023 10:40 AM WELDING MACHINE OPERATOR SUBMERGED ARC Office Visit [address] [address] [place] [address] [place] [phone] documented as of this encounter Procedures Procedure [...] Diagnosis MCFP current use of anticoagulant- Primary Other pulmonary embolism without acute cor pulmonale, unspecified chronicity (HCC) documented in this encounter Care Teams Energy Specialist Relationship Specialty Start Date End Date Adarsh Carpenter MD [address] [place] [address] PCP - General 05/07/18 07/18/23 documented as of this encounter
--- OUTSIDE RECORDS SUMMARY | 2023-11-01 12:23 | XMS_ITS | Encounter Summary ---
Author Name Unknown Organization [facility] er Address [address] [place] [address] Care Team Providers Care Ironworker Machine Operator Name Role Phone Adarsh Carpenter MD Primary Care Provider [phone] Reason for Visit * Reason Comments Med Refill Encounter Details Date Type Department Care Team (Late st Contact Info) Description 10/27/2022 Refill [place] [address] [place] [address] Adarsh Carpenter MD [address] [place] [address] Mixed hyperlipidemia Social History Tobacco Use Types [...] often do you attend chur ch or oriental orthodox services? 1 to 4 times per [...] Date Recorded PHQ-9 Total Score 1 04/24/2022 [facility] - Occupational [...] schedule a med review with Dr Mauricio. R REELER * Telephone Encounter - Audra Loo LPN [...] Last 2 Encounters: 06/21/22 102/70 05/29/22 115/72 R REELER documented in this encounter Plan of Treatment Upcoming Encounters Date Type Department Care Team (Late st Contact Info) Description 11/07/2023 10:40 AM PAPER REELER Office Visit [address] [address] Wade Donovan MD [address] [place] [phone] documented as of this encounter Visit Diagnoses Diagnosis Mixed hyperlipidemia documented in this encounter Care Teams Ironworker Machine Operator Relationship Specialty Start Date End Date Adarsh Carpenter MD [facility] [address] [address] PCP - General 05/07/18 07/18/23 documented as of this encounter
--- OUTSIDE RECORDS SUMMARY | 2023-11-01 12:23 | XMS_ITS | Encounter Summary ---
Author Name Unknown Organization [facility] er Address [address] [place] [address] Care Team Providers Care Heat Reader Name Role Phone Adarsh Carpenter MD Primary Care Provider [phone] Encounter Details Date Type Department Care Team (Latest Contact Info) Description 12/27/2022 Anticoagulation - Warfarin Visit SE [facility]/Internal Medicine - Third Floor [address] [place] [address] Anna Betts, RN 210 [facility] [place] [address] powder cutting operator current use of anticoagulant (Primary Dx); [...] any clubs o r organizations such as bahai groups, unions, fraternal [...] PHQ-9 Total Score 1 04/24/2022 [facility]ational Stress Questionnaire Answer [...] of next INR. Patient is a home ilz and has been subtherapeutic for 6 weeks now, therefore, one dose increase to maintenance plan provided, 10% after changing one day from 2mg to 4mg documented in this encounter Plan of Treatment Upcoming Encounters Date Type Department Care Team (Late st Contact Info) Description 11/07/2023 10:40 AM CERTIFIED SURGICAL TECHNICIAN Office Visit [place] [address] [address] [place] [address] [place] [phone] documented as of this encounter Procedures Procedure [...] (HCC) documented in this encounter Care Teams Heat Reader Relationship Specialty Start Date End Date Adarsh Carpneter MD [address] [place] [address] PCP - General 05/07/18 07/18/23 documented as of this encounter
--- OUTSIDE RECORDS SUMMARY | 2023-11-01 12:23 | XMS_ITS | Encounter Summary ---
Author Name Unknown Organization [facility] er Address [address] [place] [address] Care Team Providers Care Restaurant Cashier Name Role Phone Adarsh Carpenter MD Primary Care Provider [phone] Encounter Details Date Type Department Care Team (Latest Contact Info) Description 01/11/2023 Anticoagulation - Warfarin Visit SE [facility]/Internal Medicine - Third Floor [address] [place] [address] Iliana Doyle, RN 210 [place] [address] tape controlled machine stitcher current use of anticoagulant (Primary Dx); Other [...] any clubs o r organizations such as mu-ism groups, unions, fraternal [...] Total Score 1 04/24/2022 [facility] - Occupational Stress Questionnaire Answer Date [...] this encounter Progress Notes * Iliana Doyle, ROBERT - 01/11/2023 10:01 AM CDT Anticoagulation Clinic [...] st Contact Info) Description 11/07/2023 10:40 AM WINE CELLAR STOCK CLERK Office Visit [place] [address] [address] Wade Donovan MD [address] [address] documented as of this encounter Procedures Procedure [...] documented in this encounter Visit Diagnoses Diagnosis tape controlled machine stitcher current use of anticoagulant- Primary Other pulmonary embolism without acute cor pulmonale, unspecified chronicity (HCC) documented in this encounter Care Teams Restaurant Cashier Relationship Specialty Start Date End Date Adarsh Carpenter MD [address] [place] [address] PCP - General 05/07/18 07/18/23 documented as of this encounter
--- OUTSIDE RECORDS SUMMARY | 2023-11-01 12:23 | XMS_ITS | Encounter Summary ---
Author Name Unknown Organization [facility] er Address [address] [place] [address] Care Team Providers Care Member Certification Manager Name Role Phone Adarsh Carpenter MD Primary Care Provider [phone] Encounter Details Date Type Department Care Team (Latest Contact Info) Description 12/13/2022 Anticoagulation - Warfarin Visit SE [facility]/Internal Medicine - Third Floor [address] [place] [address] Iliana Doyle, RN 210 [place] [address] remote computer terminal operator current [...] PHQ-9 Total Score 1 04/24/2022 [facility] Questionnaire Answer Date Recorded [...] st Contact Info) Description 11/07/2023 10:40 AM QUESTIONED DOCUMENTS EXAMINER Office Visit [place] [address] [address] Wade Donovan MD [address] [address] documented as of this encounter Procedures Procedure [...] documented in this encounter Visit Diagnoses Diagnosis remote computer terminal operator current use of anticoagulant- Primary Other pulmonary embolism without acute cor pulmonale, unspecified chronicity (HCC) documented in this encounter Care Teams Member Certification Manager Relationship Specialty Start Date End Date Adarsh Carpenter MD [address] [address] PCP - General 05/07/18 07/18/23 documented as of this encounter
--- OUTSIDE RECORDS SUMMARY | 2023-11-01 12:23 | XMS_ITS | Encounter Summary ---
Author Name Unknown Organization [facility] er Address [address] [place] [address] Care Team Providers Care Rotary Driller Helper Name Role Phone Adarsh Carpenter MD Primary Care Provider [phone] Encounter Details Date Type Department Care Team (Latest Contact Info) Description 11/01/2022 Anticoagulation - Warfarin Visit SE [facility]/Internal Medicine - Third Floor [address] [place] [address] Dolores Cleary, RN 210 [place] [address] meterman current use of anticoagulant (Primary Dx); Other [...] PHQ-9 Total Score 1 04/24/2022 [facility] Questionnaire Answer Date [...] have not been changed. AVS not mailed. ET EDGER documented in this encounter Plan of Treatment Upcoming Encounters Date Type Department Care Team (Late st Contact Info) Description 11/07/2023 10:40 AM GUSSET EDGER Office Visit [place] [address] [place] [address] Wade Donovan MD [address] [place] [phone] documented as of this encounter Procedures Procedure [...] documented in this encounter Visit Diagnoses Diagnosis meterman current use of anticoagulant- Primary Other pulmonary embolism without acute cor pulmonale, unspecified chronicity (HCC) documented in this encounter Care Teams Rotary Driller Helper Relationship Specialty Start Date End Date Adarsh Carpenter MD [address] [place] [address] PCP - General 05/07/18 07/18/23 documented as of this encounter
--- OUTSIDE RECORDS SUMMARY | 2023-11-01 12:23 | XMS_ITS | Encounter Summary ---
Author Name Unknown Organization [facility] er Address [address] [place] [address] Care Team Providers Care Body Presser Name Role Phone Adarsh Carpenter MD Primary Care Provider [phone] Reason for Visit * Reason Onset Date Comments UTI 02/05/2023 Encounter Details Date Type Department Care Team (Late st Contact Info) Description 02/05/2023 Telephone [place] [address] [place] [address] Adarsh Carpenter MD [address] [place] [address] UTI Social History Tobacco Use Types Packs/Day [...] Total Score 1 04/24/2022 [facility] [...] tomorrow if ok. Please call Nelia @ [phone] to discuss. documented in this encounter Plan of Treatment Upcoming Encounters Date Type Department Care Team (Late st Contact Info) Description 11/07/2023 10:40 AM DIRECTOR OF ROOMS Office Visit [address] [address] [place] [address] [place] [phone] documented as of this encounter Visit Diagnoses Not on filedocumented in this encounter Care Teams Body Presser Relationship Specialty Start Date End Date Adarsh Carpenter MD [address] [place] [phone] PCP - General 05/07/18 07/18/23 documented as of this encounter
--- OUTSIDE RECORDS SUMMARY | 2023-11-01 12:23 | XMS_ITS | Encounter Summary ---
Author Name Unknown Organization [facility] er Address [address] [place] [address] Care Team Providers Care Nutrient Management Specialist Name Role Phone Adarsh Carpenter MD Primary Care Provider [phone] Encounter Details Date Type Department Care Team (Latest Contact Info) Description 11/29/2022 Anticoagulation - Warfarin Visit SE [facility]/Internal Medicine - Third Floor [address] [place] [address] Dolores Cleary, RN 210 [place] [address] ledger poster current use of anticoagulant (Primary Dx); Other [...] Date Recorded PHQ-9 Total Score 1 04/24/2022 [facility]ational [facility] [...] of next INR. AVS mailed to patient. R INSTALLER documented in this encounter Plan of Treatment Upcoming Encounters Date Type Department Care Team (Late st Contact Info) Description 11/07/2023 10:40 AM PAVER INSTALLER Office Visit [place] [address] [facility] 20 [place] [address] Wade Donovan MD [address] [place] [address] documented as of this encounter Procedures Procedure [...] documented in this encounter Visit Diagnoses Diagnosis ledger poster current use of anticoagulant- Primary Other pulmonary embolism without acute cor pulmonale, unspecified chronicity (HCC) documented in this encounter Care Teams Nutrient Management Specialist Relationship Specialty Start Date End Date Adarsh Carpenter MD [address] [place] [address] PCP - General 05/07/18 07/18/23 documented as of this encounter
--- OUTSIDE RECORDS SUMMARY | 2023-11-01 12:23 | XMS_ITS | Encounter Summary ---
Author Name Unknown Organization [facility] er Address [address] [place] [address] Care Team Providers Care Station Master Name Role Phone Adarsh Carpenter MD Primary Care Provider [phone] Encounter Details Date Type Department Care Team (Late st Contact Info) Description 12/27/2022 11:15 AM CDT Lab [place] [address] [place] [address] Prostate cancer screening; Prediabetes; Screening cholesterol level; [...] often do you attend chur ch or buddhist services? 1 to 4 times [...] Date Recorded PHQ-9 Total Score 1 04/24/2022 [facility] Occupat ional Health - [...] st Contact Info) Description 11/07/2023 10:40 AM PROPERTY FIELD ADJUSTER Office Visit [address] [address] Wade Donovan MD [address] [place] [phone] documented as of this encounter Procedures Procedure [...] Rate (eGFR) >60 12/27/2022 11:34 AM CDT [facility] Comment: GFR calculated from serum creatinine value Chronic Kidney Disease less than 60 mL/min/1.73 m2 Kidney Failure less than 15 mL/min/1.73 m2 Note: effective 09/27/2022: 2020 CKD-EPI Equation used 12/27/2022 10:5 4 AM CDT 12/27/2022 10:54 AM CDT Adarsh Carpenter MD LAB BLOOD ORDERABLES [facility] [address] [place] [address] * (ABNORMAL) CBC Branch Off w/Diff (12/27/2022 [...] - 15.6 % 12/27/2022 11:34 AM CDT [facility] [place] Lymphocytes % 18.7 % 12/27/2022 11:34 AM CDT [facility] [place] Mid-size Cells 6.6 % 12/27/2022 11:34 AM CDT [facility] [place] Granulocytes/Mason trophils 74.7 % 12/27/2022 11:34 AM CDT [facility] [place] Lymphocytes Absolute 1.1 0.9 - 2.9 K/uL 12/27/2022 11:34 AM CDT [facility] [place] MIDS Absolute 0.4 0.4 - 1.5 K/uL 12/27/2022 11:34 AM CDT [facility] [place] Granulocytes/Mason trophils Absolute 4.5 1.7 - 7.0 K/uL 12/27/2022 11:34 AM CDT [facility] [place] Blood (Blood, Venous) 12/27/2022 10:54 AM CDT 12/27/2022 10:54 AM CDT Adarsh Carpenter MD LAB BLOOD ORDERABLES [facility] [place] [address] [place] [address] * (ABNORMAL) Basic metabolic panel (12/27/2022 10:54 AM CDT) Sodium 140 135 - 145 mmol/L 12/27/2022 11:34 AM CDT [facility] [place] Potassium 4.5 3.5 - 5.1 mmol/L 12/27/2022 11:34 AM CDT [facility] [place] Comment: . Chloride 108(H) 98 - 107 mmol/L 12/27/2022 11:34 AM CDT [facility] [place] Comment: . CO2 32(H) 22 - 31 mmol/L 12/27/2022 11:34 AM CDT [facility] [place] Comment: . Creatinine 0.8 0.6 - 1.4 mg/dL 12/27/2022 11:34 AM CDT [facility] [place] Comment: . BUN 13 5 - 25 mg/dL 12/27/2022 11:34 AM CDT [facility] [place] Comment: . Glucose 94 70 - 100 mg/dL 12/27/2022 11:34 AM CDT [facility] Calcium, Total,S 9.5 8.4 - 10.2 mg/dL 12/27/2022 11:34 AM CDT [facility] [place] Comment: . Blood 12/27/2022 10:5 4 AM CDT 12/27/2022 10:54 AM CDT Adarsh Carpenter MD LAB BLOOD ORDERABLES [facility] [place] [address] [place] [address] * (ABNORMAL) Lipid panel (12/27/2022 10:54 AM CDT) Cholesterol 148 0 - 199 mg/dL 12/28/2022 1:30 PM [facility] Comment: Recommended by National Cholesterol Education Program (ATP III) -------- Cholesterol Ranges -------- <200 ?Desirable 200-239 ? Borderline high >=240 ? High Triglycerides 95 0 - 149 mg/dL 12/28/2022 1:30 PM [facility] Comment: -------- TRIG Ranges -------- <150 ?Normal 150-199 ? Borderline high 200-499 ? High >=500 ? Very high HDL 37(L) 40 - 250 mg/dL 12/28/2022 1:30 PM [facility] Comment: -------- HDL Ranges -------- <40 ?Low 40-59 ?Normal >=60 ? Optimal LDL Calculated 92 0 - 99 mg/dL 12/28/2022 1:30 PM [facility] Comment: -------- LDL Ranges -------- <100 ? Optimal 100-129 ?Near optimal/above optimal 130-159 ?Borderline high 160-189 ?High >=190 ?Very high Fasting? Yes 12/27/2022 10:54 AM CDT [facility] Blood 12/27/2022 10:5 4 AM CDT 12/28/2022 12:35 PM CDT Adarsh Carpenter MD LAB BLOOD ORDERABLES Performing Organization Address [facility] Co de Phone Number [facility] [address] [place], [place] [id number] * Hemoglobin A1c (12/27/2022 10:54 AM CDT) Hemoglobin A1C 5.5 4.0 - 5.6 % A1C 12/28/2022 7:31 PM CDT [facility] Comment: Reference Range 4.0-5.6% is [...] MD LAB BLOOD ORDERABLES Performing Organization Address [facility] Co de Phone Number [facility] [address] [place] [address] * PSA (12/27/2022 10:54 AM CDT) Total PSA 2.0 0.0 - 5.1 ng/mL 12/28/2022 1:46 PM CDT [facility] Comment: The results [...] method is an immunometric assay manufactured by [employer] and performed on the [employer] Shower 5600 system. Biotin levels in serum remain [...] CDT Adarsh Carpenter MD LAB BLOOD ORDERABLES [facility] [address] [place] [address] documented in this encounter Visit Diagnoses Diagnosis Prostate cancer screening Special screening for malignant neoplasm of prostate Prediabetes Other abnormal glucose Screening cholesterol level Screening for lipoid disorders Screening for deficiency anemia Screening for other and unspecified deficiency anemia documented in this encounter Care Teams Station Master Relationship Specialty Start Date End Date Adarsh Carpenter MD [address] [place] [address] PCP - General 05/07/18 07/18/23 documented as of this encounter
--- OUTSIDE RECORDS SUMMARY | 2023-11-01 12:23 | XMS_ITS | Encounter Summary ---
Author Name Unknown Organization [facility] er Address [address] [place] [address] Care Team Providers Care Asset Protection Manager Name Role Phone Adarsh Carpenter MD Primary Care Provider [phone] Encounter Details Date Type Department Care Team (Latest Contact Info) Description 11/15/2022 Anticoagulation - Warfarin Visit [facility]/Internal Medicine - Third Floor [address] [place] [address] Dolores Cleary, RN 210 [place] [address] assistant terminal manager current use [...] often do you attend chur ch or restoration services? 1 to 4 times [...] Total Score 1 04/24/2022 [facility] Questionnaire Answer Date [...] have not been changed. AVS not mailed. ME SPECIALIST documented in this encounter Plan of Treatment Upcoming Encounters Date Type Department Care Team (Late st Contact Info) Description 11/07/2023 10:40 AM RESUME SPECIALIST Office Visit [place] [address] [place] [address] [place] [address] [place] [phone] documented as of this encounter Procedures Procedure [...] Diagnosis [facility]PC current use of anticoagulant- Primary Other pulmonary embolism without acute cor pulmonale, unspecified chronicity (HCC) documented in this encounter Care Teams Asset Protection Manager Relationship Specialty Start Date End Date Adarsh Carpenter MD [address] [place] [address] PCP - General 05/07/18 07/18/23 documented as of this encounter
--- OUTSIDE RECORDS SUMMARY | 2023-11-01 12:23 | XMS_ITS | Encounter Summary ---
Author Name Unknown Organization [facility] er Address [address] [place] [address] Care Team Providers Care Car Distributor Name Role Phone Adarsh Carpenter MD Primary Care Provider [phone] Encounter Details Date Type Department Care Team (Late st Contact Info) Description 12/08/2022 Telephone [place] [address] [place] [address] Adarsh Carpenter MD [address] [place] [address] Social History Tobacco Use Types Packs/Day Years [...] How often do you attend chur or holiness services? 1 to 4 times per year [...] 04/24/2022 [facility] - Occupational Stress Questionnaire Answer [...] LPN - 12/08/2022 1:55 PM CST Noted HEAD STRIPPER * Telephone Encounter - Lalitha Pathak - 12/08/2022 1:07 PM CST Durable Medical Equipment order faxed to [facility]. HEAD STRIPPER * Telephone Encounter - Sofia Denson RN - 12/08/2022 12:13 PM CST Please fax to [facility]. HEAD STRIPPER * Telephone Encounter - Adarsh Carpenter MD - 12/08/2022 11:48 AM HOGSHEAD STRIPPER Order printed and signed. HEAD STRIPPER * Telephone Encounter - Sofia Denson RN - 12/08/2022 9:33 AM CST Please see pended Rx for catheter supplies. Josue Doefield requesting this. HEAD STRIPPER documented in this encounter Plan of Treatment Upcoming Encounters Date Type Department Care Team (Late st Contact Info) Description 11/07/2023 10:40 AM HOGSHEAD STRIPPER Office Visit [address] [address] Wade Donovan MD [address] [address] documented as of this encounter Visit Diagnoses Diagnosis Neurogenic bladder- Primary Neurogenic bladder, NOS documented in this encounter Care Teams Car Distributor Relationship Specialty Start Date End Date Adarsh Carpenter MD [address] [address] PCP - General 05/07/18 07/18/23 documented as of this encounter
--- OUTSIDE RECORDS SUMMARY | 2023-11-01 12:23 | XMS_ITS | Encounter Summary ---
Author Name Unknown Organization [facility] er Address [address] [place] [address] Care Team Providers Care Search Director Name Role Phone Adarsh Carpenter MD Primary Care Provider [phone] Reason for Visit * Reason Onset Date Comments Update from Dr. South 02/07/2023 Encounter Details Date Type Department Care Team (Late st Contact Info) Description 02/07/2023 Telephone [place] [address] [place] [address] Adarsh Carpenter MD 1705 [facility] 20 [place] [address] South Social History Tobacco [...] often do you attend chur ch or holiness services? 1 to 4 times [...] Date Recorded PHQ-9 Total Score 1 04/24/2022 [facility]ational [facility] Questionnaire Answer Date [...] Lalitha Pathak - 02/07/2023 2:33 PM CDT [facility] nurse called and scheduled hospital discharge F/U [...] questions after the notes arrived here from [place] (after reviewing) you could call her. documented in this encounter Plan of Treatment Upcoming Encounters Date Type Department Care Team (Late st Contact Info) Description 11/07/2023 10:40 AM MANAGER MOBILITY Office Visit [place]y [place] 1705 [facility] 20 [place] [address] Wade Donovan MD 1705 [facility] 20 [place] [address] documented as of this encounter Visit Diagnoses Not on filedocumented in this encounter Care Teams Search Director Relationship Specialty Start Date End Date Adarsh Carpenter MD 170 [facility] 20 [place] [address] PCP - General 05/07/18 07/18/23 documented as of this encounter
--- OUTSIDE RECORDS SUMMARY | 2023-11-01 12:23 | XMS_ITS | Encounter Summary ---
Author Name Unknown Organization [facility] er Address [address] [place] [address] Care Team Providers Care Director Immunology Name Role Phone Adarsh Carpenter MD Primary Care Provider [phone] Reason for Visit * Reason Comments Medication Visit Encounter Details Date Type Department Care Team (Late st Contact Info) Description 12/27/2022 10:00 AM CDT Office Visit [place] [address] [place] [address] Adarsh Carpenter MD [address] [place] [address] Encounter for wellness examination in adult (Primary Dx); Multiple sclerosis (HCC); Screening for deficiency anemia; Prediabetes; Screening cholesterol level; Prostate cancer screening; History of pulmonary embolism; Current use of mcfp anticoagulation; Neurogenic bladder; Incontinence of feces, unspecified [...] any clubs o r organizations such as catholic groups, unions, fraternal [...] [facility] Health - Occupational Stress Questionnaire Answer Date [...] patient has recently been seen in the [place] emergency room on 2 occasions this winter [...] and we will send a request into [facility] for DME equipment. SLEEP APNEA [...] History of pulmonary embolism Current use of mcfp anticoagulation Neurogenic bladder Incontinence of feces, unspecified [...] st Contact Info) Description 11/07/2023 10:40 AM INTERNAL COMMUNICATIONS SPECIALIST Office Visit [place] [address] [address] Wade Donovan MD 170[facility] 20 [place] [address] documented as of this encounter Results * PSA (12/27/2022 10:54 AM CDT) Total PSA 2.0 0.0 - 5.1 ng/mL 12/28/2022 1:46 PM CDT [facility] Comment: The results from this [...] method is an immunometric assay manufactured by [employer] and performed on the Profex 5600 system. Biotin levels in serum remain [...] 4 AM CDT 12/28/2022 12:39 PM CDT Narrative Authorizing Provider Result Donna Carpenter MD LAB BLOOD ORDERABLES [facility] [address] [place] [address] * Hemoglobin A1c (12/27/2022 10:54 AM CDT) Hemoglobin A1C 5.5 4.0 - 5.6 % A1C 12/28/2022 7:31 PM CDT [facility] Comment: Reference Range 4.0-5.6% is for non- adults >=18 yrs <5.6% ? Non-Diabetic 5.7-6.4% ??Increased risk of Diabetes >=6.5% ?Indicative of Diabetes <7.0% ? ADA goal for glycemic control Methodology may not detect all hemoglobin variants which can affect A1c results. Method certified by National Glycohemoglobin Standardization Program. Blood 12/27/2022 10:5 4 AM CDT 12/28/2022 12:35 PM CDT D. Hang Carpenter MD LAB BLOOD ORDERABLES Performing Organization Address City/State/[facility] Co de Phone Number [facility] [address] [place] [address] * (ABNORMAL) Lipid panel (12/27/2022 10:54 AM CDT) Cholesterol 148 0 - 199 mg/dL 12/28/2022 1:30 PM T [facility] Comment: Recommended by National Cholesterol Education Program (ATP III) -------- Cholesterol Ranges -------- <200 ?Desirable 200-239 ? Borderline high >=240 ? High Triglycerides 95 0 - 149 mg/dL 12/28/2022 1:30 PM CDT [facility] Comment: -------- TRIG Ranges -------- <150 ?Normal 150-199 ? Borderline high 200-499 ? High >=500 ? Very high HDL 37(L) 40 - 250 mg/dL 12/28/2022 1:30 PM T [facility] Comment: -------- HDL Ranges -------- <40 ?Low 40-59 ?Normal >=60 ? Optimal LDL Calculated 92 0 - 99 mg/dL 12/28/2022 1:30 PM CDT [facility] Comment: -------- LDL Ranges -------- <100 ? Optimal 100-129 ?Near optimal/above optimal 130-159 ?Borderline high 160-189 ?High >=190 ?Very high Fasting? Yes 12/27/2022 10:54 AM CDT [facility] Blood 12/27/2022 10:5 4 AM CDT 12/28/2022 12:35 PM CDT Adarsh Carpenter MD LAB BLOOD ORDERABLES [facility] [address] [place] [address] * (ABNORMAL) Basic metabolic panel (12/27/2022 10:54 AM CDT) Sodium 140 135 - 145 mmol/L 12/27/2022 11:34 AM CDT [facility] [employer] Potassium 4.5 3.5 - 5.1 mmol/L 12/27/2022 11:34 AM CDT [facility] [employer] Comment: . Chloride 108(H) 98 - 107 mmol/L 12/27/2022 11:34 AM CDT [facility] [employer] Comment: . CO2 32(H) 22 - 31 mmol/L 12/27/2022 11:34 AM CDT [facility] [employer] Comment: . Creatinine 0.8 0.6 - 1.4 mg/dL 12/27/2022 11:34 AM CDT [facility] [employer] Comment: . BUN 13 5 - 25 mg/dL 12/27/2022 11:34 AM CDT [facility] [employer] Comment: . Glucose 94 70 - 100 mg/dL 12/27/2022 11:34 AM CDT [facility] Calcium, Total,S 9.5 8.4 - 10.2 mg/dL 12/27/2022 11:34 AM CDT [facility] Comment: . Blood 12/27/2022 10:5 4 AM CDT 12/27/2022 10:54 AM CDT Adarsh Carpenter MD LAB BLOOD ORDERABLES [facility] [address] [place] [address] * (ABNORMAL) CBC Branch Off w/Diff (12/27/2022 [...] Cells 6.6 % 12/27/2022 11:34 AM CDT [facility] Granulocytes/Mason trophils 74.7 % 12/27/2022 11:34 AM CDT [facility] Lymphocytes Absolute 1.1 0.9 - 2.9 K/uL 12/27/2022 11:34 AM CDT [facility] MIDS Absolute 0.4 0.4 - 1.5 K/uL 12/27/2022 11:34 AM CDT [facility] Granulocytes/Mason trophils Absolute 4.5 1.7 - 7.0 K/uL 12/27/2022 11:34 AM CDT [facility] Blood (Blood, Venous) 12/27/2022 10:54 AM CDT 12/27/2022 10:54 AM CDT Adarsh Carpenter MD LAB BLOOD ORDERABLES Performing Organization Address City/State/[facility] Co de Phone Number [facility] [address] [place] [address] documented in this encounter Visit Diagnoses Diagnosis [...] venous thrombosis and embolism Current use of manager long term care anticoagulation Neurogenic bladder Neurogenic bladder, NOS Incontinence of feces, unspecified fecal incontinence type Recurrent urinary tract infection Urinary tract infection, site not specified Bladder stones Other calculus in bladder Detrusor instability Other functional disorder of bladder documented in this encounter Care Teams Director Immunology Relationship Specialty Start Date End Date Adarsh Carpenter MD [address] [place] [address] PCP - General 05/07/18 07/18/23 documented as of this encounter
--- OUTSIDE RECORDS SUMMARY | 2023-11-01 12:23 | XMS_ITS | Encounter Summary ---
Author Name Unknown Organization [facility] er Address [address] [place] [address] Care Team Providers Care Bushel Worker Name Role Phone Adarsh Carpenter MD Primary Care Provider [phone] Encounter Details Date Type Department Care Team (Latest Contact Info) Description 01/24/2023 Anticoagulation - Warfarin Visit [facility]/Internal Medicine - Third Floor [address] [place] [address] Iliana Doyle, RN [address] [place] [address] manager terminal current use of [...] Total Score 1 04/24/2022 [facility] Occupational Stress Questionnaire Answer Date [...] st Contact Info) Description 11/07/2023 10:40 AM SOIL SCIENCE TECHNICAL OFFICER Office Visit [place] [address] [address] [place] [address] [place] [phone] documented as of this encounter Procedures Procedure [...] (HCC) documented in this encounter Care Teams Bushel Worker Relationship Specialty Start Date End Date Adarsh Carpenter MD [address] [place] [address] PCP - General 05/07/18 07/18/23 documented as of this encounter
--- OUTSIDE RECORDS SUMMARY | 2023-11-01 12:23 | XMS_ITS | Encounter Summary ---
Author Name Unknown Organization [facility] er Address [address] [place] [address] Care Team Providers Care Dictaphone Mechanic Name Role Phone Adarsh Carpenter MD Primary Care Provider [phone] Encounter Details Date Type Department Care Team (Late st Contact Info) Description 12/28/2022 Telephone [place] [address] [place] [address] Adarsh Carpenter MD [address] [place] [address] Social History Tobacco Use Types Packs/Day Years [...] How often do you attend chur or yazdanism services? 1 to 4 times per year 04/24/2022 Do you belong to any clubs o r organizations such as mormonism groups, unions, fraternal [...] 04/24/2022 [facility] - Occupational Stress [...] him to our sleep medicine team at [facility] for further evaluation. I would be unable to refer him to [place] or other places because they generally would require the patient to see one of their clinical rehab specialist or providers first and thenthey would be able to help order further testing. The simplest thing is just to refer to [facility] to consult with the sleep medicine [...] is willing to have this scheduled for [place] let me know and we will place [...] sleep study done possibly even through [facility]. See if he can find a copy of the report either on [facility]'s charts or care everywhere. Let me know what you come up with documented in this encounter Plan of Treatment Upcoming Encounters Date Type Department Care Team (Late st Contact Info) Description 11/07/2023 10:40 AM NATIONAL INSURANCE OFFICER Office Visit [address] [address] Wade Donovan MD [address] [place] [phone] documented as of this encounter Visit Diagnoses Not on filedocumented in this encounter Care Teams Dictaphone Mechanic Relationship Specialty Start Date End Date Adarsh Carpenter MD [address] [facility] [place] [address] PCP - General 05/07/18 07/18/23 documented as of this encounter
--- OUTSIDE RECORDS SUMMARY | 2023-11-01 12:24 | XMS_ITS | Encounter Summary ---
Author Name Unknown Organization [facility] er Address [address] [place] [address] Care Team Providers Care Highway Engineering Technician Name Role Phone Hali Soriano APRN Primary Care Provider Encounter Details Date Type Department Care Team (Late st Contact Info) Description 09/02/2019 Telephone [place] [address] [place] [address] Adarsh Carpenter MD [address] [place] [address] Social History Tobacco Use Types Packs/Day Years [...] Family Three times a week 08/11/2019 Attends Shinto Services Never 08/11 Active Member of Clubs [...] Answer Date Recorded PHQ-2 Score 9 08/11/2019 [facility] of [...] st Contact Info) Description 11/07/2023 10:40 AM PROPOSAL SPECIALIST Office Visit [address] [address] Wade Donovan MD [address] [place] [phone] documented as of this encounter Visit Diagnoses Not on filedocumented in this encounter Additional Health Concerns Infection Onset Date Last Indicated Resolved Time MSSA 10/04/2018 10/04/2018 06/28/2022 8:27 AM CDT [facility] 06/19/2023 07/04/2023 07/17/2023 2:29 PM CDT [facility] 08/02/2023 08/02/2023 documented as of this encounter Care Teams Highway Engineering Technician Relationship Specialty Start Date End Date Hali Soriano APRN [address] [place] [address] PCP - General Family Medicine 08/02/23 documented as of this encounter
--- OUTSIDE RECORDS SUMMARY | 2023-11-01 12:24 | XMS_ITS | Encounter Summary ---
Author Name Unknown Organization [facility] er Address [address] [place] [address] Care Team Providers Care Row Boss Name Role Phone Hali Soriano APRN Primary Care Provider Encounter Details Date Type Department Care Team ([facility] st Contact Info) Description 08/07/2019 Telephone [place] [address] [place] [address] Adarsh Carpenter MD [address] [place] [address] Social History Tobacco Use Types Packs/Day Years [...] Family Three times a week 08/11/2019 Attends Moravian Services Never 08/11 Active Member of Clubs [...] Answer Date Recorded PHQ-2 Score 9 08/11/2019 [facility] of Occupat ional Health [...] st Contact Info) Description 11/07/2023 10:40 AM PARLIAMENTARY ARCHIVIST Office Visit [address] [address] Wade Donovan MD [address] [place] [phone] documented as of this encounter Visit Diagnoses Not on filedocumented in this encounter Additional Health Concerns Infection Onset Date Last Indicated Resolved Time MSSA 10/04/2018 10/04/2018 06/28/2022 8:27 AM CDT [facility] 06/19/2023 07/04/2023 07/17/2023 2:29 PM CDT MSSA 08/02/2023 08/02/2023 documented as of this encounter Care Teams Row Boss Relationship Specialty Start Date End Date Hali Soriano APRN [address] [place] [address] PCP - General Family Medicine 08/02/23 documented as of this encounter
--- OUTSIDE RECORDS SUMMARY | 2023-11-01 12:24 | XMS_ITS | Encounter Summary ---
Author Name Unknown Organization [facility] er Address [address] [place] [address] Care Team Providers Care Television Engineer Name Role Phone Hali Soriano APRN Primary Care Provider Reason for Visit * Reason Comments Med Refill Encounter Details Date Type Department Care Team (Late st Contact Info) Description 04/06/2019 [place]ill [place] [address] [place] [address] Adarsh Carpenter MD 1705 [facility] 20 [place] [address] Other pulmonary embolism without acute cor pulmonale, [...] st Contact Info) Description 11/07/2023 10:40 AM MUNICIPAL MAINTENANCE WORKER Office Visit [address] [address] Wade Donovan MD [address] [place] [phone] documented as of this encounter Visit Diagnoses Diagnosis Other pulmonary embolism without acute cor pulmonale, unspecified chronicity (HCC)- Primary documented in this encounter Additional Health Concerns Infection Onset Date Last Indicated Resolved Time MSSA 10/04/2018 10/04/2018 06/28/2022 8:27 AM CDT [facility] 06/19/2023 07/04/2023 07/17/2023 2:29 PM CDT [facility] 08/02/2023 08/02/2023 documented as of this encounter Care Teams Television Engineer Relationship Specialty Start Date End Date Hali Soriano APRN [address] [place] [address] PCP - General Family Medicine 08/02/23 documented as of this encounter
--- OUTSIDE RECORDS SUMMARY | 2023-11-01 12:24 | XMS_ITS | Encounter Summary ---
Author Name Unknown Organization [facility] er Address [address] [place] [address] Care Team Providers Care Advertising Intern Name Role Phone Hali Soriano APRN Primary Care Provider Reason for Visit * Reason Onset Date Comments Med Refill 08/05/2018 Encounter Details Date Type Department Care Team (Late Contact Info) Description 08/05/[address] [address] Adarsh Carpenter MD [address] [phone] Social History Tobacco Use Types Packs/Day Years [...] Upcoming Encounters Date Type Department Care Team ([facility] Contact Info) Description 11/07/2023 10:40 AM VEGETABLE WASHER Office Visit [address] [address] Wade Donovan MD [address] [address] documented as of this encounter Visit Diagnoses Not on filedocumented in this encounter Additional Health Concerns Infection Onset Date Last Indicated Resolved Time MSSA 10/04/2018 10/04/2018 06/28/2022 8:27 AM CDT [facility] 06/19/2023 07/04/2023 07/17/2023 2:29 PM CDT [facility] 08/02/2023 08/02/2023 documented as of this encounter Care Teams Advertising Intern Relationship Specialty Start Date End Date Hali Soriano, CIVIL DEFENSE DIRECTOR [address] [place] [address] PCP - General Family Medicine 08/02/23 documented as of this encounter
--- OUTSIDE RECORDS SUMMARY | 2023-11-01 12:24 | XMS_ITS | Encounter Summary ---
Author Name Unknown Organization [facility] er Address [address] [place] [address] Care Team Providers Care Tugboat Operator Name Role Phone Hali Soriano APRN Primary Care Provider Reason for Visit * Reason Onset Date Comments Med Refill Med Refill 11/08/2021 Encounter Details Date Type Department Care Team (Late st Contact Info) Description 10/28/2021 Refill [place] [address] [place] [address] Adarsh Carpenter MD 1705 [facility] 20 [place] [address] Other pulmonary embolism without acute cor pulmonale, [...] Family Three times a week 08/11/2019 Attends Sikhism Services Never 08/11 Active Member of Clubs [...] Date Recorded PHQ-9 Total Score 0 07/23/2020 [facility] of Occupat ional Health - Occupational Stress [...] 10/27/2021 INR 0.9 - 1.1 2.40 (A) RTS ANALYSIS MANAGER documented in this encounter Plan of Treatment Upcoming Encounters Date Type Department Care Team (Late st Contact Info) Description 11/07/2023 10:40 AM REPORTS ANALYSIS MANAGER Office Visit [place] [address] [address] Wade Donovan MD 1705 [facility] 20 [place] [address] documented as of this encounter Visit Diagnoses Diagnosis Other pulmonary embolism without acute cor pulmonale, unspecified chronicity (HCC) documented in this encounter Additional Health Concerns Infection Onset Date Last Indicated Resolved Time MSSA 10/04/2018 10/04/2018 06/28/2022 8:27 AM CDT [facility] 06/19/2023 07/04/2023 07/17/2023 2:29 PM CDT [facility] 08/02/2023 08/02/2023 documented as of this encounter Care Teams Tugboat Operator Relationship Specialty Start Date End Date Hali Soriano APRN [address] [place] [address] PCP - General Family Medicine 08/02/23 documented as of this encounter
--- OUTSIDE RECORDS SUMMARY | 2023-11-01 12:24 | XMS_ITS | Encounter Summary ---
Author Name Unknown Organization [facility] er Address [address] [place] [address] Care Team Providers Care Graduate Rn Name Role Phone Hali Soriano APRN Primary Care Provider Reason for Visit * Reason Onset Date Comments Med Refill 06/03/2020 Encounter Details Date Type Department Care Team (Late st Contact Info) Description 06/03/2020 Refill [place] [address] [place] [address] Adarsh Carpenter MD 1705 [facility] 20 [place] [address] Other pulmonary embolism without acute cor pulmonale, [...] Family Three times a week 08/11/2019 Attends Mormonism Services Never 08/11 Active Member of Clubs [...] Answer Date Recorded PHQ-2 Score 0 01/19/2020 [facility]at ional Health - Occupational Stress [...] st Contact Info) Description 11/07/2023 10:40 AM ASSOCIATE PROFESSOR OF LIBRARY SCIENCE Office Visit [place] [address] [address] Wade Donovan MD [facility] 20 [place] [address] documented as of this encounter Visit Diagnoses Diagnosis Other pulmonary embolism without acute cor pulmonale, unspecified chronicity (HCC) documented in this encounter Additional Health Concerns Infection Onset Date Last Indicated Resolved Time MSSA 10/04/2018 10/04/2018 06/28/2022 8:27 AM CDT [facility] 06/19/2023 07/04/2023 07/17/2023 2:29 PM CDT [facility] 08/02/2023 08/02/2023 documented as of this encounter Care Teams Graduate Rn Relationship Specialty Start Date End Date Hali Soriano, STRAIGHT CUTTER MACHINE [address] [place] [address] PCP - General Family Medicine 08/02/23 documented as of this encounter
--- OUTSIDE RECORDS SUMMARY | 2023-11-01 12:24 | XMS_ITS | Encounter Summary ---
Author Name Unknown Organization [facility] er Address [address] [place] [address] Care Team Providers Care Furnace Repair Mechanic Name Role Phone Hali Soriano APRN Primary Care Provider Encounter Details Date Type Department Care Team (Late st Contact Info) Description 07/28/2020 Telephone [place] [address] [place] [phone] Adarsh Carpenter MD [address] [place] [address] Social History Tobacco Use Types Packs/Day Years [...] Family Three times a week 08/11/2019 Attends Congregational Services Never 08/11 Active Member of Clubs [...] Date Recorded PHQ-9 Total Score 0 07/23/2020 [facility] [...] st Contact Info) Description 11/07/2023 10:40 AM ELECTRONICS TEACHER Office Visit [address] [address] [place] [address] [place] [phone] documented as of this encounter Visit Diagnoses Not on filedocumented in this encounter Additional Health Concerns Infection Onset Date Last Indicated Resolved Time MSSA 10/04/2018 10/04/2018 06/28/2022 8:27 AM CDT MSSA 06/19/2023 07/04/2023 07/17/2023 2:29 PM CDT MSSA 08/02/2023 08/02/2023 documented as of this encounter Care Teams Furnace Repair Mechanic Relationship Specialty Start Date End Date Hali Soriano APRN [address] [place] [address] PCP - General Family Medicine 08/02/23 documented as of this encounter
== END 2023-10-31 11:50 | disposition home or self-care (01) | DRG 872 ==
LOC: ED 15:16 → MEDSURG 15:53
PROVIDERS: Family Medicine; Admitting Provider Family Medicine; Emergency Provider Family Medicine; PCP Family Medicine; Visit Provider Family Medicine
DX: A41.9 Sepsis, unspecified organism (principal); N39.0 Urinary tract infection, site not specified; R65.20 Severe sepsis without septic shock; B96.20 Unspecified Escherichia coli [E. coli] as the cause of diseases classified elsewhere; N31.9 Neuromuscular dysfunction of bladder, unspecified; G35 Multiple sclerosis; G93.89 Other specified disorders of brain; Z86.711 Personal history of pulmonary embolism; Z79.01 Long term (current) use of anticoagulants; D32.0 Benign neoplasm of cerebral meninges
CPT/HCPCS: 36415; 51702; 70450; 70553; 71045; 80048; 80053; 81001; 82803; 83605; 83880; 84145; 84484; 85025; 85027; 85610; 86140; 87040; 87081; 87086; 87186; 87631; 93005; 93306; 94761; 97166; 99285; A9270; A9575; J0696; J2543; J3370; J7030

== ENCOUNTER 2023-11-26 14:51 | Outpatient (CLI) | payer MEDICARE, BC, SELFPAY ==
--- NOTE | 2023-11-26 15:00 | US_ITS ---
Patient: ISA ERVIN Facility:?[facility] Patient ID:?[id number] Site Patient ID:?[id number]. Site :?[id number] Study:?US-Abdomen renal-11/26/2023 3:43:01 PM Ordering Physician:FARZAD Final Report: INDICATION: History of renal cysts and kidney stones. TECHNIQUE: Ultrasound renal and bladder complete. Pina-scale and color Doppler sonographic images were acquired of the kidneys and urinary bladder. COMPARISON: Images from a 08/21/2023 renal ultrasound. Report was not available. FINDINGS: Right kidney:Normal cortical echogenicity. Benign-appearing simple cyst measuring 2.8 and 3.9 cm. No solid renal mass. No stones. No hydronephrosis. 10.4 cm pole to pole. Left kidney:Normal cortical echogenicity. No solid renal mass. No stones. No hydronephrosis.11.7 cm pole to pole. Resistive index . Bladder: Thick-walled. IMPRESSION: Unremarkable renal ultrasound. No visible stones. Dictated by Reggie Moe MD @ 11/27/2023 8:39:34 AM Signed by:?Reggie Moe MD @11/27/2023 8:39:34 AM (Electronic Signature)
== END 2023-11-26 14:52 | disposition home or self-care (01) ==
LOC: US 14:52
PROVIDERS: PCP Family Medicine; Visit Provider Urology
DX: N20.0 Calculus of kidney (principal)
CPT/HCPCS: 76775

== ENCOUNTER 2024-08-19 14:08 | Outpatient (CLI) | payer MEDICARE, BC, SELFPAY ==
--- OUTSIDE RECORDS SUMMARY | 2024-08-19 14:13 | XMS_ITS | Encounter Summary ---
Author Organization [facility] er Address [address] [place] [address] Care Team Providers Care Interior Plant Caretaker Name Role Phone Wade Donovan MD Primary Care Provider [phone] Reason for Visit * Reason Onset Date Comments Lab Results Urine 08/11/2024 Encounter Details Date Type Department Care Team (Late st Contact Info) Description 08/11/2024 Telephone [place] [address] [place] [phone] Wade Donovan MD [address] [place] [phone] Lab Results Urine Social History Tobacco Use Types Packs/Day Years Used Date Smoking Tobacco: Never Smokeless Tobacco: Former Alcohol Use Standard Drinks/Week Comments No 0 (1 standard drink = 0.6 oz pur e alcohol) Humiliation, Afraid, Rape, and Kick questionnair e Answer Date Recorded Within the last year, have y ou been afraid of your partner or ex-partner? No 11/07/2023 Within the last year, have y ou been humiliated or emotionally abused in other ways by your partner or ex-partner? No 11/07/2023 Within the last year, have y ou been kicked, hit, slapped, or otherwise physically hurt by your partner or ex-partner? No 11/07/2023 Within the last year, have y ou been raped or forced to have any kind of sexual activity by your partner or ex-partner? Patient declined 11/07/2023 Social Connection and Isolation Panel [NHANES] A nswer Date Recorded In a typical week, how many times do you talk on the phone with family, friends, or neighbors? Once a week 11/07/2023 How often do you get togethe r with friends or relatives? Once a week 11/07/2023 How often do you attend buddhist or presybeterian serv ices? Never 11/07/2023 Do you belong to any clubs o r organizations such as buddhist groups, unions, fraternal or athletic groups, or school groups? No 11/07/2023 How often do you attend meet ings of the clubs or organizations you belong to? Patient declined 11/07/2023 Are you , , di vorced, , never , or living with a partner? 11/07/2023 AUDIT-C Answer Date Recorded Q1: How often do you have a drink containing alcohol? Never 11/07/2023 Q2: How many drinks containi ng alcohol do you have on a typical day when you are drinking? Patient does not drink Q3: How often do you have si x or more drinks on one occasion? Never 11/07/2023 Overall Financial Resource Strain (CARDIA) Answe r Date Recorded How hard is it for you to pa y for the very basics like food, housing, medical care, and heating? Not hard at all 11/07/2023 PHQ-2 Answer Date Recorded PHQ-9 Total Score 2 02/21/2024 [facility] - [facility]ational Stress Questionnaire Answer Date Recorded Do you feel stress - tense, restless, nervous, or anxious, or unable to sleep at night because your mind is troubled all the time - these days? Not at all 11/07/2023 Exercise Vital Sign Answer Date Recorde d On average, how many days pe r week do you engage in moderate to strenuous exercise (like a brisk walk)? 0 days 11/07/2023 On average, how many minutes do you engage in exercise at this level? 0 min 11/07/2023 Hunger Vital Sign Answer Date Recorded Within the past 12 months, y ou worried that your food would run out before you got the money to buy more. Never true 11/07/19 24 Within the past 12 months, t he food you bought just didn't last and you didn't have money to get more. Never true 11/07/2023 PRAPARE - Transportation Answer Date Re corded In the past 12 months, has l ack of transportation kept you from medical appointments or from getting medications? No 03/2024 In the past 12 months, has l ack of transportation kept you from meetings, work, or from getting things needed for daily living? No 11/07/2023 Housing Stability Vital Sign Answer Jose e Recorded In the last 12 months, was t here a time when you were not able to pay the mortgage or rent on time? No 11/07/2023 In the last 12 months, how many places have you lived? 1 11/07/2023 In the last 12 months, was t here a time when you did not have a steady place to sleep or slept in a chcf (including now)? No 11/07/2023 Sex and Gender Information Value Date Recorded Sex Assigned at Not on file Legal Sex Male 8:31 PM CDT Gender Identity Not on file Sexual Orientation Not on file Occupation Industry Job Start Date Job End Date Disability Not on file Not on file Not on file documented as of this encounter Miscellaneous Notes * Telephone Encounter - Vidhya Bain LPN - 08/11/2024 2:38 PM CST Informed Anyi and she understands. CH GRINDER * Telephone Encounter - Wade Donovan MD - 08/11/2024 2:32 PM CST He is chronically catheterized so based on smell and odor, we do not run cultures and I can review with them his symptoms at appointment. CH GRINDER * Telephone Encounter - Vidhya Bain LPN - 08/11/2024 2:02 PM CST Called Anyi and she states frequent urination with little output. Smell, odor Dark color but patient drinking a lot of water No fever but she knows that will come if its not treated. Anyi his noticed white particulate more than normal in his urine. This is a change since his surgery in October and . CH GRINDER * Telephone Encounter - Sofia Denson RN - 08/11/2024 1:59 PM CST Noted. CH GRINDER * Telephone Encounter - Wade Donovan MD - 08/11/2024 1:21 PM CST No, patient has chronic colonization and culture does not need to be run unless there are concerns for acute infection. CH GRINDER * Telephone Encounter - Vidhya Bain LPN - 08/11/2024 9:39 AM CST The patient ws in today for lab work and a urine sample as well. Please review this as the results will go to Dr. Carpenter who is out of office. A UA-M2 will be sent but does a culture need to be sent as well? CH GRINDER documented in this encounter Plan of Treatment Upcoming Encounters Date Type Department Care Team (Late st Contact Info) Description 08/20/2024 3:00 PM BROACH GRINDER Office Visit Ear Nose Throat [address] [place] [address] Yonas Charlton II, MD [address] [place] [phone] 08/21/2024 2:00 PM BROACH GRINDER Office Visit [place] [address] [phone] Wade Donovan MD [address] [place] [phone] documented as of this encounter Visit Diagnoses Not on filedocumented in this encounter Additional Health Concerns Infection Onset Date Last Indicated Resolved Time MSSA 08/02/2023 08/02/2023 documented as of this encounter Care Teams Interior Plant Caretaker Relationship Specialty Start Date End Date Wade Donovan MD [address] [place] [address] PCP - General Family Medicine 02/05/24 documented as of this encounter
--- OUTSIDE RECORDS SUMMARY | 2024-08-19 14:13 | XMS_ITS | Encounter Summary ---
Author Organization [facility] er Address [address] [place] [address] Care Team Providers Care Senior Staff Accountant Name Role Phone Wade Donovan MD Primary Care Provider [phone] Encounter Details Date Type Department Care Team (Late st Contact Info) Description 08/11/2024 9:30 AM ALCOHOLIC COUNSELOR Lab [place] [address] [place] [address] Hyperlipidemia LDL goal <100; Elevated PSA; senior living current use of anticoagulant; Recurrent kidney stones; Paraplegia (HCC); Other pulmonary embolism without acute cor pulmonale, unspecified chronicity (HCC); Cystitis Social History Tobacco Use Types Packs/Day [...] week 11/07/2023 How often do you attend druze or holiness serv ices? Never 11/07/2023 Do you belong [...] Answer Date Recorded PHQ-9 Total Score 2 08/13/2024 [facility] - Occupational [...] slept in a mcc (including now)? No 11/07/2023 Sex and Gender [...] st Contact Info) Description 08/20/2024 3:00 PM ALCOHOLIC COUNSELOR Office Visit Ear Nose Throat [address] [place], [place] [address] Yonas Charlton II, MD [address] [facility] [place] [phone] 08/21/2024 2:00 PM ALCOHOLIC COUNSELOR Office Visit [place] [address] [address] Wade Donovan MD [address] [place] [phone] documented as of this encounter Procedures Procedure Name Priority Date/Time Associated Diagnosis Comments ESTIMATED GLOMERULAR FILTRATION RATE (EGFR) Routine 08/11/2024 9:34 AM ALCOHOLIC COUNSELOR senior living current use of anticoagulant VITAMIN D, TOTAL Routine 08/11/2024 9:34 AM ALCOHOLIC COUNSELOR Recurrent kidney stones Paraplegia (HCC) CBC BRANCH OFFICE W/DIFF Routine 08/11/2024 9:34 AM ALCOHOLIC COUNSELOR Elevated PSA PROTIME-INR Routine 08/11/2024 9:34 AM 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 Other pulmonary embolism without acute cor pulmonale, unspecified chronicity (HCC) PSA Routine 08/11/2024 9:34 AM ALCOHOLIC COUNSELOR Elevated PSA LIPID PANEL Routine 08/11/2024 9:34 AM ALCOHOLIC COUNSELOR Hyperlipidemia LDL goal <100 COMPREHENSIVE METABOLIC PANEL Routine 08/11/2024 9:34 AM ALCOHOLIC COUNSELOR senior living current use of anticoagulant URINALYSIS-MICROSCOPI C EXAM (REFLEXED) Routine 08/11/2024 9:24 AM ALCOHOLIC COUNSELOR Cystitis URINALYSIS WITH REFLEX MICROSCOPIC Routine 08/11/2024 9:24 AM ALCOHOLIC COUNSELOR Cystitis documented in this encounter Results * Estimated Glomerular Filtration Rate (eGFR) (08/11/2024 9:34 AM ALCOHOLIC COUNSELOR) Pathologist [facility] Estimated Glomerular Filtration Rate (eGFR) >60 08/11/2024 2:[address] [facility] Comment: GFR calculated from serum creatinine value Chronic Kidney Disease less than 60 mL/min/1.73 m2 Kidney Failure less than 15 mL/min/1.73 m2 Note: effective 09/27/2022: 2020 CKD-EPI Equation used 08/11/2024 9:34 AM ALCOHOLIC COUNSELOR 08/11/2024 9:34 AM ALCOHOLIC COUNSELOR us Wade Donovan MD LAB BLOOD ORDERABLES Final R esult [facility] [address] [place] [address] * (ABNORMAL) Protime-INR (08/11/2024 9:34 AM ALCOHOLIC COUNSELOR) Pathologist [facility] Protime 18.6(H) 9.4 - 12.5 seconds 08/11/2024 1:[address] [facility] INR 1.6 08/11/2024 1:[address] [facility] Comment: Suggested INR Therapeutic Ranges* Intensity Standard Higher 2.0-3.0 2.5-3.5 *Target INR should be individualized. Occasionally,INR range 3.0-4.5 may be appropriate. Higher intensity INR: Mechanical heart valve, etc. Blood (Blood, Venous) 08/11/2024 9:34 AM ALCOHOLIC COUNSELOR 08/11/2024 12:52 PM ALCOHOLIC COUNSELOR Elli Campbell PA-C LAB BLOOD ORDERABLES Final R [employer] Performing Organization Address [facility] Co de Phone Number [facility] [address] [place] [phone] * (ABNORMAL) Vitamin D, Total (08/11/2024 9:34 AM [facility]) [facility] Vitamin D, Total 17.7(A) ng/mL 08/11/20 24 2:[address] [facility] Comment: Deficient <20 Insufficient 20-<30 Sufficient 30-100 Vitamin D2/D3 fractionation is recommended at the discretion of the clinician if Total Vitamin D is within deficient or insufficient range. Blood 08/11/2024 9:34 AM ALCOHOLIC COUNSELOR 08/11/2024 12:52 PM ALCOHOLIC COUNSELOR Wade Donovan MD LAB BLOOD ORDERABLES Final R esult Performing Organization Address [facility] Co de Phone Number [facility] [address] [place] [phone] * (ABNORMAL) CBC Branch Off w/Diff (08/11/2024 9:34 AM ALCOHOLIC COUNSELOR) WBC 6.3 3.5 - 10.5 K/uL 08/11/2024 9:44 AM ALCOHOLIC COUNSELOR [facility] RBC 5.94(H) 4.30 - 5.70 M/uL 08/11/2024 9:44 AM ALCOHOLIC COUNSELOR [facility] Hemoglobin 16.3 13.5 - 17.5 g/dL 08/11/2024 9:44 AM ALCOHOLIC COUNSELOR [facility] Hematocrit 52.7(H) 38.0 - 50.0 % 08/11/2024 9:44 AM ALCOHOLIC COUNSELOR [facility] Platelets 269 150 - 450 K/uL 08/11/2024 9:44 AM ALCOHOLIC COUNSELOR [facility] MCV 88.7 81.2 - 95.1 fL 08/11/2024 9:44 AM ALCOHOLIC COUNSELOR [facility] MCH 27.4 26.0 - 32.0 pg 08/11/2024 9:44 AM ALCOHOLIC COUNSELOR [facility] MCHC 30.9(L) 32.0 - 36.0 g/dL 08/11/2024 9:44 AM ALCOHOLIC COUNSELOR [facility] RDW 15.6 11.8 - 15.6 % 08/11/2024 9:44 AM ALCOHOLIC COUNSELOR [facility] Lymphocytes % 20.2 % 08/11/2024 9:44 AM ALCOHOLIC COUNSELOR [facility] Mid-size Cells 9.7 % 08/11/2024 9:44 AM ALCOHOLIC COUNSELOR [facility] Granulocytes/Mason trophils 70.1 % 08/11/2024 9:44 AM ALCOHOLIC COUNSELOR [facility] Lymphocytes Absolute 1.3 0.9 - 2.9 K/uL 08/11/2024 9:44 AM ALCOHOLIC COUNSELOR [facility] MIDS Absolute 0.6 0.4 - 1.5 K/uL 08/11/2024 9:44 AM ALCOHOLIC COUNSELOR [facility] Granulocytes/Mason trophils Absolute 4.4 1.7 - 7.0 K/uL 08/11/2024 9:44 AM ALCOHOLIC COUNSELOR [facility] Blood 08/11/2024 9:34 AM ALCOHOLIC COUNSELOR 08/11/2024 9:34 AM ALCOHOLIC COUNSELOR us Wade Donovan MD LAB BLOOD ORDERABLES Final R esult [facility] [address] [place] [address] * (ABNORMAL) Comprehensive metabolic panel (08/11/2024 9:34 AM ALCOHOLIC COUNSELOR) Total Protein 7.6 6.3 - 8.2 g/dL 08/11/2024 2:05 PM [facility] Albumin, Serum 4.1 3.5 - 5.0 g/dL 08/11/2024 2:05 PM [facility] Total Bilirubin 1.5(H) 0.1 - 1.0 mg/dL 08/11/2024 2:05 PM [facility] AST 22 8 - 48 U/L 08/11/2024 2:05 PM [facility] Alkaline Phosphatase 123 38 - 128 U/L 08/11/2024 2:05 PM [facility] ALT (SGPT) 22 0 - 49 U/L 08/11/2024 2:05 PM [facility] Sodium 140 135 - 145 mEq/L 08/11/2024 2:05 PM [facility] Potassium 3.9 3.5 - 5.1 mEq/L 08/11/2024 2:05 PM [facility] Chloride 107 98 - 107 mEq/L 08/11/2024 2:05 PM [facility] CO2 25 22 - 31 mmol/L 08/11/2024 2:05 PM [facility] BUN 16 5 - 25 mg/dL 08/11/2024 2:05 PM [facility] Creatinine 0.76 0.60 - 1.40 mg/dL 08/11/2024 2:05 PM [facility] Glucose 99 70 - 100 mg/dL 08/11/2024 2:05 PM [facility] Calcium, Total,S 9.2 8.4 - 10.2 mg/dL 08/11/2024 2:05 PM [facility] Anion Gap 8 4 - 13 08/11/2024 2:[address] [facility] Comment: The anion gap is calculated with the following formula: AGAP = Na (Cl + CO2). Blood 08/11/2024 9:34 AM ALCOHOLIC COUNSELOR 08/11/2024 12:52 PM ALCOHOLIC COUNSELOR Wade Donovan MD LAB BLOOD ORDERABLES Final R [facility] Performing Organization Address [facility] de Phone Number [facility] [address] [place] [address] * PSA (08/11/2024 9:34 AM ALCOHOLIC COUNSELOR) Total PSA 4.1 0.0 - 5.1 ng/mL 08/11/2024 3:[address] [facility] Comment: The results from [...] method is an immunometric assay manufactured by [employer] and performed on the [employer] 5600 system. Biotin levels in serum remain elevated for up to 24 hours after oral or intravenous biotin administration and may interfere with this assay to produce unreliable results. Heterophilic antibodies in serum or plasma samples may cause interference in immunoassays. Exposure to animal antigens, either in the environment or as part of treatment or imaging procedures, may have circulating anti-animal antibodies present. These antibodies may interfere with the assay reagents to produce unreliable results. Results which are inconsistent with clinical observations indicate the need for additional testing. Blood (Blood, Venous) 08/11/2024 9:34 AM ALCOHOLIC COUNSELOR 08/11/2024 12:52 PM ALCOHOLIC COUNSELOR Wade Donovan MD LAB BLOOD ORDERABLES Final R esult Performing Organization Address [facility] Co de Phone Number [facility] [address] [place] [address] * (ABNORMAL) Lipid panel (08/11/2024 9:34 AM ALCOHOLIC COUNSELOR) Cholesterol 125 0 - 199 mg/dL 08/11/2024 2:05 PM [facility] Comment: Recommended by National Cholesterol Education Program (ATP III) -------- Cholesterol Ranges -------- <200 Desirable 200-239 Borderline high >=240 High Triglycerides 81 0 - 149 mg/dL 08/11/2024 2:05 PM [facility] Comment: -------- TRIG Ranges -------- <150 Normal 150-199 Borderline high 200-499 High >=500 Very high HDL 31(L) 40 - 250 mg/dL 08/11/2024 2:05 PM [facility] Comment: -------- HDL Ranges -------- <40 Low 40-59 Normal >=60 Optimal LDL Calculated 78 0 - 99 mg/dL 08/11/2024 2:05 PM [facility] Comment: -------- LDL Ranges -------- <100 Optimal 100-129 Near optimal/above optimal 130-159 Borderline high 160-189 High >=190 Very high Fasting? Yes 08/11/2024 9:42 AM [facility] Blood 08/11/2024 9:34 AM ALCOHOLIC COUNSELOR 08/11/2024 12:52 PM ALCOHOLIC COUNSELOR us Wade Donovan MD LAB BLOOD ORDERABLES Final R esult [facility] [address] [place] [address] * (ABNORMAL) Urinalysis-Microscopic Exam (08/11/2024 9:24 AM [facility]) Casts, urine NONE SEEN 0-2 Hyaline /lpf 08/12/2024 6:04 AM [facility] Significant casts, urine NONE SEEN None Seen /lpf 08/12/2024 6:04 AM [facility] RBC, Urine NONE SEEN 0 - 3 /hpf 08/12/2024 6:04 AM [facility] WBC, Urine 51-100(A) /hpf 08/12/2024 6:[address] [facility] Comment: Male: 0-3/hpf Female: 0-10/hpf Squamous Epithelial, Urine NONE SEEN Few /lpf 08/12/2024 6:[address] [facility] Trans Epithelial, Urine NONE SEEN 0 - 3 /hpf 08/12/2024 6:04 AM [facility] Renal Tubular Cells, Urine NONE SEEN 0 - 1 /hpf 08/12/2024 6:04 AM [facility] Bacteria, Urine 4+(A) None Seen - Few /hpf 08/12/2024 6:[address] [facility] Urine Crystals NONE SEEN None Seen 08/12/2024 6:04 AM [facility] 08/11/2024 9:24 AM ALCOHOLIC COUNSELOR 08/11/2024 12:52 PM [facility] us DLatanya Carpenter MD LAB URINE ORDERABLES Final R esult Performing Organization Address City/State/[facility] Co de Phone Number [facility] [address] [place] [address] * (ABNORMAL) Urinalysis with reflex microscopic (08/11/2024 9:24 AM ALCOHOLIC COUNSELOR) Type Saenz Insert 08/11/2024 9:34 AM ALCOHOLIC COUNSELOR [facility] Color, Urine YELLOW YELLOW 08/11/2024 9:34 AM ALCOHOLIC COUNSELOR [facility] Clarity, Urine CLOUDY(A) CLEAR 08/11/2024 9:34 AM ALCOHOLIC COUNSELOR [facility] Glucose, Urine NEGATIVE NEGATIVE mg/dL 08/11/2024 9:34 AM ALCOHOLIC COUNSELOR [facility] Bilirubin, Urine NEGATIVE NEGATIVE 08/11/2024 9:34 AM ALCOHOLIC COUNSELOR [facility] Ketones, Urine NEGATIVE NEGATIVE mg/dL 08/11/2024 9:34 AM ALCOHOLIC COUNSELOR [facility] Specific [place], Urine >=1.030 1.000 ->=1.030 08/11/2024 9:34 AM ALCOHOLIC COUNSELOR [facility] Blood, Urine TRACE(A) NEGATIVE 08/11/2024 9:34 AM ALCOHOLIC COUNSELOR [facility] pH, Urine 5.5 5.0 - 7.0 08/11/2024 9:34 AM ALCOHOLIC COUNSELOR [facility] Protein, Urine NEGATIVE NEGATIVE-TRA CE mg/dL 08/11/2024 9:34 AM ALCOHOLIC COUNSELOR [facility] Urobilinogen, Urine 0.2 0.2 - 1.0 E.U./dL 08/11/2024 9:34 AM ALCOHOLIC COUNSELOR [facility] Nitrite, Urine POSITIVE(A) NEGATIVE 08/11/2024 9:34 AM ALCOHOLIC COUNSELOR [facility] Leukocytes, Urine SMALL(A) NEGATIVE 08/11/2024 9:34 AM ALCOHOLIC COUNSELOR [facility] Urine (Saenz Insert) 08/11/2024 9:24 AM ALCOHOLIC COUNSELOR 08/11/2024 9:28 AM ALCOHOLIC COUNSELOR DLatanya Carpenter MD LAB URINE ORDERABLES Final R esult Performing Organization Address City/State/[facility] Co de Phone Number [facility] [address] [place] [address] documented in this encounter Visit Diagnoses Diagnosis Hyperlipidemia LDL goal <100 Other and unspecified hyperlipidemia Elevated PSA Elevated prostate specific antigen (PSA) senior living current use of anticoagulant Recurrent kidney stones Paraplegia (HCC) Paraplegia Other pulmonary embolism without acute cor pulmonale, unspecified chronicity (HCC) Cystitis Unspecified cystitis documented in this encounter Additional Health Concerns Infection Onset Date Last Indicated Resolved Time MSSA 08/02/2023 08/02/2023 documented as of this encounter Care Teams Senior Staff Accountant Relationship Specialty Start Date End Date Wade Donovan MD [address] [place] [address] PCP - General Family Medicine 02/05/24 documented as of this encounter
--- OUTSIDE RECORDS SUMMARY | 2024-08-19 14:13 | XMS_ITS | Encounter Summary ---
Author Organization [facility] er Address [address] [place] [address] Care Team Providers Care Stoner Out Name Role Phone Wade Donovan MD Primary Care Provider [phone] Encounter Details Date Type Department Care Team (Latest Contact Info) Description 08/11/2024 Anticoagulation - Warfarin Visit [facility]/Internal Medicine - Third Floor [address] [place], [place] [id number] Iliana Doyle, RN [address] [place] [address] director long term care current [...] week 11/07/2023 How often do you attend gnosticist or yazdanism serv ices? Never 11/07/2023 Do you belong [...] Date Recorded PHQ-9 Total Score 2 02/21/2024 [facility] - Occupational Stress Questionnaire [...] slept in a residential (including now)? No 11/07/2023 Sex and Gender Information Value Date Recorded Sex Assigned at Not on file Legal Sex Male 8:31 PM CDT Gender Identity Not on file Sexual Orientation Not on file Occupation Industry Job Start Date Job End Date Disability Not on file Not on file Not on file documented as of this encounter Progress Notes * Iliana Doyle, RN - 08/11/2024 11:05 AM CST Anticoagulation Clinic INR RESULTS: INR (no units) Date Value 08/11/2024 1.90 (A) DOSE PLAN: 3 mg today, then continue 4 mg every Sun, Sun; 2 mg all other days DOSE CHANGE: one time booster dose; updated maintenance plan to what patient has been taking NEXT INR: 08/25/24 INR results reviewed with the patient's , Nelia. Per Nelia, patient has been taking 4 mg only twiceper week on Wednesdays and Fridays, not three times per week as advised; MP updated to reflect this. Nelia stated they were just on a vacation and his diet has been different. She stated he may be started on abx for UTI soon and will let us know, she is aware he would most likely need to text sooner.Nelia verbalized understanding of anticoagulation dose plan and date of next INR. Patient is a home liz. AVS sent through [employer]. ER PATCHER documented in this encounter Plan of Treatment Upcoming Encounters Date Type Department Care Team (Late st Contact Info) Description 08/20/2024 3:00 PM VENEER PATCHER Office Visit Ear Nose Throat [address] [place] [address] Yonas Charlton II, MD [address] [place] [phone] 08/21/2024 2:00 PM VENEER PATCHER Office Visit [place] [address] [place] [address] Wade Donovan MD [address] [facility] [address] [place] [address] documented as of this encounter Procedures Procedure Name Priority Date/Time Associated Diagnosis Comments PROTIME-INR Routine 08/11/2024 documented in this encounter Results * (ABNORMAL) Protime-INR (08/11/2024) INR 1.90(A) 0.90 - 1.10 [facility] POINT OF CARE TESTING Protime [facility] POINT OF CARE TESTING Blood (Blood, Venous) us Historical Provider LAB BLOOD ORDERABLES Mini l Result HOME [facility] POINT OF CARE TESTING documented in this encounter Visit Diagnoses Diagnosis shelter current use of anticoagulant- Primary Other pulmonary embolism without acute cor pulmonale, unspecified chronicity (HCC) documented in this encounter Additional Health Concerns Infection Onset Date Last Indicated Resolved Time MSSA 08/02/2023 08/02/2023 documented as of this encounter Care Teams Stoner Out Relationship Specialty Start Date End Date Wade Donovan MD [address] [facility] [address] [place] [address] PCP - General Family Medicine 02/05/24 documented as of this encounter
--- OUTSIDE RECORDS SUMMARY | 2024-08-19 14:13 | XMS_ITS | Encounter Summary ---
Author Organization [facility] er Address [address] [place] [address] Care Team Providers Care Platen Grinder Name Role Phone Wade Donovan MD Primary Care Provider [phone] Reason for Referral * Consultation (Routine) - Authorized Specialty Diagnoses / Procedures Referred By Joan krause Referred To Contact Diagnoses Swelling of face Wade Donovan MD [address] [address] Phone: tel: fax: [address] [address] Phone: tel: Referral ID Status Reason Start Date Expiration Date V isits Requested Visits Authorized [id number] Authorized 08/13/2024 08/14/2025 1 1 ONOMY INSTRUCTOR * Consultation (Routine) - Authorized Specialty Diagnoses / Procedures Referred By Joan krause Referred To Contact Otolaryngology Diagnoses Swelling of face Wade Donovan MD 1705 [facility] 20 [place] [address] Phone: tel: fax: Ear Nose Throat [address] [place] [address] Phone: tel: fax: Referral ID Status Reason Start Date Expiration Date Visits Requested Visits Authorized [id number] Authorized Specialty Services Required 08/13/2025 1 1 Scheduling Instructions Please call the ENT Business Functional Analyst desk at [phone] ext. [phone] to schedule an appointment. ONOMY INSTRUCTOR Reason for Visit * Reason Comments Annual Exam Encounter Details Date Type Department Care Team (Late st Contact Info) Description 08/13/2024 10:40 AM ASTRONOMY INSTRUCTOR Office Visit [place] [address] [place] [address] Wade Donovan MD [address] [place] [phone] Recurrent UTI (Primary Dx); Vitamin D deficiency; Constipation, unspecified constipation type; Detrusor instability; Mixed hyperlipidemia; Swelling of face; Multiple sclerosis (HCC); Seborrheic dermatitis Social History Tobacco Use Types Packs/Day Years Used Date Smoking Tobacco: Never Smokeless Tobacco: Former Tobacco Cessation:Counseling Given: No Alcohol Use Standard Drinks/Week Comments No 0 [...] week 11/07/2023 How often do you attend anabaptism or bahai serv ices? Never 11/07/2023 Do you belong [...] Date Recorded PHQ-9 Total Score 2 08/13/2024 [facility] - Occupational Stress Questionnaire Answer Date [...] in a senior living (including now)? No 11/07/2023 Sex and Gender [...] Sign Reading Time Taken Comments Blood Pressure 123/87 08/13/2024 10:48 AM ASTRONOMY INSTRUCTOR Pulse 102 08/13/2024 10:48 AM ASTRONOMY INSTRUCTOR Temperature 36.7 C (98 F) 08/13/2024 10:48 AM ASTRONOMY INSTRUCTOR Respiratory Rate 18 08/13/2024 10:48 AM ASTRONOMY INSTRUCTOR Oxygen Saturation 98% 08/13/2024 10:48 AM ASTRONOMY INSTRUCTOR Inhaled Oxygen Concentration - - Weight - - Height - - Body Mass Index - - documented in this encounter Patient Instructions * Patient Instructions* Wade Donovan MD - 08/13/2024 10:40 AM ASTRONOMY INSTRUCTOR Ask about drug coverage alternatives like Eliquis. Patient Information: Medical History: Dhruv has a history of small strokes, a left meningioma excision in November 2023, and uses a catheter regularly. He has been on suppressive antibiotics for a long time and takes several medications for various conditions. Reason for Visit: Dhruv visited the clinic to address multiple medical concerns, including symptoms of a urinary tract infection (UTI), a bump on the side of his nose, muscle spasms, and red, scaly spots on his scalp. He also needed management of his medications and evaluation of his vitamin D levels. Clinical Findings: - Dhruv has been experiencing frequent urination with minimal output, dark-colored urine, and a foul smell. - His vitamin D level is significantly low at 17. - He has red, scaly spots on his scalp that bleed when picked. - A bump on the side of his nose has been present for about 6 months. - His cholesterol levels are within normal limits. Diagnosis: - Urinary Tract Infection - Vitamin D Deficiency - Muscle Spasms - Seborrheic Dermatitis - Nasal Bump Treatment Plan: - Continue taking Macrobid 100 mg twice daily until Sunday for the UTI. - Start taking vitamin D 2000 units daily for the next year with food. - Increase Baclofen dosage to 20 mg twice daily for muscle spasms. - Use ketoconazole 2% shampoo twice weekly and clobetasol liquid twice weekly after shampooing for seborrheic dermatitis. - A CT scan of the face and sinuses will be ordered to evaluate the nasal bump. - Continue taking Lipitor for cholesterol management. Follow-Up Instructions: - Collect a urine sample on morning, 48 hours after the last dose of Macrobid, and bring it to the clinic for evaluation. - Schedule a follow-up visit next . - Take vitamin D 2000 units daily with food. - Use ketoconazole shampoo and clobetasol liquid as prescribed for scalp treatment. - Continue regular catheterization and ensure the use of clean catheters. - Monitor for any changes in symptoms and report any concerns to the clinic. Additional Notes: - Dhruv's INR was 1.9 on Sunday, and he was given an extra half dose of warfarin. - Discuss with the urologist about the necessity of continuing oxybutynin. - Referral to ENT for further evaluation of the nasal bump after the CT scan. - Dhruv's appetite is generally good, and he should continue drinking plenty of water. ONOMY INSTRUCTOR ONOMY INSTRUCTOR ONOMY INSTRUCTOR ONOMY INSTRUCTOR documented in this encounter Progress Notes * Wade Donovan MD - 08/13/2024 10:40 AM CST Dwain Hinds is a 64 y.o. male here for Chief Complaint Patient presents with Annual Exam History of Present Illness The patient presents for evaluation of multiple medical concerns. He is accompanied by his spouse Nelia. He has been taking Bactrim, half a tablet three times a week, since November or December 2023. Recently, he started experiencing frequent urination with minimal output, dark-colored urine, and a foul smell. His began administering Macrobid 100 mg twice daily from a previous prescription starting this Sunday on day 3 now. He uses a catheter as needed, typically 4 to 5 times a day, and has a sufficient supply of clean catheters. Despite maintaining his usual fluid intake, his urine output has increased in volume but remains discolored. He reports no pain. During a recent two-week vacation, he only urinated in the morning and at night, despite feeling the urge to urinate more frequently. His urine was clear until about a week and a half ago. He has a history of urinary tract infections (UTIs)and has previously been treated with Macrobid and Bactrim successfully. He has history of severe UTI's (Urosepsis). He has no history of chest pain or shortness of breath. His appetite is generally good, although heoccasionally skips meals due to early bedtimes or afternoon naps. He takes senna every night for bowel regularity and had a satisfactory bowel movement yesterday. He has been on oxybutynin for 25 years and uses preservative-free eye drops. He has a bump on the side of his nose that has been present for about six months, which has been evaluated by three eye doctors and is not related to the tear duct. He had an MRI of the brain in March 2024, which suggested a series of small strokes. He had a left meningioma excision on November 20, 2023. His INR was 1.9 on Sunday, and he was given an extra half dose of warfarin. He is also on Baclofen for spasms, taking2 tablets in the morning and 1 at bedtime. He experiences spasms throughout the day, primarily in his legs, and is considering increasing his Baclofen dosage. He has no history of seizures but took an antiseizure medication for a limited time after brain surgery. He has red, scaly spots on his scalp that bleed when picked. He showers twice a week and has used triamcinolone cream in the past, which was effective. ROS: ROS done as noted in HPI. Objective Vitals: 08/13/24 1048 BP: 123/87 BP Location: Right arm Patient Position: Sitting BP Cuff Size: Adult Pulse: (!) 102 Resp: 18 Temp: 36.7 ??C (98 ??F) TempSrc: Temporal SpO2: 98% Physical Exam Physical Exam Gen: vitals reviewed, in motorized chair Derm: scalp posterior with erythematous scaly rash Heart: RRR no murmurs Lungs: CTA bilaterally Abd: soft, BS present, no suprapubic tenderness Results - Laboratory Studies notable for: - Vitamin D level: 17 - INR: 1.9 Assessment & Plan 1. Urinary Tract Infection - Experiencing frequent urination with minimal output, dark-colored urine, and strong odor. Started Macrobid 100 mg twice daily on Sunday. - Continue Macrobid until next Sunday (7 days) - Collect urine sample on morning, at least 48 hours after the last dose of Macrobid - Follow-up in the clinic on - Urology follow up in the next couple months planned 2. Vitamin D Deficiency - Vitamin D level is 17. Has history of kidney stone requiring stenting andextraction, so will have to monitor this as we do not want to over treat vitamin D deficiency and increase propensity for stone formation. - Prescribed vitamin D 2000 units daily for a year, to be taken with food - Recheck Vitamin D in 3 months - Consider Nephrology consultation 3. Muscle Spasms - Increased muscle spasms. - Prescribed Baclofen 20 mg twice daily (increased from 30 mg/day) 4. Seborrheic Dermatitis - Red, scaly spots on scalp that bleed when picked. - Prescribed ketoconazole 2% shampoo twice weekly - Prescribed clobetasol liquid twice weekly after shampooing 5. Nasal Bump - Bump on the side of the nose unchanged in size. - Order CT scan of face and sinuses for further evaluation - Schedule with ENT after CT completed to review 6. Medication Management - Continue Lipitor for cholesterol management. - Cholesterol levels are acceptable 7. Paraplegia, multiple sclerosis - Schedule with Neurology to establish care - Baclofen as above 8. Lacunar infarcts on MRI - on anticoagulation for history of pulmonary embolism - BP adequately controlled - Discussed consideration aspirin, recommend to get Neurology thoughts on adding Aspirin to regimen Follow-up - Scheduled for follow-up visit next Diagnosis Plan 1. Recurrent UTI Urinalysis with reflex microscopic 2. Vitamin D deficiency cholecalciferol (VITAMIN D-3) 50 MCG (1999) tablet Vitamin D, Total ([facility] preferred) 3. Constipation, unspecified constipation type 4. Detrusor instability 5. Mixed hyperlipidemia atorvastatin (LIPITOR) 20 MG tablet 6. Swelling of face Ambulatory referral to ENT Ambulatory External Referral [facility]; Radiology 7. Multiple sclerosis (HCC) baclofen (LIORESAL) 20 MG tablet 8. Seborrheic dermatitis ketoconazole (NIZORAL) 2 % shampoo clobetasol (TEMOVATE) 0.05 % external solution Total time spent in patient care was over 40 minutes which included the pre- work, visit work, and post-visit work. No follow-ups on file. ONOMY INSTRUCTOR documented in this encounter Plan of Treatment Upcoming Encounters Date Type Department Care Team (Late st Contact Info) Description 08/20/2024 3:00 PM ASTRONOMY INSTRUCTOR Office Visit Ear Nose Throat [address] [place] [phone] Yonas Charlton II, MD [address] [place] [phone] 08/21/2024 2:00 PM ASTRONOMY INSTRUCTOR Office Visit [address] [address] Wade Donovan MD [address] [place] [phone] Scheduled Orders Name Type Priority Associated Diagnoses Orde r Schedule Urinalysis with reflex microscopic Lab Routine Recurrent UTI Expected: 08/13/2024, Expires: 08/13/2025 Vitamin D, Total ([facility] preferred) Lab Routine Vitamin D deficiency Expected: 11/13/2024 (Approximate), Expires: 08/13/2025 Scheduled Referrals Name Type Priority Associated Diagnoses Order Schedule Ambulatory referral to ENT Outpatient Referral Routine Swelling of face Ordered: 08/13/2024 Ambulatory External Referral [facility]; Radiology Outpatient Referral Routine Swelling of face Ordered: 08/13/2024 documented as of this encounter Visit Diagnoses Diagnosis Recurrent UTI- Primary Urinary tract infection, site not specified Vitamin D deficiency Constipation, unspecified constipation type 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
--- OUTSIDE RECORDS SUMMARY | 2024-08-19 14:13 | XMS_ITS | Clinical Summary ---
Author Organization [facility] er Address [address] [place] [address] Care Team Providers Care Break And Load Operator Name Role Phone Wade Donovan MD Primary Care Provider + [phone] Allergies Active Allergy Reactions Criticality Noted Date Comments Penicillins Medium 11/22/2016 Other reaction(s): *Unknown - Pt Doesn't Remember, Other (see comments) Delirium, questionable anaphylactic reaction Medications acetaminophen (TYLENOL) 500 MG tablet Take 1 tablet (500 mg total) by mouth if needed Active Sennosides (SENNA LAXATIVE) 25 MG tabletIndication s:Constipation, unspecified constipation type May take one tab 1-2 times per day if needed for constipation. 180 each 3 020 Active Catheters (Self-Cath Straight Tip) miscIndications: Neurogenic bladder USE DIRECTED 120 each 11 021 Active olopatadine (PATADAY) 0.2 % ophthalmic solution Administer 1 drop into both eyes daily Active levETIRAcetam (KEPPRA) 500 MG tablet Take 1 tablet (500 mg total) by mouth 2 times daily 024 Active famotidine (PEPCID/ZANTAC 360) 20 MG tablet Take 1 tablet (20 mg total) by mouth 2 times daily 024 Active dexamethasone (DECADRON) 2 MG tablet Take 1 tablet (2 mg total) by mouth 2 (two) times a day with meals 024 Active oxybutynin (DITROPAN) 5 MG tabletIndication s:Detrusor instability TAKE ONE TABLET BY MOUTH TWICE A DAY 180 tablet 3 Active warfarin (COUMADIN) 2 MG tabletIndication s:USP current use of anticoagulant,Ot her pulmonary embolism without acute cor pulmonale, unspecified chronicity (HCC) Take daily by mouth 4mg every Mon, Wed, Fri; 2mg all other days or as directed by Anticoagulation Clinic 129 tablet 3 Active Additional Information Patient taking differently: Take daily by mouth 4mg every Mon, Wed, Fri; 2mg all other days or as directed by Anticoagulation Clinic, Reported on 08/13/2024 sulfamethoxazole -trimethoprim (BACTRIM) 400-80 MG per tabletIndication s:Recurrent UTI TAKE ONE-HALF TABLET BY MOUTH THREE TIMES A WEEK. 6 tablet 3 Active Additional Information Patient taking differently: Dose is 400-82, Reported on 08/13/2024 cholecalciferol (VITAMIN D-3) 50 MCG (2000 UT) tabletIndication s:Vitamin D deficiency Take 1 tablet (2,000 Units total) by mouth 1 (one) time each day 90 tablet 3 024 2024 Active atorvastatin (LIPITOR) 20 MG tabletIndication s:Mixed hyperlipidemia Take 1 tablet (20 mg total) by mouth every night 90 tablet 3 Active baclofen (LIORESAL) 20 MG tabletIndication s:Multiple sclerosis (HCC) Take 1 tablet (20 mg total) by mouth 2 (two) times a day 60 tablet 2 Active ketoconazole (NIZORAL) 2 % shampooIndicatio ns:Seborrheic dermatitis Apply topically 2 (two) times a week 120 mL 3 Active clobetasol (TEMOVATE) 0.05 % external solutionIndicati ons:Seborrheic dermatitis Apply topically 2 (two) times a week 50 mL 3 Active atorvastatin (LIPITOR) 20 MG tabletIndication s:Mixed hyperlipidemia START WITH TAKE ONE-HALF TABLET BY MOUTH AT BEDTIME FOR 8 DAYS, THEN TAKE ONE TABLET BY MOUTH AT BEDTIME 90 tablet 3 024 2023 Discontinued( Reorder) sulfamethoxazole -trimethoprim (BACTRIM) 400-80 MG per tabletIndication s:Recurrent UTI TAKE ONE-HALF TABLET BY MOUTH THREE TIMES A WEEK. 6 tablet 3 024 2023 Discontinued baclofen (LIORESAL) 10 MG tabletIndication s:Multiple sclerosis (HCC) TAKE 1 TABLET BY MOUTH THREE TIMES A DAY FOR MULTIPLE SCLEROSIS 270 tablet 024 2023 Discontinued baclofen (LIORESAL) 10 MG tabletIndication s:Multiple sclerosis (HCC) TAKE ONE TABLET BY MOUTH THREE TIMES A DAY FOR MULTIPLE SCLEROSIS 270 tablet 024 2023 Discontinued Active Problems Problem Noted Date Diagnosed Date S/P resection of meningioma 11/21/2023 Meningioma 11/01/2023 Sepsis secondary to UTI 11/01/2023 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/2023 Urinary bladder stone 08/14/2023 Hyperlipidemia LDL goal <100 11/03/2021 Overview (11/04/2021): 10yr ASCVD risk calculator 14.4%. Dry skin dermatitis 11/03/2021 Overview (11/03/2021): Discussed use of cerave cream on moist skin after showering. 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 Paraplegia 10/04/2015 Moderate episode of recurrent major depressive d isorder 08/11/2015 Overview (07/16/2018): Overview: Depression Major Recurrent Moderate Family history of malignant neoplasm of gastrointestinal tract 02/26/2014 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 [address] [place] [address] Wade Donovan MD 08/11/2024 9:30 AM ROLLER OPERATOR Lab [place] [facility] [address] [place] [address] Hyperlipidemia LDL goal <100; Elevated PSA; USP current use of anticoagulant; Recurrent kidney stones; Paraplegia (HCC); Other pulmonary embolism without acute cor pulmonale, unspecified chronicity (HCC); Cystitis 08/11/2024 Anticoagulation - Warfarin Visit [facility]/Internal Medicine - Third Floor [address] [place] [address] Iliana Doyle RN USP current use of anticoagulant (Primary Dx); Other pulmonary embolism without acute cor pulmonale, unspecified chronicity (HCC) 08/11/2024 Telephone [employer] [address] [address] Wade Donovan MD Lab Results Urine 08/06/2024 Orders Only [place] [facility] [address] [address] Wade Donovan MD Elevated PSA (Primary Dx); Hyperlipidemia LDL goal <100; Recurrent kidney stones; Paraplegia (HCC); USP current use of anticoagulant 08/06/2024 Telephone [employer] [address] [place] [address] Wade Donovan MD PHYSICAL SCHEDULED 08/01/2024 Refill [place] [address] [address] [place] [address] Wade Donovan MD Recurrent UTI 07/26/2024 Refill [employer] 1705 [facility] [address] [place] [address] Wade Donovan MD Multiple sclerosis (HCC) 07/21/2024 Anticoagulation - Warfarin Visit Internal [facility] [address] [place] [address] Tori Caceres, ROBERT USP current use of anticoagulant (Primary Dx); Other pulmonary embolism without acute cor pulmonale, unspecified chronicity (HCC) 07/07/2024 Anticoagulation - Warfarin Visit [facility] [address] [place] [address] Tori Caceres RN ad terminal makeup operator current use of anticoagulant (Primary Dx); Other pulmonary embolism without acute cor pulmonale, unspecified chronicity (HCC) 06/23/2024 Anticoagulation - Warfarin Visit [facility]/Internal Medicine - Third Floor [address] [place] [address] Anna Betts RN USP current use of anticoagulant (Primary Dx); Other pulmonary embolism without acute cor pulmonale, unspecified chronicity (HCC) 06/10/2024 Anticoagulation - Warfarin Visit [facility]/Internal Medicine - Third Floor [address] [place] [address] Tori Caceres RN ad terminal makeup operator current use of anticoagulant (Primary Dx); Other pulmonary embolism without acute cor pulmonale, unspecified chronicity (HCC) 05/19/2024 Anticoagulation - Warfarin Visit [facility]/Internal Medicine - Third Floor [address] [place] [address] Dolores Cleary RN USP current use of anticoagulant (Primary Dx); Other pulmonary embolism without acute cor pulmonale, unspecified chronicity (HCC) from Last 3 Months Immunizations Name Administration Dates Next Due COVID-19, mRNA, LNP-S, PF, 3 0mcg/0.3mL dose Pfizer 12/29/2020,12/08/2020 Flu Vaccine 50-64yrs Flublok (Egg Free) 07/12/2020 Flu Vaccine High Dose 65yrs and Older IM 08/01/2017 INFLUENZA QUADRIVALENT MDV (IM) 07/29/2015 Influenza 6mo-64yrs Quad Pre servative Free IM 08/30/2022,06/24/2021,07/12/2020,08/27,07/11/2016,07/29/2015 Influenza Split 11/03/2009 Influenza, Split Virus, Triv alent, Preservative 08/06/2014 Influenza, Unspecified 08/01/2017,2015,07/29/2015,01/31(Deferred: Patient Refused),11/03/2009 Pneumococcal [...] week 11/07/2023 How often do you attend orthodox or episcopal serv ices? Never 11/07/2023 Do you belong [...] Date Recorded PHQ-9 Total Score 2 08/13/2024 [facility] [...] slept in a 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 (including now)? No 11/07/2023 Sex and Gender Information Value Date Recorded Sex Assigned at Not on file Legal Sex Male 8:31 PM CDT Gender Identity Not on file Sexual Orientation Not on file Occupation Industry Job Start Date Job End Date Disability Not on file Not on file Not on file Last Filed Vital Signs Vital Sign Reading Time Taken Comments Blood Pressure 123/87 08/13/2024 10:48 AM ROLLER OPERATOR Pulse 102 08/13/2024 10:48 AM ROLLER OPERATOR Temperature 36.7 C (98 F) 08/13/2024 10:48 AM ROLLER OPERATOR Respiratory Rate 18 08/13/2024 10:4 8 AM ROLLER OPERATOR Oxygen Saturation 98% 08/13/2024 10: 48 AM ROLLER OPERATOR Inhaled Oxygen Concentration - - Weight 84.8 kg (186 lb 15.2 oz) 08/11/2019 3:23 PM ROLLER OPERATOR Height 185.4 cm (6' 0.99) 08/11/2019 3:23 PM CS T Body Mass Index 24.67 08/11/2019 3:23 PM ROLLER OPERATOR Plan of Treatment Upcoming Encounters Date Type Department Care Team (Late st Contact Info) Description 08/20/2024 3:00 PM ROLLER OPERATOR Office Visit Ear Nose Throat [address] [place] [address] Yonas Charlton II, MD [address] [facility] [place] [phone] 08/21/2024 2:00 PM ROLLER OPERATOR Office Visit [address] [address] Wade Donovan MD [address] [place] [phone] Health Maintenance Due Date Last Done Comments CT Colonography 1958 FIT-DNA 1958 Sigmoidoscopy 1960 iFOBT 1958 Zoster Vaccines (1 of 2) 1977 Pneumococcal Vaccine: 65+ Years (3 of 3 - PPSV23 or PCV20) 08/06/2019 08/27/2017, 08/06/2014 DTaP,Tdap,and Td Vaccines (3 - Td or Tdap) 02/27/2024 02/26/2014, 11/03/2002 COVID-19 Vaccine (4 - season) 2024 09/09/2021, 12/29/2020, 12/08/2020 Influenza Vaccine (#1) 2024 2, 06/24/2021, 07/12/2020, Additional history exists Medicare Annual Wellness Visit (AWV) 11/07/2024 11/07/2023, 08/11/2019, 03/06/2018 Colonoscopy 06/30/2025 09/30/2017, 11/22/2016 Colorectal Cancer Screening 06/30/2025 Fall Risk Performed 08/13/2025 08/13/2024 HPV Vaccines Aged Out No longer eligi ble based on patient's age to complete this topic Procedures Procedure Name Priority Date/Time Associated Diagnosis Comments ESTIMATED GLOMERULAR FILTRATION RATE (EGFR) Routine 08/11/2024 9:34 AM ROLLER OPERATOR USP current use of anticoagulant PROTIME-INR Routine 08/11/2024 9:34 AM ROLLER OPERATOR USP current use of anticoagulant Other pulmonary embolism without acute cor pulmonale, unspecified chronicity (HCC) VITAMIN D, TOTAL Routine 08/11/2024 9:34 AM ROLLER OPERATOR Recurrent kidney stones Paraplegia (HCC) CBC BRANCH OFFICE W/DIFF Routine 08/11/2024 9:34 AM ROLLER OPERATOR Elevated PSA COMPREHENSIVE METABOLIC PANEL Routine 08/11/2024 9:34 AM ROLLER OPERATOR ad terminal makeup operator current use of anticoagulant PSA Routine 08/11/2024 9:34 AM ROLLER OPERATOR Elevated PSA LIPID PANEL Routine 08/11/2024 9:34 AM ROLLER OPERATOR Hyperlipidemia LDL goal <100 URINALYSIS-MICROSCOPI C EXAM (REFLEXED) Routine 08/11/2024 9:24 AM ROLLER OPERATOR Cystitis URINALYSIS WITH REFLEX MICROSCOPIC Routine 08/11/2024 9:24 AM ROLLER OPERATOR Cystitis PROTIME-INR Routine 08/11/2024 PROTIME-INR Routine 07/21/2024 PROTIME-INR Routine 07/07/2024 PROTIME-INR Routine 06/23/2024 PROTIME-INR Routine 06/09/2024 PROTIME-INR Routine 05/19/2024 from Last 3 Months Results * Estimated Glomerular Filtration Rate (eGFR) (08/11/2024 9:34 AM ROLLER OPERATOR) Pathologist [facility] Estimated Glomerular Filtration Rate (eGFR) >60 08/11/2024 2:05 PM ROLLER OPERATOR [facility] Comment: GFR calculated from serum creatinine value Chronic Kidney Disease less than 60 mL/min/1.73 m2 Kidney Failure less than 15 mL/min/1.73 m2 Note: effective 09/27/2022: 2020 CKD-EPI Equation used 08/11/2024 9:34 AM ROLLER OPERATOR 08/11/2024 9:34 AM ROLLER OPERATOR us Wade Donovan MD LAB BLOOD ORDERABLES Final R esult [facility] [address] [place] [address] * (ABNORMAL) Vitamin D, Total (08/11/2024 9:34 AM ROLLER OPERATOR) Pathologist [facility] Vitamin D, Total 17.7(A) ng/mL 08/11/20 2:19 PM ROLLER OPERATOR [facility] Comment: Deficient <20 Insufficient 20-<30 Sufficient 30-100 Vitamin D2/D3 fractionation is recommended at the discretion of the clinician if Total Vitamin D is within deficient or insufficient range. Blood 08/11/2024 9:34 AM ROLLER OPERATOR 08/11/2024 12:52 PM ROLLER OPERATOR us Wade Donovan MD LAB BLOOD ORDERABLES Final R esult [facility] [address] [place] [phone] * (ABNORMAL) CBC Branch Off w/Diff (08/11/2024 9:34 AM ROLLER OPERATOR) WBC 6.3 3.5 - 10.5 K/uL 08/11/2024 9:44 AM ROLLER OPERATOR [facility] RBC 5.94(H) 4.30 - 5.70 M/uL 08/11/2024 9:44 AM ROLLER OPERATOR [facility] Hemoglobin 16.3 13.5 - 17.5 g/dL 08/11/2024 9:44 AM ROLLER OPERATOR [facility] Hematocrit 52.7(H) 38.0 - 50.0 % 08/11/2024 9:44 AM ROLLER OPERATOR [facility] Platelets 269 150 - 450 K/uL 08/11/2024 9:44 AM ROLLER OPERATOR [facility] MCV 88.7 81.2 - 95.1 fL 08/11/2024 9:44 AM ROLLER OPERATOR [facility] MCH 27.4 26.0 - 32.0 pg 08/11/2024 9:44 AM ROLLER OPERATOR [facility] MCHC 30.9(L) 32.0 - 36.0 g/dL 08/11/2024 9:44 AM ROLLER OPERATOR [facility] RDW 15.6 11.8 - 15.6 % 08/11/2024 9:44 AM ROLLER OPERATOR [facility] Lymphocytes % 20.2 % 08/11/2024 9:44 AM ROLLER OPERATOR [facility] Mid-size Cells 9.7 % 08/11/2024 9:44 AM ROLLER OPERATOR [facility] Granulocytes/Mason trophils 70.1 % 08/11/2024 9:44 AM ROLLER OPERATOR [facility] Lymphocytes Absolute 1.3 0.9 - 2.9 K/uL 08/11/2024 9:44 AM ROLLER OPERATOR [facility] MIDS Absolute 0.6 0.4 - 1.5 K/uL 08/11/2024 9:44 AM RO[facility]ER [facility] Granulocytes/Mason trophils Absolute 4.4 1.7 - 7.0 K/uL 08/11/2024 9:44 AM [facility] [place] [place] Blood 08/11/2024 9:34 AM ROLLER OPERATOR 08/11/2024 9:34 AM ROLLER OPERATOR us Wade Donovan MD LAB BLOOD ORDERABLES Final R esult Performing Organization Address City/[facility] Co de Phone Number [facility] [address] [place] [address] * (ABNORMAL) Protime-INR (08/11/2024 9:34 AM ROLLER OPERATOR) Only the most recent of7 resultswithin the time period is included. Protime 18.6(H) 9.4 - 12.5 seconds 08/11/2024 1:[address] [facility] INR 1.6 08/11/2024 1:[address] [facility] Comment: Suggested INR Therapeutic Ranges* Intensity Standard Higher 2.0-3.0 2.5-3.5 *Target INR should be individualized. Occasionally,INR range 3.0-4.5 may be appropriate. Higher intensity INR: Mechanical heart valve, etc. Blood (Blood, Venous) 08/11/2024 9:34 AM ROLLER OPERATOR 08/11/2024 12:52 PM ROLLER OPERATOR us Elli Campbell PA-C LAB BLOOD ORDERABLES Final R esult Performing Organization Address City/[facility]/ZIP Co de Phone Number [facility] [address] [place] [phone] * PSA (08/11/2024 9:34 AM [facility]) Total PSA 4.1 0.0 - 5.1 ng/mL 08/11/2024 3:32 PM ROLLER OPERATOR [facility] Comment: The results from this [...] method is an immunometric assay manufactured by [employer] and performed on the [employer] system. Biotin levels in serum remain elevated [...] testing. Blood (Blood, Venous) 08/11/2024 9:34 AM ROLLER OPERATOR 08/11/2024 12:52 PM [facility] Wade Donovan MD LAB BLOOD ORDERABLES Final R esult [facility] [address] [place] [phone] * (ABNORMAL) Lipid panel (08/11/2024 9:34 AM [facility]) Cholesterol 125 0 - 199 mg/dL 08/11/2024 2:05 PM ROLLER OPERATOR [facility] Comment: Recommended by National Cholesterol Education Program (ATP III) -------- Cholesterol Ranges -------- <200 Desirable 200-239 Borderline high >=240 High Triglycerides 81 0 - 149 mg/dL 08/11/2024 2:05 PM ROLLER OPERATOR [facility] Comment: -------- TRIG Ranges -------- <150 Normal 150-199 Borderline high 200-499 High >=500 Very high HDL 31(L) 40 - 250 mg/dL 08/11/2024 2:[address] [facility] Comment: -------- HDL Ranges -------- <40 Low 40-59 Normal >=60 Optimal LDL Calculated 78 0 - 99 mg/dL 08/11/2024 2:[address] [facility] Comment: -------- LDL Ranges -------- <100 Optimal 100-129 Near optimal/above optimal 130-159 Borderline high 160-189 High >=190 Very high Fasting? Yes 08/11/2024 9:[address] [facility] Blood 08/11/2024 9:34 AM ROLLER OPERATOR 08/11/2024 12:52 PM [facility] us Wade Donovan MD LAB BLOOD ORDERABLES Final R esult [facility] [address] [place] [address] * (ABNORMAL) Comprehensive metabolic panel (08/11/2024 9:34 AM ROLLER OPERATOR) Total Protein 7.6 6.3 - 8.2 g/dL 08/11/2024 2:[address] [facility] Albumin, Serum 4.1 3.5 - 5.0 g/dL 08/11/2024 2:[address] [facility] Total Bilirubin 1.5(H) 0.1 - 1.0 mg/dL 08/11/2024 2:[address] [facility] AST 22 8 - 48 U/L 08/11/2024 2:[address] [facility] Alkaline Phosphatase 123 38 - 128 U/L 08/11/2024 2:[address] [facility] ALT (SGPT) 22 0 - 49 U/L 08/11/2024 2:[address] [facility] Sodium 140 135 - 145 mEq/L 08/11/2024 2:[address] [facility] Potassium 3.9 3.5 - 5.1 mEq/L 08/11/2024 2:[address] [facility] Chloride 107 98 - 107 mEq/L 08/11/2024 2:[address] [facility] CO2 25 22 - 31 mmol/L 08/11/2024 2:[address] [facility] BUN 16 5 - 25 mg/dL 08/11/2024 2:[address] [facility] Creatinine 0.76 0.60 - 1.40 mg/dL 08/11/2024 2:[address] [facility] Glucose 99 70 - 100 mg/dL 08/11/2024 2:[address] [facility] Calcium, Total,S 9.2 8.4 - 10.2 mg/dL 08/11/2024 2:[address] [facility] Anion Gap 8 4 - 13 08/11/2024 2:[address] [facility] Comment: The anion gap is calculated with the following formula: AGAP = Na (Cl + CO2). Blood 08/11/2024 9:34 AM ROLLER OPERATOR 08/11/2024 12:52 PM ROLLER OPERATOR us Wade Donovan MD LAB BLOOD ORDERABLES Final R esult [facility] [address] [place] [phone] * (ABNORMAL) Urinalysis-Microscopic Exam (08/11/2024 9:24 AM ROLLER OPERATOR) Casts, urine NONE SEEN 0-2 Hyaline /lpf 08/12/2024 6:[address] [facility] Significant casts, urine NONE SEEN None Seen /lpf 08/12/2024 6:[address] [facility] RBC, Urine NONE SEEN 0 - 3 /hpf 08/12/2024 6:[address] [facility] WBC, Urine 51-100(A) /hpf 08/12/2024 6:[address] [facility] Comment: Male: 0-3/hpf Female: 0-10/hpf Squamous Epithelial, Urine NONE SEEN Few /lpf 08/12/2024 6:[address] [facility] Trans Epithelial, Urine NONE SEEN 0 - 3 /hpf 08/12/2024 6:04 AM ROLLER OPERATOR [facility] Renal Tubular Cells, Urine NONE SEEN 0 - 1 /hpf 08/12/2024 6:[address] [facility] Bacteria, Urine 4+(A) None Seen - Few /hpf 08/12/2024 6:04 AM ROLLER OPERATOR [facility] Urine Crystals NONE SEEN None Seen 08/12/2024 6:[address] [facility] 08/11/2024 9:24 AM ROLLER OPERATOR 08/11/2024 12:52 PM [facility] us DLatanya Carpenter MD LAB URINE ORDERABLES Final R esult [facility] [address] [place] [address] * (ABNORMAL) Urinalysis with reflex microscopic (08/11/2024 9:24 AM ROLLER OPERATOR) Type Saenz Insert 08/11/2024 9:34 AM ROLLER OPERATOR [facility] Color, Urine YELLOW YELLOW 08/11/2024 9:34 AM ROLLER OPERATOR [facility] Clarity, Urine CLOUDY(A) CLEAR 08/11/2024 9:34 AM ROLLER OPERATOR [facility] Glucose, Urine NEGATIVE NEGATIVE mg/dL 08/11/2024 9:34 AM ROLLER OPERATOR [facility] Bilirubin, Urine NEGATIVE NEGATIVE 08/11/2024 9:34 AM ROLLER OPERATOR [facility] Ketones, Urine NEGATIVE NEGATIVE mg/dL 08/11/2024 9:34 AM ROLLER OPERATOR [facility] Specific [place], Urine >=1.030 1.000 ->=1.030 08/11/2024 9:34 AM ROLLER OPERATOR [facility] Blood, Urine TRACE(A) NEGATIVE 08/11/2024 9:34 AM ROLLER OPERATOR [facility] pH, Urine 5.5 5.0 - 7.0 08/11/2024 9:34 AM ROLLER OPERATOR [facility] Protein, Urine NEGATIVE NEGATIVE-TRA CE mg/dL 08/11/2024 9:34 AM ROLLER OPERATOR [facility] Urobilinogen, Urine 0.2 0.2 - 1.0 E.U./dL 08/11/2024 9:34 AM ROLLER OPERATOR [facility] Nitrite, Urine POSITIVE(A) NEGATIVE 08/11/2024 9:34 AM ROLLER OPERATOR [facility] Leukocytes, Urine SMALL(A) NEGATIVE 08/11/2024 9:34 AM ROLLER OPERATOR [facility] Urine (Saenz Insert) 08/11/2024 9:24 AM ROLLER OPERATOR 08/11/2024 9:28 AM ROLLER OPERATOR DLatanya Carpenter MD LAB URINE ORDERABLES Final R esult [facility] [address] [place] [id number] from Last 3 Months Additional Health Concerns Infection Onset Date Last Indicated MSSA 08/02/2023 08/02/[id number] [place] [id number] MEDICARE [facility] Advance Directives For more information, please contact: [phone] Documents on File Type Date Recorded 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
--- OUTSIDE RECORDS SUMMARY | 2024-08-19 14:13 | XMS_ITS | Encounter Summary ---
Author Organization [facility] er Address [address] [place] [address] Care Team Providers Care Foundry Worker Name Role Phone Wade Donovan MD Primary Care Provider [phone] Encounter Details Date Type Department Care Team (Late st Contact Info) Description 08/13/2024 Telephone [place] [address] [place] [address] Wade Donovan MD [address] [place] [address] Social History Tobacco Use Types Packs/Day Years [...] week 11/07/2023 How often do you attend restorationism or episcopal serv ices? Never 11/07/2023 Do [...] Date Recorded PHQ-9 Total Score 2 08/13/20[address] [facility] - Occupational Stress Questionnaire Answer [...] Telephone Encounter - Vidhya Bain LPN - 08/13/2024 1:08 PM CST Noted LANCE DIGITAL PROJECT MANAGER * Telephone Encounter - Lalitha Pathak - 08/13/2024 12:10 PM CST Referral faxed to [facility] RAD; fax [phone], office [phone]. LANCE DIGITAL PROJECT MANAGER * Telephone Encounter - Lakisha Rucker RN - 08/13/2024 11:57 AM FREELANCE DIGITAL PROJECT MANAGER Please fax referral to [facility] (Radiology). LANCE DIGITAL PROJECT MANAGER documented in this encounter Plan of Treatment Upcoming Encounters Date Type Department Care Team (Late st Contact Info) Description 08/20/2024 3:00 PM FREELANCE DIGITAL PROJECT MANAGER Office Visit [facility] [address] [place] [address] Yonas Charlton II, MD [address] [place] [phone] 08/21/2024 2:00 PM FREELANCE DIGITAL PROJECT MANAGER Office Visit [address] [address] Wade Donovan MD [address] [place] [phone] documented as of this encounter Visit Diagnoses Not on filedocumented in this encounter Additional Health Concerns Infection Onset Date Last Indicated Resolved Time MSSA 08/02/2023 08/02/2023 documented as of this encounter Care Teams Foundry Worker Relationship Specialty Start Date End Date Wade Donovan MD [address] [place] [phone] PCP - General Family Medicine 02/05/24 documented as of this encounter
--- OUTSIDE RECORDS SUMMARY | 2024-08-19 14:13 | XMS_ITS | Clinical Summary ---
Author Organization [facility] Address [place], [place] [address] Care Team Providers Care Taxi Driver Name Role Phone Hang Carpenter Primary Care Provider [phone] Allergies Active Allergy Reactions Criticality Noted Date Comments Venom-Honey Bee Angioedema High 02/28/2018 Penicillins *Unknown - Childhood Rxn Medium 02/12/2018 Medications Medication Sig Dispensed Refills Start Date End Date Status Catheter (SELF-CATHETER, FEMALE) 14 Fr USE DIRECTED 07/22/2019 Active baclofen (LIORESAL) 10 mg tablet TAKE ONE TABLET BY MOUTH THREE TIMES A DAY FOR MULTIPLE SCLEROSIS 04/25/2023 Active atorvastatin (LIPITOR) 20 mg tablet Take 20 mg by mouth at bedtime. 10/30/2022 Active oxybutynin (DITROPAN) 5 mg tablet Take 5 mg by mouth two times daily. Active acetaminophen (TYLENOL EXTRA STRGTH) 500 mg tablet Take 1,000 mg by mouth every 6 hours if needed. Active triamcinolone (Triderm) 0.1 % cream Apply topically to affected area(s). One to two times daily as needed. Avoid face and groin Active sennosides (Senna) 8.6 mg tablet Take 17.2 mg by mouth once daily. Active olopatadine (Pataday Once Daily Relief) 0.2 % ophthalmic solution Place 1 Drop into both eyes once daily. Active levETIRAcetam (KEPPRA) 500 mg tabletIndications:Se izure prophylaxis Take 1 Tablet (500 mg) by mouth two times daily. 180 Tablet 11/22/2023 Active warfarin (COUMADIN) 2 mg tabletIndications:Hi story of pulmonary embolus (PE) Take 2 Tablets (4 mg) by mouth every Sunday, Sunday and Sunday. Take 4 mg by mouth every Sunday, Sunday and Sunday. January resume 11/2911/30/2023 Active warfarin (COUMADIN) 2 mg tabletIndications:Hi story of pulmonary embolus (PE) Take 2 mg by mouth every Sunday, , Sunday and Sunday. January resume 11/3012/01/2023 Active Active Problems Problem Noted Date Diagnosed Date S/P resection of meningioma 11/21/2023 Meningioma 11/01/2023 Family History Medical History Relation Name Comments Heart Disease Father Hypertension Father Hypertension Mother Relation Name Status Comments Father Mother Social History Tobacco Use Types Packs/Day Years Used Date Smoking Tobacco: Former Cigarettes Q uit: 07/31/1989 Smokeless Tobacco: Current Chew Tobacco Cessation:Ready to Q uit: Not Asked Alcohol Use Standard Drinks/Week Comments No 0 (1 standard drink = 0.6 oz pur e alcohol) Social Connections Answer Date Recorded Frequency of Communication with Friends and Fami ly Not on file 11/20/2023 Sex and Gender Information Value Date Recorded Sex Assigned at Not on file Gender Identity Not on file Sexual Orientation Not on file Obstetrics History Last Filed Vital Signs Vital Sign Reading Time Taken Comments Blood Pressure 118/82 12/04/2023 1:30 PM WRAPPER OPERATOR Pulse 108 03/17/2024 1:02 PM CDT Temperature 36.6 C (97.9 F) 03/17/2024 1:02 PM CDT Respiratory Rate 17 03/17/2024 1:02 PM CDT Oxygen Saturation 96% 03/17/2024 1:02 PM CDT Inhaled Oxygen Concentration - - Weight 86.2 kg (190 lb) 11/20/2023 6:47 AM WRAPPER OPERATOR Height 182.9 cm (6') 11/20/2023 6:47 AM WRAPPER OPERATOR Body Mass Index 25.77 11/20/2023 6:47 AM WRAPPER OPERATOR Plan of Treatment Health Maintenance Due [...] 02/12/2019 02/12/2018 AAA screening age 65-74 2023 Medicare Wellness for age 65+ 2023 Pneumococcal series for age 65+ (1 of 1 - PCV) 2023 COVID-19 vaccine series ( season) 2024 09/09/2021, 12/29/2020, 12/08/2020 Influenza for age 65+ 06/01/2024 Medical Devices Implanted Type Area Mask Inspector Device Identifier Shelf Expiration Date Model / Serial / Lot Stent Uret [id number] Percuflex Hydroplus - [id number] Implanted:Qty: 1 on 03/04/2018 by Jordi Piedra MD at [facility] Right: Ureter [facility] 07/29/2020 [id number]# / / [id number] Stent Uret [id number] Percuflex Hydroplus - [id number] Implanted:Qty: 1 on 08/01/2019 by Jordi Piedra MD at [facility] Right: Ureter [facility] 02/23/2022 [id number]# / / [id number] Stent Uret [id number] Percuflex Hydroplus - [id number] Implanted:Qty: 1 on 10/16/2023 by Osito Pate MD at [facility] Right: Ureter [facility] 03/23/2026 [id number] / / [id number] Dura Neuro 2x2in Duragen Plusnon-Sut - [id number] Implanted:Qty: 1 on 11/20/2023 by Jevon Trejo MD at [facility] [employer]ium [employer] Sigifredo 06/30/2026 [id number] / / [id number] Screw Neuro 4mm Matrixneuro Slf Drill Titnm - [id number] Implanted:Qty: 6 on 11/20/2023 by Jevon Trejo MD at [facility] J And J Depuy CMF [id number] 4.01 / / Plate Facial 70x1.5mm Synthes Midface Mesh Contourable - [id number] Implanted:Qty: 1 on 11/20/2023 by Jevon Trejo MD at [facility] J And J Depuy [facility] [id number] / / Advance Directives * Full Code (Latest Code Status on File) Date Activated Date Inactivated Comments 11/20/2023 6:03 AM 11/22/2023 3:53 PM Question Answer Comments Code Status Discussion: Per Existing Order * Full Code Date Activated Date Inactivated Comments 10/16/2023 10:37 AM 10/16/2023 6:57 PM Should be d iscussed pre operatively with anesthesia or surgeon Question Answer Comments Code Status Discussion: Not Discussed * Full Code Date Activated Date Inactivated Comments 08/01/2019 9:15 AM 08/01/2019 5:21 PM * Full Code Date Activated Date Inactivated Comments 03/04/2018 5:50 AM 03/04/2018 1:54 PM Care Teams Taxi Driver Relationship Specialty Start Date End Date Hang Carpenter [address] [place] [address] PCP - General Family Practice 09/01/15
--- OUTSIDE RECORDS SUMMARY | 2024-08-19 14:14 | XMS_ITS | Encounter Summary ---
Author Organization [facility] er Address [address] [place] [address] Care Team Providers Care Veterinary Surgery Technician Name Role Phone Wade Donovan MD Primary Care Provider [phone] Encounter Details Date Type Department Care Team (Latest Contact Info) Description 06/23/2024 Anticoagulation - Warfarin Visit [facility]/Internal Medicine - Third Floor [address] [place], [place] [phone] Anna Betts, ROBERT [address] [facility] [facility] [address] [place] [address] USP current use of anticoagulant (Primary Dx); [...] week 11/07/2023 How often do you attend jain or jewish serv ices? Never 11/07/2023 Do you belong [...] Date Recorded PHQ-9 Total Score 2 02/21/2024 [facility] [...] in a group home (including now)? No 11/07/2023 Sex and Gender Information Value Date Recorded Sex Assigned at Not on file Legal Sex Male 8:31 PM CDT Gender Identity Not on file Sexual Orientation Not on file Occupation Industry Job Start Date Job End Date Disability Not on file Not on file Not on file documented as of this encounter Progress Notes * Anna Betts RN - 06/23/2024 1:34 PM CDT Anticoagulation Clinic INR RESULTS: INR (no units) Date Value 06/23/2024 2.20 (A) DOSE PLAN: 4mg every Mon, Wed, Fri; 2mg all other days DOSE CHANGE: No change NEXT INR: 07/07/24 INR results not reviewed with patient. INR is within patient's goal range and dosing instructions have not been changed. AVS sent through [employer]. documented in this encounter Plan of Treatment Upcoming Encounters Date Type Department Care Team (Late st Contact Info) Description 08/20/2024 3:00 PM QUALITY CONTROL ANALYST Office Visit [facility] [address] [place] [address] Yonas Charlton II, MD [address] [place] [address] 08/21/2024 2:00 PM QUALITY CONTROL ANALYST Office Visit [place] [address] [address] Wade Donovan MD 1705 [facility] 20 [place] [address] documented as of this encounter Procedures Procedure Name Priority Date/Time Associated Diagnosis Comments PROTIME-INR Routine 06/23/2024 documented in this encounter Results * (ABNORMAL) Protime-INR (06/23/2024) INR 2.20(A) 0.90 - 1.10 HOME HEA LT POINT OF CARE TESTING Protime HOME HEALT H POINT OF CARE TESTING Blood (Blood, Venous) Historical Provider LAB BLOOD ORDERABLES Mini l Result HOME HEALTH POINT OF CARE TESTING documented in this encounter Visit 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
--- OUTSIDE RECORDS SUMMARY | 2024-08-19 14:14 | XMS_ITS | Encounter Summary ---
Author Organization [facility] er Address [address] [place] [address] Care Team Providers Care Weapons Engineer Name Role Phone Wade Donovan MD Primary Care Provider [phone] Reason for Visit * Reason Onset Date Comments Med Refill Med Refill 11/08/2021 Encounter Details Date Type Department Care Team (Late st Contact Info) Description 10/28/2021 Refill [place] [address] [place] [address] Adarsh Carpenter MD [address] [place] [address] Other pulmonary embolism without acute cor pulmonale, [...] Family Three times a week 08/11/2019 Attends Hindu Services Never 08/11 Active Member of Clubs [...] Date Recorded PHQ-9 Total Score 0 07/23/2020 [facility] - [...] 10/27/2021 INR 0.9 - 1.1 2.40 (A) E OPERATOR CONTACT LENS documented in this encounter Plan of Treatment Upcoming Encounters Date Type Department Care Team (Late st Contact Info) Description 08/20/2024 3:00 PM LATHE OPERATOR CONTACT LENS Office Visit [facility] [address] [place] [address] Yonas Charlton II, MD [address] [place] [phone] 08/21/2024 2:00 PM LATHE OPERATOR CONTACT LENS Office Visit [place] [address] [address] Wade Donovan MD [address] [address] documented as of this encounter Visit Diagnoses Diagnosis Other pulmonary embolism without acute cor pulmonale, unspecified chronicity (HCC) documented in this encounter Additional Health Concerns Infection Onset Date Last Indicated Resolved Time MSSA 10/04/2018 10/04/2018 06/28/2022 8:27 AM CDT MSSA 06/19/2023 07/04/2023 07/17/2023 2:29 PM CDT MSSA 08/02/2023 08/02/2023 documented as of this encounter Care Teams Weapons Engineer Relationship Specialty [place] [address] [place] [phone] PCP - General Family Medicine 02/05/24 documented as of this encounter
--- OUTSIDE RECORDS SUMMARY | 2024-08-19 14:14 | XMS_ITS | Encounter Summary ---
Author Organization [facility] er Address [address] [place] [address] Care Team Providers Care Heading And Priming Tool Setter Name Role Phone Wade Donovan MD Primary Care Provider [phone] Reason for Visit * Reason Onset Date Comments Med Refill 08/05/2018 Encounter Details Date Type Department Care Team ([facility] Contact Info) Description 08/05/2018 Refill [place] [address] [place] [address] Adarsh Carpenter MD 1705 [facility] 20 [place] [address] Social History Tobacco Use Types Packs/Day Years [...] Upcoming Encounters Date Type Department Care Team ([facility] Contact Info) Description 08/20/2024 3:00 PM MARINE ELECTRICIAN APPRENTICE Office Visit [facility] [address] [place], [place] [address] Yonas Charlton II, MD [address] [facility] [place] [address] 08/21/2024 2:00 PM MARINE ELECTRICIAN APPRENTICE Office Visit [place] [address] [place] [address] Wade Donovan MD [address] [address] documented as of this encounter Visit Diagnoses Not on filedocumented in this encounter Additional Health Concerns Infection Onset Date Last Indicated Resolved Time MSSA 10/04/2018 10/04/2018 06/28/2022 8:27 AM CDT MSSA 06/19/2023 07/04/2023 07/17/2023 2:29 PM CDT MSSA 08/02/2023 08/02/2023 documented as of this encounter Care Teams Heading And Priming Tool Setter Relationship Specialty Start Date End Date Wade Donovan MD [address] [address] PCP - General Family Medicine 02/05/24 documented as of this encounter
--- OUTSIDE RECORDS SUMMARY | 2024-08-19 14:14 | XMS_ITS | Encounter Summary ---
Author Organization [facility] er Address [address] [place] [address] Care Team Providers Care Senior Financial Analyst Name Role Phone Wade Donovan MD Primary Care Provider [phone] Encounter Details Date Type Department Care Team (Latest Contact Info) Description 06/10/2024 Anticoagulation - Warfarin Visit [facility]/Internal Medicine - Third Floor [address] [place], [place] [address] Tori Caceres, RN [address] [facility] [address] long term current use of anticoagulant (Primary Dx); Other [...] week 11/07/2023 How often do you attend samaritan or latter day serv ices? Never 11/07/2023 Do you belong to any clubs o r organizations such as samaritan groups, unions, fraternal [...] Date Recorded PHQ-9 Total Score 2 02/21/2024 [facility] - Occupational Stress Questionnaire Answer Date [...] in a long term (including now)? No 11/07/2023 Sex and Gender Information Value Date Recorded Sex Assigned at Not on file Legal Sex Male 8:31 PM CDT Gender Identity Not on file Sexual Orientation Not on file Occupation Industry Job Start Date Job End Date Disability Not on file Not on file Not on file documented as of this encounter Progress Notes * Tori Caceres RN - 06/10/2024 8:27 AM CDT Anticoagulation Clinic INR RESULTS: INR (no units) Date Value 06/09/2024 2.40 (A) DOSE PLAN: 4 mg every Mon, Wed, Fri; 2 mg all other days DOSE CHANGE: No change NEXT INR: 06/23/2024 INR results not reviewed with patient. INR is within patient's goal range and dosing instructions have not been changed. AVS sent through [employer]. documented in this encounter Plan of Treatment Upcoming Encounters Date Type Department Care Team (Late st Contact Info) Description 08/20/2024 3:00 PM PRICING/SIGNAGE TEAM MEMBER Office Visit [facility] [address] [place] [address] Yonas Charlton II, MD 210 [facility] [address] 08/21/2024 2:00 PM PRICING/SIGNAGE TEAM MEMBER Office Visit [place] [address] [address] Wade Donovan MD 1705 [facility] 20 [place] [address] documented as of this encounter Procedures Procedure Name Priority Date/Time Associated Diagnosis Comments PROTIME-INR Routine 06/09/2024 documented in this encounter Results * (ABNORMAL) Protime-INR (06/09/2024) INR 2.40(A) 0.90 - 1.10 HOME HEA LT POINT OF CARE TESTING Protime HOME HEALT H POINT OF CARE TESTING Blood (Blood, Venous) Narrative Resulting Agency Comment [employer] fax us Historical Provider LAB BLOOD ORDERABLES Mini l Result HOME HEALTH POINT OF CARE TESTING documented in this encounter Visit Diagnoses Diagnosis senior care current use of anticoagulant- Primary Other pulmonary embolism without acute cor pulmonale, unspecified chronicity (HCC) documented in this encounter Additional Health Concerns Infection Onset Date Last Indicated Resolved Time MSSA 08/02/2023 08/02/2023 documented as of this encounter Care Teams Senior Financial Analyst Relationship Specialty [place] [address] [place] [phone] PCP - General Family Medicine 02/05/24 documented as of this encounter
--- OUTSIDE RECORDS SUMMARY | 2024-08-19 14:14 | XMS_ITS | Encounter Summary ---
Author Organization [facility] er Address [address] [place] [address] Care Team Providers Care Director Of National Sales Name Role Phone Wade Donovan MD Primary Care Provider [phone] Encounter Details Date Type Department Care Team (Latest Contact Info) Description 05/19/2024 Anticoagulation - Warfarin Visit SE [facility]/Internal Medicine - Third Floor [address] [place], [place] [address] Dolores Cleary, RN 210 [facility] [place] [address] adjunct faculty for medical terminology [...] How often do you attend buddhist or buddhism serv ices? Never 11/07/2023 Do you belong [...] Date Recorded PHQ-9 Total Score 2 02/21/2024 [facility] - Occupational Stress Questionnaire Answer [...] slept in a longterm (including now)? No 11/07/2023 Sex and Gender Information Value Date Recorded Sex Assigned at Not on file Legal Sex Male 8:31 PM CDT Gender Identity Not on file Sexual Orientation Not on file Occupation Industry Job Start Date Job End Date Disability Not on file Not on file Not on file documented as of this encounter Progress Notes * Dolores Cleary RN - 05/19/2024 10:38 AM CDT Anticoagulation Clinic INR RESULTS: INR (no units) Date Value 05/19/2024 2.30 (A) DOSE PLAN: 4 mg Mon, Wed, Fri; 2 mg all other days DOSE CHANGE: No change NEXT INR: 06/03/2024 INR results not reviewed with patient. INR is within patient's goal range and dosing instructions have not been changed. AVS sent through [employer]. documented in this encounter Plan of Treatment Upcoming Encounters Date Type Department Care Team (Late st Contact Info) Description 08/20/2024 3:00 PM ERGONOMICS ENGINEER Office Visit [facility] [address] [place] [address] Yonas Charlton II, MD [address] [facility] [place] [address] 08/21/2024 2:00 PM ERGONOMICS ENGINEER Office Visit [place] [address] [address] Wade Donovan MD 1705 [facility] 20 [place] [address] documented as of this encounter Procedures Procedure Name Priority Date/Time Associated Diagnosis Comments PROTIME-INR Routine 05/19/2024 documented in this encounter Results * (ABNORMAL) Protime-INR (05/19/2024) INR 2.30(A) 0.90 - 1.10 HOME HEA LT POINT [...] as of this encounter Care Teams Director Of National Sales Relationship Specialty Start Date End Date Wade Donovan MD [address] [facility] 20 [place] [address] PCP - General Family Medicine 02/05/24 documented as of this encounter
--- OUTSIDE RECORDS SUMMARY | 2024-08-19 14:14 | XMS_ITS | Encounter Summary ---
Author Organization [facility] er Address [address] [place] [address] Care Team Providers Care Manager Commodities Name Role Phone Wade Donovan MD Primary Care Provider [phone] Encounter Details Date Type Department Care Team (Latest Contact Info) Description 07/07/2024 Anticoagulation - Warfarin Visit Internal Medicine [address] [place] [address] Tori Caceres, RN [address] [facility] [place] [address] terminal computer operator current use of anticoagulant (Primary Dx); [...] week 11/07/2023 How often do you attend jainism or adventist serv ices? Never 11/07/2023 Do you belong to any clubs o r organizations such as jainism groups, unions, fraternal [...] Date Recorded PHQ-9 Total Score 2 02/21/2024 [facility] - Occupational Stress Questionnaire Answer Date [...] slept in a fdc (including now)? No 11/07/2023 Sex and Gender Information Value Date Recorded Sex Assigned at Not on file Legal Sex Male 8:31 PM CDT Gender Identity Not on file Sexual Orientation Not on file Occupation Industry Job Start Date Job End Date Disability Not on file Not on file Not on file documented as of this encounter Progress Notes * Tori Caceres RN - 07/07/2024 1:34 PM CDT Anticoagulation Clinic INR RESULTS: INR (no units) Date Value 07/07/2024 2.40 (A) DOSE PLAN: 4 mg every Mon, Wed, Fri; 2 mg all other days DOSE CHANGE: No change NEXT INR: 07/21/2024 INR results not reviewed with patient. INR is within patient's goal range and dosing instructions have not been changed. AVS sent through [employer]. documented in this encounter Plan of Treatment Upcoming Encounters Date Type Department Care Team (Late st Contact Info) Description 08/20/2024 3:00 PM PASTER HAT LINING Office Visit [facility] [address] [place] [address] Yonas Charlton II, MD [address] [place] [address] 08/21/2024 2:00 PM PASTER HAT LINING Office Visit [address] [address] Wade Donovan MD 1705 [facility] 20 [place] [address] documented as of this encounter Procedures Procedure Name Priority Date/Time Associated Diagnosis Comments PROTIME-INR Routine 07/07/2024 documented in this encounter Results * (ABNORMAL) Protime-INR (07/07/2024) INR 2.40(A) 0.90 - 1.10 HOME HEA LT POINT OF CARE TESTING Protime HOME HEALT H POINT OF CARE TESTING Blood (Blood, Venous) Narrative Resulting Agency Comment [employer] fax. us Historical Provider LAB BLOOD ORDERABLES Mini l Result HOME HEALTH POINT OF CARE TESTING documented in this encounter Visit Diagnoses Diagnosis [facility] current use of anticoagulant- Primary Other pulmonary embolism without acute cor pulmonale, unspecified chronicity (HCC) documented in this encounter Additional Health Concerns Infection Onset Date Last Indicated Resolved Time MSSA 08/02/2023 08/02/2023 documented as of this encounter Care Teams Manager Commodities Relationship Specialty Start Date End Date Wade Donovan MD 1705 [facility] 20 [place] [address] PCP - General Family Medicine 02/05/24 documented as of this encounter
--- OUTSIDE RECORDS SUMMARY | 2024-08-19 14:14 | XMS_ITS | Encounter Summary ---
Author Organization [facility] er Address [address] [place] [address] Care Team Providers Care Solar Energy Consultant And Designer Name Role Phone Wade Donovan MD Primary Care Provider [phone] Reason for Visit * Reason Comments Med Refill Encounter Details Date Type Department Care Team (Late st Contact Info) Description 07/26/2024 Refill [place] [address] [place] [address] Wade Donovan MD [address] [place] [address] Multiple sclerosis (HCC) Social History Tobacco Use [...] week 11/07/2023 How often do you attend uatsdin or pentecostal serv ices? Never 11/07/2023 Do you belong [...] Date Recorded PHQ-9 Total Score 2 02/21/2024 [facility] - Occupational Stress Questionnaire Answer [...] slept in a long-term (including now)? No 11/07/2023 Sex and Gender [...] * Telephone Encounter - Lalitha Pathak - 07/29/2024 9:26 AM CDT Contacted to schedule annual physical. [place], [place] not have calendar, back Sun of this week. Will call to schedule w/Dr. Donovan. * Telephone Encounter - Brook Mckeon LPN - 07/28/2024 7:54 AM CDT Patient is past due for annual exam. PSR: Please contact patient to assist with scheduling. Upcoming appointment with provider: Visit date not found Last visit in provider department: 02/21/2024 -growth on nose next to eye Last visit requested medication was discussed: 11/07/23 -Pre Op Exam Last annual exam: 12/27/33 Last Rx: BACLOFEN 10MG TABS 05/06/24 #270 no refills Dx: Multiple sclerosis (HCC) [G35] Requested Prescriptions Pending Prescriptions Disp Refills baclofen (LIORESAL) 10 MG tablet [Pharmacy Med Name: BACLOFEN 10MG TABS] 270 tablet 0 Sig: TAKE ONE TABLET BY MOUTH THREE TIMES A DAY FOR MULTIPLE SCLEROSIS Vitals: BP Readings from Last 2 Encounters: 02/21/24 121/85 11/07/23 126/85 documented in this encounter Plan of Treatment Upcoming Encounters Date Type Department Care Team (Late st Contact Info) Description 08/20/2024 3:00 PM REPAIRER Office Visit Ear Nose Throat [address] [place] [address] Yonas Charlton II, MD 210 [place] [phone] 08/21/2024 2:00 PM REPAIRER Office Visit [address] [address] [place] [address] [place] [phone] documented as of this encounter Visit Diagnoses Diagnosis Multiple sclerosis (HCC) Multiple sclerosis documented in this encounter Additional Health Concerns Infection Onset Date Last Indicated Resolved Time MSSA 08/02/2023 08/02/2023 documented as of this encounter Care Teams Solar Energy Consultant And Designer Relationship Specialty Start Date End Date Wade Donovan MD [address] [place] [phone] PCP - General Family Medicine 02/05/24 documented as of this encounter
--- OUTSIDE RECORDS SUMMARY | 2024-08-19 14:14 | XMS_ITS | Encounter Summary ---
Author Organization [facility] er Address [address] [place] [address] Care Team Providers Care Cook Helper Vegetable Name Role Phone Wade Donovan MD Primary Care Provider [phone] Reason for Visit * Reason Onset Date Comments PHYSICAL SCHEDULED 08/06/2024 Encounter Details Date Type Department Care Team (Late st Contact Info) Description 08/06/2024 Telephone [place] [address] [place] [phone] Wade Donovan MD 1705 [facility] 20 [place] [address] PHYSICAL SCHEDULED Social History Tobacco Use Types Packs/Day Years [...] week 11/07/2023 How often do you attend muslim or confucianist serv ices? Never 11/07/2023 Do you belong [...] Date Recorded PHQ-9 Total Score 2 02/21/2024 [facility] of Occupat ional [facility] - Occupational Stress Questionnaire Answer [...] slept in a prison (including now)? No 11/07/2023 Sex and Gender Information Value Date Recorded Sex Assigned at Not on file Legal Sex Male 8:31 PM CDT Gender Identity Not on file Sexual Orientation Not on file Occupation Industry Job Start Date Job End Date Disability Not on file Not on file Not on file documented as of this encounter Miscellaneous Notes * Telephone Encounter - Xin Rivas BSN - 08/06/2024 9:13 AM CENTERLESS GRINDER Last visit in the department 02/21/2024 Upcoming visit with provider 08/13/2024 Patient Active Problem List Diagnosis Date Noted S/P resection of meningioma 11/21/2023 Meningioma (HCC) 11/01/2023 Sepsis secondary to UTI (HCC) 11/01/2023 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/2023 Urinary bladder stone 08/14/2023 Hyperlipidemia LDL goal <100 11/03/2021 Dry skin dermatitis 11/03/2021 Recurrent kidney stones 11/03/2021 Pressure injury of buttock, stage 1 07/25/2018 Other pulmonary embolism without acute cor pulmonale (HCC) 07/22/2018 Neurogenic bladder 02/14/2018 penitentiary current use of anticoagulant 01/02/2018 Anemia 12/25/2017 Pulmonary embolism (HCC) 11/20/2017 Sensorineural hearing loss 08/27/2017 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 Paraplegia (HCC) 10/04/2015 Moderate episode of recurrent major depressive disorder (HCC) 08/11/2015 Family history of malignant neoplasm of gastrointestinal tract 02/26/2014 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 Labs pending for review. ERLESS GRINDER * Telephone Encounter - Lalitha Pathak - 08/06/2024 9:04 AM CST Physical scheduled 08.13.24 w/Dr. Donovan at [facility]. 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 ERLESS GRINDER documented in this encounter Plan of Treatment Upcoming Encounters Date Type Department Care Team (Late st Contact Info) Description 08/20/2024 3:00 PM CENTERLESS GRINDER Office Visit Ear Nose Throat [address] [place], [place] [address] Yonas Charlton II, MD [address] [place] [address] 08/21/2024 2:00 PM CENTERLESS GRINDER Office Visit [address] [address] Wade Donovan MD [address] [place] [phone] documented as of this encounter Visit Diagnoses Diagnosis Hyperlipidemia LDL goal <100- Primary Other and unspecified hyperlipidemia documented in this encounter Additional Health Concerns Infection Onset Date Last Indicated Resolved Time MSSA 08/02/2023 08/02/2023 documented as of this encounter Care Teams Cook Helper Vegetable Relationship Specialty Start Date End Date Wade Donovan MD [address] [place] [address] PCP - General Family Medicine 02/05/24 documented as of this encounter
--- OUTSIDE RECORDS SUMMARY | 2024-08-19 14:14 | XMS_ITS | Encounter Summary ---
Author Organization [facility] er Address [address] [place] [address] Care Team Providers Care Pipe Buffer Name Role Phone Wade Donovan MD Primary Care Provider [phone] Encounter Details Date Type Department Care Team (Late st Contact Info) Description 08/07/2019 Telephone [place] [address] [place] [phone] Adarsh Carpenter MD [address] [place] [address] Social History Tobacco Use Types Packs/Day Years [...] Family Three times a week 08/11/2019 Attends [employer] Services Never 08/11 Active Member of Clubs [...] Answer Date Recorded PHQ-2 Score 9 08/11/2019 [facility] [place] of Occupat ional Health - Occupational Stress [...] st Contact Info) Description 08/20/2024 3:00 PM EMERGENCY GENERATOR MECHANIC Office Visit Ear Nose Throat [address] [place] [address] Ynoas Charlton II, MD [address] [place] [phone] 08/21/2024 2:00 PM EMERGENCY GENERATOR MECHANIC Office Visit [place] [address] [place] [address] Wade Donovan MD [address] [place] [phone] documented as of this encounter Visit Diagnoses Not on filedocumented in this encounter Additional Health Concerns Infection Onset Date Last Indicated Resolved Time MSSA 10/04/2018 10/04/2018 06/28/2022 8:27 AM CDT MSSA 06/19/2023 07/04/2023 07/17/2023 2:29 PM CDT MSSA 08/02/2023 08/02/2023 documented as of this encounter Care Teams Pipe Buffer Relationship Specialty Start Date End Date Wade Donovan MD [address] [place] [address] PCP - General Family Medicine 02/05/24 documented as of this encounter
--- OUTSIDE RECORDS SUMMARY | 2024-08-19 14:14 | XMS_ITS | Encounter Summary ---
Author Organization [facility] er Address [address] [place] [address] Care Team Providers Care Header Machine Operator Name Role Phone Wade Donovan MD Primary Care Provider [phone] Reason for Visit * Reason Comments Med Refill Encounter Details Date Type Department Care Team (Late st Contact Info) Description 04/06/2019 Refill [place] [address] [place] [address] Adarsh Carpenter MD 1705 [facility] 20 [place] [address] Other pulmonary embolism without acute cor pulmonale, [...] st Contact Info) Description 08/20/2024 3:00 PM HAND RIVETER Office Visit Ear Nose Throat [address] [place] [phone] Yonas Charlton II, MD 210 [place] [phone] 08/21/2024 2:00 PM HAND RIVETER Office Visit [address] [address] [place] [address] [place] [phone] documented as of this encounter Visit Diagnoses Diagnosis Other pulmonary embolism without acute cor pulmonale, unspecified chronicity (HCC)- Primary documented in this encounter Additional Health Concerns Infection Onset Date Last Indicated Resolved Time MSSA 10/04/2018 10/04/2018 06/28/2022 8:27 AM CDT [facility] 06/19/2023 07/04/2023 07/17/2023 2:29 PM CDT [facility] 08/02/2023 08/02/2023 documented as of this encounter Care Teams Header Machine Operator Relationship Specialty Start Date End Date Wade Donovan MD [address] [place] [phone] PCP - General Family Medicine 02/05/24 documented as of this encounter
--- OUTSIDE RECORDS SUMMARY | 2024-08-19 14:14 | XMS_ITS | Encounter Summary ---
Author Organization [facility] er Address [address] [place] [address] Care Team Providers Care Beef Breaker Name Role Phone Wade Donovan MD Primary Care Provider Reason for Visit * Reason Onset Date Comments Med Refill 06/03/2020 Encounter Details Date Type Department Care Team (Late st Contact Info) Description 06/03/2020 Refill [place] [address] [place] [phone] Adarsh Carpenter MD [address] [place] [address] Other pulmonary embolism without acute cor pulmonale, [...] Answer Date Recorded PHQ-2 Score 0 01/19/2020 [facility] of Occupat ional Health - [...] st Contact Info) Description 08/20/2024 3:00 PM SEAL SKINNER Office Visit Ear Nose Throat [address] [place] [address] Yonas Charlton II, MD [address] [place] [phone] 08/21/2024 2:00 PM SEAL SKINNER Office Visit [place] [address] [address] Wade Donovan MD [address] [phone] documented as of this encounter Visit Diagnoses Diagnosis Other pulmonary embolism without acute cor pulmonale, unspecified chronicity (HCC) documented in this encounter Additional Health Concerns Infection Onset Date Last Indicated Resolved Time MSSA 10/04/2018 10/04/2018 06/28/2022 8:27 AM CDT MSSA 06/19/2023 07/04/2023 07/17/2023 2:29 PM CDT MSSA 08/02/2023 08/02/2023 documented as of this encounter Care Teams Beef Breaker Relationship Specialty Start Date End Date Wade Donovan MD [address] [phone] PCP - General Family Medicine 02/05/24 documented as of this encounter
--- OUTSIDE RECORDS SUMMARY | 2024-08-19 14:14 | XMS_ITS | Encounter Summary ---
Author Organization [facility] er Address [address] [place] [address] Care Team Providers Care Business Continuity Strategy Director Name Role Phone Wade Donovan MD Primary Care Provider [phone] Encounter Details Date Type Department Care Team (Late st Contact Info) Description 01/25/2024 Telephone [place] [address] [place] [address] Hali Soriano, BEHAVIOR INTERVENTIONIST [address] [place] [address] Social History Tobacco Use Types Packs/Day Years [...] week 11/07/2023 How often do you attend quaker or rastafarian serv ices? Never 11/07/2023 Do you belong to any clubs o r organizations such as quaker groups, unions, fraternal [...] Answer Date Recorded PHQ-9 Total Score 1 11/07/2023 [facility] - [facility]ational Stress Questionnaire [...] in a nursing home (including now)? No 11/07/2023 Sex and [...] st Contact Info) Description 08/20/2024 3:00 PM BUCKET HOOKER Office Visit Ear Nose Throat [address] [place] [address] Yonas Charlton II, MD 210 [facility] [place] [phone] 08/21/2024 2:00 PM BUCKET HOOKER Office Visit [address] [address] Wade Donovan MD [address] [phone] documented as of this encounter Visit Diagnoses Not on filedocumented in this encounter Additional Health Concerns Infection Onset Date Last Indicated Resolved Time MSSA 08/02/2023 08/02/2023 documented as of this encounter Care Teams Business Continuity Strategy Director Relationship Specialty Start Date End Date Wade Donovan MD [address] [place] [phone] PCP - General Family Medicine 02/05/24 documented as of this encounter
--- OUTSIDE RECORDS SUMMARY | 2024-08-19 14:14 | XMS_ITS | Encounter Summary ---
Author Organization 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 Never 11/07/2023 Do you belong [...] Date Recorded PHQ-9 Total Score 2 02/21/2024 [facility] - Occupational Stress Questionnaire Answer [...] Progress Notes * Tori Caceres RN - 07/21/2024 10:31 AM CDT Anticoagulation Clinic INR RESULTS: INR (no units) Date Value 07/21/2024 1.80 (A) DOSE PLAN: 4 mg every Mon, Wed, Fri; 2 mg all other days DOSE CHANGE: No change NEXT INR: 08/04/2024 INR results not reviewed with patient. INR is within patient's goal range and dosing instructions have not been changed. AVS sent through [facility]. documented in this encounter Plan of Treatment Upcoming Encounters Date Type Department Care Team (Late st Contact Info) Description 08/20/2024 3:00 PM CONSTRUCTION ADMINISTRATOR Office Visit SE Ear Nose Throat [address] [place] [address] Yonas Charlton II, MD [address] [place] [address] 08/21/2024 2:00 PM CONSTRUCTION ADMINISTRATOR Office Visit [address] [address] Wade Donovan MD 1705 [facility] 20 [place] [address] documented as of this encounter Procedures Procedure Name Priority Date/Time Associated Diagnosis Comments PROTIME-INR Routine 07/21/2024 documented in this encounter Results * (ABNORMAL) Protime-INR (07/21/2024) INR 1.80(A) 0.90 - 1.10 HOME HEA LT POINT OF CARE TESTING Protime HOME HEALT H POINT OF CARE TESTING Blood (Blood, Venous) Narrative Resulting Agency Comment [facility] fax. 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
--- OUTSIDE RECORDS SUMMARY | 2024-08-19 14:14 | XMS_ITS | Encounter Summary ---
Author Organization [facility] er Address [address] [place] [address] Care Team Providers Care Guest Request Runner Name Role Phone Wade Donovan MD Primary Care Provider [phone] Reason for Visit * Reason Comments Med Refill Encounter Details Date Type Department Care Team (Late st Contact Info) Description 08/01/2024 Refill [place] [address] [place] [address] Wade Donovan MD [address] [place] [address] Recurrent UTI Social History Tobacco Use Types Packs/Day [...] week 11/07/2023 How often do you attend yazidism or sabianism serv ices? Never 11/07/2023 Do you belong [...] Date Recorded PHQ-9 Total Score 2 02/21/2024 [facility] of Occupat ional Health - Occupational Stress [...] Telephone Encounter - Vidhya Bain LPN - 08/06/2024 9:42 AM CST Labs need to be placed. RATION TAILOR APPRENTICE * Telephone Encounter - Lalitha Pathak - 08/06/2024 9:05 AM CST Physical 08.13.24 w/Dr. Donovan at [facility]. Fasting labs 08.11.24. Message sent to triage nurse line for lab pit recorder. RATION TAILOR APPRENTICE * Telephone Encounter - Brook Mckeon LPN - 08/01/2024 2:26 PM CDT Patient is due for annual exam appointment. PSR: Please contact patient to assist with scheduling. Upcoming appointment with provider: Visit date not found Last visit in provider department: 02/21/2024 -growth on nose next to eye Last annual exam: 12/27/22 Last visit requested medication was discussed: 12/20/23 Telemed -recurrent UTI Last Rx: SULFAMETHOXAZOLE-TRIMET 400-80 TABS 04/14/24 #6 refill x 3 Dx: Recurrent UTI [N39.0] Requested Prescriptions Pending Prescriptions Disp Refills sulfamethoxazole-trimethoprim (BACTRIM) 400-80 MG per tablet [Pharmacy Med Name: SULFAMETHOXAZOLE-TRIMET 400-80 TABS] 6 tablet 3 Sig: TAKE ONE-HALF TABLET BY MOUTH THREE TIMES A WEEK. Vitals: BP Readings from Last 2 Encounters: 02/21/24 121/85 11/07/23 126/85 documented in this encounter Plan of Treatment Upcoming Encounters Date Type Department Care Team (Late st Contact Info) Description 08/20/2024 3:00 PM ALTERATION TAILOR APPRENTICE Office Visit Ear Nose Throat [address] [place] [address] Yonas Charlton II, MD 210 [place] [phone] 08/21/2024 2:00 PM ALTERATION TAILOR APPRENTICE Office Visit [address] [address] Wade Donovan MD [address] [phone] documented as of this encounter Visit Diagnoses Diagnosis Recurrent UTI Urinary tract infection, site not specified documented in this encounter Additional Health Concerns Infection Onset Date Last Indicated Resolved Time MSSA 08/02/2023 08/02/2023 documented as of this encounter Care Teams Guest Request Runner Relationship Specialty Start Date End Date Wade Donovan MD [address] [phone] PCP - General Family Medicine 02/05/24 documented as of this encounter
--- OUTSIDE RECORDS SUMMARY | 2024-08-19 14:14 | XMS_ITS | Encounter Summary ---
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 Never 11/07/2023 Do you belong [...] Date Recorded PHQ-9 Total Score 2 02/21/2024 [facility] of Occupat ional [facility] - Occupational Stress Questionnaire [...] slept in a retirement (including now)? No 11/07/2023 Sex and Gender Information Value Date Recorded Sex Assigned at Not on file Legal Sex Male 8:31 PM CDT Gender Identity Not on file Sexual Orientation Not on file Occupation Industry Job Start Date Job End Date Disability Not on file Not on file Not on file documented as of this encounter Progress Notes * Wade Donovan MD - 08/06/2024 10:30 AM CST Diagnosis Plan 1. Elevated PSA CBC Branch Off w/Diff PSA 2. Hyperlipidemia LDL goal <100 Lipid panel 3. Recurrent kidney stones Vitamin D, Total 4. Paraplegia (HCC) Vitamin D, Total 5. [facility] current use of anticoagulant Comprehensive metabolic panel [employer] documented in this encounter Plan of Treatment Upcoming Encounters Date Type Department Care Team (Late st Contact Info) Description 08/20/2024 3:00 PM [employer] Office Visit [facility] [address] [place] [address] Yonas Charlton II, MD [address] [place] [address] 08/21/2024 2:00 PM [employer] Office Visit [place] [address] [address] Wade Donovan MD [facility] [address] [place] [address] documented as of this encounter Results * (ABNORMAL) Lipid panel (08/11/2024 9:34 AM [employer]) Cholesterol 125 0 - 199 mg/dL 08/11/2024 2:05 PM [employer] [facility] Comment: Recommended by National Cholesterol Education Program (ATP III) -------- Cholesterol Ranges -------- <200 Desirable 200-239 Borderline high >=240 High Triglycerides 81 0 - 149 mg/dL 08/11/2024 2:05 PM [facility] Comment: -------- TRIG Ranges -------- <150 Normal 150-199 Borderline high 200-499 High >=500 Very high HDL 31(L) 40 - 250 mg/dL 08/11/2024 2:05 PM [employer] [facility] Comment: -------- HDL Ranges -------- <40 Low 40-59 Normal >=60 Optimal LDL Calculated 78 0 - 99 mg/dL 08/11/2024 2:05 PM [facility] Comment: -------- LDL Ranges -------- <100 Optimal 100-129 Near optimal/above optimal 130-159 Borderline high 160-189 High >=190 Very high Fasting? Yes 08/11/2024 9:42 AM [employer] [facility] Blood 08/11/2024 9:34 AM [employer] 08/11/2024 12:52 PM [facility] us Wade Donovan MD LAB BLOOD ORDERABLES Final R esult [facility] [address] [place] [address] * PSA (08/11/2024 9:34 AM [employer]) Total PSA 4.1 0.0 - 5.1 ng/mL 08/11/2024 3:32 PM [facility] Comment: The results from this [...] method is an immunometric assay manufactured by [employer] and performed on the [id number] system. Biotin levels in serum remain elevated [...] testing. Blood (Blood, Venous) 08/11/2024 9:34 AM [employer] 08/11/2024 12:52 PM [employer] us Wdae Donovan MD LAB BLOOD ORDERABLES Final R esult [facility] [address] [place] [phone] * (ABNORMAL) Comprehensive metabolic panel (08/11/2024 9:34 AM [employer]) Total Protein 7.6 6.3 - 8.2 g/dL 08/11/2024 2:05 PM [facility] Albumin, Serum 4.1 3.5 - 5.0 g/dL 08/11/2024 2:05 PM [facility] Total Bilirubin 1.5(H) 0.1 - 1.0 mg/dL 08/11/2024 2:05 PM [facility] AST 22 8 - 48 U/L 08/11/2024 2:05 PM [facility] Alkaline Phosphatase 123 38 - 128 U/L 08/11/2024 2:05 PM [facility] ALT (SGPT) 22 0 - 49 U/L 08/11/2024 2:05 PM [facility] Sodium 140 135 - 145 mEq/L 08/11/2024 2:05 PM [facility] Potassium 3.9 3.5 - 5.1 mEq/L 08/11/2024 2:05 PM [facility] Chloride 107 98 - 107 mEq/L 08/11/2024 2:05 PM [facility] CO2 25 22 - 31 mmol/L 08/11/2024 2:05 PM [facility] BUN 16 5 - 25 mg/dL 08/11/2024 2:05 PM [facility] Creatinine 0.76 0.60 - 1.40 mg/dL 08/11/2024 2:05 PM [facility] Glucose 99 70 - 100 mg/dL 08/11/2024 2:05 PM [facility] Calcium, Total,S 9.2 8.4 - 10.2 mg/dL 08/11/2024 2:05 PM [facility] Anion Gap 8 4 - 13 08/11/2024 2:05 PM [facility] Comment: The anion gap is calculated with the following formula: AGAP = Na (Cl + CO2). Blood 08/11/2024 9:34 AM [employer] 08/11/2024 12:52 PM [employer] us Wade Donovan MD LAB BLOOD ORDERABLES Final R esult [facility] [address] [place] [phone] * (ABNORMAL) CBC Branch Off w/Diff (08/11/2024 9:34 AM [employer]) Pathologist [facility] WBC 6.3 3.5 - 10.5 K/uL 08/11/2024 9:44 AM [facility] [place] RBC 5.94(H) 4.30 - 5.70 M/uL 08/11/2024 9:44 AM [facility] [place] Hemoglobin 16.3 13.5 - 17.5 g/dL 08/11/2024 9:44 AM [employer] [facility] [place] Hematocrit 52.7(H) 38.0 - 50.0 % 08/11/2024 9:44 AM [employer] [facility] [place] Platelets 269 150 - 450 K/uL 08/11/2024 9:44 AM [employer] [facility] [place] MCV 88.7 81.2 - 95.1 fL 08/11/2024 9:44 AM [employer] [facility] [place] MCH 27.4 26.0 - 32.0 pg 08/11/2024 9:44 AM [employer] [facility] [place] MCHC 30.9(L) 32.0 - 36.0 g/dL 08/11/2024 9:44 AM [employer] [facility] [place] RDW 15.6 11.8 - 15.6 % 08/11/2024 9:44 AM [employer] [facility] [place] Lymphocytes % 20.2 % 08/11/2024 9:44 AM [employer] [facility] [place] Mid-size Cells 9.7 % 08/11/2024 9:44 AM [employer] [facility] [place] Granulocytes/Mason trophils 70.1 % 08/11/2024 9:44 AM [employer] [facility] [place] Lymphocytes Absolute 1.3 0.9 - 2.9 K/uL 08/11/2024 9:44 AM [employer] [facility] [place] MIDS Absolute 0.6 0.4 - 1.5 K/uL 08/11/2024 9:44 AM [employer] [facility] [place] Granulocytes/Mason trophils Absolute 4.4 1.7 - 7.0 K/uL 08/11/2024 9:44 AM [facility] [place] Blood 08/11/2024 9:34 AM [employer] 08/11/2024 9:34 AM [employer] us Wade Donovan MD LAB BLOOD ORDERABLES Final R esult [facility] [address] [place] [address] * (ABNORMAL) Vitamin D, Total (08/11/2024 9:34 AM [employer]) Pathologist [facility] Vitamin D, Total 17.7(A) ng/mL 08/11/20 24 2:19 PM [employer] [facility] Comment: Deficient <20 Insufficient 20-<30 Sufficient 30-100 Vitamin D2/D3 fractionation is recommended at the discretion of the clinician if Total Vitamin D is within deficient or insufficient range. 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
--- OUTSIDE RECORDS SUMMARY | 2024-08-19 14:14 | XMS_ITS | Encounter Summary ---
Author Organization [facility] er Address [address] [place] [address] Care Team Providers Care Patent Paralegal Name Role Phone Wade Donovan MD Primary Care Provider [phone] Encounter Details Date Type Department Care Team (Late st Contact Info) Description 09/02/2019 Telephone [place] [address] [place] [phone] Adarsh Carpenter MD [address] [place] [address] Social History Tobacco Use Types Packs/Day Years [...] Family Three times a week 08/11/2019 Attends [employer]ism Services Never 08/11 Active Member of Clubs [...] Answer Date Recorded PHQ-2 Score 9 08/11/2019 [facility] [place] of Occupat ional Health - Occupational Stress [...] st Contact Info) Description 08/20/2024 3:00 PM PAYROLL MASTER Office Visit Ear Nose Throat [address] [place] [address] Yonas Charlton II, MD [address] [place] [phone] 08/21/2024 2:00 PM PAYROLL MASTER Office Visit [place] [address] [place] [address] Wade Donovan MD [address] [place] [phone] documented as of this encounter Visit Diagnoses Not on filedocumented in this encounter Additional Health Concerns Infection Onset Date Last Indicated Resolved Time MSSA 10/04/2018 10/04/2018 06/28/2022 8:27 AM CDT MSSA 06/19/2023 07/04/2023 07/17/2023 2:29 PM CDT MSSA 08/02/2023 08/02/2023 documented as of this encounter Care Teams Patent Paralegal Relationship Specialty Start Date End Date Wade Donovan MD [address] [place] [address] PCP - General Family Medicine 02/05/24 documented as of this encounter
--- OUTSIDE RECORDS SUMMARY | 2024-08-19 14:14 | XMS_ITS | Encounter Summary ---
Author Organization [facility] er Address [address] [place] [address] Care Team Providers Care Medical Device Engineer Name Role Phone Wade Donovan MD Primary Care Provider [phone] Encounter Details Date Type Department Care Team (Late st Contact Info) Description 07/28/2020 Telephone [place] [address] [place] [phone] Adarsh Carpenter MD [address] [place] [address] Social History Tobacco Use Types Packs/Day Years [...] Family Three times a week 08/11/2019 Attends [employer] Services Never 08/11 Active Member of Clubs [...] Date Recorded PHQ-9 Total Score 0 07/23/2020 [facility] [place] of Occupat ional Health - Occupational Stress [...] st Contact Info) Description 08/20/2024 3:00 PM RESPONDER Office Visit Ear Nose Throat [address] [place] [address] Yonas Charlton II, MD [address] [place] [phone] 08/21/2024 2:00 PM RESPONDER Office Visit [address] [address] Wade Donovan MD [address] [place] [phone] documented as of this encounter Visit Diagnoses Not on filedocumented in this encounter Additional Health Concerns Infection Onset Date Last Indicated Resolved Time MSSA 10/04/2018 10/04/2018 06/28/2022 8:27 AM CDT MSSA 06/19/2023 07/04/202307/17/2023 2:2 9 PM CDT MSSA 08/02/2023 08/02/2023 documented as of this encounter Care Teams Medical Device Engineer Relationship Specialty Start Date End Date Wade Donovan MD [address] [place] [address] PCP - General Family Medicine 02/05/24 documented as of this encounter
--- NOTE | 2024-08-19 15:00 | CT_ITS ---
Patient: ISA ERVIN Facility:?[facility] Patient ID:?[id number] Site Patient ID:?[id number]. Site :?[id number] Study:?CT-Facial WITHOUT-08/19/2024 2:47:39 PM Ordering Physician:?Venus Olvera Final Report: Indication: Left facial swelling, history of meningioma resection. Technique: Noncontrast CT of the facial bones with multiplanar reconstruction utilizing bone and soft tissue algorithms. Comparison: Correlated with MR brain dated 10/29/[address] head dated 10/28/2023. Findings: No enlarged fluid collection within the soft tissues of the left face. Partially imaged operative changes of high left frontal craniotomy/cranioplasty. Mild infiltration of the soft tissues overlying the left frontal calvarium and medial to the left orbit (series 3, image 68). No intraorbital soft tissue density. Symmetric globes with normal anterior situation of the lenses. No aggressive osseous lesion. Mild diffuse mucosal thickening within the ethmoid sinuses. Impression: 1. Partially imaged operative changes of high left frontal craniotomy/cranioplasty. 2. Mild infiltration of the soft tissues overlying the left frontal calvarium and at the medial aspect of the left orbit potentially reflecting preseptal cellulitis. 3. No discrete or rim enhancing fluid collection. 4. Mild diffuse mucosal thickening within the ethmoid sinuses. Please note that all CT scans at this facility use dose modulation, iterative reconstruction, and/or weight-based dosing when appropriate to reduce radiation dose to as low as reasonably achievable. Dictated by Peyman Aguilera MD @ 08/20/2024 3:31:09 PM Signed by:?Peyman Aguilera MD @08/20/2024 3:31:09 PM (Electronic Signature)
== END 2024-08-19 14:09 | disposition home or self-care (01) ==
LOC: CT 14:10
PROVIDERS: PCP Family Medicine; Visit Provider Family Medicine
DX: R22.0 Localized swelling, mass and lump, head (principal)
CPT/HCPCS: 70486

== ENCOUNTER 2024-12-13 13:56 | Emergency (ER) | payer MEDICARE, BC, SELFPAY ==
[2024-12-13] VITALS (9 sets, daily range): BP systolic 135–158; BP diastolic 93–110; PULSE 81–91; RESP 18; TEMP 36.1; O2SAT 90–95; BMI 25.1
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
[2024-12-13 14:28] LABS: Basophils Absolute Auto 0.01 K/uL (0.00-0.30); Basophils Percent Auto 0.1 % (0.0-3.0); Eosinophils Absolute Auto 0.06 K/uL (0.00-0.50); Eosinophils Percent Auto 0.7 % (0.0-7.0); Hemoglobin* 16.4 gm/dL (13.5-17.5); Immature Granulocytes Abs Auto 0.08 K/uL (0.00-0.30); Lymphocytes Percent Auto 20.3 % (20-44); Mean Corpuscular HGB Conc 32 gm/dL (32-36); Mean Corpuscular Hemoglobin 29 pg (26-34); Mean Corpuscular Volume 92 fL (80-100); Monocytes Percent Auto 6.6 % (0.0-11.0); Neutrophils Absolute Auto 5.97 K/uL (1.7-7.0); Neutrophils Percent Auto 71.3 % (42.0-72.0); Platelet Count* 262 K/uL (140-440); RDW Coefficient of Variation % 15.3 % (11.5-15.5); Red Blood Count 5.65 m/uL (4.30-5.90); White Blood Count* 8.37 K/uL (4.50-11.00)
[2024-12-13 14:45] LABS: Chloride* 103 mmol/L (96-114); Potassium* 3.9 mmol/L (3.6-5.1); Sodium* 139 mmol/L (135-149)
[2024-12-13 14:48] LABS: Anion Gap 8 mEq/L (7-15); Blood Urea Nitrogen* 12 mg/dL (7-30); Calcium* 8.7 mg/dL (8.4-10.6); Carbon Dioxide* 28 mmol/L (20-32); Creatinine* 0.9 mg/dL (0.5-1.5); Est. Creatinine Clearance* 79.76; Estimated Glomerular Filt Rate 94 ml/min; Glucose* 101 mg/dL (60-115)
[2024-12-13 14:51] LABS: Slide Review Reflex No
[2024-12-13 15:02] LABS: INR 1.57 (0.91-1.10); Prothrombin Time 19.8 Seconds
--- OUTSIDE RECORDS SUMMARY | 2024-12-13 15:44 | XMS_ITS | Data Portability ---
Author Organization [facility], [facility] Address [address] [place] [address] Care Team Providers Care Civil Engineering Design Draftsperson Name Role Phone [facility] Referring Provider Assessment Encounter Date Assessment Date Assessment LastModified by Organization Details LastModified Time 12/11/2023 12/11/2023 63 year old male with history of kidney stones. Stone Analysis: 80% calcium oxalate, 20% calcium phosphate (apatite) Last Stone Event: S/p cystolitholapaxy (two 5 mm stones removed) and right URS with HLL dusting and right ureteral stent placement 10/16/23 Last Imaging: Renal US 11/26/23 negative for hydronephrosis Stone prevention plan: he will increase water intake, add lemon to water, monitor sodium and calcium intake. Discussed metabolic work up (two 24 hour urines and stone blood) to provide more tailored recommendations for stone prevention. Patient prefers to follow dietary/lifestyle recommendations at this time. Patient will contact me if they would like to have metabolic workup performed. He has follow up with Dr. Pate in ~6 months. Not available 12/11/2023 12:55:30 Plan of Treatment Reminders Order Date Submit Date Provider Last Modified By Organization Details Last Modified Time Details Appointments ESTABLISH ED 15 2024 03:10P Meir Pate MD Not available Not available Not available Lab prostate specific Ag, serum or plasma 2023 024 [facility], [address], [address], [place], [address], 04/23/2024 16:45:09 culture, urine 2023 024 [facility], [address], [address], [place], [address], 10/07/2023 11:40:13 Referral None recorded. Procedures None recorded. Surgeries None recorded. Imaging XR, kidney + ureter + bladder - kidney stones, please 1 week prior to next visit with Dr. Pate which should be about 1 year from 04/23/242023 024 [email or web address] [facility], [address] [place], [address], 09/01/2024 10:06:40 US, renal - kidney stones, please do 1 month from 10/24/23, thanks. 2023 024 [email or web address] [facility], [address] [place], [address], 11/07/2023 08:53:47 CT, abdomen + pelvis, w/o contrast - kidney stones, please contact pt to schedule . thanks 2022 023 [facility], [address] [place], [address], 08/22/2023 12:42:58 US, renal - right renal cyst please contact pt to schedule . thanks 2022 023 [facility], [address] [place], [address], 08/21/2023 12:15:37 Medication Orders None recorded. Patient TargetsNo targets recorded. Patient Instructions Encounter Date Encounter Id Patient Instructions Last Modified By Organization Details Last Modified Time 08/15/2023 [id number] ureteroscopy: wh at to expect at home [...] Retention is permanent. Not available 08/15/2023 11:23:22 10/24/2023 [id number] Right kidney stone/bladder stones: Right ureteral stent was removed today. Renal U/S in 1 month. Stone prevention 6 weeks. Should drink enough fluids to keep the urine colorless. Stones = 80% calcium oxalate, 20% calcium phosphate (apatite). Not available 10/24/2023 15:28:27 12/11/2023 [id number] We discussed gen eral fluid and dietary guidelines to help prevent further stone formation includin.) Fluid consumption of preferably water to make at least 2.5 L/day of urine 2.) Low sodium consumption (less than 2,000mg/day). Dietary salt intake is linked to calcium excretion. 3.) Moderate calcium consumption (up to 1,000 to 1,200mg/day). Avoid calcium restriction - this has been shown to increase the risk of stone formation 4.) Low fat and moderate animal protein consumption (less than 1.1 gm/kg/day) 5.) Limit refined sugars (less than 25 gm/day) 6.) 5 servings of fruits and vegetables daily Not available 12/11/2023 12:45:16 04/23/2024 [id number] Kidney stones: Andrew cantrell's doing well. I'll see him back in 6 months with a KUB xray about 1 week prior. Prostate cancer screening: Will get a PSA today. Neurogenic bladder/retention: Continue to pass a catheter 6 times daily. Retention is permanent. Not available 04/23/2024 14:54:19 Reason for Referral None Reported. Results Created Date Observation Date Name Description Value Unit Range Abnormal Flag Note LastModifiedBy Organization Detail LastModifiedTime 10/05/19 24 10/05/2023 URINE CULTU RE final report MICROB IOLOGY RESULT S abnormal SOURC E Kassi amna ed-[facility] t KNOWN ALLER GIES NKDA TREAT MENT none MEDIA PLATE D AT: Media plate d on 024 @ 3:34 PM COLON Y COUNT 50,00 0-100 ,000 cfu/m l RESUL T Enter ococc us faeca lis (Isol ate 1) Sensi tivit y Farrah sis [place] te 1 ----- ----- ----- ----- ----- ----- ----- - AMPIC ILLIN <=2*S CIPRO FLOXA FREYA 2 I GENT. SYNER GY <=500 *S LEVOF LOXAC IN 2*S NITRO FURAN TOIN <=32* S PENIC ILLIN 2*S RIFAM PIN >2 R STREP . SYNER GY <=100 0*S TETRA CYCLI NE <=4*S VANCO MYCIN 1*S Orga nisms that are susce ptibl e to tetra cycli ne are gener ally also susce ptibl e to doxyc yclin e and minoc yclin e. Any subst ituti on of drugs which have not been teste d for sensi tivit y shoul d be consi dered based on appro joseluis usage of the drugs . Infor glenda street on doxyc yclin e and minoc yclin e can be found in the Physi karoline' s Desk Refer ence or from the [facility]. S= Susce ptibl e;I= Inter media te;R= Resis tant; ESBL= Resis tance due to confi rmed ESBL This lab resul t is being provi ded to you and your provi ruben at the same time in [facility] with the Centu ry Cures Act. Your provi ruben may not have had time to revie w and make recom menda tions based on the resul t. Pleas e allow up to one week for provi ruben revie w. Not Available [facility] [address], [place], [address], 10/07/2023 11:40:12 04/23/20 24 04/23/2024 PSA, TOTAL , SCREE N PSA, total 1.95 NG/mL 0.00-4 .00 This lab resul t is being provi ded to you and your provi ruben at the same time in [facility] with the Centu ry Cures Act. Your provi ruben may not have had time to revie w and make recom menda tions based on the resul t. Pleas e allow up to one week for provi ruben revie w. Not Available [facility] [address], [place], [address], 04/23/2024 16:45:09 08/21/20 23 08/21/2023 US, renal No observ ation record ed. [facility] [address] [place], [address], 08/22/2023 09:39:35 08/22/20 23 08/21/2023 CT, abdom en + pelvi s, w/o contr ast No observ ation record ed. [facility] [address] [place], [address], 08/27/2023 12:46:25 10/16/19 24 10/16/2023 XR, pyelo gram No observ ation record ed. [facility] [address], [place], [address], 10/16/2023 15:04:11 11/27/19 24 11/26/2023 US, renal No observ ation record ed. [facility] [address], [place], [address], 11/28/2023 10:07:11 Result Notes None recorded. Problems Name Problem SNOMED Code Status Onset Date Resolution Date Notes Provider Name and Address Organization Details Recorded Time Cyst of kidney 075358815 Active 2022 Osito Pate MD [address] [place] [address],[address], [place], [address], [facility] 3 11:17:54 Calculus of kidney and ureter 359796088 Active 2022 Osito Pate MD [address] [place] [address],[address], [place], [address], [facility] 3 11:17:55 Urinary bladder stone 43512070 Active 2022 Osito Pate MD [address] [place] [address],[address], [place], [address], [facility] 3 11:19:12 Neurogenic urinary bladder 059385078 Active 2022 Osito Pate MD [address] [place] [address],[address], [place], [address], [facility] 3 11:19:28 Retention of urine 709005581 Active 2022 Osito Pate MD [address] [place] [address],[address], [place], [address], [facility] 3 11:19:33 Kidney stone 99967966 Active 2023 Osito Pate MD [address] [place] [address],[address], [place], [address], [facility] 4 11:00:19 Hyperlipidemia 07118895 Active 2024 Osiel saldivar [facility] 5 16:23:39 Pulmonary embolism 49394776 Active 2024 Osiel Schmidt null, [facility] 5 16:23:52 Depressive disorder 13290520 Active 2024 Osiel Schmidt null, [facility] 5 16:24:00 Multiple sclerosis 09718750 Active 2024 Osiel Schmidt null, [facility] 5 16:24:11 Problem Notes None recorded. Procedures Surgical History Date Name Laterality Status Provider Name and Address Organization Details Recorded Time 4 Blood Draw/HEEL BUILDER MACHINE/PSA RESULTS completed Marley Turner [facility] 04/23/2024 14:59:11 4 Cystoscopy with foreign body/stent removal completed Osito Pate MD [address], [place], [address], [facility] 10/23/2023 10:59:43 4 Urine Culture completed Jonna Nava [facility] 10/05/2023 16:23:47 7 Colonoscopy completed Osiel Guallpa [facility] 11/14/2024 16:24:44 Imaging Results Imaging Date Name Status LastModified by Organiz ation Details LastModified Time 08/21/2023 US, renal completed [facility] [address], [place], [address], 08/22/2023 09:39:35 08/21/2023 CT, abdomen + pelvis, w/o contrast completed [facility] [address], [place], [address], 08/27/2023 12:46:25 10/16/2023 XR, pyelogram completed [address], [place], [address], 10/16/2023 15:04:11 11/26/2023 US, renal completed [facility] [address] [place], [address], 11/28/2023 10:07:11 Procedure Notes None recorded. Medical Equipment None Reported. Allergies Allergen ID Allergen Name Allergen Category Reaction Reaction Severity Criticality Documentation Date Start Date Code Code System Note Provider Name and Address Organization Details Recorded Time 360886 Product containin g penicilli n (product) medicatio n Not available Not available unabletoasse ss 10/08/2023 43297 8001 SNOMED sympt oms or sever ity unkno wn. Updat ed per call with [facility]. This aller gy was on file with them since 2014. Not Available Not Available Not Available 046664 honey bee venom environme nt angioedem a Not available high 11/14/20242017 28440 7 RxNorm Not Available Not Available Not Available Medications Name Sig Start Date Stop Date Status Note LastModified by Organization Details LastModified Time Keppra 500 mg tablet 500mg 2/day active Not Available Not Available No t Available warfarin 10 mg tablet Take 1 tablet every day by oral route. active Not Available Not Available No t Available doxycyclin e monohydrat e 100 mg tablet Take 1 tablet twice a day by oral route for 10 days. 04/23 completed HN: Patient reports no longer taking Not Available Not Available Not Available amoxicilli n 500 mg tablet Take 1 tablet twice a day by oral route for 10 days. 10/08 completed Not Available Not Available Not Available baclofen 10 mg tablet 10mg 3/day active Not Available Not Available No t Available atorvastat in active Not Available Not Available Not Available oxybutynin active Not Available Not Av ailable Not Available Vitals Date Recorded Body height Body mass index (BMI) Body weight Provider Name and Address Organization Details Last Updated DateTime 08/15/2023 182.88 cm 25.8 kg/m2 49959.55 g Laura Santos [facility] 08/15/2023 11:01:26 Date Recorded Body height Body mass index (BMI) Body weight Provider Name and Address Organization Details Last Updated DateTime 10/24/2023 182.88 cm 24.4 kg/m2 81389.63 g Gema Roach [facility] 10/24/2023 15:00:20 Date Recorded Body height Provider Name an d Address Organization Details Last Updated DateTime 12/11/2023 182.88 cm Spring Allen [facility] 12/11/2023 10:25:02 Date Recorded Body height Provider Name an d Address Organization Details Last Updated DateTime 04/23/2024 182.88 cm Laura Santos [facility] 04/23/2024 14:43:14 Social History Question Answer Notes LastModified by Organizat ion Details LastModified Time Tobacco Smoking Status Former Smoker Not Available Health Note 12/11/2023 12:39:03 What Is Your Level Of Alcohol Consumption? NONE [email or web address] Information not available 12/11/2023 What Is Your Level Of Caffeine Consumption? None [email or web address] Information not available 12/11/2023 How Much Tobacco Do You Chew? None [email or web address] Information not available 12/11/2023 Do You Or Have You Ever Used E-cigarettes Or Vape? Never Used Electronic Cigarettes [email or web address] Information not available 12/11/2023 When Did You Quit Smoking? 16+ Years Since Last Cigarette [email or web address] Information not available 12/11/2023 Race White Information n ot available 03/11/2020 Marital Status Informati on not available 03/11/2020 What Was The Date Of Your Most Recent Tobacco Screening? 12/11/2023 [email or web address] Information not available 12/11/2023 What Is Your Relationship Status? [email or web address] Information not available 12/11/2023 Are You Sexually Active? No [email or web address] Information not available 12/11/2023 Do You Or Have You Ever Used Smokeless Tobacco? Never Used Smokeless Tobacco [email or web address] Information not available 12/11/2023 Do You Use Any Illicit Or Recreational Drugs? No [email or web address] Information not available 12/11/2023 Has Tobacco Cessation Counseling Been Provided? No Information not available 08/15/2023 How Many Years Have You Smoked Tobacco? 20 [email or web address] Information not available 12/11/2023 Do You Or Have You Ever Used Any Other Forms Of Tobacco Or Nicotine? No [email or web address] Information not available 08/15/2023 How Many Days In The Past Year Have You Consumed 5 Or More Drinks? 0 [email or web address] Information no t available 12/11/2023 Sex: Unknown Functional Status None recorded. Mental Status None recorded. Family History Nothing Reported Notes:Heart disease:Father Medical History Condition Response Sexually Transmitted Infection N Diabetes N Bleeding Disorder N Other N High Blood Pressure Y Kidney Stones Y Cancer N Lung Disease N Depression N High Cholesterol N GERD/Acid Reflux N Heart Disease N Past Encounters Encounter ID Performer Location Encounter Start Date Encounter Closed Date Diagnosis/Indication Diagnosis SNOMED-CT Code Diagnosis ICD10 Code Diagnosis Note [id number] MD [employer] [address] [place] [phone] 08/15/2023 10:49:45 08/15/2023 11:27:52 Calculus of kidney and ureter 294771691 N20.2 Cyst of kidney 278718681 N28.1 Urinary bladder stone 70 027894 N21.0 Neurogenic urinary bladder 572083961 N31.9 Retention of urine 54330 4002 R33.9 [id number] [facility] [employer] [address] [place] [address] 10/05/2023 15:55:15 10/05/2023 16:25:42 Slowing of urinary stream 35066146 R39.12 [id number] Osito [facility]ate [facility] [employer] [address] [place] [address] 10/24/2023 14:54:34 10/24/2023 15:30:45 Kidney stone 09372915 N20.0 Urinary bladder stone 70 643917 N21.0 Foreign liv dy in ureter 141332977 T19.8XXD [id number] Neli Shoemaker PA-C [employer] [address] [place] [phone] 12/11/2023 10:22:56 12/11/2023 13:29:02 History of calculus of kidney 129160608 Z87.442 [id number] Marley Schulz joann [employer] [address] [place] [address] 04/23/2024 14:36:57 04/23/2024 15:06:28 History of urinary stone 942465838 Z87.442 Neurogenic urinary bladder 221519429 N31.9 Retention of urine 01305 4002 R33.9 Screening for malignant neoplasm of prostate 171389800 Z12.5 Health Concerns Section Related Observation LastModified by Organization Detai ls LastModified Time None Recorded Concern Status LastModified by Organization Details LastModified Time None Recorded Advance Directives Directive None Recorded Payers Encounter Date Sequence Insurance Name Policy Number Policy Fiore Covered Member ID Fiore Member ID Guarantor Name 08/15/2023 2 [place] [id number] Dhruv A Gappa [id number] Dwain A Gappa 08/15/2023 1 [place] [facility] Dwain A Gappa [id number] Dwain A Gappa 10/05/2023 2 [place] [id number] Dhruv A Gappa [id number] Dwain A Gappa 10/05/2023 1 [place] [facility] [employer] [facility] Dwain A Gappa [id number] Dwain A Gappa 10/24/2023 2 [place] [id number] Dhruv A Gappa [id number] Dwain A Gappa 10/24/2023 1 [place] [facility] Dwain A Gappa [id number] Dwain A Gappa 12/11/2023 2 [place] [id number] Dhruv A Gappa [id number] Dwain A Gappa 12/11/2023 1 [place] [facility] [employer] [facility] Dwain A Gappa [id number] 6 Dwain A Gappa 04/23/2024 2 [place] [id number] Dhruv A Gappa [id number] Dwain A Gappa 04/23/2024 1 [place] [facility] [employer] [facility] Dwain A Gappa [id number] 6 Dwain A Gappa Notes Date Note Type Note Provider Name and Address Organization Details Recorded Time 08/15/2023 text/html 08/15/23: Multip le sclerosis, NGB (does straight catheterization), kidney/bladder stones (history of struvite and calcium oxalate), HLD, PE. On warfarin. S/p bladder stone removal and right URS with Dr. Piedra on 08/01/19. On warfarin. PSA 11/03/21 = 1.9 ng/mL. Was at [facility] 10/15/22 to 10/17/[address] stone study 10/15/22 ([place]) =IMPRESSION:1. A 3 mm obstructing calculus in the left distal ureter, just above the ureterovesicular junction, with moderate left hydroureteronephrosis. 2. An 8 mm nonobstructing right intrarenal calculus. Few calcifications in/along the urinary bladder, favored to be within the lumen of the decompressed bladder.3. A 30 mm indeterminate lesion in the right kidney is probably a simple cyst although evaluation is limited by streak artifact on CT. Nonemergent renal ultrasound can be considered to confirm its cystic nature.Cr 10/16/22 = 0.79 (GFR >60). Patient was supposed to follow shortly after discharge to discuss stone management.Here with his , Nelia. He's in a [...] can be passed. Osito Pate MD [address], [place], [address], [facility] 08/15/2023 11:24:00 10/24/2023 text/html 08/15/23: Multip le sclerosis, NGB (does straight catheterization), kidney/bladder stones (history of struvite and calcium oxalate), HLD, PE. On warfarin. S/p bladder stone removal and right URS with Dr. Piedra on 11/1/19. On warfarin. PSA 11/03/21 = 1.9 ng/mL. Was at [facility] 10/15/22 to 10/17/[address] stone study 10/15/22 ([place]) =IMPRESSION:1. A 3 mm obstructing calculus in the left distal ureter, just above the ureterovesicular junction, with moderate left hydroureteronephrosis. 2. An 8 mm nonobstructing right intrarenal calculus. Few calcifications in/along the urinary bladder, favored to be within the lumen of the decompressed bladder.3. A 30 mm indeterminate lesion in the right kidney is probably a simple cyst although evaluation is limited by streak artifact on CT. Nonemergent renal ultrasound can be considered to confirm its cystic nature.Cr 10/16/22 = 0.79 (GFR >60). Patient was supposed to follow shortly after discharge to discuss stone management.Here with his , Nelia. He's in a [...] can be passed. 10/24/23: Renal U/S 08/21/23 ([place]) = simple right renal cysts without masses, 1.[address] stone study 08/21/23 ([place]) = 1.6 cm right renal pelvis stone, [...] = 80% calcium oxalate, 20% calcium phosphate (apatite).Here for stent removal. Here with his . He's doing well and not having any pain. Osito Pate MD [address] [facility], [place], [address], [facility] 10/24/2023 15:29:52 12/11/2023 text/html 63 year old male with history of kidney stones, here for follow up. Stone Analysis: 80% calcium oxalate, 20% calcium phosphate (apatite)Last Stone Event: S/p cystolitholapaxy (two 5 mm stones removed) and right URS with HLL dusting and right ureteral stent placement 10/16/23Last Imaging: Renal US 11/26/23 negative for hydronephrosis Other stone history:S/p bladder stone removal and right URS with Dr. Piedra on 08/01/19. Calcium or vitamin D supplements: noneGI surgeries: no He reports having a UTI after the surgery. However, has been feeling well recently. Time: 15 min Prior to conducting our video visit, the patient was apprised of the risks, benefits and alternatives to video visits including but not limited to poor video quality, interrupted visits due to technological limitations, delays in medical evaluation and treatment due to deficiencies or failures of equipment, failure of security protocols resulting in a breach of privacy of personal medical information and a lack of access to complete medical records resulting in not fully informed decisions. It was not possible for the patient to sign the privacy regulations, HIPAA release and assignment of benefits forms. The patient was given the opportunity to ask questions about these policies and gave verbal acknowledgement and approval of these policies as well as to hold this meeting by video. Lastly, the patient agreed to allowing their medication history to be pulled from a national pharmacy database to facilitate and coordinate their care. Neli Shoemaker PA-C [address] [place] [address],[address], [place], [address], [facility] 12/11/2023 12:55:46 04/23/2024 text/html 08/15/23: Multip le sclerosis, NGB (does straight catheterization), kidney/bladder stones (history of struvite and calcium oxalate), HLD, PE. On warfarin. S/p bladder stone removal and right URS with Dr. Piedra on 08/01/19. On warfarin. PSA 11/03/21 = 1.9 ng/mL. Was at [facility] 10/15/22 to 10/17/[address] stone study 10/15/22 ([place]) =IMPRESSION:1. A 3 mm obstructing calculus in the left distal ureter, just above the ureterovesicular junction, with moderate left hydroureteronephrosis. 2. An 8 mm nonobstructing right intrarenal calculus. Few calcifications in/along the urinary bladder, favored to be within the lumen of the decompressed bladder.3. A 30 mm indeterminate lesion in the right kidney is probably a simple cyst although evaluation is limited by streak artifact on CT. Nonemergent renal ultrasound can be considered to confirm its cystic nature.Cr 10/16/22 = 0.79 (GFR >60). Patient was supposed to follow shortly after discharge to discuss stone management.Here with his , Nelia. He's in a [...] can be passed. 10/24/23: Renal U/S 08/21/23 ([place]) = simple right renal cysts without masses, 1.[address] stone study 08/21/23 ([place]) = 1.6 cm right renal pelvis stone, [...] = 80% calcium oxalate, 20% calcium phosphate (apatite).Here for stent removal. Here with his . He's doing well and not having any pain. 04/23/24: Right ureteral stent removed on 10/24/23. Renal U/S 11/26/23 ([place]) = no hydronephrosis. Saw stone prevention clinic on 12/11/23 and patient declined further work up.Here for follow up. His is with him today. He is taking 1/2 tablet of Bactrim on Sunday/Sun/Sunday and it's helped with keeping UTIs at bay. Urine is more clear. He is continuing to do self catheterization about 4 times a day. Catheter is passing ok. He's not sure if he's had a PSA since 11/2021. Marley Turner [place], [place] - [facility] 04/23/2024 14:59:36
--- OUTSIDE RECORDS SUMMARY | 2024-12-13 15:44 | XMS_ITS | Encounter Summary ---
Author Organization [facility] er Address [address] [place] [address] Care Team Providers Care Gum Worker Name Role Phone Wade Donovan MD Primary Care Provider [phone] Encounter Details Date Type Department Care Team (Late st Contact Info) Description 01/25/2024 Telephone [place] [address] [place] [address] Hali Soriano, CREATIVE ART DIRECTOR [address] [place] [address] [phone] Social History Tobacco Use Types Packs/Day Years [...] How often do you attend uatsdin or moravian serv ices? Never 11/07/2023 Do you belong [...] Date Recorded PHQ-9 Total Score 1 11/07/2023 [facility] of Occupat ional [facility] - Occupational Stress Questionnaire Answer [...] Care Team (Late st Contact Info) Description 12/23/2024 11:30 AM CDT Appointment [facility] MRI [address] [place] [address] 12/30/2024 2:00 PM CDT Office Visit [facility] Urology [address] [place] [address] Bryce Jack MD [address] [place] [address] 02/03/2025 11:00 AM CDT Office Visit [facility] [address] [place] [address] Selena Iraheta MD [address] [place] [phone] 03/23/2025 1:00 PM CDT Office Visit [facility] Neu[facility] [address] [place] [address] Maria Fernanda Campoverde MD [address] [place] [phone] documented as of this encounter Visit Diagnoses Not on filedocumented in this encounter Additional Health Concerns Infection Onset Date Last Indicated Resolved Time MSSA 08/02/2023 08/02/2023 documented as of this encounter Care Teams Gum Worker Relationship Specialty Start Date End Date Wade Donovan MD 1705 [facility] 20 [place] [address] PCP - General Family Medicine 02/05/24 documented as of this encounter
--- OUTSIDE RECORDS SUMMARY | 2024-12-13 15:44 | XMS_ITS | Encounter Summary ---
Author Organization [facility] er Address [address] [place] [address] Care Team Providers Care Egg Candler Name Role Phone Wade Donovan MD Primary Care Provider [phone] Encounter Details Date Type Department Care Team (Latest Contact Info) Description 11/18/2024 Anticoagulation - Warfarin Visit [facility]/Internal Medicine - Third Floor [address] [place] [address] Iliana Doyle, RN 210 [place] [address] watermaster current use of anticoagulant (Primary Dx); Other [...] week 11/07/2023 How often do you attend hoahaoism or scientology serv ices? Never 11/07/2023 Do you belong to any clubs o r organizations such as hoahaoism groups, unions, fraternal [...] Date Recorded PHQ-9 Total Score 2 08/13/2024 [facility] of Occupat ional Health - Occupational [...] Progress Notes * Iliana Doyle, RN - 11/18/2024 2:53 PM CST Anticoagulation Clinic INR RESULTS: INR (no units) Date Value 11/17/2024 2.80 (A) DOSE PLAN: 4 mg every Mon, Fri; 2 mg all other days DOSE CHANGE: No change NEXT INR: 12/01/24 INR results not reviewed with patient. INR is within patient's goal range and dosing instructions have not been changed. Patient is a home liz, checks every 2 weeks. D TECHNICIAN documented in this encounter Plan of Treatment Upcoming Encounters Date Type Department Care Team (Late st Contact Info) Description 12/23/2024 11:30 AM CDT Appointment [address] [phone] 12/30/2024 2:00 PM CDT Office Visit [facility] Urology [address] [place] [address] Bryce Jack MD [address] [place], [place] [address] 02/03/2025 11:00 AM CDT Office Visit [facility] [address] [place] [address] [phone] Selena Iraheta MD 210 [place] [phone] 03/23/2025 1:00 PM CDT Office Visit [facility] Neurology [address] [place] [address] [phone] Maria Fernanda Campoverde MD 210 [place] [address] documented as of this encounter Procedures Procedure Name Priority Date/Time Associated Diagnosis Comments PROTIME-INR Routine 11/17/2024 documented in this encounter Results * (ABNORMAL) Protime-INR (11/17/2024) INR 2.80(A) 0.90 - 1.10 HOME HEA LT POINT [...] documented as of this encounter Care Teams Egg Candler Relationship Specialty Start Date End Date Wade Donovan MD 1705 [facility] 20 [place] [address] PCP - General Family Medicine 02/05/24 documented as of this encounter
--- OUTSIDE RECORDS SUMMARY | 2024-12-13 15:44 | XMS_ITS | Encounter Summary ---
Author Organization [facility] er Address [address] [place] [address] Care Team Providers Care Weld Inspector Name Role Phone Wade Donovan MD Primary Care Provider [phone] Reason for Visit * Reason Onset Date Comments UTI 11/14/2024 Encounter Details Date Type Department Care Team (Late st Contact Info) Description 11/14/2024 Telephone [place] [address] [address] Wade Donovan MD 1705 [facility] 20 [place] [address] UTI Social History Tobacco Use Types Packs/Day [...] week 11/07/2023 How often do you attend episcopal or hindu serv ices? Never 11/07/2023 Do you belong [...] Score 2 08/13/2024 [facility] - Occupational Stress Questionnaire Answer [...] in a skilled nursing (including now)? No 11/07/2023 Sex and Gender [...] Telephone Encounter - Sofia Denson RN - 11/17/2024 2:43 PM CST Patient's 's informed, she stated he is feeling better. NE REPAIR SUPERVISOR * Telephone Encounter - Wade Donovan MD - 11/17/2024 11:43 AM ENGINE REPAIR SUPERVISOR He has history of paraplegia, chronic retention and catheter use, Urosepsis and antibiotic resistance. Recommend urgent care/ ER visit for concerns regarding acute UTI. NE REPAIR SUPERVISOR * Telephone Encounter - Lakisha Rucker RN - 11/14/2024 10:29 AM ENGINE REPAIR SUPERVISOR Talked with Nelia - She has been monitoring his urine very closely and states that it has been going back and forth between cloudy and clear. They are currently in the [place] and family has stated that they think Dhruv is acting off. With his history of recurrent UTI's, she was hoping to get him on anantibiotic. Talked with providers in clinic and both have not seen Dhruv in office. Explained to Nelia that an office visit is required so a urine sample can be taken. Nelia then asked for message to be forwarded on to both Dr. Donovan and Adi Vazquez. RN informed Nelia that both Dr. Donovan and Adi are offon Sunday's, but I would send the message anyway. RN encouraged Nelia to bring Dhruv to an urgent care of same day clinic. Nelia verbalized that if the patient get's worse, she will take him in. NE REPAIR SUPERVISOR NE REPAIR SUPERVISOR * Telephone Encounter - Isabel Zhang RN - 11/14/2024 8:57 AM CST Patient is prone to UTIs per report and he is acting a little off. No fever or dehydration suspected. Wondering if Dr Donovan would be willing to send an antibiotic for the patient to take prior to the weekend? They are in the [facility] at this time and would like a prescription sent [facility] Donovan is not in office today. Would telehealth be appropriate for the patient as he is out of town? NE REPAIR SUPERVISOR documented in this encounter Plan of Treatment Upcoming Encounters Date Type Department Care Team (Late st Contact Info) Description 12/23/2024 11:30 AM CDT Appointment [facility] MRI [address] [place] [address] 12/30/2024 2:00 PM CDT Office Visit [facility] Urology [address] [place] [address] [place] [address] [place] [address] 02/03/2025 11:00 AM CDT Office Visit [facility] [address] [place] [address] Selena Iraheta MD 210 [place] [phone] 03/23/2025 1:00 PM CDT Office Visit [facility] Neurology 210 [address], [place] [phone] Maria Fernanda Campoverde MD 210 [place] [address] documented as of this encounter Visit Diagnoses Not on filedocumented in this encounter Additional Health Concerns Infection Onset Date Last Indicated Resolved Time MSSA 08/02/2023 08/02/2023 documented as of this encounter Care Teams Weld Inspector Relationship Specialty Start Date End Date Wade Donovan MD [address] [place] [address] PCP - General Family Medicine 02/05/24 documented as of this encounter
--- OUTSIDE RECORDS SUMMARY | 2024-12-13 15:44 | XMS_ITS | Encounter Summary ---
Author Organization [facility] er Address [address] [place] [address] Care Team Providers Care Block Captain Name Role Phone Wade Donovan MD Primary Care Provider [phone] Encounter Details Date Type Department Care Team (Latest Contact Info) Description 11/03/2024 Anticoagulation - Warfarin Visit SE [facility]/Internal Medicine - Third Floor [address] [place] [address] SeeDolores RN 210 [place] [address] nursing home current use of anticoagulant (Primary Dx); [...] week 11/07/2023 How often do you attend anglican or gnosticist serv ices? Never 11/07/2023 Do you belong [...] Date Recorded PHQ-9 Total Score 2 08/13/2024 [facility] of Occupat ional [...] Progress Notes * Dolores Cleary RN - 11/03/2024 11:36 AM CST Anticoagulation Clinic INR RESULTS: INR (no units) Date Value 11/03/2024 2.20 (A) DOSE PLAN: 4 mg Mon, Fri; 3 mg all other days DOSE CHANGE: No change NEXT INR: 11/17/2024 INR results reviewed with the patient's , Nelia. [facility] called to change dosing from 4 mg Wed, Fri to 4 mg Mon, Fri. Nelia verbalized understanding of anticoagulation dose plan and date of next INR. OGEN POWER PLANT MANAGER documented in this encounter Plan of Treatment Upcoming Encounters Date Type Department Care Team (Late st Contact Info) Description 12/23/2024 11:30 AM CDT Appointment [facility] [address] [place] [address] 12/30/2024 2:00 PM CDT Office Visit [facility] Urology [address] [place] [address] Bryce Jack MD [address] [place] [address] 02/03/2025 11:00 AM CDT Office Visit [facility] [address] [place] [address] 919154 Selena Iraheta MD 210 [place] [address] 03/23/2025 1:00 PM CDT Office Visit [facility] Neurology [address], [place] [address] Maria Fernanda Campoverde MD 210 [place] [address] documented as of this encounter Procedures Procedure Name Priority Date/Time Associated Diagnosis Comments PROTIME-INR Routine 11/03/2024 documented in this encounter Results * (ABNORMAL) Protime-INR (11/03/2024) INR 2.20(A) 0.90 - 1.10 HOME HEA LT POINT OF CARE TESTING Protime HOME HEALT H POINT OF CARE TESTING Blood (Blood, Venous) us Historical Provider LAB BLOOD ORDERABLES Mini l Result [facility] POINT OF CARE TESTING documented in this encounter Visit Diagnoses Diagnosis nursing home current use of anticoagulant- Primary Other pulmonary embolism without acute cor pulmonale, unspecified chronicity (HCC) documented in this encounter Additional Health Concerns Infection Onset Date Last Indicated Resolved Time MSSA 08/02/2023 08/02/2023 documented as of this encounter Care Teams Block Captain Relationship Specialty Start Date End Date Wade Donovan MD [address] [place] [address] PCP - General Family Medicine 02/05/24 documented as of this encounter
--- OUTSIDE RECORDS SUMMARY | 2024-12-13 15:44 | XMS_ITS | Encounter Summary ---
Author Organization [facility] er Address [address] [place] [address] Care Team Providers Care Rand Tacker Name Role Phone Wade Donovan MD Primary Care Provider [phone] Encounter Details Date Type Department Care Team (Latest Contact Info) Description 12/01/2024 Anticoagulation - Warfarin Visit [facility]/Internal Medicine - Third Floor [address] [place] [address] SeeDolores RN 210 [place] [address] care home current use of anticoagulant (Primary Dx); Other pulmonary embolism without acute cor pulmonale, unspecified chronicity (HCC) Social History Tobacco Use Types Packs/Day Years Used Date Smoking Tobacco: Never Smokeless Tobacco: Former Alcohol Use Standard Drinks/Week Comments No 0 (1 standard drink = 0.6 oz pur e alcohol) B1300 Health Literacy Answer Date Recor ded How often do you need to hav e someone help you when you read instructions, pamphlets, or other written material from your doctor or pharmacy? Always 11/25/2024 [facility] Utilities Answer Date Recorded In the past 12 months has th e electric, gas, oil, or water company threatened to shut off services in your home? No 11/25/2024 Humiliation, Afraid, Rape, and Kick questionnair e Answer Date Recorded Within the last year, have y ou been afraid of your partner or ex-partner? No 11/25/2024 Within the last year, have y ou been humiliated or emotionally abused in other ways by your partner or ex-partner? No Within the last year, have y ou been kicked, hit, slapped, or otherwise physically hurt by your partner or ex-partner? No 11/25/2024 Within the last year, have y ou been raped or forced to have any kind of sexual activity by your partner or ex-partner? No 11/25/2024 Social Connection and Isolation Panel [NHANES] A nswer Date Recorded In a typical week, how many times do you talk on the phone with family, friends, or neighbors? Once a week 11/25/19 How often do you get togethe r with friends or relatives? Once a week 11/25/2024 How often do you attend chur ch or church services? 1 to 4 times per year 11/25/2024 Do you belong to any clubs o r organizations such as gnosticism groups, unions, fraternal or athletic groups, or school groups? No 11/25/2024 How often do you attend meet ings of the clubs or organizations you belong to? Never 11/25/2024 Are you , , di vorced, , never , or living with a partner? 11/25/2024 AUDIT-C Answer Date Recorded Q1: How often do you have a drink containing alcohol? Never 11/25/2024 Q2: How many drinks containi ng alcohol do you have on a typical day when you are drinking? Patient does not drink Q3: How often do you have si x or more drinks on one occasion? Never 11/25/2024 Overall Financial Resource Strain (CARDIA) Answe r Date Recorded How hard is it for you to pa y for the very basics like food, housing, medical care, and heating? Somewhat hard 11/25/2024 PHQ-2 Answer Date Recorded PHQ-9 Total Score 2 11/25/2024 [facility] of Occupat ional Health - Occupational Stress Questionnaire Answer Date Recorded Do you feel stress - tense, restless, nervous, or anxious, or unable to sleep at night because your mind is troubled all the time - these days? To some extent 11/25/2024 Exercise Vital Sign Answer Date Recorde d On average, how many days pe r week do you engage in moderate to strenuous exercise (like a brisk walk)? 0 days 11/25/2024 On average, how many minutes do you engage in exercise at this level? 0 min 11/25/2024 Hunger Vital Sign Answer Date Recorded Within the past 12 months, y ou worried that your food would run out before you got the money to buy more. Never true 11/25/19 Within the past 12 months, t he food you bought just didn't last and you didn't have money to get more. Never true 11/25/2024 PRAPARE - Transportation Answer Date Re corded In the past 12 months, has l ack of transportation kept you from medical appointments or from getting medications? No 11/02 In the past 12 months, has l ack of transportation kept you from meetings, work, or from getting things needed for daily living? No 11/25/2024 Housing Stability Vital Sign Answer Jose e [...] slept in a mcfp (including now)? No 11/07/2023 Housing Stability Vital Sign Answer Jose e Recorded In the last 12 months, was t here a time when you were not able to pay the mortgage or rent on time? No 11/25/2024 In the past 12 months, how m any times have you moved where you were living? 0 11/25/2024 At any time in the past 12 m [facility], were you homeless or living in a mcfp (including now)? No 11/25/2024 Interpersonal Safety Questionnaire Answer Date Recorded How often does anyone, [place] family and friends, physically hurt you? Never 11/25/2024 How often does anyone, [place] family and friends, insult or talk down to you? Never 11/25/2024 How often does anyone, [place] family and friends, threaten you with harm? Never 11/25/2024 How often does anyone, inclu ding family and friends, threaten you with harm? Never 11/25/2024 Sex and Gender Information Value Date Recorded Sex Assigned at Not on file Legal Sex Male 8:31 PM CDT Gender Identity Not on file Sexual Orientation Not on file Occupation Industry Job Start Date Job End Date Disability Not on file Not on file Not on file documented as of this encounter Progress Notes * Dolores Cleary RN - 12/01/2024 2:29 PM CST Anticoagulation Clinic INR RESULTS: INR (no units) Date Value 12/01/2024 2.00 (A) DOSE PLAN: 4 mg Mon, Fri; 2 mg all other days DOSE CHANGE: No change NEXT INR: 12/15/2024 INR results not reviewed with patient. INR is within patient's goal range and dosing instructions have not been changed. DEVELOPER documented in this encounter Plan of Treatment Upcoming Encounters Date Type Department Care Team (Late st Contact Info) Description 12/23/2024 11:30 AM CDT Appointment [facility] MRI [address] [place] [address] 12/30/2024 2:00 PM CDT Office Visit [facility] Urology [address] [place] [address] Bryce Jack MD [address] [place] [address] 02/03/2025 11:00 AM CDT Office Visit [facility] [address] [place] [address] Selena Iraheta MD [address] [place] [address] 03/23/2025 1:00 PM CDT Office Visit [facility] Neu[facility] [address] [place] [address] Maria Fernanda Campoverde MD 210 [place] [address] documented as of this encounter Procedures Procedure Name Priority Date/Time Associated Diagnosis Comments PROTIME-INR Routine 12/01/2024 documented in this encounter Results * (ABNORMAL) Protime-INR (12/01/2024) INR 2.00(A) 0.90 - 1.10 [facility] POINT OF CARE TESTING Protime HOME HEALT H POINT OF CARE TESTING Blood (Blood, Venous) us Historical Provider LAB BLOOD ORDERABLES Mini nam Result [facility] POINT OF CARE TESTING documented in this encounter Visit Diagnoses Diagnosis care home current use of anticoagulant- Primary Other pulmonary embolism without acute cor pulmonale, unspecified chronicity (HCC) documented in this encounter Additional Health Concerns Infection Onset Date Last Indicated Resolved Time MSSA 08/02/2023 08/02/2023 documented as of this encounter Care Teams Rand Tacker Relationship Specialty Start Date End Date Wade Donovan MD [address] [place] [address] PCP - General Family Medicine 02/05/24 documented as of this encounter
--- OUTSIDE RECORDS SUMMARY | 2024-12-13 15:44 | XMS_ITS | Encounter Summary ---
Author Organization [facility] er Address [address] [place] [address] Care Team Providers Care Building Serviceman Name Role Phone Wade Donovan MD Primary Care Provider [phone] Reason for Visit * Reason Onset Date Comments Med Refill 08/05/2018 Encounter Details Date Type Department Care Team (Late Contact Info) Description 08/05/2018 Refill [place] [address] [place] [address] Adarsh Carpenter MD Social History Tobacco Use Types Packs/Day Years [...] Department Care Team (Late Contact Info) Description 12/23/2024 11:30 AM CDT Appointment [facility] MRI [address] [place] [address] 12/30/2024 2:00 PM CDT Office Visit [facility] Urology [address] [place] [address] Bryce Jack MD [address] [place] [address] 02/03/2025 11:00 AM CDT Office Visit [facility] [address] [place] [address] [phone] Selena Iraheta MD 210 [place] [phone] 03/23/2025 1:00 PM CDT Office Visit [facility] [address] [place] [address] Maria Fernanda Campoverde MD 210 [place] [phone] documented as of this encounter Visit Diagnoses Not on filedocumented in this encounter Additional Health Concerns Infection Onset Date Last Indicated Resolved Time MSSA 10/04/2018 10/04/2018 06/28/2022 8:27 AM CDT MSSA 06/19/2023 07/04/2023 07/17/2023 2:29 PM CDT MSSA 08/02/2023 08/02/2023 documented as of this encounter Care Teams Building Serviceman Relationship Specialty Start Date End Date Wade Donovan MD 1705 [facility] 20 [place] [address] PCP - General Family Medicine 02/05/24 documented as of this encounter
--- OUTSIDE RECORDS SUMMARY | 2024-12-13 15:44 | XMS_ITS | Encounter Summary ---
Author Organization [facility] er Address [address] [place] [id number] Care Team Providers Care Financial Services Specialist Name Role Phone Wade Donovan MD Primary Care Provider [phone] Reason for Visit * Reason Onset Date Comments Home care 12/03/2024 Encounter Details Date Type Department Care Team (Late st Contact Info) Description 12/03/2024 Telephone [facility] [address] [place] [address] Annette Corona, [facility] [address] [place] [address] Home care Social History Tobacco Use Types Packs/Day Years [...] from your doctor or pharmacy? Always 11/25/2024 [facility] Utilities Answer Date Recorded In the past [...] 11/25/2024 How often do you attend chur or synagogue services? 1 to 4 times per year [...] Date Recorded PHQ-9 Total Score 2 11/25/2024 [facility] of Occupat ional Health - Occupational Stress [...] money to buy more. Never true 11/25/19 25 Within the past 12 months, t he [...] in a senior care (including now)? No 11/07/2023 Housing Stability Vital Sign Answer Jose e Recorded In the last 12 months, was t here a time when you were not able to pay the mortgage or rent on time? No 11/25/2024 In the past 12 months, how m any times have you moved where you were living? 0 11/25/2024 At any time in the past 12 m [facility], were you homeless or living in a senior care (including now)? No 11/25/2024 Interpersonal Safety Questionnaire [...] encounter Miscellaneous Notes * Telephone Encounter - Annette Corona LICSW - 12/03/2024 1:25 PM CST Received referral re: Needs resources for home health to help bathing. Uses moon for transfers. Anhydrous Ammonia Production Supervisor called pt and received verbal consent from pt to speak with his , Nelia. Nelia states that she has talked with pt BCBS insurance which is through pt union, but it has been a while and she does not recall what would be covered. Anhydrous Ammonia Production Supervisor encouraged Nelia to reconnect with Union/insurance to further discuss coverage and assistance available. Nelia verbalized understanding. Anhydrous Ammonia Production Supervisor did also provide Nelia with information from [facility] [employer] with the private pay rate for LEAF FAT SCRAPER services. Nelia was appreciative of information provided. All questions and concerns addressed. [facility] contact information provided. No further [facility] needed at this time. N RESOURCES LEADER documented in this encounter Plan of Treatment Upcoming Encounters Date Type Department Care Team (Late st Contact Info) Description 12/23/2024 11:30 AM CDT Appointment [facility] MRI [address] [place] [address] 12/30/2024 2:00 PM CDT Office Visit [facility] Urology [address] [place] [address] Bryce Jack MD [address] [place] [address] 02/03/2025 11:00 AM CDT Office Visit [facility] [address] [place] [address] Selena Iraheta MD [address] [place] [phone] 03/23/2025 1:00 PM CDT Office Visit [facility] Neurology [address] [place] [address] Maria Fernanda Campoverde MD [address] [facility] [place] [phone] documented as of this encounter Visit Diagnoses Not on filedocumented in this encounter Additional Health Concerns Infection Onset Date Last Indicated Resolved Time MSSA 08/02/2023 08/02/2023 documented as of this encounter Care Teams Financial Services Specialist Relationship Specialty Start Date End Date Wade Donovan MD [address] [facility] [place] [address] [place] [address] PCP - General Family Medicine 02/05/24 documented as of this encounter
--- OUTSIDE RECORDS SUMMARY | 2024-12-13 15:44 | XMS_ITS | Encounter Summary ---
Author Organization [facility] er Address [address] [place] [address] Care Team Providers Care Retail Buyer Name Role Phone Wade Donovan MD Primary Care Provider [phone] Reason for Referral * Consultation (Routine) - Authorized Specialty Diagnoses / Procedures Referred By Joan krause Referred To Contact Infectious Diseases Diagnoses Recurrent UTI Bryce Jack MD [address] [place] [address] Phone: tel: fax: [facility] Infectious Disease [address] [place] [address] Phone: tel: fax: Referral ID Status Reason Start Date Expiration Date Visits Requested Visits Authorized [id number] Authorized Specialty Services Required 12/02/2024 12/02/2025 1 1 SEAT UPHOLSTERER * Imaging (Routine) - Pending Review Specialty Diagnoses / Procedures Referred By Joan krause Referred To Contact Radiology Diagnoses Recurrent UTI Bladder calculi Renal calculi Procedures CT Abdomen Pelvis wo IV Contrast Bryce Jack MD [address] [place] [address] Phone: tel: fax: [facility] CT Scan [address] [place] [address] Phone: tel: fax: Referral ID Status Reason Start Date Expiration Date V isits Requested Visits Authorized [id number] Pending Review 12/02/2024 12/02/2025 1 1 SEAT UPHOLSTERER Reason for Visit * Reason Comments Urinary Retention * Consultation (Routine) - Authorized Specialty Diagnoses / Procedures Referred By Contac t Referred To Contact Urology Diagnoses Recurrent [place] [address] [place] [phone] Phone: tel: fax: Referral ID Status Reason Start Date Expiration Date Visits Requested Visits Authorized [id number] Authorized Specialty Services Required 11/25/2024 11/25/2025 1 1 Encounter Details Date Type Department Care Team (Late st Contact Info) Description 12/02/2024 3:30 PM CAR SEAT UPHOLSTERER Consult [facility] Urology [address] [place] [address] [phone] Bryce Jack MD [address] [place] [phone] Recurrent UTI (Primary Dx); Neurogenic bladder; Bladder calculi; Renal calculi Social History Tobacco Use Types Packs/Day Years [...] from your doctor or pharmacy? Always 11/25/2024 [facility] Utilities Answer Date Recorded In the past 12 months has e electric, gas, oil, or water company [...] often do you attend chur ch or judaism services? 1 to 4 times per year [...] Date Recorded PHQ-9 Total Score 2 11/25/2024 [facility] of Occupat ional [...] slept in a assisted (including now)? No 11/07/2023 Housing Stability Vital Sign Answer Jose e Recorded In the last 12 months, was t here a time when you were not able to pay the mortgage or rent on time? No 11/25/2024 In the past 12 months, how m any times have you moved where you were living? 0 11/25/2024 At any time in the past 12 m [facility], were you homeless or living in a assisted (including now)? No 11/25/2024 Interpersonal Safety Questionnaire [...] Sign Reading Time Taken Comments Blood Pressure 130/78 12/02/2024 3:14 PM CAR SEAT UPHOLSTERER Pulse 80 12/02/2024 3:14 PM CAR SEAT UPHOLSTERER Temperature 36.4 C (97.6 F) 12/02/2024 3:14 PM CAR SEAT UPHOLSTERER Respiratory Rate 16 12/02/2024 3:14 PM CAR SEAT UPHOLSTERER Oxygen Saturation - - Inhaled Oxygen Concentration - - Weight - - Height - - Body Mass Index - - documented in this encounter Progress Notes * Bryce Jack MD - 12/02/2024 3:30 PM CST FU recurrent UTIs. Has hx of MS causing the need for CIC (by ) for over 20 years. In 10/2023 hadendoscopic removal of bladder and ureteral calculi for 2nd time. On Ditropan 5 mg bid. No voiding between caths. Tried low dose antibiotic prophylaxis but had breakthrough infections. Is becoming increasing drug resistant. 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 SEAT UPHOLSTERER documented in this encounter Plan of Treatment Upcoming Encounters Date Type Department Care Team (Late st Contact Info) Description 12/23/2024 11:30 AM CDT Appointment [facility] [address] [place] [address] 12/30/2024 2:00 PM CDT Office Visit [facility] Urology [address] [place] [address] Bryce Jack MD [address] [place] [address] 02/03/2025 11:00 AM CDT Office Visit [facility] [address] [place] [address] [phone] Selena Iraheta MD [address] [place] [address] 03/23/2025 1:00 PM CDT Office Visit [facility] [address] [place] [phone] Maria Fernanda Campoverde MD [address] [place] [address] Scheduled Orders Name Type Priority Associated Diagnoses Orde r Schedule CT Abdomen Pelvis wo IV Contrast Imaging Routine Recurrent UTI Bladder calculi Renal calculi Expected: 12/02/2024, Expires: 12/02/2025 Scheduled Referrals Name Type Priority Associated Diagnoses Order Schedule Ambulatory referral to Infectious Disease Outpatient Referral Routine Recurrent UTI 1 Occurrences starting 12/02/2024 until 12/02/2025 documented as of this encounter Visit Diagnoses Diagnosis Recurrent UTI- Primary Urinary tract infection, site not specified Neurogenic bladder Neurogenic bladder, NOS Bladder calculi Other calculus in bladder Renal calculi Calculus of kidney documented in this encounter Additional Health Concerns Infection Onset Date Last Indicated Resolved Time MSSA 08/02/2023 08/02/2023 documented as of this encounter Care Teams Retail Buyer Relationship Specialty Start Date End Date Wade Donovan MD [address] [facility] [address] [place] [address] PCP - General Family Medicine 02/05/24 documented as of this encounter
--- OUTSIDE RECORDS SUMMARY | 2024-12-13 15:44 | XMS_ITS | Encounter Summary ---
Author Organization [facility] er Address [address] [place] [address] Care Team Providers Care Nursing Home Aide Name Role Phone Wade Donovan MD Primary Care Provider [phone] Reason for Referral * Consultation (Routine) - Authorized Specialty Diagnoses / Procedures Referred By Joan krause Referred To Contact Otolaryngology Diagnoses Internal auditory canal abnormality Swelling of face Wade Donovan MD [address] [facility] [address] [place] [address] Phone: tel: fax: Ear Nose Throat [address] [place] [address] Phone: tel: fax: Referral ID Status Reason Start Date Expiration Date Visits Requested Visits Authorized [id number] Authorized Specialty Services Required 11/25/2024 11/25/2025 1 1 Scheduling Instructions Please call the ENT Driver License Technician desk at [phone] ext. [phone] to schedule an appointment. HYOLOGY TEACHER * Consultation (Routine) - Authorized Specialty Diagnoses / Procedures Referred By Joan t Referred To Contact Process Consultant Diagnoses Multiple sclerosis (HCC) TIA (transient ischemic attack) Paraplegia (HCC) Wade Donovan MD [address] [facility] [address] [place] [address] Phone: tel: fax: [facility] Process Consultant [address] [place] [id number] Phone: tel: fax: Referral ID Status Reason Start Date Expiration Date V isits Requested Visits Authorized [id number] Authorized 11/25/2024 11/25/2025 1 1 Scheduling Instructions Needs resources for home health to help bathing. Uses [employer] for transfers. HYOLOGY TEACHER * Consultation (Routine) - Authorized Specialty Diagnoses / Procedures Referred By Joan krause Referred To Contact Family Medicine Diagnoses Multiple sclerosis (HCC) Recurrent UTI TIA (transient ischemic attack) Paraplegia (HCC) Wade Donovan MD [address] [address] Phone: tel: fax: Care Coordination [address] [place] [address] Phone: tel: fax: Referral ID Status Reason Start Date Expiration Date Visits Requested Visits Authorized [id number] Authorized Specialty Services Required 11/25/2024 11/25/2025 99 99 Scheduling Instructions Staff from this department will contact the patient to schedule an appointment. HYOLOGY TEACHER * Imaging (Routine) - Authorized Specialty Diagnoses / Procedures Referred By Joan krause Referred To Contact Radiology Diagnoses Multiple sclerosis (HCC) TIA (transient ischemic attack) S/P resection of meningioma Procedures MRI head w and wo contrast Wade Donovan MD [address] [address] Phone: tel: fax: [facility] MRI [address] [place] [address] Phone: tel: fax: Referral ID Status Reason Start Date Expiration Date V isits Requested Visits Authorized [id number] Authorized 11/25/2024 11/25/2025 1 1 HYOLOGY TEACHER * Consultation (Routine) - Authorized Specialty Diagnoses / Procedures Referred By Contac t Referred To Contact Neurology Diagnoses Multiple sclerosis (HCC) Internal auditory canal abnormality S/P resection of meningioma Wade Donovan MD [address] [place] [phone] Phone: tel: fax: Neurology [address] [place] [address] Phone: tel: fax: Referral ID Status Reason Start Date Expiration Date Visits Requested Visits Authorized [id number] Authorized Specialty Services Required 11/25/2024 11/25/2025 1 1 Scheduling Instructions Please call the Neurology Driver License Technician desk at [phone] to schedule an appointment. HYOLOGY TEACHER * Consultation (Routine) - Authorized Specialty Diagnoses / Procedures Referred By Joan t Referred To Contact Urology Diagnoses Recurrent UTI Retention of urine Wade Donovan MD [address] [place] [phone] Phone: tel: fax: Referral ID Status Reason Start Date Expiration Date Visits Requested Visits Authorized [id number] Authorized Specialty Services Required 11/25/2024 11/25/2025 1 1 Scheduling Instructions Staff from this department will contact the patient to schedule an appointment. 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 Always 11/25/2024 [facility] Utilities Answer Date Recorded In the past 12 months has e [employer] gas, oil, or water [employer] threatened to shut off services in your [...] Date Recorded PHQ-9 Total Score 2 11/25/2024 [facility] [...] in a prison (including now)? No 11/07/2023 Housing Stability Vital Sign Answer Jose e Recorded In the last 12 months, was t here a time when you were not able to pay the mortgage or rent on time? No 11/25/2024 In the past 12 months, how m any times have you moved where you were living? 0 11/25/2024 At any time in the past 12 m [facility], were you homeless or living in a prison (including now)? No 11/25/2024 Interpersonal Safety Questionnaire Answer Date Recorded How often does anyone, [place] family and friends, physically hurt you? Never 11/25/2024 How often does anyone, [place] family and friends, insult or talk down to you? Never 11/25/2024 How often does anyone, [place] family and friends, threaten you with harm? Never 11/25/2024 How often does anyone, loki [...] Sign Reading Time Taken Comments Blood Pressure 138/95 11/25/2024 12:32 PM ICHTHYOLOGY TEACHER Pulse 93 11/25/2024 12:32 PM ICHTHYOLOGY TEACHER Temperature 36.7 C (98.1 F) 11/25/2024 11:22 AM ICHTHYOLOGY TEACHER Respiratory Rate 18 11/25/2024 11:22 AM ICHTHYOLOGY TEACHER Oxygen Saturation 91% 11/25/2024 11:22 AM ICHTHYOLOGY TEACHER Inhaled Oxygen Concentration - - Weight - - Height - - Body Mass Index - - documented in this encounter Progress Notes * Wade Donovan MD - 11/25/2024 11:20 AM CST Assessment & Plan Medicare annual wellness visit, subsequent Reviewed. 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 Continue Baclofen 20 mg TID. Home care referral for health aide to help with caregiver burden, shower, cleaning, dressing transfers Multiple sclerosis (HCC) History of secondary progressive MS, diagnosed 2004. Does not have Neurologist. Currently experiencing cognitive decline and confusion. Referral to neurology for MS management S/P resection of meningioma S/p resection large meningioma in November 2023. We are repeating brain MRI and referring to establish care with Neurology. Dr. Trejo, his Neurosurgeon, plans to see him once per year with annual brain MRI (last seen March 2024), so due sometime Summer 2024 for follow up with him. 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 Swelling of face Ongoing chronic headaches. Noted maxillofacial abnormality March 2024 at eye clinic and referred to ENT for deformity of maxillofacial bone. Saw [facility] Aug [address] who [address] to [address] images as theyweren't available at time of visit (I believe these were [facility] images, I still don't see those in his Media tab or in Care Everywhere). Patient has not been able to make it back for re-visit with ENT yet, but obviously should get the images as requested and follow up with them. Recurrent UTI History of urinary retention/ neurogenic bladder managed with intermittent self- catheterization, recurrent calcium oxalate stones, and recurrent UTI's, including recent bouts of Urosepsis (October 2022 [facility]) and obstructing kidney stone and large bladder stone with Urosepsis again (October 2023 [facility]) and underwent ureteroscopy with ureteral stenting at that time. Repeat imagingultrasound kidneys November 2023 no residual stone. Was on antibiotic prophylaxis in the past but not currently. Last urine culture was E. Coli resistant to Bactrim (Aug 2024). Was following with [facility] in the past, but would like to establish care at [facility]. - Possibly exacerbated by stool incontinence - Discussed D-mannose, efficacy uncertain - Advised clean catheter use - Suggested cranberry juice - Recommended to consider further bowel regimen to empty the bowel more regularly - Question if Oxybutynin is needed (is this managing spasms appropriately or causing worsening constipation) - Family question if a more permanent catheter would be helpful - Referral to urology for further evaluation and establish ongoing cares Subjective History of Present Illness Dhruv presents for a Medicare annual checkup with his 2 daughters, Kera and Yaneli. His spouse, Nelia, is not here today. Nelia is oftentimes overwhelmed with caring for Dhruv. Several concerns and issues are addressed today. 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 Two primary current concerns include question recent TIA and cognitive decline and urinary retention with recurrent UTI's. Recurrent UTIs and chronic urinary retention - Requiring a urology consultation which was scheduled in October 2024 at [facility] but that clinic called and canceld on them multiple times and requesting new referral - Family is seeking a new urologist within [facility] and considering D-mannose supplements, though not yet started. - Uses a new catheter each time. - Family is concerned about sepsis and antibiotic resistance. - Urine appears normal now. - Change in mental status and cloudy urine is usually the only clue they have to possible infections - Started apple cider vinegar gummies. - wondering about d-mannose and cranberry juice Cognitive Changes - Increased confusion over the past few months. - Difficulty recognizing people and tracking conversations. - Fine motor skills have deteriorated, increasing dependency for eating. - Retains long-term memory but struggles with short-term recall. - No dangerous situations reported. - No sadness, anxiety, or worry. Appetite and Digestion - Appetite stable, eating once a day. - No abdominal pain. - Constipation resolved with senna and MiraLAX as needed. - Bowel movements every couple of days. - Stool incontinence for 6 months, occurring 75% of the time, sometimes triggered by body position changes. - Not always aware of incidents. - Stool incontinence once per week when lifting on the [employer] lift into bed stool comes out General Health - No changes in vision, vomiting, body aches, or nausea. - INR was 2.8 last week. - Sober for nearly 40 years. - No history of bleeding problems, ulcers, liver or kidney disease, or confirmed strokes. - Has a plate in his arm and skull, and a torito in his leg. - No metal in his eye. - Does not read or use the computer anymore. - Saw an ENT in August 2024 at [place] for a bump on his nose; follow-up pending scan review. - No changes in hearing. - Uses a stationary seated pedal bike daily since , improving leg condition. - Unable to move legs independently. - Edema improved. - Sleeping excessively. - Progressive MS, not seen for years. - Experiencing headaches and excessive sleepiness. - Blood pressure usually low (100-110), not checked at home recently. - Not on aspirin. - On warfarin for embolism, resumed 8-12 weeks postoperatively. - Follow-up with neurosurgeon Dr. Trejo in 6 months planned. - Advised to see a neurologist as well. - Requested home care referral for assistance with ADLs. - Insurance covers 1 day a week. - Requested director critical care for scheduling appointments. He has a plate in his arm and skull, and a torito in his leg. No metal in his eye. Saw [facility] in August 2024 at [place] for a bump on his nose; follow-up pending CT scan review atthe ENT provider did not have access to images at that time and wanted to see him back when they could review them. No changes in hearing. Uses a stationary seated pedal bike daily since , improving leg swelling. Sleeping excessively. Off warfarin for 1.5 weeks post brain surgery. On warfarin for history of pulmonary embolism. Not on aspirin. History of Secondary Progressive MS, not seen by Neurologist for years. Experiencing headaches somedays and excessive sleepiness. Requested home care referral for assistance with ADLs. Insurance covers 1 day a week. He does not read or use the computer anymore. Blood pressure usually low (100-110), not checked at home recently. SOCIAL HISTORY - Sober for nearly 40 years CURRENT MEDICATIONS - Baclofen 20 mg TBID - Senna (1-2 times per day prn) - MiraLAX (not taking) - Warfarin as per Anticoag clinic, taking - Oxybutynin 5 mg BID - Lipitor 20 mg at bedtime - Vit D 2000 Units once per week (low Vit d level and history of kidney stones) Objective Vitals: 11/25/24 1122 11/25/24 1232 BP: (!) 122/91 (!) 138/95 BP Location: Right arm Left arm Patient Position: Sitting Sitting BP Cuff Size: Large adult Adult Pulse: 97 93 Resp: 18 Temp: 36.7 ??C (98.1 ??F) TempSrc: Temporal SpO2: 91% Physical Exam External ears clear. Minimal wax in left ear, not blocking. Right ear normal. LE mild pitting edema mid shins bilaterally In powered wheelchair, paraplegia LE's, alert and oriented, speech normal, hearing is grossly decreased Vital Signs Blood pressure 122/91. Results - Laboratory Studies: - INR: 2.8 - Imaging: - MRI (March 2024): Stable 8 mm lesion in the right internal auditory canal Total time spent in patient care was over 60 minutes which included the pre- work, visit work, and post-visit work. HYOLOGY TEACHER * Wade Donovan MD - 11/25/2024 11:20 AM CST Annual Wellness Visit The following portions of the patient's chart were reviewed in this encounter and updated as appropriate: Tobacco Allergies Meds Visit Vitals BP (!) 122/91 (BP Location: Right arm, Patient Position: Sitting, BP Cuff Size: Large adult) Pulse 97 Temp 36.7 ??C (98.1 ??F) (Temporal) Resp 18 SpO2 91% Smoking Status Never Pain Assessment Scored: 0-No pain and location: BMI/weight management reviewed: BMI: There is no height or weight on file to calculate BMI. Fall Risk Assessment performed. Scored: 11/14 Tug time: PHQ-9 mental health screening performed. Scored:2 (11/25/2024 11:11 AM) STEVE-7 anxiety screening performed. Scored:1 (11/25/2024 11:27 AM)/ Mini-Cog test performed. Scored: / CAGE-AID test performed. Advanced Care Planning: The following healthcare items are recommended to you based on your age, sex, personal and family history: Health Maintenance Topic Date Due Zoster Vaccines (1 of 2) Never done Pneumococcal Vaccine: 50+ Years (3 of 3 - PCV20 or PCV21) 08/27/2022 DTaP,Tdap,and Td Vaccines (3 - Td or Tdap) 02/27/2024 COVID-19 Vaccine (4 - season) 2024 Influenza Vaccine (1) 06/01/2024 Colorectal Cancer Screening 06/30/2025 Fall Risk Performed 11/25/2025 Medicare Annual Wellness Visit (AWV) 11/25/2025 HPV Vaccines Aged Out ASCVD Risk Score: The ASCVD Risk score (Hoda KIM, et al., 2019) failed to calculate for the following reasons: The valid total cholesterol range is 130 to 320 mg/dL Prostate Cancer Screening: (Male patients only) Lab Results Component Value Date PSA 4.1 08/11/2024 Hepatitis C Screening: Recommended for those born between 0895-6507, receiving blood transfusion before 1991, illicit injection drug use Lab Results Component Value Date HEPCAB NON-REACTIVE 11/03/2021 Glaucoma Screening: Recommended annually if you have diabetes, family history of glaucoma, and over 50 or and over 65. AAA Screening: Screening recommended if not previously done if you have a family history of abdominal aortic aneurysm, or are male age 65-75 and have smoked at least 100 cigarettes in your lifetime Lung Cancer Screening: Recommended annually if age 50-77, asymptomatic, current smoker or quit in last 15 years and have at least a 20 year ???pack year?? history. Social Drivers of Health with Concerns Tobacco Use: Medium Risk (11/25/2024) Financial Resource Strain: Medium Risk (11/25/2024) Physical Activity: Inactive (11/25/2024) Stress: Stress Concern Present (11/25/2024) Social Connections: Moderately Isolated (11/25/2024) Health Literacy: Inadequate Health Literacy (11/25/2024) General Care Management Assessment completed with:: Friend/Family (11/25/2024 11:28 AM) How do you rate your overall health?: Good (11/25/2024 11:28 AM) Enrolled in care coordination:: No (11/25/2024 11:28 AM) Do you receive care from providers outside of [facility]: Yes (11/25/2024 11:28 AM) Do you have a Home Health Agency or receive Process Consultant Assistance?: No (11/25/2024 11:28 AM) Equipment used at home:: Wheelchair (11/25/2024 11:28 AM) Do you have or see a dentist regularly?: Yes (11/25/2024 11:28 AM) Do you receive routine eye care?: (!) No (11/25/2024 11:28 AM) Do you wear hearing aids:: No (11/25/2024 11:28 AM) Do you have trouble hearing the TV or conversations:: (!) Yes (11/25/2024 11:28 AM) Do you have concerns about your hearing?: (!) Yes (11/25/2024 11:28 AM) How many times in the last 6 months have you been to the emergency room?: 0 (11/25/2024 11:28 AM) How many times in the last 6 months have you been admitted to the hospital?: 0 (11/25/2024 11:28 AM) Home Safety and Activities of Daily Living Screening Does your home have rugs, poor lighting, or slippery floors?: -- (Does not walk) (11/25/2024 11:28 AM) Do you use any grab bars in your bathroom, stairs, or steps?: -- (Does not walk) (11/25/2024 11:28 AM) Do you have functional smoke and carbon monoxide detectors: Yes (11/25/2024 11:28 AM) Please rate your level of assistance needed with eating:: (!) Needs Assistance (11/25/2024 11:28 AM) Please rate your level of assistance needed with walking: -- (Cannot walk) (11/25/2024 11:28 AM) Please rate your level of assistance needed with using stairs: -- (Cannot Walk) (11/25/2024 11:28 AM) Please rate your level of assistance needed when using the bathroom: (!) Dependent (11/25/2024 11:28AM) Please rate your level of assistance needed when bathing: (!) Needs Assistance (11/25/2024 11:28 AM) Please rate your level of assistance needed when getting dressed: (!) Dependent (11/25/2024 11:28 AM) Please rate your level of assistance needed when cooking: (!) Dependent (11/25/2024 11:28 AM) Please rate your level of assistance needed with laundry: Independent (11/25/2024 11:28 AM) Please rate your level of assistance needed with taking medications: (!) Needs Assistance (11/25/2024 11:28 AM) Please rate your level of assistance needed with finances: (!) Needs Assistance (11/25/2024 11:28 AM) Please rate your level of assistance needed when shopping for groceries: (!) Dependent (11/25/2024 11:28 AM) Please rate your level of assistance needed with housework: (!) Needs Assistance (11/25/2024 11:28 AM) Please rate your level of assistance needed with driving/transportation: (!) Dependent (11/25/2024 11:28 AM) Please rate your level of assistance needed with home repair: (!) Dependent (11/25/2024 11:28 AM) An Annual Wellness Visit was completed today with your healthcare team. This visit allows us to review your health history and identify current or potential risks. Referrals, immunizations, and/or testing may be available to you based on these findings. Please let your healthcare team know if you would like any of these services offered today or at any time in the future. Materials for review regarding available services and resources will be provided. Don't hesitate to reach out to your healthcare team with any questions or concerns. HYOLOGY TEACHER documented in this encounter Miscellaneous Notes * Assessment & Plan Note - Wade Donovan MD - 11/25/2024 11:20 AM ICHTHYOLOGY TEACHER Associated Problem(s): Multiple sclerosis (HCC) History of secondary progressive MS, diagnosed 2004. Does not have Neurologist. Currently experiencing cognitive decline and confusion. Referral to neurology for MS management HYOLOGY TEACHER HYOLOGY TEACHER HYOLOGY TEACHER * Assessment & Plan Note - Wade Donovan MD - 11/25/2024 11:20 AM ICHTHYOLOGY TEACHER Associated Problem(s): S/P resection of meningioma S/p resection large meningioma in November 2023. We are repeating brain MRI and referring to establish care with Neurology. Dr. Trejo, his Neurosurgeon, plans to see him once per year with annual brain MRI (last seen March 2024), so due sometime Summer 2024 for follow up with him. HYOLOGY TEACHER HYOLOGY TEACHER HYOLOGY TEACHER * Assessment & Plan Note - Wade Donovan MD - 11/25/2024 11:20 AM ICHTHYOLOGY TEACHER Associated Problem(s): Recurrent UTI History of urinary retention/ neurogenic bladder managed with intermittent self- catheterization, recurrent calcium oxalate stones, and recurrent UTI's, including recent bouts of Urosepsis (October 2022 [facility]) and obstructing kidney stone and large bladder stone with Urosepsis again (October 2023 [facility]) and underwent ureteroscopy with ureteral stenting at that time. Repeat imagingultrasound kidneys November 2023 no residual stone. Was on antibiotic prophylaxis in the past but not currently. Last urine culture was E. Coli resistant to Bactrim (Aug 2024). Was following with [facility] in the past, but would like to establish care at [facility]. - Possibly exacerbated by stool incontinence - Discussed D-mannose, efficacy uncertain - Advised clean catheter use - Suggested cranberry juice - Recommended to consider further bowel regimen to empty the bowel more regularly - Question if Oxybutynin is needed (is this managing spasms appropriately or causing worsening constipation) - Family question if a more permanent catheter would be helpful - Referral to urology for further evaluation and establish ongoing cares HYOLOGY TEACHER HYOLOGY TEACHER HYOLOGY TEACHER * Assessment & Plan Note - Wade Donovan MD - 11/25/2024 11:20 AM ICHTHYOLOGY TEACHER Associated Problem(s): 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 (HCC) - Experiencing cognitive decline, confusion, short-term memory loss, and fine motor skill changes - History of head injury age 23, 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 - Considered underlying vascular dementia, family has concerns for history of TIA?, MRI's show evidence of MS-related disease as well as prior lacunar infarcts and chronic small vessel ischemic changes - Declines [facility] cognitive evaluation today - Advised home blood pressure monitoring (aim for better BP control <130/80, currently not controlled and not on medication) - Discussed modafinil or provigil for MS-related fatigue?, deferred to neurologist - Ordered MRI brain for further work up - Referral to neurology for further evaluation HYOLOGY TEACHER HYOLOGY TEACHER * Assessment & Plan Note - Wade Donovan MD - 11/25/2024 11:20 AM ICHTHYOLOGY TEACHER Associated Problem(s): 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 Continue Baclofen 20 mg TID. Home care referral for health aide to help with caregiver burden, shower, cleaning, dressing transfers HYOLOGY TEACHER HYOLOGY TEACHER documented in this encounter Plan of Treatment Upcoming Encounters Date Type Department Care Team (Late st Contact Info) Description 12/23/2024 11:30 AM CDT Appointment [facility] MRI [address] [place] [address] 12/30/2024 2:00 PM CDT Office Visit [facility] Urology [address] [place] [address] Bryce Jack MD [address] [place] [address] 02/03/2025 11:00 AM CDT Office Visit [facility] [address] [place] [address] Selena Iraheta MD [address] [place] [phone] 03/23/2025 1:00 PM CDT Office Visit [facility] [address] [place] [address] [phone] Maria Fernanda Campoverde MD [address] [place] [phone] Scheduled Orders Name Type Priority Associated Diagnoses Orde r Schedule MRI head w and wo contrast Imaging Routine Multiple sclerosis (HCC) TIA (transient ischemic attack) S/P resection of meningioma Expected: 11/25/2024, Expires: 11/25/2025 Basic metabolic panel Lab Routine TIA (transient ischemic attack) Expected: 11/25/2024, Expires: 11/25/2025 Scheduled Referrals Name Type Priority Associated Diagnoses Order Schedule Ambulatory referral to Urology Outpatient Referral Routine Recurrent UTI Retention of urine Ordered: 11/25/2024 Ambulatory referral to Neurology Outpatient Referral Routine Multiple sclerosis (HCC) Internal auditory canal abnormality S/P resection of meningioma Ordered: 11/25/2024 Ambulatory referral to Care Coordination Outpatient Referral Routine Multiple sclerosis (HCC) Recurrent UTI TIA (transient ischemic attack) Paraplegia (HCC) Ordered: 11/25/2024 Ambulatory referral to Medical Process Consultant: Resource and Referral Outpatient Referral Routine Multiple sclerosis (HCC) TIA (transient ischemic attack) Paraplegia (HCC) Ordered: 11/25/2024 Ambulatory referral to ENT Outpatient Referral Routine Internal auditory canal abnormality Swelling of face Ordered: 11/25/2024 documented as of this encounter Visit Diagnoses Diagnosis Medicare annual wellness visit, subsequent- Primary 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 (HCC) 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) Multiple sclerosis (HCC) Multiple sclerosis S/P resection of meningioma Internal auditory canal abnormality Swelling of face Recurrent UTI Urinary tract infection, site not specified Paraplegia (HCC) Paraplegia TIA (transient ischemic attack) Unspecified transient cerebral ischemia Retention of urine Unspecified retention of urine documented in this encounter Additional Health Concerns Infection Onset Date Last Indicated Resolved Time MSSA 08/02/2023 08/02/2023 documented as of this encounter Care Teams Nursing Home Aide Relationship Specialty Start Date End Date Wade Donovan MD [address] [place] [phone] PCP - General Family Medicine 02/05/24 documented as of this encounter
--- OUTSIDE RECORDS SUMMARY | 2024-12-13 15:45 | XMS_ITS | Encounter Summary ---
Author Organization [facility] er Address [address] [place] [address] Care Team Providers Care Service Assistant Name Role Phone Wade Donovan MD Primary Care Provider [phone] Reason for Visit * Reason Onset Date Comments Med Refill 06/03/2020 Encounter Details Date Type Department Care Team (Late st Contact Info) Description 06/03/2020 Refill [place] [address] [place] [address] Adarsh Carpenter MD Other pulmonary embolism without acute cor pulmonale, [...] Family Three times a week 08/11/2019 Attends Jewish Services Never 08/11 Active Member of Clubs [...] Answer Date Recorded PHQ-2 Score 0 01/19/2020 [facility] [place] of Occupat ional Health - Occupational Stress [...] Info) Description 12/23/2024 11:30 AM CDT Appointment [facility] MRI [address] [place] [address] 12/30/2024 2:00 PM CDT Office Visit [facility] Urology [address] [place] [address] Bryce Jack MD [address] [place] [address] 02/03/2025 11:00 AM CDT Office Visit [facility] [address] [place] [address] [phone] Selena Iraheta MD 210 [place] [phone] 03/23/2025 1:00 PM CDT Office Visit [facility] [address] [place] [address] Maria Fernanda Campoverde MD 210 [place] [phone] documented as of this encounter Visit Diagnoses Diagnosis Other pulmonary embolism without acute cor pulmonale, unspecified chronicity (HCC) documented in this encounter Additional Health Concerns Infection Onset Date Last Indicated Resolved Time MSSA 10/04/2018 10/04/2018 06/28/2022 8:27 AM CDT MSSA 06/19/2023 07/04/2023 07/17/2023 2:29 PM CDT MSSA 08/02/2023 08/02/2023 documented as of this encounter Care Teams Service Assistant Relationship Specialty Start Date End Date Wade Donovan MD 17[address] [facility] 20 [place] [phone] PCP - General Family Medicine 02/05/24 documented as of this encounter
--- OUTSIDE RECORDS SUMMARY | 2024-12-13 15:45 | XMS_ITS | Encounter Summary ---
Author Organization [facility] er Address [address] [place] [address] Care Team Providers Care Auction Clerk Name Role Phone Wade Donovan MD Primary Care Provider [phone] Encounter Details Date Type Department Care Team (Late st Contact Info) Description 09/02/2019 Telephone [place] [address] [place] [address] Adarsh Carpenter MD Social History Tobacco Use [...] Answer Date Recorded PHQ-2 Score 9 08/11/2019 [facility] of Occupat ional Health - [...] Info) Description 12/23/2024 11:30 AM CDT Appointment [facility] MRI [address] [place] [address] 12/30/2024 2:00 PM CDT Office Visit [facility] Urology [address] [place] [address] Bryce Jack MD [address] [place] [address] 02/03/2025 11:00 AM CDT Office Visit [facility] [address] [place] [address] Selena Iraheta MD 210 [place] [phone] 03/23/2025 1:00 PM CDT Office Visit [facility] [address] [place] [phone] Maria Fernanda Campoverde MD [address] [place] [phone] documented as of this encounter Visit Diagnoses Not on filedocumented in this encounter Additional Health Concerns Infection Onset Date Last Indicated Resolved Time MSSA 10/04/2018 10/04/2018 06/28/2022 8:27 AM CDT MSSA 06/19/2023 07/04/2023 07/17/2023 2:29 PM CDT MSSA 08/02/2023 08/02/2023 documented as of this encounter Care Teams Auction Clerk Relationship Specialty Start Date End Date Wade Donovan MD 1705 [facility] 20 [place] [phone] PCP - General Family Medicine 02/05/24 documented as of this encounter
--- OUTSIDE RECORDS SUMMARY | 2024-12-13 15:45 | XMS_ITS | Encounter Summary ---
Author Organization [facility] er Address [address] [place] [address] Care Team Providers Care Head Of History Name Role Phone Wade Donovan MD Primary Care Provider [phone] Encounter Details Date Type Department Care Team (Late st Contact Info) Description 07/28/2020 Telephone [place] [address] [place] [address] Adarsh Carpenter MD Social History Tobacco Use [...] Date Recorded PHQ-9 Total Score 0 07/23/2020 [facility] of Occupat ional Health - Occupational Stress [...] Info) Description 12/23/2024 11:30 AM CDT Appointment [facility] MRI [address] [place] [address] 12/30/2024 2:00 PM CDT Office Visit [facility] Urology [address] [place] [address] Bryce Jack MD [address] [place] [address] 02/03/2025 11:00 AM CDT Office Visit [facility] [address] [place] [address] Selena Iraheta MD 210 [facility] [place] [phone] 03/23/2025 1:00 PM CDT Office Visit [facility] 210 [address], [place] [address] Maria Fernanda Campoverde MD [address] [place] [phone] documented as of this encounter Visit Diagnoses Not on filedocumented in this encounter Additional Health Concerns Infection Onset Date Last Indicated Resolved Time MSSA 10/04/2018 10/04/2018 06/28/2022 8:27 AM CDT MSSA 06/19/2023 07/04/2023 07/17/2023 2:29 PM CDT MSSA 08/02/2023 08/02/2023 documented as of this encounter Care Teams Head Of History Relationship Specialty Start Date End Date Wade Donovan MD 1705 [facility] 20 [place] [phone] PCP - General Family Medicine 02/05/24 documented as of this encounter
--- OUTSIDE RECORDS SUMMARY | 2024-12-13 15:45 | XMS_ITS | Clinical Summary ---
Author Organization [facility] er Address [address] [place] [address] Care Team Providers Care Guardian Family Member Name Role Phone Wade Donovan MD Primary Care Provider Allergies Active Allergy Reactions Criticality Noted Date Comments Penicillins Medium 11/22/2016 Other reaction(s): *Unknown - Pt Doesn't Remember, Other (see comments) Delirium, questionable anaphylactic reaction Medications acetaminophen (TYLENOL) 500 MG tablet Take 1 tablet (500 mg total) by mouth if needed Active Sennosides (SENNA LAXATIVE) 25 MG tabletIndications :Constipation, unspecified constipation type May take one tab 1-2 times per day if needed for constipation. 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,Oth er pulmonary embolism without acute cor pulmonale, unspecified chronicity (HCC) Take daily by mouth 4mg every Mon, Wed, Fri; 2mg all other days or as directed by Anticoagulation Clinic 129 tablet 3 06/23/20 24 Active atorvastatin (LIPITOR) 20 MG tabletIndications :Mixed hyperlipidemia Take 1 tablet (20 mg total) by mouth every night 90 tablet 3 08/13/20 24 Active ketoconazole (NIZORAL) 2 % shampooIndication s:Seborrheic dermatitis Apply topically 2 (two) times a week 120 mL 3 08/14/20 24 Active clobetasol (TEMOVATE) 0.05 % external solutionIndicatio ns:Seborrheic dermatitis Apply topically 2 (two) times a week 50 mL 3 08/14/20 24 Active polyethylene glycol (GLYCOLAX) 17 GM/SCOOP powderIndications :Constipation, unspecified constipation type Take 17 g by mouth 2 (two) times a day 850 g 11 09/01/20 24 Active Additional Information Patient not taking.Reported on 11/25/2024 baclofen (LIORESAL) 20 MG tabletIndications :Multiple sclerosis (HCC) Take 1 tablet (20 mg total) by mouth 3 (three) times a day 270 tablet 3 09/01/20 24 Active cholecalciferol (VITAMIN D-3) 50 MCG (1999 UT) tabletIndications :Vitamin D deficiency Take 1 tablet (2,000 Units total) by mouth per week 09/02/20 24 Active methenamine hippurate (Hiprex) 1 g tabletIndications :Recurrent UTI Take 1 tablet (1 g total) by mouth 2 (two) times a day 180 tablet 3 12/03/19 25 2025 Active CIPROFLOXACIN HCL PO Take by mouth Patient finishing Cipro, unsure of strength 2024 Carolyni tammy(The rapy Complete d) Active Problems Problem Noted Date Diagnosed Date 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 0 12/02/2024 Assessment & Plan (12/02/2024 3:12 PM MATERIAL HANDLING TECHNICIAN): - Experiencing cognitive decline, confusion, short-term memory [...] - Referral to neurology for further evaluation Depressive disorder 11/13/2024 Recurrent UTI 08/25/2024 Assessment & Plan (12/02/2024 3:12 PM MATERIAL HANDLING TECHNICIAN): History of urinary retention/ neurogenic bladder managed with intermittent self-catheterization, recurrent calcium oxalate stones, and recurrent UTI's, including recent bouts of Urosepsis (October 2022 [place]) and obstructing kidney stone and large bladder stone with Urosepsis again (October 2023 [facility]) and underwent ureteroscopy with ureteral stenting at that time. Repeat imaging ultrasound kidneys November 2023 no residual stone. Was on antibiotic prophylaxis in the past but not currently. Last urine culture was E. Coli resistant to Bactrim (Aug 2024). Was following with [facility] in the past, but would like to establish care at [facility]. - Possibly exacerbated by stool incontinence - [...] for further evaluation and establish ongoing cares Facial mass 08/20/2024 Bilateral impacted cerumen 08/20/2024 S/P resection of meningioma 11/21/2023 Assessment & Plan (12/02/2024 3:12 PM MATERIAL HANDLING TECHNICIAN): S/p resection large meningioma in November 2023. We are repeating brain MRI and referring to establish care with Neurology. Dr. Trejo, his Neurosurgeon, plans to see him once per year with annual brain MRI (last seen March 2024), so due sometime Summer 2024 for follow up with him. Meningioma 11/01/2023 Sepsis secondary to UTI 11/01/2023 [...] : Neurogenic dysfunction of the urinary bladder senior care current use of anticoagulant 8 Anemia 12/25/2017 Pulmonary embolism 11/20/2017 Sensorineural hearing loss 08/27/2017 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 Spastic paraplegia secondary to multiple scleros is 10/04/2015 Assessment & Plan (12/02/2024 3:12 PM MATERIAL HANDLING TECHNICIAN): Improved spasms of LE's with recent dose increase of Baclofen. Continue Baclofen 20 mg TID. 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 Does not have Neurologist. Currently experiencing cognitive decline and confusion. Referral to neurology for MS management Encounters Date Type Department Care Team Description 12/03/2024 Telephone [facility] Stain Remover [address] [place] [address] Annette Corona, [facility] Home care 12/02/2024 3:30 PM MATERIAL HANDLING TECHNICIAN Consult [facility] Urology [address] [place] [address] Bryce Jack MD Recurrent UTI (Primary Dx); Neurogenic bladder; Bladder calculi; Renal calculi 12/01/2024 Anticoagulation - Warfarin Visit [facility]/Internal Medicine - Third Floor [address] [place] [address] 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 Cleary RN 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 of anticoagulant (Primary Dx); Other pulmonary embolism without acute cor pulmonale, unspecified chronicity (HCC) 11/25/2024 11:20 AM MATERIAL HANDLING TECHNICIAN Office Visit [address] [address] Wade Donovan MD Medicare annual wellness visit, subsequent (Primary Dx); 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 (HCC); 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); Multiple sclerosis (HCC); S/P resection of meningioma; Internal auditory canal abnormality; Swelling of face; Recurrent UTI; Paraplegia (HCC); TIA (transient ischemic attack); Retention of urine 11/18/2024 Anticoagulation - Warfarin Visit [facility]/Internal Medicine - Third [facility] [address] [place] [address] Iliana Doyle RN senior care current use of anticoagulant (Primary Dx); Other pulmonary embolism without acute cor pulmonale, unspecified chronicity (HCC) 11/14/[address] [address] Wade Donovan MD UTI 11/03/2024 Anticoagulation - Warfarin Visit [facility]/Internal Medicine - Third Floor [address] [place] [address] Dolores Cleary RN senior care current use of anticoagulant (Primary Dx); Other pulmonary embolism without acute cor pulmonale, unspecified chronicity (HCC) 10/22/2024 Anticoagulation - Warfarin Visit [facility]/Internal Medicine - Third Floor [address] [place] [address] Anna Betts RN senior care current use of anticoagulant (Primary Dx); Other pulmonary embolism without acute cor pulmonale, unspecified chronicity ([facility]) 10/21/2024 Refill [place] [address] [address] Wade Donovan MD Multiple sclerosis ([facility]) 10/06/2024 Anticoagulation - Warfarin Visit [facility]/Internal Medicine - Third Floor [address] [place] [address] Iliana Doyle RN senior care current use of anticoagulant (Primary Dx); Other pulmonary embolism without acute cor pulmonale, unspecified chronicity ([facility]) 10/06/2024 Telephone [facility]/Internal Medicine - Third Floor [address] [place] [address] Wade Donovan MD 2nd overdue INR notification 09/23/2024 Nurse Triage [place] [address] [address] Wade Donovan MD from Last 3 Months Immunizations Name [...] from your doctor or pharmacy? Always 11/25/2024 [facility] Utilities Answer Date Recorded In the past 12 months has e [address], oil, or water [employer] threatened to shut off services in your [...] Date Recorded PHQ-9 Total Score 2 11/25/2024 [facility] of Occupat ional Health - Occupational Stress [...] a group home (including now)? No 11/07/2023 Housing Stability Vital Sign Answer Jose e Recorded In the last 12 months, was t here a time when you were not able to pay the mortgage or rent on time? No 11/25/2024 In the past 12 months, how m any times have you moved where you were living? 0 11/25/2024 At any time in the past 12 m [facility], were you homeless or living in a group home (including now)? No 11/25/2024 Interpersonal Safety Questionnaire [...] Comments Blood Pressure 130/78 12/02/2024 3:14 PM MATERIAL HANDLING TECHNICIAN Pulse 80 12/02/2024 3:14 PM MATERIAL HANDLING TECHNICIAN Temperature 36.4 C (97.6 F) 12/02/2024 3:14 PM MATERIAL HANDLING TECHNICIAN Respiratory Rate 16 12/02/2024 3:14 PM MATERIAL HANDLING TECHNICIAN Oxygen Saturation 91% 11/25/2024 11: 22 AM MATERIAL HANDLING TECHNICIAN Inhaled Oxygen Concentration - - Weight 84.8 kg (186 lb 15.2 oz) 08/11/2019 3:23 PM MATERIAL HANDLING TECHNICIAN Height 185.4 cm (6' 0.99) 08/11/2019 3:23 PM CS T Body Mass Index 24.67 08/11/2019 3:23 PM MATERIAL HANDLING TECHNICIAN Plan of Treatment Upcoming Encounters Date Type Department Care Team (Late st Contact Info) Description 12/23/2024 11:30 AM CDT Appointment [facility] MRI [address] [place] [address] 12/30/2024 2:00 PM CDT Office Visit [facility] Urology [address] [place] [address] Bryce Jack MD [address] [place] [address] 02/03/2025 11:00 AM CDT Office Visit Ear Nose Throat [address] [place] [address] [phone] Selena Iraheta MD 210 [place] [phone] 03/23/2025 1:00 PM CDT Office Visit [facility] 210 [place], [place] [address] Maria Fernanda Campoverde MD 210 [place] [phone] Health Maintenance Due Date Last Done Comments CT Colonography 1958 FIT-DNA 1960 Sigmoidoscopy 1960 iFOBT 1960 Pneumococcal Vaccine: 50+ Years (3 of 3 - PCV20 or PCV21) 08/27/2022 08/27/2017, 08/06/2014 DTaP,Tdap,and Td Vaccines (3 - Td or Tdap) 02/27/2024 02/26/2014, 11/03/2002 COVID-19 Vaccine (4 - season) 2024 09/09/2021, 12/29/2020, 12/08/2020 Influenza Vaccine (#1) 2024 , 06/24/2021, 07/12/2020, Additional history exists Zoster Vaccines (2 of 2) 01/22/2025 11/27/2024 Colonoscopy 06/30/2025 09/30/2017, 09/02, 11/22/2016 Colorectal Cancer Screening 06/30/2025 Fall Risk Performed 11/25/2025 11/25/2024 Medicare Annual Wellness Visit (AWV) 11/25/2025 11/25/2024, 08/11/2019, 03/06/2018 HPV Vaccines Aged Out No longer eligi ble based on patient's age to complete this topic Procedures Procedure Name Priority Date/Time Associated Diagnosis Comments PROTIME-INR Routine 12/01/2024 PROTIME-INR Routine 11/17/2024 PROTIME-INR Routine 11/03/2024 PROTIME-INR Routine 10/22/2024 PROTIME-INR Routine 10/06/2024 from Last 3 Months Results * (ABNORMAL) Protime-INR (12/01/2024) Only the most recent of5 resultswithin the time period is included. INR 2.00(A) 0.90 - 1.10 HOME HEA LTH POINT OF CARE TESTING Protime HOME HEALT H POINT OF CARE TESTING Blood (Blood, Venous) Historical Provider LAB BLOOD ORDERABLES Mini nam Result HOME HEALTH POINT OF CARE TESTING from Last 3 Months Additional Health Concerns Infection Onset Date Last Indicated MSSA 08/02/2023 08/02/2023 Insurance MEDICARE [place] [id number] [facility] Advance Directives For more information, please contact: [phone] Documents on File Type Date Recorded Patient Tactical Air Control Party Expl anation POLST Order Form 11/14/2019 12:00 AM Care Teams Guardian Family Member Relationship Specialty Start Date End Date Wade Donvoan MD [address] [place] [address] PCP - General Family Medicine 02/05/24
--- OUTSIDE RECORDS SUMMARY | 2024-12-13 15:45 | XMS_ITS | Encounter Summary ---
Author Organization [facility] er Address [address] [place] [address] Care Team Providers Care Clinical Technologist Name Role Phone Wade Donovan MD Primary Care Provider [phone] Reason for Visit * Reason Onset Date Comments Med Refill Med Refill 11/08/2021 Encounter Details Date Type Department Care Team (Late st Contact Info) Description 10/28/2021 Refill [place] [address] [place] [address] Adarsh Carpenter MD Other pulmonary embolism without [...] Family Three times a week 08/11/2019 Attends Buddhist Services Never 08/11 Active Member of Clubs [...] Date Recorded PHQ-9 Total Score 0 07/23/2020 [facility] of Occupat ional Health - [...] 10/27/2021 INR 0.9 - 1.1 2.40 (A) 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 documented in this encounter Plan of Treatment Upcoming Encounters Date Type Department Care Team (Late st Contact Info) Description 12/23/2024 11:30 AM CDT Appointment [facility] MRI [address] [place] [address] 12/30/2024 2:00 PM CDT Office Visit [facility] Urology [address] [place] [address] Bryce Jack MD [address] [place] [address] 02/03/2025 11:00 AM CDT Office Visit [facility] [address] [place] [address] [phone] Selena Iraheta MD 210 [place] [phone] 03/23/2025 1:00 PM CDT Office Visit [facility] Neurology [address] [place] [address] [phone] Maria Fernanda Campoverde MD 210 [place] [phone] documented as of this encounter Visit Diagnoses Diagnosis Other pulmonary embolism without acute cor pulmonale, unspecified chronicity (HCC) documented in this encounter Additional Health Concerns Infection Onset Date Last Indicated Resolved Time MSSA 10/04/2018 10/04/2018 06/28/2022 8:27 AM CDT MSSA 06/19/2023 07/04/2023 07/17/2023 2:29 PM CDT MSSA 08/02/2023 08/02/2023 documented as of this encounter Care Teams Clinical Technologist Relationship Specialty Start Date End Date Wade Donovan MD 1705 [facility] 20 [place] [address] PCP - General Family Medicine 02/05/24 documented as of this encounter
--- OUTSIDE RECORDS SUMMARY | 2024-12-13 15:45 | XMS_ITS | Encounter Summary ---
Author Organization [facility] er Address [address] [place] [address] Care Team Providers Care High Reach Operator Name Role Phone Wade Donovan MD Primary Care Provider [phone] Reason for Visit * Reason Comments Med Refill Encounter Details Date Type Department Care Team (Late st Contact Info) Description 04/06/2019 Refill [place] [address] [place] [address] Adarsh Carpenter MD Other pulmonary embolism without [...] Info) Description 12/23/2024 11:30 AM CDT Appointment [facility] MRI [address] [place] [address] 12/30/2024 2:00 PM CDT Office Visit [facility] Urology [address] [place] [address] Bryce Jack MD [address] [place] [address] 25[address] 02/03/2025 11:00 AM CDT Office Visit [facility] [address] [place] [address] Selena Iraheta MD [address] [place] [phone] 03/23/2025 1:00 PM CDT Office Visit [facility] Neurology [address] [place] [address] [phone] Maria Fernanda Campoverde MD [address] [place] [address] [phone] documented as of this encounter Visit Diagnoses Diagnosis Other pulmonary embolism without acute cor pulmonale, unspecified chronicity (HCC)- Primary documented in this encounter Additional Health Concerns Infection Onset Date Last Indicated Resolved Time MSSA 10/04/2018 10/04/2018 06/28/2022 8:27 AM CDT MSSA 06/19/2023 07/04/2023 07/17/2023 2:29 PM CDT MSSA 08/02/2023 08/02/2023 documented as of this encounter Care Teams High Reach Operator Relationship Specialty Start Date End Date Wade Donovan MD 1705 [facility] 20 [place] [address] PCP - General Family Medicine 02/05/24 documented as of this encounter
--- OUTSIDE RECORDS SUMMARY | 2024-12-13 15:45 | XMS_ITS | Clinical Summary ---
Author Organization [facility] Address [address] [place] [address] Care Team Providers Care Government Affairs Researcher Name Role Phone Hang Carpenter Primary Care Provider Unavailabl e Allergies Active Allergy Reactions Criticality Noted Date Comments Venom-Honey Bee Angioedema High 02/28/2018 Penicillins *Unknown - Childhood Rxn Medium 02/12/2018 Medications Catheter (SELF-CATHETER, FEMALE) 14 Fr USE DIRECTED 9 Active baclofen (LIORESAL) 10 mg tablet TAKE ONE TABLET BY MOUTH THREE TIMES A DAY FOR MULTIPLE SCLEROSIS 3 Active atorvastatin (LIPITOR) 20 mg tablet Take 20 mg by mouth at bedtime. 3 Active oxybutynin (DITROPAN) 5 mg tablet Take [...] once daily. Active levETIRAcetam (KEPPRA) 500 mg tabletIndication s:Seizure prophylaxis Take 1 Tablet (500 mg) by mouth two times daily. 180 Tablet 11/22/2023 12:05 PM ASP NET DEVELOPER 4 Active warfarin (COUMADIN) 2 mg tabletIndication s:History of pulmonary embolus (PE) Take 2 Tablets (4 mg) by mouth every Sunday, Sunday and Sunday. Take 4 mg by mouth every Sunday, Sunday and Sunday. January resume 11/29 4 Active warfarin (COUMADIN) 2 mg tabletIndication s:History of pulmonary embolus (PE) Take 2 mg by mouth every Sunday, , Sunday and Sunday. January resume 11/30 4 Active Active Problems Problem Noted Date Diagnosed [...] at Not on file Legal Sex Male 2:56 PM ASP NET DEVELOPER Gender Identity Not on file Sexual Orientation Not on file Obstetrics History Last Filed Vital Signs Vital Sign Reading Time Taken Comments Blood Pressure 118/82 12/04/2023 1:30 PM ASP NET DEVELOPER Pulse 108 03/17/2024 1:02 PM CDT Temperature 36.6 C (97.9 F) 03/17/2024 1:02 PM CDT Respiratory Rate 17 03/17/2024 1:02 PM CDT Oxygen Saturation 96% 03/17/2024 1:02 PM CDT Inhaled Oxygen Concentration - - Weight 86.2 kg (190 lb) 11/20/2023 6:47 AM ASP NET DEVELOPER Height 182.9 cm (6') 11/20/2023 6:47 AM ASP NET DEVELOPER Body Mass Index 25.77 11/20/2023 6:47 AM ASP NET DEVELOPER Plan of Treatment Health Maintenance Due Date Last Done Comments Tdap 1969 Depression screening for age 12+ 1970 Hepatitis C screening for age 18-79 1976 Tetanus booster 1978 Colonoscopy through age 75 2003 Lipids for age 45-75 2003 Pneumococcal series for age 50+ (1 of 1 - PCV) 2008 Zoster (shingles) series for age 50+ (1 of 2) 2008 BMI (ht and wt on same day) for age 18+ 02/12/2019 02/12/2018 AAA screening age 65-74 2023 Medicare Wellness for age 65+ 2023 COVID-19 vaccine series ( season) 2024 09/09/2021, 12/29/2020, 12/08/2020 Influenza Vaccine (#1) 2024 RSV vaccine for adults or pr egnancy (1 - 1-dose 75+ series) 2033 Medical Devices Implanted Type Area Negotiations Director Device Identifier Shelf Expiration Date Model / Serial / Lot Stent Uret [id number] Percuflex Hydroplus - [id number] Implanted:Qty: 1 on 03/04/2018 by Jordi Piedra MD at [facility] Right: Ureter [facility] Urology 07/29/2020 [id number]# / / [id number] Stent Uret [id number] Percuflex Hydroplus - [id number] Implanted:Qty: 1 on 08/01/2019 by Jordi Piedra MD at [facility] Right: Ureter [facility] Urology 02/23/2022 [id number]# / / [id number] Stent Uret [id number] Percuflex Hydroplus - [id number] Implanted:Qty: 1 on 10/16/2023 by Osito Pate MD at [facility] Right: Ureter [facility] Urology 03/23/2026 [id number] / / [id number] Dura Neuro 2x2in Duragen Plusnon-Sut - [id number] Implanted:Qty: 1 on 11/20/2023 by Jevon Trejo MD at [facility] Cranium Integra [employer] Sigifredo 06/30/2026 [id number] / / [id number] Screw Neuro 4mm Matrixneuro Slf Drill Titnm - [id number] Implanted:Qty: 6 on 11/20/2023 by Jevon Trejo MD at [facility] Cranium J And J Depuy CMF [id number] 4.01 / / Plate Facial 70x1.5mm Synthes Midface Mesh Contourable - [id number] Implanted:Qty: 1 on 11/20/2023 by Jevon Trejo MD at [facility] Cranium J And J Depuy [facility] [id number] / / Insurance MEDICARE PART B HB ONLY MEDICARE PART A HB ONLY MEDICARE PB ONLY [facility] Advance Directives * Full Code (Latest Code [...] 5:50 AM 03/04/2018 1:54 PM Care Teams Government Affairs Researcher Relationship Specialty Start Date End Date Hang Carpenter PCP - General Family Practice 09/01/15
--- OUTSIDE RECORDS SUMMARY | 2024-12-13 15:45 | XMS_ITS | Encounter Summary ---
Author Organization [facility] er Address [address] [place] [address] Care Team Providers Care Corporation Lawyer Name Role Phone Wade Donovan MD Primary Care Provider [phone] Encounter Details Date Type Department Care Team (Late st Contact Info) Description 08/07/2019 Telephone [place] [address] [place] [address] Adarsh Carpenter MD Social History Tobacco Use [...] Family Three times a week 08/11/2019 Attends [employer] Services Never 08/11 Active Member of Clubs [...] Answer Date Recorded PHQ-2 Score 9 08/11/2019 [facility] of Occupat ional Health - Occupational Stress [...] Info) Description 12/23/2024 11:30 AM CDT Appointment [facility] MRI [address] [place] [address] 12/30/2024 2:00 PM CDT Office Visit [facility] Urology [address] [place] [address] Bryce Jack MD [address] [place] [address] 02/03/2025 11:00 AM CDT Office Visit [facility] [address] [place] [address] Selena Iraheta MD 210 [place] [phone] 03/23/2025 1:00 PM CDT Office Visit [facility] Neurology [address] [place] [address] Maria Fernanda Campoverde MD [address] [place] [address] [phone] documented as of this encounter Visit Diagnoses Not on filedocumented in this encounter Additional Health Concerns Infection Onset Date Last Indicated Resolved Time MSSA 10/04/2018 10/04/2018 06/28/2022 8:27 AM CDT MSSA 06/19/2023 07/04/2023 07/17/2023 2:29 PM CDT MSSA 08/02/2023 08/02/2023 documented as of this encounter Care Teams Corporation Lawyer Relationship Specialty Start Date End Date Wade Donovan MD 1705 [facility] 20 [place] [address] PCP - General Family Medicine 02/05/24 documented as of this encounter
== END 2024-12-13 16:14 | disposition home or self-care (01) ==
LOC: ED 15:42
PROVIDERS: Emergency Provider Emergency Medicine; PCP Family Medicine
DX: S00.03XA Contusion of scalp, initial encounter (principal)
CPT/HCPCS: 36415; 70450; 72125; 80048; 85025; 85610; 99283; 99284

== ENCOUNTER 2024-12-24 10:56 | Outpatient (CLI) | payer MEDICARE, BC, SELFPAY ==
--- NOTE | 2024-12-24 11:00 | CRLHL7_ITS ---
For Patients: As a result of the Century Cures Act, medical imaging exams and procedure reports are released immediately into your electronic medical record. You may view this report before your referring provider. If you have questions, please contact your health care provider. INDICATION: Recurrent UTI. TECHNIQUE: CT abdomen and pelvis without contrast. COMPARISON: None. FINDINGS: Lower chest: Mild bibasilar atelectasis. Liver: Normal in size and attenuation. No suspicious masses on a non-contrast exam . Gallbladder and bile ducts: No stones or inflammation. No biliary dilatation. Pancreas: Moderate fatty replacement of pancreas without duct dilatation. Spleen: Spleen is normal in size. Few calcified granulomas in the spleen. Adrenal glands: No suspicious mass. Kidneys: Bilateral kidneys are normal in size with lobulated margin. Right renal cysts are identified, measuring about 3 centimeter in size. There is large calculus within the right renal pelvis measuring 1.5 x 1.2 cm with ballooning of the renal pelvis. Additional nonobstructing right mid and lower pole nephrolithiasis with the largest in the lower pole measuring 4 millimeter. Bilateral ureters are decompressed. No ureteral calculi. No hydronephrosis on either side. Urinary bladder is minimally distended with the circumferential wall thickening. Suggestion of multiple data diverticulum with wall calcification/small bladder calculi. GI tract: No bowel obstruction. Normal appendix. Vasculature: Abdominal aorta is normal in caliber. Disease of the aorta. Mild atherosclerotic Lymph nodes: No lymphadenopathy. Peritoneum/Abdominal Wall: No free air or significant free fluid. Pelvis: Prostatomegaly measuring 5.3 cm with intra prostatic calcifications. Bones: Multilevel degenerative changes of the spine. Vacuum disc is identified at L5-S1 level. No concerning bony lesion. IMPRESSION: 1. Large calculus within the right renal pelvis causing dilatation of the right renal pelvis. Additional nonobstructing right nephrolithiasis. No hydronephrosis or obstructing ureteric calculi. 2. Circumferential wall thickening with trabeculated appearance of the urinary bladder. Multiple small internal bladder calculi/bladder wall calcification. Findings are concerning overall for chronic cystitis. Consider further evaluation with renal ultrasound if clinically required and correlation with urine analysis. 3. Prostatomegaly. Please note that all CT scans at this facility use dose modulation, iterative reconstruction, and/or weight-based dosing when appropriate to reduce radiation dose to as low as reasonably achievable. Dictated by Naun Vargas MD @ 12/25/2024 10:18:00 AM (Electronically Signed)
== END 2024-12-24 10:57 | disposition home or self-care (01) ==
LOC: CT 10:58
PROVIDERS: PCP Family Medicine; Visit Provider Urology
DX: N39.0 Urinary tract infection, site not specified (principal); N21.0 Calculus in bladder; N20.0 Calculus of kidney; N40.0 Benign prostatic hyperplasia without lower urinary tract symptoms
CPT/HCPCS: 74176

== ENCOUNTER 2025-04-27 17:22 | Inpatient (IN) | payer MEDICARE, BC, SELFPAY ==
--- OUTSIDE RECORDS SUMMARY | 2025-03-02 08:40 | XMS_ITS | Encounter Summary ---
Author Organization [facility] er Address [address] [place] [address]75 Care Team Providers Care Manager Reporting Name Role Phone Wade Donovan MD Primary Care Provider [phone] Reason for Referral * Consultation (Routine) - Authorized Specialty Diagnoses / Procedures Referred By Contac t Referred To Contact Electronic Specialist Diagnoses Multiple sclerosis (HCC) Wade Donovan MD [address] [place] [address] Phone: tel: fax: [facility] Electronic Specialist [address] [place] [address] Phone: tel: fax: Referral ID Status Reason Start Date Expiration Date V isits Requested Visits Authorized [id number] Authorized 03/24/2025 03/24/2026 1 1 Encounter Details Date Type Department Care Team (Latest Contact Info) Description 03/02/2025 8:40 AM CDT Patient Outreach [facility] Coordination [address] [place] [address] Demario Hodge, RN [address] [place] [address] Counseling and coordination of care (Primary Dx); Multiple sclerosis (HCC); Moderate episode of recurrent major depressive disorder (HCC); Mixed hyperlipidemia Social History Tobacco Use Types [...] from your doctor or pharmacy? Always 11/25/2024 [facility] Utilities Answer Date Recorded In the past 12 months has e [employer], oil, or water [employer] threatened to shut off services in your [...] Answer Date Recorded PHQ-9 Total Score 0 02/24/2025 [facility]ational Stress Questionnaire [...] slept in a halfway (including now)? No 11/07/2023 Housing Stability Vital Sign Answer Jose e Recorded In the last 12 months, was t here a time when you were not able to pay the mortgage or rent on time? No 11/25/2024 In the past 12 months, how m any times have you moved where you were living? 0 11/25/2024 At any time in the past 12 m onths, were you homeless or living in a halfway (including now)? No 11/25/2024 Interpersonal Safety Questionnaire [...] as of this encounter Progress Notes * Demario Hodge RN - 03/02/2025 8:40 AM CDT Chronic Care Management Date: 03/04/2025 4:01 PM Author: Demario Hodge RN Called and spoke to Deb. Bartlett is getting admitted to the hospital today for urology surgery he is having on Sunday. Left message with radiology to see if images were received from [facility] of CT of head in August and November Resources for Caregiver support put into letter to be mailed out along with the [facility] Resource Guide. Time added: Time spent with patient (minutes): 4 Time spent performing chart review (minutes): 45 * Demario Hodge RN - 03/02/2025 8:40 AM CDT Chronic Care Management Date: 03/06/2025 3:31 PM Author: Demario Hodge RN Attempted to reach radiology again. Not available. Will attempt again early next week. Time added: Time spent with patient (minutes): 0 Time spent performing chart review (minutes): 5 * Demario Hodge RN - 03/02/2025 8:40 AM CDT Chronic Care Management Date: 03/10/2025 11:06 AM Author: Demario Hodge RN Called and spoke to [facility] radiology. No ROB or imaging was received from [facility]. Then called and spoke to ENT-records were received on 02/04/[address] but no imaging. Left message to call back with Nelia to see if she can call [facility] to see if they need to sign release. Otherwise, radiology can request them if she and Dhruv want to come to [facility] radiology to sign the release form. Time added: Time spent with patient (minutes): 0 Time spent performing chart review (minutes): 15 * Demario Hodge RN - 03/02/2025 8:40 AM CDT Chronic Care Management Date: 03/24/2025 10:55 AM Author: Demario Hodge RN Still has not heard anything about ENT imaging. CC reached out to nurse-she spoke to [facility] radiology and was told a disk would be sent to [facility]-they don't have a contract to push images. Nelia was wondering what she needs to do to get POA. Per [facility] SS, and advanced directive can be filledout for this. Can request SS to come to to help fill out if needed. Will discuss with Nelia. Also per PCP, need to discuss palliative care referral. Spoke to Nelia again. She is open to AAS/palliative care referral. She does not feel she needs to discuss further with PCP. Pended in telephone encounter dated 03/24/25 Nelia has advanced directive paperwork at home and plans to fill out and get notarized at her bank. Encouraged her to reach out if she has questions. She is also aware CF clinic will notify when imaging arrives at clinic. Time added: Time spent with patient (minutes): 11 Time spent performing chart review (minutes): 25 * Carmen Sandoval RN - 03/02/2025 8:40 AM CDT Chronic Care Management Date: 03/27/2025 6:07 AM Author: Carmen Sandoval RN ER visit 03/26/2025 reviewed. Dhruv was evaluated at [facility] for 2 days of gross hematuria. Recommendations: conservative management with hydration. Follow up urine culture. If the patient clinically improves, no indication for antibiotics. 03/07/2025 @ 1420: Spoke with , Nelia, who states Dhruv is doing well. His urine remains dark despite him pushing fluids. Nelia inquires about outside images from [facility] - no new updates on whether or not thesehave been received are within EMR. No outside images scanned in. Time added: Time spent with patient (minutes): 3 Time spent performing chart review (minutes): 2 documented in this encounter Miscellaneous Notes * Addendum Note - Demario Hodge RN - 03/02/2025 8:40 AM CDTAddended by: DEMARIO HODGE on: 03/24/2025 01:38 PM Modules accepted: Orders documented in this encounter Plan of Treatment Upcoming Encounters Date Type Department Care Team (Late st Contact Info) Description 05/11/2025 4:00 PM CDT Office Visit [facility] [address] [place], [place] [phone] Kayleen Garcia MD [address] [place], [place] [phone] 05/12/2025 1:00 PM CDT Office Visit [facility] [address] [place] [address] Darwin Moreau MD [address] [place] [address] [phone] 05/21/2025 3:20 PM CDT Telemedicine Neurology [address] [place] [address] Maria Fernanda Campoverde MD [address] [place] [address] [phone] 08/19/2025 2:30 PM FILM PRODUCER Consult SE Endocrinology [address] [place] [address] [phone] Hazel Alvarez MBBS [address] [place] [address] [phone] 08/24/2025 8:20 AM FILM PRODUCER Telemedicine Neurology [address] [place] [phone] Maria Fernanda Campoverde MD [address] [place] [address] [phone] Scheduled Referrals Name Type Priority Associated Diagnoses Order Schedule Ambulatory referral to Medical Electronic Specialist: Resource and Referral Outpatient Referral Routine Multiple sclerosis (HCC) Ordered: 03/24/2025 documented as of this encounter Goals Goal Patient Goal Type Associated Problems Recent Progress Patient-Stated? Author Routine Health Management General No Demario Hodge, RN Note: Routine Health Management Care Team Patient Care Team: Wade Donovan MD as PCP - General (Family Medicine) Demario Hodge, RN as Senior Abap Developer (Family Medicine) Healthcare Directives Future Scheduled Appointments Future Appointments Date Time Provider Department Center 04/22/2025 10:20 AM Maria Fernanda Campoverde MD [facility] 05/11/2025 4:00 PM Kayleen Garcia MD [facility] 05/12/2025 1:00 PM Darwin Moreau MD [facility] 08/19/2025 2:30 PM Hazel [facility]varez [facility] Topic Date Due Pneumococcal Vaccine: 50+ Years (3 of 3 - PCV20 or PCV21) 08/27/2022 DTaP,Tdap,and Td Vaccines (3 - Td or Tdap) 02/27/2024 COVID-19 Vaccine (4 - season) 2024 Influenza Vaccine (1) 06/01/2025 Colorectal Cancer Screening 06/30/2025 Medicare Annual Wellness Visit (AWV) 11/25/2025 Fall Risk Performed 03/19/2026 Zoster Vaccines Completed HPV Vaccines Aged Out Notes: Neurological Management General No Demario Hodge, RN Note: Neurological Management Multiple sclerosis (HCC) 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 Donovan Blood pressure goal Less than 140/90 Recent blood pressures BP Readings from Last 3 Encounters: 03/23/25 112/79 03/19/25 127/84 02/24/25 (!) 126/97 Labs Lab Results Component Value Date CHOL 125 08/11/2024 HDL 31 (L) 08/11/2024 LDLCALC 78 08/11/2024 TRIG 81 08/11/2024 [facility] anticoag Clinic Lab Results Component Value Date INR 2.80 (A) 03/31/2025 INR 3.60 (A) 03/27/2025 INR 2.20 (A) 03/19/2025 Warfarin dosing per [facility] Anticoag Clinic Lifestyle management (diet and exercise) Notes: 04/02/25: going to be switching over to Eliquis from Coumadin. Having issues getting the rx. Nelia calling insurance documented as of this encounter Visit Diagnoses Diagnosis Counseling and coordination of care- Primary Multiple sclerosis (HCC) Multiple sclerosis Moderate episode of recurrent major depressive disorder (HCC) Mixed hyperlipidemia documented in this encounter Additional Health Concerns Infection Onset Date Last Indicated Resolved Time MSSA 08/02/2023 08/02/2023 documented as of this encounter Care Teams Manager Reporting Relationship Specialty Start Date End Date Wade Donovan MD [address] [place] [address] PCP - General Family Medicine 02/05/24 documented as of this encounter
--- OUTSIDE RECORDS SUMMARY | 2025-03-19 14:40 | XMS_ITS | Encounter Summary ---
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) Arm weakness Impaired range of motion of both shoulders Wade Donovan MD [address] [facility] [address] [place] [address] Phone: tel: fax: [address] [address] Phone: tel: Referral ID Status Reason Start Date Expiration Date V isits Requested Visits Authorized [id number] Authorized 03/19/2025 03/19/2026 1 1 * Consultation (Routine) - Authorized Specialty Diagnoses / Procedures Referred By Joan krause Referred To Contact Endocrinology Diagnoses Recurrent kidney stones Wade Donovan MD [address] [place] [address] Phone: tel: fax: Endocrinology [address] [place] [address] Phone: tel: fax: Referral ID Status Reason Start Date Expiration Date Visits Requested Visits Authorized [id number] Authorized Specialty Services Required 03/19/2025 03/19/2026 1 1 Scheduling Instructions Please call the Endocrinology Import Export Manager desk at [phone] to schedule an appointment. Reason for Visit * Reason Comments TCM Follow-up Discharge date 5 from [facility]. Kidney stones. 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 Always 11/25/2024 [facility] Utilities Answer Date Recorded In the past 12 months has e [employer], gas, oil, or water [employer] threatened to shut off services in your [...] Date Recorded PHQ-9 Total Score 0 02/24/2025 [facility] Occupat ional [facility] - Occupational Stress [...] slept in a snf (including now)? No 11/07/2023 Housing Stability Vital Sign Answer Jose e Recorded In the last 12 months, was t here a time when you were not able to pay the mortgage or rent on time? No 11/25/2024 In the past 12 months, how m any times have you moved where you were living? 0 11/25/2024 At any time in the past 12 m [facility], were you homeless or living in a snf (including now)? No 11/25/2024 Interpersonal Safety Questionnaire [...] Sign Reading Time Taken Comments Blood Pressure 127/84 03/19/2025 2:54 PM CDT Pulse 100 03/19/2025 2:54 PM CDT Temperature 36.2 C (97.2 F) 03/19/2025 2:54 PM CDT Respiratory Rate 18 03/19/2025 2:54 PM CDT Oxygen Saturation 90% 03/19/2025 2:54 PM CDT Inhaled Oxygen Concentration - - Weight 87.1 kg (192 lb) 03/19/2025 2:54 PM CDT Height - - Body Mass Index 25.33 01/06/2025 1:36 PM CDT documented in this encounter Patient Instructions * Attachments The following attachments cannot be sent through Care Everywhere. * Dietary Guidelines to Help Prevent Kidney Stones ([place]) documented in this encounter Progress Notes * Wade Donovan MD - 03/19/2025 2:40 PM CDT Transitional Care Management TCM VISIT TYPE: Bwng-et-Spwc Visit Subjective Patient ID: Dwain Hinds is a 64 y.o. male, who presents today for follow-up on his recent hospitalization. S/p Lithotripsy with calyxo and ureteral stent placement 03/07/25. Admission Date: 03/04/25 Discharge Date: 03/08/25 Discharging Facility: [facility] Discharge Diagnoses: nephrolithiasis with ureteroscopy with lithotripsy Communication attempted with patient and/or caregiver within 2 business days of discharge. No data recorded Chief Complaint Patient presents with TCM Follow-up Discharge date 03/08/25 from [facility]. Kidney stones. History of Present Illness The patient presents for evaluation of kidney stones and fatigue. Recently diagnosed with a large kidney stone during a routine follow up CT scan with Urology, necessitating hospitalization for removal. The patient was admitted 2 days early to regulate INR. They have a history of similar stones and underwent a 24-hour urine collection test 3-4 years ago at [facility]. There was no consultation with an energy crop farmer that they recall. The patient completed a Levaquin regimen and has a follow-up CT scan scheduled for Sunday, with a telephonic consultation with a urologist on Sunday. They consulted a chip tuner 1-2 months ago for stone preventive measures. Vitamin D supplementation was discussed, and is on once weekly vitamin D 2000 U supplementation. The patient has been experiencing intermittent fatigue since surgery, which they attribute to hot weather. INR levels are monitored at home biweekly, with the last reading being 1.6 on 03/09/2025. Warfarin therapy is managed by the anticoagulation clinic in [place]. The patient uses a portable INR testing machine and reports to the clinic. They contacted the coagulation clinic post-discharge due to antibiotic concerns, resulting in a temporary medication adjustment. The patient is having difficulty holding their head up and has noticed a decline in upper extremitystrength and function. There is no neck pain, but they are feeling weaker. There is no associated pain. The patient is right-handed and has switched joystick use to the right hand due to the condition. They have not had any recent physical therapy. 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 History of similar mixed-type calcium stones. Increased fatigue sincesurgery suspected by Nelia, but Dhruv says feels fine; she suspects hot weather playing a part. Follow-up CT scan scheduled for 03/23/2025, telephonic consultation with urologist on 03/24/2025. Referral to energy crop farmer for further evaluation. Handout on diet for stone prevention. Advised to consume calcium-rich foods when taking oxalate- containing foods to reduce oxalate absorption. - Follow-up CT scan scheduled for 03/23/2025. - Telephonic consultation with urologist on 03/24/2025. - Referral to energy crop farmer for further evaluation and recommendations on stone prevention measures. Anticoagulation management: INR last checked on 03/09/2025, reading 1.6. Regular warfarin schedule managed by anticoagulation clinic in [place]. Advised to check INR upon returning home and inform us of the result. - Advised to check INR upon returning home and inform us of the result. Physical therapy: MS and paraplegia. Concerns about neck and UE weakness. Referral for physical therapy initiated. PT department will contact to schedule sessions. - Referral for physical therapy initiated. Results - Laboratory Studies: - INR: 1.6 (03/09/2025) - Diagnostic Testing: - Kidney stone composition: - Calcium phosphate: 60% - Calcium oxalate dihydrate: 20% - Calcium oxalate monohydrate: 20% Procedure Note Wayne Arambula M.D., Ph.D. - 03/07/2025 EXAM: CT ABDOMEN PELVIS WITHOUT IV CONTRAST COMPARISON: CT abdomen and pelvis 12/24/2024 FINDINGS: Since 12/24/2024, interval changes of right lithotripsy and placement of a right double-J ureteral stent. A triangular shaped renal stone in the mid right kidney measures 0.9 cm. Two closely approximated renal stones/debris in the right lower pole measure 0.5 and 0.3 cm (series 5, image 75). An amorphous area of increased density in the right renal pelvis measuring up to 1.4 cm and likely represents a combination of renal calculi and debris, corresponding with a previously seen 1.4 cm calculus at the right UPJ on 12/24/2024. Mild dilation of the right renal pelvis. Stable exophytic right renal cysts. No left renal or ureteral calculi. No left-sided hydronephrosis. Decompressed bladder accentuates diffuse moderate bladder wall thickening with perivesical stranding. Saenz catheter in place. Multiple calculi in the bladder lumen/wall are similar compared to prior, the largest in the anterior bladder wall measuring 0.7 cm. Within the limitations of this noncontrast study, normal appearing liver and gallbladder. Calcifiedsplenic granulomas. Mild fatty atrophy of the pancreatic parenchyma. Normal-appearing adrenal glands bilaterally. Mild gaseous distended sigmoid colon measuring up to 6.0 cm. Otherwise normal caliber small and large intestine. No adenopathy in the abdomen and pelvis. Vascular calcifications. Apparent mild celiac artery ectasia. Fixation hardware left ulna. Degenerative changes of the spine. Stable mild retrolisthesis of L5on S1. No aggressive appearing osseous lesions. Bibasilar atelectasis. IMPRESSION: 1. Interval postoperative changes of right lithotripsy and ureteral stent placement. Multiple residual right renal calculi/debris, including an amorphous calculus in the right renal pelvis. 2. Inflammatory bladder changes compatible with chronic cystitis. documented in this encounter Plan of Treatment Upcoming Encounters Date Type Department Care Team (Late st Contact Info) Description 05/11/2025 4:00 PM CDT Office Visit [facility] [address] [place] [phone] Kayleen Garcia MD [address] [place] [address] [phone] 05/12/2025 1:00 PM CDT Office Visit [facility] [address] [place] [address] [phone] Darwin Moreau MD [address] [place] [phone] 05/21/2025 3:20 PM CDT [facility] [address] [place] [address] [phone] Maria Fernanda Campoverde MD [address] [place] [address] 08/19/2025 2:30 PM GOLD LEAF GILDER Consult [facility] [address] [place] [address] [phone] Hazel Alvarez MBBS [address] [place] [address] [phone] 08/24/2025 8:20 AM GOLD LEAF GILDER [facility] [address] [place] [address] Maria Fernanda Campoverde MD [address] [place] [address] Scheduled Referrals Name Type Priority Associated Diagnoses Order Schedule Ambulatory referral to Endocrinology Outpatient Referral Routine Recurrent kidney stones Ordered: 03/19/2025 Ambulatory Referral for External Physical Therapy Outpatient Referral Routine 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 Author Routine Health Management General No Leah Badillo, RN Note: Routine Health Management Care Team Patient Care Team: Wade Donovan MD as PCP - General (Family Medicine) Leah Badillo RN as Patrol Man (Family Medicine) Healthcare Directives Future Scheduled Appointments Future Appointments Date Time Provider Department Center 04/22/2025 10:20 AM Maria Fernanda Campoverde MD [facility] 05/11/2025 4:00 PM Kayleen Garcia MD [facility] 05/12/2025 1:00 PM Darwin Moreau MD [facility] 08/19/2025 2:30 PM Hazel Alvarez MBBS [facility] Health Maintenance Health Maintenance Topic Date Due Pneumococcal Vaccine: 50+ Years (3 of 3 - PCV20 or PCV21) 08/27/2022 DTaP,Tdap,and Td Vaccines (3 - Td or Tdap) 02/27/2024 COVID-19 Vaccine (4 - 2023- season) 2024 Influenza Vaccine (1) 06/01/2025 Colorectal Cancer Screening 06/30/2025 Medicare Annual Wellness Visit (AWV) 11/25/2025 Fall Risk Performed 03/19/2026 Zoster Vaccines Completed HPV Vaccines Aged Out Notes: Neurological Management General No Leah Badillo, RN Note: Neurological Management Multiple sclerosis (HCC) 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 Donovan Blood pressure goal Less than 140/90 Recent blood pressures BP Readings from Last 3 Encounters: 03/23/25 112/79 03/19/25 127/84 02/24/25 (!) 126/97 Labs Lab Results Component Value Date CHOL 125 08/11/2024 HDL 31 (L) 08/11/2024 LDLCALC 78 08/11/2024 TRIG 81 08/11/2024 [facility] Results Component Value Date INR 2.80 (A) 03/31/2025 INR 3.60 (A) 03/27/2025 INR 2.20 (A) 03/19/[address] [facility] Lifestyle management (diet and exercise) Notes: 04/02/25: going to be switching over to Eliquis from Coumadin. Having issues getting the rx. 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
--- OUTSIDE RECORDS SUMMARY | 2025-03-23 08:53 | XMS_ITS | Encounter Summary ---
Author Organization [facility] Address [address] [place] [id number] Care Team Providers Care Tightener Name Role Phone Elsewhere, Pcp Primary Care Provider Unavailabl e Reason for Referral * MRI/CAT/PET Scan (Routine) - Closed Specialty Diagnoses / Procedures Referred By Contac t Referred To Contact Radiology Diagnoses Nephrolithiasis Procedures CT Abdomen Pelvis without IV Contrast Carroll Johnson M.D. [address] [place] [phone] Phone: tel: fax: [facility] Region Referral ID Status Reason Start Date Expiration Date Visits Re quested Visits Authorized [id number] Closed 03/07/2025 06/07/2026 1 1 Reason for Visit * MRI/CAT/PET Scan (Routine) - Closed Specialty Diagnoses / Procedures Referred By Contac t Referred To Contact Radiology Diagnoses Nephrolithiasis Procedures CT Abdomen Pelvis without IV Contrast Carroll Johnson M.D. 200 [place] [address] Phone: tel: fax: [facility] Region Referral ID Status Reason Start Date Expiration Date Visits Re quested Visits Authorized [id number] Closed 03/07/2025 06/07/2026 1 1 Encounter Details Date Type Department Care Team (Latest Contact Info) Description 03/23/2025 8:53 AM CDT - 03/23/2025 11:59 PM CDT Hospital Encounter Department of Radiology in [address] [phone] Carroll Johnson M.D. [address] [place] [address] Nephrolithiasis Discharge Disposition: Home or Self Care Social History Tobacco Use Types Packs/Day Years Used Date Smoking Tobacco: Former Cigarettes Passive Smoke Exposure: Current Smokeless Tobacco: Former Chew Alcohol Use Standard Drinks/Week Comments No 0 (1 standard drink = 0.6 oz pur e alcohol) [facility] Utilities Answer Date Recorded In the past 12 months has e [employer], gas, oil, or water [employer] threatened to shut off services in your home? No 03/05/2025 Humiliation, Afraid, Rape, and Kick questionnair e Answer Date Recorded Within the last year, have y ou been afraid of your partner or ex-partner? No 03/05/2025 Within the last year, have y ou been humiliated or emotionally abused in other ways by your partner or ex-partner? No Within the last year, have y ou been kicked, hit, slapped, or otherwise physically hurt by your partner or ex-partner? No 03/05/2025 Within the last year, have y ou been raped or forced to have any kind of sexual activity by your partner or ex-partner? No 03/05/2025 Hunger Vital Sign Answer Date Recorded Within the past 12 months, y ou worried that your food would run out before you got the money to buy more. Never true 03/05/20 25 Within the past 12 months, t he food you bought just didn't last and you didn't have money to get more. Never true 03/05/2025 PRAPARE - Transportation Answer Date Re corded In the past 12 months, has l ack of transportation kept you from medical appointments or from getting medications? No 01/2025 In the past 12 months, has l ack of transportation kept you from meetings, work, or from getting things needed for daily living? No 03/05/2025 Housing Stability Answer Date Recorded What is your living situation today? I have a [facility] place to live 03/05/2025 Education Answer Date Recorded What is the highest level of school you have completed or the highest degree you have received? 12th grade 08/26/2019 Sex and Gender Information Value Date Recorded Sex Assigned at Not on file Legal Sex Male 4:48 AM [employer] Gender Identity Not on file Sexual Orientation Not on file documented as of this encounter Medications at Time of Discharge acetaminophen (TylenoL) 500 mg tablet Take 2 tablets (1,000 mg total) by mouth every 6 (six) hours as needed for pain or fever. First line medication for pain. Do not exceed 4,000 mg of acetaminophen in a day from all sources. 03/07/2025 atorvastatin (Lipitor) 20 mg tablet Take 1 tablet by mouth at bedtime. 10/30/2022 baclofen (LioresaL) 20 mg tablet Take 1 tablet by mouth 3 (three) times a day. 09/01/2024 cholecalciferol (Vitamin D3) 50 mcg (2,000 Unit) tablet Take 2,000 Units by mouth once a week. 09/02/2024 ketoconazole (Nizoral) 2 % shampoo Apply 1 Application topically as needed for dandruff. 08/14/2024 methenamine (Hiprex) 1 gram tablet Take 1 g by mouth 2 (two) times a day. 12/02/2024 olopatadine (Pataday) 0.2 % ophthalmic solution Administer 1 drop into affected eye(s) daily. oxyBUTYnin (Ditropan) 5 mg tablet Take 1 tablet by mouth 2 (two) times a day. 03/11/2024 sennosides 25 mg tablet Take 25 mg by mouth daily. 10/16/2019 warfarin (Jantoven) 2 mg tablet Take warfarin 2 mg by mouth daily. This is a dose reduction from your usual home dose since the antibiotics you were prescribed after surgery can make you more sensitive to the effects of warfarin. Please follow-up with managing provider and check INR on Sunday03/09/2025 if possible. 03/07/2025 documented as of this encounter Plan of Treatment Upcoming Encounters Date Type Department Care Team (Latest Contact Info) Description 05/01/2025 11:30 AM CDT Appointment Department of Laboratory Medicine in [address] [phone] Bill Pacheco M.D. [address] [place] [phone] 05/01/2025 1:15 PM CDT Clinical Support Division of Allergic Diseases in [place], [place] [address] [place] [phone] Simi Hart MPAS, P.A.-C. [address] [place] [phone] 05/01/2025 2:00 PM CDT Comprehensive Visit Division of Allergic Diseases in [place], [place] [address] [place] [phone] Darwin Martinez M.D., Ph.D. [address] [place] [phone] 05/15/2025 2:23 PM CDT Hospital Encounter [facility] Bed Planning Bill Pacheco M.D. [address] [place] [phone] 05/15/2025 2:23 PM CDT - 05/15/2025 4:26 PM CDT Surgery [facility] [address] [place] [address] Bill Pacheco M.D. [address] [place] [phone] URETEROSCOPY WITH LASER LITHOTRIPSY,WITH CALYXO, PROCEED INDICATED Scheduled Procedures Name Priority Associated Diagnoses Date/Ti me URETEROSCOPY WITH LASER LITHOTRIPSY Nephrolithiasis 05/15/2025 2:23 PM CDT EXCHANGE URETERAL STENT Nephrolithiasis 05/15/2025 2:23 PM CDT documented as of this encounter Procedures Procedure Name Priority Date/Time Associated Diagnosis Comments CT ABDOMEN PELVIS WITHOUT IV CONTRAST RAD - Routine (most inpatients and all outpatients) 03/23/2025 9:21 AM CDT Nephrolithiasis documented in this encounter Results * CT Abdomen Pelvis without IV Contrast (03/23/2025 9:21 AM CDT) Anatomical Region Laterality Modality Abdomen, Pelvis, Abdominal R ST LOS, Abdominal ARZ LOS, Abdominal FLA LOS N/A Computed Tomography Impressions 03/23/2025 9:32 AM CDT 1. Right-sided nephroureteral stent present in stable/expected position. 2. Multiple renal calculi observed throughout the right renal collecting systems and urinary bladder with improvement in renal pelvic stone burden from preceding CT. 3. Several additional stable findings as above. Narrative 03/23/2025 9:32 AM CDT EXAM: CT ABDOMEN PELVIS WITHOUT IV CONTRAST COMPARISON: CT 03/07/2025. FINDINGS: At the lung bases, dependent changes of atelectasis. No consolidation or pleural abnormality. Cardiac size stable. No pericardial effusion. Unenhanced appearance of the liver without focal abnormality. No biliary ductal dilatation. Normal appearance to the gallbladder. Scattered splenic granulomata, otherwise unremarkable. Fatty infiltration of pancreas, stable. Unchanged adrenal glands. --Right-sided nephroureteral stent with proximal and distal formed loops present in stable position from prior. Dilatation of the right renal pelvis, similar in appearance to prior examination. Nonobstructing stones observed within the upper pole, interpolar, and lower pole calyces of the right kidney are again noted appearing similar to prior. Small layering stone fragments are seen within the renal pelvis, improved from prior. --On the left, no hydronephrosis. Punctate upper pole calculi. --Urinary bladder is thick-walled and trabeculated with multiple diverticula. Several calcifications within the diverticula as well as dependently within the bladder lumen. Saenz catheter removed in the interval from prior. Heterogeneous prostate enlargement with dystrophic calcifications. No abnormal bowel wall thickening or dilatation. No bowel obstruction or free intraperitoneal gas. Normal appendix. Moderate diffuse aortic arterial calcifications without evidence of aortic aneurysmal dilatation. Unchanged dilatation of the celiac artery. No adenopathy. Multilevel spondylosis with multiple small Schmorl's nodes observed throughout the imaged thoracic and lumbar spine. 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 Procedure Note Osito Kenyon M.D. - 03/23/2025 EXAM: CT ABDOMEN PELVIS WITHOUT IV CONTRAST COMPARISON: CT 03/07/2025. FINDINGS: At the lung bases, dependent changes of atelectasis. No consolidation orpleural abnormality. Cardiac size stable. No pericardial effusion. Unenhanced appearance of the liver without focal abnormality. No biliaryductal dilatation. Normal appearance to the gallbladder. Scattered splenic granulomata, otherwise unremarkable. Fatty infiltrationof pancreas, stable. Unchanged adrenal glands. --Right-sided nephroureteral stent with proximal and distal formed loopspresent in stable position from prior. Dilatation of the right renalpelvis, similar in appearance to prior examination. Nonobstructing stonesobserved within the upper pole, interpolar, and lower pole calyces of the right kidney are again notedappearing similar to prior. Small layering stone fragments are seen withinthe renal pelvis, improved from prior. --On the left, no hydronephrosis. Punctate upper pole calculi. --Urinary bladder is thick-walled and trabeculated with multiplediverticula. Several calcifications within the diverticula as well asdependently within the bladder lumen. Saenz catheter removed in theinterval from prior. Heterogeneous prostate enlargement with dystrophic calcifications. No abnormal bowel wall thickening or dilatation. No bowel obstruction orfree intraperitoneal gas. Normal appendix. Moderate diffuse aortic arterial calcifications without evidence of aorticaneurysmal dilatation. Unchanged dilatation of the celiac artery. Noadenopathy. Multilevel spondylosis with multiple small Schmorl's nodes observedthroughout the imaged thoracic and lumbar spine. 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 IMPRESSION: 1. Right-sided nephroureteral stent present in stable/expected position. 2. Multiple renal calculi observed throughout the right renal collectingsystems and urinary bladder with improvement in renal pelvic stone burdenfrom preceding CT. 3. Several additional stable findings as above. Carroll FERNANDEZ CT PROCEDURES Final Resul t documented in this encounter Visit Diagnoses Diagnosis Nephrolithiasis Nephrolithiasis documented in this encounter Care Teams Tightener Relationship Specialty Start Date End Date Elsewhere, Pcp PCP - General Family Medicine 09/06/17 documented as of this encounter
--- OUTSIDE RECORDS SUMMARY | 2025-03-23 13:00 | XMS_ITS | Encounter Summary ---
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 [address] Phone: tel: fax: Referral ID Status Reason Start Date Expiration Date V isits Requested Visits Authorized [id number] Authorized 03/23/2025 03/23/2026 1 1 Reason for Visit * Reason Comments Consult * Consultation (Routine) - Authorized Specialty Diagnoses / Procedures Referred By Joan t Referred To Contact Neurology Diagnoses Multiple sclerosis (HCC) Internal auditory canal abnormality S/P resection of meningioma Wade Donovan MD [address] [place] [address] Phone: tel: fax: Neurology [address] [place] [address] Phone: tel: fax: Referral ID Status Reason Start Date Expiration Date Visits Requested Visits Authorized [id number] Authorized Specialty Services Required 11/25/2024 11/25/2025 1 1 Encounter Details Date Type Department Care Team (Late st Contact Info) Description 03/23/2025 1:00 PM CDT Office Visit [facility] [address] [place] [address] Maria Fernanda Campoverde MD [address] [place] [address] 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 Always 11/25/2024 [facility] Utilities Answer Date Recorded In the past 12 months has [facility] [employer], gas, oil, or water [employer] threatened to shut off services in your [...] often do you attend chur ch or orthodox services? 1 to 4 times per year 11/25/2024 Do you belong to any clubs o r organizations such as methodist groups, unions, fraternal [...] Date Recorded PHQ-9 Total Score 0 02/24/2025 [facility] - Occupational Stress Questionnaire Answer Date [...] in a retirement (including now)? No 11/07/2023 Housing Stability Vital Sign Answer Jose e Recorded In the last 12 months, was t here a time when you were not able to pay the mortgage or rent on time? No 11/25/2024 In the past 12 months, how m any times have you moved where you were living? 0 11/25/2024 At any time in the past 12 m [facility], were you homeless or living in a retirement (including now)? No 11/25/2024 Interpersonal Safety Questionnaire Answer Date Recorded How often does anyone, [place] family and friends, physically hurt you? Never 11/25/2024 How often does anyone, loki chela family and friends, insult or talk down to you? Never 11/25/2024 How often does anyone, loki ding family and friends, threaten you with harm? Never 11/25/2024 How often does anyone, sararaciel ding family and friends, threaten you with [...] Sign Reading Time Taken Comments Blood Pressure 112/79 03/23/2025 12:58 PM CDT Pulse 99 03/23/2025 12:58 PM CDT Temperature 36.2 C (97.1 F) 03/23/2025 12:58 PM CDT Respiratory Rate 16 03/23/2025 12:58 PM CDT Oxygen Saturation - - Inhaled Oxygen Concentration - - Weight - - Height - - Body Mass Index - - documented in this encounter Progress Notes * Maria Fernanda Campoverde MD - 03/23/2025 1:00 PM CDT Subjective HISTORY OF PRESENT ILLNESS Dwain Hinds is a right-handed 64 y.o. male who is referred by Wade Donovan MD for multiple sclerosis. The patient is accompanied by his Nelia and daughter Kera. Since his last neurology visit in 2019, he has had slow progressive decline with particularly worsening noticed around Krum time with further decline in memory and right hand function. Recently had a large kidney stone that underwent planned surgical removal. His notes he is losing motivation and any hand weakness requires assistance with feeding and brushing teeth. She is working diligently to continue In-N-Out catheterizations and management of his bowels, noting constipation that responds poorly to medications. 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 CHART REVIEW Saw Dr. Caroline Lehman and Juan moya [facility] on 08/26/2019 for secondary progressive MS His medical history of a pulmonary embolus, pneumonia, recurrent urosepsis and depression in addition to secondary progressive multiple sclerosis. He has a complicated neurologic history. -He had an episode of optic neuritis in the in his left eye per report. 2000-developed progressive gait decline 2004-noted to have a right hemiparesis and evaluated [facility] with a CSF positive for oligoclonal bands and MRIs consistent multiple sclerosis. He was treated with mitoxantrone. 2009 began using a wheelchair He has a diagnosis of secondary progressive MS. He was last reviewed in the MS clinic by Dr. Peace in 2013. His disease onset was in the of optic neuritis. It is difficult for him to clarify which eye was affected, he thinks it was the left and the notes from Dr Valladares refer to a left eye being affected. He does not recall any pain with eye movements. He thinks this improved within the severalweeks. He saw an marble carver for this. He developed progressive gait decline in 2000. He was first evaluated at [facility] in 2004 for right hemiparesis. At this time he had an MRI of the brain and CSF which was positive for oligoclonal bands. He was commenced initially on mitoxantrone. In 2008 he was commenced on Rebif. In 2009 he wasusing a wheelchair and therefore disease modifying therapy was ceased as he was considered to be inthese progressive phase of disease. Currently he uses a wheelchair to mobilize. At home he has a trapeze which allows him to transferred to the bed, shower, toilet. He has no power in his lower limbs and therefore lies in his upper limb strength to perform these transfers. He is receiving home health twice a week and a shower a twicea week. These services were put in place after recent hospitalization for urosepsis after lithotripsy for kidney stones. He has a regular urologist whom he is following with and currently his urinaryretention is managed by intermittent catheterization. His is looking into respite care. They have had twice weekly occupational therapy and physical therapy since discharge but this has recentlyceased. The occupational therapist did assess the home for suitability. His reports that over the last 5 years the main changes she has seen our in poor memory, word finding, decreased ability to plan, loss of fine motor movements in the upper limbs, slurred speech.She reports he has had recurrent episodes of delirium with hospitalizations for urosepsis. He is anticoagulated for pulmonary embolus, but has not had any falls, fortunately. Dr. Marte's opinion He has secondary progressive multiple sclerosis. His MRIs have not revealedany enhancement dating back all the way to 2004. He has had recurrent episodes of urosepsis. I would be very concerned about the risk of immunosuppression with some of the newer medications aimed at progressive MS (such as Ocrelizumab or siponimod). Therefore, I recommended that they not pursue anyof these medications. They do have physical therapy and occupational therapy at home. They are working with there local doctors about his constipation. They understood our rationale about this and the fact that the risk benefit ratio would strongly favor not using the medication. I answered all herquestions to the best of my ability. Remyelinating antibodies are still in the research stage and not yet available. I reviewed Dr. Peace's phase 1 studies on this which showed good safety but itis not clear if phase 2 trials are ongoing. He was seated in a wheelchair for the examination. There was slight central pallor of the right optic nerve. There is no relative afferent pupillary defect. He had bilateral gaze evoked nystagmus. Hehas slowed adduction of the left eye, suggestive of a previous internuclear ophthalmoplegia. Remaining cranial nerves intact. Visual acuity was 10/15 S, 10/15-2 OD He had mildly increased tone in the upper limbs that improved relaxation suggesting that there was a component of paratonia. There was left-sided pyramidal weakness with shoulder abduction -2, elbow extension - 1, wrist extension -2. There is bilateral finger extensor weakness -3. Sensory at upper l imbs demonstrated reduced vibration sense and joint position sense -75%. He had intact pinprick sense. In the lower limbs there was markedly increased tone bilaterally. He had flexion contractures at the knee and ankle bilaterally. He had sustained clonus at the ankles. He had complete paraplegia. He had the slightest movement of the left toe. Reflexes are brisk +1 at the knees and ankles. He had a bilateral upgoing plantar response. Sensory examination revealed absent joint position and vibrationsense at the toes and ankles. Pinprick sense was intact. He had bilateral finger-nose ataxia and dysarthria. He had rebound and overshooting bilaterally in the upper limbs. His Kokmen examination was 31/38. I personally reviewed the patient's medical problems, medications, allergies, past surgical history, family history, and social history in the chart. Objective Blood pressure 112/79, pulse 99, temperature 36.2 ??C (97.1 ??F), temperature source Temporal, resp. rate 16. Physical Exam: Constitutional: well-developed, well-nourished HEENT: moist mucus membranes, excessive plaque buildup on teeth Cardiovascular: well-perfused extremities Respiratory: speaking full sentences, no increased work of breathing Musculoskeletal: normal bulk and tone, no edema Skin: no lesions or rashes Psychiatric: pleasant and cooperative, normal mood and affect Neurological Exam Higher cortical function: Alert. Family provides history. Exhibits insight into memory issues Kokmen Short Test of Mental Status: Orientation: 01/06 - oriented to self, city, state, tangential when talking about address because says street has been renamed, unable to tell me his house number, oriented to city but not [facility], says year is 2022, when first asked month he says August then 03 of April is coming up but then says March. Says day is (it is Sun) Attention: 02/04 Learnin/4 Registration: # of trials: 3 Calculation: Abstraction: 0/3 - extremely concrete and focuses on differences, not similarities despite prompting - skipped due to hand weakness Information: 11/04 [place], unable to produce a guess for # weeks in a year Recall: 0 Score: Was encephalopathic Sat and Sun from recent kidney stone, family indicates he is back to baseline now today. Able to participate in the conversation. Cranial nerves: Pupils are 4 mm each, poorly reactive to light bilaterally. Right optic disc palloron funduscopic exam. Right GHASSAN. Visual bradley normal. Face symmetric. Requires loud voice for hearing. Spastic dysarthria, but easy to understand speech. Symmetric palate elevation and tongue protrusion. Strength: Upper motor neuron pattern of mild weakness right upper limb, moderate weakness left upper limb, complete paralysis bilateral lower extremities with exception of ability to wiggle toes Tone: Spastic in bilateral upper and lower extremities, gets a sustained clonus in bilateral lower extremities when manipulating legs. Reflexes: Hyperreflexic in upper extremities. Did not test in lower extremities due to previously induced sustained clonus that was bothersome to the patient and family. Gait: Wheelchair-bound Assessment/Plan 1. Secondary progressive multiple sclerosis Over the last 6 years, there are no new medical options for secondary progressive multiple sclerosis without immunosuppressive side effects. His multiple sclerosis has now worsened involving both theright and left upper extremities with further cognitive deterioration. Also has bowel/bladder dysfun ction. His is doing an excellent job managing his multiple medical issues. - No disease modifying treatment recommendations - No surveillance MRI imaging required - Agree with taking vitamin D once weekly to avoid kidney stone side effects - Counseled on the role of physical therapy, unfortunately, the patient has significantly lost motivation to participate and he requires assistance with most/all IADLs and ADLs. Adherence to a regular home exercise program to maintain range of motion, prevent contractures, maintain muscle strength is medically recommended. However, they live in [place], leaving the house is challenging due to immobility and bathroom assistance requirements, and with both forgetfulness and lack of motivation, it may be more trouble than benefit - Discussed spasticity management. He is on baclofen 20 mg 3 times daily. He has daytime fatigue, so I would not recommend increasing the dose. His daughter asked about Botox for the spasticity she appreciates in the patient's neck and hands. His case is too complex for me to manage, referred to [facility] for second opinion on spasticity - Discussed cognitive impairment/fatigue. After his meningioma resection, he was on scheduled steroids with significant improvement in energy level leading to greater engagement with his family. Reasonable to trial modafinil 100 mg daily. Provided prescription and arranging 40-minute video visit toassess medication response. Counseled on side effects including rash, nausea, dizziness, headache, insomnia, anxiety, brandan, and cardiovascular side effects. - Discussed bowel/bladder, he already has established care with a urologist and his is well versed on medications to manage constipation. She tries to keep this scheduled but has found this verydifficult as his body does not seem to respond well to the laxatives. 2. Strokes On his March 17, 2024 MRI brain performed for post meningioma resection assessment, there were smallfoci of diffusion restriction in the left frontal centrum ovale and right occipital lobe. Chart review shows his INR was in the 2.1-3.2 range around that time, indicating therapeutic warfarin levels.The location and size of these strokes could indicate cardioembolic versus small vessel ischemic etiology. Subsequent MRI performed December 23, 2024 did not show any new strokes. 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 He requires lifelong therapeutic anticoagulation for history of severe pulmonary em bolism in the setting of limited mobility. - Recommend continuing therapeutic anticoagulation, discussed the potential risks and benefits of apixaban which I would recommend over warfarin especially since he wishes to have more freedom with his diet to eat fruits and vegetables, his will contact insurance to see if apixaban is affordable 3. Multifactorial cognitive impairment He scored 13/34 on Kokmen Short test of mental status today, in 2019 he scored a 31. His deterioration is most likely due to progression of multiple sclerosis in conjunction with the cardiovascular events. 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 The severity of his cognitive impairment necessitates further support for him at home. - Will contact primary care, may benefit from referral to active aging services both for palliativecare and resources to help with aging in place 4. History of left high medial frontal lobe meningioma measuring 21X 22X 11 mm status post surgicalresection November 2023 - He will continue to follow with Dr. Trejo with [facility] for annual check-in's with annual MRI 5. Small enhancing lesion in right internal auditory canal - Assessed by ENT, no further steps required at this time Patient will require complex longitudinal care for multiple serious neurological conditions. Diagnosis Plan 1. 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 Multiple sclerosis (HCC) Ambulatory External Referral [facility]; Physical Medicine and Rehab 3. Meningioma (HCC) 4. 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 Other fatigue modafinil (Provigil) 100 MG tablet I spent a total of 95 min preparing to see the patient, reviewing notes and test results, taking a patient history, performing a neurological exam, counseling the patient, and documenting today's interaction. * Wade Donovan MD - 03/23/2025 1:00 PM CDT Thanks for seeing them and for your helpful recommendations. I will reach out to them about furthersupport/ referrals. documented in this encounter Plan of Treatment Upcoming Encounters Date Type Department Care Team (Late st Contact Info) Description 05/11/2025 4:00 PM CDT Office Visit [facility] [address] [place], [place] [phone] Kayleen Garcia MD [address] [place], [place] [phone] 05/12/2025 1:00 PM CDT Office Visit [facility] [address] [place], [place] [phone] Darwin Moreau MD [address] [place] [phone] 05/21/2025 3:20 PM CDT Telemedicine Neurology [address] [place] [address] [phone] Maria Fernanda Campoverde MD [address] [place] [phone] 08/19/2025 2:30 PM HANDMADE TILE ARTIST Consult [facility] [address] [place] [address] [phone] Hazel Alvarez MBBS [address] [place] [address] [phone] 08/24/2025 8:20 AM HANDMADE TILE ARTIST Telemedicine Neurology [address] [place] [phone] Maria Fernanda Campoverde MD [address] [place] [phone] Scheduled Referrals Name Type Priority Associated Diagnoses Order Schedule Ambulatory External Referral [facility]; Physical Medicine and Rehab Outpatient Referral Routine Multiple sclerosis (HCC) 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 Author Routine Health Management General No Leah Badillo, RN Note: Routine Health Management Care Team Patient Care Team: Wade Donovan MD as PCP - General (Family Medicine) Leah Badillo, RN as Rectifying Operator (Family Medicine) Healthcare Directives Future Scheduled Appointments Future Appointments Date Time Provider Department Center 04/22/2025 10:20 AM Maria Fernanda Campoverde MD [facility] 05/11/2025 4:00 PM Kayleen Garcia MD [facility] 05/12/2025 1:00 PM Darwin Moreau MD [facility] 08/19/2025 2:30 PM Hazel Alvarez MBBS [facility] [place] [facility] Maintenance Health Maintenance Topic Date Due [...] 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 Neurology 03/23/25 Notes: Cardiovascular Management General On track( 025 3:20 PM CDT) No Leah Badillo, RN Note: Cardiovascular Management Hyperlipidemia LDL goal <100 Pulmonary embolism (HCC) Managed by (PCP; Cardiology; Anticoag Clinic) Dr. Donovan Blood pressure goal Less than 140/90 Recent blood pressures BP Readings from Last 3 Encounters: 03/23/25 112/79 03/19/25 127/84 02/24/25 (!) 126/97 Labs Lab Results Component Value Date CHOL 125 08/11/2024 HDL 31 (L) 08/11/2024 LDLCALC 78 08/11/2024 TRIG 81 08/11/2024 [facility] anticoag Clinic Lab Results Component Value Date INR 2.80 (A) 03/31/2025 INR 3.60 (A) 03/27/2025 INR 2.20 (A) 03/19/[address] [facility] Anticoag Clinic Lifestyle management (diet and exercise) Notes: 04/02/25: going to be switching over to Eliquis from Coumadin. Having issues getting the rx. 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
--- OUTSIDE RECORDS SUMMARY | 2025-03-24 08:00 | XMS_ITS | Encounter Summary ---
Author Organization [facility] Address [address] [place] [id number] Care Team Providers Care Curb Setter Name Role Phone Elsewhere, Pcp Primary Care Provider Unavailabl e Reason for Visit * Outpatient (Routine) - Closed Specialty Diagnoses / Procedures Referred By Joan kruase Referred To Contact Urology Carroll Johnson M.D. [address] [place] [phone] Phone: tel: fax: Bill Pacheco M.D. [address] [place] [phone] Phone: tel: fax: Referral ID Status Reason Start Date Expiration Date Visits Re quested Visits Authorized [id number] Closed 03/07/2025 09/06/2026 1 1 Encounter Details Date Type Department Care Team (Late st Contact Info) Description 03/24/2025 8:00 AM CDT Virtual Visit Department of Urology in [place], [place] [address] [place] [phone] Bill Pacheco M.D. [address] [place] [phone] Social History Tobacco Use Types Packs/Day Years Used Date Smoking Tobacco: Former Cigarettes Passive Smoke Exposure: Current Smokeless Tobacco: Former Chew Alcohol Use Standard Drinks/Week Comments No 0 (1 standard drink = 0.6 oz pur e alcohol) [facility] Utilities Answer Date Recorded In the [...] money to buy more. Never true 03/05/20 Within the past 12 months, t he [...] your living situation today? I have [facility] [employer] [facility] to live 03/05/2025 Education Answer Date Recorded What is the highest level of school you have completed or the highest degree you have received? 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 - 03/24/2025 8:00 AM CDT Images from the original note were not included. Consult conducted via real-time audio technology by Bill Pacheco M.D. in [facility] to the patient in the patient's home. SUBJECTIVE HISTORY OF PRESENT ILLNESS Mr. Hinds is a pleasant 64 y.o. male who presents via phone today for follow up after right ureteroscopy, laser lithotripsy, steerable ureteroscopic renal evacuation on March 06, 2025. He had been pre admitted 03/04/2025 for preoperative antibiotics. His postoperative CT March 07, 2025 demonstrated small volume residual stone disease. Underwent a repeat CT scan March 23, 2025. There were remains small volume stone disease. Today he is on the phone with his . He reports feeling well. He is not bothered by the stone. Comorbidities 1. Multiple sclerosis 2. Paraparesis 3. Depression 4. History pulmonary embolism 5. History of urinary tract infections 6. History of acute respiratory failure MEDICAL HISTORY Patient Active Problem List Diagnosis Date Noted Stone Kidney 03/08/2025 Nephrolithiasis 02/04/2025 Contusion Arm Initial Left 12/25/2017 Anemia 12/25/2017 Depression/Mindy/Bipolar NOS 12/25/2017 Confusion 12/24/2017 Pneumonia 12/24/2017 Sepsis NOS 12/24/2017 Acute Respiratory Failure With Hypoxia (HCC) 12/24/2017 Tachycardia Sinus 12/24/2017 Alkalosis Respiratory 12/24/2017 Hypokalemia 12/24/2017 Edema Upper Extremity 12/24/2017 Urinary Tract Infection Site Not Specified 12/23/2017 Urinary Tract Infection Site Not Specified 12/23/2017 Thrombosis Deep Vein Family History 12/10/2017 Thrombosis Deep Vein Family History 12/10/2017 Embolus Pulmonary (HCC) 11/20/2017 Depression Major Recurrent Moderate (HCC) 08/11/2015 Paraparesis Spastic (HCC) 01/31/2013 Multiple Sclerosis (HCC) 10/19/2004 Medical History[1] SURGICAL HISTORY Surgical History[2] CURRENT MEDICATIONS Current Medications[3] ALLERGIES/CONTRAINDICATIONS Allergies[4] SOCIAL HISTORY Social History Socioeconomic History Marital status: Spouse name: Not on file Number of children: Not on file Years of education: Not on file Highest education level: 12th grade Occupational History Not on file Tobacco Use Smoking status: Former Types: Cigarettes Passive exposure: Current Smokeless tobacco: Former Types: Chew Vaping Use Vaping status: never used Substance and Sexual Activity Alcohol use: No Drug use: No Sexual activity: Never Other Topics Concern Not on file Social History Narrative Not on file Social Drivers of Health Food Insecurity: No Food Insecurity (03/05/2025) Hunger Vital Sign Worried About Running Out of Food in the Last Year: Never true Ran Out of Food in the Last Year: Never true Transportation Needs: No Transportation Needs (03/05/2025) PRAPARE - Transportation Lack of Transportation (Medical): No Lack of Transportation (Non-Medical): No Intimate Partner Violence: Not At Risk (03/05/2025) Humiliation, Afraid, Rape, and Kick questionnaire Fear of Current or Ex-Partner: No Emotionally Abused: No Physically Abused: No Sexually Abused: No Housing Stability: Low Risk (03/05/2025) Housing Stability Housing: Living Situation: I have a steady place to live FAMILY HISTORY Family History[5] REVIEW OF SYSTEMS Additionally, a complete 10 point review of systems was conducted and was negative except for what was mentioned above in the HPI and/or endorsed on the patient survey. OBJECTIVE LABS Lab Results Component Value Date NA 140 03/08/2025 CL 105 03/08/2025 BUN 12 03/08/2025 CO2 25 08/11/2024 HGB 14.2 03/08/2025 HCT 44.8 03/08/2025 WBC 10.0 (H) 03/08/2025 Lab Results Component Value Date/Time CREATININE 0.86 03/08/2025 03:23 AM CREATININE 0.76 03/07/2025 02:49 PM CREATININE 0.87 02/04/2025 09:38 AM CREATININE 0.76 08/11/2024 09:34 AM CREATININE 0.80 10/23/2023 10:11 AM CREATININE 0.8 09/19/2023 03:57 PM CREATININE 0.8 12/27/2022 10:54 AM CREATININE 0.8 11/03/2021 11:15 AM CREATININE 0.82 01/03/2018 06:25 PM CREATININE 0.65 (L) 12/24/2017 08:24 AM CREATININE 0.70 (L) 12/23/2017 02:50 PM CREATININE 0.9 11/29/2017 08:43 AM CREATININE 0.89 11/29/2017 06:09 AM Lab Results Component Value Date/Time PSA 3.1 11/17/2017 02:58 PM PSA 1.4 03/26/2012 09:51 AM MICROBIOLOGY/CULTURE DATA: Microbiology Results (last 30 days) Procedure Component Value - Date/Time Fungal Culture, Routine [[id number]] Collected: 03/06/25 155 Lab Status: Preliminary result Specimen: Stone from Kidney, Right Updated: 03/19/25 0102 Fungal Culture, Routine No growth to date. Gram Stain [[id number]] (Abnormal) Collected: 03/06/25 1551 Lab Status: Final result Specimen: Stone from Kidney, Right Updated: 03/07/25 0000 Gram Stain GRAM NEGATIVE BACILLUS Few Comment: Semi-Urgent Result. GRAM POSITIVE COCCI Moderate Comment: Semi-Urgent Result. Semi-Urgent This is a semi-urgent result Acid Fast Smear for Mycobacterium [[id number]] Collected: 03/06/25 155 Lab Status: Final result Specimen: Stone from Kidney, Right Updated: 03/08/25 1815 Acid Fast Smear For Mycobacterium Negative. Fungal Smear [[id number]] Collected: 03/06/25 155 Lab Status: Final result Specimen: Stone from Kidney, Right Updated: 03/08/25 1428 Fungal Smear Negative. Bacterial Culture, Aerobic + Susceptibility [[id number]] (Abnormal) (Susceptibility) Collected: 03/06/25 155 Lab Status: Final result Specimen: Stone from Kidney, Right Updated: 03/10/25 1412 Bacterial Culture, Aerobic + Susc STAPHYLOCOCCUS EPIDERMIDIS 2+ AEROCOCCUS URINAE 2+ Susceptibility Staphylococcus epidermidis SUSCEPTIBILITY, ORLY (MCG/ML) Clindamycin <=0.5 mcg/mL Susceptible Doxycycline <=4 mcg/mL Susceptible Levofloxacin >4 mcg/mL Resistant [1] Minocycline <=1 mcg/mL Susceptible Oxacillin 0.5 mcg/mL Susceptible [2] Rifampin <=0.5 mcg/mL Susceptible [3] Trimethoprim + Sulfamethoxazole >2/38 mcg/mL Resistant Vancomycin 2 mcg/mL Susceptible [1] Fluoroquinolones have a limited role in treatment of staphylococcal infections; consult Infectious Diseases if considering usage. [2] Use oxacillin interpretation to predict results for anti-staphylococcal beta-lactam antibiotics (except ceftaroline). [3] Rifampin should not be used as monotherapy Susceptibility Aerococcus urinae SUSCEPTIBILITY, ORLY (MCG/ML) Ceftriaxone 1 mcg/mL Susceptible Penicillin <=0.06 mcg/mL Susceptible Vancomycin <=1 mcg/mL Susceptible Mycoplasma hominis PCR [[id number]] Collected: 03/06/25 155 Lab Status: Final result Specimen: Stone from Kidney, Right Updated: 03/09/25 1028 Specimen Source Stone, Kidney, Right Mycoplasma hominis PCR Negative Comment: ----ADDITIONAL INFORMATION---- This test was developed and its performance characteristics determined by [facility] in a manner consistent with CLIA requirements. This test has not been cleared or approved by the U.S. Food and Drug Administration. Ureaplasma PCR [[id number]] Collected: 03/06/25 155 Lab Status: Final result Specimen: Stone from Kidney, Right Updated: 03/09/25 1054 Specimen Source Stone, Kidney, Right Ureaplasma urealyticum PCR Negative Ureaplasma parvum PCR Negative Comment: ----ADDITIONAL INFORMATION---- This test was developed and its performance characteristics determined by [facility] in a manner consistent with CLIA requirements. This test has not been cleared or approved by the U.S. Food and Drug Administration. Mycobacterial Culture [[id number]] Collected: 03/06/251550 Lab Status: Preliminary result Specimen: Kidney, Right Updated: 03/21/25 0106 Mycobacterial Culture No growth to date. PATHOLOGY: No results found for this or any previous visit (from the past 720 hours). IMAGING AND TESTS: CT Abdomen Pelvis without IV Contrast Result Date: 03/23/2025 Impression: 1. Right-sided nephroureteral stent present in stable/expected position. 2. Multiple renal calculi observed throughout the right renal collecting systems and urinary bladder with improvement in renal pelvic stone burden from preceding CT. 3. Several additional stable findings as above. CT Abdomen Pelvis without IV Contrast Result Date: 03/07/2025 Impression: 1. Interval postoperative changes of right lithotripsy and ureteral stent placement. Multiple residual right renal calculi/debris, including an amorphous calculus in the right renal pelvis. 2. Inflammatory bladder changes compatible with chronic cystitis. ASSESSMENT / PLAN 1. Multiple sclerosis 2. Paraparesis 3. Depression 4. History pulmonary embolism 5. History of urinary tract infections 6. History of acute respiratory failure 7. Residual right-sided stone disease after right ureteroscopy 03/26/2025 The patient and I discussed his current clinical scenario. Given the small volume of residual stonedisease in his history of urinary tract infections, we will plan for repeat ureteroscopy. We did talk about the possibility of stent removal on observation. The patient is interested in attempting magali stone free. Therefore we discussed the risks and benefits of right ureteroscopy, laser lithotripsy, steerable ureteroscopic renal evacuation with the CVAC device. Specifically we discussed that the risks included, but were not limited to, bleeding, infection, injury to adjacent structures, failure of the surgery to provide the intended effect, need for subsequent operations, heart attack, strok e, venous thromboembolism. This is a patient-initiated telephone call. I personally spent a total 7 minutes on the phone with the patient discussing care as described above. [1] Past Medical History: Diagnosis Date Embolus Pulmonary (HCC) Multiple Sclerosis (HCC) Other Specified Health Status history of ms pulmonary embulism 11/2017 Thrombosis Deep Vein Family History 12/10/2017 [2] Past Surgical History: Procedure Laterality Date CYSTOSCOPY INSERTION STENT URETER Right 03/06/2025 Procedure: CYSTOSCOPY INSERTION STENT URETER.; Surgeon: Bill Pacheco M.D.; Location: [facility] OR FOOT TENDON SURGERY N/A 08/09/2001 >Flexor hallucis longus, flexor digitorum longus tendon lengthening, left foot. TENOTOMY N/A 06/11/2002 >Interphalangeal fusion, left great toe. Flexor tenotomy second through fourth toes, left. TIBIA FRACTURE SURGERY Left 10/12/2000 >Intramedullary nailing left tibia (Synthes Cat. No. [id number] N No. [id number]). TIBIA HARDWARE REMOVAL N/A 10/25/2001 >Removal of distal locking screw, left tibia. URETEROSCOPY WITH LASER LITHOTRIPSY Right 03/06/2025 Procedure: URETEROSCOPY WITH LASER LITHOTRIPSY WITH CALYXO.; Surgeon: Bill Pacheco M.D.; Location: [facility] OR [3] Current Outpatient Medications: acetaminophen (TylenoL) 500 mg tablet, Take 2 tablets (1,000 mg total) by mouth every 6 (six) hoursas needed for pain or fever. First line medication for pain. Do not exceed 4,000 mg of acetaminophen in a day from all sources., Disp: , Rfl: atorvastatin (Lipitor) 20 mg tablet, Take 1 tablet by mouth at bedtime., Disp: , Rfl: baclofen (LioresaL) 20 mg tablet, Take 1 tablet by mouth 3 (three) times a day., Disp: , Rfl: cholecalciferol (Vitamin D3) 50 mcg (2,000 Unit) tablet, Take 2,000 Units by mouth once a week., Disp: , Rfl: ketoconazole (Nizoral) 2 % shampoo, Apply 1 Application topically as needed for dandruff., Disp: , Rfl: methenamine (Hiprex) 1 gram tablet, Take 1 g by mouth 2 (two) times a day., Disp: , Rfl: olopatadine (Pataday) 0.2 % ophthalmic solution, Administer 1 drop into affected eye(s) daily., Disp: , Rfl: oxyBUTYnin (Ditropan) 5 mg tablet, Take 1 tablet by mouth 2 (two) times a day., Disp: , Rfl: sennosides 25 mg tablet, Take 25 mg by mouth daily., Disp: , Rfl: warfarin (Jantoven) 2 mg tablet, Take warfarin 2 mg by mouth daily. This is a dose reduction from your usual home dose since the antibiotics you were prescribed after surgery can make you more sensitive to the effects of warfarin. Please follow-up with managing provider and check INR on Sunday03/09/2025 if possible., Disp: , Rfl: [4] Allergies Allergen Reactions Bee Venom Protein (Honey Bee) Other (see comments) No reaction noted Penicillins Other (see comments) Delirium, questionable anaphylactic reaction Other reaction(s): *Unknown - Pt Doesn't Remember, Other (see comments) Product containing penicillin (product) Venom-Honey Bee Angioedema [5] Family History Problem Relation Name Age of Onset Hypertension Mother Cronell Hinds Coronary artery disease Father Aaron Hinds * Marcos Watkins M.D. - 03/24/2025 8:00 AM CDT Postponing, he will see vascular medicine on 04/24/2025 we will need to follow up on recommendations. documented in this encounter Plan of Treatment Upcoming Encounters Date Type Department Care Team (Latest Contact Info) Description 05/01/2025 11:30 AM CDT Appointment Department of Laboratory Medicine in [address] [phone] Bill Pacheco M.D. [address] [place] [phone] 05/01/2025 1:15 PM CDT Clinical Support Division of Allergic Diseases in [place], [place] [address] [place] [phone] Simi Hart MPAS, P.A.-C. [address] [place] [phone] 05/01/2025 2:00 PM CDT Comprehensive Visit Division of Allergic Diseases in [place], [place] [address] [place] [phone] Darwin Martinez M.D., Ph.D. [address] [place] [phone] 05/15/2025 2:23 PM CDT Hospital Encounter [facility] Bed Planning Bill Pacheco M.D. [address] [place] [phone] 05/15/2025 2:23 PM CDT - 05/15/2025 4:26 PM CDT Surgery [facility] [address] [place] [phone] Bill Pacheco M.D. [address] [place] [phone] URETEROSCOPY WITH LASER LITHOTRIPSY,WITH CALYXO, PROCEED INDICATED Scheduled Procedures Name Priority Associated Diagnoses Date/Ti me URETEROSCOPY WITH LASER LITHOTRIPSY Nephrolithiasis 05/15/2025 2:23 PM CDT EXCHANGE URETERAL STENT Nephrolithiasis 05/15/2025 2:23 PM CDT documented as of this encounter Goals Goal Patient Goal Type Associated Problems Recent Progress Patient-Stated? Author Autogenerat ed Goal Care Plan Autogenerated Problem No Vidhya Villarreal R.N. documented as of this encounter Visit Diagnoses Not on filedocumented in this encounter Additional Health Concerns Active Problems Noted Date Diagnosed Date Autogenerated Problem 03/27/2025 documented as of this encounter Care Teams Curb Setter Relationship Specialty Start Date End Date Elsewhere, Pcp PCP - General Family Medicine 09/06/17 documented as of this encounter
--- OUTSIDE RECORDS SUMMARY | 2025-03-26 18:30 | XMS_ITS | Encounter Summary ---
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 [address] [place] [phone] Hematuria (Primary Dx) Discharge Disposition: Home or Self Care Social History Tobacco Use Types Packs/Day Years Used Date Smoking Tobacco: Former Cigarettes Passive Smoke Exposure: Current Smokeless Tobacco: Former Chew Alcohol Use Standard Drinks/Week Comments No 0 (1 standard drink = 0.6 oz pur e alcohol) [facility] Utilities Answer Date Recorded In the past 12 months has e [employer], gas, oil, or water [employer] threatened to shut off services in your [...] your living situation today? I have a [facility] to live 03/05/2025 Education Answer Date Recorded What is the highest level of school you have completed or the highest degree you have received? 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 Gender Identity Not on file Sexual Orientation Not on file documented as of this encounter Last Filed Vital Signs Vital Sign Reading Time Taken Comments Blood Pressure 109/76 03/27/2025 1:00 AM CDT Pulse 84 03/27/2025 1:00 AM CDT Temperature 36.5 C (97.7 F) 03/27/2025 1:00 AM CDT Respiratory Rate 15 03/27/2025 1:00 AM CDT Oxygen Saturation 93% 03/27/2025 1:00 AM CDT Inhaled Oxygen Concentration - - Weight 86.2 kg (190 lb) 03/26/2025 9:31 PM CDT Height 182.9 cm (6') 03/26/2025 9:31 PM CDT Body Mass Index 25.77 03/26/2025 9:31 PM CDT documented in this encounter Medications at Time of Discharge [...] possible. 03/07/2025 documented as of this encounter Consult Notes * Stevie Ceron M.D. - 03/27/2025 12:28 AM CDTAssociated Order(s): IP CONSULT TO UROLOGY Urology consult note 64-year-old male with a history of multiple sclerosis and neurogenic bladder managed with self-catheterization, history of pulmonary embolism on warfarin, nephrolithiasis s/p right ureteroscopy, stone extraction, and ureteral stent placement 03/06/2025, presenting with 2 day onset of gross hematuria. He performs self-catheterization twice per day. This evening, he was only catheterized for 30 cc, prompting visit to the emergency department. The patient also endorses generalized malaise over the past 2 days. Denies fevers, chills. Blood thinners: Warfarin Immunosuppression: No Vitals: Temperature 36.7??, heart rate 89, blood pressure 111/74 Pertinent labs: Hemoglobin 16.1 WBCs 6.6 Creatinine 0.64 (baseline 0.7) INR 3.4 Urinalysis: 21-30 WBCs, greater than 100 RBCs, trace leukocyte esterase, negative nitrites, Gram stain positive Urine culture: Pending Imaging: I reviewed his CT abdomen and pelvis with IV contrast from 03/26/2025. Right ureteral stent in place with residual stone burden. Interval improvement in right hydronephrosis compared to CT from 03/23/2025. Symmetric nephrograms. Left kidney normal without hydronephrosis. Bladder thick-walled with multiple cellules, mildly distended. No evidence of intravesical clot. I discussed the situation with the ED provider. Clinically, there are no signs or symptoms consistent with systemic infection. He performs self-catheterization at baseline so urinalysis and urine culture will be positive. Even in the setting of self-catheterization, his urinalysis only [id number] WBCs and negative nitrites with trace leukocyte esterase. He does not have a leukocytosis. There are many possible sources for his gross hematuria including indwelling ureteral stent, self-catheterization, and warfarin with most recent INR of 3.4. Recommend conservative management with hydration. Follow up urine culture. If the patient clinically improves, no indication for antibiotics. Stevie Ceron MD documented in this encounter ED Notes * Donta Shepard M.D. - 03/26/2025 9:52 PM CDT SUBJECTIVE CHIEF COMPLAINT/REASON FOR VISIT Blood in Urine (Recent lithotripsy) HISTORY OF PRESENT ILLNESS Dwain Hinds is a 64-year-old male with a history of spastic paraparesis, confusion, multiple sclerosis, DVT, PE (on warfarin), sepsis, and ureteroscopy with laser lithotripsy and right ureteral stent placement (03/06/25) who presents to the Emergency Department for the evaluation of hematuria. The patient regularly self-catheterizes at home. Yesterday he experienced an episode of hematuria. At approximately 5:00 pm he experienced another episode of hematuria. His states that she metno resistance when cathing, and the patient states that he self-catheterized twice today prior to this with no hematuria. The patient typically has a large urine output, however this evening he only produced 30 cc of urine with the hematuria, prompting presentation to the [facility] ED. The patient has been afebrile but reports feeling generally unwell this evening. He denies any fever, chills, or abdominal pain. There are no other complaints at this time. History provided by: Patient, significant other, relative and medical records translator interpreter needed/used: no REVIEW OF SYSTEMS Constitutional: Negative for chills and fever. Gastrointestinal: Negative for abdominal pain. Genitourinary: Positive for hematuria. All other systems reviewed and are negative. OBJECTIVE Initial Vitals Temperature 03/26/251836 36.7 ??C Pulse Rate 03/26/251836 89 Heart Rate -- Resp Rate 03/26/251836 18 Blood Pressure 03/26/251836 111/74 SpO2 03/26/251836 93 % Pain Score 03/26/25 2131 0 - No pain PHYSICAL EXAMINATION Constitutional: Nursing note and vitals reviewed. HENT: Head: Atraumatic. Mouth/Throat: Mucous membranes are moist. Eyes: Conjunctivae are normal. Cardiovascular: Normal rate, regular rhythm, S1 normal and S2 normal. Exam reveals no gallop and no friction rub. No murmur heard.Capillary refill: takes 3-5 seconds Pulmonary/Chest: Effort normal and breath sounds normal. There is normal air entry. No tachypnea. No respiratory distress. He has no wheezes. He has no rhonchi. He has no rales. Abdominal: Soft. exhibits no distension and no mass. There is no abdominal tenderness. There is no guarding. Musculoskeletal: General: Normal range of motion. Cervical back: Normal range of motion. Neurological: Alert and oriented to person, place, and time. He is not disoriented. No cranial nerve deficit. Skin: Skin is normal color. Psychiatric: He has a normal mood and affect. Behavior is normal. Judgment and thought content normal. ASSESSMENT/PLAN Dwain Hinds is a 64-year-old male who presents to the Emergency Department with hematuria.On arrival the patient is afebrile and hemodynamically stable. Physical exam is overall reassuring.Differential diagnosis includes, but is not limited to occluded stent, nephrolithiasis, pyelonephritis, and UTI. Workup was initiated with an EKG, blood laboratory studies including troponin and coagulation factors, and urinalysis with bacterial cultures. We will further workup with CT abdomen/pelvis. We will discuss the case with Urology for their recommendations. Final disposition pending results of imaging and ED workup. I discussed his case with the urologist on-call. His CT scan shows the stent is in place and working well. Possibly passed a stone on the left they reported. His urinalysis is not consistent with a UTI more colonization as he does self cath. Plan at this point will be to discharge him back home. Wewill await the urine culture results to see if we think he did car his antibiotics. Asked that theycut back on his Coumadin to get his INR back with a normal therapeutic range of 2-3. Return instructions and precautions were given. Assessment and Plan I reviewed the following external records: office records. Final Diagnoses: as of 03/27/25 1030 Hematuria My ECG interpretation is documented in ED Course. My CT Scan interpretation is documented in ED Course. I personally performed the services described in this documentation, as scribed in my presence, andit is both accurate and complete. Donta Shepard M.D. 03/27/25 1036 * Pita Watters, RLatanyaN. - 03/26/2025 6:39 PM CDT Patient presents w/ hematuria at 1700 today when self cathed him. Self caths on demand and cathed twice earlier in the day w/ no hematuria. states she met no resistance when cathing. Typically, patient has large output but tonight w/ the hematuria cath approx 30 cc of urine was all she emptied. Hx of a Lithotripsy on 03/06. Urine has been clear since. On thinners, Coumadin last taken lastevening. Patient states he generally does not feel himself and was requesting to lay down early this evening and skip supper. Afebrile. Pita Watters R.N. 03/26/25 1842 documented in this encounter Plan of Treatment Upcoming Encounters Date Type Department Care Team (Latest Contact Info) Description 05/01/2025 11:30 AM CDT Appointment Department of Laboratory Medicine in [address] [phone] Bill Pacheco M.D. [address] [place] [phone] 05/01/2025 1:15 PM CDT Clinical Support Division of Allergic Diseases in [place], [place] [address] [place] [phone] Simi Hart, [facility] [address] [place] [phone] 05/01/2025 2:00 PM CDT Comprehensive Visit Division of Allergic Diseases in [place], [place] [address] [place] [phone] Darwin Martinez M.D., Ph.D. [address] [place] [phone] 05/15/2025 2:23 PM CDT Hospital Encounter [facility] Bed Planning Bill Pacheco M.D. [address] [place] [phone] 05/15/2025 2:23 PM CDT - 05/15/2025 4:26 PM CDT Surgery [facility] [address] [place] [phone] Bill Pacheco M.D. [address] [place] [phone] URETEROSCOPY WITH LASER LITHOTRIPSY,WITH CALYXO, PROCEED INDICATED Scheduled Orders Name Type Priority Associated Diagnoses Orde r Schedule Gram Stain Microbiology Add-On Lab check fo r available specimen and run test if available for 1 Occurrences starting 03/26/2025 until 03/26/2025 Scheduled Procedures Name Priority Associated Diagnoses Date/Ti me URETEROSCOPY WITH LASER LITHOTRIPSY Nephrolithiasis 05/15/2025 2:23 PM CDT EXCHANGE URETERAL STENT Nephrolithiasis 05/15/2025 2:23 PM CDT documented as of this encounter Procedures Procedure Name Priority Date/Time Associated Diagnosis Comments CT ABDOMEN PELVIS WITH IV CONTRAST RAD - Semiurgent (Fast; most ED patients; some inpatients) 03/26/2025 11:[address], U STAT 03/26/2025 10:20 PM CDT TROPONIN T, 2H/6H REFLEX, 5TH GEN, P Timed 03/26/2025 9:39 PM CDT TROPONIN T, BASELINE, 5TH GEN, P STAT 03/26/2025 6:55 PM CDT PROTHROMBIN TIME (PT), P STAT 03/26/2025 6:55 PM CDT CBC WITH DIFFERENTIAL, B STAT 03/26/2025 6:55 PM CDT BASIC METABOLIC PANEL, S/P STAT 03/26/2025 6:55 PM CDT ECG Routine 03/26/2025 6:48 PM CDT HC OSMOLALITY ASSAY URINE STAT 03/26/2025 6:44 PM CDT DIPSTICK, U STAT 03/26/2025 6:44 PM CDT PH, RANDOM, U STAT 03/26/2025 6:44 PM CDT MICROSCOPIC MANUAL STAT 03/26/2025 6: 44 PM CDT BACTERIAL CULTURE, AEROBIC + SUSC, URINE STAT 03/26/2025 6:44 PM CDT URINALYSIS WITH MICROSCOPIC STAT 03/26/2025 6:44 PM CDT documented in this encounter Results * CT Abdomen Pelvis with IV Contrast (03/26/2025 11:32 PM CDT) Anatomical Region Laterality Modality Abdomen, Pelvis, Abdominal R ST LOS, Abdominal ARZ LOS, Abdominal FLA LOS N/A Computed Tomograp hy, Computed Tomography 03/26/2025 11:3 1 PM CDT Impressions 03/27/2025 8:49 AM CDT 1. Moderately improved right hydronephrosis. Unchanged right-sided stone burden. 2. Possible interval passage of a previous 3 mm left renal stone. Narrative 03/27/2025 8:49 AM CDT EXAM: CT ABDOMEN PELVIS WITH IV CONTRAST COMPARISON: CT abdomen/pelvis without contrast 03/23/2025 FINDINGS: Unchanged positioning of an appropriately positioned right-sided nephroureteral stent. Moderately improved dilatation of the right renal pelvis. Mild reactive urothelial hyperenhancement throughout the right renal pelvis and ureter, with mild periureteral inflammatory stranding. Overall, unchanged right-sided stone burden, with nonobstructing stones/calcific debris is observed within the interpolar and lower pole calyces of the right kidney, as well as within the renal pelvis. Symmetric nephrograms. No left hydronephrosis. Possible interval passage of a previous 3 mm stone within the interpolar left kidney (series 3, image 228 on the 03/23/2025 exam). No other left-sided renal calculi identified. Again noted rest of the findings in this short-term follow-up. Procedure Note Patria Parrish M.D. - 03/27/2025 EXAM: CT ABDOMEN PELVIS WITH IV CONTRAST COMPARISON: CT abdomen/pelvis without contrast 03/23/2025 FINDINGS: Unchanged positioning of an appropriately positioned right-sidednephroureteral stent. Moderately improved dilatation of the right renalpelvis. Mild reactive urothelial hyperenhancement throughout the rightrenal pelvis and ureter, with mild periureteral inflammatory stranding. Overall, unchanged right-sided stone burden, with nonobstructingstones/calcific debris is observed within the interpolar and lower polecalyces of the right kidney, as well as within the renal pelvis. Symmetric nephrograms. No left hydronephrosis. Possible interval passage of a previous 3 mm stone within the interpolarleft kidney (series 3, image 228 on the 03/23/2025 exam). No otherleft-sided renal calculi identified. Again noted rest of the findings in this short-term follow-up. IMPRESSION: 1. Moderately improved right hydronephrosis. Unchanged right-sided stoneburden. 2. Possible interval passage of a previous 3 mm left renal stone. us Donta Shepard M.D. IMG CT PROCEDURES Final Res ult * (ABNORMAL) Gram Stain, Urine (03/26/2025 10:20 PM CDT) Pathologist [facility] Source ?Fluid, Urine, Midstream 03/26/2025 10:20 PM CDT DTL Gram Stain, U Positive(A) Negative 03/26/2025 10:34 PM CDT DTL Comment:Many Gram-positive b acilli Urine 03/26/2025 10:2 0 PM CDT 03/26/2025 10:20 PM CDT us Donta Shepard M.D. LAB URINE ORDERABLES Final Result [facility] [address] [place] [address], [place] DTL [facility] [address] [place] [address] * Troponin T, 2 Hour with 6 Hour Reflex, 5th Gen (03/26/2025 9:39 PM CDT) Troponin T, 2 hr, 5th gen 8 <=15 ng/L 03/26/2025 10:32 PM CDT STMA 2H Delta -1 ng/L 03/26/2025 10:32 PM CDT STMA Comment:6 hour collection no t indicated. 2H Delta Interp Not Changing 03/26/2025 10:32 PM CDT [facility] Blood 03/26/2025 9:39 PM CDT 03/26/2025 9:43 PM CDT us Job Torres P.A.-C. LAB BLOOD TROPONIN Final R esult Performing Organization Address City/[facility] Co de Phone Number [facility] [address] [place] [address] * (ABNORMAL) Prothrombin Time (PT) (03/26/2025 6:55 PM CDT) Prothrombin Time, P 37.8(H) 9.4 - 12.5 sec 03/26/2025 7:07 PM CDT [facility] INR 3.4 0.9 - 1.1 03/26/2025 7:07 PM CDT [facility] Comment: ----ADDITIONAL INFORMATION---- Standard intensity warfarin therapeutic range: 2.0 to 3.0 High intensity warfarin therapeutic range: 2.5 to 3.5 Blood (Blood, Venous) 03/26/2025 6:55 PM CDT 03/26/2025 7:00 PM CDT us Donta Shepard M.D. LAB BLOOD ADD-ON Final Resu lt Performing Organization Address [facility] Co de Phone Number [facility] [address] [place] [address], [facility] 200 [place] [address] * Troponin T, Baseline with 2 Hour/6 Hour Reflex Biomarker Panel (03/26/2025 6:55 PM CDT) Pathologist [facility] [place] Troponin T, Baseline, 5th gen 9 <=15 ng/L 03/26/2025 7:16 PM CDT [facility] Blood (Blood, Venous) 03/26/2025 6:55 PM CDT 03/26/2025 7:00 PM CDT us Donta Shepard M.D. LAB BLOOD TROPONIN Final Re sult [facility] [address] [place] [address], [facility] STMA [facility] [address] [place] [address] * (ABNORMAL) CBC with Differential, Blood (03/26/2025 6:55 PM CDT) Hemoglobin 16.1 13.2 - 16.6 g/dL 03/26/2025 7:03 PM CDT STMA Hematocrit 50.2(H) 38.3 - 48.6 % 03/26/2025 7:03 PM CDT STMA Erythrocytes 5.65 4.35 - 5.65 x10(12)/L 03/26/2025 7:03 PM CDT STMA MCV 88.8 78.2 - 97.9 fL 03/26/2025 7:03 PM CDT ST[facility] RBC Distrib Width 15.4(H) 11.8 - 14.5 % 03/26/2025 7:03 PM CDT STMA Platelet Count 293 135 - 317 x10(9)/L 03/26/2025 7:03 PM CDT ST[facility] Leukocytes 6.6 3.4 - 9.6 x10(9)/L 03/26/2025 7:03 PM CDT STMA Neutrophils 4.40 1.56 - 6.45 x10(9)/L 03/26/2025 7:03 PM CDT DHPM Lymphocytes 1.31 0.95 - 3.07 x10(9)/L 03/26/2025 7:03 PM CDT STMA Monocytes 0.72 0.26 - 0.81 x10(9)/L 03/26/2025 7:03 PM CDT STMA Eosinophils 0.16 0.03 - 0.48 x10(9)/L 03/26/2025 7:03 PM CDT STMA Basophils 0.03 0.01 - 0.08 x10(9)/L 03/26/2025 7:03 PM CDT STMA Blood (Blood, Venous) 03/26/2025 6:55 PM CDT 03/26/2025 7:00 PM CDT us Donta Shepard M.D. LAB BLOOD ADD-ON Final Resu lt [facility] [address] [place] [address], [facility] STMA [facility] [address] [place] [address] DHPM [facility] [address] [place] [address] * (ABNORMAL) Basic Metabolic Panel (03/26/2025 6:55 PM CDT) Pathologist [facility] [place] Potassium, P 4.0 3.6 - 5.2 mmol/L 03/26/2025 7:18 PM CDT STMA Sodium, P 142 135 - 145 mmol/L 03/26/2025 7:18 PM CDT STMA Chloride, P 108(H) 98 - 107 mmol/L 03/26/2025 7:18 PM CDT STMA Bicarbonate, P 23 22 - 29 mmol/L 03/26/2025 7:18 PM CDT STMA Anion Gap, P 11 7 - 15 03/26/2025 7:18 PM CDT STMA BUN (Blood Urea Nitrogen), P 13 8 - 24 mg/dL 03/26/2025 7:18 PM CDT STMA Creatinine 0.64(L) 0.74 - 1.35 mg/dL 03/26/2025 7:18 PM CDT STMA Estimated GFR (eGFR) >90 >=60 mL/min/BSA 03/26/2025 7:18 PM CDT STMA Comment: Estimated GFR calculated using the 2020 CKD_EPI creatinine equation. Calcium, Total, P 8.8 8.8 - 10.2 mg/dL 03/26/2025 7:18 PM CDT STMA Glucose, P 100 70 - 140 mg/dL 03/26/2025 7:18 PM CDT STMA Blood (Blood, Venous) 03/26/2025 6:55 PM CDT 03/26/2025 7:00 PM CDT Donta Shepard M.D. LAB BLOOD ADD-ON Final Resu lt Performing Organization Address [facility] Co de Phone Number [facility] [address] [place] [address], [place] STMA [facility] [address] [place] [address] * ECG 12 Lead (03/26/2025 6:48 PM CDT) Ventricular Rate ECG/Min 80 BPM MUSE [place] Interval 148 ms MUSE QRSD Interval 90 ms MUSE QT Interval 400 ms MUSE QTC Interval 461 ms MUSE P Reading 37 degrees MUSE R Reading -31 degrees MUSE T Wave Reading 38 degrees MUSE 03/26/2025 6:48 PM CDT 03/26/2025 6:55 PM CDT Impressions MUSE - 03/26/2025 6:55 PM CDT Sinus rhythm Premature supraventricular complexes Left axis deviation Nonspecific ST and T wave abnormality When compared with ECG of 07-Mar-2025 11:11, Premature supraventricular complexes are now present Reviewed by JASMINA Whiting Narrative Procedure Note Jevon Grimm M.D. - 03/26/2025 IMPRESSION: Sinus rhythm Premature supraventricular complexes Left axis deviation Nonspecific ST and T wave abnormality When compared with ECG of 07-Mar-2025 11:11, Premature supraventricular complexes are now present Reviewed by JASMINA Whiting us Donta Shepard M.D. ECG ORDERABLES Final Resul t Performing Organization Address City/[facility]/ZIP Co de Phone Number MUSE NA * (ABNORMAL) Dipstick, Urine (03/26/2025 6:44 PM CDT) Hemoglobin, QL, U Large(A) Negative 03/26/2025 7:12 PM CDT DTL Leukocyte Esterase, U Trace(A) Negative 03/26/2025 7:12 PM CDT DTL Nitrite, U Negative Negative 03/26/2025 7:12 PM CDT DTL Ketone, U Negative Negative mg/dL 03/26/2025 7:12 PM CDT DTL Glucose, U Negative Negative mg/dL 03/26/2025 7:12 PM CDT DTL Urine 03/26/2025 6:44 PM CDT 03/26/2025 7:06 PM CDT us Donta Shepard M.D. LAB URINE ORDERABLES Final Result [facility] [address] [place] [address] * pH, Random, Urine (03/26/2025 6:44 PM CDT) pH, Random, U 5.6 4.5 - 8.0 03/26/2025 7:30 PM CDT DTL Urine 03/26/2025 6:44 PM CDT 03/26/2025 7:06 PM CDT us Donta Shepard M.D. LAB URINE ORDERABLES Final Result Performing Organization Address City/[facility]/ZIP Co de Phone Number [facility] 200 [place] [address], [facility] [address] [place] [address] * Osmolality, Urine (03/26/2025 6:44 PM CDT) Osmolality, U 617 150 - 1150 mOsm/kg 03/26/2025 7:30 PM CDT DT Urine 03/26/2025 6:44 PM CDT 03/26/2025 7:06 PM CDT us Donta Shepard M.D. LAB URINE ORDERABLES Final Result [facility] [address] [place] [address] * (ABNORMAL) Microscopic Manual (03/26/2025 6:44 PM CDT) Microscopy Abnormal 03/26/2025 9:01 PM CDT DTL RBC >100(A) <3 /hpf 03/26/2025 9:01 PM CDT DTL Dysmorphic RBC <25 <25 % 03/26/2025 9:01 PM CDT DTL WBC 21-30(A) /hpf 03/26/2025 9:01 PM CDT DTL Comment: ----REFERENCE VALUE---- <4 (Males) <11 (Females) Squamous Epithelial Cells, U 4-10 /hpf 03/26/2025 9:01 PM CDT DTL Crystals Calcium Oxalate crystals present 03/26/2025 9:01 PM CDT DTL Urine 03/26/2025 6:44 PM CDT 03/26/2025 7:06 PM CDT us Donta Shepard M.D. LAB URINE ORDERABLES Final Result [facility] 200 [place] [address] * Bacterial Culture, Aerobic + Susceptibility, Urine (03/26/2025 6:44 PM CDT) Urine Culture No growth after 1 day of incubation. 03/27/2025 1:41 PM CDT DTL Urine (Urine, Straight Catheter) 03/26/2025 6:44 PM CDT 03/26/2025 7:29 PM CDT Comment:Specimen Source Site : Urine us Donta Shepard M.D. LAB MICROBIOLOGY - GENERAL ORDERABLES Final Result [facility] [address] [place] [address], [facility] [place] 200 [place] [address] * (ABNORMAL) Urinalysis, with Microscopic: Urine, Catheter (03/26/2025 6:44 PM CDT) Source Urine, Urine, Catheter 03/26/2025 7:06 PM CDT DTL Color, U Brown(A) 03/26/2025 7:06 PM CDT DTL Clarity, U Cloudy(A) 03/26/2025 7:06 PM CDT DTL Protein, U 155(H) <26 mg/dL 03/26/2025 7:46 PM CDT DTL Protein/Osmola lity 2.51(H) <0.42 ratio 03/26/2025 7:46 PM CDT DTL Predicted 24 HR Protein, U 2265(H) <229 mg/24 h 03/26/2025 7:46 PM CDT DTL Predicted Range 719-7137 mg/24 h 03/26/2025 7:46 PM CDT DTL Urine (Urine, Catheter) 03/26/2025 6:44 PM CDT 03/26/2025 7:06 PM CDT us Donta Shepard M.D. LAB URINE ORDERABLES Final Result [address] [address], [facility] [place] [address] [place] [address] documented in this encounter Visit Diagnoses Diagnosis Nephrolithiasis- Primary Hematuria- Primary Nephrolithiasis documented in this encounter Administered Medications Inactive Administered Medications - up to 3 most recent administrations Medication Order MAR Action Action Date Dose Rate Site iohexoL 300 mg iodine/mL solution 1-200 mL (Omnipaque) 1-200 mL, intravenous, Once in imaging, contrast, Starting on Sondra 03/26/25 at 2321, For 1 dose, Imaging Protocol Orders, Dose per Radiant Medication Guidelines Given 03/26/2025 11:29 PM CDT 140 mL sodium chloride (PF) 0.9 % injection 1-100 mL 1-100 mL, intravenous, Once, On Sondra 03/26/25 at 2322, For 1 dose, Imaging Protocol Orders, Dose per Radiant Medication Guidelines Given 03/26/2025 11:29 PM CDT 50 mL sodium chloride 0.9 % injection 10 mL 10 mL, intravenous, As needed, line care, Starting on Sondra 03/26/25 at 1844, Peripheral Intravenous Catheter and Rapid Infusion Catheter, prior to blood sampling, post blood transfusion or post blood sampling Given 03/26/2025 11:25 PM CDT 10 mL sodium chloride 0.9 % injection 3 mL 3 mL, intravenous, As needed, line care, Starting on Sondra 03/26/25 at 1844, Prior to and following infusion and between multiple consecutive infusions: sodium chloride 0.9 % injection sodium chloride 0.9 % injection 3 mL 3 mL, intravenous, Every 12 hours scheduled, First dose on Sondra 03/26/25 at 2100, Peripheral Intravenous Catheter and Rapid Infusion Catheter, when no infusion to maintain patency documented in this encounter Active and Recently Administered Medications Times are shown in CDT. Scheduled Medication Order 03/25/2025 03/26/2025 03/27/2025 sodium chloride (PF) 0.9 % injection 1-100 mL (COMPLETED) 1-100 mL, intravenous, Once, On Sondra 03/26/25 at 2322, For 1 dose, Imaging Protocol Orders, Dose per Radiant Medication Guidelines 2329 (Given - Provider: Elio Cho RLatanyaNLatanya) sodium chloride 0.9 % injection 3 mL 3 mL, intravenous, Every 12 hours scheduled, First dose on Sondra 03/26/25 at 2100, Peripheral Intravenous Catheter and Rapid Infusion Catheter, when no infusion to maintain patency 2200 (Not Given - Provider: Isabel Ochoa R.N. - Reason: Other - Comment: No PIV) PRN Medication Order 03/25/2025 03/26/2025 03/27/2025 iohexoL 300 mg iodine/mL solution 1-200 mL (Omnipaque) (COMPLETED) 1-200 mL, intravenous, Once in imaging, contrast, Starting on Sondra 03/26/25 at 2321, For 1 dose, Imaging Protocol Orders, Dose per Radiant Medication Guidelines 2329 (Given - Provider: Elio Cho RLilly) sodium chloride 0.9 % injection 10 mL 10 mL, intravenous, As needed, line care, Starting on Sondra 03/26/25 at 1844, Peripheral Intravenous Catheter and Rapid Infusion Catheter, prior to blood sampling, post blood transfusion or post blood sampling 2325 (Given - Provider: Skylar PrinceNLatanya) sodium chloride 0.9 % injection 3 mL 3 mL, intravenous, As needed, line care, Starting on Sondra 03/26/25 at 1844, Prior to and following infusion and between multiple consecutive infusions: sodium chloride 0.9 % injection documented in this encounter Care Teams Senior Design Engineer Relationship Specialty Start Date End Date Elsewhere, Pcp PCP - General Family Medicine 09/06/17 documented as of this encounter
--- OUTSIDE RECORDS SUMMARY | 2025-03-31 14:40 | XMS_ITS | Encounter Summary ---
Author Organization [facility] er Address [address] [place] [address] Care Team Providers Care Manager Highway Name Role Phone Wade Donovan MD Primary Care Provider [phone] Encounter Details Date Type Department Care Team (Latest Contact Info) Description 03/31/2025 2:40 PM CDT Patient Outreach SE Care Coordination [address] [place] [address] Leah Badillo RN [address] [place] [address] Counseling and coordination of care (Primary Dx); Multiple sclerosis (HCC); Moderate episode of recurrent major depressive disorder (HCC); Hyperlipidemia LDL goal <100 Social History Tobacco [...] from your doctor or pharmacy? Always 11/25/2024 [facility] Utilities Answer Date Recorded In the [...] often do you attend chur ch or methodist services? 1 to 4 times per year [...] Date Recorded PHQ-9 Total Score 0 02/24/2025 [facility] - Occupational [...] [place] (including [place])? No 11/07/2023 Housing Stability Vital Sign Answer Jose e Recorded In the last 12 months, was t here a time when you were not able to pay the mortgage or rent on time? No 11/25/2024 In the past 12 months, how m any times have you moved where you were living? 0 11/25/2024 At any time in the past 12 m [facility], were you homeless or living in a [place] facility (including now)? No 11/25/2024 Interpersonal Safety Questionnaire [...] as of this encounter Progress Notes * Leah Badillo RN - 03/31/2025 2:40 PM CDT Chronic Care Management Date: 03/31/2025 3:49 PM Author: Leah Badillo RN Reviewed ER visit and chart notes. Plan to follow up tomorrow. Time added: Time spent with patient (minutes): 0 Time spent performing chart review (minutes): 10 * Leah Badillo RN - 03/31/2025 2:40 PM CDT Chronic Care Management - Ongoing Care Plan Date: 04/01/2025 3:22 PM Author: Leah Badillo RN Completed CCM follow up call with Dwain He continues to work towards previously set goals. Updates for Provider: Checked with pharmacy and no script sent for Raine-reminder sent to Dr. Campoverde Follow-up plan: Monthly, sooner if indicated Reinforced 23/04 nurse line, call for urgent concerns Time added: Time spent with patient (minutes): 5 Time spent performing chart review (minutes): 10 CCM services performed under the general supervision of Wade Donovan MD Goals 03/31/25 General Cardiovascular Management On track Cardiovascular Management Hyperlipidemia LDL goal <100 Pulmonary embolism (HCC) Managed by (PCP; Cardiology; Anticoag Clinic) Dr. Donovan Blood pressure goal Less than 140/90 Recent blood pressures BP Readings from Last 3 Encounters: 03/23/25 112/79 03/19/25 127/84 02/24/25 (!) 126/97 Labs Lab Results Component Value Date CHOL 125 08/11/2024 HDL 31 (L) 08/11/2024 LDLCALC 78 08/11/2024 TRIG 81 08/11/2024 [facility] Lab Results Component Value Date INR 2.80 (A) 03/31/2025 INR 3.60 (A) 03/27/2025 INR 2.20 (A) 03/19/2025 Warfarin dosing per [facility] Lifestyle management (diet and exercise) Notes: 04/02/25: going to be switching over to Eliquis from Coumadin. Having issues getting the rx. 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 (HCC) [facility] 03/23/25 Notes: Routine Health Management Routine Health Management Care Team Patient Care Team: Wade Donovan MD as PCP - General (Family Medicine) Leah Badillo RN as Dogman/Woman (Family Medicine) Healthcare Directives Future Scheduled Appointments Future Appointments Date Time Provider Department Center 04/22/2025 10:20 AM Maria Fernanda Campoverde MD [email or web address] 05/11/2025 4:00 PM Kayleen Garcia MD [facility] 05/12/2025 1:00 PM Darwin Moreau MD [facility] 08/19/2025 2:30 PM Hazel Alvarez MBBS [facility] Health Maintenance Health Maintenance Topic Date Due Pneumococcal Vaccine: 50+ Years (3 of 3 - PCV20 or PCV21) 08/27/2022 DTaP,Tdap,and Td Vaccines (3 - Td or Tdap) 02/27/2024 COVID-19 Vaccine (4 - season) 2024 Influenza Vaccine (1) 06/01/2025 Colorectal Cancer Screening 06/30/2025 Medicare Annual Wellness Visit (AWV) 11/25/2025 Fall Risk Performed 03/19/2026 Zoster Vaccines Completed HPV Vaccines Aged Out Notes: * Leah Badillo RN - 03/31/2025 2:40 PM CDT Chronic Care Management Date: 04/02/2025 3:25 PM Author: Leah Badillo RN Nelia calls in stating she went to bulk picker Eliquis from the pharmacy today and was told insurance is pushing it back saying she can't fill until May. Called pharmacy and they suggested Nelia call insurance to see what is happening. Nelia plans to call Time added: Time spent with patient (minutes): 2 Time spent performing chart review (minutes): 8 * Leah Badillo RN - 03/31/2025 2:40 PM CDT Chronic Care Management Date: 04/22/2025 8:55 AM Author: Leah Badillo RN Nelia calls in checking to see what time Dhruv's appt with Dr. Campoverde is today. Went through check in process for MyChart video visit. Thankful for the help. Time added: Time spent with patient (minutes): 3 Time spent performing chart review (minutes): 2 * Leah Badillo RN - 03/31/2025 2:40 PM CDT Chronic Care Management Date: 04/22/2025 11:20 AM Author: Leah Badillo RN Nelia calls back saying she never got a call for the appointment. After further discussion, Dhruv's MyChart is still pending. Re-sent activation code and also gave her the MyChart help desk number. Time added: Time spent with patient (minutes): 11 Time spent performing chart review (minutes): 3 * Jeanette Torres RN - 03/31/2025 2:40 PM CDT Chronic Care Management Date: 04/24/2025 4:35 PM Author: Jeanette Torres RN Call returned to Nelia. She is requesting referral to [facility] for second opinion. Referral pended and sent to PCP CCM time added: Time spent with patient (minutes): 3 Time spent performing chart review (minutes): 1 CCM services performed under the general supervision of Wade Donovan MD documented in this encounter Miscellaneous Notes * Addendum Note - Jeanette Torres RN - 03/31/2025 2:40 PM CDTAddended by: JEANETTE TORRES on: 04/24/2025 04:36 PM Modules accepted: Orders documented in this encounter Plan of Treatment Upcoming Encounters Date Type Department Care Team (Late st Contact Info) Description 05/11/2025 4:00 PM CDT Office Visit [facility] [address] [place] [address] [phone] Kayleen Garcia MD [address] [place] [address] [phone] 05/12/2025 1:00 PM CDT Office Visit [facility]ro[facility] [address] [place] [address] [phone] Darwin Moreau MD [address] [place] [phone] 05/21/2025 3:20 PM CDT [facility] [address] [place] [address] [phone] Maria Fernanda Campoverde MD [address] [place] [phone] 08/19/2025 2:30 PM SHIPPING SERVICES SALES REPRESENTATIVE Consult [facility] End[facility]inology [address] [place] [address] [phone] Hazel Alvarez MBBS [address] [place] [address] [phone] 08/24/2025 8:20 AM SHIPPING SERVICES SALES REPRESENTATIVE [facility] [address] [place] [address] [phone] Maria Fernanda Campoverde MD [address] [place] [phone] documented as of this encounter Goals Goal Patient Goal Type Associated Problems Recent Progress Patient-Stated? Author Routine Health Management General No Leah Badillo RN Note: Routine Health Management Care Team Patient Care Team: Wade Donovan MD as PCP - General (Family Medicine) Leah Badillo, RN as Dogman/Woman (Family Medicine) Healthcare Directives Future Scheduled Appointments Future Appointments Date Time Provider Department Center 04/22/2025 10:20 AM Maria Fernanda Campoverde MD [facility] 05/11/2025 4:00 PM Kayleen Garcia MD [facility] 05/12/2025 1:00 PM Darwin Moreau MD [facility] 08/19/2025 2:30 PM Hazel Alvarez MBBS [facility] Health Maintenance Health Maintenance Topic Date Due [...] 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 Donovan Blood pressure goal Less than 140/90 Recent blood pressures BP Readings from Last 3 Encounters: 03/23/25 112/79 03/19/25 127/84 05/27/25 (!) 126/97 Labs Lab Results Component Value Date CHOL 125 08/11/2024 HDL 31 (L) 08/11/2024 LDLCALC 78 08/11/2024 TRIG 81 08/11/2024 [facility] Lab Results Component Value Date INR 2.80 (A) 03/31/2025 INR 3.60 (A) 03/27/2025 INR 2.20 (A) 03/19/2025 Warfarin dosing per [facility] Lifestyle management (diet and exercise) Notes: 04/02/25: going to be switching over to Eliquis from Coumadin. Having issues getting the rx. Nelia calling insurance documented as of this encounter Visit Diagnoses Diagnosis Counseling and coordination of care- Primary Multiple sclerosis (HCC) Multiple sclerosis Moderate episode of recurrent major depressive disorder (HCC) Hyperlipidemia LDL goal <100 Other and unspecified hyperlipidemia documented in this encounter Additional Health Concerns Infection Onset Date Last Indicated Resolved Time MSSA 08/02/2023 08/02/2023 documented as of this encounter Care Teams Manager Highway Relationship Specialty Start Date End Date Wade Donovan MD [address] [place] [phone] PCP - General Family Medicine 02/05/24 documented as of this encounter
--- OUTSIDE RECORDS SUMMARY | 2025-04-22 10:20 | XMS_ITS | Encounter Summary ---
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 Always 11/25/2024 [facility] Utilities Answer Date Recorded In the [...] week 11/25/2024 How often do you attend [facility] or pentecostal services? 1 to 4 [...] Date Recorded PHQ-9 Total Score 0 02/24/2025 [facility] - Occupational Stress Questionnaire Answer Date [...] time in the past 12 m [facility], were you homeless or living in [...] as of this encounter Progress Notes * Maria Fernanda Campoverde MD - 04/22/2025 10:20 AM CDT Planned for video visit, but technical issues led to converting this to a phone call. Spoke with Dhruv Hinds, his Nelia. Dwain Hinds is a right-handed 64 y.o. 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 He also has a history of left high medial frontal lobe meningioma status post resection November 2023, and post resection developed embolic type strokes despite being therapeutic on warfarin. He lives at home with his Nelia who provides assistance with IADLs and ADLs. With modafinil, he has less frequent naps, and shorter naps. There is some more energy. No rash, nausea, dizziness, headache, insomnia, baseline level of anxiety (not worse than usual). [facility]. She will call back as soon as she can. 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 -increase to modafinil 200 mg daily - Continue baclofen 20 mg 3 times daily - [facility] We have made our final attempt to contact this patient and have been unable to reach them. This order will remain valid for 3 months from the date created. If the patient is interested in schedulingan appointment, please have the patient contact us at [phone]. 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 Trejo with [facility] for annual check-in's with annual MRI, willget with [facility] #Small enhancing lesion in right internal auditory canal - Assessed by ENT, no further steps required at this time 20 min phone visit for chart review, history, assessment and plan, and documentation. documented in this encounter Plan of Treatment Upcoming Encounters Date Type Department Care Team (Late st Contact Info) Description 05/11/2025 4:00 PM CDT Office Visit [facility] [address] [place] [address] [phone] Kayleen Garcia MD [address] [place] [address] [phone] 05/12/2025 1:00 PM CDT Office Visit [facility] [address] [place] [address] [phone] Darwin Moreau MD [address] [place] [phone] 05/21/2025 3:20 PM CDT Telemedicine [facility] [address] [place] [phone] Maria Fernanda Campoverde MD [address] [place] [phone] 08/19/2025 2:30 PM FILM REPLACEMENT ORDERER Consult [facility] [address] [place] [phone] Hazel Alvarez MBBS [address] [place] [phone] 08/24/2025 8:20 AM FILM REPLACEMENT ORDERER Telemedicine Neurology [address] [place] [address] Maria Fernanda Campoverde MD [address] [place] [phone] documented as of this encounter Goals Goal Patient Goal Type Associated Problems Recent Progress Patient-Stated? Author Routine Health Management General No Leah Badillo, RN Note: Routine Health Management Care Team Patient Care Team: Wade Donovan MD as PCP - General (Family Medicine) Leah Badillo, RN as School Examiner (Family Medicine) Healthcare Directives Future Scheduled Appointments Future Appointments Date Time Provider Department Center 04/22/2025 10:20 AM Maria Fernanda Campoverde MD [facility] 05/11/2025 4:00 PM Kayleen Garcia MD [facility] 05/12/2025 1:00 PM Darwin Moreau MD [facility] 08/19/2025 2:30 PM Hazel Alvarez MBBS [facility] Health Maintenance Health Maintenance Topic Date Due [...] 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 Donovan Blood pressure goal Less than 140/90 Recent blood pressures BP Readings from Last 3 Encounters: 03/23/25 112/79 03/19/25 127/84 02/24/25 (!) 126/97 Labs Lab Results Component Value Date CHOL 125 08/11/2024 HDL 31 (L) 08/11/2024 LDLCALC 78 08/11/2024 TRIG 81 08/11/2024 [facility] Lab Results Component Value Date INR 2.80 (A) 03/31/2025 INR 3.60 (A) 03/27/2025 INR 2.20 (A) 03/19/2025 Warfarin dosing per [facility] Lifestyle management (diet and exercise) Notes: 04/02/25: going to be switching over to Eliquis from Coumadin. Having issues getting the rx. 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
--- OUTSIDE RECORDS SUMMARY | 2025-04-24 08:00 | XMS_ITS | Encounter Summary ---
Author Organization [facility] Address [address] [place] [phone] Care Team Providers Care Spring Coiler Name Role Phone Elsewhere, Pcp Primary Care Provider Unavailabl e Encounter Details Date Type Department Care Team (Latest Contact Info) Description 04/24/2025 8:00 AM CDT - 04/24/2025 11:59 PM CDT Hospital Encounter Department of Laboratory Medicine and Pathology, [place], [place] [address] [place] [phone] Marcos Watkins M.D. [address] [place] [phone] Embolus Pulmonary Personal History Discharge Disposition: Home or Self Care Social History Tobacco Use Types Packs/Day Years Used Date Smoking Tobacco: Former Cigarettes Passive Smoke Exposure: Current Smokeless Tobacco: Former Chew Alcohol Use Standard Drinks/Week Comments No 0 (1 standard drink = 0.6 oz pur e alcohol) [facility] Utilities Answer Date Recorded In the past 12 months has [facility] [employer], gas, oil, or water [employer] threatened to shut off services in your [...] your living situation today? [facility] live 03/05/2025 Education Answer Date Recorded What is the highest level of school you have completed or the highest degree you have received? 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 First line medication for pain. Do not exceed 4,000 mg of acetaminophen in a day from all sources. 03/07/2025 apixaban (Eliquis) 5 mg tablet Take 5 mg by mouth 2 (two) times a day. 04/02/2025 atorvastatin (Lipitor) 20 mg tablet Take 1 [...] CDT Appointment Department of Laboratory Medicine in [address] [phone] Bill Pacheco M.D. [address] [place] [phone] 05/01/2025 1:15 PM CDT Clinical Support Division of Allergic Diseases in [place], [place] [address] [place] [phone] Simi Hart MPAS, P.A.-C. [address] [place] [phone] 05/01/2025 2:00 PM CDT Comprehensive Visit Division of Allergic Diseases in [place], [place] [address] [place] [phone] Darwin Martinez M.D., Ph.D. [address] [place] [phone] 05/15/2025 2:23 PM CDT Hospital Encounter [facility] Bed Planning Bill Pacheco M.D. [address] [place] [phone] 05/15/2025 2:23 PM CDT - 05/15/2025 4:26 PM CDT Surgery [facility] [address] [place] [phone] Bill Pacheco M.D. [address] [place] [phone] URETEROSCOPY WITH LASER LITHOTRIPSY,WITH CALYXO, PROCEED INDICATED [...] Villarreal R.N. documented as of this encounter Procedures Procedure Name Priority Date/Time Associated Diagnosis Comments ACTIVATED PARTIAL THROMBOPLASTIN TIME (APTT), P Routine 04/24/2025 8:37 AM CDT Embolus Pulmonary Personal History PROTHROMBIN TIME (PT), P Routine 04/24/2025 8:37 AM CDT Embolus Pulmonary Personal History CBC WITH DIFFERENTIAL, B Routine 04/24/2025 8:37 AM CDT Embolus Pulmonary Personal History COMPREHENSIVE METABOLIC PANEL, S/P Routine 04/24/2025 8:36 AM CDT Embolus Pulmonary Personal History documented in this encounter Results * APTT (Activated Partial Thromboplastin Time) (04/24/2025 8:37 AM CDT) [facility] Activated Partial Thrombopl Time, P 33 25 - 37 sec 04/24/2025 9:30 AM CDT DTL Blood (Blood, Venous) 04/24/2025 8:37 AM CDT 04/24/2025 9:03 AM CDT Marcos Watkins M.D. LAB BLOOD ADD-ON Final Re sult Performing Organization Address [facility] de Phone Number [facility] [address] [facility] 200 [place] [address] * (ABNORMAL) Prothrombin Time (PT) (04/24/2025 8:37 AM CDT) Pathologist [facility] Prothrombin Time, P 14.3(H) 9.4 - 12.5 sec 04/24/2025 9:30 AM CDT DTL INR 1.3 0.9 - 1.1 04/24/2025 9:30 AM CDT DTL Comment: ----ADDITIONAL INFORMATION---- Standard intensity warfarin therapeutic range: 2.0 to 3.0 High intensity warfarin therapeutic range: 2.5 to 3.5 Blood (Blood, Venous) 04/24/2025 8:37 AM CDT 04/24/2025 9:03 AM CDT Marcos Watkins M.D. LAB BLOOD ADD-ON Final Re sult Performing Organization Address [facility] Co de Phone Number [facility] [address] [facility] 200 [place] [address] * (ABNORMAL) CBC with Differential, Blood (04/24/2025 8:37 AM CDT) Pathologist [facility] Hemoglobin 14.3 13.2 - 16.6 g/dL 04/24/2025 9:15 AM CDT DTL Hematocrit 46.2 38.3 - 48.6 % 04/24/2025 9:15 AM CDT DTL Erythrocytes 5.22 4.35 - 5.65 x10(12)/L 04/24/2025 9:15 AM CDT DTL MCV 88.5 78.2 - 97.9 fL 04/24/2025 9:15 AM CDT DTL RBC Distrib Width 15.8(H) 11.8 - 14.5 % 04/24/2025 9:15 AM CDT DTL Platelet Count 296 135 - 317 x10(9)/L 04/24/2025 9:15 AM CDT DTL Leukocytes 7.2 3.4 - 9.6 x10(9)/L 04/24/2025 9:15 AM CDT DTL Neutrophils 5.27 1.56 - 6.45 x10(9)/L 04/24/2025 9:15 AM CDT [facility] Lymphocytes 1.13 0.95 - 3.07 x10(9)/L 04/24/2025 9:15 AM CDT DTL Monocytes 0.68 0.26 - 0.81 x10(9)/L 04/24/2025 9:15 AM CDT DTL Eosinophils 0.11 0.03 - 0.48 x10(9)/L 04/24/2025 9:15 AM CDT DTL Basophils 0.03 0.01 - 0.08 x10(9)/L 04/24/2025 9:15 AM CDT DTL Blood (Blood, Venous) 04/24/2025 8:37 AM CDT 04/24/2025 9:03 AM CDT Marcos Watkins M.D. LAB BLOOD ADD-ON Final Re sult [facility] [address] [place] [address], [place] DTL [facility] [place] [facility] [address] [place] [address] [facility] [address] [place] [address] * (ABNORMAL) Comprehensive Metabolic Panel (04/24/2025 8:36 AM CDT) [facility] Potassium, S 4.5 3.6 - 5.2 mmol/L 04/24/2025 9:35 AM CDT DTL Sodium, S 141 135 - 145 mmol/L 04/24/2025 9:35 AM CDT DTL Chloride, S 107 98 - 107 mmol/L 04/24/2025 9:35 AM CDT DTL Bicarbonate, S 24 22 - 29 mmol/L 04/24/2025 9:35 AM CDT DTL Anion Gap 10 7 - 15 04/24/2025 9:35 AM CDT DTL BUN (Blood Urea Nitrogen), S 15 8 - 24 mg/dL 04/24/2025 9:35 AM CDT DTL Creatinine 0.82 0.74 - 1.35 mg/dL 04/24/2025 9:35 AM CDT DTL Estimated GFR (eGFR) >90 >=60 mL/min/BS A 04/24/2025 9:35 AM CDT DTL Comment: Estimated GFR calculated using the 2020 CKD_EPI creatinine equation. Calcium, Total, S 8.9 8.8 - 10.2 mg/dL 04/24/2025 9:35 AM CDT DTL Glucose, S 104 70 - 140 mg/dL 04/24/2025 9:35 AM CDT DTL Protein, Total, S 6.6 6.3 - 7.9 g/dL 04/24/2025 9:35 AM CDT DTL Albumin, S 3.4(L) 3.5 - 5.0 g/dL 04/24/2025 9:35 AM CDT DTL Aspartate Aminotransferase (AST), S 21 8 - 48 U/L 04/24/2025 9:35 AM CDT DTL Alkaline Phosphatase, S 133(H) 40 - 129 U/L 04/24/2025 9:35 AM CDT DTL Alanine Aminotransferase (ALT), S 24 7 - 55 U/L 04/24/2025 9:35 AM CDT DTL Bilirubin, Total, S 0.3 0.0 - 1.2 mg/dL 04/24/2025 9:35 AM CDT DTL Blood (Blood, Venous) 04/24/2025 8:36 AM CDT 04/24/2025 8:59 AM CDT us Marcos Watkins M.D. LAB BLOOD ADD-ON Final Re sult [facility] [address] [place] [address], [facility] [address] [place] [address] documented in this encounter Visit Diagnoses Diagnosis Nephrolithiasis- Primary Embolus Pulmonary Personal History Nephrolithiasis documented in this encounter Additional Health Concerns Active Problems Noted Date Diagnosed Date Autogenerated Problem 03/27/2025 documented as of this encounter Care Teams Spring Coiler Relationship Specialty Start Date End Date Elsewhere, Pcp PCP - General Family Medicine 09/06/17 documented as of this encounter
--- OUTSIDE RECORDS SUMMARY | 2025-04-24 10:30 | XMS_ITS | Encounter Summary ---
Author Organization [facility] Address [address] [place] [address] Care Team Providers Care Computing Systems Mechanic Name Role Phone Elsewhere, Pcp Primary Care Provider Unavailabl e Reason for Visit * Outpatient (Routine) - Closed Specialty Diagnoses / Procedures Referred By Joan krause Referred To Contact Vascular Medicine Diagnoses Embolus Pulmonary Personal History Marcos Watkins M.D. [address] [place] [phone] Phone: tel: fax: [facility] Referral ID Status Reason Start Date Expiration Date Visits Re quested Visits Authorized [id number] Closed 03/27/2025 09/26/2026 1 1 Encounter Details Date Type Department Care Team (Latest Contact Info) Description 04/24/2025 10:30 AM CDT Comprehensive Visit Department of Vascular Medicine in [place], [place] [address] [place] [phone] Patricia Presley APRN, C.N.P., M.S. [address] [place] [phone] Anticoagulant Therapy (Primary Dx); Embolus Pulmonary Personal History Social History Tobacco Use Types Packs/Day Years Used Date Smoking Tobacco: Former Cigarettes Passive Smoke Exposure: Current Smokeless Tobacco: Former Chew Alcohol Use Standard Drinks/Week Comments No 0 (1 standard drink = 0.6 oz pur e alcohol) [facility] Utilities Answer Date Recorded In the past 12 months has [facility] [employer], oil, or water [employer] threatened to shut off services in your [...] your living situation today? I have a [facility] place to live 03/05/2025 Education Answer Date Recorded What is the highest level of school you have completed or the highest degree you have received? 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 - 04/24/2025 10:30 AM CDT Before the procedure follow instructions in the table below. The team doing the procedure will make final decision when it is safe to restart Eliquis (apixaban) Date Day Eliquis (Apixaban) 05/11 - 4 Last dose 05/12 - 3 Do not take 05/13 - 2 Do not take 05/14 - 1 Do not take 05/15 Procedure day Do not take 05/16 05/17 Resume or as directed by your procedure team documented in this encounter Consult Notes * Patricia Presley APRN, C.N.P., M.S. - 04/24/2025 10:30 AM CDT Referring Provider: Marcos Watkins M.D. Reason for Consult: saddle embolisms 8 years ago. Now scheduled for ureteroscopy on 05/15, requesting evaluation and peroi-op A/C recommendations SUBJECTIVE CHIEF COMPLAINT / REASON FOR VISIT Mr. Hinds is a 64 y.o. male for whom periprocedural recommendations of anticoagulation management have been requested. History of Present Illness He is scheduled for URETEROSCOPY WITH LASER LITHOTRIPSY,WITH CALYXO, PROCEED INDICATED EXCHANGE URETERAL STENT on 05/15/2025. He presents in the wheelchair and is accompanied by his . 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 Warfarin was recently transitioned to Eliquis 5 mg twice daily. The following portions of the patient's history were reviewed and updated as appropriate: allergies, current medications, family history, medical history, social history, surgical history, problem list, labs, diagnostics tests. I reviewed the pertinent clinical notes in the electronic health record. REVIEW OF SYSTEMS 14 systems reviewed. Pertinent positives and pertinent negatives are documented in the history of present illness. OBJECTIVE VITALS BP 106/74 (BP Location: Left arm, Patient Position: Sitting, Cuff Size: Regular) Pulse 109 Constitutional Appearance: Normal appearance. Cardiovascular Rate and Rhythm: Normal rate. Pulses: Normal pulses. Neurological General: No focal deficit present. Mental Status: He is alert and oriented to person, place, and time. DIAGNOSTIC REVIEW All labs and diagnostic studies were reviewed. See HPI. 04/24/25 Hgb 14.3 Plts 296 Cr. 0.82 eGFR >90 Assessment & Plan #1 Anticoagulant Therapy #2 Embolus Pulmonary Personal History In summary Mr. Hinds is a 64 y.o. male with a history of unprovoked submassive pulmonary embolism in 2018 on chronic anticoagulation therapy on Eliquis. He is scheduled for URETEROSCOPY WITH LASER LITHOTRIPSY,WITH CALYXO, PROCEED INDICATED EXCHANGE URETERAL STENT on 05/15/2025. In preparation for the procedure he will follow the recommendations provided below: Before the procedure: 1. Hold Eliquis 3 days prior to the procedure. After the procedure: 1. Resume Eliquis postprocedure in 48 to 72 hours when clinically safe. Patricia Presley APRN, C.N.P., M.S. documented in this encounter Plan of Treatment Upcoming Encounters Date Type Department Care Team (Latest Contact Info) Description 05/01/2025 11:30 AM CDT Appointment Department of Laboratory Medicine in [address] [phone] Bill Pacheco M.D. [address] [place] [phone] 05/01/2025 1:15 PM CDT Clinical Support Division of Allergic Diseases in [place], [place] [address] [place] [phone] Simi Hart, DANIS, P.A.-C. [address] [place] [phone] 05/01/2025 2:00 PM CDT Comprehensive Visit Division of Allergic Diseases in [place], [place] [address] [place] [phone] Darwin Martinez M.D., Ph.D. [address] [place] [phone] 05/15/2025 2:23 PM CDT Hospital Encounter [facility] Bed Planning Bill Pacheco M.D. [address] [place] [phone] 05/15/2025 2:23 PM CDT - 05/15/2025 4:26 PM CDT Surgery [facility] [address] [place] [phone] Bill Pacheco M.D. [address] [place] [phone] URETEROSCOPY WITH LASER LITHOTRIPSY,WITH CALYXO, PROCEED INDICATED Scheduled Procedures Name Priority Associated Diagnoses Date/Ti me URETEROSCOPY WITH LASER LITHOTRIPSY Nephrolithiasis 05/15/2025 2:23 PM CDT EXCHANGE URETERAL STENT Nephrolithiasis 05/15/2025 2:23 PM CDT documented as of this encounter Goals Goal Patient Goal Type Associated Problems Recent Progress Patient-Stated? Author Autogenerat ed Goal Care Plan Autogenerated Problem Vidhya Martinez R.N. documented as of this encounter Visit Diagnoses Diagnosis Nephrolithiasis- Primary Anticoagulant Therapy- Primary Embolus Pulmonary Personal History Nephrolithiasis documented in this encounter Additional Health Concerns Active Problems Noted Date Diagnosed Date Autogenerated Problem 03/27/2025 documented as of this encounter Care Teams Computing Systems Mechanic Relationship Specialty Start Date End Date Elsewhere, Pcp PCP - General Family Medicine 09/06/17 documented as of this encounter
--- OUTSIDE RECORDS SUMMARY | 2025-04-27 17:25 | XMS_ITS | Encounter Summary ---
Author Organization [facility] er Address [address] [place] [address] Care Team Providers Care Emt Name Role Phone Wade Donovan MD Primary Care Provider [phone] Reason for Visit * Reason Onset Date Comments PT Referral 03/19/2025 Encounter Details Date Type Department Care Team (Late st Contact Info) Description 03/19/2025 Telephone [place] [address] [phone] Wade Donovan MD 1705 [facility] 20 [place] [phone] PT Referral Social History Tobacco Use Types Packs/Day Years [...] from your doctor or pharmacy? Always 11/25/2024 [facility] Utilities Answer Date Recorded In the past [...] often do you attend chur ch or protestant services? 1 to 4 times per year [...] Date Recorded PHQ-9 Total Score 0 02/24/2025 [facility] of Occupat ional Health - Occupational Stress [...] slept in a fci (including now)? No 11/07/2023 Housing Stability Vital Sign Answer Jose e Recorded In the last 12 months, was t here a time when you were not able to pay the mortgage or rent on time? No 11/25/2024 In the past 12 months, how m any times have you moved where you were living? 0 11/25/2024 At any time in the past 12 m [facility], were you homeless or living in a fci (including now)? No 11/25/2024 Interpersonal Safety Questionnaire [...] encounter Miscellaneous Notes * Telephone Encounter - Ashley Epsteingh - 03/19/2025 3:26 PM CDT Faxed Physical Therapy referral to [facility] Rudy Fischer documented in this encounter Plan of Treatment Upcoming Encounters Date Type Department Care Team (Late st Contact Info) Description 05/11/2025 4:00 PM CDT Office Visit [facility] [address] [place] [address] [phone] Kayleen Garcia MD [address] [place] [address] [phone] 05/12/2025 1:00 PM CDT Office Visit [facility] [address] [place] [address] [phone] Darwin Moreau MD 210 [place] [phone] 05/21/2025 3:20 PM CDT [facility] [address] [place] [phone] Maria Fernanda Campoverde MD 210 [place] [phone] 08/19/2025 2:30 PM STEERSMAN Consult [facility] [address] [place] [address] [phone] Hazel Alvarez MBBS [address] [place] [address] [phone] 08/24/2025 8:20 AM STEERSMAN Tele[facility]icine Neu[facility] [address] [place] [address] Maria Fernanda Campoverde MD 210 [facility] [place] [phone] documented as of this encounter Goals Goal Patient Goal Type Associated Problems Recent Progress Patient-Stated? Author Routine Health Management General No Leah Badillo, RN Note: Routine Health Management Care Team Patient Care Team: Wade Donovan MD as PCP - General (Family Medicine) Leah Badillo, RN as Threading Machine Operator (Family Medicine) Healthcare Directives Future Scheduled Appointments Future Appointments Date Time Provider Department Center 04/22/2025 10:20 AM Maria Fernanda Campoverde MD [facility] 05/11/2025 4:00 PM Kayleen Garcia MD [facility] 05/12/2025 1:00 PM Darwin Moreau MD [facility] 08/19/2025 2:30 PM Hazel Alvarez MBBS [facility] Health Maintenance Health Maintenance Topic Date [...] 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 (HCC) [facility] Neurology 03/23/25 Notes: Cardiovascular Management General On [...] 08/11/2024 LDLCALC 78 08/11/2024 TRIG 81 08/11/2024 [facility] anticoag Clinic Lab Results Component Value Date INR 2.80 (A) 03/31/2025 INR 3.60 (A) 03/27/2025 INR 2.20 (A) 03/19/2025 Warfarin dosing per [facility] Lifestyle management (diet and exercise) Notes: 04/02/25: going to be switching over to Eliquis from Coumadin. Having issues getting the rx. Nelia calling insurance documented as of this encounter Visit Diagnoses Not on filedocumented in this encounter Additional Health Concerns Infection Onset Date Last Indicated Resolved Time MSSA 08/02/2023 08/02/2023 documented as of this encounter Care Teams Emt Relationship Specialty Start Date End Date Wade Donovan MD [address] [place] [phone] PCP - General Family Medicine 02/05/24 documented as of this encounter
--- OUTSIDE RECORDS SUMMARY | 2025-04-27 17:25 | XMS_ITS | Encounter Summary ---
Author Organization [facility] er Address [address] [place] [address] Care Team Providers Care Ship Unloader Name Role Phone Wade Donovan MD Primary Care Provider [phone] Reason for Visit * Reason Onset Date Comments Med Refill Med Refill 11/08/2021 Encounter Details Date Type Department Care Team (Late st Contact Info) Description 10/28/2021 Refill [place] [address] [place] [address] Adarsh Carpenter MD Other pulmonary embolism without [...] Family Three times a week 08/11/2019 Attends [employer] Never 08/11 Active Member of Clubs [...] Date Recorded PHQ-9 Total Score 0 07/23/2020 [facility] of Occupat ional Health - [...] 10/27/2021 INR 0.9 - 1.1 2.40 (A) INE ENGINEER documented in this encounter Plan of Treatment Upcoming Encounters Date Type Department Care Team (Late st Contact Info) Description 05/11/2025 4:00 PM CDT Office Visit [facility] [address] [place] [phone] Kayleen Garcia MD [address] [place] [phone] 05/12/2025 1:00 PM CDT Office Visit [facility] [address] [place] [address] [phone] Darwin Moreau MD 210 [place] [phone] 05/21/2025 3:20 PM CDT [facility] [address] [place] [address] [phone] Maria Fernanda Campoverde MD [address] [place] [phone] 08/19/2025 2:30 PM TURBINE ENGINEER Consult [facility] [address] [place] [address] [phone] Hazel Alvarez MBBS [address] [place] [address] [phone] 08/24/2025 8:20 AM TURBINE ENGINEER [facility] [address] [place] [phone] Maria Fernanda Campoverde MD [address] [place] [phone] documented as of this encounter Visit Diagnoses Diagnosis Other pulmonary embolism without acute cor pulmonale, unspecified chronicity (HCC) documented in this encounter Additional Health Concerns Infection Onset Date Last Indicated Resolved Time MSSA 10/04/2018 10/04/2018 06/28/2022 8:27 AM CDT MSSA 06/19/2023 07/04/2023 07/17/2023 2:29 PM CDT MSSA 08/02/2023 08/02/2023 documented as of this encounter Care Teams Ship Unloader Relationship Specialty Start Date End Date Wade Donovan MD [address] [place] [phone] PCP - General Family Medicine 02/05/24 documented as of this encounter
--- OUTSIDE RECORDS SUMMARY | 2025-04-27 17:25 | XMS_ITS | Encounter Summary ---
Author Organization [facility] er Address [address] [place] [address] Care Team Providers Care Last Greaser Name Role Phone Wade Donovan MD Primary Care Provider [phone] Encounter Details Date Type Department Care Team (Late st Contact Info) Description 03/19/2025 Telephone [place] [address] [place] [phone] Wade Donovan MD [facility] [address] [place] [address] Social History Tobacco Use Types Packs/Day Years [...] from your doctor or pharmacy? Always 11/25/2024 [facility] Utilities Answer Date Recorded In [...] How often do you attend chur or baptism services? 1 to 4 times [...] Date Recorded PHQ-9 Total Score 0 02/24/2025 [facility] [place] of Occupat ional Health - Occupational Stress [...] any time in the past 12 m [facility], were you homeless or [...] Never 11/25/2024 How often does anyone, inclu chela family and friends, threaten you with harm? [...] [facility] Visit [facility] [address] [place] [address] [phone] Kayleen Garcia MD [address] [place] [address] [phone] 05/12/2025 1:00 PM CDT Office Visit [facility] [address] [place] [address] [phone] Darwin Moreau MD [address] [place] [phone] 05/21/2025 3:20 PM CDT [facility] [address] [place] [address] [phone] Maria Fernanda Campoverde MD [address] [place] [phone] 08/19/2025 2:30 PM GEOPHYSICAL PARTY CHIEF Consult [facility] [address] [place] [address] [phone] Hazel Alvarez MBBS [address] [place] [address] [phone] 08/24/2025 8:20 AM GEOPHYSICAL PARTY CHIEF [facility] [address] [place] [address] [phone] Maria Fernanda Campoverde MD [address] [place] [phone] documented as of this encounter Goals Goal Patient Goal Type Associated Problems Recent Progress Patient-Stated? Author Routine Health Management General Leah Lopez, RN Note: Routine Health Management Care Team Patient Care Team: Wade Donovan MD as PCP - General (Family Medicine) Leah Badillo, RN as Family Preservation Caseworker (Family Medicine) Healthcare Directives Future Scheduled Appointments Future Appointments Date Time Provider Department Center 04/22/2025 10:20 AM Maria Fernanda Campoverde MD [facility] 05/11/2025 4:00 PM Kayleen Garcia MD [facility] [place] [facility] 05/12/2025 1:00 PM [facility] 08/19/2025 2:30 PM Hazel Alvarez MBBS [facility] Health Maintenance Health Maintenance Topic Date [...] 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 (HCC) [facility] Neurology 03/23/25 Notes: Cardiovascular Management General On [...] 08/11/2024 LDLCALC 78 08/11/2024 TRIG 81 08/11/2024 [facility] anticoag Clinic Lab Results Component Value Date INR 2.80 (A) 03/31/2025 INR 3.60 (A) 03/27/2025 INR 2.20 (A) 03/19/2025 Warfarin dosing per [facility] Antico Clinic Lifestyle management (diet and exercise) Notes: 04/02/25: going to be switching over to Eliquis from Coumadin. Having issues getting the rx. Nelia calling insurance documented as of this encounter Visit Diagnoses Not on filedocumented in this encounter Additional Health Concerns Infection Onset Date Last Indicated Resolved Time MSSA 08/02/2023 08/02/2023 documented as of this encounter Care Teams Last Greaser Relationship Specialty Start Date End Date Wade Donovan MD 1705 [facility] 20 [place] [address] PCP - General Family Medicine 02/05/24 documented as of this encounter
--- OUTSIDE RECORDS SUMMARY | 2025-04-27 17:25 | XMS_ITS | Encounter Summary ---
Author Organization [facility] Address [address] [place] [address] Care Team Providers Care Carver Hand Name Role Phone Elsewhere, Pcp Primary Care Provider Unavailabl e Encounter Details Date Type Department Care Team ( Contact Info) Description 01/22/2025 Orders Only Department of Urology in [place], [place] [address] [place] [phone] [facility], Provider, Stone Kid[facility] Social History Tobacco Use Types Packs/Day Years Used Date Smoking Tobacco: Former Cigarettes Smokeless Tobacco: Former Chew Alcohol Use Standard Drinks/Week Comments No 0 (1 standard drink = 0.6 oz pur e alcohol) Hunger Vital Sign Answer Date Recorded Worried About Running Out of Food in the Last Ye ar Never true 08/26/2019 Ran Out of Food in the Last Year Never true 08/26/2019 PRAPARE - Transportation Answer Date Re corded Lack of Transportation (Medical) No 08/26/2019 Lack of Transportation (Non-Medical) No 08/26/2019 Education Answer Date Recorded What is the highest level of school you have completed or the highest degree you have received? 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 [address] [place] [address] 05/01/2025 1:15 PM CDT Clinical Support Division of Allergic Diseases in [place], [place] [address] [place] [address] Simi Hart, NEYS, P.A.-C. [address] [place] [phone] 05/01/2025 2:00 PM CDT Comprehensive Visit Division of Allergic Diseases in [place], [place] [address] [place] [address] Darwin Martinez M.D., Ph.D. [address] [place] [phone] 05/15/2025 2:23 PM CDT Hospital Encounter [facility] Bed Planning Bill Pacheco M.D. [address] [place] [address] 05/15/2025 2:23 PM CDT - 05/15/2025 4:26 PM CDT Surgery [facility] OR [address] [place] [address] Bill Pacheco M.D. [address] [place] [phone] URETEROSCOPY WITH LASER LITHOTRIPSY,WITH CALYXO, PROCEED INDICATED Scheduled Procedures Name Priority Associated Diagnoses Date/Ti me URETEROSCOPY WITH LASER LITHOTRIPSY Nephrolithiasis 05/15/2025 2:23 PM CDT EXCHANGE URETERAL STENT Nephrolithiasis 05/15/2025 2:23 PM CDT documented as of this encounter Results * (ABNORMAL) Bacterial Culture, Aerobic + Susceptibility, Urine (02/04/2025 9:52 AM CDT) Urine Culture With urogenital microbiota, susceptibilities not performed per laboratory criteria. (A) 02/09/2025 1:46 PM CDT DTL Urine Culture AEROCOCCUS URINAE >100,000 cfu/mL (A) 02/09/2025 1:46 PM CDT DTL Urine Culture ENTEROCOCCUS FAECALIS 10,000-100,000 cfu/mL (A) 02/09/2025 1:46 PM CDT DTL Urine (Urine, Midstream) 02/04/2025 9:52 AM CDT 02/04/2025 11:06 AM CDT Comment:Specimen Source Site : Urine Narrative Organism Antibiotic Method Susceptibility Aerococcus urinae Penicillin SUSCEPTIBILITY , ORLY (MCG/ML) <=0.06 mcg/mL: Susceptible Aerococcus urinae Ceftriaxone SUSCEPTIBILITY , ORLY (MCG/ML) 1 mcg/mL: Susceptible Aerococcus urinae Vancomycin SUSCEPTIBILITY , ORLY (MCG/ML) <=1 mcg/mL: Susceptible Enterococcus faecalis Levofloxacin SUSCEPTIBI LITY, ORLY (MCG/ML) 1 mcg/mL: Susceptible Enterococcus faecalis Nitrofurantoin SUSCEPTIBI LITY, ORLY (MCG/ML) <=32 mcg/mL: Susceptible Enterococcus faecalis Vancomycin SUSCEPTIBI LITY, ORLY (MCG/ML) <=2 mcg/mL: Susceptible Enterococcus faecalis Penicillin SUSCEPTIBI LITY, ORLY (MCG/ML) 4 mcg/mL: Susceptible Bill Pacheco M.D. LAB MICROBIOLOGY - GENERA L ORDERABLES Final Result [facility] [address] [place] [address], [facility] [address] [place] [address] * (ABNORMAL) Urinalysis, with Microscopic: Urine, Midstream (02/04/2025 9:52 AM CDT) Source Urine, Urine, Midstream 02/04/2025 10:28 AM CDT DTL Color, U Yellow 02/04/2025 10:29 AM CDT DTL Clarity, U Clear 02/04/2025 10:29 AM CDT DTL Protein, U 45(H) <26 mg/dL 02/04/2025 11:26 AM CDT DTL Protein/Osmol ality 0.57(H) <0.42 ratio 02/04/2025 11:26 AM CDT DTL Predicted 24 HR Protein, U 551(H) <229 mg/24 h 02/04/2025 11:26 AM CDT DTL Predicted Range 175-1737 mg/24 h 02/04/2025 11:26 AM CDT DTL Urine (Urine, Midstream) 02/04/2025 9:52 AM CDT 02/04/2025 10:28 AM CDT us Bill Pacheco M.D. LAB URINE ORDERABLES Mini nam Result [facility] [address] [place] [address], [facility] [address] [place] [address] * Basic Metabolic Panel (02/04/2025 9:38 AM CDT) Pathologist [facility] Potassium, S 4.4 3.6 - 5.2 mmol/L 02/04/2025 10:52 AM CDT DTL Sodium, S 142 135 - 145 mmol/L 02/04/2025 10:52 AM CDT DTL Chloride, S 106 98 - 107 mmol/L 02/04/2025 10:52 AM CDT DTL Bicarbonate, S 27 22 - 29 mmol/L 02/04/2025 10:52 AM CDT DTL Anion Gap 9 7 - 15 02/04/2025 10:52 AM CDT DTL BUN (Blood Urea Nitrogen), S 14 8 - 24 mg/dL 02/04/2025 10:52 AM CDT DTL Creatinine 0.87 0.74 - 1.35 mg/dL 02/04/2025 10:52 AM CDT DTL Estimated GFR (eGFR) >90 >=60 mL/min/BSA 02/04/2025 10:52 AM CDT DTL Comment: Estimated GFR calculated using the 2020 CKD_EPI creatinine equation. Calcium, Total, S 9.1 8.8 - 10.2 mg/dL 02/04/2025 10:52 AM CDT DTL Glucose, S 91 70 - 140 mg/dL 02/04/2025 10:52 AM CDT DTL Blood (Blood, Venous) 02/04/2025 9:38 AM CDT 02/04/2025 10:22 AM CDT us Bill Pacheco M.D. LAB BLOOD ADD-ON Final Re sult [facility] [address] [place] [address], [facility] DTL [facility] [address] [place] [address] documented in this encounter Visit Diagnoses Diagnosis Stone Kidney Nephrolithiasis documented in this encounter Care Teams Carver Hand Relationship Specialty Start Date End Date Elsewhere, Pcp PCP - General Family Medicine 09/06/17 documented as of this encounter
--- OUTSIDE RECORDS SUMMARY | 2025-04-27 17:25 | XMS_ITS | Encounter Summary ---
Author Organization [facility] er Address [address] [place] [address] Care Team Providers Care Technical Staff Assistant Name Role Phone Wade Donovan MD Primary Care Provider [phone] Encounter Details Date Type Department Care Team (Late st Contact Info) Description 08/07/2019 Telephone [place] [address] [place] [address] Adarsh Carpenter MD Social History Tobacco Use [...] Family Three times a week 08/11/2019 Attends [employer] Services Never 08/11 Active Member of Clubs [...] Answer Date Recorded PHQ-2 Score 9 08/11/2019 [facility] [place] of Occupat ional Health - Occupational Stress [...] Visit [facility] [address] [place], [place] 338164 Kayleen Garcia MD [address] [place], [place] [phone] 05/12/2025 1:00 PM CDT Office Visit [facility] [address] [place], [place] [phone] Darwin oMreau MD 210 [facility] [place] [phone] 05/21/2025 3:20 PM CDT [facility] [address] [place], [place] [phone] Maria Fernanda Campoverde MD 210 [place] [phone] 08/19/2025 2:30 PM ORDER DEPARTMENT SUPERVISOR Consult [facility] [address] [place], [place] [phone] Hazel Alvarez MBBS [address] [place] [address] 08/24/2025 8:20 AM ORDER DEPARTMENT SUPERVISOR [facility] [address] [place] [address] Maria Fernanda Campoverde MD 210 [place] [phone] documented as of this encounter Visit Diagnoses Not on filedocumented in this encounter Additional Health Concerns Infection Onset Date Last Indicated Resolved Time MSSA 10/04/2018 10/04/2018 06/28/2022 8:27 AM CDT MSSA 06/19/2023 07/04/2023 07/17/2023 2:29 PM CDT MSSA 08/02/2023 08/02/2023 documented as of this encounter Care Teams Technical Staff Assistant Relationship Specialty Start Date End Date Wade Donovan MD [address] [place] [address] PCP - General Family Medicine 02/05/24 documented as of this encounter
--- OUTSIDE RECORDS SUMMARY | 2025-04-27 17:25 | XMS_ITS | Encounter Summary ---
Author Organization [facility] er Address [address] [place] [address] Care Team Providers Care Associate Store Manager Name Role Phone Wade Donovan MD Primary Care Provider [phone] Reason for Visit * Reason Onset Date Comments TCM Follow-up 03/09/2025 Encounter Details Date Type Department Care Team (Late st Contact Info) Description 03/09/2025 Telephone [place] [address] [place] [phone] Wade Donovan MD 1705 [facility] 20 [place] [phone] TCM Follow-up Social History Tobacco Use Types Packs/Day Years [...] from your doctor or pharmacy? Always 11/25/2024 [facility] Utilities Answer Date Recorded In the [...] Date Recorded PHQ-9 Total Score 0 02/24/2025 [facility] of Occupat ional Health - [...] slept in a custodial (including now)? No 11/07/2023 Housing Stability Vital Sign Answer Jose e Recorded In the last 12 months, was t here a time when you were not able to pay the mortgage or rent on time? No 11/25/2024 In the past 12 months, how m any times have you moved where you were living? 0 11/25/2024 At any time in the past 12 m [facility], were you homeless or living in a custodial (including now)? No 11/25/2024 Interpersonal Safety Questionnaire [...] Telephone Encounter - Vidhya Bain LPN - 03/19/2025 9:23 AM CDT Noted * Telephone Encounter - Lalitha Pathak - 03/19/2025 9:06 AM CDT Scheduled hospital F/U w/Dr. Donovan at [facility] for 03.19.25 in the afternoon. * Telephone Encounter - Vidhya Bain LPN - 03/19/2025 8:09 AM CDT Please try to call Anyi today in regards to scheduling. * Telephone Encounter - Vidhya Bain LPN - 03/18/2025 10:34 AM CDT Noted, hopefully Dhruv or Anyi calls us back to schedule. * Telephone Encounter - Mabel Loomis - 03/18/2025 10:24 AM CDT I called pt and LMTCB. Per Nurse: [facility] 03/08 If able to contact please offer hospital f/u appt. If seen on or before 03/20, then appt can be TCM.[email or web address]... Thanks. * Telephone Encounter - Kary Domingo RN - 03/18/2025 8:36 AM CDT Hospital Follow-Up Phone Call Admission Date: 03/04/25 Discharge Date: 03/08/25 Discharging Facility: [facility] Discharge Diagnosis: nephrolithiasis with ureteroscopy with lithotripsy Follow-Up Call: Date of Call: 03/10/25 Time of Call: [phone] Spoke with: (!) Unable to Contact Number of Call Attempts: 2 Updates for Provider: ACTIVE ISSUES REQUIRING FOLLOW UP -follow up CT in 2 weeks -warfarin: 2 mg daily until follow up (patient is being discharged on levofloxacin 500 mg daily x 5days and appears sensitized to warfarin) Post Hospital follow up: 03/09/2025 - please work with patient's outpatient provider to order PT/INR and f/u on 03/09/2025. Medications/Orders: Were there any medication changes?: (!) Yes (comment) Any referrals or testing to be ordered after D/C?: (!) Yes What was ordered?: follow up CT in 2 weeks The following portions of the patient's chart were reviewed and updated as appropriate: Other: If patient has any future questions, contact PCP office at [phone]. Future Appointments: Date: SunMar 23, 2025 Arrive By: 12:45 PM Visit Type: MS Consult Department: Neurology [phone] Provider: Maria Fernanda Campoverde MD Department Address: [address] [place] [address] Arrival Location: * Telephone Encounter - Leah Badillo RN - 03/10/2025 10:58 AM CDT Hospital Follow-Up Phone Call Admission Date: 03/04/25 Discharge Date: 03/08/25 Discharging Facility: [facility] Discharge Diagnosis: nephrolithiasis with ureteroscopy with lithotripsy Follow-Up Call: Date of Call: 03/10/25 Time of Call: [phone] Number of Call Attempts: 2 Updates for Provider: ACTIVE ISSUES REQUIRING FOLLOW UP -follow up CT in 2 weeks -warfarin: 2 mg daily until follow up (patient is being discharged on levofloxacin 500 mg daily x 5days and appears sensitized to warfarin) Post Hospital follow up: 03/09/2025 - please work with patient's outpatient provider to order PT/INR and f/u on 03/09/2025. Medications/Orders: Were there any medication changes?: (!) Yes (comment) Any referrals or testing to be ordered after D/C?: (!) Yes What was ordered?: follow up CT in 2 weeks The following portions of the patient's chart were reviewed and updated as appropriate: Other: If patient has any future questions, contact PCP office at [phone]. Future Appointments: Date: SunMar 23, 2025 Arrive By: 12:45 PM Visit Type: MS Consult Department: Neurology [phone] Provider: Maria Fernanda Campoverde MD Department Address: [address] [place] [address] Arrival Location: documented in this encounter Plan of Treatment Upcoming Encounters Date Type Department Care Team (Late Contact Info) Description 05/11/2025 4:00 PM CDT [facility] [address] [place] [address] Kayleen Garcia MD [address] [place] [address] 05/12/2025 1:00 PM CDT Office Visit [facility] [address] [place] [address] [phone] Darwin Moreau MD [address] [place] [phone] 05/21/2025 3:20 PM CDT Telemedicine Neurology [address] [place] [address] [phone] Maria Fernanda Campoverde MD [address] [place] [phone] 08/19/2025 2:30 PM PRECISION FARMING SPECIALIST Consult [facility] [address] [place] [address] [phone] Hazel Alvarez MBBS [address] [place] [address] [phone] 08/24/2025 8:20 AM PRECISION FARMING SPECIALIST Tele[facility] Neurology [address] [place] [address] Maria Fernanda Campoverde MD [address] [place] [phone] documented as of this encounter Goals Goal Patient Goal Type Associated Problems Recent Progress Patient-Stated? Author Routine Health Management General No Leah Badillo, RN Note: Routine Health Management Care Team Patient Care Team: Wade Donovan MD as PCP - General (Family Medicine) Leah Badillo, RN as Recruitment Assistant (Family Medicine) Healthcare Directives Future Scheduled Appointments Future Appointments Date Time Provider Department Center 04/22/2025 10:20 AM Maria Fernanda Campoverde MD [facility] 05/11/2025 4:00 PM Kayleen Garcia MD [facility] 05/12/2025 1:00 PM Darwin Moreau MD [facility] 08/19/2025 2:30 PM Hazel Alvarez MBBS [facility] Maintenance Topic Date Due Pneumococcal Vaccine: [...] 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 (HCC) [facility] Neurology 03/23/25 Notes: Cardiovascular Management General On [...] 08/11/2024 LDLCALC 78 08/11/2024 TRIG 81 08/11/2024 [facility] anticoag Clinic Lab Results Component Value Date INR 2.80 (A) 03/31/2025 INR 3.60 (A) 03/27/2025 INR 2.20 (A) 03/19/2025 Warfarin dosing per [facility] Anticoag Clinic Lifestyle management (diet and exercise) Notes: 04/02/25: going to be switching over to Eliquis from Coumadin. Having issues getting the rx. Nelia calling insurance documented as of this encounter Visit Diagnoses Not on filedocumented in this encounter Additional Health Concerns Infection Onset Date Last Indicated Resolved Time MSSA 08/02/2023 08/02/2023 documented as of this encounter Care Teams Associate Store Manager Relationship Specialty Start Date End Date Wade Donovan MD [address] [place] [phone] PCP - General Family Medicine 02/05/24 documented as of this encounter
--- OUTSIDE RECORDS SUMMARY | 2025-04-27 17:25 | XMS_ITS | Data Portability ---
Author Organization [facility], [facility] Address [address] [place] [address] Care Team Providers Care Production Stage Manager Name Role Phone [facility] Referring Provider Assessment Encounter Date Assessment Date [...] Organization Details Last Modified Time Details Appointments None recorded. Lab prostate specific Ag, serum or plasma 2023 024 [facility], [address], [place], [address], 16:45:09 culture, urine 2023 024 [facility], [address], [place], [address], 4 11:40:13 Referral None recorded. Procedures None recorded. Surgeries None recorded. Imaging XR, kidney + ureter + bladder - kidney stones, please 1 week prior to next visit with Dr. Pate which should be about 1 year from 04/23/242023 024 [facility], [address] [place], [address], 5 10:52:16 US, renal - kidney stones, please do 1 month from 10/24/23, thanks. 2023 024 [email or web address] 6 [facility], [address] [place], [address], 4 08:53:47 CT, abdomen + pelvis, w/o contrast - kidney stones, please contact pt to schedule . thanks 2022 023 [facility], [address] [place], [address], 3 12:42:58 US, renal - right renal cyst please contact pt to schedule . thanks 2022 023 [facility], [address] [place], [address], 3 12:15:37 Medication Orders None recorded. Patient TargetsNo targets recorded. Patient Instructions Encounter Date Encounter Id Patient Instructions Last Modified By Organization Details Last Modified Time 08/15/2023 [id number] ureteroscopy: wh at to expect at home [...] is permanent. Not available 08/15/2023 11:23:22 10/24/2023 [id number] Right kidney stone/bladder stones: Right ureteral stent was removed today. Renal U/S in 1 month. Stone prevention 6 weeks. Should drink enough fluids to keep the urine colorless. Stones = 80% calcium oxalate, 20% calcium phosphate (apatite). Not available 10/24/2023 15:28:27 12/11/2023 [id number] We discussed gen eral fluid and dietary [...] vegetables daily Not available 12/11/2023 12:45:16 04/23/2024 [id number] Kidney stones: Andrew cantrell's doing well. I'll [...] IOLOGY RESULT S abnormal SOURC E Kassi woo -[facility] t KNOWN ALLER JAREN NKDA TREAT MENT none MEDIA PLATE D AT: Media plate d on 024 @ 3:34 PM COLON Y COUNT 50,00 0-100 ,000 cfu/m l RESUL T Enter ococc us faeca lis (Isol ate 1) Sensi tivit y Farrah sis [place] te 1 ----- ----- ----- ----- ----- [...] joseluis usage of the drugs . Infor matio n on doxyc yclin e and minoc yclin e can be found in the Physi karoline' s Desk Refer ence or from the [facility] act[facility]. S= Susce ptibl e;I= Inter media te;R= Resis tant; ESBL= Resis tance due to confi rmed ESBL This lab resul t is being provi ded to you and your provi ruben [facility] the [facility] with the Centu ry Cures Act. Your provi ruben may not have had time to revie w and make recom menda tions based on the resul t. Pleas e allow up to one week for provi ruben revie w. Not Available [facility] [address] [facility] [address], [place], [address], 10/07/2023 11:40:12 04/23/20 24 04/23/2024 PSA, TOTAL , SCREE N PSA, total 1.95 NG/mL 0.00-4 .00 This lab resul t is being provi ded to you and your provi ruben at the [facility] time [facility] with the Centu ry Cures Act. Your provi ruben may not have had time to revie w and make recom menda tions based on the resul t. Pleas e allow up to one week for provi ruben revie w. Not Available [facility] [address] [facility] [address], [place], [address], 04/23/2024 16:45:09 08/21/20 23 08/21/2023 US, renal No observ ation record ed. [facility] [address], [place], [address], 08/22/2023 09:39:35 08/22/20 23 08/21/2023 CT, abdom en + pelvi s, w/o contr ast No observ ation record ed. [facility] [address], [place], [address], 08/27/2023 12:46:25 10/16/19 24 10/16/2023 XR, pyelo gram No observ ation record ed. [facility] [address] , [place], [address], 10/16/2023 15:04:11 11/27/19 24 11/26/2023 US, renal No observ ation record ed. [facility] [address], [place], [address], 11/28/2023 10:07:11 Result Notes None recorded. Problems Name Problem SNOMED Code Status Onset Date Resolution Date Notes Provider Name and Address Organization Details Recorded Time Cyst of kidney 538377347 Active 2022 Osito Pate MD [address] [place] [address],[address], [place], [address], [facility] 3 11:17:54 Calculus of kidney and ureter 800640849 Active 2022 Osito Pate MD [address] [place] [address],[address], [place], [address], [facility] 3 11:17:55 Urinary bladder stone 30621099 Active 2022 Osito Pate MD [address] [place] [address],[address], [place], [address], [facility] 3 11:19:12 Neurogenic urinary bladder 225486078 Active 2022 Osito Pate MD [address] [place] [address],[address], [place], [address], [facility] 3 11:19:28 Retention of urine 781894594 Active 2022 Osito Pate MD [address] [place] [address],[address], [place], [address], [facility] 3 11:19:33 Kidney stone 54201814 Active 2023 Osito Pate MD [address] [place] [address],[address], [place], [address], [facility] 4 11:00:19 Hyperlipidemia 22604291 Active 2024 Osiel saldivar [facility] 5 16:23:39 Pulmonary embolism 32385942 Active 2024 [facility] 5 16:23:52 Depressive disorder 73947789 Active 2024 [facility] null, [facility] 5 16:24:00 Multiple sclerosis 44355608 Active 2024 [facility] 5 16:24:11 Problem Notes None recorded. Procedures Surgical History Date Name Laterality Status Provider Name and Address Organization Details Recorded Time 4 Blood Draw/TEACHER TUTOR/PSA RESULTS completed Marley Turner [facility] 04/23/2024 14:59:11 4 Cystoscopy with foreign body/stent removal completed Osito Pate MD [address] [place] [address] [address], [place], [address] [place] [address] 10/23/2023 10:59:43 4 Urine Culture completed Jonna Nava [facility] 10/05/2023 16:23:47 7 Colonoscopy completed Osiel [facility] 11/14/2024 16:24:44 Imaging Results None recorded. Procedure Notes None recorded. Medical Equipment None Reported. Allergies Allergen ID Allergen Name Allergen Category Reaction Reaction Severity Criticality Documentation Date Start Date Code Code System Note Provider Name and Address Organization Details Recorded Time 229989 Product containin g penicilli n (product) medicatio n Not available Not available unabletoasse 10/08/2023 19571 8001 SNOMED sympt oms or sever ity unkno wn. Updat ed per call with [facility]. This aller gy was on file with them since 2014. Rach Lock null, [facility] 4 10:37:47 036361 honey bee venom environme nt angioedem a Not available high 11/14/20242017 30618 7 RxNorm Osielmario [facility] 5 16:22:56 Medications Name Sig Start Date Stop Date [...] Updated DateTime 10/24/2023 182.88 cm 24.4 kg/m2 85059.63 g Gema Roach [facility] 10/24/2023 15:00:20 Date Recorded Body height Provider Name an d Address Organization Details Last Updated DateTime 12/11/2023 182.88 cm Spring Plank [facility] 12/11/2023 10:25:02 Date Recorded Body height Provider Name an d Address Organization Details Last Updated DateTime 04/23/2024 182.88 cm Laura Santos [facility] 04/23/2024 14:43:14 Date Recorded Body height Body mass index (BMI) Body weight Provider Name and Address Organization Details Last Updated DateTime 08/15/2023 182.88 cm 25.8 kg/m2 23072.55 g [facility] 08/15/2023 11:01:26 Social History Question Answer Notes LastModified by Organizat ion Details LastModified Time Tobacco Smoking Status Former Smoker Not Available Health Note 12/11/2023 12:39:03 What Is Your Level Of Caffeine Consumption? None [email or web address] Information not available 12/11/2023 How Much Tobacco Do You Chew? None [email or web address] Information not available 12/11/2023 When Did You Quit Smoking? 16+ Years Since Last Cigarette [email or web address] Information not available 12/11/2023 Race White [email or web address] Information n ot available 03/11/2020 Marital Status [email or web address] Informati on not available 03/11/2020 What Was The Date Of Your Most Recent Tobacco Screening? 12/11/2023 [email or web address] Information not available 12/11/2023 What Is Your Relationship Status? [email or web address] Information not available 12/11/2023 Are You Sexually Active? No [email or web address] Information not available 12/11/2023 Has Tobacco Cessation Counseling Been Provided? No [email or web address] Information not available 08/15/2023 How Many Years Have You Smoked Tobacco? 20 [email or web address] Information not available 12/11/2023 How Many Days In The Past Year Have You Consumed 5 Or More Drinks? 0 [email or web address] Information no t available 12/11/2023 Sex: Unknown Functional Status Question Answer Note LastModified by Organizat ion Details LastModified Time Do you use any illicit or recreational drugs? No [email or web address] Information not available 12/11/2023 Do you or have you ever used any other forms of tobacco or nicotine? No Information not available 08/15/2023 What is your level of alcohol consumption? NONE [email or web address] Information not available 12/11/2023 Do you or have you ever used smokeless tobacco? Never used smokeless tobacco [email or web address] Information not available 12/11/2023 Do you or have you ever used e-cigarettes or vape? Never used electronic cigarettes [email or web address] Information not available 12/11/2023 Mental Status None recorded. Family History Nothing Reported Notes:Heart disease:Father Medical History Condition Response Other N High Blood Pressure Y Kidney Stones Y Depression N Sexually Transmitted Infection N Cancer N Bleeding Disorder N Lung Disease N GERD/Acid Reflux N High Cholesterol N Diabetes N Heart Disease N Past Encounters Encounter ID Performer Location Encounter Start Date Encounter Closed Date Diagnosis/Indication Diagnosis SNOMED-CT Code Diagnosis ICD10 Code Diagnosis Note [id number] Osito Pate MD [facility] [address] [place] [phone] 08/15/2023 10:49:45 08/15/2023 11:27:52 Calculus of kidney and ureter 852610383 N20.2 Cyst of kidney 491159117 N28.1 Urinary bladder stone 70 770829 N21.0 Neurogenic urinary bladder 459817192 N31.9 Retention of urine 81283 4002 R33.9 [id number] MD Mars [facility] [address] 10/05/2023 15:55:15 10/05/2023 16:25:42 Slowing of urinary stream 04446343 R39.12 [id number] MD Mars CameronWoo [address] [address] 10/24/2023 14:54:34 10/24/2023 15:30:45 Kidney stone 47828171 N20.0 Urinary bladder stone 70 408216 N21.0 Foreign liv dy in ureter 555364943 T19.8XXD [id number] [facility] [address] 12/11/2023 10:22:56 12/11/2023 13:29:02 History of calculus of kidney 684995170 Z87.442 [id number] [facility] [address] 04/23/2024 14:36:57 04/23/2024 15:06:28 History of urinary stone 007831960 Z87.442 Neurogenic urinary bladder 226058953 N31.9 Retention of urine 72612 4002 R33.9 Screening for malignant neoplasm of prostate 199619201 Z12.5 Health Concerns Section Related Observation LastModified by Organization Detai ls LastModified Time None Recorded Concern Status LastModified by Organization Details LastModified Time None Recorded Advance Directives Directive None Recorded Payers Insurance Date Sequence Insurance Name Policy Number Policy Fiore Covered Member ID Fiore Member ID Guarantor Name 10/05/2023 1 UNSPECIFIED REMIT PAYOR Dwain Condon Gappa 11/18/2024 2 [place] [id number] Dhruv Condon Gapnh [id number] Dwain Condon Gapnh 11/18/2024 1 [place] [employer] Dwain Hinds [id number] Dwain Hinds
--- OUTSIDE RECORDS SUMMARY | 2025-04-27 17:25 | XMS_ITS | Encounter Summary ---
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 [address] [place] [phone] 05/01/2025 1:15 PM CDT Clinical Support Division of Allergic Diseases in [place], [place] [address] [place] [phone] Simi Hart MPAS, P.A.-C. [address] [place] [phone] 05/01/2025 2:00 PM CDT Comprehensive Visit Division of Allergic Diseases in [place], [place] [address] [place] [phone] Darwin Martinez M.D., Ph.D. [address] [place] [phone] 05/15/2025 2:23 PM CDT Hospital Encounter [facility] Bed Planning Bill Pacheco M.D. [address] [place] [phone] 05/15/2025 2:23 PM CDT - 05/15/2025 4:26 PM CDT Surgery [facility] [address] [place] [address] Bill Pacheco M.D. [address] [place] [phone] URETEROSCOPY WITH LASER LITHOTRIPSY,WITH CALYXO, PROCEED INDICATED Scheduled Procedures Name Priority Associated Diagnoses Date/Ti me URETEROSCOPY WITH LASER LITHOTRIPSY Nephrolithiasis 05/15/2025 2:23 PM CDT EXCHANGE URETERAL STENT Nephrolithiasis 05/15/2025 2:23 PM CDT documented as of this encounter Visit Diagnoses Diagnosis Multiple Sclerosis (HCC) Nephrolithiasis documented in this encounter Care Teams Dry Color Mixer Relationship Specialty Start Date End Date Elsewhere, Pcp PCP - General Family Medicine 09/06/17 documented as of this encounter
--- OUTSIDE RECORDS SUMMARY | 2025-04-27 17:25 | XMS_ITS | Encounter Summary ---
Author Organization [facility] er Address [address] [place] [address] Care Team Providers Care [employer] Band Director Name Role Phone Wade Donovan MD Primary Care Provider [phone] Reason for Visit * Reason Onset Date Comments DME for wheelchair repair 03/05/2025 Encounter Details Date Type Department Care Team (Late st Contact Info) Description 03/05/2025 Telephone [place] [address] [place] [phone] Wade Donovan MD [address] [facility] [address] [place] [address] DME for wheelchair repair Social History Tobacco Use Types Packs/Day Years [...] your doctor or pharmacy? Always 11/25/2024 [facility] Utilities Answer Date Recorded In the [...] Date Recorded PHQ-9 Total Score 0 02/24/2025 [facility] of [...] * Telephone Encounter - Lalitha Pathak - 03/05/2025 1:46 PM CDT DME order faxed to [facility]; fax [phone], office [phone]. * Telephone Encounter - Neli Roman LPN - 03/05/2025 1:03 PM CDT Please see message below and fax. * Telephone Encounter - Aide Ocampo - 03/05/2025 10:57 AM CDT Patients called stating that the Patient is in the hospital and she would like a DME order sent to [facility] to fix the electric wheelchairs control unit, repair/or replace. She is hoping that this can be faxed today but understands that it may not. Fax number to [facility] [phone]. Sending to Floor Nurses due to being a DME. Please advise. documented in this encounter Plan of Treatment Upcoming Encounters Date Type Department Care Team (Late st Contact Info) Description 05/11/2025 4:00 PM CDT Office Visit [facility] [address] [place], [place] [phone] Kayleen Garcia MD [address] [place], [place] [address] 05/12/2025 1:00 PM CDT Office Visit [facility] [address] [place] [phone] Darwin Moreau MD [address] [place] [phone] 05/21/2025 3:20 PM CDT [facility] [address] [place] [address] [phone] Maria Fernanda Campoverde MD [address] [place] [phone] 08/19/2025 2:30 PM COMMUNITY OUTREACH MANAGER Consult [facility] [address] [place] [phone] Hazel Alvarez MBBS [address] [place] [phone] 08/24/2025 8:20 AM COMMUNITY OUTREACH MANAGER [facility] [address] [place] [phone] Maria Fernanda Campoverde MD [address] [place] [phone] documented as of this encounter Goals Goal Patient Goal Type Associated Problems Recent Progress Patient-Stated? Author Routine Health Management General No Leah Badillo, RN Note: Routine Health Management Care Team Patient Care Team: Wade Donovan MD as PCP - General (Family Medicine) Leah Badillo, RN as Polish Compounder (Family Medicine) Healthcare Directives Future Scheduled Appointments Future Appointments Date Time Provider Department Center 04/22/2025 10:20 AM Maria Fernanda Campoverde MD [facility] 05/11/2025 4:00 PM Kayleen Garcia MD [facility] 05/12/2025 1:00 PM Darwin Moreau MD [facility] 08/19/2025 2:30 PM [facility] Topic Date Due Pneumococcal Vaccine: [...] 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 (HCC) [facility] 03/23/25 Notes: Cardiovascular Management General On [...] 08/11/2024 LDLCALC 78 08/11/2024 TRIG 81 08/11/2024 [facility] Lab Results Component Value Date INR 2.80 (A) 03/31/2025 INR 3.60 (A) 03/27/2025 INR 2.20 (A) 03/19/2025 Warfarin dosing per [facility] Lifestyle management (diet and exercise) Notes: 04/02/25: going to be switching over to Eliquis from Coumadin. Having issues getting the rx. 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
--- OUTSIDE RECORDS SUMMARY | 2025-04-27 17:25 | XMS_ITS | Encounter Summary ---
Author Organization [facility] er Address [address] [place] [address] Care Team Providers Care Lane Attendant Name Role Phone Wade Donovan MD Primary Care Provider [phone] Reason for Visit * Reason Onset Date Comments Med Refill 08/05/2018 Encounter Details Date Type Department Care Team (Late Contact Info) Description 08/05/2018 Refill [place] [address] [place] [address] Adarsh Carpenter MD Social History Tobacco Use [...] Visit [facility] [address] [place], [place] [phone] Kayleen Garcia MD [address] [place] [phone] 05/12/2025 1:00 PM CDT Office Visit [facility] [address] [place] [phone] Darwin Moreau MD [address] [place] [phone] 05/21/2025 3:20 PM CDT [facility] [address] [place] [phone] Maria Fernanda Campoverde MD [address] [place] [phone] 08/19/2025 2:30 PM HELP DESK INTERN Consult [facility] Endocr[facility] [address] [place] [phone] Hazel Alvarez MBBS [address] [place] [phone] 08/24/2025 8:20 AM HELP DESK INTERN [facility] [address] [place] [phone] Maria Fernanda Campoverde MD [address] [place] [phone] documented as of this encounter Visit Diagnoses Not on filedocumented in this encounter Additional Health Concerns Infection Onset Date Last Indicated Resolved Time MSSA 10/04/2018 10/04/2018 06/28/2022 8:27 AM CDT MSSA 06/19/2023 07/04/2023 07/17/2023 2:29 PM CDT MSSA 08/02/2023 08/02/2023 documented as of this encounter Care Teams Lane Attendant Relationship Specialty Start Date End Date Wade Donovan MD [address] [place] [phone] PCP - General Family Medicine 02/05/24 documented as of this encounter
--- OUTSIDE RECORDS SUMMARY | 2025-04-27 17:26 | XMS_ITS | Encounter Summary ---
Author Organization [facility] er Address [address] [place] [address] Care Team Providers Care Patient Registration Supervisor Name Role Phone Wade Donovan MD Primary Care Provider [phone] Reason for Visit * Reason Onset Date Comments medication information 03/30/2025 Encounter Details Date Type Department Care Team (Late st Contact Info) Description 03/30/2025 Telephone [facility] [address] [place] [address] Maria Fernanda Campoverde MD [address] [place] [address] medication information Social History Tobacco Use Types Packs/Day Years [...] from your doctor or pharmacy? Always 11/25/2024 [facility] Utilities Answer Date Recorded In the [...] Date Recorded PHQ-9 Total Score 0 02/24/2025 [facility] of Occupat ional [...] a nursing home (including now)? No 11/07/2023 Housing Stability [...] time in the past 12 m [facility], were you homeless or living in a nursing home (including now)? No 11/25/2024 Interpersonal Safety [...] encounter Miscellaneous Notes * Telephone Encounter - Ericka Anderson RN - 04/07/2025 11:30 AM CDT Received form, completed and faxed back to Michael * Telephone Encounter - Carmen Hughes RN - 04/07/2025 8:06 AM CDT Received fax regarding patient's Eliquis. I faxed this to your office. * Telephone Encounter - Leah Badillo RN - 04/02/2025 11:40 AM CDT Noted, thank you * Telephone Encounter - Dolores Tang MA - 04/02/2025 8:41 AM CDT Pt and spouse informed of message from Dr Campoverde and verbalized understanding. * Telephone Encounter - Leah Badillo RN - 04/01/2025 4:21 PM CDT Spoke to patient's . It sounds like the pharmacy has not gotten the rx for Eliquis yet. She spoke to Dhruv's insurance and it will be covered. Please send to [facility] in [place]. * Telephone Encounter - Neli Quiroga - 03/30/2025 4:57 PM CDT Please send Rx for Elequist to [facility] in [place]. Thank you. * Telephone Encounter - Merly Her MA - 03/30/2025 4:29 PM CDT The pts was notified of the advise message from Dr Campoverde. * Telephone Encounter - Merly Her MA - 03/30/2025 3:38 PM CDT Please review this was mentioned to possibly try but no dosage info in note. * Telephone Encounter - Neli Quiroga - 03/30/2025 12:33 PM CDT Mrs. Hinds called today needing to know the dosage of elequist for insurance purposes so she can find out if it will be covered. Needs to know the strength and how many per day and for how long. documented in this encounter Plan of Treatment Upcoming Encounters Date Type Department Care Team (Late st Contact Info) Description 05/11/2025 4:00 PM CDT Office Visit [facility] [address] [place] [address] [phone] Kayleen Garcia MD [address] [place] [address] 05/12/2025 1:00 PM CDT Office Visit [facility] [address] [place] [address] [phone] Darwin Moreau MD 210 [facility] [place] [phone] 05/21/2025 3:20 PM CDT Telemedicine Neurology [address] [place] [address] [phone] Maria Fernanda Campoverde MD [address] [place] [phone] 08/19/2025 2:30 PM WELDING EQUIPMENT REPAIRER Consult [facility] [address] [place] [address] [phone] Hazel Alvarez MBBS [address] [place] [address] [phone] 08/24/2025 8:20 AM WELDING EQUIPMENT REPAIRER Telemedicine Neurology [address] [place] [address] [phone] Maria Fernanda Campoverde MD [address] [place] [phone] documented as of this encounter Goals Goal Patient Goal Type Associated Problems Recent Progress Patient-Stated? Author Routine Health Management General No Leah Badillo, RN Note: Routine Health Management Care Team Patient Care Team: Wade Donovan MD as PCP - General (Family Medicine) Leah Badillo, RN as Mechanical Maintenance Instructor (Family Medicine) Healthcare Directives Future Scheduled Appointments Future Appointments Date Time Provider Department Center 04/22/2025 10:20 AM Maria Fernanda Campoverde MD [facility] 05/11/2025 4:00 PM Kayleen Garcia MD [facility] 05/12/2025 1:00 PM Darwin Moreau MD [facility] 08/19/2025 2:30 PM Hazel Alvarez MBBS [facility] Health Maintenance Health Maintenance Topic Date [...] 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 (HCC) [facility] [place] 03/23/25 Notes: Cardiovascular Management [...] 08/11/2024 LDLCALC 78 08/11/2024 TRIG 81 08/11/2024 [facility] Clinic Lab Results Component Value Date INR 2.80 (A) 03/31/2025 INR 3.60 (A) 03/27/2025 INR 2.20 (A) 03/19/2025 Warfarin dosing per [facility] Lifestyle management (diet and exercise) Notes: 04/02/25: going to be switching over to Eliquis from Coumadin. Having issues getting the rx. Nelia calling insurance documented as of this encounter Visit Diagnoses Not on filedocumented in this encounter Additional Health Concerns Infection Onset Date Last Indicated Resolved Time MSSA 08/02/2023 08/02/2023 documented as of this encounter Care Teams Patient Registration Supervisor Relationship Specialty Start Date End Date Wade Donovan MD [address] [place] [address] PCP - General Family Medicine 02/05/24 documented as of this encounter
--- OUTSIDE RECORDS SUMMARY | 2025-04-27 17:26 | XMS_ITS | Encounter Summary ---
Author Organization [facility] er Address [address] [place] [address] Care Team Providers Care Building Code Administrator Name Role Phone Wade Donovan MD Primary Care Provider [phone] Reason for Visit * Reason Comments Med Refill Encounter Details Date Type Department Care Team (Late st Contact Info) Description 04/06/2019 Refill [place] [address] [place] [address] Adarsh Carpenter MD Other pulmonary embolism without [...] Office Visit [facility] [address] [place] [address] [phone] Kayleen Garcia MD [address] [place] [address] [phone] 05/12/2025 1:00 PM CDT Office Visit [facility] [address] [place] [address] [phone] Darwin Moreau MD 210 [place] [phone] 05/21/2025 3:20 PM CDT Telemedicine [facility] [address] [place] [phone] Maria Fernanda Campoverde MD [address] [place] [phone] 08/19/2025 2:30 PM UNDERWRITING TECHNICIAN Consult [facility] [address] [place] [address] [phone] Hazel Alvarez MBBS [address] [place] [address] [phone] 08/24/2025 8:20 AM UNDERWRITING TECHNICIAN Telemedicine [facility] [address] [place] [address] Maria Fernanda Campoverde MD [address] [place] [phone] documented as of this encounter Visit Diagnoses Diagnosis Other pulmonary embolism without acute cor pulmonale, unspecified chronicity (HCC)- Primary documented in this encounter Additional Health Concerns Infection Onset Date Last Indicated Resolved Time MSSA 10/04/2018 10/04/2018 06/28/2022 8:27 AM CDT MSSA 06/19/2023 07/04/2023 07/17/2023 2:29 PM CDT MSSA 08/02/2023 08/02/2023 documented as of this encounter Care Teams Building Code Administrator Relationship Specialty Start Date End Date Wade Donovan MD [address] [place] [address] PCP - General Family Medicine 02/05/24 documented as of this encounter
--- OUTSIDE RECORDS SUMMARY | 2025-04-27 17:26 | XMS_ITS | Encounter Summary ---
Author Organization [facility] er Address [address] [place] [address] Care Team Providers Care Ep Tech Name Role Phone Wade Donovan MD Primary Care Provider [phone] Encounter Details Date Type Department Care Team (Late st Contact Info) Description 04/07/2025 Telephone [facility] [address] [place] [address] Wade Donovan MD [address] [place] [address] Social History Tobacco Use Types Packs/Day Years [...] from your doctor or pharmacy? Always 11/25/2024 [facility] Utilities Answer Date Recorded In the past 12 months has e [employer], gas, oil, or water company threatened to [...] Date Recorded PHQ-9 Total Score 0 02/24/2025 [facility] of Occupat ional Health - Occupational Stress [...] in a chcf (including now)? No 11/07/2023 Housing Stability Vital Sign Answer Jose e Recorded In the last 12 months, was t here a time when you were not able to pay the mortgage or rent on time? No 11/25/2024 In the past 12 months, how m any times have you moved where you were living? 0 11/25/2024 At any time in the past 12 m [facility], were you homeless or living in a chcf (including now)? No 11/25/2024 Interpersonal Safety Questionnaire [...] encounter Miscellaneous Notes * Telephone Encounter - Bronwyn Omer - 04/07/2025 10:09 AM CDT Received paperwork from Terry regarding Eliquis. is in [email or web address] so I faxed paperwork there. Bronwyn King documented in this encounter Plan of Treatment Upcoming Encounters Date Type Department Care Team (Late st Contact Info) Description 05/11/2025 4:00 PM CDT Office Visit [facility] [address] [place] [address] [phone] Kayleen Garcia MD [address] [place] [address] [phone] 05/12/2025 1:00 PM CDT Office Visit [facility] [address] [place] [address] [phone] Darwin Moreau MD 210 [place] [phone] 05/21/2025 3:20 PM CDT Telemedicine [facility] [address] [place] [address] Maria Fernanda Campoverde MD 210 [place] [phone] 08/19/2025 2:30 PM DENTURE TECHNICIAN Consult [facility] [address] [place] [address] [phone] Hazel Alvarez MBBS [address] [place] [address] [phone] 08/24/2025 8:20 AM DENTURE TECHNICIAN Telemedicine [facility] [address] [place] [address] Maria Fernanda Campoverde MD 210 [facility] [place] [address] documented as of this encounter Goals Goal Patient Goal Type Associated Problems Recent Progress Patient-Stated? Author Routine Health Management General No Leah Badillo, RN Note: Routine Health Management Care Team Patient Care Team: Wade Donovan MD as PCP - General (Family Medicine) Leah Badillo, RN as Pole Shaver Helper (Family Medicine) Healthcare Directives Future Scheduled Appointments Future Appointments Date Time Provider Department Center 04/22/2025 10:20 AM Maria Fernanda [facility]de MD [facility] 05/11/2025 4:00 PM Kayleen Garcia MD [facility] 05/12/2025 1:00 PM Darwin Moreau MD [facility] 08/19/2025 2:30 PM Hazel Alvarez MBBS [facility] Health Maintenance Health Maintenance Topic Date Due [...] 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 (HCC) [facility] Neurology 03/23/25 Notes: Cardiovascular Management General On [...] 08/11/2024 LDLCALC 78 08/11/2024 TRIG 81 08/11/2024 [facility] anticoag Clinic Lab Results Component Value Date INR 2.80 (A) 03/31/2025 INR 3.60 (A) 03/27/2025 INR 2.20 (A) 03/19/2025 Warfarin dosing per [facility] Lifestyle management (diet and exercise) Notes: 04/02/25: going to be switching over to Eliquis from Coumadin. Having issues getting the rx. Nelia calling insurance documented as of this encounter Visit Diagnoses Not on filedocumented in this encounter Additional Health Concerns Infection Onset Date Last Indicated Resolved Time MSSA 08/02/2023 08/02/2023 documented as of this encounter Care Teams Ep Tech Relationship Specialty Start Date End Date Wade Donovan MD [address] [place] [address] PCP - General Family Medicine 02/05/24 documented as of this encounter
--- OUTSIDE RECORDS SUMMARY | 2025-04-27 17:26 | XMS_ITS | Encounter Summary ---
Author Organization [facility] er Address [address] [place] [address] Care Team Providers Care Director Of Occupational Health Name Role Phone Wade Donovan MD Primary Care Provider [phone] Reason for Referral * Consultation (Routine) - Authorized Specialty Diagnoses / Procedures Referred By Contac t Referred To Contact Family Medicine Diagnoses Multiple sclerosis (HCC) Wade Donovan MD [address] [address] Phone: tel: fax: [facility] Active Aging Services [address] [place] [address] Phone: tel: fax: Referral ID Status Reason Start Date Expiration Date V isits Requested Visits Authorized [id number] Authorized 03/24/2025 03/24/2026 1 1 Encounter Details Date Type Department Care Team (Late st Contact Info) Description 03/24/2025 Telephone [place] [address] [facility] [address] [place] [phone] Wade Donovan MD [address] [address] Social History Tobacco Use Types Packs/Day Years [...] from your doctor or pharmacy? Always 11/25/[address] [facility] Utilities Answer Date Recorded In the past 12 months has th e [employer], [employer], oil, or water [employer] threatened to shut off services in your [...] week 11/25/2024 How often do you attend [facility] or orthodox services? 1 to 4 times per year 11/25/2024 Do you belong to any clubs o r organizations such as cheondoism groups, unions, fraternal [...] Date Recorded PHQ-9 Total Score 0 02/24/2025 [facility] - Occupational Stress Questionnaire Answer Date [...] in a residential (including now)? No 11/07/2023 Housing Stability Vital [...] were you homeless or living in a residential (including now)? No 11/25/2024 Interpersonal Safety Questionnaire [...] encounter Miscellaneous Notes * Telephone Encounter - Leah Badillo RN - 03/24/2025 1:30 PM CDT Spoke to Nelia, she would like to move forward with AAS/palliative care referral. Pended Referral to social insurance specialist sent today to help with finding Home health for PT/OT. Referral was also placed on 03/16 for [facility] PT. They have not heard anything from them yet. CC tried to callbut no answer. Also encouraged Nelia to reach out. documented in this encounter Plan of Treatment Upcoming Encounters Date Type Department Care Team (Late st Contact Info) Description 05/11/2025 4:00 PM CDT Office Visit [facility] [address] [place] [address] Kayleen Garcia MD [address] [place] [address] 05/12/2025 1:00 PM CDT Office Visit [facility] [address] [place] [phone] Darwin Moreau MD 210 [place] [phone] 05/21/2025 3:20 PM CDT Telemedicine Neurology [address] [place] [address] Maria Fernanda Campoverde MD [address] [place] [phone] 08/19/2025 2:30 PM BLADE GROOVER Consult [facility] End[facility] [address] [place] [address] [phone] Hazel Alvarez MBBS [address] [place] [address] [phone] 08/24/2025 8:20 AM BLADE GROOVER Telemedicine Neurology [address] [place] [address] Maria Fernanda Campoverde MD [address] [place] [address] [phone] Scheduled Referrals Name Type Priority Associated Diagnoses Order Schedule Ambulatory Referral to Active [facility] Services- Palliative Care Outpatient Referral Routine Multiple sclerosis (HCC) Ordered: 03/24/2025 documented as of this encounter Goals Goal Patient Goal Type Associated Problems Recent Progress Patient-Stated? Author Routine Health Management General No Leah Badillo, RN Note: Routine Health Management Care Team Patient Care Team: Wade Donovan MD as PCP - General (Family Medicine) Leah Badillo, RN as Antisqueak Worker (Family Medicine) Healthcare Directives Future Scheduled Appointments Future Appointments Date Time Provider Department Center 04/22/2025 10:20 AM Maria Fernanda Campoverde MD [facility] 05/11/2025 4:00 PM Kayleen Garcia MD [facility] 05/12/2025 1:00 PM Darwin Moreau MD [facility] 08/19/2025 2:30 PM Hazel Alvarez MBBS [facility] Health Maintenance Health Maintenance Topic Date [...] Diagnosis Multiple sclerosis (HCC)- Primary Multiple sclerosis documented in this encounter Additional Health Concerns Infection Onset Date Last Indicated Resolved Time MSSA 08/02/2023 08/02/2023 documented as of this encounter Care Teams Director Of Occupational Health Relationship Specialty Start Date End Date Wade Donovan MD [address] [place] [address] PCP - General Family Medicine 02/05/24 documented as of this encounter
--- OUTSIDE RECORDS SUMMARY | 2025-04-27 17:26 | XMS_ITS | Encounter Summary ---
Author Organization [facility] er Address [address] [place] [address] Care Team Providers Care Visual Educator Name Role Phone Wade Donovan MD Primary Care Provider [phone] Encounter Details Date Type Department Care Team (Late st Contact Info) Description 03/24/2025 Telephone [place] [address] [place] [address] Wade Donovan MD 1705 [facility] 20 [place] [address] Social History Tobacco Use Types Packs/Day Years [...] from your doctor or pharmacy? Always 11/25/[address] [facility] Utilities Answer Date Recorded In the [...] How often do you attend chur or gnosticist services? 1 to 4 times [...] Date Recorded PHQ-9 Total Score 0 02/24/2025 [facility] of Occupat ional Health - Occupational Stress [...] any time in the past 12 m [facility], were you homeless or [...] encounter Miscellaneous Notes * Telephone Encounter - Monique Epstein - 04/02/2025 8:03 AM CDT Disc inter-officed to [facility]. * Telephone Encounter - Leah Badillo RN - 04/01/2025 8:53 AM CDT Please interoffice to [facility] Edwards in Radiology and she can load it in the system. Thank you * Telephone Encounter - Vidhya Bain LPN - 03/31/2025 4:37 PM CDT They could not send via electronic per the tech at [facility]. We could interoffice to Radiology at [facility]? * Telephone Encounter - Monique Epstein - 03/31/2025 3:52 PM CDT Disc received. Patient's notified. She was under the impression that this was going to be sentelectronically to ENT? Please advise what we should do with the disc. * Telephone Encounter - Vidhya Bain LPN - 03/24/2025 10:39 AM CDT Requesting DISC for patient from [facility]. Please let patient know and Care Coordination when it arrives in clinic. documented in this encounter Plan of Treatment Upcoming Encounters Date Type Department Care Team (Late st Contact Info) Description 05/11/2025 4:00 PM CDT Office Visit [facility] [address] [place] [address] [phone] Kayleen Garcia MD [address] [place] [address] 05/12/2025 1:00 PM CDT Office Visit [facility] [address] [place] [address] [phone] Darwin Moreau MD 210 [place] [phone] 05/21/2025 3:20 PM CDT Telemedicine [facility] [address] [place] [address] [phone] Maria Fernanda Campoverde MD [address] [place] [phone] 08/19/2025 2:30 PM AERONAUTICAL ENGINEER Consult [facility] [address] [place] [address] [phone] Hazel Alvarez MBBS [address] [place] [address] [phone] 08/24/2025 8:20 AM AERONAUTICAL ENGINEER Telemedicine [facility] [address] [place] [address] Maria Fernanda Campoverde MD [address] [place] [address] [phone] documented as of this encounter Goals Goal Patient Goal Type Associated Problems Recent Progress Patient-Stated? Author Routine Health Management General No Leah Badillo, RN Note: Routine Health Management Care Team Patient Care Team: Wade Donovan MD as PCP - General (Family Medicine) Leah Badillo, RN as Program Project Analyst (Family Medicine) Healthcare Directives Future Scheduled Appointments Future Appointments Date Time Provider Department Center 04/22/2025 10:20 AM Maria Fernanda Campoverde MD [facility] 05/11/2025 4:00 PM Kayleen Garcia MD [facility] [place] [facility] 05/12/2025 1:00 PM [facility]/19/[facility]25 2:30 PM Haz[facility] Health Maintenance Topic Date [...] 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 (HCC) [facility] Neu[facility] 03/23/25 Notes: Cardiovascular Management General On track( 025 3:20 PM CDT) No Leah Badillo, RN Note: Cardiovascular Management Hyperlipidemia LDL goal <100 Pulmonary embolism (HCC) Managed by (PCP; Cardiology; Anticoag Clinic) Dr. Donovna Blood pressure goal Less than 140/90 Recent blood pressures BP Readings from Last 3 Encounters: 03/23/25 112/79 03/19/25 127/84 02/24/25 (!) 126/97 Labs Lab Results Component Value Date CHOL 125 08/11/2024 HDL 31 (L) 08/11/2024 LDLCALC 78 08/11/2024 TRIG 81 08/11/2024 [facility] antico Clinic Lab Results Component Value Date INR 2.80 (A) 03/31/2025 INR 3.60 (A) 03/27/2025 INR 2.20 (A) 03/19/2025 Warfarin dosing [facility] Lifestyle management (diet and exercise) Notes: 04/02/25: going to be switching over to Eliquis from Coumadin. Having issues getting the rx. Nelia calling insurance documented as of this encounter Visit Diagnoses Not on filedocumented in this encounter Additional Health Concerns Infection Onset Date Last Indicated Resolved Time MSSA 08/02/2023 08/02/2023 documented as of this encounter Care Teams Visual Educator Relationship Specialty Start Date End Date Wade Donovan MD [address] [place] [address] PCP - General Family Medicine 02/05/24 documented as of this encounter
--- OUTSIDE RECORDS SUMMARY | 2025-04-27 17:26 | XMS_ITS | Encounter Summary ---
Author Organization [facility] er Address [address] [place] [address] Care Team Providers Care Aluminum Sheet Cutter Name Role Phone Wade Donovan MD Primary Care Provider [phone] Encounter Details Date Type Department Care Team (Latest Contact Info) Description 03/27/2025 Anticoagulation - Warfarin Visit Anticoagulation [address] [place] [address] [phone] Laurie Morales, RN 210 [place] [phone] 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 current use of anticoagulant (Primary Dx) Social [...] from your doctor or pharmacy? Always 11/25/2024 [facility] Utilities Answer Date Recorded In the [...] How often do you attend chur or taoist services? 1 to 4 times [...] Date Recorded PHQ-9 Total Score 0 02/24/2025 [facility] Occupat ional Health - Occupational Stress [...] in a 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 (including now)? No 11/07/2023 Housing Stability Vital Sign Answer Jose e Recorded In the last 12 months, was t here a time when you were not able to pay the mortgage or rent on time? No 11/25/2024 In the past 12 months, how m any times have you moved where you were living? 0 11/25/2024 At any time in the past 12 [facility], were you homeless or living in a 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 (including now)? No 11/25/2024 Interpersonal Safety Questionnaire [...] as of this encounter Progress Notes * Laurie Morales RN - 03/27/2025 4:11 PM CDT Anticoagulation Clinic INR RESULTS: INR (no units) Date Value 03/27/2025 3.60 (A) DOSE PLAN: one time dose decrease of 2 mg 03/27; then resume 2 mg every Sondra, Sat; 4 mg all other days. NEXT INR: 04/02/2025 Patient's , Nelia called in to report she had checked his INR and it is 3.6. She had checked it, because she was concerned, due to his urine being dark red in color. He was seen in the emergency room yesterday for hematuria. Nelia shared that his stent is ok and that they felt he had passed a kidney stone from his left kidney about 3 days ago. [facility] instructed Nelia, that patient should utilize basic safety precautions and seek medical attentionas warranted for bleeding concerns/injury/fall (especially if he hits his head). Patient was informed it may take a longer time for bleeding to stop should an injury occur. She verbalized understanding of anticoagulation dose plan and date of next INR. AVS mailed to the patient. documented in this encounter Plan of Treatment Upcoming Encounters Date Type Department Care Team (Late st Contact Info) Description 05/11/2025 4:00 PM CDT Office Visit [facility] [address] [place] [address] Kayleen Garcia MD [address] [place] [address] 05/12/2025 1:00 PM CDT Office Visit [facility] [address] [place] [address] Darwin Moreau MD [address] [place] [address] 05/21/2025 3:20 PM CDT Telemedicine Neurology [address] [place] [address] [phone] Maria Fernanda Campoverde MD [address] [place] [phone] 08/19/2025 2:30 PM STRUCTURAL METAL FABRICATOR APPRENTICE Consult [facility] [address] [place] [address] [phone] Hazel Alvarez MBBS [address] [place] [address] 08/24/2025 8:20 AM STRUCTURAL METAL FABRICATOR APPRENTICE Telemedicine Neurology [address] [place] [address] [phone] Maria Fernanda Campoverde MD [address] [place] [phone] documented as of this encounter Goals Goal Patient Goal Type Associated Problems Recent Progress Patient-Stated? Author Routine Health Management General No Leah Badillo, RN Note: Routine Health Management Care Team Patient Care Team: Wade Donovan MD as PCP - General (Family Medicine) Leah Badillo, RN as Therapy Coordinator (Family Medicine) Healthcare Directives Future Scheduled Appointments Future Appointments Date Time Provider Department Center 04/22/2025 10:20 AM Maria Fernanda Campoverde MD [facility] 05/11/2025 4:00 PM Kayleen Garcia MD [facility] 05/12/2025 1:00 PM Darwin Moreau MD [facility] 08/19/2025 2:30 PM Hazel Alvarez MBBS [facility] Health Maintenance Health Maintenance Topic Date Due [...] 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 (HCC) [facility] [place] 03/23/25 Notes: Cardiovascular Management General On [...] 08/11/2024 LDLCALC 78 08/11/2024 TRIG 81 08/11/2024 [facility] [place] Lab Results Component Value Date INR 2.80 (A) 03/31/2025 INR 3.60 (A) 03/27/2025 INR 2.20 (A) 03/19/2025 Warfarin dosing per [facility] [place] Lifestyle management (diet and exercise) Notes: 04/02/25: going to be switching over to Eliquis from Coumadin. Having issues getting the rx. Nelia calling insurance documented as of this encounter Procedures Procedure Name Priority Date/Time Associated Diagnosis Comments PROTIME-INR Routine 03/27/2025 documented in this encounter Results * (ABNORMAL) Protime-INR (03/27/2025) INR 3.60(A) 0.90 - 1.10 HOME HEA LTH POINT OF CARE TESTING Protime HOME HEALT H POINT OF CARE TESTING Blood (Blood, Venous) us Historical Provider LAB BLOOD ORDERABLES Mini l Result HOME HEALTH POINT OF CARE TESTING documented in this encounter Visit Diagnoses Diagnosis 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 current use of anticoagulant- Primary documented in this encounter Additional Health Concerns Infection Onset Date Last Indicated Resolved Time MSSA 08/02/2023 08/02/2023 documented as of this encounter Care Teams Aluminum Sheet Cutter Relationship Specialty Start Date End Date Wade Donovan MD [address] [phone] PCP - General Family Medicine 02/05/24 documented as of this encounter
--- OUTSIDE RECORDS SUMMARY | 2025-04-27 17:26 | XMS_ITS | Encounter Summary ---
Author Organization [facility] er Address [address] [place] [address] Care Team Providers Care Process Line Operator Name Role Phone Wade Donovan MD Primary Care Provider [phone] Encounter Details Date Type Department Care Team (Latest Contact Info) Description 03/19/2025 Anticoagulation - Warfarin Visit Anticoagulation [address] [place] [address] [phone] Anna Betts, RN 210 [place] [phone] residential current use of anticoagulant (Primary Dx); Other [...] from your doctor or pharmacy? Always 11/25/2024 [facility] Utilities Answer Date Recorded In the [...] often do you attend chur ch or druze services? 1 to 4 times [...] Date Recorded PHQ-9 Total Score 0 02/24/2025 [facility] Occupat ional Health - Occupational Stress [...] slept in a alf (including now)? No 11/07/2023 Housing Stability Vital Sign Answer Jose e Recorded In the last 12 months, was t here a time when you were not able to pay the mortgage or rent on time? No 11/25/2024 In the past 12 months, how m any times have you moved where you were living? 0 11/25/2024 At any time in the past 12 m [facility], were you homeless or living in a alf (including now)? No 11/25/2024 Interpersonal Safety Questionnaire [...] Progress Notes * Anna Betts RN - 03/19/2025 4:22 PM CDT Anticoagulation Clinic INR RESULTS: INR (no units) Date Value 03/19/2025 2.20 (A) DOSE PLAN: 2mg every Thur, Sat; 4mg all other days DOSE CHANGE: No change NEXT INR: 04/02/25 INR results reviewed with the patient's spouse. She verbalized understanding of anticoagulation dose plan and date of next INR. Patient is a home liz, dosing confirmed. documented in this encounter Plan of Treatment Upcoming Encounters Date Type Department Care Team (Late st Contact Info) Description 05/11/2025 4:00 PM CDT Office Visit [facility] [address] [place] [address] [phone] Kayleen Garcia MD [address] [place] [address] [phone] 05/12/2025 1:00 PM CDT Office Visit [facility] [address] [place] [phone] Darwin Moreau MD 210 [place] [phone] 05/21/2025 3:20 PM CDT Telemedicine [facility] [address] [place] [address] [phone] Maria Fernanda Campoverde MD 210 [place] [phone] 08/19/2025 2:30 PM SLACK LINE YARDER Consult [facility] End[facility] [address] [place] [address] Hazel Alvarez MBBS [address] [place] [address] 08/24/2025 8:20 AM SLACK LINE YARDER Telemedicine Neurology [address] [place] [address] Maria Fernanda Campoverde MD 210 [place] [phone] documented as of this encounter Goals Goal Patient Goal Type Associated Problems Recent Progress Patient-Stated? Author Routine Health Management General No Leah Badillo, RN Note: Routine Health Management Care Team Patient Care Team: Wade Donovan MD as PCP - General (Family Medicine) Leah Badillo RN as Industrial Tractor Driver (Family Medicine) Healthcare Directives Future Scheduled Appointments Future Appointments Date Time Provider Department Center 04/22/2025 10:20 AM Maria Fernanda Campoverde MD [facility] 05/11/2025 4:00 PM Kayleen Garcia MD [facility] 05/12/2025 1:00 PM Darwin Moreau MD [facility] 08/19/2025 2:30 PM Hazel Alvarez MBBS [facility] Health Maintenance Health Maintenance Topic Date [...] 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 (HCC) [facility] 03/23/25 Notes: Cardiovascular Management General On [...] 08/11/2024 LDLCALC 78 08/11/2024 TRIG 81 08/11/2024 [facility] antico[place] Clinic Lab Results Component Value Date INR 2.80 (A) 03/31/2025 INR 3.60 (A) 03/27/2025 INR 2.20 (A) 03/19/2025 Warfarin dosing per [facility] Lifestyle management (diet and exercise) Notes: 04/02/25: going to be switching over to Eliquis from Coumadin. Having issues getting the rx. Nelia calling insurance documented as of this encounter Procedures Procedure Name Priority Date/Time Associated Diagnosis Comments PROTIME-INR Routine 03/19/2025 documented in this encounter Results * (ABNORMAL) Protime-INR (03/19/2025) INR 2.20(A) 0.90 - 1.10 [facility] POINT OF CARE TESTING Protime [...] as of this encounter Care Teams Process Line Operator Relationship Specialty Start Date End Date Wade Donovan MD [address] [place] [address] PCP - General Family Medicine 02/05/24 documented as of this encounter
--- OUTSIDE RECORDS SUMMARY | 2025-04-27 17:26 | XMS_ITS | Encounter Summary ---
Author Organization [facility] er Address [address] [place] [address] Care Team Providers Care Boiler Shop Supervisor Name Role Phone Wade Donovan MD Primary Care Provider [phone] Encounter Details Date Type Department Care Team (Late st Contact Info) Description 04/02/2025 Orders Only [facility] [address] [place] [address] Maria Fernanda Campoverde MD 210 [place] [phone] Pulmonary embolism, unspecified chronicity, unspecified pulmonary embolism type, unspecified whether acute cor pulmonale present (HCC) (Primary Dx); Cerebrovascular accident (CVA), unspecified mechanism (HCC) Social History Tobacco Use Types Packs/Day [...] from your doctor or pharmacy? Always 11/25/2024 [facility] Utilities Answer Date Recorded In the [...] week 11/25/2024 How often do you attend [facility] or adventist services? 1 to 4 times [...] Date Recorded PHQ-9 Total Score 0 02/24/2025 [facility] Occupational Stress Questionnaire Answer Date [...] time in the past 12 m [facility], were you homeless or living in a [...] Office Visit [facility] [address] [place] [address] [phone] Kayleen Garica MD [address] [place] [address] [phone] 05/12/2025 1:00 PM CDT Office Visit [facility] [address] [place] [address] [phone] Darwin Moreau MD 210 [place] [phone] 05/21/2025 3:20 PM CDT Telemedicine [facility] [address] [place] [address] [phone] Maria Fernanda Campoverde MD 210 [place] [phone] 08/19/2025 2:30 PM MANAGER PROCESS IMPROVEMENT Consult [facility] [address] [place] [address] [phone] Hazel Alvarez MBBS [address] [place] [address] [phone] 08/24/2025 8:20 AM MANAGER PROCESS IMPROVEMENT Telemedicine [facility] [address] [place] [address] [phone] Maria Fernanda Campoverde MD 210 [place] [phone] documented as of this encounter Goals Goal Patient Goal Type Associated Problems Recent Progress Patient-Stated? Author Routine Health Management General No Leah Badillo RN Note: Routine Health Management Care Team Patient Care Team: Wade Donovan MD as PCP - General (Family Medicine) Leah Badillo RN as Cuff Presser (Family Medicine) Healthcare Directives Future Scheduled Appointments Future Appointments Date Time Provider Department Center 04/22/2025 10:20 AM Maria Fernanda Campoverde MD [facility] 05/11/2025 4:00 PM Kayleen Garcia MD [facility] [place] [facility] 05/12/2025 1:00 PM Darwin Moreau MD [facility] 08/19/2025 2:30 PM Hazel Alvarez MBBS [facility] Health Maintenance Health Maintenance Topic [...] Out Notes: Neurological Management General No Leah Badillo RN Note: Neurological Management Multiple sclerosis (HCC) 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 Donovan Blood pressure goal Less than 140/90 Recent blood pressures BP Readings from Last 3 Encounters: 03/23/25 112/79 03/19/25 127/84 02/24/25 (!) 126/97 Labs Lab Results Component Value Date CHOL 125 08/11/2024 HDL 31 (L) 08/11/2024 LDLCALC 78 08/11/2024 TRIG 81 08/11/2024 [facility] [place] Clinic Lab Results Component Value Date INR 2.80 (A) 03/31/2025 INR 3.60 (A) 03/27/2025 INR 2.20 (A) 03/19/2025 Warfarin dosing per [facility] Lifestyle management (diet and exercise) Notes: 04/02/25: going to be switching over to Eliquis from Coumadin. Having issues getting the rx. Nelia calling insurance documented as of this encounter Visit Diagnoses Diagnosis Pulmonary embolism, unspecified chronicity, unspecified pulmonary embolism type, unspecified whether acute cor pulmonale present (HCC)- Primary Cerebrovascular accident (CVA), unspecified mechanism (HCC) documented in this encounter Additional Health Concerns Infection Onset Date Last Indicated Resolved Time MSSA 08/02/2023 08/02/2023 documented as of this encounter Care Teams Boiler Shop Supervisor Relationship Specialty Start Date End Date Wade Donovan MD [address] [place] [address] PCP - General Family Medicine 02/05/24 documented as of this encounter
--- OUTSIDE RECORDS SUMMARY | 2025-04-27 17:26 | XMS_ITS | Encounter Summary ---
Author Organization [facility] er Address [address] [place] [address] Care Team Providers Care Tableau Analyst Name Role Phone Wade Donovan MD Primary Care Provider [phone] Encounter Details Date Type Department Care Team (Latest Contact Info) Description 03/31/2025 Anticoagulation - Warfarin Visit Anticoagulation [address] [place] [address] [phone] Iliana Doyle, RN 210 [place] [phone] dedicated intermodal truck driver current use of anticoagulant [...] doctor or pharmacy? Always 11/25/2024 [facility] Utilities Answer Date Recorded In [...] often do you attend chur ch or buddhism services? 1 to 4 times per year [...] Score 0 02/24/2025 [facility] of Occupat ional Health [...] Progress Notes * Iliana Doyle RN - 03/31/2025 10:17 AM CDT Anticoagulation Clinic INR RESULTS: INR (no units) Date Value 03/31/2025 2.80 (A) DOSE PLAN: 2 mg every Sondra, Sat; 4 mg all other days DOSE CHANGE: No change NEXT INR: 04/14/25 INR results reviewed with the patient's , Nelia. Previous dosing verified. Nelia stated that thingsare looking much better, regarding the previously noted hematuria. Nelia verbalized understanding of anticoagulation dose plan and date of next INR. She is comfortable with checking next INR in two weeks, will check sooner if anything concerning pops up. Patient is a home liz. AVS sent through [employer]. documented in this encounter Plan of Treatment Upcoming Encounters Date Type Department Care Team (Late st Contact Info) Description 05/11/2025 4:00 PM CDT Office Visit [facility] [address] [place], [place] [phone] Kayleen Garcia MD [address] [place], [place] [phone] 05/12/2025 1:00 PM CDT Office Visit [facility] [address] [place], [place] [phone] Darwin Moreau MD 210 [place] [phone] 05/21/2025 3:20 PM CDT Telemedicine [facility] [address] [place], [place] [phone] Maria Fernanda Campoverde MD 210 [place] [phone] 08/19/2025 2:30 PM DEPUTY SHERIFF GENERALIST/BAILIFF Consult [facility] [address] [place] [address] Hazel Alvarez MBBS [address] [place] [address] 08/24/2025 8:20 AM DEPUTY SHERIFF GENERALIST/BAILIFF Telemedicine [facility] [address] [place] [address] [phone] Maria Fernanda Campoverde MD [address] [place] [phone] documented as of this encounter Goals Goal Patient Goal Type Associated Problems Recent Progress Patient-Stated? Author Routine Health Management General No Leah Badillo, RN Note: Routine Health Management Care Team Patient Care Team: Wade Donovan MD as PCP - General (Family Medicine) Leah Badillo, RN as Production Crew Supervisor (Family Medicine) Healthcare Directives Future Scheduled Appointments Future Appointments Date Time Provider Department Center 04/22/2025 10:20 AM Maria Fernanda Campoverde MD [facility] 05/11/2025 4:00 PM Kayleen Garcia MD [facility] 05/12/2025 1:00 PM Darwin Moreau MD [facility] 08/19/2025 2:30 PM Hazel Alvarez MBBS [facility] Health Maintenance Health Maintenance Topic Date [...] 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 (HCC) [facility] Neurology 03/23/25 Notes: Cardiovascular Management General On track( 025 3:20 PM CDT) No Leah Badillo RN Note: Cardiovascular Management Hyperlipidemia LDL goal <100 Pulmonary embolism (HCC) Managed by (PCP; Cardiology; Anticoag Clinic) Dr. Donovan Blood pressure goal Less than 140/90 Recent blood pressures BP Readings from Last 3 Encounters: 03/23/25 112/79 03/19/25 127/84 02/24/25 (!) 126/97 Labs Lab Results Component Value Date CHOL 125 08/11/2024 HDL 31 (L) 08/11/2024 LDLCALC 78 08/11/2024 TRIG 81 08/11/2024 [facility] Lab Results Component Value Date INR 2.80 (A) 03/31/2025 INR 3.60 (A) 03/27/2025 INR 2.20 (A) 03/19/2025 Warfarin dosing per [facility] Lifestyle management (diet and exercise) Notes: 04/02/25: going to be switching over to Eliquis from Coumadin. Having issues getting the rx. Nelia calling insurance documented as of this encounter Procedures Procedure Name Priority Date/Time Associated Diagnosis Comments PROTIME-INR Routine 03/31/2025 documented in this encounter Results * (ABNORMAL) Protime-INR (03/31/2025) INR 2.80(A) 0.90 - 1.10 HOME HEA [...] documented as of this encounter Care Teams Tableau Analyst Relationship Specialty Start Date End Date Wade Donovan MD [address] [place] [address] PCP - General Family Medicine 02/05/24 documented as of this encounter
--- OUTSIDE RECORDS SUMMARY | 2025-04-27 17:26 | XMS_ITS | Encounter Summary ---
Author Organization [facility] er Address [address] [place] [address] Care Team Providers Care Machine Tailer Name Role Phone Wade Donovan MD Primary Care Provider [phone] Reason for Visit * Reason Onset Date Comments Palliative Care Referral 04/02/2025 Encounter Details Date Type Department Care Team (Late st Contact Info) Description 04/02/2025 Telephone Active A[facility] Services [address] [place] [address] Kayleen Garcia MD [address] [place] [address] Palliative Care Referral Social History Tobacco Use Types Packs/Day [...] from your doctor or pharmacy? Always 11/25/2024 [facility] Utilities Answer Date Recorded In the past [...] Date Recorded PHQ-9 Total Score 0 02/24/2025 [facility] of Occupat ional Health - Occupational [...] slept in a usp (including now)? No 11/07/2023 Housing Stability Vital [...] were you homeless or living in a usp (including now)? No 11/25/2024 Interpersonal Safety Questionnaire [...] encounter Miscellaneous Notes * Telephone Encounter - Cassia Nur - 04/02/2025 9:56 AM CDT Palliative Care Screen Referring provider: Wade Donovan MD Referred Diagnosis: Multiple sclerosis (HCC) - Primary Completed with: Nelia Hinds Place of residence: [facility] [place] Primary caregiver: Nelia Zeferinodominique, Home care services: none ADLs Dressing: assistance Grooming: assistance Bathing: assistance with showering, shower chair Mobility/Transfers: power wheelchair, non-ambulatory, moon lift Toileting/continence: assistance with I&O Catheter, continent with bowel with constipation IADLs Cleaning/Cooking/Shopping: assistance from Managing Finances: assistance from Managing Medications: assistance from Driving ability: not driving Falls in last 6 months/any significant injuries: no falls Pain/Dyspnea/Nausea: no pain, no shortness of breath, no nausea Appetite (weight loss): good appetite Anxiety/Depression: a little bit maybe Behavioral dyscontrol (paranoia/hallucinations/aggression): None Homebound: yes Advanced Directive/POLST: POLST on file, no advance directive Hospitalizations/ED visit in past year: Admission 03/04/2025 Nephrolithiasis, ED visit 03/26/2025 Hematuria Serious/Chronic illnesses: multiple sclerosis, 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 Garcia for Palliative Care Consult at [facility]. documented in this encounter Plan of Treatment Upcoming Encounters Date Type Department Care Team (Late st Contact Info) Description 05/11/2025 4:00 PM CDT Office Visit SE [facility] [address] [place] [address] [phone] Kayleen Garcia MD [address] [place] [address] [phone] 05/12/2025 1:00 PM CDT Office Visit [facility] Throat [address] [place] [address] [phone] Darwin Moreau MD [address] [place] [phone] 05/21/2025 3:20 PM CDT [facility] [address] [place] [address] [phone] Maria Fernanda Campoverde MD [address] [place] [address] [phone] 08/19/2025 2:30 PM PAINT TECHNICIAN Consult [facility] [address] [place] [address] [phone] Hazel Alvarez MBBS [address] [place] [address] [phone] 08/24/2025 8:20 AM PAINT TECHNICIAN [facility] [address] [place] [address] 32814 Maria Fernanda Campoverde MD [address] [place] [phone] documented as of this encounter Goals Goal Patient Goal Type Associated Problems Recent Progress Patient-Stated? Author Routine Health Management General No Leah Badillo, RN Note: Routine Health Management Care Team Patient Care Team: Wade Donovan MD as PCP - General (Family Medicine) Leah Badillo, RN as Rubber Off (Family Medicine) Healthcare Directives Future Scheduled Appointments Future Appointments Date Time Provider Department Center 04/22/2025 10:20 AM Maria Fern[facility] 05/11/2025 4:00 PM Kayleen Garcia MD [facility] 05/12/2025 1:00 PM [facility] 08/19/2025 2:30 PM Hazel Alvarez MBBS [facility] Health Maintenance Health Maintenance Topic Date [...] 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 (HCC) [facility] Neurology 03/23/25 Notes: [...] 08/11/2024 LDLCALC 78 08/11/2024 TRIG 81 08/11/2024 [facility] anticoag Clinic Lab Results Component Value Date INR 2.80 (A) 03/31/2025 INR 3.60 (A) 03/27/2025 INR 2.20 (A) 03/19/2025 Warfarin dosing per [facility] Anticoag Clinic Lifestyle management (diet and exercise) Notes: 04/02/25: going to be switching over to Eliquis from Coumadin. Having issues getting the rx. Nelia calling insurance documented as of this encounter Visit Diagnoses Not on filedocumented in this encounter Additional Health Concerns Infection Onset Date Last Indicated Resolved Time MSSA 08/02/2023 08/02/2023 documented as of this encounter Care Teams Machine Tailer Relationship Specialty Start Date End Date Wade Donovan MD [address] [place] [phone] PCP - General Family Medicine 02/05/24 documented as of this encounter
--- OUTSIDE RECORDS SUMMARY | 2025-04-27 17:26 | XMS_ITS | Encounter Summary ---
Author Organization [facility] er Address [address] [place] [address] Care Team Providers Care Edge Baster Name Role Phone Wade Donovan MD Primary Care Provider [phone] Encounter Details Date Type Department Care Team (Latest Contact Info) Description 04/14/2025 Anticoagulation - Warfarin Visit Anticoagulation [address] [place] [address] [phone] Iliana Doyle, RN 210 [place] [phone] ferry terminal agent current use of anticoagulant (Primary Dx); Other [...] often do you attend chur ch or confucianism services? 1 to 4 times per year [...] Date Recorded PHQ-9 Total Score 0 02/24/2025 [facility] of Occupat ional Health - [...] a skilled nursing (including now)? No 11/07/2023 Housing Stability Vital [...] were you homeless or living in a skilled nursing (including now)? No 11/25/2024 Interpersonal Safety Questionnaire [...] Progress Notes * Iliana Doyle RN - 04/14/2025 2:29 PM CDT Patient's called [facility] to let us know he has switched from warfarin to Eliquis. Verified this onmed list and in Epic notes. She asked if he needs to check his INR now, [facility] let her know that no, he will not longer require INR checks on Eliquis. She will contact the home testing company. She thanked [facility] and said it has been a pleasure working with his, [facility] told her the same. Patient will be discontinued from [facility] services at this time, as he is no longer on warfarin. [facility] can manage Eliquis if a DOAC referral is received. documented in this encounter Plan of Treatment Upcoming Encounters Date Type Department Care Team (Late st Contact Info) Description 05/11/2025 4:00 PM CDT Office Visit [facility] [address] [place] [address] [phone] Kayleen Garcia MD [address] [place] [address] [phone] 05/12/2025 1:00 PM CDT Office Visit [facility] [address] [place], [place] 999444 Darwin Moreau MD 210 [place] [phone] 05/21/2025 3:20 PM CDT [facility] [address] [place] [address] Maria Fernanda Campoverde MD 210 [place] [phone] 08/19/2025 2:30 PM SQL REPORT WRITER Consult [facility] 210 [address], [place] [address] Hazel Alvarez MBBS [address] [place] [address] [phone] 08/24/2025 8:20 AM SQL REPORT WRITER Telemedicine Neurology [address] [place], [place] [phone] Maria Fernanda Campoverde MD 210 [place] [phone] documented as of this encounter Goals Goal Patient Goal Type Associated Problems Recent Progress Patient-Stated? Author Routine Health Management General No Leah Badillo, RN Note: Routine Health Management Care Team Patient Care Team: Wade Donovan MD as PCP - General (Family Medicine) Leah Badillo, RN as Juvenile Probation Officer (Family Medicine) Healthcare Directives Future Scheduled Appointments Future Appointments Date Time Provider Department Center 04/22/2025 10:20 AM Maria Fernanda Campoverde MD [facility] 05/11/2025 4:00 PM Kayleen Garcia MD [facility] 05/12/2025 1:00 PM Darwin Moreau MD [facility] 08/19/2025 2:30 PM Hazel Alvarez MBBS [facility] Health Maintenance Health Maintenance Topic Date Due [...] 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 (HCC) [facility] Neurology 03/23/25 Notes: Cardiovascular Management General On [...] 08/11/2024 LDLCALC 78 08/11/2024 TRIG 81 08/11/2024 [facility] antico Clinic Lab Results Component Value Date INR 2.80 (A) 03/31/2025 INR 3.60 (A) 03/27/2025 INR 2.20 (A) 03/19/2025 Warfarin dosing per [facility] Lifestyle management (diet and exercise) Notes: 04/02/25: going to be switching over to Eliquis from Coumadin. Having issues getting the rx. Nelia calling insurance documented as of this encounter Visit Diagnoses Diagnosis senior living current use of anticoagulant- Primary Other pulmonary embolism without acute cor pulmonale, unspecified chronicity (HCC) documented in this encounter Additional Health Concerns Infection Onset Date Last Indicated Resolved Time MSSA 08/02/2023 08/02/2023 documented as of this encounter Care Teams Edge Baster Relationship Specialty Start Date End Date Wade Donovan MD [address] [place] [address] PCP - General Family Medicine 02/05/24 documented as of this encounter
--- OUTSIDE RECORDS SUMMARY | 2025-04-27 17:26 | XMS_ITS | Encounter Summary ---
Author Organization [facility] er Address [address] [place] [address] Care Team Providers Care Firer Marine Name Role Phone Wade Donovan MD Primary Care Provider [phone] Reason for Visit * Reason Onset Date Comments Home Health 03/30/2025 Encounter Details Date Type Department Care Team (Late st Contact Info) Description 03/30/2025 Telephone [facility] Cinder Pit Crane Operator [address] [place] [address] Alissa Garcia, [facility] [address] [place] [address] [facility] Social History Tobacco Use Types Packs/Day Years [...] How often do you attend chur or amish services? 1 to 4 times per year [...] Date Recorded PHQ-9 Total Score 0 02/24/2025 [facility] of Occupat ional Health - Occupational Stress [...] any time in the past 12 m [facility], were you homeless or living in a [...] Telephone Encounter - Leah Badillo RN - 04/21/2025 3:32 PM CDT Noted. Thank you * Telephone Encounter - Alissa Garcia LGSW - 04/10/2025 9:00 AM CDT Mold Cutting Machine Operator called pt to provide update on referral. notified that no agency was available to accept pt. stated understanding. She denied any other questions or resource needs at this time.All questions and concerns addressed. [facility] contact information provided for future needs. No further [facility] needs at this time. * Telephone Encounter - Alissa Garcia LGSW - 04/09/2025 2:52 PM CDT [facility] declined as pt does not live in their service area. Mold Cutting Machine Operator to update pt and at a later date. [facility] to continue to follow and assist as needed. * Telephone Encounter - Alissa Garcia LGSW - 04/06/2025 4:07 PM CDT [facility] declined as pt does not live in their service area. Mold Cutting Machine Operator to update pt and wifeat a later date. [facility] to continue to follow and assist as needed. * Telephone Encounter - Alissa Garcia LGSW - 04/06/2025 3:15 PM CDT Mold Cutting Machine Operator attempted to call [facility] to inquire about an update. Mold Cutting Machine Operator left a message with[facility] contact information and requested a return call. Mold Cutting Machine Operator also sent a referral to [facility] for review. [facility] to continue to follow and assist as needed. * Telephone Encounter - Alissa Garcia LGSW - 04/01/2025 3:38 PM CDT [facility] declined as pt does not live in their service area. Mold Cutting Machine Operator to update pt and at a later date. [facility] to continue to follow and assist as needed. * Telephone Encounter - Alissa Garcia LGSW - 04/01/2025 11:13 AM CDT [facility] as they currently do not have any staffing in pt area. Mold Cutting Machine Operator to update pt and at a later date. [facility] to continue to follow and assist as needed. * Telephone Encounter - Alissa Garcia LGSW - 04/01/2025 10:35 AM CDT [facility] currently does not have any staffing in [facility] and are unable to accept at this time. Mold Cutting Machine Operator to update pt and at a later date. [facility] to continue to follow and assist as needed. * Telephone Encounter - Alissa Garcia LGSW - 04/01/2025 10:03 AM CDT [facility] does not provide therapy services. Mold Cutting Machine Operator to send referrals to [facility], and [facility]. [facility] to continue to follow and assist as needed. * Telephone Encounter - Alissa Garcia LGSW - 04/01/2025 9:52 AM CDT Mold Cutting Machine Operator received a return call from pt (Active ROB on file). She confirmed that she is looking for PT/OT home health therapy for pt. Pt has used [facility] in the past and would like a referral sent to the agency to review. Pt and are open to referrals being sent to other agencies if needed. Mold Cutting Machine Operator and also discussed on going COURT MESSENGER services. She shared that she is the primary caregiver andwould be open to services that could assist her. Mold Cutting Machine Operator discussed [facility] and the private pay COURT MESSENGER agencies that she could connect with to further discuss. expressed interest and asked that the guide be sent to their listed address. denied any other questions or resource needs at this time. All questions and concerns addressed. [facility] contact information provided. [facility] to continue to follow and assist as needed. * Telephone Encounter - Alissa Garcia LGSW - 03/30/2025 11:14 AM CDT Received referral regarding: Looking to see if he can qualify for in home PT/OT. Mold Cutting Machine Operator attempted to call pt and to discuss referral. Mold Cutting Machine Operator left a message with [facility] contact information and requested a return call. documented in this encounter Plan of Treatment Upcoming Encounters Date Type Department Care Team (Late st Contact Info) Description 05/11/2025 4:00 PM CDT Office Visit [facility] [address] [place], [place] [phone] Kayleen Garcia MD [address] [place] [address] [phone] 05/12/2025 1:00 PM CDT Office Visit SE [facility] N[facility] Throat [address] [place] [address] 20838 Darwin Moreau MD [address] [place] [address] [phone] 05/21/2025 3:20 PM CDT Telemedicine Neurology [address] [place] [address] [phone] Maria Fernanda Campoverde MD [address] [place] [address] [phone] 08/19/2025 2:30 PM PRODUCT BLENDING SUPERVISOR Consult [facility] [address] [place] [address] [phone] Hazel Alvarez MBBS [address] [place] [address] [phone] 08/24/2025 8:20 AM PRODUCT BLENDING SUPERVISOR [facility] [address] [place] [address] [phone] Maria Fernanda Campoverde MD [address] [place] [address] [phone] documented as of this encounter Goals Goal Patient Goal Type Associated Problems Recent Progress Patient-Stated? Author Routine Health Management General No Leah Badillo, RN Note: Routine Health Management Care Team Patient Care Team: Wade Donovan MD as PCP - General (Family Medicine) Leah Badillo, RN as Rug Washer (Family Medicine) Healthcare Directives Future Scheduled Appointments Future Appointments Date Time Provider Department Center 04/22/2025 10:20 AM Maria Fernanda Campoverde MD [facility] 05/11/2025 4:00 PM Kayleen Garcia MD [facility] 05/12/2025 1:00 PM Darwin Moreau MD [facility] 08/19/2025 2:30 PM Hazel Alvarez MBBS [facility] Health Maintenance Health Maintenance Topic Date Due [...] 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 (HCC) [facility] Neurology 03/23/25 Notes: Cardiovascular [...] 08/11/2024 LDLCALC 78 08/11/2024 TRIG 81 08/11/2024 [facility] anticoag Clinic Lab Results Component Value Date INR 2.80 (A) 03/31/2025 INR 3.60 (A) 03/27/2025 INR 2.20 (A) 03/19/2025 Warfarin dosing per [facility] Anticoag Clinic Lifestyle management (diet and exercise) Notes: 04/02/25: going to be switching over to Eliquis from Coumadin. Having issues getting the rx. Nelia calling insurance documented as of this encounter Visit Diagnoses Not on filedocumented in this encounter Additional Health Concerns Infection Onset Date Last Indicated Resolved Time MSSA 08/02/2023 08/02/2023 documented as of this encounter Care Teams Firer Marine Relationship Specialty Start Date End Date Wade Donovan MD [address] [facility] [address] [place] [phone] PCP - General Family Medicine 02/05/24 documented as of this encounter
--- OUTSIDE RECORDS SUMMARY | 2025-04-27 17:26 | XMS_ITS | Encounter Summary ---
Author Organization [facility] er Address [address] [place] [address] Care Team Providers Care Production Intern Name Role Phone Wade Donovan MD Primary Care Provider Reason for Visit * Reason Onset Date Comments modafinil 100 MG tablet 03/27/2025 Encounter Details Date Type Department Care Team (Late st Contact Info) Description 03/27/2025 Telephone [facility] [address] [place] [phone] Maria Fernanda Campoverde MD 210 [place] [phone] modafinil 100 MG tablet Social History Tobacco Use Types Packs/Day Years [...] from your doctor or pharmacy? Always 11/25/2024 [facility] Utilities Answer Date Recorded In the past [...] Date Recorded PHQ-9 Total Score 0 02/24/2025 [facility] of Occupat ional Health - Occupational Stress [...] slept in a detention (including now)? No 11/07/2023 Housing Stability Vital Sign Answer Jose e Recorded In the last 12 months, was t here a time when you were not able to pay the mortgage or rent on time? No 11/25/2024 In the past 12 months, how m any times have you moved where you were living? 0 11/25/2024 At any time in the past 12 m [facility], were you homeless or living in a detention (including now)? No 11/25/2024 Interpersonal Safety Questionnaire [...] encounter Miscellaneous Notes * Telephone Encounter - Samantha Vivreos LPN - 03/30/2025 2:04 PM CDT Images from the original note were not included. Prior Auth Approved through 09/26/2025 Pharmacy advised via [employer] program * Telephone Encounter - Glenys Galvin MA - 03/27/2025 10:02 AM CDT modafinil 100 MG tablet BIN: PCN: GROUP: PLAN: Terry PHONE: ID: [id number] Form completed and faxed to Terry at documented in this encounter Plan of Treatment Upcoming Encounters Date Type Department Care Team (Late st Contact Info) Description 05/11/2025 4:00 PM CDT Office Visit [facility] [address] [place], [place] [phone] Kayleen Garcia MD [address] [place], [place] [phone] 05/12/2025 1:00 PM CDT Office Visit [facility] Nose Throat 210 [address], [place] [address] Darwin Moreau MD 210 [facility] [place] [phone] 05/21/2025 3:20 PM CDT [facility] [address] [place], [place] [phone] Maria Fernanda Campoverde MD 210 [place] [phone] 08/19/2025 2:30 PM MANAGER DRUG Consult [facility] [address] [place] [address] [phone] Hazel Alvarez MBBS [address] [place] [address] [phone] 08/24/2025 8:20 AM MANAGER DRUG [facility] [address] [place] [address] [phone] Maria Fernanda Campoverde MD [address] [place] [phone] documented as of this encounter Goals Goal Patient Goal Type Associated Problems Recent Progress Patient-Stated? Author Routine Health Management General No Leah Badillo, RN Note: Routine Health Management Care Team Patient Care Team: Wade Donovan MD as PCP - General (Family Medicine) Leah Badillo, RN as Logistics Intern (Family Medicine) Healthcare Directives Future Scheduled Appointments Future Appointments Date Time Provider Department Center 04/22/2025 10:20 AM Maria Fernanda Campoverde MD [facility] 05/11/2025 4:00 PM Kayleen Garcia MD [facility] 05/12/2025 1:00 PM Darwin Moreau MD [facility] 08/19/2025 2:30 PM Hazel Alvarez MBBS [facility] Health Maintenance Health Maintenance Topic Date [...] 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 (HCC) [facility] Neurology 03/23/25 Notes: Cardiovascular Management General On [...] 08/11/2024 LDLCALC 78 08/11/2024 TRIG 81 08/11/2024 [facility] antico Clinic Lab Results Component Value Date INR 2.80 (A) 03/31/2025 INR 3.60 (A) 03/27/2025 INR 2.20 (A) 03/19/2025 Warfarin dosing per [facility] Lifestyle management (diet and exercise) Notes: 04/02/25: going to be switching over to Eliquis from Coumadin. Having issues getting the rx. Nelia calling insurance documented as of this encounter Visit Diagnoses Not on filedocumented in this encounter Additional Health Concerns Infection Onset Date Last Indicated Resolved Time MSSA 08/02/2023 08/02/2023 documented as of this encounter Care Teams Production Intern Relationship Specialty Start Date End Date Wade Donovan MD [address] [place] [phone] PCP - General Family Medicine 02/05/24 documented as of this encounter
--- OUTSIDE RECORDS SUMMARY | 2025-04-27 17:27 | XMS_ITS | Encounter Summary ---
Author Organization [facility] Address [address] [place] [phone] Care Team Providers Care Demand Generator Manager Name Role Phone Elsewhere, Pcp Primary Care Provider Unavailabl e Reason for Referral * Outpatient (Routine) - Closed Specialty Diagnoses / Procedures Referred By Joan t Referred To Contact Vascular Medicine Diagnoses Embolus Pulmonary Personal History Marcos Watkins M.D. [address] [place] [phone] Phone: tel: fax: [facility] Referral ID Status Reason Start Date Expiration Date Visits Re quested Visits Authorized [id number] Closed 03/27/2025 09/26/2026 1 1 Encounter Details Date Type Department Care Team (Late st Contact Info) Description 03/27/2025 Orders Only Department of Urology in [place], [place] [address] [place] [phone] Marcos Watkins M.D. [address] [place] [phone] Embolus Pulmonary Personal History (Primary Dx) Social History Tobacco Use Types Packs/Day Years Used Date Smoking Tobacco: Former Cigarettes Passive Smoke Exposure: Current Smokeless Tobacco: Former Chew Alcohol Use Standard Drinks/Week Comments No 0 (1 standard drink = 0.6 oz pur e alcohol) [facility] Utilities Answer Date Recorded In the past 12 months has th e electric, gas, oil, or water [employer] threatened to shut off services in your [...] your living situation today? I have a [facility] place to live 03/05/2025 Education Answer Date Recorded What is the highest level of school you have completed or the highest degree you have received? 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 200 [place] [phone] 05/01/2025 1:15 PM CDT Clinical Support Division of Allergic Diseases in [place], [place] [address] [place] [address] Simi Hart MPAS, P.A.-C. [address] [place] [phone] 05/01/2025 2:00 PM CDT Comprehensive Visit Division of Allergic Diseases in [place], [place] [address] [place] [address] Darwin Martinez M.D., Ph.D. [address] [place] [phone] 05/15/2025 2:23 PM CDT Hospital Encounter [facility] Bed Planning Bill Pacheco M.D. [address] [place] [phone] 05/15/2025 2:23 PM CDT - 05/15/2025 4:26 PM CDT Surgery [facility] OR [address] [place] [address] Bill Pacheco M.D. [address] [place] [phone] URETEROSCOPY WITH LASER LITHOTRIPSY,WITH CALYXO, PROCEED INDICATED Scheduled Procedures Name Priority Associated Diagnoses Date/Ti me URETEROSCOPY WITH LASER LITHOTRIPSY Nephrolithiasis 05/15/2025 2:23 PM CDT EXCHANGE URETERAL STENT Nephrolithiasis 05/15/2025 2:23 PM CDT Scheduled Referrals Name Type Priority Associated Diagnoses Order Schedule Vascular Medicine - Thrombophilia consult (clinic) Outpatient Referral Routine Embolus Pulmonary Personal History Expected: 03/27/2025, Expires: 06/27/2026 documented as of this encounter Goals Goal Patient Goal Type Associated Problems Recent Progress Patient-Stated? Author Autogenerat ed Goal Care Plan Autogenerated Problem No Vidhya Villarreal R.N. documented as of this encounter Results * APTT (Activated Partial Thromboplastin Time) (04/24/2025 8:37 AM CDT) Activated Partial Thrombopl Time, P 33 25 - 37 sec 04/24/2025 9:30 AM CDT DTL Blood (Blood, Venous) 04/24/2025 8:37 AM CDT 04/24/2025 9:03 AM CDT Marcos Watkins M.D. LAB BLOOD ADD-ON Final Re sult Performing Organization Address City/[facility] Co de Phone Number [facility] [address] [place] [address] * (ABNORMAL) Prothrombin Time (PT) (04/24/2025 8:37 AM CDT) Prothrombin Time, P 14.3(H) 9.4 - 12.5 sec 04/24/2025 9:30 AM CDT DTL INR 1.3 0.9 - 1.1 04/24/2025 9:30 AM CDT DTL Comment: ----ADDITIONAL INFORMATION---- Standard intensity warfarin therapeutic range: 2.0 to 3.0 High intensity warfarin therapeutic range: 2.5 to 3.5 Blood (Blood, Venous) 04/24/2025 8:37 AM CDT 04/24/2025 9:03 AM CDT Marcos Watkins M.D. LAB BLOOD ADD-ON Final Re sult [facility] [address] [place] [address] * (ABNORMAL) CBC with Differential, Blood (04/24/2025 8:37 AM CDT) Hemoglobin 14.3 13.2 - 16.6 g/dL 04/24/2025 [...] - 6.45 x10(9)/L 04/24/2025 9:15 AM CDT DH[facility] Lymphocytes 1.13 0.95 - 3.07 x10(9)/L 04/24/2025 9:15 AM CDT DTL Monocytes 0.68 0.26 - 0.81 x10(9)/L 04/24/2025 9:15 AM CDT DTL Eosinophils 0.11 0.03 - 0.48 x10(9)/L 04/24/2025 9:15 AM CDT DTL Basophils 0.03 0.01 - 0.08 x10(9)/L 04/24/2025 9:15 AM CDT DTL Blood (Blood, Venous) 04/24/2025 8:37 AM CDT 04/24/2025 9:03 AM CDT us Marcos Watkins M.D. LAB BLOOD ADD-ON Final Re sult [facility] [address] [place] [address], [facility] DTL [facility] [address] [place] [address] [facility] [address] [place] [address] * (ABNORMAL) Comprehensive Metabolic Panel (04/24/2025 8:36 AM CDT) [facility] Potassium, S 4.5 3.6 - 5.2 mmol/L [...] 8:36 AM CDT 04/24/2025 8:59 AM CDT Marcos Watkins M.D. LAB BLOOD ADD-ON Final Re sult [facility] [address] [place] [address], [facility] DTL [facility] [address] [place] [address] documented in this encounter Visit Diagnoses Diagnosis Nephrolithiasis- Primary Embolus Pulmonary Personal History- Primary Nephrolithiasis documented in this encounter Additional Health Concerns Active Problems Noted Date Diagnosed Date Autogenerated Problem 03/27/2025 documented as of this encounter Care Teams Demand Generator Manager Relationship Specialty Start Date End Date Elsewhere, Pcp PCP - General Family Medicine 09/06/17 documented as of this encounter
--- OUTSIDE RECORDS SUMMARY | 2025-04-27 17:27 | XMS_ITS | Encounter Summary ---
Author Organization [facility] Address [address] [place] [address] Care Team Providers Care Electrical Assembler Name Role Phone Elsewhere, Pcp Primary Care Provider Unavailabl e Encounter Details Date Type Department Care Team (Late st Contact Info) Description 03/05/2025 Orders Only Department of Urology in [place], [place] [address] [place] [phone] Dejan Talamantes M.B., B.Ch. [address] [place] [phone] Social History Tobacco Use Types Packs/Day Years Used Date Smoking Tobacco: Former Cigarettes Passive Smoke Exposure: Current Smokeless Tobacco: Former Chew Alcohol Use Standard Drinks/Week Comments No 0 (1 standard drink = 0.6 oz pur e alcohol) [facility] Utilities Answer Date Recorded In the past 12 months has [facility] [employer], [employer], oil, or water [employer] threatened to shut off services in your [...] your living situation today? I have a [facility] place to live 03/05/2025 Education Answer Date Recorded What is the highest level of school you have completed or the highest degree you have received? 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 [address] [place] [phone] 05/01/2025 1:15 PM CDT Clinical Support Division of Allergic Diseases in [place], [place] [address] [place] [phone] Simi Hart, DANIS, P.A.-C. [address] [place] [phone] 05/01/2025 2:00 PM CDT Comprehensive Visit Division of Allergic Diseases in [place], [place] [address] [place] [phone] Darwin Martinez M.D., Ph.D. [address] [place] [phone] 05/15/2025 2:23 PM CDT Hospital Encounter [facility] Bed Planning Bill Pacheco M.D. [address] [place] [phone] 05/15/2025 2:23 PM CDT - 05/15/2025 4:26 PM CDT Surgery [facility] [address] [place] [phone] Bill Pacheco M.D. [address] [place] [phone] URETEROSCOPY WITH LASER LITHOTRIPSY,WITH CALYXO, PROCEED INDICATED Scheduled Procedures Name Priority Associated Diagnoses Date/Ti me URETEROSCOPY WITH LASER LITHOTRIPSY Nephrolithiasis 05/15/2025 2:23 PM CDT EXCHANGE URETERAL STENT Nephrolithiasis 05/15/2025 2:23 PM CDT documented as of this encounter Visit Diagnoses Not on filedocumented in this encounter Care Teams Electrical Assembler Relationship Specialty Start Date End Date Elsewhere, Pcp PCP - General Family Medicine 09/06/17 documented as of this encounter
--- OUTSIDE RECORDS SUMMARY | 2025-04-27 17:27 | XMS_ITS | Encounter Summary ---
Author Organization [facility] Address [address] [place] [address] Care Team Providers Care Hog Room Supervisor Name Role Phone Elsewhere, Pcp Primary Care Provider Unavailabl e Reason for Referral * Outpatient (Routine) - Authorized Specialty Diagnoses / Procedures Referred By Contact Referred To Contact Physical Medicine and Rehabilitation Diagnoses Multiple Sclerosis (HCC) Paraparesis Spastic (HCC) Maria Fernanda Campoverde M.D., Ph.D. [address] [place] [phone] Phone: tel: fax: [facility] Referral ID Status Reason Start Date Expiration Date V isits Requested Visits Authorized [id number] Authorized 03/24/2025 09/23/2026 1 1 Encounter Details Date Type Department Care Team (Late st Contact Info) Description 03/24/2025 [facility] [address] [place] [phone] Maria Fernanda Campoverde M.D., Ph.D. [address] [place] [phone] Multiple Sclerosis (HCC) (Primary Dx); Paraparesis Spastic (HCC) Social History Tobacco Use Types Packs/Day Years Used Date Smoking Tobacco: Former Cigarettes Passive Smoke Exposure: Current Smokeless Tobacco: Former Chew Alcohol Use Standard Drinks/Week Comments No 0 (1 standard drink = 0.6 oz pur e alcohol) [facility] Utilities Answer Date Recorded In the past [...] your living situation today? I have a [facility] place to live 03/05/2025 Education Answer Date Recorded What is the highest level of school you have completed or the highest degree you have received? 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 [address] [place] [phone] 05/01/2025 1:15 PM CDT Clinical Support Division of Allergic Diseases in [place], [place] [address] [place] [phone] Simi Hart, NEYS, P.A.-C. [address] [place] [phone] 05/01/2025 2:00 PM CDT Comprehensive Visit Division of Allergic Diseases in [place], [place] [address] [place] [phone] Darwin Martinez M.D., Ph.D. [address] [place] [phone] 05/15/2025 2:23 PM CDT Hospital Encounter [facility] Bed Planning Bill Pacheco M.D. [address] [place] [phone] 05/15/2025 2:23 PM CDT - 05/15/2025 4:26 PM CDT Surgery [facility] [address] [place] [address] Bill Pacheco M.D. [address] [place] [phone] URETEROSCOPY WITH LASER LITHOTRIPSY,WITH CALYXO, PROCEED INDICATED Scheduled Procedures Name Priority Associated Diagnoses Date/Ti me URETEROSCOPY WITH LASER LITHOTRIPSY Nephrolithiasis 05/15/2025 2:23 PM CDT EXCHANGE URETERAL STENT Nephrolithiasis 05/15/2025 2:23 PM CDT Scheduled Referrals Name Type Priority Associated Diagnoses Order Schedule Physical Medicine & Rehabilitation Referral Outpatient Referral Routine Multiple Sclerosis (HCC) Paraparesis Spastic (HCC) Expected: 03/24/2025 (Approximate), Expires: 06/24/2026 documented as of this encounter Visit Diagnoses Diagnosis Nephrolithiasis- Primary Multiple Sclerosis (HCC)- Primary Paraparesis Spastic (HCC) Nephrolithiasis documented in this encounter Care Teams Hog Room Supervisor Relationship Specialty Start Date End Date Elsewhere, Pcp PCP - General Family Medicine 09/06/17 documented as of this encounter
--- OUTSIDE RECORDS SUMMARY | 2025-04-27 17:27 | XMS_ITS | Encounter Summary ---
Author Organization [facility] Address [address] [place] [phone] Care Team Providers Care [employer] Certified Network Associate Name Role Phone Elsewhere, Pcp Primary Care Provider Unavailabl e Reason for Visit * Reason Onset Date Comments Urinary Problem 03/26/2025 Encounter Details Date Type Department Care Team (Late st Contact Info) Description 03/26/2025 Nurse Triage Department of Family Medicine, [facility] in [address] [phone] Paider, Lizzette Jackson R.N. [address] [place] [phone] Urinary Problem Social History Tobacco Use Types Packs/Day Years Used Date Smoking Tobacco: Former Cigarettes Passive Smoke Exposure: Current Smokeless Tobacco: Former Chew Alcohol Use Standard Drinks/Week Comments No 0 (1 standard drink = 0.6 oz pur e alcohol) [facility] Utilities Answer Date Recorded In the past 12 months has [facility] [employer], gas, oil, or water [employer] threatened to shut off services in your [...] your living situation today? I have a [facility] place to live 03/05/2025 Education Answer Date Recorded What is the highest level of school you have completed or the highest degree you have received? 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 - 03/26/2025 5:08 PM CDT Chief Complaint / Reason for Call Patient is a 64 y.o. male calling regarding Urinary Problem. Assessment Concern: Patient had a Lithotripsy on 03/06/25. Patient is now having blood in his urine, his urine is dark in color, and it is concentrated. Patient has had smaller clots noted the last couple of days. Patient is on blood thinners. Overall the patient is not feeling well, but he can't say exactly why. Caller states that yesterday the patient was having bright red blood in his urine. Present for: 48 hours Home cares tried: Monitor Calling to request: Advice The recommended disposition is See a health care provider within 4 hours. [place] patient advised to present to their nearest emergency department for further recommendation oftheir concerns. Reason for Disposition Taking Coumadin (warfarin) or other strong blood thinner, or known bleeding disorder (e.g., thrombocytopenia) Protocols used: Urine - Blood In-Adult- Care Advice Patient/Caregiver understands and will follow care advice?: Yes, able to teach back Urine - Blood In-Adult- Nurse Lizzette Amaro Mar 26, 2025 05:16 PM Care Advice SEE HCP (OR PCP TRIAGE) WITHIN 4 HOURS: * IF OFFICE WILL BE OPEN: You need to be seen within the next 3 or 4 hours. Call your doctor (or REVERSE ENGINEER/PA) now or as soon as the office opens. BRING MEDICINES: * Bring a list of your current medicines when you go to see the doctor (or REVERSE ENGINEER/PA). * Bring the pill bottles too. This will help the doctor to make certain you are taking the right medicines and the right dose. CALL BACK IF: * Fever occurs * You become worse CARE ADVICE given per Urine - Blood In (Adult) guideline. documented in this encounter Plan of Treatment Upcoming Encounters Date Type Department Care Team (Latest Contact Info) Description 05/01/2025 11:30 AM CDT Appointment Department of Laboratory Medicine in [address] [phone] Bill Pacheco M.D. [address] [place] [phone] 05/01/2025 1:15 PM CDT Clinical Support Division of Allergic Diseases in [place], [place] [address] [place] [phone] Simi Hart MPAS, P.A.-C. [address] [place] [phone] 05/01/2025 2:00 PM CDT Comprehensive Visit Division of Allergic Diseases in [place], [place] 200 [place] [phone] Darwin Martinez M.D., Ph.D. [address] [place] [phone] 05/15/2025 2:23 PM CDT Hospital Encounter [facility] Bed Planning Bill Pacheco M.D. [address] [place] [phone] 05/15/2025 2:23 PM CDT - 05/15/2025 4:26 PM CDT Surgery [facility] [address] [place] [address] Bill Pacheco M.D. [address] [place] [phone] URETEROSCOPY WITH LASER LITHOTRIPSY,WITH CALYXO, PROCEED INDICATED Scheduled Procedures Name Priority Associated Diagnoses Date/Ti me URETEROSCOPY WITH LASER LITHOTRIPSY Nephrolithiasis 05/15/2025 2:23 PM CDT EXCHANGE URETERAL STENT Nephrolithiasis 05/15/2025 2:23 PM CDT documented as of this encounter Visit Diagnoses Not on filedocumented in this encounter Care Teams [employer] Certified Network Associate Relationship Specialty Start Date End Date Elsewhere, Pcp PCP - General Family Medicine 09/06/17 documented as of this encounter
--- OUTSIDE RECORDS SUMMARY | 2025-04-27 17:27 | XMS_ITS | Clinical Summary ---
Author Organization [facility] er Address [address] [place] [address] Care Team Providers Care Business Owner/Engineer Name Role Phone Wade Donovan MD Primary [...] for constipation. 180 each 3 020 Active Additional Information Patient taking differently: May take one tab 1-2 times per day if needed for constipation.25 mg nightly, Reported on 03/23/2025 olopatadine (PATADAY) 0.2 % ophthalmic solution Administer 1 drop into both eyes daily Active atorvastatin (LIPITOR) 20 MG tabletIndications :Mixed hyperlipidemia Take 1 tablet (20 mg total) by mouth every night 90 tablet 3 024 Active ketoconazole (NIZORAL) 2 % shampooIndication s:Seborrheic dermatitis Apply topically 2 (two) times a week 120 mL 3 024 Active clobetasol (TEMOVATE) 0.05 % external solutionIndicatio ns:Seborrheic dermatitis Apply topically 2 (two) times a week 50 mL 3 024 Active baclofen (LIORESAL) 20 MG tabletIndications :Multiple sclerosis (HCC) Take 1 tablet (20 mg total) by mouth 3 (three) times a day 270 tablet 3 024 Active cholecalciferol (VITAMIN D-3) 50 MCG (1999 UT) tabletIndications :Vitamin D deficiency Take 1 tablet (2,000 Units total) by mouth per week 024 Active methenamine hippurate (Hiprex) 1 g tabletIndications :Recurrent UTI Take 1 tablet (1 g total) by mouth 2 (two) times a day 180 tablet 3 025 2025 Active Catheters miscIndications:N eurogenic bladder USE DIRECTED UP TO 4 TIMES PER DAY Coloplast-Ref [id number]-[id number] 120 each 12 025 Active polyethylene glycol (GLYCOLAX) 17 GM/SCOOP powderIndications :Constipation, unspecified constipation type Take 17 g by mouth 1 (one) time each day if needed (Constipation) 025 Active oxybutynin (DITROPAN) 5 MG tabletIndications :Detrusor instability TAKE ONE TABLET BY MOUTH TWICE A DAY 180 tablet 3 025 Active apixaban (ELIQUIS) 5 MG tabletIndications :Pulmonary embolism, unspecified chronicity, unspecified pulmonary embolism type, unspecified whether acute cor pulmonale present (HCC),Cerebrovasc ular accident (CVA), unspecified mechanism (HCC) Take 1 tablet (5 mg total) by mouth 2 (two) times a day 60 tablet 11 025 Active modafinil (Provigil) 200 MG tabletIndications :Other fatigue Take 1 tablet (200 mg total) by mouth 1 (one) time each day 30 tablet 5 025 2025 Active warfarin (COUMADIN) 2 MG tabletIndications :[facility] current use of anticoagulant,Oth er pulmonary embolism without acute cor pulmonale, unspecified chronicity (HCC) Take by mouth daily 2mg every Thur, Sat; 4mg all other days AND as directed by Anticoag based on INR 154 tablet 3 025 2024 Discontinued modafinil (Provigil) 100 MG tabletIndications :Other fatigue Take 1 tablet (100 mg total) by mouth 1 (one) time each day 30 tablet 5 025 2024 Discontinued Active Problems Problem Noted Date Diagnosed Date Nephrolithiasis 02/04/2025 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 0 12/02/2024 Assessment & Plan (12/02/2024 3:12 PM POLISHER BALANCE SCREWHEAD): - Experiencing cognitive decline, confusion, short-term memory [...] 08/25/2024 Assessment & Plan (12/02/2024 3:12 PM POLISHER BALANCE SCREWHEAD): History of urinary retention/ neurogenic bladder managed with intermittent self-catheterization, recurrent calcium oxalate stones, and recurrent UTI's, including recent bouts of Urosepsis (October 2022 [place]) and obstructing kidney stone and large bladder stone with Urosepsis again (October 2023 [facility]) and underwent ureteroscopy with ureteral stenting at that time. Repeat imaging ultrasound kidneys November 2023 no residual stone. Was on antibiotic prophylaxis in the past but not currently. Last urine culture was E. Coli resistant to Bactrim (Aug 2024). Was following with [facility] Urology in the past, but would like to establish [place] [facility] - Possibly exacerbated by stool incontinence - [...] 11/21/2023 Assessment & Plan (12/02/2024 3:12 PM POLISHER BALANCE SCREWHEAD): S/p resection large meningioma in November 2023. 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 Does not have Neurologist. Currently experiencing cognitive decline and confusion. 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 (HCC) 04/14/2025 Anticoagulation - Warfarin Visit Anticoagulation [address] [place] [address] Iliana Doyle RN [facility] current use of anticoagulant (Primary Dx); Other pulmonary embolism without acute cor pulmonale, unspecified chronicity (HCC) 04/07/2025 Telephone Family Medicine [address] [place] [address] 9[address] Wade Donovan MD 04/02/2025 Telephone [facility] [address] [place] [address] Kayleen Garcia MD Palliative Care Referral 04/02/2025 Orders Only Neurology [address] [place] [address] Maria Fernanda Campoverde MD Pulmonary embolism, unspecified chronicity, unspecified pulmonary embolism type, unspecified whether acute cor pulmonale present (HCC) (Primary Dx); Cerebrovascular accident (CVA), unspecified mechanism (HCC) 03/31/2025 2:40 PM CDT Patient Outreach SE Care Coordination [address] [place] [phone] Leah Badillo RN Counseling and coordination of care (Primary Dx); Multiple sclerosis (HCC); Moderate episode of recurrent major depressive disorder (HCC); Hyperlipidemia LDL goal <100 03/31/2025 Anticoagulation - Warfarin Visit Anticoagulation [address] [place] [address]55 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 Doyle RN 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 current use of anticoagulant (Primary Dx); Other pulmonary embolism without acute cor pulmonale, unspecified chronicity (HCC) 03/30/2025 Telephone Neurology [address] [place] [address] Maria Fernanda Campoverde MD medication information 03/30/2025 Telephone [facility] Condemnation Engineer [address] [place] [address] Alissa Garcia, [facility] Home Health 03/27/2025 Anticoagulation - Warfarin Visit Anticoagulation [address] [place] [address] Laurie Morales RN 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 current use of anticoagulant (Primary Dx) 03/27/2025 Telephone Neurology [address] [place] [address] 16479 Maria Fernanda Campoverde MD modafinil 100 MG tablet 03/24/2025 Telephone [place] [address] [address] Wade Donovan MD 03/24/2025 Telephone [place] [address] [address] Wade Donovan MD 03/23/2025 1:00 PM CDT Office Visit Neurology [address] [place] [address] Maria Fernanda Campoverde MD 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 (HCC) (Primary Dx); Multiple sclerosis (HCC); Meningioma (HCC); 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); Other fatigue 03/19/2025 2:40 PM CDT Office Visit [place] [address] [address] Wade Donovan MD Recurrent kidney stones (Primary Dx); 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); Arm weakness; Impaired range of motion of both shoulders; Pulmonary embolism, unspecified chronicity, unspecified pulmonary embolism type, unspecified whether acute cor pulmonale present (HCC); [facility] current use of anticoagulant 03/19/2025 Anticoagulation - Warfarin Visit Anticoagulation [address] [place] [address] Anna Betts RN 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 current use of anticoagulant (Primary Dx); Other pulmonary embolism without acute cor pulmonale, unspecified chronicity (HCC) 03/19/2025 Telephone [facility] [address] [address] Wade Donovan MD 03/19/2025 Telephone [facility] [address] [address] Wade Donovan MD PT Referral 03/09/2025 Anticoagulation - Warfarin Visit Anticoagulation [address] [place] [address]27 Iliana Doyle RN 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 current use of anticoagulant (Primary Dx); Other pulmonary embolism without acute cor pulmonale, unspecified chronicity (HCC) 03/09/2025 Telephone [facility] [address] [address] Wade Donovan MD [facility] Follow-up 03/05/2025 Telephone [facility] [address] [address] Wade Donovan MD DME for wheelchair repair 03/02/2025 8:40 AM CDT Patient Outreach SE Care Coordination [address] [place] [phone] Leah Badillo RN Counseling and coordination of care (Primary Dx); Multiple sclerosis (HCC); Moderate episode of recurrent major depressive disorder (HCC); Mixed hyperlipidemia 03/02/2025 Refill [facility] [address] [address] Wade Donovan MD Detrusor instability 02/24/2025 11:20 AM CDT Consult [facility] [address] [address] Wade Donovan MD Pre-op evaluation (Primary Dx); Nephrolithiasis; Constipation, unspecified constipation type 02/24/2025 11:00 AM CDT Lab [address] [address] Recurrent UTI 02/24/2025 Anticoagulation - Warfarin Visit Anticoagulation 210 [address] [address] 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 RN 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 current use of anticoagulant (Primary Dx); Other pulmonary embolism without acute cor pulmonale, unspecified chronicity (HCC) 02/12/2025 11:00 AM CDT Patient Outreach SE Care Coordination [address] [place] [address] Leah Badillo RN Counseling and coordination of care (Primary Dx); 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 (HCC); 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); Multiple sclerosis (HCC); Hyperlipidemia LDL goal <100; Moderate episode of recurrent major depressive disorder (HCC) 02/11/[address] [address] Wade Donovan MD Neurogenic bladder 02/10/2025 Anticoagulation - Warfarin Visit Anticoagulation [address] [place] [address] Anna Betts RN 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 current use of anticoagulant (Primary Dx); Other pulmonary embolism without acute cor pulmonale, unspecified chronicity (HCC) 02/03/2025 11:00 AM CDT Office Visit SE Ear Nose Throat [address] [place] [address] Selena Iraheta MD Facial mass (Primary Dx); Bilateral impacted cerumen; Left epiphora 01/28/2025 Anticoagulation - Warfarin Visit Anticoagulation [address] [place] [phone] Anna Betts RN [facility] current use of anticoagulant (Primary Dx); Other pulmonary embolism without acute cor pulmonale, unspecified chronicity (HCC) 01/26/2025 1:00 PM CDT Office Visit SE Nutrition Education [address] [place] [phone] Kidney stone (Primary Dx) from Last 3 Months Immunizations Immunization Administration Dates Next Due COVID-19, mRNA, LNP-S, [...] 13-Valent 08/27/2017 Pneumococcal Polysaccharide 08/06/2014 Tdap 02/26/2014,11/03/2002 Zoster Recombinant 11/27/2024 Family History Medical History Relation Comments defects [...] Never Smokeless Tobacco: Former Tobacco Cessation:Counseling Given: Not Answered Alcohol Use Standard Drinks/Week Comments No 0 (1 standard drink = 0.6 oz pur e alcohol) B1300 Health Literacy Answer Date Recor ded How often do you need to hav e someone help you when you read instructions, pamphlets, or other written material from your doctor or pharmacy? Always 11/25/2024 [employer] [facility] [employer] Answer Date Recorded In the past 12 months has e [employer], gas, oil, or water [employer] threatened to shut off services in your [...] How often do you attend chur or oriental orthodox services? 1 to 4 [...] Date Recorded PHQ-9 Total Score 0 02/24/2025 [facility] of Occupat ional Health - Occupational Stress [...] any time in the past 12 m [facility], were you homeless or living [...] 16 03/23/2025 12:58 PM CDT Oxygen Saturation 90% 03/19/2025 2:54 PM CDT Inhaled Oxygen Concentration - - Weight 87.1 kg (192 lb) 03/19/2025 2:54 PM CDT Height 185.4 cm (6' 1) 01/06/2025 1:36 PM CDT Body Mass Index 25.33 01/06/2025 1:36 PM CDT Plan of Treatment Upcoming Encounters Date Type Department Care Team (Late st Contact Info) Description 05/11/2025 4:00 PM CDT Office Visit SE [facility] [address] [place] [address] [phone] Kayleen Garcia MD [address] [place] [address] [phone] 05/12/2025 1:00 PM CDT Office Visit SE Ear Nose Throat [address] [place] [address] [phone] Darwin Moreau MD 210 [place] [phone] 05/21/2025 3:20 PM CDT Telemedicine [facility] Neurology [address] [place] [address] Maria Fernanda Campoverde MD 210 [place] [phone] 08/19/2025 2:30 PM POLISHER BALANCE SCREWHEAD Consult SE Endocrinology [address] [place] [address] Hazel Alvarez MBBS [address] [place] [address] [phone] 08/24/2025 8:20 AM POLISHER BALANCE SCREWHEAD Telemedicine [facility] Neurology [address], [place] [address] Maria Fernanda Campoverde MD 210 [place] [address] Health Maintenance Due Date Last Done Comments CT Colonography 1958 FIT-DNA 1958 Sigmoidoscopy 1960 iFOBT 1960 Pneumococcal Vaccine: 50+ Years (3 of 3 - PCV20 or PCV21) 08/27/2022 08/27/2017, 08/06/2014 DTaP,Tdap,and Td Vaccines (3 - Td or Tdap) 02/27/2024 02/26/2014, 11/03/2002 COVID-19 Vaccine ( season) 2024 09/09/2021, 12/29/2020, 12/08/2020 Influenza Vaccine (#1) 2025 , 06/24/2021, 07/12/2020, Additional history exists Colonoscopy 06/30/2025 09/30/2017, 09/02, 11/22/2016 Colorectal Cancer Screening 06/30/2025 Medicare Annual Wellness Visit (AWV) 11/25/2025 11/25/2024, 08/11/2019, 03/06/2018 Fall Risk Performed 03/19/2026 03/19/2025 Zoster Vaccines Completed 02/27/2025, 11/27/2024 HPV Vaccines Aged Out No longer eligi ble based on patient's age to complete this topic Goals Goal Patient Goal Type Associated Problems Recent Progress Patient-Stated? Author Routine Health Management General No Leah Badillo, RN Note: Routine Health Management Care Team Patient Care Team: Wade Donovan MD as PCP - General (Family Medicine) Leah Badillo, RN as Industrial Economics Teacher (Family Medicine) Healthcare Directives Future Scheduled Appointments Future Appointments Date Time Provider Department Center 04/22/2025 10:20 AM Maria Fernanda Campoverde MD [facility] 05/11/2025 4:00 PM Kayleen Garcia MD [facility] [place] [facility] 05/12/2025 1:00 PM [facility] 08/[facility]/2025 2:30 PM Hazel Alvarez MBBS SEEND[facility] Health Maintenance Health Maintenance Topic Date [...] impairment due to multiple sclerosis (HCC) [facility] [place]rology 03/23/25 Notes: Cardiovascular Management General On [...] LDLCALC 78 08/11/2024 TRIG 81 08/11/2024 [facility] Lab Results Component Value Date INR 2.80 (A) 03/31/2025 INR 3.60 (A) 03/27/2025 INR 2.20 (A) 03/19/2025 Warfarin dosing per [facility]tico[facility] Lifestyle management (diet and exercise) Notes: 04/02/25: going to be switching over to Eliquis from Coumadin. Having issues getting the rx. Nelia calling insurance Procedures Procedure Name Priority Date/Time Associated Diagnosis Comments PROTIME-INR Routine 03/31/2025 PROTIME-INR Routine 03/27/2025 PROTIME-INR Routine 03/19/2025 PROTIME-INR Routine 03/09/2025 PROTIME-INR Routine 03/08/2025 PROTIME-INR Routine 03/07/2025 PROTIME-INR Routine 03/06/2025 PROTIME-INR Routine 03/05/2025 PROTIME-INR Routine 03/04/2025 URINALYSIS-MICROSCOP IC EXAM (REFLEXED) Routine 02/24/2025 10:57 AM CDT Recurrent UTI URINALYSIS WITH REFLEX MICROSCOPIC Routine 02/24/2025 10:57 AM CDT Recurrent UTI PROTIME-INR Routine 02/23/2025 PROTIME-INR Routine 02/10/2025 PROTIME-INR Routine 01/27/2025 from Last 3 Months Results * (ABNORMAL) Protime-INR (03/31/2025) Only the most recent of12 resultswithin the time period is included. INR 2.80(A) 0.90 - 1.10 [facility] POINT OF CARE TESTING [facility]time [facility] Blood (Blood, Venous) us Mechelle Provider LAB BLOOD ORDERABLES Mini l Result HOME HEALTH POINT OF CARE TESTING * (ABNORMAL) Urinalysis-Microscopic Exam (02/24/2025 10:57 AM CDT) Casts, urine NONE SEEN 0-2 Hyaline /lpf 02/24/2025 7:31 PM T [facility] Significant casts, urine NONE SEEN None Seen /lpf 02/24/2025 7:31 PM [facility] RBC, Urine 21-50(A) 0 - 3 /hpf 02/24/2025 7:31 PM [facility] WBC, Urine 4-10(A) /hpf 02/24/2025 7:31 PM [facility] Comment: Male: 0-3/hpf Female: 0-10/hpf Squamous Epithelial, Urine NONE SEEN Few /lpf 02/24/2025 7:31 PM [facility] Trans Epithelial, Urine NONE SEEN 0 - 3 /hpf 02/24/2025 7:31 PM [facility] Renal Tubular Cells, Urine NONE SEEN 0 - 1 /hpf 02/24/2025 7:31 PM [facility] Bacteria, Urine 1+(A) None Seen - Few /hpf 02/24/2025 7:31 PM [facility] Urine Crystals SEE BELOW None Seen 02/24/2025 7:31 PM [facility] Comment: 1+ Calcium Oxalate Crystals Present. 02/24/2025 10:5 7 AM CDT 02/24/2025 5:36 PM CDT us Wade Donovan MD LAB URINE ORDERABLES Final R esult [facility] [address] [place] [address] * (ABNORMAL) Urinalysis with reflex microscopic (02/24/2025 10:57 AM CDT) Type CATH 02/24/2025 11:08 AM CDT [facility] [place] Color, Urine YELLOW YELLOW 02/24/2025 11:08 AM CDT [facility] [place] Clarity, Urine HAZY(A) CLEAR 02/24/2025 11:08 AM CDT [facility] [place] Glucose, Urine NEGATIVE NEGATIVE mg/dL 02/24/2025 11:08 AM CDT [facility] [place] Bilirubin, Urine NEGATIVE NEGATIVE 02/24/2025 11:08 AM CDT [facility] [place] Ketones, Urine NEGATIVE NEGATIVE mg/dL 02/24/2025 11:08 AM CDT [facility] [place] Specific [place], Urine >=1.030 1.000 ->=1.030 02/24/2025 11:08 AM CDT [facility] [place] Blood, Urine MODERATE(A) NEGATIVE 02/24/2025 11:08 AM CDT [facility] [place] pH, Urine 6.0 5.0 - 7.0 02/24/2025 11:08 AM CDT [facility] [place] Protein, Urine 30(A) NEGATIVE-TRA CE mg/dL 02/24/2025 11:08 AM CDT [facility] [place] Urobilinogen, Urine 0.2 0.2 - 1.0 E.U./dL 02/24/2025 11:08 AM CDT [facility] [place] Nitrite, Urine NEGATIVE NEGATIVE 02/24/2025 11:08 AM CDT [facility] [place] Leukocytes, Urine TRACE(A) NEGATIVE 02/24/2025 11:08 AM T [facility] [place] Urine (Urine, Catheter) 02/24/2025 10:57 AM CDT 02/24/2025 10:57 AM CDT us Wade Donovan MD LAB URINE ORDERABLES Final R esult [facility] [place] [address] [place] [address] from Last 3 Months Additional Health Concerns Infection Onset Date Last Indicated MSSA 08/02/2023 08/02/2023 Insurance MEDICARE [facility] Advance Directives For more information, please contact: [phone] Documents on File Type Date Recorded Patient Bone Glue Maker Expl anation POLST Order Form 11/14/2019 12:00 AM Care Teams Business Owner/Engineer Relationship Specialty Start Date End Date Wade Donovan MD [address] [place] [address] PCP - General Family Medicine 02/05/24
--- OUTSIDE RECORDS SUMMARY | 2025-04-27 17:27 | XMS_ITS | Encounter Summary ---
Author Organization [facility] Address [address] [place] [phone] Care Team Providers Care Bag Repairer Name Role Phone Elsewhere, Pcp Primary Care Provider Unavailabl e Encounter Details Date Type Department Care Team (Late st Contact Info) Description 03/24/2025 Clinical Communication Department of Urology in [place], [place] [address] [place] [phone] Bill Pacheco M.D. 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 - 03/27/2025 4:39 PM CDT Vasc med consult scheduled for 04/24 documented in this encounter Plan of Treatment Upcoming Encounters Date Type Department Care Team (Latest Contact Info) Description 05/01/2025 11:30 AM CDT Appointment Department of Laboratory Medicine in [address] [phone] Bill Pacheco M.D. [address] [place] [address] 05/01/2025 1:15 PM CDT Clinical Support Division of Allergic Diseases in [place], [place] [address] [place] [address] Simi Hart MPAS, P.A.-C. [address] [place] [phone] 05/01/2025 2:00 PM CDT Comprehensive Visit Division of Allergic Diseases in [place], [place] [address] [place] [phone] Darwin Martinez M.D., Ph.D. [address] [place] [phone] 05/15/2025 2:23 PM CDT Hospital Encounter [facility] Bed Planning Bill Pacheco M.D. [address] [place] [phone] 05/15/2025 2:23 PM CDT - 05/15/2025 4:26 PM CDT Surgery [facility] [address] [place] [address] Bill Pacheco M.D. [address] [place] [phone] URETEROSCOPY WITH LASER LITHOTRIPSY,WITH CALYXO, PROCEED INDICATED Scheduled Orders Name Type Priority Associated Diagnoses Orde r Schedule Bacterial Culture, Aerobic + Susceptibility, Urine Microbiology Routine Nephrolithiasis Expected: 05/01/2025, Expires: 06/30/2026 Scheduled Procedures Name Priority Associated Diagnoses Date/Ti me URETEROSCOPY WITH LASER LITHOTRIPSY Nephrolithiasis 05/15/2025 2:23 PM CDT EXCHANGE URETERAL STENT Nephrolithiasis 05/15/2025 2:23 PM CDT documented as of this encounter Visit Diagnoses Diagnosis Nephrolithiasis- Primary Nephrolithiasis- Primary Nephrolithiasis documented in this encounter Care Teams Bag Repairer Relationship Specialty Start Date End Date Elsewhere, Pcp PCP - General Family Medicine 09/06/17 documented as of this encounter
--- OUTSIDE RECORDS SUMMARY | 2025-04-27 17:28 | XMS_ITS | Encounter Summary ---
Author Organization [facility] er Address [address] [place] [address] Care Team Providers Care Pain Management Nurse Practitioner Name Role Phone Wade Donovan MD Primary Care Provider [phone] Encounter Details Date Type Department Care Team (Late st Contact Info) Description 09/02/2019 Telephone [place] [address] [place] [address] Adarsh Carpenter MD Social History Tobacco Use [...] Family Three times a week 08/11/2019 Attends Temple Services Never 08/11 Active Member of Clubs [...] Answer Date Recorded PHQ-2 Score 9 08/11/2019 [facility] of [facility] - Occupational Stress [...] [facility] [address] [place], [place] [phone] Kayleen Garcia MD [address] [place], [place] [phone] 05/12/2025 1:00 PM CDT Office Visit [facility] [address] [place], [place] [phone] Darwin Moreau MD 210 [facility] [place] [phone] 05/21/2025 3:20 PM CDT [facility] [address] [place], [place] [phone] Maria Fernanda Campoverde MD 210 [place] [phone] 08/19/2025 2:30 PM PUBLIC HEALTH WORKER Consult [facility] [address] [place], [place] [address] Hazel Alvarez MBBS [address] [place] [phone] 08/24/2025 8:20 AM PUBLIC HEALTH WORKER [facility] [address] [place] [address] Maria Fernanda Campoverde MD 210 [place] [phone] documented as of this encounter Visit Diagnoses Not on filedocumented in this encounter Additional Health Concerns Infection Onset Date Last Indicated Resolved Time MSSA 10/04/2018 10/04/2018 06/28/2022 8:27 AM CDT MSSA 06/19/2023 07/04/2023 07/17/2023 2:29 PM CDT MSSA 08/02/2023 08/02/2023 documented as of this encounter Care Teams Pain Management Nurse Practitioner Relationship Specialty Start Date End Date Wade Donovan MD [address] [place] [address] PCP - General Family Medicine 02/05/24 documented as of this encounter
--- OUTSIDE RECORDS SUMMARY | 2025-04-27 17:28 | XMS_ITS | Clinical Summary ---
Author Organization [facility] Address [address] [place] [id number] Care Team Providers Care Industrial Economics Teacher Name Role Phone Hang Carpenter Primary Care [...] times daily. 180 Tablet 11/22/2023 12:05 PM STONE SANDBLASTER 4 Active warfarin (COUMADIN) 2 mg tabletIndication [...] on file Legal Sex Male 2:56 PM STONE SANDBLASTER Gender Identity Not on file Sexual Orientation Not on file Obstetrics History Last Filed Vital Signs Vital Sign Reading Time Taken Comments Blood Pressure 118/82 12/04/2023 1:30 PM STONE SANDBLASTER Pulse 108 03/17/2024 1:02 PM CDT Temperature 36.6 C (97.9 F) 03/17/2024 1:02 PM CDT Respiratory Rate 17 03/17/2024 1:02 PM CDT Oxygen Saturation 96% 03/17/2024 1:02 PM CDT Inhaled Oxygen Concentration - - Weight 86.2 kg (190 lb) 11/20/2023 6:47 AM STONE SANDBLASTER Height 182.9 cm (6') 11/20/2023 6:47 AM STONE SANDBLASTER Body Mass Index 25.77 11/20/2023 6:47 AM STONE SANDBLASTER Plan of Treatment Health Maintenance Due Date Last Done Comments Tetanus booster 1969 Depression screening for age 12+ 1970 Hepatitis C screening for ag e 18-79 1976 Colonoscopy through age 75 2003 Lipids for age 45-75 2003 Pneumococcal series for age 50+ (1 of 1 - PCV) 2008 Zoster (shingles) series for age 50+ (1 of 2) 2008 BMI (ht and wt on same day) for age 18+ 02/12/2019 02/12/2018 Medicare Wellness for age 65+ 2023 COVID-19 vaccine series ( season) 2024 09/09/2021, 12/29/2020, 12/08/2020 Influenza Vaccine (#1) 2025 RSV vaccine for adults or (1 - 1-dose 75+ series) 2033 Hepatitis B series for 19+ Aged Out N o longer eligible based on patient's age to complete this topic Medical Devices Implanted Type Area Photographic Reproduction Technician Device Identifier Shelf Expiration Date Model / Serial / Lot Stent Uret [id number] Percuflex Hydroplus - [id number] Implanted:Qty: 1 on 03/04/2018 by Jordi Piedra MD at [facility] Right: Ureter [facility] 07/29/2020 [id number]# / / [id number] Stent Uret [id number] Percuflex Hydroplus - [id number] Implanted:Qty: 1 on 08/01/2019 by Jordi Piedra MD at [facility] Right: Ureter [facility] 02/23/2022 [id number]# / / [id number] Stent Uret [id number] Percuflex Hydroplus - [id number] Implanted:Qty: 1 on 10/16/2023 by Osito Pate MD at [facility] Right: Ureter [facility] 03/23/2026 [id number] / / [id number] Dura Neuro 2x2in Duragen Plusnon-Sut - [id number] Implanted:Qty: 1 on 11/20/2023 by Jevon Trejo MD at [facility] Cranium Integra [employer]is[employer]pt[employer] Sigifredo 06/30/2026 [id number] / / [id number] Screw Neuro 4mm Matrixneuro Slf Drill Titnm - [id number] Implanted:Qty: 6 on 11/20/2023 by Jevon Trejo MD at [facility] Cranium J And J Depuy CMF [id number] 4.01 / / Plate Facial 70x1.5mm Synthes Midface Mesh Contourable - [id number] Implanted:Qty: 1 on 11/20/2023 by Jevon Trejo MD at [facility] Cranium J And J Depuy [facility] [id number] / / Insurance MEDICARE PART B HB ONLY MEDICARE PART A HB ONLY MEDICARE PB ONLY [facility] Advance Directives * Full Code [...] 5:50 AM 03/04/2018 1:54 PM Care Teams Industrial Economics Teacher Relationship Specialty Start Date End Date Hang Carpenter PCP - General Family Practice 09/01/15
--- OUTSIDE RECORDS SUMMARY | 2025-04-27 17:28 | XMS_ITS | Encounter Summary ---
Author Organization [facility] er Address [address] [place] [address] Care Team Providers Care Rubber And Plastics Worker Name Role Phone Wade Donovan MD Primary Care Provider [phone] Reason for Visit * Reason Onset Date Comments Med Refill 06/03/2020 Encounter Details Date Type Department Care Team (Late st Contact Info) Description 06/03/2020 Refill [place] [address] [place] [address] Adarsh Carpenter MD Other pulmonary embolism without [...] Family Three times a week 08/11/2019 Attends [employer] Services Never 08/11 Active Member of Clubs [...] Answer Date Recorded PHQ-2 Score 0 01/19/2020 [facility] [place] of Occupat ional Health - Occupational Stress [...] Office Visit [facility] [address] [place] [address] Kayleen Garcia MD [address] [place] [address] 05/12/2025 1:00 PM CDT Office Visit [facility] [address] [place] [address] Darwin Moreau MD [address] [place] [phone] 05/21/2025 3:20 PM CDT [facility] [address] [place] [phone] Maria Fernanda Campoverde MD [address] [place] [phone] 08/19/2025 2:30 PM PLUNGER SCOOP OPERATOR Consult [facility] [address] [place] [phone] Hazel Alvarez MBBS [address] [place] [phone] 08/24/2025 8:20 AM PLUNGER SCOOP OPERATOR [facility] [address] [place] [address] Maria Fernanda Campoverde MD [address] [place] [phone] documented as of this encounter Visit Diagnoses Diagnosis Other pulmonary embolism without acute cor pulmonale, unspecified chronicity (HCC) documented in this encounter Additional Health Concerns Infection Onset Date Last Indicated Resolved Time MSSA 10/04/2018 10/04/2018 06/28/2022 8:27 AM CDT MSSA 06/19/2023 07/04/2023 07/17/2023 2:29 PM CDT MSSA 08/02/2023 08/02/2023 documented as of this encounter Care Teams Rubber And Plastics Worker Relationship Specialty Start Date End Date Wade Donovan MD [address] [place] [address] PCP - General Family Medicine 02/05/24 documented as of this encounter
--- OUTSIDE RECORDS SUMMARY | 2025-04-27 17:28 | XMS_ITS | Encounter Summary ---
Author Organization [facility] er Address [address] [place] [address] Care Team Providers Care Repair Supervisor Name Role Phone Wade Donovan MD Primary Care Provider [phone] Encounter Details Date Type Department Care Team (Late st Contact Info) Description 07/28/2020 Telephone [place] [address] [place] [address] Adarsh Carpenter MD Social History Tobacco Use [...] Family Three times a week 08/11/2019 Attends Scientologist Services Never 08/11 Active Member of Clubs [...] Date Recorded PHQ-9 Total Score 0 07/23/2020 [facility] [place] of Occupat ional Health - Occupational Stress [...] [facility] [address] [place], [place] [phone] Kayleen Garcia MD [address] [place], [place] [phone] 05/12/2025 1:00 PM CDT Office Visit [facility] [address] [place], [place] [phone] Darwin Moreau MD 210 [facility] [place] [phone] 05/21/2025 3:20 PM CDT [facility] [address] [place], [place] [phone] Maria Fernanda Campoverde MD 210 [facility] [place] [phone] 08/19/2025 2:30 PM CLINICAL HAEMATOLOGIST Consult [facility] [address] [place], [place] [phone] Hazel Alvarez MBBS [address] [place] [address] 08/24/2025 8:20 AM CLINICAL HAEMATOLOGIST [facility] [address] [place] [phone] Maria Fernanda Campoverde MD 210 [place] [phone] documented as of this encounter Visit Diagnoses Not on filedocumented in this encounter Additional Health Concerns Infection Onset Date Last Indicated Resolved Time MSSA 10/04/2018 10/04/2018 06/28/2022 8:27 AM CDT [facility] 06/19/2023 07/04/2023 07/17/2023 2:29 PM CDT MSSA 08/02/2023 08/02/2023 documented as of this encounter Care Teams Repair Supervisor Relationship Specialty Start Date End Date Wade Donovan MD [address] [place] [address] PCP - General Family Medicine 02/05/24 documented as of this encounter
--- OUTSIDE RECORDS SUMMARY | 2025-04-27 17:28 | XMS_ITS | Clinical Summary ---
Author Organization [facility] Address [address] [place] [id number] Care Team Providers Care Audio Tape Librarian Name Role Phone Elsewhere, Pcp Primary Care Provider Unavailabl e Source Comments Patient records contain information from all sites at [facility]. For routine questions regarding patient records, call [phone] during business hours, M-F 8:00 AM - 5:00 PM Central Time. Record requests for emergency care only can be directed to [phone] at any time.[facility] Allergies Active Allergy Reactions Criticality Noted Date Comments Bee Venom Protein (Honey Bee) Other (see comments) High 10/12/2004 No reaction noted Penicillins Other (see comments) High 11/22/2016 Delirium, questionable anaphylactic reaction Other reaction(s): *Unknown - Pt Doesn't Remember, Other (see comments) Product containing penicillin (product) Venom-Honey Bee Angioedema High 02/28/2018 Medications oxyBUTYnin (Ditropan) 5 mg tablet Take 1 tablet by mouth 2 (two) times a day. 4 Active sennosides 25 mg tablet Take 25 mg by mouth daily. 0 Active olopatadine (Pataday) 0.2 % ophthalmic solution Administer 1 drop into affected eye(s) daily. Active methenamine (Hiprex) 1 gram tablet Take 1 g by mouth 2 (two) times a day. 5 12/03/19 26 Active ketoconazole (Nizoral) 2 % shampoo Apply 1 Application topically as needed for dandruff. 4 Active cholecalcifero l (Vitamin D3) 50 mcg (2,000 Unit) tablet Take 2,000 Units by mouth once a week. 4 Active baclofen (LioresaL) 20 mg tablet Take 1 tablet by mouth 3 (three) times a day. 4 Active atorvastatin (Lipitor) 20 mg tablet Take 1 tablet by mouth at bedtime. 3 Active acetaminophen (TylenoL) 500 mg tablet Take 2 tablets (1,000 mg total) by mouth every 6 (six) hours as needed for pain or fever. First line medication for pain. Do not exceed 4,000 mg of acetaminophen in a day from all sources. 5 Active warfarin (Jantoven) 2 mg tablet Take warfarin 2 mg by mouth daily. This is a dose reduction from your usual home dose since the antibiotics you were prescribed after surgery can make you more sensitive to the effects of warfarin. Please follow-up with managing provider and check INR on Sunday03/09/2025 if possible. 5 Active Additional Information Patient not taking.Reported on 04/24/2025 apixaban (Eliquis) 5 mg tablet Take 5 mg by mouth 2 (two) times a day. 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 Anticoagulant Therapy (Primary Dx); Embolus Pulmonary Personal History 04/24/2025 8:00 AM CDT - 04/24/2025 11:59 PM CDT Hospital Encounter Department of Laboratory Medicine and Pathology, [facility] in [place], [place] [address] [place] [phone] Marcos Watkins M.D. Embolus Pulmonary Personal History Discharge Disposition: Home or Self Care 04/24/2025 Clinical Communication Department of Urology in [place], [place] [address] [place] [phone] Bill Pacheco M.D. 03/27/2025 Orders Only Department of Urology in [place], [place] [address] [place] [phone] Marcos Watkins M.D. Embolus Pulmonary Personal History (Primary Dx) 03/26/2025 6:30 PM CDT - 03/27/2025 1:11 AM CDT Emergency [facility] Emergency Department [address] [place] [phone] Donta Shepard M.D. Hematuria (Primary Dx) Discharge Disposition: Home or Self Care 03/26/2025 Nurse Triage Department of Family Medicine, [address] [phone] Lizzette Mari R.N. Urinary Problem 03/24/2025 8:00 AM CDT Virtual Visit Department of Urology in [place], [place] [address] [place] [phone] Bill Pacheco M.D. 03/24/2025 Community Orders [facility] [address] [place] [phone] Maria Fernanda Campoverde M.D., Ph.D. Multiple Sclerosis (HCC) (Primary Dx); Paraparesis Spastic (HCC) 03/24/2025 Clinical Communication Department of Urology in [place], [place] [address] [place] [phone] Bill Pacheco M.D. 03/23/2025 8:53 AM CDT - 03/23/2025 11:59 PM CDT Hospital Encounter Department of Radiology in [address] [phone] Carroll Johnson M.D. Nephrolithiasis Discharge Disposition: Home or Self Care 03/09/2025 Clinical Communication Department of Urology in [place], [place] [address] [place] [phone] Kyree Jesus 03/06/2025 1:17 PM CDT Anesthesia Event [facility] OR [address] [place] [address] Holli Genao M.D., M.H.A. Estrellita Rodriguez 03/06/2025 12:19 PM CDT - 03/06/2025 2:33 PM CDT Surgery [facility] OR [address] [place] [phone] Bill Pacheco M.D. URETEROSCOPY WITH LASER LITHOTRIPSY WITH CALYXO. 03/05/2025 Orders Only Department of Urology in [place], [place] [address] [place] [phone] Dejan Talamantes M.B., B.Ch. 03/04/2025 1:23 PM CDT - 03/08/2025 5:30 PM CDT Hospital Encounter [facility], Ninth Floor [address] [place] [address] Bill Pacheco M.D. Nephrolithiasis Discharge Disposition: Home or Self Care 02/04/2025 11:30 AM CDT Comprehensive Visit Department of Urology in [place], [place] [address] [place] [address] Bill Pacheco M.D. Nephrolithiasis 02/04/2025 9:12 AM CDT - 02/04/2025 11:59 PM CDT Hospital Encounter Department of Laboratory Medicine and Pathology, [facility], in [place], [place] [address] [place] [phone] Bill Pacheco M.D. Stone Kidney Discharge Disposition: Home or Self Care 02/04/2025 9:10 AM CDT - 02/04/2025 9:11 AM CDT Hospital Encounter Department of Laboratory Medicine and Pathology, [facility] in [place], [place] [address] [place] [phone] Bill Pacheco M.D. Stone Kidney Discharge Disposition: Home or Self Care 02/04/2025 Orders Only Preoperative Evaluation Center in [address] [phone] Simi Hart MPAS, P.A.-C. Allergy Penicillin Antibiotic Personal History (Primary Dx) 02/04/2025 Clinical Communication Department of Urology in [place], [place] [address] [place] [phone] Bill Pacheco M.D. 02/03/2025 9:30 AM CDT Clinical Communication Virtual Review in [place], [place] 200 [place] [address] Pre-visit Intake from Last 3 Months Immunizations Immunization Administration Dates Next Due Influenza Split 11/03/2009 Influenza, Unspecified 07/11/2016,07/29/2015 SARS-COV-2 (COVID-19) - PFIZ ER (Discontinued)(12 years or older) 12/29/2020,12/08/2020 Tdap 11/03/2002 influenza trivalent high dose (HD)(PF) 7 Family History Medical History Relation Name Comments Coronary artery disease Father Aaron Hinds Hypertension Mother Cornell Hinds Relation Name Status Comments Father Aaron Hinds Mother Cornell Hinds Social History Tobacco Use Types Packs/Day Years Used Date Smoking Tobacco: Former Cigarettes Passive Smoke Exposure: Current Smokeless Tobacco: Former Chew Tobacco Cessation:Counseling Given: Not Answered Alcohol Use Standard Drinks/Week Comments No 0 (1 standard drink = 0.6 oz pur e alcohol) [facility] Utilities Answer Date Recorded In [...] your living situation today? I have a [facility] place to live 03/05/2025 Education Answer Date Recorded What is the highest level of school you have completed or the highest degree you have received? 12th grade 08/26/2019 Sex and Gender Information Value Date Recorded Sex Assigned at Not on file Legal Sex Male 4:48 AM [employer] Gender Identity Not on file Sexual Orientation Not on file Last Filed Vital Signs Vital Sign Reading Time Taken Comments Blood Pressure 106/74 04/24/2025 9:58 AM CDT Pulse 109 04/24/2025 9:58 AM CDT Temperature 36.5 C (97.7 F) 03/27/2025 1:00 AM CDT Respiratory Rate 15 03/27/2025 1:00 AM CDT Oxygen Saturation 93% 03/27/2025 1:00 AM CDT Inhaled Oxygen Concentration - - Weight 86.2 kg (190 lb) 03/26/2025 9:31 PM CDT Height 182.9 cm (6') 03/26/2025 9:31 PM CDT Body Mass Index 25.77 03/26/2025 9:31 PM CDT Plan of Treatment Upcoming Encounters Date Type Department Care Team (Latest Contact Info) Description 05/01/2025 11:30 AM CDT Appointment Department of Laboratory Medicine in [address] [phone] Bill Pacheco M.D. [address] [place] [phone] 05/01/2025 1:15 PM CDT Clinical Support Division of Allergic Diseases in [place], [place] [address] [place] [phone] Simi Hart, [facility], [facility]. [address] [place] [phone] 05/01/2025 2:00 PM CDT Comprehensive Visit Division of Allergic Diseases in [place], [place] [address] [place] [phone] Darwin Martinez M.D., Ph.D. [address] [place] [phone] 05/15/2025 2:23 PM CDT Hospital Encounter [facility] Bed Planning Bill Pacheco M.D. [address] [place] [phone] 05/15/2025 2:23 PM CDT - 05/15/2025 4:26 PM CDT Surgery [facility] [address] [place] [phone] Bill Pacheco M.D. [address] [place] [phone] URETEROSCOPY WITH LASER LITHOTRIPSY,WITH CALYXO, PROCEED INDICATED Scheduled Procedures Name Priority Associated Diagnoses Date/Ti me URETEROSCOPY WITH LASER LITHOTRIPSY Nephrolithiasis 05/15/2025 2:23 PM CDT EXCHANGE URETERAL STENT Nephrolithiasis 05/15/2025 2:23 PM CDT Health Maintenance Due Date Last Done Comments CT Colonography 1960 Cologuard 1960 Depression Monitoring (PHQ-9) 1960 Hepatitis C Screening 1960 RSV vaccine - (32-36 weeks) or 60+ years (1 - Risk 60-74 years 1-dose series) 2018 Colonoscopy 11/22/2021 11/22/2016, 01/2009 (Performed elsewhere) Colorectal Cancer Surveillance 11/22/2021 Pneumococcal vaccine (50+ years) (3 of 3 - PCV20 or PCV21) 08/27/2022 08/27/2017, 08/06/2014 DTaP,Tdap,and Td Vaccines (4 - Td or Tdap) 02/27/2024 02/26/2014, 04/21/2007, 11/03/2002 COVID-19 Vaccine (4 - season) 2024 09/09/2021, 12/29/2020, 12/08/2020 Depression Monitoring (PHQ-9 for quality tracking) 10/01/2024 Fall Risk Screen (Annual) 10/01/2024 Influenza Vaccine (#1) 2025 2, 06/24/2021, 07/12/2020, Additional history exists Fasting Glucose for Diabetes Screening 04/24/2028 04/24/2025, 03/26/2025, 03/08/2025, Additional history exists Zoster Vaccines Completed 02/27/2025, 11/27/2024 Abdominal Aortic Aneurysm (AAA) Screen Completed 03/26/2025, 03/23/2025, 03/07/2025, Additional history exists IPV Vaccines Aged Out No longer eligi ble based on patient's age to complete this topic Goals Goal Patient Goal Type Associated Problems Recent Progress Patient-Stated? Author Autogenerat ed Goal Care Plan Autogenerated Problem No Cherelle Vidhya [place] [employer] Devices Implanted Type Area Curriculum And Instruction Specialist Device Identifier Shelf Expiration Date Model / Serial / Lot Hardware E.G. Pins/Screws/Madi s-Arm Hardware e.g. pins/screws /rods Right: Arm Synthes Nail-[place] Lock 4.9x 32 - [place] [id number] Implanted:Qty: 2 on 10/12/2000 Hardware e.g. pins/screws /rods Depuy Synthes Description:Device Manufactu rer - Synthes. Device Status Text - [id number]. Synthes Nail-[place] Lock 4.9x 36 - [place] [id number] Implanted:Qty: 1 on 10/12/2000 Hardware e.g. pins/screws /rods Depuy Synthes Description:Device Manufactu rer - Synthes. Device Status Text - [id number]. Synthes Nail-Can Tib Ti [id number] - [place] [id number] Implanted:Qty: 1 on 10/12/2000 Hardware e.g. pins/screws /rods Depuy Synthes Description:Device Manufactu rer - Synthes. Device Status Text - [id number]. Synthes Nail-[place] Lock 4.9x 50 - [place] [id number] Implanted:Qty: 1 on 10/12/2000 Hardware e.g. pins/screws /rods Depuy Synthes Description:Device Manufactu rer - Synthes. Device Status Text - [id number]. Synthes Nail-[place] Lock 4.9x 40 - [place] [id number] Implanted:Qty: 1 on 10/12/2000 Hardware e.g. pins/screws /rods Depuy Synthes Description:Device Manufactu rer - Synthes. Device Status Text - [id number]. Stnt Uret W/O Gw Tria 6fx26 - [id number] Implanted:Qty: 1 on 03/06/2025 by Leta Stack M.D. at [facility] Ureteral Stent Right: Ureter [employer] [id number] 11/25/2027 [id number] / / [id number] Explanted Type Area Curriculum And Instruction Specialist Device Identifier Shelf Expiration Date Model / Serial / Lot Biomet-Screw Luz Maria Part Thrd 4.0x46m - [place] [id number] Implanted:Qty: 1 on 06/11/2002 Hardware e.g. pins/screws/ rods Left: Foot BioMet Description:Device Manufactu rer - [employer] Device Status Text - [id number]. Procedures Procedure Name Priority Date/Time Associated Diagnosis Comments ACTIVATED PARTIAL THROMBOPLASTIN TIME (APTT), P Routine 04/24/2025 8:37 AM CDT Embolus Pulmonary Personal History PROTHROMBIN TIME (PT), P Routine 04/24/2025 8:37 AM CDT Embolus Pulmonary Personal History CBC WITH DIFFERENTIAL, B Routine 04/24/2025 8:37 AM CDT Embolus Pulmonary Personal History COMPREHENSIVE METABOLIC PANEL, S/P Routine 04/24/2025 8:36 AM CDT Embolus Pulmonary Personal History CT ABDOMEN PELVIS WITH IV CONTRAST RAD - Semiurgent (Fast; most ED patients; some inpatients) 03/26/2025 11:[address], U STAT 03/26/2025 10:20 PM CDT TROPONIN T, 2H/6H REFLEX, 5TH GEN, P Timed 03/26/2025 9:39 PM CDT PROTHROMBIN TIME (PT), P STAT 03/26/2025 6:55 PM CDT TROPONIN T, BASELINE, 5TH GEN, P STAT 03/26/2025 6:55 PM CDT CBC WITH DIFFERENTIAL, B STAT 03/26/2025 6:55 PM CDT BASIC METABOLIC PANEL, S/P STAT 03/26/2025 6:55 PM CDT ECG Routine 03/26/2025 6:48 PM CDT DIPSTICK, U STAT 03/26/2025 6:44 PM CDT PH, RANDOM, U STAT 03/26/2025 6:44 PM CDT HC OSMOLALITY ASSAY URINE STAT 03/26/2025 6:44 PM CDT MICROSCOPIC MANUAL STAT 03/26/2025 6: 44 PM CDT URINALYSIS WITH MICROSCOPIC STAT 03/26/2025 6:44 PM CDT BACTERIAL CULTURE, AEROBIC + SUSC, URINE STAT 03/26/2025 6:[address] ABDOMEN PELVIS WITHOUT IV CONTRAST RAD - Routine (most inpatients and all outpatients) 03/23/2025 9:21 AM CDT Nephrolithiasis PATIENT STATUS Timed 03/08/2025 10:53 AM CDT VENOUS BLOOD GAS W/O COOX Timed 03/08/2025 10:53 AM CDT BASIC METABOLIC PANEL, S/P Routine 03/08/2025 3:23 AM CDT CBC WITH DIFFERENTIAL, B Routine 03/08/2025 3:23 AM CDT PROTHROMBIN TIME (PT), P Routine 03/08/2025 3:23 AM CDT MAGNESIUM, S Timed 03/07/2025 2:49 PM CDT BASIC METABOLIC PANEL, S/P Timed 03/07/2025 2:49 PM CDT ECG Routine 03/07/2025 11:[address] ABDOMEN PELVIS WITHOUT IV CONTRAST RAD - Routine (most inpatients and all outpatients) 03/07/2025 8:10 AM CDT PULSE OXIMETRY WITH REMOTE OVERVIEW Routine 03/07/2025 8:01 AM CDT ADULT OXYGEN THERAPY Routine 03/07/2025 8:01 AM CDT PROTHROMBIN TIME (PT), P Routine 03/07/2025 2:41 AM CDT PULSE OXIMETRY WITH REMOTE OVERVIEW Routine 03/06/2025 8:01 PM CDT ADULT OXYGEN THERAPY Routine 03/06/2025 8:01 PM CDT PULSE OXIMETRY WITH REMOTE OVERVIEW Routine 03/06/2025 6:38 PM CDT PULSE OXIMETRY WITH REMOTE OVERVIEW Routine 03/06/2025 6:38 PM CDT PULSE OXIMETRY WITH REMOTE OVERVIEW Routine 03/06/2025 4:34 PM CDT ADULT OXYGEN THERAPY Routine 03/06/2025 4:34 PM CDT FL FLUORO LESS THAN 1 HOUR RAD - Routine (most inpatients and all outpatients) 03/06/2025 4:21 PM CDT KIDNEY STONE ANALYSIS Routine 03/06/2025 3:53 PM CDT Nephrolithiasis MYCOBACTERIAL CULTURE, V Routine 03/06/2025 3:51 PM CDT UREAPLASMA PCR Routine 03/06/2025 3:51 PM CDT Nephrolithiasis MYCOPLASMA HOMINIS PCR Routine 03/06/2025 3:51 PM CDT Nephrolithiasis BACTERIAL CULTURE, AEROBIC + SUSC Routine 03/06/2025 3:51 PM CDT Nephrolithiasis FUNGAL SMEAR Routine 03/06/2025 3:51 PM CDT Nephrolithiasis ACID FAST SMEAR FOR MYCOBACTERIUM Routine 03/06/2025 3:51 PM CDT Nephrolithiasis GRAM STAIN Routine 03/06/2025 3:51 PM CDT Nephrolithiasis FUNGAL CULTURE, ROUTINE Routine 03/06/2025 3:51 PM CDT Nephrolithiasis LDA ANE ARTERIAL LINE INSERTION Routine 03/06/2025 1:55 PM CDT NH ARTL CATH/CNULA MONITOR PERC Routine 03/06/2025 1:55 PM CDT TYPE AND SCREEN Routine 03/06/2025 1:41 PM CDT LDA ANE ENDOTRACHEAL AIRWAY Routine 03/06/2025 1:32 PM CDT CYSTOSCOPY INSERTION STENT URETER 03/06/2025 12:57 PM CDT Nephrolithiasis URETEROSCOPY WITH LASER LITHOTRIPSY 03/06/2025 12:57 PM CDT Nephrolithiasis ADULT OXYGEN THERAPY Routine 03/06/2025 8:01 AM CDT PROTHROMBIN TIME (PT), P Timed 03/06/2025 3:33 AM CDT VANCOMYCIN, TROUGH, S Timed 03/06/2025 3:33 AM CDT ADULT OXYGEN THERAPY Routine 03/05/2025 8:01 PM CDT ADULT OXYGEN THERAPY Routine 03/05/2025 8:01 AM CDT PROTHROMBIN TIME (PT), P Routine 03/05/2025 3:19 AM CDT ADULT OXYGEN THERAPY Routine 03/04/2025 8:01 PM CDT PROTHROMBIN TIME (PT), P STAT 03/04/2025 2:02 PM CDT ADULT OXYGEN THERAPY Routine 03/04/2025 1:37 PM CDT ADULT OXYGEN THERAPY Routine 03/04/2025 1:37 PM CDT ADULT OXYGEN THERAPY Routine 03/04/2025 1:37 PM CDT MICROSCOPIC MANUAL Routine 02/04/2025 9: 52 AM CDT DIPSTICK, U Routine 02/04/2025 9:52 AM CDT PH, U Routine 02/04/2025 9:52 AM CDT OSMOLALITY, U Routine 02/04/2025 9:52 AM CDT URINALYSIS WITH MICROSCOPIC Routine 02/04/2025 9:52 AM CDT Stone Kidney BACTERIAL CULTURE, AEROBIC + SUSC, URINE Routine 02/04/2025 9:52 AM CDT Stone Kidney BASIC METABOLIC PANEL, S/P Routine 02/04/2025 9:38 AM CDT Stone Kidney from Last 3 Months Results * APTT (Activated Partial Thromboplastin Time) (04/24/2025 8:37 AM CDT) Activated Partial Thrombopl Time, P 33 25 - 37 sec 04/24/2025 9:30 AM CDT DTL Blood (Blood, Venous) 04/24/2025 8:37 AM CDT 04/24/2025 9:03 AM CDT Marcos Watkins M.D. LAB BLOOD ADD-ON Final Re sult [place] [address] [place] [address], [facility] DTFormerly named [facility] [address] [place] [address] * (ABNORMAL) Prothrombin Time (PT) (04/24/2025 8:37 AM CDT) Only the most recent of7 resultswithin the time period is included. Prothrombin Time, P 14.3(H) 9.4 - 12.5 sec 04/24/2025 9:30 AM CDT DTL INR 1.3 0.9 - 1.1 04/24/2025 9:30 AM CDT DTL Comment: ----ADDITIONAL INFORMATION---- Standard intensity warfarin therapeutic range: 2.0 to 3.0 High intensity warfarin therapeutic range: 2.5 to 3.5 Blood (Blood, Venous) 04/24/2025 8:37 AM CDT 04/24/2025 9:03 AM CDT us Marcos Watkins M.D. LAB BLOOD ADD-ON Final Re sult [facility] [address] [place] [address], [facility] DTL [facility] [address] [place] [address] * (ABNORMAL) CBC with Differential, Blood (04/24/2025 8:37 AM CDT) Only the most recent of3 resultswithin the time period is included. Hemoglobin 14.3 13.2 - 16.6 g/dL 04/24/2025 [...] M.D. LAB BLOOD ADD-ON Final Re sult [facility] [address] [place] [address], [facility] DTL [facility] [address] [place] [address] [facility] [address] [place] [address] * (ABNORMAL) Comprehensive Metabolic Panel (04/24/2025 8:36 AM CDT) Pathologist [facility] Potassium, S 4.5 3.6 - 5.2 mmol/L [...] M.D. LAB BLOOD ADD-ON Final Re sult [facility] [address] [place] [address], [facility] DTL [facility] [address] [place] [address] * CT Abdomen Pelvis with IV Contrast [...] a previous 3 mm left renal stone. Donta Shepard M.D. IMG CT PROCEDURES Final Res ult * (ABNORMAL) Gram Stain, Urine (03/26/2025 10:20 PM CDT) Source ?Fluid, Urine, Midstream 03/26/2025 10:20 PM CDT DTL Gram Stain, U Positive(A) Negative 03/26/2025 10:34 PM CDT DTL Comment:Many Gram-positive b acilli Urine 03/26/2025 10:2 0 PM CDT 03/26/2025 10:20 PM CDT us Donta Shepard M.D. LAB URINE ORDERABLES Final Result Performing Organization Address City/[facility]/ZIP Co de Phone Number [facility] [address] [place] [address], [facility] DTL [facility] [address] [place] [address] * Troponin T, 2 Hour with 6 Hour Reflex, 5th Gen (03/26/2025 9:39 PM CDT) Troponin T, 2 hr, 5th gen 8 <=15 ng/L 03/26/2025 10:32 PM CDT ST[facility] 2H Delta -1 ng/L 03/26/2025 10:32 PM CDT ST[facility] Comment:6 hour collection no t indicated. 2H Delta Interp Not Changing 03/26/2025 10:32 PM CDT ST[facility] Blood 03/26/2025 9:39 PM CDT 03/26/2025 9:43 PM CDT us Job Torres P.A.-C. LAB BLOOD TROPONIN Final R esult Performing Organization Address City/[facility]/ZIP Co de Phone Number [facility] [address] [place] [address], [facility] STMA [facility] [address] [place] [address] * Troponin T, Baseline with 2 Hour/6 Hour Reflex Biomarker Panel (03/26/2025 6:55 PM CDT) Troponin T, Baseline, 5th gen 9 <=15 ng/L 03/26/2025 7:16 PM CDT ST[facility] Blood (Blood, Venous) 03/26/2025 6:55 PM CDT 03/26/2025 7:00 PM CDT us Donta Shepard M.D. LAB BLOOD TROPONIN Final Re sult [facility] [address] [place] [id number], [facility] STMA [facility] [address] [place] [address] * (ABNORMAL) Basic Metabolic Panel (03/26/2025 6:55 PM CDT) Only the most recent of4 resultswithin the time period is included. Potassium, P 4.0 3.6 - 5.2 mmol/L [...] M.D. LAB BLOOD ADD-ON Final Resu lt [facility] [address] [place] [address], [facility] [address] [place] [address] * ECG 12 Lead (03/26/2025 6:48 PM CDT) Only the most recent of2 resultswithin the time period is included. Ventricular Rate ECG/Min 80 BPM MUSE NH Interval 148 ms MUSE QRSD Interval 90 ms MUSE QT Interval 400 ms MUSE QTC Interval 461 ms MUSE P [place] 37 degrees MUSE R [place] -31 degrees MUSE T Wave [place] 38 degrees MUSE 03/26/2025 6:48 PM CDT [...] Shepard M.D. ECG ORDERABLES Final Resul t MUSE NA * Osmolality, Urine (03/26/2025 6:44 PM CDT) Osmolality, U 617 150 - 1150 mOsm/kg 03/26/2025 7:30 PM CDT DTL Urine 03/26/2025 6:44 PM CDT 03/26/2025 7:06 PM CDT us Donta Shepard M.D. LAB URINE ORDERABLES Final Result [facility] [address] [place] [address], [place] DTL [facility] [address] [place] [address] * (ABNORMAL) Dipstick, Urine (03/26/2025 6:44 PM CDT) Only the most recent of2 resultswithin the time period is included. Hemoglobin, QL, U Large(A) Negative 03/26/2025 7:12 PM CDT DTL Leukocyte Esterase, U Trace(A) Negative 03/26/2025 7:12 PM CDT DTL Nitrite, U Negative Negative 03/26/2025 7:12 PM CDT DTL Ketone, U Negative Negative mg/dL 03/26/2025 7:12 PM CDT DTL Glucose, U Negative Negative mg/dL 03/26/2025 7:12 PM CDT DTL Urine 03/26/2025 6:44 PM CDT 03/26/2025 7:06 PM CDT Donta Shepard M.D. LAB URINE ORDERABLES Final Result Performing Organization Address City/[facility]/ZIP Co de Phone Number [facility] [address] [place] [address] * pH, Random, Urine (03/26/2025 6:44 PM CDT) pH, Random, U 5.6 4.5 - 8.0 03/26/2025 7:30 PM CDT DTL Urine 03/26/2025 6:44 PM CDT 03/26/2025 7:06 PM CDT Donta Shepard M.D. LAB URINE ORDERABLES Final Result [facility] 200 [place] [address] * (ABNORMAL) Microscopic Manual (03/26/2025 6:44 PM CDT) Only the most recent of2 resultswithin the time period is included. Pathologist [facility] Microscopy Abnormal 03/26/2025 9:01 PM CDT DTL [...] 6:44 PM CDT 03/26/2025 7:06 PM CDT Donta Shepard M.D. LAB URINE ORDERABLES Final Result Performing Organization Address [facility] [place] [address] * Bacterial Culture, Aerobic + Susceptibility, Urine (03/26/2025 6:44 PM CDT) Only the most recent of2 resultswithin the time period is included. Urine Culture No growth after 1 day of incubation. 03/27/2025 1:41 PM CDT DTL Urine (Urine, Straight Catheter) 03/26/2025 6:44 PM CDT 03/26/2025 7:29 PM CDT Comment:Specimen Source Site : Urine Donta Shepard M.D. LAB MICROBIOLOGY - GENERAL ORDERABLES Final Result Performing Organization Address City/[facility]/ZIP Co de Phone Number [facility] [address] [place] [address], [place] [address] * (ABNORMAL) Urinalysis, with Microscopic: Urine, Catheter (03/26/2025 6:44 PM CDT) Only the most recent of2 resultswithin the time period is included. Source Urine, Urine, Catheter 03/26/2025 7:06 PM [...] Shepard M.D. LAB URINE ORDERABLES Final Result [facility] [address] [place] [address], [facility] DTFormerly named [facility] [address] [place] [address] * CT Abdomen Pelvis without IV Contrast (03/23/2025 9:21 AM CDT) Only the most recent of2 resultswithin the time period is included. Anatomical Region Laterality Modality Abdomen, Pelvis, Abdominal [...] Several additional stable findings as above. Carroll Johnson M.D. IMG CT PROCEDURES Final Resul t * Patient Status (03/08/2025 10:53 AM CDT) FIO2 0.21 0.21=AIR 03/08/2025 11:02 AM CDT METH Device NC 03/08/2025 11:02 AM CDT METH Spont. breaths/min 27 03/08/2025 11:02 AM CDT METH Blood 03/08/2025 10:5 3 AM CDT 03/08/2025 11:02 AM CDT Erin Cook P.A.-C. LAB BLOOD NON ADD-ON Final Result [facility] [employer] [facility] [address] [place] [address], [facility] METH [facility] [address] [place] [address] * (ABNORMAL) Blood Gas without Coox, Venous (03/08/2025 10:53 AM CDT) pO2, Venous, B 57 Not applicable mm Hg 03/08/2025 11:04 AM CDT METH pCO2, Venous, B 40(L) 41 - 51 mm Hg 03/08/2025 11:04 AM CDT METH pH, Venous, B 7.45(H) 7.32 - 7.43 pH 025 11:04 AM CDT METH Base Excess, Venous, B 3 Not applicable mmol/L 03/08/2025 11:04 AM CDT METH HCO3, Venous, B 27 Not applicable mmol/L 03/08/2025 11:04 AM CDT METH Sample Site, Venous, B Venipunct 03/08/2025 11:02 AM CDT METH Blood (Blood, Venous) 03/08/2025 10:53 AM CDT 03/08/2025 11:02 AM CDT us Erin Cook P.A.-C. LAB BLOOD NON ADD-ON Final Result [facility] [address] [place] [address], [facility] METH [facility] [address] [place] [address] * Magnesium (03/07/2025 2:49 PM CDT) Magnesium, S 1.8 1.7 - 2.3 mg/dL 03/07/2025 4:17 PM CDT DTL Blood (Blood, Venous) 03/07/2025 2:49 PM CDT 03/07/2025 3:21 PM CDT Carroll Johnson M.D. LAB BLOOD ADD-ON Final Result [facility] [address] [place] [address], [facility] DTL [facility] [address] [place] [address] * FL Fluoro Less Than 1 Hour (03/06/2025 4:21 PM CDT) Narrative [id number] - 03/06/2025 4:21 PM CDT This exam does not require a radiologist review or interpretation. Please refer to the patient's medical record on this date for clinical details. Bill Pacheco M.D. IMG FLUOROSCOPY PROCEDURE S Final Result Performing Organization Address [facility]/ZIP Co de Phone Number [id number] NA * Kidney Stone Analysis (03/06/2025 3:53 PM CDT) Source Stone, Kidney, Right 03/18/2025 3:05 PM CDT [facility] Stone Interpretation 60% Calcium phosphate (apatite). 20% Calcium oxalate dihydrate. 20% Calcium oxalate monohydrate. 03/18/2025 3:05 PM CDT [facility] Result Comment For stones containing calcium oxalate, calcium phosphate, and/or uric acid, a 24 hr urinary supersaturation test may help detect underlying risk factors for this type of stone formation and provide guidance for a stone prevention strategy. 03/18/2025 3:05 PM CDT [facility] Comment: ----ADDITIONAL INFORMATION---- This test was developed and its performance characteristics determined by [facility] in a manner consistent with CLIA requirements. This test has not been cleared or approved by the U.S. Food and Drug Administration. Stone (Kidney, Right) 03/06/2025 3:53 PM CDT Bill Pacheco M.D. LAB MISC ORDERABLES Final Result [facility] [address] [place] [address] [facility] [address] [place] [address] [place] [address] * Ureaplasma PCR (03/06/2025 3:51 PM CDT) Specimen Source Stone, Kidney, Right 03/09/2025 10:52 AM CDT DTL Ureaplasma urealyticum PCR Negative Not Applicable 03/09/2025 10:52 AM CDT DTL Ureaplasma parvum PCR Negative Not Applicable 03/09/2025 10:52 AM CDT DTL Comment: ----ADDITIONAL INFORMATION---- This test was developed and its performance characteristics determined by [facility] in a manner consistent with CLIA requirements. This test has not been cleared or approved by the U.S. Food and Drug Administration. Stone (Kidney, Right) 03/06/2025 3:51 PM CDT Bill Pacheco M.D. LAB MICROBIOLOGY - GENERA L ORDERABLES Final Result Performing Organization Address [facility] Co de Phone Number [facility] [address] [place] [address], [place] [address] * Mycoplasma hominis PCR (03/06/2025 3:51 PM CDT) Specimen Source Stone, Kidney, Right 03/09/2025 10:28 AM CDT DTL Mycoplasma hominis PCR Negative Not Applicable 03/09/2025 10:28 AM CDT DTL Comment: ----ADDITIONAL INFORMATION---- This test was developed and its performance characteristics determined by [facility] in a manner consistent with CLIA requirements. This test has not been cleared or approved by the U.S. Food and Drug Administration. Stone (Kidney, Right) 03/06/2025 3:51 PM CDT Bill Pacheco M.D. LAB MICROBIOLOGY - GENERA L ORDERABLES Final Result Performing Organization Address [facility] [place] [address], [facility] [place] [address] * (ABNORMAL) Bacterial Culture, Aerobic + Susceptibility (03/06/2025 3:51 PM CDT) Bacterial Culture, Aerobic + Susc STAPHYLOCOCCUS EPIDERMIDIS 2+ (A) 03/10/2025 2:12 PM CDT DTL Bacterial Culture, Aerobic + Susc AEROCOCCUS URINAE 2+ (A) 03/10/2025 2:12 PM CDT DTL Stone (Kidney, Right) 03/06/2025 3:51 PM CDT Narrative Organism Antibiotic Method Susceptibility Staphylococcus epidermidis Oxacillin SUSCEPTIBILITY, ORLY (MCG/ML) 0.5 mcg/mL: Susceptible Comment: Use oxacillin interpretation to predict results for anti-staphylococcal beta-lactam antibiotics (except ceftaroline). Staphylococcus epidermidis Vancomycin SUSCEPTIBILITY, ORLY (MCG/ML) 2 mcg/mL: Susceptible Staphylococcus epidermidis Clindamycin SUSCEPTIBILITY, ORLY (MCG/ML) <=0.5 mcg/mL: Susceptible Staphylococcus epidermidis Levofloxacin SUSCEPTIBILITY, ORLY (MCG/ML) >4 mcg/mL: Resistant Comment: Fluoroquinolones have a limited role in treatment of staphylococcal infections; consult Infectious Diseases if considering usage. Staphylococcus epidermidis Trimethoprim + Sulfamethoxazole SUSCEPTIBILITY, ORLY (MCG/ML) >2/38 mcg/mL: Resistant Staphylococcus epidermidis Minocycline SUSCEPTIBILITY, ORLY (MCG/ML) <=1 mcg/mL: Susceptible Staphylococcus epidermidis Rifampin SUSCEPTIBILITY, ORLY (MCG/ML) <=0.5 mcg/mL: Susceptible Comment:Rifampin emeka uld not be used as monotherapy Staphylococcus epidermidis Doxycycline SUSCEPTIBILITY, ORLY (MCG/ML) <=4 mcg/mL: Susceptible Aerococcus urinae Penicillin SUSCEPTIBILITY , ORLY (MCG/ML) <=0.06 mcg/mL: Susceptible Aerococcus urinae Vancomycin SUSCEPTIBILITY , ORLY (MCG/ML) <=1 mcg/mL: Susceptible Aerococcus urinae Ceftriaxone SUSCEPTIBILITY , ORLY (MCG/ML) 1 mcg/mL: Susceptible us Bill Pacheco M.D. LAB MICROBIOLOGY - GENERA L ORDERABLES Final Result [facility] [address] [place] [address], [facility] DTFormerly named [facility] [address] [place] [address] * Mycobacterial Culture (03/06/2025 3:51 PM CDT) Mycobacterial Culture No growth after 42 days of incubation . 04/18/2025 1:03 AM CDT DTL Kidney, Right 03/06/2025 3:5 1 PM CDT 03/06/2025 6:55 PM CDT Comment:Specimen Source Site : Stone Bill Pacheco M.D. LAB MICROBIOLOGY - GENERA L ORDERABLES Final Result [facility] [address] [place] [address], [facility] [address] [place] [address] * Fungal Smear (03/06/2025 3:51 PM CDT) Fungal Smear Negative. 03/08/2025 2:28 PM CDT DT Stone (Kidney, Right) 03/06/2025 3:51 PM CDT Bill Pacheco M.D. LAB MICROBIOLOGY - GENERA L ORDERABLES Final Result Performing Organization Address City/[facility]/ZIP Co de Phone Number [facility] [address] [place] [address] * Acid Fast Smear for Mycobacterium (03/06/2025 3:51 PM CDT) Acid Fast Smear For Mycobacterium Negative. 03/08/2025 6:15 PM CDT DT Stone (Kidney, Right) 03/06/2025 3:51 PM CDT Bill Pacheco M.D. LAB MICROBIOLOGY - GENERA L ORDERABLES Final Result Performing Organization Address City/[facility]/ZIP Co de Phone Number [facility] [address] [place] [address], [facility] [address] [place] [address] * (ABNORMAL) Gram Stain (03/06/2025 3:51 PM CDT) Gram Stain GRAM NEGATIVE BACILLUS Few (A) 03/07/2025 12:00 AM CDT DTL Comment:Semi-Urgent Result. Gram Stain GRAM POSITIVE COCCI Moderate (A) 03/07/2025 12:00 AM CDT DTL Comment:Semi-Urgent Result. Semi-Urgent This is a semi-urgent result(KHAN) [facility] Stone (Kidney, Right) 03/06/2025 3:51 PM CDT Bill Pacheco M.D. LAB MICROBIOLOGY - GENERA L ORDERABLES Final Result Performing Organization Address [facility]/ZIP Co de Phone Number [facility] [address] [place] [address] * Fungal Culture, Routine (03/06/2025 3:51 PM CDT) Fungal Culture, Routine No growth after 24 days of incubation. 03/31/2025 1:02 AM CDT DTL Stone (Kidney, Right) 03/06/2025 3:51 PM CDT Bill Pacheco M.D. LAB MICROBIOLOGY - GENERA L ORDERABLES Final Result Performing Organization Address [facility] Co de Phone Number [facility] [address] [place] [address] * [place] ARTL CATH/CNULA MONITOR PERC, LDA ANE ARTERIAL LINE INSERTION (03/06/2025 1:55 PM CDT) Narrative Estrellita Rodriguez - 03/06/2025 1:55 PM CDT Estrellita Rodriguez 03/06/2025 2:11 PM Invasive Catheter Date/Time: 03/06/2025 1:55 PM Performed by: Estrellita Rodriguez Authorized by: Holli Genao M.D., M.H.A. Location: OR PROCEDURE DETAILS: Line type: arterial Laterality: right Location: radial Location details: new site Age group: adult Catheter diameter: 20 Ga Technique: ultrasound guided Monitored: yes Number of attempts: 1 UNIVERSAL PROTOCOL All relevant documentation and testing were reviewed and available. All required blood products, implants, devices and or special equipment were made available as applicable. Pre-procedure verification was conducted and the correct site was marked if required. A fire risk and smoke assessment were done as applicable. The procedural time-out to verify correct patient, correct side/site, and procedure was conducted prior to performing the procedure and confirmed in a procedural pause. PRE-PROCEDURE DETAILS: Appropriate hand hygiene, gown, cap, mask, protective eyewear, sterile gloves, skin preparation, sterile drape, and strict aseptic technique were utilized as applicable for the procedure.: yes Skin preparation: chlorhexidine SEDATION / ANESTHESIA Anesthesia method: anesthesia POST-PROCEDURE DETAILS: Procedure completed successfully: yes Line secured: secured with sutureless device Chlorhexidine disc around insertion site and under catheter with slight turn: yes Notable Events - arterial: none us Holli Genao M.D., M.H.A. PROCEDURE/MINOR SURGI MAUREEN ORDERABLES Final Result * Type and Screen (with Reflex Antibody ID) (03/06/2025 1:41 PM CDT) ABORh A Pos Not applicable 03/06/2025 2:14 PM CDT ETRM Antibody Screen Negative Negative 03/06/2025 2:27 PM CDT ETRM Type & Screen Expiration 03/09/2025 23:59 03/06/2025 2:14 PM CDT ETRM Testing Location Domenic DEFAULT 03/06/2025 1:49 PM CDT ETRM Blood (Blood, Venous) 03/06/2025 1:41 PM CDT 03/06/2025 1:49 PM CDT us Holli Genao M.D., M.H.A. LAB BLOOD BANK TEST O RDERABLES Final Result [facility] [address] [place] [address], [place] ETRM [facility] [address] [place] [address] * LDA ANE ENDOTRACHEAL AIRWAY (03/06/2025 1:32 PM CDT) Narrative Estrellita Rodriguez S - 03/06/2025 1:32 PM CDT Estrellita Rodriguez 03/06/2025 2:13 PM Airway Date/Time: 03/06/2025 1:32 PM Performed by: Estrellita Rodriguez Authorized by: Holli Genao M.D., M.H.A. Patient location during procedure: OR / Procedure Area PROCEDURE DETAILS: Mask difficulty assessment: oral/nasal airway needed Final airway type: video laryngoscope Laryngeal Manipulation: no Final best view of glottic structures - Cormack/Lehane Score: grade 2A ETT location: oral VL device: glide scope Steuben scope blade size: 4 Tube size: 7.5 ETT distance at teeth/gum: 23 Oral tube type: standard ETT Cuffed: yes Number of attempt to successful placement: 1 Airway confirmation: bilateral breath sounds, positive ETCO2 and bilateral chest rise Other previous techniques attempted: none PRE PROCEDURE DETAILS: Pre evaluation for airway management: procedure Urgency: elective Preoxygenation: bag valve mask SEDATION / ANESTHESIA Anesthesia method: anesthesia POST PROCEDURE DETAILS: Procedure outcome: successful Notable Events: no complications Holli Genao M.D., M.H.A. ANESTHESIA ORDERABLES Final Result * Vancomycin, Trough Hold AM dose of vancomycin on 03/06 until trough level is drawn (03/06/2025 3:33 AM CDT) Vancomycin, Trough, S 14.8 10.0 - 20.0 mcg/mL 03/06/2025 4:31 AM CDT DTL Blood (Blood, Venous) 03/06/2025 3:33 AM CDT 03/06/2025 3:47 AM CDT Bill Pacheco M.D. LAB BLOOD NON ADD-ON Mini l Result [facility] [address] [place] [address], [place] DTL [facility] [address] [place] [address] * pH, Urine (02/04/2025 9:52 AM CDT) pH, U 5.9 4.5 - 8.0 02/04/2025 11: 13 AM CDT DTL Urine 02/04/2025 9:52 AM CDT 02/04/2025 10:29 AM CDT us Soft Results Interface LAB URINE ORDERABLES Mini l Result [facility] [address] [place] [address], [facility] [address] [place] [address] * Osmolality, Urine (02/04/2025 9:52 AM CDT) Osmolality, U 789 150 - 1150 mOsm/kg 02/04/2025 11:13 AM CDT DTL Urine 02/04/2025 9:52 AM CDT 02/04/2025 10:29 AM CDT us Soft Results Interface LAB URINE ORDERABLES Mini l Result Performing Organization Address City/[facility] Co de Phone Number [facility] [address] [place] [address], [facility] [address] [place] [address] from Last 3 Months Additional Health Concerns Active Problems Noted Date Diagnosed Date Autogenerated Problem 03/27/2025 Insurance MEDICARE [employer] Advance Directives For more information, please contact: [phone] * Full Code (Latest Code Status on File) Date Activated Date Inactivated Comments 12/23/2017 7:03 PM 12/27/2017 3:41 PM Question Answer Comments Full Code: Not Discussed Due to: Patient not available Care Teams Audio Tape Librarian Relationship Specialty Start Date End Date Elsewhere, Pcp PCP - General Family Medicine 09/06/17
--- OUTSIDE RECORDS SUMMARY | 2025-04-27 17:28 | XMS_ITS | Encounter Summary ---
Author Organization [facility] Address [address] [place] [address] Care Team Providers Care Specialist Employee Labor Relations Name Role Phone Elsewhere, Pcp Primary Care Provider Unavailabl e Encounter Details Date Type Department Care Team (Late st Contact Info) Description 04/24/2025 Clinical Communication Department of Urology in [place], [place] [address] [place] [phone] Bill Pacheco M.D. [address] [place] [phone] Social History Tobacco Use Types Packs/Day Years Used Date Smoking Tobacco: Former Cigarettes Passive Smoke Exposure: Current Smokeless Tobacco: Former Chew Alcohol Use Standard Drinks/Week Comments No 0 (1 standard drink = 0.6 oz pur e alcohol) [facility] Utilities Answer Date Recorded In the past 12 months has [facility] [employer], gas, oil, or water [employer] threatened to shut off services in your [...] living situation today? I have a [facility] place to live 03/05/2025 Education Answer Date Recorded What is the highest level of school you have completed or the highest degree you have received? 12th grade 08/26/2019 Sex and Gender Information Value Date Recorded Sex Assigned at Not on file Legal Sex Male 4:48 AM DISABILITY AIDE Gender Identity Not on file Sexual Orientation Not on file documented as of this encounter Miscellaneous Notes * Telephone Encounter - Madison Carter R.N. - 04/27/2025 5:16 PM CDT Information Discussed Called Maida and notified her that preadmission will depend on urine culture results. Unfortunately she stated that Dwain is on his way via ambulance to [facility], as she noted a left sided facial droop and lethargic appearance this afternoon. PLAN Maida will notify us of his hospital outcome. Disposition/Recommendation: Patient is currently on route via ambulance to [facility] while phone call was placed to his . Information/Education: patient/caller able to teach back Caller agreeable to plan of care: yes The following references were used: provider Dr. Pacheco * Telephone Encounter - Madison Carter R.N. - 04/27/2025 2:52 PM CDT PLAN The following information was provided: Called and spoke with patient's Maida regarding Eliquis hold instruction instructions: Last dose on 05/11, with 3 day hold. Information/Education: patient/caller able to teach back The following references were used: provider Dr. Shiva Main. * Telephone Encounter - Marge Chairez R.N. - 04/24/2025 2:32 PM CDT Images from the original note were not included. Shea Main M.D., M.S. P t Uro Endourology [facility], Can you help me with communicating these recommendations to the patient? Surgery 05/15, hold Eliquis 3 d prior so last dose 05/11 (no Eliquis 05/12, 05/13, 05/14 or day of surgery). Thank you! Shea documented in this encounter Plan of Treatment Upcoming Encounters Date Type Department Care Team (Latest Contact Info) Description 05/01/2025 11:30 AM CDT Appointment Department of Laboratory Medicine in [address] [phone] Bill Pacheco M.D. [address] [place] [phone] 05/01/2025 1:15 PM CDT Clinical Support Division of Allergic Diseases in [place], [place] [address] [place] [phone] Simi Hart MPAS, P.A.-C. [address] [place] [phone] 05/01/2025 2:00 PM CDT Comprehensive Visit Division of Allergic Diseases in [place], [place] [address] [place] [phone] Darwin Martinez M.D., Ph.D. [address] [place] [phone] 05/15/2025 2:23 PM CDT Hospital Encounter [facility] Bed Planning Bill Pacheco M.D. [address] [place] [phone] 05/15/2025 2:23 PM CDT - 05/15/2025 4:26 PM CDT Surgery [facility] [address] [place] [phone] Bill Pacheco M.D. [address] [place] [phone] URETEROSCOPY WITH LASER LITHOTRIPSY,WITH CALYXO, PROCEED INDICATED Scheduled Procedures Name Priority Associated Diagnoses Date/Ti me URETEROSCOPY WITH LASER LITHOTRIPSY Nephrolithiasis 05/15/2025 2:23 PM CDT EXCHANGE URETERAL STENT Nephrolithiasis 05/15/2025 2:23 PM CDT documented as of this encounter Goals Goal Patient Goal Type Associated Problems Recent Progress Patient-Stated? Author Autogenerat ed Goal Care Plan Autogenerated Problem No Vidhya Villarreal, RLatanyaNLatanya documented as of this encounter Visit Diagnoses Not on filedocumented in this encounter Additional Health Concerns Active Problems Noted Date Diagnosed Date Autogenerated Problem 03/27/2025 documented as of this encounter Care Teams Specialist Employee Labor Relations Relationship Specialty Start Date End Date Elsewhere, Pcp PCP - General Family Medicine 09/06/17 documented as of this encounter
--- OUTSIDE RECORDS SUMMARY | 2025-04-27 17:28 | XMS_ITS | Encounter Summary ---
Author Organization [facility] er Address [address] [place] [address] Care Team Providers Care Industrial Hygiene Manager Name Role Phone Wade Donovan MD Primary Care Provider [phone] Encounter Details Date Type Department Care Team (Late st Contact Info) Description 01/25/2024 Telephone [place] [address] [place] [phone] Hali Soriano, STARS COORDINATOR [address] [place] [phone] Social History Tobacco Use Types Packs/Day Years [...] week 11/07/2023 How often do you attend jewish or moravian serv ices? Never 11/07/2023 Do [...] Date Recorded PHQ-9 Total Score 1 11/07/2023 [facility] - Occupational Stress Questionnaire Answer Date [...] in a halfway (including now)? No 11/07/2023 Sex and Gender [...] Office Visit [facility] [address] [place] [phone] Kayleen Garcia MD [address] [place] [phone] 05/12/2025 1:00 PM CDT Office Visit [facility] [address], [place] [phone] Darwin Moreau MD 210 [place] [phone] 05/21/2025 3:20 PM CDT [facility] [address], [place] [phone] Maria Fernanda Campoverde MD 210 [place] [phone] 08/19/2025 2:30 PM PROMOTIONAL MODEL Consult [facility] [address] [address] Hazel Alvarez MBBS [address] [place] [phone] 08/24/2025 8:20 AM PROMOTIONAL MODEL [facility] [address] [place] [address] Maria Fernanda Campoverde MD 210 [place] [phone] documented as of this encounter Visit Diagnoses Not on filedocumented in this encounter Additional Health Concerns Infection Onset Date Last Indicated Resolved Time MSSA 08/02/2023 08/02/2023 documented as of this encounter Care Teams Industrial Hygiene Manager Relationship Specialty Start Date End Date Wade Donovan MD [address] [place] [phone] PCP - General Family Medicine 02/05/24 documented as of this encounter
[2025-04-27 17:39] VITALS: BP 145/99; PULSE 122; RESP 20; TEMP 37.8; O2SAT 92
--- NOTE | 2025-04-27 17:41 | CRLHL7_ITS ---
For Patients: As a result of the Century Cures Act, medical imaging exams and procedure reports are released immediately into your electronic medical record. You may view this report before your referring provider. If you have questions, please contact your health care provider. INDICATION: Acute stroke. TECHNIQUE: CTA head with contrast bolus tracking, 3D angiographic rendering using maximum intensity projection (MIP) and images permanently archived. FINDINGS: The right internal carotid artery is ectatic. No saccular aneurysm is identified. There is no large vessel occlusion or significant intracranial stenosis. IMPRESSION: No acute intracranial abnormality at CTA. Please note that all CT scans at this facility use dose modulation, iterative reconstruction, and/or weight-based dosing when appropriate to reduce radiation dose to as low as reasonably achievable. Dictated by Kain Sheriff MD @ 04/28/2025 9:51:13 AM (Electronically Signed)
--- NOTE | 2025-04-27 17:41 | CRLHL7_ITS ---
For Patients: As a result of the Century Cures Act, medical imaging exams and procedure reports are released immediately into your electronic medical record. You may view this report before your referring provider. If you have questions, please contact your health care provider. INDICATION: Acute stroke. TECHNIQUE: CTA neck with contrast bolus tracking, 3D angiographic rendering using maximum intensity projection (MIP) and images permanently archived. FINDINGS: There is no significant carotid artery stenosis or dissection. There is no significant vertebral artery stenosis or dissection. The soft tissues of the neck are within normal limits. The cervical spine is in normal alignment. Degenerative changes are noted in the cervical spine. IMPRESSION: No significant carotid or vertebral artery stenosis or dissection. Please note that all CT scans at this facility use dose modulation, iterative reconstruction, and/or weight-based dosing when appropriate to reduce radiation dose to as low as reasonably achievable. Dictated by Kain Sheriff MD @ 04/28/2025 9:53:47 AM (Electronically Signed)
--- NOTE | 2025-04-27 17:41 | CRLHL7_ITS ---
For Patients: As a result of the Century Cures Act, medical imaging exams and procedure reports are released immediately into your electronic medical record. You may view this report before your referring provider. If you have questions, please contact your health care provider. Indication: Slow speech possible right arm weakness, history of CVA Technique: Volumetric multidetector CT images of the head were obtained without the administration of low osmolar intravenous contrast. Comparison: CT head December 13, 2024 Findings: There is no intra-axial or extra-axial fluid collection. There is no mass effect or midline shift. There is age-related cortical atrophy with mild sulcal widening and ex vacuo dilatation of the lateral ventricles. Encephalomalacia of the left frontal lobe is again appreciated with moderate chronic small vessel disease changes of the subcortical and periventricular white matter. There is additional lacunar infarct changes of the left cerebellar hemisphere. Encephalomalacia of the left temporal pole is appreciated. There is moderate chronic small vessel disease change within the subcortical and periventricular white matter. Otherwise, the brain parenchyma is preserved in attenuation and meza-white differentiation. The orbits and their contents are grossly within normal limits. Postoperative change of the frontal bone status post bifrontal craniotomy is appreciated. There is minimal polypoid mucosal thickening appreciated within the ethmoid air cells. The mastoid air cells are well aerated. Impression: 1. Stable postoperative changes and remote ischemic changes of the brain without acute intracranial abnormality. Please note that all CT scans at this facility use dose modulation, iterative reconstruction, and/or weight-based dosing when appropriate to reduce radiation dose to as low as reasonably achievable. Dictated by Abdoulaye Chan MD @ 04/27/2025 8:01:57 PM (Electronically Signed)
--- NOTE | 2025-04-27 17:43 | CRLHL7_ITS ---
For Patients: As a result of the Cures Act, medical imaging exams and procedure reports are released immediately into your electronic medical record. You may view this report before your referring provider. If you have questions, please contact your health care provider. INDICATION: Fever. TECHNIQUE: Chest 1 view. COMPARISON: October 28, 2023. FINDINGS: Cardiovascular and mediastinum: Cardiomediastinal silhouette is within normal limits. Lungs and pleural spaces: Perihilar interstitial opacities and peribronchial cuffing. No evidence of pleural effusion. No pneumothorax identified. Bones and soft tissues: Unremarkable. IMPRESSION: Perihilar interstitial opacities and peribronchial cuffing, can be seen in the setting of viral illness or other airways disease. Dictated by Jeimy Wayne MD @ 04/27/2025 7:58:46 PM (Electronically Signed)
--- NOTE | 2025-04-27 18:18 | ED.GENADULT ---
HPI - General Adult General Date Seen: 04/27/25 Chief complaint: Altered Mental Status Stated complaint: Altered mental status Time Seen by Provider: 04/27/25 17:33 History of Present Illness HPI narrative: Patient is a 64-year-old here with his by EMS for evaluation of confusion. He has a past medical history notable for MS, stroke, PE, he is chronically anticoagulated. He is wheelchair-bound, history is provided primarily by his who says that when he got up this morning she thinks he seemed pretty good but mid morning she felt like he was more confused. He went outside for a little bit, he does not do well with the heat so after about 20 minute she had him come in. She feels like it has been harder to get him dressed, he does not seem to be using his right arm quite as well. He does not have good use at all of his left arm and has no movement in his legs but she says that he is usually able to use his right arm a little bit. He does not do any of his own ADLs, she feeds him for sepsis teeth etcetera. She also feels that his speech is somewhat slow today, and he has been a little more confused than usual. Patient is not able to answer as to whether not he feels normal today are not. He says he is not sure. He denies any pain. No reported fevers at home but EMS did report a mildly elevated temperature of 100.1?. He has a history of past urinary tract infections, had a stent placed secondary to kidney stones at [facility] in March, was seen there a couple weeks later because of blood in the urine and she said imaging everything else checked out okay. He has continued to have some blood in the urine. Related Data Home Medications ?Medication ?Instructions ?Recorded ?Confirmed atorvastatin 20 mg tablet 20 mg PO QHS 10/03/22 12/13/24 warfarin 2 mg tablet 2 mg PO SUTUTHSA@10/03/22 12/13/24 warfarin 4 mg tablet 4 mg PO MOWEFR@10/03/22 12/13/24 oxybutynin chloride 5 mg tablet 5 mg PO BID 02/05/23 12/13/24 baclofen 10 mg tablet 10 - 20 mg PO BID 02/06/23 12/13/24 sennosides 25 mg tablet 25 mg PO HS 10/28/23 12/13/24 naphazoline 0.025 %-pheniramine 1 drp ophthalmic (eye) DAILY 10/29/23 12/13/24 0.3 % eye drops (Naphcon-A) Previous Rx's ?Medication ?Instructions ?Recorded amoxicillin 875 mg tablet 875 mg PO Q12H #10 tabs 10/31/23 Allergies Allergy/AdvReac Type Severity Reaction Status Date / Time bee venom protein (honey bee) Allergy Verified 12/13/24 14:06 Review of Systems Status of ROS: Reports: 10 or more systems reviewed and unremarkable except as noted in History and below 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 (ICD-10) History of pulmonary embolism ?Z86.711 - Personal history of pulmonary embolism (ICD-10) Neurogenic bladder ?N31.9 - Neuromuscular dysfunction of bladder, unspecified (ICD-10) Encephalomalacia on imaging study ?G93.89 - Other specified disorders of brain (ICD-10) Meningioma ?D32.9 - Benign neoplasm of meninges, unspecified (ICD-10) Femur fracture ?S72.90XA - Unspecified fracture of unspecified femur, initial encounter for closed fracture (ICD-10) Hyperlipidemia ?E78.5 - Hyperlipidemia, unspecified (ICD-10) Surgical History S/P ORIF (open reduction internal fixation) fracture ?Z98.890 - Other specified postprocedural states (ICD-10) ?Z87.81 - Personal history of (healed) traumatic fracture (ICD-10) History of genitourinary surgery ?Z98.890 - Other specified postprocedural states (ICD-10) History of tonsillectomy and adenoidectomy ?Z90.89 - Acquired absence of other organs (ICD-10) Family History Mother Colon cancer COPD (chronic obstructive pulmonary disease) Father Heart disease Social History Narrative: Lives with Maida in [place]; she is primary client services associate and would be medical decision maker if needed. Adult children. 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 Former smoker. What is your current living situation?: I presently have a place to live Problems where you live: no known problems Problems where you live details: N/A In the past 12 months, utilities in danger of being shut off: no In past 12 months, lack of transportation kept you from medical appts, meetings, work, or getting things needed for daily living: no In the past 12 mos, have been you worried that your food would run out before you had money to buy more?: never true In the past 12 mos, the food you bought just didn't last and you didn't have money to buy more?: never true Highest level of school completed/degree received: high school graduate Smoking Status: Never smoker Do you use any of these nicotine containing products: None Second hand tobacco smoke exposure: No How often do you have a drink containing alcohol: never How many standard drinks containing alcohol do you have on a typical day: 1 or 2 How often do you have six or more drinks on one occasion: Never AUDIT-C Alcohol total score: 0 Non-prescribed substance use: denies use Caffeine: No How often does anyone, including family, friends and others, physically hurt you: never How often does anyone, including family, friends and others, insult or talk down to you: never How often does anyone, including family, friends and others, threaten you with harm: never How often does anyone, including family, friends and others, scream or curse at you: never service: No Exam Narrative: Exam Narrative: Vital signs reviewed In general, an alert male. He is cooperative and conversant. Head: Atraumatic. Eyes: Sclera clear. He appears to have an old injury to the left eye, right pupil is mid point reactive. ENT: Mucous membranes moist. Neck: Supple without adenopathy. Heart: Tachycardic, regular. No obvious murmur. Lungs: Clear anteriorly. Abdomen: Soft, nontender to palpation. Extremities: Well perfused, pulses intact. No significant edema. Neurologic: Alert, conversant. He answers questions most of the time, sometimes seems to struggle to answer. Speech is a little bit slow but not significantly dysarthric. He is oriented to person and knows that he is at the hospital although he thought he was at [facility]. He is not able to tell me the month or year. He is able to slightly move his right arm to command though minimally so. Chronic flexion at both hands. Skin: Warm, dry well perfused. Affect: Normal. Const: Vital Signs, click to edit/add: Vital Signs - 24 hr 04/27/25 17:39 04/27/25 23:15 Temperature 100.1 F H Pulse Rate 103 H Pulse Rate [Pulse Oximeter] 122 H Respiratory Rate 20 20 Blood Pressure 142/89 H Blood Pressure [Le ft Upper Arm] 145/99 H Pulse Oximetry 92 91 Oxygen Delivery Me thod Room Air Course Course ED Course: Patient presents with some confusion, possible decreased strength on the right, possible speech changes, also in the setting of low-grade fever, urinary stent, paraplegia due to MS. Differential is extremely broad and includes both infectious, neurologic, metabolic entities. He does have a history of prior stroke, I will get a CT and CT angiogram to look for anything acute in terms of large vessel occlusion. It is a little difficult to assess his neurologic exam not knowing what his baseline is but his feels that his right arm is working more poorly than usual. Certainly these symptoms could be attributable to exacerbation of his underlying prior stroke or MS in the setting of infection. He is tachycardic here, temperature is a little bit elevated and certainly sepsis is a possibility. I have ordered 500 mL of normal saline to start while we get a better handle on what is going on with him, will assess further fluid resuscitation as we get some data back. I have also ordered a chest x-ray, we will get a urinalysis, blood work to include blood cultures, lactate and procalcitonin. Regarding stroke evaluation, patient had a head CT which by my review was negative for any acute findings such as hemorrhage and a CT angiogram of the head and neck. All of these images were read by Radiology as showing no acute findings. With regard to workup for infection, he did have a normal white blood cell count here of 6.3 with a left shift with 85% neutrophils. Has lactate was 1.5, CRP mildly elevated at 4.9 and procalcitonin was 0.11. I did send blood cultures, but overall suspicion for sepsis is low at this time. He did have a cath urine spent sample, which showed 10-25 red blood cells 25-50 white blood cells. He does have this renal stent in place I talked with urology at [facility] for his stent was placed. I spoke with the resident there, Dr. Hayes, who reviewed his records, she felt that we could treat him here for urinary tract infection, she recommended Rocephin and vancomycin based on previous culture results to male. She did not feel that he required transfer based on the stent and known kidney stone. He is not having any flank or abdominal pain, and she agreed that imaging likely not necessary at this time. She did recommend imaging if he is not clinically improving with antibiotic treatment. Most notably in his labs, he was markedly hypokalemic hypocalcemic, and hypomagnesemic. I replaced his magnesium, 2 g IV, began potassium replacement with both sent oral dose of 25 mEq and 10 mEq aliquots of IV potassium, and I gave him calcium gluconate based on the severe nature of his hypocalcemia and the fact that a calcium checked several days ago according to his at [facility] was normal. He is however not significantly symptomatic, his QT is normal. EKG done on his arrival showed a sinus tachycardia with a ventricular rate of 119, corrected QT was 436 milliseconds. A lot of baseline artifact but no acute ST segment changes that I can see. I did order Rocephin and vancomycin for him, talked with the hospitalist and plan will be to bring him into the hospital here, low threshold for imaging and further urology consultation if he is not improving. MRI could be considered tomorrow if it seems that he has focal neurologic findings or neurologic status is worsening. For now, presentation seems more consistent with encephalopathy related to his multiple other medical problems. Vital Signs Vital signs: Initial Vital Signs Temperature 100.1 F H 04/27/25 17:39 Temperature Source Temporal Artery Scan 04/27/25 17:39 Pulse Rate 122 H 04/27/25 17:39 Respiratory Rate 20 04/27/25 17:39 Blood Pressure 145/99 H 04/27/25 17:39 Blood Pressure Mean 114 H 04/27/25 17:39 Blood Pressure Position Sitting 04/27/25 17:39 Pulse Oximetry 92 04/27/25 17:39 Oxygen Delivery Method Room Air 04/27/25 17:39 Vital Signs Temperature 100.1 F H 04/27/25 17:39 Pulse Rate 122 H 04/27/25 17:39 Respiratory Rate 20 04/27/25 17:39 Blood Pressure 145/99 H 04/27/25 17:39 Pulse Oximetry 92 04/27/25 17:39 Oxygen Delivery Method Room Air 04/27/25 17:39 Temperature 100.1 F H 04/27/25 17:39 Pulse Rate 103 H 04/27/25 23:15 Respiratory Rate 20 04/27/25 23:15 Blood Pressure 142/89 H 04/27/25 23:15 Pulse Oximetry 91 04/27/25 23:15 Oxygen Delivery Method Room Air 04/27/25 17:39 Medications Administered Medications: Discontinued Medications Generic Name Dose Route Start Last Admin Trade Name Freq PRN Reason Stop Dose Admin Sodium Chloride 500 mls @ 500 mls/hr 04/27/25 17:41 04/27/25 20:24 0.9 % Sodium Chloride 500 Ml IV 04/27/25 18:40 Infused .Q1H ONE Infusion Calcium Gluconate/Sodium Chloride 1,000 mg in 50 mls @ 100 mls/hr 04/27/25 19:17 04/27/25 20:56 Calcium Gluc 1,000mg/50 Ml IVPB 04/27/25 19:46 Infused ONCE ONE Infusion Magnesium Sulfate 2 gm in 50 mls @ 25 mls/hr 04/27/25 19:17 04/27/25 22:23 Magnesium Iv IVPB 04/27/25 21:16 Infused ONCE ONE Infusion Potassium Chloride 10 meq in 100 mls @ 100 mls/hr 04/27/25 21:15 04/27/25 23:23 Potassium Chloride IVPB 04/27/25 23:44 Infused Q90M JUAN MIGUEL Infusion Ceftriaxone Sodium 2 gm/ 100 mls @ 200 mls/hr 04/27/25 21:47 04/27/25 22:33 Sodium Chloride IVPB 04/27/25 21:48 Infused ONCE ONE Infusion Vancomycin/PEG/NADA/Lysine/Water 2 gm in 400 mls @ 200 mls/hr 04/27/25 21:47 04/27/25 22:27 Vancomycin 2 Gm/400 Ml IVPB 04/27/25 23:46 200 mls/hr ONCE ONE Administration Protocol Potassium Bicarbonate 25 meq 04/27/25 21:08 04/27/25 21:34 Potassium Bicarb 25 Meq Effervescent Tab PO 04/27/25 21:09 25 meq ONCE ONE Administration Medical Decision Making Lab Data Lab results reviewed: Yes I reviewed the patient's lab results Labs: Lab Results 04/27/25 04/27/25 04/27/25 Range/Units 18:10 18:30 20:30 WBC 6.28 (4.50-11.00) K/uL RBC 3.90 L (4.30-5.90) m/uL Hgb 10.7 L (13.5-17.5) gm/dL Hct 34.8 L (37.0-53.0) % MCV 89 (80-100) fL MCH 27 (26-34) pg MCHC 31 L (32-36) gm/dL RDW Coeff of Nas 15.5 (11.5-15.5) % Plt Count 229 (140-440) K/uL Neut % (Auto) 84.7 H (42.0-72.0) % Lymph % (Auto) 7.6 L (20-44) % Yell % (Auto) 7.3 (0.0-11.0) % Eos % (Auto) 0.0 (0.0-7.0) % Baso % (Auto) 0.2 (0.0-3.0) % Neut # (Auto) 5.30 (1.7-7.0) K/uL Lymph # (Auto) 0.50 L (0.90-2.90) K/uL Yell # (Auto) 0.50 (0.00-0.90) K/UL Eos # (Auto) 0.00 (0.00-0.50) K/uL Baso # (Auto) 0.01 (0.00-0.30) K/uL Abs Immat Gran (auto) 0.01 (0.00-0.30) K/uL Imm/Tot Granulo (auto) 0.2 % INR 1.51 H (0.91-1.10) Sodium 141 (135-149) mmol/L Potassium 2.6 L* (3.6-5.1) mmol/L Chloride 119 H (96-114) mmol/L Carbon Dioxide 17 L (20-32) mmol/L Anion Gap 5 L (7-15) mEq/L BUN 6 L (7-30) mg/dL Creatinine 0.4 L (0.5-1.5) mg/dL Estimated Creat Clear Estimated GFR 120 ml/min Glucose 62 (60-115) mg/dL Lactate 1.5 (0.5-1.9) mmol/L Calcium 5.3 L* (8.4-10.6) mg/dL Ionized Calcium Ruben 0.80 L (1.11-1.30) mmol/L Phosphorus 1.7 L (2.5-4.5) mg/dL Magnesium 1.2 L (1.5-2.6) mg/dL Total Bilirubin 0.4 (0.1-1.5) mg/dL Direct Bilirubin 0.1 (0.0-0.5) mg/dL AST 16 (12-35) U/L ALT 12 (4-50) U/L Alkaline Phosphatase 68 (40-150) U/L Total Creatine Kinase (54-186) U/L Troponin I < 0.01 (0.01-0.04) ng/mL C-Reactive Protein 4.9 H (0.5-1.0) mg/dL Total Protein 4.7 L (6.0-8.3) g/dL Albumin 2.1 L (3.3-5.0) g/dL Procalcitonin 0.11 (<0.50) ng/mL PTH Intact 111.9 H (14.2-75.2) pg/mL Urine Color Brown A (Yellow) Urine Appearance Cloudy A (Clear) Urine pH 7.0 (5.0-8.5) Ur Specific [place] 1.020 (1.000-1.030) Urine Protein 2+ A (Negative) Urine Glucose (UA) Negative (Negative) Urine Ketones Negative (Negative) Urine Blood 3+ A (Negative) Urine Nitrite Negative (Negative) Urine Bilirubin Negative (Negative) Urine Urobilinogen 0.2 (0.2-1.0) Ur Leukocyte Esterase 3+ A (Negative) Urine RBC 10-25 A (0-2) Urine WBC 25-50 A (0-5) Urine WBC Clumps Moderate A (None) Ur Squamous Epith Cells Few (None-Few) Urine Bacteria Many A (None) SARS-CoV-2 (PCR) Negative SARS-CoV-2 (Negative) Influenza Type A (PCR) Negative PCR FLU A (Negative) Influenza Type B (PCR) Negative PCR FLU B (Negative) RSV (PCR) Negative PCR RSV (Negative) 04/27/25 Range/Units 22:50 WBC (4.50-11.00) K/uL RBC (4.30-5.90) m/uL Hgb (13.5-17.5) gm/dL Hct (37.0-53.0) % MCV (80-100) fL MCH (26-34) pg MCHC (32-36) gm/dL RDW Coeff of Nas (11.5-15.5) % Plt Count (140-440) K/uL Neut % (Auto) (42.0-72.0) % Lymph % (Auto) (20-44) % Yell % (Auto) (0.0-11.0) % Eos % (Auto) (0.0-7.0) % Baso % (Auto) (0.0-3.0) % Neut # (Auto) (1.7-7.0) K/uL Lymph # (Auto) (0.90-2.90) K/uL Yell # (Auto) (0.00-0.90) K/UL Eos # (Auto) (0.00-0.50) K/uL Baso # (Auto) (0.00-0.30) K/uL Abs Immat Gran (auto) (0.00-0.30) K/uL Imm/Tot Granulo (auto) % INR (0.91-1.10) Sodium 136 (135-149) mmol/L Potassium 4.7 (3.6-5.1) mmol/L Chloride 106 (96-114) mmol/L Carbon Dioxide 23 (20-32) mmol/L Anion Gap 7 (7-15) mEq/L BUN 8 (7-30) mg/dL Creatinine 0.7 (0.5-1.5) mg/dL Estimated Creat Clear 79.76 Estimated GFR 102 ml/min Glucose 95 (60-115) mg/dL Lactate (0.5-1.9) mmol/L Calcium 8.6 (8.4-10.6) mg/dL Ionized Calcium Ruben (1.11-1.30) mmol/L Phosphorus 2.4 L (2.5-4.5) mg/dL Magnesium 2.7 H (1.5-2.6) mg/dL Total Bilirubin (0.1-1.5) mg/dL Direct Bilirubin (0.0-0.5) mg/dL AST (12-35) U/L ALT (4-50) U/L Alkaline Phosphatase (40-150) U/L Total Creatine Kinase 34 L (54-186) U/L Troponin I (0.01-0.04) ng/mL C-Reactive Protein (0.5-1.0) mg/dL Total Protein (6.0-8.3) g/dL Albumin (3.3-5.0) g/dL Procalcitonin (<0.50) ng/mL PTH Intact (14.2-75.2) pg/mL Urine Color (Yellow) Urine Appearance (Clear) Urine pH (5.0-8.5) Ur Specific [place] (1.000-1.030) Urine Protein (Negative) Urine Glucose (UA) (Negative) Urine Ketones (Negative) Urine Blood (Negative) Urine Nitrite (Negative) Urine Bilirubin (Negative) Urine Urobilinogen (0.2-1.0) Ur Leukocyte Esterase (Negative) Urine RBC (0-2) Urine WBC (0-5) Urine WBC Clumps (None) Ur Squamous Epith Cells (None-Few) Urine Bacteria (None) SARS-CoV-2 (PCR) (Negative) Influenza Type A (PCR) (Negative) Influenza Type B (PCR) (Negative) RSV (PCR) (Negative) Imaging Data CT scan - head: Attestation: I have reviewed the pertinent imaging results. Radiologist's impression: Patient: Dwain Ervin MR#: [id number] : 1960 Acct:[id number] Loc: ED Service Date: 04/27/[address]: Ordering Physician: Veronica Cobb M.D. Date of Service: 04/27/25 Procedure(s): CT head/brain wo con Accession Number(s): [id number] cc: Veronica Cobb M.D.; Wade Donovan M.D.~ For Patients: As a result of the 21st Century Cures Act, medical imaging exams and procedure reports are released immediately into your electronic medical record. You may view this report before your referring provider. If you have questions, please contact your health care provider. Indication: Slow speech possible right arm weakness, history of CVA Technique: Volumetric multidetector CT images of the head were obtained without the administration of low osmolar intravenous contrast. Comparison: CT head December 13, 2024 Findings: There is no intra-axial or extra-axial fluid collection. There is no mass effect or midline shift. There is age-related cortical atrophy with mild sulcal widening and ex vacuo dilatation of the lateral ventricles. Encephalomalacia of the left frontal lobe is again appreciated with moderate chronic small vessel disease changes of the subcortical and periventricular white matter. There is additional lacunar infarct changes of the left cerebellar hemisphere. Encephalomalacia of the left temporal pole is appreciated. There is moderate chronic small vessel disease change within the subcortical and periventricular white matter. Otherwise, the brain parenchyma is preserved in attenuation and meza-white differentiation. The orbits and their contents are grossly within normal limits. Postoperative change of the frontal bone status post bifrontal craniotomy is appreciated. There is minimal polypoid mucosal thickening appreciated within the ethmoid air cells. The mastoid air cells are well aerated. Impression: 1. Stable postoperative changes and remote ischemic changes of the brain without acute intracranial abnormality. Please note that all CT scans at this facility use dose modulation, iterative reconstruction, and/or weight-based dosing when appropriate to reduce radiation dose to as low as reasonably achievable. Dictated by Abdoulaye Chan MD @ 04/27/2025 8:01:57 PM Patient: DWAIN ERVIN Facility: [facility] Site . Site : 1960 Study: CT-Neck Angio Angio 95CC ISOVUE 370 NON ACUTE-04/27/2025 7:49:12 PM Ordering Physician: Reza Martin Preliminary Report: The thoracic aorta is nonaneurysmal with minimal scattered atherosclerotic calcification. Patent common carotid arteries. No significant atherosclerotic plaque of the carotid bifurcations to suggest high-grade stenosis according to the NASCET criteria. Mild asymmetry of the distal right greater than left internal carotid arteries without obvious filling defect. Dominant right and hypoplastic left vertebral arteries, patent throughout their lengths. Dictated by Abdoulaye Chan MD @ 04/27/2025 8:08:16 PM Read by: Abdoulaye Chan MD @04/27/2025 8:08:18 PM Chest x-ray: Attestation: I have reviewed the pertinent imaging results. Radiologist's impression: Patient: Dwain Ervin MR#: [id number] : 1960 Acct:[id number] Loc: ED Service Date: 04/27/[address]: Ordering Physician: Veronica Cobb M.D. Date of Service: 04/27/25 Procedure(s): XR chest 1V Accession Number(s): [id number] cc: Veronica Cobb M.D.; Wade Donovan M.D.~ For Patients: As a result of the Cures Act, medical imaging exams and procedure reports are released immediately into your electronic medical record. You may view this report before your referring provider. If you have questions, please contact your health care provider. INDICATION: Fever. TECHNIQUE: Chest 1 view. COMPARISON: October 28, 2023. FINDINGS: Cardiovascular and mediastinum: Cardiomediastinal silhouette is within normal limits. Lungs and pleural spaces: Perihilar interstitial opacities and peribronchial cuffing. No evidence of pleural effusion. No pneumothorax identified. Bones and soft tissues: Unremarkable. IMPRESSION: Perihilar interstitial opacities and peribronchial cuffing, can be seen in the setting of viral illness or other airways disease. Dictated by Jeimy Wayne MD @ 04/27/2025 7:58:46 PM Discharge Plan Discharge Clinical Impression: Delirium due to general medical condition, Urinary tract infection, Hypocalcemia, Acute hypokalemia, Hypomagnesemia Patient Disposition: Admitted As Inpatient Condition: Stable
[2025-04-27 18:19] LABS: Hematocrit* 34.8 % (37.0-53.0); Hemoglobin* 10.7 gm/dL (13.5-17.5); Immature Granulocytes Abs Auto 0.01 K/uL (0.00-0.30); Immature Granulocytes Pct Auto 0.2 %; Lactate Sepsis w/Reflex* 1.5 mmol/L (0.5-1.9); Mean Corpuscular HGB Conc 31 gm/dL (32-36); Mean Corpuscular Hemoglobin 27 pg (26-34); Mean Corpuscular Volume 89 fL (80-100); RDW Coefficient of Variation % 15.5 % (11.5-15.5); Red Blood Count* 3.90 m/uL (4.30-5.90); White Blood Count* 6.28 K/uL (4.50-11.00)
[2025-04-27 18:33] LABS: Albumin* 2.1 g/dL (3.3-5.0); Chloride* 119 mmol/L (96-114); Sodium* 141 mmol/L (135-149)
[2025-04-27 18:36] LABS: Alanine Aminotransferase* 12 U/L (4-50); Alkaline Phosphatase* 68 U/L (40-150); Anion Gap 5 mEq/L (7-15); Aspartate Amino Transferase* 16 U/L (12-35); Bilirubin Direct* 0.1 mg/dL (0.0-0.5); Bilirubin Total* 0.4 mg/dL (0.1-1.5); Blood Urea Nitrogen* 6 mg/dL (7-30); Carbon Dioxide* 17 mmol/L (20-32); Creatinine* 0.4 mg/dL (0.5-1.5); Estimated Glomerular Filt Rate 120 ml/min; INR 1.51 (0.91-1.10); Prothrombin Time 19.2 Seconds; Total Protein* 4.7 g/dL (6.0-8.3)
[2025-04-27 18:37] LABS: Glucose* 62 mg/dL (60-115)
[2025-04-27] MEDS: 0.9 % SODIUM CHLORIDE 500 ML 500 ML IV (18:46)
[2025-04-27 18:53] LABS: Procalcitonin* 0.11 ng/mL (<0.50)
[2025-04-27 18:54] LABS: Lymphocytes Absolute Auto 0.50 K/uL (0.90-2.90); Slide Review Reflex No
[2025-04-27 19:06] LABS: Calcium* 5.3 mg/dL (8.4-10.6); Potassium* 2.6 mmol/L (3.6-5.1)
[2025-04-27 19:35] LABS: Ionized Calcium* 0.80 mmol/L (1.11-1.30)
[2025-04-27 20:02] LABS: PTH Intact* 111.9 pg/mL (14.2-75.2)
[2025-04-27 20:10] LABS: Appearance Urine Cloudy (Clear)
[2025-04-27] MEDS: CALCIUM GLUC 1,000MG/50 ML 1,000 MG/50 ML BAG 100 MG IVPB (20:11)
[2025-04-27] MEDS: MAGNESIUM IV 2 GM/50 ML PIGGYBACK IVPB (20:12)
[2025-04-27 21:11] LABS: PCR FLU A Negative PCR FLU A (Negative); PCR FLU B Negative PCR FLU B (Negative); PCR RSV Negative PCR RSV (Negative); SARS PCR* Negative SARS-CoV-2 (Negative)
[2025-04-27] MEDS: POTASSIUM BICARB 25 MEQ EFFERVESCENT TAB PO (21:34)
[2025-04-27] MEDS: POTASSIUM CHLORIDE 10 MEQ/100 ML PIGGYBACK 100 MEQ IVPB ×2 (21:35→22:02)
[2025-04-27] MEDS: cefTRIAXone 2 GM in 0.9 % SODIUM CHLORIDE Mini-bag 100 ML IVPB (21:58)
[2025-04-27] MEDS: VANCOMYCIN 2 GM/400 ML 2 GM/400 ML PIGGYBACK IVPB (22:27)
[2025-04-27 23:11] LABS: Chloride* 106 mmol/L (96-114); Potassium* 4.7 mmol/L (3.6-5.1); Sodium* 136 mmol/L (135-149)
[2025-04-27 23:14] LABS: Anion Gap 7 mEq/L (7-15); Blood Urea Nitrogen* 8 mg/dL (7-30); Carbon Dioxide* 23 mmol/L (20-32); Creatine Kinase* 34 U/L (54-186); Creatinine* 0.7 mg/dL (0.5-1.5); Est. Creatinine Clearance* 79.76; Estimated Glomerular Filt Rate 102 ml/min
[2025-04-27 23:15] VITALS: BP 142/89; PULSE 103; RESP 20; O2SAT 91
[2025-04-27 23:15] LABS: Calcium* 8.6 mg/dL (8.4-10.6); Glucose* 95 mg/dL (60-115)
[2025-04-28] VITALS (9 sets, daily range): BP systolic 90–142; BP diastolic 57–92; PULSE 86–110; RESP 16–34; TEMP 36.6–37; O2SAT 90–92
--- NOTE | 2025-04-28 00:06 | P.IMHP_ITS ---
Assessment and Plan Assessment and plan (1) Toxic metabolic encephalopathy: Problem comment: - sudden onset, resolved with IV fluid rehydration, electrolyte correction, IV antibiotic initiation Status: Acute (2) Urinary tract infection: Problem comment: - abnormal urine analysis, urine culture pending, blood culture pending Status: Acute (3) Delirium due to general medical condition: Problem comment: - improved with initial stabilization efforts Status: Acute (4) Hypomagnesemia: Problem comment: - improved with magnesium supplementation - etiology not clear Status: Acute (5) Acute hypokalemia: Problem comment: - improved with potassium supplementation - etiology not clear, possibly related to low magnesium Status: Acute (6) Hypocalcemia: Problem comment: - improved with calcium supplementation - etiology not clear, differential includes chronic kidney disease associated hyperparathyroidism, vitamin-D deficiency Status: Acute (7) Neurogenic bowel: Status: Acute (8) Multiple sclerosis: Problem comment: - Spastic quadriparesis, wheelchair dependent - neurogenic bladder - incontinent of stool - baclofen scheduled for muscle spasms Status: Acute (9) Neurogenic bladder: Problem comment: - Anyi catherizes at home Status: Acute (10) History of pulmonary embolism: Problem comment: - on chronic warfarin therapy. Subtherapeutic INR upon admission, pharmacy consult placed to dose Warfarin during stay Status: Acute (11) Anticoagulated on Coumadin: Problem comment: Entered pharmacy consult, daily INR. Status: Acute (12) Nephrolithiasis: Problem comment: has had multiple procedures (cysto, lithotripsy, stent, dilation) Status: Acute Plan 1. Reviewed impression with patient, , emergency department physician 2. Emergency department physician spoke with urologist at [place] who suggested that we continue to address the electrolyte abnormalities and initiate treatment for UTI with ceftriaxone and vancomycin IV, that we call them back if condition worsens or not improves 3. Answered patient's questions and 's questions to their satisfaction Number for they are agreeable with above stated plans and recommendations Total Time Spent Total Time Spent: 70 minutes Hospitalist- H&P: HPI History of Present Illness Date Seen: 04/28/25 Chief complaint: Altered mental status Narrative: Dwain Hinds is a 64 year old man presents with sudden altered mental status. He was in his usual state of health until this morning according to his . He has multiple sclerosis with neurogenic bladder neurogenic bowel. Has chronic suprapubic catheter in place. Requires daily bowel regimen and intermittent digital stimulation for bowel evacuation. Undergoing extensive assessments and interventions at the [facility], [place], [place], related to nephro ureteral lithiasis. Had lithotripsy and ureteral stent placement couple of months ago. Has had hematuria since then. Has been evaluated for this at the [facility] and was told this is to be expected in his situation and condition. Is scheduled for additional assessments and possible additional lithotripsy in mid May 2025. In preparation for this May 15 appointment he had laboratory studies drawn on 04/24/2025, at which time his serum potassium is 4.5, calcium was 8.9, albumin 3.4, and magnesium not reported. Urine Gram stain in late March 2025 remarkable for Gram-positive bacilli. On awakening this morning he seemed more confused. He has minimal use of upper right upper extremity and almost no use of upper left extremity. This morning he high had hardly any use of the right upper extremity. brought him in concerned that he might have had a stroke. By the time he arrived here he had usual use of his right upper extremity. He was more somnolent and more confused today the when at home. On assessment in the emergency department was found to similarly be less interactive. After IV fluids and electrolytes stabilization his mentation normalized. Reportedly his mentation rapidly changes as such when he presents with urinary tract infections and early sepsis. Review of Systems Status of ROS: Reports: 6 or more systems reviewed and unremarkable except as noted in History and below Medical Decision Making Medical Decision Making Code Status: Full resuscitation in event of cardiopulmonary demise. Has patient completed a Health Care Directive: Yes During This Stay, Who Would You Like To Make Decisions For You In The Event You Are Unable To Make Them For Yourself?: His , Anyi, . [facility] Medical History (Updated 04/28/25 @ 00:23 by Andresa Fischer MD) Nephrolithiasis ?N20.0 - Calculus of kidney (ICD-10) Multiple sclerosis ?G35 - Multiple sclerosis (ICD-10) Anticoagulated on Coumadin ?Z79.01 - group home (current) use of anticoagulants (ICD-10) History of pulmonary embolism ?Z86.711 - Personal history of pulmonary embolism (ICD-10) Neurogenic bladder ?N31.9 - Neuromuscular dysfunction of bladder, unspecified (ICD-10) Encephalomalacia on imaging study ?G93.89 - Other specified disorders of brain (ICD-10) Meningioma ?D32.9 - Benign neoplasm of meninges, unspecified (ICD-10) Femur fracture ?S72.90XA - Unspecified fracture of unspecified femur, initial encounter for closed fracture (ICD-10) Hyperlipidemia ?E78.5 - Hyperlipidemia, unspecified (ICD-10) Surgical History S/P ORIF (open reduction internal fixation) fracture ?Z98.890 - Other specified postprocedural states (ICD-10) ?Z87.81 - Personal history of (healed) traumatic fracture (ICD-10) History of genitourinary surgery ?Z98.890 - Other specified postprocedural states (ICD-10) History of tonsillectomy and adenoidectomy ?Z90.89 - Acquired absence of other organs (ICD-10) Family History Mother Colon cancer COPD (chronic obstructive pulmonary disease) Father Heart disease Social History Narrative: Lives with Maida in [place]; she is primary mall plant caretaker and would be medical decision maker if needed. Adult children. 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 Former smoker. What is your current living situation?: I presently have a place to live Problems where you live: no known problems Problems where you live details: N/A In the past 12 months, utilities in danger of being shut off: no In past 12 months, lack of transportation kept you from medical appts, meetings, work, or getting things needed for daily living: no In the past 12 mos, have been you worried that your food would run out before you had money to buy more?: never true In the past 12 mos, the food you bought just didn't last and you didn't have money to buy more?: never true Highest level of school completed/degree received: high school graduate Smoking Status: Never smoker Do you use any of these nicotine containing products: None Second hand tobacco smoke exposure: No How often do you have a drink containing alcohol: never How many standard drinks containing alcohol do you have on a typical day: 1 or 2 How often do you have six or more drinks on one occasion: Never AUDIT-C Alcohol total score: 0 Non-prescribed substance use: denies use Caffeine: No How often does anyone, including family, friends and others, physically hurt you : never How often does anyone, including family, friends and others, insult or talk down to you: never How often does anyone, including family, friends and others, threaten you with harm: never How often does anyone, including family, friends and others, scream or curse at you: never service: No Meds Home Medications and Allergies Home Medications ?Medication ?Instructions ?Recorded ?Confirmed ?Type atorvastatin 20 mg tablet 20 mg PO QHS 10/03/22 History warfarin 2 mg tablet 2 mg PO SUTUTHSA@10/03/22 12/13/24 History warfarin 4 mg tablet 4 mg PO MOWEFR@10/03/22 0 12/13/24 History oxybutynin chloride 5 mg tablet 5 mg PO BID 02/05/23 0 12/13/24 History baclofen 10 mg tablet 10 - 20 mg PO BID 02/06/23 0 12/13/24 History sennosides 25 mg tablet 25 mg PO HS 10/28/23 5 History naphazoline 0.025 %-pheniramine 1 drp ophthalmic (eye) DAILY 10/29/23 12/13/24 History 0.3 % eye drops (Naphcon-A) amoxicillin 875 mg tablet 875 mg PO Q12H #10 tabs 10/0312/13/24 Rx Allergies Allergy/AdvReac Type Severity Reaction Status Date / Time bee venom protein (honey bee) Allergy Verified 12/13/24 14:06 Exam Narrative: Exam Narrative: I examine him in the emergency department. When I examine him he is awake and interactive. Still somewhat slow to respond to questions. Friendly, articulate, cooperative. Oriented to self, place, not so much to time but reasonably oriented to situation. Vision and hearing are adequate. No icterus. Conjugate gaze. Midline nasal septum. Dry buccal mucosa. Dentition fair repair. Neck is supple. No nuchal rigidity. Lungs are clear to auscultation. Heart tones with regular rhythm. Abdomen with active bowel sounds, soft, nontender. Skin without rashes, ulcers, petechiae, cyanosis. Chronic limited use of left upper extremity with advanced flexion contractures. Chronic limited use of both lower extremities. Chronic minimal use of right upper extremity. Const: Vital Signs, click to edit/add: Vital Signs - 24 hr 04/27/25 17:39 04/27/25 23:15 Temperature 100.1 F H Pulse Rate 103 H Pulse Rate [Pulse Oximeter] 122 H Respiratory Rate 20 20 Blood Pressure 142/89 H Blood Pressure [Le ft Upper Arm] 145/99 H Pulse Oximetry 92 91 Oxygen Delivery Me thod Room Air Hospitalist - H&P: Result Labs Labs: Short CBC 04/27/25 Range/Units 18:10 WBC 6.28 (4.50-11.00) K/uL Hgb 10.7 L (13.5-17.5) gm/dL Hct 34.8 L (37.0-53.0) % Plt Count 229 (140-440) K/uL BMP 04/27/25 04/27/25 18:10 22:50 Sodium 141 136 Potassium 2.6 L* 4.7 Chloride 119 H 106 Carbon Dioxide 17 L 23 BUN 6 L 8 Creatinine 0.4 L 0.7 Glucose 62 95 Calcium 5.3 L* 8.6 Cardiac Enzymes 04/27/25 04/27/25 Range/Units 18:10 22:50 Total Creatine Kinase 34 L (54-186) U/L Troponin I < 0.01 (0.01-0.04) ng/mL Liver Function 04/27/25 Range/Units 18:10 Total Bilirubin 0.4 (0.1-1.5) mg/dL Direct Bilirubin 0.1 (0.0-0.5) mg/dL AST 16 (12-35) U/L ALT 12 (4-50) U/L Alkaline Phosphatase 68 (40-150) U/L Albumin 2.1 L (3.3-5.0) g/dL Urine 04/27/25 Range/Units 18:30 Urine Color Brown A (Yellow) Urine Appearance Cloudy A (Clear) Urine pH 7.0 (5.0-8.5) Ur Specific [place] 1.020 (1.000-1.030) Urine Protein 2+ A (Negative) Urine Glucose (UA) Negative (Negative) Imaging CT scan - head: Attestation: I have reviewed the pertinent imaging results. Radiologist's impression: No acute intracranial abnormality CT scan - angiogram of head and neck: Attestation: I have reviewed the pertinent imaging results. Radiologist's impression: No acute abnormality Chest x-ray: Attestation: I have reviewed the pertinent imaging results. Radiologist's impression: IMPRESSION: Perihilar interstitial opacities and peribronchial cuffing, can be seen in the setting of viral illness or other airways disease.
[2025-04-28 06:42] LABS: Hematocrit* 45.1 % (37.0-53.0); Hemoglobin* 14.3 gm/dL (13.5-17.5); Mean Corpuscular HGB Conc 32 gm/dL (32-36); Mean Corpuscular Hemoglobin 28 pg (26-34); Mean Corpuscular Volume 87 fL (80-100); Red Blood Count* 5.17 m/uL (4.30-5.90); White Blood Count* 7.89 K/uL (4.50-11.00)
[2025-04-28 06:46] LABS: Slide Review Reflex No
[2025-04-28 06:54] LABS: Chloride* 106 mmol/L (96-114)
[2025-04-28 06:55] LABS: INR 1.14 (0.91-1.10); Potassium* 3.9 mmol/L (3.6-5.1); Prothrombin Time 15.5 Seconds; Sodium* 135 mmol/L (135-149)
[2025-04-28 06:57] LABS: Blood Urea Nitrogen* 8 mg/dL (7-30); Creatinine* 0.7 mg/dL (0.5-1.5); Est. Creatinine Clearance* 79.76; Estimated Glomerular Filt Rate 102 ml/min
[2025-04-28 06:58] LABS: Anion Gap 7 mEq/L (7-15); Calcium* 8.5 mg/dL (8.4-10.6); Carbon Dioxide* 22 mmol/L (20-32); Cholesterol* 134 mg/dL (90-199); Glucose* 100 mg/dL (60-115); HDL Cholesterol* 32 mg/dL (>=40); Triglycerides* 62 mg/dL (40-149)
--- NOTE | 2025-04-28 07:03 | PC.NURSE ---
Pt arrived to the floor at 2355, alert and oriented to self. Pt has hx of MS. VSS, though pt slightly tachy throughout shift, under 110. Turned and repoed throughout shift. Heavy 2a. Pt in bed, appears to be resting, call light within reach.? ?
[2025-04-28 09:10] LABS: Vitamin D 25 Hydroxy* 18 ng/mL (30-80)
--- NOTE | 2025-04-28 09:23 | REH.PT ---
PT Eval and Treat orders received. Pt is w/c bound and uses a moon lift for all transfers. No PT needs per pts spouse. D/c PT.
[2025-04-28] MEDS: BACLOFEN 10 MG TABLET PO ×3 (09:32→20:40)
[2025-04-28] MEDS: SODIUM CHLORIDE 0.9 % (FLUSH) 10 ML SYRINGE 5 ML IVF ×2 (09:35→20:42)
[2025-04-28] MEDS: VANCOMYCIN 1.25 GM/250 ML 1.25 GM/250 ML PIGGYBACK IVPB ×2 (10:21→22:07)
--- NOTE | 2025-04-28 11:08 | REH.OT ---
Pt has long history of MS. Pt. is w/c bound at baseline and transfers w/ ceiling ligt at home. His is his primary caregiver. Pt. uses R hand w/ Limited dexterity and adaptive equipment to feed himself. Pt. given foam tubing for utensils for meals. Pt has HEP and was given green sponge for hand exercises while hospitalized. Pt. dependent for ADLs w/ exception of feeding himself.
[2025-04-28] MEDS: APIXABAN 5 MG TABLET PO ×2 (13:01→20:39)
--- NOTE | 2025-04-28 16:20 | PM.IMPN1 ---
Assessment and Plan Assessment and plan (1) Toxic metabolic encephalopathy: Problem comment: - sudden onset, resolved with IV fluid rehydration, electrolyte correction, IV antibiotic initiation Status: Acute (2) Urinary tract infection: Problem comment: - abnormal urine analysis, urine culture pending, blood culture pending Status: Acute (3) Hypocalcemia: Problem comment: - improved with calcium supplementation - etiology not clear, differential includes chronic kidney disease associated hyperparathyroidism, vitamin-D deficiency . Vitamin-D deficiency most likely Status: Acute (4) Acute hypokalemia: Problem comment: - improved with potassium supplementation - etiology not clear, possibly related to low magnesium Status: Acute (5) Hypomagnesemia: Problem comment: - improved with magnesium supplementation - etiology not clear Status: Acute (6) Hypophosphatemia: Problem comment: Probably due to vitamin-D deficiency Status: Acute (7) Vitamin D deficiency: Problem comment: Recommend consultation with endocrinology or Nephrology at [facility] due to vitamin-D deficiency with hypocalcemia and also recurrent nephrolithiasis Status: Acute (8) Multiple sclerosis: Problem comment: - Spastic quadriparesis, wheelchair dependent - neurogenic bladder - incontinent of stool - baclofen scheduled for muscle spasms Status: Acute (9) Neurogenic bladder: Problem comment: - Anyi catherizes at home. Saenz catheter here Status: Acute (10) Neurogenic bowel: Status: Acute (11) Chronic anticoagulation: Problem comment: On apixaban 5 mg twice daily for history of PE Status: Acute (12) History of pulmonary embolism: Problem comment: - on chronic anticoagulation. Previously on warfarin now on apixaban Status: Acute (13) Nephrolithiasis: Problem comment: has had multiple procedures (cysto, lithotripsy, stent, dilation). Ongoing management at [facility] with repeat lithotripsy on May 15 Status: Acute Plan Continue inpatient management with IV antibiotics, close monitoring of multiple electrolyte abnormalities. This abated discharge to home with when mental status is back to baseline and appropriate outpatient antibiotic therapy is identified Total Time Spent Total Time Spent: Total time spent today is 65 minutes in coordination of care, reviewing outside records, discussion with patient and other providers ongoing management of multiple problems above Subjective Date Seen: 04/28/25 Interval history: Dwain Hinds is a 64 year old man presents with sudden altered mental status. He was in his usual state of health until this morning according to his . He has multiple sclerosis with neurogenic bladder neurogenic bowel. Has chronic suprapubic catheter in place. Requires daily bowel regimen and intermittent digital stimulation for bowel evacuation. Undergoing extensive assessments and interventions at the [facility], [place], [place], related to nephro ureteral lithiasis. Had lithotripsy and ureteral stent placement couple of months ago. Has had hematuria since then. Has been evaluated for this at the [facility] and was told this is to be expected in his situation and condition. Is scheduled for additional assessments and possible additional lithotripsy in mid May 2025. In preparation for this May 15 appointment he had laboratory studies drawn on 04/24/2025, at which time his serum potassium is 4.5, calcium was 8.9, albumin 3.4, and magnesium not reported. Urine Gram stain in late March 2025 remarkable for Gram-positive bacilli. On awakening this morning he seemed more confused. He has minimal use of upper right upper extremity and almost no use of upper left extremity. This morning he high had hardly any use of the right upper extremity. brought him in concerned that he might have had a stroke. By the time he arrived here he had usual use of his right upper extremity. He was more somnolent and more confused today the when at home. On assessment in the emergency department was found to similarly be less interactive. After IV fluids and electrolytes stabilization his mentation normalized. Reportedly his mentation rapidly changes as such when he presents with urinary tract infections and early sepsis. 04/28/2025: Patient seen this morning and able to give some minimal history. Additional history is obtained from his who is his primary caregiver. She indicates that he is substantially better today though not quite back to baseline mental status. We reviewed his history of recent lithotripsy and hematuria. Doctors at [facility] had reduced his vitamin-D supplementation due to kidney stone formation. He remains vitamin-D deficient and I have recommended correcting his vitamin-D in an attempt to resolve his multiple other electrolyte problems including low calcium and phosphorus and possibly low magnesium as well. Patient reports no new concerns today. We reviewed his medications in some detail. He is currently on apixaban rather than warfarin. Other medications also reviewed. Exam Narrative: Exam Narrative: He is alert and appears in no distress. He speaks slowly. He is oriented to his circumstances. Unable to give much detail history of recent events. Head without trauma. Eyes normal. Oropharynx with dry mucous membranes. Neck is supple without mass or adenopathy. respirations are clear to auscultation. Breathing is unlabored. Cardiovascular: S1, S2, regular rate and rhythm. Abdomen: Bowel sounds active. Abdomen is soft without tenderness or mass. Saenz catheter in place draining a tea-colored urine. Extremities without obvious trauma. He moves his right upper extremity with slow and somewhat clumsy motion. Minimal voluntary motion of left upper extremity and both feet and legs. He has clonus with passive motion of his left foot and ankle. Const: Vital Signs, click to edit/add: Vital Signs - 24 hr 04/27/25 17:39 04/27/25 23:15 04/28/25 00:00 Temperature 100.1 F H 98.1 F Pulse Rate 103 H Pulse Rate [Pulse Oximeter] 122 H 104 H Respiratory Rate 20 20 16 Blood Pressure 142/89 H Blood Pressure [Le ft Arm] 142/92 H Blood Pressure [Le ft Upper Arm] 145/99 H Blood Pressure [Ri ght Arm] Pulse Oximetry 92 91 [facility] 04/28/25 00:00 04/28/25 03:00 04/28/25 07:00 Temperature 98 F Pulse Rate Pulse Rate [Pulse Oximeter] 106 H 104 H Respiratory Rate 16 20 34 H Blood Pressure Blood Pressure [Le ft Arm] 128/80 Blood Pressure [Le ft Upper Arm] Blood Pressure [Ri ght Arm] Pulse Oximetry 92 90 [facility] Room Air 04/28/25 07:00 04/28/25 07:00 04/28/25 11:00 Temperature 98.6 F 98.2 F Pulse Rate Pulse Rate [Pulse Oximeter] 110 H 109 H Respiratory Rate 34 H 34 H 30 H Blood Pressure Blood Pressure [Le ft Arm] 127/81 90/57 L Blood Pressure [Le ft Upper Arm] Blood Pressure [Ri ght Arm] 96/70 Pulse Oximetry 92 90 90 [facility] Room Air Room Air 04/28/25 13:00 04/28/25 15:00 04/28/25 15:00 Temperature Pulse Rate Pulse Rate [Pulse Oximeter] 109 H Respiratory Rate 24 24 Blood Pressure Blood Pressure [Le ft Arm] 103/68 Blood Pressure [Le ft Upper Arm] Blood Pressure [Ri ght Arm] Pulse Oximetry 91 [facility] 04/28/25 15:00 Temperature Pulse Rate Pulse Rate [Pulse Oximeter] 109 H Respiratory Rate 24 Blood Pressure Blood Pressure [Le ft Arm] Blood Pressure [Le ft Upper Arm] Blood Pressure [Ri ght Arm] 120/76 Pulse Oximetry 91 Oxygen Delivery Me thod Room Air Documenting provider has reviewed patient's vital signs: yes Labs Labs: Laboratory Results - last 24 hr 04/27/25 04/27/25 04/27/25 18:10 18:30 20:30 WBC 6.28 RBC 3.90 L Hgb 10.7 L Hct 34.8 L MCV 89 MCH 27 MCHC 31 L RDW Coeff of Nas 15.5 Plt Count 229 Neut % (Auto) 84.7 H Lymph % (Auto) 7.6 L [place] % (Auto) 7.3 Eos % (Auto) 0.0 Baso % (Auto) 0.2 Neut # (Auto) 5.30 Lymph # (Auto) 0.50 L [place] # (Auto) 0.50 Eos # (Auto) 0.00 Baso # (Auto) 0.01 Abs Immat Gran (auto) 0.01 Imm/Tot Granulo (auto) 0.2 INR 1.51 H Sodium 141 Potassium 2.6 L* Chloride 119 H Carbon Dioxide 17 L Anion Gap 5 L BUN 6 L Creatinine 0.4 L Estimated Creat Clear Estimated GFR 120 Glucose 62 Lactate 1.5 Calcium 5.3 L* Ionized Calcium Ruben 0.80 L Phosphorus 1.7 L Magnesium 1.2 L Total Bilirubin 0.4 Direct Bilirubin 0.1 AST 16 ALT 12 Alkaline Phosphatase 68 Total Creatine Kinase Troponin I < 0.01 C-Reactive Protein 4.9 H Total Protein 4.7 L Albumin 2.1 L Triglycerides Cholesterol LDL Cholesterol, Calc HDL Cholesterol 25-OH Vitamin D Total Procalcitonin 0.11 PTH Intact 111.9 H Urine Color Brown A Urine Appearance Cloudy A Urine pH 7.0 Ur Specific [place] 1.020 Urine Protein 2+ A Urine Glucose (UA) Negative Urine Ketones Negative Urine Blood 3+ A Urine Nitrite Negative Urine Bilirubin Negative Urine Urobilinogen 0.2 Ur Leukocyte Esterase 3+ A Urine RBC 10-25 A Urine WBC 25-50 A Urine WBC Clumps Moderate A Ur Squamous Epith Cells Few Urine Bacteria Many A SARS-CoV-2 (PCR) Negative SARS-CoV-2 Influenza Type A (PCR) Negative PCR FLU A Influenza Type B (PCR) Negative PCR FLU B RSV (PCR) Negative PCR RSV Lab Acknowledgement 04/27/25 04/28/25 04/28/25 22:50 06:06 08:31 WBC 7.89 RBC 5.17 Hgb 14.3 Hct 45.1 MCV 87 MCH 28 MCHC 32 RDW Coeff of Nas Plt Count 288 Neut % (Auto) Lymph % (Auto) [place] % (Auto) Eos % (Auto) Baso % (Auto) Neut # (Auto) Lymph # (Auto) [place] # (Auto) Eos # (Auto) Baso # (Auto) Abs Immat Gran (auto) Imm/Tot Granulo (auto) INR 1.14 H Sodium 136 135 Potassium 4.7 3.9 Chloride 106 106 Carbon Dioxide 23 22 Anion Gap 7 7 BUN 8 8 Creatinine 0.7 0.7 Estimated Creat Clear 79.76 79.76 Estimated GFR 102 102 Glucose 95 100 Lactate Calcium 8.6 8.5 Ionized Calcium Ruben Phosphorus 2.4 L Magnesium 2.7 H 2.5 Total Bilirubin Direct Bilirubin AST ALT Alkaline Phosphatase Total Creatine Kinase 34 L Troponin I C-Reactive Protein Total Protein Albumin Triglycerides 62 Cholesterol 134 LDL Cholesterol, Calc 90 HDL Cholesterol 32 L 25-OH Vitamin D Total 18 L Procalcitonin PTH Intact Urine Color Urine Appearance Urine pH Ur Specific [place] Urine Protein Urine Glucose (UA) Urine Ketones Urine Blood Urine Nitrite Urine Bilirubin Urine Urobilinogen Ur Leukocyte Esterase Urine RBC Urine WBC Urine WBC Clumps Ur Squamous Epith Cells Urine Bacteria SARS-CoV-2 (PCR) Influenza Type A (PCR) Influenza Type B (PCR) RSV (PCR) Lab Acknowledgement Test Added
--- NOTE | 2025-04-28 18:26 | PC.NURSE ---
Nursing Care Hours: [id number] Pt this shift alert and oriented to self. Can not tell me what building we are in or what the date it is. No c/o pain. Hypotensive one episode bilat arms while up in chair, asymptomatic, hospitalist updated with VS. Pt afebrile, tachycardic and tachypneic. Foely patent, with cloudy dark urine. Drinking sufficiently. Total assist with meals and fluid intake. Pt reported noticing left big toe swelling in size. policy writer sales compared R and L big toes and does not appear different in size. Minimally larger foot compared to R. SCD foot cuffs applied and leg elevated. Palpated foot and not tenderness or redness noted.
[2025-04-28] MEDS: SENNOSIDES 1 TAB TABLET 3 TAB PO (20:39)
[2025-04-28] MEDS: cefTRIAXone 2 GM in 0.9 % SODIUM CHLORIDE Mini-bag 100 ML IVPB (20:41)
[2025-04-29 04:14] VITALS: BP 122/76; PULSE 93; RESP 22; TEMP 36.6; O2SAT 90
[2025-04-29 06:56] LABS: Ionized Calcium* 1.08 mmol/L (1.11-1.30); Lactate* 0.5 mmol/L (0.5-1.9)
[2025-04-29 07:00] VITALS: BP 113/87; PULSE 93; PULSE 97; RESP 18; TEMP 36.6; O2SAT 93
[2025-04-29 07:01] LABS: Hematocrit* 42.0 % (37.0-53.0); Hemoglobin* 13.5 gm/dL (13.5-17.5); Immature Granulocytes Abs Auto 0.01 K/uL (0.00-0.30); Immature Granulocytes Pct Auto 0.1 %; Lymphocytes Absolute Auto 0.80 K/uL (0.90-2.90); Mean Corpuscular HGB Conc 32 gm/dL (32-36); Mean Corpuscular Hemoglobin 28 pg (26-34); Mean Corpuscular Volume 87 fL (80-100); RDW Coefficient of Variation % 15.3 % (11.5-15.5); Red Blood Count* 4.82 m/uL (4.30-5.90); White Blood Count* 7.54 K/uL (4.50-11.00)
[2025-04-29 07:04] LABS: Slide Review Reflex No
[2025-04-29 07:22] LABS: Chloride* 105 mmol/L (96-114); Potassium* 3.8 mmol/L (3.6-5.1); Sodium* 135 mmol/L (135-149)
[2025-04-29 07:24] LABS: Blood Urea Nitrogen* 9 mg/dL (7-30); Creatinine* 0.6 mg/dL (0.5-1.5); Est. Creatinine Clearance* 79.76; Estimated Glomerular Filt Rate 106 ml/min
[2025-04-29 07:25] LABS: Anion Gap 5 mEq/L (7-15); Carbon Dioxide* 25 mmol/L (20-32); INR 1.22 (0.91-1.10); Prothrombin Time 16.3 Seconds
[2025-04-29 07:26] LABS: Calcium* 8.5 mg/dL (8.4-10.6); Glucose* 111 mg/dL (60-115)
--- NOTE | 2025-04-29 07:34 | PC.NURSE ---
End of shift report:: At the beginning of the shift pt HR was tachy at 107 and tachypneic at 26, MD Merrill notified, see orders. Upon reassessment pts HR was 86 and respirations 20. Pt denies pain. Afebrile. Saenz is intact and patent. Pt is tolerating repositioning in bed overnight. Bed alarm on, call light within reach.?
[2025-04-29 07:37] LABS: NT Pro B Type NatriureticPept* 511 pg/mL (See Note)
[2025-04-29] MEDS: APIXABAN 5 MG TABLET PO (09:17)
[2025-04-29] MEDS: BACLOFEN 10 MG TABLET PO ×2 (09:17→14:42)
[2025-04-29] MEDS: VITAMIN D 1000 UNIT TAB PO (09:17)
[2025-04-29] MEDS: SODIUM CHLORIDE 0.9 % (FLUSH) 10 ML SYRINGE 5 ML IVF (09:18)
[2025-04-29] MEDS: VANCOMYCIN 1.25 GM/250 ML 1.25 GM/250 ML PIGGYBACK IVPB (10:36)
[2025-04-29] MEDS: ACETAMINOPHEN 325 MG TABLET 650 MG PO (10:50)
[2025-04-29 11:00] VITALS: BP 106/77; PULSE 97; RESP 18; O2SAT 91
--- NOTE | 2025-04-29 12:11 | PM.IMPN1 ---
Assessment and Plan Assessment and plan (1) Toxic metabolic encephalopathy: Problem comment: - sudden onset, resolved with IV fluid rehydration, electrolyte correction, IV antibiotic initiation. Improving Status: Acute (2) Urinary tract infection: Problem comment: - abnormal urine analysis, urine culture pending, blood culture pending Status: Acute (3) Hypocalcemia: Problem comment: - improved with calcium supplementation - etiology not clear, differential includes chronic kidney disease associated hyperparathyroidism, vitamin-D deficiency . Vitamin-D deficiency most likely. Resume vitamin-D. Status: Acute (4) Acute hypokalemia: Problem comment: - improved with potassium supplementation - etiology not clear, possibly related to low magnesium Status: Acute (5) Hypomagnesemia: Problem comment: - improved with magnesium supplementation Monitor Status: Acute (6) Hypophosphatemia: Problem comment: Probably due to vitamin-D deficiency Status: Acute (7) Vitamin D deficiency: Problem comment: Recommend consultation with endocrinology or Nephrology at [place] due to vitamin-D deficiency with hypocalcemia and also recurrent nephrolithiasis Status: Acute (8) Multiple sclerosis: Problem comment: - Spastic quadriparesis, wheelchair dependent - neurogenic bladder - incontinent of stool - baclofen scheduled for muscle spasms Status: Acute (9) Neurogenic bladder: Problem comment: - Anyi catherizes at home. Saenz catheter here Status: Acute (10) Neurogenic bowel: Problem comment: Discussed strategies for managing bowel incontinence, constipation, diarrhea. Status: Acute (11) Chronic anticoagulation: Problem comment: On apixaban 5 mg twice daily for history of PE Status: Acute (12) History of pulmonary embolism: Problem comment: - on chronic anticoagulation. Previously on warfarin now on apixaban Status: Acute (13) Nephrolithiasis: Problem comment: has had multiple procedures (cysto, lithotripsy, stent, dilation). Ongoing management at [place] with repeat lithotripsy on May 15 Status: Acute Plan Continue in hospital for IV antibiotics and management of above medical problems. Pending urine culture and sensitivities. Anticipate discharge to home with possibly tomorrow Total Time Spent Total Time Spent: Total time spent today is 40 minutes in coordination of care and discussing with patient and ongoing evaluation management of complex urinary problems and infection. Subjective Date Seen: 04/29/25 Interval history: Dwain Hinds is a 64 year old man presents with sudden altered mental status. He was in his usual state of health until this morning according to his . He has multiple sclerosis with neurogenic bladder neurogenic bowel. Has chronic suprapubic catheter in place. Requires daily bowel regimen and intermittent digital stimulation for bowel evacuation. Undergoing extensive assessments and interventions at the [facility], [place], [place], related to nephro ureteral lithiasis. Had lithotripsy and ureteral stent placement couple of months ago. Has had hematuria since then. Has been evaluated for this at the [facility] and was told this is to be expected in his situation and condition. Is scheduled for additional assessments and possible additional lithotripsy in mid May 2025. In preparation for this May 15 appointment he had laboratory studies drawn on 04/24/2025, at which time his serum potassium is 4.5, calcium was 8.9, albumin 3.4, and magnesium not reported. Urine Gram stain in late March 2025 remarkable for Gram-positive bacilli. On awakening this morning he seemed more confused. He has minimal use of upper right upper extremity and almost no use of upper left extremity. This morning he high had hardly any use of the right upper extremity. brought him in concerned that he might have had a stroke. By the time he arrived here he had usual use of his right upper extremity. He was more somnolent and more confused today the when at home. On assessment in the emergency department was found to similarly be less interactive. After IV fluids and electrolytes stabilization his mentation normalized. Reportedly his mentation rapidly changes as such when he presents with urinary tract infections and early sepsis. 04/28/2025: Patient seen this morning and able to give some minimal history. Additional history is obtained from his who is his primary caregiver. She indicates that he is substantially better today though not quite back to baseline mental status. We reviewed his history of recent lithotripsy and hematuria. Doctors at [place] had reduced his vitamin-D supplementation due to kidney stone formation. He remains vitamin-D deficient and I have recommended correcting his vitamin-D in an attempt to resolve his multiple other electrolyte problems including low calcium and phosphorus and possibly low magnesium as well. Patient reports no new concerns today. We reviewed his medications in some detail. He is currently on apixaban rather than warfarin. Other medications also reviewed. 04/29/2025: Patient seen with his today. They both feel like he is continuing to improve. His mental status is clearing. He has had no fever. He has a little headache today. No chest pain, dyspnea, abdominal pain. He has not had a bowel movement in about 5 days. Received fluid bolus last night because his urine was quite concentrated with decreased urine output. Urine is clear without obvious blood this morning Exam Narrative: Exam Narrative: He is alert pleasant and appears in no distress. Respirations are clear to auscultation except for occasional basilar crackle. No wheezing. Breathing is unlabored. Cardiovascular: S1, S2, regular rate and rhythm. Abdomen: Bowel sounds active. Abdomen is soft without tenderness or mass. Saenz catheter in place draining a somewhat concentrated yellow urine without gross hematuria. Extremities without edema. Inspection of his lower extremity sewn no signs of trauma or infection. Const: Vital Signs, click to edit/add: Vital Signs - 24 hr 04/28/25 13:00 04/28/25 15:00 04/28/25 15:00 Temperature Pulse Rate [Pulse Oximeter] 109 H Respiratory Rate 24 24 Blood Pressure [Le ft Arm] 103/68 Blood Pressure [Ri ght Arm] Pulse Oximetry 91 Oxygen Delivery Me thod Room Air 04/28/25 15:00 04/28/25 19:00 04/28/25 22:27 Temperature 98.2 F 98.2 F Pulse Rate [Pulse Oximeter] 109 H 107 H 86 Respiratory Rate 24 26 H 20 Blood Pressure [Le ft Arm] 126/82 118/78 Blood Pressure [Ri ght Arm] 120/76 Pulse Oximetry 91 91 91 Oxygen Delivery Me thod Room Air Room Air Room Air 04/28/25 22:30 04/28/25 22:30 04/29/25 04:14 Temperature 98 F Pulse Rate [Pulse Oximeter] 86 93 Respiratory Rate 20 20 22 Blood Pressure [Le ft Arm] 122/76 Blood Pressure [Ri ght Arm] Pulse Oximetry 91 90 Oxygen Delivery Me thod Room Air Room Air 04/29/25 07:00 04/29/25 07:00 04/29/25 07:00 Temperature 97.8 F Pulse Rate [Pulse Oximeter] 93 97 Respiratory Rate 18 18 18 Blood Pressure [Le ft Arm] 113/87 Blood Pressure [Ri ght Arm] Pulse Oximetry 93 93 Oxygen Delivery Me thod Room Air Room Air Documenting provider has reviewed patient's vital signs: yes Labs Labs: Laboratory Results - last 24 hr 04/29/25 06:35 WBC 7.54 RBC 4.82 Hgb 13.5 Hct 42.0 MCV 87 MCH 28 MCHC 32 RDW Coeff of Nas 15.3 Plt Count 262 Neut % (Auto) 76.9 H Lymph % (Auto) 10.6 L [place] % (Auto) 11.4 H Eos % (Auto) 0.7 Baso % (Auto) 0.3 Neut # (Auto) 5.80 Lymph # (Auto) 0.80 L [place] # (Auto) 0.90 Eos # (Auto) 0.05 Baso # (Auto) 0.02 Abs Immat Gran (auto) 0.01 Imm/Tot Granulo (auto) 0.1 INR 1.22 H Sodium 135 Potassium 3.8 Chloride 105 Carbon Dioxide 25 Anion Gap 5 L BUN 9 Creatinine 0.6 Estimated Creat Clear 79.76 Estimated GFR 106 Glucose 111 Lactate 0.5 Calcium 8.5 Ionized Calcium Ruben 1.08 L Phosphorus 2.7 Magnesium 2.2 C-Reactive Protein 12.0 H NT-Pro-B Natriuret Pep 511 H TSH 4.250 H
[2025-04-29] MEDS: CIPROFLOXACIN 500 MG TABLET PO (14:42)
--- NOTE | 2025-04-29 14:42 | PM.DS1 ---
DS: Providers Provider Date Seen: 04/29/25 Date of admission: 04/27/25 23:52 Primary care physician: Wade Donovan MD Admitting Clinician: Andreas Fischer MD Consults: 0 Attending Physician on discharge: Patricio Nieves MD Date of Discharge: 04/29/25 DS: Diagnosis Discharge Diagnosis (1) Toxic metabolic encephalopathy: Status: Acute Problem details: - sudden onset, resolved with IV fluid rehydration, electrolyte correction, IV antibiotic initiation. Improving (2) Urinary tract infection: Status: Acute Problem details: - abnormal urine analysis, urine culture growing Serratia fonticola, resistant to ceftriaxone, susceptible to Cipro. Switched to Cipro (3) Hypocalcemia: Status: Acute Problem details: - improved with calcium supplementation - etiology not clear, differential includes chronic kidney disease associated hyperparathyroidism, vitamin-D deficiency . Vitamin-D deficiency most likely. Resume vitamin-D. (4) Acute hypokalemia: Status: Acute Problem details: - improved with potassium supplementation - etiology not clear, possibly related to low magnesium (5) Hypomagnesemia: Status: Acute Problem details: - improved with magnesium supplementation Monitor (6) Hypophosphatemia: Status: Acute Problem details: Probably due to vitamin-D deficiency (7) Vitamin D deficiency: Status: Acute Problem details: Recommend consultation with endocrinology or Nephrology at [place] due to vitamin-D deficiency with hypocalcemia and also recurrent nephrolithiasis (8) Multiple sclerosis: Status: Acute Problem details: - Spastic quadriparesis, wheelchair dependent - neurogenic bladder - incontinent of stool - baclofen scheduled for muscle spasms (9) Neurogenic bladder: Status: Acute Problem details: - Anyi catherizes at home. Saenz catheter here (10) Neurogenic bowel: Status: Acute Problem details: Discussed strategies for managing bowel incontinence, constipation, diarrhea. (11) Chronic anticoagulation: Status: Acute Problem details: On apixaban 5 mg twice daily for history of PE (12) History of pulmonary embolism: Status: Acute Problem details: - on chronic anticoagulation. Previously on warfarin now on apixaban (13) Nephrolithiasis: Status: Acute Problem details: has had multiple procedures (cysto, lithotripsy, stent, dilation). Ongoing management at [place] with repeat lithotripsy on May 15 DS: Summary Hospital Course Hospital Course: Dwain Hinds is a 64 year old man presents with sudden altered mental status. He was in his usual state of health until this morning according to his . He has multiple sclerosis with neurogenic bladder neurogenic bowel. Has chronic suprapubic catheter in place. Requires daily bowel regimen and intermittent digital stimulation for bowel evacuation. Undergoing extensive assessments and interventions at the [facility], [place], [place], related to nephro ureteral lithiasis. Had lithotripsy and ureteral stent placement couple of months ago. Has had hematuria since then. Has been evaluated for this at the [facility] and was told this is to be expected in his situation and condition. Is scheduled for additional assessments and possible additional lithotripsy in mid May 2025. In preparation for this May 15 appointment he had laboratory studies drawn on 04/24/2025, at which time his serum potassium is 4.5, calcium was 8.9, albumin 3.4, and magnesium not reported. Urine Gram stain in late March 2025 remarkable for Gram-positive bacilli. On awakening this morning he seemed more confused. He has minimal use of upper right upper extremity and almost no use of upper left extremity. This morning he high had hardly any use of the right upper extremity. brought him in concerned that he might have had a stroke. By the time he arrived here he had usual use of his right upper extremity. He was more somnolent and more confused today the when at home. On assessment in the emergency department was found to similarly be less interactive. After IV fluids and electrolytes stabilization his mentation normalized. Reportedly his mentation rapidly changes as such when he presents with urinary tract infections and early sepsis. 04/28/2025: Patient seen this morning and able to give some minimal history. Additional history is obtained from his who is his primary caregiver. She indicates that he is substantially better today though not quite back to baseline mental status. We reviewed his history of recent lithotripsy and hematuria. Doctors at [place] had reduced his vitamin-D supplementation due to kidney stone formation. He remains vitamin-D deficient and I have recommended correcting his vitamin-D in an attempt to resolve his multiple other electrolyte problems including low calcium and phosphorus and possibly low magnesium as well. Patient reports no new concerns today. We reviewed his medications in some detail. He is currently on apixaban rather than warfarin. Other medications also reviewed. 04/29/2025: Patient seen with his today. They both feel like he is continuing to improve. His mental status is clearing. He has had no fever. He has a little headache today. No chest pain, dyspnea, abdominal pain. He has not had a bowel movement in about 5 days. Received fluid bolus last night because his urine was quite concentrated with decreased urine output. Urine is clear without obvious blood this morning Urine culture came back showing Serratia fonticola, resistant to ceftriaxone and susceptible to ciprofloxacin. Patient and are anxious to go home so he will be discharged today Time Spent with Patient Time attestation: Total time spent providing and/or coordinating discharge services: Time spent: Greater than 30 minutes Exam Narrative: Exam Narrative: See dictation from earlier today Const: Vital Signs, click to edit/add: Vital Signs - 24 hr 04/28/25 15:00 04/28/25 15:00 04/28/25 15:00 Temperature Pulse Rate [Pulse Oximeter] 109 H 109 H Respiratory Rate 24 24 24 Blood Pressure [Le ft Arm] Blood Pressure [Ri ght Arm] 120/76 Pulse Oximetry 91 91 Oxygen Delivery Vt thod Room Air Room Air 04/28/25 19:00 04/28/25 22:27 04/28/25 22:30 Temperature 98.2 F 98.2 F Pulse Rate [Pulse Oximeter] 107 H 86 86 Respiratory Rate 26 H 20 20 Blood Pressure [Le ft Arm] 126/82 118/78 Blood Pressure [Ri ght Arm] Pulse Oximetry 91 [facility] 04/28/25 22:30 04/29/25 04:14 04/29/25 07:00 Temperature 98 F Pulse Rate [Pulse Oximeter] 93 93 Respiratory Rate 20 22 18 Blood Pressure [Le ft Arm] 122/76 Blood Pressure [Ri ght Arm] Pulse Oximetry 91 90 Oxygen Delivery Vt thod Room Air Room Air 04/29/25 07:00 04/29/25 07:00 Temperature 97.8 F Pulse Rate [Pulse Oximeter] 97 Respiratory Rate 18 18 Blood Pressure [Le ft Arm] 113/87 Blood Pressure [Ri ght Arm] Pulse Oximetry 93 93 [facility] DS: Data Data Completed and Pending Labs on day of discharge: Labs from last 24 hours 04/29/25 06:35 WBC 7.54 RBC 4.82 Hgb 13.5 Hct 42.0 MCV 87 MCH 28 MCHC 32 RDW Coeff of Nas 15.3 Plt Count 262 Neut % (Auto) 76.9 H Lymph % (Auto) 10.6 L [place] % (Auto) 11.4 H Eos % (Auto) 0.7 Baso % (Auto) 0.3 Neut # (Auto) 5.80 Lymph # (Auto) 0.80 L [place] # (Auto) 0.90 Eos # (Auto) 0.05 Baso # (Auto) 0.02 Abs Immat Gran (auto) 0.01 Imm/Tot Granulo (auto) 0.1 INR 1.22 H Sodium 135 Potassium 3.8 Chloride 105 Carbon Dioxide 25 Anion Gap 5 L BUN 9 Creatinine 0.6 Estimated Creat Clear 79.76 Estimated GFR 106 Glucose 111 Lactate 0.5 Calcium 8.5 Ionized Calcium Ruben 1.08 L Phosphorus 2.7 Magnesium 2.2 C-Reactive Protein 12.0 H NT-Pro-B Natriuret Pep 511 H TSH 4.250 H Preliminary micro results at discharge 04/27/25 18:10 Blood Culture - Preliminary Blood NO GROWTH AFTER 24 HOURS Discharge Plan Discharge Disposition: Home w/ Parent or Adult Date of Admission: 04/27/25 23:52 Attending Provider on Discharge: Cl Nieves Primary Care Provider: Wade Donovan Condition: Stable Anticipated Discharge Date/Time: 04/29/25 14:46 Discharge Medications: New ciprofloxacin HCl 500 mg tablet 500 mg PO BID Qty: 14 0RF Continued atorvastatin 20 mg tablet 20 mg PO HS oxybutynin chloride 5 mg tablet 5 mg PO BID baclofen 10 mg tablet 20 mg PO TID sennosides 25 mg tablet 25 - 50 mg PO HS PRN olopatadine 0.2 % drops 1 drp ophthalmic (eye) BID Rx Instructions: Administer 1 drop into both eyes daily cholecalciferol (vitamin D3) 50 mcg (2,000 unit) capsule 50 mcg PO DAILY methenamine hippurate 1 gram tablet 1 g PO BID polyethylene glycol 3350 [ClearLax] 17 gram powder in packet 17 g PO DAILY PRN apixaban 5 mg tablet 5 mg PO BID modafinil [Provigil] 200 mg tablet 200 mg PO DAILY Discharge Orders: Discharge Order (Routine); Ordered 04/29/25 Ordered By: Cl Nieves Activity Level: Up with assist Discharge Diet: Regular Follow Up Appointments: Wade Donovan MD [Primary Care Provider, Family Practice] Referral Note: Follow-up in 1 week to recheck illness and blood tests including basic metabolic panel, magnesium and phosphorus. Forms: [employer] Info Instructions
[2025-04-29 14:48] VITALS: BP 103/65; PULSE 108; RESP 18; O2SAT 90
[2025-04-29 15:00] VITALS: PULSE 108; RESP 18; O2SAT 90
--- NOTE | 2025-04-29 16:25 | PC.NURSE ---
Nursing Care Hours: [id number] Pt this shift calm and cooperative, alert and oriented to self, place, month. Mild headache treated with tylenol. Up to chair for the day. Total assist with meals. Foely patent and DC'd prior to discharge. Sensitivity came back and pt started on appropriate PO ABX. IV removed for discharge. Pt wheeled self out in auto w/c, to spouse vehicle. Forms signed, questions answered. F/u could not be made here. Pt has appt with primary Tuesday 05/01. Pt left in stable condition.
== END 2025-04-29 16:20 | disposition home or self-care (01) | DRG 698 ==
LOC: ED 17:47 → MEDSURG 23:50
PROVIDERS: Family Medicine; Admitting Provider Internal Medicine; Emergency Provider Emergency Medicine; PCP Family Medicine; Visit Provider Internal Medicine
DX: T83.518A Infection and inflammatory reaction due to other urinary catheter, initial encounter (principal); G92.8 Other toxic encephalopathy; N39.0 Urinary tract infection, site not specified; K59.2 Neurogenic bowel, not elsewhere classified; G35 Multiple sclerosis; N31.9 Neuromuscular dysfunction of bladder, unspecified; N20.0 Calculus of kidney; E83.51 Hypocalcemia; E87.6 Hypokalemia; E83.42 Hypomagnesemia; R41.0 Disorientation, unspecified; R47.81 Slurred speech; Z99.3 Dependence on wheelchair; Z86.73 Personal history of transient ischemic attack (TIA), and cerebral infarction without residual deficits; Z86.711 Personal history of pulmonary embolism; Z79.01 Long term (current) use of anticoagulants; E83.39 Other disorders of phosphorus metabolism; Z87.442 Personal history of urinary calculi; E78.5 Hyperlipidemia, unspecified
CPT/HCPCS: 36415; 70450; 70496; 70498; 71045; 80048; 80061; 80076; 81001; 82306; 82330; 82550; 83605; 83735; 83880; 83970; 84100; 84145; 84443; 84484; 85025; 85027; 85610; 86140; 87040; 87086; 87637; 93005; 99285; A9270; J0613; J0696; J3375; J3475; J3480; J7030; J7050; Q9967

== ENCOUNTER 2025-05-08 11:15 | Outpatient (CLI) | payer MEDICARE, BC, SELFPAY ==
--- NOTE | 2025-05-08 11:00 | CRLHL7_ITS ---
For Patients: As a result of the Century Cures Act, medical imaging exams and procedure reports are released immediately into your electronic medical record. You may view this report before your referring provider. If you have questions, please contact your health care provider. INDICATION: Hematuria. TECHNIQUE: CT abdomen and pelvis urogram without and with 100 cc Isovue 370 IV contrast. Contrast images were obtained in the nephrographic and delayed phases. COMPARISON: 12/24/2024 FINDINGS: KIDNEYS: Right ureteral stent is present in good position. Multiple small calcifications are present throughout the right kidney representing sequela break up of the previously large stone in the right renal pelvis. No hydronephrosis or perinephric stranding. No left-sided renal stones. A few small renal cysts are present on the left and larger cysts are present on the right, as before. No solid renal mass. URINARY BLADDER: Few small calcifications are present within the bladder. These are associated with the bladder wall. OTHER: Chronic scarring within the lung bases. The liver is normal. Gallbladder unremarkable. Splenic calcifications. Adrenal glands within normal limits. Pancreatic atrophy. Atherosclerotic changes. Prostate calcifications. Increased stool within the distal colon. No mechanical bowel obstruction. Appendix is normal. No intra-abdominal or intrapelvic adenopathy. Chronic changes to the left iliac bone. IMPRESSION: 1. Interval placement of right ureteral stent and break-up of large right renal pelvis stone. Multiple small stone fragments remain within the lower pole moiety of the right kidney. No hydronephrosis. 2. Multiple stones within the bladder associated with the bladder wall. Bladder wall is trabeculated with a small right-sided diverticulum. 3. Small left renal cysts and larger right renal cysts. No solid renal mass Please note that all CT scans at this facility use dose modulation, iterative reconstruction, and/or weight-based dosing when appropriate to reduce radiation dose to as low as reasonably achievable. Dictated by Osito Apodaca MD @ 05/10/2025 8:04:07 PM (Electronically Signed)
== END 2025-05-08 11:16 | disposition home or self-care (01) ==
LOC: CT 11:15
PROVIDERS: PCP Family Medicine; Visit Provider Family Medicine
DX: R31.9 Hematuria, unspecified (principal); N20.0 Calculus of kidney; N21.0 Calculus in bladder; N28.1 Cyst of kidney, acquired
CPT/HCPCS: 74178; Q9967